=== PATIENT | female | born 1935 | race Caucasian/White ===

== ENCOUNTER 2024-12-27 10:02 | Inpatient (IN) | payer MEDICARE, SELFPAY ==
[2024-12-27] VITALS (14 sets, daily range): BP systolic 104–137; BP diastolic 54–86; PULSE 70–102; RESP 17–73; TEMP 36.1–36.8; O2SAT 73–100; BMI 39.1
--- NOTE | 2024-12-27 10:32 | PC.NURSE ---
PT ARRIVED BY AMBULANCE WITH C/O ALTERED UPON WAKING AT 0600 TODAY. WAS NORMAL LAST NIGHT AT 2300 PER MEDIC. PT RESPONDING ONLY TO PAIN AT THIS TIME. TURNED SIDE TO SIDE TO STRAIGHTEN LINEN, NO SKIN BREAKDOWN NOTED ON BACK/BUTTOCKS.
--- NOTE | 2024-12-27 10:45 | PC.NURSE ---
DR. FLYNN IN TO SEE PT.
--- NOTE | 2024-12-27 10:48 | EKG_ITS ---
[facility] Test Date: 2024-12-27 Pat Name: SHAN SLAUGHTER Department: Room: - Gender: Female [employer] Bi Developer: : [id number] Requested By: Sanchez Arthur Order Number: [id number] Reading MD: Sanchez Arthur Measurements Intervals [place] Rate: 83 P: 19 MO: 133 QRS: 33 QRSD: 128 T: -13 QT: 405 QTc: 478 Interpretive Statements SINUS RHYTHM WITH OCCASIONAL SUPRAVENTRICULAR PREMATURE COMPLEXES RIGHT BUNDLE BRANCH BLOCK [120+ ms QRS DURATION, UPRIGHT V1, 40+ ms S IN I/aVL/V4/V5/V6] Compared to ECG 02/18/2024 11:43:29 No significant changes /store/S0/[id number]/ecg/[id number].pdf
--- NOTE | 2024-12-27 10:48 | XR_ITS ---
Examination: AP chest single view TECHNIQUE: Portable AP sitting chest single view Date and time: December 27, 2024 11:45 AM, comparison March 19, 2024 INDICATIONS: Coughing beginning 3 days ago. FINDINGS: Cvug-he-dlufhbut heart failure Mild enlargement cardiac contour with prominent vascular congestion and perihilar edema Consider superimposed pneumonia both lungs Prominent osteopenia IMPRESSION: Taev-al-loyjchdz heart failure Consider superimposed pneumonia in both lungs
--- NOTE | 2024-12-27 10:48 | XR_ITS ---
Examination: CT brain head without contrast. 2-D sagittal coronal reconstructions Date and time of exam:December 27, 2024, 11:12 AM Comparison March 19, 2024 INDICATIONS: Altered mental status today CTDI: vol (mGy):53.5 DLP: (mGycm):1036 Technique: Multiple CT axial sections of the brain have been obtained, 5 mm slice thickness. Contrast has not been administered. 2-D sagittal, coronal reconstructions have been obtained Low dose protocols were performed. One or more of the following dose reduction techniques were used; automated exposure control, adjustment of the mA and/or KV according to patient size, use of iterative reconstruction technique. Findings: No significant ventricular enlargement. Intra-axial or extra-axial hemorrhage density is not seen. No mass effect or midline shift Basal cisterns are not remarkable. Fourth ventricle is midline. Cranial vault intact. Chronic right maxillary sinusitis Impression: Negative for acute hemorrhage, mass effect or midline shift Advise clinical correlation and follow-up accordingly
--- NOTE | 2024-12-27 11:07 | PD.EDADULT ---
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 Patient's daughter reported to the EMS that patient was found altered this morning at 6 AM. EMS reported that GCS was 11 and patient was hypoxic as low as around 85% and was placed on 6 L nasal cannula. Patient uses oxygen & BIPAP at home. Patient ambulates with walker and is AO x 3 at baseline. Patient was coughing during examination. Limited history could be taken due to altered mentation and no family at the bedside currently. She has been using vaginal estrogen cream for atrophic vaginitis.Urine appeared cloudy while performing straight cath. Of note, patient was discharged from the hospital in March 2024 after management of acute encephalopathy due to UTI. Called Jg Coffman to ask for further hx. she was hard to awake this morning and trouble recognizing her care givers. she chewed her medicine which is unusual for her last night. She can walk with walker. Per RN, blood glucose was 245. Per chart review: Pmx As above Psx Cholecystectomy, right lumpectomy,distal tonsilectomy, stones removed in 2018 FH intestinal cancer SH Non-smoker, no drinking or alcohol. lives at home with daughter. Emergency person to contact Jg Coffman [phone] Allergies zinc,iodine, sulfa, cefuroxime causes facial swelling Home medications: Levothyroxine 100 mcg once daily, methenamine hippurate 100 mg twice daily, Aspirin 81 mg once a day, vit c 500 mg BID, omeprazole 40 mg once a day, venlafaxine 150 mg, rosuvastatin 5 mg diclofenic sodium topical , lasix 40 mg once a day, metformin 500 mg 2 tabs BID, metoprolol succ er 25 mg once daily, norco 10-325 mg bid as needed,pramipexole 0.25 mg 2 tabs at 10 pm for restless legs Vitals revealed blood pressure 104/54, pulse 74, respiratory rate 17. Rectal temperature was 98.1. Patient saturating 100% on 6 L NC. We ordered 1 L bolus of LR, Zosyn 3.375 g x 1. Stat labs including CBC, CMP, magnesium, phosphorus, lactic acid, chest x-ray, urinalysis, U tox, troponin I, ammonia, ABGs, CT head without contrast, CT chest abdomen pelvis with contrast, chest x-ray along with blood cultures and urine cultures. Will keep the patient n.p.o. and do aspiration precautions. Ordered bedside COVID and flu test with MRSA screen. Differentials include Acute encephalopathy, infection related to pneumonia versus UTI, heart failure exacebration 12:19 patient's caregiver Carrie informed that patient was having trouble breathing last night and has been drinking a lot of water from past couple of days. She denied that patient ever had COVID or flu vaccine. COVID and flu test were negative. She has been feeling nauseous and has been coughing from past couple of days. She stated that she does not had a bowel movement over the weekend. Per caregiver, she did not notice any fever, chills, chest pain, burning in the urine. ABGs revealed pH 7.35, pCO2 75 chronic CO2 retainer, pO2 152, bicarb 41. Chemistry panel was significant for borderline hyperkalemia potassium 5.1, chloride 94, bicarb >40 likely compensatory metabolic alkalosis due to chronic CO2 retention, mild STEVE with BUN 38 and creatinine 1.6, baseline creatinine 0.9. Blood glucose 244, lactic acidosis lactic acid 2.3, phosphorus 2.3 liver enzymes unremarkable. Troponin I was negative. Procalcitonin 0.27. U tox positive for opiates. BNP pending. We ordered breathing treatment and Lasix 40 mg IV x [address] was negative for acute changes. CT chest was significant for pulmonary artery hypertension, mild to moderate heart failure, superimposed bacterial pneumonia and liver cirrhosis with atrophic right kidney staghorn calculi no hydronephrosis. Chest x-ray was significant for mild to moderate heart failure with superimposed pneumonia. EKG showed sinus rhythm with QTc 478 with RBBB.White count 9.9, hemoglobin 10.4. Blood count 53. Urinalysis is consistent with UTI. Patient most likely has acute encephalopathy like related to infection/community-acquired pneumonia and CO2 retention. She was also found to have STEVE with borderline hyperkalemia,hypophosphatemia and lactic acidosis. She will need to be admitted to the hospital for further evaluation and management. 12:43 Discussed case with interrelated special education teacher hospitalist team regarding admission. Discussed patient's ED course, exam findings, labs and radiology results. Hospitalist team agreed to accept the patient for admission. MD complaint: AMS Onset (ago): day(s) (6:00 AM ) Associated symptoms: confusion, cough and shortness of breath Related Data Home Medications ?Medication ?Instructions ?Recorded ?Confirmed levothyroxine 75 mcg tablet 100 mcg PO QAM 04/18/20 03/19/24 methenamine hippurate 1 gram tablet 1 g PO BID 04/18/20 03/19/24 omeprazole 40 mg capsule,delayed 40 mg PO QDAY 06/04/21 03/19/24 release rosuvastatin 5 mg tablet 5 mg PO HS 06/04/21 03/19/24 venlafaxine 150 mg 150 mg PO HS 06/04/21 03/19/24 capsule,extended release 24 hr furosemide 40 mg tablet 40 mg PO QAM 08/27/22 03/19/24 ascorbic acid (vitamin C) 500 mg 500 mg PO BID 03/19/24 03/19/24 tablet (Vitamin C) aspirin 81 mg tablet 81 mg PO QDAY 03/19/24 03/19/24 diclofenac sodium 1 % topical gel 2 g topical QID 03/19/24 03/19/24 magnesium 500 mg tablet 500 mg PO QDAY 03/19/24 03/19/24 Previous Rx's ?Medication ?Instructions ?Recorded estradiol 10 mcg vaginal insert See Rx Instructions .Route 03/22/24 (Imvexxy Maintenance Pack) .COMPLEX #8 inserts clonazepam 0.5 mg tablet 0.5 mg PO HS #14 tabs 03/25/24 metoprolol succinate 25 mg 25 mg PO QDAY #30 tabs 03/25/24 tablet,extended release 24 hr Allergies Allergy/AdvReac Type Severity Reaction Status Date / Time cefuroxime Allergy Intermediate Swelling Verified 12/27/24 11:13 of Lip/Tongue/Throat zinc Allergy Intermediate Rash Verified 12/27/24 11:13 iodine Allergy Unknown Verified 12/27/24 11:13 shellfish derived Allergy Unknown Verified 12/27/24 11:13 Sulfa (Sulfonamide Allergy Unknown Verified 12/27/24 11:13 Antibiotics) Review of Systems Review of Systems Systems Reviewed: All systems reviewed, normal except as documented Past Medical History Past Medical History CARDIAC: Positive Cardiac Disorders, Coronary Artery Disease, Hypercholesterolemia and Hypertension RESPIRATORY: Positive Pulmonary Fibrosis GASTROINTESTINAL: Positive Gastrointestinal Disorders, Gall Bladder Disease, Gastroesophageal Reflux Disease and Obesity GENITOURINARY: Positive Genitourinary Disorders and Kidney Stones REPRODUCTIVE: Positive Breast Cancer MUSCULOSKELETAL: Positive Musculoskeletal Disorders ENDOCRINE: Positive Endocrine Disorders and Hypothyroidism PSYCHO/SOCIAL: Positive Depression and Anxiety OTHER HISTORY: Positive Cancer and Breast Cancer Family History FAMILY HISTORY: Positive Family Cancer; Negative Family Psychiatric Problems, Family Respiratory Disorders, Family Cardiac Disorders, Family Gastrointestinal Problems, Family Surgery or Family Anesthesia Reaction Surgical History SURGICAL: Positive Tonsillectomy, Abdominal Surgery and Lumpectomy; Negative Cardiac Surgery, Open Heart Surgery, Coronary Artery Bypass Graft, Valve Replacement, Vascular Surgery, Coronary Stent, Cardiac Catheterization, Pacemaker, Angiogram, Auto Implanted Cardiovert Defib, Carotid Endarterectomy, Endocrine Surgery, Thyroidectomy, Ear Surgery, Tympanostomy Tube, Eye Surgery, Nose Surgery, Oral Surgery, Adenoidectomy, Cochlear Implant, Corneal Transplant, Throat Surgery, Tracheostomy, Gastric Bypass Surgery, Gastrostomy, Bowel Surgery, Nephrectomy, Transurethral Resection, Joint Replacement, Amputation, Open Reduction Internal Fixation, Arthroscopy, Neurologic Surgery, Brain Shunt, Mastectomy, Hysterectomy, Tubal Ligation or Section Social History SMOKING STATUS: Never smoker SECOND HAND EXPOSURE: No ED Exam Narrative Physical exam: GENERAL APPEARANCE: Patient is altered opening eyes sponataneously.GCS 11. baseline AOx3 .Sat well on 6 L NC HEENT: NC, AT. Dry mucus membrane. EOMI, clear conjunctiva, oropharynx clear. NECK: Supple without lymphadenopathy. No stiffness or restricted ROM. HEART: Regular rate and regular rhythm, normal S1/S2, no m/r/g LUNGS: B/L dec BS on bases without wheezing ABDOMEN: Soft, nontender, nondistended with good bowel sounds heard. BACK: No CVAT, no obvious deformity. EXTREMITIES: Without cyanosis, clubbing or edema. NEUROLOGICAL: Grossly nonfocal. She is altered GCS 11. CN not formally tested but appear grossly intact. ambulates with walker Skin: Warm and dry without any rash. 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 Vitals revealed blood pressure 104/54, pulse 74, respiratory rate 17. Rectal temperature was 98.1. Patient saturating 100% on 6 L NC. We ordered 1 L bolus of LR, Zosyn 3.375 g x 1. Stat labs including CBC, CMP, magnesium, phosphorus, lactic acid, chest x-ray, urinalysis, U tox, troponin I, ammonia, ABGs, CT head without contrast, CT chest abdomen pelvis with contrast, chest x-ray along with blood cultures and urine cultures. Will keep the patient n.p.o. and do aspiration precautions. Ordered bedside COVID and flu test with MRSA screen. Differentials include Acute encephalopathy, infection related to pneumonia versus UTI, heart failure exacebration 12:19 patient's caregiver Carrie informed that patient was having trouble breathing last night and has been drinking a lot of water from past couple of days. She denied that patient ever had COVID or flu vaccine. COVID and flu test were negative. She has been feeling nauseous and has been coughing from past couple of days. She stated that she does not had a bowel movement over the weekend. Per caregiver, she did not notice any fever, chills, chest pain, burning in the urine. ABGs revealed pH 7.35, pCO2 75 chronic CO2 retainer, pO2 152, bicarb 41. Chemistry panel was significant for borderline hyperkalemia potassium 5.1, chloride 94, bicarb >40 likely compensatory metabolic alkalosis due to chronic CO2 retention, mild STEVE with BUN 38 and creatinine 1.6, baseline creatinine 0.9. Blood glucose 244, lactic acidosis lactic acid 2.3, phosphorus 2.3 liver enzymes unremarkable. Troponin I was negative. Procalcitonin 0.27. U tox positive for opiates. BNP pending. We ordered breathing treatment and Lasix 40 mg IV x [address] was negative for acute changes. CT chest was significant for pulmonary artery hypertension, mild to moderate heart failure, superimposed bacterial pneumonia and liver cirrhosis with atrophic right kidney staghorn calculi no hydronephrosis. Chest x-ray was significant for mild to moderate heart failure with superimposed pneumonia. EKG showed sinus rhythm with QTc 478 with RBBB.White count 9.9, hemoglobin 10.4. Blood count 53. Urinalysis is consistent with UTI. Patient most likely has acute encephalopathy like related to infection/community-acquired pneumonia and CO2 retention. She was also found to have STEVE with borderline hyperkalemia,hypophosphatemia and lactic acidosis. She will need to be admitted to the hospital for further evaluation and management. 12:43 Discussed case with interrelated special education teacher hospitalist team regarding admission. Discussed patient's ED course, exam findings, labs and radiology results. Hospitalist team agreed to accept the patient for admission. Quality Measures none Orders Category Date Time Status Aspiration precautions ONCE Care 12/27/24 10:52 Active Bedside COVID-19 Antigen Test NOW Care 12/27/24 11:16 Active Bedside Influenza A&B Antigen Test NOW Care 12/27/24 11:17 Completed COVID-19 Screening Questionnaire NOW Care 12/27/24 12:19 Active Bridge Builder Q4H START 00 Care 12/27/24 11:18 Active Decision to Admit X1 Care 12/27/24 12:19 Active EKG (ED ONLY) *Do not use* NOW Care 12/27/24 10:49 Completed [place] Routine Care 12/27/24 11:18 Ordered In and Out Catheter X1 Care 12/27/24 11:18 Completed Insert IV NOW Care 12/27/24 11:14 Completed NPO NOW Care 12/27/24 10:52 Active Strict Intake and Output Routine Care 12/27/24 10:50 Ordered Diet NPO (NOW) Diet 12/27/24 10:[address] chest abdomen pelvis wo Stat Exams 12/27/24 11:[address] head/brain wo con Stat Exams 12/27/24 10:48 Completed CXRP [XR chest 1V portable] Stat Exams 12/27/24 10:48 Completed EKG (ED Only) Stat Exams 12/27/24 10:48 Draft ABG [Arterial Blood Gas] Stat Lab 12/27/24 11:45 Completed Ammonia Stat Lab 12/27/24 11:00 Completed BNP [B-Type Natriuretic Peptide] Stat Lab 12/27/24 11:00 Completed Blood Culture (Lab) Stat Lab 12/27/24 11:00 Received CBC Stat Lab 12/27/24 11:00 Completed CMP [Comprehensive Metabolic Panel] Stat Lab 12/27/24 11:00 Completed Drug Screen,Urine Stat Lab 12/27/24 10:50 Completed INR [Prothrombin Time with INR] Stat Lab 12/27/24 11:00 Completed Lactate (Lactic Acid) Stat Lab 12/27/24 11:00 Results MRSA Nasal Screen Stat Lab 12/27/24 11:17 Ordered Mag [Magnesium] Stat Lab 12/27/24 11:00 Completed PTT [Partial Thromboplastin Time] Stat Lab 12/27/24 11:00 Completed Phosphorous Stat Lab 12/27/24 11:00 Completed Procalcitonin Stat Lab 12/27/24 11:00 Completed Troponin I Stat Lab 12/27/24 11:00 Completed Urinalysis Stat Lab 12/27/24 10:50 Completed Urine Culture Stat Lab 12/27/24 10:50 Received Albuterol/Ipratr Rt Sravani [Duoneb Rt Sravani] Med 12/27/24 11:54 Discontinued 3 ml INH X1 ONE Furosemide Inj [Lasix Inj] Med 12/27/24 12:18 Discontinued 40 mg IVP X1 ONE Ondansetron Inj [Zofran Inj] Med 12/27/24 12:27 Discontinued 4 mg IV X1 ONE Piper/Tazo 3.375 gm Premix [Zosyn] Med 12/27/24 11:11 Discontinued 3.375 gm in 50 ml IV X1 Ringers Lactated 1000 ml [Lactated Ringers] 1,000 ml Med 12/27/24 11:09 Discontinued IV 999 mls/hr Oxygen Delivery NOW RT 12/27/24 10:48 Active Vital Signs Vital signs: Vital Signs Temperature 98.1 F 12/27/24 10:09 Pulse Rate 74 12/27/24 10:09 Respiratory Rate 17 12/27/24 10:09 Blood Pressure 104/54 L 12/27/24 10:09 Pulse Oximetry (%) 100 12/27/24 10:09 Oxygen Delivery Method Nasal Cannula 12/27/24 10:09 Oxygen Flow Rate 6 12/27/24 10:09 Discharge Plan Plan Patient Disposition: Admit Acute Care w/in Hospital Prescriptions/Referrals Prescriptions/Med Rec: No Action levothyroxine 75 mcg Tablet 100 mcg PO QAM Rx Instructions: pt now taking 100 MCG methenamine hippurate 1 gram tablet 1 g PO BID Patient Comments: TAKE 1 TABLET BY MOUTH TWICE A DAY WITH 500 MG OF VITAMIN C Rx Instructions: TAKE 1 TABLET BY MOUTH TWICE A DAY WITH 500 MG OF VITAMIN C venlafaxine 150 mg capsule,extended release 24hr 150 mg PO HS omeprazole 40 mg Capsule,Delayed Release(Dr/Ec) 40 mg PO QDAY rosuvastatin 5 mg Tablet 5 mg PO HS aspirin 81 mg Tablet 81 mg PO QDAY ascorbic acid (vitamin C) [Vitamin C] 500 mg Tablet 500 mg PO BID diclofenac sodium 1 % Gel 2 g TOPICAL QID Rx Instructions: apply to single elbow, wrist or hand; for hand includes palm/fingers/back of hand magnesium 500 mg Tablet 500 mg PO QDAY Imvexxy Maintenance Pack 10 mcg insert See Rx Instructions .ROUTE .COMPLEX Qty: 8 4RF Rx Instructions: 10 mcg Insert 1 tablet intravaginally daily for 2 weeks, followed by twice weekly. metoprolol succinate 25 mg Tablet Extended Release 24 Hr 25 mg PO QDAY Qty: 30 0RF clonazepam 0.5 mg tablet 0.5 mg PO HS Qty: 14 0RF furosemide 40 mg tablet 40 mg PO QAM Patient Comments: TAKE 1 TABLET BY MOUTH EVERY DAY IN THE MORNING Problem List Clinical Impression: Altered mental status, Acute dyspnea, Community acquired pneumonia Patient/Caregiver Discharge Instructions Print Language: Tamazight Stand Alone Forms: [employer] Award Info., Patient Portal Info Letter MDM Narrative MDM hospital course (for use when minimal MDM required): This patient is a 89-year-old female with past medical history of kidney stones, chronic constipation, hypothyroidism, 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 Vitals revealed blood pressure 104/54, pulse 74, respiratory rate 17. Rectal temperature was 98.1. Patient saturating 100% on 6 L NC. We ordered 1 L bolus of LR, Zosyn 3.375 g x 1. Stat labs including CBC, CMP, magnesium, phosphorus, lactic acid, chest x-ray, urinalysis, U tox, troponin I, ammonia, ABGs, CT head without contrast, CT chest abdomen pelvis with contrast, chest x-ray along with blood cultures and urine cultures. Will keep the patient n.p.o. and do aspiration precautions. Ordered bedside COVID and flu test with MRSA screen. Differentials include Acute encephalopathy, infection related to pneumonia versus UTI, heart failure exacebration 12:19 patient's caregiver Carrie informed that patient was having trouble breathing last night and has been drinking a lot of water from past couple of days. She denied that patient ever had COVID or flu vaccine. COVID and flu test were negative. She has been feeling nauseous and has been coughing from past couple of days. She stated that she does not had a bowel movement over the weekend. Per caregiver, she did not notice any fever, chills, chest pain, burning in the urine. ABGs revealed pH 7.35, pCO2 75 chronic CO2 retainer, pO2 152, bicarb 41. Chemistry panel was significant for borderline hyperkalemia potassium 5.1, chloride 94, bicarb >40 likely compensatory metabolic alkalosis due to chronic CO2 retention, mild STEVE with BUN 38 and creatinine 1.6, baseline creatinine 0.9. Blood glucose 244, lactic acidosis lactic acid 2.3, phosphorus 2.3 liver enzymes unremarkable. Troponin I was negative. Procalcitonin 0.27. U tox positive for opiates. BNP pending. We ordered breathing treatment and Lasix 40 mg IV x [address] was negative for acute changes. CT chest was significant for pulmonary artery hypertension, mild to moderate heart failure, superimposed bacterial pneumonia and liver cirrhosis with atrophic right kidney staghorn calculi no hydronephrosis. Chest x-ray was significant for mild to moderate heart failure with superimposed pneumonia. EKG showed sinus rhythm with QTc 478 with RBBB.White count 9.9, hemoglobin 10.4. Blood count 53. Urinalysis is consistent with UTI. Patient most likely has acute encephalopathy like related to infection/community-acquired pneumonia and CO2 retention. She was also found to have STEVE with borderline hyperkalemia,hypophosphatemia and lactic acidosis. She will need to be admitted to the hospital for further evaluation and management. 12:43 Discussed case with interrelated special education teacher hospitalist team regarding admission. Discussed patient's ED course, exam findings, labs and radiology results. Hospitalist team agreed to accept the patient for admission. Medication Administration(s) Medication Administration History Discontinued Medications Albuterol/Ipratropium (Albuterol/Ipratropium (Duoneb) Rt Sravani 3 Ml Nebu) 3 ml INH X1 ONE Stop: 12/27/24 11:55 Last Admin: 12/27/24 12:34 Dose: 3 ml Documented By: JOSSY Furosemide (Furosemide Inj 10 Mg/Ml 4ml Vial) 40 mg IVP X1 ONE Stop: 12/27/24 12:19 Last Admin: 12/27/24 12:33 Dose: 40 mg Documented By: KENYA Lactated Ringer's (Lactated Ringers) 1,000 mls @ 999 mls/hr IV .Q1H1M ONE Stop: 12/27/24 12:09 Last Admin: 12/27/24 12:48 Dose: Not Given Documented By: NAKUL Non-Admin Reason: Cancelled by Provider Piperacillin/Tazobactam/Dextrose (Zosyn) 3.375 gm in 50 mls @ 100 mls/hr IV X1 ONE Stop: 12/27/24 11:40 Last Infusion: 12/27/24 12:55 Dose: Infused Documented By: Admin: 12/27/24 12:20 Dose: 100 mls/hr Documented By: KENYA Ondansetron HCl (Ondansetron Inj 2 Mg/Ml Inj 2 Ml) 4 mg IV X1 ONE; Protocol Stop: 12/27/24 12:28 Diagnosis Differential Diagnosis ED Complaint MDM: Acute enceph, infection related to pneumonia vs UTI, heart fail, Pulm HTN
[2024-12-27 11:15] LABS: Lactate (Lactic Acid) 2.3 mMol/L (0.4-2.0)
[2024-12-27 11:19] LABS: Collection Type, Urine Clean Catch
--- NOTE | 2024-12-27 11:21 | XR_ITS ---
Examination: CT chest, without intravenous contrast. CT abdomen, without intravenous contrast. CT pelvis, without intravenous contrast. 2-D sagittal and coronal reconstructions. 3-D reconstructions. Date and time of exam:December 27, 2024 1123 hours, comparison made 2022 INDICATIONS: Altered mental status, nonresponsive today, coughing 3 days CTDI vol (mgy) 20 DLP (MGycm)[id number] Technique: Multiple CT images, 3.0 mm slice thickness, obtained chest, abdomen, pelvis, with the high-resolution 64 slice scanner.. Sagittal and coronal 2-D reconstructions are obtained. 3-D reconstructions Low dose protocols were performed. One or more of the following dose reduction techniques were used; automated exposure control, adjustment of the mA and/or KV according to patient size, use of iterative reconstruction technique. Findings: Thoracic aortic calcification no aneurysmal dilatation Enlargement main pulmonary artery segment 39 mm Moderate calcification left anterior descending coronary artery Prominent vascular congestion with perihilar edema and likely superimposed bilateral pneumonia No visualized liver or splenic lesions Liver is irregular in contour, absent gallbladder No pancreatic or adrenal mass Atrophic right kidney with renal cortical thinning and multiple staghorn right renal calculi No hydronephrosis or ureteral calculi Aortic calcification no aneurysmal dilatation No pericecal inflammatory change Colonic diverticulosis, no diverticulitis Contracted urinary bladder Severe osteopenia IMPRESSION: Pulmonary artery hypertension Mild to moderate heart failure Superimposed bilateral pneumonia 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
[2024-12-27 11:36] LABS: Ammonia 18 uMol/L (11-32); Basophils % (Auto) 0 % (0-2.5); Eosinophils # (Auto) 0.5 Thou/mm3 (0.0-0.5); Eosinophils % (Auto) 5 % (0-10); Hematocrit 33.8 % (36.0-46.0); Hemoglobin 10.4 g/dL (12.0-16.0); Immature Granulocytes % (Auto) 2 % (0-0); Immature Granulocytes Auto 0.22 Thou/mm3 (0.00-0.00); Lymphocytes # (Auto) 1.3 Thou/mm3 (1.0-4.8); Lymphocytes % (Auto) 13 % (10-50); Mean Corpuscular HGB Conc 30.8 g/dl (31.0-37.0); Mean Corpuscular Hemoglobin 29.1 pg (25.0-35.0); Mean Corpuscular Volume 94 fL (80-100); Monocytes # (Auto) 0.9 Thou/mm3 (0.0-0.8); Monocytes % (Auto) 9 % (0-12); Neutrophils # (Auto) 6.9 Thou/mm3 (1.8-7.7); Neutrophils % (Auto) 70 % (37-80); Nucleated Red Blood Cell # 0.02 Thou/mm3 (0.00-0.00); Nucleated Red Blood Cell % 0 /100 WBC (0); Platelet Count 253 Thou/mm3 (140-440); RDW Standard Deviation 52.1 fL (36.4-46.3); Red Blood Count 3.58 Miln/mm3 (4.00-5.20); White Blood Count 9.9 Thou/mm3 (3.6-11.0)
[2024-12-27 11:49] LABS: Base Excess 13 (-3-3); HCO3 41 mEq/L (20-26); Inspired O2, VO2 Liters 6 L/min; O2 Saturation 100 % (91-98); PCO2 75 mmHg (32.0-48.0); PO2 152 mmHg (83-108); pH, Arterial 7.35 (7.35-7.45)
[2024-12-27 11:49] LABS: Amphetamine/Methamp Scrn,U Negative (Negative); Barbiturate Screen,Urine Negative (Negative); Benzodiazepines Screen,Urine Negative (Negative); Benzoylecgonine Screen, Ur Negative (Negative); Fentanyl Screen,Urine Negative (Negative); Opiate Screen,Urine Positive (Negative); THC Screen,Urine Negative (Negative)
[2024-12-27 11:50] LABS: Allen Test Performed/OK; Puncture Site Right Radial
[2024-12-27 11:50] LABS: Alanine Aminotransferase 18 U/L (10-49); Albumin, Serum 4.1 gm/dL (3.4-4.8); Albumin/Globulin Ratio 1.5 (1.2-2.2); Alkaline Phosphatase 65 U/L (46-116); Anion Gap 3 (7-16); Aspartate Amino Transferase 22 U/L (0-34); BUN/Creatinine Ratio 24 Ratio (12-20); Bilirubin,Total < 0.2 mg/dL (0.3-1.2); Blood Urea Nitrogen 38 mg/dL (9-23); Calcium 9.9 mg/dL (8.3-10.6); Calcium (Corrected) 9.9 mg/dL (8.5-10.1); Carbon Dioxide > 40.0 mMol/L (20.0-31.0); Chloride 94 mMol/L (98-107); Creatinine (Component) 1.6 mg/dL (0.6-1.3); Estimated Creatinine Clearance 31.6 mL/min (>60); Globulin 2.8 gm/dL (2.3-3.5); Glucose 244 mg/dL (74-106); Magnesium 2.4 mg/dL (1.6-2.6); Osmolality,Calculated 290 (275-295); Phosphorous 2.3 mg/dL (2.4-5.1); Potassium 5.1 mMol/L (3.4-5.1); Procalcitonin 0.27 ng/ml (0.0-0.49); Sodium 137 mMol/L (136-145); Total Protein 6.9 gm/dL (5.7-8.2); Troponin I < 0.020 ng/mL (0.0-0.045); eGFR 31 See Note
[2024-12-27] MEDS: PIPER/TAZO 3.375 GM PREMIX 3.375 GM/50 ML BAG IV (12:20)
[2024-12-27] MEDS: FUROSEMIDE INJ 10 MG/ML 4ML VIAL 40 MG IVP (12:33)
[2024-12-27] MEDS: ALBUTEROL/IPRATROPIUM (Duoneb) RT SOL 3 ML NEBU INH (12:34)
[2024-12-27 12:48] LABS: Bacteria,Urine 2+; Bilirubin,Urine Negative (Negative); Blood,Urine 1+ (Negative); Color,Urine Yellow (Lt Yel-Yel); Glucose, Urine Negative (Negative); Ketones,Urine Negative (Negative); Leukocyte Esterase,Urine Positive (Negative); Nitrite,Urine Positive (Negative); Protein,Urine 1+ (Neg - Trace); RBC,Urine 32 /hpf (0-3); Specific Gravity,Urine 1.022 (1.001-1.035); Squamous Epithelial Cell,Urine 56 /hpf (0-5); Transitional Epi Cells,Urine 6 /hpf (0-5); Urobilinogen,Urine Negative mg/dL (0.0-1.0); WBC,Urine 695 /hpf (0-5)
[2024-12-27 12:55] LABS: INR 0.9 (0.9-1.3); Partial Thromboplastin Time 23.1 Seconds (22.0-36.0); Prothrombin Time 10.2 Seconds (9.0-12.2)
--- NOTE | 2024-12-27 12:55 | PC.NURSE ---
PT'S NEPHEW IN ROOM AND DR. FLYNN INFORMED
[2024-12-27 13:08] LABS: B-Type Natriuretic Peptide 70 pg/mL (0-100)
[2024-12-27 13:11] LABS: Clarity,Urine Turbid (Clear/Hazy)
--- NOTE | 2024-12-27 13:38 | PD.RESHP ---
Documentation for date of: 12/27/24 [facility] History of Present Illness Chief complaint: Altered mental status History of present illness: 89-year-old female with past medical history of hypothyroidism, recurrence UTIs, COPD with CPAP use at night and 2 L during the day, right breast cancer status postlumpectomy, chronic back pain, type 2 diabetes, GERD, depression, pulmonary arterial hypertension, HFpEF with grade 1 diastolic dysfunction presenting to the ED on 12/27 with altered mental status. Patient awakens on verbal command by opening eyes; however, unable to understand exactly what she is saying. Patient's nephew Jg, who is her medical decision-maker, is bedside and provided some history. Per nephew, patient lives alone and has 24-hour care for about 7 years now secondary to difficulty ambulating from chronic back pain. Patient apparently has been at her normal baseline, talking and recognizing family members; however, this morning she was completely different and not answering and not recognizing her family's questions. Nephew denies any previous history of sick contacts, recent illness, fever/chills that the patient was reporting prior to this presentation. Medical history: As stated above Surgical history: Unknown at this time Allergies: Cefuroxime causes angioedema, zinc causes rash, iodine, shellfish, sulfa Medications: Pending official med rec Pending history: Noncontributory Social history: Patient lives alone, 24-hour care for 7 years, denies any tobacco/alcohol or illicit drug use. ROS: Unable to assess at this time due to patient's mental status In the ED, patient presented somnolent with blood pressure 104/54, heart rate 74, respiratory 17, afebrile satting 100 on 6 nasal cannula. Pertinent findings include WBC 9.9, hemoglobin 10.4 ABG shows pH of 7.35 with PCO2 of 75, pO2 of 152 and bicarb of 41, creatinine 1.6, BUN 38 lactic acid 2.3, phosphorus 2.3, troponin less than 0.020, BNP 70 urine cultures will be reordered as it is a contaminated sample, U tox positive for opiates. Chest x-ray shows mild to moderate heart failure and superimposed pneumonia in both lungs, head CT with no acute findings, CTA chest/abdomen/pelvis shows PAH, mild to moderate heart failure, superimposed bilateral pneumonia, primary hepatocellular disease, atrophic right kidney with staghorn calculi but no hydronephrosis. EKG shows sinus rhythm with occasional supraventricular PVCs. Patient will be admitted for acute encephalopathy secondary to acute hypercapnic respiratory failure from pulmonary arterial hypertension versus congestive heart failure exacerbation and sepsis secondary to pneumonia and UTI. Exam Vital Signs Temp Pulse Resp BP Pulse Ox O2 Del Method O2 Flow Rate 98.3 F 79 18 129/66 100 Oxy Mask 6 12/27/24 10:40 12/27/24 12:33 12/27/24 11:00 12/27/24 12:33 12/27/24 11:20 12/27/24 11:00 12/27/24 11:20 Narrative Exam Physical Exam: GENERAL: Opens eyes on command, frail-appearing, obese, appears stated age HEENT: NC/AT. Moist mucosa. PERRLA CARDIO: Heart RRR, no obvious murmurs, no JVD. PULM: No coughing on BiPAP saturating 89-93. Lungs CTA B/L other than sporadic crackles GI: Abdomen soft, appears to be tender diffusely with patient grimacing, +BS. URO/BANNER PAINTER: +Queen catheter draining yellow urine SKIN/MSK/EXT: +1 pitting edema bilateral lower extremities up to shins. No wounds/discoloration/rashes/amputations noted. +Pedal pulses present B/L. NEURO: Oriented x0. GCS 10 E(3) V(2) M(5) Results: Labs 12/29/24 05:36 12/29/24 05:36 Labs: Short CBC 12/27/24 Range/Units 11:00 WBC 9.9 (3.6-11.0) Thou/mm3 Hgb 10.4 L (12.0-16.0) g/dL Hct 33.8 L (36.0-46.0) % Plt Count 253 (140-440) Thou/mm3 BMP 12/27/24 11:00 Sodium 137 Potassium 5.1 Chloride 94 L Carbon Dioxide > 40.0 H BUN 38 H Creatinine 1.6 H Glucose 244 H Calcium 9.9 Cardiac Enzymes 12/27/24 Range/Units 11:00 Troponin I < 0.020 (0.0-0.045) ng/mL Liver Function 12/27/24 Range/Units 11:00 Total Bilirubin < 0.2 L (0.3-1.2) mg/dL AST 22 (0-34) U/L ALT 18 (10-49) U/L Alkaline Phosphatase 65 (46-116) U/L Albumin 4.1 (3.4-4.8) gm/dL Urine 12/27/24 Range/Units 10:50 Urine Color Yellow (Lt Yel-Yel) Urine Clarity Turbid A (Clear/Hazy) Urine pH 6.0 (5.0-7.0) Ur Specific [place] 1.022 (1.001-1.035) Urine Protein 1+ A (Neg - Trace) Urine Glucose (UA) Negative (Negative) ABG Interpretation ABG results: 12/27/24 11:45 ABG pH 7.35 ABG pCO2 75 H* ABG pO2 152 H ABG HCO3 41 H ABG O2 Saturation 100 H ABG Base Excess 13 H Quality Measures Quality Measures none Advance care planning discussed with:: legal surragate (Patient's nephew, Jg Coffman) Medications Home Medications and Allergies Home Medications ?Medication ?Instructions ?Recorded ?Confirmed ?Type levothyroxine 75 mcg tablet 100 mcg PO QAM 04/18/20 12/27/24 History methenamine hippurate 1 gram tablet 1 g PO BID 04/18/20 12/27/24 History omeprazole 40 mg capsule,delayed 40 mg PO QDAY 06/04/21 12/27/24 History release rosuvastatin 5 mg tablet 10 mg PO HS 06/04/21 12/27/24 History venlafaxine 150 mg 150 mg PO HS 06/04/21 12/27/24 History capsule,extended release 24 hr furosemide 40 mg tablet 40 mg PO QAM 08/27/22 12/27/24 History ascorbic acid (vitamin C) 500 mg 500 mg PO BID 03/19/24 12/27/24 History tablet (Vitamin C) aspirin 81 mg tablet 81 mg PO QDAY 03/19/24 12/27/24 History diclofenac sodium 1 % topical gel 2 g topical QID 03/19/24 12/27/24 History magnesium 500 mg tablet 1,000 mg PO QDAY 03/19/24 12/27/24 History calcium 600 mg (as 0.5 tab PO BID 12/27/24 12/27/24 History carbonate)-vitamin D3 5 mcg (200 unit) tablet (Calcium 600 + D(3)) cranberry 500 mg capsule 1,000 mg PO QDAY 12/27/24 12/27/24 History glimepiride 2 mg tablet 2 mg PO BID 12/27/24 12/27/24 History hydrocodone 10 mg-acetaminophen 1 tab PO Q12H PRN pain 12/27/24 12/27/24 History 325 mg tablet lactobacillus comb no.10 20 20,000 mmu cells PO QDAY 12/27/24 12/27/24 History billion cell capsule (Probiotic) metformin 500 mg tablet 1,000 mg PO BID 12/27/24 12/27/24 History pramipexole 0.5 mg tablet 0.5 mg PO HS 12/27/24 12/27/24 History Allergies Allergy/AdvReac Type Severity Reaction Status Date / Time cefuroxime Allergy Intermediate Swelling Verified 12/27/24 11:13 of Lip/Tongue/Throat zinc Allergy Intermediate Rash Verified 12/27/24 11:13 iodine Allergy Unknown Verified 12/27/24 11:13 shellfish derived Allergy Unknown Verified 12/27/24 11:13 Sulfa (Sulfonamide Allergy Unknown Verified 12/27/24 11:13 Antibiotics) Visit Medications Acetaminophen (Acetaminophen 325 Mg Tablet) 650 mg PO Q6H PRN PRN Reason: Pain 1-3 and/or Fever >100.1 Stop: 01/26/25 13:30 Hydrocodone Bitart/Acetaminophen (Hydrocodone/Apap 10/325 Tab) 1 tab PO Q4HR PRN PRN Reason: PAIN SCALE 7-10 (Severe Stop: 01/01/25 13:36 Heparin Sodium (Porcine) (Heparin Sod Inj 5000 Unit/Ml Vial) 5,000 unit SC Q12HR LISETTE Stop: 01/10/25 20:59 Ondansetron HCl (Ondansetron Inj 2 Mg/Ml Inj 2 Ml) 4 mg IV Q6H PRN; Protocol PRN Reason: NAUSEA OR VOMITING Stop: 01/26/25 13:30 Oxycodone/Acetaminophen (Oxycodone/Apap 5/325 Tablet) 1 tab PO Q6H PRN PRN Reason: PAIN SCALE 4-6 (Moderate Stop: 01/01/25 13:36 Sennosides (Senna Tablet) 1 tab PO QDAY LISETTE; Protocol Stop: 01/27/25 08:59 Discontinued Medications Albuterol/Ipratropium (Albuterol/Ipratropium (Duoneb) Rt Sravani 3 Ml Nebu) 3 ml INH X1 ONE Stop: 12/27/24 11:55 Last Admin: 12/27/24 12:34 Dose: 3 ml Furosemide (Furosemide Inj 10 Mg/Ml 4ml Vial) 40 mg IVP X1 ONE Stop: 12/27/24 12:19 Last Admin: 12/27/24 12:33 Dose: 40 mg Lactated Ringer's (Lactated Ringers) 1,000 mls @ 999 mls/hr IV .Q1H1M ONE Stop: 12/27/24 12:09 Last Admin: 12/27/24 12:48 Dose: Not Given Piperacillin/Tazobactam/Dextrose (Zosyn) 3.375 gm in 50 mls @ 100 mls/hr IV X1 ONE Stop: 12/27/24 11:40 Last Infusion: 12/27/24 12:55 Dose: Infused Ondansetron HCl (Ondansetron Inj 2 Mg/Ml Inj 2 Ml) 4 mg IV X1 ONE; Protocol Stop: 12/27/24 12:28 Assessment & Plan Plan 89-year-old female with past medical history of hypothyroidism, recurrence UTIs, anxiety, right breast cancer status postlumpectomy, chronic back pain, type 2 diabetes, GERD, depression, pulmonary arterial hypertension, HFpEF with grade 1 diastolic dysfunction presenting to the ED with altered mental status will be admitted for acute encephalopathy secondary to acute hypercapnic respiratory failure from pulmonary arterial hypertension versus congestive heart failure exacerbation and sepsis secondary to pneumonia and UTI. #Acute encephalopathy secondary to hypercarbia As per HPI, patient presented with change in mental status from baseline on 12/27 Per patient's family, she did not exhibit any recent sick contacts, recent illnesses or fever/chills - patient had normal baseline day prior On examination, patient does open eyes to command and mumbles some words but is incomprehensible simple motor, localizes to pain Differential diagnosis at this time include: Hypercarbia induced acute encephalopathy versus TIA/stroke versus polypharmacy Head CT with no acute findings Plan: Continue BiPAP Speech/PT eval #Acute hypoxic/hypercapnic respiratory failure secondary to #COPD exacerbation #Acute congestive heart failure exacerbation? #History of grade 1 diastolic dysfunction #Pulmonary arterial hypertension As noted above, patient is on CPAP at night along with 2 L while awake ABG shows pH of 7.35 with PCO2 of 75, pO2 of 152 and bicarb of 41 Chest x-ray shows mild to moderate heart failure and superimposed pneumonia in both lungs CTA chest/abdomen/pelvis shows PAH, mild to moderate heart failure, superimposed bilateral pneumonia EKG shows sinus rhythm with occasional supraventricular PVCs. Patient given x1 IV Lasix 40mg and albuterol/ipratropium breathing treatment Patient is lactic acid increasing after diuretics Plan: 500 cc NS bolus Lactic acid every 2h Supplemental oxygen BIPAP HS ECHO ordered #Sepsis secondary to #UTI #Bilateral pneumonia Patient presenting with sepsis secondary to UTI and pneumonia WBC of 9.9, worsening lactic acidosis and signs of endorgan dysfunction with STEVE Given 3.375 of Zosyn in the ED Of note, patient has a recurrent history of UTIs with hospitalization for Pseudomonas UTI Urinalysis does show pyuria and bacteria; however, there is elevated number of squamous epithelial cells Plan: IV Zosyn 4.5 g every 8h to cover for Pseudomonas Repeat urinalysis Blood and urine cultures pending #STEVE on CKD stage IIIa Likely in the setting of sepsis versus possibly vascular congestion from CHF exacerbation? Per medical chart, patient does have waxing and waning kidney function with CKD stage III Plan: IV fluid resuscitation as above Avoid nephrotoxic Renally dose medications Will follow-up with morning labs #Type 2 diabetes, [id number] Last A1c on file7.4 in March 2024 Plan: Sliding scale insulin Hypoglycemic protocol Follow-up on morning A1c #Hypothyroidism Patient on home levothyroxine 100 mcg Plan: Restart home medication #Chronic back pain Patient mostly bedbound for the past 7 years or so; gets up to wheelchair at times [address] [place] [address] at home Plan: Multimodal analgesia #Right atrophic kidney, staghorn calculi #Primary hepatocellular disease As noted in above CT Plan: Follow-up outpatient Hospital Management: Lines: PIV Diet: N.p.o., pending speech referral Bowel: Senna GI prophylaxis: Protonix DVT prophylaxis: Heparin subcu Dispo: Pending echo, IV antibiotics for sepsis secondary to UTI/pneumonia, BiPAP for acute hypercapnic respiratory failure Code: DNR Patient seen and assessed with attending Dr. Carlos Lopez, PGY-1 Attending Provider Attestation/Addendum Kalyynn Núñez DO, attest that I was physically present for the mackenzie portions of the service and evaluated the patient with the resident and I reviewed and discussed the case with the resident and agree with the resident's findings and plans of care as documented above Patient is an 89-year-old female with past medical history of hypothyroid, recurrent UTIs, COPD, type 2 diabetes, GERD, chronic back pain pulmonary arterial hypertension who was brought to the ED by family due to worsening mental status. Patient was not arousable this morning by glassware maker demonstrator even with sternal rub. Patient was not following commands either. Patient has had previous admissions in the past for CO2 retention resulting in acute encephalopathy and requiring BiPAP. [employer] Consultant states that the patient wears her CPAP daily. Patient also suffers from frequent UTIs and is on methenamine outpatient. Workup in the ED shows mild to moderate heart failure with superimposed pneumonia in both lungs on chest x-ray. Head CT showed no acute findings. CTA of chest/abdomen/pelvis showed pulmonary arterial hypertension again with mild to moderate heart failure and pneumonia. She is also noted to have an atrophic right kidney with staghorn calculi. ABG was done showing 7.3 5/75/152 and bicarb 41. She has a mild STEVE with creatinine of 1.6. Patient was placed on BiPAP in the ED with some improvement in mental status. She is able to open her eyes and verbalize discomfort to tactile stimuli, but unable to follow commands. Will admit patient to telemetry for further workup and medical management of acute encephalopathy secondary to acute hypercapnic respiratory failure. Patient received 1 dose of Lasix in the ED due to finding of heart failure. However, patient does not appear overtly fluid overloaded. Will hold off on any fluids or diuretics at this time. Will obtain echocardiogram and obtain urine cultures. Will start patient on IV Zosyn for broad coverage of Pseudomonas as noted on previous urine cultures.
[2024-12-27 14:14] LABS: Reflex Lactate? Y
[2024-12-27] MEDS: SOD PHOS ADDITIVE 15 MMOL in SODIUM CHLORIDE 0.9% 250 ML 250 ML 62.5 MMOL IV (14:17)
[2024-12-27] MEDS: INSULIN LISPRO (AdmeLOG) 1 UNIT/0.01 ML UNIT SC (14:32)
[2024-12-27 15:10] LABS: Thyroid Stimulating Hormone 2.77 uIU/mL (0.55-4.78)
[2024-12-27] MEDS: SODIUM CHLORIDE 0.9% 500 ML 500 ML 999 ML IV (15:18)
[2024-12-27 16:35] LABS: Lactate (Lactic Acid) 3.5 mMol/L (0.4-2.0)
[2024-12-27 17:04] LABS: Reflex Lactate? Y
[2024-12-27 18:36] LABS: Lactic Acid, 3 HR 3.1 mMol/L (0.4-2.0)
[2024-12-27] MEDS: PIPER/TAZO INJ 4.5 GM in SODIUM CHLORIDE 0.9% (POP) 100 ML IV (18:40)
[2024-12-27 19:32] LABS: Reflex Lactate? Y
[2024-12-27 20:44] LABS: Lactic Acid, 3 HR 1.1 mMol/L (0.4-2.0)
[2024-12-27] MEDS: HEPARIN SOD INJ 5000 UNIT/ML VIAL SC (21:12)
[2024-12-27 23:38] LABS: Collection Type, Urine Catheter
[2024-12-27 23:56] LABS: Bacteria,Urine 2+; Bilirubin,Urine Negative (Negative); Blood,Urine Negative (Negative); Clarity,Urine Turbid (Clear/Hazy); Color,Urine Lt-Yellow (Lt Yel-Yel); Glucose, Urine Negative (Negative); Hyaline Casts,Urine < 1 /hpf (0-1); Ketones,Urine Negative (Negative); Leukocyte Esterase,Urine Positive (Negative); Nitrite,Urine Positive (Negative); PH,Urine 5.5 (5.0-7.0); Protein,Urine Negative (Neg - Trace); RBC,Urine 5 /hpf (0-3); Specific Gravity,Urine 1.016 (1.001-1.035); Squamous Epithelial Cell,Urine 2 /hpf (0-5); Urobilinogen,Urine Negative mg/dL (0.0-1.0); WBC,Urine 79 /hpf (0-5)
[2024-12-28] VITALS (12 sets, daily range): BP systolic 108–141; BP diastolic 59–78; PULSE 68–113; RESP 17–29; TEMP 36.1–36.7; O2SAT 95–100; BMI 34.8
[2024-12-28] MEDS: PIPER/TAZO INJ 4.5 GM in SODIUM CHLORIDE 0.9% (POP) 100 ML IV ×3 (05:24→21:21)
[2024-12-28 06:19] LABS: Basophils # (Auto) 0.1 Thou/mm3 (0.0-0.2); Basophils % (Auto) 1 % (0-2.5); Eosinophils # (Auto) 0.5 Thou/mm3 (0.0-0.5); Eosinophils % (Auto) 6 % (0-10); Hematocrit 32.9 % (36.0-46.0); Hemoglobin 10.1 g/dL (12.0-16.0); Immature Granulocytes % (Auto) 2 % (0-0); Immature Granulocytes Auto 0.14 Thou/mm3 (0.00-0.00); Lymphocytes # (Auto) 1.1 Thou/mm3 (1.0-4.8); Lymphocytes % (Auto) 13 % (10-50); Mean Corpuscular HGB Conc 30.7 g/dl (31.0-37.0); Mean Corpuscular Hemoglobin 29.4 pg (25.0-35.0); Mean Corpuscular Volume 96 fL (80-100); Monocytes # (Auto) 0.8 Thou/mm3 (0.0-0.8); Monocytes % (Auto) 10 % (0-12); Neutrophils # (Auto) 5.8 Thou/mm3 (1.8-7.7); Neutrophils % (Auto) 69 % (37-80); Nucleated Red Blood Cell % 0 /100 WBC (0); Platelet Count 226 Thou/mm3 (140-440); RDW Standard Deviation 54.3 fL (36.4-46.3); Red Blood Count 3.44 Miln/mm3 (4.00-5.20); White Blood Count 8.4 Thou/mm3 (3.6-11.0)
[2024-12-28 07:10] LABS: Alanine Aminotransferase 22 U/L (10-49); Albumin, Serum 3.7 gm/dL (3.4-4.8); Albumin/Globulin Ratio 1.4 (1.2-2.2); Alkaline Phosphatase 34 U/L (46-116); Anion Gap 9 (7-16); Aspartate Amino Transferase 64 U/L (0-34); BUN/Creatinine Ratio 25 Ratio (12-20); Bilirubin,Total 0.2 mg/dL (0.3-1.2); Blood Urea Nitrogen 38 mg/dL (9-23); Calcium 8.6 mg/dL (8.3-10.6); Calcium (Corrected) 8.8 mg/dL (8.5-10.1); Carbon Dioxide 36.5 mMol/L (20.0-31.0); Chloride 97 mMol/L (98-107); Creatinine (Component) 1.5 mg/dL (0.6-1.3); Estimated Creatinine Clearance 31.7 mL/min (>60); Globulin 2.6 gm/dL (2.3-3.5); Glucose 157 mg/dL (74-106); Magnesium 2.4 mg/dL (1.6-2.6); Osmolality,Calculated 295 (275-295); Phosphorous 3.9 mg/dL (2.4-5.1); Sodium 142 mMol/L (136-145); Total Protein 6.3 gm/dL (5.7-8.2); eGFR 33 See Note
[2024-12-28 07:12] LABS: Potassium 6.5 mMol/L (3.4-5.1)
[2024-12-28] MEDS: DEXTROSE 50%-WATER INJ 50 ML SYRINGE IV (07:46)
[2024-12-28 07:47] LABS: Glucose Estimated Average 154 mg/dL (80-131)
[2024-12-28] MEDS: INSULIN HUM REGULAR 1 UNIT/0.01 ML (PER UNIT) 10 UNIT IV (07:47)
[2024-12-28] MEDS: ALBUTEROL RT 2.5 MG/0.5 ML NEBU INH (07:48)
[2024-12-28 09:12] LABS: Albumin, Serum 3.7 gm/dL (3.4-4.8); Anion Gap 6 (7-16); BUN/Creatinine Ratio 23 Ratio (12-20); Blood Urea Nitrogen 37 mg/dL (9-23); Calcium 8.8 mg/dL (8.3-10.6); Chloride 98 mMol/L (98-107); Creatinine (Component) 1.6 mg/dL (0.6-1.3); Estimated Creatinine Clearance 29.7 mL/min (>60); Glucose 267 mg/dL (74-106); Osmolality,Calculated 300 (275-295); Phosphorous 3.4 mg/dL (2.4-5.1); Potassium 4.2 mMol/L (3.4-5.1); Sodium 142 mMol/L (136-145); eGFR 31 See Note
[2024-12-28] MEDS: PANTOPRAZOLE INJ 40 MG VIAL IVP (09:32)
[2024-12-28] MEDS: HEPARIN SOD INJ 5000 UNIT/ML VIAL SC ×2 (09:32→20:46)
[2024-12-28 10:25] LABS: Base Excess, Venous 14 (-3-3); O2 Saturation, Venous 74 % (96-97); PCO2, Venous 55 mmHg (36-56); PO2, Venous 36 mmHg (15-58); pH, Venous 7.47 (7.33-7.66)
--- NOTE | 2024-12-28 10:54 | PC.SS ---
SOLAR ENERGY SYSTEMS ENGINEER conducted bedside contact with the patient conduct initial assessment and to discuss discharge planning.? At bedside with patient was terrance Jg Augustus .? Information obtained from patient?s nephew.? Patient resides at home alone.? Patient possesses 24 hour caregiver services.? Patient utilizes a wheelchair for mobility.? Patient possesses home oxygen, 2L.? Patient utilizes C-PAP for nighttime use.? Patient requires assistance with completion of ADL?s.? Patient?s surrogate medical decision maker is Jg carlos.? Patient?s PCP is Beth Martínez.? Patient does not possess any specialty providers.? Patient utilizes [facility] for medication services.? Discharge plan is for the patient to transition home.? If home health recommended preferred agency is [facility].? deputy sheriff court services will assist with arranging transportation for the patient at the time of discharge.? No further discharge needs identified by the patient.? No further intervention required at this time, social services designee will be available to address any further concerns.? Next of Kin: Jg Coffman D/C Plan: Home
[2024-12-28] MEDS: INSULIN LISPRO (AdmeLOG) 1 UNIT/0.01 ML UNIT SC ×3 (12:28→20:41)
--- NOTE | 2024-12-28 13:20 | PD.RESPRO ---
Documentation for date of: 12/28/24 Subjective Subjective Interval history: 12/28/2024: No acute overnight events to report; moreover, patient's lactic acid continually downtrended with IV fluid resuscitation. Patient seen and examined in hospital bed has overall improvement in mental status but still somewhat confused. Will discontinue continuous BiPAP and instead keep it on at bedtime. Pending speech evaluation will start the patient on diet. Patient's urine cultures are still pending; moreover, will continue IV antibiotics. Will continue to monitor and expect discharge within the next 24 to 48 hours. Exam Vital Signs Temp Pulse Resp BP Pulse Ox O2 Del Method O2 Flow Rate 97.0 F 86 19 108/70 96 BiPAP 6 12/28/24 12:00 12/28/24 12:00 12/28/24 12:00 12/28/24 12:00 12/28/24 12:00 12/28/24 12:00 12/28/24 04:00 FiO2 30 12/28/24 10:39 Narrative Exam Physical Exam: GENERAL: Opens eyes on command, frail-appearing, obese, appears stated age HEENT: NC/AT. Moist mucosa. PERRLA CARDIO: Heart RRR, no obvious murmurs, no JVD. PULM: No coughing on BiPAP saturating 92-93. Lungs CTA B/L other than sporadic crackles GI: Abdomen soft, appears to be tender diffusely with patient grimacing, +BS. URO/TELEVISION PRODUCTION TECHNICIAN: +Queen catheter draining yellow urine SKIN/MSK/EXT: +1 pitting edema bilateral lower extremities up to shins. No wounds/discoloration/rashes/amputations noted. +Pedal pulses present B/L. NEURO: Oriented x0. GCS 13 E(4) V(4) M(5) Objective Labs 12/29/24 05:36 12/29/24 05:36 Labs: Laboratory Results - last 24 hr 12/27/24 12/27/24 12/27/24 11:00 14:00 16:30 WBC RBC Hgb Hct MCV MCH MCHC RDW Std Deviation Plt Count Neut % (Auto) Lymph % (Auto) [place] % (Auto) Eos % (Auto) Baso % (Auto) Neut # (Auto) Lymph # (Auto) [place] # (Auto) Eos # (Auto) Baso # (Auto) Immature Gran # (Auto) Absolute Nucleated RBC Immature Gran % Nucleated RBC % VBG pH VBG pCO2 VBG pO2 VBG O2 Sat (Radha) VBG Base Excess Sodium Potassium Chloride Carbon Dioxide Anion Gap BUN Creatinine Estim Creat Clear Calc eGFR BUN/Creatinine Ratio Glucose Estimated Ave Glu mg/dL Hemoglobin A1c Calculated Osmolality Lactic Acid 3.0 H 3.5 H Calcium Corrected Calcium Phosphorus Magnesium Total Bilirubin AST ALT Alkaline Phosphatase Total Protein Albumin Globulin Albumin/Globulin Ratio TSH 2.77 Ur Collection Type Urine Color Urine Clarity Urine pH Ur Specific [place] Urine Protein Urine Glucose (UA) Urine Ketones Urine Blood Urine Nitrite Urine Bilirubin Urine Urobilinogen (Auto) Ur Leukocyte Esterase Urine RBC Urine WBC Ur Squamous Epith Cells Urine Bacteria Hyaline Casts 12/27/24 12/27/24 12/27/24 18:30 20:32 23:30 WBC RBC Hgb Hct MCV MCH MCHC RDW Std Deviation Plt Count Neut % (Auto) Lymph % (Auto) [place] % (Auto) Eos % (Auto) Baso % (Auto) Neut # (Auto) Lymph # (Auto) [place] # (Auto) Eos # (Auto) Baso # (Auto) Immature Gran # (Auto) Absolute Nucleated RBC Immature Gran % Nucleated RBC % VBG pH VBG pCO2 VBG pO2 VBG O2 Sat (Radha) VBG Base Excess Sodium Potassium Chloride Carbon Dioxide Anion Gap BUN Creatinine Estim Creat Clear Calc eGFR BUN/Creatinine Ratio Glucose Estimated Ave Glu mg/dL Hemoglobin A1c Calculated Osmolality Lactic Acid 3.1 H 1.1 Calcium Corrected Calcium Phosphorus Magnesium Total Bilirubin AST ALT Alkaline Phosphatase Total Protein Albumin Globulin Albumin/Globulin Ratio TSH Ur Collection Type Catheter Urine Color Lt-Yellow Urine Clarity Turbid A Urine pH 5.5 Ur Specific [place] 1.016 Urine Protein Negative Urine Glucose (UA) Negative Urine Ketones Negative Urine Blood Negative Urine Nitrite Positive Urine Bilirubin Negative Urine Urobilinogen (Auto) Negative Ur Leukocyte Esterase Positive Urine RBC 5 H Urine WBC 79 H Ur Squamous Epith Cells 2 Urine Bacteria 2+ A Hyaline Casts < 1 12/28/24 12/28/24 12/28/24 05:13 08:18 10:19 WBC 8.4 RBC 3.44 L Hgb 10.1 L Hct 32.9 L MCV 96 MCH 29.4 MCHC 30.7 L RDW Std Deviation 54.3 H Plt Count 226 Neut % (Auto) 69 Lymph % (Auto) 13 [place] % (Auto) 10 Eos % (Auto) 6 Baso % (Auto) 1 Neut # (Auto) 5.8 Lymph # (Auto) 1.1 [place] # (Auto) 0.8 Eos # (Auto) 0.5 Baso # (Auto) 0.1 Immature Gran # (Auto) 0.14 H Absolute Nucleated RBC 0.00 Immature Gran % 2 H Nucleated RBC % 0 VBG pH 7.47 VBG pCO2 55 VBG pO2 36 VBG O2 Sat (Radha) 74 L VBG Base Excess 14 H Sodium 142 142 Potassium 6.5 H* D 4.2 D Chloride 97 L 98 Carbon Dioxide 36.5 H 38.0 H Anion Gap 9 6 L BUN 38 H 37 H Creatinine 1.5 H 1.6 H Estim Creat Clear Calc 31.7 L 29.7 L eGFR 33 L 31 L BUN/Creatinine Ratio 25 H 23 H Glucose 157 H D [address] Glu mg/dL 154 H Hemoglobin A1c 7.0 H Calculated Osmolality 295 300 H Lactic Acid Calcium 8.6 8.8 Corrected Calcium 8.8 9.0 Phosphorus 3.9 3.4 Magnesium 2.4 Total Bilirubin 0.2 L AST 64 H ALT 22 Alkaline Phosphatase 34 L D Total Protein 6.3 Albumin 3.7 3.7 Globulin 2.6 Albumin/Globulin Ratio 1.4 TSH Ur Collection Type Urine Color Urine Clarity Urine pH Ur Specific [place] Urine Protein Urine Glucose (UA) Urine Ketones Urine Blood Urine Nitrite Urine Bilirubin Urine Urobilinogen (Auto) Ur Leukocyte Esterase Urine RBC Urine WBC Ur Squamous Epith Cells Urine Bacteria Hyaline Casts ABG Interpretation ABG results: 12/27/24 12/28/24 11:45 10:19 ABG pH 7.35 ABG pCO2 75 H* ABG pO2 152 H ABG HCO3 41 H ABG O2 Saturation 100 H ABG Base Excess 13 H VBG pH 7.47 VBG pCO2 55 VBG pO2 36 VBG Base Excess 14 H Quality Measures Quality Measures none Advance care planning discussed with:: patient Assessment & Plan Assessment Current Active Medications: Generic Name Dose Route Start Last Admin Trade Name Freq PRN Reason Stop Dose Admin Acetaminophen 650 mg 12/27/24 13:31 Acetaminophen 325 Mg Tablet PO 01/26/25 13:30 Q6H PRN Pain 1-3 and/or Fever >100.1 Hydrocodone Bitart/Acetaminophen 1 tab 12/27/24 15:26 Hydrocodone/Apap 10/325 Tab PO 01/01/25 13:36 Q4HR PRN PAIN SCALE 4-6 (Moderate Albuterol/Ipratropium 3 ml 12/27/24 19:09 Albuterol/Ipratropium (Duoneb) Rt Sravani 3 Ml Nebu INH 01/27/25 00:59 Q6HRRT PRN SHORTNESS OF BREATH OR WHEEZE Dextrose 25 ml 12/27/24 13:48 Dextrose 50%-Water Inj 50 Ml Syringe IV 01/26/25 13:47 Q15MIN PRN BG 50-70 responsive npo pt Dextrose 50 ml 12/27/24 13:48 Dextrose 50%-Water Inj 50 Ml Syringe IV 01/26/25 13:47 Q15MIN PRN BG <50 OR BG <70 & pt unresponsive Glucagon 1 mg 12/27/24 13:48 Glucagon Inj 1 Mg Vial IM Q15MIN PRN BG <70, and no IV access Heparin Sodium (Porcine) 5,000 unit 12/27/24 21:00 12/28/24 09:32 Heparin Sod Inj 5000 Unit/Ml Vial SC 01/10/25 20:59 5,000 unit Q12HR LISETTE Administration Piperacillin Sod/Tazobactam 100 mls @ 200 mls/hr 12/27/24 19:00 12/28/24 05:24 Sod 4.5 gm/ Sodium Chloride IV 01/03/25 18:59 200 mls/hr Q8HR LISETTE Administration Insulin Human Lispro 0 unit 12/27/24 14:00 12/28/24 12:28 Insulin Lispro (Admelog) 1 Unit/0.01 Ml Unit SC 01/26/25 13:59 3 unit Q6HR LISETTE Administration Protocol Levothyroxine Sodium 100 mcg 12/28/24 06:00 12/28/24 05:31 Levothyroxine Sodium 100 Mcg Tablet PO 01/27/25 05:59 Not Given ACBR LISETTE Morphine Sulfate 2 mg 12/27/24 15:23 Morphine Sulf Inj 10 Mg/Ml Vial IVP 01/01/25 15:22 Q4HR PRN Pain 7-10 Ondansetron HCl 4 mg 12/27/24 13:31 Ondansetron Inj 2 Mg/Ml Inj 2 Ml IV 01/26/25 13:30 Q6H PRN NAUSEA OR VOMITING Protocol Pantoprazole Sodium 40 mg 12/28/24 09:00 12/28/24 09:32 Pantoprazole Inj 40 Mg Vial IVP 01/27/25 08:59 40 mg QDAY LISETTE Administration Sennosides 1 tab 12/28/24 09:00 12/28/24 09:35 Senna Tablet PO 01/27/25 08:59 Not Given QDAY LISETTE Protocol Plan 89-year-old female with past medical history of hypothyroidism, recurrence UTIs, anxiety, right breast cancer status postlumpectomy, chronic back pain, type 2 diabetes, GERD, depression, pulmonary arterial hypertension, HFpEF with grade 1 diastolic dysfunction presenting to the ED with altered mental status will be admitted for acute encephalopathy secondary to acute hypercapnic respiratory failure from pulmonary arterial hypertension versus congestive heart failure exacerbation and sepsis secondary to pneumonia and UTI. #Acute encephalopathy secondary to hypercarbia, improving As per HPI, patient presented with change in mental status from baseline on 12/27 Per patient's family, she did not exhibit any recent sick contacts, recent illnesses or fever/chills - patient had normal baseline day prior On examination, patient does open eyes to command and mumbles some words but is incomprehensible simple motor, localizes to pain Differential diagnosis at this time include: Hypercarbia induced acute encephalopathy versus TIA/stroke versus polypharmacy Head CT with no acute findings Plan: Continue BiPAP at bedtime Speech/PT eval; will start diet if speech clears #Acute hypoxic/hypercapnic respiratory failure secondary to #COPD exacerbation #Acute congestive heart failure exacerbation? #History of grade 1 diastolic dysfunction #Pulmonary arterial hypertension As noted above, patient is on CPAP at night along with 2 L while awake ABG shows pH of 7.35 with PCO2 of 75, pO2 of 152 and bicarb of 41 Chest x-ray shows mild to moderate heart failure and superimposed pneumonia in both lungs CTA chest/abdomen/pelvis shows PAH, mild to moderate heart failure, superimposed bilateral pneumonia EKG shows sinus rhythm with occasional supraventricular PVCs. Patient given x1 IV Lasix 40mg and albuterol/ipratropium breathing treatment Patient is lactic acid increasing after diuretics; lactic acid down trended Plan: Supplemental oxygen BIPAP HS ECHO taken, pending read On Zosyn for likely UTI #Sepsis secondary to #UTI #Bilateral pneumonia Patient presenting with sepsis secondary to UTI and pneumonia WBC of 9.9, worsening lactic acidosis and signs of endorgan dysfunction with STEVE Given 3.375 of Zosyn in the ED Of note, patient has a recurrent history of UTIs with hospitalization for Pseudomonas UTI Urinalysis does show pyuria and bacteria; however, there is elevated number of squamous epithelial cells Repeat urinalysis confirms pyuria bacteria and positive for nitrite and leukocyte Estrace Blood cultures no growth within 24 hours Plan: IV Zosyn 4.5 g every 8h to cover for Pseudomonas Urine cultures pending #STEVE on CKD stage IIIa, improving Likely in the setting of sepsis versus possibly vascular congestion from CHF exacerbation? Per medical chart, patient does have waxing and waning kidney function with CKD stage III Plan: Will encourage p.o. intake once patient clears speech eval Avoid nephrotoxic Renally dose medications Will follow-up with morning labs #Type 2 diabetes, [id number] Last A1c on file7.4 in March 2024 Plan: Sliding scale insulin Hypoglycemic protocol Follow-up on morning A1c #Hypothyroidism Patient on home levothyroxine 100 mcg Plan: Restart home medication #Chronic back pain Patient mostly bedbound for the past 7 years or so; gets up to wheelchair at times On [place] 10 at home Plan: Multimodal analgesia #Right atrophic kidney, staghorn calculi #Primary hepatocellular disease As noted in above CT Plan: Follow-up outpatient Hospital Management: Lines: PIV Diet: N.p.o., pending speech referral Bowel: Senna GI prophylaxis: Protonix DVT prophylaxis: Heparin subcu Dispo: Pending echo, IV antibiotics for sepsis secondary to UTI/pneumonia, BiPAP for acute hypercapnic respiratory failure; home with home health Code: DNR Patient seen and assessed with attending Dr. Gonzalez and senior resident Dr. Sofi Lopez, PGY-1 Patient examined and case discussed with the team including attending physician Note reviewed, I agree with the care plan as documented. Ms Coffman is a pleasant 89-year-old female was admitted for acute encephalopathy and acute hypoxic respiratory failure. She was treated with BiPAP, mentation much better today and ABG improved. Will get speech therapy for swallow evaluation, family counseled at bedside. BiPAP at bedtime only. Pending final culture results, physical therapy ordered. Please refer to the note above for further details. - Jovani Farah MD, PGY 2 Disclaimer: The document may contain phonetic/typographic errors due to voice recognition software. These errors are purely due to imperfections in the software program and should not be misconstrued in any way to compromise the substance of the patient's medical care during this visit. Attending Provider Attestation/Addendum Kaylynn Núñez DO, attest that I was physically present for the mackenzie portions of the service and evaluated the patient with the resident and I reviewed and discussed the case with the resident and agree with the resident's findings and plans of care as documented above Patient seen eval this a.m. She remained on BiPAP overnight. Mental status much improved. Patient is able to state her name and location. Family is at bedside. Since patient is able to follow commands and is much more alert, will remove BiPAP and place patient on nasal cannula and have speech therapy see patient to advance diet. VBG shows improvement of CO2 retention. Patient is back to baseline. Pending cultures for UTI. Echocardiogram is also pending. Patient has been afebrile overnight otherwise.
--- NOTE | 2024-12-28 14:23 | PCS.ST ---
Swallow Evaluation completed. See report for details. No dysphagia. Respirator stable during PO activity. Recommend chopped diet.
[2024-12-29] VITALS (10 sets, daily range): BP systolic 111–136; BP diastolic 62–95; PULSE 89–108; RESP 16–32; TEMP 36.1–36.8; O2SAT 94–99; BMI 34.7; BMI 34.9
[2024-12-29] MEDS: PIPER/TAZO INJ 4.5 GM in SODIUM CHLORIDE 0.9% (POP) 100 ML IV ×3 (05:28→22:12)
[2024-12-29] MEDS: LEVOTHYROXINE SODIUM 100 MCG TABLET PO (05:29)
[2024-12-29 06:19] LABS: Basophils # (Auto) 0.1 Thou/mm3 (0.0-0.2); Basophils % (Auto) 1 % (0-2.5); Eosinophils # (Auto) 0.5 Thou/mm3 (0.0-0.5); Eosinophils % (Auto) 6 % (0-10); Hematocrit 37.6 % (36.0-46.0); Hemoglobin 11.2 g/dL (12.0-16.0); Immature Granulocytes % (Auto) 2 % (0-0); Immature Granulocytes Auto 0.14 Thou/mm3 (0.00-0.00); Lymphocytes # (Auto) 1.2 Thou/mm3 (1.0-4.8); Lymphocytes % (Auto) 13 % (10-50); Mean Corpuscular HGB Conc 29.8 g/dl (31.0-37.0); Mean Corpuscular Volume 97 fL (80-100); Monocytes % (Auto) 11 % (0-12); Neutrophils # (Auto) 5.8 Thou/mm3 (1.8-7.7); Neutrophils % (Auto) 67 % (37-80); Nucleated Red Blood Cell % 0 /100 WBC (0); Platelet Count 250 Thou/mm3 (140-440); RDW Standard Deviation 54.5 fL (36.4-46.3); Red Blood Count 3.86 Miln/mm3 (4.00-5.20); White Blood Count 8.7 Thou/mm3 (3.6-11.0)
[2024-12-29 06:37] LABS: Alanine Aminotransferase 17 U/L (10-49); Albumin, Serum 3.7 gm/dL (3.4-4.8); Albumin/Globulin Ratio 1.3 (1.2-2.2); Alkaline Phosphatase 50 U/L (46-116); Anion Gap 7 (7-16); Aspartate Amino Transferase 14 U/L (0-34); BUN/Creatinine Ratio 18 Ratio (12-20); Bilirubin,Total 0.4 mg/dL (0.3-1.2); Blood Urea Nitrogen 25 mg/dL (9-23); Calcium 8.8 mg/dL (8.3-10.6); Chloride 99 mMol/L (98-107); Creatinine (Component) 1.4 mg/dL (0.6-1.3); Estimated Creatinine Clearance 33.8 mL/min (>60); Globulin 2.8 gm/dL (2.3-3.5); Glucose 195 mg/dL (74-106); Osmolality,Calculated 294 (275-295); Potassium 4.2 mMol/L (3.4-5.1); Sodium 143 mMol/L (136-145); Total Protein 6.5 gm/dL (5.7-8.2); eGFR 36 See Note
[2024-12-29] MEDS: HEPARIN SOD INJ 5000 UNIT/ML VIAL SC ×2 (08:38→20:11)
[2024-12-29] MEDS: INSULIN LISPRO (AdmeLOG) 1 UNIT/0.01 ML UNIT SC ×4 (08:38→20:10)
[2024-12-29] MEDS: SENNA TABLET 1 TAB PO (08:39)
[2024-12-29] MEDS: PANTOPRAZOLE INJ 40 MG VIAL IVP (08:39)
--- NOTE | 2024-12-29 11:47 | PD.RESPRO ---
Documentation for date of: 12/29/24 Subjective Subjective Interval history: 12/29/2024: No acute overnight events to report. Patient seen and examined in hospital and back to her baseline mental status; moreover, answering questions appropriately. Patient denies having any concerning symptoms at this time such as chest pain, shortness of breath, palpitations, dizziness or confusion. Patient's urine cultures are positive for Pseudomonas which is sensitive to Zosyn. There are no oral alternatives noted in the antibiotic coverage chart; as a result, consulting infectious disease for recommendations regarding possible PICC line placement versus alternatives. Exam Vital Signs Temp Pulse Resp BP Pulse Ox O2 Del Method O2 Flow Rate 97.3 F 102 H 20 136/95 H 99 Nasal Cannula 3 12/29/24 08:00 12/29/24 08:00 12/29/24 08:00 12/29/24 08:00 12/29/24 08:00 12/29/24 08:00 12/29/24 08:00 FiO2 30 12/29/24 02:50 Narrative Exam Physical Exam: GENERAL: Awake, answering questions appropriately, frail-appearing, obese, appears stated age HEENT: NC/AT. Moist mucosa. PERRLA CARDIO: Heart RRR, no obvious murmurs, no JVD. PULM: No coughing on 2-3 liters nasal cannula. Lungs CTA B/L GI: Abdomen soft, mild tenderness noted diffusely, +BS. URO/BACON DE RINDER: +Queen catheter draining yellow urine (will discontinue) SKIN/MSK/EXT: +1 pitting edema bilateral lower extremities up to shins. No wounds/discoloration/rashes/amputations noted. +Pedal pulses present B/L. NEURO: Oriented x3, no focal neurologic deficits noted Objective Labs 12/30/24 05:36 12/30/24 05:36 Labs: Laboratory Results - last 24 hr 12/29/24 05:36 WBC 8.7 RBC 3.86 L Hgb 11.2 L Hct 37.6 MCV 97 MCH 29.0 MCHC 29.8 L RDW Std Deviation 54.5 H Plt Count 250 Neut % (Auto) 67 Lymph % (Auto) 13 [place] % (Auto) 11 Eos % (Auto) 6 Baso % (Auto) 1 Neut # (Auto) 5.8 Lymph # (Auto) 1.2 [place] # (Auto) 1.0 H Eos # (Auto) 0.5 Baso # (Auto) 0.1 Immature Gran # (Auto) 0.14 H Absolute Nucleated RBC 0.00 Immature Gran % 2 H Nucleated RBC % 0 Sodium 143 Potassium 4.2 Chloride 99 Carbon Dioxide 37.0 H Anion Gap 7 BUN 25 H Creatinine 1.4 H Estim Creat Clear Calc 33.8 L eGFR 36 L BUN/Creatinine Ratio 18 Glucose 195 H D Calculated Osmolality 294 Calcium 8.8 Corrected Calcium 9.0 Total Bilirubin 0.4 AST 14 ALT 17 Alkaline Phosphatase 50 D Total Protein 6.5 Albumin 3.7 Globulin 2.8 Albumin/Globulin Ratio 1.3 ABG Interpretation ABG results: 12/27/24 12/28/24 11:45 10:19 ABG pH 7.35 ABG pCO2 75 H* ABG pO2 152 H ABG HCO3 41 H ABG O2 Saturation 100 H ABG Base Excess 13 H VBG pH 7.47 VBG pCO2 55 VBG pO2 36 VBG Base Excess 14 H Quality Measures Quality Measures none Advance care planning discussed with:: patient and other Assessment & Plan Assessment Current Active Medications: Generic Name Dose Route Start Last Admin Trade Name Freq PRN Reason Stop Dose Admin Acetaminophen 650 mg 12/27/24 13:31 Acetaminophen 325 Mg Tablet PO 01/26/25 13:30 Q6H PRN Pain 1-3 and/or Fever >100.1 Hydrocodone Bitart/Acetaminophen 1 tab 12/27/24 15:26 Hydrocodone/Apap 10/325 Tab PO 01/01/25 13:36 Q4HR PRN PAIN SCALE 4-6 (Moderate Albuterol/Ipratropium 3 ml 12/27/24 19:09 Albuterol/Ipratropium (Duoneb) Rt Sravani 3 Ml Nebu INH 01/27/25 00:59 Q6HRRT PRN SHORTNESS OF BREATH OR WHEEZE Dextrose 25 ml 12/27/24 13:48 Dextrose 50%-Water Inj 50 Ml Syringe IV 01/26/25 13:47 Q15MIN PRN BG 50-70 responsive npo pt Dextrose 50 ml 12/27/24 13:48 Dextrose 50%-Water Inj 50 Ml Syringe IV 01/26/25 13:47 Q15MIN PRN BG <50 OR BG <70 & pt unresponsive Glucagon 1 mg 12/27/24 13:48 Glucagon Inj 1 Mg Vial IM Q15MIN PRN BG <70, and no IV access Heparin Sodium (Porcine) 5,000 unit 12/27/24 21:00 12/29/24 08:38 Heparin Sod Inj 5000 Unit/Ml Vial SC 01/10/25 20:59 5,000 unit Q12HR [facility] Administration Piperacillin Sod/Tazobactam 100 mls @ 200 mls/hr 12/27/24 19:00 12/29/24 06:39 Sod 4.5 gm/ Sodium Chloride IV 01/03/25 18:59 Infused Q8HR [facility] Infusion Insulin Glargine 10 unit 12/29/24 21:00 Insulin Glargine (Lantus) 5 Unit/0.05 Ml (Per 5 Units) SC 01/28/25 20:59 [facility] Insulin Human Lispro 0 unit 12/28/24 21:00 12/29/24 08:38 Insulin Lispro (Admelog) 1 Unit/0.01 Ml Unit SC 01/27/25 20:59 1 unit ACHS [facility] Administration Protocol Insulin Human Lispro 3 unit 12/29/24 11:30 Insulin Lispro (Admelog) 1 Unit/0.01 Ml Unit SC 01/28/25 11:29 ACHS [facility] Levothyroxine Sodium 100 mcg 12/28/24 06:00 12/29/24 05:29 Levothyroxine Sodium 100 Mcg Tablet PO 01/27/25 05:59 100 mcg ACBR [facility] Administration Morphine Sulfate 2 mg 12/27/24 15:23 Morphine Sulf Inj 10 Mg/Ml Vial IVP 01/01/25 15:22 Q4HR PRN Pain 7-10 Ondansetron HCl 4 mg 12/27/24 13:31 Ondansetron Inj 2 Mg/Ml Inj 2 Ml IV 01/26/25 13:30 Q6H PRN NAUSEA OR VOMITING Protocol Pantoprazole Sodium 40 mg 12/28/24 09:00 12/29/24 08:39 Pantoprazole Inj 40 Mg Vial IVP 01/27/25 08:59 40 mg QDAY [facility] Administration Sennosides 1 tab 12/28/24 09:00 12/29/24 08:39 Senna Tablet PO 01/27/25 08:59 1 tab QDAY [facility] Administration Protocol Plan 89-year-old female with past medical history of hypothyroidism, recurrence UTIs, anxiety, right breast cancer status postlumpectomy, chronic back pain, type 2 diabetes, GERD, depression, pulmonary arterial hypertension, HFpEF with grade 1 diastolic dysfunction presenting to the ED with altered mental status will be admitted for acute encephalopathy secondary to acute hypercapnic respiratory failure from pulmonary arterial hypertension versus congestive heart failure exacerbation and sepsis secondary to pneumonia and UTI. #Acute encephalopathy secondary to hypercarbia, resolved As per HPI, patient presented with change in mental status from baseline on 12/27 Per patient's family, she did not exhibit any recent sick contacts, recent illnesses or fever/chills - patient had normal baseline day prior On examination, patient does open eyes to command and mumbles some words but is incomprehensible simple motor, localizes to pain Differential diagnosis at this time include: Hypercarbia induced acute encephalopathy versus TIA/stroke versus polypharmacy Head CT with no acute findings Plan: Continue BiPAP at bedtime Speech recommends dysphagia 3 diet PT eval completed, patient has 24-hour care at home Consider discontinuing opioid medications when discharged, slowly tapered off Counseled on importance of using BiPAP at night at home #Acute hypoxic/hypercapnic respiratory failure secondary to #COPD exacerbation #Acute congestive heart failure exacerbation? #History of grade 1 diastolic dysfunction #Pulmonary arterial hypertension #Opioid-use As noted above, patient is on CPAP at night along with 2 L while awake ABG shows pH of 7.35 with PCO2 of 75, pO2 of 152 and bicarb of 41 Chest x-ray shows mild to moderate heart failure and superimposed pneumonia in both lungs CTA chest/abdomen/pelvis shows PAH, mild to moderate heart failure, superimposed bilateral pneumonia EKG shows sinus rhythm with occasional supraventricular PVCs. Patient given x1 IV Lasix 40mg and albuterol/ipratropium breathing treatment Patient is lactic acid increasing after diuretics; lactic acid down trended Opioid use could also be potentially exacerbating patient's respiratory drive Echo showed: Normal LV size and function. Mild LVH. Stage I diastolic dysfunction. Estimated EF 60-65%. Normal RV size and function. Trace TR. Plan: Supplemental oxygen BIPAP HS On Zosyn for UTI #Sepsis secondary to #UTI #Bilateral pneumonia, ruled out Patient presenting with sepsis secondary to UTI and pneumonia WBC of 9.9, worsening lactic acidosis and signs of endorgan dysfunction with STEVE Given 3.375 of Zosyn in the ED Of note, patient has a recurrent history of UTIs with hospitalization for Pseudomonas UTI Urinalysis does show pyuria and bacteria; however, there is elevated number of squamous epithelial cells Repeat urinalysis confirms pyuria bacteria and positive for nitrite and leukocyte Estrace Blood cultures no growth within 48 hours Urine cultures positive for resistant form Pseudomonas but sensitive to Zosyn Plan: IV Zosyn 4.5 g every 8h to cover for Pseudomonas Infectious disease consulted as there are no p.o. alternatives listed under antibiotic coverage Recommendations are for the patient to continue receiving IV Zosyn to complete regimen while inpatient #STEVE on CKD stage IIIa, improving Likely in the setting of sepsis versus possibly vascular congestion from CHF exacerbation? Per medical chart, patient does have waxing and waning kidney function with CKD stage III Plan: Will encourage p.o. intake Avoid nephrotoxic Renally dose medications Will follow-up with morning labs #Type 2 diabetes, [id number] Last A1c on file7.4 in March 2024 A1c of 7.0 on admission Plan: Sliding scale insulin Hypoglycemic protocol Will discontinue home glimepiride and metformin; will start Januvia 25 mg p.o. daily #Hypothyroidism Patient on home levothyroxine 100 mcg Plan: Continue home medication #Chronic back pain Patient mostly bedbound for the past 7 years or so; gets up to wheelchair at times On [place] 10 at home Plan: Multimodal analgesia Consider discontinuing opioid medications as this could be causing respiratory depression and exacerbating chronic carbon dioxide retention #Right atrophic kidney, staghorn calculi #Primary hepatocellular disease As noted in above CT Plan: Follow-up outpatient Hospital Management: Lines: PIV, Queen discontinued Diet: Dysphagia III Bowel: Senna GI prophylaxis: Not needed DVT prophylaxis: Heparin subcu Dispo: IV antibiotics for sepsis secondary to UTI; home with home health Code: DNR Patient seen and assessed with attending Dr. Gonzalez and senior resident Dr. Sofi Lopez, PGY-1 Patient examined and case discussed with the team including attending physician Note reviewed, I agree with the care plan as documented. Ms Coffman is a pleasant 89-year-old female was admitted for acute encephalopathy and acute hypoxic respiratory failure. Mentation is at baseline now, patient is fully responsive and comprehends conversation. She is on BiPAP at bedtime only, place patient on nasal cannula and started diet. Urine cultures show Pseudomans + chronic UTI. Patient has been afebrile otherwise. STEVE improving Cr 1.6 -> 1.4 over the last 24 hours. Patient cleared by speech therapy will start diet. Physical therapy ordered. PAH noted on CT C/A/P with mild vascular congestion. Plan: Continue IV Zosyn for psuedomonas + urine ; will transition to Augmentin tomorrow in preparation for DC. F/u ECHO results. Please refer to the note above for further details. - Jovani Farah MD, PGY 2 Disclaimer: The document may contain phonetic/typographic errors due to voice recognition software. These errors are purely due to imperfections in the software program and should not be misconstrued in any way to compromise the substance of the patient's medical care during this visit. Attending Provider Attestation/Addendum I, Kaylynn Gonzalez DO, attest that I was physically present for the mackenzie portions of the service and evaluated the patient with the resident and I reviewed and discussed the case with the resident and agree with the resident's findings and plans of care as documented above Patient seen and evaluated this AM. Patient is back at baseline and on 3L/NC. She has no active complaints at this time. Ucx positive for pseudomonas, but suspect that she may be colonized as it is similar to her previous cultures. Patient has been afebrile as well. Nevertheless, there are no PO abx options. Will consult ID for further recommendations. If agreed that patient is colonized, patient can likely be discharged home in the next 24h.
[2024-12-29] MEDS: INSULIN LISPRO (AdmeLOG) 1 UNIT/0.01 ML UNIT 3 UNIT SC ×3 (12:16→20:10)
--- NOTE | 2024-12-29 13:55 | ECHO_ITS ---
Transthoracic Echo Report Ht (in): 67 Wt (lb): 221 Exam Location: [facility] Status: Inpatient Merchandise Executive: STEPHANIE Ibanez^^^^ Indications: Procedure Performed: BP: / HR: MEASUREMENTS (Male / Female) Normal Values 2D ECHO LV Diastolic Diameter PLAX 3.3 cm 4.2 - 5.9 / 3.9 - 5.3 cm LV Systolic Diameter PLAX 2.2 cm IVS Diastolic Thickness 1.4 cm 0.6 - 1.0 / 0.6 - 0.9 cm LVPW Diastolic Thickness 1.2 cm 0.6 - 1.0 / 0.6 - 0.9 cm LV Relative Wall Thickness 0.8 LVOT Diameter 1.7 cm Aortic Root Diameter 2.9 cm LA Systolic Diameter LX 2.5 cm 3.0 - 4.0 / 2.7 - 3.8 cm Ascending Aorta Diameter 3.0 cm DOPPLER AV Peak Velocity 147.0 cm/s AV Peak Gradient 8.6 mmHg AV Mean Gradient 4.0 mmHg AV Velocity Time Integral 23.6 cm LVOT Peak Velocity 73.2 cm/s LVOT Peak Gradient 2.1 mmHg LVOT Velocity Time Integral 15.0 cm AV Area Cont Eq vti 1.4 cm? AV Area Cont Eq pk 1.1 cm? MV Area PHT 4.2 cm? Mitral E Point Velocity 60.4 cm/s Mitral A Point Velocity 72.8 cm/s Mitral E to A Ratio 0.8 LV E' Lateral Velocity 7.3 cm/s Mitral E to LV E' Lateral Ratio 8.2 LV E' Septal Velocity 7.0 cm/s Mitral E to LV E' Septal Ratio 8.7 TR Peak Velocity 253.5 cm/s TR Peak Gradient 25.7 mmHg PV Peak Velocity 106.0 cm/s PV Peak Gradient 4.5 mmHg RVOT Peak Velocity 64.3 cm/s FINDINGS Left Ventricle Normal left ventricular size, wall thickness, systolic function with no obvious regional wall motion abnormalities.the left ventricular ejection fraction is normal, estimated at 60-65%. There is grade I diastolic dysfunction of the left ventricle (impaired relaxation pattern). Right Ventricle The right ventricle is normal in size and systolic function. The estimated right ventricular systolic pressure, 32 mmHg. Left Atrium The left atrium is normal by two-dimensional, color flow and Doppler imaging with no structural abnormalities, no thrombus formation present. Right Atrium The right atrium is normal by two-dimensional imaging, color flow and Doppler imaging with no structural abnormalities, no thrombus formation present. Atrial Septum The interatrial septum appears normal with no evidence of a shunt. Aorta The aorta is normal by two-dimensional, color flow and Doppler interrogation. Mitral Valve Mild thickening of the mitral valve leaflets. Mild mitral regurgitation. Mild mitral annular calcification. Aortic Valve Aortic valve sclerosis. Diffuse calcification of the aortic valve. Tricuspid Valve There is mild tricuspid valve regurgitation. Pulmonic Valve Trivial pulmonic valve regurgitation. Vessels The pulmonary artery appears normal. The inferior vena cava pulmonary and hepatic veins appear normal. Pericardium The pericardium is normal by two-dimensional imaging. There is no significant pericardial effusion. CONCLUSIONS indication: CHF Normal left ventricular size and function. Approximate ejection fraction is 65%. . Trace mitral and trace tricuspid regurgitation No wall motion abnormalities noted. Shayy Crowe (Electronically Signed) Final Date: 30 Dec 2024 14:28
--- NOTE | 2024-12-29 14:46 | PD.IDPROG ---
Subjective Subjective Interval history: pt may have asb. ua noted. not that striking. cx noted. but presented with other sx Exam Vital Signs Temp Pulse Resp BP Pulse Ox O2 Del Method O2 Flow Rate 97.3 F 102 H 20 136/95 H 99 Nasal Cannula 3 12/29/24 08:00 12/29/24 08:00 12/29/24 08:00 12/29/24 08:00 12/29/24 08:00 12/29/24 08:00 12/29/24 08:00 FiO2 30 12/29/24 02:50 Objective - Internal Medicine Labs 12/29/24 05:36 12/29/24 05:36 Labs: Laboratory Results - last 24 hr 12/29/24 05:36 WBC 8.7 RBC 3.86 L Hgb 11.2 L Hct 37.6 MCV 97 MCH 29.0 MCHC 29.8 L RDW Std Deviation 54.5 H Plt Count 250 Neut % (Auto) 67 Lymph % (Auto) 13 [place] % (Auto) 11 Eos % (Auto) 6 Baso % (Auto) 1 Neut # (Auto) 5.8 Lymph # (Auto) 1.2 [place] # (Auto) 1.0 H Eos # (Auto) 0.5 Baso # (Auto) 0.1 Immature Gran # (Auto) 0.14 H Absolute Nucleated RBC 0.00 Immature Gran % 2 H Nucleated RBC % 0 Sodium 143 Potassium 4.2 Chloride 99 Carbon Dioxide 37.0 H Anion Gap 7 BUN 25 H Creatinine 1.4 H Estim Creat Clear Calc 33.8 L eGFR 36 L BUN/Creatinine Ratio 18 Glucose 195 H D Calculated Osmolality 294 Calcium 8.8 Corrected Calcium 9.0 Total Bilirubin 0.4 AST 14 ALT 17 Alkaline Phosphatase 50 D Total Protein 6.5 Albumin 3.7 Globulin 2.8 Albumin/Globulin Ratio 1.3 ABG Interpretation ABG results: 12/27/24 12/28/24 11:45 10:19 ABG pH 7.35 ABG pCO2 75 H* ABG pO2 152 H ABG HCO3 41 H ABG O2 Saturation 100 H ABG Base Excess 13 H VBG pH 7.47 VBG pCO2 55 VBG pO2 36 VBG Base Excess 14 H Assessment & Plan A&P Narrative ams with asb improved with resp management mostly and is dnr the pseudomonas in urine is unlikely to be a player not on vaginal estrogen although it was recommended in march of 2024. she vargas s been on cranberry and methenamine hippurate insteadfurther the methenamine may interact with her probiotics I am in favor of stopping her rx and following her off abx for now with a re eval if sx recur. Time Spent With Patient Time: Total time spent is greater than 50% in coordination of care (as documented) at patient's floor/unit and/or counseling patient:
--- NOTE | 2024-12-29 15:23 | PD.RESCONSUL ---
HPI Data of Consult Requesting Physician: Kaylynn Gonzalez DO Admitting Provider: Kaylynn Gonzalez DO Attending Provider: Kaylynn Gonzalez DO Primary Care Provider: Beth Messer MD Consult Narrative History of present illness: A 89-year-old female with past medical history of hypothyroidism, recurrence UTIs, COPD with BiPAP use at night and 2 L during the day, status post right breast cancer status postlumpectomy, chronic back pain on chronic opioids, type 2 diabetes, GERD, depression, pulmonary arterial hypertension, HFpEF with grade 1 diastolic dysfunction presenting to the ED on 12/27 with AMS. 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 Consulted to ID for further recommendations in regards to UTI antibiotic recommendations. cc:: cc: Kaylynn Gonzalez DO Exam Vital Signs Temp Pulse Resp BP Pulse Ox O2 Del Method O2 Flow Rate 97.1 F 100 20 111/73 98 Nasal Cannula 3 12/29/24 12:00 12/29/24 12:00 12/29/24 08:00 12/29/24 12:00 12/29/24 12:00 12/29/24 12:00 12/29/24 12:00 FiO2 30 12/29/24 02:50 Narrative Exam GENERAL: Awake, answering questions appropriately, frail-appearing, obese, appears stated age HEENT: NC/AT. Moist mucosa. PERRLA CARDIO: Heart RRR, no obvious murmurs, no JVD. PULM: No coughing on 2-3 liters nasal cannula. Lungs CTA B/L GI: Abdomen soft, mild tenderness noted diffusely, +BS. 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 No wounds/discoloration/rashes/amputations noted. +Pedal pulses present B/L. NEURO: Oriented x3, no focal neurologic deficits noted Results Labs 12/29/24 05:36 12/29/24 05:36 Labs: Short CBC 12/29/24 Range/Units 05:36 WBC 8.7 (3.6-11.0) Thou/mm3 Hgb 11.2 L (12.0-16.0) g/dL Hct 37.6 (36.0-46.0) % Plt Count 250 (140-440) Thou/mm3 BMP 12/29/24 05:36 Sodium 143 Potassium 4.2 Chloride 99 Carbon Dioxide 37.0 H BUN 25 H Creatinine 1.4 H Glucose 195 H D Calcium 8.8 Liver Function 12/29/24 Range/Units 05:36 Total Bilirubin 0.4 (0.3-1.2) mg/dL AST 14 (0-34) U/L ALT 17 (10-49) U/L Alkaline Phosphatase 50 D (46-116) U/L Albumin 3.7 (3.4-4.8) gm/dL ABG Interpretation ABG results: 12/27/24 12/28/24 11:45 10:19 ABG pH 7.35 ABG pCO2 75 H* ABG pO2 152 H ABG HCO3 41 H ABG O2 Saturation 100 H ABG Base Excess 13 H VBG pH 7.47 VBG pCO2 55 VBG pO2 36 VBG Base Excess 14 H Quality Measures Quality Measures none Advance care planning discussed with:: other Medications Home Medications and Allergies Home Medications ?Medication ?Instructions ?Recorded ?Confirmed ?Type levothyroxine 75 mcg tablet 100 mcg PO QAM 04/18/20 12/27/24 History methenamine hippurate 1 gram tablet 1 g PO BID 04/18/20 12/27/24 History omeprazole 40 mg capsule,delayed 40 mg PO QDAY 06/04/21 12/27/24 History release rosuvastatin 5 mg tablet 10 mg PO HS 06/04/21 12/27/24 History venlafaxine 150 mg 150 mg PO HS 06/04/21 12/27/24 History capsule,extended release 24 hr furosemide 40 mg tablet 40 mg PO QAM 08/27/22 12/27/24 History ascorbic acid (vitamin C) 500 mg 500 mg PO BID 03/19/24 12/27/24 History tablet (Vitamin C) aspirin 81 mg tablet 81 mg PO QDAY 03/19/24 12/27/24 History diclofenac sodium 1 % topical gel 2 g topical QID 03/19/24 12/27/24 History magnesium 500 mg tablet 1,000 mg PO QDAY 03/19/24 12/27/24 History calcium 600 mg (as 0.5 tab PO BID 12/27/24 12/27/24 History carbonate)-vitamin D3 5 mcg (200 unit) tablet (Calcium 600 + D(3)) cranberry 500 mg capsule 1,000 mg PO QDAY 12/27/24 12/27/24 History hydrocodone 10 mg-acetaminophen 1 tab PO Q12H PRN pain 12/27/24 12/27/24 History 325 mg tablet lactobacillus comb no.10 20 20,000 mmu cells PO QDAY 12/27/24 12/27/24 History billion cell capsule (Probiotic) pramipexole 0.5 mg tablet 0.5 mg PO HS 12/27/24 12/27/24 History Allergies Allergy/AdvReac Type Severity Reaction Status Date / Time cefuroxime Allergy Intermediate Swelling Verified 12/27/24 11:13 of Lip/Tongue/Throat zinc Allergy Intermediate Rash Verified 12/27/24 11:13 iodine Allergy Unknown Verified 12/27/24 11:13 shellfish derived Allergy Unknown Verified 12/27/24 11:13 Sulfa (Sulfonamide Allergy Unknown Verified 12/27/24 11:13 Antibiotics) Visit Medications Acetaminophen (Acetaminophen 325 Mg Tablet) 650 mg PO Q6H PRN PRN Reason: Pain 1-3 and/or Fever >100.1 Stop: 01/26/25 13:30 Hydrocodone Bitart/Acetaminophen (Hydrocodone/Apap 10/325 Tab) 1 tab PO Q4HR PRN PRN Reason: PAIN SCALE 4-6 (Moderate Stop: 01/01/25 13:36 Albuterol/Ipratropium (Albuterol/Ipratropium (Duoneb) Rt Sravani 3 Ml Nebu) 3 ml INH Q6HRRT PRN PRN Reason: SHORTNESS OF BREATH OR WHEEZE Stop: 01/27/25 00:59 Dextrose (Dextrose 50%-Water Inj 50 Ml Syringe) 25 ml IV Q15MIN PRN PRN Reason: BG 50-70 responsive npo pt Stop: 01/26/25 13:47 Dextrose (Dextrose 50%-Water Inj 50 Ml Syringe) 50 ml IV Q15MIN PRN PRN Reason: BG <50 OR BG <70 & pt unresponsive Stop: 01/26/25 13:47 Glucagon (Glucagon Inj 1 Mg Vial) 1 mg IM Q15MIN PRN PRN Reason: BG <70, and no IV access Heparin Sodium (Porcine) (Heparin Sod Inj 5000 Unit/Ml Vial) 5,000 unit SC Q12HR [facility] Stop: 01/10/25 20:59 Last Admin: 12/29/24 08:38 Dose: 5,000 unit Piperacillin Sod/Tazobactam (Sod 4.5 gm/ Sodium Chloride) 100 mls @ 200 mls/hr IV Q8HR [facility] Stop: 01/03/25 18:59 Last Admin: 12/29/24 15:19 Dose: 200 mls/hr Insulin Glargine (Insulin Glargine (Lantus) 5 Unit/0.05 Ml (Per 5 Units)) 10 unit SC HS [facility] Stop: 01/28/25 20:59 Insulin Human Lispro (Insulin Lispro (Admelog) 1 Unit/0.01 Ml Unit) 0 unit SC ACHS [facility]; Protocol Stop: 01/27/25 20:59 Last Admin: 12/29/24 12:17 Dose: 1 unit Insulin Human Lispro (Insulin Lispro (Admelog) 1 Unit/0.01 Ml Unit) 3 unit SC ACHS [facility] Stop: 01/28/25 11:29 Last Admin: 12/29/24 12:16 Dose: 3 unit Levothyroxine Sodium (Levothyroxine Sodium 100 Mcg Tablet) 100 mcg PO ACBR [facility] Stop: 01/27/25 05:59 Last Admin: 12/29/24 05:29 Dose: 100 mcg Morphine Sulfate (Morphine Sulf Inj 10 Mg/Ml Vial) 2 mg IVP Q4HR PRN PRN Reason: Pain 7-10 Stop: 01/01/25 15:22 Ondansetron HCl (Ondansetron Inj 2 Mg/Ml Inj 2 Ml) 4 mg IV Q6H PRN; Protocol PRN Reason: NAUSEA OR VOMITING Stop: 01/26/25 13:30 Sennosides (Senna Tablet) 1 tab PO QDAY [facility]; Protocol Stop: 01/27/25 08:59 Last Admin: 12/29/24 08:39 Dose: 1 tab Discontinued Medications Hydrocodone Bitart/Acetaminophen (Hydrocodone/Apap 10/325 Tab) 1 tab PO Q4HR PRN PRN Reason: PAIN SCALE 7-10 (Severe Stop: 01/01/25 13:36 Albuterol (Albuterol Rt 2.5 Mg/0.5 Ml Nebu) 2.5 mg INH X1 ONE Stop: 12/28/24 07:30 Last Admin: 12/28/24 07:48 Dose: 2.5 mg Albuterol/Ipratropium (Albuterol/Ipratropium (Duoneb) Rt Sravani 3 Ml Nebu) 3 ml INH X1 ONE Stop: 12/27/24 11:55 Last Admin: 12/27/24 12:34 Dose: 3 ml Dextrose (Dextrose 50%-Water Inj 50 Ml Syringe) 50 ml IV X1 ONE Stop: 12/28/24 07:29 Last Admin: 12/28/24 07:46 Dose: 50 ml Furosemide (Furosemide Inj 10 Mg/Ml 4ml Vial) 40 mg IVP X1 ONE Stop: 12/27/24 12:19 Last Admin: 12/27/24 12:33 Dose: 40 mg Lactated Ringer's (Lactated Ringers) 1,000 mls @ 999 mls/hr IV .Q1H1M ONE Stop: 12/27/24 12:09 Last Admin: 12/27/24 12:48 Dose: Not Given Piperacillin/Tazobactam/Dextrose (Zosyn) 3.375 gm in 50 mls @ 100 mls/hr IV X1 ONE Stop: 12/27/24 11:40 Last Infusion: 12/27/24 12:55 Dose: Infused Sodium Phosphate 15 mmol/ (Sodium Chloride) 255 mls @ 62.5 mls/hr IV X1 ONE Stop: 12/27/24 17:47 Last Infusion: 12/27/24 18:37 Dose: Infused Sodium Chloride (Ns) 500 mls @ 999 mls/hr IV .Q31M ONE Stop: 12/27/24 15:14 Last Infusion: 12/27/24 16:34 Dose: Infused Sodium Chloride (Ns) 1,000 mls @ 75 mls/hr IV .[id number] [facility] Stop: 12/28/24 04:03 Last Admin: 12/27/24 18:37 Dose: Not Given Insulin Glargine (Insulin Glargine (Lantus) 5 Unit/0.05 Ml (Per 5 Units)) 15 unit SC HS [facility] Stop: 01/28/25 20:59 Insulin Human Lispro (Insulin Lispro (Admelog) 1 Unit/0.01 Ml Unit) 0 unit SC Q6HR [facility]; Protocol Stop: 01/26/25 13:59 Last Admin: 12/28/24 18:45 Dose: 2 unit Insulin Human Regular (Insulin Hum Regular 1 Unit/0.01 Ml (Per Unit)) 10 unit IV X1 ONE Stop: 12/28/24 07:31 Last Admin: 12/28/24 07:47 Dose: 10 unit Ondansetron HCl (Ondansetron Inj 2 Mg/Ml Inj 2 Ml) 4 mg IV X1 ONE; Protocol Stop: 12/27/24 12:28 Last Admin: 12/27/24 13:39 Dose: Not Given Oxycodone/Acetaminophen (Oxycodone/Apap 5/325 Tablet) 1 tab PO Q6H PRN PRN Reason: PAIN SCALE 4-6 (Moderate Stop: 01/01/25 13:36 Pantoprazole Sodium (Pantoprazole Inj 40 Mg Vial) 40 mg IVP QDAY [facility] Stop: 01/27/25 08:59 Last Admin: 12/29/24 08:39 Dose: 40 mg Assessment & Plan Plan A 89-year-old female with past medical history of hypothyroidism, recurrence UTIs, COPD with BiPAP use at night and 2 L during the day, status post right breast cancer status postlumpectomy, chronic back pain on chronic opioids, type 2 diabetes, GERD, depression, pulmonary arterial hypertension, HFpEF with grade 1 diastolic dysfunction presenting to the ED on 12/27 with AMS. 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 Consulted to ID for further recommendations in regards to UTI antibiotic recommendations. #UTI #Bilateral pneumonia Patient admitted for AMS most likely secondary to COPD exacerbation versus opioid overdose use, as admission vital signs including heart rate, respiratory rate and body temperature were stable, admission white blood cells were normal. Patient has history of chronic UTI?Pseudomonas Urinalysis does show pyuria and bacteria; however, there is elevated number of squamous epithelial cells Repeat urinalysis confirms pyuria bacteria and positive for nitrite and leukocyte Estrace Blood cultures are negative Urine cultures are positive for Pseudomonas sensitive to Zosyn Patient started on Zosyn based on culture and sensitivities results on December 27 AMS resolved after patient had BiPAP treatment, unlikely AMS is related to underlying urinary tract infection Recommended to discontinue Zosyn after a.m. dose and discharge the patient if other acute or chronic medical problems are stable and at baseline #Acute encephalopathy secondary to hypercarbia, resolved #Acute hypoxic/hypercapnic respiratory failure secondary to #COPD exacerbation #Acute congestive heart failure exacerbation? #History of grade 1 diastolic dysfunction #Pulmonary arterial hypertension #Opioid-use #STEVE on CKD stage IIIa, improving #Type 2 diabetes, [id number] #Hypothyroidism #Chronic back pain #Right atrophic kidney, staghorn calculi #Primary hepatocellular disease ? Managed by primary team I, Shimon Fuchs MD PGY3 reviewed and discussed the case with attending physician Dr. Montero
--- NOTE | 2024-12-29 15:31 | PC.SS ---
Addendum entered by DAXA Reese 12/29/24 15:33: Per PT eval, patient is non-ambulatory and is at her prior level of function. Original Note: Rounding note: pending PT eval.
[2024-12-29] MEDS: INSULIN GLARGINE (Lantus) 5 UNIT/0.05 ML (PER 5 UNITS) 10 UNIT SC (20:11)
[2024-12-30] VITALS (8 sets, daily range): BP systolic 134–147; BP diastolic 64–88; PULSE 80–110; RESP 14–29; TEMP 36.2–36.7; O2SAT 95–99
--- NOTE | 2024-12-30 03:10 | PC.NURSE ---
Patient got transferred to Med Surg unit ROOM 353. Report given to Eliza QUEZADA
[2024-12-30] MEDS: LEVOTHYROXINE SODIUM 100 MCG TABLET PO (05:06)
[2024-12-30] MEDS: PIPER/TAZO INJ 4.5 GM in SODIUM CHLORIDE 0.9% (POP) 100 ML IV (05:06)
[2024-12-30 05:48] LABS: Basophils # (Auto) 0.1 Thou/mm3 (0.0-0.2); Basophils % (Auto) 1 % (0-2.5); Eosinophils # (Auto) 0.6 Thou/mm3 (0.0-0.5); Eosinophils % (Auto) 8 % (0-10); Hematocrit 34.5 % (36.0-46.0); Hemoglobin 10.3 g/dL (12.0-16.0); Immature Granulocytes % (Auto) 2 % (0-0); Immature Granulocytes Auto 0.13 Thou/mm3 (0.00-0.00); Lymphocytes # (Auto) 1.2 Thou/mm3 (1.0-4.8); Lymphocytes % (Auto) 15 % (10-50); Mean Corpuscular HGB Conc 29.9 g/dl (31.0-37.0); Mean Corpuscular Hemoglobin 28.9 pg (25.0-35.0); Mean Corpuscular Volume 97 fL (80-100); Monocytes # (Auto) 0.8 Thou/mm3 (0.0-0.8); Monocytes % (Auto) 11 % (0-12); Neutrophils # (Auto) 5.1 Thou/mm3 (1.8-7.7); Neutrophils % (Auto) 64 % (37-80); Nucleated Red Blood Cell % 0 /100 WBC (0); Platelet Count 243 Thou/mm3 (140-440); RDW Standard Deviation 54.2 fL (36.4-46.3); Red Blood Count 3.56 Miln/mm3 (4.00-5.20); White Blood Count 7.9 Thou/mm3 (3.6-11.0)
[2024-12-30 06:20] LABS: Alanine Aminotransferase 23 U/L (10-49); Albumin, Serum 3.7 gm/dL (3.4-4.8); Albumin/Globulin Ratio 1.4 (1.2-2.2); Alkaline Phosphatase 48 U/L (46-116); Anion Gap 7 (7-16); Aspartate Amino Transferase 22 U/L (0-34); BUN/Creatinine Ratio 17 Ratio (12-20); Bilirubin,Total 0.4 mg/dL (0.3-1.2); Blood Urea Nitrogen 19 mg/dL (9-23); Calcium 8.8 mg/dL (8.3-10.6); Carbon Dioxide 36.5 mMol/L (20.0-31.0); Chloride 101 mMol/L (98-107); Creatinine (Component) 1.1 mg/dL (0.6-1.3); Estimated Creatinine Clearance 42.4 mL/min (>60); Globulin 2.6 gm/dL (2.3-3.5); Glucose 206 mg/dL (74-106); Osmolality,Calculated 295 (275-295); Potassium 4.5 mMol/L (3.4-5.1); Sodium 144 mMol/L (136-145); Total Protein 6.3 gm/dL (5.7-8.2); eGFR 48 See Note
[2024-12-30] MEDS: INSULIN LISPRO (AdmeLOG) 1 UNIT/0.01 ML UNIT SC ×3 (07:37→17:17)
[2024-12-30] MEDS: INSULIN LISPRO (AdmeLOG) 1 UNIT/0.01 ML UNIT 3 UNIT SC (07:37)
[2024-12-30] MEDS: HEPARIN SOD INJ 5000 UNIT/ML VIAL SC (08:52)
[2024-12-30] MEDS: SENNA TABLET 1 TAB PO (08:52)
[2024-12-30] MEDS: INSULIN LISPRO (AdmeLOG) 1 UNIT/0.01 ML UNIT 5 UNIT SC ×2 (12:09→17:16)
--- NOTE | 2024-12-30 14:37 | ESDS_ITS ---
<Statement entered by Kaylynn Gonzalez DO - 12/30/24 15:55> I, Kaylynn Gonzalez DO, attest that I was physically present for the mackenzie portions of the service and evaluated the patient with the resident and I reviewed and discussed the case with the resident and agree with the resident's findings and plans of care as documented above Planned Discharge Date 12/30/24 DS: Providers Provider Date of admission: 12/27/24 13:31 Primary care physician: eBth Messer MD Admitting Provider: Kaylynn Gonzalez DO Attending Provider on Admission: Kaylynn Gonzalez DO Consults: 12/27/24 13:53 Referral Speech Therapy Routine Comment: 12/28/24 08:00 Referral Physical Therapy Routine Comment: Physician Instructions: 12/29/24 09:36 Consult to Infectious Diseases Routine Comment: Pseudomonas UTI, no PO option avail on [facility] Consulting Provider: Walter Montero Attending Provider on DC: Quinn Lopez MD Discharging Provider: Quinn Lopez MD DS: Diagnosis Problem List Completed Was Problem List Reviewed/Reconciled?: Yes Hospital Course Hospital Course Hospital course: 89-year-old female with past medical history of hypothyroidism, recurrent UTIs, COPD with BiPAP use, right breast cancer status post lumpectomy, chronic back pain, type 2 diabetes, GERD, depression, pulmonary arterial hypertension, HFpEF with grade 1 diastolic dysfunction presents to the ED on 12/27 with altered mental status. In the ED, patient presented hypotensive 104/54, heart rate 74, respiratory rate 17, afebrile satting 100 on 6 L nasal cannula. Patient was put on BiPAP, IV fluids were given for lactic acidosis and acute kidney injury along with IV antibiotics for suspected urinary tract infection. During hospitalization, patient's mental status gradually improved and she was back to baseline. Urine cultures were positive for Pseudomonas resistant to many antibiotics; however, patient was on IV Zosyn which was sensitive. Infectious disease was consulted for recommendations regarding continuing IV antibiotics but recommendations were that the patient was most likely colonized and that the regimen in the hospital was sufficient. Patient will be discharged stable with the following strict instructions. Please stop taking metformin 500 mg p.o. twice daily and glimepiride 2 mg p.o. twice daily for diabetes Please take Januvia 50 mg p.o. daily for type 2 diabetes Follow-up with your primary care physician within the next 1 week after discharge Ask your PCP to follow-up on ECHO which was completed in hospital If your symptoms worsen or if you develop any chest pain, shortness of breath, confusion or new dizziness - please come back to the ED immediately. Medical Diagnosis: #Acute encephalopathy secondary to hypercarbia, resolved #Acute hypoxic/hypercapnic respiratory failure secondary to #COPD exacerbation #Acute congestive heart failure exacerbation? #History of grade 1 diastolic dysfunction #Pulmonary arterial hypertension #Opioid-use #Sepsis secondary to #UTI #Bilateral pneumonia, ruled out #STEVE on CKD stage IIIa, improving #Type 2 diabetes, [id number] #Hypothyroidism #Chronic back pain #Right atrophic kidney, staghorn calculi #Primary hepatocellular disease Quinn Lopez, PGY-1 Status at Discharge Overall status at discharge: patient is progressing back to baseline Time Spent with Patient Time attestation: Total time spent providing and/or coordinating discharge services: 45 minutes Time spent: Greater than 30 minutes Exam Vital Signs Temp Pulse Resp BP Pulse Ox O2 Del Method O2 Flow Rate 97.3 F 105 H 22 H 142/68 H 97 Room Air 2 12/30/24 12:00 12/30/24 13:05 12/30/24 13:05 12/30/24 12:00 12/30/24 13:05 12/30/24 12:00 12/30/24 13:05 FiO2 30 12/30/24 08:00 Narrative Exam Physical Exam: GENERAL: Awake, answering questions appropriately, frail-appearing, obese, appears stated age HEENT: NC/AT. Moist mucosa. PERRLA CARDIO: Heart RRR, no obvious murmurs, no JVD. PULM: No coughing on 2-3 liters nasal cannula. Lungs CTA B/L GI: Abdomen soft, nontender, +BS. 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 +Pedal pulses present B/L. NEURO: Oriented x3, no focal neurologic deficits noted Discharge Plan Plan Patient Disposition: Home w/HOME HEALTH Care Plan Goals: Please stop taking metformin 500 mg p.o. twice daily and glimepiride 2 mg p.o. twice daily for diabetes Please take Januvia 50 mg p.o. daily for type 2 diabetes Follow-up with your primary care physician within the next 1 week after discharge Ask your PCP to follow-up on ECHO which was completed in hospital If your symptoms worsen or if you develop any chest pain, shortness of breath, confusion or new dizziness - please come back to the ED immediately. Prescriptions/Referrals Prescriptions/Med Rec: New Januvia 50 mg tablet 50 mg PO QDAY 30 Days Qty: 30 3RF Continued levothyroxine 75 mcg Tablet 100 mcg PO QAM Rx Instructions: pt now taking 100 MCG methenamine hippurate 1 gram tablet 1 g PO BID Patient Comments: TAKE 1 TABLET BY MOUTH TWICE A DAY WITH 500 MG OF VITAMIN C Rx Instructions: TAKE 1 TABLET BY MOUTH TWICE A DAY WITH 500 MG OF VITAMIN C venlafaxine 150 mg capsule,extended release 24hr 150 mg PO HS omeprazole 40 mg Capsule,Delayed Release(Dr/Ec) 40 mg PO QDAY rosuvastatin 5 mg Tablet 10 mg PO HS aspirin 81 mg Tablet 81 mg PO QDAY ascorbic acid (vitamin C) [Vitamin C] 500 mg Tablet 500 mg PO BID diclofenac sodium 1 % Gel 2 g TOPICAL QID Rx Instructions: apply to single elbow, wrist or hand; for hand includes palm/fingers/back of hand magnesium 500 mg Tablet 1,000 mg PO QDAY metoprolol succinate 25 mg Tablet Extended Release 24 Hr 25 mg PO QDAY Qty: 30 0RF furosemide 40 mg tablet 40 mg PO QAM Patient Comments: TAKE 1 TABLET BY MOUTH EVERY DAY IN THE MORNING hydrocodone-acetaminophen 10-325 mg tablet 1 tab PO Q12H PRN (Reason: pain) pramipexole 0.5 mg tablet 0.5 mg PO HS Patient Comments: TAKE 1 TABLET BY MOUTH EVERYDAY AT BEDTIME cranberry 500 mg capsule 1,000 mg PO QDAY Rx Instructions: administer with a meal Probiotic 20 billion cell capsule 20,000 mmu cells PO QDAY Rx Instructions: administer with a meal calcium carbonate-vitamin D3 [Calcium 600 + D(3)] 600 mg-5 mcg (200 unit) tablet 0.5 tab PO BID Discontinued glimepiride 2 mg tablet 2 mg PO BID metformin 500 mg tablet 1,000 mg PO BID Referrals: Beth Messer MD [Primary Care Provider] - Patient/Caregiver Discharge Instructions Education Materials: Urinary Tract Infections in Women, When to Use Antibiotics, Taking Opioid Medicines Print Language: Divehi Stand Alone Forms: [employer] Award Info., Patient Portal Info Letter Discharge Order Discharge Orders: Discharge (Routine); Ordered 12/30/24 Ordered By: Quinn Lopez Quality Discharge Quality Measures VTE prophylaxis
--- NOTE | 2024-12-30 16:26 | PC.SS ---
SS spoke to patient's nephew to update of d/c plans. SS will schedule transport via gurney by 7pm. Patient does not have coverage for transport. CALISTA signed. Patient will have 24 hour care
--- NOTE | 2024-12-31 07:53 | ESCONSULT_ITS ---
RE: SHAN SLAUGHTER : 1935 DATE OF CONSULTATION: 12/29/2024 REFERRING PHYSICIAN: Dr. Gonzalez, hospitalist. REASON FOR CONSULTATION: Pseudomonas in urine. 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 Of interest, I saw her about a year ago in March of last year and recommended vaginal estrogen, but she has not been given taht as best I can tell and instead was given methenamine and cranberry,, which has limited efficacy. Furthermore, the methenamine may interact adversely with her probiotic. Her medical history includes surgical hysterectomy and left breast lumpectomy. Medical problems include thyroid disease, chronic low back pain, anxiety, depression, kidney stones, as well as obesity and breast cancer. She is 0. I assume the lack of other concerns are because of the history of breast cancer, but I cannot be sure of that. I can only leave that to the primary team. She has no urinary symptoms and is unable to interact, at the moment listed as DNR. ALLERGIES: As noted in the record. FAMILY HISTORY: Positive for cancer. SOCIAL HISTORY: She is single, lived on a family property, at least used to when I saw her in 2019. That was a number of years ago. She has since then done poorly and is now a DNR. She may live in resident senior living. I am not sure where she is at this point. At this point, she cannot interact. She was on BiPAP, which did drive her CO2 down. ASSESSMENT: 1. Acute respiratory failure. 2. Urinary colonization with pseudomonas. The patient was admitted for altered mentation who had probable hypercarbic respiratory failure due to excessive narcotic use. RECOMMENDATIONS: 1. The patient should have her narcotics adjusted. She may need long-acting narcotics. I leave that to the primary team. I stay out of the narcotic business myself. 2. She may have 3 days of Zosyn treatment for her bacteruria, which would finish approximately tomorrow afternoon. As of this afternoon she will have 2 days given that her first dose was Friday afternoon. I will check on her on Friday if she remains, but if she goes back to the senior living, I have no objection. Please try to send her there tomorrow. DT: 15:06:17 TT: 16:34:00 Ref: [id number] - TID: [id number] MTDD
--- NOTE | 2024-12-31 10:09 | PC.CM ---
I reached out to Dr. Farah letting her know I need home health orders. She was going to reach out to Dr. Gonzalez.
--- NOTE | 2024-12-31 14:24 | PC.CM ---
Patient accepted by [facility]. Start of care date 01/01.
== END 2024-12-30 20:07 | disposition home health service (06) | DRG 871 ==
LOC: SERX 11:43 → SERHOLD 14:01 → S2NX 22:15 → S3NX 12-30 03:29
PROVIDERS: Student in an Organized Health Care Education/Training Program; Admitting Provider Internal Medicine; Emergency Provider Family Medicine; PCP Internal Medicine; Visit Provider Internal Medicine
DX: A41.9 Sepsis, unspecified organism (principal); G93.41 Metabolic encephalopathy; J96.02 Acute respiratory failure with hypercapnia; J96.01 Acute respiratory failure with hypoxia; J15.9 Unspecified bacterial pneumonia; E87.4 Mixed disorder of acid-base balance; I50.32 Chronic diastolic (congestive) heart failure; N39.0 Urinary tract infection, site not specified; N17.9 Acute kidney failure, unspecified; J44.1 Chronic obstructive pulmonary disease with (acute) exacerbation; J44.0 Chronic obstructive pulmonary disease with (acute) lower respiratory infection; Z16.29 Resistance to other single specified antibiotic; I27.20 Pulmonary hypertension, unspecified; E03.9 Hypothyroidism, unspecified; K59.09 Other constipation; E78.00 Pure hypercholesterolemia, unspecified; F41.9 Anxiety disorder, unspecified; F32.A Depression, unspecified; E11.22 Type 2 diabetes mellitus with diabetic chronic kidney disease; G89.29 Other chronic pain; N18.31 Chronic kidney disease, stage 3a; N20.0 Calculus of kidney; K21.9 Gastro-esophageal reflux disease without esophagitis; B96.5 Pseudomonas (aeruginosa) (mallei) (pseudomallei) as the cause of diseases classified elsewhere; N95.2 Postmenopausal atrophic vaginitis; E87.5 Hyperkalemia; E83.39 Other disorders of phosphorus metabolism; K74.60 Unspecified cirrhosis of liver; N26.1 Atrophy of kidney (terminal); I45.10 Unspecified right bundle-branch block; I27.21 Secondary pulmonary arterial hypertension; I49.3 Ventricular premature depolarization; Z79.84 Long term (current) use of oral hypoglycemic drugs; K76.9 Liver disease, unspecified; Z66 Do not resuscitate; Z85.3 Personal history of malignant neoplasm of breast; Z87.442 Personal history of urinary calculi; Z79.891 Long term (current) use of opiate analgesic; Z87.440 Personal history of urinary (tract) infections; Z90.710 Acquired absence of both cervix and uterus; Z88.2 Allergy status to sulfonamides; Z79.890 Hormone replacement therapy; Z88.8 Allergy status to other drugs, medicaments and biological substances; Z74.01 Bed confinement status; R65.20 Severe sepsis without septic shock
CPT/HCPCS: 36415; 36600; 70450; 71045; 71250; 74176; 80053; 80069; 80307; 81001; 82140; 82803; 83036; 83605; 83735; 83880; 84100; 84145; 84443; 84484; 85025; 85610; 85730; 87040; 87077; 87081; 87086; 87186; 87400; 87811; 92526; 92610; 93005; 93306; 94640; 94660; 96361; 96365; 96366; 96367; 96372; 96374; 97161; 99285; A4314; A9270; J1644; J1815; J1938; J2470; J2543; J7040; J7050

== ENCOUNTER 2025-01-07 09:18 | Inpatient (IN) | payer MEDICARE, SELFPAY ==
[2025-01-07] VITALS (25 sets, daily range): BP systolic 119–163; BP diastolic 69–93; PULSE 84–107; RESP 12–32; TEMP 36.1–36.9; O2SAT 56–98; BMI 34.4; BMI 34.2
--- NOTE | 2025-01-07 09:38 | EKG_ITS ---
[facility] Test Date: 2025-01-07 Pat Name: SHAN SLAUGHTER Department: Room: - Gender: Female Pad Tufter: : 1935 Requested By: Perry Hilton Order Number: [id number] Reading MD: Perry Hilton Measurements Intervals [place] Rate: 106 P: -1 AL: 130 QRS: 27 QRSD: 134 T: -32 QT: 338 QTc: 449 Interpretive Statements SINUS TACHYCARDIA RIGHT BUNDLE BRANCH BLOCK [120+ ms QRS DURATION, UPRIGHT V1, 40+ ms S IN I/aVL/V4/V5/V6] Compared to ECG 12/27/2024 11:51:35 Sinus rhythm no longer present /store/S0/[id number].pdf
--- NOTE | 2025-01-07 09:43 | XR_ITS ---
Examination: AP chest single view Technique one AP portable semiupright chest single view Date and time: January 07, 2025 10:10 AM Comparison December 27, 2024 INDICATIONS: Shortness of breath today. FINDINGS: Mild enlargement cardiac contour Extensive opacity throughout the lungs Prominent osteopenia IMPRESSION: Worsening opacity throughout the lungs, consider pneumonia, pulmonary edema, the appearance should be clinically correlated
--- NOTE | 2025-01-07 09:47 | PD.EDSOB ---
ED SOB =RME/HPI General Chief Complaint: Shortness of Breath/Dyspnea Stated Complaint: SOB Time Seen by Provider: 01/07/25 09:24 Arrival date/time: 01/07/25 09:18 Limitations: no limitations RME / HPI RME / HPI Narrative: 89 year old female with history of CHF, COPD, diabetes, hypothyroidism, breast cancer s/p right lumpectomy, chronic UTI, depression, GERD, chronic back pain presents to the ED for evaluation of shortness of breath. The patient is alert and oriented on arrival. History was obtained from EMS, who also provided a medical summary sheet. According to EMS, the patient was recently diagnosed with COPD, managed at home with 2L oxygen via nasal cannula. The patient additionally reports using a BiPAP machine for sleep. The patient denies any history of cigarette smoking. There is no associated cough, fever, change in appetite, or recent infections reported. Related Data Home Medications ?Medication ?Instructions ?Recorded ?Confirmed levothyroxine 75 mcg tablet 100 mcg PO QAM 04/18/20 12/27/24 methenamine hippurate 1 gram tablet 1 g PO BID 04/18/20 12/27/24 omeprazole 40 mg capsule,delayed 40 mg PO QDAY 06/04/21 12/27/24 release rosuvastatin 5 mg tablet 10 mg PO HS 06/04/21 12/27/24 venlafaxine 150 mg 150 mg PO HS 06/04/21 12/27/24 capsule,extended release 24 hr furosemide 40 mg tablet 40 mg PO QAM 08/27/22 12/27/24 ascorbic acid (vitamin C) 500 mg 500 mg PO BID 03/19/24 12/27/24 tablet (Vitamin C) aspirin 81 mg tablet 81 mg PO QDAY 03/19/24 12/27/24 diclofenac sodium 1 % topical gel 2 g topical QID 03/19/24 12/27/24 magnesium 500 mg tablet 1,000 mg PO QDAY 03/19/24 12/27/24 calcium 600 mg (as 0.5 tab PO BID 12/27/24 12/27/24 carbonate)-vitamin D3 5 mcg (200 unit) tablet (Calcium 600 + D(3)) cranberry 500 mg capsule 1,000 mg PO QDAY 12/27/24 12/27/24 hydrocodone 10 mg-acetaminophen 1 tab PO Q12H PRN pain 12/27/24 12/27/24 325 mg tablet lactobacillus comb no.10 20 20,000 mmu cells PO QDAY 12/27/24 12/27/24 billion cell capsule (Probiotic) pramipexole 0.5 mg tablet 0.5 mg PO HS 12/27/24 12/27/24 Previous Rx's ?Medication ?Instructions ?Recorded metoprolol succinate 25 mg 25 mg PO QDAY #30 tabs 03/25/24 tablet,extended release 24 hr sitagliptin phosphate 50 mg tablet 50 mg PO QDAY 1 month #30 tabs 12/30/24 (Januvia) Allergies Allergy/AdvReac Type Severity Reaction Status Date / Time cefuroxime Allergy Intermediate Swelling Verified 12/27/24 11:13 of Lip/Tongue/Throat zinc Allergy Intermediate Rash Verified 12/27/24 11:13 iodine Allergy Unknown Verified 12/27/24 11:13 shellfish derived Allergy Unknown Verified 12/27/24 11:13 Sulfa (Sulfonamide Allergy Unknown Verified 12/27/24 11:13 Antibiotics) Review of Systems Review of Systems Systems Reviewed: All systems reviewed, normal except as documented Past Medical History Past Medical History CARDIAC: Positive Cardiac Disorders, Coronary Artery Disease, Hypercholesterolemia and Hypertension RESPIRATORY: Positive Pulmonary Fibrosis GASTROINTESTINAL: Positive Gastrointestinal Disorders, Gall Bladder Disease, Gastroesophageal Reflux Disease and Obesity GENITOURINARY: Positive Genitourinary Disorders and Kidney Stones REPRODUCTIVE: Positive Breast Cancer MUSCULOSKELETAL: Positive Musculoskeletal Disorders ENDOCRINE: Positive Endocrine Disorders, Diabetes Mellitus Type 2 and Hypothyroidism PSYCHO/SOCIAL: Positive Depression and Anxiety OTHER HISTORY: Positive Cancer and Breast Cancer Family History FAMILY HISTORY: Positive Family Cancer Surgical History SURGICAL: Positive Tonsillectomy, Abdominal Surgery and Lumpectomy Social History SMOKING STATUS: Never smoker SECOND HAND EXPOSURE: No ED Exam General Limitations: Present no limitations General appearance: Present alert, in no apparent distress, obese and other (nasal cannula in place ) Head Head exam: Present atraumatic Eye Eye exam: Present normal appearance, PERRL and EOMI ENT ENT exam: Present normal exam, normal oropharynx and mucous membranes moist Neck Neck exam: Present normal inspection, full ROM, trachea midline and other (No JVD ) Chest Chest inspection: Present normal inspection and symmetric chest wall rise Respiratory Respiratory exam: Present other (Diminished breath sounds ) Cardiovascular Cardiovascular exam: Present regular rate, normal rhythm and other (Heart sounds are distant) Abdominal Exam Abdominal exam: Present soft and normal bowel sounds Extremities Exam Extremities exam: Present full ROM and other (BLE weakness that is symmetric ) Back Exam Back exam: Present normal inspection and full ROM Neurological Exam Neurological exam: Present alert, oriented X3 and CN II-XII intact Psychiatric Psychiatric exam: Present normal affect and normal mood Skin Skin exam: Present warm, dry, intact and normal color Course Quality Measures none Orders Category Date Time Status COVID-19 Screening Questionnaire NOW Care 01/07/25 11:03 Active 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 Worker NOW Care 01/07/25 09:39 Active Continuous Pulse Oximetry NOW Care 01/07/25 09:38 Active Decision to Admit X1 Care 01/07/25 11:03 Active EKG (ED ONLY) *Do not use* NOW Care 01/07/25 09:39 Completed Insert IV NOW Care 01/07/25 09:39 Active EKG (ED Only) Stat Exams 01/07/25 09:38 Draft XR chest 1V portable Stat Exams 01/07/25 09:43 Completed ABG [Arterial Blood Gas] Stat Lab 01/07/25 12:36 Completed Arterial Blood Gas Stat Lab 01/07/25 10:10 Completed B-Type Natriuretic Peptide Stat Lab 01/07/25 09:55 Completed Blood Culture (Lab) Stat Lab 01/07/25 11:06 Received CBC Stat Lab 01/07/25 09:55 Completed Comprehensive Metabolic Panel Stat Lab 01/07/25 09:55 Completed Lactic Acid [Lactate (Lactic Acid)] Stat Lab 01/07/25 12:22 Completed Partial Thromboplastin Time Stat Lab 01/07/25 09:55 Completed Procalcitonin Stat Lab 01/07/25 09:55 Completed Troponin I Stat Lab 01/07/25 09:55 Completed Urinalysis Stat Lab 01/07/25 11:39 Completed ALBUTEROL RT 0.5ml [Proventil Rt 0.5ml] Med 01/07/25 09:38 Discontinued 5 mg INH X1 ONE ALBUTEROL RT 0.5ml [Proventil Rt 0.5ml] Med 01/07/25 10:58 Discontinued 5 mg INH X1 ONE Albuterol/Ipratr Rt Sravani [Duoneb Rt Sravani] Med 01/07/25 11:39 Discontinued 3 ml INH X1 ONE Budesonide Rt [Pulmicort Rt Sravani] Med 01/07/25 09:38 Discontinued 0.25 mg INH X1 ONE Doxycycline Inj [Vibramycin Inj] 100 mg Med 01/07/25 10:58 Discontinued Sodium Chloride 0.9% (Pop) [NS 0.9% mini bag] 100 ml IV X1 Furosemide Inj [Lasix Inj] Med 01/07/25 10:58 Discontinued 40 mg IVP X1 ONE INSULIN LISPRO (AdmeLOG) [HumaLOG] Med 01/07/25 11:42 Discontinued 5 unit SC X1 ONE Insulin Regular Med 01/07/25 11:01 Discontinued 6 unit SC X1 ONE MethylPREDNISolone.* [SoluMEDROL Inj] Med 01/07/25 09:38 Discontinued 125 mg IV X1 ONE Piper/Tazo 3.375 gm Premix [Zosyn] Med 01/07/25 11:00 Discontinued 3.375 gm in 50 ml IV X1 Sodium Chloride Rt Sravani 0.9% [NS Rt Sravani 0.9%] Med 01/07/25 09:38 Active 3 ml INH PRN PRN BiPAP / CPAP NOW RT 01/07/25 11:01 Active Oxygen Delivery NOW RT 01/07/25 09:38 Active Vital Signs Vital signs: Vital Signs Temperature 98.5 F 01/07/25 09:37 Pulse Rate 106 H 01/07/25 09:37 Respiratory Rate 22 H 01/07/25 09:37 Blood Pressure 163/93 H 01/07/25 09:37 Pulse Oximetry (%) 91 L 01/07/25 09:37 Oxygen Delivery Method Nasal Cannula 01/07/25 09:37 Oxygen Flow Rate 4 01/07/25 09:37 Shortness of Breath / Dyspnea MDM Narrative MDM Narrative:: Sonali Núñez am scribing for and in the presence of Dr. Alfonso. 0945: Care transferred to resident Dr. Tai. Patient data External records reviewed:: [facility] previous records (I reviewed admission from from 12/27/24 through 12/31/24 for dyspnea ) and EMS form Clinical information provided by:: patient and EMS Social determinants that could affect healthcare access:: none Patient has the following chronic illnesses:: CHF, COPD, diabetes, hypothyroidism, breast cancer s/p right lumpectomy, chronic UTI, depression, GERD, chronic back pain How is presenting disease/condition affected by chronic disease/condition?: exacerbated by Evaluation data The following diagnostics were reviewed and interpreted by me:: lab results, radiology exam(s) and EKG tracing(s) (EKG @ 09:56 AM. Sinus tachycardia, rate 106, rigth bundle branch block, WV 130ms, QRS 134ms, QT/QTc 338/449ms ) Lab and/or radiology exams considered but not ordered:: None Interpretation Summary: Ordering Physician: Perry Alfonso MD Date of Service: 01/07/25 Procedure(s): XR chest 1V portable Accession Number(s): [id number] cc: Perry Alfonso MD; Christian Cárdenas MD~ Examination: AP chest single view Technique one AP portable semiupright chest single view Date and time: January 07, 2025 10:10 AM Comparison December 27, 2024 INDICATIONS: Shortness of breath today. FINDINGS: Mild enlargement cardiac contour Extensive opacity throughout the lungs Prominent osteopenia IMPRESSION: Worsening opacity throughout the lungs, consider pneumonia, pulmonary edema, the appearance should be clinically correlated Dictated By: Christian Cárdenas MD Signed By: <Electronically signed by Christian Cárdenas MD in OV> 01/07/25 1013 Medications / Prescriptions Medications or Prescriptions considered but not ordered:: None Medication administrations:: Medication Administration History Acetaminophen (Acetaminophen 325 Mg Tablet) 650 mg PO Q6H PRN PRN Reason: Fever >100 or pain 1-3 Stop: 02/06/25 14:14 Hydrocodone Bitart/Acetaminophen (Hydrocodone/Apap 5/325 Tablet) 1 tab PO Q4HR PRN PRN Reason: PAIN SCALE 4-6 (Moderate Stop: 01/12/25 14:17 Albuterol/Ipratropium (Albuterol/Ipratropium (Duoneb) Rt Sravani 3 Ml Nebu) 3 ml INH Q4HRRT LISETTE Stop: 02/06/25 14:59 Aspirin (Aspirin Ec 81 Mg Tabec) 81 mg PO QDAY LISETTE Stop: 02/07/25 08:59 Atorvastatin Calcium (Atorvastatin Calcium 20 Mg Tablet) 40 mg PO HS LISETTE Stop: 02/06/25 20:59 Dextrose (Dextrose 50%-Water Inj 50 Ml Syringe) 25 ml IV Q15MIN PRN PRN Reason: BG 50-70 responsive npo pt Stop: 02/06/25 14:48 Dextrose (Dextrose 50%-Water Inj 50 Ml Syringe) 50 ml IV Q15MIN PRN PRN Reason: BG <50 OR BG <70 & pt unresponsive Stop: 02/06/25 14:48 Furosemide (Furosemide Inj 10 Mg/Ml 4ml Vial) 40 mg IVP X1 ONE Stop: 01/07/25 21:01 Furosemide (Furosemide Inj 10 Mg/Ml 4ml Vial) 40 mg IVP BID LISETTE Stop: 02/07/25 08:59 Glucagon (Glucagon Inj 1 Mg Vial) 1 mg IM Q15MIN PRN PRN Reason: BG <70, and no IV access Heparin Sodium (Porcine) (Heparin Sod Inj 5000 Unit/Ml Vial) 5,000 unit SC Q12H LISETTE Stop: 01/21/25 20:59 Piperacillin/Tazobactam/Dextrose (Zosyn) 3.375 gm in 50 mls @ 12.5 mls/hr IV Q8HR LISETTE; Protocol Stop: 01/14/25 15:05 Insulin Human Lispro (Insulin Lispro (Admelog) 1 Unit/0.01 Ml Unit) 0 unit SC AC LISETTE; Protocol Stop: 02/06/25 16:59 Levothyroxine Sodium (Levothyroxine Sodium 100 Mcg Tablet) 100 mcg PO ACBR LISETET Stop: 02/07/25 05:59 Methylprednisolone Sodium Succinate (Methylprednisolone Sod Succ 40 Mg Vial) 40 mg IVP BID LISETTE Stop: 01/15/25 08:59 Metoprolol Succinate (Metoprolol Succinate Xl 25 Mg Tabcr) 25 mg PO HS LISETTE Stop: 02/06/25 20:59 Ondansetron HCl (Ondansetron Inj 2 Mg/Ml Inj 2 Ml) 4 mg IVP Q6H PRN; Protocol PRN Reason: NAUSEA OR VOMITING Stop: 02/06/25 14:17 Pantoprazole Sodium (Pantoprazole Inj 40 Mg Vial) 40 mg IVP QDAY LISETTE Stop: 02/06/25 14:59 Pramipexole Dihydrochloride (Pramipexole 0.25 Mg Tablet) 0.25 mg PO HS LISETTE Stop: 02/06/25 20:59 Sodium Chloride (Sodium Chloride Rt Sravani 0.9% 3 Ml Nebu) 3 ml INH PRN PRN PRN Reason: SOLN Stop: 02/06/25 09:37 Last Admin: 01/07/25 10:05 Dose: 3 ml Documented By: IVELISSE Venlafaxine HCl (Venlafaxine Xr 37.5 Mg Capcr) 150 mg PO HS LISETTE Stop: 02/06/25 20:59 Discontinued Medications Albuterol (Albuterol Rt 2.5 Mg/0.5 Ml Nebu) 5 mg INH X1 ONE Stop: 01/07/25 09:39 Last Admin: 01/07/25 10:04 Dose: 5 mg Documented By: IVELISSE Albuterol (Albuterol Rt 2.5 Mg/0.5 Ml Nebu) 5 mg INH X1 ONE Stop: 01/07/25 10:59 Last Admin: 01/07/25 12:13 Dose: Not Given Documented By: IVELISSE Non-Admin Reason: Duplicate Medication on eMAR Albuterol/Ipratropium (Albuterol/Ipratropium (Duoneb) Rt Sravani 3 Ml Nebu) 3 ml INH X1 ONE Stop: 01/07/25 11:40 Last Admin: 01/07/25 12:13 Dose: 3 ml Documented By: IVELISSE Aspirin (Aspirin Ec 81 Mg Tabec) 81 mg PO X1 ONE Stop: 01/07/25 15:06 Budesonide (Budesonide Rt 0.5 Mg/2 Ml Nebu) 0.25 mg INH X1 ONE Stop: 01/07/25 09:39 Last Admin: 01/07/25 10:04 Dose: 0.25 mg Documented By: IVELISSE Furosemide (Furosemide Inj 10 Mg/Ml 4ml Vial) 40 mg IVP X1 ONE Stop: 01/07/25 10:59 Last Admin: 01/07/25 11:34 Dose: 40 mg Documented By: JOHNNY Doxycycline Hyclate 100 mg/ (Sodium Chloride) 100 mls @ 100 mls/hr IV X1 ONE Stop: 01/07/25 11:57 Last Infusion: 01/07/25 13:50 Dose: Infused Documented By: Admin: 01/07/25 12:00 Dose: 100 mls/hr Documented By: JOHNNY Piperacillin/Tazobactam/Dextrose (Zosyn) 3.375 gm in 50 mls @ 100 mls/hr IV X1 ONE Stop: 01/07/25 11:29 Last Infusion: 01/07/25 13:27 Dose: Infused Documented By: Infusion: 01/07/25 12:01 Dose: Infused Documented By: Admin: 01/07/25 11:37 Dose: 100 mls/hr Documented By: JOHNNY Insulin Human Lispro (Insulin Lispro (Admelog) 1 Unit/0.01 Ml Unit) 5 unit SC X1 ONE Stop: 01/07/25 11:43 Last Admin: 01/07/25 11:56 Dose: Not Given Documented By: JOHNNY Non-Admin Reason: Cancelled by Provider Insulin Human Regular (Insulin Hum Regular 1 Unit/0.01 Ml (Per Unit)) 6 unit SC X1 ONE Stop: 01/07/25 11:02 Last Admin: 01/07/25 11:42 Dose: 6 unit Documented By: Co-signed By: CAYDEN Methylprednisolone Sodium Succinate (Methylprednisolone Sod Succ 62.5 Mg/Ml 2ml Vial) 125 mg IV X1 ONE Stop: 01/07/25 09:39 Last Admin: 01/07/25 10:04 Dose: 125 mg Documented By: CAYDEN Comments: given IVP to 20g Left Hand over 2 minutes Sodium Chloride (Sodium Chloride Rt 10% 15 Ml Nebu) 5 ml INH X1 ONE Stop: 01/07/25 14:24 See above Consultations Consultation(s) initiated? (list below): No Diagnosis Shortness of Breath Differential Diagnosis: acute exacerbation of chronic obstructive airways disease, congestive heart failure and community acquired pneumonia Most likely diagnosis given after review of the tests above:: acute hypoxia bilateral pneumonia acute CHF hyperglycemia acute kidney injury leukocytosis Admission Indicated Admission indicated?: indicated Admission Request Was there a request for admission?: Yes Admission Attestation Admission request attestation: Discussed case with [] from Hospitalist service regarding admission. Discussed patients ED course, exam findings, labs, and radiology results. The Hospitalist [agrees,declines] to accept the patient for admission. Disposition Plan Disposition Plan: Admit Discharge Plan Plan Patient Disposition: Admit Acute Care w/in Hospital Problem List Clinical Impression: Acute exacerbation of chronic obstructive airways disease, Community acquired pneumonia
[2025-01-07 10:00] LABS: Basophils # (Auto) 0.1 Thou/mm3 (0.0-0.2); Basophils % (Auto) 1 % (0-2.5); Eosinophils % (Auto) 0 % (0-10); Hematocrit 30.4 % (36.0-46.0); Hemoglobin 9.6 g/dL (12.0-16.0); Immature Granulocytes % (Auto) 3 % (0-0); Immature Granulocytes Auto 0.51 Thou/mm3 (0.00-0.00); Lymphocytes # (Auto) 0.8 Thou/mm3 (1.0-4.8); Lymphocytes % (Auto) 5 % (10-50); Mean Corpuscular HGB Conc 31.6 g/dl (31.0-37.0); Mean Corpuscular Hemoglobin 29.4 pg (25.0-35.0); Mean Corpuscular Volume 93 fL (80-100); Monocytes # (Auto) 1.2 Thou/mm3 (0.0-0.8); Monocytes % (Auto) 8 % (0-12); Neutrophils # (Auto) 12.5 Thou/mm3 (1.8-7.7); Neutrophils % (Auto) 83 % (37-80); Nucleated Red Blood Cell # 0.06 Thou/mm3 (0.00-0.00); Nucleated Red Blood Cell % 0 /100 WBC (0); Platelet Count 264 Thou/mm3 (140-440); RDW Standard Deviation 53.7 fL (36.4-46.3); Red Blood Count 3.26 Miln/mm3 (4.00-5.20)
[2025-01-07] MEDS: MethylPREDNISolone SOD SUCC 62.5 MG/ML 2ML VIAL 125 MG IV (10:04)
[2025-01-07] MEDS: BUDESONIDE RT 0.5 MG/2 ML NEBU 0.25 MG INH (10:04)
[2025-01-07] MEDS: ALBUTEROL RT 2.5 MG/0.5 ML NEBU 5 MG INH (10:04)
[2025-01-07] MEDS: SODIUM CHLORIDE RT SOL 0.9% 3 ML NEBU INH (10:05)
[2025-01-07 10:16] LABS: Base Excess 13 (-3-3); HCO3 41 mEq/L (20-26); Inspired O2, VO2 Liters 5 L/min; O2 Saturation 99 % (91-98); PCO2 75 mmHg (32.0-48.0); PO2 107 mmHg (83-108); pH, Arterial 7.34 (7.35-7.45)
[2025-01-07 10:18] LABS: Allen Test Not Performed; Puncture Site Left Radial
[2025-01-07 10:18] LABS: Alanine Aminotransferase 22 U/L (10-49); Albumin, Serum 3.9 gm/dL (3.4-4.8); Albumin/Globulin Ratio 1.3 (1.2-2.2); Alkaline Phosphatase 71 U/L (46-116); Anion Gap 6 (7-16); Aspartate Amino Transferase 14 U/L (0-34); BUN/Creatinine Ratio 32 Ratio (12-20); Bilirubin,Total 0.3 mg/dL (0.3-1.2); Blood Urea Nitrogen 42 mg/dL (9-23); Calcium 8.9 mg/dL (8.3-10.6); Carbon Dioxide 37.2 mMol/L (20.0-31.0); Chloride 89 mMol/L (98-107); Creatinine (Component) 1.3 mg/dL (0.6-1.3); Estimated Creatinine Clearance 36.3 mL/min (>60); Glucose 374 mg/dL (74-106); Osmolality,Calculated 290 (275-295); Potassium 4.8 mMol/L (3.4-5.1); Sodium 132 mMol/L (136-145); Total Protein 6.9 gm/dL (5.7-8.2); eGFR 40 See Note
[2025-01-07 10:19] LABS: B-Type Natriuretic Peptide 738 pg/mL (0-100)
--- NOTE | 2025-01-07 11:10 | PD.EDSOB ---
ED SOB =RME/HPI General Chief Complaint: Shortness of Breath/Dyspnea Stated Complaint: SOB Time Seen by Provider: 01/07/25 09:24 Arrival date/time: 01/07/25 09:18 RME / HPI RME / HPI Narrative: The patient is an 89-year-old female with significant past medical history of recurrent UTI, COPD on BiPAP at home, chronic back pain, type 2 diabetes mellitus, gout, depression, mild to moderate pulmonary arterial hypertension, HFpEF with grade 1 diastolic dysfunction, hypothyroidism, s/p lumpectomy of right breast cancer was brought in to the ED for chief complaint of SOB and echolalia. The history was taken by impregnator and drier at bedside. She reported that the patient was hot and cold overnight, and patient is nonambulatory at baseline. She has home physical therapist, and she is fed by her impregnator and drier, and is mostly on BiPAP. She also reported that whenever the patient has UTI, she gets altered. Related Data Home Medications ?Medication ?Instructions ?Recorded ?Confirmed levothyroxine 75 mcg tablet 100 mcg PO QAM 04/18/20 12/27/24 methenamine hippurate 1 gram tablet 1 g PO BID 04/18/20 12/27/24 omeprazole 40 mg capsule,delayed 40 mg PO QDAY 06/04/21 12/27/24 release rosuvastatin 5 mg tablet 10 mg PO HS 06/04/21 12/27/24 venlafaxine 150 mg 150 mg PO HS 06/04/21 12/27/24 capsule,extended release 24 hr furosemide 40 mg tablet 40 mg PO QAM 08/27/22 12/27/24 ascorbic acid (vitamin C) 500 mg 500 mg PO BID 03/19/24 12/27/24 tablet (Vitamin C) aspirin 81 mg tablet 81 mg PO QDAY 03/19/24 12/27/24 diclofenac sodium 1 % topical gel 2 g topical QID 03/19/24 12/27/24 magnesium 500 mg tablet 1,000 mg PO QDAY 03/19/24 12/27/24 calcium 600 mg (as 0.5 tab PO BID 12/27/24 12/27/24 carbonate)-vitamin D3 5 mcg (200 unit) tablet (Calcium 600 + D(3)) cranberry 500 mg capsule 1,000 mg PO QDAY 12/27/24 12/27/24 hydrocodone 10 mg-acetaminophen 1 tab PO Q12H PRN pain 12/27/24 12/27/24 325 mg tablet lactobacillus comb no.10 20 20,000 mmu cells PO QDAY 12/27/24 12/27/24 billion cell capsule (Probiotic) pramipexole 0.5 mg tablet 0.5 mg PO HS 12/27/24 12/27/24 Previous Rx's ?Medication ?Instructions ?Recorded metoprolol succinate 25 mg 25 mg PO QDAY #30 tabs 03/25/24 tablet,extended release 24 hr sitagliptin phosphate 50 mg tablet 50 mg PO QDAY 1 month #30 tabs 12/30/24 (Januvia) Allergies Allergy/AdvReac Type Severity Reaction Status Date / Time cefuroxime Allergy Intermediate Swelling Verified 12/27/24 11:13 of Lip/Tongue/Throat zinc Allergy Intermediate Rash Verified 12/27/24 11:13 iodine Allergy Unknown Verified 12/27/24 11:13 shellfish derived Allergy Unknown Verified 12/27/24 11:13 Sulfa (Sulfonamide Allergy Unknown Verified 12/27/24 11:13 Antibiotics) Review of Systems Review of Systems Systems Reviewed: All systems reviewed, normal except as documented (Above) Past Medical History Past Medical History CARDIAC: Positive Cardiac Disorders, Coronary Artery Disease, Hypercholesterolemia and Hypertension RESPIRATORY: Positive Pulmonary Fibrosis GASTROINTESTINAL: Positive Gastrointestinal Disorders, Gall Bladder Disease, Gastroesophageal Reflux Disease and Obesity GENITOURINARY: Positive Genitourinary Disorders and Kidney Stones REPRODUCTIVE: Positive Breast Cancer MUSCULOSKELETAL: Positive Musculoskeletal Disorders ENDOCRINE: Positive Endocrine Disorders and Hypothyroidism PSYCHO/SOCIAL: Positive Depression and Anxiety OTHER HISTORY: Positive Cancer and Breast Cancer Family History FAMILY HISTORY: Positive Family Cancer Surgical History SURGICAL: Positive Tonsillectomy, Abdominal Surgery and Lumpectomy Social History SMOKING STATUS: Never smoker SECOND HAND EXPOSURE: No ED Exam Narrative Physical exam: General: Elderly female, no acute distress, Alert to her name only HEENT: Moist mucous membranes, oropharynx clear Neck: Supple, No masses, No JVD CVS: S1S2 Regular rate and rhythm, No murmurs, rubs or gallops Lungs: Bilateral wheezing throughout the lung field Abd: Soft, NT/ND, +BS, no organomegaly Ext: No edema, warm and well perfused Skin: No rash Psych: Appropriate mood and affect Course Quality Measures none Orders Category Date Time Status COVID-19 Screening Questionnaire NOW Care 01/07/25 11:03 Active Ladle Liner Helper NOW Care 01/07/25 09:39 Active Continuous Pulse Oximetry NOW Care 01/07/25 09:38 Active Decision to Admit X1 Care 01/07/25 11:03 Active EKG (ED ONLY) *Do not use* NOW Care 01/07/25 09:39 Completed Insert IV NOW Care 01/07/25 09:39 Active EKG (ED Only) Stat Exams 01/07/25 09:38 Draft XR chest 1V portable Stat Exams 01/07/25 09:43 Completed ABG [Arterial Blood Gas] Stat Lab 01/07/25 12:30 Ordered Arterial Blood Gas Stat Lab 01/07/25 10:10 Completed B-Type Natriuretic Peptide Stat Lab 01/07/25 09:55 Completed Blood Culture (Lab) Stat Lab 01/07/25 11:06 Received CBC Stat Lab 01/07/25 09:55 Completed Comprehensive Metabolic Panel Stat Lab 01/07/25 09:55 Completed Lactic Acid [Lactate (Lactic Acid)] Stat Lab 01/07/25 11:50 Ordered Partial Thromboplastin Time Stat Lab 01/07/25 09:55 Completed Procalcitonin Stat Lab 01/07/25 11:50 Ordered Troponin I Stat Lab 01/07/25 09:55 Completed Urinalysis Stat Lab 01/07/25 11:39 Received ALBUTEROL RT 0.5ml [Proventil Rt 0.5ml] Med 01/07/25 09:38 Discontinued 5 mg INH X1 ONE ALBUTEROL RT 0.5ml [Proventil Rt 0.5ml] Med 01/07/25 10:58 Discontinued 5 mg INH X1 ONE Albuterol/Ipratr Rt Sravani [Duoneb Rt Sravani] Med 01/07/25 11:39 Discontinued 3 ml INH X1 ONE Budesonide Rt [Pulmicort Rt Sravani] Med 01/07/25 09:38 Discontinued 0.25 mg INH X1 ONE Doxycycline Inj [Vibramycin Inj] 100 mg Med 01/07/25 10:58 Discontinued Sodium Chloride 0.9% (Pop) [NS 0.9% mini bag] 100 ml IV X1 Furosemide Inj [Lasix Inj] Med 01/07/25 10:58 Discontinued 40 mg IVP X1 ONE INSULIN LISPRO (AdmeLOG) [HumaLOG] Med 01/07/25 11:42 Discontinued 5 unit SC X1 ONE Insulin Regular Med 01/07/25 11:01 Discontinued 6 unit SC X1 ONE MethylPREDNISolone.* [SoluMEDROL Inj] Med 01/07/25 09:38 Discontinued 125 mg IV X1 ONE Piper/Tazo 3.375 gm Premix [Zosyn] Med 01/07/25 11:00 Discontinued 3.375 gm in 50 ml IV X1 Sodium Chloride Rt Sravani 0.9% [NS Rt Sravani 0.9%] Med 01/07/25 09:38 Active 3 ml INH PRN PRN BiPAP / CPAP NOW RT 01/07/25 11:01 Active Oxygen Delivery NOW RT 01/07/25 09:38 Active Vital Signs Vital signs: Vital Signs Temperature 98.5 F 01/07/25 09:37 Pulse Rate 106 H 01/07/25 09:37 Respiratory Rate 22 H 01/07/25 09:37 Blood Pressure 163/93 H 01/07/25 09:37 Pulse Oximetry (%) 91 L 01/07/25 09:37 Oxygen Delivery Method Nasal Cannula 01/07/25 09:37 Oxygen Flow Rate 4 01/07/25 09:37 Shortness of Breath / Dyspnea MDM Narrative MDM Narrative:: The patient is an 89-year-old female with significant past medical history of recurrent UTI, COPD on BiPAP at home, chronic back pain, type 2 diabetes mellitus, gout, depression, mild to moderate pulmonary arterial hypertension, HFpEF with grade 1 diastolic dysfunction, hypothyroidism, s/p lumpectomy of right breast cancer was brought in to the ED for chief complaint of SOB and echolalia. The history was taken by impregnator and drier at bedside. She reported that the patient was hot and cold overnight, and patient is nonambulatory at baseline. She has home physical therapist, and she is fed by her impregnator and drier, and is mostly on BiPAP. She also reported that whenever the patient has UTI, she gets altered. Vitals were significant for BP 163/93, pulse 106, RR 22, temperature 98.5, O2 sat 91, saturating 91% on 4 L of nasal cannula, FiO2 40%. Fingerstick blood sugar was 396, white count 15.0, hemoglobin 9.6, ABG revealed pH 7.34, GHO283, bicarb 41, chemistry panel revealed sodium 132, chloride 89, BUN 42, creatinine 1.3, blood sugar 274, BNP 738. UA, Pro-Judah and lactic acid is pending. EKG revealed sinus tachycardia with RBBB. Chest x-ray revealed Worsening opacity throughout the lungs, consider pneumonia, pulmonary edema. Patient data External records reviewed:: [facility] previous records Clinical information provided by:: impregnator and drier Social determinants that could affect healthcare access:: none Patient has the following chronic illnesses:: See above How is presenting disease/condition affected by chronic disease/condition?: exacerbated by Evaluation data The following diagnostics were reviewed and interpreted by me:: lab results, radiology exam(s) and EKG tracing(s) Lab and/or radiology exams considered but not ordered:: None Interpretation Summary: See above Medications / Prescriptions Medications or Prescriptions considered but not ordered:: None Medication administrations:: Medication Administration History Sodium Chloride (Sodium Chloride Rt Sravani 0.9% 3 Ml Nebu) 3 ml INH PRN PRN PRN Reason: SOLN Stop: 02/06/25 09:37 Last Admin: 01/07/25 10:05 Dose: 3 ml Documented By: IVELISSE Discontinued Medications Albuterol (Albuterol Rt 2.5 Mg/0.5 Ml Nebu) 5 mg INH X1 ONE Stop: 01/07/25 09:39 Last Admin: 01/07/25 10:04 Dose: 5 mg Documented By: IVELISSE Albuterol (Albuterol Rt 2.5 Mg/0.5 Ml Nebu) 5 mg INH X1 ONE Stop: 01/07/25 10:59 Last Admin: 01/07/25 12:13 Dose: Not Given Documented By: IVELISSE Non-Admin Reason: Duplicate Medication on eMAR Albuterol/Ipratropium (Albuterol/Ipratropium (Duoneb) Rt Sravani 3 Ml Nebu) 3 ml INH X1 ONE Stop: 01/07/25 11:40 Last Admin: 01/07/25 12:13 Dose: 3 ml Documented By: IVELISSE Budesonide (Budesonide Rt 0.5 Mg/2 Ml Nebu) 0.25 mg INH X1 ONE Stop: 01/07/25 09:39 Last Admin: 01/07/25 10:04 Dose: 0.25 mg Documented By: IVELISSE Furosemide (Furosemide Inj 10 Mg/Ml 4ml Vial) 40 mg IVP X1 ONE Stop: 01/07/25 10:59 Last Admin: 01/07/25 11:34 Dose: 40 mg Documented By: JOHNNY Doxycycline Hyclate 100 mg/ (Sodium Chloride) 100 mls @ 100 mls/hr IV X1 ONE Stop: 01/07/25 11:57 Last Admin: 01/07/25 12:00 Dose: 100 mls/hr Documented By: JOHNNY Piperacillin/Tazobactam/Dextrose (Zosyn) 3.375 gm in 50 mls @ 100 mls/hr IV X1 ONE Stop: 01/07/25 11:29 Last Infusion: 01/07/25 12:01 Dose: Infused Documented By: Admin: 01/07/25 11:37 Dose: 100 mls/hr Documented By: JOHNNY Insulin Human Lispro (Insulin Lispro (Admelog) 1 Unit/0.01 Ml Unit) 5 unit SC X1 ONE Stop: 01/07/25 11:43 Last Admin: 01/07/25 11:56 Dose: Not Given Documented By: JOHNNY Non-Admin Reason: Cancelled by Provider Insulin Human Regular (Insulin Hum Regular 1 Unit/0.01 Ml (Per Unit)) 6 unit SC X1 ONE Stop: 01/07/25 11:02 Last Admin: 01/07/25 11:42 Dose: 6 unit Documented By: JOHNNY Co-signed By: CAYDEN Methylprednisolone Sodium Succinate (Methylprednisolone Sod Succ 62.5 Mg/Ml 2ml Vial) 125 mg IV X1 ONE Stop: 01/07/25 09:39 Last Admin: 01/07/25 10:04 Dose: 125 mg Documented By: CAYDEN Comments: given IVP to 20g Left Hand over 2 minutes See above Consultations Consultation(s) initiated? (list below): Yes Consultation #1 (Physician, Specialty, Details): Hopsitalist Dr. Mik MD Time: 11:55 Diagnosis Shortness of Breath Differential Diagnosis: acute exacerbation of chronic obstructive airways disease, congestive heart failure and community acquired pneumonia Most likely diagnosis given after review of the tests above:: acute exacerbation of COPD. Admission Indicated Admission indicated?: indicated Admission Request Was there a request for admission?: Yes Admission Attestation Admission request attestation: Discussed case with Dr. Houser from Hospitalist service regarding admission. Discussed patients ED course, exam findings, labs, and radiology results. The Hospitalist agrees to accept the patient for admission. Disposition Plan Disposition Plan: Admit Discharge Plan Plan Patient Disposition: Admit Acute Care w/in Hospital Prescriptions/Referrals Prescriptions/Med Rec: No Action levothyroxine 75 mcg Tablet 100 mcg PO QAM Rx Instructions: pt now taking 100 MCG methenamine hippurate 1 gram tablet 1 g PO BID Patient Comments: TAKE 1 TABLET BY MOUTH TWICE A DAY WITH 500 MG OF VITAMIN C Rx Instructions: TAKE 1 TABLET BY MOUTH TWICE A DAY WITH 500 MG OF VITAMIN C venlafaxine 150 mg capsule,extended release 24hr 150 mg PO HS omeprazole 40 mg Capsule,Delayed Release(Dr/Ec) 40 mg PO QDAY rosuvastatin 5 mg Tablet 10 mg PO HS aspirin 81 mg Tablet 81 mg PO QDAY ascorbic acid (vitamin C) [Vitamin C] 500 mg Tablet 500 mg PO BID diclofenac sodium 1 % Gel 2 g TOPICAL QID Rx Instructions: apply to single elbow, wrist or hand; for hand includes palm/fingers/back of hand magnesium 500 mg Tablet 1,000 mg PO QDAY metoprolol succinate 25 mg Tablet Extended Release 24 Hr 25 mg PO QDAY Qty: 30 0RF furosemide 40 mg tablet 40 mg PO QAM Patient Comments: TAKE 1 TABLET BY MOUTH EVERY DAY IN THE MORNING hydrocodone-acetaminophen 10-325 mg tablet 1 tab PO Q12H PRN (Reason: pain) pramipexole 0.5 mg tablet 0.5 mg PO HS Patient Comments: TAKE 1 TABLET BY MOUTH EVERYDAY AT BEDTIME cranberry 500 mg capsule 1,000 mg PO QDAY Rx Instructions: administer with a meal Probiotic 20 billion cell capsule 20,000 mmu cells PO QDAY Rx Instructions: administer with a meal calcium carbonate-vitamin D3 [Calcium 600 + D(3)] 600 mg-5 mcg (200 unit) tablet 0.5 tab PO BID Januvia 50 mg tablet 50 mg PO QDAY 30 Days Qty: 30 3RF Referrals: Other,. [Primary Care Provider] - In 1 week Problem List Clinical Impression: Acute exacerbation of chronic obstructive airways disease, Community acquired pneumonia Patient/Caregiver Discharge Instructions Print Language: Turkmen Stand Alone Forms: Ysabel Award Info., Patient Portal Info Letter
[2025-01-07] MEDS: FUROSEMIDE INJ 10 MG/ML 4ML VIAL 40 MG IVP ×2 (11:34→20:27)
[2025-01-07] MEDS: PIPER/TAZO 3.375 GM PREMIX 3.375 GM/50 ML BAG IV ×2 (11:37→21:31)
[2025-01-07] MEDS: INSULIN HUM REGULAR 1 UNIT/0.01 ML (PER UNIT) 6 UNIT SC (11:42)
[2025-01-07 11:48] LABS: Collection Type, Urine Clean Catch
[2025-01-07] MEDS: DOXYCYCLINE INJ 100 MG in SODIUM CHLORIDE 0.9% (POP) 100 ML IV (12:00)
[2025-01-07] MEDS: ALBUTEROL/IPRATROPIUM (Duoneb) RT SOL 3 ML NEBU INH ×4 (12:13→22:15)
[2025-01-07 12:28] LABS: Bacteria,Urine Rare; Bilirubin,Urine Negative (Negative); Blood,Urine Negative (Negative); Budding Yeast,Urine Present; Clarity,Urine Turbid (Clear/Hazy); Color,Urine Lt-Yellow (Lt Yel-Yel); Glucose, Urine Trace (Negative); Hyaline Casts,Urine < 1 /hpf (0-1); Ketones,Urine Negative (Negative); Leukocyte Esterase,Urine Positive (Negative); Nitrite,Urine Negative (Negative); Protein,Urine Trace (Neg - Trace); RBC,Urine 21 /hpf (0-3); Specific Gravity,Urine 1.015 (1.001-1.035); Squamous Epithelial Cell,Urine 3 /hpf (0-5); Urobilinogen,Urine Negative mg/dL (0.0-1.0); WBC,Urine 23 /hpf (0-5)
[2025-01-07 12:38] LABS: Lactate (Lactic Acid) 1.7 mMol/L (0.4-2.0)
[2025-01-07 12:40] LABS: Allen Test Not Performed; Base Excess 13 (-3-3); HCO3 41 mEq/L (20-26); Inspired Oxygen, FIO2 40 %; O2 Saturation 96 % (91-98); PCO2 73 mmHg (32.0-48.0); PO2 79 mmHg (83-108); Puncture Site Site Not Noted; pH, Arterial 7.36 (7.35-7.45)
[2025-01-07 12:46] LABS: Procalcitonin 0.45 ng/ml (0.0-0.49)
--- NOTE | 2025-01-07 14:30 | PD.RESHP ---
Documentation for date of: 01/07/25 [facility] History of Present Illness History of present illness: History is limited at this time as pt is poor historian and is on biPAP currently Adelaida is a 89-year-old female with past medical history of hypothyroidism, recurrent UTIs, chronic respiratory failure, right breast cancer status post lumpectomy, bedbound, chronic back pain, type 2 diabetes, GERD, depression, pulmonary fibrosis ?, HFpEF (G1DD) who comes to [facility] for evaluation of SOB that has been worsening since pt was discharged last week for similar symptoms. Pt's caregiver is at bedside and pt is currently on biPAP. Caregiver reports that pt did not get back to her usual self once discharged last week as she is usually more talkative. Caregiver also says that her oxygen levels have been running low at home. She denies any recent sick contacts or recent travel for the patient. Of note, she was started on Januvia upon d/c to hospital, however, her PCP put her on 10 units of Lantus. Pt's caregiver is unaware of who her vocational services specialist is and denies having a lung doctor. It was reported she uses 2L at home and that she uses biPAP at night and when she takes naps. She does have 3 caregivers that live in her house. Caregiver denied pt had any CP, NVD, fever or chills. ED Course: Pt had arrived to the ED afebrile with a heart rate of 105, respiratory rate 22, blood pressure 146/85 and was saturating 94% on 4L. She was worked up and was found to have sodium of 132, chloride 89, potassium 4.8, bicarb 37, BUN/creatinine of 42 and 1.3 respectively, bicarb 37, glucose 374, white count 15, hemoglobin 9.6, platelets 264, pH on ABG 7.34, pCO2 75, bicarb 41. Checks x-ray showed worsening opacity in the lung and pulmonary edema. EKG was done which showed sinus tachycardia, right bundle branch block in V2, QTc of 440. Patient was put on BiPAP and was given budesonide x 1, albuterol x 1 Solu-Medrol 125, Lasix 40, 6 units of regular insulin, DuoNeb x 1, Zosyn x 1 and doxycycline x 1. Medicine was consulted patient nasal floors History as limited as pt's caregiver could not answer all questions PMHx: As above Surgeries: Lumpectomy, Cholecystectomy Meds: Lantus, pending med rec Allergies:Sulfa abx, cefuroxime Family Hx:Limited Social Hx:Pt lives in her house with 3 caregivers. Denied heavy EtOH, or susbstance abuse, however unsure if there is smoking hx and smoking exposure hx Review of Systems Review of Systems Narrative Review of Systems: 12 point ROS is limited at this time as pt is currently on biPAP Exam Vital Signs Temp Pulse Resp BP Pulse Ox O2 Del Method O2 Flow Rate 98.2 F 100 26 H 136/76 H 92 L BiPAP 4 01/07/25 14:08 01/07/25 14:08 01/07/25 14:08 01/07/25 14:08 01/07/25 14:08 01/07/25 14:08 01/07/25 10:06 FiO2 40 01/07/25 12:14 Narrative Exam Limited Exam as pt is on biPAP General: AAOx2, in mild distress, unkempt, on biPAP, obese woman HEENT: on biPAP, ERRLA, Cardiovascular: Tachycardic, possible EJM Pulmonary: Crackles heard diffusely, currently on biPAP, appears to be in respiratory distress GI: No tenderness to palpitation, bowel sounds present Extremities: Trace edema in lower extremities bilaterally, dorsalis pedis pulses +2 bilaterally Neuro: AAOx2, could not perform as pt is on biPAP Psych: Not able to fully cooperate Results: Labs 01/08/25 04:55 01/08/25 04:55 Labs: Short CBC 01/07/25 Range/Units 09:55 WBC 15.0 H (3.6-11.0) Thou/mm3 Hgb 9.6 L (12.0-16.0) g/dL Hct 30.4 L (36.0-46.0) % Plt Count 264 (140-440) Thou/mm3 BMP 01/07/25 09:55 Sodium 132 L Potassium 4.8 Chloride 89 L Carbon Dioxide 37.2 H BUN 42 H Creatinine 1.3 Glucose 374 H Calcium 8.9 Cardiac Enzymes 01/07/25 Range/Units 09:55 Troponin I 0.040 (0.0-0.045) ng/mL Liver Function 01/07/25 Range/Units 09:55 Total Bilirubin 0.3 (0.3-1.2) mg/dL AST 14 (0-34) U/L ALT 22 (10-49) U/L Alkaline Phosphatase 71 (46-116) U/L Albumin 3.9 (3.4-4.8) gm/dL Urine 01/07/25 Range/Units 11:39 Urine Color Lt-Yellow (Lt Yel-Yel) Urine Clarity Turbid A (Clear/Hazy) Urine pH 6.0 (5.0-7.0) Ur Specific [place] 1.015 (1.001-1.035) Urine Protein Trace (Neg - Trace) Urine Glucose (UA) Trace (Negative) ABG Interpretation ABG results: 01/07/25 01/07/25 10:10 12:36 ABG pH 7.34 L 7.36 ABG pCO2 75 H* 73 H* ABG pO2 107 79 L D ABG HCO3 41 H 41 H ABG O2 Saturation 99 H 96 ABG Base Excess 13 H 13 H Quality Measures Quality Measures none Advance care planning discussed with:: patient Medications Home Medications and Allergies Home Medications ?Medication ?Instructions ?Recorded ?Confirmed ?Type levothyroxine 75 mcg tablet 100 mcg PO QAM 04/18/20 12/27/24 History methenamine hippurate 1 gram tablet 1 g PO BID 04/18/20 12/27/24 History omeprazole 40 mg capsule,delayed 40 mg PO QDAY 06/04/21 12/27/24 History release rosuvastatin 5 mg tablet 10 mg PO HS 06/04/21 12/27/24 History venlafaxine 150 mg 150 mg PO HS 06/04/21 12/27/24 History capsule,extended release 24 hr furosemide 40 mg tablet 40 mg PO QAM 08/27/22 12/27/24 History ascorbic acid (vitamin C) 500 mg 500 mg PO BID 03/19/24 12/27/24 History tablet (Vitamin C) aspirin 81 mg tablet 81 mg PO QDAY 03/19/24 12/27/24 History diclofenac sodium 1 % topical gel 2 g topical QID 03/19/24 12/27/24 History magnesium 500 mg tablet 1,000 mg PO QDAY 03/19/24 12/27/24 History calcium 600 mg (as 0.5 tab PO BID 12/27/24 12/27/24 History carbonate)-vitamin D3 5 mcg (200 unit) tablet (Calcium 600 + D(3)) cranberry 500 mg capsule 1,000 mg PO QDAY 12/27/24 12/27/24 History hydrocodone 10 mg-acetaminophen 1 tab PO Q12H PRN pain 12/27/24 12/27/24 History 325 mg tablet lactobacillus comb no.10 20 20,000 mmu cells PO QDAY 12/27/24 12/27/24 History billion cell capsule (Probiotic) pramipexole 0.5 mg tablet 0.5 mg PO HS 12/27/24 12/27/24 History Allergies Allergy/AdvReac Type Severity Reaction Status Date / Time cefuroxime Allergy Intermediate Swelling Verified 12/27/24 11:13 of Lip/Tongue/Throat zinc Allergy Intermediate Rash Verified 12/27/24 11:13 iodine Allergy Unknown Verified 12/27/24 11:13 shellfish derived Allergy Unknown Verified 12/27/24 11:13 Sulfa (Sulfonamide Allergy Unknown Verified 12/27/24 11:13 Antibiotics) Visit Medications Acetaminophen (Acetaminophen 325 Mg Tablet) 650 mg PO Q6H PRN PRN Reason: Fever >100 or pain 1-3 Stop: 02/06/25 14:14 Hydrocodone Bitart/Acetaminophen (Hydrocodone/Apap 5/325 Tablet) 1 tab PO Q4HR PRN PRN Reason: PAIN SCALE 4-6 (Moderate Stop: 01/12/25 14:17 Albuterol/Ipratropium (Albuterol/Ipratropium (Duoneb) Rt Sravani 3 Ml Nebu) 3 ml INH Q4HRRT LISETTE Stop: 02/06/25 14:59 Heparin Sodium (Porcine) (Heparin Sod Inj 5000 Unit/Ml Vial) 5,000 unit SC Q12H LISETTE Stop: 01/21/25 20:59 Ondansetron HCl (Ondansetron Inj 2 Mg/Ml Inj 2 Ml) 4 mg IVP Q6H PRN; Protocol PRN Reason: NAUSEA OR VOMITING Stop: 02/06/25 14:17 Sodium Chloride (Sodium Chloride Rt Sravani 0.9% 3 Ml Nebu) 3 ml INH PRN PRN PRN Reason: SOLN Stop: 02/06/25 09:37 Last Admin: 01/07/25 10:05 Dose: 3 ml Sodium Chloride (Sodium Chloride Rt 10% 15 Ml Nebu) 5 ml INH X1 ONE Stop: 01/07/25 14:24 Discontinued Medications Albuterol (Albuterol Rt 2.5 Mg/0.5 Ml Nebu) 5 mg INH X1 ONE Stop: 01/07/25 09:39 Last Admin: 01/07/25 10:04 Dose: 5 mg Albuterol (Albuterol Rt 2.5 Mg/0.5 Ml Nebu) 5 mg INH X1 ONE Stop: 01/07/25 10:59 Last Admin: 01/07/25 12:13 Dose: Not Given Albuterol/Ipratropium (Albuterol/Ipratropium (Duoneb) Rt Sravani 3 Ml Nebu) 3 ml INH X1 ONE Stop: 01/07/25 11:40 Last Admin: 01/07/25 12:13 Dose: 3 ml Budesonide (Budesonide Rt 0.5 Mg/2 Ml Nebu) 0.25 mg INH X1 ONE Stop: 01/07/25 09:39 Last Admin: 01/07/25 10:04 Dose: 0.25 mg Furosemide (Furosemide Inj 10 Mg/Ml 4ml Vial) 40 mg IVP X1 ONE Stop: 01/07/25 10:59 Last Admin: 01/07/25 11:34 Dose: 40 mg Doxycycline Hyclate 100 mg/ (Sodium Chloride) 100 mls @ 100 mls/hr IV X1 ONE Stop: 01/07/25 11:57 Last Infusion: 01/07/25 13:50 Dose: Infused Piperacillin/Tazobactam/Dextrose (Zosyn) 3.375 gm in 50 mls @ 100 mls/hr IV X1 ONE Stop: 01/07/25 11:29 Last Infusion: 01/07/25 13:27 Dose: Infused Insulin Human Lispro (Insulin Lispro (Admelog) 1 Unit/0.01 Ml Unit) 5 unit SC X1 ONE Stop: 01/07/25 11:43 Last Admin: 01/07/25 11:56 Dose: Not Given Insulin Human Regular (Insulin Hum Regular 1 Unit/0.01 Ml (Per Unit)) 6 unit SC X1 ONE Stop: 01/07/25 11:02 Last Admin: 01/07/25 11:42 Dose: 6 unit Methylprednisolone Sodium Succinate (Methylprednisolone Sod Succ 62.5 Mg/Ml 2ml Vial) 125 mg IV X1 ONE Stop: 01/07/25 09:39 Last Admin: 01/07/25 10:04 Dose: 125 mg Assessment & Plan Plan Assessment Adelaida is a 89-year-old female with past medical history of hypothyroidism, recurrent UTIs, chronic respiratory failure, right breast cancer status post lumpectomy, bedbound, chronic back pain, type 2 diabetes, GERD, depression, pulmonary fibrosis ?, HFpEF (G1DD) who is currently admitted for acute on chronic hypoxic hypercarbic respiratory failure that is multifactorial. #Acute on chronic hypoxic hypercarbic respiratory failure #Acute on chronic exacerbation of HFpEF with grade 1 diastolic dysfunction #? Pulmonary fibrosis Patient came in with an ABG of pH 7.34, pCO2 75, PO2 of 107, bicarb 41 On discharge patient had ABG that was similar to those results Patient does have chronic compensation of metabolic alkalosis, bicarb seems to be at least 35 at baseline Patient does have chronic CO2 retention as well, she has been as low as the 60s, however today she is 75 Patient has multifactorial respiratory failure at this time likely related to heart failure, lung disease and infection Patient is not on Jardiance at home part of GDMT therapy for heart failure as she has chronic UTIs She takes Lasix 40 mg at home Patient will need aggressive diuresis for improvement of respiratory failure There have been some imaging reads with pulmonary fibrosis, however not confirmed Echo from December 2024: Normal left ventricular size and function. Approximate ejection fraction is 65%. . Trace mitral and trace tricuspid regurgitation No wall motion abnormalities noted. Plan: ? Lasix 40 mg IV twice daily ? Strict I's and O's ? Fluid Restriction 1500ml ? Daily weights ? Keep Mag > 2 and K > 4 ? DuoNeb every 4 hours ? Solu-Medrol 40 mg IV twice daily ? Metoprolol XL 25 mg starting tonight ? BiPAP at bedtime ? VBG now ? Chest physiotherapy #Community Acquired Pneumonia Patient will need broad-spectrum coverage Will hold on anaerobic coverage at this time Chest x-ray does show consolidations Plan: ? Zosyn 3.375 mg IV every 8 hours (01/07- ? Sputum culture #Respiratory acidosis with metabolic alkalosis Patient's pH on ABG shows pH is 7.36, pCO2 73, bicarb of 41 This is a chronic respiratory acidosis as patient is chronic CO2 retainer, appropriate compensation would be expected to be 33 in a typical patient, however patient is at 41 currently for bicarb Hard to assess pt's baseline Bicarb, but it seems to be 35 which would demonstrate appropriate compensation Plan: ? Treat as above ? Trend with CMP #History of coronary artery disease Patient has had LAD severely calcified seen in previous imaging No stents or CABG on previous imaging Plan: ? Resume home aspirin #Chronic UTI Patient appears to have chronic history with Pseudomonas and multiple other urine infections W Will follow-up with urine culture Patient appears to be colonized, however unable to assess if patient asymptomatic Likely related to her bedbound status Plan: ? Continue with Zosyn as above #Hypertension #Hyperlipidemia Chronic LDL in 2023 81 Plan: ? Resumed home Metoprolol 25 mg XL ? Lipitor 40 mg HS #Insulin-dependent type 2 diabetes mellitus A1c of 7 in 2024 May Patient apparently takes Lantus at home, will resume upon med rec Plan: ? Sliding scale insulin ? Hypoglycemic protocol in place ? Blood sugar checks with meals #Normocytic anemia DDx: GI Bleed, Cancer, chronic anemia, medication induced FOBT? None NSAID use? Unknown Blood thinner use? Aspirin Plan: ? Trend CBC ? Iron studies panel with ferritin ? Peripheral blood smear ? Transfusion protocol hemoglobin below 7 ? Avoiding any NSAIDs ? Protonix 40 mg daily #History of depression #History of restless leg syndrome Plan: ? Resumed home Effexor 150 mg at night ? Resumed home on Pramipexole 0.25 mg at bedtime #Health Maintenance Disposition: Telemetry DVT prophylaxis: Heparin GI prophylaxis: Protonix Diet: Nurse swallow screen pending CODE STATUS:DNR Patient seen and care discussed with my attending physician, Dr. Live Aguila, PGY-1 Attending Provider Attestation/Addendum I have discussed and was present for the essential components of the history, physical examination, diagnosis, and treatment plan with the resident. I agree with the patient's care as documented by the resident and amended herein by me. Jason Mancini DO. Although this document has been carefully reviewed, there may still be some phonetic and other typographical errors. These errors are purely grammatical due to imperfections in the software program and should not be construed in any way to compromise the substance of the patient's medical care during this visit.
--- NOTE | 2025-01-07 14:37 | PC.CC ---
Patient is a 89 year-old female who presents to the hospital for COPD/HF Exac. ASWAlpa and [employer]OPE[employer]ER FINISHER Student Lissy made [id number] contact with patient. ASW introduced self, role, and reason for visit to caregiver Jo who is at bedside and reports she is just one of her caregiver but the SW could make contact with patient's nephew who is listed as patient's next of kin. Patient was not alert and oriented to self, location, and situation. ASW made telephone contact with patient's nephew to complete initial assessment. Per nephew, patient has caregivers that he hires 10/03 as patient is basically bedbound and can only sit in her wheelchair for very short amount of time. Patient requires max assist with her ADLs. Patient requires 2L oxygen which she has at home. Patient's primary provider is care provider is Dr. Macias and pharmacy of choice is [facility]. Upon discharge the patient's nephew reports he would like for patient to return back home as previously stated she has caregivers at home. senior web services developer to follow up for any needs.
[2025-01-07 15:35] LABS: Base Excess, Venous 15 (-3-3); O2 Saturation, Venous 98 % (96-97); PCO2, Venous 54 mmHg (36-56); PO2, Venous 80 mmHg (15-58); pH, Venous 7.48 (7.33-7.66)
[2025-01-07 15:49] LABS: Magnesium 2.5 mg/dL (1.6-2.6)
[2025-01-07 15:53] LABS: Iron 16 mcg/dL (50-170); Percent Iron Saturation 5 % (20-55); Total Iron Binding Capacity 284 mcg/dL (250-425); Unsaturated Iron Binding 268 (225-295)
[2025-01-07 16:40] LABS: Path Review Blood Smear Sent to Pathologist
--- NOTE | 2025-01-07 16:52 | PC.CC ---
pt is open with [facility].
[2025-01-07] MEDS: INSULIN LISPRO (AdmeLOG) 1 UNIT/0.01 ML UNIT SC (17:31)
[2025-01-07] MEDS: PANTOPRAZOLE INJ 40 MG VIAL IVP (17:31)
[2025-01-07] MEDS: ASPIRIN EC 81 MG TABEC PO (17:31)
[2025-01-07] MEDS: HEPARIN SOD INJ 5000 UNIT/ML VIAL SC (20:26)
[2025-01-07] MEDS: INSULIN GLARGINE (Lantus) 5 UNIT/0.05 ML (PER 5 UNITS) 10 UNIT SC (20:27)
[2025-01-07] MEDS: ATORVASTATIN CALCIUM 20 MG TABLET 40 MG PO (20:33)
[2025-01-07] MEDS: VENLAFAXINE XR 37.5 MG CAPCR 150 MG PO (20:33)
[2025-01-07] MEDS: PRAMIPEXOLE 0.25 MG TABLET PO (20:33)
[2025-01-07] MEDS: METOPROLOL SUCCINATE XL 25 MG TABCR PO (20:33)
[2025-01-08] VITALS (15 sets, daily range): BP systolic 100–150; BP diastolic 57–81; PULSE 79–97; RESP 12–29; TEMP 35.9–37.2; O2SAT 92–100; BMI 34.3
[2025-01-08] MEDS: ALBUTEROL/IPRATROPIUM (Duoneb) RT SOL 3 ML NEBU INH ×5 (03:45→18:23)
[2025-01-08] MEDS: PIPER/TAZO 3.375 GM PREMIX 3.375 GM/50 ML BAG IV ×3 (05:06→21:28)
[2025-01-08] MEDS: LEVOTHYROXINE SODIUM 100 MCG TABLET PO (05:06)
[2025-01-08 05:59] LABS: Basophils # (Auto) 0.1 Thou/mm3 (0.0-0.2); Basophils % (Auto) 1 % (0-2.5); Eosinophils % (Auto) 0 % (0-10); Hematocrit 29.6 % (36.0-46.0); Hemoglobin 9.1 g/dL (12.0-16.0); Immature Granulocytes % (Auto) 4 % (0-0); Immature Granulocytes Auto 0.58 Thou/mm3 (0.00-0.00); Lymphocytes # (Auto) 0.9 Thou/mm3 (1.0-4.8); Lymphocytes % (Auto) 7 % (10-50); Mean Corpuscular HGB Conc 30.7 g/dl (31.0-37.0); Mean Corpuscular Hemoglobin 28.6 pg (25.0-35.0); Mean Corpuscular Volume 93 fL (80-100); Monocytes # (Auto) 0.9 Thou/mm3 (0.0-0.8); Monocytes % (Auto) 7 % (0-12); Neutrophils # (Auto) 11.4 Thou/mm3 (1.8-7.7); Neutrophils % (Auto) 82 % (37-80); Nucleated Red Blood Cell # 0.07 Thou/mm3 (0.00-0.00); Nucleated Red Blood Cell % 1 /100 WBC (0); Platelet Count 236 Thou/mm3 (140-440); RDW Standard Deviation 52.1 fL (36.4-46.3); Red Blood Count 3.18 Miln/mm3 (4.00-5.20); White Blood Count 13.9 Thou/mm3 (3.6-11.0)
[2025-01-08 06:18] LABS: Partial Thromboplastin Time 27.3 Seconds (22.0-36.0); Prothrombin Time 10.9 Seconds (9.0-12.2)
[2025-01-08 06:46] LABS: Alanine Aminotransferase 19 U/L (10-49); Albumin, Serum 3.4 gm/dL (3.4-4.8); Albumin/Globulin Ratio 1.4 (1.2-2.2); Alkaline Phosphatase 57 U/L (46-116); Anion Gap 9 (7-16); Aspartate Amino Transferase 13 U/L (0-34); BUN/Creatinine Ratio 37 Ratio (12-20); Bilirubin,Total 0.3 mg/dL (0.3-1.2); Blood Urea Nitrogen 48 mg/dL (9-23); Calcium 8.6 mg/dL (8.3-10.6); Calcium (Corrected) 9.1 mg/dL (8.5-10.1); Carbon Dioxide > 40.0 mMol/L (20.0-31.0); Chloride 88 mMol/L (98-107); Creatinine (Component) 1.3 mg/dL (0.6-1.3); Estimated Creatinine Clearance 36.2 mL/min (>60); Globulin 2.5 gm/dL (2.3-3.5); Glucose 282 mg/dL (74-106); Magnesium 2.4 mg/dL (1.6-2.6); Osmolality,Calculated 296 (275-295); Phosphorous 2.2 mg/dL (2.4-5.1); Potassium 4.8 mMol/L (3.4-5.1); Sodium 137 mMol/L (136-145); Total Protein 5.9 gm/dL (5.7-8.2); eGFR 40 See Note
[2025-01-08 07:03] LABS: Ferritin 80 ng/mL (7.3-270.7)
[2025-01-08] MEDS: INSULIN LISPRO (AdmeLOG) 1 UNIT/0.01 ML UNIT SC ×4 (07:27→21:34)
--- NOTE | 2025-01-08 07:33 | ESPR_ITS ---
Documentation for date of: 01/08/25 Subjective Subjective Interval history: Patient was seen and examined at bedside this AM. No acute exents overnight. Patient NPO, adequate urine output and mentation is at baseline. Patient says she does not feel well today, however denies any shortness of breath, chest pain, palpitation and dizziness. Overnight patient was on BiPAP saturating at 96%, repeat VBG this a.m. showed pH 7.43 and PCO2 improved to 69 from 72. Will wean patient from BiPAP to nasal cannula. Over the past 24 hours patient had a negative fluid balance of 300 cc currently on IV diuresis with Lasix 40 Mg IV twice daily. Patient's phosphorus 2.2, WBC down trended to 13.9 and hemoglobin decreased to 9.1. Repleted with sodium phosphate 15 mmol IV x 1. Blood cultures and sputum cultures still pending at this point. Also ordered cocci serology to rule this out as a etiology for her COPD/CHF exacerbation. Cardiology, Dr. Mccann was also consulted for her CHF exacerbation. Exam Vital Signs Temp Pulse Resp BP Pulse Ox O2 Del Method O2 Flow Rate 99.0 F 80 27 H 144/81 H 99 BiPAP 4 01/08/25 04:00 01/08/25 06:59 01/08/25 06:59 01/08/25 04:00 01/08/25 06:59 01/08/25 04:00 01/07/25 16:16 FiO2 40 01/08/25 06:59 Narrative Exam Constitutional Alert, oriented x 3 and comfortable. Elderly female on nasal cannula. HEENT Vision grossly intact. Patent nares. Trachea midline Respiratory Chest normal on inspection and reduced air entry at bases with mild atelectasis. Cardiovascular S1 and S2 audible, RRR. No murmurs carotid bruit. No gross JVD. Abdominal Soft, obese and non tender to palpation in all quadrants. BS + Genitourinary No bladder tenderness, no flank pain. Normal to palpation Musculoskeletal Extremities tone within normal limits. Trace lower extremity edema Neurological CN II - XII grossly intact. Extremity motor and sensation grossly intact. Skin Warm, dry and intact. No apparent lesions. Psychiatric Patient has good affect, is cooperative Objective Labs 01/08/25 04:55 01/08/25 04:55 Labs: Laboratory Results - last 24 hr 01/07/25 01/07/25 01/07/25 09:55 10:10 11:39 WBC 15.0 H RBC 3.26 L Hgb 9.6 L Hct 30.4 L MCV 93 MCH 29.4 MCHC 31.6 RDW Std Deviation 53.7 H Plt Count 264 Neut % (Auto) 83 H Lymph % (Auto) 5 L [place] % (Auto) 8 Eos % (Auto) 0 Baso % (Auto) 1 Neut # (Auto) 12.5 H Lymph # (Auto) 0.8 L [place] # (Auto) 1.2 H Eos # (Auto) 0.0 Baso # (Auto) 0.1 Immature Gran # (Auto) 0.51 H Absolute Nucleated RBC 0.06 H Immature Gran % 3 H Nucleated RBC % 0 Smear Path Review Sent to Pathologist PT INR APTT 28.0 Puncture Site Left Radial ABG pH 7.34 L ABG pCO2 75 H* ABG pO2 107 ABG HCO3 41 H ABG O2 Saturation 99 H ABG Base Excess 13 H VBG pH VBG pCO2 VBG pO2 VBG O2 Sat (Radha) VBG Base Excess Oxygen Liter Flow 5 FiO2 Sodium 132 L Potassium 4.8 Chloride 89 L Carbon Dioxide 37.2 H Anion Gap 6 L BUN 42 H Creatinine 1.3 Estim Creat Clear Calc 36.3 L eGFR 40 L BUN/Creatinine Ratio 32 H Glucose 374 H Calculated Osmolality 290 Lactic Acid Calcium 8.9 Corrected Calcium 9.0 Phosphorus Magnesium Iron TIBC Iron Saturation Unsat Iron Binding Ferritin Total Bilirubin 0.3 AST 14 ALT 22 Alkaline Phosphatase 71 Troponin I 0.040 B-Natriuretic Peptide 738 H* Total Protein 6.9 Albumin 3.9 Globulin 3.0 Albumin/Globulin Ratio 1.3 Procalcitonin 0.45 Ur Collection Type Clean Catch Urine Color Lt-Yellow Urine Clarity Turbid A Urine pH 6.0 Ur Specific [place] 1.015 Urine Protein Trace Urine Glucose (UA) Trace Urine Ketones Negative Urine Blood Negative Urine Nitrite Negative Urine Bilirubin Negative Urine Urobilinogen (Auto) Negative Ur Leukocyte Esterase Positive Urine RBC 21 H Urine WBC 23 H Ur Squamous Epith Cells 3 Urine Bacteria Rare Hyaline Casts < 1 Urine Yeast (Budding) Present A 01/07/25 01/07/25 01/07/25 12:22 12:36 15:06 WBC RBC Hgb Hct MCV MCH MCHC RDW Std Deviation Plt Count Neut % (Auto) Lymph % (Auto) [place] % (Auto) Eos % (Auto) Baso % (Auto) Neut # (Auto) Lymph # (Auto) [place] # (Auto) Eos # (Auto) Baso # (Auto) Immature Gran # (Auto) Absolute Nucleated RBC Immature Gran % Nucleated RBC % Smear Path Review Cancelled PT INR APTT Puncture Site Site Not Noted ABG pH 7.36 ABG pCO2 73 H* ABG pO2 79 L D ABG HCO3 41 H ABG O2 Saturation 96 ABG Base Excess 13 H VBG pH VBG pCO2 VBG pO2 VBG O2 Sat (Radha) VBG Base Excess Oxygen Liter Flow FiO2 40 Sodium Potassium Chloride Carbon Dioxide Anion Gap BUN Creatinine Estim Creat Clear Calc eGFR BUN/Creatinine Ratio Glucose Calculated Osmolality Lactic Acid 1.7 Calcium Corrected Calcium Phosphorus Magnesium 2.5 Iron 16 L TIBC 284 Iron Saturation 5 L Unsat Iron Binding 268 Ferritin Total Bilirubin AST ALT Alkaline Phosphatase Troponin I B-Natriuretic Peptide Total Protein Albumin Globulin Albumin/Globulin Ratio Procalcitonin Ur Collection Type Urine Color Urine Clarity Urine pH Ur Specific [place] Urine Protein Urine Glucose (UA) Urine Ketones Urine Blood Urine Nitrite Urine Bilirubin Urine Urobilinogen (Auto) Ur Leukocyte Esterase Urine RBC Urine WBC Ur Squamous Epith Cells Urine Bacteria Hyaline Casts Urine Yeast (Budding) 01/07/25 01/08/25 15:28 04:55 WBC 13.9 H RBC 3.18 L Hgb 9.1 L Hct 29.6 L MCV 93 MCH 28.6 MCHC 30.7 L RDW Std Deviation 52.1 H Plt Count 236 Neut % (Auto) 82 H Lymph % (Auto) 7 L [place] % (Auto) 7 Eos % (Auto) 0 Baso % (Auto) 1 Neut # (Auto) 11.4 H Lymph # (Auto) 0.9 L [place] # (Auto) 0.9 H Eos # (Auto) 0.0 Baso # (Auto) 0.1 Immature Gran # (Auto) 0.58 H Absolute Nucleated RBC 0.07 H Immature Gran % 4 H Nucleated RBC % 1 H Smear Path Review PT 10.9 INR 1.0 APTT 27.3 Puncture Site ABG pH ABG pCO2 ABG pO2 ABG HCO3 ABG O2 Saturation ABG Base Excess VBG pH 7.48 VBG pCO2 54 VBG pO2 80 H VBG O2 Sat (Radha) 98 H VBG Base Excess 15 H Oxygen Liter Flow FiO2 Sodium 137 Potassium 4.8 Chloride 88 L Carbon Dioxide > 40.0 H Anion Gap 9 BUN 48 H Creatinine 1.3 Estim Creat Clear Calc 36.2 L eGFR 40 L BUN/Creatinine Ratio 37 H Glucose 282 H D Calculated Osmolality 296 H Lactic Acid Calcium 8.6 Corrected Calcium 9.1 Phosphorus 2.2 L Magnesium 2.4 Iron TIBC Iron Saturation Unsat Iron Binding Ferritin 80 Total Bilirubin 0.3 AST 13 ALT 19 Alkaline Phosphatase 57 Troponin I B-Natriuretic Peptide Total Protein 5.9 Albumin 3.4 D Globulin 2.5 Albumin/Globulin Ratio 1.4 Procalcitonin Ur Collection Type Urine Color Urine Clarity Urine pH Ur Specific [place] Urine Protein Urine Glucose (UA) Urine Ketones Urine Blood Urine Nitrite Urine Bilirubin Urine Urobilinogen (Auto) Ur Leukocyte Esterase Urine RBC Urine WBC Ur Squamous Epith Cells Urine Bacteria Hyaline Casts Urine Yeast (Budding) ABG Interpretation ABG results: 01/07/25 01/07/25 01/07/25 10:10 12:36 15:28 ABG pH 7.34 L 7.36 ABG pCO2 75 H* 73 H* ABG pO2 107 79 L D ABG HCO3 41 H 41 H ABG O2 Saturation 99 H 96 ABG Base Excess 13 H 13 H VBG pH 7.48 VBG pCO2 54 VBG pO2 80 H VBG Base Excess 15 H Quality Measures Quality Measures none Advance care planning discussed with:: child Assessment & Plan Assessment Current Active Medications: Generic Name Dose Route Start Last Admin Trade Name Freq PRN Reason Stop Dose Admin Acetaminophen 650 mg 01/07/25 14:15 Acetaminophen 325 Mg Tablet PO 02/06/25 14:14 Q6H PRN Fever >100 or pain 1-3 Hydrocodone Bitart/Acetaminophen 1 tab 01/07/25 14:18 Hydrocodone/Apap 5/325 Tablet PO 01/12/25 14:17 Q4HR PRN PAIN SCALE 4-6 (Moderate Albuterol/Ipratropium 3 ml 01/07/25 15:00 01/08/25 06:58 Albuterol/Ipratropium (Duoneb) Rt Sravani 3 Ml Nebu INH 02/06/25 14:59 3 ml Q4HRRT LISETTE Administration Aspirin 81 mg 01/08/25 09:00 Aspirin Ec 81 Mg Tabec PO 02/07/25 08:59 QDAY LISETTE Atorvastatin Calcium 40 mg 01/07/25 21:00 01/07/25 20:33 Atorvastatin Calcium 20 Mg Tablet PO 02/06/25 20:59 40 mg HS LISETTE Administration Dextrose 25 ml 01/07/25 14:49 Dextrose 50%-Water Inj 50 Ml Syringe IV 02/06/25 14:48 Q15MIN PRN BG 50-70 responsive npo pt Dextrose 50 ml 01/07/25 14:49 Dextrose 50%-Water Inj 50 Ml Syringe IV 02/06/25 14:48 Q15MIN PRN BG <50 OR BG <70 & pt unresponsive Furosemide 40 mg 01/08/25 09:00 Furosemide Inj 10 Mg/Ml 4ml Vial IVP 02/07/25 08:59 BID LISETTE Glucagon 1 mg 01/07/25 14:49 Glucagon Inj 1 Mg Vial IM Q15MIN PRN BG <70, and no IV access Heparin Sodium (Porcine) 5,000 unit 01/07/25 21:00 01/07/25 20:26 Heparin Sod Inj 5000 Unit/Ml Vial SC 01/21/25 20:59 5,000 unit Q12H LISETTE Administration Piperacillin/Tazobactam/Dextrose 3.375 gm in 50 mls @ 12.5 mls/hr 01/07/25 22:00 01/08/25 05:06 Zosyn IV 01/14/25 21:59 12.5 mls/hr Q8HR LISETTE Administration Protocol Insulin Glargine 10 unit 01/07/25 21:00 01/07/25 20:27 Insulin Glargine (Lantus) 5 Unit/0.05 Ml (Per 5 Units) SC 02/06/25 20:59 10 unit HS LISETTE Administration Insulin Human Lispro 0 unit 01/07/25 17:00 01/08/25 07:27 Insulin Lispro (Admelog) 1 Unit/0.01 Ml Unit SC 02/06/25 16:59 3 unit AC LISETTE Administration Protocol Levothyroxine Sodium 100 mcg 01/08/25 06:00 01/08/25 05:06 Levothyroxine Sodium 100 Mcg Tablet PO 02/07/25 05:59 100 mcg ACBR LISETTE Administration Methylprednisolone Sodium Succinate 40 mg 01/08/25 09:00 Methylprednisolone Sod Succ 40 Mg Vial IVP 01/15/25 08:59 BID LISETTE Metoprolol Succinate 25 mg 01/07/25 21:00 01/07/25 20:33 Metoprolol Succinate Xl 25 Mg Tabcr PO 02/06/25 20:59 25 mg HS LISETTE Administration Ondansetron HCl 4 mg 01/07/25 14:18 Ondansetron Inj 2 Mg/Ml Inj 2 Ml IVP 02/06/25 14:17 Q6H PRN NAUSEA OR VOMITING Protocol Pantoprazole Sodium 40 mg 01/07/25 15:00 01/07/25 17:31 Pantoprazole Inj 40 Mg Vial IVP 02/06/25 14:59 40 mg QDAY LISETTE Administration Pramipexole Dihydrochloride 0.25 mg 01/07/25 21:00 01/07/25 20:33 Pramipexole 0.25 Mg Tablet PO 02/06/25 20:59 0.25 mg HS LISETTE Administration Sodium Chloride 3 ml 01/07/25 09:38 01/07/25 10:05 Sodium Chloride Rt Sravani 0.9% 3 Ml Nebu INH 02/06/25 09:37 3 ml PRN PRN Administration SOLN Venlafaxine HCl 150 mg 01/07/25 21:00 01/07/25 20:33 Venlafaxine Xr 37.5 Mg Capcr PO 02/06/25 20:59 150 mg HS LISETTE Administration Plan Adelaida is a 89-year-old female with past medical history of hypothyroidism, recurrent UTIs, chronic respiratory failure, right breast cancer status post lumpectomy, bedbound, chronic back pain, type 2 diabetes, GERD, depression, pulmonary fibrosis ?, HFpEF (G1DD) who is currently admitted for acute on chronic hypoxic hypercarbic respiratory failure that is multifactorial. #Acute on chronic respiratory failure with hypoxia and hypercarbia?improving #Acute on chronic exacerbation of HFpEF with grade 1 diastolic dysfunction # Possible pulmonary fibrosis On admission patient was very poor historian, however her caregiver endorsed that since discharge on 12/30/2024 she has been more confused. on 3 L home oxygen at baseline. Chest x-ray on admission showed enlargement of cardiac control, flash pulmonary edema, pulmonary fibrosis and extensive bilateral consolidation. BNP was elevated at 738 and ABG showed pH 7.34, pCO2 75, [id number] and bicarb 41. Patient was placed on BiPAP and diuresis with Lasix 40 Mg IV twice daily. Transthoracic echocardiogram December 2024: Normal left ventricular size and function. Approximate ejection fraction is 65%. . Trace mitral and trace tricuspid regurgitation No wall motion abnormalities noted. This a.m. patient was on BiPAP overnight and repeat VBG showed pH 7.43, PCO2 69.Will wean patient from BiPAP to nasal cannula. Over the past 24 hours patient had a negative fluid balance of 300 cc currently on IV diuresis with Lasix 40 Mg IV twice daily. Plan: ? 2G sodium restricted diet ? Strict I's and O's ? Fluid Restriction 1500ml ? Daily weights ? Continue diuresis with Lasix 40 Mg IV twice daily ? Continue metoprolol succinate 25 Mg p.o. at bedtime ? Increase DuoNebs to Q6 hourly while awake ? Discontinue Solu-Medrol 40 mg IV twice daily. Started on prednisone 40 Mg p.o. daily from tomorrow ? Continue BiPAP at bedtime ? Continue chest physiotherapy Q4 hourly ? Will maintain magnesium greater than 2 and potassium greater than 4 to prevent any arrhythmias. ? Cardiology, Dr. Mccann consulted. Appreciate recommendations she is on 3L #Community Acquired Pneumonia #Possible aspiration pneumonia Chest x-ray on admission showed enlargement of cardiac control, flash pulmonary edema, pulmonary fibrosis and extensive bilateral consolidation. Patient's was somnolent prior to admission and risk of aspiration is high. Plan: ? Pending sputum culture ? Continue Zosyn 3.375 mg IV every 8 hours (01/07- # Chronic respiratory acidosis with compensatory metabolic alkalosis?improving Patient's pH on ABG shows pH is 7.36, pCO2 73, bicarb of 41 repeat VBG this a.m. showed pH 7.43 and PCO2 improved to 69 from 72. Bicarb this a.m. was 46, likely contraction alkalosis from diuresis. Patient's baseline pCO2 in the 50s?60s Plan: ?Acetazolamide 500 Mg IV x 1 for contraction alkalosis #History of coronary artery disease Patient has had LAD severely calcified seen in previous imaging No stents or CABG on previous imaging Plan: ? Continue aspirin 81 Mg p.o. daily #Chronic UTI Patient has history of Pseudomonas UTIs in the past. Currently she states that she is unable to tell if she has UTI symptoms. Urinalysis on admission was treated with, leukocyte esterase positive and 23 WBCs. Plan: ? Continue Zosyn 3.375 Mg IV every 8 hourly started on [01/07? #Primary hypertension #Hyperlipidemia BP 144/81 today. Last lipid panel on file from August 2020, LDL 81. Plan: ? Lipid panel ordered for a.m. ? Continue home medication metoprolol succinate 25 Mg p.o. at bedtime ? Continue home medication atorvastatin 40 Mg p.o. at bedtime #Insulin-dependent type 2 diabetes mellitus A1c of 7 in 2024 May Patient apparently takes Lantus at home, will resume upon med rec Plan: ? Sliding scale insulin ? Hypoglycemic protocol in place ? Blood sugar checks with meals #Normocytic anemia DDx: GI Bleed, Cancer, anemia of chronic disease, medication induced, nutritional deficiency, lead poisoning No FOBT seen on file. Also unknown history of NSAID use. Patient cannot recall if she ever had a colonoscopy Iron panel showed iron 16, TIBC 284, saturation 5%. Blood smear pending. This does indicate iron deficiency, however etiology may be multifactorial as well. Plan: ? B12, folate, reticulocyte count, LDH ordered ? Awaiting blood smear ? Transfusion protocol hemoglobin below 7 ? Avoiding any NSAIDs ? Continue Protonix 40 mg daily #History of depression #History of restless leg syndrome Plan: ? Continue home medication venlafaxine 150 mg at night ? Continue home on Pramipexole 0.25 mg at bedtime Health maintenance: Disposition: IV antibiotic. IV diuresis. Pending cardiology consult Diet: Cardiac, low consistent carb, 1500 cc fluid restriction Lines: pIVs GI Prophylaxis: Pantoprazole Thrombo Prophylaxis: Heparin Code status: DNR Plan of care discussed with Attending Dr. Live Gomez MD PGY 1 Disclaimer: This note was dictated by speech recognition. Minor errors in substation operator automatic may be present due to voice recognition software.
[2025-01-08] MEDS: INSULIN LISPRO (AdmeLOG) 1 UNIT/0.01 ML UNIT 5 UNIT SC ×3 (08:07→16:43)
[2025-01-08 08:18] LABS: Base Excess 18 (-3-3); HCO3 46 mEq/L (20-26); Inspired Oxygen, FIO2 45 %; PCO2 72 mmHg (32.0-48.0); PO2 83 mmHg (83-108); pH, Arterial 7.41 (7.35-7.45)
[2025-01-08 08:20] LABS: Allen Test Not Performed; O2 Saturation 98 % (91-98); Puncture Site Left Radial
[2025-01-08] MEDS: SOD PHOS ADDITIVE 15 MMOL in SODIUM CHLORIDE 0.9% 250 ML 250 ML 62.5 MMOL IV (08:22)
[2025-01-08] MEDS: ASPIRIN EC 81 MG TABEC PO (08:23)
[2025-01-08] MEDS: HEPARIN SOD INJ 5000 UNIT/ML VIAL SC ×2 (08:24→21:35)
[2025-01-08] MEDS: PANTOPRAZOLE INJ 40 MG VIAL IVP (08:24)
[2025-01-08] MEDS: FUROSEMIDE INJ 10 MG/ML 4ML VIAL 40 MG IVP ×2 (08:24→21:29)
[2025-01-08 10:55] LABS: Base Excess, Venous 19 (-3-3); O2 Saturation, Venous 78 % (96-97); PCO2, Venous 69 mmHg (36-56); PO2, Venous 41 mmHg (15-58); pH, Venous 7.43 (7.33-7.66)
[2025-01-08] MEDS: ACETAzolaMIDE SOD 500 MG in SODIUM CHLORIDE 0.9% (Popper) 50 ML 100 MG IV (11:18)
[2025-01-08 15:40] LABS: Cocci Serology, IgM Negative (Negative)
--- NOTE | 2025-01-08 20:14 | PC.NURSE ---
RT Coon made aware of sputum induction for sputum culture collection.
[2025-01-08] MEDS: VENLAFAXINE XR 37.5 MG CAPCR 150 MG PO (21:28)
[2025-01-08] MEDS: ATORVASTATIN CALCIUM 20 MG TABLET 40 MG PO (21:28)
[2025-01-08] MEDS: METOPROLOL SUCCINATE XL 25 MG TABCR PO (21:29)
[2025-01-08] MEDS: PRAMIPEXOLE 0.25 MG TABLET PO (21:29)
[2025-01-08] MEDS: INSULIN GLARGINE (Lantus) 5 UNIT/0.05 ML (PER 5 UNITS) 15 UNIT SC (21:29)
[2025-01-09] VITALS (18 sets, daily range): BP systolic 112–138; BP diastolic 57–75; PULSE 75–99; RESP 12–29; TEMP 36.1–36.9; O2SAT 90–100
[2025-01-09] MEDS: ALBUTEROL/IPRATROPIUM (Duoneb) RT SOL 3 ML NEBU INH ×4 (01:39→21:59)
[2025-01-09] MEDS: LEVOTHYROXINE SODIUM 100 MCG TABLET PO (05:37)
[2025-01-09] MEDS: PIPER/TAZO 3.375 GM PREMIX 3.375 GM/50 ML BAG IV ×3 (05:37→21:31)
[2025-01-09 06:03] LABS: Basophils # (Auto) 0.1 Thou/mm3 (0.0-0.2); Basophils % (Auto) 1 % (0-2.5); Eosinophils # (Auto) 0.2 Thou/mm3 (0.0-0.5); Eosinophils % (Auto) 1 % (0-10); Hematocrit 30.6 % (36.0-46.0); Hemoglobin 9.3 g/dL (12.0-16.0); Immature Granulocytes % (Auto) 4 % (0-0); Immature Granulocytes Auto 0.59 Thou/mm3 (0.00-0.00); Lymphocytes # (Auto) 1.4 Thou/mm3 (1.0-4.8); Lymphocytes % (Auto) 11 % (10-50); Mean Corpuscular HGB Conc 30.4 g/dl (31.0-37.0); Mean Corpuscular Hemoglobin 29.4 pg (25.0-35.0); Mean Corpuscular Volume 97 fL (80-100); Monocytes # (Auto) 1.2 Thou/mm3 (0.0-0.8); Monocytes % (Auto) 9 % (0-12); Neutrophils # (Auto) 9.9 Thou/mm3 (1.8-7.7); Neutrophils % (Auto) 74 % (37-80); Nucleated Red Blood Cell % 1 /100 WBC (0); Platelet Count 338 Thou/mm3 (140-440); RDW Standard Deviation 56.1 fL (36.4-46.3); Red Blood Count 3.16 Miln/mm3 (4.00-5.20); Reticulocyte % (Auto) 2.6 % (0.5-1.5); Reticulocyte Absolute Auto 81.5 Biln/L (25.0-75.0); Reticulocyte Hgb Content 23.6 pg (28.0-35.0); White Blood Count 13.4 Thou/mm3 (3.6-11.0)
[2025-01-09 06:16] LABS: Alanine Aminotransferase 23 U/L (10-49); Albumin, Serum 3.7 gm/dL (3.4-4.8); Albumin/Globulin Ratio 1.3 (1.2-2.2); Alkaline Phosphatase 53 U/L (46-116); Anion Gap 9 (7-16); Aspartate Amino Transferase 24 U/L (0-34); BUN/Creatinine Ratio 31 Ratio (12-20); Bilirubin,Total 0.3 mg/dL (0.3-1.2); Blood Urea Nitrogen 44 mg/dL (9-23); Calcium (Corrected) 9.2 mg/dL (8.5-10.1); Carbon Dioxide > 40.0 mMol/L (20.0-31.0); Cardiac Risk Estimate 4.8 RATIO (3.7-5.6); Chloride 90 mMol/L (98-107); Cholesterol 129 mg/dL (132-200); Creatinine (Component) 1.4 mg/dL (0.6-1.3); Estimated Creatinine Clearance 33.3 mL/min (>60); Globulin 2.8 gm/dL (2.3-3.5); Glucose 155 mg/dL (74-106); HDL Cholesterol 27 mg/dL (40-60); LDH (Lactate Dehydrogenase) 264 U/L (120-246); LDL Cholesterol,Calculated 64 mg/dL (0-130); Magnesium 2.4 mg/dL (1.6-2.6); Osmolality,Calculated 291 (275-295); Sodium 139 mMol/L (136-145); Total Protein 6.5 gm/dL (5.7-8.2); Triglycerides 192 mg/dL (30-150); eGFR 36 See Note
[2025-01-09 08:15] LABS: Base Excess, Venous 16 (-3-3); O2 Saturation, Venous 72 % (96-97); PCO2, Venous 69 mmHg (36-56); PO2, Venous 37 mmHg (15-58)
[2025-01-09] MEDS: PANTOPRAZOLE 40 MG TABLET PO (08:46)
[2025-01-09] MEDS: Magnesium Sulfate 2 GM Ivpb 2 GM/50 ML BAG IV (08:46)
[2025-01-09] MEDS: FUROSEMIDE INJ 10 MG/ML 4ML VIAL 40 MG IVP (08:47)
[2025-01-09] MEDS: predniSONE 20 MG TABLET 40 MG PO (08:47)
[2025-01-09] MEDS: ASPIRIN EC 81 MG TABEC PO (08:47)
[2025-01-09] MEDS: HEPARIN SOD INJ 5000 UNIT/ML VIAL SC ×2 (08:48→20:17)
[2025-01-09 09:13] LABS: Phosphorous 3.1 mg/dL (2.4-5.1)
--- NOTE | 2025-01-09 10:58 | PD.RESPRO ---
Documentation for date of: 01/09/25 Subjective Subjective Interval history: Patient was seen and examined at bedside this AM. No acute exents overnight. Patient tolerating diet, adequate urine output and mentation is at baseline. Patient says she feels well today. Overnight patient was on BiPAP saturating at 96%, repeat VBG this a.m. showed pH 7.4 and PCO2 69. Saturating 91% on 3L nasal cannula. Over the past 24 hours patient had a negative fluid balance of 1487 cc currently on IV diuresis with Lasix 40 Mg IV twice daily. BUN increased to 44 and CR 1.4 from 1.3, bicarb greater than 14, cocci serology IgM negative and blood culture no bacterial growth preliminary. Will give a diuretic holiday due to STEVE, increase DuoNebs to every 8 hourly. Monitor patient for 1 more day due to STEVE, anticipate discharge tomorrow Exam Vital Signs Temp Pulse Resp BP Pulse Ox O2 Del Method O2 Flow Rate 98.4 F 75 21 H 138/75 H 91 L BiPAP 3 01/09/25 07:52 01/09/25 08:47 01/09/25 07:52 01/09/25 08:47 01/09/25 07:52 01/09/25 07:52 01/09/25 07:52 FiO2 40 01/09/25 07:52 Narrative Exam Constitutional Alert, oriented x 3 and comfortable. Elderly female on 3L O2 via nasal cannula. HEENT Vision grossly intact. Patent nares. Trachea midline Respiratory Chest normal on inspection and improved air entry with inspiratory crackles mid to lower zones bilaterally Cardiovascular S1 and S2 audible, RRR. No murmurs carotid bruit. No gross JVD. Abdominal Soft, obese and non tender to palpation in all quadrants. BS + Genitourinary No bladder tenderness, no flank pain. Normal to palpation Musculoskeletal Extremities tone within normal limits. Trace lower extremity edema with 1+ edema at hips bilaterally. Negative for sacral edema. Neurological CN II - XII grossly intact. Extremity motor and sensation grossly intact. Skin Warm, dry and intact. No apparent lesions. Psychiatric Patient has good affect, is cooperative Objective Labs 01/09/25 05:14 01/09/25 05:14 Labs: Laboratory Results - last 24 hr 01/08/25 01/08/25 01/09/25 04:55 10:25 05:14 WBC 13.4 H RBC 3.16 L Hgb 9.3 L Hct 30.6 L MCV 97 MCH 29.4 MCHC 30.4 L RDW Std Deviation 56.1 H Plt Count 338 D Neut % (Auto) 74 Lymph % (Auto) 11 [place] % (Auto) 9 Eos % (Auto) 1 Baso % (Auto) 1 Neut # (Auto) 9.9 H Lymph # (Auto) 1.4 [place] # (Auto) 1.2 H Eos # (Auto) 0.2 Baso # (Auto) 0.1 Immature Gran # (Auto) 0.59 H Absolute Nucleated RBC 0.10 H Immature Gran % 4 H Nucleated RBC % 1 H Retic Count (auto) 2.6 H Absolute Retic 81.5 H Immature Retic Fraction 30.0 H Retic Hgb Content CHr 23.6 L VBG pH 7.43 VBG pCO2 69 H D VBG pO2 41 D VBG O2 Sat (Radha) 78 L VBG Base Excess 19 H Sodium 139 Potassium 4.0 D Chloride 90 L Carbon Dioxide > 40.0 H Anion Gap 9 BUN 44 H Creatinine 1.4 H Estim Creat Clear Calc 33.3 L eGFR 36 L BUN/Creatinine Ratio 31 H Glucose 155 H D Calculated Osmolality 291 Calcium 9.0 Corrected Calcium 9.2 Phosphorus Magnesium 2.4 Total Bilirubin 0.3 AST 24 ALT 23 Alkaline Phosphatase 53 Lactate Dehydrogenase 264 H Total Protein 6.5 Albumin 3.7 Globulin 2.8 Albumin/Globulin Ratio 1.3 Triglycerides 192 H Cholesterol 129 L LDL Cholesterol, Calc 64 HDL Cholesterol 27 L Cholesterol/HDL Ratio 4.8 Coccidioides IgM Ab Negative 01/09/25 07:54 WBC RBC Hgb Hct MCV MCH MCHC RDW Std Deviation Plt Count Neut % (Auto) Lymph % (Auto) [place] % (Auto) Eos % (Auto) Baso % (Auto) Neut # (Auto) Lymph # (Auto) [place] # (Auto) Eos # (Auto) Baso # (Auto) Immature Gran # (Auto) Absolute Nucleated RBC Immature Gran % Nucleated RBC % Retic Count (auto) Absolute Retic Immature Retic Fraction Retic Hgb Content CHr VBG pH 7.40 VBG pCO2 69 H VBG pO2 37 VBG O2 Sat (Radha) 72 L VBG Base Excess 16 H Sodium Potassium Chloride Carbon Dioxide Anion Gap BUN Creatinine Estim Creat Clear Calc eGFR BUN/Creatinine Ratio Glucose Calculated Osmolality Calcium Corrected Calcium Phosphorus 3.1 Magnesium Total Bilirubin AST ALT Alkaline Phosphatase Lactate Dehydrogenase Total Protein Albumin Globulin Albumin/Globulin Ratio Triglycerides Cholesterol LDL Cholesterol, Calc HDL Cholesterol Cholesterol/HDL Ratio Coccidioides IgM Ab ABG Interpretation ABG results: 01/07/25 01/07/25 01/07/25 10:10 12:36 15:28 ABG pH 7.34 L 7.36 ABG pCO2 75 H* 73 H* ABG pO2 107 79 L D ABG HCO3 41 H 41 H ABG O2 Saturation 99 H 96 ABG Base Excess 13 H 13 H VBG pH 7.48 VBG pCO2 54 VBG pO2 80 H VBG Base Excess 15 H 01/08/25 01/08/25 01/09/25 08:00 10:25 07:54 ABG pH 7.41 ABG pCO2 72 H* ABG pO2 83 ABG HCO3 46 H ABG O2 Saturation 98 ABG Base Excess 18 H VBG pH 7.43 7.40 VBG pCO2 69 H D 69 H VBG pO2 41 D 37 VBG Base Excess 19 H 16 H Quality Measures Quality Measures VTE prophylaxis Advance care planning discussed with:: patient Assessment & Plan Assessment Current Active Medications: Generic Name Dose Route Start Last Admin Trade Name Freq PRN Reason Stop Dose Admin Acetaminophen 650 mg 01/07/25 14:15 Acetaminophen 325 Mg Tablet PO 02/06/25 14:14 Q6H PRN Fever >100 or pain 1-3 Hydrocodone Bitart/Acetaminophen 1 tab 01/07/25 14:18 Hydrocodone/Apap 5/325 Tablet PO 01/12/25 14:17 Q4HR PRN PAIN SCALE 4-6 (Moderate Albuterol/Ipratropium 3 ml 01/08/25 19:00 01/09/25 06:50 Albuterol/Ipratropium (Duoneb) Rt Sravani 3 Ml Nebu INH 02/07/25 18:59 3 ml Q6HRRT LISETTE Administration Aspirin 81 mg 01/08/25 09:00 01/09/25 08:47 Aspirin Ec 81 Mg Tabec PO 02/07/25 08:59 81 mg QDAY LISETTE Administration Atorvastatin Calcium 40 mg 01/07/25 21:00 01/08/25 21:28 Atorvastatin Calcium 20 Mg Tablet PO 02/06/25 20:59 40 mg HS LISETTE Administration Dextrose 25 ml 01/07/25 14:49 Dextrose 50%-Water Inj 50 Ml Syringe IV 02/06/25 14:48 Q15MIN PRN BG 50-70 responsive npo pt Dextrose 50 ml 01/07/25 14:49 Dextrose 50%-Water Inj 50 Ml Syringe IV 02/06/25 14:48 Q15MIN PRN BG <50 OR BG <70 & pt unresponsive Furosemide 40 mg 01/09/25 09:00 01/09/25 08:47 Furosemide Inj 10 Mg/Ml 4ml Vial IVP 02/08/25 08:59 40 mg QDAY LISETTE Administration Glucagon 1 mg 01/07/25 14:49 Glucagon Inj 1 Mg Vial IM Q15MIN PRN BG <70, and no IV access Heparin Sodium (Porcine) 5,000 unit 01/07/25 21:00 01/09/25 08:48 Heparin Sod Inj 5000 Unit/Ml Vial SC 01/21/25 20:59 5,000 unit Q12H LISETTE Administration Piperacillin/Tazobactam/Dextrose 3.375 gm in 50 mls @ 12.5 mls/hr 01/07/25 22:00 01/09/25 05:37 Zosyn IV 01/14/25 21:59 12.5 mls/hr Q8HR LISETTE Administration Protocol Insulin Glargine 15 unit 01/08/25 21:00 01/08/25 21:29 Insulin Glargine (Lantus) 5 Unit/0.05 Ml (Per 5 Units) SC 02/07/25 20:59 15 unit HS LISETTE Administration Insulin Human Lispro 0 unit 01/08/25 11:30 01/09/25 07:30 Insulin Lispro (Admelog) 1 Unit/0.01 Ml Unit SC 02/07/25 11:29 Not Given ACHS [facility] Protocol Insulin Human Lispro 5 unit 01/08/25 08:00 01/09/25 07:59 Insulin Lispro (Admelog) 1 Unit/0.01 Ml Unit SC 02/07/25 07:59 Not Given TIDWM [facility] Levothyroxine Sodium 100 mcg 01/08/25 06:00 01/09/25 05:37 Levothyroxine Sodium 100 Mcg Tablet PO 02/07/25 05:59 100 mcg ACBR LISETTE Administration Metoprolol Succinate 25 mg 01/07/25 21:00 01/08/25 21:29 Metoprolol Succinate Xl 25 Mg Tabcr PO 02/06/25 20:59 25 mg HS LISETTE Administration Ondansetron HCl 4 mg 01/07/25 14:18 Ondansetron Inj 2 Mg/Ml Inj 2 Ml IVP 02/06/25 14:17 Q6H PRN NAUSEA OR VOMITING Protocol Pantoprazole Sodium 40 mg 01/09/25 09:00 01/09/25 08:46 Pantoprazole 40 Mg Tablet PO 02/08/25 08:59 40 mg QDAY LISETTE Administration Protocol Pramipexole Dihydrochloride 0.25 mg 01/07/25 21:00 01/08/25 21:29 Pramipexole 0.25 Mg Tablet PO 02/06/25 20:59 0.25 mg HS LISETTE Administration Prednisone 40 mg 01/09/25 09:00 01/09/25 08:47 Prednisone 20 Mg Tablet PO 02/08/25 08:59 40 mg QDAY LISETTE Administration Sodium Chloride 3 ml 01/07/25 09:38 01/07/25 10:05 Sodium Chloride Rt Sravani 0.9% 3 Ml Nebu INH 02/06/25 09:37 3 ml PRN PRN Administration SOLN Venlafaxine HCl 150 mg 01/07/25 21:00 01/08/25 21:28 Venlafaxine Xr 37.5 Mg Capcr PO 02/06/25 20:59 150 mg HS LISETTE Administration Plan Adelaida is a 89-year-old female with past medical history of hypothyroidism, recurrent UTIs, chronic respiratory failure, right breast cancer status post lumpectomy, bedbound, chronic back pain, type 2 diabetes, GERD, depression, pulmonary fibrosis ?, HFpEF (G1DD) who is currently admitted for acute on chronic hypoxic hypercarbic respiratory failure that is multifactorial. #Acute on chronic respiratory failure with hypoxia and hypercarbia?improving #Acute on chronic exacerbation of HFpEF with grade 1 diastolic dysfunction?resolving # Possible pulmonary fibrosis On admission patient was very poor historian, however her caregiver endorsed that since discharge on 12/30/2024 she has been more confused. on 3 L home oxygen at baseline. Chest x-ray on admission showed enlargement of cardiac control, flash pulmonary edema, pulmonary fibrosis and extensive bilateral consolidation. BNP was elevated at 738 and ABG showed pH 7.34, pCO2 75, [id number] and bicarb 41. Patient was placed on BiPAP and diuresis with Lasix 40 Mg IV twice daily. Transthoracic echocardiogram December 2024: Normal left ventricular size and function. Approximate ejection fraction is 65%. . Trace mitral and trace tricuspid regurgitation No wall motion abnormalities noted. Overnight patient was on BiPAP saturating at 96%, repeat VBG this a.m. showed pH 7.4 and PCO2 69. Saturating 91% on 3L nasal cannula. Over the past 24 hours patient had a negative fluid balance of 1487 cc currently on IV diuresis with Lasix 40 Mg IV twice daily. BUN increased to 44 and CR 1.4 from 1.3, bicarb greater than 14, cocci serology IgM negative and blood culture no bacterial growth preliminary. Will give a diuretic holiday due to STEVE, increase DuoNebs to every 8 hourly. Monitor patient for 1 more day due to STEVE, anticipate discharge tomorrow Plan: ? 2G sodium restricted diet ? Strict I's and O's ? Fluid Restriction 1500ml ? Daily weights ? Hold diuresis with Lasix 40 Mg IV twice daily ? Continue metoprolol succinate 25 Mg p.o. at bedtime ? Increase DuoNebs to Q8 hourly while awake ? Started on prednisone 40 Mg p.o. daily ? Continue BiPAP at bedtime ? Continue chest physiotherapy Q8 hourly ? Will maintain magnesium greater than 2 and potassium greater than 4 to prevent any arrhythmias. ? Cardiology, Dr. Mccann consulted. Appreciate recommendations she is on 3L #Community Acquired Pneumonia #Possible aspiration pneumonia Chest x-ray on admission showed enlargement of cardiac control, flash pulmonary edema, pulmonary fibrosis and extensive bilateral consolidation. Patient's was somnolent prior to admission and risk of aspiration is high. Plan: ? Pending sputum culture ? Continue Zosyn 3.375 mg IV every 8 hours (01/07- # Chronic respiratory acidosis with compensatory metabolic alkalosis?improving Repeat VBG this a.m. showed pH 7.4 and PCO2 69 Bicarb this a.m. was >40, likely contraction alkalosis from diuresis. Patient's baseline pCO2 in the 50s?60s Received acetazolamide 500 Mg IV x 1 on 01/08/2025 #History of coronary artery disease Patient has had LAD severely calcified seen in previous imaging No stents or CABG on previous imaging Plan: ? Continue aspirin 81 Mg p.o. daily #Chronic UTI Patient has history of Pseudomonas UTIs in the past. Currently she states that she is unable to tell if she has UTI symptoms. Urinalysis on admission was treated with, leukocyte esterase positive and 23 WBCs. Plan: ? Continue Zosyn 3.375 Mg IV every 8 hourly started on [01/07? #Primary hypertension #Hyperlipidemia BP 144/81 today. Last lipid panel on file from August 2020, LDL 81. Plan: ? Lipid panel ordered for a.m. ? Continue home medication metoprolol succinate 25 Mg p.o. at bedtime ? Continue home medication atorvastatin 40 Mg p.o. at bedtime #Insulin-dependent type 2 diabetes mellitus A1c of 7 in 2024 May Patient apparently takes Lantus at home, will resume upon med rec Plan: ? Sliding scale insulin ? Hypoglycemic protocol in place ? Blood sugar checks with meals #Normocytic anemia DDx: GI Bleed, Cancer, anemia of chronic disease, medication induced, nutritional deficiency, lead poisoning No FOBT seen on file. Also unknown history of NSAID use. Patient cannot recall if she ever had a colonoscopy Iron panel showed iron 16, TIBC 284, saturation 5%. LDH 264 and reticulocyte count 2.6%. Blood smear, B12 and folate pending. This does indicate iron deficiency, however etiology may be multifactorial as well. Plan: ? Awaiting blood smear, B12 and folate ? Transfusion protocol hemoglobin below 7 ? Avoiding any NSAIDs ? Continue Protonix 40 mg daily #History of depression #History of restless leg syndrome Plan: ? Continue home medication venlafaxine 150 mg at night ? Continue home on Pramipexole 0.25 mg at bedtime Health maintenance: Disposition: IV antibiotic. Repeat renal panel in AM. Anticipate discharge within next 24 hours Diet: Cardiac, low consistent carb, 1500 cc fluid restriction Lines: pIVs GI Prophylaxis: Pantoprazole Thrombo Prophylaxis: Heparin Code status: DNR Plan of care discussed with Attending Dr. Live Gomez MD PGY 1 Disclaimer: This note was dictated by speech recognition. Minor errors in leather grader may be present due to voice recognition software. Attending Provider Attestation/Addendum I have discussed and was present for the essential components of the history, physical examination, diagnosis, and treatment plan with the resident. I agree with the patient's care as documented by the resident and amended herein by me. Jason Mancini DO. Patient seen and evaluated this AM. Significant improvement with the patient this morning, no acute events overnight, patient awake alert. On 3 L NC, SpO2 93% this morning. I/O462/[id number]. WBC 13.4, hemoglobin stable at 9, BUN 44 and creatinine has up trended to 1.4 today. Blood glucose also elevated, insulin regimen will be titrated up accordingly. Will continue Zosyn for now, likely titrate down tomorrow, continue diuresis, steroids and VBG has been ordered to assess the patient's pH and CO2 level. Will continue to monitor closely while she is here. Of note, cocci testing is negative. Although this document has been carefully reviewed, there may still be some phonetic and other typographical errors. These errors are purely grammatical due to imperfections in the software program and should not be construed in any way to compromise the substance of the patient's medical care during this visit.
[2025-01-09] MEDS: INSULIN LISPRO (AdmeLOG) 1 UNIT/0.01 ML UNIT SC ×3 (11:36→20:18)
[2025-01-09] MEDS: INSULIN LISPRO (AdmeLOG) 1 UNIT/0.01 ML UNIT 5 UNIT SC ×2 (11:37→16:40)
--- NOTE | 2025-01-09 12:02 | PD.IMCONS ---
HPI Data of Consult Requesting Physician: Paul Mancini DO Primary Care Provider: Other Consult Narrative History of present illness: This is a 89-year-old female with past medical history of hypothyroidism, recurrent UTIs, chronic respiratory failure, right breast cancer status post lumpectomy, bedbound, chronic back pain, type 2 diabetes, GERD, depression, pulmonary fibrosis ?, HFpEF pt seen in the ER wi sob recent hospitalization 1 week ago no chest pain or palpitations noted EKG SR with HR 85 echo - normal EF no significant valve lesions Chest x-ray shows multiple infiltrates cc:: cc: Paul Mancini DO Meds Home Medications and Allergies Home Medications ?Medication ?Instructions ?Recorded ?Confirmed ?Type levothyroxine 75 mcg tablet 100 mcg PO QAM 04/18/20 01/08/25 History methenamine hippurate 1 gram tablet 1 g PO BID 04/18/20 01/08/25 History omeprazole 40 mg capsule,delayed 40 mg PO QDAY 06/04/21 01/08/25 History release rosuvastatin 5 mg tablet 10 mg PO HS 06/04/21 01/08/25 History venlafaxine 150 mg 150 mg PO HS 06/04/21 01/08/25 History capsule,extended release 24 hr furosemide 40 mg tablet 40 mg PO QAM 08/27/22 01/08/25 History ascorbic acid (vitamin C) 500 mg 500 mg PO BID 03/19/24 01/08/25 History tablet (Vitamin C) aspirin 81 mg tablet 81 mg PO QDAY 03/19/24 01/08/25 History diclofenac sodium 1 % topical gel 2 g topical QID 03/19/24 01/08/25 History magnesium 500 mg tablet 1,000 mg PO QDAY 03/19/24 01/08/25 History calcium 600 mg (as 0.5 tab PO BID 12/27/24 01/08/25 History carbonate)-vitamin D3 5 mcg (200 unit) tablet (Calcium 600 + D(3)) cranberry 500 mg capsule 1,000 mg PO QDAY 12/27/24 01/08/25 History hydrocodone 10 mg-acetaminophen 1 tab PO Q12H PRN pain 12/27/24 01/08/25 History 325 mg tablet lactobacillus comb no.10 20 20,000 mmu cells PO QDAY 12/27/24 01/08/25 History billion cell capsule (Probiotic) pramipexole 0.5 mg tablet 0.5 mg PO HS 12/27/24 01/08/25 History glimepiride 2 mg tablet 2 mg PO BID 01/08/25 01/08/25 History insulin glargine 100 unit/mL 10 unit subcut QAM 01/08/25 01/08/25 History subcutaneous solution (Lantus U-100 Insulin) metformin 500 mg tablet 500 mg PO BID 01/08/25 01/08/25 History Allergies Allergy/AdvReac Type Severity Reaction Status Date / Time cefuroxime Allergy Intermediate Swelling Verified 12/27/24 11:13 of Lip/Tongue/Throat zinc Allergy Intermediate Rash Verified 12/27/24 11:13 iodine Allergy Unknown Verified 12/27/24 11:13 shellfish derived Allergy Unknown Verified 12/27/24 11:13 Sulfa (Sulfonamide Allergy Unknown Verified 12/27/24 11:13 Antibiotics) Exam Vital Signs Temp Pulse Resp BP Pulse Ox O2 Del Method O2 Flow Rate 97.9 F 77 24 H 112/69 90 L BiPAP 3 01/09/25 11:44 01/09/25 11:44 01/09/25 11:44 01/09/25 11:44 01/09/25 11:44 01/09/25 11:44 01/09/25 11:44 FiO2 40 01/09/25 11:44 Routine HEENT Exam Head: Present normocephalic and atraumatic Eye: Present EOMI and PERRL ENT: Present mucous membranes moist Routine Neck Exam Neck: Present supple and trachea midline Routine Respiratory Exam Respiratory: Present chest non-tender, lungs clear, normal breath sounds and no resp distress Routine Cardiovascular Exam Cardiovascular: Present RRR Routine Abdominal Exam Abdominal: Present soft and normoactive bowel sounds Routine Extremities Exam Extremities: Present full ROM Routine Skin Exam Skin: Present intact, dry and warm Routine Neurological Exam Neurological: Present alert, oriented X3 and CN II-XII intact Routine Psychiatric Exam Psychiatric: Present normal affect and normal thought process Results Labs 01/09/25 05:14 01/09/25 05:14 Labs: Short CBC 01/09/25 Range/Units 05:14 WBC 13.4 H (3.6-11.0) Thou/mm3 Hgb 9.3 L (12.0-16.0) g/dL Hct 30.6 L (36.0-46.0) % Plt Count 338 D (140-440) Thou/mm3 BMP 01/09/25 05:14 Sodium 139 Potassium 4.0 D Chloride 90 L Carbon Dioxide > 40.0 H BUN 44 H Creatinine 1.4 H Glucose 155 H D Calcium 9.0 Liver Function 01/09/25 Range/Units 05:14 Total Bilirubin 0.3 (0.3-1.2) mg/dL AST 24 (0-34) U/L ALT 23 (10-49) U/L Alkaline Phosphatase 53 (46-116) U/L Albumin 3.7 (3.4-4.8) gm/dL ABG Interpretation ABG results: 01/07/25 01/07/25 01/07/25 10:10 12:36 15:28 ABG pH 7.34 L 7.36 ABG pCO2 75 H* 73 H* ABG pO2 107 79 L D ABG HCO3 41 H 41 H ABG O2 Saturation 99 H 96 ABG Base Excess 13 H 13 H VBG pH 7.48 VBG pCO2 54 VBG pO2 80 H VBG Base Excess 15 H 01/08/25 01/08/25 01/09/25 08:00 10:25 07:54 ABG pH 7.41 ABG pCO2 72 H* ABG pO2 83 ABG HCO3 46 H ABG O2 Saturation 98 ABG Base Excess 18 H VBG pH 7.43 7.40 VBG pCO2 69 H D 69 H VBG pO2 41 D 37 VBG Base Excess 19 H 16 H Assessment and Plan Assessment and plan (1) Acute exacerbation of chronic obstructive airways disease: Status: Acute (2) Type 2 diabetes mellitus: Status: Acute (3) Community acquired pneumonia: Status: Acute (4) Acute dyspnea: Status: Acute (5) Altered mental status: Status: Acute Additional Assessment & Plan Additional Plan: Patient is prior echo shows normal EF No significant valve lesions. Continue treatment for pulmonary infiltrate pneumonia Patient's white count is elevated at 13.4 Patient hemodynamically stable
[2025-01-09] MEDS: PRAMIPEXOLE 0.25 MG TABLET PO (20:17)
[2025-01-09] MEDS: VENLAFAXINE XR 37.5 MG CAPCR 150 MG PO (20:17)
[2025-01-09] MEDS: ATORVASTATIN CALCIUM 20 MG TABLET 40 MG PO (20:17)
[2025-01-09] MEDS: METOPROLOL SUCCINATE XL 25 MG TABCR PO (20:17)
[2025-01-09] MEDS: INSULIN GLARGINE (Lantus) 5 UNIT/0.05 ML (PER 5 UNITS) 15 UNIT SC (20:18)
[2025-01-10] VITALS (8 sets, daily range): BP systolic 119–132; BP diastolic 56–72; PULSE 75–96; RESP 19–25; TEMP 36.1–37.4; O2SAT 92–100; BMI 33.5
[2025-01-10] MEDS: PIPER/TAZO 3.375 GM PREMIX 3.375 GM/50 ML BAG IV ×2 (05:06→14:17)
[2025-01-10] MEDS: LEVOTHYROXINE SODIUM 100 MCG TABLET PO (05:07)
[2025-01-10] MEDS: ALBUTEROL/IPRATROPIUM (Duoneb) RT SOL 3 ML NEBU INH ×2 (06:35→14:37)
[2025-01-10 06:40] LABS: Basophils % (Auto) 0 % (0-2.5); Eosinophils # (Auto) 0.3 Thou/mm3 (0.0-0.5); Eosinophils % (Auto) 3 % (0-10); Hematocrit 33.1 % (36.0-46.0); Hemoglobin 9.9 g/dL (12.0-16.0); Immature Granulocytes % (Auto) 6 % (0-0); Immature Granulocytes Auto 0.68 Thou/mm3 (0.00-0.00); Lymphocytes # (Auto) 1.5 Thou/mm3 (1.0-4.8); Lymphocytes % (Auto) 13 % (10-50); Mean Corpuscular HGB Conc 29.9 g/dl (31.0-37.0); Mean Corpuscular Hemoglobin 28.6 pg (25.0-35.0); Mean Corpuscular Volume 96 fL (80-100); Monocytes % (Auto) 9 % (0-12); Neutrophils # (Auto) 7.7 Thou/mm3 (1.8-7.7); Neutrophils % (Auto) 68 % (37-80); Nucleated Red Blood Cell # 0.04 Thou/mm3 (0.00-0.00); Nucleated Red Blood Cell % 0 /100 WBC (0); Platelet Count 305 Thou/mm3 (140-440); RDW Standard Deviation 53.8 fL (36.4-46.3); Red Blood Count 3.46 Miln/mm3 (4.00-5.20); White Blood Count 11.2 Thou/mm3 (3.6-11.0)
[2025-01-10 07:16] LABS: Alanine Aminotransferase 23 U/L (10-49); Albumin, Serum 3.9 gm/dL (3.4-4.8); Albumin/Globulin Ratio 1.5 (1.2-2.2); Alkaline Phosphatase 59 U/L (46-116); Anion Gap 7 (7-16); Aspartate Amino Transferase 19 U/L (0-34); BUN/Creatinine Ratio 26 Ratio (12-20); Bilirubin,Total 0.3 mg/dL (0.3-1.2); Blood Urea Nitrogen 34 mg/dL (9-23); Calcium 9.1 mg/dL (8.3-10.6); Calcium (Corrected) 9.2 mg/dL (8.5-10.1); Carbon Dioxide 39.9 mMol/L (20.0-31.0); Chloride 90 mMol/L (98-107); Creatinine (Component) 1.3 mg/dL (0.6-1.3); Estimated Creatinine Clearance 35.7 mL/min (>60); Globulin 2.6 gm/dL (2.3-3.5); Glucose 171 mg/dL (74-106); Magnesium 2.6 mg/dL (1.6-2.6); Osmolality,Calculated 285 (275-295); Phosphorous 3.5 mg/dL (2.4-5.1); Potassium 3.8 mMol/L (3.4-5.1); Sodium 137 mMol/L (136-145); Total Protein 6.5 gm/dL (5.7-8.2); eGFR 40 See Note
[2025-01-10] MEDS: INSULIN LISPRO (AdmeLOG) 1 UNIT/0.01 ML UNIT SC ×3 (07:44→17:40)
[2025-01-10] MEDS: INSULIN LISPRO (AdmeLOG) 1 UNIT/0.01 ML UNIT 5 UNIT SC ×3 (07:44→17:40)
[2025-01-10] MEDS: HEPARIN SOD INJ 5000 UNIT/ML VIAL SC (09:25)
[2025-01-10] MEDS: ASPIRIN EC 81 MG TABEC PO (09:25)
[2025-01-10] MEDS: PANTOPRAZOLE 40 MG TABLET PO (09:25)
[2025-01-10] MEDS: predniSONE 20 MG TABLET 40 MG PO (09:25)
--- NOTE | 2025-01-10 11:38 | PD.IMPROG ---
Documentation for date of: 01/10/25 Subjective Subjective Interval history: Patient resting comfortably Does not appear to be short of breath Exam Vital Signs Temp Pulse Resp BP Pulse Ox O2 Del Method O2 Flow Rate 99.3 F 75 24 H 131/70 H 96 Nasal Cannula 3 01/10/25 08:00 01/10/25 08:00 01/10/25 08:00 01/10/25 08:00 01/10/25 08:00 01/10/25 08:00 01/10/25 08:00 FiO2 40 01/09/25 21:58 Routine HEENT Exam Head: Present normocephalic and atraumatic Eye: Present EOMI and PERRL ENT: Present mucous membranes moist Routine Neck Exam Neck: Present supple and trachea midline Routine Respiratory Exam Respiratory: Present chest non-tender, lungs clear, normal breath sounds and no resp distress Routine Cardiovascular Exam Cardiovascular: Present RRR Routine Abdominal Exam Abdominal: Present soft and normoactive bowel sounds Routine Extremities Exam Extremities: Present full ROM Routine Skin Exam Skin: Present intact, dry and warm Routine Neurological Exam Neurological: Present alert, oriented X3 and CN II-XII intact Routine Psychiatric Exam Psychiatric: Present normal affect and normal thought process Objective Labs 01/10/25 05:10 01/10/25 05:10 Labs: Laboratory Results - last 24 hr 01/10/25 05:10 WBC 11.2 H RBC 3.46 L Hgb 9.9 L Hct 33.1 L MCV 96 MCH 28.6 MCHC 29.9 L RDW Std Deviation 53.8 H Plt Count 305 D Neut % (Auto) 68 Lymph % (Auto) 13 [place] % (Auto) 9 Eos % (Auto) 3 Baso % (Auto) 0 Neut # (Auto) 7.7 Lymph # (Auto) 1.5 [place] # (Auto) 1.0 H Eos # (Auto) 0.3 Baso # (Auto) 0.0 Immature Gran # (Auto) 0.68 H Absolute Nucleated RBC 0.04 H Immature Gran % 6 H Nucleated RBC % 0 Sodium 137 Potassium 3.8 Chloride 90 L Carbon Dioxide 39.9 H Anion Gap 7 BUN 34 H Creatinine 1.3 Estim Creat Clear Calc 35.7 L eGFR 40 L BUN/Creatinine Ratio 26 H Glucose 171 H Calculated Osmolality 285 Calcium 9.1 Corrected Calcium 9.2 Phosphorus 3.5 Magnesium 2.6 Total Bilirubin 0.3 AST 19 ALT 23 Alkaline Phosphatase 59 Total Protein 6.5 Albumin 3.9 Globulin 2.6 Albumin/Globulin Ratio 1.5 ABG Interpretation ABG results: 01/07/25 01/07/25 01/07/25 10:10 12:36 15:28 ABG pH 7.34 L 7.36 ABG pCO2 75 H* 73 H* ABG pO2 107 79 L D ABG HCO3 41 H 41 H ABG O2 Saturation 99 H 96 ABG Base Excess 13 H 13 H VBG pH 7.48 VBG pCO2 54 VBG pO2 80 H VBG Base Excess 15 H 01/08/25 01/08/25 01/09/25 08:00 10:25 07:54 ABG pH 7.41 ABG pCO2 72 H* ABG pO2 83 ABG HCO3 46 H ABG O2 Saturation 98 ABG Base Excess 18 H VBG pH 7.43 7.40 VBG pCO2 69 H D 69 H VBG pO2 41 D 37 VBG Base Excess 19 H 16 H Assessment & Plan A&P Narrative Continue current medical management Continue bronchodilators continue antibiotics Time Spent With Patient Time: Total time spent is greater than 50% in coordination of care (as documented) at patient's floor/unit and/or counseling patient:
--- NOTE | 2025-01-10 12:41 | PD.RESDS ---
Planned Discharge Date 01/10/25 DS: Providers Provider Date of admission: 01/07/25 12:35 Primary care physician: Other Admitting Provider: Paul Mancini DO Attending Provider on Admission: Paul Mancini DO Consults: 01/07/25 14:30 Referral Respiratory Therapy Routine Comment: Pulmonary fibrosis or small airway disease 01/07/25 16:26 Referral Arnot Routine Comment: 01/08/25 10:03 Consult to Cardiology Routine Comment: Consulting Provider: Lluvia Mccann Instructions: CHF exacerbation Attending Provider on DC: Paul Mancini DO Discharging Provider: Paul Mancini DO DS: Diagnosis Problem List Completed Was Problem List Reviewed/Reconciled?: Yes Hospital Course Hospital Course Hospital course: Adelaida is a 89-year-old female with past medical history of hypothyroidism, recurrent UTIs, chronic respiratory failure, right breast cancer status post lumpectomy, bedbound, chronic back pain, type 2 diabetes, GERD, depression, pulmonary fibrosis ?, HFpEF (G1DD) who was admitted to [facility] on 01/07/2025 for multifactorial Acute on chronic hypoxic and hypercarbic respiratory failure. Pt had arrived to the ED afebrile with a heart rate of 105, respiratory rate 22, blood pressure 146/85 and was saturating 94% on 4L. She was worked up and was found to have sodium of 132, chloride 89, potassium 4.8, bicarb 37, BUN/creatinine of 42 and 1.3 respectively, bicarb 37, glucose 374, white count 15, hemoglobin 9.6, platelets 264, pH on ABG 7.34, pCO2 75, bicarb 41. Checks x-ray showed worsening opacity in the lung and pulmonary edema. EKG was done which showed sinus tachycardia, right bundle branch block in V2, QTc of 440. Patient was put on BiPAP and was given budesonide x 1, albuterol x 1 Solu-Medrol 125, Lasix 40, 6 units of regular insulin, DuoNeb x 1, Zosyn x 1 and doxycycline x 1. Medicine was consulted patient was admitted to the floors. While on the floors, pt was diuresed, put on abx (Zoysn as there was concern for aspiration) and received scheduled breathing treatments in addition to steroids. Pt continued with biPAP at night and continued to improve from respiratory standpoint. Pt was brought back to home oyxgen baseline use which is 2L. However, pt developed an STEVE due to diuresis in which it was held and pt's kidney function rebounded. Upon d/c, we held pt's metformin due to kidney function being as below of GFR of 31 and also recommended patient to follow up outpatient with a destination imagination coordinator. Pt has not seen a lung doctor in the past, and pt also has not been a smoker as we informed her she would likely need PFTs for formal workup of restrictive or obstructive lung disease and therefore could be treated appropriately outpatient. Pt was then discharged with the following instructions. Discharge Instructions: Follow up with your PCP within one week of discharge Have your PCP refer you to a [facility] outpatient to manage your airway disease Finish up your antibiotic course, Augmentin Finish up your steroid course of one week, Prednisone 40 mg once a day for one week Take your medicines as prescribed Maintain your oxygen saturations 88-92% I am holding your metformin due to Kidney function, discuss with PCP if to resume I am holding magnesium at this time I am holding your Diclofenac due to your kidney function at this time I am holding your Januvia at this time as well as you don't take this medicine, discuss with PCP for alternatives Return to ER if your symptoms worsen or return Problem List: #Acute on chronic respiratory failure with hypoxia and hypercarbia #Acute on chronic exacerbation of HFpEF with grade 1 diastolic dysfunction #? Pulmonary fibrosis #Community Acquired Pneumonia #? Aspiration pneumonia #Chronic respiratory acidosis with compensatory metabolic alkalosis #History of coronary artery disease #Chronic UTI #Primary hypertension #Hyperlipidemia #Insulin-dependent type 2 diabetes mellitus #Normocytic anemia #History of depression #History of restless leg syndrome #Hx of hypothyroidism Discharge summary was reviewed with my attending Dr. Live Aguila, PGY-1 Time Spent with Patient Time attestation: Total time spent providing and/or coordinating discharge services: Time spent: Greater than 30 minutes Exam Vital Signs Temp Pulse Resp BP Pulse Ox O2 Del Method O2 Flow Rate 99.3 F 75 24 H 131/70 H 96 Nasal Cannula 3 01/10/25 08:00 01/10/25 08:00 01/10/25 08:00 01/10/25 08:00 01/10/25 08:00 01/10/25 08:00 01/10/25 08:00 FiO2 40 01/09/25 21:58 Narrative Exam General: AAOx3, NAD, older women, a bit unkempt, obese elderly female HEENT: Moist mucous membranes, conjunctiva clear, EOMI, PERRLA, Cardiovascular: S1, S2, radial pulses +2 bilat, RRR Pulmonary: Minimal crackles in lung chandra, no wheezing, on 2L NC GI: No tenderness to light or deep palpitation, no guarding, rigidity, rebound tenderness or distension Extremities: Trace edema in lower extremities bilaterally, dorsalis pedis pulses +2 bilaterally Neuro: AAOx3, no focal motor or sensory deficits in the UE or LE bilat Psych: Cooperative Discharge Plan Plan Patient Disposition: HOME (Self Care) Patient condition on transfer: Stable Care Plan Goals: Discharge Instructions: Follow up with your PCP within one week of discharge Have your PCP refer you to a [facility] outpatient to manage your airway disease Finish up your antibiotic course, Augmentin Finish up your steroid course of one week, Prednisone 40 mg once a day for one week Take your medicines as prescribed Maintain your oxygen saturations 88-92% I am holding your metformin due to Kidney function, discuss with PCP if to resume I am holding magnesium at this time I am holding your Diclofenac due to your kidney function at this time I am holding your Januvia at this time as well as you don't take this medicine, discuss with PCP for alternatives Return to ER if your symptoms worsen or return Prescriptions/Referrals Prescriptions/Med Rec: New amoxicillin-pot clavulanate 875-125 mg tablet 1 tab PO BID 3 Days Qty: 6 0RF Rx Instructions: Take one tablet by mouth twice a day prednisone 20 mg tablet 40 mg PO QDAY 7 Days Qty: 14 0RF Rx Instructions: Take two tablets by mouth once a day Continued levothyroxine 75 mcg Tablet 100 mcg PO QAM Rx Instructions: pt now taking 100 MCG methenamine hippurate 1 gram tablet 1 g PO BID Patient Comments: TAKE 1 TABLET BY MOUTH TWICE A DAY WITH 500 MG OF VITAMIN C Rx Instructions: TAKE 1 TABLET BY MOUTH TWICE A DAY WITH 500 MG OF VITAMIN C venlafaxine 150 mg capsule,extended release 24hr 150 mg PO HS omeprazole 40 mg Capsule,Delayed Release(Dr/Ec) 40 mg PO QDAY rosuvastatin 5 mg Tablet 10 mg PO HS aspirin 81 mg Tablet 81 mg PO QDAY ascorbic acid (vitamin C) [Vitamin C] 500 mg Tablet 500 mg PO BID metoprolol succinate 25 mg Tablet Extended Release 24 Hr 25 mg PO QDAY Qty: 30 0RF insulin glargine [Lantus U-100 Insulin] 100 unit/mL solution 10 unit SUBCUT QAM glimepiride 2 mg tablet 2 mg PO BID furosemide 40 mg tablet 40 mg PO QAM Patient Comments: TAKE 1 TABLET BY MOUTH EVERY DAY IN THE MORNING hydrocodone-acetaminophen 10-325 mg tablet 1 tab PO Q12H PRN (Reason: pain) pramipexole 0.5 mg tablet 0.5 mg PO HS Patient Comments: TAKE 1 TABLET BY MOUTH EVERYDAY AT BEDTIME cranberry 500 mg capsule 1,000 mg PO QDAY Rx Instructions: administer with a meal Probiotic 20 billion cell capsule 20,000 mmu cells PO QDAY Rx Instructions: administer with a meal calcium carbonate-vitamin D3 [Calcium 600 + D(3)] 600 mg-5 mcg (200 unit) tablet 0.5 tab PO BID Held diclofenac sodium 1 % Gel 2 g TOPICAL QID Hold Instructions: resume with PCP Rx Instructions: apply to single elbow, wrist or hand; for hand includes palm/fingers/back of hand magnesium 500 mg Tablet 1,000 mg PO QDAY Hold Instructions: resume with PCP metformin 500 mg tablet 500 mg PO BID Hold Instructions: considering resuming with pcp due to kidney function Januvia 50 mg tablet 50 mg PO QDAY 30 Days Qty: 30 3RF Hold Instructions: resume with pcp Referrals: Other,. [Primary Care Provider] - Patient/Caregiver Discharge Instructions Discharge Activity: activity as tolerated Education Materials: Using a Blood Sugar Log, What Is Pneumonia?, Chronic Lung Disease Dyspnea Scale, Diabetes: My Exam and Test Results Print Language: Maldivian Stand Alone Forms: [employer] Award Info., Patient Portal Info Letter Discharge Order Discharge Orders: Discharge (Routine); Ordered 01/10/25 Ordered By: Paul Mancini Quality Discharge Quality Measures VTE prophylaxis (Heparin ) Attestestation Attestation I have discussed and was present for the essential components of the discharge history, physical examination, diagnosis, and discharge treatment plan with the resident. I agree with the patient's discharge care as documented by the resident and amended herein by me. Jason Mancini, DO. The patient understood all discharge instructions, all questions were answered satisfactorily. The patient was instructed to return to the Emergency Department is symptoms worsened or persisted. Patient was stable, afebrile, tolerating p.o. intake, patient on 3 L NC, SpO2 93% at time of discharge. We do recommend pulmonology follow-up for further workup and evaluation in the outpatient setting. Patient discharged with a short course of steroids and Augmentin for pneumonia, see resident note above for additional details. Although this document has been carefully reviewed, there may still be some phonetic and other typographical errors. These errors are purely grammatical due to imperfections in the software program and should not be construed in any way to compromise the substance of the patient's medical care during this visit.
--- NOTE | 2025-01-10 13:00 | PC.SS ---
Addendum entered by Deobrah Urbina 01/10/25 16:16: SS informed by DAMIEN Sheriff patient is needing ambulance transport for discharge home. SS contacted patient's nephew Jg Augustus to inform him of transportation options. Jg stated he is unable to cover cost for ambulance and unable to make it to hospital at this time. SS contacted [facility] for gurney transport availability, [facility] stated no gurney transport today due to staff shortage. PCS FORM and CALISTA Gaston form submitted to [facility] via [employer]. [facility] stated transportation ETA of 1730. SS contacted patient's nephew Jg Augustus to inform him of ETA, DAMIEN Sheriff, and NAHED Diaz also informed. Original Note: SS informed by Dr. Gomez patient is requesting transportation information for medical appointments. SS provided [facility] contact and prices. SS reccommended family contact Medicare directly to inquire about transportation coverage/services.
--- NOTE | 2025-01-10 15:24 | PC.CM ---
Home Health referral initiated through [facility], awaiting responses at this time.
--- NOTE | 2025-01-10 16:56 | PC.NURSE ---
Spoke with Jg carlos who provided number of jewish history professor for today Celine Clarke [phone]. Spoke with Celine who stated will be jewish history professor at home upon discharge. Discharge intructions given to Celine and to patient.
[2025-01-10 23:01] LABS: Folate 6.65 ng/mL (>5.38); Vitamin B12 252 pg/mL (211-911)
--- NOTE | 2025-01-11 08:38 | PC.CC ---
[facility] accepted the pt and it was booked by [facility] transfer nurse. Start of care date is 01/12/25.
[2025-01-11 11:49] LABS: Cocci Serology, IgG Negative (Negative)
== END 2025-01-10 18:00 | disposition home or self-care (01) | DRG 190 ==
LOC: SERX 12:37 → SERHOLD 13:28 → S2NX 15:51
PROVIDERS: Student in an Organized Health Care Education/Training Program; Admitting Provider Student in an Organized Health Care Education/Training Program; Emergency Provider Family Medicine; Visit Provider Student in an Organized Health Care Education/Training Program
DX: J44.1 Chronic obstructive pulmonary disease with (acute) exacerbation (principal); I50.33 Acute on chronic diastolic (congestive) heart failure; J18.9 Pneumonia, unspecified organism; J69.0 Pneumonitis due to inhalation of food and vomit; J96.22 Acute and chronic respiratory failure with hypercapnia; J96.21 Acute and chronic respiratory failure with hypoxia; E87.4 Mixed disorder of acid-base balance; N17.9 Acute kidney failure, unspecified; N39.0 Urinary tract infection, site not specified; M1A.9XX0 Chronic gout, unspecified, without tophus (tophi); F32.A Depression, unspecified; G89.29 Other chronic pain; M54.9 Dorsalgia, unspecified; E11.9 Type 2 diabetes mellitus without complications; I27.21 Secondary pulmonary arterial hypertension; E03.9 Hypothyroidism, unspecified; I11.0 Hypertensive heart disease with heart failure; K21.9 Gastro-esophageal reflux disease without esophagitis; J44.0 Chronic obstructive pulmonary disease with (acute) lower respiratory infection; I45.10 Unspecified right bundle-branch block; E11.65 Type 2 diabetes mellitus with hyperglycemia; E78.5 Hyperlipidemia, unspecified; I25.10 Atherosclerotic heart disease of native coronary artery without angina pectoris; T50.2X5A Adverse effect of carbonic-anhydrase inhibitors, benzothiadiazides and other diuretics, initial encounter; Z66 Do not resuscitate; Z74.01 Bed confinement status; Z79.4 Long term (current) use of insulin; Z79.82 Long term (current) use of aspirin; Z79.899 Other long term (current) drug therapy; E61.1 Iron deficiency; D64.9 Anemia, unspecified; Z85.3 Personal history of malignant neoplasm of breast; G25.81 Restless legs syndrome; J84.10 Pulmonary fibrosis, unspecified; Z87.440 Personal history of urinary (tract) infections; Z99.81 Dependence on supplemental oxygen
CPT/HCPCS: 36415; 36600; 71045; 80053; 80061; 81001; 82607; 82728; 82746; 82803; 83540; 83550; 83605; 83615; 83735; 83880; 84100; 84145; 84484; 85025; 85046; 85610; 85730; 86331; 86635; 87040; 87081; 93005; 94640; 94660; 94667; 94762; 96365; 96366; 96367; 96372; 96375; 99285; A9270; J1120; J1644; J1815; J1938; J2470; J2543; J2919; J3475; J3490; J7050; J7512

== ENCOUNTER 2025-01-25 19:52 | Inpatient (IN) | payer MEDICARE, SELFPAY ==
[2025-01-25] VITALS (9 sets, daily range): BP systolic 112–148; BP diastolic 59–85; PULSE 99–114; RESP 20–28; O2SAT 56–99; BMI 35.9
--- NOTE | 2025-01-25 20:02 | XR_ITS ---
Examination: AP chest single view Technique one AP portable semiupright chest single view Date and time: January 25, 20252049 hours Comparison January 07, 2025 INDICATIONS: Chest pain and shortness of breath weakness today. FINDINGS: Extensive bilateral lung opacity Mild prominence cardiac contour Significant osteopenia IMPRESSION: Again noted extensive bilateral lung opacity, differential would favor pneumonia, pulmonary edema not excluded
[2025-01-25 20:05] LABS: Base Excess 10 (-3-3); HCO3 41 mEq/L (20-26); Inspired O2, VO2 Liters 10 L/min; Inspired Oxygen, FIO2 21 %; O2 Saturation 92 % (91-98); PO2 68 mmHg (83-108); pH, Arterial 7.21 (7.35-7.45)
[2025-01-25 20:11] LABS: Allen Test Performed/OK; Puncture Site Right Radial
[2025-01-25 20:12] LABS: PCO2 102 mmHg (32.0-48.0)
[2025-01-25 20:29] LABS: Collection Type, Urine Clean Catch
[2025-01-25 20:32] LABS: Basophils # (Auto) 0.1 Thou/mm3 (0.0-0.2); Basophils % (Auto) 0 % (0-2.5); Eosinophils # (Auto) 0.3 Thou/mm3 (0.0-0.5); Eosinophils % (Auto) 2 % (0-10); Hematocrit 36.8 % (36.0-46.0); Hemoglobin 11.1 g/dL (12.0-16.0); Immature Granulocytes % (Auto) 2 % (0-0); Immature Granulocytes Auto 0.25 Thou/mm3 (0.00-0.00); Lymphocytes # (Auto) 0.9 Thou/mm3 (1.0-4.8); Lymphocytes % (Auto) 7 % (10-50); Mean Corpuscular HGB Conc 30.2 g/dl (31.0-37.0); Mean Corpuscular Hemoglobin 28.5 pg (25.0-35.0); Mean Corpuscular Volume 94 fL (80-100); Monocytes # (Auto) 0.8 Thou/mm3 (0.0-0.8); Monocytes % (Auto) 6 % (0-12); Neutrophils # (Auto) 10.7 Thou/mm3 (1.8-7.7); Neutrophils % (Auto) 83 % (37-80); Nucleated Red Blood Cell # 0.05 Thou/mm3 (0.00-0.00); Nucleated Red Blood Cell % 0 /100 WBC (0); Platelet Count 210 Thou/mm3 (140-440); White Blood Count 12.9 Thou/mm3 (3.6-11.0)
[2025-01-25 20:43] LABS: INR 0.9 (0.9-1.3); Partial Thromboplastin Time 24.4 Seconds (22.0-36.0); Prothrombin Time 10.4 Seconds (9.0-12.2)
--- NOTE | 2025-01-25 20:47 | PC.RT ---
fio2 totrated at 2037 to 55% spo2 99%
--- NOTE | 2025-01-25 20:48 | PD.EDAMS ---
Altered Mental Status RME/HPI General Chief Complaint: Shortness of Breath/Dyspnea Stated Complaint: SOB Time Seen by Provider: 01/25/25 19:59 Arrival date/time: 01/25/25 19:52 RME / HPI RME / HPI narrative: Dr. Brush?s Main ED Evaluation: 89yo female with a history of hypothyroidism, chronic respiratory failure, right breast cancer s/p lumpectomy, DMII, GERD BIBA from home presents to the ED for a chief complaint of AMS. Patient was seen by me immediately upon arrival. Per EMS, patient was saturating in the 50s on 2L. EMS was bagging her on scene. Upon ED arrival, patient began waking up and no longer needed to be bagged. Full ROS is unobtainable due to the patient's AMS. Related Data Home Medications ?Medication ?Instructions ?Recorded ?Confirmed levothyroxine 75 mcg tablet 100 mcg PO QAM 04/18/20 01/08/25 methenamine hippurate 1 gram tablet 1 g PO BID 04/18/20 01/08/25 omeprazole 40 mg capsule,delayed 40 mg PO QDAY 06/04/21 01/08/25 release rosuvastatin 5 mg tablet 10 mg PO HS 06/04/21 01/08/25 venlafaxine 150 mg 150 mg PO HS 06/04/21 01/08/25 capsule,extended release 24 hr furosemide 40 mg tablet 40 mg PO QAM 08/27/22 01/08/25 ascorbic acid (vitamin C) 500 mg 500 mg PO BID 03/19/24 01/08/25 tablet (Vitamin C) aspirin 81 mg tablet 81 mg PO QDAY 03/19/24 01/08/25 diclofenac sodium 1 % topical gel 2 g topical QID 03/19/24 01/08/25 Held on 01/10/25. Instructions: resume with PCP magnesium 500 mg tablet 1,000 mg PO QDAY 03/19/24 01/08/25 Held on 01/10/25. Instructions: resume with PCP calcium 600 mg (as 0.5 tab PO BID 12/27/24 01/08/25 carbonate)-vitamin D3 5 mcg (200 unit) tablet (Calcium 600 + D(3)) cranberry 500 mg capsule 1,000 mg PO QDAY 12/27/24 01/08/25 hydrocodone 10 mg-acetaminophen 1 tab PO Q12H PRN pain 12/27/24 01/08/25 325 mg tablet lactobacillus comb no.10 20 20,000 mmu cells PO QDAY 12/27/24 01/08/25 billion cell capsule (Probiotic) pramipexole 0.5 mg tablet 0.5 mg PO HS 12/27/24 01/08/25 glimepiride 2 mg tablet 2 mg PO BID 01/08/25 01/08/25 insulin glargine 100 unit/mL 10 unit subcut QAM 01/08/25 01/08/25 subcutaneous solution (Lantus U-100 Insulin) metformin 500 mg tablet 500 mg PO BID 01/08/25 01/08/25 Held on 01/10/25. Instructions: considering resuming with pcp due to kidney function Previous Rx's ?Medication ?Instructions ?Recorded metoprolol succinate 25 mg 25 mg PO QDAY #30 tabs 03/25/24 tablet,extended release 24 hr sitagliptin phosphate 50 mg tablet 50 mg PO QDAY 1 month #30 tabs 12/30/24 (Januvia) Held on 01/10/25. Instructions: resume with pcp Allergies Allergy/AdvReac Type Severity Reaction Status Date / Time cefuroxime Allergy Intermediate Swelling Verified 12/27/24 11:13 of Lip/Tongue/Throat zinc Allergy Intermediate Rash Verified 12/27/24 11:13 iodine Allergy Unknown Verified 12/27/24 11:13 shellfish derived Allergy Unknown Verified 12/27/24 11:13 Sulfa (Sulfonamide Allergy Unknown Verified 12/27/24 11:13 Antibiotics) Review of Systems Review of Systems ROS Unobtainable: unobtainable due to mental status Past Medical History Past Medical History NEUROLOGIC: Negative Neurological Disorders, Cerebrovascular Accident, Transient Ischemic Attacks (TIA), Dementia, Alzheimer's Disease, Parkinson's Disease, Brain Tumor, Meningitis, Seizures, Epilepsy, Multiple Sclerosis, Cerebral Palsy, Amyotrophic Lateral Sclerosis (ALS/Dee Gehrig's), Guillain-[place] Syndrome, Spina Bifida, Paralysis, Peripheral Neuropathy, Salcido's Palsy, Subdural Hematoma, Migraine, Head Trauma, Spinal Cord Injury or Traumatic Brain Injury CARDIAC: Positive Cardiac Disorders, Coronary Artery Disease, Hypercholesterolemia, Congestive Heart Failure and Hypertension; Negative Myocardial Infarction, Cardiac Arrhythmia, Atrial Fibrillation, Angina, Heart Murmur, Atherosclerotic Heart Disease, Peripheral Vascular Disease, Aneurysm, Congenital Heart Disease, Valvular Heart Disease, Rheumatic Fever, Cardiomyopathy, Edema, Pericarditis, Cellulitis, Deep Vein Thrombosis, Hypotension or Varicose Veins RESPIRATORY: Positive Chronic Obstructive Pulmonary Disease (COPD), Pneumonia and Pulmonary Fibrosis; Negative Asthma, Bronchitis, Emphysema, Cystic Fibrosis, Tuberculosis, Pulmonary Embolism, Pulmonary Edema or Sleep Apnea GASTROINTESTINAL: Positive Gastrointestinal Disorders, Gall Bladder Disease, Gastroesophageal Reflux Disease and Obesity; Negative Hepatitis, Cirrhosis, Pancreatitis, Celiac Disease, Gastrointestinal Bleed, Esophageal Varices, White's Esophagus, Colitis, Ulcerative Colitis, Diverticulitis, Diverticulosis, Ulcer, Colorectal Cancer, Irritable Bowel, Crohn's Disease, Obstructive Bowel, Hiatal Hernia or Hemorrhoids GENITOURINARY: Positive Genitourinary Disorders and Kidney Stones; Negative Renal Disease, Polycystic Kidney Disease, Neurogenic Bladder, Inguinal Hernia, Dialysis, Prostate Cancer or Benign Prostatic Hyperplasia REPRODUCTIVE: Positive Breast Cancer; Negative Endometriosis, Genital Herpes, Gonorrhea, Pelvic Inflammatory Disease, Previous Pregnancies, Syphilis, Testicular Cancer or Uterine Prolapse MUSCULOSKELETAL: Positive Musculoskeletal Disorders, Arthritis and Fractures (TAILBONE); Negative Muscular Dystrophy, Myasthenia Gravis, Marfan's Syndrome, Bone Cancer, Rheumatoid Arthritis, Osteoporosis, Degenerative Disk Disease, Gout, Scoliosis, Carpal Tunnel Syndrome, Fibromyalgia, Degenerative Joint Disease, Osteomyelitis or Poliovirus ENT: Negative Cataracts, Glaucoma, Blind, Retinal Detachment, Macular Degeneration, Ear Infection, Deafness, Head Trauma or Eye Prosthesis ENDOCRINE: Positive Endocrine Disorders, Diabetes Mellitus Type 2 and Hypothyroidism; Negative Diabetes Mellitus Type 1, Hypoglycemia, Winona's Syndrome, Galax's Disease, Hyperthyroidism, Parathyroid Disease, Pituitary Disease, Systemic Lupus Erythematosus, Syndrome of Inappropriate Antidiuretic Hormone (SIADH), Adrenal Disease or Graves' Disease HEMATOLOGIC: Negative Blood Disorders, Anemia, Leukemia, Hemophilia, Thalassemia, Sickle Cell Disease or Clotting Problems PSYCHO/SOCIAL: Positive Depression and Anxiety; Negative Psychiatric Problems, Schizophrenia, Recreational Drug Use, Bipolar Disorder, Behavior Problems, Self-Mutilation, Attention Deficit Disorder, Attention Deficit Hyperactivity Disorder, Depression, Post Traumatic Stress Disorder or Eating Disorder OTHER HISTORY: Positive Cancer and Breast Cancer; Negative Hospitalization, Autoimmune Disease, Down Syndrome, Autism, Developmental Delay, Shingles, Falls, Blood Transfusions, Blood Transfusion Reaction, Anesthesia Reactions, Organ Transplant, Chemotherapy, Radiation Therapy, Hyperbaric Therapy, MRSA, VRSA, Vancomycin-Resistant Enterococci, Human Immunodeficiency Virus (HIV), Chicken Pox, Measles, Mumps, Rubella ([place] Measles), Pertussis, Clostridium Difficile, Cervical Cancer, Colorectal Cancer, Lung Cancer, Ovarian Cancer, Prostate Cancer or Testicular Cancer Family History FAMILY HISTORY: Positive Family Cancer; Negative Family Psychiatric Problems, Family Respiratory Disorders, Family Cardiac Disorders, Family Gastrointestinal Problems, Family Surgery or Family Anesthesia Reaction Surgical History SURGICAL: Positive Tonsillectomy, Abdominal Surgery and Lumpectomy; Negative Cardiac Surgery, Open Heart Surgery, Coronary Artery Bypass Graft, Valve Replacement, Vascular Surgery, Coronary Stent, Cardiac Catheterization, Pacemaker, Angiogram, Auto Implanted Cardiovert Defib, Carotid Endarterectomy, Endocrine Surgery, Thyroidectomy, Ear Surgery, Tympanostomy Tube, Eye Surgery, Nose Surgery, Oral Surgery, Adenoidectomy, Cochlear Implant, Corneal Transplant, Throat Surgery, Tracheostomy, Gastric Bypass Surgery, Gastrostomy, Bowel Surgery, Nephrectomy, Transurethral Resection, Joint Replacement, Amputation, Open Reduction Internal Fixation, Arthroscopy, Neurologic Surgery, Brain Shunt, Mastectomy, Hysterectomy, Tubal Ligation, Section or Organ Transplant Social History SMOKING STATUS: Former smoker SECOND HAND EXPOSURE: No ED Exam Narrative Physical exam: GENERAL APPEARANCE: awake, responsive to voice, well-developed, well-nourished, no acute distress VITALS: All vitals were reviewed and the pulse ox is 92% on 13L/oxy mask, which is hypoxic according to my interpretation. HEENT: Normocephalic, atraumatic; pupils equal, round, reactive to light; EOMI; mucous membranes pink, moist; oropharynx clear NECK: Supple LUNGS: CTABL; having some shallow breaths, no wheezes, no rales, no rhonchi HEART: Regular rate, regular rhythm; normal S1, S2; no murmurs ABDOMEN: non distended; normal BS; soft, no tenderness, no guarding, no rebound; no masses, no organomegaly, no hernia BACK: no CVA tenderness EXTREMITIES: atraumatic; no edema NEUROLOGIC: awake; responsive to voice; cranial nerves II-XII grossly intact; no focal sensory or motor deficits PSYCHIATRIC: appropriate mood and affect SKIN: warm, dry, normal color; no rashes Course Course Course Narrative: CXR is ordered for determining the etiology of AMS. Quality Measures none Orders Category Date Time Status Bedside COVID-19 Antigen Test NOW Care 01/25/25 23:06 Active Bedside Influenza A&B Antigen Test NOW Care 01/25/25 23:06 Completed Account Review Specialist NOW Care 01/25/25 20:02 Active EKG (ED ONLY) *Do not use* NOW Care 01/25/25 20:02 Completed Insert IV NOW Care 01/25/25 20:03 Active EKG (ED Only) Stat Exams 01/25/25 20:02 Ordered XR chest 1V portable Stat Exams 01/25/25 20:02 Completed ABG [Arterial Blood Gas] Stat Lab 01/25/25 19:57 Completed ABG [Arterial Blood Gas] Stat Lab 01/25/25 22:26 Completed ABG [Arterial Blood Gas] Stat Lab 01/26/25 00:16 Received B-Type Natriuretic Peptide Stat Lab 01/25/25 19:58 Completed Blood Culture (Lab) Stat Lab 01/25/25 22:02 Received CBC Stat Lab 01/25/25 19:58 Completed Comprehensive Metabolic Panel Stat Lab 01/25/25 19:58 Completed Lactate (Lactic Acid) Stat Lab 01/25/25 19:58 Completed Lipase Stat Lab 01/25/25 19:58 Completed Magnesium Stat Lab 01/25/25 19:58 Completed Partial Thromboplastin Time Stat Lab 01/25/25 19:58 Completed Procalcitonin Stat Lab 01/25/25 19:58 Completed Prothrombin Time with INR Stat Lab 01/25/25 19:58 Completed Troponin I Stat Lab 01/25/25 19:58 Completed Urinalysis Stat Lab 01/25/25 20:20 Completed Urine Culture Stat Lab 01/25/25 20:20 Received BiPAP / CPAP NOW RT 01/25/25 20:04 Active BiPAP / CPAP NOW RT 01/25/25 20:16 Active Vital Signs Vital signs: Vital Signs Pulse Rate 113 H 01/25/25 20:05 Respiratory Rate 28 H 01/25/25 20:05 Blood Pressure 148/67 H 01/25/25 20:05 Pulse Oximetry (%) 92 L 01/25/25 20:05 Oxygen Delivery Method Oxy Mask 01/25/25 20:05 Oxygen Flow Rate 13 01/25/25 20:05 Altered Mental Status MDM Narrative MDM Narrative:: ABG results came back and showed the patient is hypercapnic. BiPAP ordered. Patient data External records reviewed:: [facility] previous records (Per chart review, patient was admitted here on 01/07/25 for acute exacerbation of chronic obstructive airways disease.) Clinical information provided by:: EMS Social determinants that could affect healthcare access:: none Patient has the following chronic illnesses:: hypothyroidism, chronic respiratory failure, right breast cancer s/p lumpectomy, DMII, GERD, depression, pulmonary fibrosis ?, HFpEF (G1DD) How is presenting disease/condition affected by chronic disease/condition?: exacerbated by Evaluation data The following diagnostics were reviewed and interpreted by me:: lab results, radiology exam(s) and EKG tracing(s) Lab and/or radiology exams considered but not ordered:: none Interpretation Summary: WBC 12.9, PT/INR/PTT normal, ABG shows low pH 7.21, elevated pCO2 102, pO2 68, elevated HCO3 41; BUN 27, Glucose 249, Lactic Acid normal, Troponin normal, BNP 213, Procalcitonin normal, UA positive for UTI. Repeat ABG shows low pH 7.21, elevated pCO2 101, pO2 88, elevated HCO3 41. EKG done at 1952, sinus tachycardia, rate of 114, occasional PVC, mild baseline wander, RBBB, ST depression in V2, V4, and V5, no acute ischemic changes, according to my interpretation. ----- Register Imaging Report Signed Patient: SHAN SLAUGHTER [facility]. Record#: [id number] Birthdate: 1935 Age/Sex: 89 / F Location: [facility] Attending Dr: Ordering Physician: Kritsen Brush MD Date of Service: 01/25/25 Procedure(s): XR chest 1V portable Accession Number(s): [id number] cc: Christian Cárdenas MD; Kristen Brush MD; Paco William~ Examination: AP chest single view Technique one AP portable semiupright chest single view Date and time: January 25, 20252049 hours Comparison January 07, 2025 INDICATIONS: Chest pain and shortness of breath weakness today. FINDINGS: Extensive bilateral lung opacity Mild prominence cardiac contour Significant osteopenia IMPRESSION: Again noted extensive bilateral lung opacity, differential would favor pneumonia, pulmonary edema not excluded Dictated By: Christian Cárdenas MD Signed By: <Electronically signed by Christian Cárdenas MD in [place] 01/25/252057 Medications / Prescriptions Medications or Prescriptions considered but not ordered:: none Medication administrations:: Medication Administration History Acetaminophen (Acetaminophen 325 Mg Tablet) 650 mg PO Q6H PRN PRN Reason: Fever >99.5 Stop: 02/24/25 23:42 Acetaminophen (Acetaminophen 325 Mg Tablet) 1,000 mg PO Q6H PRN PRN Reason: PAIN SCALE 1-3 (mild Stop: 02/24/25 23:42 Hydrocodone Bitart/Acetaminophen (Hydrocodone/Apap 10325 Tab) 1 tab PO Q12HR PRN PRN Reason: PAIN Stop: 01/30/25 23:51 Dextrose (Dextrose 50%-Water Inj 50 Ml Syringe) 25 ml IV Q15MIN PRN PRN Reason: BG 50-70 responsive npo pt Stop: 02/24/25 23:49 Dextrose (Dextrose 50%-Water Inj 50 Ml Syringe) 50 ml IV Q15MIN PRN PRN Reason: BG <50 OR BG <70 & pt unresponsive Stop: 02/24/25 23:49 Furosemide (Furosemide Inj 10 Mg/Ml 4ml Vial) 40 mg IVP BIDD [place]TE Stop: 02/24/25 23:44 Glucagon (Glucagon Inj 1 Mg Vial) 1 mg IM Q15MIN PRN PRN Reason: BG <70, and no IV access Heparin Sodium (Porcine) (Heparin Sod Inj 5000 Unit/Ml Vial) 5,000 unit SC Q8HR [place]ETTE Stop: 02/09/25 05:59 Cefepime HCl 1 gm/ Sodium (Chloride) 50 mls @ 100 mls/hr IV Q12HR [place] Stop: 02/01/25 23:47 Vancomycin/Sodium Chloride (Vancomycin/Ns 1 Gm Ivpb) 200 mls @ 120 mls/hr IV X1 ONE Stop: 01/26/25 01:54 Insulin Glargine (Insulin Glargine (Lantus) 5 Unit/0.05 Ml (Per 5 Units)) 10 unit SC QDAY [place] Stop: 02/25/25 08:59 Insulin Human Lispro (Insulin Lispro (Admelog) 1 Unit/0.01 Ml Unit) 0 unit SC AC [facility]; Protocol Stop: 02/25/25 07:29 Levothyroxine Sodium (Levothyroxine Sodium 100 Mcg Tablet) 100 mcg PO ACBR [facility] Stop: 02/25/25 05:59 Metoprolol Succinate (Metoprolol Succinate Xl 25 Mg Tabcr) 25 mg PO QDAY [place] Stop: 02/25/25 08:59 Ondansetron HCl (Ondansetron Inj 2 Mg/Ml Inj 2 Ml) 4 mg IVP Q6H PRN; Protocol PRN Reason: NAUSEA OR VOMITING Stop: 02/24/25 23:42 Pantoprazole Sodium (Pantoprazole Inj 40 Mg Vial) 40 mg IVP QDAY [place] Stop: 02/25/25 08:59 Pharmacy Consult (Vancomycin Pharmacy To Dose 1 Each Each) 1 each IV QDAY [place] Stop: 02/25/25 08:59 none Consultations Consultation(s) initiated? (list below): Yes Consultation #1 (Physician, Specialty, Details): Discussed case with the resident physician, attending Dr. Callejas from Hospitalist service regarding admission. Discussed patients ED course, exam findings, labs, and radiology results. The Hospitalist agrees to accept the patient for admission. Time: 23:07 Diagnosis Differential diagnosis altered mental status: other (CHF, COPD, ACS, CVA, pneumonia) Most likely diagnosis given after review of the tests above:: see clinical impression below Admission Indicated Admission indicated?: indicated Admission Request Was there a request for admission?: Yes Admission Attestation Admission request attestation: Discussed case with [] from Hospitalist service regarding admission. Discussed patients ED course, exam findings, labs, and radiology results. The Hospitalist [agrees,declines] to accept the patient for admission. Disposition Plan Disposition Plan: Admit Critical Care Time Critical Care Time Critical Care Time: Yes Total Critical Care Time (min.): 35 Attestation: The high probability of sudden, clinically significant deterioration in the patient?s condition required the highest level of my preparedness to intervene urgently. The services I provided to this patient were to treat and/or prevent clinically significant deterioration. Services included the following: chart data review, reviewing nursing notes and/or old charts, documentation time, lifestyle consultant collaboration regarding findings and treatment options, medication orders and management, direct patient care, vital sign assessments and ordering, interpreting and reviewing diagnostic studies and lab tests. Aggregate critical care time includes only time during which I was engaged in work directly related to the patient?s care, as described above, whether at bedside or elsewhere in the Emergency Department. It did not include time spent performing other reported procedures or the services of residents, students, nurses or physician assistants. Discharge Plan Plan Patient Disposition: Admit Acute Care w/in Hospital Problem List Clinical Impression: Acute hypercapnic respiratory failure
[2025-01-25 20:53] LABS: Alanine Aminotransferase 15 U/L (10-49); Albumin, Serum 3.8 gm/dL (3.4-4.8); Albumin/Globulin Ratio 1.5 (1.2-2.2); Alkaline Phosphatase 66 U/L (46-116); Anion Gap 6 (7-16); BUN/Creatinine Ratio 23 Ratio (12-20); Bilirubin,Total 0.3 mg/dL (0.3-1.2); Blood Urea Nitrogen 27 mg/dL (9-23); Calcium 9.8 mg/dL (8.3-10.6); Carbon Dioxide 39.5 mMol/L (20.0-31.0); Chloride 92 mMol/L (98-107); Creatinine (Component) 1.2 mg/dL (0.6-1.3); Estimated Creatinine Clearance 37.5 mL/min (>60); Globulin 2.6 gm/dL (2.3-3.5); Glucose 249 mg/dL (74-106); Lipase 18 U/L (12-53); Magnesium 1.7 mg/dL (1.6-2.6); Osmolality,Calculated 286 (275-295); Potassium 5.1 mMol/L (3.4-5.1); Procalcitonin 0.18 ng/ml (0.0-0.49); Sodium 137 mMol/L (136-145); Total Protein 6.4 gm/dL (5.7-8.2); Troponin I < 0.020 ng/mL (0.0-0.045); eGFR 44 See Note
[2025-01-25 20:58] LABS: Bacteria,Urine Rare; Bilirubin,Urine Negative (Negative); Blood,Urine Negative (Negative); Budding Yeast,Urine Present; Clarity,Urine Turbid (Clear/Hazy); Color,Urine Lt-Yellow (Lt Yel-Yel); Glucose, Urine Negative (Negative); Hyaline Casts,Urine < 1 /hpf (0-1); Ketones,Urine Negative (Negative); Leukocyte Esterase,Urine Positive (Negative); Nitrite,Urine Negative (Negative); Protein,Urine Trace (Neg - Trace); RBC,Urine 35 /hpf (0-3); Specific Gravity,Urine 1.014 (1.001-1.035); Squamous Epithelial Cell,Urine 5 /hpf (0-5); Urobilinogen,Urine Negative mg/dL (0.0-1.0); WBC,Urine 195 /hpf (0-5)
[2025-01-25 21:21] LABS: B-Type Natriuretic Peptide 213 pg/mL (0-100)
--- NOTE | 2025-01-25 22:32 | PC.RT ---
fio2 titrared to 50%
[2025-01-25 22:33] LABS: Base Excess 10 (-3-3); HCO3 41 mEq/L (20-26); O2 Saturation 97 % (91-98); PCO2 101 mmHg (32.0-48.0); PO2 88 mmHg (83-108); pH, Arterial 7.21 (7.35-7.45)
[2025-01-25 22:34] LABS: Inspired Oxygen, FIO2 50 %
[2025-01-25 22:36] LABS: Allen Test Not Performed; Puncture Site Left Radial
--- NOTE | 2025-01-25 22:56 | PC.RT ---
ipap increased to 22 epap 5, RR b24 per abg reesults
--- NOTE | 2025-01-25 23:42 | PD.RESHP ---
Documentation for date of: 01/25/25 HPI History of Present Illness Chief complaint: hypoxia History of present illness: History is limited as the patient is altered and on Bipap 89-year-old female with past medical history of hypothyroidism, recurrent UTIs, chronic respiratory failure, right breast cancer status post lumpectomy, bedbound, chronic back pain, type 2 diabetes, GERD, depression, pulmonary fibrosis ?, HFpEF who was brought to the ED after being found unresponsive at home. According to the primary caregiver patient has been having some shortness of breath for the past week and states that throughout the night she desaturates to the 60s however when care providers wakes the patient up she was responsive and talking stating she was feeling fine. During the day patient's oxygenation levels are normal above 90%. However last night patient desatted to the 40s and again was stating that she was fine and had no complaints at the time. When caregiver went and saw the patient between 1 and 7 PM the following day patient was unresponsive not responding to various stimuli called 911 and brought the patient here to the ER. Last discharge patient and caregiver were instructed that the patient will require BiPAP at night and whenever she takes a nap during the day which usually is 3 hours long, however instructions were not followed. In the ER patient had ABGs done which showed some respiratory acidosis with hypercapnia was placed on BiPAP and repeat ABGs were drawn which showed no improvement even with changes in BiPAP settings. ED course: ED vitals: BP 148/67, HR 113, respiratory rate 28, saturating 92% on 13 L oxy mask with FiO2 70% ED labs: Leukocytosis, normocytic anemia, ABG showing respiratory acidosis with hypercapnia, bicarb 39.5, BUN 27, creatinine 1.2, glucose 249, BNP 213 UA positive for UTI PMHx: As above SX Hx: Lumpectomy, Cholecystectomy Allergies: Sulfa abx, cefuroxime Family Hx:Limited Social Hx: Denies alcohol use, or susbstance abuse, denies cigarette use Spoke to the caregiver and provided number of nephew who is her sole family member and stated that the patient is DNR but we are allowed to intubate the patient if required. Patient is limited code no chest compressions but intubation is okay decision was witnessed by Dr. Montgomery my attending Dr. Callejas and co-resident Dr. Dykes. We will continue to evaluate subsequent ABGs with changes in BiPAP settings. Exam Vital Signs Pulse Resp BP Pulse Ox O2 Del Method O2 Flow Rate FiO2 99 24 H 114/59 L 98 BiPAP 13 55 01/25/25 23:33 01/25/25 23:33 01/25/25 23:33 01/25/25 23:33 01/25/25 23:33 01/25/25 20:05 01/25/25 22:15 Narrative Exam Physical Exam GENERAL: Lethargic, on BiPAP, obese, GCS of 11 HEENT: Dry mucosa. Eyes open, symmetrical, & clear CARDIO: Heart RRR, no obvious murmurs PULM: No noted coughing, decreased breath sounds bilaterally, some crackles noted however examination was limited GI: Abdomen soft, nondistended, no pain on palpation. BSx4 SKIN/MSK/EXT: Bilateral lower extremity edema, no pain on palpation. Pedal pulses present B/L Reevaluation: Physical Exam GENERAL: NAD, GCS of 14, BiPAP HEENT: Moist mucosa. Eyes open, symmetrical, & clear CARDIO: Heart RRR, no obvious murmurs PULM: No noted coughing, decreased breath sounds bilaterally, some crackles noted however examination was limited GI: Abdomen soft, nondistended, no pain on palpation. BSx4 SKIN/MSK/EXT: Bilateral lower extremity edema, no pain on palpation. Pedal pulses present B/L NEURO: GCS of 14 (E: 4, V: 4, M: 6), able to move all 4 extremities Results: Labs 01/25/25 19:58 01/25/25 19:58 Labs: Short CBC 01/25/25 Range/Units 19:58 WBC 12.9 H (3.6-11.0) Thou/mm3 Hgb 11.1 L (12.0-16.0) g/dL Hct 36.8 (36.0-46.0) % Plt Count 210 D (140-440) Thou/mm3 BMP 01/25/25 19:58 Sodium 137 Potassium 5.1 Chloride 92 L Carbon Dioxide 39.5 H BUN 27 H Creatinine 1.2 Glucose 249 H Calcium 9.8 Cardiac Enzymes 01/25/25 Range/Units 19:58 Troponin I < 0.020 (0.0-0.045) ng/mL Liver Function 06/10/25 Range/Units 19:58 Total Bilirubin 0.3 (0.3-1.2) mg/dL ALT 15 (10-49) U/L Alkaline Phosphatase 66 (46-116) U/L Albumin 3.8 (3.4-4.8) gm/dL Urine 01/25/25 Range/Units 20:20 Urine Color Lt-Yellow (Lt Yel-Yel) Urine Clarity Turbid A (Clear/Hazy) Urine pH 6.0 (5.0-7.0) Ur Specific [place] 1.014 (1.001-1.035) Urine Protein Trace (Neg - Trace) Urine Glucose (UA) Negative (Negative) ABG Interpretation ABG results: 01/25/25 01/25/25 19:57 22:26 ABG pH 7.21 L 7.21 L ABG pCO2 102 H* 101 H* ABG pO2 68 L 88 D ABG HCO3 41 H 41 H ABG O2 Saturation 92 97 ABG Base Excess 10 H 10 H Quality Measures Quality Measures none Advance care planning discussed with:: patient Medications Home Medications and Allergies Home Medications ?Medication ?Instructions ?Recorded ?Confirmed ?Type levothyroxine 75 mcg tablet 100 mcg PO QAM 04/18/20 01/08/25 History methenamine hippurate 1 gram tablet 1 g PO BID 04/18/20 01/08/25 History omeprazole 40 mg capsule,delayed 40 mg PO QDAY 06/04/21 01/08/25 History release rosuvastatin 5 mg tablet 10 mg PO HS 06/04/21 01/08/25 History venlafaxine 150 mg 150 mg PO HS 06/04/21 01/08/25 History capsule,extended release 24 hr furosemide 40 mg tablet 40 mg PO QAM 08/27/22 01/08/25 History ascorbic acid (vitamin C) 500 mg 500 mg PO BID 03/19/24 01/08/25 History tablet (Vitamin C) aspirin 81 mg tablet 81 mg PO QDAY 03/19/24 01/08/25 History diclofenac sodium 1 % topical gel 2 g topical QID 03/19/24 01/08/25 History Held on 01/10/25. Instructions: resume with PCP magnesium 500 mg tablet 1,000 mg PO QDAY 03/19/24 01/08/25 History Held on 01/10/25. Instructions: resume with PCP calcium 600 mg (as 0.5 tab PO BID 12/27/24 01/08/25 History carbonate)-vitamin D3 5 mcg (200 unit) tablet (Calcium 600 + D(3)) cranberry 500 mg capsule 1,000 mg PO QDAY 12/27/24 01/08/25 History hydrocodone 10 mg-acetaminophen 1 tab PO Q12H PRN pain 12/27/24 01/08/25 History 325 mg tablet lactobacillus comb no.10 20 20,000 mmu cells PO QDAY 12/27/24 01/08/25 History billion cell capsule (Probiotic) pramipexole 0.5 mg tablet 0.5 mg PO HS 12/27/24 01/08/25 History glimepiride 2 mg tablet 2 mg PO BID 01/08/25 01/08/25 History insulin glargine 100 unit/mL 10 unit subcut QAM 01/08/25 01/08/25 History subcutaneous solution (Lantus U-100 Insulin) metformin 500 mg tablet 500 mg PO BID 01/08/25 01/08/25 History Held on 01/10/25. Instructions: considering resuming with pcp due to kidney function Allergies Allergy/AdvReac Type Severity Reaction Status Date / Time cefuroxime Allergy Intermediate Swelling Verified 12/27/24 11:13 of Lip/Tongue/Throat zinc Allergy Intermediate Rash Verified 12/27/24 11:13 iodine Allergy Unknown Verified 12/27/24 11:13 shellfish derived Allergy Unknown Verified 12/27/24 11:13 Sulfa (Sulfonamide Allergy Unknown Verified 12/27/24 11:13 Antibiotics) Assessment & Plan Plan 89-year-old female with past medical history of 89-year-old female with past medical history of hypothyroidism, recurrent UTIs, chronic respiratory failure, right breast cancer status post lumpectomy, bedbound, chronic back pain, type 2 diabetes, GERD, depression, pulmonary fibrosis ?, HFpEF who was brought to the ED after being found unresponsive at home. #Acute on chronic hypoxic and hypercapnic respiratory failure secondary to #Acute encephalopathy #Community-acquired pneumonia #?Pulmonary fibrosis Patient has been having about a week of desaturating to the 40s% to 60% at night. Caregiver went home today around the afternoon and found the patient to be unresponsive to various stimuli called EMS and brought the patient here to the ER ABG was done and showed respiratory acidosis with hypercapnia was placed on BiPAP, subsequent ABG showed no improvement, BiPAP settings were adjusted will follow-up subsequent ABG for improvement if not patient is low threshold for intubation. Chest x-ray showed bilateral lung opacities, pneumonia versus pulmonary edema in the differential Follow-up ABG showed improvement in an acid-base status we will continue on BiPAP at this time. Initially patient came with a GCS of 11 on reevaluation after BiPAP settings were adjusted patient's GCS came back to 14, and was able to move all 4 extremities ? Follow-up ABGs ? BiPAP ? Levaquin ? Vancomycin ? Follow-up blood cultures ? Follow-up urine cultures ? N.p.o. until swallow screen is passed #Acute decompensated heart failure exacerbation #HFpEF [65%] Presented with clinical signs such as shortness of breath, bilateral leg swelling, CXR: Bilateral lung opacities, pulmonary edema cannot be excluded BNP: 213 Last echo: December 2024: Normal left ventricular size and function. Approximate ejection fraction is 65%. Trace mitral and trace tricuspid regurgitation. No wall motion abnormalities noted. ? IV Lasix 40 twice daily ? Metoprolol 25 mg daily ? Keep K>4, Mg>2 ? Provide oxygen as required ? Strict I's and O's ? Fluid restriction #Diabetes mellitus type 2 Last A1c: December 2024, 7.1 ? SSI ? Hypoglycemia protocol in place ? Lantus 10 units daily #Hypothyroidism ? Resume levothyroxine as taken at home #CODE STATUS Spoke to the caregiver and provided number of nephew who is her sole family member and stated that the patient is DNR but we are allowed to intubate the patient if required. Patient is limited code no chest compressions but intubation is okay decision was witnessed by attending Dr. Callejas and co-resident Dr. Dykes. We will continue to evaluate subsequent ABGs with changes in BiPAP settings. Health Maintenance: Disposition: Telemetry, low threshold for intubation Fluids: None Feeding: N.p.o. till swallow screen Thrombo prophylaxis: Heparin Gastric Ulcer prophylaxis: Pantoprazole CODE STATUS: Limited code, no CPR but agreeable to intubation, please see #CODE STATUS for more information Case discussed with my attending Dr. Júnior Wolff MD PGY-1 Disclaimer: Despite multiple revisions, due to the dictation software being used, the document bellow may not be free of grammatical errors including phonetic/typographic errors. However, this does not deter from our commitment to providing health care in the patient's best interest in mind. Attending Provider Attestation/Addendum I reviewed labs, imaging, EKG, home medications and prior available records. Face to face evaluation was performed by me. I have personally examined the patient and discussed assessment and plan with the IM team. I reviewed the resident note and agree with the plan with exceptions as below. Acute encephalopathy Acute on chronic hypoxic respiratory failure Acute hypercapnic respiratory failure History of HFpEF History of pulmonary fibrosis Extensive bilateral pneumonia Goals of care discussion/counseling Started BiPAP. She has respiratory acidosis. Repeat ABG and if not improving then intubate and upgrade to ICU Start IV Lasix 40 mg daily Started IV vancomycin/cefepime Discussed goals of care with the patient's nephew: She is DNR but okay to intubation Start insulin Lantus plus sliding scale insulin. Monitor fingersticks Start levothyroxine
[2025-01-26] VITALS (35 sets, daily range): BP systolic 94–128; BP diastolic 53–81; PULSE 80–118; RESP 12–66; TEMP 36.3–37.7; O2SAT 92–99
[2025-01-26 00:37] LABS: Base Excess 11 (-3-3); HCO3 40 mEq/L (20-26); Inspired Oxygen, FIO2 40 %; O2 Saturation 95 % (91-98); PCO2 83 mmHg (32.0-48.0); PO2 71 mmHg (83-108); pH, Arterial 7.29 (7.35-7.45)
[2025-01-26 00:40] LABS: Allen Test Performed/OK; Puncture Site Left Radial
--- NOTE | 2025-01-26 00:42 | PC.RT ---
fio2 titrared to 30% spo2 99%
[2025-01-26] MEDS: VANCOMYCIN/NS 1 GM IVPB 200 ML IV ×2 (00:53→08:13)
[2025-01-26 01:14] LABS: Glucose Estimated Average 180 mg/dL (80-131); Hemoglobin A1C 7.9 % Hgb (4.8-6.0)
--- NOTE | 2025-01-26 02:30 | PC.NURSE ---
CAREGIVER CONTACT- VIANNEY [phone]
--- NOTE | 2025-01-26 02:56 | PC.RT ---
fio2 increased to 35% due to spo2 in the low 90s
--- NOTE | 2025-01-26 03:05 | PC.NURSE ---
THIS RN INFORMED PROVIDER FRANCISCO SHELL OF NEED OF [facility] ORDER TO INFUSE A TOTAL OF 2 GRAMS. PER PROVIDER I ATTEMPTED TO REACH [facility] THREE TIMES NO ANSWER. . THIS RN ATTEMPTED TO REACH [facility] NO ANSWER. WILL ATTEMPT AGAIN.
[2025-01-26 03:33] LABS: Base Excess 13 (-3-3); HCO3 40 mEq/L (20-26); Inspired Oxygen, FIO2 35 %; O2 Saturation 95 % (91-98); PCO2 69 mmHg (32.0-48.0); PO2 66 mmHg (83-108); pH, Arterial 7.38 (7.35-7.45)
[2025-01-26 03:34] LABS: Allen Test Performed/OK; Puncture Site Left Radial
[2025-01-26 05:00] LABS: Basophils % (Auto) 0 % (0-2.5); Eosinophils # (Auto) 0.1 Thou/mm3 (0.0-0.5); Eosinophils % (Auto) 1 % (0-10); Hematocrit 33.1 % (36.0-46.0); Hemoglobin 9.9 g/dL (12.0-16.0); Immature Granulocytes % (Auto) 1 % (0-0); Immature Granulocytes Auto 0.12 Thou/mm3 (0.00-0.00); Lymphocytes # (Auto) 0.5 Thou/mm3 (1.0-4.8); Lymphocytes % (Auto) 5 % (10-50); Mean Corpuscular HGB Conc 29.9 g/dl (31.0-37.0); Mean Corpuscular Hemoglobin 28.9 pg (25.0-35.0); Mean Corpuscular Volume 97 fL (80-100); Monocytes # (Auto) 0.6 Thou/mm3 (0.0-0.8); Monocytes % (Auto) 5 % (0-12); Neutrophils # (Auto) 9.4 Thou/mm3 (1.8-7.7); Neutrophils % (Auto) 88 % (37-80); Nucleated Red Blood Cell # 0.03 Thou/mm3 (0.00-0.00); Nucleated Red Blood Cell % 0 /100 WBC (0); Platelet Count 169 Thou/mm3 (140-440); RDW Standard Deviation 57.6 fL (36.4-46.3); Red Blood Count 3.43 Miln/mm3 (4.00-5.20); White Blood Count 10.8 Thou/mm3 (3.6-11.0)
--- NOTE | 2025-01-26 05:16 | PC.NURSE ---
THIS RN SPOKE WITH THE MEDICINE TEAM TO INFORM THEM OF PATIENTS PRESSURE 96/55 (68). NO ORDERED RECEIVED.
[2025-01-26 05:22] LABS: Alanine Aminotransferase 12 U/L (10-49); Albumin, Serum 3.5 gm/dL (3.4-4.8); Albumin/Globulin Ratio 1.5 (1.2-2.2); Alkaline Phosphatase 56 U/L (46-116); Anion Gap 3 (7-16); BUN/Creatinine Ratio 25 Ratio (12-20); Bilirubin,Total 0.4 mg/dL (0.3-1.2); Blood Urea Nitrogen 30 mg/dL (9-23); Calcium 9.7 mg/dL (8.3-10.6); Calcium (Corrected) 10.1 mg/dL (8.5-10.1); Carbon Dioxide 39.4 mMol/L (20.0-31.0); Chloride 94 mMol/L (98-107); Creatinine (Component) 1.2 mg/dL (0.6-1.3); Estimated Creatinine Clearance 37.9 mL/min (>60); Globulin 2.3 gm/dL (2.3-3.5); Glucose 251 mg/dL (74-106); Magnesium 1.5 mg/dL (1.6-2.6); Osmolality,Calculated 286 (275-295); Phosphorous 2.3 mg/dL (2.4-5.1); Potassium 4.9 mMol/L (3.4-5.1); Sodium 136 mMol/L (136-145); Thyroid Stimulating Hormone 2.13 uIU/mL (0.55-4.78); Total Protein 5.8 gm/dL (5.7-8.2); eGFR 44 See Note
[2025-01-26] MEDS: LEVOFLOXACIN/D5W 750MG IVPB 750 MG/150 ML BAG 100 MG IV (05:22)
[2025-01-26] MEDS: HEPARIN SOD INJ 5000 UNIT/ML VIAL SC ×3 (08:01→21:17)
[2025-01-26] MEDS: Magnesium Sulfate 4 GM Ivpb 4 GM/50 ML BAG IV (09:40)
[2025-01-26] MEDS: PANTOPRAZOLE INJ 40 MG VIAL IVP (09:42)
[2025-01-26 12:31] LABS: Base Excess, Venous 15 (-3-3); O2 Saturation, Venous 92 % (96-97); PCO2, Venous 50 mmHg (36-56); PO2, Venous 52 mmHg (15-58)
--- NOTE | 2025-01-26 13:55 | ESPR_ITS ---
<Statement entered by Benjamin Larsen MD - 01/26/25 22:26> Patient was admitted overnight for acute on chronic hypoxic respiratory failure secondary to community-acquired pneumonia complicated by acute decompensated heart failure. Patient on home oxygen but for the last few weeks demand has increased from 2 L to 4 L. Currently patient on BiPAP, plan is to wean off to nasal cannula when tolerated. Meanwhile we will continue with Levaquin, vancomycin, daily IV Lasix and metoprolol XL. I discussed with and supervised the recruiting internship physician involved in the care of this patient. Patient assessment and plan was discussed with entire medicine team, including my attending. I agree with the assessment and plan as documented by recruiting internship doctor. Patient care was discussed with my attending physician Dr. Carlos Larsen, PGY-2 Documentation for date of: 01/26/25 Subjective Subjective Interval history: Patient is seen and examined with supervisor dimension warehouse at the bedside Per supervisor dimension warehouse, since last 2 weeks patient oxygen need is increased from 2 L to 4 L in view of low saturations Also reported that patient is not on BiPAP during long hour naps in the day with multiple interruptions of BiPAP during the night Patient is on BiPAP at the time of examination and is able to follow and respond to verbal commands appropriately Labs showed hemoglobin 9.9, chloride 94, bicarb 39.4, A1c 7.9%, magnesium 1.5 Repeat VBG showed pH 7.5, pCO2 50 Will continue BiPAP for now and will wean off BiPAP to nasal cannula once patient mentation remains stable. Exam Vital Signs Temp Pulse Resp BP Pulse Ox O2 Del Method O2 Flow Rate 98.9 F 102 H 24 H 123/62 94 L BiPAP 13 01/26/25 12:00 01/26/25 12:00 01/26/25 12:00 01/26/25 12:00 01/26/25 12:00 01/26/25 08:00 01/26/25 08:00 FiO2 35 01/26/25 10:25 Narrative Exam General: Awake. on Bipap HEENT: Normocephalic, atraumatic, mucous membranes moist. Heart: Regular rate and rhythm, no murmurs. Lungs: Clear to auscultation with no wheezing or crackles. Abdomen: Soft, nondistended, nontender, positive bowel sounds. ?No guarding or rebound tenderness. Neurologic: Alert and oriented x3, no gross neurological deficit, and patient able to move all 4 extremities. Extremities: No edema. Skin: No rash or ecchymoses. Objective Labs 01/27/25 05:55 01/27/25 05:55 Labs: Laboratory Results - last 24 hr 01/25/25 01/25/25 01/25/25 19:57 19:58 20:20 WBC 12.9 H RBC 3.90 L Hgb 11.1 L Hct 36.8 MCV 94 MCH 28.5 MCHC 30.2 L RDW Std Deviation 57.0 H Plt Count 210 D Neut % (Auto) 83 H Lymph % (Auto) 7 L Price % (Auto) 6 Eos % (Auto) 2 Baso % (Auto) 0 Neut # (Auto) 10.7 H Lymph # (Auto) 0.9 L Price # (Auto) 0.8 Eos # (Auto) 0.3 Baso # (Auto) 0.1 Immature Gran # (Auto) 0.25 H Absolute Nucleated RBC 0.05 H Immature Gran % 2 H Nucleated RBC % 0 PT 10.4 INR 0.9 APTT 24.4 Puncture Site Right Radial ABG pH 7.21 L ABG pCO2 102 H* ABG pO2 68 L ABG HCO3 41 H ABG O2 Saturation 92 ABG Base Excess 10 H VBG pH VBG pCO2 VBG pO2 VBG O2 Sat (Radha) VBG Base Excess Oxygen Liter Flow 10 FiO2 21 Sodium 137 Potassium 5.1 Chloride 92 L Carbon Dioxide 39.5 H Anion Gap 6 L BUN 27 H Creatinine 1.2 Estim Creat Clear Calc 37.5 L eGFR 44 L BUN/Creatinine Ratio 23 H Glucose [address] Glu mg/dL Hemoglobin A1c Calculated Osmolality 286 Lactic Acid 1.0 Calcium 9.8 Corrected Calcium 10.0 Phosphorus Magnesium 1.7 Total Bilirubin 0.3 ALT 15 Alkaline Phosphatase 66 Troponin I < 0.020 B-Natriuretic Peptide 213 H Total Protein 6.4 Albumin 3.8 Globulin 2.6 Albumin/Globulin Ratio 1.5 Lipase 18 Procalcitonin 0.18 TSH Ur Collection Type Clean Catch Urine Color Lt-Yellow Urine Clarity Turbid A Urine pH 6.0 Ur Specific [place] 1.014 Urine Protein Trace Urine Glucose (UA) Negative Urine Ketones Negative Urine Blood Negative Urine Nitrite Negative Urine Bilirubin Negative Urine Urobilinogen (Auto) Negative Ur Leukocyte Esterase Positive Urine RBC 35 H Urine WBC 195 H Ur Squamous Epith Cells 5 Urine Bacteria Rare Hyaline Casts < 1 Urine Yeast (Budding) Present A 01/25/25 01/26/25 01/26/25 22:26 00:16 00:28 WBC RBC Hgb Hct MCV MCH MCHC RDW Std Deviation Plt Count Neut % (Auto) Lymph % (Auto) Price % (Auto) Eos % (Auto) Baso % (Auto) Neut # (Auto) Lymph # (Auto) Price # (Auto) Eos # (Auto) Baso # (Auto) Immature Gran # (Auto) Absolute Nucleated RBC Immature Gran % Nucleated RBC % PT INR APTT Puncture Site Left Radial Left Radial ABG pH 7.21 L 7.29 L ABG pCO2 101 H* 83 H* D ABG pO2 88 D 71 L ABG HCO3 41 H 40 H ABG O2 Saturation 97 95 ABG Base Excess 10 H 11 H VBG pH VBG pCO2 VBG pO2 VBG O2 Sat (Radha) VBG Base Excess Oxygen Liter Flow FiO2 50 40 Sodium Potassium Chloride Carbon Dioxide Anion Gap BUN Creatinine Estim Creat Clear Calc eGFR BUN/Creatinine Ratio Glucose Estimated Ave Glu mg/dL 180 H Hemoglobin A1c 7.9 H Calculated Osmolality Lactic Acid Calcium Corrected Calcium Phosphorus Magnesium Total Bilirubin ALT Alkaline Phosphatase Troponin I B-Natriuretic Peptide Total Protein Albumin Globulin Albumin/Globulin Ratio Lipase Procalcitonin TSH Ur Collection Type Urine Color Urine Clarity Urine pH Ur Specific [place] Urine Protein Urine Glucose (UA) Urine Ketones Urine Blood Urine Nitrite Urine Bilirubin Urine Urobilinogen (Auto) Ur Leukocyte Esterase Urine RBC Urine WBC Ur Squamous Epith Cells Urine Bacteria Hyaline Casts Urine Yeast (Budding) 01/26/25 01/26/25 01/26/25 03:29 04:50 12:25 WBC 10.8 RBC 3.43 L Hgb 9.9 L Hct 33.1 L MCV 97 MCH 28.9 MCHC 29.9 L RDW Std Deviation 57.6 H Plt Count 169 D Neut % (Auto) 88 H Lymph % (Auto) 5 L Price % (Auto) 5 Eos % (Auto) 1 Baso % (Auto) 0 Neut # (Auto) 9.4 H Lymph # (Auto) 0.5 L Price # (Auto) 0.6 Eos # (Auto) 0.1 Baso # (Auto) 0.0 Immature Gran # (Auto) 0.12 H Absolute Nucleated RBC 0.03 H Immature Gran % 1 H Nucleated RBC % 0 PT INR APTT Puncture Site Left Radial ABG pH 7.38 ABG pCO2 69 H D ABG pO2 66 L ABG HCO3 40 H ABG O2 Saturation 95 ABG Base Excess 13 H VBG pH 7.50 VBG pCO2 50 VBG pO2 52 VBG O2 Sat (Radha) 92 L VBG Base Excess 15 H Oxygen Liter Flow FiO2 35 Sodium 136 Potassium 4.9 Chloride 94 L Carbon Dioxide 39.4 H Anion Gap 3 L BUN 30 H Creatinine 1.2 Estim Creat Clear Calc 37.9 L eGFR 44 L BUN/Creatinine Ratio 25 H Glucose [address] Glu mg/dL Hemoglobin A1c Calculated Osmolality 286 Lactic Acid Calcium 9.7 Corrected Calcium 10.1 Phosphorus 2.3 L Magnesium 1.5 L Total Bilirubin 0.4 ALT 12 Alkaline Phosphatase 56 Troponin I B-Natriuretic Peptide Total Protein 5.8 Albumin 3.5 Globulin 2.3 Albumin/Globulin Ratio 1.5 Lipase Procalcitonin TSH 2.13 Ur Collection Type Urine Color Urine Clarity Urine pH Ur Specific [place] Urine Protein Urine Glucose (UA) Urine Ketones Urine Blood Urine Nitrite Urine Bilirubin Urine Urobilinogen (Auto) Ur Leukocyte Esterase Urine RBC Urine WBC Ur Squamous Epith Cells Urine Bacteria Hyaline Casts Urine Yeast (Budding) ABG Interpretation ABG results: 01/25/25 01/25/25 01/26/25 19:57 22:26 00:16 ABG pH 7.21 L 7.21 L 7.29 L ABG pCO2 102 H* 101 H* 83 H* D ABG pO2 68 L 88 D 71 L ABG HCO3 41 H 41 H 40 H ABG O2 Saturation 92 97 95 ABG Base Excess 10 H 10 H 11 H VBG pH VBG pCO2 VBG pO2 VBG Base Excess 01/26/25 01/26/25 03:29 12:25 ABG pH 7.38 ABG pCO2 69 H D ABG pO2 66 L ABG HCO3 40 H ABG O2 Saturation 95 ABG Base Excess 13 H VBG pH 7.50 VBG pCO2 50 VBG pO2 52 VBG Base Excess 15 H Quality Measures Quality Measures none Advance care planning discussed with:: patient Assessment & Plan Assessment Current Active Medications: Generic Name Dose Route Start Last Admin Trade Name Freq PRN Reason Stop Dose Admin Acetaminophen 650 mg 01/25/25 23:43 Acetaminophen 325 Mg Tablet PO 02/24/25 23:42 Q6H PRN Fever >99.5 Acetaminophen 1,000 mg 01/25/25 23:43 Acetaminophen 325 Mg Tablet PO 02/24/25 23:42 Q6H PRN PAIN SCALE 1-3 (mild Hydrocodone Bitart/Acetaminophen 1 tab 01/25/25 23:52 Hydrocodone/Apap 10/325 Tab PO 01/30/25 23:51 Q12HR PRN PAIN Dextrose 25 ml 01/25/25 23:50 Dextrose 50%-Water Inj 50 Ml Syringe IV 02/24/25 23:49 Q15MIN PRN BG 50-70 responsive npo pt Dextrose 50 ml 01/25/25 23:50 Dextrose 50%-Water Inj 50 Ml Syringe IV 02/24/25 23:49 Q15MIN PRN BG <50 OR BG <70 & pt unresponsive Furosemide 40 mg 01/25/25 23:45 01/26/25 06:26 Furosemide Inj 10 Mg/Ml 4ml Vial IVP 02/24/25 23:44 Not Given BIDD LISETTE Glucagon 1 mg 01/25/25 23:50 Glucagon Inj 1 Mg Vial IM Q15MIN PRN BG <70, and no IV access Heparin Sodium (Porcine) 5,000 unit 01/26/25 06:00 01/26/25 08:01 Heparin Sod Inj 5000 Unit/Ml Vial SC 02/09/25 05:59 5,000 unit Q8HR [facility] Administration Levofloxacin/Dextrose 750 mg in 150 mls @ 100 mls/hr 01/28/25 09:00 Levaquin Ivpb IV 02/04/25 08:59 Q48H [facility] Protocol Insulin Glargine 10 unit 01/26/25 09:00 01/26/25 09:23 Insulin Glargine (Lantus) 5 Unit/0.05 Ml (Per 5 Units) SC 02/25/25 08:59 Not Given QDAY [facility] Insulin Human Lispro 0 unit 01/26/25 07:30 01/26/25 12:35 Insulin Lispro (Admelog) 1 Unit/0.01 Ml Unit SC 02/25/25 07:29 Not Given AC [facility] Protocol Levothyroxine Sodium 100 mcg 01/26/25 06:00 01/26/25 09:16 Levothyroxine Sodium 100 Mcg Tablet PO 02/25/25 05:59 Not Given ACBR [facility] Metoprolol Succinate 25 mg 01/26/25 09:00 01/26/25 09:16 Metoprolol Succinate Xl 25 Mg Tabcr PO 02/25/25 08:59 Not Given QDAY LIS[facility]TE Ondansetron HCl 4 mg 01/25/25 23:43 Ondansetron Inj 2 Mg/Ml Inj 2 Ml IVP 02/24/25 23:42 Q6H PRN NAUSEA OR VOMITING Protocol Pantoprazole Sodium 40 mg 01/26/25 09:00 01/26/25 09:42 Pantoprazole Inj 40 Mg Vial IVP 02/25/25 08:59 40 mg QDAY LIS[facility]TE Administration Pharmacy Consult 1 each 01/26/25 09:00 Vancomycin Pharmacy To Dose 1 Each Each IV 02/25/25 08:59 QDAY PRN PROTOCOL Plan 89-year-old female with past medical history of 89-year-old female with past medical history of hypothyroidism, recurrent UTIs, chronic respiratory failure, right breast cancer status post lumpectomy, bedbound, chronic back pain, type 2 diabetes, GERD, depression, pulmonary fibrosis ?, HFpEF who was brought to the ED after being found unresponsive at home. #Acute encephalopathy, resolved #Acute on chronic hypoxic and hypercapnic respiratory failure secondary to #?Community-acquired pneumonia #?Pulmonary fibrosis Patient has been having about a week of desaturating to the 40% to 60% at night. ABG was done and showed respiratory acidosis with hypercapnia was placed on BiPAP, subsequent ABG showed no improvement BiPAP settings were adjusted will follow-up subsequent ABG for improvement if not patient is low threshold for intubation. Chest x-ray showed bilateral lung opacities, pneumonia versus pulmonary edema in the differential Follow-up ABG showed improvement in an acid-base status we will continue on BiPAP at this time. Initially patient came with a GCS of 11 on reevaluation after BiPAP settings were adjusted patient's GCS came back to 14, and was able to move all 4 extremities ? BiPAP ? Levaquin ? Vancomycin ? Follow-up blood cultures ? Follow-up urine cultures ? N.p.o. until swallow screen is passed # ?Acute decompensated heart failure exacerbation #HFpEF [65%] Presented with clinical signs such as shortness of breath, bilateral leg swelling, CXR: Bilateral lung opacities, pulmonary edema cannot be excluded BNP: 213 Last echo: December 2024: Normal left ventricular size and function. Approximate ejection fraction is 65%. Trace mitral and trace tricuspid regurgitation. No wall motion abnormalities noted. ? IV Lasix 40 twice daily ? Metoprolol 25 mg daily ? Keep K>4, Mg>2 ? Provide oxygen as required ? Strict I's and O's ? Fluid restriction #Diabetes mellitus type 2 Last A1c: December 2024, 7.1 ? SSI ? Hypoglycemia protocol in place ? Lantus 10 units daily #Hypothyroidism - TSH is within normal limits ? Resumed levothyroxine as taken at home #CODE STATUS Spoke to the caregiver and provided number of nephew who is her sole family member and stated that the patient is DNR but we are allowed to intubate the patient if required. Patient is limited code no chest compressions but intubation is okay decision was witnessed by attending Dr. Callejas and co-resident Dr. Dykes. We will continue to evaluate subsequent ABGs with changes in BiPAP settings. Health Maintenance: Disposition: Telemetry Fluids: None Feeding: N.p.o. till swallow screen Thrombo prophylaxis: Heparin Gastric Ulcer prophylaxis: Pantoprazole CODE STATUS: Limited code, no CPR but agreeable to intubation Patient plan of care was discussed with the attending physician, Dr. Gonzalez and senior resident Dr. Suzie Cronin, PGY1 Attending Provider Attestation/Addendum Niya, Kaylynn Gonzalez, DO, attest that I was physically present for the mackenzie portions of the service and evaluated the patient with the resident and I reviewed and discussed the case with the resident and agree with the resident's findings and plans of care as documented above Patient seen eval this a.m. No acute events overnight. Patient was a little lethargic this afternoon around 1 PM and remains on BiPAP. VBG otherwise appears back at baseline. Patient needs to continue wearing her BiPAP with sleeping. Patient does sleep throughout the day, but does not wear her BiPAP at home. Patient has had frequent admissions recently due to CO2 retention. She is supposedly cut down on her [place] use as well. Patient was reevaluated in the evening around 5 PM during which patient was much more alert. Patient was ANO x 3. Patient complained of hunger and was able to follow commands. Will remove BiPAP while patient is alert and replaced while sleeping.Chest x-ray showed extensive bilateral lung opacity secondary to pneumonia. CT abdomen pelvis on previous admission shows pulmonary artery hypertension and pneumonia again with mild to moderate heart failure. Will continue with empiric antibiotic coverage at this time and follow-up with cultures.
--- NOTE | 2025-01-26 14:27 | PC.SS ---
Addendum entered by DAXA Reese 01/26/25 16:12: Rounding note: patient on BiPAP with plan to wean off BiPAP to nasal cannula. Original Note: Attempted contact with patient's nephew listed on facesheet Jgjodi Coffman to complete initial assessment. Unavailable at this time and voicemail was provided with call back number.
[2025-01-26] MEDS: FUROSEMIDE INJ 10 MG/ML 4ML VIAL 40 MG IVP (18:07)
--- NOTE | 2025-01-26 18:57 | PC.NURSE ---
Discontinued flu vaccine order. Per patient and wound care nurse, patient is allergic to Flu vaccine. patient refused.
[2025-01-26] MEDS: ASCORBIC ACID 250 MG TABLET 500 MG PO (21:16)
[2025-01-26] MEDS: PRAMIPEXOLE 0.25 MG TABLET 1 MG PO (21:16)
[2025-01-26] MEDS: METHENAMINE HIPPURATE 1 GM PO (21:16)
[2025-01-26] MEDS: VENLAFAXINE XR 37.5 MG CAPCR 150 MG PO (21:16)
[2025-01-26] MEDS: ATORVASTATIN CALCIUM 20 MG TABLET PO (21:16)
[2025-01-26] MEDS: INSULIN GLARGINE (Lantus) 5 UNIT/0.05 ML (PER 5 UNITS) 6 UNIT SC (21:18)
[2025-01-26] MEDS: INSULIN LISPRO (AdmeLOG) 1 UNIT/0.01 ML UNIT SC (21:18)
[2025-01-27] VITALS (13 sets, daily range): BP systolic 94–140; BP diastolic 55–79; PULSE 93–115; RESP 12–30; TEMP 36–36.7; O2SAT 93–99; BMI 34.6
[2025-01-27] MEDS: HEPARIN SOD INJ 5000 UNIT/ML VIAL SC ×3 (06:02→21:05)
[2025-01-27] MEDS: FUROSEMIDE INJ 10 MG/ML 4ML VIAL 40 MG IVP (06:02)
[2025-01-27] MEDS: LEVOTHYROXINE SODIUM 100 MCG TABLET PO (06:02)
[2025-01-27 06:26] LABS: Basophils % (Auto) 1 % (0-2.5); Eosinophils # (Auto) 0.4 Thou/mm3 (0.0-0.5); Eosinophils % (Auto) 5 % (0-10); Hematocrit 30.8 % (36.0-46.0); Hemoglobin 9.5 g/dL (12.0-16.0); Immature Granulocytes % (Auto) 2 % (0-0); Immature Granulocytes Auto 0.13 Thou/mm3 (0.00-0.00); Lymphocytes # (Auto) 0.9 Thou/mm3 (1.0-4.8); Lymphocytes % (Auto) 11 % (10-50); Mean Corpuscular HGB Conc 30.8 g/dl (31.0-37.0); Mean Corpuscular Hemoglobin 28.4 pg (25.0-35.0); Mean Corpuscular Volume 92 fL (80-100); Monocytes # (Auto) 0.7 Thou/mm3 (0.0-0.8); Monocytes % (Auto) 9 % (0-12); Neutrophils # (Auto) 6.3 Thou/mm3 (1.8-7.7); Neutrophils % (Auto) 74 % (37-80); Nucleated Red Blood Cell % 0 /100 WBC (0); Platelet Count 146 Thou/mm3 (140-440); RDW Standard Deviation 54.4 fL (36.4-46.3); Red Blood Count 3.34 Miln/mm3 (4.00-5.20); White Blood Count 8.5 Thou/mm3 (3.6-11.0)
[2025-01-27 06:53] LABS: Alanine Aminotransferase 11 U/L (10-49); Albumin, Serum 3.4 gm/dL (3.4-4.8); Albumin/Globulin Ratio 1.5 (1.2-2.2); Alkaline Phosphatase 49 U/L (46-116); Anion Gap 6 (7-16); BUN/Creatinine Ratio 25 Ratio (12-20); Bilirubin,Total 0.3 mg/dL (0.3-1.2); Blood Urea Nitrogen 25 mg/dL (9-23); Calcium 9.3 mg/dL (8.3-10.6); Calcium (Corrected) 9.8 mg/dL (8.5-10.1); Carbon Dioxide 39.9 mMol/L (20.0-31.0); Chloride 92 mMol/L (98-107); Estimated Creatinine Clearance 44.2 mL/min (>60); Globulin 2.2 gm/dL (2.3-3.5); Glucose 111 mg/dL (74-106); Magnesium 2.1 mg/dL (1.6-2.6); Osmolality,Calculated 281 (275-295); Potassium 3.7 mMol/L (3.4-5.1); Sodium 138 mMol/L (136-145); Total Protein 5.6 gm/dL (5.7-8.2); Vancomycin,Random 12.7 mcg/mL; eGFR 54 See Note
[2025-01-27] MEDS: VANCOMYCIN/WATER 1250 MG IVPB 250 ML 120 MG IV (09:41)
[2025-01-27] MEDS: METHENAMINE HIPPURATE 1 GM PO ×2 (09:41→20:56)
[2025-01-27] MEDS: ASPIRIN EC 81 MG TABEC PO (09:42)
[2025-01-27] MEDS: METOPROLOL SUCCINATE XL 25 MG TABCR PO (09:43)
[2025-01-27] MEDS: ASCORBIC ACID 250 MG TABLET 500 MG PO ×2 (09:43→20:56)
[2025-01-27] MEDS: PANTOPRAZOLE INJ 40 MG VIAL IVP (09:44)
--- NOTE | 2025-01-27 09:56 | XR_ITS ---
Examination: AP chest single view Technique one AP portable upright chest single view Date and time: January 27, 2025 1009 hours Comparison January 25, 2025 INDICATIONS: Hypoxia FINDINGS: Extensive bilateral interstitial lung disease Mild prominence left ventricle Central vascular engorgement Prominent osteopenia IMPRESSION: Mild heart failure Superimposed bilateral pneumonia
[2025-01-27] MEDS: INSULIN LISPRO (AdmeLOG) 1 UNIT/0.01 ML UNIT SC ×3 (11:58→20:59)
[2025-01-27] MEDS: POLYETHYLENE GLYCOL 17 GM PACKET PO (13:25)
[2025-01-27] MEDS: HYDROcodone/APAP 10/325 TAB PO (13:53)
--- NOTE | 2025-01-27 14:24 | ESPR_ITS ---
<Statement entered by Benjamin Larsen MD - 01/27/25 16:32> Patient doing better today compared to yesterday. Care provider at bedside was updated. Airplane Engineer Dr. Martin was consulted who reviewed imaging and patient's chart. 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 Anticipating d/c within 24 hrs if stable. I discussed with and supervised the human resources intern physician involved in the care of this patient. Patient assessment and plan was discussed with entire medicine team, including my attending. I agree with the assessment and plan as documented by human resources intern doctor. Patient care was discussed with my attending physician Dr. Carlos Larsen, PGY-2 Documentation for date of: 01/27/25 Subjective Subjective Interval history: Patient is seen and examined at bedside No acute overnight events and patient is on BiPAP for entire night . Reported that she is doing well and denies any other complaints Vitals are stable and patient is on oxygen 3 L which is her normal baseline labs showed Hb 9.5, bicarb 13.9 Repeat chest x-ray showed improvement in infiltrates. Consulted Dr. Martin and he recommended to continue current management, adjust her BiPAP settings at home if needed Exam Vital Signs Temp Pulse Resp BP Pulse Ox O2 Del Method O2 Flow Rate 97.3 F 104 H 22 H 138/79 H 97 Nasal Cannula 3 01/27/25 12:00 01/27/25 12:31 01/27/25 12:31 01/27/25 12:00 01/27/25 12:31 01/27/25 12:00 01/27/25 12:31 FiO2 35 01/27/25 08:00 Narrative Exam General: Awake. HEENT: Normocephalic, atraumatic, mucous membranes moist. Heart: Regular rate and rhythm, no murmurs. Lungs: Clear to auscultation with no wheezing or crackles. Abdomen: Soft, nondistended, nontender, positive bowel sounds. ?No guarding or rebound tenderness. Neurologic: Alert and oriented x3, no gross neurological deficit, and patient able to move all 4 extremities. Extremities: No edema. Skin: No rash or ecchymoses. Objective Labs 01/28/25 04:35 01/28/25 04:35 Labs: Laboratory Results - last 24 hr 01/27/25 05:55 WBC 8.5 RBC 3.34 L Hgb 9.5 L Hct 30.8 L MCV 92 MCH 28.4 MCHC 30.8 L RDW Std Deviation 54.4 H Plt Count 146 Neut % (Auto) 74 Lymph % (Auto) 11 [place] % (Auto) 9 Eos % (Auto) 5 Baso % (Auto) 1 Neut # (Auto) 6.3 Lymph # (Auto) 0.9 L [place] # (Auto) 0.7 Eos # (Auto) 0.4 Baso # (Auto) 0.0 Immature Gran # (Auto) 0.13 H Absolute Nucleated RBC 0.00 Immature Gran % 2 H Nucleated RBC % 0 Sodium 138 Potassium 3.7 D Chloride 92 L Carbon Dioxide 39.9 H Anion Gap 6 L BUN 25 H Creatinine 1.0 Estim Creat Clear Calc 44.2 L eGFR 54 L BUN/Creatinine Ratio 25 H Glucose 111 H D Calculated Osmolality 281 Calcium 9.3 Corrected Calcium 9.8 Phosphorus 2.0 L Magnesium 2.1 Total Bilirubin 0.3 ALT 11 Alkaline Phosphatase 49 Total Protein 5.6 L Albumin 3.4 Globulin 2.2 L Albumin/Globulin Ratio 1.5 Random Vancomycin 12.7 ABG Interpretation ABG results: 01/25/25 01/25/25 01/26/25 19:57 22:26 00:16 ABG pH 7.21 L 7.21 L 7.29 L ABG pCO2 102 H* 101 H* 83 H* D ABG pO2 68 L 88 D 71 L ABG HCO3 41 H 41 H 40 H ABG O2 Saturation 92 97 95 ABG Base Excess 10 H 10 H 11 H VBG pH VBG pCO2 VBG pO2 VBG Base Excess 01/26/25 01/26/25 03:29 12:25 ABG pH 7.38 ABG pCO2 69 H D ABG pO2 66 L ABG HCO3 40 H ABG O2 Saturation 95 ABG Base Excess 13 H VBG pH 7.50 VBG pCO2 50 VBG pO2 52 VBG Base Excess 15 H Quality Measures Quality Measures none Advance care planning discussed with:: patient Assessment & Plan Assessment Current Active Medications: Generic Name Dose Route Start Last Admin Trade Name Freq PRN Reason Stop Dose Admin Acetaminophen 650 mg 01/25/25 23:43 Acetaminophen 325 Mg Tablet PO 02/24/25 23:42 Q6H PRN Fever >99.5 Acetaminophen 1,000 mg 01/25/25 23:43 Acetaminophen 325 Mg Tablet PO 02/24/25 23:42 Q6H PRN PAIN SCALE 1-3 (mild Hydrocodone Bitart/Acetaminophen 1 tab 01/25/25 23:52 01/27/25 13:53 Hydrocodone/Apap 10/325 Tab PO 01/30/25 23:51 1 tab Q12HR PRN Administration PAIN Protocol Ascorbic Acid 500 mg 01/26/25 21:00 01/27/25 09:43 Ascorbic Acid 250 Mg Tablet PO 02/25/25 20:59 500 mg BID LISETTE Administration Aspirin 81 mg 01/27/25 09:00 01/27/25 09:42 Aspirin Ec 81 Mg Tabec PO 02/26/25 08:59 81 mg QDAY LISETTE Administration Atorvastatin Calcium 20 mg 01/26/25 21:00 01/26/25 21:16 Atorvastatin Calcium 20 Mg Tablet PO 02/25/25 20:59 20 mg HS LISETTE Administration Protocol Methenamine 0 ea 01/26/25 21:00 01/27/25 09:41 Hippurate 1 Gram PO 02/25/25 20:59 1 tablet Tablet BID LISETTE Administration Dextrose 25 ml 01/25/25 23:50 Dextrose 50%-Water Inj 50 Ml Syringe IV 02/24/25 23:49 Q15MIN PRN BG 50-70 responsive npo pt Dextrose 50 ml 01/25/25 23:50 Dextrose 50%-Water Inj 50 Ml Syringe IV 02/24/25 23:49 Q15MIN PRN BG <50 OR BG <70 & pt unresponsive Glucagon 1 mg 01/25/25 23:50 Glucagon Inj 1 Mg Vial IM Q15MIN PRN BG <70, and no IV access Heparin Sodium (Porcine) 5,000 unit 01/26/25 06:00 01/27/25 13:54 Heparin Sod Inj 5000 Unit/Ml Vial SC 02/09/25 05:59 5,000 unit Q8HR LISETTE Administration Levofloxacin/Dextrose 750 mg in 150 mls @ 100 mls/hr 01/28/25 09:00 Levaquin Ivpb IV 02/04/25 08:59 Q48H LISETTE Protocol Insulin Glargine 6 unit 01/26/25 21:00 01/26/25 21:18 Insulin Glargine (Lantus) 5 Unit/0.05 Ml (Per 5 Units) SC 02/25/25 20:59 6 unit HS LISETTE Administration Insulin Human Lispro 0 unit 01/26/25 21:00 01/27/25 11:58 Insulin Lispro (Admelog) 1 Unit/0.01 Ml Unit SC 02/25/25 20:59 2 unit ACHS LISETTE Administration Protocol Levothyroxine Sodium 100 mcg 01/26/25 06:00 01/27/25 06:02 Levothyroxine Sodium 100 Mcg Tablet PO 02/25/25 05:59 100 mcg ACBR LISETTE Administration Metoprolol Succinate 25 mg 01/26/25 09:00 01/27/25 09:43 Metoprolol Succinate Xl 25 Mg Tabcr PO 02/25/25 08:59 25 mg QDAY LISETTE Administration Ondansetron HCl 4 mg 01/25/25 23:43 Ondansetron Inj 2 Mg/Ml Inj 2 Ml IVP 02/24/25 23:42 Q6H PRN NAUSEA OR VOMITING Protocol Pantoprazole Sodium 40 mg 01/26/25 09:00 01/27/25 09:44 Pantoprazole Inj 40 Mg Vial IVP 02/25/25 08:59 40 mg QDAY LISETTE Administration Pharmacy Consult 1 each 01/26/25 09:00 Vancomycin Pharmacy To Dose 1 Each Each IV 02/25/25 08:59 QDAY PRN PROTOCOL Pramipexole Dihydrochloride 1 mg 01/26/25 21:00 01/26/25 21:16 Pramipexole 0.25 Mg Tablet PO 02/25/25 20:59 1 mg HS LISETTE Administration Sennosides 1 tab 01/27/25 21:00 Senna/Docusate Sod 1 Tab Tablet PO 02/26/25 20:59 BID LISETTE Protocol Venlafaxine HCl 150 mg 01/26/25 21:00 01/26/25 21:16 Venlafaxine Xr 37.5 Mg Capcr PO 02/25/25 20:59 150 mg HS LISETTE Administration Plan 89-year-old female with past medical history of 89-year-old female with past medical history of hypothyroidism, recurrent UTIs, chronic respiratory failure, right breast cancer status post lumpectomy, bedbound, chronic back pain, type 2 diabetes, GERD, depression, pulmonary fibrosis ?, HFpEF who was brought to the ED after being found unresponsive at home. #Acute encephalopathy, resolved #Acute on chronic hypoxic and hypercapnic respiratory failure secondary to #?Community-acquired pneumonia #Chronic lung disease, likely suspected ILD #Suspected CUONG in the setting of obesity Patient has been having about a week of desaturating to the 40% to 60% at night. ABG was done and showed respiratory acidosis with hypercapnia was placed on BiPAP, subsequent ABG showed no improvement BiPAP settings were adjusted will follow-up subsequent ABG for improvement if not patient is low threshold for intubation. Chest x-ray showed bilateral lung opacities, pneumonia versus pulmonary edema in the differential Follow-up ABG showed improvement in an acid-base status we will continue on BiPAP at this time. Initially patient came with a GCS of 11 on reevaluation after BiPAP settings were adjusted patient's GCS came back to 14, and was able to move all 4 extremities ? HS BiPAP ? Levaquin (01/26 - # ?Acute decompensated heart failure exacerbation #HFpEF [65%] Presented with clinical signs such as shortness of breath, bilateral leg swelling, CXR: Bilateral lung opacities, pulmonary edema cannot be excluded BNP: 213 Last echo: December 2024: Normal left ventricular size and function. Approximate ejection fraction is 65%. Trace mitral and trace tricuspid regurgitation. No wall motion abnormalities noted. ? Metoprolol 25 mg daily ? Keep K>4, Mg>2 ? Provide oxygen as required ? Strict I's and O's ? Fluid restriction #Diabetes mellitus type 2 Last A1c: December 2024, 7.1 ? SSI ? Hypoglycemia protocol in place ? Lantus 10 units daily #Hypothyroidism - TSH is within normal limits ? Resumed levothyroxine as taken at home #CODE STATUS Spoke to the caregiver and provided number of nephew who is her sole family member and stated that the patient is DNR but we are allowed to intubate the patient if required. Patient is limited code no chest compressions but intubation is okay decision was witnessed by attending Dr. Callejas and co-resident Dr. Dykes. We will continue to evaluate subsequent ABGs with changes in BiPAP settings. Health Maintenance: Disposition: Telemetry Fluids: None Feeding: Carb consistent Thrombo prophylaxis: Heparin Gastric Ulcer prophylaxis: Pantoprazole CODE STATUS: Limited code, no CPR but agreeable to intubation Patient plan of care was discussed with the attending physician, Dr. Gonzalez and senior resident Dr. Suzie Cronin, PGY1 Attending Provider Attestation/Addendum I, Kaylynn Gonzalez DO, attest that I was physically present for the mackenzie portions of the service and evaluated the patient with the resident and I reviewed and discussed the case with the resident and agree with the resident's findings and plans of care as documented above Patient seen and evaluated this AM. Patient is back at baseline. Dumper Operator at bedside is frustrated that the patient has been having frequent readmissions for the hypercaneic respiratory failure, although she does not comply with bipap during her naps throughout the day. Patient does try to wear it for 8h at night. Dumper Operator states that nephew and POA wish for patient to see a corner block cutter. Pulmonology in house reviewed CT and recommends treating pneumonia which has exacerbated ILD. Continue with current management at this time.
--- NOTE | 2025-01-27 14:43 | PC.SS ---
PRICE ACCURACY SUPERVISOR conducted bedside contact with the patient conduct initial assessment and to discuss discharge planning.? At bedside with patient was caregiver, Albina.? Information obtained from caregiver.? Patient resides at home alone.? Patient possesses 24 hour care giving services.? Patient is bed bound.? Patient utilizes home oxygen, 2L.? Patient in possession of BI-PAP for nocturnal use.? Patient requires assistance with the completion of ADL?s.? Patient?s surrogate medical decision maker is nephew, Jg Coffman .? Patient?s PCP is Dr. William.? Patient does not participate with dialysis.? Discharge plan is for the patient to return home.? Patient possesses hospital bed and sergio lyft at home.? Patient is aligned with [facility] health.? Patient would like to resume services with [facility] upon discharge.? Patient does not possess coverage for [email or web address] transportation.? academic services professional to assist with arranging transportation on behalf of the patient. ?No further discharge needs identified.? No further intervention required at this time, clinical social work therapist will be available to address any further concerns.? Next of Kin: Jg Coffman D/C Plan: Home
--- NOTE | 2025-01-27 14:57 | PC.SS ---
Rounding Note: Patient has returned to baseline. Plan is to d/c home tomorrow with [facility].
--- NOTE | 2025-01-27 16:18 | PC.CM ---
Patient is opened to [facility]. If patient goes home she will need home health orders placed.
--- NOTE | 2025-01-27 20:41 | PC.NURSE ---
PT MOVED TO RM 277 ON BED. PT TOLERATED WELL.
[2025-01-27] MEDS: PRAMIPEXOLE 0.25 MG TABLET 1 MG PO (20:56)
[2025-01-27] MEDS: VENLAFAXINE XR 37.5 MG CAPCR 150 MG PO (20:56)
[2025-01-27] MEDS: ATORVASTATIN CALCIUM 20 MG TABLET PO (20:56)
[2025-01-27] MEDS: INSULIN GLARGINE (Lantus) 5 UNIT/0.05 ML (PER 5 UNITS) 6 UNIT SC (20:58)
[2025-01-28] VITALS (10 sets, daily range): BP systolic 102–124; BP diastolic 55–71; PULSE 84–110; RESP 12–28; TEMP 36–36.5; O2SAT 92–99; BMI 34.9
[2025-01-28 05:49] LABS: Basophils % (Auto) 0 % (0-2.5); Eosinophils # (Auto) 0.4 Thou/mm3 (0.0-0.5); Eosinophils % (Auto) 4 % (0-10); Hematocrit 30.8 % (36.0-46.0); Hemoglobin 9.4 g/dL (12.0-16.0); Immature Granulocytes % (Auto) 1 % (0-0); Immature Granulocytes Auto 0.12 Thou/mm3 (0.00-0.00); Lymphocytes # (Auto) 0.8 Thou/mm3 (1.0-4.8); Lymphocytes % (Auto) 8 % (10-50); Mean Corpuscular HGB Conc 30.5 g/dl (31.0-37.0); Mean Corpuscular Hemoglobin 28.7 pg (25.0-35.0); Mean Corpuscular Volume 94 fL (80-100); Monocytes # (Auto) 0.7 Thou/mm3 (0.0-0.8); Monocytes % (Auto) 7 % (0-12); Neutrophils % (Auto) 80 % (37-80); Nucleated Red Blood Cell # 0.02 Thou/mm3 (0.00-0.00); Nucleated Red Blood Cell % 0 /100 WBC (0); Platelet Count 171 Thou/mm3 (140-440); RDW Standard Deviation 55.1 fL (36.4-46.3); Red Blood Count 3.27 Miln/mm3 (4.00-5.20)
[2025-01-28] MEDS: HEPARIN SOD INJ 5000 UNIT/ML VIAL SC ×3 (05:54→21:06)
[2025-01-28] MEDS: LEVOTHYROXINE SODIUM 100 MCG TABLET PO (05:54)
[2025-01-28] MEDS: HYDROcodone/APAP 10/325 TAB PO (05:54)
[2025-01-28 06:49] LABS: Alanine Aminotransferase 10 U/L (10-49); Albumin, Serum 3.3 gm/dL (3.4-4.8); Albumin/Globulin Ratio 1.4 (1.2-2.2); Alkaline Phosphatase 58 U/L (46-116); Anion Gap 7 (7-16); Aspartate Amino Transferase 13 U/L (0-34); BUN/Creatinine Ratio 19 Ratio (12-20); Bilirubin,Total 0.3 mg/dL (0.3-1.2); Blood Urea Nitrogen 19 mg/dL (9-23); Calcium 9.2 mg/dL (8.3-10.6); Calcium (Corrected) 9.8 mg/dL (8.5-10.1); Carbon Dioxide > 40.0 mMol/L (20.0-31.0); Chloride 88 mMol/L (98-107); Estimated Creatinine Clearance 43.5 mL/min (>60); Globulin 2.3 gm/dL (2.3-3.5); Glucose 171 mg/dL (74-106); Magnesium 1.8 mg/dL (1.6-2.6); Osmolality,Calculated 276 (275-295); Phosphorous 1.6 mg/dL (2.4-5.1); Potassium 3.9 mMol/L (3.4-5.1); Sodium 135 mMol/L (136-145); Total Protein 5.6 gm/dL (5.7-8.2); eGFR 54 See Note
[2025-01-28] MEDS: INSULIN LISPRO (AdmeLOG) 1 UNIT/0.01 ML UNIT SC ×4 (07:23→21:07)
[2025-01-28] MEDS: METHENAMINE HIPPURATE 1 GM PO ×2 (08:49→21:04)
[2025-01-28] MEDS: LEVOFLOXACIN/D5W 750MG IVPB 750 MG/150 ML BAG 100 MG IV (08:50)
[2025-01-28] MEDS: PANTOPRAZOLE INJ 40 MG VIAL IVP (08:51)
[2025-01-28] MEDS: METOPROLOL SUCCINATE XL 25 MG TABCR PO (08:52)
[2025-01-28] MEDS: ASCORBIC ACID 250 MG TABLET 500 MG PO ×2 (08:52→21:06)
[2025-01-28] MEDS: ASPIRIN EC 81 MG TABEC PO (08:52)
[2025-01-28] MEDS: SENNA/DOCUSATE SOD 1 TAB TABLET PO ×2 (08:53→21:06)
--- NOTE | 2025-01-28 10:22 | PC.NURSE ---
Patient saturating at 84% on room air.
[2025-01-28] MEDS: NAPH,KPH MBDB 1 PACKET (1.5 GM) PO (10:53)
[2025-01-28 10:58] LABS: Base Excess, Venous 15 (-3-3); O2 Saturation, Venous 74 % (96-97); PCO2, Venous 77 mmHg (36-56); PO2, Venous 39 mmHg (15-58); pH, Venous 7.35 (7.33-7.66)
--- NOTE | 2025-01-28 11:13 | PC.SS ---
Addendum entered by DAXA Reese 01/28/25 16:10: Rounding note: staying for monitoring. Anticipate d/c home tomorrow with Home health services. [facility]cello preferred. Addendum entered by DAXA Reese 01/28/25 12:20: Updated bedside Yamilka. Addendum entered by DAXA Reese 01/28/25 11:22: SS follow up: spoke with Yuridia at [facility], she informs the patient has home 02 on 2L and BIPAP machine that is not due for maintenance. Yuridia informs [facility] staff recently went out to patient's home on 01/20/25 and there was no indication of any DME needing to be replaced or serviced. Original Note: SS follow up: met with patient and caregiver at bed side as they had questions regarding [facility] DME equipment. Patient's caregiver informs they have had some issues with home BIPAP machine and would like [facility] to be contacted to advise if able to replace the DME. Caregiver is also requesting diabetic education for the patient and bedside Yamilka was updated on that request.
--- NOTE | 2025-01-28 14:00 | CHAP ---
Patient visited by he Spiritual Care Volunteer who prayed for them. (Volunteer in hospital from 13:00-c14:30)
--- NOTE | 2025-01-28 16:18 | ESPR_ITS ---
<Statement entered by Benjamin Larsen MD - 01/29/25 14:16> I discussed with and supervised the promotions intern physician involved in the care of this patient. Patient assessment and plan was discussed with entire medicine team, including my attending. I agree with the assessment and plan as documented by promotions intern doctor. Patient care was discussed with my attending physician Dr. Chelsey Larsen, PGY-2 Documentation for date of: 01/28/25 Subjective Subjective Interval history: Patient is seen and examined at bedside No acute overnight events. Reported that she is doing good Vitals are stable and patient is saturating around 92% on 2 L oxygen which is her baseline Labs showed hemoglobin 9.4, sodium 135, bicarb >40 VBG showed CO2 77. Repeat ABG is ordered after 3 hours. If CO2 is uptrending, will start BiPAP Will continue bedtime BiPAP and planning to discharge tomorrow Patient's clinical condition and goals of care are discussed with her nephew on phone and education sales consultant at the bedside, answered all of their questions to satisfaction Exam Vital Signs Temp Pulse Resp BP Pulse Ox O2 Del Method O2 Flow Rate 96.9 F 98 20 105/55 L 93 L Nasal Cannula 3 01/28/25 12:00 01/28/25 12:00 01/28/25 12:00 01/28/25 12:00 01/28/25 12:00 01/28/25 12:00 01/28/25 12:00 FiO2 35 01/28/25 04:00 Narrative Exam General: Awake. HEENT: Normocephalic, atraumatic, mucous membranes moist. Heart: Regular rate and rhythm, no murmurs. Lungs: Bilateral fine inspiratory crackles are heard 6 6 Abdomen: Soft, nondistended, nontender, positive bowel sounds. ?No guarding or rebound tenderness. Neurologic: Alert and oriented x3, no gross neurological deficit, and patient able to move all 4 extremities. Extremities: No edema. Skin: No rash or ecchymoses. Objective Labs 01/29/25 05:13 01/29/25 05:13 Labs: Laboratory Results - last 24 hr 01/28/25 01/28/25 04:35 10:40 WBC 10.0 RBC 3.27 L Hgb 9.4 L Hct 30.8 L MCV 94 MCH 28.7 MCHC 30.5 L RDW Std Deviation 55.1 H Plt Count 171 Neut % (Auto) 80 Lymph % (Auto) 8 L [place] % (Auto) 7 Eos % (Auto) 4 Baso % (Auto) 0 Neut # (Auto) 8.0 H Lymph # (Auto) 0.8 L [place] # (Auto) 0.7 Eos # (Auto) 0.4 Baso # (Auto) 0.0 Immature Gran # (Auto) 0.12 H Absolute Nucleated RBC 0.02 H Immature Gran % 1 H Nucleated RBC % 0 VBG pH 7.35 VBG pCO2 77 H D VBG pO2 39 VBG O2 Sat (Radha) 74 L VBG Base Excess 15 H Sodium 135 L Potassium 3.9 Chloride 88 L Carbon Dioxide > 40.0 H Anion Gap 7 BUN 19 Creatinine 1.0 Estim Creat Clear Calc 43.5 L eGFR 54 L BUN/Creatinine Ratio 19 Glucose 171 H D Calculated Osmolality 276 Calcium 9.2 Corrected Calcium 9.8 Phosphorus 1.6 L Magnesium 1.8 Total Bilirubin 0.3 AST 13 ALT 10 Alkaline Phosphatase 58 Total Protein 5.6 L Albumin 3.3 L Globulin 2.3 Albumin/Globulin Ratio 1.4 ABG Interpretation ABG results: 01/25/25 01/25/25 01/26/25 19:57 22:26 00:16 ABG pH 7.21 L 7.21 L 7.29 L ABG pCO2 102 H* 101 H* 83 H* D ABG pO2 68 L 88 D 71 L ABG HCO3 41 H 41 H 40 H ABG O2 Saturation 92 97 95 ABG Base Excess 10 H 10 H 11 H VBG pH VBG pCO2 VBG pO2 VBG Base Excess 01/26/25 01/26/25 01/28/25 03:29 12:25 10:40 ABG pH 7.38 ABG pCO2 69 H D ABG pO2 66 L ABG HCO3 40 H ABG O2 Saturation 95 ABG Base Excess 13 H VBG pH 7.50 7.35 VBG pCO2 50 77 H D VBG pO2 52 39 VBG Base Excess 15 H 15 H Quality Measures Quality Measures none Advance care planning discussed with:: patient and significant other Assessment & Plan Assessment Current Active Medications: Generic Name Dose Route Start Last Admin Trade Name Freq PRN Reason Stop Dose Admin Acetaminophen 650 mg 01/25/25 23:43 Acetaminophen 325 Mg Tablet PO 02/24/25 23:42 Q6H PRN Fever >99.5 Acetaminophen 1,000 mg 01/27/25 15:03 Acetaminophen 500 Mg Tablet PO 02/24/25 23:42 Q6H PRN PAIN SCALE 1-3 (mild Hydrocodone Bitart/Acetaminophen 1 tab 01/25/25 23:52 01/28/25 05:54 Hydrocodone/Apap 10/325 Tab PO 01/30/25 23:51 1 tab Q12HR PRN Administration PAIN Protocol Ascorbic Acid 500 mg 01/26/25 21:00 01/28/25 08:52 Ascorbic Acid 250 Mg Tablet PO 02/25/25 20:59 500 mg BID LISETTE Administration Aspirin 81 mg 01/27/25 09:00 01/28/25 08:52 Aspirin Ec 81 Mg Tabec PO 02/26/25 08:59 81 mg QDAY LISETTE Administration Atorvastatin Calcium 20 mg 01/26/25 21:00 01/27/25 20:56 Atorvastatin Calcium 20 Mg Tablet PO 02/25/25 20:59 20 mg HS LISETTE Administration Protocol Methenamine 0 ea 01/26/25 21:00 01/28/25 08:49 Hippurate 1 Gram PO 02/25/25 20:59 1 tablet Tablet BID LISETTE Administration Dextrose 25 ml 01/25/25 23:50 Dextrose 50%-Water Inj 50 Ml Syringe IV 02/24/25 23:49 Q15MIN PRN BG 50-70 responsive npo pt Dextrose 50 ml 01/25/25 23:50 Dextrose 50%-Water Inj 50 Ml Syringe IV 02/24/25 23:49 Q15MIN PRN BG <50 OR BG <70 & pt unresponsive Glucagon 1 mg 01/25/25 23:50 Glucagon Inj 1 Mg Vial IM Q15MIN PRN BG <70, and no IV access Heparin Sodium (Porcine) 5,000 unit 01/26/25 06:00 01/28/25 13:34 Heparin Sod Inj 5000 Unit/Ml Vial SC 02/09/25 05:59 5,000 unit Q8HR LISETTE Administration Levofloxacin/Dextrose 750 mg in 150 mls @ 100 mls/hr 01/28/25 09:00 01/28/25 08:50 Levaquin Ivpb IV 02/04/25 08:59 100 mls/hr Q48H LISETTE Administration Protocol Insulin Glargine 8 unit 01/28/25 21:00 Insulin Glargine (Lantus) 5 Unit/0.05 Ml (Per 5 Units) SC 02/27/25 20:59 HS LISETTE Insulin Human Lispro 0 unit 01/26/25 21:00 01/28/25 11:42 Insulin Lispro (Admelog) 1 Unit/0.01 Ml Unit SC 02/25/25 20:59 2 unit ACHS LISETTE Administration Protocol Levothyroxine Sodium 100 mcg 01/26/25 06:00 01/28/25 05:54 Levothyroxine Sodium 100 Mcg Tablet PO 02/25/25 05:59 100 mcg ACBR LISETTE Administration Metoprolol Succinate 25 mg 01/26/25 09:00 01/28/25 08:52 Metoprolol Succinate Xl 25 Mg Tabcr PO 02/25/25 08:59 25 mg QDAY LISETTE Administration Ondansetron HCl 4 mg 01/25/25 23:43 Ondansetron Inj 2 Mg/Ml Inj 2 Ml IVP 02/24/25 23:42 Q6H PRN NAUSEA OR VOMITING Protocol Pantoprazole Sodium 40 mg 01/29/25 09:00 Pantoprazole 40 Mg Tablet PO 02/28/25 08:59 QDAY LISETTE Pramipexole Dihydrochloride 1 mg 01/26/25 21:00 01/27/25 20:56 Pramipexole 0.25 Mg Tablet PO 02/25/25 20:59 1 mg HS LISETTE Administration Sennosides 1 tab 01/27/25 21:00 01/28/25 08:53 Senna/Docusate Sod 1 Tab Tablet PO 02/26/25 20:59 1 tab BID LISETTE Administration Protocol Venlafaxine HCl 150 mg 01/26/25 21:00 01/27/25 20:56 Venlafaxine Xr 37.5 Mg Capcr PO 02/25/25 20:59 150 mg HS LISETTE Administration Plan 89-year-old female with past medical history of 89-year-old female with past medical history of hypothyroidism, recurrent UTIs, chronic respiratory failure, right breast cancer status post lumpectomy, bedbound, chronic back pain, type 2 diabetes, GERD, depression, pulmonary fibrosis ?, HFpEF who was brought to the ED after being found unresponsive at home. #Acute encephalopathy, resolved #Acute on chronic hypoxic and hypercapnic respiratory failure secondary to #?Community-acquired pneumonia #Chronic lung disease, likely suspected ILD #Suspected CUONG in the setting of obesity Patient has been having about a week of desaturating to the 40% to 60% at night. ABG was done and showed respiratory acidosis with hypercapnia was placed on BiPAP, subsequent ABG showed no improvement BiPAP settings were adjusted will follow-up subsequent ABG for improvement if not patient is low threshold for intubation. Chest x-ray showed bilateral lung opacities, pneumonia versus pulmonary edema in the differential Follow-up ABG showed improvement in an acid-base status we will continue on BiPAP at this time. Initially patient came with a GCS of 11 on reevaluation after BiPAP settings were adjusted patient's GCS came back to 14, and was able to move all 4 extremities ? HS BiPAP ? Levoneliauin (01/26 - # ?Acute decompensated heart failure exacerbation #HFpEF [65%] Presented with clinical signs such as shortness of breath, bilateral leg swelling, CXR: Bilateral lung opacities, pulmonary edema cannot be excluded BNP: 213 Last echo: December 2024: Normal left ventricular size and function. Approximate ejection fraction is 65%. Trace mitral and trace tricuspid regurgitation. No wall motion abnormalities noted. ? Metoprolol 25 mg daily ? Keep K>4, Mg>2 ? Provide oxygen as required ? Strict I's and O's ? Fluid restriction #Diabetes mellitus type 2 Last A1c: December 2024, 7.1 ? SSI ? Hypoglycemia protocol in place ? Lantus 10 units daily #Hypothyroidism - TSH is within normal limits ? Resumed levothyroxine as taken at home #CODE STATUS Spoke to the caregiver and provided number of nephew who is her sole family member and stated that the patient is DNR but we are allowed to intubate the patient if required. Patient is limited code no chest compressions but intubation is okay decision was witnessed by attending Dr. Callejas and co-resident Dr. Dykes. We will continue to evaluate subsequent ABGs with changes in BiPAP settings. Health Maintenance: Disposition: Telemetry Fluids: None Feeding: Carb consistent Thrombo prophylaxis: Heparin Gastric Ulcer prophylaxis: Pantoprazole CODE STATUS: Limited code, no CPR but agreeable to intubation Patient plan of care was discussed with the attending physician, Dr. Barbosa and senior resident Dr. Suzie Cronin, PGY1 Attending Provider Attestation/Addendum I attest that I was physically present for the evaluation, physical examination, lab and imaging review of the patient with the residents. I discussed the case with the residents and agree with the findings and plans of care as documented above. Patient appears comfortable and states he is feeling well at bedside. VBG this afternoon showed PCO2 of 77. We will continue BiPAP and monitor closely for CO2 level. If CO2 improves tomorrow, we will plan for discharge Roosevelt Barbosa MD
[2025-01-28] MEDS: ACETAzolaMIDE 250 MG TABLET PO (17:16)
[2025-01-28] MEDS: FUROSEMIDE INJ 10 MG/ML 4ML VIAL 40 MG IVP (17:17)
[2025-01-28 17:32] LABS: Base Excess, Venous 14 (-3-3); O2 Saturation, Venous 99 % (96-97); PCO2, Venous 54 mmHg (36-56); PO2, Venous 83 mmHg (15-58); pH, Venous 7.47 (7.33-7.66)
[2025-01-28] MEDS: VENLAFAXINE XR 37.5 MG CAPCR 150 MG PO (21:05)
[2025-01-28] MEDS: PRAMIPEXOLE 0.25 MG TABLET 1 MG PO (21:05)
[2025-01-28] MEDS: ATORVASTATIN CALCIUM 20 MG TABLET PO (21:06)
[2025-01-28] MEDS: INSULIN GLARGINE (Lantus) 5 UNIT/0.05 ML (PER 5 UNITS) 10 UNIT SC (21:06)
[2025-01-29] VITALS (9 sets, daily range): BP systolic 99–125; BP diastolic 52–65; PULSE 86–106; RESP 12–32; TEMP 36.1–36.2; O2SAT 94–99; BMI 35.3
[2025-01-29] MEDS: HEPARIN SOD INJ 5000 UNIT/ML VIAL SC ×2 (05:21→14:26)
[2025-01-29] MEDS: LEVOTHYROXINE SODIUM 100 MCG TABLET PO (05:21)
[2025-01-29 06:17] LABS: Basophils % (Auto) 1 % (0-2.5); Eosinophils # (Auto) 0.6 Thou/mm3 (0.0-0.5); Eosinophils % (Auto) 7 % (0-10); Hematocrit 33.3 % (36.0-46.0); Hemoglobin 10.1 g/dL (12.0-16.0); Immature Granulocytes % (Auto) 1 % (0-0); Lymphocytes % (Auto) 11 % (10-50); Mean Corpuscular HGB Conc 30.3 g/dl (31.0-37.0); Mean Corpuscular Hemoglobin 28.8 pg (25.0-35.0); Mean Corpuscular Volume 95 fL (80-100); Monocytes # (Auto) 0.7 Thou/mm3 (0.0-0.8); Monocytes % (Auto) 8 % (0-12); Neutrophils % (Auto) 72 % (37-80); Nucleated Red Blood Cell % 0 /100 WBC (0); Platelet Count 231 Thou/mm3 (140-440); RDW Standard Deviation 56.1 fL (36.4-46.3); Red Blood Count 3.51 Miln/mm3 (4.00-5.20); White Blood Count 8.3 Thou/mm3 (3.6-11.0)
[2025-01-29 06:40] LABS: Alanine Aminotransferase 12 U/L (10-49); Albumin, Serum 3.6 gm/dL (3.4-4.8); Albumin/Globulin Ratio 1.5 (1.2-2.2); Alkaline Phosphatase 57 U/L (46-116); Anion Gap 7 (7-16); Aspartate Amino Transferase 19 U/L (0-34); BUN/Creatinine Ratio 15 Ratio (12-20); Bilirubin,Total 0.3 mg/dL (0.3-1.2); Blood Urea Nitrogen 15 mg/dL (9-23); Calcium 9.6 mg/dL (8.3-10.6); Calcium (Corrected) 9.9 mg/dL (8.5-10.1); Carbon Dioxide 39.3 mMol/L (20.0-31.0); Chloride 91 mMol/L (98-107); Estimated Creatinine Clearance 43.8 mL/min (>60); Globulin 2.4 gm/dL (2.3-3.5); Glucose 120 mg/dL (74-106); Osmolality,Calculated 275 (275-295); Potassium 3.5 mMol/L (3.4-5.1); Sodium 137 mMol/L (136-145); eGFR 54 See Note
--- NOTE | 2025-01-29 09:39 | ESDS_ITS ---
<Statement entered by Benjamin Larsen MD - 01/30/25 12:18> I discussed with and supervised the tech intern physician involved in the care of this patient. Patient assessment and plan was discussed with entire medicine team, including my attending. I agree with the assessment and plan as documented by tech intern doctor. Patient care was discussed with my attending physician Dr. Chelsey Larsen, PGY-2 Planned Discharge Date 01/29/25 DS: Providers Provider Date of admission: 01/25/25 23:43 Primary care physician: RUEL Garcia Admitting Provider: Thee Callejas MD Attending Provider on Admission: Kaylynn Gonzalez DO Consults: 01/26/25 12:08 Health Equity Referral - Knowledge Deficit Routine Comment: Positive screening for knowledge deficit needs. Health Equity Referral - Transportation Routine Comment: Positive screening for transportation needs. 01/27/25 14:19 Consult to Pulmonology Routine Comment: For chronic lung disease, fibrosis Consulting Provider: Ade Martin Attending Provider on DC: Leighton Cronin MD Discharging Provider: Leighton Cronin MD DS: Diagnosis Problem List Completed Was Problem List Reviewed/Reconciled?: Yes Hospital Course Hospital Course Hospital course: 89-year-old female with past medical history of hypothyroidism, recurrent UTIs, chronic respiratory failure, right breast cancer status post lumpectomy, bedbound, chronic back pain, type 2 diabetes, GERD, depression, pulmonary fibrosis ?, HFpEF who was brought to the ED after being found unresponsive at home and admitted in the hospital for Acute hypoxic and hypercapneic respiratory failure with underlying chronic lung disease, undiagnosed etiology likely ILD Hospital course Vitals at the time of admission are BP 148/67, HR 113, respiratory rate 28, saturating 92% on 13 L oxy mask with FiO2 70. labs at the time of admission are significant for Leukocytosis, normocytic anemia, ABG showing respiratory acidosis with hypercapnia 102, bicarb 39.5, BUN 27, creatinine 1.2, glucose 249, BNP 213 UA positive for UTI. Chest x-ray showed extensive bilateral lung patchy infiltrates. Patient is treated with Antibiotics, Bipap, Lasix during the hospital stay. Patient recovered well during the hospital without any significant events. Consulted [employer], Dr. Martin and he recommended that patient needs a follow-up in outpatient setting with [employer] for further evaluation of chronic lung disease and suggested that the lung pathology could be due to ILD and recurrent hospital admissions could be due to improper usage of BiPAP and worsening of lung disease with advanced age. Discussed about goals of care with the patient's nephew and the primary care provider. Recommended to calibrate the BiPAP patient with the DME and respiratory care provider. Recommended to follow-up in the outpatient setting with [employer] for further work up of chronic lung disease. Recommended to use BiPAP even during the daytime if patient is taking long time naps. Patient is discharged to home with home health with the following medications and recommendations -Follow-up with PCP within 1 week of discharge. If you do not have appointment, please follow-up with the [facility] with Dr. Cronin. Call [phone] to make an appointment. -Follow up with [facility] [employer] for evaluation of chronic lung disease and further management -Recommended to decrease dose of lantus to 10 units and take it at around 10pm, monitor fasting blood sugar and maintain them between 90-140 by titrating insulin as needed -Recommended to stop Glimepride 2mg tablets -Recommended to continue rest of the home medications as prescribed -Recommended to use Bipap during long time day time naps( more than 1 hour) and during day use Bipap if patient is getting drowsy, Continue night time Bipap -Return to ED if symptoms persist or return #Acute encephalopathy, resolved #Acute on chronic hypoxic and hypercapnic respiratory failure secondary to #?Community-acquired pneumonia #Chronic lung disease, 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 Barbosa and senior resident Dr. Suzie Cronin, PGY1 Time Spent with Patient Time attestation: Total time spent providing and/or coordinating discharge services: Time spent: Greater than 30 minutes Home Health Home Health Referral Orders: 01/29/25 09:38 Home Health Referral Routine Reason For Exam: Hypoxic hypercapnic respiratory failure Home-Bound The patient must either because of illness or injury, need the aid of supportive devices such as crutches, canes, wheelchairs, and walkers; the use of special transportation; or the assistance of another person in order to leave their place of residence; OR have a condition such that leaving his or her home is medically contraindicated. In addition, the patient also meets the following criteria: patient is normally unable to leave the home and leaving home requires considerable taxing effort. Addendum to Home Health Certification Practitioner's Certification: I certify that the patient has been under my care in the hospital and the care of attending physician (see below). We had a [id number] encounter on (see date below). My clinical findings indicate that the patient is home bound per the above criteria and the Home Health Services noted in these orders are medically necessary. The primary reason for the [id number] encounter is related to the fact that the patient requires home health services. Date Certifying [id number] Physician Encounter: 01/25/25 Physician's Name who will Assume Oversight for Services: Paco See Physician's Phone No.who will Assume Oversight for Service: UPPER CUTTER - Community Resources: No PT to Evaluate: No PT to evaluate and provide a treatmnet plan to increase patient's mobility and strength. Wound Care: No IV Therapy: No RN Safety Evaluation: Yes RN to evaluate and create a plan of care that will produce positive outcomes. Palliative Treatment: No Palliative treatment and evaluate the need for hospice. Home Health Aide - Personal Care: Yes Home Health Aide to assist with any ADL's. Exam Vital Signs Temp Pulse Resp BP Pulse Ox O2 Del Method O2 Flow Rate 96.9 F 86 18 125/52 L 94 L BiPAP 2 01/29/25 15:42 01/29/25 15:42 01/29/25 15:42 01/29/25 15:42 01/29/25 15:42 01/29/25 15:42 01/29/25 06:27 FiO2 35 01/29/25 03:02 Narrative Exam General: Awake. HEENT: Normocephalic, atraumatic, mucous membranes moist. Heart: Regular rate and rhythm, no murmurs. Lungs: Bilateral fine inspiratory crackles are heard Abdomen: Soft, nondistended, nontender, positive bowel sounds. ?No guarding or rebound tenderness. Neurologic: Alert and oriented x3, no gross neurological deficit, and patient able to move all 4 extremities. Extremities: No edema. Skin: No rash or ecchymoses. Discharge Plan Plan Patient Disposition: Home w/HOME HEALTH Patient condition on transfer: Stable Care Plan Goals: -Follow-up with PCP within 1 week of discharge. If you do not have appointment, please follow-up with the [facility] with Dr. Cronin. Call [phone] to make an appointment. -Follow up with [facility] [employer] for evaluation of chronic lung disease and further management -Recommended to decrease dose of lantus to 10 units and take it at around 10pm, monitor fasting blood sugar and maintain them between 90-140 by titrating insulin as needed -Recommended to stop Glimepride 2mg tablets -Recommended to continue rest of the home medications as prescribed -Recommended to use Bipap during long time day time naps( more than 1 hour) and during day use Bipap if patient is getting drowsy, Continue night time Bipap -Return to ED if symptoms persist or return Prescriptions/Referrals Prescriptions/Med Rec: Continued levothyroxine 75 mcg Tablet 100 mcg PO QAM Rx Instructions: pt now taking 100 MCG methenamine hippurate 1 gram tablet 1 g PO BID Patient Comments: TAKE 1 TABLET BY MOUTH TWICE A DAY WITH 500 MG OF VITAMIN C Rx Instructions: TAKE 1 TABLET BY MOUTH TWICE A DAY WITH 500 MG OF VITAMIN C venlafaxine 150 mg capsule,extended release 24hr 150 mg PO HS omeprazole 40 mg Capsule,Delayed Release(Dr/Ec) 40 mg PO QDAY rosuvastatin 5 mg Tablet 5 mg PO HS aspirin 81 mg Tablet 81 mg PO QDAY ascorbic acid (vitamin C) [Vitamin C] 500 mg Tablet 500 mg PO BID diclofenac sodium 1 % Gel 2 g TOPICAL QID Rx Instructions: apply to single elbow, wrist or hand; for hand includes palm/fingers/back of hand magnesium 500 mg Tablet 1,000 mg PO QDAY metoprolol succinate 25 mg Tablet Extended Release 24 Hr 25 mg PO QDAY Qty: 30 0RF metformin 500 mg tablet 500 mg PO BID furosemide 40 mg tablet 40 mg PO QAM Patient Comments: TAKE 1 TABLET BY MOUTH EVERY DAY IN THE MORNING hydrocodone-acetaminophen 10-325 mg tablet 1 tab PO Q12H PRN (Reason: pain) pramipexole 0.5 mg tablet 1 mg PO HS Patient Comments: TAKE 1 TABLET BY MOUTH EVERYDAY AT BEDTIME cranberry 500 mg capsule 1,000 mg PO QDAY Rx Instructions: administer with a meal Probiotic 20 billion cell capsule 25,000 mmu cells PO QDAY Rx Instructions: administer with a meal calcium carbonate-vitamin D3 [Calcium 600 + D(3)] 600 mg-5 mcg (200 unit) tablet 0.5 tab PO BID Januvia 50 mg tablet 50 mg PO QDAY 30 Days Qty: 30 3RF Changed insulin glargine [Lantus U-100 Insulin] 100 unit/mL solution 10 unit SUBCUT HS Qty: 10 1RF Discontinued glimepiride 2 mg tablet 2 mg PO BID Referrals: See,RUEL Antonio [Primary Care Provider] - Patient/Caregiver Discharge Instructions Other Discharge Activity Instructions:: -Follow-up with PCP within 1 week of discharge. If you do not have appointment, please follow-up with the [facility] with Dr. Cronin. Call [phone] to make an appointment. -Follow up with [facility] [employer] for evaluation of chronic lung disease and further management -Recommended to decrease dose of lantus to 10 units and take it at around 10pm, monitor fasting blood sugar and maintain them between 90-140 by titrating insulin as needed -Recommended to stop Glimepride 2mg tablets -Recommended to continue rest of the home medications as prescribed -Recommended to use Bipap during long time day time naps( more than 1 hour) and during day use Bipap if patient is getting drowsy, Continue night time Bipap -Return to ED if symptoms persist or return Education Materials: Chronic Lung Disease Helping ..., Chronic Lung Disease Caregivers, Lung Disease Chronic Healthy Weight, Chronic Lung Disease Exercise, Managing Chronic Pain Print Language: Gambian Stand Alone Forms: [employer] Award Info., Patient Portal Info Letter Discharge Order Discharge Orders: Discharge (Routine); Ordered 01/29/25 Ordered By: Leighton Cronin Quality Discharge Quality Measures VTE prophylaxis Attestestation Attestation I attest that I was physically present for the evaluation, physical examination, lab and imaging review of the patient with the residents. I discussed the case with the residents and agree with the findings and plans of care as documented above. Roosevelt Barbosa MD
[2025-01-29] MEDS: ASPIRIN EC 81 MG TABEC PO (09:54)
[2025-01-29] MEDS: ASCORBIC ACID 250 MG TABLET 500 MG PO (09:54)
[2025-01-29] MEDS: SENNA/DOCUSATE SOD 1 TAB TABLET PO (09:55)
[2025-01-29] MEDS: PANTOPRAZOLE 40 MG TABLET PO (09:55)
[2025-01-29] MEDS: METOPROLOL SUCCINATE XL 25 MG TABCR PO (09:55)
[2025-01-29] MEDS: METHENAMINE HIPPURATE 1 GM PO (09:56)
--- NOTE | 2025-01-29 11:35 | PC.SS ---
Addendum entered by Karla Horan 01/29/25 13:07: SS set up transportation for patient through [facility] for 1500. SS informed Nurse and Caregiver at bedside. Patient will be transported back home. Original Note: SS follow up note; SS attempted to contact patient's nephew, Jg Coffman to inform him that patient will be discharging back home and would need to cover transportation covarge, however SS was not able to get ahold of Nephew. SS met with caregiver at bedside and she informed SS that patient has 24hr care and is able to discharge back home, however they could not provide payment due to nephew being out of town. SS informed cost accounting clerk that [facility] will cover transportation this time, however informed her that next admission family will need to be responsible for payment. Caregiver verbalized understanding. SS will get [employer] form signed by transfer nurseDonavan.
[2025-01-29] MEDS: INSULIN LISPRO (AdmeLOG) 1 UNIT/0.01 ML UNIT SC (12:16)
[2025-01-29] MEDS: HYDROcodone/APAP 10/325 TAB PO (14:26)
--- NOTE | 2025-01-29 17:06 | PC.NURSE ---
During morning report, RN was informed oxygen tank at bedside belonged to pt, pt confirmed this. At time of discharge, oxygen tank was left in room, however when RN called the home, pt and caregiver denied that oxygen tank belonged to the pt and would not be picking oxygen tank up.
--- NOTE | 2025-01-30 08:35 | PC.CC ---
Addendum entered by Butch Marr RN 01/30/25 18:53: DC summary is available. HH referral sent on [facility] [employer]. Awaiting responses. Pending resume of care date. Original Note: pt is missing dc summary, Informed Dr. Larsen.
--- NOTE | 2025-01-31 07:52 | PC.CC ---
Addendum entered by Niharika Boone RN 01/31/25 13:02: REY is 02/01 Original Note: Pt is booked with [facility] pending REY
== END 2025-01-29 15:40 | disposition home health service (06) | DRG 189 ==
LOC: SERX 23:13 → SERHOLD 01-26 00:05 → S2SX 01-26 10:54 → S2NX 01-26 16:52 → S3NX 01-28 23:38
PROVIDERS: Student in an Organized Health Care Education/Training Program; Admitting Provider Student in an Organized Health Care Education/Training Program; Emergency Provider Emergency Medicine; PCP Nurse Practitioner Family; Visit Provider Internal Medicine
DX: J96.21 Acute and chronic respiratory failure with hypoxia (principal); J18.9 Pneumonia, unspecified organism; I50.33 Acute on chronic diastolic (congestive) heart failure; G93.40 Encephalopathy, unspecified; E87.29 Other acidosis; N39.0 Urinary tract infection, site not specified; K21.9 Gastro-esophageal reflux disease without esophagitis; J96.22 Acute and chronic respiratory failure with hypercapnia; Z85.3 Personal history of malignant neoplasm of breast; E11.9 Type 2 diabetes mellitus without complications; E03.9 Hypothyroidism, unspecified; F32.A Depression, unspecified; G89.29 Other chronic pain; M54.9 Dorsalgia, unspecified; Z74.01 Bed confinement status; J84.10 Pulmonary fibrosis, unspecified; D64.9 Anemia, unspecified; Z79.4 Long term (current) use of insulin; I27.21 Secondary pulmonary arterial hypertension; Z79.84 Long term (current) use of oral hypoglycemic drugs; Z79.899 Other long term (current) drug therapy; Z87.440 Personal history of urinary (tract) infections; Z87.891 Personal history of nicotine dependence
CPT/HCPCS: 36415; 36600; 71045; 80053; 80202; 81001; 82803; 83036; 83605; 83690; 83735; 83880; 84100; 84145; 84443; 84484; 85025; 85610; 85730; 87040; 87077; 87081; 87086; 87186; 87400; 87811; 93005; 93225; 94660; 96365; 96366; 96367; 96375; 99291; A4314; J1644; J1815; J1938; J1956; J2470; J3370; J3372; J3475; A9270

== ENCOUNTER 2025-02-03 20:23 | Inpatient (IN) | payer MEDICARE, SELFPAY ==
[2025-02-03] VITALS (8 sets, daily range): BP systolic 108–118; BP diastolic 57–69; PULSE 107–118; RESP 20–29; TEMP 36.8–37; O2SAT 89–98; BMI 31.9
--- NOTE | 2025-02-03 20:40 | PC.NURSE ---
NO STROKE ALERT PER DR. ARENAS
--- NOTE | 2025-02-03 20:56 | XR_ITS ---
Examination: CT brain head without contrast. 2-D sagittal coronal reconstructions Date and time of exam:February 04, 2025, 0053 hours INDICATIONS: Altered mental status today CTDI: vol (mGy):42 DLP: (mGycm):1120 Technique: Multiple CT axial sections of the brain have been obtained, 5 mm slice thickness. Contrast has not been administered. 2-D sagittal, coronal reconstructions have been obtained Low dose protocols were performed. One or more of the following dose reduction techniques were used; automated exposure control, adjustment of the mA and/or KV according to patient size, use of iterative reconstruction technique. Findings: No significant ventricular enlargement. Intra-axial or extra-axial hemorrhage density is not seen. No mass effect or midline shift Basal cisterns are not remarkable. Fourth ventricle is midline. Cranial vault intact. Impression: Negative for acute hemorrhage, mass effect or midline shift Advise clinical correlation and follow up accordingly
--- NOTE | 2025-02-03 20:56 | XR_ITS ---
Examination: AP chest single view Technique one AP portable semiupright chest single view Date and time: February 03, [id number] hours Comparison January 27, 2025 INDICATIONS: Chest pain shortness of breath today. FINDINGS: [id number] heart failure Moderate enlargement cardiac contour with prominent vascular congestion and perihilar edema Consider superimposed bilateral pneumonia Prominent osteopenia IMPRESSION: [id number] heart failure Consider superimposed bilateral pneumonia
[2025-02-03 20:59] LABS: Base Excess 13 (-3-3); HCO3 43 mEq/L (20-26); Inspired Oxygen, FIO2 70 %; O2 Saturation 97 % (91-98); PCO2 91 mmHg (32.0-48.0); PO2 91 mmHg (83-108); pH, Arterial 7.28 (7.35-7.45)
[2025-02-03 21:00] LABS: Allen Test Not Performed; Puncture Site Left Radial
--- NOTE | 2025-02-03 21:01 | PD.EDAMS ---
Altered Mental Status RME/HPI General Chief Complaint: Altered Mental Status Stated Complaint: ALTERED MENTAL STATUS Time Seen by Provider: 02/03/25 20:55 Arrival date/time: 02/03/25 20:23 RME / HPI RME / HPI narrative: DR. 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 No other history obtained or available for review. No other concerns or complaints expressed at this time. Related Data Home Medications ?Medication ?Instructions ?Recorded ?Confirmed levothyroxine 75 mcg tablet 100 mcg PO QAM 04/18/20 01/26/25 methenamine hippurate 1 gram tablet 1 g PO BID 04/18/20 01/26/25 omeprazole 40 mg capsule,delayed 40 mg PO QDAY 06/04/21 01/26/25 release rosuvastatin 5 mg tablet 5 mg PO HS 06/04/21 01/26/25 venlafaxine 150 mg 150 mg PO HS 06/04/21 01/26/25 capsule,extended release 24 hr furosemide 40 mg tablet 40 mg PO QAM 08/27/22 01/26/25 ascorbic acid (vitamin C) 500 mg 500 mg PO BID 03/19/24 01/26/25 tablet (Vitamin C) aspirin 81 mg tablet 81 mg PO QDAY 03/19/24 01/26/25 diclofenac sodium 1 % topical gel 2 g topical QID 03/19/24 01/26/25 magnesium 500 mg tablet 1,000 mg PO QDAY 03/19/24 01/26/25 calcium 600 mg (as 0.5 tab PO BID 12/27/24 01/26/25 carbonate)-vitamin D3 5 mcg (200 unit) tablet (Calcium 600 + D(3)) cranberry 500 mg capsule 1,000 mg PO QDAY 12/27/24 01/26/25 hydrocodone 10 mg-acetaminophen 1 tab PO Q12H PRN pain 12/27/24 01/26/25 325 mg tablet lactobacillus comb no.10 20 25,000 mmu cells PO QDAY 12/27/24 01/26/25 billion cell capsule (Probiotic) pramipexole 0.5 mg tablet 1 mg PO HS 12/27/24 01/26/25 metformin 500 mg tablet 500 mg PO BID 01/08/25 01/26/25 Previous Rx's ?Medication ?Instructions ?Recorded metoprolol succinate 25 mg 25 mg PO QDAY #30 tabs 03/25/24 tablet,extended release 24 hr sitagliptin phosphate 50 mg tablet 50 mg PO QDAY 1 month #30 tabs 12/30/24 (Januvia) insulin glargine 100 unit/mL 10 unit (0.1 mL) subcut HS #10 mL 01/29/25 subcutaneous solution (Lantus U-100 Insulin) Allergies Allergy/AdvReac Type Severity Reaction Status Date / Time cefuroxime Allergy Intermediate Swelling Verified 12/27/24 11:13 of Lip/Tongue/Throat zinc Allergy Intermediate Rash Verified 12/27/24 11:13 iodine Allergy Unknown Verified 12/27/24 11:13 shellfish derived Allergy Unknown Verified 12/27/24 11:13 Sulfa (Sulfonamide Allergy Unknown Verified 12/27/24 11:13 Antibiotics) Review of Systems Review of Systems ROS Unobtainable: unobtainable due to mental status Past Medical History Past Medical History CARDIAC: Positive Cardiac Disorders, Coronary Artery Disease, Hypercholesterolemia, Congestive Heart Failure and Hypertension RESPIRATORY: Positive Chronic Obstructive Pulmonary Disease (COPD), Pneumonia and Pulmonary Fibrosis GASTROINTESTINAL: Positive Gastrointestinal Disorders, Gall Bladder Disease, Gastroesophageal Reflux Disease and Obesity GENITOURINARY: Positive Genitourinary Disorders and Kidney Stones REPRODUCTIVE: Positive Breast Cancer MUSCULOSKELETAL: Positive Musculoskeletal Disorders, Arthritis and Fractures ENDOCRINE: Positive Endocrine Disorders, Diabetes Mellitus Type 2 and Hypothyroidism PSYCHO/SOCIAL: Positive Depression and Anxiety OTHER HISTORY: Positive Breast Cancer Family History FAMILY HISTORY: Positive Family Cancer Surgical History SURGICAL: Positive Tonsillectomy and Abdominal Surgery ED Exam Narrative Physical exam: GEN. APPEARANCE: The patient is alert awake oriented X-3 in no distress, lying down comfortably, does not look ill/toxic. Patient has good eye contact. Patient minimally follows commands. VITALS: All vitals were reviewed and the pulse ox is 92% on room air which is low according to my interpretation. HEENT: Normocephalic, atraumatic. Pupils are equal and reactive. Oral mucosa is moist. Patent Nares NECK: Supple, nontender, no thyromegaly, no meningismus, no JVD CHEST: Symmetrical, atraumatic, and with equal expansion , Nontender on palpation no deformity and no crepitus. CARDIOVASCULAR: Heart regular rhythm no murmur or gallop rub or extra beats. LUNGS: Course bilaterally with symmetrical chest rise. In respiratory distress. Breathing spontaneously. ABDOMEN: Soft, flat, nontender to palpation, no guarding or rebound tenderness. There are no abnormal masses palpated. Active and normal bowel sounds. EXTREMITIES: Nontender. Mild BLE edema. No cyanosis. Patient is able to move all 4 extremities well, with full ROM and good CSM. SKIN: Warm and dry, no jaundice or rashes noted. NEURO: Patient is GRULLON x 3, Cranial nerves II through XII grossly intact. There is no focal neurologic deficits noted. GCS is 15, PNS and STILL OPERATOR GIN appear grossly intact. PSYCHIATRIC: Patient is in normal mood and affect. Course Course Course Narrative: CXR is ordered for determining the etiology of weakness. Quality Measures none Orders Category Date Time Status Admit to Inpatient Status Routine Admission 02/04/25 03:33 Active Patient Condition Routine Admission 02/04/25 03:33 Ordered Bedside Blood Glucose NOW Care 02/03/25 20:40 Active Bedside Blood Glucose Q6HR Care 02/04/25 03:41 Active Bedside COVID-19 Antigen Test NOW Care 02/03/25 20:57 Active Bedside Influenza A&B Antigen Test NOW Care 02/03/25 20:[address] Screening NOW Care 02/03/25 23:35 Active Continuous Pulse Oximetry NOW Care 02/04/25 03:33 Active EKG (ED ONLY) *Do not use* NOW Care 02/03/25 20:41 Completed Flu & Pneumonia Vaccine Screen ONCE Care 02/04/25 03:33 Active Fluid restriction QDAY Care 02/04/25 03:33 Active Queen [Urinary Catheter] QS Care 02/03/25 21:37 Active Insert IV NOW Care 02/03/25 20:40 Active Miscellaneous Nursing Order NOW Care 02/04/25 03:39 Active NPO NOW Care 02/04/25 03:34 Active Neuro Check Q4H Care 02/04/25 03:33 Active Notify provider NEEDED Care 02/04/25 03:33 Active Obtain weight daily Care 02/04/25 03:34 Active Strict Intake and Output Routine Care 02/04/25 03:34 Ordered Diet NPO (NOW) Diet 02/04/25 03:[address] chest abdomen pelvis wo Stat Exams 02/04/25 00:[address] head/brain wo con Stat Exams 02/03/25 20:56 Taken CXR [XR chest 1V] Stat Exams 02/03/25 20:56 Completed EKG (ED Only) Stat Exams 02/03/25 20:41 Ordered ABG [Arterial Blood Gas] Stat Lab 02/03/25 20:30 Completed ABG [Arterial Blood Gas] Stat Lab 02/04/25 01:20 Completed ABG [Arterial Blood Gas] Stat Lab 02/04/25 03:15 Completed Acetaminophen Stat Lab 02/03/25 21:14 Completed Ammonia Stat Lab 02/03/25 21:14 Completed BNP [B-Type Natriuretic Peptide] Stat Lab 02/03/25 21:14 Completed Blood Culture (Lab) Routine Lab 02/04/25 03:35 Ordered CBC AM DRAW Lab 02/04/25 05:00 Ordered CBC AM DRAW Lab 02/05/25 05:00 Ordered CBC AM DRAW Lab 02/06/25 05:00 Ordered CBC Stat Lab 02/03/25 21:14 Completed CMP [Comprehensive Metabolic Panel] Stat Lab 02/03/25 21:14 Completed Comprehensive Metabolic Panel AM DRAW Lab 02/04/25 05:00 Ordered Comprehensive Metabolic Panel AM DRAW Lab 02/05/25 05:00 Ordered Comprehensive Metabolic Panel AM DRAW Lab 02/06/25 05:00 Ordered Drug Screen,Urine Stat Lab 02/03/25 22:23 Completed INR [Prothrombin Time with INR] Stat Lab 02/03/25 21:14 Completed Magnesium AM DRAW Lab 02/04/25 05:00 Ordered Magnesium AM DRAW Lab 02/05/25 05:00 Ordered Magnesium AM DRAW Lab 02/06/25 05:00 Ordered Phosphorous AM DRAW Lab 02/05/25 05:00 Ordered Phosphorous AM DRAW Lab 02/06/25 05:00 Ordered Phosphorous AM DRAW Lab 02/07/25 05:00 Ordered Salicylate Stat Lab 02/03/25 21:14 Completed Sputum Culture and Gram Stain Routine Lab 02/04/25 03:35 Ordered T4 (Thyroxine) Stat Lab 02/03/25 21:14 Completed Thyroid Stimulating Hormone AM DRAW Lab 02/04/25 05:00 Ordered Thyroid Stimulating Hormone Stat Lab 02/03/25 21:14 Completed Troponin I Stat Lab 02/03/25 21:14 Completed UA, C/S IF [Urinalysis, C/S if Indicated] Stat Lab 02/03/25 00:33 Completed UA, C/S IF [Urinalysis, C/S if Indicated] Stat Lab 02/03/25 22:23 Completed Urine Culture Routine Lab 02/04/25 03:36 Ordered VBG [Venous Blood Gas] Stat Lab 02/03/25 21:14 Completed VBG [Venous Blood Gas] Stat Lab 02/03/25 22:29 Completed Acetaminophen Tab [Tylenol ES Tab] Med 02/04/25 03:41 Active 1,000 mg PO Q6H PRN Acetaminophen Tab [Tylenol Tab] Med 02/04/25 03:33 Active 650 mg PO Q6H PRN Albuterol/Ipratr Rt Sravani [Duoneb Rt Sravani] Med 02/04/25 03:33 Active 3 ml INH Q2HR PRN Azithromycin Inj [Zithromax Inj] 500 mg Med 02/04/25 00:51 Discontinued Sodium Chloride 0.9% 250 ml [Ns] 250 ml IV NOW Dextrose 50% Syr [D50w Syringe Abboject] Med 02/04/25 03:41 Active 25 ml IV Q15MIN PRN Dextrose 50% Syr [D50w Syringe Abboject] Med 02/04/25 03:41 Active 50 ml IV Q15MIN PRN Docusate Sod [Colace] Med 02/04/25 09:00 Active 100 mg PO QDAY Furosemide Inj [Lasix Inj] Med 02/04/25 06:00 Active 40 mg IVP BIDD Furosemide Inj [Lasix Inj] Med 02/04/25 00:51 Discontinued 40 mg IVP X1 ONE Glucagon Inj Med 02/04/25 03:41 Active 1 mg IM Q15MIN PRN Heparin Inj Med 02/04/25 06:00 Active 5,000 unit SC Q8HR INSULIN LISPRO (AdmeLOG) [HumaLOG] Med 02/04/25 06:00 Active See Protocol SC Q6HR Levothyroxine Sodium [Synthroid] Med 02/04/25 06:00 Active 100 mcg PO ACBR Linezolid 600 mg Ivpb [Zyvox Ivpb] Med 02/04/25 01:19 Discontinued 600 mg in 300 ml IV NOW Metoprolol Succinate Xl [Toprol Xl] Med 02/04/25 09:00 Active 25 mg PO QDAY Naloxegol Oxalate [Movantik] Med 02/04/25 09:00 Active 25 mg PO QDAY Ondansetron Inj [Zofran Inj] Med 02/04/25 03:33 Active 4 mg IVP Q6H PRN Pantoprazole Inj [Protonix Inj] Med 02/04/25 09:00 Active 40 mg IVP QDAY Piper/Tazo 3.375 gm Premix [Zosyn] Med 02/04/25 06:00 Active 3.375 gm in 50 ml IV Q8HR Piper/Tazo Inj [Zosyn Inj] 4.5 gm Med 02/03/25 23:35 Discontinued Sodium Chloride 0.9% (Pop) [NS 0.9% mini bag] 100 ml IV NOW Senna [Senokot] Med 02/04/25 09:00 Active 1 tab PO QDAY Sodium Chloride Rt Sravani 10% [NS Rt Sravani 10%] Med 02/04/25 03:33 Discontinued 5 ml INH X1 ONE Vancomycin Pharmacy to Dose Med 02/04/25 09:00 Pending 1 each IV QDAY Vancomycin Pharmacy to Dose Med 02/04/25 09:00 Pending 1 each IV QDAY Vancomycin/Ns 1 gm Ivpb 200 ml Med 02/03/25 23:45 Discontinued IV Q100M Code Status Routine Oth 02/04/25 03:33 Ordered BiPAP / CPAP NOW RT 02/03/25 20:57 Active BiPAP / CPAP NOW RT 02/03/25 20:58 Active BiPAP / CPAP NOW RT 02/04/25 03:33 Active Oxygen Delivery NOW RT 02/03/25 23:49 Active Sputum Induction PRN RT 02/04/25 03:45 Ordered Vital Signs Vital signs: Vital Signs Temperature 98.3 F 02/03/25 20:37 Pulse Rate 118 H 02/03/25 20:37 Respiratory Rate 26 H 02/03/25 20:37 Blood Pressure 118/69 02/03/25 20:37 Pulse Oximetry (%) 93 L 02/03/25 20:37 Oxygen Delivery Method Oxy Mask 02/03/25 20:37 Altered Mental Status MDM Narrative MDM Narrative:: Scribe Attestation: I, Joselin Roman, am scribing for and in the presence of Dr. Arenas. Provider Notation: Although this document has been carefully reviewed, there may still be some phonetic and other typographical errors.? These errors are purely grammatical due to imperfections in the software program and should not be construed in any way to? compromise the substance of the patient's medical care during this visit. Patient was hospitalized on January 252024. She has a Hx of Hypothyroidism, recurrent UTI's, Chronic Respiratory Failure, and breast CA s/p lumpectomy. She is bed bound with chronic pain, DM, pulmonary fibrosis, CHF. Patient was hospitalized for same presentation, being altered and minimally responsive. Patient is supposed to be on BiPAP at home, suspected CUONG. 2230: Spoke to caregiver, states patient woke up fine, then became more lethargic with a productive cough because she did not put on BiPAP due to concern for aspiration. Patient's O2 was 40% on pulse oxymetry readings for approximately 20 minutes. When EMS arrived public accountant intervention raised O2 to mid 60?s. Patient has not had a BM in 8 days and is not passing gas. She has a Hx of cholecystectomy. Usually is conversant and sharp per caregiver. Patient is not allergic to Vancomyocin. WBC with left shift. VBG CO2 retention with metabolic compensation. Ammonia 57 with no history of liver disease. BNP 165, thyroid unremarkable. Chest x-ray largely unchanged from prior x-ray. Patient is tolerating BiPAP well. Will repeat BG and admit. 0118: Spoke at length with caregiver and states patient has been doing more belly berathing for last few months. Cregiver is concerned for resistant strains of urinary bacteria. Provided a list of what had worked in the past. In agreement to hold off intubation until we trial a lower setting on BiPAP to see if patient is able to be optimized that way. Patient data External records reviewed:: [facility] previous records (Reviewed prior ED records from 01/25/25. Patient was seen for Acute hypercapnic respiratory failure.) and EMS form Clinical information provided by:: EMS Social determinants that could affect healthcare access:: mental health (Depression, Anxiety) Patient has the following chronic illnesses:: Coronary Artery Disease, Hypercholesterolemia, Congestive Heart Failure, Hypertension, Chronic Obstructive Pulmonary Disease (COPD), Pneumonia, Pulmonary Fibrosis, Gall Bladder Disease, Gastroesophageal Reflux Disease, Obesity, Kidney Stones, Breast Cancer, Arthritis, Diabetes Mellitus Type 2, Hypothyroidism, Depression, Anxiety How is presenting disease/condition affected by chronic disease/condition?: exacerbated by Evaluation data The following diagnostics were reviewed and interpreted by me:: lab results, radiology exam(s) and EKG tracing(s) (EKG done at 2026, Sinus rhythm, 111 bpm, normal intervals, wandering baseline likely secondary to respiratory motion artifact, non-specific T-wave changes, not a cardiac alert. - Interpreted by Dr. Svetlana Arenas.) Lab and/or radiology exams considered but not ordered:: None Interpretation Summary: RADIOLOGY Chest X-Ray: FINDINGS: [id number] heart failure Moderate enlargement cardiac contour with prominent vascular congestion and perihilar edema Consider superimposed bilateral pneumonia Prominent osteopenia IMPRESSION: [id number] heart failure Consider superimposed bilateral pneumonia Head/Brain CT: Findings: There is no evidence of intracranial hemorrhage, mass effect or midline shift. There are periventricular white matter hypodensities, compatible with chronic small vessel ischemia. No definitive wedge shaped acute infarcts are detected. Please note that subtle early infarcts are better assessed using diffusion weighted MR imaging if clinically indicated. There is mild volume loss. The calvarium is unremarkable. There is mild mucosal thickening in the right maxillary sinus. The mastoid air cells and the other visualized paranasal sinuses are clear. Impression: 1. No evidence of intracranial hemorrhage, mass effect or midline shift. If there are persistent clinical symptoms or additional clinical concerns consider an MRI. 2. Periventricular chronic small vessel ischemia and volume loss. 3. Other findings as described above. Chest/Abdomen/Pelvis CT: Findings: There are patchy areas of collapse /consolidation with airspace and ground-glass opacities in the lungs bilaterally, predominantly in the lower lobes. Some of the segmental bronchi are occluded in bilateral lower lobes, likely due to aspiration. Mild interstitial septal thickening is also seen, predominantly in the lower lobes. There is peribronchial soft tissue thickening with minimal secretions in bilateral lower lobe bronchi. There is no pleural effusion or pneumothorax. The thoracic aorta demonstrates atheromatous calcification without evidence of dissection or aneurysm. The main pulmonary arteries are dilated with the pulmonary trunk measuring 3.7 cm, which may represent pulmonary arterial hypertension. There is coronary artery calcification. Multiple mediastinal and hilar lymph nodes are seen, largest measuring 2 x 1.5 cm in the right precarinal region. There is moderate cardiomegaly with prominent pericardial fat pad. Small hiatal hernia is seen. Thoracic esophagus is distended with food material and mild wall thickening. The gallbladder is surgically absent. Mild fatty infiltration of the liver is seen. The spleen, adrenals and pancreas are unremarkable.The right kidney is atrophic demonstrating multiple non-obstructing calculi, largest measuring 1.3 x 0.6 cm in the interpolar region. Nonspecific perinephric fat stranding is noted bilaterally. There is no ureteric calculi or hydroureteronephrosis. A Queen bulb catheter is seen in the incompletely distended urinary bladder with wall edema and perivesical fat stranding. There is no bowel obstruction. Moderate amount of fecal material is seen in the colon. The appendix is within normal limits. The distal sigmoid colon and rectum is dilated, fecal filled with mild perirectal fat stranding. There are occasional colonic diverticula without evidence of diverticulitis. The abdominal aorta and its branches demonstrate severe atheromatous changes Medications / Prescriptions Medications or Prescriptions considered but not ordered:: None Medication administrations:: Medication Administration History Acetaminophen (Acetaminophen 325 Mg Tablet) 650 mg PO Q6H PRN PRN Reason: Fever >99.5 Stop: 03/06/25 03:32 Acetaminophen (Acetaminophen 500 Mg Tablet) 1,000 mg PO Q6H PRN PRN Reason: PAIN SCALE 1-3 (mild Stop: 03/06/25 03:40 Albuterol/Ipratropium (Albuterol/Ipratropium (Duoneb) Rt Sravani 3 Ml Nebu) 3 ml INH Q2HR PRN PRN Reason: SHORTNESS OF BREATH OR WHEEZE Stop: 03/06/25 03:32 Dextrose (Dextrose 50%-Water Inj 50 Ml Syringe) 25 ml IV Q15MIN PRN PRN Reason: BG 50-70 responsive npo pt Stop: 03/06/25 03:40 Dextrose (Dextrose 50%-Water Inj 50 Ml Syringe) 50 ml IV Q15MIN PRN PRN Reason: BG <50 OR BG <70 & pt unresponsive Stop: 03/06/25 03:40 Docusate Sodium (Docusate Sod 100 Mg Capsule) 100 mg PO QDAY LISETTE; Protocol Stop: 03/06/25 08:59 Furosemide (Furosemide Inj 10 Mg/Ml 4ml Vial) 40 mg IVP BIDD LISETTE Stop: 03/06/25 05:59 Glucagon (Glucagon Inj 1 Mg Vial) 1 mg IM Q15MIN PRN PRN Reason: BG <70, and no IV access Heparin Sodium (Porcine) (Heparin Sod Inj 5000 Unit/Ml Vial) 5,000 unit SC Q8HR LISETTE Stop: 02/18/25 05:59 Piperacillin/Tazobactam/Dextrose (Zosyn) 3.375 gm in 50 mls @ 12.5 mls/hr IV Q8HR LISETTE; Protocol Stop: 02/11/25 05:59 Insulin Human Lispro (Insulin Lispro (Admelog) 1 Unit/0.01 Ml Unit) 0 unit SC Q6HR LISETTE; Protocol Stop: 03/06/25 05:59 Levothyroxine Sodium (Levothyroxine Sodium 100 Mcg Tablet) 100 mcg PO ACBR LISETTE Stop: 03/06/25 05:59 Metoprolol Succinate (Metoprolol Succinate Xl 25 Mg Tabcr) 25 mg PO QDAY LISETTE Stop: 03/06/25 08:59 Naloxegol (Naloxegol Oxalate 25 Mg Tablet (Non-Formulary)) 25 mg PO QDAY LISETTE Stop: 03/06/25 08:59 Ondansetron HCl (Ondansetron Inj 2 Mg/Ml Inj 2 Ml) 4 mg IVP Q6H PRN; Protocol PRN Reason: NAUSEA OR VOMITING Stop: 03/06/25 03:32 Pantoprazole Sodium (Pantoprazole Inj 40 Mg Vial) 40 mg IVP QDAY LISETTE Stop: 03/06/25 08:59 Pharmacy Consult (Vancomycin Pharmacy To Dose 1 Each Each) 1 each IV QDAY LISETTE Stop: 03/06/25 08:59 Pharmacy Consult (Vancomycin Pharmacy To Dose 1 Each Each) 1 each IV QDAY L[facility]ETTE Stop: 03/06/25 08:59 Sennosides (Senna Tablet) 1 tab PO QDAY LISETTE; Protocol Stop: 03/06/25 08:59 Discontinued Medications Furosemide (Furosemide Inj 10 Mg/Ml 4ml Vial) 40 mg IVP X1 ONE Stop: 02/04/25 00:52 Last Admin: 02/04/25 02:10 Dose: Not Given Documented By: DT Non-Admin Reason: Cancelled by Provider Piperacillin Sod/Tazobactam (Sod 4.5 gm/ Sodium Chloride) 100 mls @ 200 mls/hr IV NOW ONE Stop: 02/04/25 00:04 Last Infusion: 02/04/25 00:30 Dose: Infused Documented By: Admin: 02/04/25 00:00 Dose: 200 mls/hr Documented By: DT Vancomycin/Sodium Chloride (Vancomycin/Ns 1 Gm Ivpb) 200 mls @ 120 mls/hr IV Q100M LISETTE Stop: 02/04/25 03:04 Last Admin: 02/04/25 02:47 Dose: Not Given Documented By: DT Non-Admin Reason: Cancelled by Provider Azithromycin 500 mg/ Sodium (Chloride) 250 mls @ 250 mls/hr IV NOW ONE Stop: 02/04/25 01:50 Last Admin: 02/04/25 02:09 Dose: 250 mls/hr Documented By: DT Linezolid (Zyvox Ivpb) 600 mg in 300 mls @ 300 mls/hr IV NOW ONE Stop: 02/04/25 02:18 Sodium Chloride (Sodium Chloride Rt 10% 15 Ml Nebu) 5 ml INH X1 ONE Stop: 02/04/25 03:34 See above if any Consultations Consultation(s) initiated? (list below): Yes Consultation #1 (Physician, Specialty, Details): Dr. Yo made aware of the patient?s HPI, PMHx, lab and/or radiology results. Treatment plan was discussed. Will admit for further evaluation and management. Accepts patient for admission. Time: 02:50 Diagnosis Differential diagnosis altered mental status: altered mental status, delirium, dementia, hypoglycemia, hyponatremia, subarachnoid hemorrhage and sepsis Most likely diagnosis given after review of the tests above:: AMS, PNA, Hypercarbic respiratory failure, UTI, Constipation, Hypoxic respiratory failure Admission Indicated Admission indicated?: indicated Explain why admission is indicated or not indicated:: AMS, PNA, Hypercarbic respiratory failure, UTI, Constipation, Hypoxic respiratory failure Admission Request Was there a request for admission?: Yes Admission Attestation Admission request attestation: Discussed case with [] from Hospitalist service regarding admission. Discussed patients ED course, exam findings, labs, and radiology results. The Hospitalist [agrees,declines] to accept the patient for admission. Disposition Plan Disposition Plan: Admit Critical Care Time Critical Care Time Critical Care Time: Yes Total Critical Care Time (min.): 120 Attestation: The high probability of sudden, clinically significant deterioration in the patient?s condition required the highest level of my preparedness to intervene urgently. The services I provided to this patient were to treat and/or prevent clinically significant deterioration. Services included the following: chart data review, reviewing nursing notes and/or old charts, documentation time, coding consultant collaboration regarding findings and treatment options, medication orders and management, direct patient care, vital sign assessments and ordering, interpreting and reviewing diagnostic studies and lab tests. Aggregate critical care time includes only time during which I was engaged in work directly related to the patient?s care, as described above, whether at bedside or elsewhere in the Emergency Department. It did not include time spent performing other reported procedures or the services of residents, students, nurses or physician assistants. Discharge Plan Plan Patient Disposition: Admit Acute Care w/in Hospital Prescriptions/Referrals Prescriptions/Med Rec: No Action levothyroxine 75 mcg Tablet 100 mcg PO QAM Rx Instructions: pt now taking 100 MCG methenamine hippurate 1 gram tablet 1 g PO BID Patient Comments: TAKE 1 TABLET BY MOUTH TWICE A DAY WITH 500 MG OF VITAMIN C Rx Instructions: TAKE 1 TABLET BY MOUTH TWICE A DAY WITH 500 MG OF VITAMIN C venlafaxine 150 mg capsule,extended release 24hr 150 mg PO HS omeprazole 40 mg Capsule,Delayed Release(Dr/Ec) 40 mg PO QDAY rosuvastatin 5 mg Tablet 5 mg PO HS aspirin 81 mg Tablet 81 mg PO QDAY ascorbic acid (vitamin C) [Vitamin C] 500 mg Tablet 500 mg PO BID diclofenac sodium 1 % Gel 2 g TOPICAL QID Rx Instructions: apply to single elbow, wrist or hand; for hand includes palm/fingers/back of hand magnesium 500 mg Tablet 1,000 mg PO QDAY metoprolol succinate 25 mg Tablet Extended Release 24 Hr 25 mg PO QDAY Qty: 30 0RF metformin 500 mg tablet 500 mg PO BID furosemide 40 mg tablet 40 mg PO QAM Patient Comments: TAKE 1 TABLET BY MOUTH EVERY DAY IN THE MORNING hydrocodone-acetaminophen 10-325 mg tablet 1 tab PO Q12H PRN (Reason: pain) pramipexole 0.5 mg tablet 1 mg PO HS Patient Comments: TAKE 1 TABLET BY MOUTH EVERYDAY AT BEDTIME cranberry 500 mg capsule 1,000 mg PO QDAY Rx Instructions: administer with a meal Probiotic 20 billion cell capsule 25,000 mmu cells PO QDAY Rx Instructions: administer with a meal calcium carbonate-vitamin D3 [Calcium 600 + D(3)] 600 mg-5 mcg (200 unit) tablet 0.5 tab PO BID Januvia 50 mg tablet 50 mg PO QDAY 30 Days Qty: 30 3RF insulin glargine [Lantus U-100 Insulin] 100 unit/mL solution 10 unit SUBCUT HS Qty: 10 1RF Referrals: No Primary/Family,Physician [Primary Care Provider] - In 1 week Problem List Clinical Impression: Altered mental status, Pneumonia, Urinary tract infection, Constipation, Acute respiratory failure with hypoxia and hypercarbia Patient/Caregiver Discharge Instructions Print Language: Bulgarian Stand Alone Forms: [employer] Award Info., Patient Portal Info Letter
[2025-02-03 21:37] LABS: Base Excess, Venous 13 (-3-3); O2 Saturation, Venous 99 % (96-97); PCO2, Venous 42 mmHg (36-56); PO2, Venous 171 mmHg (15-58); pH, Venous 7.55 (7.33-7.66)
[2025-02-03 21:46] LABS: Basophils # (Auto) 0.1 Thou/mm3 (0.0-0.2); Basophils % (Auto) 1 % (0-2.5); Eosinophils # (Auto) 0.1 Thou/mm3 (0.0-0.5); Eosinophils % (Auto) 1 % (0-10); Hematocrit 38.5 % (36.0-46.0); Hemoglobin 11.2 g/dL (12.0-16.0); Immature Granulocytes % (Auto) 1 % (0-0); Immature Granulocytes Auto 0.21 Thou/mm3 (0.00-0.00); Lymphocytes # (Auto) 0.6 Thou/mm3 (1.0-4.8); Lymphocytes % (Auto) 3 % (10-50); Mean Corpuscular HGB Conc 29.1 g/dl (31.0-37.0); Mean Corpuscular Hemoglobin 28.3 pg (25.0-35.0); Mean Corpuscular Volume 97 fL (80-100); Monocytes # (Auto) 0.9 Thou/mm3 (0.0-0.8); Monocytes % (Auto) 5 % (0-12); Neutrophils # (Auto) 14.7 Thou/mm3 (1.8-7.7); Neutrophils % (Auto) 89 % (37-80); Nucleated Red Blood Cell # 0.02 Thou/mm3 (0.00-0.00); Nucleated Red Blood Cell % 0 /100 WBC (0); Platelet Count 375 Thou/mm3 (140-440); RDW Standard Deviation 57.7 fL (36.4-46.3); Red Blood Count 3.96 Miln/mm3 (4.00-5.20); White Blood Count 16.6 Thou/mm3 (3.6-11.0)
[2025-02-03 21:57] LABS: Prothrombin Time 10.9 Seconds (9.0-12.2)
[2025-02-03 22:03] LABS: Ammonia 57 uMol/L (11-32)
[2025-02-03 22:06] LABS: T4 (Thyroxine) 5.7 mcg/dL (4.5-10.9)
[2025-02-03 22:09] LABS: Acetaminophen 2.1 mcg/mL (10.0-20.0); Alanine Aminotransferase 14 U/L (10-49); Albumin, Serum 3.6 gm/dL (3.4-4.8); Albumin/Globulin Ratio 1.4 (1.2-2.2); Alkaline Phosphatase 68 U/L (46-116); Anion Gap 6 (7-16); Aspartate Amino Transferase 18 U/L (0-34); BUN/Creatinine Ratio 15 Ratio (12-20); Bilirubin,Total 0.3 mg/dL (0.3-1.2); Blood Urea Nitrogen 15 mg/dL (9-23); Calcium 10.3 mg/dL (8.3-10.6); Calcium (Corrected) 10.6 mg/dL (8.5-10.1); Carbon Dioxide 33.4 mMol/L (20.0-31.0); Chloride 98 mMol/L (98-107); Estimated Creatinine Clearance 51.6 mL/min (>60); Globulin 2.5 gm/dL (2.3-3.5); Glucose 218 mg/dL (74-106); Osmolality,Calculated 281 (275-295); Potassium 4.9 mMol/L (3.4-5.1); Salicylate < 3.0 mg/dL; Sodium 137 mMol/L (136-145); Thyroid Stimulating Hormone 1.91 uIU/mL (0.55-4.78); Total Protein 6.1 gm/dL (5.7-8.2); Troponin I < 0.020 ng/mL (0.0-0.045); eGFR 54 See Note
[2025-02-03 22:18] LABS: B-Type Natriuretic Peptide 165 pg/mL (0-100)
[2025-02-03 22:27] LABS: Collection Type, Urine Catheter
[2025-02-03 22:42] LABS: Bacteria,Urine Rare; Bilirubin,Urine Negative (Negative); Blood,Urine Negative (Negative); Budding Yeast,Urine Present; Clarity,Urine Turbid (Clear/Hazy); Color,Urine Yellow (Lt Yel-Yel); Culture Indicated,Urine Contaminated; Glucose, Urine Negative (Negative); Hyaline Casts,Urine 1 /hpf (0-1); Ketones,Urine Negative (Negative); Leukocyte Esterase,Urine Positive (Negative); Nitrite,Urine Positive (Negative); Protein,Urine Trace (Neg - Trace); RBC,Urine 19 /hpf (0-3); Specific Gravity,Urine 1.023 (1.001-1.035); Squamous Epithelial Cell,Urine 32 /hpf (0-5); Urobilinogen,Urine Negative mg/dL (0.0-1.0); WBC,Urine 241 /hpf (0-5)
[2025-02-03 22:56] LABS: Amphetamine/Methamp Scrn,U Negative (Negative); Barbiturate Screen,Urine Negative (Negative); Benzodiazepines Screen,Urine Negative (Negative); Benzoylecgonine Screen, Ur Negative (Negative); Fentanyl Screen,Urine Negative (Negative); Opiate Screen,Urine Positive (Negative); THC Screen,Urine Negative (Negative)
[2025-02-03 23:07] LABS: Base Excess, Venous 13 (-3-3); O2 Saturation, Venous 97 % (96-97); PCO2, Venous 68 mmHg (36-56); PO2, Venous 80 mmHg (15-58); pH, Venous 7.39 (7.33-7.66)
[2025-02-04] VITALS (22 sets, daily range): BP systolic 101–149; BP diastolic 52–90; PULSE 85–106; RESP 14–30; TEMP 36.4–37.5; O2SAT 90–103
[2025-02-04] MEDS: PIPER/TAZO INJ 4.5 GM in SODIUM CHLORIDE 0.9% (POP) 100 ML IV
--- NOTE | 2025-02-04 00:28 | XR_ITS ---
Examination: CT chest, without intravenous contrast. CT abdomen, without intravenous contrast. CT pelvis, without intravenous contrast. 2-D sagittal and coronal reconstructions. 3-D reconstructions. Date and time of exam:February 04, 2025, 0055 hours Comparison December 27, 2024 INDICATIONS: Abdominal and chest pain today, clinical diagnosis bowel obstruction, pneumonia CTDI vol (mgy) 75 DLP ([id number])[id number] Technique: Multiple CT images, 3.0 mm slice thickness, obtained chest, abdomen, pelvis, with the high-resolution 64 slice scanner.. Sagittal and coronal 2-D reconstructions are obtained. 3-D reconstructions Low dose protocols were performed. One or more of the following dose reduction techniques were used; automated exposure control, adjustment of the mA and/or KV according to patient size, use of iterative reconstruction technique. Findings: The esophagus is distended with wall thickening Severe bilateral lung opacity Mild to moderate enlargement cardiac contour with vascular congestion Prominent central pulmonary arteries Significant calcification left anterior descending coronary artery Skin thickening right breast No visualized liver or splenic lesion Absent gallbladder No pancreatic or adrenal mass Multiple right renal calculi, severe right renal cortical thinning No hydronephrosis or ureteral calculi Aorta normal size Normal appendix No bowel obstruction No diverticulitis 24 mm calcified right adnexal mass Atrophic uterus Large amounts of stool in the rectum with thickening of the rectal wall Urinary bladder is contracted around a Queen catheter, urinary bladder wall thickening IMPRESSION: Severe bilateral pneumonia, consider aspiration pneumonia Heart failure with superimposed pulmonary edema Pulmonary artery hypertension Skin thickening right breast, clinical correlation is advised Severe bilateral renal cortical thinning, greater on the right, multiple right renal calculi, but no hydronephrosis or renal calculi No bowel obstruction. Large amounts of stool in the rectum with thickening of the rectal wall, differential would include proctitis Urinary bladder contracted around a Queen catheter
[2025-02-04 00:52] LABS: Collection Type, Urine Clean Catch
[2025-02-04 01:09] LABS: Bilirubin,Urine Negative (Negative); Blood,Urine Negative (Negative); Budding Yeast,Urine Present; Calcium Oxalate Crystals,Urine 2+; Clarity,Urine Turbid (Clear/Hazy); Color,Urine Yellow (Lt Yel-Yel); Culture Indicated,Urine Contaminated; Glucose, Urine Negative (Negative); Hyaline Casts,Urine < 1 /hpf (0-1); Ketones,Urine Negative (Negative); Leukocyte Esterase,Urine Positive (Negative); Nitrite,Urine Positive (Negative); Protein,Urine Trace (Neg - Trace); RBC,Urine 14 /hpf (0-3); Specific Gravity,Urine 1.021 (1.001-1.035); Squamous Epithelial Cell,Urine 30 /hpf (0-5); Urobilinogen,Urine Negative mg/dL (0.0-1.0); WBC,Urine 200 /hpf (0-5)
[2025-02-04 01:32] LABS: Base Excess 13 (-3-3); HCO3 43 mEq/L (20-26); Inspired Oxygen, FIO2 21 %; O2 Saturation 94 % (91-98); PCO2 91 mmHg (32.0-48.0); PO2 73 mmHg (83-108); pH, Arterial 7.28 (7.35-7.45)
[2025-02-04 01:44] LABS: Allen Test Not Performed; Puncture Site Left Radial
--- NOTE | 2025-02-04 02:06 | PC.RT ---
fio2 titrated to 45%
[2025-02-04] MEDS: AZITHROMYCIN INJ 500 MG in SODIUM CHLORIDE 0.9% 250 ML 250 ML 250 MG IV (02:09)
--- NOTE | 2025-02-04 02:29 | PRELIM_ITS ---
CT scan of the head without intravenous contrast (axial sections with sagittal and coronal reformats) February 04, 2025 0053 hours Clinical history: AMS. No prior study is available for comparison. Findings: There is no evidence of intracranial hemorrhage, mass effect or midline shift. There are periventricular white matter hypodensities, compatible with chronic small vessel ischemia. No definitive wedge shaped acute infarcts are detected. Please note that subtle early infarcts are better assessed using diffusion weighted MR imaging if clinically indicated. There is mild volume loss. The calvarium is unremarkable. There is mild mucosal thickening in the right maxillary sinus. The mastoid air cells and the other visualized paranasal sinuses are clear. Impression: 1. No evidence of intracranial hemorrhage, mass effect or midline shift. If there are persistent clinical symptoms or additional clinical concerns consider an MRI. 2. Periventricular chronic small vessel ischemia and volume loss. 3. Other findings as described above. Report Electronically Signed By: Jonas García 02/04/2025 2:28:15 AM [EST]
--- NOTE | 2025-02-04 02:50 | PRELIM_ITS ---
CT scan of the chest, abdomen and pelvis without intravenous contrast (axial sections with sagittal and coronal reformats) February 04, 2025 0055 hours Clinical History: Bowel obstruction, pneumonia. Comparison: Reference is made to the prior report dated June 14, 2021. Findings: There are patchy areas of collapse /consolidation with airspace and ground- glass opacities in the lungs bilaterally, predominantly in the lower lobes. Some of the segmental bronchi are occluded in bilateral lower lobes, likely due to aspiration. Mild interstitial septal thickening is also seen, predominantly in the lower lobes. There is peribronchial soft tissue thickening with minimal secretions in bilateral lower lobe bronchi. There is no pleural effusion or pneumothorax. The thoracic aorta demonstrates atheromatous calcification without evidence of dissection or aneurysm. The main pulmonary arteries are dilated with the pulmonary trunk measuring 3.7 cm, which may represent pulmonary arterial hypertension. There is coronary artery calcification. Multiple mediastinal and hilar lymph nodes are seen, largest measuring 2 x 1.5 cm in the right precarinal region. There is moderate cardiomegaly with prominent pericardial fat pad. Small hiatal hernia is seen. Thoracic esophagus is distended with food material and mild wall thickening. The gallbladder is surgically absent. Mild fatty infiltration of the liver is seen. The spleen, adrenals and pancreas are unremarkable.The right kidney is atrophic demonstrating multiple non-obstructing calculi, largest measuring 1.3 x 0.6 cm in the interpolar region. Nonspecific perinephric fat stranding is noted bilaterally. There is no ureteric calculi or hydroureteronephrosis. A Queen bulb catheter is seen in the incompletely distended urinary bladder with wall edema and perivesical fat stranding. There is no bowel obstruction. Moderate amount of fecal material is seen in the colon. The appendix is within normal limits. The distal sigmoid colon and rectum is dilated, fecal filled with mild perirectal fat stranding. There are occasional colonic diverticula without evidence of diverticulitis. The abdominal aorta and its branches demonstrate severe atheromatous changes. A 2 cm calcified right adnexal mass is seen. The uterus is unremarkable. Phleboliths are seen in the pelvis. There is suggestion of pelvic floor laxity with possible rectocele. There is diffuse osteopenia. There are chronic anterior wedge compression fractures of T12-L1 vertebrae. There are chronic depressed superior endplate fractures of T5, T6 and T8 vertebral bodies. There is marked fatty atrophy of bilateral gluteal and paraspinal muscles. There are advanced degenerative changes with remodeling of the visualized shoulder joints bilaterally. There is irregular subcutaneous soft tissue thickening, scarring with calcifications involving the right breast parenchyma. Please note that evaluation of soft tissue/vascular structures and bowel loops is limited due to absence of IV and oral contrast. Impression: Limited study due to lack of intravenous contrast. 1. Patchy areas of consolidation, ground-glass opacities in the lungs bilaterally with volume loss and bronchial occlusion in bilateral lower lobes, suggestive of aspiration / pneumonitis. 2. Cardiomegaly with pulmonary arterial hypertension and probable mild interstitial pulmonary edema. 3. Small hiatal hernia with reflux esophagitis. 4. Partially distended urinary bladder with wall thickening and adjacent fat stranding, suspicious for cystitis. 5. Mild constipation and mild rectal fecal impaction. 6. Subcutaneous thickening with scarring and calcifications involving the right breast parenchyma. Recommend direct comparison with prior images and further evaluation as indicated. 7. Other findings as described above. Suggest clinical correlation and follow up accordingly. Discussion Details: Results verbally communicated to : Dr Tafoya at 02:39 AM 02/04/2025 Report Electronically Signed By: Jonas García 02/04/2025 2:50:29 AM [EST]
[2025-02-04 03:22] LABS: Base Excess 14 (-3-3); HCO3 43 mEq/L (20-26); O2 Saturation 94 % (91-98); PCO2 86 mmHg (32.0-48.0); PO2 72 mmHg (83-108); pH, Arterial 7.31 (7.35-7.45)
[2025-02-04 03:23] LABS: Allen Test Not Performed; Inspired Oxygen, FIO2 45 %; Puncture Site Left Radial
--- NOTE | 2025-02-04 03:40 | ESHP_ITS ---
<Statement entered by Phuc Yo MD - 02/04/25 07:07> I Phuc Yo MD reviewed the note and agree with the resident's assessment & plan with exceptions as below. I have personally reviewed labs, imaging, home meds/prior records, examined the patient, formulated and discussed management plan with the IM team. Documentation for date of: 02/04/25 HPI History of Present Illness Chief complaint: hypoxia History of present illness: History limited as patient is encephalopathic and on BiPAP 89-year-old female with past medical history of hypothyroidism, recurrent UTIs, chronic respiratory failure, right breast cancer status post lumpectomy, bedbound, chronic back pain, type 2 diabetes, GERD, depression, pulmonary fibrosis ?, HFpEF who was brought to the ED after being found to be lethargic at home. Caregiver states that the previous day she was AO x 3 talking and doing just fine however today patient has been becoming more lethargic started developing cough with productive clear sputum due to the cough caregiver was concerned for aspiration and did not put the patient on BiPAP and patient continued to deteriorate and then called the ambulance and was brought to the ER. ED course: ED vitals: BP 118/69, HR 118, respiratory rate 26, saturating 93% on oxy mask ED labs: Leukocytosis, normocytic anemia, ABG shows respiratory acidosis with hypercapnia, bicarb 33.4, ammonia 57, BNP 165 urine shows positive nitrites, multiple WBCs, yeast, likely contaminant, U-Tox positive for opiates, head CT was negative, chest x-ray shows bilateral pneumonia, mild to moderate CHF, CT chest abdomen pelvis shows bilateral groundglass opacities, possible aspiration/pneumonitis, mild constipation, rectal fecal impaction, In the ED patient received Zosyn, azithromycin PMHx: As above SX Hx: Lumpectomy, Cholecystectomy Allergies: Sulfa abx, cefuroxime Family Hx:Limited Social Hx: Denies alcohol use, or susbstance abuse, denies cigarette use Review of Systems Review of Systems ROS Unobtainable: unobtainable due to mental status Exam Vital Signs Temp Pulse Resp BP Pulse Ox O2 Del Method O2 Flow Rate 98.6 F 102 H 26 H 118/59 L 92 L High Flow Nasal Cannula 40 02/04/25 01:56 02/04/25 02:10 02/04/25 02:10 02/04/25 01:56 02/04/25 02:10 02/04/25 01:56 02/04/25 01:56 FiO2 45 02/04/25 02:10 Narrative Exam Physical Exam GENERAL: NAD, on BiPAP, obese HEENT: Moist mucosa. Eyes open, symmetrical, & clear CARDIO: Heart RRR, no obvious murmurs PULM: No noted coughing/dyspnea, bilateral crackles, examination limited due to BiPAP GI: Abdomen soft, nondistended, no pain on palpation. BSx4 SKIN/MSK/EXT: Bilateral lower extremity edema +2, no pain on palpation. Pedal pulses present B/L Results: Labs 02/03/25 21:14 02/03/25 21:14 Labs: Short CBC 02/03/25 Range/Units 21:14 WBC 16.6 H D (3.6-11.0) Thou/mm3 Hgb 11.2 L (12.0-16.0) g/dL Hct 38.5 (36.0-46.0) % Plt Count 375 D (140-440) Thou/mm3 BMP 02/03/25 21:14 Sodium 137 Potassium 4.9 Chloride 98 Carbon Dioxide 33.4 H BUN 15 Creatinine 1.0 Glucose 218 H Calcium 10.3 Cardiac Enzymes 02/03/25 Range/Units 21:14 Troponin I < 0.020 (0.0-0.045) ng/mL Liver Function 02/03/25 Range/Units 21:14 Total Bilirubin 0.3 (0.3-1.2) mg/dL AST 18 (0-34) U/L ALT 14 (10-49) U/L Alkaline Phosphatase 68 (46-116) U/L Albumin 3.6 (3.4-4.8) gm/dL Urine 02/03/25 02/03/25 Range/Units 00:33 22:23 Urine Color Yellow Yellow (Lt Yel-Yel) Urine Clarity Turbid A Turbid A (Clear/Hazy) Urine pH 6.0 6.0 (5.0-7.0) Ur Specific [place] 1.021 1.023 (1.001-1.035) Urine Protein Trace Trace (Neg - Trace) Urine Glucose (UA) Negative Negative (Negative) ABG Interpretation ABG results: 02/03/25 02/03/25 02/03/25 20:30 21:14 22:29 ABG pH 7.28 L ABG pCO2 91 H* ABG pO2 91 ABG HCO3 43 H ABG O2 Saturation 97 ABG Base Excess 13 H VBG pH 7.55 7.39 VBG pCO2 42 68 H D VBG pO2 171 H 80 H D VBG Base Excess 13 H 13 H 02/04/25 02/04/25 01:20 03:15 ABG pH 7.28 L 7.31 L ABG pCO2 91 H* 86 H* ABG pO2 73 L 72 L ABG HCO3 43 H 43 H ABG O2 Saturation 94 94 ABG Base Excess 13 H 14 H VBG pH VBG pCO2 VBG pO2 VBG Base Excess Quality Measures Quality Measures none Advance care planning discussed with:: patient Medications Home Medications and Allergies Home Medications ?Medication ?Instructions ?Recorded ?Confirmed ?Type levothyroxine 75 mcg tablet 100 mcg PO QAM 04/18/20 History methenamine hippurate 1 gram tablet 1 g PO BID 0 01/26/25 History omeprazole 40 mg capsule,delayed 40 mg PO QDAY 1 01/26/25 History release rosuvastatin 5 mg tablet 5 mg PO HS 06/04/21 01/26/25 History venlafaxine 150 mg 150 mg PO HS 06/04/21 History capsule,extended release 24 hr furosemide 40 mg tablet 40 mg PO QAM 08/27/22 History ascorbic acid (vitamin C) 500 mg 500 mg PO BID 4 01/26/25 History tablet (Vitamin C) aspirin 81 mg tablet 81 mg PO QDAY 03/19/2401/26 History diclofenac sodium 1 % topical gel 2 g topical QID 10/1101/26/25 History magnesium 500 mg tablet 1,000 mg PO QDAY 03/19/24 History calcium 600 mg (as 0.5 tab PO BID 12/27/2401/16 History carbonate)-vitamin D3 5 mcg (200 unit) tablet (Calcium 600 + D(3)) cranberry 500 mg capsule 1,000 mg PO QDAY 12/27/24 History hydrocodone 10 mg-acetaminophen 1 tab PO Q12H PRN pain 12/27/24 01/26/25 History 325 mg tablet lactobacillus comb no.10 20 25,000 mmu cells PO QDAY 0 12/27/24 01/26/25 History billion cell capsule (Probiotic) pramipexole 0.5 mg tablet 1 mg PO HS 12/27/24 01/26/25 History metformin 500 mg tablet 500 mg PO BID 01/08/2501/26 History Allergies Allergy/AdvReac Type Severity Reaction Status Date / Time cefuroxime Allergy Intermediate Swelling Verified 12/27/24 11:13 of Lip/Tongue/Throat zinc Allergy Intermediate Rash Verified 12/27/24 11:13 iodine Allergy Unknown Verified 12/27/24 11:13 shellfish derived Allergy Unknown Verified 12/27/24 11:13 Sulfa (Sulfonamide Allergy Unknown Verified 12/27/24 11:13 Antibiotics) Visit Medications Acetaminophen (Acetaminophen 325 Mg Tablet) 650 mg PO Q6H PRN PRN Reason: Fever >99.5 Stop: 03/06/25 03:32 Acetaminophen (Acetaminophen 325 Mg Tablet) 1,000 mg PO Q6H PRN PRN Reason: PAIN SCALE 1-3 (mild Stop: 03/06/25 03:32 Albuterol/Ipratropium (Albuterol/Ipratropium (Duoneb) Rt Sravani 3 Ml Nebu) 3 ml INH Q2HR PRN PRN Reason: SHORTNESS OF BREATH OR WHEEZE Stop: 03/06/25 03:32 Docusate Sodium (Docusate Sod 100 Mg Capsule) 100 mg PO QDAY LISETTE; Protocol Stop: 03/06/25 08:59 Heparin Sodium (Porcine) (Heparin Sod Inj 5000 Unit/Ml Vial) 5,000 unit SC Q8HR LISETTE Stop: 02/18/25 05:59 Piperacillin/Tazobactam/Dextrose (Zosyn) 50 mls @ 100 mls/hr IV Q8HR [facility] Stop: 02/11/25 03:36 Naloxegol (Naloxegol Oxalate 25 Mg Tablet (Non-Formulary)) 25 mg PO QDAY LISETTE Stop: 03/06/25 08:59 Ondansetron HCl (Ondansetron Inj 2 Mg/Ml Inj 2 Ml) 4 mg IVP Q6H PRN; Protocol PRN Reason: NAUSEA OR VOMITING Stop: 03/06/25 03:32 Pantoprazole Sodium (Pantoprazole Inj 40 Mg Vial) 40 mg IVP QDAY [place]ETTE Stop: 03/06/25 08:59 Pharmacy Consult (Vancomycin Pharmacy To Dose 1 Each Each) 1 each IV QDAY LISETTE Stop: 03/06/25 08:59 Pharmacy Consult (Vancomycin Pharmacy To Dose 1 Each Each) 1 each IV QDAY [facility]ETTE Stop: 03/06/25 08:59 Sennosides (Senna Tablet) 1 tab PO QDAY LISETTE; Protocol Stop: 03/06/25 08:59 Sodium Chloride (Sodium Chloride Rt 10% 15 Ml Nebu) 5 ml INH X1 ONE Stop: 02/04/25 03:34 Discontinued Medications Furosemide (Furosemide Inj 10 Mg/Ml 4ml Vial) 40 mg IVP X1 ONE Stop: 02/04/25 00:52 Last Admin: 02/04/25 02:10 Dose: Not Given Piperacillin Sod/Tazobactam (Sod 4.5 gm/ Sodium Chloride) 100 mls @ 200 mls/hr IV NOW ONE Stop: 02/04/25 00:04 Last Infusion: 02/04/25 00:30 Dose: Infused Vancomycin/Sodium Chloride (Vancomycin/Ns 1 Gm Ivpb) 200 mls @ 120 mls/hr IV Q100M LISETTE Stop: 02/04/25 03:04 Last Admin: 02/04/25 02:47 Dose: Not Given Azithromycin 500 mg/ Sodium (Chloride) 250 mls @ 250 mls/hr IV NOW ONE Stop: 02/04/25 01:50 Last Admin: 02/04/25 02:09 Dose: 250 mls/hr Linezolid (Zyvox Ivpb) 600 mg in 300 mls @ 300 mls/hr IV NOW ONE Stop: 02/04/25 02:18 Assessment & Plan Plan 89-year-old female with past medical history of 89-year-old female with past medical history of hypothyroidism, recurrent UTIs, chronic respiratory failure, right breast cancer status post lumpectomy, bedbound, chronic back pain, type 2 diabetes, GERD, depression, pulmonary fibrosis ?, HFpEF who was brought to the ED after being found unresponsive at home. #Acute encephalopathy likely secondary to #Acute on chronic hypoxic and hypercapnic respiratory failure #Community-acquired pneumonia #?Pulmonary fibrosis Patient yesterday was AO x 3 however today became lethargic progressively during the day she developed a cough with productive phlegm and the caregiver was concern for aspiration events therefore did not put the patient on BiPAP patient later then became unresponsive and EMS was called. Patient was found to be desaturating on pulse ox at her home Chest x-ray showed bilateral lung opacities, pneumonia versus pulmonary edema in the differential Follow-up ABG showed improvement in an acid-base status we will continue on BiPAP at this time. ? Follow-up ABGs ? BiPAP ? Zosyn ? Vancomycin ? Follow-up cultures ? DuoNebs as needed ? BiPAP at nighttime whenever she is taking long naps ? N.p.o. until swallow screen is passed ? Consider pulmonology consult ? Consider hospice referral #Acute decompensated heart failure exacerbation #HFpEF [65%] Presented with clinical signs such as shortness of breath, bilateral leg swelling, CXR: Bilateral lung opacities, pulmonary edema BNP: 163 Last echo: December 2024: Normal left ventricular size and function. Approximate ejection fraction is 65%. Trace mitral and trace tricuspid regurgitation. No wall motion abnormalities noted. ? IV Lasix 40 twice daily ? Metoprolol 25 mg daily ? Keep K>4, Mg>2 ? Provide oxygen as required ? Strict I's and O's ? Fluid restriction #Constipation Patient has not had a bowel movement in 8 days and prior to that did not have a bowel movement for multiple days from last admission Patient takes Delancey's chronically for chronic back pain could be contributing to constipation CT shows fecal impaction ? Senna ? Colace ? Movantik ? Consider enema or manual disimpaction once acute illness improves #Diabetes mellitus type 2 Last A1c: December 2024, 7.1 ? SSI ? Hypoglycemia protocol in place ? Lantus 10 units daily #Hypothyroidism ? Resume levothyroxine as taken at home Health Maintenance: Disposition: Telemetry, IV antibiotics, IV diuresis Fluids: None Feeding: N.p.o. till swallow screen Thrombo prophylaxis: Heparin Gastric Ulcer prophylaxis: Pantoprazole CODE STATUS: Full code Case discussed with my attending Dr. Srinath Wolff MD PGY-1 Disclaimer: Despite multiple revisions, due to the dictation software being used, the document bellow may not be free of grammatical errors including phonetic/typographic errors. However, this does not deter from our commitment to providing health care in the patient's best interest in mind.
[2025-02-04] MEDS: LINEZOLID 600 MG IVPB 600 MG/300 ML BAG 300 MG IV (04:11)
[2025-02-04 04:47] LABS: Basophils # (Auto) 0.1 Thou/mm3 (0.0-0.2); Basophils % (Auto) 0 % (0-2.5); Eosinophils # (Auto) 0.1 Thou/mm3 (0.0-0.5); Eosinophils % (Auto) 0 % (0-10); Hematocrit 35.4 % (36.0-46.0); Hemoglobin 10.2 g/dL (12.0-16.0); Immature Granulocytes % (Auto) 1 % (0-0); Immature Granulocytes Auto 0.12 Thou/mm3 (0.00-0.00); Lymphocytes # (Auto) 0.8 Thou/mm3 (1.0-4.8); Lymphocytes % (Auto) 5 % (10-50); Mean Corpuscular HGB Conc 28.8 g/dl (31.0-37.0); Mean Corpuscular Hemoglobin 28.3 pg (25.0-35.0); Mean Corpuscular Volume 98 fL (80-100); Monocytes # (Auto) 0.9 Thou/mm3 (0.0-0.8); Monocytes % (Auto) 5 % (0-12); Neutrophils # (Auto) 16.2 Thou/mm3 (1.8-7.7); Neutrophils % (Auto) 89 % (37-80); Nucleated Red Blood Cell # 0.02 Thou/mm3 (0.00-0.00); Nucleated Red Blood Cell % 0 /100 WBC (0); Platelet Count 331 Thou/mm3 (140-440); RDW Standard Deviation 58.9 fL (36.4-46.3); Red Blood Count 3.61 Miln/mm3 (4.00-5.20); White Blood Count 18.1 Thou/mm3 (3.6-11.0)
[2025-02-04 05:14] LABS: Alanine Aminotransferase 12 U/L (10-49); Albumin, Serum 3.3 gm/dL (3.4-4.8); Albumin/Globulin Ratio 1.3 (1.2-2.2); Alkaline Phosphatase 61 U/L (46-116); Anion Gap 4 (7-16); Aspartate Amino Transferase 14 U/L (0-34); BUN/Creatinine Ratio 20 Ratio (12-20); Bilirubin,Total 0.4 mg/dL (0.3-1.2); Blood Urea Nitrogen 22 mg/dL (9-23); Calcium 10.2 mg/dL (8.3-10.6); Calcium (Corrected) 10.8 mg/dL (8.5-10.1); Carbon Dioxide > 40.0 mMol/L (20.0-31.0); Chloride 96 mMol/L (98-107); Creatinine (Component) 1.1 mg/dL (0.6-1.3); Estimated Creatinine Clearance 47.5 mL/min (>60); Globulin 2.5 gm/dL (2.3-3.5); Glucose 264 mg/dL (74-106); Magnesium 2.3 mg/dL (1.6-2.6); Osmolality,Calculated 291 (275-295); Potassium 5.1 mMol/L (3.4-5.1); Sodium 140 mMol/L (136-145); Thyroid Stimulating Hormone 1.58 uIU/mL (0.55-4.78); Total Protein 5.8 gm/dL (5.7-8.2); eGFR 48 See Note
--- NOTE | 2025-02-04 05:26 | PC.RT ---
unable t collect sputum at this time due to pts mentation.
[2025-02-04] MEDS: PIPER/TAZO 3.375 GM PREMIX 3.375 GM/50 ML BAG IV ×3 (06:35→21:38)
[2025-02-04] MEDS: HEPARIN SOD INJ 5000 UNIT/ML VIAL SC ×3 (06:36→21:37)
--- NOTE | 2025-02-04 07:28 | PC.NURSE ---
Resident Tim at bedside. Asked Dr about patient having PO morning meds ordered when she is on BiPAP. Dr Okayed to hold off on PO meds at this time. VBG order placed.
[2025-02-04 07:54] LABS: Base Excess, Venous 15 (-3-3); O2 Saturation, Venous 97 % (96-97); PCO2, Venous 64 mmHg (36-56); PO2, Venous 88 mmHg (15-58); pH, Venous 7.43 (7.33-7.66)
[2025-02-04] MEDS: VANCOMYCIN/NS 1 GM IVPB 200 ML IV ×2 (10:47→14:10)
[2025-02-04] MEDS: PANTOPRAZOLE INJ 40 MG VIAL IVP (10:49)
[2025-02-04] MEDS: MethylPREDNISolone SOD SUCC 62.5 MG/ML 2ML VIAL 125 MG IVP (17:04)
--- NOTE | 2025-02-04 18:49 | ESPR_ITS ---
<Statement entered by Benjamin Larsen MD - 02/05/25 14:34> I discussed with and supervised the general internal medicine doctor physician involved in the care of this patient. Patient assessment and plan was discussed with entire medicine team, including my attending. I agree with the assessment and plan as documented by general internal medicine doctor doctor. Patient care was discussed with my attending physician Dr. Carlos Larsen, PGY-2 Documentation for date of: 02/04/25 Subjective Subjective Interval history: Patient is seen and examined bedside Patient is on BiPAP and still drowsy, able to respond to questions by nodding her head Repeat VBG was ordered and it showed significant improvement in the CO2 Vitals are stable. On physical examination, bilateral fine expiratory crackles heard Bottle Gauger Dr. Jerez is consulted and he recommended the patient might be having hypersensitivity pneumonitis for which patient was started on Solu-Medrol 125 Mg daily Held Lasix as of now in view of contraction alkalosis and patient does not appear to be in fluid overload Will continue night time BiPAP Exam Vital Signs Temp Pulse Resp BP Pulse Ox O2 Del Method O2 Flow Rate 98.9 F 87 26 H 132/60 H 92 L BiPAP 2 02/04/25 18:44 02/04/25 18:44 02/04/25 18:44 02/04/25 18:44 02/04/25 18:44 02/04/25 16:28 02/04/25 17:07 FiO2 45 02/04/25 16:58 Narrative Exam General: Drowsy but able to respond to verbal commands HEENT: Normocephalic, atraumatic, mucous membranes moist. Heart: Regular rate and rhythm, no murmurs. Lungs: Bilateral fine inspiratory crackles are heard Abdomen: Soft, nondistended, nontender, positive bowel sounds. ?No guarding or rebound tenderness. Neurologic: no gross neurological deficit, and patient able to move all 4 extremities. Extremities: No edema. Skin: No rash or ecchymoses. Objective Labs 02/05/25 05:30 02/05/25 05:30 Labs: Laboratory Results - last 24 hr 02/03/25 02/03/25 02/03/25 00:33 20:30 21:14 WBC 16.6 H D RBC 3.96 L Hgb 11.2 L Hct 38.5 MCV 97 MCH 28.3 MCHC 29.1 L RDW Std Deviation 57.7 H Plt Count 375 D Neut % (Auto) 89 H Lymph % (Auto) 3 L [place] % (Auto) 5 Eos % (Auto) 1 Baso % (Auto) 1 Neut # (Auto) 14.7 H Lymph # (Auto) 0.6 L [place] # (Auto) 0.9 H Eos # (Auto) 0.1 Baso # (Auto) 0.1 Immature Gran # (Auto) 0.21 H Absolute Nucleated RBC 0.02 H Immature Gran % 1 H Nucleated RBC % 0 PT 10.9 INR 1.0 Puncture Site Left Radial ABG pH 7.28 L ABG pCO2 91 H* ABG pO2 91 ABG HCO3 43 H ABG O2 Saturation 97 ABG Base Excess 13 H VBG pH 7.55 VBG pCO2 42 VBG pO2 171 H VBG O2 Sat (Radha) 99 H VBG Base Excess 13 H FiO2 70 Sodium 137 Potassium 4.9 Chloride 98 Carbon Dioxide 33.4 H Anion Gap 6 L BUN 15 Creatinine 1.0 Estim Creat Clear Calc 51.6 L eGFR 54 L BUN/Creatinine Ratio 15 Glucose 218 H Calculated Osmolality 281 Calcium 10.3 Corrected Calcium 10.6 H Magnesium Total Bilirubin 0.3 AST 18 ALT 14 Alkaline Phosphatase 68 Ammonia 57 H Troponin I < 0.020 B-Natriuretic Peptide 165 H Total Protein 6.1 Albumin 3.6 Globulin 2.5 Albumin/Globulin Ratio 1.4 TSH 1.91 Thyroxine (T4) 5.7 Ur Collection Type Clean Catch Urine Color Yellow Urine Clarity Turbid A Urine pH 6.0 Ur Specific [place] 1.021 Urine Protein Trace Urine Glucose (UA) Negative Urine Ketones Negative Urine Blood Negative Urine Nitrite Positive Urine Bilirubin Negative Urine Urobilinogen (Auto) Negative Ur Leukocyte Esterase Positive Urine RBC 14 H Urine WBC 200 H Ur Squamous Epith Cells 30 H Calcium Oxalate Crystal 2+ A Urine Bacteria None Hyaline Casts < 1 Urine Yeast (Budding) Present A Ur Culture Indicated? Contaminated Salicylates < 3.0 Urine Opiates Screen Urine Fentanyl Screen Acetaminophen 2.1 L Ur Barbiturates Screen U Amphetamin/Meth Scrn U Benzodiazepines Scrn U Cocaine Metab Screen U Marijuana (THC) Screen 02/03/25 02/03/25 02/04/25 22:23 22:29 01:20 WBC RBC Hgb Hct MCV MCH MCHC RDW Std Deviation Plt Count Neut % (Auto) Lymph % (Auto) [place] % (Auto) Eos % (Auto) Baso % (Auto) Neut # (Auto) Lymph # (Auto) [place] # (Auto) Eos # (Auto) Baso # (Auto) Immature Gran # (Auto) Absolute Nucleated RBC Immature Gran % Nucleated RBC % PT INR Puncture Site Left Radial ABG pH 7.28 L ABG pCO2 91 H* ABG pO2 73 L ABG HCO3 43 H ABG O2 Saturation 94 ABG Base Excess 13 H VBG pH 7.39 VBG pCO2 68 H D VBG pO2 80 H D VBG O2 Sat (Radha) 97 VBG Base Excess 13 H FiO2 21 Sodium Potassium Chloride Carbon Dioxide Anion Gap BUN Creatinine Estim Creat Clear Calc eGFR BUN/Creatinine Ratio Glucose Calculated Osmolality Calcium Corrected Calcium Magnesium Total Bilirubin AST ALT Alkaline Phosphatase Ammonia Troponin I B-Natriuretic Peptide Total Protein Albumin Globulin Albumin/Globulin Ratio TSH Thyroxine (T4) Ur Collection Type Catheter Urine Color Yellow Urine Clarity Turbid A Urine pH 6.0 Ur Specific [place] 1.023 Urine Protein Trace Urine Glucose (UA) Negative Urine Ketones Negative Urine Blood Negative Urine Nitrite Positive Urine Bilirubin Negative Urine Urobilinogen (Auto) Negative Ur Leukocyte Esterase Positive Urine RBC 19 H Urine WBC 241 H Ur Squamous Epith Cells 32 H Calcium Oxalate Crystal Urine Bacteria Rare Hyaline Casts 1 Urine Yeast (Budding) Present A Ur Culture Indicated? Contaminated Salicylates Urine Opiates Screen Positive A Urine Fentanyl Screen Negative Acetaminophen Ur Barbiturates Screen Negative U Amphetamin/Meth Scrn Negative U Benzodiazepines Scrn Negative U Cocaine Metab Screen Negative U Marijuana (THC) Screen Negative 02/04/25 02/04/25 02/04/25 03:15 04:20 07:48 WBC 18.1 H RBC 3.61 L Hgb 10.2 L Hct 35.4 L MCV 98 MCH 28.3 MCHC 28.8 L RDW Std Deviation 58.9 H Plt Count 331 D Neut % (Auto) 89 H Lymph % (Auto) 5 L [place] % (Auto) 5 Eos % (Auto) 0 Baso % (Auto) 0 Neut # (Auto) 16.2 H Lymph # (Auto) 0.8 L [place] # (Auto) 0.9 H Eos # (Auto) 0.1 Baso # (Auto) 0.1 Immature Gran # (Auto) 0.12 H Absolute Nucleated RBC 0.02 H Immature Gran % 1 H Nucleated RBC % 0 PT INR Puncture Site Left Radial ABG pH 7.31 L ABG pCO2 86 H* ABG pO2 72 L ABG HCO3 43 H ABG O2 Saturation 94 ABG Base Excess 14 H VBG pH 7.43 VBG pCO2 64 H VBG pO2 88 H VBG O2 Sat (Radha) 97 VBG Base Excess 15 H FiO2 45 Sodium 140 Potassium 5.1 Chloride 96 L Carbon Dioxide > 40.0 H Anion Gap 4 L BUN 22 Creatinine 1.1 Estim Creat Clear Calc 47.5 L eGFR 48 L BUN/Creatinine Ratio 20 Glucose 264 H Calculated Osmolality 291 Calcium 10.2 Corrected Calcium 10.8 H Magnesium 2.3 Total Bilirubin 0.4 AST 14 ALT 12 Alkaline Phosphatase 61 Ammonia Troponin I B-Natriuretic Peptide Total Protein 5.8 Albumin 3.3 L Globulin 2.5 Albumin/Globulin Ratio 1.3 TSH 1.58 Thyroxine (T4) Ur Collection Type Urine Color Urine Clarity Urine pH Ur Specific [place] Urine Protein Urine Glucose (UA) Urine Ketones Urine Blood Urine Nitrite Urine Bilirubin Urine Urobilinogen (Auto) Ur Leukocyte Esterase Urine RBC Urine WBC Ur Squamous Epith Cells Calcium Oxalate Crystal Urine Bacteria Hyaline Casts Urine Yeast (Budding) Ur Culture Indicated? Salicylates Urine Opiates Screen Urine Fentanyl Screen Acetaminophen Ur Barbiturates Screen U Amphetamin/Meth Scrn U Benzodiazepines Scrn U Cocaine Metab Screen U Marijuana (THC) Screen ABG Interpretation ABG results: 02/03/25 02/03/25 02/03/25 20:30 21:14 22:29 ABG pH 7.28 L ABG pCO2 91 H* ABG pO2 91 ABG HCO3 43 H ABG O2 Saturation 97 ABG Base Excess 13 H VBG pH 7.55 7.39 VBG pCO2 42 68 H D VBG pO2 171 H 80 H D VBG Base Excess 13 H 13 H 02/04/25 02/04/25 02/04/25 01:20 03:15 07:48 ABG pH 7.28 L 7.31 L ABG pCO2 91 H* 86 H* ABG pO2 73 L 72 L ABG HCO3 43 H 43 H ABG O2 Saturation 94 94 ABG Base Excess 13 H 14 H VBG pH 7.43 VBG pCO2 64 H VBG pO2 88 H VBG Base Excess 15 H Quality Measures Quality Measures none Advance care planning discussed with:: other Assessment & Plan Assessment Current Active Medications: Generic Name Dose Route Start Last Admin Trade Name Freq PRN Reason Stop Dose Admin Acetaminophen 650 mg 02/04/25 03:33 Acetaminophen 325 Mg Tablet PO 03/06/25 03:32 Q6H PRN Fever >99.5 Acetaminophen 1,000 mg 02/04/25 03:41 Acetaminophen 500 Mg Tablet PO 03/06/25 03:40 Q6H PRN PAIN SCALE 1-3 (mild Albuterol/Ipratropium 3 ml 02/04/25 03:33 Albuterol/Ipratropium (Duoneb) Rt Sravani 3 Ml Nebu INH 03/06/25 03:32 Q2HR PRN SHORTNESS OF BREATH OR WHEEZE Dextrose 25 ml 02/04/25 03:41 Dextrose 50%-Water Inj 50 Ml Syringe IV 03/06/25 03:40 Q15MIN PRN BG 50-70 responsive npo pt Dextrose 50 ml 02/04/25 03:41 Dextrose 50%-Water Inj 50 Ml Syringe IV 03/06/25 03:40 Q15MIN PRN BG <50 OR BG <70 & pt unresponsive Docusate Sodium 100 mg 02/04/25 09:00 02/04/25 08:05 Docusate Sod 100 Mg Capsule PO 03/06/25 08:59 Not Given QDAY [facility] Protocol Glucagon 1 mg 02/04/25 03:41 Glucagon Inj 1 Mg Vial IM Q15MIN PRN BG <70, and no IV access Heparin Sodium (Porcine) 5,000 unit 02/04/25 06:00 02/04/25 17:05 Heparin Sod Inj 5000 Unit/Ml Vial SC 02/18/25 05:59 5,000 unit Q8HR LISETTE Administration Piperacillin/Tazobactam/Dextrose 3.375 gm in 50 mls @ 12.5 mls/hr 02/04/25 06:00 02/04/25 17:07 Zosyn IV 02/11/25 05:59 12.5 mls/hr Q8HR LISETTE Administration Protocol Azithromycin 500 mg/ Sodium 250 mls @ 250 mls/hr 02/05/25 09:00 Chloride IV 02/12/25 08:59 QDAY L[facility] Insulin Human Lispro 0 unit 02/04/25 06:00 02/04/25 13:56 Insulin Lispro (Admelog) 1 Unit/0.01 Ml Unit SC 03/06/25 05:59 Not Given Q6HR L[facility]ETTE Protocol Levothyroxine Sodium 100 mcg 02/04/25 06:00 02/04/25 07:25 Levothyroxine Sodium 100 Mcg Tablet PO 03/06/25 05:59 Not Given ACBR L[facility]ETTE Methylprednisolone Sodium Succinate 125 mg 02/04/25 16:45 02/04/25 17:04 Methylprednisolone Sod Succ 62.5 Mg/Ml 2ml Vial IVP 02/11/25 16:44 125 mg QDAY L[facility]ETTE Administration Metoprolol Succinate 25 mg 02/04/25 09:00 02/04/25 08:05 Metoprolol Succinate Xl 25 Mg Tabcr PO 03/06/25 08:59 Not Given QDAY [facility] Naloxegol 25 mg 02/04/25 09:00 02/04/25 08:04 Naloxegol Oxalate 25 Mg Tablet (Non-Formulary) PO 03/06/25 08:59 Not Given QDAY L[facility]TE Ondansetron HCl 4 mg 02/04/25 03:33 Ondansetron Inj 2 Mg/Ml Inj 2 Ml IVP 03/06/25 03:32 Q6H PRN NAUSEA OR VOMITING Protocol Pantoprazole Sodium 40 mg 02/04/25 09:00 02/04/25 10:49 Pantoprazole Inj 40 Mg Vial IVP 03/06/25 08:59 40 mg QDAY L[facility]ETTE Administration Pharmacy Consult 1 each 02/04/25 09:00 Vancomycin Pharmacy To Dose 1 Each Each IV 03/06/25 08:59 QDAY PRN PROTOCOL Sennosides 1 tab 02/04/25 09:00 02/04/25 08:04 Senna Tablet PO 03/06/25 08:59 Not Given QDAY L[facility]TE Protocol Plan 89-year-old female with past medical history of 89-year-old female with past medical history of hypothyroidism, recurrent UTIs, chronic respiratory failure, right breast cancer status post lumpectomy, bedbound, chronic back pain, type 2 diabetes, GERD, depression, pulmonary fibrosis ?, HFpEF who was brought to the ED after being found unresponsive at home. #Acute encephalopathy likely secondary to #Acute on chronic hypoxic and hypercapnic respiratory failure #Community-acquired pneumonia #?Pulmonary fibrosis Patient yesterday was AO x 3 however today became lethargic progressively during the day she developed a cough with productive phlegm and the caregiver was concern for aspiration events therefore did not put the patient on BiPAP patient later then became unresponsive and EMS was called. Patient was found to be desaturating on pulse ox at her home Chest x-ray showed bilateral lung opacities, pneumonia versus pulmonary edema in the differential Follow-up ABG showed improvement in an acid-base status we will continue on BiPAP at this time Blood cultures sent ? HS BiPAP and BiPap as needed ? Zosyn and Vancomycin ? DuoNebs as needed ? BiPAP at nighttime whenever she is taking long naps ? N.p.o. until swallow screen is passed ? Pulmonology Dr. Jerez is consulted and he recommended steroids, started on Solumedrol 125mg IV once daily ? Consider hospice referral #Acute decompensated heart failure exacerbation #HFpEF [65%] Presented with clinical signs such as shortness of breath, bilateral leg swelling, CXR: Bilateral lung opacities, pulmonary edema BNP: 163 Last echo: December 2024: Normal left ventricular size and function. Approximate ejection fraction is 65%. Trace mitral and trace tricuspid regurgitation. No wall motion abnormalities noted. ? IV Lasix 40 twice daily, held for now as patient does not appears to be fluid overloaded ? Metoprolol 25 mg daily ? Keep K>4, Mg>2 ? Provide oxygen as required ? Strict I's and O's ? Fluid restriction #Constipation Patient has not had a bowel movement in 8 days and prior to that did not have a bowel movement for multiple days from last admission Patient takes [place]'s chronically for chronic back pain could be contributing to constipation CT shows fecal impaction ? Senna ? Colace ? Movantik ? Consider enema or manual disimpaction once acute illness improves #Diabetes mellitus type 2 Last A1c: December 2024, 7.1 ? SSI ? Hypoglycemia protocol in place ? Lantus 10 units daily #Hypothyroidism ? Resume levothyroxine as taken at home Health Maintenance: Disposition: Telemetry, IV antibiotics, IV diuresis Fluids: None Feeding: N.p.o. till swallow screen Thrombo prophylaxis: Heparin Gastric Ulcer prophylaxis: Pantoprazole CODE STATUS: Full code Patient plan of care was discussed with the attending physician, Dr. Gonzalez and senior resident Dr. Suzie Cronin, PGY1 Attending Provider Attestation/Addendum Kaylynn Núñez, DO, attest that I was physically present for the mackenzie portions of the service and evaluated the patient with the resident and I reviewed and discussed the case with the resident and agree with the resident's findings and plans of care as documented above Patient seen and evaluated this AM. Patient remains on BiPap and only answers to yes/no questions appropriately. She remains somnolent. Patient was recently admitted for similar issue and family had stated they were unable to have pulmonology evaluate patient. CT chest was reviewed with pulmonology today and recommneds 1mg/kg of IV steroids due to concern for hypersensitivity pneumonitis. There is also concern for chronic aspiration due to fluid levels noted in esophagus. Will start solumedrol 125mg IV daily. VBG shows improvement of CO2 retention. Patient will need to continue with BiPap at rest. Continue to monitor mental status closely.
[2025-02-04] MEDS: INSULIN LISPRO (AdmeLOG) 1 UNIT/0.01 ML UNIT SC (23:27)
[2025-02-05] VITALS (10 sets, daily range): BP systolic 113–135; BP diastolic 56–87; PULSE 63–106; RESP 12–73; TEMP 36.2–36.8; O2SAT 91–100; BMI 29.0
[2025-02-05] MEDS: INSULIN LISPRO (AdmeLOG) 1 UNIT/0.01 ML UNIT SC ×4 (05:52→21:00)
[2025-02-05] MEDS: HEPARIN SOD INJ 5000 UNIT/ML VIAL SC ×3 (05:54→21:02)
[2025-02-05] MEDS: PIPER/TAZO 3.375 GM PREMIX 3.375 GM/50 ML BAG IV ×3 (05:54→21:02)
[2025-02-05] MEDS: LEVOTHYROXINE SODIUM 100 MCG TABLET PO (05:55)
[2025-02-05 06:15] LABS: Basophils % (Auto) 0 % (0-2.5); Eosinophils % (Auto) 0 % (0-10); Hematocrit 37.6 % (36.0-46.0); Hemoglobin 10.7 g/dL (12.0-16.0); Immature Granulocytes % (Auto) 1 % (0-0); Immature Granulocytes Auto 0.12 Thou/mm3 (0.00-0.00); Lymphocytes # (Auto) 0.6 Thou/mm3 (1.0-4.8); Lymphocytes % (Auto) 5 % (10-50); Mean Corpuscular HGB Conc 28.5 g/dl (31.0-37.0); Mean Corpuscular Hemoglobin 27.9 pg (25.0-35.0); Mean Corpuscular Volume 98 fL (80-100); Monocytes # (Auto) 0.2 Thou/mm3 (0.0-0.8); Monocytes % (Auto) 2 % (0-12); Neutrophils # (Auto) 10.4 Thou/mm3 (1.8-7.7); Neutrophils % (Auto) 92 % (37-80); Nucleated Red Blood Cell % 0 /100 WBC (0); Platelet Count 335 Thou/mm3 (140-440); RDW Standard Deviation 58.6 fL (36.4-46.3); Red Blood Count 3.83 Miln/mm3 (4.00-5.20); White Blood Count 11.3 Thou/mm3 (3.6-11.0)
[2025-02-05 06:41] LABS: Alanine Aminotransferase 13 U/L (10-49); Albumin, Serum 3.5 gm/dL (3.4-4.8); Albumin/Globulin Ratio 1.3 (1.2-2.2); Alkaline Phosphatase 62 U/L (46-116); Anion Gap 7 (7-16); Aspartate Amino Transferase 19 U/L (0-34); BUN/Creatinine Ratio 19 Ratio (12-20); Bilirubin,Total 0.3 mg/dL (0.3-1.2); Blood Urea Nitrogen 19 mg/dL (9-23); Calcium 10.1 mg/dL (8.3-10.6); Calcium (Corrected) 10.5 mg/dL (8.5-10.1); Carbon Dioxide 37.2 mMol/L (20.0-31.0); Chloride 96 mMol/L (98-107); Estimated Creatinine Clearance 49.2 mL/min (>60); Globulin 2.6 gm/dL (2.3-3.5); Glucose 258 mg/dL (74-106); Magnesium 2.4 mg/dL (1.6-2.6); Osmolality,Calculated 290 (275-295); Phosphorous 3.2 mg/dL (2.4-5.1); Potassium 5.5 mMol/L (3.4-5.1); Sodium 140 mMol/L (136-145); Total Protein 6.1 gm/dL (5.7-8.2); eGFR 54 See Note
[2025-02-05] MEDS: INSULIN GLARGINE (Lantus) 5 UNIT/0.05 ML (PER 5 UNITS) 6 UNIT SC (07:55)
[2025-02-05] MEDS: NALOXEGOL OXALATE 25 MG TABLET (NON-FORMULARY) PO (07:55)
[2025-02-05] MEDS: SOD POLYSTYRENE SULFON SUSP 15 GM/60 ML BTL 30 GM PO (08:00)
[2025-02-05] MEDS: METOPROLOL SUCCINATE XL 25 MG TABCR PO (08:00)
[2025-02-05] MEDS: MethylPREDNISolone SOD SUCC 62.5 MG/ML 2ML VIAL 125 MG IVP (08:00)
[2025-02-05] MEDS: SENNA TABLET 1 TAB PO (08:01)
[2025-02-05] MEDS: DOCUSATE SOD 100 MG CAPSULE PO (08:01)
[2025-02-05] MEDS: AZITHROMYCIN INJ 500 MG in SODIUM CHLORIDE 0.9% 250 ML 250 ML 250 MG IV (08:01)
[2025-02-05] MEDS: PANTOPRAZOLE INJ 40 MG VIAL IVP (08:01)
[2025-02-05] MEDS: VANCOMYCIN/NS 750 MG IVPB 750 MG/150 ML BAG 120 MG IV (09:27)
[2025-02-05] MEDS: MethylPREDNISolone SOD SUCC 62.5 MG/ML 2ML VIAL 93.75 MG IVP (09:27)
--- NOTE | 2025-02-05 12:55 | PD.PUCONS ---
HPI Pulmonology Consult Data of Consult Requesting Physician: Kaylynn Gonzalez DO Primary Care Provider: Physician No Primary/Family Consult Narrative History of present illness: Patient is an 89-year-old female with past medical history significant for CHF, COPD, pulmonary fibrosis, type 2 diabetes chronic debility who presented with acute on chronic hypoxic/hypercapnic respiratory failure with the need for noninvasive positive pressure ventilation and associated metabolic encephalopathy. Patient with known history of pulmonary fibrosis on chronic oxygen therapy with nocturnal BiPAP which she uses. Patient and family unaware of settings on their current machine. However does required increased oxygen and intervals between her hospitalizations. Previously treated for potential infection with no significant improvement though she does improvement during hospital course likely due to diuresis and antibiotics. 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 Patient with no recent fever, chills, or night sweats. Weight remains stable at this time. She is chronically bedbound and has been for multiple years now. Difficult to discern dyspnea with exertion due to this. No prior smoking history. Patient with no significant family history of lung disease. Patient CT was reviewed with resident team, significant findings of lack of peripheral honeycombing in the lower lobes, distribution mostly upper lobe and central bronchovascular with increased interstitial markings likely fine fibrosis versus groundglass secondary to active inflammatory component as well as significant mosaicism even on respiratory film. cc:: cc: Kaylynn Gonzalez DO Review of Systems Review of Systems Narrative Review of Systems: Pertinent review of systems completed with significant findings included in HPI above Past Medical History Past Medical History Comments PMH COMMENT: Past medical history, past surgical history, family history, and social history completed with pertinent findings included in HPI above. Meds Home Medications and Allergies Home Medications ?Medication ?Instructions ?Recorded ?Confirmed ?Type levothyroxine 75 mcg tablet 100 mcg PO QAM 04/18/20 02/05/25 History methenamine hippurate 1 gram tablet 1 g PO BID 04/18/20 02/05/25 History omeprazole 40 mg capsule,delayed 40 mg PO QDAY 06/04/21 02/05/25 History release rosuvastatin 5 mg tablet 5 mg PO HS 06/04/21 02/05/25 History venlafaxine 150 mg 150 mg PO HS 06/04/21 02/05/25 History capsule,extended release 24 hr furosemide 40 mg tablet 40 mg PO QAM 08/27/22 02/05/25 History ascorbic acid (vitamin C) 500 mg 500 mg PO BID 03/19/24 02/05/25 History tablet (Vitamin C) aspirin 81 mg tablet 81 mg PO QDAY 03/19/24 02/05/25 History magnesium 500 mg tablet 1,000 mg PO QDAY 03/19/24 02/05/25 History calcium 600 mg (as 0.5 tab PO QDAY 12/27/24 02/05/25 History carbonate)-vitamin D3 5 mcg (200 unit) tablet (Calcium 600 + D(3)) cranberry 500 mg capsule 1,000 mg PO QDAY 12/27/24 02/05/25 History hydrocodone 10 mg-acetaminophen 1 tab PO Q12H PRN pain 12/27/24 02/05/25 History 325 mg tablet lactobacillus comb no.10 20 25,000 mmu cells PO QDAY 12/27/24 02/05/25 History billion cell capsule (Probiotic) pramipexole 0.5 mg tablet 1 mg PO HS 12/27/24 02/05/25 History insulin glargine 100 unit/mL 20 unit subcut HS 02/05/25 02/05/25 History subcutaneous solution (Lantus U-100 Insulin) Allergies Allergy/AdvReac Type Severity Reaction Status Date / Time cefuroxime Allergy Intermediate Swelling Verified 12/27/24 11:13 of Lip/Tongue/Throat zinc Allergy Intermediate Rash Verified 12/27/24 11:13 iodine Allergy Unknown Verified 12/27/24 11:13 shellfish derived Allergy Unknown Verified 12/27/24 11:13 Sulfa (Sulfonamide Allergy Unknown Verified 12/27/24 11:13 Antibiotics) Exam Vital Signs Temp Pulse Resp BP Pulse Ox O2 Del Method O2 Flow Rate 97.0 F 95 21 H 112/56 L 97 Nasal Cannula 3 02/07/25 12:00 02/07/25 12:17 02/07/25 12:00 02/07/25 12:17 02/07/25 12:00 02/07/25 12:00 02/07/25 12:00 FiO2 45 02/06/25 23:22 Narrative Exam GEN: NAD, AAOX3 HEENT: EOMI, PERRL NECK:-JVD CHEST: Mild accessory muscle use CVS: S1/S2+ RRR PULM: Bilateral crackes throughout ABD: soft, NT, ND, BS+ EXT: No peripheral edema or clubbing NEURO: Diffuse lower extremity weakness, nonfocal upper extremities and CN intact PSYCH: Appropriate mood/ affect Physical Exam Completion Physical Exam Complete?: Yes Results - [employer] Coord[employer] Labs 02/07/25 04:49 02/07/25 04:49 Labs: Short CBC 02/07/25 Range/Units 04:49 WBC 10.2 (3.6-11.0) Thou/mm3 Hgb 9.3 L (12.0-16.0) g/dL Hct 31.5 L (36.0-46.0) % Plt Count 330 (140-440) Thou/mm3 BMP 02/07/25 04:49 Sodium 140 Potassium 3.7 Chloride 94 L Carbon Dioxide > 40.0 H BUN 23 Creatinine 1.2 Glucose 251 H Calcium 9.9 ABG Interpretation ABG results: 02/03/25 02/03/25 02/03/25 20:30 21:14 22:29 ABG pH 7.28 L ABG pCO2 91 H* ABG pO2 91 ABG HCO3 43 H ABG O2 Saturation 97 ABG Base Excess 13 H VBG pH 7.55 7.39 VBG pCO2 42 68 H D VBG pO2 171 H 80 H D VBG Base Excess 13 H 13 H 02/04/25 02/04/25 02/04/25 01:20 03:15 07:48 ABG pH 7.28 L 7.31 L ABG pCO2 91 H* 86 H* ABG pO2 73 L 72 L ABG HCO3 43 H 43 H ABG O2 Saturation 94 94 ABG Base Excess 13 H 14 H VBG pH 7.43 VBG pCO2 64 H VBG pO2 88 H VBG Base Excess 15 H 02/06/25 02/07/25 08:11 06:10 ABG pH 7.35 7.36 ABG pCO2 75 H* D 81 H* ABG pO2 88 125 H D ABG HCO3 41 H 45 H ABG O2 Saturation 96 98 ABG Base Excess 14 H 17 H VBG pH VBG pCO2 VBG pO2 VBG Base Excess Assessment & Plan Additional Assessment Additional Assessment: Patient is 89-year-old female with 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 Patient with 3 recurrent admissions in the recent few weeks. She has significant CO2 retention suggesting advanced restrictive lung process. 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 Given clinical history, favor chronic hypersensitivity pneumonitis. 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 At this point groundglass opacities may be related to underlying heart failure though she appears clinically euvolemic. More likely etiology is inflammatory versus fine fibrosis given her underlying disease. I favor use of ongoing steroids with plan for slow taper. She has a history of prior breast cancer though it was remote, would favor avoiding use of cell cycle inhibitors at this point. Slow taper of prednisone can be done over the course of 6 months. However, she does have significant debility and with recurrent admissions there is high likelihood of further decompensation and increased risk of morbidity/mortality in the next 6 months. This was all discussed in detail with the patient's family at bedside, as represented by her [id number]. Her son who is the product of contact typically has not been available due to the management of of the family ranch. Though he has been remain kept in the loop by the medicine team. Patient does have primary care follow-up we will try to arrange ongoing management as there is no local pulmonology at the moment. I remain available by telephone and contact information has been given to them to ensure that long-term management of her prednisone taper can be done. We also did discuss risk of infection including pulmonary coccidioidomycosis though she has been a lifelong resident of [facility] and has likely had prior exposure and infection with reactivation unlikely. I will continue to follow along with you I remain available for any further questions. Additional Plan Additional Plan: PLAN: See MD orders and discussion above. Will continue supportive care of the organ system problems, diagnoses, and failures noted above. [A central line continues to be necessary for infusion of medications and IV fluids, it is to be removed when other adequate venous access is accomplished.] [Cannot be safely managed without restraints as potential for harm secondary to inadvertent movement and loss of tubes and lines outweighs the burdens of restraint.] This patient is critically ill and required [] minutes of my time to provide documentation, evaluate, manage and maintain or prevent deterioration of the organ systems and problems noted above. This critical care time does not include time I spent performing procedures that are reported separately. [If almodovar catheter present, it remains necessary to monitor urine output continuously, and/or divert urine from the skin. It will be removed per policy when it is not needed for these purposes.] Provider Notation Provider Notation: Although this document has been carefully reviewed, there may still be some phonetic and other typographical errors. These errors are purely grammatical due to imperfections in the software program and should not be construed in any way to compromise the substance of the patient's medical care during this visit. Thank you for the opportunity and privilege in assisting you with this patient's care and management.
--- NOTE | 2025-02-05 13:51 | PC.SS ---
This is 89-year-old, , single female who presented to the ED due to suffering from altered mental status. Patient was using a BiPAP and appeared asleep. All questions were answered by caregiver, Albina. Patient resides at home and has 24/7 care by caregivers. Patient is bedbound. She has a BiPAP, uses 2LO2, a hospital bed, sergio lift, walker, wheelchair. Patient's medical decision maker is her nephew, Jg. Patient's PCP is Dr. Martínez. Patient's it programmer is Dr. De Paz. Patient has a POLST. When medically clear, patient will return with [facility]. Patient will need ambulance transportation to return. Discharge plan: return home with [facility]. Patient will need ambulance transportation.
--- NOTE | 2025-02-05 14:31 | ESPR_ITS ---
Documentation for date of: 02/05/25 Subjective Subjective Interval history: Patient is seen and examined at bedside No acute overnight events and patient is on BiPAP throughout the night Patient denies any further complaints Vitals are stable and patient is saturating around 92% on nasal cannula 2 L, which is her baseline Labs are significant for potassium 5.5 which 1 dose of Kayexalate is given Started on nighttime insulin glargine. Discontinued vancomycin and azithromycin Consulted supervisor transferring and boxing, Dr. Jerez in view of ILD, will continue steroids as per his recommendation Goals of care discussion pending with the nephew Exam Vital Signs Temp Pulse Resp BP Pulse Ox O2 Del Method O2 Flow Rate 97.2 F 63 18 135/74 H 98 Nasal Cannula 2 02/05/25 12:00 02/05/25 12:00 02/05/25 12:00 02/05/25 12:00 02/05/25 12:00 02/05/25 04:00 02/05/25 08:25 FiO2 45 02/05/25 10:29 Narrative Exam General: Alert and able to maintain a conversation. HEENT: Normocephalic, atraumatic, mucous membranes moist. Heart: Regular rate and rhythm, no murmurs. Lungs: Bilateral fine inspiratory crackles are heard. Bilateral bronchial breath sounds heard Abdomen: Soft, nondistended, nontender, positive bowel sounds. ?No guarding or rebound tenderness. Neurologic: no gross neurological deficit, and patient able to move all 4 extremities. Extremities: No edema. Skin: No rash or ecchymoses. Objective Labs 02/05/25 05:30 02/05/25 05:30 Labs: Laboratory Results - last 24 hr 02/05/25 05:30 WBC 11.3 H D RBC 3.83 L Hgb 10.7 L Hct 37.6 MCV 98 MCH 27.9 MCHC 28.5 L RDW Std Deviation 58.6 H Plt Count 335 Neut % (Auto) 92 H Lymph % (Auto) 5 L [place] % (Auto) 2 Eos % (Auto) 0 Baso % (Auto) 0 Neut # (Auto) 10.4 H Lymph # (Auto) 0.6 L [place] # (Auto) 0.2 Eos # (Auto) 0.0 Baso # (Auto) 0.0 Immature Gran # (Auto) 0.12 H Absolute Nucleated RBC 0.00 Immature Gran % 1 H Nucleated RBC % 0 Sodium 140 Potassium 5.5 H Chloride 96 L Carbon Dioxide 37.2 H Anion Gap 7 BUN 19 Creatinine 1.0 Estim Creat Clear Calc 49.2 L eGFR 54 L BUN/Creatinine Ratio 19 Glucose 258 H Calculated Osmolality 290 Calcium 10.1 Corrected Calcium 10.5 H Phosphorus 3.2 Magnesium 2.4 Total Bilirubin 0.3 AST 19 ALT 13 Alkaline Phosphatase 62 Total Protein 6.1 Albumin 3.5 Globulin 2.6 Albumin/Globulin Ratio 1.3 ABG Interpretation ABG results: 02/03/25 02/03/25 02/03/25 20:30 21:14 22:29 ABG pH 7.28 L ABG pCO2 91 H* ABG pO2 91 ABG HCO3 43 H ABG O2 Saturation 97 ABG Base Excess 13 H VBG pH 7.55 7.39 VBG pCO2 42 68 H D VBG pO2 171 H 80 H D VBG Base Excess 13 H 13 H 02/04/25 02/04/25 02/04/25 01:20 03:15 07:48 ABG pH 7.28 L 7.31 L ABG pCO2 91 H* 86 H* ABG pO2 73 L 72 L ABG HCO3 43 H 43 H ABG O2 Saturation 94 94 ABG Base Excess 13 H 14 H VBG pH 7.43 VBG pCO2 64 H VBG pO2 88 H VBG Base Excess 15 H Quality Measures Quality Measures none Advance care planning discussed with:: patient Assessment & Plan Assessment Current Active Medications: Generic Name Dose Route Start Last Admin Trade Name Freq PRN Reason Stop Dose Admin Acetaminophen 650 mg 02/04/25 03:33 Acetaminophen 325 Mg Tablet PO 03/06/25 03:32 Q6H PRN Fever >99.5 Acetaminophen 1,000 mg 02/04/25 03:41 Acetaminophen 500 Mg Tablet PO 03/06/25 03:40 Q6H PRN PAIN SCALE 1-3 (mild Albuterol/Ipratropium 3 ml 02/04/25 03:33 Albuterol/Ipratropium (Duoneb) Rt Sravani 3 Ml Nebu INH 03/06/25 03:32 Q2HR PRN SHORTNESS OF BREATH OR WHEEZE Dextrose 25 ml 02/04/25 03:41 Dextrose 50%-Water Inj 50 Ml Syringe IV 03/06/25 03:40 Q15MIN PRN BG 50-70 responsive npo pt Dextrose 50 ml 02/04/25 03:41 Dextrose 50%-Water Inj 50 Ml Syringe IV 03/06/25 03:40 Q15MIN PRN BG <50 OR BG <70 & pt unresponsive Docusate Sodium 100 mg 02/04/25 09:00 02/05/25 08:01 Docusate Sod 100 Mg Capsule PO 03/06/25 08:59 100 mg QDAY LISETTE Administration Protocol Glucagon 1 mg 02/04/25 03:41 Glucagon Inj 1 Mg Vial IM Q15MIN PRN BG <70, and no IV access Heparin Sodium (Porcine) 5,000 unit 02/04/25 06:00 02/05/25 13:38 Heparin Sod Inj 5000 Unit/Ml Vial SC 02/18/25 05:59 5,000 unit Q8HR LISETTE Administration Piperacillin/Tazobactam/Dextrose 3.375 gm in 50 mls @ 12.5 mls/hr 02/04/25 06:00 02/05/25 13:37 Zosyn IV 02/11/25 05:59 12.5 mls/hr Q8HR LISETTE Administration Protocol Insulin Glargine 10 unit 02/05/25 21:00 Insulin Glargine (Lantus) 5 Unit/0.05 Ml (Per 5 Units) SC 03/07/25 20:59 HS LISETTE Insulin Human Lispro 0 unit 02/05/25 11:30 02/05/25 12:02 Insulin Lispro (Admelog) 1 Unit/0.01 Ml Unit SC 03/07/25 11:29 2 unit ACHS LISETTE Administration Protocol Levothyroxine Sodium 100 mcg 02/04/25 06:00 02/05/25 05:55 Levothyroxine Sodium 100 Mcg Tablet PO 03/06/25 05:59 100 mcg ACBR LISETTE Administration Methylprednisolone Sodium Succinate 93.75 mg 02/05/25 09:00 02/05/25 09:27 Methylprednisolone Sod Succ 62.5 Mg/Ml 2ml Vial IVP 02/12/25 08:59 93.75 mg QDAY LISETTE Administration Metoprolol Succinate 25 mg 02/04/25 09:00 02/05/25 08:00 Metoprolol Succinate Xl 25 Mg Tabcr PO 03/06/25 08:59 25 mg QDAY LISETTE Administration Naloxegol 25 mg 02/05/25 08:00 02/05/25 07:55 Naloxegol Oxalate 25 Mg Tablet (Non-Formulary) PO 03/06/25 08:59 25 mg ACBR LISETTE Administration Ondansetron HCl 4 mg 02/04/25 03:33 Ondansetron Inj 2 Mg/Ml Inj 2 Ml IVP 03/06/25 03:32 Q6H PRN NAUSEA OR VOMITING Protocol Pantoprazole Sodium 40 mg 02/04/25 09:00 02/05/25 08:01 Pantoprazole Inj 40 Mg Vial IVP 03/06/25 08:59 40 mg QDAY LISETTE Administration Sennosides 1 tab 02/04/25 09:00 02/05/25 08:01 Senna Tablet PO 03/06/25 08:59 1 tab QDAY LISETTE Administration Protocol Plan 89-year-old female with past medical history of 89-year-old female with past medical history of hypothyroidism, recurrent UTIs, chronic respiratory failure, right breast cancer status post lumpectomy, bedbound, chronic back pain, type 2 diabetes, GERD, depression, pulmonary fibrosis ?, HFpEF who was brought to the ED after being found unresponsive at home. 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 Patient was found to be desaturating on pulse ox at her home Chest x-ray showed bilateral lung opacities, pneumonia versus pulmonary edema in the differential Follow-up ABG showed improvement in an acid-base status we will continue on BiPAP at this time Blood cultures sent ? HS BiPAP and BiPap as needed ? Discontinued vancomycin, azithromycin - will continue zosyn for now ? DuoNebs as needed ? BiPAP at nighttime whenever she is taking long naps ? Pulmonology Dr. Jerez is consulted and he recommended steroids, started on Solumedrol 93.75 mg IV once daily #HFpEF [65%] Presented with clinical signs such as shortness of breath, bilateral leg swelling, CXR: Bilateral lung opacities, pulmonary edema BNP: 163 Last echo: December 2024: Normal left ventricular size and function. Approximate ejection fraction is 65%. Trace mitral and trace tricuspid regurgitation. No wall motion abnormalities noted. ? IV Lasix 40 twice daily, held for now as patient does not appears to be fluid overloaded ? Metoprolol 25 mg daily ? Keep K>4, Mg>2 ? Provide oxygen as required ? Strict I's and O's ? Fluid restriction #Constipation Patient has not had a bowel movement in 8 days and prior to that did not have a bowel movement for multiple days from last admission Patient takes [place]'s chronically for chronic back pain could be contributing to constipation CT shows fecal impaction ? Senna ? Colace ? Movantik ? Consider enema or manual disimpaction once acute illness improves #Diabetes mellitus type 2 Last A1c: December 2024, 7.1 ? SSI ? Hypoglycemia protocol in place ? Lantus 10 units daily #Hypothyroidism ? Resume levothyroxine as taken at home Health Maintenance: Disposition: Telemetry, IV antibiotics, IV diuresis Fluids: None Feeding: Regular diet Thrombo prophylaxis: Heparin Gastric Ulcer prophylaxis: Pantoprazole CODE STATUS: Full code Patient plan of care was discussed with the attending physician, Dr. Carlos Cronin, PGY1 Attending Provider Attestation/Addendum I, Kaylynn Gonzalez, DO, attest that I was physically present for the mackenzie portions of the service and evaluated the patient with the resident and I reviewed and discussed the case with the resident and agree with the resident's findings and plans of care as documented above Patient seen and evaluated this AM. She is much more alert and answers questions appropriately. She often falls asleep throughout the day and will need BiPap anytime at rest. Abdulkadir was at bedside this afternoon to speak with pulmonology regarding pt's overall ILD and prognosis. Given advancement of ILD, it is recommended by pulmonology to continue with steroids and pursue long taper. However, it was emphasized that the advanced disease at present cannot be reversed. Steroids may be able to decrease inflammation, although it may also cause patient to have worsening generalized weakness and increase immunosuppression. Abdulkadir was understanding that the patient's overall prognosis is guarded and also interested in palliative care since patient has been readmitted for the third time in the past [address] hospice consult to speak with abdulkadir. We will continue with current management at this time otherwise. Will obtain ABG in AM.
[2025-02-05] MEDS: ALBUTEROL/IPRATROPIUM (Duoneb) RT SOL 3 ML NEBU INH ×2 (16:06→22:30)
--- NOTE | 2025-02-05 17:41 | PD.PUPROG ---
Documentation for date of: 02/05/25 Subjective Critical Care Note Critical care time (min.): 0 Exam Vital Signs Temp Pulse Resp BP Pulse Ox O2 Del Method O2 Flow Rate 97.2 F 106 H 31 H 135/74 H 100 Nasal Cannula 2 02/05/25 12:00 02/05/25 16:07 02/05/25 16:07 02/05/25 12:00 02/05/25 16:07 02/05/25 04:00 02/05/25 16:07 FiO2 45 02/05/25 10:29 Narrative Exam GEN: NAD, AAOX3 HEENT: EOMI, PERRL NECK:-JVD CHEST: Mild accessory muscle use CVS: S1/S2+ RRR PULM: Bilateral crackes throughout ABD: soft, NT, ND, BS+ EXT: No peripheral edema or clubbing NEURO: Diffuse lower extremity weakness, nonfocal upper extremities and CN intact PSYCH: Appropriate mood/ affect Physical Exam Completion Physical Exam Complete?: Yes Objective - Software Solutions Architect Labs 02/07/25 04:49 02/07/25 04:49 Labs: Laboratory Results - last 24 hr 02/05/25 05:30 WBC 11.3 H D RBC 3.83 L Hgb 10.7 L Hct 37.6 MCV 98 MCH 27.9 MCHC 28.5 L RDW Std Deviation 58.6 H Plt Count 335 Neut % (Auto) 92 H Lymph % (Auto) 5 L [place] % (Auto) 2 Eos % (Auto) 0 Baso % (Auto) 0 Neut # (Auto) 10.4 H Lymph # (Auto) 0.6 L [place] # (Auto) 0.2 Eos # (Auto) 0.0 Baso # (Auto) 0.0 Immature Gran # (Auto) 0.12 H Absolute Nucleated RBC 0.00 Immature Gran % 1 H Nucleated RBC % 0 Sodium 140 Potassium 5.5 H Chloride 96 L Carbon Dioxide 37.2 H Anion Gap 7 BUN 19 Creatinine 1.0 Estim Creat Clear Calc 49.2 L eGFR 54 L BUN/Creatinine Ratio 19 Glucose 258 H Calculated Osmolality 290 Calcium 10.1 Corrected Calcium 10.5 H Phosphorus 3.2 Magnesium 2.4 Total Bilirubin 0.3 AST 19 ALT 13 Alkaline Phosphatase 62 Total Protein 6.1 Albumin 3.5 Globulin 2.6 Albumin/Globulin Ratio 1.3 Assessment & Plan Provider Notation Provider Notation: Although this document has been carefully reviewed, there may still be some phonetic and other typographical errors. These errors are purely grammatical due to imperfections in the software program and should not be construed in any way to compromise the substance of the patient's medical care during this visit. Thank you for the opportunity and privilege in assisting you with this patient's care and management.
[2025-02-05] MEDS: INSULIN GLARGINE (Lantus) 5 UNIT/0.05 ML (PER 5 UNITS) 10 UNIT SC (20:59)
[2025-02-06] VITALS (12 sets, daily range): BP systolic 99–116; BP diastolic 54–64; PULSE 71–108; RESP 15–26; TEMP 36–36.7; O2SAT 92–100; BMI 29.0
[2025-02-06] MEDS: LEVOTHYROXINE SODIUM 100 MCG TABLET PO (05:13)
[2025-02-06] MEDS: HEPARIN SOD INJ 5000 UNIT/ML VIAL SC ×3 (05:13→21:39)
[2025-02-06] MEDS: NALOXEGOL OXALATE 25 MG TABLET (NON-FORMULARY) PO (05:14)
[2025-02-06] MEDS: PIPER/TAZO 3.375 GM PREMIX 3.375 GM/50 ML BAG IV ×3 (05:14→21:39)
[2025-02-06 06:06] LABS: Basophils % (Auto) 0 % (0-2.5); Eosinophils % (Auto) 0 % (0-10); Hematocrit 29.7 % (36.0-46.0); Hemoglobin 8.9 g/dL (12.0-16.0); Immature Granulocytes % (Auto) 1 % (0-0); Immature Granulocytes Auto 0.09 Thou/mm3 (0.00-0.00); Lymphocytes # (Auto) 0.7 Thou/mm3 (1.0-4.8); Lymphocytes % (Auto) 5 % (10-50); Mean Corpuscular Hemoglobin 28.2 pg (25.0-35.0); Mean Corpuscular Volume 94 fL (80-100); Monocytes # (Auto) 0.7 Thou/mm3 (0.0-0.8); Monocytes % (Auto) 6 % (0-12); Neutrophils # (Auto) 10.8 Thou/mm3 (1.8-7.7); Neutrophils % (Auto) 88 % (37-80); Nucleated Red Blood Cell # 0.03 Thou/mm3 (0.00-0.00); Nucleated Red Blood Cell % 0 /100 WBC (0); Platelet Count 323 Thou/mm3 (140-440); RDW Standard Deviation 55.3 fL (36.4-46.3); Red Blood Count 3.16 Miln/mm3 (4.00-5.20); White Blood Count 12.3 Thou/mm3 (3.6-11.0)
[2025-02-06 06:26] LABS: Alanine Aminotransferase 11 U/L (10-49); Albumin, Serum 3.3 gm/dL (3.4-4.8); Albumin/Globulin Ratio 1.5 (1.2-2.2); Alkaline Phosphatase 51 U/L (46-116); Anion Gap 6 (7-16); Aspartate Amino Transferase 10 U/L (0-34); BUN/Creatinine Ratio 22 Ratio (12-20); Bilirubin,Total 0.2 mg/dL (0.3-1.2); Blood Urea Nitrogen 22 mg/dL (9-23); Calcium 9.5 mg/dL (8.3-10.6); Calcium (Corrected) 10.1 mg/dL (8.5-10.1); Carbon Dioxide > 40.0 mMol/L (20.0-31.0); Chloride 93 mMol/L (98-107); Estimated Creatinine Clearance 49.2 mL/min (>60); Globulin 2.2 gm/dL (2.3-3.5); Glucose 223 mg/dL (74-106); Magnesium 2.3 mg/dL (1.6-2.6); Osmolality,Calculated 287 (275-295); Phosphorous 2.5 mg/dL (2.4-5.1); Potassium 3.6 mMol/L (3.4-5.1); Sodium 139 mMol/L (136-145); Total Protein 5.5 gm/dL (5.7-8.2); eGFR 54 See Note
[2025-02-06] MEDS: INSULIN LISPRO (AdmeLOG) 1 UNIT/0.01 ML UNIT SC ×4 (07:29→21:37)
[2025-02-06] MEDS: ALBUTEROL/IPRATROPIUM (Duoneb) RT SOL 3 ML NEBU INH ×3 (07:53→23:07)
[2025-02-06 08:18] LABS: Allen Test Performed/OK; Base Excess 14 (-3-3); HCO3 41 mEq/L (20-26); Inspired O2, VO2 Liters 3 L/min; Inspired Oxygen, FIO2 21 %; O2 Saturation 96 % (91-98); PCO2 75 mmHg (32.0-48.0); PO2 88 mmHg (83-108); Puncture Site Left Brachial; pH, Arterial 7.35 (7.35-7.45)
[2025-02-06] MEDS: DOCUSATE SOD 100 MG CAPSULE PO (08:55)
[2025-02-06] MEDS: METOPROLOL SUCCINATE XL 25 MG TABCR PO (08:56)
[2025-02-06] MEDS: MethylPREDNISolone SOD SUCC 62.5 MG/ML 2ML VIAL 93.75 MG IVP (08:56)
[2025-02-06] MEDS: SENNA TABLET 1 TAB PO (08:56)
[2025-02-06] MEDS: PANTOPRAZOLE 40 MG TABLET PO (08:56)
--- NOTE | 2025-02-06 10:20 | PD.PUPROG ---
Documentation for date of: 02/06/25 Subjective Subjective Interval history: Patient accompanied by [id number] and caregiver this morning. Patient doing well with nocturnal BiPAP and back on nasal cannula this morning. She reports that her breathing is better. No significant events overnight. Follow-up ABG this morning shows adequate compensation for chronic CO2 retention in setting of her mixed physiology. Patient tolerating prednisone well. They do have a swab for home which needs to be cleaned and pads need to be changed. There is no ducting in the house. Patient remains on high-dose prednisone, will likely transition next 24 hours in anticipation for discharge. Family did bring in her home device and this is to be cleared by engineering prior to use tonight to ensure that her home settings are appropriate as they are. Recently changed in the previous week or so by her home health agency [facility]. Critical Care Note Critical care time (min.): 0 Exam Vital Signs Temp Pulse Resp BP Pulse Ox O2 Del Method O2 Flow Rate 97.0 F 84 14 123/58 L 100 Nasal Cannula 3 02/07/25 04:00 02/07/25 06:38 02/07/25 06:38 02/07/25 04:00 02/07/25 06:38 02/07/25 04:00 02/07/25 06:38 FiO2 45 02/06/25 23:22 Narrative Exam GEN: NAD, AAOX3 HEENT: EOMI, PERRL NECK:-JVD CHEST: Mild accessory muscle use CVS: S1/S2+ RRR PULM: Bilateral crackes throughout ABD: soft, NT, ND, BS+ EXT: No peripheral edema or clubbing NEURO: Diffuse lower extremity weakness, nonfocal upper extremities and CN intact PSYCH: Appropriate mood/ affect Physical Exam Completion Physical Exam Complete?: Yes Objective - Cooling Tower Operator Labs 02/07/25 04:49 02/07/25 04:49 Labs: Laboratory Results - last 24 hr 02/06/25 02/07/25 02/07/25 08:11 04:49 06:10 WBC 10.2 RBC 3.35 L Hgb 9.3 L Hct 31.5 L MCV 94 MCH 27.8 MCHC 29.5 L RDW Std Deviation 55.1 H Plt Count 330 Neut % (Auto) 83 H Lymph % (Auto) 8 L [place] % (Auto) 8 Eos % (Auto) 0 Baso % (Auto) 0 Neut # (Auto) 8.4 H Lymph # (Auto) 0.8 L [place] # (Auto) 0.8 Eos # (Auto) 0.0 Baso # (Auto) 0.0 Immature Gran # (Auto) 0.14 H Absolute Nucleated RBC 0.00 Immature Gran % 1 H Nucleated RBC % 0 Puncture Site Left Brachial Left Radial ABG pH 7.35 7.36 ABG pCO2 75 H* D 81 H* ABG pO2 88 125 H D ABG HCO3 41 H 45 H ABG O2 Saturation 96 98 ABG Base Excess 14 H 17 H Oxygen Liter Flow 3 FiO2 21 21 Sodium 140 Potassium 3.7 Chloride 94 L Carbon Dioxide > 40.0 H Anion Gap 6 L BUN 23 Creatinine 1.2 Estim Creat Clear Calc 41.0 L eGFR 44 L BUN/Creatinine Ratio 19 Glucose 251 H Calculated Osmolality 291 Calcium 9.9 Phosphorus 2.6 Assessment & Plan Additional Plan Additional Plan: Patient is a 89-year-old female with significant striae of congestive heart failure further complicated by pulmonary fibrosis that was diagnosed multiple years ago but without for official diagnosis or long-term management. Patient CT imaging most consistent with component of pulmonary edema superimposed upon 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 Patient with advanced fibrotic disease though no significant lower lobe honeycombing/ traction bronchiectasis with predominant upper lobe and peribronchovascular distribution and notable mosaicism. Most likely precipitant based on history would be mold exposure from previous from [employer]. 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 No significant valve disease prior. She has also been labeled with COPD do not see significant emphysema to be consistent with this. She is not on any bronchodilator therapy at this point. Patient was started on prednisone after discussion with medicine team, will plan for slow taper. Previous history of breast cancer, not an ideal agent for cell cycle inhibitor. Patient with diffuse weakness already this may worsen with use of chronic prednisone. Family reports that she is minimally mobile at this point. She will follow[facility]up with the [facility] with resident. I remain available by telephone for long-term comanagement remotely. Fortunately does not have access to a custodial services manager locally and she predominately completes most of her care via telehealth. Patient will benefit from discussion with palliative care/hospice service determine if they may be able to help with additional needs. This will be out of an abundance of ensuring resources are available in case she does worsen given that she has had 3 hospitalizations within the month. She does have significant end-stage pulmonary fibrosis as evidenced by her chronic CO2 retention and chronic hypoxia. She is very limited by her functional status already and her severity of lung disease is likely further masked by her inability to mobilize. Nonetheless, she likely has a poor prognosis in the coming 6 months. I did discuss risk of infection with the patient and her family they are aware that with chronic immunosuppression this exists that she does not travel nor does she go outside significantly enough to suggest that risk of coccidioidomycosis, absolutely lifelong and is already likely been infected and reactivation unlikely. Provider Notation Provider Notation: Although this document has been carefully reviewed, there may still be some phonetic and other typographical errors. These errors are purely grammatical due to imperfections in the software program and should not be construed in any way to compromise the substance of the patient's medical care during this visit. Thank you for the opportunity and privilege in assisting you with this patient's care and management.
[2025-02-06] MEDS: BALSAM PERU/CASTOR OIL (Venelex) 60 GM TUBE TOP ×2 (12:00→21:50)
[2025-02-06] MEDS: METOCLOPRAMIDE INJ 5 MG/ML VIAL 2 ML 10 MG IVP (14:14)
--- NOTE | 2025-02-06 14:53 | ESPR_ITS ---
Documentation for date of: 02/06/25 Subjective Subjective Interval history: Patient is seen and examined at bedside No acute overnight events and patient is on BiPAP throughout the night Family is at the bedside and discussed about hospice and continuation of the steroids Will talk to the engineering to see if we can continue her home BiPAP in the hospital and will check ABG in the morning to look for any pCO2 retention Vitals are stable. Physical examination remains unchanged Labs showed mild leukocytosis, bicarb greater than 40 Consulted retail account executive, Dr. Jerez - he recommended to continue current management Exam Vital Signs Temp Pulse Resp BP Pulse Ox O2 Del Method O2 Flow Rate 97.8 F 96 18 116/62 98 Nasal Cannula 4 02/06/25 12:00 02/06/25 14:36 02/06/25 14:36 02/06/25 12:00 02/06/25 14:36 02/06/25 12:00 02/06/25 14:36 FiO2 45 02/06/25 02:00 Narrative Exam General: Alert and able to maintain a conversation. HEENT: Normocephalic, atraumatic, mucous membranes moist. Heart: Regular rate and rhythm, no murmurs. Lungs: Bilateral fine inspiratory crackles are heard. Bilateral bronchial breath sounds heard Abdomen: Soft, nondistended, nontender, positive bowel sounds. ?No guarding or rebound tenderness. Neurologic: no gross neurological deficit, and patient able to move all 4 extremities. Extremities: No edema. Skin: No rash or ecchymoses. Objective Labs 02/07/25 04:49 02/07/25 04:49 Labs: Laboratory Results - last 24 hr 02/06/25 02/06/25 05:06 08:11 WBC 12.3 H RBC 3.16 L Hgb 8.9 L Hct 29.7 L MCV 94 MCH 28.2 MCHC 30.0 L RDW Std Deviation 55.3 H Plt Count 323 Neut % (Auto) 88 H Lymph % (Auto) 5 L [place] % (Auto) 6 Eos % (Auto) 0 Baso % (Auto) 0 Neut # (Auto) 10.8 H Lymph # (Auto) 0.7 L [place] # (Auto) 0.7 Eos # (Auto) 0.0 Baso # (Auto) 0.0 Immature Gran # (Auto) 0.09 H Absolute Nucleated RBC 0.03 H Immature Gran % 1 H Nucleated RBC % 0 Puncture Site Left Brachial ABG pH 7.35 ABG pCO2 75 H* D ABG pO2 88 ABG HCO3 41 H ABG O2 Saturation 96 ABG Base Excess 14 H Oxygen Liter Flow 3 FiO2 21 Sodium 139 Potassium 3.6 D Chloride 93 L Carbon Dioxide > 40.0 H Anion Gap 6 L BUN 22 Creatinine 1.0 Estim Creat Clear Calc 49.2 L eGFR 54 L BUN/Creatinine Ratio 22 H Glucose 223 H Calculated Osmolality 287 Calcium 9.5 Corrected Calcium 10.1 Phosphorus 2.5 Magnesium 2.3 Total Bilirubin 0.2 L AST 10 ALT 11 Alkaline Phosphatase 51 Total Protein 5.5 L Albumin 3.3 L Globulin 2.2 L Albumin/Globulin Ratio 1.5 ABG Interpretation ABG results: 02/03/25 02/03/25 02/03/25 20:30 21:14 22:29 ABG pH 7.28 L ABG pCO2 91 H* ABG pO2 91 ABG HCO3 43 H ABG O2 Saturation 97 ABG Base Excess 13 H VBG pH 7.55 7.39 VBG pCO2 42 68 H D VBG pO2 171 H 80 H D VBG Base Excess 13 H 13 H 02/04/25 02/04/25 02/04/25 01:20 03:15 07:48 ABG pH 7.28 L 7.31 L ABG pCO2 91 H* 86 H* ABG pO2 73 L 72 L ABG HCO3 43 H 43 H ABG O2 Saturation 94 94 ABG Base Excess 13 H 14 H VBG pH 7.43 VBG pCO2 64 H VBG pO2 88 H VBG Base Excess 15 H 02/06/25 08:11 ABG pH 7.35 ABG pCO2 75 H* D ABG pO2 88 ABG HCO3 41 H ABG O2 Saturation 96 ABG Base Excess 14 H VBG pH VBG pCO2 VBG pO2 VBG Base Excess Quality Measures Quality Measures none Advance care planning discussed with:: patient and legal surragate Assessment & Plan Assessment Current Active Medications: Generic Name Dose Route Start Last Admin Trade Name Freq PRN Reason Stop Dose Admin Acetaminophen 650 mg 02/04/25 03:33 Acetaminophen 325 Mg Tablet PO 03/06/25 03:32 Q6H PRN Fever >99.5 Acetaminophen 1,000 mg 02/04/25 03:41 Acetaminophen 500 Mg Tablet PO 03/06/25 03:40 Q6H PRN PAIN SCALE 1-3 (mild Albuterol/Ipratropium 3 ml 02/04/25 03:33 Albuterol/Ipratropium (Duoneb) Rt Sravani 3 Ml Nebu INH 03/06/25 03:32 Q2HR PRN SHORTNESS OF BREATH OR WHEEZE Albuterol/Ipratropium 3 ml 02/05/25 15:00 02/06/25 14:36 Albuterol/Ipratropium (Duoneb) Rt Sravani 3 Ml Nebu INH 03/07/25 14:59 3 ml Q8HRRT LISETTE Administration Balsam Vincent/[place] Oil 0 gm 02/06/25 11:30 02/06/25 12:00 Balsam Vincent/[place] Oil (Venelex) 60 Gm Tube TOP 03/08/25 11:29 1 applicatio BID LISETTE Administration Dextrose 25 ml 02/04/25 03:41 Dextrose 50%-Water Inj 50 Ml Syringe IV 03/06/25 03:40 Q15MIN PRN BG 50-70 responsive npo pt Dextrose 50 ml 02/04/25 03:41 Dextrose 50%-Water Inj 50 Ml Syringe IV 03/06/25 03:40 Q15MIN PRN BG <50 OR BG <70 & pt unresponsive Docusate Sodium 100 mg 02/04/25 09:00 02/06/25 08:55 Docusate Sod 100 Mg Capsule PO 03/06/25 08:59 100 mg QDAY LISETTE Administration Protocol Glucagon 1 mg 02/04/25 03:41 Glucagon Inj 1 Mg Vial IM Q15MIN PRN BG <70, and no IV access Heparin Sodium (Porcine) 5,000 unit 02/04/25 06:00 02/06/25 14:13 Heparin Sod Inj 5000 Unit/Ml Vial SC 02/18/25 05:59 5,000 unit Q8HR LISETTE Administration Piperacillin/Tazobactam/Dextrose 3.375 gm in 50 mls @ 12.5 mls/hr 02/04/25 06:00 02/06/25 14:15 Zosyn IV 02/11/25 05:59 12.5 mls/hr Q8HR LISETTE Administration Protocol Insulin Glargine 15 unit 02/06/25 21:00 Insulin Glargine (Lantus) 5 Unit/0.05 Ml (Per 5 Units) SC 03/08/25 20:59 HS LISETTE Insulin Human Lispro 0 unit 02/05/25 11:30 02/06/25 12:00 Insulin Lispro (Admelog) 1 Unit/0.01 Ml Unit SC 03/07/25 11:29 2 unit ACHS LISETTE Administration Protocol Levothyroxine Sodium 100 mcg 02/04/25 06:00 02/06/25 05:13 Levothyroxine Sodium 100 Mcg Tablet PO 03/06/25 05:59 100 mcg ACBR LISETTE Administration Methylprednisolone Sodium Succinate 93.75 mg 02/05/25 09:00 02/06/25 08:56 Methylprednisolone Sod Succ 62.5 Mg/Ml 2ml Vial IVP 02/12/25 08:59 93.75 mg QDAY LISETTE Administration Metoclopramide HCl 5 mg 02/06/25 14:00 02/06/25 14:14 Metoclopramide Inj 5 Mg/Ml Vial 2 Ml IVP 03/08/25 13:59 Not Given Q8HR LISETTE Protocol Metoprolol Succinate 25 mg 02/04/25 09:00 02/06/25 08:56 Metoprolol Succinate Xl 25 Mg Tabcr PO 03/06/25 08:59 25 mg QDAY LISETTE Administration Naloxegol 25 mg 02/05/25 08:00 02/06/25 05:14 Naloxegol Oxalate 25 Mg Tablet (Non-Formulary) PO 03/06/25 08:59 25 mg ACBR LISETTE Administration Ondansetron HCl 4 mg 02/04/25 03:33 Ondansetron Inj 2 Mg/Ml Inj 2 Ml IVP 03/06/25 03:32 Q6H PRN NAUSEA OR VOMITING Protocol Pantoprazole Sodium 40 mg 02/04/25 09:00 02/06/25 08:52 Pantoprazole Inj 40 Mg Vial IVP 03/06/25 08:59 Not Given QDAY LISETTE Pantoprazole Sodium 40 mg 02/06/25 09:00 02/06/25 08:56 Pantoprazole 40 Mg Tablet PO 03/06/25 08:59 40 mg QDAY LISETTE Administration Sennosides 1 tab 02/04/25 09:00 02/06/25 08:56 Senna Tablet PO 03/06/25 08:59 1 tab QDAY LISETTE Administration Protocol Plan 89-year-old female with past medical history of 89-year-old female with past medical history of hypothyroidism, recurrent UTIs, chronic respiratory failure, right breast cancer status post lumpectomy, bedbound, chronic back pain, type 2 diabetes, GERD, depression, pulmonary fibrosis ?, HFpEF who was brought to the ED after being found unresponsive at home. 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 Patient was found to be desaturating on pulse ox at her home Chest x-ray showed bilateral lung opacities, pneumonia versus pulmonary edema in the differential Follow-up ABG showed improvement in an acid-base status we will continue on BiPAP at this time Blood cultures sent ? HS BiPAP and BiPap as needed ? Discontinued vancomycin, azithromycin - will continue zosyn for now ? DuoNebs as needed ? BiPAP at nighttime and whenever she is taking long naps ? Pulmonology Dr. Jerez is consulted and he recommended steroids, started on Solumedrol 93.75 mg IV once daily #HFpEF [65%] Presented with clinical signs such as shortness of breath, bilateral leg swelling, CXR: Bilateral lung opacities, pulmonary edema BNP: 163 Last echo: December 2024: Normal left ventricular size and function. Approximate ejection fraction is 65%. Trace mitral and trace tricuspid regurgitation. No wall motion abnormalities noted. ? Lasix held for now as patient does not appears to be fluid overloaded ? Metoprolol 25 mg daily ? Keep K>4, Mg>2 ? Provide oxygen as required ? Strict I's and O's ? Fluid restriction #Constipation Patient has not had a bowel movement in 8 days and prior to that did not have a bowel movement for multiple days from last admission Patient takes [place]'s chronically for chronic back pain could be contributing to constipation CT shows fecal impaction ? Senna ? Colace ? Movantik ? Consider enema or manual disimpaction once acute illness improves #Diabetes mellitus type 2 Last A1c: December 2024, 7.1 ? SSI ? Hypoglycemia protocol in place ? Lantus 10 units daily #Hypothyroidism ? Resume levothyroxine as taken at home Health Maintenance: Disposition: Telemetry, IV antibiotics Fluids: None Feeding: carb consistent Thrombo prophylaxis: Heparin Gastric Ulcer prophylaxis: Pantoprazole CODE STATUS: Full code Patient plan of care was discussed with the attending physician, Dr. Carlos Cronin, PGY1 Attending Provider Attestation/Addendum Kaylynn Núñez, , attest that I was physically present for the mackenzie portions of the service and evaluated the patient with the resident and I reviewed and discussed the case with the resident and agree with the resident's findings and plans of care as documented above Patient seen and evaluated this AM. Patient is much more alert today and reading newspaper. However, patient appeared to have aspirated after lunch and desaturated. Concern for dysphagia. Will have ST evaluate patient and switch diet to dysphagia 2. Family has brought home bipap and will place patient on her home Bipap machine this evening, set to AVAPS. Will obtain AM ABG.
[2025-02-06] MEDS: INSULIN GLARGINE (Lantus) 5 UNIT/0.05 ML (PER 5 UNITS) 15 UNIT SC (21:37)
[2025-02-06] MEDS: METOCLOPRAMIDE INJ 5 MG/ML VIAL 2 ML IVP (21:39)
[2025-02-07] VITALS (11 sets, daily range): BP systolic 112–134; BP diastolic 56–69; PULSE 76–103; RESP 14–30; TEMP 36.1–37.1; O2SAT 92–100; BMI 29.0; BMI 29.1
[2025-02-07] MEDS: NALOXEGOL OXALATE 25 MG TABLET (NON-FORMULARY) PO (05:23)
[2025-02-07] MEDS: METOCLOPRAMIDE INJ 5 MG/ML VIAL 2 ML IVP ×3 (05:23→21:22)
[2025-02-07] MEDS: LEVOTHYROXINE SODIUM 100 MCG TABLET PO (05:23)
[2025-02-07] MEDS: PIPER/TAZO 3.375 GM PREMIX 3.375 GM/50 ML BAG IV ×3 (05:24→21:25)
[2025-02-07] MEDS: HEPARIN SOD INJ 5000 UNIT/ML VIAL SC ×3 (05:25→21:23)
[2025-02-07 05:42] LABS: Basophils % (Auto) 0 % (0-2.5); Eosinophils % (Auto) 0 % (0-10); Hematocrit 31.5 % (36.0-46.0); Hemoglobin 9.3 g/dL (12.0-16.0); Immature Granulocytes % (Auto) 1 % (0-0); Immature Granulocytes Auto 0.14 Thou/mm3 (0.00-0.00); Lymphocytes # (Auto) 0.8 Thou/mm3 (1.0-4.8); Lymphocytes % (Auto) 8 % (10-50); Mean Corpuscular HGB Conc 29.5 g/dl (31.0-37.0); Mean Corpuscular Hemoglobin 27.8 pg (25.0-35.0); Mean Corpuscular Volume 94 fL (80-100); Monocytes # (Auto) 0.8 Thou/mm3 (0.0-0.8); Monocytes % (Auto) 8 % (0-12); Neutrophils # (Auto) 8.4 Thou/mm3 (1.8-7.7); Neutrophils % (Auto) 83 % (37-80); Nucleated Red Blood Cell % 0 /100 WBC (0); Platelet Count 330 Thou/mm3 (140-440); RDW Standard Deviation 55.1 fL (36.4-46.3); Red Blood Count 3.35 Miln/mm3 (4.00-5.20); White Blood Count 10.2 Thou/mm3 (3.6-11.0)
[2025-02-07 06:06] LABS: Anion Gap 6 (7-16); BUN/Creatinine Ratio 19 Ratio (12-20); Blood Urea Nitrogen 23 mg/dL (9-23); Calcium 9.9 mg/dL (8.3-10.6); Carbon Dioxide > 40.0 mMol/L (20.0-31.0); Chloride 94 mMol/L (98-107); Creatinine (Component) 1.2 mg/dL (0.6-1.3); Glucose 251 mg/dL (74-106); Osmolality,Calculated 291 (275-295); Phosphorous 2.6 mg/dL (2.4-5.1); Potassium 3.7 mMol/L (3.4-5.1); Sodium 140 mMol/L (136-145); eGFR 44 See Note
[2025-02-07 06:18] LABS: Base Excess 17 (-3-3); HCO3 45 mEq/L (20-26); Inspired Oxygen, FIO2 21 %; O2 Saturation 98 % (91-98); PCO2 81 mmHg (32.0-48.0); PO2 125 mmHg (83-108); pH, Arterial 7.36 (7.35-7.45)
[2025-02-07 06:23] LABS: Allen Test Performed/OK; Puncture Site Left Radial
[2025-02-07] MEDS: ALBUTEROL/IPRATROPIUM (Duoneb) RT SOL 3 ML NEBU INH ×2 (06:37→15:02)
[2025-02-07] MEDS: INSULIN LISPRO (AdmeLOG) 1 UNIT/0.01 ML UNIT SC ×4 (07:18→21:24)
[2025-02-07] MEDS: BALSAM PERU/CASTOR OIL (Venelex) 60 GM TUBE TOP ×2 (08:16→21:25)
[2025-02-07] MEDS: MethylPREDNISolone SOD SUCC 62.5 MG/ML 2ML VIAL 93.75 MG IVP (08:16)
[2025-02-07] MEDS: PANTOPRAZOLE INJ 40 MG VIAL IVP (08:17)
--- NOTE | 2025-02-07 08:46 | XR_ITS ---
Examination: AP chest single view TECHNIQUE: AP portable upright chest single view Date and time: February 07, 2025 0927 hours INDICATIONS: Shortness of breath today Comparison February 03, 2025 FINDINGS: Mild enlargement cardiac contour Prominent vascular congestion Abnormal interstitial parenchymal disease throughout the lungs Prominent osteopenia IMPRESSION: Extensive bilateral pneumonia Mild associated heart failure
--- NOTE | 2025-02-07 09:48 | PD.IMCONS ---
HPI Data of Consult Requesting Physician: Kaylynn Gonzalez DO Primary Care Provider: Physician No Primary/Family Consult Narrative Reason for consult: Dysphagia History of present illness: 81 years old female admitted on 02/03/2025 with acute hypoxic hypercapnic respiratory failure requiring BiPAP She has been having progressive dysphagia been consulted for the She does have a history of hypertension pulmonary arterial hypertension large stool in the rectum on his CT scan of the abdomen pelvis most likely interstitial lung disease superimposed pneumonia diabetes mellitus type 2 and hypothyroidism cc:: cc: Kaylynn Gonzalez DO Review of Systems Review of Systems Systems Reviewed: All systems reviewed, normal except as documented Past Medical History Surgical History OTHER SURGICAL HX: As in the history of present illness Meds Home Medications and Allergies Home Medications ?Medication ?Instructions ?Recorded ?Confirmed ?Type levothyroxine 75 mcg tablet 100 mcg PO QAM 04/18/20 02/05/25 History methenamine hippurate 1 gram tablet 1 g PO BID 04/18/20 02/05/25 History omeprazole 40 mg capsule,delayed 40 mg PO QDAY 06/04/21 02/05/25 History release rosuvastatin 5 mg tablet 5 mg PO HS 06/04/21 02/05/25 History venlafaxine 150 mg 150 mg PO HS 06/04/21 02/05/25 History capsule,extended release 24 hr furosemide 40 mg tablet 40 mg PO QAM 08/27/22 02/05/25 History ascorbic acid (vitamin C) 500 mg 500 mg PO BID 03/19/24 02/05/25 History tablet (Vitamin C) aspirin 81 mg tablet 81 mg PO QDAY 03/19/24 02/05/25 History magnesium 500 mg tablet 1,000 mg PO QDAY 03/19/24 02/05/25 History calcium 600 mg (as 0.5 tab PO QDAY 12/27/24 02/05/25 History carbonate)-vitamin D3 5 mcg (200 unit) tablet (Calcium 600 + D(3)) cranberry 500 mg capsule 1,000 mg PO QDAY 12/27/24 02/05/25 History hydrocodone 10 mg-acetaminophen 1 tab PO Q12H PRN pain 12/27/24 02/05/25 History 325 mg tablet lactobacillus comb no.10 20 25,000 mmu cells PO QDAY 12/27/24 02/05/25 History billion cell capsule (Probiotic) pramipexole 0.5 mg tablet 1 mg PO HS 12/27/24 02/05/25 History insulin glargine 100 unit/mL 20 unit subcut HS 02/05/25 02/05/25 History subcutaneous solution (Lantus U-100 Insulin) Allergies Allergy/AdvReac Type Severity Reaction Status Date / Time cefuroxime Allergy Intermediate Swelling Verified 12/27/24 11:13 of Lip/Tongue/Throat zinc Allergy Intermediate Rash Verified 12/27/24 11:13 iodine Allergy Unknown Verified 12/27/24 11:13 shellfish derived Allergy Unknown Verified 12/27/24 11:13 Sulfa (Sulfonamide Allergy Unknown Verified 12/27/24 11:13 Antibiotics) Exam Vital Signs Temp Pulse Resp BP Pulse Ox O2 Del Method O2 Flow Rate 97.9 F 98 24 H 126/64 92 L Nasal Cannula 1 02/07/25 08:00 02/07/25 08:00 02/07/25 08:00 02/07/25 08:00 02/07/25 08:00 02/07/25 08:00 02/07/25 08:00 FiO2 45 02/06/25 23:22 Constitutional Comments: Chronically ill-appearing Routine Respiratory Exam Comments: Scattered rhonchi Routine Abdominal Exam Comments: Soft nontender Results Labs 02/07/25 04:49 02/07/25 04:49 Labs: Short CBC 02/07/25 Range/Units 04:49 WBC 10.2 (3.6-11.0) Thou/mm3 Hgb 9.3 L (12.0-16.0) g/dL Hct 31.5 L (36.0-46.0) % Plt Count 330 (140-440) Thou/mm3 [facility] 02/07/25 04:49 Sodium 140 Potassium 3.7 Chloride 94 L Carbon Dioxide > 40.0 H BUN 23 Creatinine 1.2 Glucose 251 H Calcium 9.9 ABG Interpretation ABG results: 02/03/25 02/03/25 02/03/25 20:30 21:14 22:29 ABG pH 7.28 L ABG pCO2 91 H* ABG pO2 91 ABG HCO3 43 H ABG O2 Saturation 97 ABG Base Excess 13 H VBG pH 7.55 7.39 VBG pCO2 42 68 H D VBG pO2 171 H 80 H D VBG Base Excess 13 H 13 H 02/04/25 02/04/25 02/04/25 01:20 03:15 07:48 ABG pH 7.28 L 7.31 L ABG pCO2 91 H* 86 H* ABG pO2 73 L 72 L ABG HCO3 43 H 43 H ABG O2 Saturation 94 94 ABG Base Excess 13 H 14 H VBG pH 7.43 VBG pCO2 64 H VBG pO2 88 H VBG Base Excess 15 H 02/06/25 02/07/25 08:11 06:10 ABG pH 7.35 7.36 ABG pCO2 75 H* D 81 H* ABG pO2 88 125 H D ABG HCO3 41 H 45 H ABG O2 Saturation 96 98 ABG Base Excess 14 H 17 H VBG pH VBG pCO2 VBG pO2 VBG Base Excess Assessment and Plan Additional Assessment & Plan Additional Plan: # Progressive dysphagia # Acute hypoxic hypercapnic respiratory failure requiring frequent BiPAP pressure spoke with the retail specialist Will speak with Jg the nephew according to caretake Lissy Consent for fiberoptic esophagogastroduodenoscopy with possible biopsy possible therapeutic intervention under intravenous moderate sedation if the respiratory status will allow that Plan Once patient's respiratory status improves we will consider doing fiberoptic esophagogastroduodenoscopy with possible biopsy possible therapeutic intervention under intravenous moderate sedation Other medical problems include Bilateral pneumonia most likely underlying interstitial lung disease Diabetes mellitus type 2 Hypothyroidism Stool impaction
--- NOTE | 2025-02-07 11:22 | ESPR_ITS ---
Documentation for date of: 02/07/25 Subjective Subjective Interval history: Yesterday afternoon patient was witness to have difficulty swallowing / aspirating. At night, attempt was made to have patient on her own BiPAP but she was desatting, patient was switced back to hospital BiPAP. This morning ABG indicated pCO2 81 and pH 7.36. Patient very lethargic this morning. Speech specialist recommended possible endoscopy prior to MBS, caregivers updated at bedside who agreed for GI consultation regarding EGD. lawn maintenance worker to contact [facility] regarding exchanging BiPAP. Exam Vital Signs Temp Pulse Resp BP Pulse Ox O2 Del Method O2 Flow Rate 97.9 F 98 24 H 126/64 92 L Nasal Cannula 1 02/07/25 08:00 02/07/25 08:00 02/07/25 08:00 02/07/25 08:00 02/07/25 08:00 02/07/25 08:00 02/07/25 08:00 FiO2 45 02/06/25 23:22 Narrative Exam General: Patient lethargic, not following commands fully HEENT: Normocephalic, atraumatic, mucous membranes moist. Heart: Regular rate and rhythm, no murmurs. Lungs: Bilateral fine inspiratory crackles are heard. Bilateral bronchial breath sounds heard Abdomen: Soft, nondistended, nontender, positive bowel sounds. ?No guarding or rebound tenderness. Neurologic: Unable to perform due to patient's condition Extremities: No edema. Skin: No rash or ecchymoses. Objective Labs 02/08/25 07:46 02/08/25 07:46 Labs: Laboratory Results - last 24 hr 02/07/25 02/07/25 04:49 06:10 WBC 10.2 RBC 3.35 L Hgb 9.3 L Hct 31.5 L MCV 94 MCH 27.8 MCHC 29.5 L RDW Std Deviation 55.1 H Plt Count 330 Neut % (Auto) 83 H Lymph % (Auto) 8 L [place] % (Auto) 8 Eos % (Auto) 0 Baso % (Auto) 0 Neut # (Auto) 8.4 H Lymph # (Auto) 0.8 L [place] # (Auto) 0.8 Eos # (Auto) 0.0 Baso # (Auto) 0.0 Immature Gran # (Auto) 0.14 H Absolute Nucleated RBC 0.00 Immature Gran % 1 H Nucleated RBC % 0 Puncture Site Left Radial ABG pH 7.36 ABG pCO2 81 H* ABG pO2 125 H D ABG HCO3 45 H ABG O2 Saturation 98 ABG Base Excess 17 H FiO2 21 Sodium 140 Potassium 3.7 Chloride 94 L Carbon Dioxide > 40.0 H Anion Gap 6 L BUN 23 Creatinine 1.2 Estim Creat Clear Calc 41.0 L eGFR 44 L BUN/Creatinine Ratio 19 Glucose 251 H Calculated Osmolality 291 Calcium 9.9 Phosphorus 2.6 ABG Interpretation ABG results: 02/03/25 02/03/25 02/03/25 20:30 21:14 22:29 ABG pH 7.28 L ABG pCO2 91 H* ABG pO2 91 ABG HCO3 43 H ABG O2 Saturation 97 ABG Base Excess 13 H VBG pH 7.55 7.39 VBG pCO2 42 68 H D VBG pO2 171 H 80 H D VBG Base Excess 13 H 13 H 02/04/25 02/04/25 02/04/25 01:20 03:15 07:48 ABG pH 7.28 L 7.31 L ABG pCO2 91 H* 86 H* ABG pO2 73 L 72 L ABG HCO3 43 H 43 H ABG O2 Saturation 94 94 ABG Base Excess 13 H 14 H VBG pH 7.43 VBG pCO2 64 H VBG pO2 88 H VBG Base Excess 15 H 02/06/25 02/07/25 08:11 06:10 ABG pH 7.35 7.36 ABG pCO2 75 H* D 81 H* ABG pO2 88 125 H D ABG HCO3 41 H 45 H ABG O2 Saturation 96 98 ABG Base Excess 14 H 17 H VBG pH VBG pCO2 VBG pO2 VBG Base Excess Quality Measures Quality Measures none Advance care planning discussed with:: other Assessment & Plan Assessment Current Active Medications: Generic Name Dose Route Start Last Admin Trade Name Freq PRN Reason Stop Dose Admin Acetaminophen 650 mg 02/04/25 03:33 Acetaminophen 325 Mg Tablet PO 03/06/25 03:32 Q6H PRN Fever >99.5 Acetaminophen 1,000 mg 02/04/25 03:41 Acetaminophen 500 Mg Tablet PO 03/06/25 03:40 Q6H PRN PAIN SCALE 1-3 (mild Albuterol/Ipratropium 3 ml 02/04/25 03:33 Albuterol/Ipratropium (Duoneb) Rt Sravani 3 Ml Nebu INH 03/06/25 03:32 Q2HR PRN SHORTNESS OF BREATH OR WHEEZE Albuterol/Ipratropium 3 ml 02/05/25 15:00 02/07/25 06:37 Albuterol/Ipratropium (Duoneb) Rt Sravani 3 Ml Nebu INH 03/07/25 14:59 3 ml Q8HRRT LISETTE Administration Balsam [place] Oil 0 gm 02/06/25 11:30 02/07/25 08:16 Balsam [place] Oil (Venelex) 60 Gm Tube TOP 03/08/25 11:29 1 applicatio BID LISETTE Administration Dextrose 25 ml 02/04/25 03:41 Dextrose 50%-Water Inj 50 Ml Syringe IV 03/06/25 03:40 Q15MIN PRN BG 50-70 responsive npo pt Dextrose 50 ml 02/04/25 03:41 Dextrose 50%-Water Inj 50 Ml Syringe IV 03/06/25 03:40 Q15MIN PRN BG <50 OR BG <70 & pt unresponsive Docusate Sodium 100 mg 02/04/25 09:00 02/07/25 08:18 Docusate Sod 100 Mg Capsule PO 03/06/25 08:59 Not Given QDAY ON LICENSE OF [facility] Protocol Glucagon 1 mg 02/04/25 03:41 Glucagon Inj 1 Mg Vial IM Q15MIN PRN BG <70, and no IV access Heparin Sodium (Porcine) 5,000 unit 02/04/25 06:00 02/07/25 05:25 Heparin Sod Inj 5000 Unit/Ml Vial SC 02/18/25 05:59 5,000 unit Q8HR LISETTE Administration Piperacillin/Tazobactam/Dextrose 3.375 gm in 50 mls @ 12.5 mls/hr 02/04/25 06:00 02/07/25 05:24 Zosyn IV 02/11/25 05:59 12.5 mls/hr Q8HR LISETTE Administration Protocol Insulin Glargine 20 unit 02/07/25 21:00 Insulin Glargine (Lantus) 5 Unit/0.05 Ml (Per 5 Units) SC 03/09/25 20:59 HS LISETTE Insulin Human Lispro 0 unit 02/05/25 11:30 02/07/25 07:18 Insulin Lispro (Admelog) 1 Unit/0.01 Ml Unit SC 03/07/25 11:29 1 unit ACHS LISETTE Administration Protocol Levothyroxine Sodium 100 mcg 02/04/25 06:00 02/07/25 05:23 Levothyroxine Sodium 100 Mcg Tablet PO 03/06/25 05:59 100 mcg ACBR LISETTE Administration Methylprednisolone Sodium Succinate 93.75 mg 02/05/25 09:00 02/07/25 08:16 Methylprednisolone Sod Succ 62.5 Mg/Ml 2ml Vial IVP 02/12/25 08:59 93.75 mg QDAY LISETTE Administration Metoclopramide HCl 5 mg 02/06/25 14:00 02/07/25 05:23 Metoclopramide Inj 5 Mg/Ml Vial 2 Ml IVP 03/08/25 13:59 5 mg Q8HR LISETTE Administration Protocol Metoprolol Succinate 25 mg 02/04/25 09:00 02/06/25 08:56 Metoprolol Succinate Xl 25 Mg Tabcr PO 03/06/25 08:59 25 mg QDAY LISETTE Administration Naloxegol 25 mg 02/05/25 08:00 02/07/25 05:23 Naloxegol Oxalate 25 Mg Tablet (Non-Formulary) PO 03/06/25 08:59 25 mg ACBR LISETTE Administration Ondansetron HCl 4 mg 02/04/25 03:33 Ondansetron Inj 2 Mg/Ml Inj 2 Ml IVP 03/06/25 03:32 Q6H PRN NAUSEA OR VOMITING Protocol Pantoprazole Sodium 40 mg 02/04/25 09:00 02/07/25 08:17 Pantoprazole Inj 40 Mg Vial IVP 03/06/25 08:59 40 mg QDAY LISETTE Administration Pantoprazole Sodium 40 mg 02/06/25 09:00 02/07/25 08:17 Pantoprazole 40 Mg Tablet PO 03/06/25 08:59 Not Given QDAY LISETTE Sennosides 1 tab 02/04/25 09:00 02/07/25 08:17 Senna Tablet PO 03/06/25 08:59 Not Given QDAY LISETTE Protocol Plan 89-year-old female with past medical history of 89-year-old female with past medical history of hypothyroidism, recurrent UTIs, chronic respiratory failure, right breast cancer status post lumpectomy, bedbound, chronic back pain, type 2 diabetes, GERD, depression, pulmonary fibrosis ?, HFpEF who was brought to the ED after being found unresponsive at home. 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 Patient was found to be desaturating on pulse ox at her home Chest x-ray showed bilateral lung opacities, pneumonia versus pulmonary edema in the differential Follow-up ABG showed improvement in an acid-base status we will continue on BiPAP at this time Blood cultures sent ? Continue IV Zosyn ? DuoNebs as needed ? BiPAP at nighttime and whenever she is taking long naps ? Pulmonology Dr. Jerez onboard, started on Solumedrol 93.75 mg IV once daily #HFpEF [65%] Presented with clinical signs such as shortness of breath, bilateral leg swelling, CXR: Bilateral lung opacities, pulmonary edema BNP: 163 Last echo: December 2024: Normal left ventricular size and function. Approximate ejection fraction is 65%. Trace mitral and trace tricuspid regurgitation. No wall motion abnormalities noted. ? Lasix held for now as patient does not appears to be fluid overloaded ? Metoprolol 25 mg daily ? Keep K>4, Mg>2 ? Provide oxygen as required ? Strict I's and O's ? Fluid restriction #Constipation Patient has not had a bowel movement in 8 days and prior to that did not have a bowel movement for multiple days from last admission Patient takes [place]'s chronically for chronic back pain could be contributing to constipation CT shows fecal impaction ? Senna ? Colace ? Movantik ? Consider enema or manual disimpaction once acute illness improves #Diabetes mellitus type 2 Last A1c: December 2024, 7.1 ? SSI ? Hypoglycemia protocol in place ? Lantus 10 units daily #Hypothyroidism ? Resume levothyroxine as taken at home Health Maintenance: Disposition: Telemetry, IV antibiotics Fluids: None Feeding: carb consistent Thrombo prophylaxis: Heparin Gastric Ulcer prophylaxis: Pantoprazole CODE STATUS: Full code This patient care was discussed with my attending Dr. Carlos Larsen MD PGY-2 Disclaimer: Minor errors in weaver apprentice may be present since this note was dictated by speech recognition software. Attending Provider Attestation/Addendum I, Kaylynn Gonzalez DO, attest that I was physically present for the mackenzie portions of the service and evaluated the patient with the resident and I reviewed and discussed the case with the resident and agree with the resident's findings and plans of care as documented above Patient seen and evaluated this a.m. Patient is more lethargic this morning. However, improved and much more alert once BiPAP is replaced. Due to concern for aspiration, spoke with speech therapist this morning. She recommends GI workup due to concern for possible esophageal stricture. She had previously seen the patient in December and had recommended GI workup but does not appear to have been done. Will consult GI for possible stricture and dilatation. Family is agreeable to undergo GI workup. They also would like to speak to hospice services to explore other options. Will continue with current management. Last night, patient's home BiPAP was not functioning well and patient desaturated. However, chest x-ray does not show any new infiltrates. Patient remains on Zosyn nevertheless. Case was also discussed with pulmonology. Will continue with current management. Will follow-up with GI recommendations.
--- NOTE | 2025-02-07 11:31 | PCS.ST ---
Swallow Evaluation completed See report for details. S/S of esophageal dysfunction. Recommend GI consult. Modify diet with strict precautions for now.
[2025-02-07] MEDS: METOPROLOL SUCCINATE XL 25 MG TABCR PO (12:17)
--- NOTE | 2025-02-07 14:14 | PC.SS ---
Follow up note: Patient bipap machine may need adjusting per staff. Patient brought in her bipap machine from home. SS contacted [facility] and they state they were last out on the to patient's home to look at bipap machine. They adjusted settings. [facility]'s respiratory therapist states the machine is fine. They will come out again once patient is home. They state to contact them if there's any other problems with machine.
--- NOTE | 2025-02-07 14:27 | PC.SS ---
Rounding Note: Patient is utilizing BI-PAP at bedside. GI consulting. Awaiting recommendations.
[2025-02-07] MEDS: INSULIN GLARGINE (Lantus) 5 UNIT/0.05 ML (PER 5 UNITS) 20 UNIT SC (21:24)
[2025-02-08] VITALS (18 sets, daily range): BP systolic 104–169; BP diastolic 48–100; PULSE 74–110; RESP 15–31; TEMP 36.1–37.1; O2SAT 93–100
[2025-02-08] MEDS: PIPER/TAZO 3.375 GM PREMIX 3.375 GM/50 ML BAG IV ×3 (05:50→21:33)
[2025-02-08] MEDS: NALOXEGOL OXALATE 25 MG TABLET (NON-FORMULARY) PO (05:50)
[2025-02-08] MEDS: LEVOTHYROXINE SODIUM 100 MCG TABLET PO (05:50)
[2025-02-08] MEDS: HEPARIN SOD INJ 5000 UNIT/ML VIAL SC ×3 (05:51→21:32)
[2025-02-08] MEDS: METOCLOPRAMIDE INJ 5 MG/ML VIAL 2 ML IVP ×3 (05:51→21:32)
[2025-02-08] MEDS: ALBUTEROL/IPRATROPIUM (Duoneb) RT SOL 3 ML NEBU INH ×3 (06:38→22:00)
[2025-02-08] MEDS: MethylPREDNISolone SOD SUCC 62.5 MG/ML 2ML VIAL 93.75 MG IVP (08:16)
[2025-02-08] MEDS: BALSAM PERU/CASTOR OIL (Venelex) 60 GM TUBE TOP ×2 (08:21→21:33)
[2025-02-08] MEDS: PANTOPRAZOLE INJ 40 MG VIAL IVP (08:23)
[2025-02-08 08:28] LABS: Basophils % (Auto) 0 % (0-2.5); Eosinophils # (Auto) 0.1 Thou/mm3 (0.0-0.5); Eosinophils % (Auto) 1 % (0-10); Hematocrit 33.2 % (36.0-46.0); Hemoglobin 9.6 g/dL (12.0-16.0); Immature Granulocytes % (Auto) 2 % (0-0); Lymphocytes # (Auto) 1.6 Thou/mm3 (1.0-4.8); Lymphocytes % (Auto) 18 % (10-50); Mean Corpuscular HGB Conc 28.9 g/dl (31.0-37.0); Mean Corpuscular Hemoglobin 28.2 pg (25.0-35.0); Mean Corpuscular Volume 97 fL (80-100); Monocytes % (Auto) 11 % (0-12); Neutrophils # (Auto) 6.4 Thou/mm3 (1.8-7.7); Neutrophils % (Auto) 68 % (37-80); Nucleated Red Blood Cell % 0 /100 WBC (0); Platelet Count 287 Thou/mm3 (140-440); Red Blood Count 3.41 Miln/mm3 (4.00-5.20); White Blood Count 9.3 Thou/mm3 (3.6-11.0)
[2025-02-08 08:49] LABS: Anion Gap 7 (7-16); BUN/Creatinine Ratio 18 Ratio (12-20); Blood Urea Nitrogen 21 mg/dL (9-23); Calcium 9.6 mg/dL (8.3-10.6); Carbon Dioxide > 40.0 mMol/L (20.0-31.0); Chloride 95 mMol/L (98-107); Creatinine (Component) 1.2 mg/dL (0.6-1.3); Estimated Creatinine Clearance 41.3 mL/min (>60); Glucose 162 mg/dL (74-106); Osmolality,Calculated 290 (275-295); Potassium 3.8 mMol/L (3.4-5.1); Sodium 142 mMol/L (136-145); eGFR 44 See Note
[2025-02-08 09:19] LABS: Base Excess, Venous 22 (-3-3); O2 Saturation, Venous 88 % (96-97); PCO2, Venous 49 mmHg (36-56); PO2, Venous 50 mmHg (15-58); pH, Venous 7.58 (7.33-7.66)
[2025-02-08] MEDS: ACETAzolaMIDE 250 MG TABLET 500 MG PO (14:20)
--- NOTE | 2025-02-08 14:59 | PC.SS ---
Rounding Note: Dr. Peters is consulting. Hospice information to be provided.
--- NOTE | 2025-02-08 15:30 | ESPR_ITS ---
<Statement entered by Benjamin Larsen MD - 02/09/25 00:30> I discussed with and supervised the spring internship physician involved in the care of this patient. Patient assessment and plan was discussed with entire medicine team, including my attending. I agree with the assessment and plan as documented by spring internship doctor. Patient care was discussed with my attending physician Dr. Carlos Larsen, PGY-2 Documentation for date of: 02/08/25 Subjective Subjective Interval history: Patient is seen and examined at bedside Overnight, patient used her own home BiPAP Repeat ABG done today showed metabolic alkalosis without any CO2 retention and patient was given a dose of acetazolamide 500 mg Continue steroids for now Bridge Game Director, Dr. Peters is consulted and patient will get an EGD Exam Vital Signs Temp Pulse Resp BP Pulse Ox O2 Del Method O2 Flow Rate 97.4 F 103 H 24 H 129/58 L 100 Nasal Cannula 2 02/08/25 08:00 02/08/25 15:08 02/08/25 15:08 02/08/25 08:20 02/08/25 15:08 02/08/25 08:00 02/08/25 15:08 FiO2 45 02/07/25 08:45 Narrative Exam General: Alert and able to maintain a conversation. HEENT: Normocephalic, atraumatic, mucous membranes moist. Heart: Regular rate and rhythm, no murmurs. Lungs: Bilateral fine inspiratory crackles are heard. Bilateral bronchial breath sounds heard Abdomen: Soft, nondistended, nontender, positive bowel sounds. ?No guarding or rebound tenderness. Neurologic: no gross neurological deficit, and patient able to move all 4 extremities. Extremities: No edema. Skin: No rash or ecchymoses. Objective Labs 02/09/25 05:06 02/09/25 05:06 Labs: Laboratory Results - last 24 hr 02/08/25 02/08/25 07:46 09:11 WBC 9.3 RBC 3.41 L Hgb 9.6 L Hct 33.2 L MCV 97 MCH 28.2 MCHC 28.9 L RDW Std Deviation 56.0 H Plt Count 287 D Neut % (Auto) 68 Lymph % (Auto) 18 [place] % (Auto) 11 Eos % (Auto) 1 Baso % (Auto) 0 Neut # (Auto) 6.4 Lymph # (Auto) 1.6 [place] # (Auto) 1.0 H Eos # (Auto) 0.1 Baso # (Auto) 0.0 Immature Gran # (Auto) 0.20 H Absolute Nucleated RBC 0.00 Immature Gran % 2 H Nucleated RBC % 0 VBG pH 7.58 VBG pCO2 49 VBG pO2 50 VBG O2 Sat (Radha) 88 L VBG Base Excess 22 H Sodium 142 Potassium 3.8 Chloride 95 L Carbon Dioxide > 40.0 H Anion Gap 7 BUN 21 Creatinine 1.2 Estim Creat Clear Calc 41.3 L eGFR 44 L BUN/Creatinine Ratio 18 Glucose 162 H D Calculated Osmolality 290 Calcium 9.6 ABG Interpretation ABG results: 02/03/25 02/03/25 02/03/25 20:30 21:14 22:29 ABG pH 7.28 L ABG pCO2 91 H* ABG pO2 91 ABG HCO3 43 H ABG O2 Saturation 97 ABG Base Excess 13 H VBG pH 7.55 7.39 VBG pCO2 42 68 H D VBG pO2 171 H 80 H D VBG Base Excess 13 H 13 H 02/04/25 02/04/25 02/04/25 01:20 03:15 07:48 ABG pH 7.28 L 7.31 L ABG pCO2 91 H* 86 H* ABG pO2 73 L 72 L ABG HCO3 43 H 43 H ABG O2 Saturation 94 94 ABG Base Excess 13 H 14 H VBG pH 7.43 VBG pCO2 64 H VBG pO2 88 H VBG Base Excess 15 H 02/06/25 02/07/25 02/08/25 08:11 06:10 09:11 ABG pH 7.35 7.36 ABG pCO2 75 H* D 81 H* ABG pO2 88 125 H D ABG HCO3 41 H 45 H ABG O2 Saturation 96 98 ABG Base Excess 14 H 17 H VBG pH 7.58 VBG pCO2 49 VBG pO2 50 VBG Base Excess 22 H Quality Measures Quality Measures none Advance care planning discussed with:: patient Assessment & Plan Assessment Current Active Medications: Generic Name Dose Route Start Last Admin Trade Name Freq PRN Reason Stop Dose Admin Acetaminophen 650 mg 02/04/25 03:33 Acetaminophen 325 Mg Tablet PO 03/06/25 03:32 Q6H PRN Fever >99.5 Acetaminophen 1,000 mg 02/04/25 03:41 Acetaminophen 500 Mg Tablet PO 03/06/25 03:40 Q6H PRN PAIN SCALE 1-3 (mild Albuterol/Ipratropium 3 ml 02/04/25 03:33 Albuterol/Ipratropium (Duoneb) Rt Sravani 3 Ml Nebu INH 03/06/25 03:32 Q2HR PRN SHORTNESS OF BREATH OR WHEEZE Albuterol/Ipratropium 3 ml 02/05/25 15:00 02/08/25 15:07 Albuterol/Ipratropium (Duoneb) Rt Sravani 3 Ml Nebu INH 03/07/25 14:59 3 ml Q8HRRT LISETTE Administration Balsam [place] Oil 0 gm 02/06/25 11:30 02/08/25 08:21 Balsam [place] Oil (Venelex) 60 Gm Tube TOP 03/08/25 11:29 1 applicatio BID LISETTE Administration Dextrose 25 ml 02/04/25 03:41 Dextrose 50%-Water Inj 50 Ml Syringe IV 03/06/25 03:40 Q15MIN PRN BG 50-70 responsive npo pt Dextrose 50 ml 02/04/25 03:41 Dextrose 50%-Water Inj 50 Ml Syringe IV 03/06/25 03:40 Q15MIN PRN BG <50 OR BG <70 & pt unresponsive Docusate Sodium 100 mg 02/04/25 09:00 02/08/25 08:20 Docusate Sod 100 Mg Capsule PO 03/06/25 08:59 Not Given QDAY LISETTE Protocol Glucagon 1 mg 02/04/25 03:41 Glucagon Inj 1 Mg Vial IM Q15MIN PRN BG <70, and no IV access Heparin Sodium (Porcine) 5,000 unit 02/04/25 06:00 02/08/25 14:19 Heparin Sod Inj 5000 Unit/Ml Vial SC 02/18/25 05:59 5,000 unit Q8HR LISETTE Administration Piperacillin/Tazobactam/Dextrose 3.375 gm in 50 mls @ 12.5 mls/hr 02/04/25 06:00 02/08/25 14:19 Zosyn IV 02/11/25 05:59 12.5 mls/hr Q8HR LISETTE Administration Protocol Insulin Glargine 20 unit 02/07/25 21:00 02/07/25 21:24 Insulin Glargine (Lantus) 5 Unit/0.05 Ml (Per 5 Units) SC 03/09/25 20:59 20 unit HS LISETTE Administration Insulin Human Lispro 0 unit 02/05/25 11:30 02/08/25 11:45 Insulin Lispro (Admelog) 1 Unit/0.01 Ml Unit SC 03/07/25 11:29 Not Given ACHS LISETTE Protocol Levothyroxine Sodium 100 mcg 02/04/25 06:00 02/08/25 05:50 Levothyroxine Sodium 100 Mcg Tablet PO 03/06/25 05:59 100 mcg ACBR LISETTE Administration Methylprednisolone Sodium Succinate 93.75 mg 02/05/25 09:00 02/08/25 08:16 Methylprednisolone Sod Succ 62.5 Mg/Ml 2ml Vial IVP 02/12/25 08:59 93.75 mg QDAY LISETTE Administration Metoclopramide HCl 5 mg 02/06/25 14:00 02/08/25 14:20 Metoclopramide Inj 5 Mg/Ml Vial 2 Ml IVP 03/08/25 13:59 5 mg Q8HR LISETTE Administration Protocol Metoprolol Succinate 25 mg 02/04/25 09:00 02/08/25 08:20 Metoprolol Succinate Xl 25 Mg Tabcr PO 03/06/25 08:59 Not Given QDAY LISETTE Naloxegol 25 mg 02/05/25 08:00 02/08/25 05:50 Naloxegol Oxalate 25 Mg Tablet (Non-Formulary) PO 03/06/25 08:59 25 mg ACBR LISETTE Administration Ondansetron HCl 4 mg 02/04/25 03:33 Ondansetron Inj 2 Mg/Ml Inj 2 Ml IVP 03/06/25 03:32 Q6H PRN NAUSEA OR VOMITING Protocol Pantoprazole Sodium 40 mg 02/04/25 09:00 02/08/25 08:23 Pantoprazole Inj 40 Mg Vial IVP 03/06/25 08:59 40 mg QDAY LISETTE Administration Sennosides 1 tab 02/04/25 09:00 02/08/25 08:20 Senna Tablet PO 03/06/25 08:59 Not Given QDAY LISETTE Protocol Plan 89-year-old female with past medical history of 89-year-old female with past medical history of hypothyroidism, recurrent UTIs, chronic respiratory failure, right breast cancer status post lumpectomy, bedbound, chronic back pain, type 2 diabetes, GERD, depression, pulmonary fibrosis ?, HFpEF who was brought to the ED after being found unresponsive at home. # Suspected esophageal dysmotility - CT chest showed food in the esophagus - Speech language evaluation suggested mortgage loan processor referral and swallow studies Plan - Consulted Dr. Peters and he recommended endoscopy #Acute encephalopathy, resolved likely secondary to #Acute on chronic hypoxic and hypercapnic respiratory failure #Underlying chronic lung disease, likely ILD - Possible Hypersensitivity pneumonitis #suspected superimposed pneumonia Patient yesterday was AO x 3 however today became lethargic progressively during the day she developed a cough with productive phlegm and the caregiver was concern for aspiration events therefore did not put the patient on BiPAP patient later then became unresponsive and EMS was called. Patient was found to be desaturating on pulse ox at her home Chest x-ray showed bilateral lung opacities, pneumonia versus pulmonary edema in the differential Follow-up ABG showed improvement in an acid-base status we will continue on BiPAP at this time Blood cultures sent ? Continue IV Zosyn ? DuoNebs as needed ? BiPAP at nighttime and whenever she is taking long naps ? Pulmonology Dr. Jerez onboard, started on Solumedrol 93.75 mg IV once daily #HFpEF [65%] Presented with clinical signs such as shortness of breath, bilateral leg swelling, CXR: Bilateral lung opacities, pulmonary edema BNP: 163 Last echo: December 2024: Normal left ventricular size and function. Approximate ejection fraction is 65%. Trace mitral and trace tricuspid regurgitation. No wall motion abnormalities noted. ? Lasix held for now as patient does not appears to be fluid overloaded ? Metoprolol 25 mg daily ? Keep K>4, Mg>2 ? Provide oxygen as required ? Strict I's and O's ? Fluid restriction #Constipation Patient has not had a bowel movement in 8 days and prior to that did not have a bowel movement for multiple days from last admission Patient takes [place]'s chronically for chronic back pain could be contributing to constipation CT shows fecal impaction ? Senna ? Colace ? Movantik ? Consider enema or manual disimpaction once acute illness improves #Diabetes mellitus type 2 Last A1c: December 2024, 7.1 ? SSI ? Hypoglycemia protocol in place ? Lantus 20 units daily #Hypothyroidism ? Resumed levothyroxine as taken at home Health Maintenance: Disposition: Telemetry, IV antibiotics Fluids: None Feeding: carb consistent Thrombo prophylaxis: Heparin Gastric Ulcer prophylaxis: Pantoprazole CODE STATUS: Full code Patient plan of care was discussed with the attending physician, Dr. Gonzalez and senior resident Dr. Suzie Cronin, PGY1 Disclaimer: Minor errors in cloth sander may be present since this note was dictated by speech recognition software. Attending Provider Attestation/Addendum I, Kaylynn Gonzalez, , attest that I was physically present for the mackenzie portions of the service and evaluated the patient with the resident and I reviewed and discussed the case with the resident and agree with the resident's findings and plans of care as documented above Patient seen and evaluated this AM. She is anxious to have EGD done today due to hunger. Patient is A&Ox3. No acute events overnight. No further episodes of aspiration. Patient was able to tolerate her home BIPap overnight without issues. Continue with home BiPap at night.
--- NOTE | 2025-02-08 19:30 | SUR.PHASEI ---
1930: Pt. AAOx4, vitals stable, breathing unlabored, no complaint of pain or nausea, no dressing in place, no active bleed noted, report received from Clara QUEZADA.
--- NOTE | 2025-02-08 20:00 | SUR.PHASEI ---
2000: Pt. AAOx4, vitals stable, breathing unlabored, no complaint of pain or nausea, pt. tolerated bites of jello well, gave report to floor nurse prior to transfer to room 267.
[2025-02-08] MEDS: INSULIN LISPRO (AdmeLOG) 1 UNIT/0.01 ML UNIT SC (21:31)
[2025-02-08] MEDS: INSULIN GLARGINE (Lantus) 5 UNIT/0.05 ML (PER 5 UNITS) 20 UNIT SC (21:32)
[2025-02-09] VITALS (11 sets, daily range): BP systolic 106–145; BP diastolic 61–77; PULSE 79–114; RESP 15–26; TEMP 36.1–36.4; O2SAT 94–99; BMI 30.5
[2025-02-09 05:35] LABS: Basophils # (Auto) 0.1 Thou/mm3 (0.0-0.2); Basophils % (Auto) 1 % (0-2.5); Eosinophils # (Auto) 0.1 Thou/mm3 (0.0-0.5); Eosinophils % (Auto) 1 % (0-10); Hematocrit 33.2 % (36.0-46.0); Hemoglobin 9.9 g/dL (12.0-16.0); Immature Granulocytes % (Auto) 3 % (0-0); Immature Granulocytes Auto 0.32 Thou/mm3 (0.00-0.00); Lymphocytes # (Auto) 1.5 Thou/mm3 (1.0-4.8); Lymphocytes % (Auto) 15 % (10-50); Mean Corpuscular HGB Conc 29.8 g/dl (31.0-37.0); Mean Corpuscular Volume 94 fL (80-100); Monocytes % (Auto) 10 % (0-12); Neutrophils # (Auto) 6.8 Thou/mm3 (1.8-7.7); Neutrophils % (Auto) 71 % (37-80); Nucleated Red Blood Cell % 0 /100 WBC (0); Platelet Count 262 Thou/mm3 (140-440); RDW Standard Deviation 53.9 fL (36.4-46.3); Red Blood Count 3.54 Miln/mm3 (4.00-5.20); White Blood Count 9.7 Thou/mm3 (3.6-11.0)
[2025-02-09 06:15] LABS: Anion Gap 5 (7-16); BUN/Creatinine Ratio 15 Ratio (12-20); Blood Urea Nitrogen 17 mg/dL (9-23); Calcium 9.5 mg/dL (8.3-10.6); Carbon Dioxide 35.7 mMol/L (20.0-31.0); Chloride 98 mMol/L (98-107); Creatinine (Component) 1.1 mg/dL (0.6-1.3); Estimated Creatinine Clearance 45.1 mL/min (>60); Glucose 180 mg/dL (74-106); Osmolality,Calculated 284 (275-295); Sodium 139 mMol/L (136-145); eGFR 48 See Note
[2025-02-09] MEDS: NALOXEGOL OXALATE 25 MG TABLET (NON-FORMULARY) PO (06:45)
[2025-02-09] MEDS: PIPER/TAZO 3.375 GM PREMIX 3.375 GM/50 ML BAG IV ×3 (06:45→21:31)
[2025-02-09] MEDS: LEVOTHYROXINE SODIUM 100 MCG TABLET PO (06:45)
[2025-02-09] MEDS: HEPARIN SOD INJ 5000 UNIT/ML VIAL SC ×3 (06:45→21:29)
[2025-02-09] MEDS: METOCLOPRAMIDE INJ 5 MG/ML VIAL 2 ML IVP ×3 (06:46→21:29)
[2025-02-09] MEDS: ALBUTEROL/IPRATROPIUM (Duoneb) RT SOL 3 ML NEBU INH ×2 (07:34→15:14)
[2025-02-09] MEDS: MethylPREDNISolone SOD SUCC 62.5 MG/ML 2ML VIAL 93.75 MG IVP (08:16)
[2025-02-09] MEDS: PANTOPRAZOLE INJ 40 MG VIAL IVP (08:16)
[2025-02-09] MEDS: ASPIRIN 81 MG CHEW PO (08:17)
[2025-02-09] MEDS: DOCUSATE SOD 100 MG CAPSULE PO (08:17)
[2025-02-09] MEDS: METOPROLOL SUCCINATE XL 25 MG TABCR PO (08:17)
[2025-02-09] MEDS: SENNA TABLET 1 TAB PO (08:17)
[2025-02-09] MEDS: BALSAM PERU/CASTOR OIL (Venelex) 60 GM TUBE TOP ×2 (08:18→21:31)
[2025-02-09 09:21] LABS: Base Excess, Venous 7 (-3-3); O2 Saturation, Venous 89 % (96-97); PCO2, Venous 68 mmHg (36-56); PO2, Venous 60 mmHg (15-58); pH, Venous 7.32 (7.33-7.66)
[2025-02-09] MEDS: INSULIN LISPRO (AdmeLOG) 1 UNIT/0.01 ML UNIT SC ×3 (12:00→21:30)
--- NOTE | 2025-02-09 12:05 | PD.IMPROG ---
Documentation for date of: 02/09/25 Subjective Subjective Interval history: Hemoglobin hematocrit 9.9 and 33.2 still oozing blood clear liquid diet started Exam Vital Signs Temp Pulse Resp BP Pulse Ox O2 Del Method O2 Flow Rate 97.3 F 99 26 H 106/77 98 Nasal Cannula 3 02/09/25 08:00 02/09/25 09:34 02/09/25 09:34 02/09/25 08:17 02/09/25 09:34 02/09/25 08:00 02/09/25 08:00 FiO2 45 02/09/25 09:34 Objective Labs 02/09/25 05:06 02/09/25 05:06 Labs: Laboratory Results - last 24 hr 02/09/25 02/09/25 05:06 09:08 WBC 9.7 RBC 3.54 L Hgb 9.9 L Hct 33.2 L MCV 94 MCH 28.0 MCHC 29.8 L RDW Std Deviation 53.9 H Plt Count 262 Neut % (Auto) 71 Lymph % (Auto) 15 [place] % (Auto) 10 Eos % (Auto) 1 Baso % (Auto) 1 Neut # (Auto) 6.8 Lymph # (Auto) 1.5 [place] # (Auto) 1.0 H Eos # (Auto) 0.1 Baso # (Auto) 0.1 Immature Gran # (Auto) 0.32 H Absolute Nucleated RBC 0.00 Immature Gran % 3 H Nucleated RBC % 0 VBG pH 7.32 L VBG pCO2 68 H D VBG pO2 60 H VBG O2 Sat (Radha) 89 L VBG Base Excess 7 H Sodium 139 Potassium 4.0 Chloride 98 Carbon Dioxide 35.7 H Anion Gap 5 L BUN 17 Creatinine 1.1 Estim Creat Clear Calc 45.1 L eGFR 48 L BUN/Creatinine Ratio 15 Glucose 180 H Calculated Osmolality 284 Calcium 9.5 Impressions Impression: Duodenal bulb bleed from a large duodenal ulcer with a visible blood vessel continue conservative management Clear liquid diet ABG Interpretation ABG results: 02/03/25 02/03/25 02/03/25 20:30 21:14 22:29 ABG pH 7.28 L ABG pCO2 91 H* ABG pO2 91 ABG HCO3 43 H ABG O2 Saturation 97 ABG Base Excess 13 H VBG pH 7.55 7.39 VBG pCO2 42 68 H D VBG pO2 171 H 80 H D VBG Base Excess 13 H 13 H 02/04/25 02/04/25 02/04/25 01:20 03:15 07:48 ABG pH 7.28 L 7.31 L ABG pCO2 91 H* 86 H* ABG pO2 73 L 72 L ABG HCO3 43 H 43 H ABG O2 Saturation 94 94 ABG Base Excess 13 H 14 H VBG pH 7.43 VBG pCO2 64 H VBG pO2 88 H VBG Base Excess 15 H 02/06/25 02/07/25 02/08/25 08:11 06:10 09:11 ABG pH 7.35 7.36 ABG pCO2 75 H* D 81 H* ABG pO2 88 125 H D ABG HCO3 41 H 45 H ABG O2 Saturation 96 98 ABG Base Excess 14 H 17 H VBG pH 7.58 VBG pCO2 49 VBG pO2 50 VBG Base Excess 22 H 02/09/25 09:08 ABG pH ABG pCO2 ABG pO2 ABG HCO3 ABG O2 Saturation ABG Base Excess VBG pH 7.32 L VBG pCO2 68 H D VBG pO2 60 H VBG Base Excess 7 H Assessment & Plan A&P Narrative # Progressive dysphagia # Acute hypoxic hypercapnic respiratory failure requiring frequent BiPAP pressure spoke with the ruling machine set up operator Will speak with Jg the nephew according to caretake Lissy Consent for fiberoptic esophagogastroduodenoscopy with possible biopsy possible therapeutic intervention under intravenous moderate sedation if the respiratory status will allow that Plan Once patient's respiratory status improves we will consider doing fiberoptic esophagogastroduodenoscopy with possible biopsy possible therapeutic intervention under intravenous moderate sedation Other medical problems include Bilateral pneumonia most likely underlying interstitial lung disease Diabetes mellitus type 2 Hypothyroidism Stool impaction Time Spent With Patient Time: Total time spent is greater than 50% in coordination of care (as documented) at patient's floor/unit and/or counseling patient:
--- NOTE | 2025-02-09 14:46 | ESPR_ITS ---
<Statement entered by Benjamin Larsen MD - 02/10/25 07:11> I discussed with and supervised the brand marketing intern physician involved in the care of this patient. Patient assessment and plan was discussed with entire medicine team, including my attending. I agree with the assessment and plan as documented by brand marketing intern doctor. Patient care was discussed with my attending physician Dr. Carlos Larsen, PGY-2 Documentation for date of: 02/09/25 Subjective Subjective Interval history: Patient is seen and examined at bedside Patient underwent upper GI endoscopy yesterday and found to have esophageal stricture which was dilated by Dr. Peters Overnight, patient is not on BiPAP as she refused it At the time of examination this morning, patient appeared mildly drowsy but able to answer all the questions appropriately Repeat VBG was done which showed 68 pCO2 and patient was kept on BiPAP Will continue to monitor for today-plan to discharge tomorrow Exam Vital Signs Temp Pulse Resp BP Pulse Ox O2 Del Method O2 Flow Rate 97.3 F 88 24 H 116/72 95 BiPAP 3 02/09/25 12:00 02/09/25 12:00 02/09/25 12:00 02/09/25 12:00 02/09/25 12:00 02/09/25 12:00 02/09/25 08:00 FiO2 45 02/09/25 09:34 Narrative Exam General: lethargic and able to respond to questions appropriately HEENT: Normocephalic, atraumatic, mucous membranes moist. Heart: Regular rate and rhythm, no murmurs. Lungs: Bilateral fine inspiratory crackles are heard. Bilateral bronchial breath sounds heard Abdomen: Soft, nondistended, nontender, positive bowel sounds. ?No guarding or rebound tenderness. Neurologic: no gross neurological deficit, and patient able to move all 4 extremities. Extremities: No edema. Skin: No rash or ecchymoses. Objective Labs 02/10/25 07:57 02/10/25 07:57 Labs: Laboratory Results - last 24 hr 02/09/25 02/09/25 05:06 09:08 WBC 9.7 RBC 3.54 L Hgb 9.9 L Hct 33.2 L MCV 94 MCH 28.0 MCHC 29.8 L RDW Std Deviation 53.9 H Plt Count 262 Neut % (Auto) 71 Lymph % (Auto) 15 [place] % (Auto) 10 Eos % (Auto) 1 Baso % (Auto) 1 Neut # (Auto) 6.8 Lymph # (Auto) 1.5 [place] # (Auto) 1.0 H Eos # (Auto) 0.1 Baso # (Auto) 0.1 Immature Gran # (Auto) 0.32 H Absolute Nucleated RBC 0.00 Immature Gran % 3 H Nucleated RBC % 0 VBG pH 7.32 L VBG pCO2 68 H D VBG pO2 60 H VBG O2 Sat (Radha) 89 L VBG Base Excess 7 H Sodium 139 Potassium 4.0 Chloride 98 Carbon Dioxide 35.7 H Anion Gap 5 L BUN 17 Creatinine 1.1 Estim Creat Clear Calc 45.1 L eGFR 48 L BUN/Creatinine Ratio 15 Glucose 180 H Calculated Osmolality 284 Calcium 9.5 ABG Interpretation ABG results: 02/03/25 02/03/25 02/03/25 20:30 21:14 22:29 ABG pH 7.28 L ABG pCO2 91 H* ABG pO2 91 ABG HCO3 43 H ABG O2 Saturation 97 ABG Base Excess 13 H VBG pH 7.55 7.39 VBG pCO2 42 68 H D VBG pO2 171 H 80 H D VBG Base Excess 13 H 13 H 02/04/25 02/04/25 02/04/25 01:20 03:15 07:48 ABG pH 7.28 L 7.31 L ABG pCO2 91 H* 86 H* ABG pO2 73 L 72 L ABG HCO3 43 H 43 H ABG O2 Saturation 94 94 ABG Base Excess 13 H 14 H VBG pH 7.43 VBG pCO2 64 H VBG pO2 88 H VBG Base Excess 15 H 02/06/25 02/07/25 02/08/25 08:11 06:10 09:11 ABG pH 7.35 7.36 ABG pCO2 75 H* D 81 H* ABG pO2 88 125 H D ABG HCO3 41 H 45 H ABG O2 Saturation 96 98 ABG Base Excess 14 H 17 H VBG pH 7.58 VBG pCO2 49 VBG pO2 50 VBG Base Excess 22 H 02/09/25 09:08 ABG pH ABG pCO2 ABG pO2 ABG HCO3 ABG O2 Saturation ABG Base Excess VBG pH 7.32 L VBG pCO2 68 H D VBG pO2 60 H VBG Base Excess 7 H Quality Measures Quality Measures none Advance care planning discussed with:: patient and other Assessment & Plan Assessment Current Active Medications: Generic Name Dose Route Start Last Admin Trade Name Freq PRN Reason Stop Dose Admin Acetaminophen 650 mg 02/04/25 03:33 Acetaminophen 325 Mg Tablet PO 03/06/25 03:32 Q6H PRN Fever >99.5 Acetaminophen 1,000 mg 02/04/25 03:41 Acetaminophen 500 Mg Tablet PO 03/06/25 03:40 Q6H PRN PAIN SCALE 1-3 (mild Albuterol/Ipratropium 3 ml 02/04/25 03:33 Albuterol/Ipratropium (Duoneb) Rt Sravani 3 Ml Nebu INH 03/06/25 03:32 Q2HR PRN SHORTNESS OF BREATH OR WHEEZE Albuterol/Ipratropium 3 ml 02/05/25 15:00 02/09/25 07:34 Albuterol/Ipratropium (Duoneb) Rt Sravani 3 Ml Nebu INH 03/07/25 14:59 3 ml Q8HRRT LISETTE Administration Aspirin 81 mg 02/09/25 09:00 02/09/25 08:17 Aspirin 81 Mg Chew PO 03/11/25 08:59 81 mg QDAY LISETTE Administration Balsam [place] Oil 0 gm 02/06/25 11:30 02/09/25 08:18 Balsam [place] Oil (Venelex) 60 Gm Tube TOP 03/08/25 11:29 1 applicatio BID LISETTE Administration Dextrose 25 ml 02/04/25 03:41 Dextrose 50%-Water Inj 50 Ml Syringe IV 03/06/25 03:40 Q15MIN PRN BG 50-70 responsive npo pt Dextrose 50 ml 02/04/25 03:41 Dextrose 50%-Water Inj 50 Ml Syringe IV 03/06/25 03:40 Q15MIN PRN BG <50 OR BG <70 & pt unresponsive Docusate Sodium 100 mg 02/04/25 09:00 02/09/25 08:17 Docusate Sod 100 Mg Capsule PO 03/06/25 08:59 100 mg QDAY LISETTE Administration Protocol Glucagon 1 mg 02/04/25 03:41 Glucagon Inj 1 Mg Vial IM Q15MIN PRN BG <70, and no IV access Heparin Sodium (Porcine) 5,000 unit 02/04/25 06:00 02/09/25 06:45 Heparin Sod Inj 5000 Unit/Ml Vial SC 02/18/25 05:59 5,000 unit Q8HR LISETTE Administration Piperacillin/Tazobactam/Dextrose 3.375 gm in 50 mls @ 12.5 mls/hr 02/04/25 06:00 02/09/25 06:45 Zosyn IV 02/11/25 05:59 12.5 mls/hr Q8HR LISETTE Administration Protocol Insulin Glargine 20 unit 02/07/25 21:00 02/08/25 21:32 Insulin Glargine (Lantus) 5 Unit/0.05 Ml (Per 5 Units) SC 03/09/25 20:59 20 unit HS LISETTE Administration Insulin Human Lispro 0 unit 02/05/25 11:30 02/09/25 12:00 Insulin Lispro (Admelog) 1 Unit/0.01 Ml Unit SC 03/07/25 11:29 3 unit ACHS LISETTE Administration Protocol Levothyroxine Sodium 100 mcg 02/04/25 06:00 02/09/25 06:45 Levothyroxine Sodium 100 Mcg Tablet PO 03/06/25 05:59 100 mcg ACBR LISETTE Administration Methylprednisolone Sodium Succinate 93.75 mg 02/05/25 09:00 02/09/25 08:16 Methylprednisolone Sod Succ 62.5 Mg/Ml 2ml Vial IVP 02/12/25 08:59 93.75 mg QDAY LISETTE Administration Metoclopramide HCl 5 mg 02/06/25 14:00 02/09/25 06:46 Metoclopramide Inj 5 Mg/Ml Vial 2 Ml IVP 03/08/25 13:59 5 mg Q8HR LISETTE Administration Protocol Metoprolol Succinate 25 mg 02/04/25 09:00 02/09/25 08:17 Metoprolol Succinate Xl 25 Mg Tabcr PO 03/06/25 08:59 25 mg QDAY LISETTE Administration Naloxegol 25 mg 02/05/25 08:00 02/09/25 06:45 Naloxegol Oxalate 25 Mg Tablet (Non-Formulary) PO 03/06/25 08:59 25 mg ACBR LISETTE Administration Ondansetron HCl 4 mg 02/04/25 03:33 Ondansetron Inj 2 Mg/Ml Inj 2 Ml IVP 03/06/25 03:32 Q6H PRN NAUSEA OR VOMITING Protocol Pantoprazole Sodium 40 mg 02/10/25 09:00 Pantoprazole 40 Mg Tablet PO 03/12/25 08:59 QDAY [facility] Protocol Sennosides 1 tab 02/04/25 09:00 02/09/25 08:17 Senna Tablet PO 03/06/25 08:59 1 tab QDAY LISETTE Administration Protocol Plan 89-year-old female with past medical history of 89-year-old female with past medical history of hypothyroidism, recurrent UTIs, chronic respiratory failure, right breast cancer status post lumpectomy, bedbound, chronic back pain, type 2 diabetes, GERD, depression, pulmonary fibrosis ?, HFpEF who was brought to the ED after being found unresponsive at home. # Dysphagia secondary to esophageal stenosis s/p Dilatation - CT chest showed food in the esophagus - Speech language evaluation suggested asic verification engineer referral and swallow studies Plan - Consulted Dr. 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 Patient was found to be desaturating on pulse ox at her home Chest x-ray showed bilateral lung opacities, pneumonia versus pulmonary edema in the differential Follow-up ABG showed improvement in an acid-base status we will continue on BiPAP at this time Blood cultures sent ? Continue IV Zosyn ? DuoNebs as needed ? BiPAP at nighttime and whenever she is taking long naps ? Pulmonology Dr. Jerez onboard, started on Solumedrol 93.75 mg IV once daily #HFpEF [65%] Presented with clinical signs such as shortness of breath, bilateral leg swelling, CXR: Bilateral lung opacities, pulmonary edema BNP: 163 Last echo: December 2024: Normal left ventricular size and function. Approximate ejection fraction is 65%. Trace mitral and trace tricuspid regurgitation. No wall motion abnormalities noted. ? Lasix held for now as patient does not appears to be fluid overloaded ? Metoprolol 25 mg daily ? Keep K>4, Mg>2 ? Provide oxygen as required ? Strict I's and O's ? Fluid restriction #Constipation Patient has not had a bowel movement in 8 days and prior to that did not have a bowel movement for multiple days from last admission Patient takes [place]'s chronically for chronic back pain could be contributing to constipation CT shows fecal impaction ? Senna ? Colace ? Movantik ? Consider enema or manual disimpaction once acute illness improves #Diabetes mellitus type 2 Last A1c: December 2024, 7.1 ? SSI ? Hypoglycemia protocol in place ? Lantus 20 units daily #Hypothyroidism ? Resumed levothyroxine as taken at home Health Maintenance: Disposition: Telemetry, IV antibiotics Fluids: None Feeding: carb consistent Thrombo prophylaxis: Heparin Gastric Ulcer prophylaxis: Pantoprazole CODE STATUS: Full code Patient plan of care was discussed with the attending physician, Dr. Gonzalez and senior resident Dr. Suzie Cronin, PGY1 Attending Provider Attestation/Addendum I, Kaylynn Gonzalez, DO, attest that I was physically present for the [place]ackenzie portions of the service and evaluated the patient with the resident and I reviewed and discussed the case with the resident and agree with the resident's findings and plans of care as documented above Patient seen eval this a.m. She is much more lethargic this morning. Patient refused wearing the BiPAP overnight and did receive some sedation from her EGD yesterday which may contribute to her overall lethargy. Patient was found to have an esophageal stenosis and is status post dilatation. Will keep patient on BiPAP at this time. Will advance diet as tolerated when she is much more alert. Blood glucose appears to be uncontrolled due to steroids. Will uptitrate insulin as needed.
--- NOTE | 2025-02-09 15:04 | CHAP ---
Patient was visited by a Spiritual Care Volunteer on 02/07/2025 between 0930 and 1200 and received comfort, encouragement and/or prayer.
--- NOTE | 2025-02-09 15:23 | PC.SS ---
Rounding Note: Patient off of BI-PAP use. Plan is to d/c home tomorrow.
[2025-02-09] MEDS: INSULIN LISPRO (AdmeLOG) 1 UNIT/0.01 ML UNIT 10 UNIT SC ×2 (16:32→18:19)
[2025-02-09] MEDS: INSULIN GLARGINE (Lantus) 5 UNIT/0.05 ML (PER 5 UNITS) 24 UNIT SC (21:30)
--- NOTE | 2025-02-09 21:33 | PD.EVENT ---
Documentation for date of: 02/09/25 Event Note Event Note: My note from today was dictated Disregard that note
--- NOTE | 2025-02-09 21:34 | ESPR_ITS ---
Documentation for date of: 02/09/25 Subjective Subjective Interval history: Patient had to be put back on the BiPAP this morning endoscopic esophageal stricture dilatation yesterday Advance diet as tolerated Exam Vital Signs Temp Pulse Resp BP Pulse Ox O2 Del Method O2 Flow Rate 97.4 F 102 H 22 H 145/61 H 94 L High Flow Nasal Cannula 2 02/09/25 20:00 02/09/25 20:00 02/09/25 20:00 02/09/25 20:00 02/09/25 20:00 02/09/25 20:00 02/09/25 20:00 FiO2 45 02/09/25 15:14 Objective Labs 02/09/25 05:06 02/09/25 05:06 Labs: Laboratory Results - last 24 hr 02/09/25 02/09/25 05:06 09:08 WBC 9.7 RBC 3.54 L Hgb 9.9 L Hct 33.2 L MCV 94 MCH 28.0 MCHC 29.8 L RDW Std Deviation 53.9 H Plt Count 262 Neut % (Auto) 71 Lymph % (Auto) 15 [place] % (Auto) 10 Eos % (Auto) 1 Baso % (Auto) 1 Neut # (Auto) 6.8 Lymph # (Auto) 1.5 [place] # (Auto) 1.0 H Eos # (Auto) 0.1 Baso # (Auto) 0.1 Immature Gran # (Auto) 0.32 H Absolute Nucleated RBC 0.00 Immature Gran % 3 H Nucleated RBC % 0 VBG pH 7.32 L VBG pCO2 68 H D VBG pO2 60 H VBG O2 Sat (Radha) 89 L VBG Base Excess 7 H Sodium 139 Potassium 4.0 Chloride 98 Carbon Dioxide 35.7 H Anion Gap 5 L BUN 17 Creatinine 1.1 Estim Creat Clear Calc 45.1 L eGFR 48 L BUN/Creatinine Ratio 15 Glucose 180 H Calculated Osmolality 284 Calcium 9.5 Impressions Impression: Esophageal status post endoscopic dilatation Acute hypercapnic hypoxic respiratory failure requiring BiPAP Advance diet as tolerated ABG Interpretation ABG results: 02/03/25 02/03/25 02/03/25 20:30 21:14 22:29 ABG pH 7.28 L ABG pCO2 91 H* ABG pO2 91 ABG HCO3 43 H ABG O2 Saturation 97 ABG Base Excess 13 H VBG pH 7.55 7.39 VBG pCO2 42 68 H D VBG pO2 171 H 80 H D VBG Base Excess 13 H 13 H 02/04/25 02/04/25 02/04/25 01:20 03:15 07:48 ABG pH 7.28 L 7.31 L ABG pCO2 91 H* 86 H* ABG pO2 73 L 72 L ABG HCO3 43 H 43 H ABG O2 Saturation 94 94 ABG Base Excess 13 H 14 H VBG pH 7.43 VBG pCO2 64 H VBG pO2 88 H VBG Base Excess 15 H 02/06/25 02/07/25 02/08/25 08:11 06:10 09:11 ABG pH 7.35 7.36 ABG pCO2 75 H* D 81 H* ABG pO2 88 125 H D ABG HCO3 41 H 45 H ABG O2 Saturation 96 98 ABG Base Excess 14 H 17 H VBG pH 7.58 VBG pCO2 49 VBG pO2 50 VBG Base Excess 22 H 02/09/25 09:08 ABG pH ABG pCO2 ABG pO2 ABG HCO3 ABG O2 Saturation ABG Base Excess VBG pH 7.32 L VBG pCO2 68 H D VBG pO2 60 H VBG Base Excess 7 H Assessment & Plan A&P Narrative # Progressive dysphagia # Acute hypoxic hypercapnic respiratory failure requiring frequent BiPAP pressure spoke with the farm or ranch animal caretaker Will speak with Jg the nephew according to caretake Lissy Consent for fiberoptic esophagogastroduodenoscopy with possible biopsy possible therapeutic intervention under intravenous moderate sedation if the respiratory status will allow that Plan Once patient's respiratory status improves we will consider doing fiberoptic esophagogastroduodenoscopy with possible biopsy possible therapeutic intervention under intravenous moderate sedation Other medical problems include Bilateral pneumonia most likely underlying interstitial lung disease Diabetes mellitus type 2 Hypothyroidism Stool impaction Time Spent With Patient Time: Total time spent is greater than 50% in coordination of care (as documented) at patient's floor/unit and/or counseling patient:
[2025-02-10] VITALS (12 sets, daily range): BP systolic 117–145; BP diastolic 64–77; PULSE 75–101; RESP 15–31; TEMP 35.9–36.8; O2SAT 94–100; BMI 29.3
[2025-02-10] MEDS: NALOXEGOL OXALATE 25 MG TABLET (NON-FORMULARY) PO (05:34)
[2025-02-10] MEDS: METOCLOPRAMIDE INJ 5 MG/ML VIAL 2 ML IVP ×3 (05:34→21:27)
[2025-02-10] MEDS: HEPARIN SOD INJ 5000 UNIT/ML VIAL SC ×3 (05:36→21:27)
[2025-02-10] MEDS: LEVOTHYROXINE SODIUM 100 MCG TABLET PO (05:37)
[2025-02-10] MEDS: PIPER/TAZO 3.375 GM PREMIX 3.375 GM/50 ML BAG IV ×2 (05:37→13:33)
[2025-02-10] MEDS: ALBUTEROL/IPRATROPIUM (Duoneb) RT SOL 3 ML NEBU INH ×3 (07:13→22:48)
[2025-02-10 08:07] LABS: Basophils # (Auto) 0.1 Thou/mm3 (0.0-0.2); Basophils % (Auto) 1 % (0-2.5); Eosinophils # (Auto) 0.3 Thou/mm3 (0.0-0.5); Eosinophils % (Auto) 3 % (0-10); Hematocrit 33.8 % (36.0-46.0); Hemoglobin 10.3 g/dL (12.0-16.0); Immature Granulocytes % (Auto) 4 % (0-0); Immature Granulocytes Auto 0.44 Thou/mm3 (0.00-0.00); Lymphocytes # (Auto) 1.6 Thou/mm3 (1.0-4.8); Lymphocytes % (Auto) 16 % (10-50); Mean Corpuscular HGB Conc 30.5 g/dl (31.0-37.0); Mean Corpuscular Hemoglobin 27.8 pg (25.0-35.0); Mean Corpuscular Volume 91 fL (80-100); Monocytes # (Auto) 0.9 Thou/mm3 (0.0-0.8); Monocytes % (Auto) 9 % (0-12); Neutrophils # (Auto) 6.6 Thou/mm3 (1.8-7.7); Neutrophils % (Auto) 66 % (37-80); Nucleated Red Blood Cell % 0 /100 WBC (0); Platelet Count 241 Thou/mm3 (140-440); RDW Standard Deviation 52.1 fL (36.4-46.3)
[2025-02-10 08:24] LABS: Alanine Aminotransferase 93 U/L (10-49); Albumin, Serum 3.3 gm/dL (3.4-4.8); Albumin/Globulin Ratio 1.4 (1.2-2.2); Alkaline Phosphatase 54 U/L (46-116); Anion Gap 5 (7-16); Aspartate Amino Transferase 36 U/L (0-34); BUN/Creatinine Ratio 16 Ratio (12-20); Bilirubin,Total 0.5 mg/dL (0.3-1.2); Blood Urea Nitrogen 18 mg/dL (9-23); Calcium 9.6 mg/dL (8.3-10.6); Calcium (Corrected) 10.2 mg/dL (8.5-10.1); Carbon Dioxide 34.2 mMol/L (20.0-31.0); Chloride 100 mMol/L (98-107); Creatinine (Component) 1.1 mg/dL (0.6-1.3); Estimated Creatinine Clearance 44.2 mL/min (>60); Globulin 2.3 gm/dL (2.3-3.5); Glucose 165 mg/dL (74-106); Osmolality,Calculated 283 (275-295); Potassium 3.9 mMol/L (3.4-5.1); Sodium 139 mMol/L (136-145); Total Protein 5.6 gm/dL (5.7-8.2); eGFR 48 See Note
--- NOTE | 2025-02-10 08:53 | PC.CC ---
[Late Entry] 02/07 - Signed orders for [employer] Angelita 3 Plus sensor and reader sent to [facility].
[2025-02-10] MEDS: DOCUSATE SOD 100 MG CAPSULE PO (09:54)
[2025-02-10] MEDS: PANTOPRAZOLE 40 MG TABLET PO (09:54)
[2025-02-10] MEDS: SENNA TABLET 1 TAB PO (09:54)
[2025-02-10] MEDS: METOPROLOL SUCCINATE XL 25 MG TABCR PO (09:55)
[2025-02-10] MEDS: MethylPREDNISolone SOD SUCC 62.5 MG/ML 2ML VIAL 93.75 MG IVP (09:55)
[2025-02-10] MEDS: ASPIRIN 81 MG CHEW PO (09:55)
[2025-02-10] MEDS: BALSAM PERU/CASTOR OIL (Venelex) 60 GM TUBE TOP ×2 (09:56→22:06)
[2025-02-10] MEDS: INSULIN LISPRO (AdmeLOG) 1 UNIT/0.01 ML UNIT SC ×3 (12:18→21:28)
--- NOTE | 2025-02-10 12:37 | PC.SS ---
MATLAB DEVELOPER confirmed with patient plan to d/c home. MATLAB DEVELOPER received phone call from patient's family member, Edith Coffman ; requesting to speak to physician prior to patient's discharge. MATLAB DEVELOPER informed that physican will reach out to patient's family.
--- NOTE | 2025-02-10 15:21 | PC.SS ---
DIRECTOR CHILD ABUSE THERAPY conducted phone contact with patient's nephew spouse (Edith Coffman ) to relay to spouse (Jg Coffman) need to contact DIRECTOR CHILD ABUSE THERAPY to provide verbal consent to initiate hospice services on behalf of the patient. Nephew is out of area for phone service. Nephew spouse, Edith Coffman; informed DIRECTOR CHILD ABUSE THERAPY that spouse will be in range around 4:00 pm and will relay message to contact DIRECTOR CHILD ABUSE THERAPY.
--- NOTE | 2025-02-10 16:25 | PC.SS ---
MERCERIZING RANGE CONTROLLER confirmed with patient's nephew, Jgjodi Coffman ; to confirm patient's transition to home with [facility] hospice. Nephew confirmed discharge plan.
--- NOTE | 2025-02-10 16:31 | PC.SS ---
Hospice referral submitted on [facility]. BI-PAP settings submitted. [facility] will replace patient's BI-PAP machine upon patient's return home. [facility] will also deliver hospital bed.
--- NOTE | 2025-02-10 16:34 | ESPR_ITS ---
<Statement entered by Benjamin Larsen MD - 02/11/25 07:16> I discussed with and supervised the ad operations intern physician involved in the care of this patient. Patient assessment and plan was discussed with entire medicine team, including my attending. I agree with the assessment and plan as documented by ad operations intern doctor. Patient care was discussed with my attending physician Dr. Carlos Larsen, PGY-2 Documentation for date of: 02/10/25 Subjective Subjective Interval history: Patient is seen and examined at bedside No acute overnight events. Patient is on BiPAP overnight Patient denies any other complaints. Vitals are stable. Physical examination remains unchanged Labs showed improving metabolic alkalosis. Held Lasix as of now Patient is supposed to get discharged today but as her home is getting renovated for the AC outlet, family requested to keep her overnight Will discharge tomorrow back to home with a steroid taper Exam Vital Signs Temp Pulse Resp BP Pulse Ox O2 Del Method O2 Flow Rate 97.3 F 100 18 126/74 98 Nasal Cannula 2 02/10/25 12:00 02/10/25 14:58 02/10/25 14:58 02/10/25 12:00 02/10/25 14:58 02/10/25 08:00 02/10/25 14:58 FiO2 45 02/10/25 04:00 Narrative Exam General: lethargic and able to respond to questions appropriately HEENT: Normocephalic, atraumatic, mucous membranes moist. Heart: Regular rate and rhythm, no murmurs. Lungs: Bilateral fine inspiratory crackles are heard. Bilateral bronchial breath sounds heard Abdomen: Soft, nondistended, nontender, positive bowel sounds. ?No guarding or rebound tenderness. Neurologic: no gross neurological deficit, and patient able to move all 4 extremities. Extremities: No edema. Skin: No rash or ecchymoses. Objective Labs 02/11/25 04:58 02/11/25 04:58 Labs: Laboratory Results - last 24 hr 02/10/25 07:57 WBC 10.0 RBC 3.70 L Hgb 10.3 L Hct 33.8 L MCV 91 MCH 27.8 MCHC 30.5 L RDW Std Deviation 52.1 H Plt Count 241 Neut % (Auto) 66 Lymph % (Auto) 16 [place] % (Auto) 9 Eos % (Auto) 3 Baso % (Auto) 1 Neut # (Auto) 6.6 Lymph # (Auto) 1.6 [place] # (Auto) 0.9 H Eos # (Auto) 0.3 Baso # (Auto) 0.1 Immature Gran # (Auto) 0.44 H Absolute Nucleated RBC 0.00 Immature Gran % 4 H Nucleated RBC % 0 Sodium 139 Potassium 3.9 Chloride 100 Carbon Dioxide 34.2 H Anion Gap 5 L BUN 18 Creatinine 1.1 Estim Creat Clear Calc 44.2 L eGFR 48 L BUN/Creatinine Ratio 16 Glucose 165 H Calculated Osmolality 283 Calcium 9.6 Corrected Calcium 10.2 H Total Bilirubin 0.5 AST 36 H ALT 93 H Alkaline Phosphatase 54 Total Protein 5.6 L Albumin 3.3 L Globulin 2.3 Albumin/Globulin Ratio 1.4 ABG Interpretation ABG results: 02/03/25 02/03/25 02/03/25 20:30 21:14 22:29 ABG pH 7.28 L ABG pCO2 91 H* ABG pO2 91 ABG HCO3 43 H ABG O2 Saturation 97 ABG Base Excess 13 H VBG pH 7.55 7.39 VBG pCO2 42 68 H D VBG pO2 171 H 80 H D VBG Base Excess 13 H 13 H 02/04/25 02/04/25 02/04/25 01:20 03:15 07:48 ABG pH 7.28 L 7.31 L ABG pCO2 91 H* 86 H* ABG pO2 73 L 72 L ABG HCO3 43 H 43 H ABG O2 Saturation 94 94 ABG Base Excess 13 H 14 H VBG pH 7.43 VBG pCO2 64 H VBG pO2 88 H VBG Base Excess 15 H 02/06/25 02/07/25 02/08/25 08:11 06:10 09:11 ABG pH 7.35 7.36 ABG pCO2 75 H* D 81 H* ABG pO2 88 125 H D ABG HCO3 41 H 45 H ABG O2 Saturation 96 98 ABG Base Excess 14 H 17 H VBG pH 7.58 VBG pCO2 49 VBG pO2 50 VBG Base Excess 22 H 02/09/25 09:08 ABG pH ABG pCO2 ABG pO2 ABG HCO3 ABG O2 Saturation ABG Base Excess VBG pH 7.32 L VBG pCO2 68 H D VBG pO2 60 H VBG Base Excess 7 H Quality Measures Quality Measures none Advance care planning discussed with:: patient and legal surragate Assessment & Plan Assessment Current Active Medications: Generic Name Dose Route Start Last Admin Trade Name Freq PRN Reason Stop Dose Admin Acetaminophen 650 mg 02/04/25 03:33 Acetaminophen 325 Mg Tablet PO 03/06/25 03:32 Q6H PRN Fever >99.5 Acetaminophen 1,000 mg 02/04/25 03:41 Acetaminophen 500 Mg Tablet PO 03/06/25 03:40 Q6H PRN PAIN SCALE 1-3 (mild Albuterol/Ipratropium 3 ml 02/04/25 03:33 Albuterol/Ipratropium (Duoneb) Rt Sravani 3 Ml Nebu INH 03/06/25 03:32 Q2HR PRN SHORTNESS OF BREATH OR WHEEZE Albuterol/Ipratropium 3 ml 02/05/25 15:00 02/10/25 14:57 Albuterol/Ipratropium (Duoneb) Rt Sravani 3 Ml Nebu INH 03/07/25 14:59 3 ml Q8HRRT LISETTE Administration Aspirin 81 mg 02/09/25 09:00 02/10/25 09:55 Aspirin 81 Mg Chew PO 03/11/25 08:59 81 mg QDAY LISETTE Administration Balsam [place] Oil 0 gm 02/06/25 11:30 02/10/25 09:56 Balsam [place] Oil (Venelex) 60 Gm Tube TOP 03/08/25 11:29 1 applicatio BID LISETTE Administration Dextrose 25 ml 02/04/25 03:41 Dextrose 50%-Water Inj 50 Ml Syringe IV 03/06/25 03:40 Q15MIN PRN BG 50-70 responsive npo pt Dextrose 50 ml 02/04/25 03:41 Dextrose 50%-Water Inj 50 Ml Syringe IV 03/06/25 03:40 Q15MIN PRN BG <50 OR BG <70 & pt unresponsive Docusate Sodium 100 mg 02/04/25 09:00 02/10/25 09:54 Docusate Sod 100 Mg Capsule PO 03/06/25 08:59 100 mg QDAY LISETTE Administration Protocol Glucagon 1 mg 02/04/25 03:41 Glucagon Inj 1 Mg Vial IM Q15MIN PRN BG <70, and no IV access Heparin Sodium (Porcine) 5,000 unit 02/04/25 06:00 02/10/25 13:33 Heparin Sod Inj 5000 Unit/Ml Vial SC 02/18/25 05:59 5,000 unit Q8HR LISETTE Administration Piperacillin/Tazobactam/Dextrose 3.375 gm in 50 mls @ 12.5 mls/hr 02/04/25 06:00 02/10/25 13:33 Zosyn IV 02/11/25 05:59 12.5 mls/hr Q8HR LISETTE Administration Protocol Insulin Glargine 24 unit 02/09/25 21:00 02/09/25 21:30 Insulin Glargine (Lantus) 5 Unit/0.05 Ml (Per 5 Units) SC 03/11/25 20:59 24 unit HS LISETTE Administration Insulin Human Lispro 0 unit 02/09/25 16:42 02/10/25 12:18 Insulin Lispro (Admelog) 1 Unit/0.01 Ml Unit SC 03/07/25 11:29 3 unit ACHS LISETTE Administration Protocol Levothyroxine Sodium 100 mcg 02/04/25 06:00 02/10/25 05:37 Levothyroxine Sodium 100 Mcg Tablet PO 03/06/25 05:59 100 mcg ACBR LISETTE Administration Methylprednisolone Sodium Succinate 93.75 mg 02/05/25 09:00 02/10/25 09:55 Methylprednisolone Sod Succ 62.5 Mg/Ml 2ml Vial IVP 02/12/25 08:59 93.75 mg QDAY LISETTE Administration Metoclopramide HCl 5 mg 02/06/25 14:00 02/10/25 13:34 Metoclopramide Inj 5 Mg/Ml Vial 2 Ml IVP 03/08/25 13:59 5 mg Q8HR LISETTE Administration Protocol Metoprolol Succinate 25 mg 02/04/25 09:00 02/10/25 09:55 Metoprolol Succinate Xl 25 Mg Tabcr PO 03/06/25 08:59 25 mg QDAY LISETTE Administration Naloxegol 25 mg 02/05/25 08:00 02/10/25 05:34 Naloxegol Oxalate 25 Mg Tablet (Non-Formulary) PO 03/06/25 08:59 25 mg ACBR LISETTE Administration Ondansetron HCl 4 mg 02/04/25 03:33 Ondansetron Inj 2 Mg/Ml Inj 2 Ml IVP 03/06/25 03:32 Q6H PRN NAUSEA OR VOMITING Protocol Pantoprazole Sodium 40 mg 02/10/25 09:00 02/10/25 09:54 Pantoprazole 40 Mg Tablet PO 03/12/25 08:59 40 mg QDAY LISETTE Administration Protocol Sennosides 1 tab 02/04/25 09:00 02/10/25 09:54 Senna Tablet PO 03/06/25 08:59 1 tab QDAY LISETTE Administration Protocol Plan 89-year-old female with past medical history of 89-year-old female with past medical history of hypothyroidism, recurrent UTIs, chronic respiratory failure, right breast cancer status post lumpectomy, bedbound, chronic back pain, type 2 diabetes, GERD, depression, pulmonary fibrosis ?, HFpEF who was brought to the ED after being found unresponsive at home. # Dysphagia secondary to esophageal stenosis s/p Dilatation - CT chest showed food in the esophagus - Speech language evaluation suggested global sales director referral and swallow studies Plan - Consulted Dr. 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 Patient was found to be desaturating on pulse ox at her home Chest x-ray showed bilateral lung opacities, pneumonia versus pulmonary edema in the differential Follow-up ABG showed improvement in an acid-base status we will continue on BiPAP at this time Blood cultures sent ? Continue IV Zosyn ? DuoNebs as needed ? BiPAP at nighttime and whenever she is taking long naps ? Pulmonology Dr. Jerez onboard, started on Solumedrol 93.75 mg IV once daily #HFpEF [65%] Presented with clinical signs such as shortness of breath, bilateral leg swelling, CXR: Bilateral lung opacities, pulmonary edema BNP: 163 Last echo: December 2024: Normal left ventricular size and function. Approximate ejection fraction is 65%. Trace mitral and trace tricuspid regurgitation. No wall motion abnormalities noted. ? Lasix held for now as patient does not appears to be fluid overloaded ? Metoprolol 25 mg daily ? Keep K>4, Mg>2 ? Provide oxygen as required ? Strict I's and O's ? Fluid restriction #Constipation Patient has not had a bowel movement in 8 days and prior to that did not have a bowel movement for multiple days from last admission Patient takes [place]'s chronically for chronic back pain could be contributing to constipation CT shows fecal impaction ? Senna ? Colace ? Movantik ? Consider enema or manual disimpaction once acute illness improves #Diabetes mellitus type 2 Last A1c: December 2024, 7.1 ? SSI ? Hypoglycemia protocol in place ? Lantus 20 units daily #Hypothyroidism ? Resumed levothyroxine as taken at home Health Maintenance: Disposition: Telemetry, IV antibiotics Feeding: carb consistent Thrombo prophylaxis: Heparin Gastric Ulcer prophylaxis: Pantoprazole CODE STATUS: Full code Patient plan of care was discussed with the attending physician, Dr. Gonzalez and senior resident Dr. Suzie Cronin, PGY1 Attending Provider Attestation/Addendum I, Kaylynn Gonzalez, DO, attest that I was physically present for the mackenzie portions of the service and evaluated the patient with the resident and I reviewed and discussed the case with the resident and agree with the resident's findings and plans of care as documented above Patient seen and evaluated this AM, tolerating diet. Mental status back at baseline. Patient is stable for discharge home. However, familiy states that home is not ready to receive patient today. Anticipate DC in AM. No acute events overnight otherwise. Patient to be on slow steroid taper on discharge. caregiver counselled at bedside to f/u with PCP prior to decrease in dose during taper to titrate insulin due to uncontrolled BG.
--- NOTE | 2025-02-10 17:23 | PC.SS ---
HISTOLOGIST returned call to [facility] staff, [facility] [place] . No response. HISTOLOGIST left message with contact information for discharge planning.
--- NOTE | 2025-02-10 20:08 | PD.IMPROG ---
Documentation for date of: 02/10/25 Subjective Subjective Interval history: Patient evaluated Dysphagia improved after endoscopic guidewire savory dilatation Patient overnight on BiPAP Exam Vital Signs Temp Pulse Resp BP Pulse Ox O2 Del Method O2 Flow Rate 97.0 F 95 18 142/64 H 97 Nasal Cannula 2 02/10/25 16:00 02/10/25 19:21 02/10/25 19:21 02/10/25 16:00 02/10/25 19:21 02/10/25 16:00 02/10/25 19:21 FiO2 45 02/10/25 04:00 Objective Labs 02/10/25 07:57 02/10/25 07:57 Labs: Laboratory Results - last 24 hr 02/10/25 07:57 WBC 10.0 RBC 3.70 L Hgb 10.3 L Hct 33.8 L MCV 91 MCH 27.8 MCHC 30.5 L RDW Std Deviation 52.1 H Plt Count 241 Neut % (Auto) 66 Lymph % (Auto) 16 [place] % (Auto) 9 Eos % (Auto) 3 Baso % (Auto) 1 Neut # (Auto) 6.6 Lymph # (Auto) 1.6 [place] # (Auto) 0.9 H Eos # (Auto) 0.3 Baso # (Auto) 0.1 Immature Gran # (Auto) 0.44 H Absolute Nucleated RBC 0.00 Immature Gran % 4 H Nucleated RBC % 0 Sodium 139 Potassium 3.9 Chloride 100 Carbon Dioxide 34.2 H Anion Gap 5 L BUN 18 Creatinine 1.1 Estim Creat Clear Calc 44.2 L eGFR 48 L BUN/Creatinine Ratio 16 Glucose 165 H Calculated Osmolality 283 Calcium 9.6 Corrected Calcium 10.2 H Total Bilirubin 0.5 AST 36 H ALT 93 H Alkaline Phosphatase 54 Total Protein 5.6 L Albumin 3.3 L Globulin 2.3 Albumin/Globulin Ratio 1.4 Impressions Impression: Dysphagia secondary to esophageal stricture Endoscopic guidewire savory dilatation of the proximal esophagus stricture Plan Continue current management ABG Interpretation ABG results: 02/03/25 02/03/25 02/03/25 20:30 21:14 22:29 ABG pH 7.28 L ABG pCO2 91 H* ABG pO2 91 ABG HCO3 43 H ABG O2 Saturation 97 ABG Base Excess 13 H VBG pH 7.55 7.39 VBG pCO2 42 68 H D VBG pO2 171 H 80 H D VBG Base Excess 13 H 13 H 02/04/25 02/04/25 02/04/25 01:20 03:15 07:48 ABG pH 7.28 L 7.31 L ABG pCO2 91 H* 86 H* ABG pO2 73 L 72 L ABG HCO3 43 H 43 H ABG O2 Saturation 94 94 ABG Base Excess 13 H 14 H VBG pH 7.43 VBG pCO2 64 H VBG pO2 88 H VBG Base Excess 15 H 02/06/25 02/07/25 02/08/25 08:11 06:10 09:11 ABG pH 7.35 7.36 ABG pCO2 75 H* D 81 H* ABG pO2 88 125 H D ABG HCO3 41 H 45 H ABG O2 Saturation 96 98 ABG Base Excess 14 H 17 H VBG pH 7.58 VBG pCO2 49 VBG pO2 50 VBG Base Excess 22 H 02/09/25 09:08 ABG pH ABG pCO2 ABG pO2 ABG HCO3 ABG O2 Saturation ABG Base Excess VBG pH 7.32 L VBG pCO2 68 H D VBG pO2 60 H VBG Base Excess 7 H Assessment & Plan A&P Narrative # Progressive dysphagia # Acute hypoxic hypercapnic respiratory failure requiring frequent BiPAP pressure spoke with the dimensional inspector Will speak with Jg the nephew according to caretake Lissy Consent for fiberoptic esophagogastroduodenoscopy with possible biopsy possible therapeutic intervention under intravenous moderate sedation if the respiratory status will allow that Plan Once patient's respiratory status improves we will consider doing fiberoptic esophagogastroduodenoscopy with possible biopsy possible therapeutic intervention under intravenous moderate sedation Other medical problems include Bilateral pneumonia most likely underlying interstitial lung disease Diabetes mellitus type 2 Hypothyroidism Stool impaction Time Spent With Patient Time: Total time spent is greater than 50% in coordination of care (as documented) at patient's floor/unit and/or counseling patient:
[2025-02-10] MEDS: ACETAMINOPHEN 500 MG TABLET 1000 MG PO (21:27)
[2025-02-10] MEDS: INSULIN GLARGINE (Lantus) 5 UNIT/0.05 ML (PER 5 UNITS) 24 UNIT SC (22:06)
[2025-02-11] VITALS (8 sets, daily range): BP systolic 127–152; BP diastolic 69–91; PULSE 66–103; RESP 12–30; TEMP 36.1–36.9; O2SAT 94–100; BMI 29.2
[2025-02-11 05:33] LABS: Basophils % (Auto) 1 % (0-2.5); Eosinophils # (Auto) 0.1 Thou/mm3 (0.0-0.5); Eosinophils % (Auto) 1 % (0-10); Hematocrit 33.4 % (36.0-46.0); Hemoglobin 9.9 g/dL (12.0-16.0); Immature Granulocytes % (Auto) 4 % (0-0); Immature Granulocytes Auto 0.36 Thou/mm3 (0.00-0.00); Lymphocytes # (Auto) 1.6 Thou/mm3 (1.0-4.8); Lymphocytes % (Auto) 19 % (10-50); Mean Corpuscular HGB Conc 29.6 g/dl (31.0-37.0); Mean Corpuscular Hemoglobin 27.8 pg (25.0-35.0); Mean Corpuscular Volume 94 fL (80-100); Monocytes # (Auto) 0.7 Thou/mm3 (0.0-0.8); Monocytes % (Auto) 8 % (0-12); Neutrophils # (Auto) 5.5 Thou/mm3 (1.8-7.7); Neutrophils % (Auto) 67 % (37-80); Nucleated Red Blood Cell % 0 /100 WBC (0); Platelet Count 211 Thou/mm3 (140-440); Red Blood Count 3.56 Miln/mm3 (4.00-5.20); White Blood Count 8.2 Thou/mm3 (3.6-11.0)
[2025-02-11 05:54] LABS: Anion Gap 5 (7-16); BUN/Creatinine Ratio 13 Ratio (12-20); Blood Urea Nitrogen 16 mg/dL (9-23); Calcium 9.2 mg/dL (8.3-10.6); Carbon Dioxide 31.4 mMol/L (20.0-31.0); Chloride 102 mMol/L (98-107); Creatinine (Component) 1.2 mg/dL (0.6-1.3); Estimated Creatinine Clearance 41.4 mL/min (>60); Glucose 185 mg/dL (74-106); Osmolality,Calculated 281 (275-295); Potassium 4.5 mMol/L (3.4-5.1); Sodium 138 mMol/L (136-145); eGFR 44 See Note
[2025-02-11] MEDS: METOCLOPRAMIDE INJ 5 MG/ML VIAL 2 ML IVP (06:02)
[2025-02-11] MEDS: LEVOTHYROXINE SODIUM 100 MCG TABLET PO (06:02)
[2025-02-11] MEDS: HEPARIN SOD INJ 5000 UNIT/ML VIAL SC (06:02)
[2025-02-11] MEDS: NALOXEGOL OXALATE 25 MG TABLET (NON-FORMULARY) PO (06:02)
[2025-02-11] MEDS: ALBUTEROL/IPRATROPIUM (Duoneb) RT SOL 3 ML NEBU INH ×2 (06:44→15:08)
[2025-02-11] MEDS: PANTOPRAZOLE 40 MG TABLET PO (08:02)
[2025-02-11] MEDS: predniSONE 20 MG TABLET 40 MG PO (08:03)
[2025-02-11] MEDS: INSULIN LISPRO (AdmeLOG) 1 UNIT/0.01 ML UNIT SC ×2 (08:03→11:34)
[2025-02-11] MEDS: DOCUSATE SOD 100 MG CAPSULE PO (08:05)
[2025-02-11] MEDS: METOPROLOL SUCCINATE XL 25 MG TABCR PO (08:05)
[2025-02-11] MEDS: ASPIRIN 81 MG CHEW PO (08:05)
[2025-02-11] MEDS: BALSAM PERU/CASTOR OIL (Venelex) 60 GM TUBE TOP (08:09)
[2025-02-11] MEDS: SENNA TABLET 1 TAB PO (08:12)
--- NOTE | 2025-02-11 12:01 | PC.SS ---
Addendum entered by DAXA Reese 02/11/25 13:44: [facility] dispatched moved ETA for transport to 3pm. RN and hospice agency staff made aware. Original Note: SS follow up: patient will d/c home with [facility] hospice services back home. Patient's nephew Jg confirmed the d/c plan. Requested transportation to be arranged. CALISTA obtained by transfer nurse Marilynn. ETA with [facility] is 2pm. Terrie with [facility] hospice, Krista and patient aware. BIPAP setting were sent to [facility] via [employer].
--- NOTE | 2025-02-11 17:10 | ESDS_ITS ---
Planned Discharge Date 02/11/25 DS: Providers Provider Date of admission: 02/04/25 03:33 Primary care physician: Physician No Primary/Family Admitting Provider: Phuc Yo MD Attending Provider on Admission: Phuc Yo MD Consults: 02/05/25 16:08 Referral Hospice Routine Comment: 02/05/25 18:29 Referral Wound Care Routine Comment: 02/06/25 12:37 Referral Speech Therapy Stat Comment: 02/07/25 09:27 Consult to Pulmonology Routine Comment: ILD Consulting Provider: Justin Jerez I 02/07/25 09:32 Consult to Gastroenterology Routine Comment: dysphagia, regurg Consulting Provider: Vicenta Peters 02/07/25 14:29 Referral Registered Dietitian Routine Comment: Wounds Attending Provider on DC: Leighton Cronin MD Discharging Provider: Leighton Cronin MD DS: Diagnosis Problem List Completed Was Problem List Reviewed/Reconciled?: Yes Hospital Course Hospital Course Hospital course: A 89-year-old female with past medical history of hypothyroidism, recurrent UTIs, chronic respiratory failure, right breast cancer status post lumpectomy, bedbound, chronic back pain, type 2 diabetes, GERD, depression, pulmonary fibrosis ?, HFpEF with recurrent hospitalizations who was brought to the ED after being found to be lethargic at home and admitted for acute encephalopathy secondary to acute on chronic hypoxic, hypercapnic respiratory failure with suspected underlying ILD Hospital course: Vitals at the time of admission 118/69, HR 118, respiratory rate 26, saturating 93% on oxy mask. Labs at the time of admission include Leukocytosis, normocytic anemia, ABG shows respiratory acidosis with hypercapnia, bicarb 33.4, ammonia 57, BNP 165 urine shows positive nitrites, multiple WBCs, yeast, likely contaminant, U-Tox positive for opiates, head CT was negative, chest x-ray shows bilateral pneumonia, mild to moderate CHF, CT chest abdomen pelvis shows bilateral groundglass opacities, possible aspiration/pneumonitis, mild constipation, rectal fecal impaction. Patient was treated with antibiotics and kept on BiPAP as needed and during nighttime. Patient's home BiPAP is brought to the hospital and patient was kept overnight on BiPAP her home BiPAP and VBG done next morning showed no CO2 retention. Recommended to continue the BiPAP with same calibrations. Consulted railway traction line worker, Dr. Jerez and based on patient's clinical condition and imaging, he recommended it could be getting hypersensitivity pneumonitis and patient was started on steroids during the hospitalization. Later patient was suspected to have aspiration for which manager social services, Dr. Peters was consulted and he did an EGD on the patient, found to have esophageal stenosis which was dilated during the hospitalization. Patient is discharged to home with steroid medication for 6 months and also recommended to change the insulation system in the air conditioning Patient is discharged home with the following medications and recommendations -Follow-up with PCP within 1 week of discharge. If you do not have appointment, please follow-up with the located within [facility] with Dr. Cronin. Call [phone] to make an appointment. -Start taking prednisone as prescribed and taper -Insulin needs to be adjusted when steroid dose is tapered down each month -Recommended to take send homolog as per sliding scale -Recommended to take Lasix 20 Mg instead of 40 mg every day -Recommended to take rest of the home medications as prescribed -Recommended salt and fluid restriction. -Return to ED if symptoms persist or return our: #Dysphagia secondary to esophageal stenosis s/p Dilatation #Acute encephalopathy, resolved likely secondary to #Acute on chronic hypoxic and hypercapnic respiratory failure #Underlying chronic lung disease, likely ILD - Possible Hypersensitivity pneumonitis #suspected superimposed pneumonia #HFpEF [65%] #Constipation #Diabetes mellitus type 2 #Hypothyroidism Patient plan of care was discussed with the attending physician, Dr. Srinath Cronin, PGY1 Time Spent with Patient Time attestation: Total time spent providing and/or coordinating discharge services: Time spent: Greater than 30 minutes Exam Vital Signs Temp Pulse Resp BP Pulse Ox O2 Del Method O2 Flow Rate 97.3 F 103 H 30 H 128/69 94 L Room Air 2 02/11/25 15:46 02/11/25 15:46 02/11/25 15:46 02/11/25 15:46 02/11/25 15:46 02/11/25 15:46 02/11/25 15:10 FiO2 36 02/11/25 04:00 Narrative Exam General:Awake HEENT: Normocephalic, atraumatic, mucous membranes moist. Heart: Regular rate and rhythm, no murmurs. Lungs: Bilateral fine inspiratory crackles are heard. Bilateral bronchial breath sounds heard Abdomen: Soft, nondistended, nontender, positive bowel sounds. ?No guarding or rebound tenderness. Neurologic: no gross neurological deficit, and patient able to move all 4 extremities. Extremities: No edema. Skin: No rash or ecchymoses. Discharge Plan Plan Patient Disposition: HOME (Self Care) Patient condition on transfer: Stable Care Plan Goals: -Follow-up with PCP within 1 week of discharge. If you do not have appointment, please follow-up with the located within [facility] with Dr. Cronin. Call [phone] to make an appointment. -Start taking prednisone as prescribed and taper -Insulin needs to be adjusted when steroid dose is tapered down each month -Recommended to take send homolog as per sliding scale -Recommended to take Lasix 20 Mg instead of 40 mg every day -Recommended to take rest of the home medications as prescribed -Recommended salt and fluid restriction. -Return to ED if symptoms persist or return Prescriptions/Referrals Prescriptions/Med Rec: New prednisone 10 mg tablet See Taper PO QDAY Qty: 360 0RF Taper: Prednisone Taper 40 mg DAILY for 30 Days and 0 Hour 30 mg DAILY for 30 Days and 0 Hour 20 mg DAILY for 30 Days and 0 Hour 10 mg DAILY for 30 Days and 0 Hour 5 mg DAILY for 30 Days and 0 Hour Rx Instructions: Take 40 mg (4, 10 mg tablets) for 30 days, then Take 30 mg (3, 10 mg tablets) for 30 days, then Take 20 mg (2, 10 mg tablets) for 30 days, then Take 10 mg (1, 10 mg tablet) for 30 days, then Take 5 mg (1/2, 10 mg tablet) for 30 days insulin lispro [Humalog KwikPen Insulin] 100 unit/mL insulin pen 1 sliding scale dose subcut USEASDIRECTD Qty: 15 3RF insulin aspart U-100 [Novolog FlexPen U-100 Insulin] 100 unit/mL (3 mL) insulin pen 1 sliding scale dose subcut USEASDIRECTD Qty: 15 3RF Rx Instructions: Take insulin as per sliding scale Continued levothyroxine 75 mcg Tablet 100 mcg PO QAM Rx Instructions: pt now taking 100 MCG methenamine hippurate 1 gram tablet 1 g PO BID Patient Comments: TAKE 1 TABLET BY MOUTH TWICE A DAY WITH 500 MG OF VITAMIN C Rx Instructions: TAKE 1 TABLET BY MOUTH TWICE A DAY WITH 500 MG OF VITAMIN C venlafaxine 150 mg capsule,extended release 24hr 150 mg PO HS omeprazole 40 mg Capsule,Delayed Release(Dr/Ec) 40 mg PO QDAY rosuvastatin 5 mg Tablet 5 mg PO HS aspirin 81 mg Tablet 81 mg PO QDAY ascorbic acid (vitamin C) [Vitamin C] 500 mg Tablet 500 mg PO BID metoprolol succinate 25 mg Tablet Extended Release 24 Hr 25 mg PO QDAY Qty: 30 0RF insulin glargine [Lantus U-100 Insulin] 100 unit/mL solution 20 unit SUBCUT HS hydrocodone-acetaminophen 10-325 mg tablet 1 tab PO Q12H PRN (Reason: pain) pramipexole 0.5 mg tablet 1 mg PO HS Patient Comments: TAKE 1 TABLET BY MOUTH EVERYDAY AT BEDTIME cranberry 500 mg capsule 1,000 mg PO QDAY Rx Instructions: administer with a meal Probiotic 20 billion cell capsule 25,000 mmu cells PO QDAY Rx Instructions: administer with a meal calcium carbonate-vitamin D3 [Calcium 600 + D(3)] 600 mg-5 mcg (200 unit) tablet 0.5 tab PO QDAY Changed furosemide 40 mg tablet 20 mg PO QAM Qty: 30 2RF Patient Comments: TAKE 1 TABLET BY MOUTH EVERY DAY IN THE MORNING Discontinued magnesium 500 mg Tablet 1,000 mg PO QDAY Referrals: No Primary/Family,Physician [Primary Care Provider] - Patient/Caregiver Discharge Instructions Education Materials: Chronic Lung Disease Caregivers, Chronic Lung Disease Preventing ..., Asthma Action Plan, Chronic Lung Disease Info Families, Chronic Lung Disease Dyspnea Scale Print Language: Barbadian Stand Alone Forms: [employer]sabel Award Info., Patient Portal Info Letter Discharge Order Discharge Orders: Discharge (Routine); Ordered 02/11/25 Ordered By: Leighton Cronin Quality Discharge Quality Measures VTE prophylaxis
== END 2025-02-11 16:03 | disposition home or self-care (01) | DRG 391 ==
LOC: SERX 02-04 03:07 → SERHOLD 02-04 04:11 → S2NX 02-04 20:25
PROVIDERS: Specialist; Student in an Organized Health Care Education/Training Program; Admitting Provider Student in an Organized Health Care Education/Training Program; Emergency Provider Emergency Medicine; Visit Provider Student in an Organized Health Care Education/Training Program
PROC: 0D758ZZ Dilation of Esophagus, Via Natural or Artificial Opening Endoscopic (ICD-10-PCS; CPT 43239; principal; 2025-02-08 19:30)
DX: K22.2 Esophageal obstruction (principal); G93.41 Metabolic encephalopathy; I50.33 Acute on chronic diastolic (congestive) heart failure; J18.9 Pneumonia, unspecified organism; J96.21 Acute and chronic respiratory failure with hypoxia; J96.22 Acute and chronic respiratory failure with hypercapnia; K26.4 Chronic or unspecified duodenal ulcer with hemorrhage; J44.0 Chronic obstructive pulmonary disease with (acute) lower respiratory infection; D84.9 Immunodeficiency, unspecified; E87.4 Mixed disorder of acid-base balance; J67.9 Hypersensitivity pneumonitis due to unspecified organic dust; I11.0 Hypertensive heart disease with heart failure; E03.9 Hypothyroidism, unspecified; F32.A Depression, unspecified; Z74.01 Bed confinement status; Z87.440 Personal history of urinary (tract) infections; Z85.3 Personal history of malignant neoplasm of breast; K21.9 Gastro-esophageal reflux disease without esophagitis; M54.9 Dorsalgia, unspecified; G89.29 Other chronic pain; E11.9 Type 2 diabetes mellitus without complications; J84.10 Pulmonary fibrosis, unspecified; E78.00 Pure hypercholesterolemia, unspecified; Z90.49 Acquired absence of other specified parts of digestive tract; F41.9 Anxiety disorder, unspecified; Z79.84 Long term (current) use of oral hypoglycemic drugs; K59.03 Drug induced constipation; Z79.4 Long term (current) use of insulin; T18.128A Food in esophagus causing other injury, initial encounter; W44.F3XA Food entering into or through a natural orifice, initial encounter; Z79.52 Long term (current) use of systemic steroids; Z79.899 Other long term (current) drug therapy; Z87.891 Personal history of nicotine dependence; Z99.81 Dependence on supplemental oxygen; Z88.2 Allergy status to sulfonamides; Z88.8 Allergy status to other drugs, medicaments and biological substances; K59.00 Constipation, unspecified; D64.9 Anemia, unspecified
CPT/HCPCS: 36415; 36600; 70450; 71045; 71250; 74176; 80048; 80053; 80307; 80329; 81001; 82140; 82803; 83735; 83880; 84100; 84436; 84443; 84484; 85025; 85610; 87040; 87077; 87081; 87086; 87186; 87205; 87400; 87811; 92526; 92610; 93005; 94640; 94660; 96365; 96366; 96367; 96372; 96375; 99291; 99292; A9270; C1769; J0456; J1644; J1815; J2021; J2250; J2470; J2543; J2765; J2919; J3010; J3370; J7050; J7512; G0480

== ENCOUNTER 2025-02-14 09:58 | Inpatient (IN) | payer MEDICARE, SELFPAY ==
[2025-02-14] VITALS (23 sets, daily range): BP systolic 89–133; BP diastolic 42–83; PULSE 67–89; RESP 18–24; TEMP 36.1–36.7; O2SAT 92–100; BMI 39.9
--- NOTE | 2025-02-14 12:00 | PC.NURSE ---
Patient presents to ED via ambulance with c/o altered mental status due to low blood sugar, treated by EMS. Per EMS patient also had fall off EMS gurney onto left side, noted bruising to left upper arm, also noted healing bruising to left lower arm . Per EMS, patient had previous admission in hospital. Patient awakens to painful stimuli, only nods yes or no. Patient call light placed within reach.
--- NOTE | 2025-02-14 12:12 | XR_ITS ---
Examination: AP chest single view Technique one AP portable semiupright chest single view Date and time: February 14, 2025 12:32 PM Comparison February 07, 2025 INDICATIONS: Altered mental status rims of breath today FINDINGS: Extensive bilateral lung opacity with enlarged cardiac contour prominent vascular congestion Prominent osteopenia Mild linear right pleural fluid IMPRESSION: Moderate heart failure, consider superimposed bilateral pneumonia
--- NOTE | 2025-02-14 12:12 | XR_ITS ---
Examination: CT cervical spine without contrast 2-D sagittal reconstructions 2-D coronal reconstructions 3-D reconstructions. Exam date and time:February 14, 2025 1434 hours INDICATIONS: Patient fell today with into the neck, neck pain CTDI:vol (mGy) 11.3 DLP: (mGycm) 246 Technique: Multiple 2 mm axial sections of the cervical spine have been obtained. The coronal and sagittal reconstructions have been obtained. 3-D reconstructions have been obtained. Low dose protocols were performed. One or more of the following dose reduction techniques were used; automated exposure control, adjustment of the mA and/or KV according to patient size, use of iterative reconstruction technique. Findings: Axial sections demonstrate intact base of the skull. C1 exhibit satisfactory relationship to the odontoid. No acute cervical vertebral body fracture seen. Alignment posterior spinous processes satisfactory. Impression: No acute cervical fracture.
--- NOTE | 2025-02-14 12:12 | XR_ITS ---
Examination: Humerus 2 views left Technique: Humerus, AP lateral 2 views Date and time of exam: February 14, 2025 1232 hours INDICATIONS: Patient fell today with injury to the arm, arm pain FINDINGS: No shoulder fracture or dislocation Shaft of the humerus intact IMPRESSION: Advanced osteoarthritis glenohumeral joint No fracture
--- NOTE | 2025-02-14 12:12 | XR_ITS ---
Examination: CT brain head without contrast. 2-D sagittal coronal reconstructions Date and time of exam:February 14, 2025 1434 hours INDICATIONS: Onset altered mental status today CTDI: vol (mGy):53 DLP: (mGycm):1040 Technique: Multiple CT axial sections of the brain have been obtained, 5 mm slice thickness. Contrast has not been administered. 2-D sagittal, coronal reconstructions have been obtained Low dose protocols were performed. One or more of the following dose reduction techniques were used; automated exposure control, adjustment of the mA and/or KV according to patient size, use of iterative reconstruction technique. Findings: No significant ventricular enlargement. Intra-axial or extra-axial hemorrhage density is not seen. No mass effect or midline shift Basal cisterns are not remarkable. Fourth ventricle is midline. Cranial vault intact. Impression: Negative for acute hemorrhage, mass effect or midline shift
--- NOTE | 2025-02-14 12:12 | EKG_ITS ---
[facility] Test Date: 2025-02-14 Pat Name: SHAN SLAUGHTER Department: Room: - Gender: Female Rigger: : [id number] Requested By: Cheryl Morrissey Order Number: [id number] Reading MD: Cheryl Morrissey Measurements Intervals [place] Rate: 76 P: 43 HI: 143 QRS: 29 QRSD: 132 T: 15 QT: 380 QTc: 428 Interpretive Statements SINUS RHYTHM WITH MARKED SINUS ARRHYTHMIA RIGHT BUNDLE BRANCH BLOCK [120+ ms QRS DURATION, UPRIGHT V1, 40+ ms S IN I/aVL/V4/V5/V6] Compared to ECG 01/07/2025 09:56:56 Sinus tachycardia no longer present /store/S0/[id number]/ecg/[id number].pdf
[2025-02-14 12:35] LABS: Inspired Oxygen, FIO2 35 %
[2025-02-14 12:43] LABS: Lactate (Lactic Acid) 1.2 mMol/L (0.4-2.0)
--- NOTE | 2025-02-14 12:44 | PD.EDAMS ---
Altered Mental Status RME/HPI General Chief Complaint: Altered Mental Status Stated Complaint: ALTERED Time Seen by Provider: 02/14/25 11:44 Arrival date/time: 02/14/25 09:58 Limitations: no limitations RME / HPI RME / HPI narrative: 89 year old female with history of pulmonary fibrosis, COPD, CHF, CO2 buildup and use of bipap at home, diabetes, chronic UTIs, chronic back pain, hypothyroidism, hx of breast cancer s/p right lumpectomy presents to the ED BIBA from home for evaluation of altered mental status today. Per medics report, on scene blood sugar was 48 and given D10 with improvement to 193. However, mental status did not improve and remained GCS of 10. While in the ED, patient is altered and unable to provide any additional history. Related Data Home Medications ?Medication ?Instructions ?Recorded ?Confirmed levothyroxine 75 mcg tablet 100 mcg PO QAM 04/18/20 02/05/25 methenamine hippurate 1 gram tablet 1 g PO BID 04/18/20 02/05/25 omeprazole 40 mg capsule,delayed 40 mg PO QDAY 06/04/21 02/05/25 release rosuvastatin 5 mg tablet 5 mg PO HS 06/04/21 02/05/25 venlafaxine 150 mg 150 mg PO HS 06/04/21 02/05/25 capsule,extended release 24 hr ascorbic acid (vitamin C) 500 mg 500 mg PO BID 03/19/24 02/05/25 tablet (Vitamin C) aspirin 81 mg tablet 81 mg PO QDAY 03/19/24 02/05/25 calcium 600 mg (as 0.5 tab PO QDAY 12/27/24 02/05/25 carbonate)-vitamin D3 5 mcg (200 unit) tablet (Calcium 600 + D(3)) cranberry 500 mg capsule 1,000 mg PO QDAY 12/27/24 02/05/25 hydrocodone 10 mg-acetaminophen 1 tab PO Q12H PRN pain 12/27/24 02/05/25 325 mg tablet lactobacillus comb no.10 20 25,000 mmu cells PO QDAY 12/27/24 02/05/25 billion cell capsule (Probiotic) pramipexole 0.5 mg tablet 1 mg PO HS 12/27/24 02/05/25 insulin glargine 100 unit/mL 20 unit subcut HS 02/05/25 02/05/25 subcutaneous solution (Lantus U-100 Insulin) Previous Rx's ?Medication ?Instructions ?Recorded metoprolol succinate 25 mg 25 mg PO QDAY #30 tabs 03/25/24 tablet,extended release 24 hr furosemide 40 mg tablet 20 mg (1/2 x 40 mg) PO QAM #30 tabs 02/10/25 insulin aspart U-100 100 unit/mL 1 sliding scale dose subcut 02/11/25 (3 mL) subcutaneous pen (Novolog USEASDIRECTD #15 mL FlexPen U-100 Insulin aspart) insulin lispro 100 unit/mL 1 sliding scale dose subcut 02/11/25 subcutaneous pen (Humalog KwikPen USEASDIRECTD #15 mL (U-100) Insulin) prednisone 10 mg tablet See Taper PO QDAY #360 tabs 02/11/25 Allergies Allergy/AdvReac Type Severity Reaction Status Date / Time cefuroxime Allergy Intermediate Swelling Verified 02/14/25 11:33 of Lip/Tongue/Throat zinc Allergy Intermediate Rash Verified 02/14/25 11:33 iodine Allergy Unknown Verified 02/14/25 11:33 shellfish derived Allergy Unknown Verified 02/14/25 11:33 Sulfa (Sulfonamide Allergy Unknown Verified 02/14/25 11:33 Antibiotics) Review of Systems Review of Systems ROS Unobtainable: unobtainable due to mental status Past Medical History Past Medical History CARDIAC: Positive Cardiac Disorders, Coronary Artery Disease, Hypercholesterolemia, Congestive Heart Failure and Hypertension RESPIRATORY: Positive Respiratory Disorders (bipap use at home, hx of co2 retention), Chronic Obstructive Pulmonary Disease (COPD), Asthma, Pneumonia, Pulmonary Fibrosis and Sleep Apnea GASTROINTESTINAL: Positive Gastrointestinal Disorders, Gall Bladder Disease, Gastroesophageal Reflux Disease and Obesity GENITOURINARY: Positive Genitourinary Disorders and Kidney Stones REPRODUCTIVE: Positive Breast Cancer MUSCULOSKELETAL: Positive Musculoskeletal Disorders, Arthritis and Fractures ENDOCRINE: Positive Endocrine Disorders, Diabetes Mellitus Type 2 and Hypothyroidism PSYCHO/SOCIAL: Positive Depression and Anxiety OTHER HISTORY: Positive Cancer and Breast Cancer Family History FAMILY HISTORY: Positive Family Cardiac Disorders and Family Cancer; Negative Family Psychiatric Problems, Family Respiratory Disorders, Family Gastrointestinal Problems, Family Surgery or Family Anesthesia Reaction Surgical History SURGICAL: Positive Tonsillectomy, Abdominal Surgery and Lumpectomy; Negative Cardiac Surgery, Open Heart Surgery, Coronary Artery Bypass Graft, Valve Replacement, Vascular Surgery, Coronary Stent, Cardiac Catheterization, Pacemaker, Angiogram, Auto Implanted Cardiovert Defib, Carotid Endarterectomy, Endocrine Surgery, Thyroidectomy, Ear Surgery, Tympanostomy Tube, Eye Surgery, Nose Surgery, Oral Surgery, Adenoidectomy, Cochlear Implant, Corneal Transplant, Throat Surgery, Tracheostomy, Gastric Bypass Surgery, Gastrostomy, Bowel Surgery, Nephrectomy, Transurethral Resection, Joint Replacement, Amputation, Open Reduction Internal Fixation, Arthroscopy, Neurologic Surgery, Brain Shunt, Mastectomy, Hysterectomy, Tubal Ligation or Section Social History SMOKING STATUS: Never smoker SECOND HAND EXPOSURE: No ED Exam General Limitations: Present no limitations General appearance: Present other (Altered, does not respond to questions or commands) Head Head exam: Present atraumatic, normocephalic and normal inspection Eye Eye exam: Present normal appearance, PERRL and EOMI ENT ENT exam: Present normal exam, normal oropharynx and mucous membranes moist Neck Neck exam: Present normal inspection, full ROM and trachea midline Chest Chest inspection: Present normal inspection and symmetric chest wall rise Respiratory Respiratory exam: Present normal lung sounds bilaterally and other (crackles bilaterally ) Cardiovascular Cardiovascular exam: Present regular rate, normal rhythm and normal heart sounds Abdominal Exam Abdominal exam: Present soft and normal bowel sounds Extremities Exam Extremities exam: Present normal inspection and full ROM Back Exam Back exam: Present normal inspection and full ROM Neurological Exam Neurological exam: Present other (Altered, does not respond to questions or commands ) Psychiatric Psychiatric exam: Present normal affect and normal mood Skin Skin exam: Present warm, dry, intact and normal color Course Quality Measures none Orders Category Date Time Status CT Screening NOW Care 02/14/25 12:14 Active EKG (ED ONLY) *Do not use* NOW Care 02/14/25 12:[address] cervical spine wo con Stat Exams 02/14/25 12:[address] chest wo con Stat Exams 02/14/25 12:[address] head/brain wo con Stat Exams 02/14/25 12:12 Completed CXRP [XR chest 1V portable] Stat Exams 02/14/25 12:12 Completed EKG (ED Only) Stat Exams 02/14/25 12:12 Draft XR humerus LT MIN 2V Stat Exams 02/14/25 12:12 Completed ABG [Arterial Blood Gas] Stat Lab 02/14/25 12:28 Completed ABG [Arterial Blood Gas] Stat Lab 02/14/25 14:09 Completed BNP [B-Type Natriuretic Peptide] Stat Lab 02/14/25 12:35 Completed Blood Culture (Lab) Stat Lab 02/14/25 12:35 Received CBC [CBC] Stat Lab 02/14/25 12:35 Completed CK [Creatine Kinase] Stat Lab 02/14/25 12:35 Completed CMP [Comprehensive Metabolic Panel] Stat Lab 02/14/25 12:35 Completed CRP [C-Reactive Protein] Stat Lab 02/14/25 12:35 Completed Lactic Acid [Lactate (Lactic Acid)] Stat Lab 02/14/25 12:35 Completed Procalcitonin Stat Lab 02/14/25 12:35 Completed TSH [Thyroid Stimulating Hormone] Stat Lab 02/14/25 12:35 Completed Troponin I Stat Lab 02/14/25 12:35 Completed UA, C/S IF [Urinalysis, C/S if Indicated] Stat Lab 02/14/25 13:25 Completed Urine Culture Stat Lab 02/14/25 13:25 Received Albuterol/Ipratr Rt Sravani [Duoneb Rt Sravani] Med 02/14/25 14:40 Discontinued 3 ml INH X1 ONE Furosemide Inj [Lasix Inj] Med 02/14/25 12:17 Discontinued 80 mg IVP X1 ONE Hydrocortisone Sod Succ Inj [SoluCORTEF Inj] Med 02/14/25 14:40 Discontinued 100 mg IV X1 ONE Piper/Tazo 3.375 gm Premix [Zosyn] Med 02/14/25 22:00 Active 3.375 gm in 50 ml IV Q8HR Piper/Tazo Inj [Zosyn Inj] 4.5 gm Med 02/14/25 12:30 Discontinued Sodium Chloride 0.9% (Pop) [NS 0.9% mini bag] 100 ml IV X1 BiPAP / CPAP NOW RT 02/14/25 12:17 Active Vital Signs Vital signs: Vital Signs Temperature 97.0 F 02/14/25 10:14 Respiratory Rate 18 02/14/25 10:14 Blood Pressure 131/57 H 02/14/25 10:14 Pulse Oximetry (%) 95 02/14/25 10:14 Oxygen Delivery Method Nasal Cannula 02/14/25 10:14 Oxygen Flow Rate 2 02/14/25 10:14 Altered Mental Status MDM Narrative MDM Narrative:: Sonali Núñez am scribing for and in the presence of Dr. Andino. Assessment: Pneumonia, sepsis secondary to UTI, hypercapnic respiratory failure. Patient demonstrated elevated PCO2 @ 88, consistent with respiratory acidosis and well-compensated metabolic response. Pulmonary hypertension due to pulmonary fibrosis. The patient is improving, as reflected by the ABG, which shows signs of correction in acid-base status. Plan: Antibiotics, respiratory support, steroid therapy, pulmonary hypertension management, heart failure although no signs of heart failure at this time, repeat ABG and clinical assessment to track improvements in respiratory status and potential adjustments in management. 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 Social determinants that could affect healthcare access:: none Patient has the following chronic illnesses:: pulmonary fibrosis, COPD, CHF, CO2 buildup and use of bipap at home, diabetes, chronic UTIs, chronic back pain, hypothyroidism, hx of breast cancer s/p right lumpectomy How is presenting disease/condition affected by chronic disease/condition?: exacerbated by Evaluation data The following diagnostics were reviewed and interpreted by me:: lab results, radiology exam(s) and EKG tracing(s) (Sinus rhythm, rate 76, right axis deviation, RBBB, rigth ventricular hypertrophy, normal QT ) Lab and/or radiology exams considered but not ordered:: None Interpretation Summary: Ordering Physician: Cheryl Morrissey MD Date of Service: 02/14/25 Procedure(s): CT cervical spine wo con Accession Number(s): [id number] cc: Cheryl Morrissey MD; Christian Cárdenas MD; NO PRIMARY/FAMILY,PHYSICIAN~ Examination: CT cervical spine without contrast 2-D sagittal reconstructions 2-D coronal reconstructions 3-D reconstructions. Exam date and time:February 14, 2025 1434 hours INDICATIONS: Patient fell today with into the neck, neck pain CTDI:vol (mGy) 11.3 DLP: (mGycm) 246 Technique: Multiple 2 mm axial sections of the cervical spine have been obtained. The coronal and sagittal reconstructions have been obtained. 3-D reconstructions have been obtained. Low dose protocols were performed. One or more of the following dose reduction techniques were used; automated exposure control, adjustment of the mA and/or KV according to patient size, use of iterative reconstruction technique. Findings: Axial sections demonstrate intact base of the skull. C1 exhibit satisfactory relationship to the odontoid. No acute cervical vertebral body fracture seen. Alignment posterior spinous processes satisfactory. Impression: No acute cervical fracture. Dictated By: Christian Cárdenas MD Signed By: <Electronically signed by Christian Cárdenas MD in OV> 02/14/25 1448 Ordering Physician: Cheryl Morrissey MD Date of Service: 02/14/25 Procedure(s): XR chest 1V portable Accession Number(s): [id number] cc: Cheryl Morrissey MD; Christina Cárdenas MD; NO PRIMARY/FAMILY,PHYSICIAN~ Examination: AP chest single view Technique one AP portable semiupright chest single view Date and time: February 14, 2025 12:32 PM Comparison February 07, 2025 INDICATIONS: Altered mental status rims of breath today FINDINGS: Extensive bilateral lung opacity with enlarged cardiac contour prominent vascular congestion Prominent osteopenia Mild linear right pleural fluid IMPRESSION: Moderate heart failure, consider superimposed bilateral pneumonia Dictated By: Christian Cárdenas MD Signed By: <Electronically signed by Christian Cárdenas MD in OV> 02/14/25 1243 Ordering Physician: Cheryl Morrissey MD Date of Service: 02/14/25 Procedure(s): CT head/brain wo con Accession Number(s): [id number] cc: Cheryl Morrissey MD; Christian Cárdenas MD; NO PRIMARY/FAMILY,PHYSICIAN~ Examination: CT brain head without contrast. 2-D sagittal coronal reconstructions Date and time of exam:February 14, 2025 1434 hours INDICATIONS: Onset altered mental status today CTDI: vol (mGy):53 DLP: (mGycm):1040 Technique: Multiple CT axial sections of the brain have been obtained, 5 mm slice thickness. Contrast has not been administered. 2-D sagittal, coronal reconstructions have been obtained Low dose protocols were performed. One or more of the following dose reduction techniques were used; automated exposure control, adjustment of the mA and/or KV according to patient size, use of iterative reconstruction technique. Findings: No significant ventricular enlargement. Intra-axial or extra-axial hemorrhage density is not seen. No mass effect or midline shift Basal cisterns are not remarkable. Fourth ventricle is midline. Cranial vault intact. Impression: Negative for acute hemorrhage, mass effect or midline shift Dictated By: Christian Cárdenas MD Signed By: <Electronically signed by Christian Cárdenas MD in OV> 02/14/25 1451 Ordering Physician: Cheryl Morrissey MD Date of Service: 02/14/25 Procedure(s): XR humerus LT MIN 2V Accession Number(s): [id number] cc: Cheryl Morrissey MD; Christian Cárdenas MD; NO PRIMARY/FAMILY,PHYSICIAN~ Examination: Humerus 2 views left Technique: Humerus, AP lateral 2 views Date and time of exam: February 14, 2025 1232 hours INDICATIONS: Patient fell today with injury to the arm, arm pain FINDINGS: No shoulder fracture or dislocation Shaft of the humerus intact IMPRESSION: Advanced osteoarthritis glenohumeral joint No fracture Dictated By: Christian Cárdenas MD Signed By: <Electronically signed by Christian Cárdenas MD in OV> 02/14/25 1244 Ordering Physician: Cheryl Morrissey MD Date of Service: 02/14/25 Procedure(s): CT chest wo [facility] Accession Number(s): [id number] cc: Cheryl Morrissey MD; Christian Cárdenas MD; NO PRIMARY/FAMILY,PHYSICIAN~ Examination: CT chest, without intravenous contrast. Sagittal and coronal 2-D reconstructions. Exam date and time: February 14, 2025 1432 hours INDICATIONS: Onset shortness of breath today CTDI:vol (mGy) 26.9 DLP: (mGycm) 894 Technique: Multiple 3.0 mm axial sections of the chest to been obtained. Bone and lung density settings are obtained. Sagittal and coronal 2-D reconstructions have been obtained. Low dose protocols were performed. One or more of the following dose reduction techniques were used; automated exposure control, adjustment of the mA and/or KV according to patient size, use of iterative reconstruction technique. Findings: No thoracic aortic aneurysmal dilatation Enlarged main pulmonary artery segment 3.9 cm Heavy calcification left anterior descending coronary artery Mild to moderate enlargement cardiac contour with prominent vascular congestion and pulmonary edema No pleural disease No visualized liver or splenic lesion Absent gallbladder No pancreatic or adrenal mass Prominent osteopenia IMPRESSION: Pulmonary artery hypertension Mild to moderate heart failure Consider superimposed bilateral pneumonia, clinical correlation advised Dictated By: Christian Cárdenas MD Signed By: <Electronically signed by Crhistian Cárdenas MD in OV> 02/14/25 1003 Medications / Prescriptions Medications or Prescriptions considered but not ordered:: None Medication administrations:: Medication Administration History Piperacillin/Tazobactam/Dextrose (Zosyn) 3.375 gm in 50 mls @ 12.5 mls/hr IV Q8HR LISETTE Stop: 02/21/25 21:59 Discontinued Medications Albuterol/Ipratropium (Albuterol/Ipratropium (Duoneb) Rt Sravani 3 Ml Nebu) 3 ml INH X1 ONE Stop: 02/14/25 14:41 Last Admin: 02/14/25 15:14 Dose: 3 ml Documented By: OSITO Furosemide (Furosemide Inj 10 Mg/Ml 4ml Vial) 80 mg IVP X1 ONE Stop: 02/14/25 12:18 Last Admin: 02/14/25 13:34 Dose: 80 mg Documented By: OSITO(2) Hydrocortisone Sodium Succinate (Hydrocortisone Sod Succ Inj 100 Mg Vial) 100 mg IV X1 ONE Stop: 02/14/25 14:41 Last Admin: 02/14/25 15:12 Dose: 100 mg Documented By: OSITO(2) Piperacillin Sod/Tazobactam (Sod 4.5 gm/ Sodium Chloride) 100 mls @ 200 mls/hr IV X1 ONE Stop: 02/14/25 12:59 Last Infusion: 02/14/25 14:26 Dose: Infused Documented By: OSITO(2) Admin: 02/14/25 13:40 Dose: 200 mls/hr Documented By: OSITO(2) See above Consultations Consultation(s) initiated? (list below): No Diagnosis Differential diagnosis altered mental status: altered mental status, delirium, hypoglycemia, hyponatremia, sepsis and other (pna, UTI) Most likely diagnosis given after review of the tests above:: Hypercapneic respiratory failure PNA UTI Admission Indicated Admission indicated?: indicated Admission Request Was there a request for admission?: Yes Admission Attestation Admission request attestation: Discussed case with [] from Hospitalist service regarding admission. Discussed patients ED course, exam findings, labs, and radiology results. The Hospitalist [agrees,declines] to accept the patient for admission. Disposition Plan Disposition Plan: Admit Critical Care Time Critical Care Time Critical Care Time: Yes Total Critical Care Time (min.): 60 Attestation: The high probability of sudden, clinically significant deterioration in the patient's condition required the highest level of my preparedness to intervene urgently. The services I provided to this patient were to treat and/or prevent clinically significant deterioration. Services included the following: chart data review, reviewing nursing notes and/or old charts, documentation time, senior erp consultant collaboration regarding findings and treatment options, medication orders and management, direct patient care, vital sign assessments and ordering, interpreting and reviewing diagnostic studies and lab tests. Aggregate critical care time includes only time during which I was engaged in work directly related to the patient's care, as described above, whether at bedside or elsewhere in the Emergency Department. It did not include time spent performing other reported procedures or the services of residents, students, nurses or physician assistants. Discharge Plan Plan Patient Disposition: Admit Acute Care w/in Hospital Prescriptions/Referrals Prescriptions/Med Rec: No Action levothyroxine 75 mcg Tablet 100 mcg PO QAM Rx Instructions: pt now taking 100 MCG methenamine hippurate 1 gram tablet 1 g PO BID Patient Comments: TAKE 1 TABLET BY MOUTH TWICE A DAY WITH 500 MG OF VITAMIN C Rx Instructions: TAKE 1 TABLET BY MOUTH TWICE A DAY WITH 500 MG OF VITAMIN C venlafaxine 150 mg capsule,extended release 24hr 150 mg PO HS omeprazole 40 mg Capsule,Delayed Release(Dr/Ec) 40 mg PO QDAY rosuvastatin 5 mg Tablet 5 mg PO HS aspirin 81 mg Tablet 81 mg PO QDAY ascorbic acid (vitamin C) [Vitamin C] 500 mg Tablet 500 mg PO BID metoprolol succinate 25 mg Tablet Extended Release 24 Hr 25 mg PO QDAY Qty: 30 0RF insulin glargine [Lantus U-100 Insulin] 100 unit/mL solution 20 unit SUBCUT HS furosemide 40 mg tablet 20 mg PO QAM Qty: 30 2RF Patient Comments: TAKE 1 TABLET BY MOUTH EVERY DAY IN THE MORNING prednisone 10 mg tablet See Taper PO QDAY Qty: 360 0RF Taper: Prednisone Taper 40 mg DAILY for 30 Days and 0 Hour 30 mg DAILY for 30 Days and 0 Hour 20 mg DAILY for 30 Days and 0 Hour 10 mg DAILY for 30 Days and 0 Hour 5 mg DAILY for 30 Days and 0 Hour Rx Instructions: Take 40 mg (4, 10 mg tablets) for 30 days, then Take 30 mg (3, 10 mg tablets) for 30 days, then Take 20 mg (2, 10 mg tablets) for 30 days, then Take 10 mg (1, 10 mg tablet) for 30 days, then Take 5 mg (1/2, 10 mg tablet) for 30 days insulin lispro [Humalog KwikPen Insulin] 100 unit/mL insulin pen 1 sliding scale dose subcut USEASDIRECTD Qty: 15 3RF insulin aspart U-100 [Novolog FlexPen U-100 Insulin] 100 unit/mL (3 mL) insulin pen 1 sliding scale dose subcut USEASDIRECTD Qty: 15 3RF Rx Instructions: Take insulin as per sliding scale hydrocodone-acetaminophen 10-325 mg tablet 1 tab PO Q12H PRN (Reason: pain) pramipexole 0.5 mg tablet 1 mg PO HS Patient Comments: TAKE 1 TABLET BY MOUTH EVERYDAY AT BEDTIME cranberry 500 mg capsule 1,000 mg PO QDAY Rx Instructions: administer with a meal Probiotic 20 billion cell capsule 25,000 mmu cells PO QDAY Rx Instructions: administer with a meal calcium carbonate-vitamin D3 [Calcium 600 + D(3)] 600 mg-5 mcg (200 unit) tablet 0.5 tab PO QDAY Referrals: No Primary/Family,Physician [Primary Care Provider] - In 1 week Problem List Clinical Impression: Hypercapnic respiratory failure, Pneumonia, UTI (urinary tract infection) Patient/Caregiver Discharge Instructions Print Language: Thai Stand Alone Forms: [employer] Award Info., Patient Portal Info Letter
[2025-02-14 12:45] LABS: Base Excess 8 (-3-3); HCO3 38 mEq/L (20-26); O2 Saturation 95 % (91-98); PCO2 88 mmHg (32.0-48.0); PO2 87 mmHg (83-108); pH, Arterial 7.24 (7.35-7.45)
[2025-02-14 12:46] LABS: Basophils # (Auto) 0.0 Thou/mm3 (0.0-0.2); Basophils % (Auto) 0 % (0-2.5); Eosinophils # (Auto) 0.2 Thou/mm3 (0.0-0.5); Eosinophils % (Auto) 1 % (0-10); Hematocrit 36.8 % (36.0-46.0); Hemoglobin 10.8 g/dL (12.0-16.0); Immature Granulocytes Auto 0.35 Thou/mm3 (0.00-0.00); Lymphocytes # (Auto) 0.7 Thou/mm3 (1.0-4.8); Lymphocytes % (Auto) 5 % (10-50); Mean Corpuscular HGB Conc 29.3 g/dl (31.0-37.0); Mean Corpuscular Hemoglobin 27.4 pg (25.0-35.0); Mean Corpuscular Volume 93 fL (80-100); Monocytes # (Auto) 0.5 Thou/mm3 (0.0-0.8); Monocytes % (Auto) 3 % (0-12); Neutrophils # (Auto) 14.4 Thou/mm3 (1.8-7.7); Neutrophils % (Auto) 89 % (37-80); Nucleated Red Blood Cell # 0.00 Thou/mm3 (0.00-0.00); Nucleated Red Blood Cell % 0 /100 WBC (0); Platelet Count 222 Thou/mm3 (140-440); RDW Standard Deviation 54.4 fL (36.4-46.3); Red Blood Count 3.94 Miln/mm3 (4.00-5.20); White Blood Count 16.2 Thou/mm3 (3.6-11.0)
[2025-02-14 12:48] LABS: Puncture Site Right Radial
[2025-02-14 12:49] LABS: Allen Test Performed/OK
--- NOTE | 2025-02-14 12:56 | XR_ITS ---
Examination: CT chest, without intravenous contrast. Sagittal and coronal 2-D reconstructions. Exam date and time: February 14, 2025 1432 hours INDICATIONS: Onset shortness of breath today CTDI:vol (mGy) 26.9 DLP: (mGycm) 894 Technique: Multiple 3.0 mm axial sections of the chest to been obtained. Bone and lung density settings are obtained. Sagittal and coronal 2-D reconstructions have been obtained. Low dose protocols were performed. One or more of the following dose reduction techniques were used; automated exposure control, adjustment of the mA and/or KV according to patient size, use of iterative reconstruction technique. Findings: No thoracic aortic aneurysmal dilatation Enlarged main pulmonary artery segment 3.9 cm Heavy calcification left anterior descending coronary artery Mild to moderate enlargement cardiac contour with prominent vascular congestion and pulmonary edema No pleural disease No visualized liver or splenic lesion Absent gallbladder No pancreatic or adrenal mass Prominent osteopenia IMPRESSION: Pulmonary artery hypertension Mild to moderate heart failure Consider superimposed bilateral pneumonia, clinical correlation advised
[2025-02-14 13:07] LABS: B-Type Natriuretic Peptide 63 pg/mL (0-100)
[2025-02-14 13:17] LABS: Alanine Aminotransferase 29 U/L (10-49); Albumin, Serum 3.5 gm/dL (3.4-4.8); Albumin/Globulin Ratio 1.5 (1.2-2.2); Alkaline Phosphatase 50 U/L (46-116); Anion Gap 0 (7-16); Aspartate Amino Transferase 14 U/L (0-34); BUN/Creatinine Ratio 24 Ratio (12-20); Bilirubin,Total 0.3 mg/dL (0.3-1.2); Blood Urea Nitrogen 26 mg/dL (9-23); C-Reactive Protein < 0.5 mg/dL (0.0-0.9); Calcium 10.3 mg/dL (8.3-10.6); Calcium (Corrected) 10.7 mg/dL (8.5-10.1); Carbon Dioxide 36.6 mMol/L (20.0-31.0); Chloride 99 mMol/L (98-107); Creatine Kinase 18 U/L (34-171); Creatinine (Component) 1.1 mg/dL (0.6-1.3); Estimated Creatinine Clearance 38.8 mL/min (>60); Globulin 2.4 gm/dL (2.3-3.5); Glucose 135 mg/dL (74-106); Osmolality,Calculated 278 (275-295); Potassium 4.6 mMol/L (3.4-5.1); Procalcitonin 0.12 ng/ml (0.0-0.49); Sodium 136 mMol/L (136-145); Thyroid Stimulating Hormone 1.00 uIU/mL (0.55-4.78); Total Protein 5.9 gm/dL (5.7-8.2); Troponin I < 0.020 ng/mL (0.0-0.045); eGFR 48 See Note
[2025-02-14] MEDS: FUROSEMIDE INJ 10 MG/ML 4ML VIAL 80 MG IVP (13:34)
[2025-02-14 13:37] LABS: Collection Type, Urine Clean Catch
[2025-02-14] MEDS: PIPER/TAZO INJ 4.5 GM in SODIUM CHLORIDE 0.9% (POP) 100 ML IV (13:40)
[2025-02-14 14:26] LABS: Bilirubin,Urine Negative (Negative); Blood,Urine 3+ (Negative); Budding Yeast,Urine Present; Calcium Oxalate Crystals,Urine 1+; Color,Urine Lt-Yellow (Lt Yel-Yel); Glucose, Urine Negative (Negative); Ketones,Urine Negative (Negative); Leukocyte Esterase,Urine Positive (Negative); Nitrite,Urine Negative (Negative); PH,Urine 6.0 (5.0-7.0); Protein,Urine Trace (Neg - Trace); RBC,Urine 528 /hpf (0-3); Specific Gravity,Urine 1.019 (1.001-1.035); Squamous Epithelial Cell,Urine 4 /hpf (0-5); Urobilinogen,Urine Negative mg/dL (0.0-1.0); WBC,Urine 118 /hpf (0-5)
[2025-02-14 14:39] LABS: Clarity,Urine Cloudy (Clear/Hazy); Culture Indicated,Urine Yes
[2025-02-14 15:04] LABS: Base Excess 6 (-3-3); HCO3 34 mEq/L (20-26); Inspired Oxygen, FIO2 35 %; O2 Saturation 97 % (91-98); PCO2 75 mmHg (32.0-48.0); PO2 107 mmHg (83-108); pH, Arterial 7.27 (7.35-7.45)
[2025-02-14 15:08] LABS: Allen Test Performed/OK; Puncture Site Left Radial
[2025-02-14] MEDS: HYDROCORTISONE SOD SUCC INJ 100 MG VIAL IV (15:12)
[2025-02-14] MEDS: ALBUTEROL/IPRATROPIUM (Duoneb) RT SOL 3 ML NEBU INH (15:14)
--- NOTE | 2025-02-14 16:58 | PC.NURSE ---
@1512 Solucortef 100mg IVP over2 min to 22g left wrist.
--- NOTE | 2025-02-14 17:30 | PD.RESHP ---
Documentation for date of: 02/14/25 [facility] History of Present Illness History of present illness: History of Present Illness: This is an 89-year-old female with PMHx of ILD/pulmonary fibrosis, chronic respiratory failure on 2 L home oxygen and BiPAP, HFpEF, bedbound, recurrent UTI, hypothyroidism, right breast cancer s/p lumpectomy, T2DM, GERD, depression, chronic back pain, known to us for recurrent admission for hypercapnic respiratory failure, presenting to the ED with acute altered mental status. She was discharged on 02/11/25 following an extended hospital visit for acute hypoxemic, hypercapnic respiratory failure due to her likely worsening ILD. At that time she was also treated for pneumonia and UTI, and continued on BiPAP, then discharged on prolonged STEROID taper for suspected hypersensitivity pneumonitis. She was discharged on home hospice with LORRIE, per friend, Lissy, she was feeling well on Friday on the day of discharge. Although she felt agitated and anxious, and was unable to sleep all night, couldn't maintain BiPAP on due to agitation. Subsequently, she was given a dose of LORAZEPAM for agitation and insomnia, and she slept okay. However she was unable to maintain appropriate BiPAP seal, and was desatting continuously to 62%, which was improved with 2 L nasal cannula which is baseline for her. Friday morning, she was increasingly lethargic, sleepy, difficult to to arouse. Additionally, she was refusing food all day. Home GLUCOSE reviewed with 75% which is very low for her, usually she runs around 160s. Caregiver informed Lissy of declining mentation, decision was made to admit to the hospital. Of note, she evidently fell off the gurney outside her home during transportation. There is no reported head trauma, radiology was negative for acute fracture as stated below. There is no reported fever, chills, headaches, visual changes, syncope or presyncope, fall or trauma (other than above-mentioned gurney accident), chest pain, palpitations, abdominal pain, N/V/D/C, abnormal bleed or urinary symptoms. Past Medical History: ILD/pulmonary fibrosis, chronic respiratory failure on 2 L home oxygen and BiPAP, HFpEF, bedbound, recurrent UTI, hypothyroidism, right breast cancer s/p lumpectomy, T2DM, GERD, depression, chronic back pain. Past Surgical History: Lumpectomy, Cholecystectomy. Medications: Extended PREDNISONE taper (refer to last discharge summary), INSULIN GLARGINE 20 units HS, INSULIN LISPRO sliding scale, LEVOTHYROXINE 75 mcg, OMEPRAZOLE 40 mg q. day, ROSUVASTATIN 5 mg daily, ASPIRIN 81 mg daily, VITAMIN C 500 mg BID, METOPROLOL SUCCINATE 25 mg, VENLAFAXINE 150 mcg HS, PRAMIPEXOLE 1 mg HS, CALCIUM CARBONATE ? VITAMIN D 300 mg - 2.5 mcg daily, cranberry 1000 mg daily, VITAMIN C 500 mg BID, METHENAMINE 1 g BID, probiotics daily. Allergies: SULFA DRUG, CEFUROXIME, shellfish, IODINE, zinc. Family History: Limited family history per chart review. Social History: No history of alcohol, substance abuse or tobacco use, per chart review. ED Course: On exam, she was lethargic, opens eyes to command, difficult to arouse. GCS 9. Afebrile, BP 131/57, HR 85, satting 95% on 2 L NC. ABG showed pH 7.24, PCO2 88, bicarb 38, PO2 87 with slight improvement after BiPAP WBC 16.2 with left shift, Hgb 10.8 around baseline, PLT 222. CHEM panel significant for CO2 36.6. GLUCOSE was 135. BMP and troponin are negative. Procalcitonin was negative. TSH 1.0. Lactic acid 1.2. GFR 44 which is baseline for her. LFTs WNL. UA was cloudy with 3+ blood, positive LE, RBCs 528, WBCs 118, calcium oxalate 1+. EKG showed atrial fibrillation, with RBBB, no acute ST changes. CT cervical spine showed no acute cervical fracture. Left humerus XR showed advanced osteoarthritis of glenohumeral joint, no acute fracture. CXR showed mild heart failure, superimposed bilateral pneumonia. Head CT negative for acute hemorrhage, mass effect or midline shift. CT chest showed PAH, mild to moderate heart failure, superimposed bilateral pneumonia. Reason for admission: Acute encephalopathy in settings of acute on chronic hypercapnic respiratory failure requiring BiPAP. Will need close observation for BiPAP and repeat blood gas. Exam Vital Signs Temp Pulse Resp BP Pulse Ox O2 Del Method O2 Flow Rate 97.6 F 75 23 H 106/75 96 BiPAP 2 02/14/25 16:43 02/14/25 16:43 02/14/25 16:43 02/14/25 16:43 02/14/25 16:43 02/14/25 16:43 02/14/25 10:14 FiO2 35 02/14/25 15:18 Narrative Exam General: Ill-appearing elderly female, mildly obtunded/drowsy, on BiPAP. GCS 9 HEENT: Normocephalic, atraumatic, mucous membranes moist. Heart: Regular rate and rhythm, no murmurs. Lungs: Bilateral fine inspiratory crackles are heard. Bilateral bronchial breath sounds heard Abdomen: Soft, nondistended, nontender, positive bowel sounds. ?No guarding or rebound tenderness. Neurologic: no gross neurological deficit, and patient able to move all 4 extremities. Extremities: No edema. Skin: No rash or ecchymoses. Results: Labs 02/14/25 12:35 02/14/25 12:35 Labs: Short CBC 02/14/25 Range/Units 12:35 WBC 16.2 H D (3.6-11.0) Thou/mm3 Hgb 10.8 L (12.0-16.0) g/dL Hct 36.8 (36.0-46.0) % Plt Count 222 (140-440) Thou/mm3 BMP 02/14/25 12:35 Sodium 136 Potassium 4.6 Chloride 99 Carbon Dioxide 36.6 H BUN 26 H Creatinine 1.1 Glucose 135 H Calcium 10.3 Cardiac Enzymes 02/14/25 Range/Units 12:35 Total Creatine Kinase 18 L (34-171) U/L Troponin I < 0.020 (0.0-0.045) ng/mL Liver Function 02/14/25 Range/Units 12:35 Total Bilirubin 0.3 (0.3-1.2) mg/dL AST 14 (0-34) U/L ALT 29 (10-49) U/L Alkaline Phosphatase 50 (46-116) U/L Albumin 3.5 (3.4-4.8) gm/dL Urine 02/14/25 Range/Units 13:25 Urine Color Lt-Yellow (Lt Yel-Yel) Urine Clarity Cloudy A (Clear/Hazy) Urine pH 6.0 (5.0-7.0) Ur Specific [place] 1.019 (1.001-1.035) Urine Protein Trace (Neg - Trace) Urine Glucose (UA) Negative (Negative) ABG Interpretation ABG results: 02/14/25 02/14/25 12:28 14:09 ABG pH 7.24 L 7.27 L ABG pCO2 88 H* 75 H* D ABG pO2 87 107 D ABG HCO3 38 H 34 H ABG O2 Saturation 95 97 ABG Base Excess 8 H 6 H Quality Measures Quality Measures none Advance care planning discussed with:: other ( [employer]O [employer]ES (friend)) Medications Home Medications and Allergies Home Medications ?Medication ?Instructions ?Recorded ?Confirmed ?Type levothyroxine 75 mcg tablet 100 mcg PO QAM 04/18/20 02/05/25 History methenamine hippurate 1 gram tablet 1 g PO BID 04/18/20 02/05/25 History omeprazole 40 mg capsule,delayed 40 mg PO QDAY 06/04/21 02/05/25 History release rosuvastatin 5 mg tablet 5 mg PO HS 06/04/21 02/05/25 History venlafaxine 150 mg 150 mg PO HS 06/04/21 02/05/25 History capsule,extended release 24 hr ascorbic acid (vitamin C) 500 mg 500 mg PO BID 03/19/24 02/05/25 History tablet (Vitamin C) aspirin 81 mg tablet 81 mg PO QDAY 03/19/24 02/05/25 History calcium 600 mg (as 0.5 tab PO QDAY 12/27/24 02/05/25 History carbonate)-vitamin D3 5 mcg (200 unit) tablet (Calcium 600 + D(3)) cranberry 500 mg capsule 1,000 mg PO QDAY 12/27/24 02/05/25 History hydrocodone 10 mg-acetaminophen 1 tab PO Q12H PRN pain 12/27/24 02/05/25 History 325 mg tablet lactobacillus comb no.10 20 25,000 mmu cells PO QDAY 12/27/24 02/05/25 History billion cell capsule (Probiotic) pramipexole 0.5 mg tablet 1 mg PO HS 12/27/24 02/05/25 History insulin glargine 100 unit/mL 20 unit subcut HS 02/05/25 02/05/25 History subcutaneous solution (Lantus U-100 Insulin) Allergies Allergy/AdvReac Type Severity Reaction Status Date / Time cefuroxime Allergy Intermediate Swelling Verified 02/14/25 11:33 of Lip/Tongue/Throat zinc Allergy Intermediate Rash Verified 02/14/25 11:33 iodine Allergy Unknown Verified 02/14/25 11:33 shellfish derived Allergy Unknown Verified 02/14/25 11:33 Sulfa (Sulfonamide Allergy Unknown Verified 02/14/25 11:33 Antibiotics) Visit Medications Acetaminophen (Acetaminophen 325 Mg Tablet) 650 mg PO Q6H PRN PRN Reason: Fever >100.4 Stop: 03/16/25 17:17 Dextrose (Dextrose 50%-Water Inj 50 Ml Syringe) 25 ml IV Q15MIN PRN PRN Reason: BG 50-70 responsive npo pt Stop: 03/16/25 17:22 Dextrose (Dextrose 50%-Water Inj 50 Ml Syringe) 50 ml IV Q15MIN PRN PRN Reason: BG <50 OR BG <70 & pt unresponsive Stop: 03/16/25 17:22 Furosemide (Furosemide 40 Mg Tablet) 40 mg PO QAM [facility] Stop: 03/16/25 17:29 Glucagon (Glucagon Inj 1 Mg Vial) 1 mg IM Q15MIN PRN PRN Reason: BG <70, and no IV access Piperacillin/Tazobactam/Dextrose (Zosyn) 3.375 gm in 50 mls @ 12.5 mls/hr IV Q8HR [facility] Stop: 02/21/25 21:59 Acetaminophen (Ofirmev Inj) 1,000 mg in 100 mls @ 250 mls/hr IV Q6HR PRN PRN Reason: Fever >100.4, Pain 1-4 Stop: 02/15/25 06:23 Insulin Human Lispro (Insulin Lispro (Admelog) 1 Unit/0.01 Ml Unit) 0 unit [facility]; Protocol Stop: 03/16/25 20:59 Levothyroxine Sodium (Levothyroxine Sodium 25 Mcg Tablet) 100 mcg PO QAM [facility] Stop: 03/17/25 08:59 Methylprednisolone Sodium Succinate (Methylprednisolone Sod Succ 40 Mg Vial) 30 mg IVP QDAY [facility] Stop: 02/21/25 17:29 Metoprolol Succinate (Metoprolol Succinate Xl 25 Mg Tabcr) 25 mg PO QDAY [facility] Stop: 03/17/25 08:59 Non-Formulary Medication (Aspirin) 81 mg PO QDAY [facility] Stop: 03/16/25 17:29 Non-Formulary Medication (Rosuvastatin) 5 mg PO HS [facility] Stop: 03/16/25 20:59 Ondansetron HCl (Ondansetron Inj 2 Mg/Ml Inj 2 Ml) 4 mg IVP Q6H PRN; Protocol PRN Reason: NAUSEA OR VOMITING Stop: 03/16/25 17:17 Pantoprazole Sodium (Pantoprazole Inj 40 Mg Vial) 40 mg IVP QDAY [facility] Stop: 03/16/25 17:29 Pharmacy Consult (Vancomycin Pharmacy To Dose 1 Each Each) 1 each IV QDAY PRN PRN Reason: PROTOCOL Stop: 03/16/25 17:29 Pramipexole Dihydrochloride (Pramipexole 0.25 Mg Tablet) 1 mg PO HS [facility] Stop: 03/16/25 20:59 Venlafaxine HCl (Venlafaxine Xr 37.5 Mg Capcr) 150 mg PO HS [facility] Stop: 03/16/25 20:59 Discontinued Medications Albuterol/Ipratropium (Albuterol/Ipratropium (Duoneb) Rt Sravani 3 Ml Nebu) 3 ml INH X1 ONE Stop: 02/14/25 14:41 Last Admin: 02/14/25 15:14 Dose: 3 ml Furosemide (Furosemide Inj 10 Mg/Ml 4ml Vial) 80 mg IVP X1 ONE Stop: 02/14/25 12:18 Last Admin: 02/14/25 13:34 Dose: 80 mg Hydrocortisone Sodium Succinate (Hydrocortisone Sod Succ Inj 100 Mg Vial) 100 mg IV X1 ONE Stop: 02/14/25 14:41 Last Admin: 02/14/25 15:12 Dose: 100 mg Piperacillin Sod/Tazobactam (Sod 4.5 gm/ Sodium Chloride) 100 mls @ 200 mls/hr IV X1 ONE Stop: 02/14/25 12:59 Last Infusion: 02/14/25 14:26 Dose: Infused Piperacillin Sod/Tazobactam (Sod 4.5 gm/ Sodium Chloride) 100 mls @ 200 mls/hr IV Q6HR [facility] Stop: 02/21/25 17:59 Assessment & Plan Plan This is an 89-year-old female with PMHx of ILD/pulmonary fibrosis, chronic respiratory failure on 2 L home oxygen and BiPAP, HFpEF, bedbound, recurrent UTI, hypothyroidism, right breast cancer s/p lumpectomy, T2DM, GERD, depression, chronic back pain, known to us for recurrent admission for hypercapnic respiratory failure, presenting to the ED with acute altered mental status in setting of acute on chronic hypercapnic respiratory failure. Acute encephalopathy Likely in settings of acute hypercapnic respiratory failure, possible UTI (although she has chronic UTI), or iatrogenic. Mentation appears to have worsened over the last few days, more acutely this morning. She was given MORPHINE and ATIVAN by hospice due to agitation, likely worsening her mental status. Additionally, there was reported BiPAP failure, frequent air leaks, and recurrent hypoxemic episodes. Head CT was negative for acute pathology. ? Treating underlying cause ? Avoid narcotics Acute hypercapnic respiratory failure Chronic respiratory failure Appropriately compensated Acute vs. Chronic Respiratory Acidosis Worsening ILD/pulmonary fibrosis Possible superimposed bilateral pneumonia She has chronic ILD/pulmonary fibrosis leading to chronic respiratory failure, chronic CO2 retention, requiring daily BiPAP and home oxygen. She has recurrent admission AMS 2/2 hypercapnic respiratory failure as a result. Prognosis remains poor, likely will continue to worsen with time. Recently was discharged on prolonged STEROID taper which she is currently taking. CXR showing superimposed subsegmental pneumonia. She has leukocytosis which possibly reactive but there is also a left shift present. CT chest showed PAH, likely 2/2 ILD. However echo from last month did not show any right pressure elevations. CT also showed mild to moderate HF and confirmed superimposed bilateral pneumonia. On exam there was coarse breath sounds bilaterally. Given underlying lung disease, recent hospital admission, will start broad-spectrum ANTIBIOTICS for HCAP, narrow ANTIBIOTICS based on cultures. ABG showing pH 7.24, pCO2 88 > 75 with BIPAP, bicarb 34, ? DuoNebs q.6h. PRN ? Continue BiPAP HS and PRN. ? Continue METHYLPREDNISOLONE 40 mg QDAY (02/14 to present) ? Continue VANCOMYCIN (02/14 to present) ? Continue ZOSYN (02/14 to present) ? Pending panculture UTI Hx Pseudomonas aeruginosa UA again showing UTI, and she has chronic UTIs on previous admissions. Previous culture grew Pseudomonas aeruginosa's, sensitive to ZOSYN. ? ANTIBIOTICS as above ? Pending cultures HFpEF EF 65% Echocardiogram from 12/2024 showed EF 65%, trace mitral and tricuspid regurg, no wall motion abnormalities. However, she has chronic fluid retention for which she takes LASIX 20 mg daily. CXR showing vascular congestion and mild bilateral ankle blunting. Renal function within normal limits ? Increase LASIX to 40 mg daily ? Strict NARINDER's ? Monitor renal function Hypothyroidism TSH WNL. ? Continue home LEVOTHYROXINE 100 mcg daily T2DM Reportedly, she was refusing oral feeds over the last few days, home GLUCOSE was 75 this morning with baseline around 160. Admission GLUCOSE 135. A1c 7.9 from 01/26/2025. ? INSULIN sliding scale ? Accu-Cheks Dysphagia Esophageal stenosis s/p dilation Chronic constipation On last admission, she had EGD with dilation for dysphagia secondary to esophageal stenosis. Reportedly, she was tolerating oral intake at home. However was refusing food this morning. ? Pending bedside swallow eval Health maintenance Diet: NPO GI prophylaxis: PROTONIX DVT prophylaxis: HEPARIN SUBQ Antibiotics: ZOSYN, VANCOMYCIN CODE STATUS: FULL CODE [facility] Case was discussed with attending physician and senior resident. DO ELISE Altamirano This document was transcribed using voice recognition technology. Minor inaccuracies may be present. Attending Provider Attestation/Addendum I Phuc Yo MD reviewed the note and agree with the resident's assessment & plan with exceptions as below. I have personally reviewed labs, imaging, home meds/prior records, examined the patient, formulated and discussed management plan with the IM team. An 89-year-old female with Hx of ILD/pulmonary fibrosis, chronic respiratory failure on home oxygen and BiPAP therapy, HFpEF, bedbound with recurrent UTIs hypothyroidism and right breast cancer status post lumpectomy, DM, depression, chronic back pain with recurrent hospitalizations for hypercapnic respiratory failure leading to acute metabolic encephalopathy recently discharged following hospitalization for the same. She is presenting today with altered mental status, somnolence and lethargy with difficulty to arouse noted to be hypoglycemic and hypoxemic and hypercapnic. Patient also had a fall from the [place] outside her home during transportation. Admitted for acute hypercapnic hypoxemic respiratory failure likely related to her pulmonary fibrosis with limited ventilation leading to CO2 narcosis. Started on BiPAP therapy, continue systemic steroid therapy, empirically start on cefepime and doxycycline for HCAP. Will consult pulmonology regarding optimization of her ILD management. Also consult palliative care for goals of care discussion with the patient and her family in the setting of her advanced terminal.
[2025-02-14] MEDS: VANCOMYCIN/NS 1 GM IVPB 200 ML IV (18:41)
[2025-02-14] MEDS: ASPIRIN EC 81 MG TABEC PO (18:50)
[2025-02-14] MEDS: ATORVASTATIN CALCIUM 20 MG TABLET PO (21:12)
[2025-02-14] MEDS: PIPER/TAZO 3.375 GM PREMIX 3.375 GM/50 ML BAG IV (21:12)
[2025-02-14] MEDS: VENLAFAXINE XR 37.5 MG CAPCR 150 MG PO (21:12)
[2025-02-14] MEDS: PRAMIPEXOLE 0.25 MG TABLET 1 MG PO (21:13)
[2025-02-14] MEDS: INSULIN LISPRO (AdmeLOG) 1 UNIT/0.01 ML UNIT SC (21:15)
[2025-02-15] VITALS (14 sets, daily range): BP systolic 115–142; BP diastolic 52–88; PULSE 63–95; RESP 19–27; TEMP 35.6–36.6; O2SAT 93–100; BMI 40.1
--- NOTE | 2025-02-15 00:46 | PC.RT ---
UNABLE TO GET SPUTUM FROM PT. PT IS ON CONT BIPAP AT THIS TIME.
--- NOTE | 2025-02-15 01:50 | PC.NURSE ---
med rec could not be completed because patient is confused. she is currently on the bipap and no caregiver at the bedside
--- NOTE | 2025-02-15 05:14 | PC.NURSE ---
MD Montgomery made aware that patient failed repeat swallow test because she is lethargic and kept falling back asleep. She is still on the bipap. he said keep patient NPO and ok not to give PO meds at this time
[2025-02-15] MEDS: PIPER/TAZO 3.375 GM PREMIX 3.375 GM/50 ML BAG IV ×2 (05:34→21:31)
[2025-02-15 06:01] LABS: Base Excess, Venous 14 (-3-3); O2 Saturation, Venous 65 % (96-97); PCO2, Venous 65 mmHg (36-56); PO2, Venous 33 mmHg (15-58); pH, Venous 7.41 (7.33-7.66)
[2025-02-15 06:03] LABS: Basophils # (Auto) 0.0 Thou/mm3 (0.0-0.2); Basophils % (Auto) 0 % (0-2.5); Eosinophils # (Auto) 0.0 Thou/mm3 (0.0-0.5); Eosinophils % (Auto) 0 % (0-10); Hematocrit 33.9 % (36.0-46.0); Hemoglobin 10.4 g/dL (12.0-16.0); Immature Granulocytes Auto 0.22 Thou/mm3 (0.00-0.00); Lymphocytes # (Auto) 0.7 Thou/mm3 (1.0-4.8); Lymphocytes % (Auto) 6 % (10-50); Mean Corpuscular HGB Conc 30.7 g/dl (31.0-37.0); Mean Corpuscular Hemoglobin 28.2 pg (25.0-35.0); Mean Corpuscular Volume 92 fL (80-100); Monocytes # (Auto) 0.3 Thou/mm3 (0.0-0.8); Monocytes % (Auto) 3 % (0-12); Neutrophils # (Auto) 10.4 Thou/mm3 (1.8-7.7); Neutrophils % (Auto) 90 % (37-80); Nucleated Red Blood Cell # 0.00 Thou/mm3 (0.00-0.00); Nucleated Red Blood Cell % 0 /100 WBC (0); Platelet Count 221 Thou/mm3 (140-440); RDW Standard Deviation 53.1 fL (36.4-46.3); Red Blood Count 3.69 Miln/mm3 (4.00-5.20); White Blood Count 11.6 Thou/mm3 (3.6-11.0)
[2025-02-15 06:45] LABS: Alanine Aminotransferase 27 U/L (10-49); Albumin, Serum 3.4 gm/dL (3.4-4.8); Albumin/Globulin Ratio 1.5 (1.2-2.2); Alkaline Phosphatase 42 U/L (46-116); Anion Gap 4 (7-16); Aspartate Amino Transferase 17 U/L (0-34); BUN/Creatinine Ratio 29 Ratio (12-20); Bilirubin,Total 0.4 mg/dL (0.3-1.2); Blood Urea Nitrogen 35 mg/dL (9-23); Calcium 10.4 mg/dL (8.3-10.6); Calcium (Corrected) 10.9 mg/dL (8.5-10.1); Carbon Dioxide 37.4 mMol/L (20.0-31.0); Chloride 95 mMol/L (98-107); Creatinine (Component) 1.2 mg/dL (0.6-1.3); Estimated Creatinine Clearance 34.9 mL/min (>60); Globulin 2.3 gm/dL (2.3-3.5); Glucose 184 mg/dL (74-106); Magnesium 2.2 mg/dL (1.6-2.6); Osmolality,Calculated 284 (275-295); Phosphorous 4.3 mg/dL (2.4-5.1); Potassium 4.5 mMol/L (3.4-5.1); Sodium 136 mMol/L (136-145); Total Protein 5.7 gm/dL (5.7-8.2); eGFR 44 See Note
[2025-02-15] MEDS: DOCUSATE SOD 100 MG CAPSULE 200 MG PO (11:14)
[2025-02-15] MEDS: ASPIRIN EC 81 MG TABEC PO (11:14)
--- NOTE | 2025-02-15 11:17 | PCS.ST ---
Swallow Evaluation completed. See report for details. No s/s of laryngeal penetration. NO esophageal symptoms. Recommend Dysphagia 3,Reg liquids.
[2025-02-15] MEDS: METOPROLOL SUCCINATE XL 25 MG TABCR PO (11:21)
[2025-02-15] MEDS: POLYETHYLENE GLYCOL 17 GM PACKET PO (11:22)
--- NOTE | 2025-02-15 11:27 | PC.NURSE ---
AM meds late d/t pt being NPO, speech therapist came in and did eval and pt able to eat now.
[2025-02-15] MEDS: VANCOMYCIN/NS 1 GM IVPB 200 ML IV (13:51)
--- NOTE | 2025-02-15 15:40 | PD.RESPRO ---
Documentation for date of: 02/15/25 Subjective Subjective Interval history: No acute overnight events. Continued on BiPAP overnight. Mentation improved today. Reports improvement in shortness of breath. Exam Vital Signs Temp Pulse Resp BP Pulse Ox O2 Del Method O2 Flow Rate 97.7 F 92 19 124/88 H 98 Nasal Cannula 2 02/15/25 12:00 02/15/25 13:00 02/15/25 13:00 02/15/25 12:00 02/15/25 13:00 02/15/25 12:00 02/15/25 12:00 FiO2 30 02/15/25 07:47 Objective Labs 02/17/25 05:06 02/17/25 05:06 Labs: Laboratory Results - last 24 hr 02/15/25 02/15/25 05:00 05:32 WBC 11.6 H RBC 3.69 L Hgb 10.4 L Hct 33.9 L MCV 92 MCH 28.2 MCHC 30.7 L RDW Std Deviation 53.1 H Plt Count 221 Neut % (Auto) 90 H Lymph % (Auto) 6 L [place] % (Auto) 3 Eos % (Auto) 0 Baso % (Auto) 0 Neut # (Auto) 10.4 H Lymph # (Auto) 0.7 L [place] # (Auto) 0.3 Eos # (Auto) 0.0 Baso # (Auto) 0.0 Immature Gran # (Auto) 0.22 H Absolute Nucleated RBC 0.00 Immature Gran % 2 H Nucleated RBC % 0 VBG pH 7.41 VBG pCO2 65 H VBG pO2 33 VBG O2 Sat (Radha) 65 L VBG Base Excess 14 H Sodium 136 Potassium 4.5 Chloride 95 L Carbon Dioxide 37.4 H Anion Gap 4 L BUN 35 H Creatinine 1.2 Estim Creat Clear Calc 34.9 L eGFR 44 L BUN/Creatinine Ratio 29 H Glucose 184 H Calculated Osmolality 284 Calcium 10.4 Corrected Calcium 10.9 H Phosphorus 4.3 Magnesium 2.2 Total Bilirubin 0.4 AST 17 ALT 27 Alkaline Phosphatase 42 L Total Protein 5.7 Albumin 3.4 Globulin 2.3 Albumin/Globulin Ratio 1.5 ABG Interpretation ABG results: 02/14/25 02/14/25 02/15/25 12:28 14:09 05:00 ABG pH 7.24 L 7.27 L ABG pCO2 88 H* 75 H* D ABG pO2 87 107 D ABG HCO3 38 H 34 H ABG O2 Saturation 95 97 ABG Base Excess 8 H 6 H VBG pH 7.41 VBG pCO2 65 H VBG pO2 33 VBG Base Excess 14 H Quality Measures Quality Measures none Advance care planning discussed with:: patient Assessment & Plan Assessment Current Active Medications: Generic Name Dose Route Start Last Admin Trade Name Freq PRN Reason Stop Dose Admin Acetaminophen 650 mg 02/14/25 17:18 Acetaminophen 325 Mg Tablet PO 03/16/25 17:17 Q6H PRN Fever >100.4 Albuterol/Ipratropium 3 ml 02/14/25 18:34 Albuterol/Ipratropium (Duoneb) Rt Sravani 3 Ml Nebu INH 03/16/25 18:33 Q6HRRT PRN Wheezing Aspirin 81 mg 02/14/25 17:30 02/15/25 11:14 Aspirin Ec 81 Mg Tabec PO 03/16/25 17:29 81 mg QDAY LISETTE Administration Atorvastatin Calcium 20 mg 02/14/25 21:00 02/14/25 21:12 Atorvastatin Calcium 20 Mg Tablet PO 03/16/25 20:59 20 mg HS LISETTE Administration Dextrose 25 ml 02/14/25 17:23 Dextrose 50%-Water Inj 50 Ml Syringe IV 03/16/25 17:22 Q15MIN PRN BG 50-70 responsive npo pt Dextrose 50 ml 02/14/25 17:23 Dextrose 50%-Water Inj 50 Ml Syringe IV 03/16/25 17:22 Q15MIN PRN BG <50 OR BG <70 & pt unresponsive Docusate Sodium 200 mg 02/15/25 09:00 02/15/25 11:14 Docusate Sod 100 Mg Capsule PO 03/17/25 08:59 200 mg QDAY LISETTE Administration Protocol Furosemide 40 mg 02/14/25 17:30 02/15/25 11:15 Furosemide 40 Mg Tablet PO 03/16/25 17:29 40 mg QAM LISETTE Administration Glucagon 1 mg 02/14/25 17:23 Glucagon Inj 1 Mg Vial IM Q15MIN PRN BG <70, and no IV access Piperacillin/Tazobactam/Dextrose 3.375 gm in 50 mls @ 12.5 mls/hr 02/14/25 22:00 02/15/25 05:34 Zosyn IV 02/21/25 21:59 12.5 mls/hr Q8HR LISETTE Administration Vancomycin/Sodium Chloride 200 mls @ 120 mls/hr 02/14/25 17:45 02/15/25 13:51 Vancomycin/Ns 1 Gm Ivpb IV 02/21/25 17:44 120 mls/hr QDAY@1400 LISETTE Administration Insulin Human Lispro 0 unit 02/15/25 11:30 02/15/25 11:40 Insulin Lispro (Admelog) 1 Unit/0.01 Ml Unit SC 03/17/25 11:29 Not Given ACHS LISETTE Protocol Levothyroxine Sodium 100 mcg 02/15/25 06:00 02/15/25 05:13 Levothyroxine Sodium 100 Mcg Tablet PO 03/17/25 05:59 Not Given ACBR LISETTE Methylprednisolone Sodium Succinate 40 mg 02/14/25 18:45 02/15/25 09:55 Methylprednisolone Sod Succ 40 Mg Vial IVP 02/21/25 18:44 40 mg QDAY LISETTE Administration Metoprolol Succinate 25 mg 02/15/25 09:00 02/15/25 11:21 Metoprolol Succinate Xl 25 Mg Tabcr PO 03/17/25 08:59 25 mg QDAY LISETTE Administration Ondansetron HCl 4 mg 02/14/25 17:18 Ondansetron Inj 2 Mg/Ml Inj 2 Ml IVP 03/16/25 17:17 Q6H PRN NAUSEA OR VOMITING Protocol Pantoprazole Sodium 40 mg 02/14/25 17:30 02/15/25 09:56 Pantoprazole Inj 40 Mg Vial IVP 03/16/25 17:29 40 mg QDAY LISETTE Administration Pharmacy Consult 1 each 02/14/25 17:30 Vancomycin Pharmacy To Dose 1 Each Each IV 03/16/25 17:29 QDAY PRN PROTOCOL Polyethylene Glycol 17 gm 02/15/25 09:00 02/15/25 11:22 Polyethylene Glycol 17 Gm Packet PO 03/17/25 08:59 17 gm QDAY LISETTE Administration Pramipexole Dihydrochloride 1 mg 02/14/25 21:00 02/14/25 21:13 Pramipexole 0.25 Mg Tablet PO 03/16/25 20:59 1 mg HS LISETTE Administration Venlafaxine HCl 150 mg 02/14/25 21:00 02/14/25 21:12 Venlafaxine Xr 37.5 Mg Capcr PO 03/16/25 20:59 150 mg HS LISETTE Administration Plan This is an 89-year-old female with PMHx of ILD/pulmonary fibrosis, chronic respiratory failure on 2 L home oxygen and BiPAP, HFpEF, bedbound, recurrent UTI, hypothyroidism, right breast cancer s/p lumpectomy, T2DM, GERD, depression, chronic back pain, known to us for recurrent admission for hypercapnic respiratory failure, presenting to the ED with acute altered mental status in setting of acute on chronic hypercapnic respiratory failure. Acute encephalopathy (resolving) Likely in settings of acute hypercapnic respiratory failure, possible UTI (although she has chronic UTI), or iatrogenic. Mentation appears to have worsened over the last few days, more acutely this morning. She was given MORPHINE and ATIVAN by hospice due to agitation, likely worsening her mental status. Additionally, there was reported BiPAP failure, frequent air leaks, and recurrent hypoxemic episodes. Head CT was negative for acute pathology. ? Treating underlying cause ? Avoid narcotics Acute hypercapnic respiratory failure Chronic respiratory failure Appropriately compensated Acute vs. Chronic Respiratory Acidosis Worsening ILD/pulmonary fibrosis Possible superimposed bilateral pneumonia She has chronic ILD/pulmonary fibrosis leading to chronic respiratory failure, chronic CO2 retention, requiring daily BiPAP and home oxygen. She has recurrent admission AMS 2/2 hypercapnic respiratory failure as a result. Prognosis remains poor, likely will continue to worsen with time. Recently was discharged on prolonged STEROID taper which she is currently taking. CXR showing superimposed subsegmental pneumonia. She has leukocytosis which possibly reactive but there is also a left shift present. CT chest showed PAH, likely 2/2 ILD. However echo from last month did not show any right pressure elevations. CT also showed mild to moderate HF and confirmed superimposed bilateral pneumonia. On exam there was coarse breath sounds bilaterally. Given underlying lung disease, recent hospital admission, will start broad-spectrum ANTIBIOTICS for HCAP, narrow ANTIBIOTICS based on cultures. Admission ABG showing pH 7.24, pCO2 88 > 75 with BIPAP, bicarb 34. Improving with BiPAP: VBG today showed pH 7.41, pCO2 65, PaO2 33. Currently on 15L oxymask. ? DuoNebs q.6h. PRN ? Continue BiPAP HS and PRN. ? Continue METHYLPREDNISOLONE 40 mg QDAY (02/14 to present) ? Continue VANCOMYCIN (02/14 to present) ? Continue ZOSYN (02/14 to present) ? Pending panculture UTI Hx Pseudomonas aeruginosa UA again showing UTI, and she has chronic UTIs on previous admissions. Previous culture grew Pseudomonas aeruginosa's, sensitive to ZOSYN. ? ANTIBIOTICS as above ? Pending cultures HFpEF EF 65% Echocardiogram from 12/2024 showed EF 65%, trace mitral and tricuspid regurg, no wall motion abnormalities. However, she has chronic fluid retention for which she takes LASIX 20 mg daily. CXR showing vascular congestion and mild bilateral ankle blunting. Renal function within normal limits ? Increase LASIX to 40 mg daily ? Strict NARINDER's ? Monitor renal function Hypothyroidism TSH WNL. ? Continue home LEVOTHYROXINE 100 mcg daily T2DM Reportedly, she was refusing oral feeds over the last few days, home GLUCOSE was 75 this morning with baseline around 160. Admission GLUCOSE 135. A1c 7.9 from 01/26/2025. ? INSULIN sliding scale ? Accu-Cheks Dysphagia Esophageal stenosis s/p dilation Chronic constipation On last admission, she had EGD with dilation for dysphagia secondary to esophageal stenosis. Reportedly, she was tolerating oral intake at home. However was refusing food this morning. Speech recommended Dysphagia 3 diet. Health maintenance Diet: Dysphagia 3, CHO consistent GI prophylaxis: PROTONIX DVT prophylaxis: HEPARIN SUBQ Antibiotics: ZOSYN, VANCOMYCIN CODE STATUS: FULL CODE Disposition: Treating [facility] Case was discussed with attending physician and senior resident. Jeffry Ellre DO PGY II This document was transcribed using voice recognition technology. Minor inaccuracies may be present. Attending Provider Attestation/Addendum I attest that I was physically present for the evaluation, physical examination, lab and imaging review of the patient with the residents. I discussed the case with the residents and agree with the findings and plans of care as documented above. Roosevelt Barbosa MD
--- NOTE | 2025-02-15 16:05 | PC.SS ---
Patient is altered. contacted patient's nephew's , Edith. Edith confirmed that she and her Jg, patient's nephew, assist with all medical decision making. Edith states patient resides at home with 24 hour caregivers. Patient has a bipap, hospital bed, sergio lift, walker, wheelchair at home. Patient is on hospice with [facility]. Family wants to continue services once medically ready for discharge. Patient is listed as a full code. However, family states they wanted patient to be a DNR. However, they need clarification on code status. Edith would like an upate from the physician team. Alt medical decision makers: Jg Hassan, and Edith Augustus,
--- NOTE | 2025-02-15 16:08 | PD.RESEVENT ---
Documentation for date of: 02/15/25 Event Note Event Note: I discussed the patient's ongoing pulmonary fibrosis and recurrent hospitalizations with Jg garcia. After reviewing the prognosis, the family requested DNR/DNI orders to avoid aggressive interventions. I explained the implications of these orders, and the family agreed, focusing on comfort and quality of life. Palliative care measures for symptom management will continue, and the CODE STATUS has been changed to DNR/DNI according to family's wishes. Case was discussed with attending physician and senior resident. Jeffry Eller DO PGY II This document was transcribed using voice recognition technology. Minor inaccuracies may be present.
[2025-02-15] MEDS: INSULIN LISPRO (AdmeLOG) 1 UNIT/0.01 ML UNIT SC ×2 (17:24→20:05)
[2025-02-15] MEDS: VENLAFAXINE XR 37.5 MG CAPCR 150 MG PO (20:05)
[2025-02-15] MEDS: PRAMIPEXOLE 0.25 MG TABLET 1 MG PO (20:05)
[2025-02-15] MEDS: ATORVASTATIN CALCIUM 20 MG TABLET PO (20:05)
--- NOTE | 2025-02-15 23:00 | PC.NURSE ---
Patient got transferred to [facility] unit at approximately 2300
[2025-02-16] VITALS (13 sets, daily range): BP systolic 112–149; BP diastolic 49–78; PULSE 82–98; RESP 18–29; TEMP 36.1–36.4; O2SAT 94–100; BMI 40.1
--- NOTE | 2025-02-16 04:12 | PC.NURSE ---
[facility] downtime occurred on 02/16/25 from 02:00am to 03:00am.
[2025-02-16] MEDS: PIPER/TAZO 3.375 GM PREMIX 3.375 GM/50 ML BAG IV ×3 (05:04→21:00)
--- NOTE | 2025-02-16 05:13 | PC.NURSE ---
100% O2 sat on 5L/min/nc- Decreased to 2L/min/nc.
[2025-02-16 06:09] LABS: Basophils # (Auto) 0.0 Thou/mm3 (0.0-0.2); Basophils % (Auto) 0 % (0-2.5); Eosinophils # (Auto) 0.1 Thou/mm3 (0.0-0.5); Eosinophils % (Auto) 1 % (0-10); Hematocrit 35.7 % (36.0-46.0); Hemoglobin 10.7 g/dL (12.0-16.0); Immature Granulocytes Auto 0.18 Thou/mm3 (0.00-0.00); Lymphocytes # (Auto) 1.1 Thou/mm3 (1.0-4.8); Lymphocytes % (Auto) 8 % (10-50); Mean Corpuscular HGB Conc 30.0 g/dl (31.0-37.0); Mean Corpuscular Hemoglobin 28.0 pg (25.0-35.0); Mean Corpuscular Volume 94 fL (80-100); Monocytes # (Auto) 1.3 Thou/mm3 (0.0-0.8); Monocytes % (Auto) 9 % (0-12); Neutrophils # (Auto) 12.1 Thou/mm3 (1.8-7.7); Neutrophils % (Auto) 82 % (37-80); Nucleated Red Blood Cell # 0.00 Thou/mm3 (0.00-0.00); Nucleated Red Blood Cell % 0 /100 WBC (0); Platelet Count 265 Thou/mm3 (140-440); RDW Standard Deviation 53.2 fL (36.4-46.3); Red Blood Count 3.82 Miln/mm3 (4.00-5.20); White Blood Count 14.8 Thou/mm3 (3.6-11.0)
[2025-02-16] MEDS: LEVOTHYROXINE SODIUM 100 MCG TABLET PO (06:24)
[2025-02-16 07:19] LABS: Alanine Aminotransferase 24 U/L (10-49); Albumin, Serum 3.5 gm/dL (3.4-4.8); Albumin/Globulin Ratio 1.5 (1.2-2.2); Alkaline Phosphatase 51 U/L (46-116); Anion Gap 4 (7-16); Aspartate Amino Transferase 12 U/L (0-34); BUN/Creatinine Ratio 24 Ratio (12-20); Bilirubin,Total 0.4 mg/dL (0.3-1.2); Blood Urea Nitrogen 29 mg/dL (9-23); Calcium 10.0 mg/dL (8.3-10.6); Calcium (Corrected) 10.4 mg/dL (8.5-10.1); Carbon Dioxide 39.8 mMol/L (20.0-31.0); Chloride 94 mMol/L (98-107); Creatinine (Component) 1.2 mg/dL (0.6-1.3); Estimated Creatinine Clearance 34.9 mL/min (>60); Globulin 2.4 gm/dL (2.3-3.5); Glucose 139 mg/dL (74-106); Magnesium 2.0 mg/dL (1.6-2.6); Osmolality,Calculated 283 (275-295); Phosphorous 3.5 mg/dL (2.4-5.1); Potassium 4.2 mMol/L (3.4-5.1); Sodium 138 mMol/L (136-145); Total Protein 5.9 gm/dL (5.7-8.2); eGFR 44 See Note
[2025-02-16] MEDS: DOXYCYCLINE 100 MG TABLET PO ×2 (09:21→20:50)
[2025-02-16] MEDS: ASPIRIN EC 81 MG TABEC PO (09:21)
[2025-02-16] MEDS: DOCUSATE SOD 100 MG CAPSULE 200 MG PO (09:21)
[2025-02-16] MEDS: METOPROLOL SUCCINATE XL 25 MG TABCR PO (09:22)
[2025-02-16] MEDS: ALBUTEROL/IPRATROPIUM (Duoneb) RT SOL 3 ML NEBU INH (10:01)
--- NOTE | 2025-02-16 10:43 | PC.SS ---
Addendum entered by DAXA Reese 02/16/25 17:10: SS follow up: met at bedside with patient's caregiver, Lissy to assist with calling [facility] to initiate hospital discharge appeal, however after many attempts and voicemails were made to [facility], she was unsuccessful in speaking to a live account retention representative. Voicemail was provided to [facility] for call back tomorrow at regular business hours to initiate hospital appeal and submit documentation. SS to follow up tomorrow morning. RN updated. Addendum entered by DAXA Reese 02/16/25 15:57: SS follow up: [facility] paperwork with case number has not been received as of yet. Attempted to contact patient's nephew Jg to notify if call to [facility] had already been completed. No response. Per Joey, no one at bed side with patient at this time. Addendum entered by DAXA Reese 02/16/25 15:14: SS follow up: spoke with attending Dr. Barbosa regarding the discharge. He informs the patient is medically cleared for discharge from their medical team. DC orders to remain in place. TAPE EDGE MACHINE OPERATOR spoke with patient's caregiver Lissy and patient's nephew Jg regarding the d/c plan. They both feel that the patient is not ready to be discharged home today and would like to appeal the discharge. TAPE EDGE MACHINE OPERATOR provided them with [facility] contact number and explained the process of a [facility] appeal. Both parties verbalized understanding. Joey and medical team updated that a discharge appeal would be initiated at this time. Addendum entered by DAXA Reese 02/16/25 12:21: SS update: per family protection specialist is still waiting to speak to the hospitalist. Attempted contact with attending Dr. Barbosa, no response, medical team resident Dr. Aguila also contacted and informed he would notify the attending to follow up with the patient/family. Original Note: SS follow up: met at bedside with patient and caregiver to discuss the d/c plan. Patient was recently d/c home with [facility] hospice services last week. Family is now declining hospice services, they are agreeable with [facility] home health services. Caregiver is at bed side and would like to speak to the hospitalist team to address some concerns, they do not feel patient is ready to discharge home today. Updated bedside RN-Lucía.
[2025-02-16] MEDS: INSULIN LISPRO (AdmeLOG) 1 UNIT/0.01 ML UNIT SC ×3 (11:01→20:51)
--- NOTE | 2025-02-16 16:53 | PD.RESPRO ---
Documentation for date of: 02/16/25 Subjective Subjective Interval history: No acute overnight events. Alert and oriented today, no signs of encephalopathy. She is continue BiPAP at night, and throughout the day as needed. She is otherwise Exam Vital Signs Temp Pulse Resp BP Pulse Ox O2 Del Method O2 Flow Rate 97.2 F 95 19 112/49 L 95 BiPAP 2 02/16/25 11:25 02/16/25 12:00 02/16/25 11:25 02/16/25 11:02/16/25 11:02/16/25 11:02/16/25 08:00 FiO2 30 02/16/25 10:04 Objective Labs 02/16/25 04:14 02/16/25 04:14 Labs: Laboratory Results - last 24 hr 02/16/25 04:14 WBC 14.8 H RBC 3.82 L Hgb 10.7 L Hct 35.7 L MCV 94 MCH 28.0 MCHC 30.0 L RDW Std Deviation 53.2 H Plt Count 265 D Neut % (Auto) 82 H Lymph % (Auto) 8 L [place] % (Auto) 9 Eos % (Auto) 1 Baso % (Auto) 0 Neut # (Auto) 12.1 H Lymph # (Auto) 1.1 [place] # (Auto) 1.3 H Eos # (Auto) 0.1 Baso # (Auto) 0.0 Immature Gran # (Auto) 0.18 H Absolute Nucleated RBC 0.00 Immature Gran % 1 H Nucleated RBC % 0 Sodium 138 Potassium 4.2 Chloride 94 L Carbon Dioxide 39.8 H Anion Gap 4 L BUN 29 H Creatinine 1.2 Estim Creat Clear Calc 34.9 L eGFR 44 L BUN/Creatinine Ratio 24 H Glucose 139 H Calculated Osmolality 283 Calcium 10.0 Corrected Calcium 10.4 H Phosphorus 3.5 Magnesium 2.0 Total Bilirubin 0.4 AST 12 ALT 24 Alkaline Phosphatase 51 D Total Protein 5.9 Albumin 3.5 Globulin 2.4 Albumin/Globulin Ratio 1.5 ABG Interpretation ABG results: 02/14/25 02/14/25 02/15/25 12:28 14:09 05:00 ABG pH 7.24 L 7.27 L ABG pCO2 88 H* 75 H* D ABG pO2 87 107 D ABG HCO3 38 H 34 H ABG O2 Saturation 95 97 ABG Base Excess 8 H 6 H VBG pH 7.41 VBG pCO2 65 H VBG pO2 33 VBG Base Excess 14 H Quality Measures Quality Measures none Assessment & Plan Assessment Current Active Medications: Generic Name Dose Route Start Last Admin Trade Name Freq PRN Reason Stop Dose Admin Acetaminophen 650 mg 02/14/25 17:18 Acetaminophen 325 Mg Tablet PO 03/16/25 17:17 Q6H PRN Fever >100.4 Hydrocodone Bitart/Acetaminophen 1 tab 02/15/25 16:08 Hydrocodone/Apap 10/325 Tab PO 02/20/25 16:07 TID PRN pain Albuterol/Ipratropium 3 ml 02/14/25 18:34 02/16/25 10:01 Albuterol/Ipratropium (Duoneb) Rt Sravani 3 Ml Nebu INH 03/16/25 18:33 3 ml Q6HRRT PRN Administration Wheezing Aspirin 81 mg 02/14/25 17:30 02/16/25 09:21 Aspirin Ec 81 Mg Tabec PO 03/16/25 17:29 81 mg QDAY LISETTE Administration Atorvastatin Calcium 20 mg 02/14/25 21:00 02/15/25 20:05 Atorvastatin Calcium 20 Mg Tablet PO 03/16/25 20:59 20 mg HS LISETTE Administration Dextrose 25 ml 02/14/25 17:23 Dextrose 50%-Water Inj 50 Ml Syringe IV 03/16/25 17:22 Q15MIN PRN BG 50-70 responsive npo pt Dextrose 50 ml 02/14/25 17:23 Dextrose 50%-Water Inj 50 Ml Syringe IV 03/16/25 17:22 Q15MIN PRN BG <50 OR BG <70 & pt unresponsive Docusate Sodium 200 mg 02/15/25 09:00 02/16/25 09:21 Docusate Sod 100 Mg Capsule PO 03/17/25 08:59 200 mg QDAY LISETTE Administration Protocol Doxycycline Hyclate 100 mg 02/16/25 09:00 02/16/25 09:21 Doxycycline 100 Mg Tablet PO 02/23/25 08:59 100 mg BID LISETTE Administration Furosemide 40 mg 02/14/25 17:30 02/16/25 09:21 Furosemide 40 Mg Tablet PO 03/16/25 17:29 40 mg QAM LISETTE Administration Glucagon 1 mg 02/14/25 17:23 Glucagon Inj 1 Mg Vial IM Q15MIN PRN BG <70, and no IV access Piperacillin/Tazobactam/Dextrose 3.375 gm in 50 mls @ 12.5 mls/hr 02/14/25 22:00 02/16/25 13:38 Zosyn IV 02/21/25 21:59 12.5 mls/hr Q8HR LISETTE Administration Insulin Human Lispro 0 unit 02/15/25 11:30 02/16/25 11:01 Insulin Lispro (Admelog) 1 Unit/0.01 Ml Unit SC 03/17/25 11:29 1 unit ACHS LISETTE Administration Protocol Levothyroxine Sodium 100 mcg 02/15/25 06:00 02/16/25 06:24 Levothyroxine Sodium 100 Mcg Tablet PO 03/17/25 05:59 100 mcg ACBR LISETTE Administration Methylprednisolone Sodium Succinate 40 mg 02/14/25 18:45 02/16/25 09:23 Methylprednisolone Sod Succ 40 Mg Vial IVP 02/21/25 18:44 40 mg QDAY LISETTE Administration Metoprolol Succinate 25 mg 02/15/25 09:00 02/16/25 09:22 Metoprolol Succinate Xl 25 Mg Tabcr PO 03/17/25 08:59 25 mg QDAY LISETTE Administration Ondansetron HCl 4 mg 02/14/25 17:18 Ondansetron Inj 2 Mg/Ml Inj 2 Ml IVP 03/16/25 17:17 Q6H PRN NAUSEA OR VOMITING Protocol Pantoprazole Sodium 40 mg 02/14/25 17:30 02/16/25 09:21 Pantoprazole Inj 40 Mg Vial IVP 03/16/25 17:29 40 mg QDAY LISETTE Administration Polyethylene Glycol 17 gm 02/15/25 09:00 02/16/25 09:24 Polyethylene Glycol 17 Gm Packet PO 03/17/25 08:59 Not Given QDAY LISETTE Pramipexole Dihydrochloride 1 mg 02/14/25 21:00 02/15/25 20:05 Pramipexole 0.25 Mg Tablet PO 03/16/25 20:59 1 mg HS LISETTE Administration Venlafaxine HCl 150 mg 02/14/25 21:00 02/15/25 20:05 Venlafaxine Xr 37.5 Mg Capcr PO 03/16/25 20:59 150 mg HS LISETTE Administration
[2025-02-16] MEDS: VENLAFAXINE XR 37.5 MG CAPCR 150 MG PO (20:50)
[2025-02-16] MEDS: PRAMIPEXOLE 0.25 MG TABLET 1 MG PO (20:50)
[2025-02-16] MEDS: ATORVASTATIN CALCIUM 20 MG TABLET PO (20:51)
--- NOTE | 2025-02-16 21:33 | ESDS_ITS ---
Planned Discharge Date 02/16/25 DS: Providers Provider Date of admission: 02/14/25 17:18 Primary care physician: Physician No Primary/Family Admitting Provider: Phuc Yo MD Attending Provider on Admission: Roosevelt Barbosa MD Consults: 02/15/25 06:17 Referral Wound Care Routine Comment: coccyx wound 02/15/25 16:08 Referral Hospice Routine Comment: Attending Provider on DC: Roosevelt Barbosa MD Discharging Provider: Roosevelt Barbosa MD DS: Diagnosis Problem List Completed Was Problem List Reviewed/Reconciled?: Yes Hospital Course Hospital Course Hospital course: An 89-year-old female with a history of ILD/pulmonary fibrosis, 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 She was found to be lethargic at home and admitted for acute on chronic hypoxic and hypercapnic respiratory failure, likely secondary to progression of her underlying ILD and possible superimposed pneumonia. Additional contributing factors included recent administration of morphine and Ativan by hospice, BiPAP mask air leaks, and possible UTI. Imaging revealed bilateral pneumonia and pulmonary vascular congestion; labs showed leukocytosis with left shift. She improved with BiPAP support, IV antibiotics (Zosyn and Vancomycin), methylprednisolone, and supportive care. Her mental status gradually improved during hospitalization. She was continued on home BiPAP at night and PRN during the day, with 15L oxymask as needed. Antibiotics were continued for hospital-acquired pneumonia and UTI, pending final cultures. LASIX was increased to 40 mg daily for fluid overload. Her hypothyroidism remained well-controlled on levothyroxine, and her diabetes was managed with a sliding scale. Given known esophageal stenosis and recent refusal to eat, she was started on a Dysphagia 3 diet per speech recommendations. She is being discharged in stable condition, with close monitoring of respiratory status, fluid balance, and nutrition. Prognosis remains guarded given underlying pulmonary fibrosis and recurrent hospitalizations. PATIENT INSTRUCTIONS: * Follow-up with PCP within 1-2 weeks of discharge. * We've ordered labs for hypercalcemia (corrected calcium 10.4), including PTH/VITAMIN D/CMP to be completed within 1 week after discharge. Please discuss lab results with your PCP. * Return to Emergency Room if symptoms persist, worsen, or new symptoms develop. * Continue taking prednisone as prescribed and taper. * Continue using BiPAP at night daily and as needed for shortness of breath and to prevent CO2 retention. * Insulin needs to be adjusted when steroid dose is tapered down each month. * Recommended to take send homolog as per sliding scale. * Recommended to take Lasix 20 Mg instead of 40 mg every day. * Recommended to take rest of the home medications as prescribed. * Recommended salt and fluid restriction. * Continue taking other medications as prescribed below. ADMISSION DIAGNOSES: Acute encephalopathy (resolved) Acute hypercapnic respiratory failure Chronic respiratory failure Appropriately compensated Acute vs. Chronic Respiratory Acidosis Worsening ILD/pulmonary fibrosis Possible superimposed bilateral pneumonia UTI Hx Pseudomonas aeruginosa HFpEF EF 65% Hypothyroidism T2DM Dysphagia Esophageal stenosis s/p dilation Chronic constipation Case was discussed with attending physician and senior resident. Jeffry Eller DO PGYII Time Spent with Patient Time attestation: Total time spent providing and/or coordinating discharge services: Time spent: Less than 30 minutes Exam Vital Signs Temp Pulse Resp BP Pulse Ox O2 Del Method O2 Flow Rate 97 F 95 27 H 125/61 100 Nasal Cannula 2 02/16/25 20:00 02/16/25 20:36 02/16/25 20:36 02/16/25 20:00 02/16/25 20:36 02/16/25 20:00 02/16/25 20:00 FiO2 30 02/16/25 20:36 Narrative Exam General: alert and oriented x4 HEENT: Normocephalic, atraumatic, mucous membranes moist. Heart: Regular rate and rhythm, no murmurs. Lungs: Bilateral fine inspiratory crackles are heard. Bilateral bronchial breath sounds heard Abdomen: Soft, nondistended, nontender, positive bowel sounds. ?No guarding or rebound tenderness. Neurologic: no gross neurological deficit, and patient able to move all 4 extremities. Extremities: No edema. Skin: No rash or ecchymoses. Discharge Plan Plan Patient Disposition: Xfer Other Facility Pt Being Transferred to: Other-Specify in comment Disposition Comment: [facility] Patient condition on transfer: Stable Care Plan Goals: * Follow-up with PCP within 1-2 weeks of discharge. * We've ordered labs for hypercalcemia (corrected calcium 10.4), including PTH/VITAMIN D/CMP to be completed within 1 week after discharge. Please discuss lab results with your PCP. * Return to Emergency Room if symptoms persist, worsen, or new symptoms develop. * Continue taking prednisone as prescribed and taper. * Continue using BiPAP at night daily and as needed for shortness of breath and to prevent CO2 retention. * Insulin needs to be adjusted when steroid dose is tapered down each month. * Recommended to take send homolog as per sliding scale. * Recommended to take Lasix 20 Mg instead of 40 mg every day. * Recommended to take rest of the home medications as prescribed. * Recommended salt and fluid restriction. * Follow-up with home BiPAP provider for regular maintenance. * Please use the following BiPAP settings: IPAP 18, EPAP 8, FiO2 greater or equal to 30% PRN. * Continue taking other medications as prescribed below. Prescriptions/Referrals Prescriptions/Med Rec: Continued levothyroxine 75 mcg Tablet 100 mcg PO QAM Rx Instructions: pt now taking 100 MCG methenamine hippurate 1 gram tablet 1 g PO BID Patient Comments: TAKE 1 TABLET BY MOUTH TWICE A DAY WITH 500 MG OF VITAMIN C Rx Instructions: TAKE 1 TABLET BY MOUTH TWICE A DAY WITH 500 MG OF VITAMIN C venlafaxine 150 mg capsule,extended release 24hr 150 mg PO QDAY omeprazole 40 mg Capsule,Delayed Release(Dr/Ec) 40 mg PO QDAY rosuvastatin 5 mg Tablet 5 mg PO HS aspirin 81 mg Tablet 81 mg PO QDAY ascorbic acid (vitamin C) [Vitamin C] 500 mg Tablet 500 mg PO BID metoprolol succinate 25 mg Tablet Extended Release 24 Hr 25 mg PO QDAY Qty: 30 0RF insulin glargine [Lantus U-100 Insulin] 100 unit/mL solution 20 unit SUBCUT HS prednisone 10 mg tablet See Taper PO QDAY Qty: 360 0RF Taper: Prednisone Taper 40 mg DAILY for 30 Days and 0 Hour 30 mg DAILY for 30 Days and 0 Hour 20 mg DAILY for 30 Days and 0 Hour 10 mg DAILY for 30 Days and 0 Hour 5 mg DAILY for 30 Days and 0 Hour Rx Instructions: Take 40 mg (4, 10 mg tablets) for 30 days, then Take 30 mg (3, 10 mg tablets) for 30 days, then Take 20 mg (2, 10 mg tablets) for 30 days, then Take 10 mg (1, 10 mg tablet) for 30 days, then Take 5 mg (1/2, 10 mg tablet) for 30 days insulin lispro [Humalog KwikPen Insulin] 100 unit/mL insulin pen 1 sliding scale dose subcut USEASDIRECTD Qty: 15 3RF insulin aspart U-100 [Novolog FlexPen U-100 Insulin] 100 unit/mL (3 mL) insulin pen 1 sliding scale dose subcut USEASDIRECTD Qty: 15 3RF Rx Instructions: Take insulin as per sliding scale levothyroxine 100 mcg tablet 100 mcg PO QDAY glimepiride 2 mg tablet 2 mg PO BID Azo Cranberry 250 mg tablet,chewable 500 mg PO QDAY furosemide 40 mg tablet 40 mg PO QAM Patient Comments: TAKE 1 TABLET BY MOUTH EVERY DAY IN THE MORNING hydrocodone-acetaminophen 10-325 mg tablet 1 tab PO TID PRN (Reason: pain) pramipexole 0.5 mg tablet 1 mg PO HS Patient Comments: TAKE 1 TABLET BY MOUTH EVERYDAY AT BEDTIME cranberry 500 mg capsule 1,000 mg PO QDAY Rx Instructions: administer with a meal Probiotic 20 billion cell capsule 25,000 mmu cells PO QDAY Rx Instructions: administer with a meal calcium carbonate-vitamin D3 [Calcium 600 + D(3)] 600 mg-5 mcg (200 unit) tablet 0.5 tab PO QDAY Referrals: No Primary/Family,Physician [Primary Care Provider] - Outpatient Orders (i.e. Home Health, Labs, Imaging): Comprehensive Metabolic Panel (Routine) Location: None Selected Ordered By: Jeffry Eller Parathyroid Hormone Intact (Routine) Location: None Selected Ordered By: Jeffry Eller Vitamin D 25 Hydroxy Total (Routine) Location: None Selected Ordered By: Jeffry Eller Patient/Caregiver Discharge Instructions Education Materials: Chest and Lung Problems, Preventing Common Respiratory ..., Using a BPAP Print Language: Singaporean Stand Alone Forms: [facility] Award Info., Patient Portal Info Letter Discharge Order Discharge Orders: Discharge (Routine); Ordered 02/16/25 Ordered By: Jeffry Eller Quality Discharge Quality Measures VTE prophylaxis Attestestation Attestation I attest that I was physically present for the evaluation, physical examination, lab and imaging review of the patient with the residents. I discussed the case with the residents and agree with the findings and plans of care as documented above. Roosevelt Barbosa MD
[2025-02-17] VITALS (12 sets, daily range): BP systolic 94–143; BP diastolic 48–82; PULSE 78–102; RESP 18–30; TEMP 36.2–36.6; O2SAT 92–100; BMI 39.8
[2025-02-17] MEDS: ALBUTEROL/IPRATROPIUM (Duoneb) RT SOL 3 ML NEBU INH (01:51)
[2025-02-17] MEDS: LEVOTHYROXINE SODIUM 100 MCG TABLET PO (05:04)
[2025-02-17] MEDS: PIPER/TAZO 3.375 GM PREMIX 3.375 GM/50 ML BAG IV ×2 (05:04→13:27)
[2025-02-17 06:24] LABS: Basophils # (Auto) 0.0 Thou/mm3 (0.0-0.2); Basophils % (Auto) 0 % (0-2.5); Eosinophils # (Auto) 0.4 Thou/mm3 (0.0-0.5); Eosinophils % (Auto) 3 % (0-10); Hematocrit 36.2 % (36.0-46.0); Hemoglobin 10.8 g/dL (12.0-16.0); Immature Granulocytes Auto 0.15 Thou/mm3 (0.00-0.00); Lymphocytes # (Auto) 1.6 Thou/mm3 (1.0-4.8); Lymphocytes % (Auto) 12 % (10-50); Mean Corpuscular HGB Conc 29.8 g/dl (31.0-37.0); Mean Corpuscular Hemoglobin 28.0 pg (25.0-35.0); Mean Corpuscular Volume 94 fL (80-100); Monocytes # (Auto) 1.3 Thou/mm3 (0.0-0.8); Monocytes % (Auto) 9 % (0-12); Neutrophils # (Auto) 9.9 Thou/mm3 (1.8-7.7); Neutrophils % (Auto) 75 % (37-80); Nucleated Red Blood Cell # 0.00 Thou/mm3 (0.00-0.00); Nucleated Red Blood Cell % 0 /100 WBC (0); Platelet Count 244 Thou/mm3 (140-440); RDW Standard Deviation 53.5 fL (36.4-46.3); Red Blood Count 3.86 Miln/mm3 (4.00-5.20); White Blood Count 13.4 Thou/mm3 (3.6-11.0)
[2025-02-17 06:40] LABS: Alanine Aminotransferase 21 U/L (10-49); Albumin, Serum 3.5 gm/dL (3.4-4.8); Albumin/Globulin Ratio 1.5 (1.2-2.2); Alkaline Phosphatase 49 U/L (46-116); Anion Gap 7 (7-16); Aspartate Amino Transferase 13 U/L (0-34); BUN/Creatinine Ratio 25 Ratio (12-20); Bilirubin,Total 0.5 mg/dL (0.3-1.2); Blood Urea Nitrogen 25 mg/dL (9-23); Calcium 10.0 mg/dL (8.3-10.6); Calcium (Corrected) 10.4 mg/dL (8.5-10.1); Carbon Dioxide > 40.0 mMol/L (20.0-31.0); Chloride 91 mMol/L (98-107); Creatinine (Component) 1.0 mg/dL (0.6-1.3); Estimated Creatinine Clearance 41.7 mL/min (>60); Globulin 2.3 gm/dL (2.3-3.5); Glucose 151 mg/dL (74-106); Magnesium 1.9 mg/dL (1.6-2.6); Osmolality,Calculated 283 (275-295); Phosphorous 2.0 mg/dL (2.4-5.1); Potassium 4.2 mMol/L (3.4-5.1); Sodium 138 mMol/L (136-145); Total Protein 5.8 gm/dL (5.7-8.2); eGFR 54 See Note
--- NOTE | 2025-02-17 07:18 | PC.SS ---
Addendum entered by DAXA Reese 02/17/25 16:08: SS follow up: [facility] Case Control ID: [id number] current status continues as In clinical review . Continues pending final appeal outcome. Addendum entered by DAXA Reese 02/17/25 14:46: Rounding note: patient had a rapid response called today. Patient is also pending [employer] appeal outcome. Addendum entered by DAXA Reese 02/17/25 11:51: [facility] Control ID: [id number] current status is In clinical review . Continues pending final outcome. Addendum entered by DAXA Reese 02/17/25 08:51: SS follow up: [facility] Case Control ID: [id number] current status is In clinical review . Continues pending final outcome. Original Note: SS follow up: [employer] appeal was completed. Documentation submitted to [employer] for the Case Control ID: [id number]. Pending appeal outcome.
[2025-02-17] MEDS: INSULIN LISPRO (AdmeLOG) 1 UNIT/0.01 ML UNIT SC ×4 (07:38→20:48)
[2025-02-17] MEDS: POLYETHYLENE GLYCOL 17 GM PACKET PO (08:44)
[2025-02-17] MEDS: DOCUSATE SOD 100 MG CAPSULE 200 MG PO (08:45)
[2025-02-17] MEDS: ASPIRIN EC 81 MG TABEC PO (08:45)
[2025-02-17] MEDS: METOPROLOL SUCCINATE XL 25 MG TABCR PO (08:46)
[2025-02-17] MEDS: DOXYCYCLINE 100 MG TABLET PO ×2 (08:46→20:48)
--- NOTE | 2025-02-17 11:56 | ESDS_ITS ---
Planned Discharge Date 02/17/25 DS: Providers Provider Date of admission: 02/14/25 17:18 Primary care physician: Physician No Primary/Family Admitting Provider: Phuc Yo MD Attending Provider on Admission: Roosevelt Barbosa MD Consults: 02/15/25 06:17 Referral Wound Care Routine Comment: coccyx wound 02/15/25 16:08 Referral Hospice Routine Comment: Attending Provider on DC: Roosevelt Barbosa MD Discharging Provider: Roosevelt Barbosa MD DS: Diagnosis Problem List Completed Was Problem List Reviewed/Reconciled?: Yes Hospital Course Hospital Course Hospital course: An 89-year-old female with a history of ILD/pulmonary fibrosis, 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 She was found to be lethargic at home and admitted for acute on chronic hypoxic and hypercapnic respiratory failure, likely secondary to progression of her underlying ILD and possible superimposed pneumonia. Additional contributing factors included recent administration of morphine and Ativan by hospice, BiPAP mask air leaks, and possible UTI. Imaging revealed bilateral pneumonia and pulmonary vascular congestion; labs showed leukocytosis with left shift. She improved with BiPAP support, IV antibiotics (Zosyn and Vancomycin), methylprednisolone, and supportive care. Her mental status gradually improved during hospitalization. She was continued on home BiPAP at night and PRN during the day, with 15L oxymask as needed. Antibiotics were continued for hospital-acquired pneumonia and UTI, pending final cultures. LASIX was increased to 40 mg daily for fluid overload. Her hypothyroidism remained well-controlled on levothyroxine, and her diabetes was managed with a sliding scale. Given known esophageal stenosis and recent refusal to eat, she was started on a Dysphagia 3 diet per speech recommendations. She is being discharged in stable condition, with close monitoring of respiratory status, fluid balance, and nutrition. Prognosis remains guarded given underlying pulmonary fibrosis and recurrent hospitalizations. Of note: Our social work specialist had previously spoken with the BiPAP provider who confirmed that home BiPAP machine is actively being serviced, and currently in working condition. BiPAP settings which were provided by our orthopaedic technologist have been shared with BiPAP provider, and they stated they currently are using the current settings. However they also state that the patient continuously calling for BiPAP services, and they have came out regularly to serve as a BiPAP and it always has been in good working condition. I have advised family member to continue to follow-up with BiPAP provider as needed to ensure that BiPAP machine is working appropriately, which seems to be the case. We also advised against LORAZEPAM or MORPHINE and any other narcotics that may decrease her respiratory drive. PATIENT INSTRUCTIONS: * Follow-up with PCP within 1-2 weeks of discharge. * We've ordered labs for hypercalcemia (corrected calcium 10.4), including PTH/VITAMIN D/CMP to be completed within 1 week after discharge. Please discuss lab results with your PCP. * Return to Emergency Room if symptoms persist, worsen, or new symptoms develop. * Continue taking prednisone as prescribed and taper. * Continue using BiPAP at night daily and as needed for shortness of breath and to prevent CO2 retention. * Insulin needs to be adjusted when steroid dose is tapered down each month. * Recommended to take send homolog as per sliding scale. * Recommended to take Lasix 20 Mg instead of 40 mg every day. * Recommended to take rest of the home medications as prescribed. * Recommended salt and fluid restriction. * Please use the following BiPAP settings: IPAP 18, EPAP 8, FiO2 greater or equal to 30% PRN. * Continue taking other medications as prescribed below. ADMISSION DIAGNOSES: Acute encephalopathy (resolved) Acute hypercapnic respiratory failure Chronic respiratory failure Appropriately compensated Acute vs. Chronic Respiratory Acidosis Worsening ILD/pulmonary fibrosis Possible superimposed bilateral pneumonia UTI Hx Pseudomonas aeruginosa HFpEF EF 65% Hypothyroidism T2DM Dysphagia Esophageal stenosis s/p dilation Chronic constipation Case was discussed with attending physician and senior resident. Jeffry Eller DO PGYII Time Spent with Patient Time attestation: Total time spent providing and/or coordinating discharge services: Time spent: Less than 30 minutes Exam Vital Signs Temp Pulse Resp BP Pulse Ox O2 Del Method O2 Flow Rate 97.2 F 92 18 122/56 L 97 Nasal Cannula 2 02/17/25 08:00 02/17/25 08:46 02/17/25 08:00 02/17/25 08:46 02/17/25 08:00 02/17/25 08:00 02/17/25 04:00 FiO2 2.5 02/17/25 08:00 Narrative Exam General: alert and oriented x4 HEENT: Normocephalic, atraumatic, mucous membranes moist. Heart: Regular rate and rhythm, no murmurs. Lungs: Bilateral fine inspiratory crackles are heard. Bilateral bronchial breath sounds heard Abdomen: Soft, nondistended, nontender, positive bowel sounds. ?No guarding or rebound tenderness. Neurologic: no gross neurological deficit, and patient able to move all 4 extremities. Extremities: No edema. Skin: No rash or ecchymoses. Discharge Plan Plan Patient Disposition: er Other Facility Pt Being Transferred to: Other-Specify in comment Disposition Comment: [facility] Patient condition on transfer: Stable Care Plan Goals: * Follow-up with PCP within 1-2 weeks of discharge. * We've ordered labs for hypercalcemia (corrected calcium 10.4), including PTH/VITAMIN D/CMP to be completed within 1 week after discharge. Please discuss lab results with your PCP. * Return to Emergency Room if symptoms persist, worsen, or new symptoms develop. * Continue taking prednisone as prescribed and taper. * Continue using BiPAP at night daily and as needed for shortness of breath and to prevent CO2 retention. * Insulin needs to be adjusted when steroid dose is tapered down each month. * Recommended to take send homolog as per sliding scale. * Recommended to take Lasix 20 Mg instead of 40 mg every day. * Recommended to take rest of the home medications as prescribed. * Recommended salt and fluid restriction. * Follow-up with home BiPAP provider for regular maintenance. * Please use the following BiPAP settings: IPAP 18, EPAP 8, FiO2 greater or equal to 30% PRN. * Continue taking other medications as prescribed below. Prescriptions/Referrals Prescriptions/Med Rec: Continued levothyroxine 75 mcg Tablet 100 mcg PO QAM Rx Instructions: pt now taking 100 MCG methenamine hippurate 1 gram tablet 1 g PO BID Patient Comments: TAKE 1 TABLET BY MOUTH TWICE A DAY WITH 500 MG OF VITAMIN C Rx Instructions: TAKE 1 TABLET BY MOUTH TWICE A DAY WITH 500 MG OF VITAMIN C venlafaxine 150 mg capsule,extended release 24hr 150 mg PO QDAY omeprazole 40 mg Capsule,Delayed Release(Dr/Ec) 40 mg PO QDAY rosuvastatin 5 mg Tablet 5 mg PO HS aspirin 81 mg Tablet 81 mg PO QDAY ascorbic acid (vitamin C) [Vitamin C] 500 mg Tablet 500 mg PO BID metoprolol succinate 25 mg Tablet Extended Release 24 Hr 25 mg PO QDAY Qty: 30 0RF insulin glargine [Lantus U-100 Insulin] 100 unit/mL solution 20 unit SUBCUT HS prednisone 10 mg tablet See Taper PO QDAY Qty: 360 0RF Taper: Prednisone Taper 40 mg DAILY for 30 Days and 0 Hour 30 mg DAILY for 30 Days and 0 Hour 20 mg DAILY for 30 Days and 0 Hour 10 mg DAILY for 30 Days and 0 Hour 5 mg DAILY for 30 Days and 0 Hour Rx Instructions: Take 40 mg (4, 10 mg tablets) for 30 days, then Take 30 mg (3, 10 mg tablets) for 30 days, then Take 20 mg (2, 10 mg tablets) for 30 days, then Take 10 mg (1, 10 mg tablet) for 30 days, then Take 5 mg (1/2, 10 mg tablet) for 30 days insulin lispro [Humalog KwikPen Insulin] 100 unit/mL insulin pen 1 sliding scale dose subcut USEASDIRECTD Qty: 15 3RF insulin aspart U-100 [Novolog FlexPen U-100 Insulin] 100 unit/mL (3 mL) insulin pen 1 sliding scale dose subcut USEASDIRECTD Qty: 15 3RF Rx Instructions: Take insulin as per sliding scale levothyroxine 100 mcg tablet 100 mcg PO QDAY glimepiride 2 mg tablet 2 mg PO BID Azo Cranberry 250 mg tablet,chewable 500 mg PO QDAY furosemide 40 mg tablet 40 mg PO QAM Patient Comments: TAKE 1 TABLET BY MOUTH EVERY DAY IN THE MORNING hydrocodone-acetaminophen 10-325 mg tablet 1 tab PO TID PRN (Reason: pain) pramipexole 0.5 mg tablet 1 mg PO HS Patient Comments: TAKE 1 TABLET BY MOUTH EVERYDAY AT BEDTIME cranberry 500 mg capsule 1,000 mg PO QDAY Rx Instructions: administer with a meal Probiotic 20 billion cell capsule 25,000 mmu cells PO QDAY Rx Instructions: administer with a meal calcium carbonate-vitamin D3 [Calcium 600 + D(3)] 600 mg-5 mcg (200 unit) tablet 0.5 tab PO QDAY Referrals: No Primary/Family,Physician [Primary Care Provider] - Outpatient Orders (i.e. Home Health, Labs, Imaging): Comprehensive Metabolic Panel (Routine) Location: None Selected Ordered By: Jeffry Eller Parathyroid Hormone Intact (Routine) Location: None Selected Ordered By: Jeffry Eller Vitamin D 25 Hydroxy Total (Routine) Location: None Selected Ordered By: Jeffry Eller Patient/Caregiver Discharge Instructions Education Materials: Chest and Lung Problems, Preventing Common Respiratory ..., Using a BPAP Print Language: Luxembourgish Stand Alone Forms: [employer] Award Info., Patient Portal Info Letter Discharge Order Discharge Orders: Discharge (Routine); Ordered 02/16/25 Ordered By: Jeffry Eller Quality Discharge Quality Measures VTE prophylaxis MD Attestestation MD Attestation I attest that I was physically present for the evaluation, physical examination, lab and imaging review of the patient with the residents. I discussed the case with the residents and agree with the findings and plans of care as documented above. Roosevelt Barbosa MD
[2025-02-17 12:08] LABS: Base Excess, Venous 18 (-3-3); O2 Saturation, Venous 76 % (96-97); PCO2, Venous 74 mmHg (36-56); PO2, Venous 42 mmHg (15-58); pH, Venous 7.40 (7.33-7.66)
[2025-02-17] MEDS: ONDANSETRON INJ 2 MG/ML INJ 2 ML 4 MG IVP ×2 (13:27→20:49)
--- NOTE | 2025-02-17 14:01 | EKG_ITS ---
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
--- NOTE | 2025-02-17 14:02 | XR_ITS ---
Examination: AP chest single view Technique one AP portable upright chest single view Date and time: February 17, 2025, 1417 hours Comparison February 14, 2025 INDICATIONS: Shortness of breath chest pain beginning today. FINDINGS: Moderate heart failure Moderate enlargement cardiac contour, prominent vascular congestion with perihilar edema Prominent osteopenia IMPRESSION: Moderate CHF
--- NOTE | 2025-02-17 14:07 | PD.RESEVENT ---
Documentation for date of: 02/17/25 Event Note Event Note: RR was called around 1 PM today 02/17/2025 as patient was complaining of chest pain. On evaluation, pain is reproducible in the epigastrium, nonradiating, not stabbing in nature, nonexertional, not substernal. EKG was ordered which showed sinus rhythm without acute ST changes, showed RBBB. Troponin was negative. CXR showed moderate CHF. Chest pain most likely indigestion secondary to GERD. She was given MAALOX x 1, symptoms resolved. Continued PROTONIX as scheduled. Continue to monitor closely. Case was discussed with attending physician. Jeffry Eller, PGY II This document was transcribed using voice recognition technology. Minor inaccuracies may be present.
[2025-02-17 14:44] LABS: Troponin I < 0.020 ng/mL (0.0-0.045)
[2025-02-17] MEDS: MG HYD/AL HYD/SIME (Maalox Reg) SUSP 30 ML UDC PO (15:26)
[2025-02-17] MEDS: METOCLOPRAMIDE INJ 5 MG/ML VIAL 2 ML 10 MG IVP (15:27)
[2025-02-17] MEDS: PRAMIPEXOLE 0.25 MG TABLET 1 MG PO (20:47)
[2025-02-17] MEDS: VENLAFAXINE XR 37.5 MG CAPCR 150 MG PO (20:47)
[2025-02-17] MEDS: ATORVASTATIN CALCIUM 20 MG TABLET PO (20:48)
[2025-02-17] MEDS: INSULIN GLARGINE (Lantus) 5 UNIT/0.05 ML (PER 5 UNITS) 10 UNIT SC (20:48)
[2025-02-18] VITALS (12 sets, daily range): BP systolic 94–120; BP diastolic 42–72; PULSE 89–107; RESP 16–22; TEMP 36.1–36.6; O2SAT 93–100; BMI 36.3
[2025-02-18] MEDS: PIPER/TAZO 3.375 GM PREMIX 3.375 GM/50 ML BAG IV ×4 (00:37→21:30)
[2025-02-18 05:27] LABS: Basophils # (Auto) 0.0 Thou/mm3 (0.0-0.2); Basophils % (Auto) 0 % (0-2.5); Eosinophils # (Auto) 0.4 Thou/mm3 (0.0-0.5); Eosinophils % (Auto) 3 % (0-10); Hematocrit 38.4 % (36.0-46.0); Hemoglobin 11.3 g/dL (12.0-16.0); Immature Granulocytes Auto 0.12 Thou/mm3 (0.00-0.00); Lymphocytes # (Auto) 1.4 Thou/mm3 (1.0-4.8); Lymphocytes % (Auto) 11 % (10-50); Mean Corpuscular HGB Conc 29.4 g/dl (31.0-37.0); Mean Corpuscular Hemoglobin 27.7 pg (25.0-35.0); Mean Corpuscular Volume 94 fL (80-100); Monocytes # (Auto) 1.3 Thou/mm3 (0.0-0.8); Monocytes % (Auto) 10 % (0-12); Neutrophils # (Auto) 9.7 Thou/mm3 (1.8-7.7); Neutrophils % (Auto) 75 % (37-80); Nucleated Red Blood Cell # 0.00 Thou/mm3 (0.00-0.00); Nucleated Red Blood Cell % 0 /100 WBC (0); Platelet Count 249 Thou/mm3 (140-440); RDW Standard Deviation 55.1 fL (36.4-46.3); Red Blood Count 4.08 Miln/mm3 (4.00-5.20); White Blood Count 12.9 Thou/mm3 (3.6-11.0)
[2025-02-18] MEDS: LEVOTHYROXINE SODIUM 100 MCG TABLET PO (05:38)
[2025-02-18 06:02] LABS: Alanine Aminotransferase 22 U/L (10-49); Albumin, Serum 3.7 gm/dL (3.4-4.8); Albumin/Globulin Ratio 1.5 (1.2-2.2); Alkaline Phosphatase 50 U/L (46-116); Anion Gap 12 (7-16); Aspartate Amino Transferase 18 U/L (0-34); BUN/Creatinine Ratio 24 Ratio (12-20); Bilirubin,Total 0.5 mg/dL (0.3-1.2); Blood Urea Nitrogen 26 mg/dL (9-23); Calcium 9.9 mg/dL (8.3-10.6); Calcium (Corrected) 10.1 mg/dL (8.5-10.1); Carbon Dioxide > 40.0 mMol/L (20.0-31.0); Chloride 87 mMol/L (98-107); Creatinine (Component) 1.1 mg/dL (0.6-1.3); Estimated Creatinine Clearance 37.9 mL/min (>60); Globulin 2.5 gm/dL (2.3-3.5); Glucose 148 mg/dL (74-106); Magnesium 2.0 mg/dL (1.6-2.6); Osmolality,Calculated 285 (275-295); Phosphorous 2.6 mg/dL (2.4-5.1); Potassium 4.0 mMol/L (3.4-5.1); Sodium 139 mMol/L (136-145); Total Protein 6.2 gm/dL (5.7-8.2); eGFR 48 See Note
[2025-02-18] MEDS: DOCUSATE SOD 100 MG CAPSULE 200 MG PO (08:24)
[2025-02-18] MEDS: ASPIRIN EC 81 MG TABEC PO (08:24)
[2025-02-18] MEDS: DOXYCYCLINE 100 MG TABLET PO ×2 (08:26→20:11)
[2025-02-18] MEDS: PANTOPRAZOLE 40 MG TABLET PO (08:26)
[2025-02-18] MEDS: POLYETHYLENE GLYCOL 17 GM PACKET PO (08:27)
--- NOTE | 2025-02-18 11:38 | PC.SS ---
Appeal decision received. [facility] physician reviewer has agreed with termination of services. Piece Dyer contacted patient?s nephew Jg Arredondonn [phone] who became upset due to decision. Jg Sharma?s spouse joined call and stated patient was needing updated BiPaP settings before being able to return home. Edith also stated patient needed a wearable patch to monitor blood levels and a glucose pen. Piece Dyer informed Edith patient would need to obtain wearable patch and glucose pen from PCP. ?Piece Dyer informed Dr. Eller of family?s concerns. Dr. Eller recommended a BiPAP be ordered for patient. SS to submit referral.
[2025-02-18] MEDS: INSULIN LISPRO (AdmeLOG) 1 UNIT/0.01 ML UNIT SC ×3 (12:21→20:12)
--- NOTE | 2025-02-18 12:59 | PC.SS ---
Addendum entered by Deborah Urbina 02/18/25 14:11: Bryant informed patient will not be discharging today. Cynthia stated she will be available tomorrow again, 02/19. Addendum entered by Deborah Urbina 02/18/25 13:42: Cook Taco received call from Angelita Coffman's spouse, she explained they will be appealing discharge again, Edith to provide case ID once appeal has been submitted. Edith is requesting appt. be scheduled with the [facility]. Original Note: Cook Taco attempted to contact patient's nephew Jg Coffman [phone]. However, his spouse Edith answered and stated she would have patient's nephmary Gregorio return call when available. Cook Taco contacted Cynthia Puente, she stated she can meet with patient and family to adjust settings. Patient is already an established client of [facility]. Cynthia Montero explained she can make adjustments but patient may need to get updated settings from her PCP. Cynthia also requested SS confirm if patient is discharging with Hospice. Cook Taco informed Cynthia that as of 02/16/25, family has requested patient discharge with [facility]. Hospice was discontinued.
--- NOTE | 2025-02-18 14:52 | PC.SS ---
Welder Journeyman received a call from Lissy who stated she will have the pts nephew take over the handling of this situation as she is not able to assist with this anymore due to a in her family. Lissy reported the pts nephew is Jg Coffman [phone]. Lissy stated she will call [facility] to add Jg as a person allowed to communicate with them regarding the appeal. No other updates at this time and the pt remains admitted.
--- NOTE | 2025-02-18 16:16 | ESDS_ITS ---
Planned Discharge Date 02/18/25 DS: Providers Provider Date of admission: 02/14/25 17:18 Primary care physician: Physician No Primary/Family Admitting Provider: Phuc Yo MD Attending Provider on Admission: Roosevelt Barbosa MD Consults: 02/15/25 06:17 Referral Wound Care Routine Comment: coccyx wound 02/15/25 16:08 Referral Hospice Routine Comment: 02/17/25 15:29 Referral Nutritional Services Routine Comment: Wounds Attending Provider on DC: Roosevelt Barbosa MD Discharging Provider: Roosevelt Babrosa MD DS: Diagnosis Problem List Completed Was Problem List Reviewed/Reconciled?: Yes Hospital Course Hospital Course Hospital course: An 89-year-old female with a history of ILD/pulmonary fibrosis, 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 She was found to be lethargic at home and admitted for acute on chronic hypoxic and hypercapnic respiratory failure, likely secondary to progression of her underlying ILD and possible superimposed pneumonia. Additional contributing factors included recent administration of morphine and Ativan by hospice, BiPAP mask air leaks, and possible UTI. Imaging revealed bilateral pneumonia and pulmo nary vascular congestion; labs showed leukocytosis with left shift. She improved with BiPAP support, IV antibiotics (Zosyn and Vancomycin), methylprednisolone, and supportive care. Her mental status gradually improved during hospitalization. She was continued on home BiPAP at night and PRN during the day, with 15L oxymask as needed. Antibiotics were continued for hospital-acquired pneumonia and UTI, pending final cultures. LASIX was increased to 40 mg daily for fluid overload. Her hypothyroidism remained well-controlled on levothyroxine, and her diabetes was managed with a sliding scale. Given known esophageal stenosis and recent refusal to eat, she was started on a Dysphagia 3 diet per speech recommendations. She is being discharged in stable condition, with close monitoring of respiratory status, fluid balance, and nutrition. Prognosis remains guarded given underlying pulmonary fibrosis and recurrent hospitalizations. Of note: Our social insurance analyst had previously spoken with the BiPAP provider who confirmed that home BiPAP machine is actively being serviced, and currently in working condition. BiPAP settings which were provided by our information director have been shared with BiPAP provider, and they stated they currently are using the current settings. However they also state that the patient continuously calling for BiPAP services, and they have came out regularly to serve as a BiPAP and it always has been in good working condition. I have advised family member to continue to follow-up with BiPAP provider as needed to ensure that BiPAP machine is working appropriately, which seems to be the case. We also advised against LORAZEPAM or MORPHINE and any other narcotics that may decrease her respiratory drive. PATIENT INSTRUCTIONS: * Follow-up with PCP within 1-2 weeks of discharge. * We've ordered labs for hypercalcemia (corrected calcium 10.4), including PTH/VITAMIN D/CMP to be completed within 1 week after discharge. Please discuss lab results with your PCP. * Return to Emergency Room if symptoms persist, worsen, or new symptoms develop. * Continue taking prednisone as prescribed and taper. * Continue using BiPAP at night daily and as needed for shortness of breath and to prevent CO2 retention. * Insulin needs to be adjusted when steroid dose is tapered down each month. * Recommended to take send homolog as per sliding scale. * Recommended to take Lasix 20 Mg instead of 40 mg every day. * Recommended to take rest of the home medications as prescribed. * Recommended salt and fluid restriction. * Please use the following BiPAP settings: IPAP 18, EPAP 8, FiO2 greater or equal to 30% PRN. * Continue taking other medications as prescribed below. ADMISSION DIAGNOSES: Acute encephalopathy (resolved) Acute hypercapnic respiratory failure Chronic respiratory failure Appropriately compensated Acute vs. Chronic Respiratory Acidosis Worsening ILD/pulmonary fibrosis Possible superimposed bilateral pneumonia UTI Hx Pseudomonas aeruginosa HFpEF EF 65% Hypothyroidism T2DM Dysphagia Esophageal stenosis s/p dilation Chronic constipation Case was discussed with attending physician and senior resident. Jeffry Eller DO PGYII Time Spent with Patient Time attestation: Total time spent providing and/or coordinating discharge services: Time spent: Greater than 30 minutes Exam Vital Signs Temp Pulse Resp BP Pulse Ox O2 Del Method O2 Flow Rate 97.4 F 99 17 108/52 L 96 Nasal Cannula 2 02/18/25 12:02/18/25 12:02/18/25 12:00 02/18/25 12:00 02/18/25 12:02/18/25 12:02/18/25 12:00 FiO2 2 02/18/25 07:41 Narrative Exam General: alert and oriented x4 HEENT: Normocephalic, atraumatic, mucous membranes moist. Heart: Regular rate and rhythm, no murmurs. Lungs: Bilateral fine inspiratory crackles are heard. Bilateral bronchial breath sounds heard Abdomen: Soft, nondistended, nontender, positive bowel sounds. ?No guarding or rebound tenderness. Neurologic: no gross neurological deficit, and patient able to move all 4 extremities. Extremities: No edema. Skin: No rash or ecchymoses. Discharge Plan Plan Patient Disposition: Xfer Other Facility Pt Being Transferred to: Other-Specify in comment Disposition Comment: [facility] Patient condition on transfer: Stable Care Plan Goals: * Follow-up with PCP within 1-2 weeks of discharge. * We've ordered labs for hypercalcemia (corrected calcium 10.4), including PTH/VITAMIN D/CMP to be completed within 1 week after discharge. Please discuss lab results with your PCP. * Return to Emergency Room if symptoms persist, worsen, or new symptoms develop. * Continue taking prednisone as prescribed and taper. * Continue using BiPAP at night daily and as needed for shortness of breath and to prevent CO2 retention. * Insulin needs to be adjusted when steroid dose is tapered down each month. * Recommended to take send homolog as per sliding scale. * Recommended to take Lasix 20 Mg instead of 40 mg every day. * Recommended to take rest of the home medications as prescribed. * Recommended salt and fluid restriction. * Follow-up with home BiPAP provider for regular maintenance. * Please use the following BiPAP settings: IPAP 18, EPAP 8, FiO2 greater or equal to 30% PRN. * Continue taking other medications as prescribed below. Prescriptions/Referrals Prescriptions/Med Rec: Continued levothyroxine 75 mcg Tablet 100 mcg PO QAM Rx Instructions: pt now taking 100 MCG methenamine hippurate 1 gram tablet 1 g PO BID Patient Comments: TAKE 1 TABLET BY MOUTH TWICE A DAY WITH 500 MG OF VITAMIN C Rx Instructions: TAKE 1 TABLET BY MOUTH TWICE A DAY WITH 500 MG OF VITAMIN C venlafaxine 150 mg capsule,extended release 24hr 150 mg PO QDAY omeprazole 40 mg Capsule,Delayed Release(Dr/Ec) 40 mg PO QDAY rosuvastatin 5 mg Tablet 5 mg PO HS aspirin 81 mg Tablet 81 mg PO QDAY ascorbic acid (vitamin C) [Vitamin C] 500 mg Tablet 500 mg PO BID metoprolol succinate 25 mg Tablet Extended Release 24 Hr 25 mg PO QDAY Qty: 30 0RF insulin glargine [Lantus U-100 Insulin] 100 unit/mL solution 20 unit SUBCUT HS prednisone 10 mg tablet See Taper PO QDAY Qty: 360 0RF Taper: Prednisone Taper 40 mg DAILY for 30 Days and 0 Hour 30 mg DAILY for 30 Days and 0 Hour 20 mg DAILY for 30 Days and 0 Hour 10 mg DAILY for 30 Days and 0 Hour 5 mg DAILY for 30 Days and 0 Hour Rx Instructions: Take 40 mg (4, 10 mg tablets) for 30 days, then Take 30 mg (3, 10 mg tablets) for 30 days, then Take 20 mg (2, 10 mg tablets) for 30 days, then Take 10 mg (1, 10 mg tablet) for 30 days, then Take 5 mg (1/2, 10 mg tablet) for 30 days insulin lispro [Humalog KwikPen Insulin] 100 unit/mL insulin pen 1 sliding scale dose subcut USEASDIRECTD Qty: 15 3RF insulin aspart U-100 [Novolog FlexPen U-100 Insulin] 100 unit/mL (3 mL) insulin pen 1 sliding scale dose subcut USEASDIRECTD Qty: 15 3RF Rx Instructions: Take insulin as per sliding scale levothyroxine 100 mcg tablet 100 mcg PO QDAY glimepiride 2 mg tablet 2 mg PO BID Azo Cranberry 250 mg tablet,chewable 500 mg PO QDAY furosemide 40 mg tablet 40 mg PO QAM Patient Comments: TAKE 1 TABLET BY MOUTH EVERY DAY IN THE MORNING hydrocodone-acetaminophen 10-325 mg tablet 1 tab PO TID PRN (Reason: pain) pramipexole 0.5 mg tablet 1 mg PO HS Patient Comments: TAKE 1 TABLET BY MOUTH EVERYDAY AT BEDTIME cranberry 500 mg capsule 1,000 mg PO QDAY Rx Instructions: administer with a meal Probiotic 20 billion cell capsule 25,000 mmu cells PO QDAY Rx Instructions: administer with a meal calcium carbonate-vitamin D3 [Calcium 600 + D(3)] 600 mg-5 mcg (200 unit) tablet 0.5 tab PO QDAY Referrals: No Primary/Family,Physician [Primary Care Provider] - Outpatient Orders (i.e. Home Health, Labs, Imaging): Comprehensive Metabolic Panel (Routine) Location: None Selected Ordered By: Jeffry Eller Parathyroid Hormone Intact (Routine) Location: None Selected Ordered By: Jeffry Eller Vitamin D 25 Hydroxy Total (Routine) Location: None Selected Ordered By: Jeffry Eller Patient/Caregiver Discharge Instructions Education Materials: Chest and Lung Problems, Preventing Common Respiratory ..., Using a BPAP Print Language: Faroese Stand Alone Forms: [employer] Award Info., Patient Portal Info Letter Discharge Order Discharge Orders: Discharge (Routine); Ordered 02/16/25 Ordered By: Jeffry Eller Quality Discharge Quality Measures VTE prophylaxis MD Attestestation MD Attestation I attest that I was physically present for the evaluation, physical examination, lab and imaging review of the patient with the residents. I discussed the case with the residents and agree with the findings and plans of care as documented above. Roosevelt Barbosa MD
[2025-02-18] MEDS: VENLAFAXINE XR 37.5 MG CAPCR 150 MG PO (20:11)
[2025-02-18] MEDS: ATORVASTATIN CALCIUM 20 MG TABLET PO (20:11)
[2025-02-18] MEDS: PRAMIPEXOLE 0.25 MG TABLET 1 MG PO (20:11)
--- NOTE | 2025-02-18 23:18 | PC.NURSE ---
Was notified by RT Perry that he was going to start the patient on biPap but patient mentioned that she was feeling nauseated. RT notified nurse, Bipap was not put on patient due to patient feeling nauseated. Will try again later.
[2025-02-19] VITALS (10 sets, daily range): BP systolic 107–124; BP diastolic 57–69; PULSE 83–105; RESP 16–26; TEMP 36.1–36.4; O2SAT 94–100
[2025-02-19] MEDS: PIPER/TAZO 3.375 GM PREMIX 3.375 GM/50 ML BAG IV ×3 (05:12→21:02)
[2025-02-19] MEDS: LEVOTHYROXINE SODIUM 100 MCG TABLET PO (05:12)
[2025-02-19 05:25] LABS: Base Excess, Venous 22 (-3-3); O2 Saturation, Venous 80 % (96-97); PCO2, Venous 46 mmHg (36-56); PO2, Venous 36 mmHg (15-58); pH, Venous 7.61 (7.33-7.66)
[2025-02-19] MEDS: POLYETHYLENE GLYCOL 17 GM PACKET PO (09:12)
[2025-02-19] MEDS: METOPROLOL SUCCINATE XL 25 MG TABCR PO (09:13)
[2025-02-19] MEDS: DOCUSATE SOD 100 MG CAPSULE 200 MG PO (09:13)
[2025-02-19] MEDS: PANTOPRAZOLE 40 MG TABLET PO (09:14)
[2025-02-19] MEDS: ASPIRIN EC 81 MG TABEC PO (09:17)
[2025-02-19] MEDS: DOXYCYCLINE 100 MG TABLET PO ×2 (09:17→20:53)
[2025-02-19 10:36] LABS: Basophils # (Auto) 0.0 Thou/mm3 (0.0-0.2); Basophils % (Auto) 0 % (0-2.5); Eosinophils # (Auto) 0.5 Thou/mm3 (0.0-0.5); Eosinophils % (Auto) 3 % (0-10); Hematocrit 37.2 % (36.0-46.0); Hemoglobin 10.9 g/dL (12.0-16.0); Immature Granulocytes Auto 0.15 Thou/mm3 (0.00-0.00); Lymphocytes # (Auto) 1.0 Thou/mm3 (1.0-4.8); Lymphocytes % (Auto) 6 % (10-50); Mean Corpuscular HGB Conc 29.3 g/dl (31.0-37.0); Mean Corpuscular Hemoglobin 27.9 pg (25.0-35.0); Mean Corpuscular Volume 95 fL (80-100); Monocytes # (Auto) 1.1 Thou/mm3 (0.0-0.8); Monocytes % (Auto) 7 % (0-12); Neutrophils # (Auto) 13.4 Thou/mm3 (1.8-7.7); Neutrophils % (Auto) 83 % (37-80); Nucleated Red Blood Cell # 0.00 Thou/mm3 (0.00-0.00); Nucleated Red Blood Cell % 0 /100 WBC (0); Platelet Count 254 Thou/mm3 (140-440); RDW Standard Deviation 56.5 fL (36.4-46.3); Red Blood Count 3.91 Miln/mm3 (4.00-5.20); White Blood Count 16.1 Thou/mm3 (3.6-11.0)
[2025-02-19 10:49] LABS: Alanine Aminotransferase 25 U/L (10-49); Albumin, Serum 3.6 gm/dL (3.4-4.8); Albumin/Globulin Ratio 1.5 (1.2-2.2); Alkaline Phosphatase 53 U/L (46-116); Anion Gap 14 (7-16); Aspartate Amino Transferase 16 U/L (0-34); BUN/Creatinine Ratio 25 Ratio (12-20); Bilirubin,Total 0.6 mg/dL (0.3-1.2); Blood Urea Nitrogen 28 mg/dL (9-23); Calcium 9.8 mg/dL (8.3-10.6); Calcium (Corrected) 10.1 mg/dL (8.5-10.1); Carbon Dioxide > 40.0 mMol/L (20.0-31.0); Chloride 86 mMol/L (98-107); Creatinine (Component) 1.1 mg/dL (0.6-1.3); Estimated Creatinine Clearance 36.0 mL/min (>60); Globulin 2.4 gm/dL (2.3-3.5); Glucose 249 mg/dL (74-106); Osmolality,Calculated 292 (275-295); Potassium 4.0 mMol/L (3.4-5.1); Sodium 140 mMol/L (136-145); Total Protein 6.0 gm/dL (5.7-8.2); eGFR 48 See Note
[2025-02-19] MEDS: INSULIN LISPRO (AdmeLOG) 1 UNIT/0.01 ML UNIT SC ×3 (11:20→20:53)
--- NOTE | 2025-02-19 16:05 | PC.SS ---
SS spoke with terrance Gregorio, , who stated that email was submitted to [employer] for 2nd appeal 02/18/2025; SS confirmed information has not been received; Jg will call to submit another appeal and call back with information
--- NOTE | 2025-02-19 16:23 | PC.SS ---
Second appeal is currently in progress. Appeal status is reflecting 2nd level review in progress with [employer].
--- NOTE | 2025-02-19 20:46 | ESDS_ITS ---
Planned Discharge Date 02/19/25 DS: Providers Provider Date of admission: 02/14/25 17:18 Primary care physician: Physician No Primary/Family Admitting Provider: Phuc Yo MD Attending Provider on Admission: Roosevelt Barbosa MD Consults: 02/15/25 06:17 Referral Wound Care Routine Comment: coccyx wound 02/15/25 16:08 Referral Hospice Routine Comment: 02/17/25 15:29 Referral Nutritional Services Routine Comment: Wounds Attending Provider on DC: Jono Rae MD Discharging Provider: Jono Rae MD DS: Diagnosis Problem List Completed Was Problem List Reviewed/Reconciled?: Yes Hospital Course Hospital Course Hospital course: An 89-year-old female with a history of ILD/pulmonary fibrosis, 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 She was found to be lethargic at home and admitted for acute on chronic hypoxic and hypercapnic respiratory failure, likely secondary to progression of her underlying ILD and possible superimposed pneumonia. Additional contributing factors included recent administration of morphine and Ativan by hospice, BiPAP mask air leaks, and possible UTI. Imaging revealed bilateral pneumonia and p ulmonary vascular congestion; labs showed leukocytosis with left shift. She improved with BiPAP support, IV antibiotics (Zosyn and Vancomycin), methylprednisolone, and supportive care. Her mental status gradually improved during hospitalization. She was continued on home BiPAP at night and PRN during the day, with 15L oxymask as needed. Antibiotics were continued for hospital-acquired pneumonia a nd UTI, pending final cultures. LASIX was increased to 40 mg daily for fluid overload. Her hypothyroidism remained well-controlled on levothyroxine, and her diabetes was managed with a sliding scale. Given known esophageal stenosis and recent refusal to eat, she was started on a Dysphagia 3 diet per speech recommendations. She is being discharged in stable condition, with close monitoring of respiratory status, fluid balance, and nutrition. Prognosis remains guarded given underlying pulmonary fibrosis and recurrent hospitalizations. Of note: Our social work therapist had previously spoken with the BiPAP provider who confirmed that home BiPAP machine is actively being serviced, and currently in working condition. BiPAP settings which were provided by our warehouse manager have been shared with BiPAP provider, and they stated they currently are using the current settings. However they also state that the patient continuously calling for BiPAP services, and they have came out regularly to serve as a BiPAP and it always has been in good working condition. I have advised family member to continue to follow-up with BiPAP provider as needed to ensure that BiPAP machine is working appropriately, which seems to be the case. We also advised against LORAZEPAM or MORPHINE and any other narcotics that may decrease her respiratory drive. PATIENT INSTRUCTIONS: * Follow-up with PCP within 1-2 weeks of discharge. * We've ordered labs for hypercalcemia (corrected calcium 10.4), including PTH/VITAMIN D/CMP to be completed within 1 week after discharge. Please discuss lab results with your PCP. * Return to Emergency Room if symptoms persist, worsen, or new symptoms develop. * Continue taking prednisone as prescribed and taper. * Continue using BiPAP at night daily and as needed for shortness of breath and to prevent CO2 retention. * Insulin needs to be adjusted when steroid dose is tapered down each month. * Recommended to take send homolog as per sliding scale. * Recommended to take Lasix 20 Mg instead of 40 mg every day. * Recommended to take rest of the home medications as prescribed. * Recommended salt and fluid restriction. * Please use the following BiPAP settings: IPAP 18, EPAP 8, FiO2 greater or equal to 30% PRN. * Continue taking other medications as prescribed below. ADMISSION DIAGNOSES: Acute encephalopathy (resolved) Acute hypercapnic respiratory failure Chronic respiratory failure Appropriately compensated Acute vs. Chronic Respiratory Acidosis Worsening ILD/pulmonary fibrosis Possible superimposed bilateral pneumonia UTI Hx Pseudomonas aeruginosa HFpEF EF 65% Hypothyroidism T2DM Dysphagia Esophageal stenosis s/p dilation Chronic constipation Case was discussed with attending physician and senior resident. Liborio Aguila DO PGYII Time Spent with Patient Time attestation: Total time spent providing and/or coordinating discharge services: Time spent: Greater than 30 minutes Exam Vital Signs Temp Pulse Resp BP Pulse Ox O2 Del Method O2 Flow Rate 97.3 F 98 24 H 122/63 98 Nasal Cannula 4 02/19/25 20:00 02/19/25 20:00 02/19/25 20:00 02/19/25 20:00 02/19/25 20:00 02/19/25 20:00 02/19/25 20:00 FiO2 4 02/19/25 08:53 Narrative Exam General: alert and oriented x4 HEENT: Normocephalic, atraumatic, mucous membranes moist. Heart: Regular rate and rhythm, no murmurs. Lungs: Bilateral fine inspiratory crackles are heard. Bilateral bronchial breath sounds heard Abdomen: Soft, nondistended, nontender, positive bowel sounds. ?No guarding or rebound tenderness. Neurologic: no gross neurological deficit, and patient able to move all 4 extremities. Extremities: No edema. Skin: No rash or ecchymoses. Discharge Plan Plan Patient Disposition: Xfer Other Facility Pt Being Transferred to: Other-Specify in comment Disposition Comment: [facility] Patient condition on transfer: Stable Care Plan Goals: * Follow-up with PCP within 1-2 weeks of discharge. * We've ordered labs for hypercalcemia (corrected calcium 10.4), including PTH/VITAMIN D/CMP to be completed within 1 week after discharge. Please discuss lab results with your PCP. * Return to Emergency Room if symptoms persist, worsen, or new symptoms develop. * Continue taking prednisone as prescribed and taper. * Continue using BiPAP at night daily and as needed for shortness of breath and to prevent CO2 retention. * Insulin needs to be adjusted when steroid dose is tapered down each month. * Recommended to take send homolog as per sliding scale. * Recommended to take Lasix 20 Mg instead of 40 mg every day. * Recommended to take rest of the home medications as prescribed. * Recommended salt and fluid restriction. * Follow-up with home BiPAP provider for regular maintenance. * Please use the following BiPAP settings: IPAP 18, EPAP 8, FiO2 greater or equal to 30% PRN. * Continue taking other medications as prescribed below. Prescriptions/Referrals Prescriptions/Med Rec: Continued levothyroxine 75 mcg Tablet 100 mcg PO QAM Rx Instructions: pt now taking 100 MCG methenamine hippurate 1 gram tablet 1 g PO BID Patient Comments: TAKE 1 TABLET BY MOUTH TWICE A DAY WITH 500 MG OF VITAMIN C Rx Instructions: TAKE 1 TABLET BY MOUTH TWICE A DAY WITH 500 MG OF VITAMIN C venlafaxine 150 mg capsule,extended release 24hr 150 mg PO QDAY omeprazole 40 mg Capsule,Delayed Release(Dr/Ec) 40 mg PO QDAY rosuvastatin 5 mg Tablet 5 mg PO HS aspirin 81 mg Tablet 81 mg PO QDAY ascorbic acid (vitamin C) [Vitamin C] 500 mg Tablet 500 mg PO BID metoprolol succinate 25 mg Tablet Extended Release 24 Hr 25 mg PO QDAY Qty: 30 0RF insulin glargine [Lantus U-100 Insulin] 100 unit/mL solution 20 unit SUBCUT HS prednisone 10 mg tablet See Taper PO QDAY Qty: 360 0RF Taper: Prednisone Taper 40 mg DAILY for 30 Days and 0 Hour 30 mg DAILY for 30 Days and 0 Hour 20 mg DAILY for 30 Days and 0 Hour 10 mg DAILY for 30 Days and 0 Hour 5 mg DAILY for 30 Days and 0 Hour Rx Instructions: Take 40 mg (4, 10 mg tablets) for 30 days, then Take 30 mg (3, 10 mg tablets) for 30 days, then Take 20 mg (2, 10 mg tablets) for 30 days, then Take 10 mg (1, 10 mg tablet) for 30 days, then Take 5 mg (1/2, 10 mg tablet) for 30 days insulin lispro [Humalog KwikPen Insulin] 100 unit/mL insulin pen 1 sliding scale dose subcut USEASDIRECTD Qty: 15 3RF insulin aspart U-100 [Novolog FlexPen U-100 Insulin] 100 unit/mL (3 mL) insulin pen 1 sliding scale dose subcut USEASDIRECTD Qty: 15 3RF Rx Instructions: Take insulin as per sliding scale levothyroxine 100 mcg tablet 100 mcg PO QDAY glimepiride 2 mg tablet 2 mg PO BID Azo Cranberry 250 mg tablet,chewable 500 mg PO QDAY furosemide 40 mg tablet 40 mg PO QAM Patient Comments: TAKE 1 TABLET BY MOUTH EVERY DAY IN THE MORNING hydrocodone-acetaminophen 10-325 mg tablet 1 tab PO TID PRN (Reason: pain) pramipexole 0.5 mg tablet 1 mg PO HS Patient Comments: TAKE 1 TABLET BY MOUTH EVERYDAY AT BEDTIME cranberry 500 mg capsule 1,000 mg PO QDAY Rx Instructions: administer with a meal Probiotic 20 billion cell capsule 25,000 mmu cells PO QDAY Rx Instructions: administer with a meal calcium carbonate-vitamin D3 [Calcium 600 + D(3)] 600 mg-5 mcg (200 unit) tablet 0.5 tab PO QDAY Referrals: No Primary/Family,Physician [Primary Care Provider] - Outpatient Orders (i.e. Home Health, Labs, Imaging): Comprehensive Metabolic Panel (Routine) Location: None Selected Ordered By: Jeffry Eller Parathyroid Hormone Intact (Routine) Location: None Selected Ordered By: Jeffry Eller Vitamin D 25 Hydroxy Total (Routine) Location: None Selected Ordered By: Jeffry Eller Patient/Caregiver Discharge Instructions Education Materials: Chest and Lung Problems, Preventing Common Respiratory ..., Using a BPAP Print Language: Romansh Stand Alone Forms: [employer] Award Info., Patient Portal Info Letter Discharge Order Discharge Orders: Discharge (Routine); Ordered 02/16/25 Ordered By: Jeffry Eller Quality Discharge Quality Measures VTE prophylaxis Attestestation Attestation Patient was seen and examined with housestaff. She has interstitial lung disease, chronic respiratory failure with hypoxia and hypercarbia. She usess BIPAP. She is arosusable. No wheezing. Patient was not discharged on February 19, 2025, will continue current treatment. Discussed with housestaff.
[2025-02-19] MEDS: PRAMIPEXOLE 0.25 MG TABLET 1 MG PO (20:53)
[2025-02-19] MEDS: VENLAFAXINE XR 37.5 MG CAPCR 150 MG PO (20:53)
[2025-02-19] MEDS: ATORVASTATIN CALCIUM 20 MG TABLET PO (20:53)
[2025-02-20] VITALS (16 sets, daily range): BP systolic 109–186; BP diastolic 54–110; PULSE 87–99; RESP 22–29; TEMP 36.1–37; O2SAT 95–99; BMI 35.9
[2025-02-20] MEDS: PIPER/TAZO 3.375 GM PREMIX 3.375 GM/50 ML BAG IV ×3 (05:11→22:05)
[2025-02-20] MEDS: LEVOTHYROXINE SODIUM 100 MCG TABLET PO (05:12)
[2025-02-20 05:48] LABS: Basophils # (Auto) 0.0 Thou/mm3 (0.0-0.2); Basophils % (Auto) 0 % (0-2.5); Eosinophils # (Auto) 0.4 Thou/mm3 (0.0-0.5); Eosinophils % (Auto) 3 % (0-10); Hematocrit 36.2 % (36.0-46.0); Hemoglobin 10.4 g/dL (12.0-16.0); Immature Granulocytes Auto 0.10 Thou/mm3 (0.00-0.00); Lymphocytes # (Auto) 1.3 Thou/mm3 (1.0-4.8); Lymphocytes % (Auto) 10 % (10-50); Mean Corpuscular HGB Conc 28.7 g/dl (31.0-37.0); Mean Corpuscular Hemoglobin 28.2 pg (25.0-35.0); Mean Corpuscular Volume 98 fL (80-100); Monocytes # (Auto) 0.9 Thou/mm3 (0.0-0.8); Monocytes % (Auto) 7 % (0-12); Neutrophils # (Auto) 10.0 Thou/mm3 (1.8-7.7); Neutrophils % (Auto) 78 % (37-80); Nucleated Red Blood Cell # 0.00 Thou/mm3 (0.00-0.00); Nucleated Red Blood Cell % 0 /100 WBC (0); Platelet Count 209 Thou/mm3 (140-440); RDW Standard Deviation 56.7 fL (36.4-46.3); Red Blood Count 3.69 Miln/mm3 (4.00-5.20); White Blood Count 12.8 Thou/mm3 (3.6-11.0)
[2025-02-20 06:41] LABS: Alanine Aminotransferase 26 U/L (10-49); Albumin, Serum 3.4 gm/dL (3.4-4.8); Albumin/Globulin Ratio 1.5 (1.2-2.2); Alkaline Phosphatase 48 U/L (46-116); Anion Gap 13 (7-16); Aspartate Amino Transferase 17 U/L (0-34); BUN/Creatinine Ratio 24 Ratio (12-20); Bilirubin,Total 0.6 mg/dL (0.3-1.2); Blood Urea Nitrogen 26 mg/dL (9-23); Calcium 9.9 mg/dL (8.3-10.6); Calcium (Corrected) 10.4 mg/dL (8.5-10.1); Carbon Dioxide > 40.0 mMol/L (20.0-31.0); Chloride 87 mMol/L (98-107); Creatinine (Component) 1.1 mg/dL (0.6-1.3); Estimated Creatinine Clearance 36.0 mL/min (>60); Globulin 2.2 gm/dL (2.3-3.5); Glucose 160 mg/dL (74-106); Magnesium 1.9 mg/dL (1.6-2.6); Osmolality,Calculated 287 (275-295); Phosphorous 2.5 mg/dL (2.4-5.1); Potassium 4.2 mMol/L (3.4-5.1); Sodium 140 mMol/L (136-145); Total Protein 5.6 gm/dL (5.7-8.2); eGFR 48 See Note
[2025-02-20] MEDS: INSULIN LISPRO (AdmeLOG) 1 UNIT/0.01 ML UNIT SC ×4 (07:37→21:56)
--- NOTE | 2025-02-20 08:06 | PD.RESEVENT ---
Documentation for date of: 02/20/25 Event Note Event Note: Earlier this morning, around 8 AM, RR was called as patient was complaining of noncardiogenic chest pain. On arrival, she was alert and oriented x 4, in no apparent distress, vitals were within normal limits. She had reproducible epigastric and left shoulder pain on exam. She had similar incident 2 days ago which resolved with MAALOX. EKG showed no acute ST changes. Troponin was negative. MAALOX was given x 1, PRN order was scheduled. LIDOCAINE patch given for left shoulder pain. Case was discussed with attending physician. Jeffry Eller, PGY II This document was transcribed using voice recognition technology. Minor inaccuracies may be present.
[2025-02-20] MEDS: MG HYD/AL HYD/SIME (Maalox Reg) SUSP 30 ML UDC PO (08:12)
[2025-02-20] MEDS: LIDOCAINE 5% 1 PATCH TOP (08:27)
[2025-02-20] MEDS: DOCUSATE SOD 100 MG CAPSULE 200 MG PO (08:28)
[2025-02-20] MEDS: METOPROLOL SUCCINATE XL 25 MG TABCR PO (08:28)
[2025-02-20] MEDS: DOXYCYCLINE 100 MG TABLET PO ×2 (08:30→21:54)
[2025-02-20] MEDS: ASPIRIN EC 81 MG TABEC PO (08:30)
[2025-02-20] MEDS: PANTOPRAZOLE 40 MG TABLET PO (08:30)
[2025-02-20 09:00] LABS: Troponin I < 0.020 ng/mL (0.0-0.045)
--- NOTE | 2025-02-20 09:13 | EKG_ITS ---
[facility] Test Date: 2025-02-20 Pat Name: SHAN SLAUGHTER [facility] Gender[facility] Community Resource Consultant: KRYSTLE : 1935 Requested By: Jeffry Eller Order Number: [id number] Reading MD: Jeffry Eller Measurements Intervals [place] Rate: 88 P: 12 MN: 133 QRS: 32 QRSD: 142 T: -15 QT: 390 QTc: 473 Interpretive Statements SINUS RHYTHM WITH OCCASIONAL SUPRAVENTRICULAR PREMATURE COMPLEXES INTRAVENTRICULAR CONDUCTION DELAY Compared to ECG 02/17/2025 14:08:07 Intraventricular conduction delay now present Right bundle-branch block no longer present /store/S0/[id number]
--- NOTE | 2025-02-20 15:04 | ESPR_ITS ---
Documentation for date of: 02/20/25 Subjective Subjective Interval history: No acute overnight events. Earlier this morning she had a rapid response for noncardiogenic chest pain, likely epigastric pain which is recurrent, improved with MAALOX which was given today (refer to event note for detail). Otherwise denies new or worsening symptoms. Denies fever, chills, headaches, sob, cough, GI or urinary symptoms. Continued on BiPAP HS and intermittently throughout today PRN. Our field sales executive, at bedside, recommended a trial of ACETAZOLAMIDE given that. CO2 consistently greater than 40, with the goal below 40, and we'll trend over the next few days. We also decrease LASIX to 20 mg daily as there are no signs of fluid overload. Exam Vital Signs Temp Pulse Resp BP Pulse Ox O2 Del Method O2 Flow Rate 97.5 F 93 25 H 120/70 97 BiPAP 4 02/20/25 11:51 02/20/25 12:00 02/20/25 11:51 02/20/25 11:51 02/20/25 11:51 02/20/25 08:00 02/19/25 20:00 FiO2 30 02/20/25 07:06 Narrative Exam General: alert and oriented x4 HEENT: Normocephalic, atraumatic, mucous membranes moist. Heart: Regular rate and rhythm, no murmurs. Lungs: Bilateral fine inspiratory crackles are heard. Bilateral bronchial breath sounds heard Abdomen: Soft, nondistended, nontender, positive bowel sounds. ?No guarding or rebound tenderness. Neurologic: no gross neurological deficit, and patient able to move all 4 extremities. Extremities: No edema. Skin: No rash or ecchymoses. Objective Labs 02/20/25 04:59 02/20/25 04:59 Labs: Laboratory Results - last 24 hr 02/20/25 02/20/25 04:59 08:15 WBC 12.8 H RBC 3.69 L Hgb 10.4 L Hct 36.2 MCV 98 MCH 28.2 MCHC 28.7 L RDW Std Deviation 56.7 H Plt Count 209 D Neut % (Auto) 78 Lymph % (Auto) 10 [place] % (Auto) 7 Eos % (Auto) 3 Baso % (Auto) 0 Neut # (Auto) 10.0 H Lymph # (Auto) 1.3 [place] # (Auto) 0.9 H Eos # (Auto) 0.4 Baso # (Auto) 0.0 Immature Gran # (Auto) 0.10 H Absolute Nucleated RBC 0.00 Immature Gran % 1 H Nucleated RBC % 0 Sodium 140 Potassium 4.2 Chloride 87 L Carbon Dioxide > 40.0 H Anion Gap 13 BUN 26 H Creatinine 1.1 Estim Creat Clear Calc 36.0 L eGFR 48 L BUN/Creatinine Ratio 24 H Glucose 160 H D Calculated Osmolality 287 Calcium 9.9 Corrected Calcium 10.4 H Phosphorus 2.5 Magnesium 1.9 Total Bilirubin 0.6 AST 17 ALT 26 Alkaline Phosphatase 48 Troponin I < 0.020 Total Protein 5.6 L Albumin 3.4 Globulin 2.2 L Albumin/Globulin Ratio 1.5 ABG Interpretation ABG results: 02/14/25 02/14/25 02/15/25 12:28 14:09 05:00 ABG pH 7.24 L 7.27 L ABG pCO2 88 H* 75 H* D ABG pO2 87 107 D ABG HCO3 38 H 34 H ABG O2 Saturation 95 97 ABG Base Excess 8 H 6 H VBG pH 7.41 VBG pCO2 65 H VBG pO2 33 VBG Base Excess 14 H 02/17/25 02/19/25 11:36 05:19 ABG pH ABG pCO2 ABG pO2 ABG HCO3 ABG O2 Saturation ABG Base Excess VBG pH 7.40 7.61 VBG pCO2 74 H 46 D VBG pO2 42 36 VBG Base Excess 18 H 22 H Quality Measures Quality Measures VTE prophylaxis Advance care planning discussed with:: patient Assessment & Plan Assessment Current Active Medications: Generic Name Dose Route Start Last Admin Trade Name Freq PRN Reason Stop Dose Admin Acetaminophen 650 mg 02/14/25 17:18 Acetaminophen 325 Mg Tablet PO 03/16/25 17:17 Q6H PRN Fever >100.4 Hydrocodone Bitart/Acetaminophen 1 tab 02/15/25 16:08 02/17/25 20:48 Hydrocodone/Apap 10/325 Tab PO 02/20/25 16:07 1 tab TID PRN Administration pain Acetazolamide 125 mg 02/20/25 21:00 Acetazolamide 250 Mg Tablet PO 02/21/25 21:01 BID LISETTE Al Hydrox/Mg Hydrox/Simethicone 30 ml 02/20/25 08:05 Mg Hyd/Al Hyd/Julianne (Maalox Reg) Susp 30 Ml Udc PO 03/22/25 08:04 Q4HR PRN UPSET STOMACH/INDIGESTION Albuterol/Ipratropium 3 ml 02/14/25 18:34 02/17/25 01:51 Albuterol/Ipratropium (Duoneb) Rt Sravani 3 Ml Nebu INH 03/16/25 18:33 3 ml Q6HRRT PRN Administration Wheezing Aspirin 81 mg 02/14/25 17:30 02/20/25 08:30 Aspirin Ec 81 Mg Tabec PO 03/16/25 17:29 81 mg QDAY LISETTE Administration Atorvastatin Calcium 20 mg 02/14/25 21:00 02/19/25 20:53 Atorvastatin Calcium 20 Mg Tablet PO 03/16/25 20:59 20 mg HS LISETTE Administration Dextrose 25 ml 02/14/25 17:23 Dextrose 50%-Water Inj 50 Ml Syringe IV 03/16/25 17:22 Q15MIN PRN BG 50-70 responsive npo pt Dextrose 50 ml 02/14/25 17:23 Dextrose 50%-Water Inj 50 Ml Syringe IV 03/16/25 17:22 Q15MIN PRN BG <50 OR BG <70 & pt unresponsive Docusate Sodium 200 mg 02/15/25 09:00 02/20/25 08:28 Docusate Sod 100 Mg Capsule PO 03/17/25 08:59 200 mg QDAY LISETTE Administration Protocol Doxycycline Hyclate 100 mg 02/16/25 09:00 02/20/25 08:30 Doxycycline 100 Mg Tablet PO 02/23/25 08:59 100 mg BID LISETTE Administration Furosemide 20 mg 02/21/25 09:00 Furosemide 40 Mg Tablet PO 03/23/25 08:59 QAM LISETTE Glucagon 1 mg 02/14/25 17:23 Glucagon Inj 1 Mg Vial IM Q15MIN PRN BG <70, and no IV access Piperacillin/Tazobactam/Dextrose 3.375 gm in 50 mls @ 12.5 mls/hr 02/14/25 22:00 02/20/25 13:32 Zosyn IV 02/21/25 21:59 12.5 mls/hr Q8HR LISETTE Administration Insulin Human Lispro 0 unit 02/17/25 19:48 02/20/25 11:40 Insulin Lispro (Admelog) 1 Unit/0.01 Ml Unit SC 03/17/25 11:29 4 unit ACHS LISETTE Administration Protocol Levothyroxine Sodium 100 mcg 02/15/25 06:00 02/20/25 05:12 Levothyroxine Sodium 100 Mcg Tablet PO 03/17/25 05:59 100 mcg ACBR LISETTE Administration Lidocaine 1 patch 02/20/25 08:06 02/20/25 08:27 Lidocaine 5% 1 Patch TOP 03/22/25 08:05 1 patch UD PRN Administration Pain left shoulder Protocol Methylprednisolone Sodium Succinate 40 mg 02/14/25 18:45 02/20/25 08:28 Methylprednisolone Sod Succ 40 Mg Vial IVP 02/21/25 18:44 40 mg QDAY LISETTE Administration Metoprolol Succinate 25 mg 02/15/25 09:00 02/20/25 08:28 Metoprolol Succinate Xl 25 Mg Tabcr PO 03/17/25 08:59 25 mg QDAY LISETTE Administration Ondansetron HCl 4 mg 02/14/25 17:18 02/17/25 20:49 Ondansetron Inj 2 Mg/Ml Inj 2 Ml IVP 03/16/25 17:17 4 mg Q6H PRN Administration NAUSEA OR VOMITING Protocol Pantoprazole Sodium 40 mg 02/18/25 09:00 02/20/25 08:30 Pantoprazole 40 Mg Tablet PO 03/16/25 17:29 40 mg QDAY LISETTE Administration Polyethylene Glycol 17 gm 02/15/25 09:00 02/20/25 08:30 Polyethylene Glycol 17 Gm Packet PO 03/17/25 08:59 Not Given QDAY LISETTE Pramipexole Dihydrochloride 1 mg 02/14/25 21:00 02/19/25 20:53 Pramipexole 0.25 Mg Tablet PO 03/16/25 20:59 1 mg HS LISETTE Administration Venlafaxine HCl 150 mg 02/14/25 21:00 02/19/25 20:53 Venlafaxine Xr 37.5 Mg Capcr PO 03/16/25 20:59 150 mg HS LISETTE Administration Plan This is an 89-year-old female with PMHx of ILD/pulmonary fibrosis, chronic respiratory failure on 2 L home oxygen and BiPAP, HFpEF, bedbound, recurrent UTI, hypothyroidism, right breast cancer s/p lumpectomy, T2DM, GERD, depression, chronic back pain, known to us for recurrent admission for hypercapnic respiratory failure, presenting to the ED with acute altered mental status in setting of acute on chronic hypercapnic respiratory failure. Acute hypercapnic respiratory failure Chronic respiratory failure Appropriately compensated Acute vs. Chronic Respiratory Acidosis Worsening ILD/pulmonary fibrosis Possible superimposed bilateral pneumonia She has chronic ILD/pulmonary fibrosis leading to chronic respiratory failure, chronic CO2 retention, requiring daily BiPAP and home oxygen. She has recurrent admission AMS 2/2 hypercapnic respiratory failure as a result. Prognosis remains poor, likely will continue to worsen with time. Recently was discharged on prolonged STEROID taper which she is currently taking. CXR showing superimposed subsegmental pneumonia. She has leukocytosis which possibly reactive but there is also a left shift present. CT chest showed PAH, likely 2/2 ILD. However echo from last month did not show any right pressure elevations. CT also showed mild to moderate HF and confirmed superimposed bilateral pneumonia. On exam there was coarse breath sounds bilaterally. Given underlying lung disease, recent hospital admission, will start broad- spectrum ANTIBIOTICS for HCAP, narrow ANTIBIOTICS based on cultures. Admission ABG showing pH 7.24, pCO2 88 > 75 with BIPAP, bicarb 34. Improving with BiPAP HS and intermittently, although CO2 remains elevated. Completed a full course of ANTIBIOTICS. Afebrile. Mild leukocytosis 2/2 STEROIDS. We well start a trial of ACETAZOLAMIDE given CO2 always elevated, titrate dose for goal of CO2 less than 40 (ideally 35), LASIX dose decreased to 20 mg daily.. ? DuoNebs q.6h. PRN ? Continue BiPAP HS and PRN. ? Continue METHYLPREDNISOLONE 40 mg QDAY (02/14 to 03/13), continue taper thereafter. ? Continue LASIX 20 mg daily ? Continue ACETAZOLAMIDE 125 mg BID, uptitrate for ideal CO2 level of 35. HFpEF EF 65% Echocardiogram from 12/2024 showed EF 65%, trace mitral and tricuspid regurg, no wall motion abnormalities. However, she has chronic fluid retention for which she takes LASIX 20 mg daily. CXR showing vascular congestion and mild bilateral ankle blunting. Renal function within normal limits ? Continue LASIX 20 mg daily ? Strict NARINDER's ? Monitor renal function Hypothyroidism TSH WNL. ? Continue home LEVOTHYROXINE 100 mcg daily T2DM Reportedly, she was refusing oral feeds over the last few days, home GLUCOSE was 75 this morning with baseline around 160. Admission GLUCOSE 135. A1c 7.9 from 01/26/2025. ? INSULIN sliding scale ? Accu-Cheks Dysphagia Esophageal stenosis s/p dilation Chronic constipation On last admission, she had EGD with dilation for dysphagia secondary to esophageal stenosis. Reportedly, she was tolerating oral intake at home. However was refusing food this morning. Speech recommended Dysphagia 3 diet. Acute encephalopathy (resolved) Likely in settings of acute hypercapnic respiratory failure, possible UTI (although she has chronic UTI), or iatrogenic. Mentation appears to have worsened over the last few days, more acutely this morning. She was given MORPHINE and ATIVAN by hospice due to agitation, likely worsening her mental status. Additionally, there was reported BiPAP failure, frequent air leaks, and recurrent hypoxemic episodes. Head CT was negative for acute pathology. ? Treating underlying cause ? Avoid narcotics UTI Hx Pseudomonas aeruginosa UA again showing UTI, and she has chronic UTIs on previous admissions. Previous culture grew Pseudomonas aeruginosa's, sensitive to ZOSYN. Completed a course of ANTIBIOTICS. Currently asymptomatic ? Continue to monitor Health maintenance Diet: Dysphagia 3, CHO consistent GI prophylaxis: PROTONIX DVT prophylaxis: HEPARIN SUBQ Antibiotics: ZOSYN, VANCOMYCIN CODE STATUS: FULL CODE Disposition: Treating [facility] Case was discussed with attending physician and senior resident. Jeffry Eller DO PGY II This document was transcribed using voice recognition technology. Minor inaccuracies may be present. Attending Provider Attestation/Addendum Patient seen and examined. Patient's caregiver at bedside she has concerned about BiPAP set up at home (with delta P). She thinks the weight set up at the hospital is different from what she gets at home. The patient gets drowsy from time to time after several days on BiPAP. Her CO2 is greater than 40 for the past 3 days. Will give her acetazolamide today. Discussed with housestaff.
--- NOTE | 2025-02-20 15:34 | PC.SS ---
SS spoke with Jg, Nephew, provided update and asked Jg to call and retract appeal; Jg stated he would call right away ROUNDING NOTE: consult by Dr. Nair who recommends pt to stay for 1-2 days SS reviewed Kylah; pt case still showing under review
[2025-02-20 16:31] LABS: Albumin, Serum 3.4 gm/dL (3.4-4.8); Anion Gap 10 (7-16); BUN/Creatinine Ratio 17 Ratio (12-20); Blood Urea Nitrogen 29 mg/dL (9-23); Calcium 9.4 mg/dL (8.3-10.6); Calcium (Corrected) 9.9 mg/dL (8.5-10.1); Carbon Dioxide > 40.0 mMol/L (20.0-31.0); Chloride 85 mMol/L (98-107); Creatinine (Component) 1.7 mg/dL (0.6-1.3); Estimated Creatinine Clearance 23.2 mL/min (>60); Osmolality,Calculated 294 (275-295); Phosphorous 2.8 mg/dL (2.4-5.1); Potassium 4.7 mMol/L (3.4-5.1); Sodium 135 mMol/L (136-145); eGFR 29 See Note
[2025-02-20 16:42] LABS: Glucose 443 mg/dL (74-106)
[2025-02-20] MEDS: ATORVASTATIN CALCIUM 20 MG TABLET PO (21:55)
[2025-02-20] MEDS: PRAMIPEXOLE 0.25 MG TABLET 1 MG PO (21:55)
[2025-02-20] MEDS: VENLAFAXINE XR 37.5 MG CAPCR 150 MG PO (21:56)
[2025-02-20] MEDS: ALBUTEROL/IPRATROPIUM (Duoneb) RT SOL 3 ML NEBU INH (22:41)
[2025-02-21] VITALS (10 sets, daily range): BP systolic 87–132; BP diastolic 52–97; PULSE 26–99; RESP 18–25; TEMP 36.1–36.5; O2SAT 96–98
[2025-02-21] MEDS: PIPER/TAZO 3.375 GM PREMIX 3.375 GM/50 ML BAG IV ×2 (05:58→13:32)
[2025-02-21] MEDS: LEVOTHYROXINE SODIUM 100 MCG TABLET PO (05:58)
[2025-02-21 06:21] LABS: Basophils # (Auto) 0.0 Thou/mm3 (0.0-0.2); Basophils % (Auto) 0 % (0-2.5); Eosinophils # (Auto) 0.4 Thou/mm3 (0.0-0.5); Eosinophils % (Auto) 3 % (0-10); Hematocrit 36.4 % (36.0-46.0); Hemoglobin 10.6 g/dL (12.0-16.0); Immature Granulocytes Auto 0.10 Thou/mm3 (0.00-0.00); Lymphocytes # (Auto) 1.2 Thou/mm3 (1.0-4.8); Lymphocytes % (Auto) 10 % (10-50); Mean Corpuscular HGB Conc 29.1 g/dl (31.0-37.0); Mean Corpuscular Hemoglobin 28.2 pg (25.0-35.0); Mean Corpuscular Volume 97 fL (80-100); Monocytes # (Auto) 0.9 Thou/mm3 (0.0-0.8); Monocytes % (Auto) 8 % (0-12); Neutrophils # (Auto) 9.2 Thou/mm3 (1.8-7.7); Neutrophils % (Auto) 78 % (37-80); Nucleated Red Blood Cell # 0.00 Thou/mm3 (0.00-0.00); Nucleated Red Blood Cell % 0 /100 WBC (0); Platelet Count 224 Thou/mm3 (140-440); RDW Standard Deviation 56.8 fL (36.4-46.3); Red Blood Count 3.76 Miln/mm3 (4.00-5.20); White Blood Count 11.8 Thou/mm3 (3.6-11.0)
[2025-02-21 07:07] LABS: Alanine Aminotransferase 26 U/L (10-49); Albumin, Serum 3.4 gm/dL (3.4-4.8); Albumin/Globulin Ratio 1.5 (1.2-2.2); Alkaline Phosphatase 55 U/L (46-116); Anion Gap 9 (7-16); Aspartate Amino Transferase 17 U/L (0-34); BUN/Creatinine Ratio 23 Ratio (12-20); Bilirubin,Total 0.7 mg/dL (0.3-1.2); Blood Urea Nitrogen 28 mg/dL (9-23); Calcium 10.2 mg/dL (8.3-10.6); Calcium (Corrected) 10.7 mg/dL (8.5-10.1); Carbon Dioxide > 40.0 mMol/L (20.0-31.0); Chloride 90 mMol/L (98-107); Creatinine (Component) 1.2 mg/dL (0.6-1.3); Estimated Creatinine Clearance 32.8 mL/min (>60); Globulin 2.3 gm/dL (2.3-3.5); Glucose 181 mg/dL (74-106); Magnesium 2.1 mg/dL (1.6-2.6); Osmolality,Calculated 288 (275-295); Phosphorous 3.0 mg/dL (2.4-5.1); Potassium 3.7 mMol/L (3.4-5.1); Sodium 139 mMol/L (136-145); Total Protein 5.7 gm/dL (5.7-8.2); eGFR 44 See Note
[2025-02-21] MEDS: POLYETHYLENE GLYCOL 17 GM PACKET PO (08:22)
[2025-02-21] MEDS: DOCUSATE SOD 100 MG CAPSULE 200 MG PO (08:23)
[2025-02-21] MEDS: PANTOPRAZOLE 40 MG TABLET PO (08:23)
[2025-02-21] MEDS: METOPROLOL SUCCINATE XL 25 MG TABCR PO (08:25)
[2025-02-21] MEDS: ASPIRIN EC 81 MG TABEC PO (08:28)
[2025-02-21] MEDS: DOXYCYCLINE 100 MG TABLET PO ×2 (08:28→21:19)
[2025-02-21] MEDS: INSULIN LISPRO (AdmeLOG) 1 UNIT/0.01 ML UNIT SC ×4 (08:28→21:16)
--- NOTE | 2025-02-21 13:54 | PC.CC ---
Addendum entered and electronically signed by Negin Phillips RPh 02/21/25 14:35: Per rounding, patient is not pursuing hospice. Re-ordered CGM from [employer]. Original Note: Received message from [employer] that they are not able to fulfill patient's CGM order if she is on hospice. Noted request from family for CGM in SS notes.
--- NOTE | 2025-02-21 15:37 | PC.SS ---
SS spoke to Lisbet in regards to DC being cancelled, per Lisbet we need to fax DC order which reflects cancelation, stating Change in condition as of 02/20/25, DC canceled. Per Lisbet [facility] will cover stay from time of cancelled order. SS faxed over order showing information. SS also contacted nephew gJ and updated him on [facility] information
--- NOTE | 2025-02-21 18:51 | ESPR_ITS ---
Documentation for date of: 02/21/25 Subjective Subjective Interval history: No acute overnight events. Denies new or worsening symptoms. Maintaining good oxygenation on nasal cannula, and BiPAP intermittently. Denies fever, chills, headaches, chest pain, sob, cough, GI or urinary symptoms. Exam Vital Signs Temp Pulse Resp BP Pulse Ox O2 Del Method O2 Flow Rate 97.7 F 89 18 119/71 98 Nasal Cannula 3 02/21/25 12:00 02/21/25 16:00 02/21/25 12:00 02/21/25 12:00 02/21/25 12:00 02/21/25 12:00 02/21/25 12:00 FiO2 2 02/21/25 08:25 Narrative Exam General: alert and oriented x4 HEENT: Normocephalic, atraumatic, mucous membranes moist. Heart: Regular rate and rhythm, no murmurs. Lungs: Bilateral fine inspiratory crackles are heard. Bilateral bronchial breath sounds heard Abdomen: Soft, nondistended, nontender, positive bowel sounds. ?No guarding or rebound tenderness. Neurologic: no gross neurological deficit, and patient able to move all 4 extremities. Extremities: No edema. Skin: No rash or ecchymoses. Objective Labs 02/21/25 04:30 02/21/25 04:30 Labs: Laboratory Results - last 24 hr 02/21/25 04:30 WBC 11.8 H RBC 3.76 L Hgb 10.6 L Hct 36.4 MCV 97 MCH 28.2 MCHC 29.1 L RDW Std Deviation 56.8 H Plt Count 224 Neut % (Auto) 78 Lymph % (Auto) 10 [place] % (Auto) 8 Eos % (Auto) 3 Baso % (Auto) 0 Neut # (Auto) 9.2 H Lymph # (Auto) 1.2 [place] # (Auto) 0.9 H Eos # (Auto) 0.4 Baso # (Auto) 0.0 Immature Gran # (Auto) 0.10 H Absolute Nucleated RBC 0.00 Immature Gran % 1 H Nucleated RBC % 0 Sodium 139 Potassium 3.7 D Chloride 90 L Carbon Dioxide > 40.0 H Anion Gap 9 BUN 28 H Creatinine 1.2 D Estim Creat Clear Calc 32.8 L eGFR 44 L BUN/Creatinine Ratio 23 H Glucose 181 H D Calculated Osmolality 288 Calcium 10.2 Corrected Calcium 10.7 H Phosphorus 3.0 Magnesium 2.1 Total Bilirubin 0.7 AST 17 ALT 26 Alkaline Phosphatase 55 Total Protein 5.7 Albumin 3.4 Globulin 2.3 Albumin/Globulin Ratio 1.5 ABG Interpretation ABG results: 02/14/25 02/14/25 02/15/25 12:28 14:09 05:00 ABG pH 7.24 L 7.27 L ABG pCO2 88 H* 75 H* D ABG pO2 87 107 D ABG HCO3 38 H 34 H ABG O2 Saturation 95 97 ABG Base Excess 8 H 6 H VBG pH 7.41 VBG pCO2 65 H VBG pO2 33 VBG Base Excess 14 H 02/17/25 02/19/25 11:36 05:19 ABG pH ABG pCO2 ABG pO2 ABG HCO3 ABG O2 Saturation ABG Base Excess VBG pH 7.40 7.61 VBG pCO2 74 H 46 D VBG pO2 42 36 VBG Base Excess 18 H 22 H Quality Measures Quality Measures VTE prophylaxis Advance care planning discussed with:: patient Assessment & Plan Assessment Current Active Medications: Generic Name Dose Route Start Last Admin Trade Name Freq PRN Reason Stop Dose Admin Acetaminophen 650 mg 02/14/25 17:18 Acetaminophen 325 Mg Tablet PO 03/16/25 17:17 Q6H PRN Fever >100.4 Acetazolamide 250 mg 02/20/25 21:00 02/21/25 08:28 Acetazolamide 250 Mg Tablet PO 02/21/25 21:01 250 mg BID LISETTE Administration Al Hydrox/Mg Hydrox/Simethicone 30 ml 02/20/25 08:05 Mg Hyd/Al Hyd/Julianne (Maalox Reg) Susp 30 Ml Udc PO 03/22/25 08:04 Q4HR PRN UPSET STOMACH/INDIGESTION Albuterol/Ipratropium 3 ml 02/14/25 18:34 02/20/25 22:41 Albuterol/Ipratropium (Duoneb) Rt Sravani 3 Ml Nebu INH 03/16/25 18:33 3 ml Q6HRRT PRN Administration Wheezing Aspirin 81 mg 02/14/25 17:30 02/21/25 08:28 Aspirin Ec 81 Mg Tabec PO 03/16/25 17:29 81 mg QDAY LISETTE Administration Atorvastatin Calcium 20 mg 02/14/25 21:00 02/20/25 21:55 Atorvastatin Calcium 20 Mg Tablet PO 03/16/25 20:59 20 mg HS LISETTE Administration Dextrose 25 ml 02/14/25 17:23 Dextrose 50%-Water Inj 50 Ml Syringe IV 03/16/25 17:22 Q15MIN PRN BG 50-70 responsive npo pt Dextrose 50 ml 02/14/25 17:23 Dextrose 50%-Water Inj 50 Ml Syringe IV 03/16/25 17:22 Q15MIN PRN BG <50 OR BG <70 & pt unresponsive Docusate Sodium 200 mg 02/15/25 09:00 02/21/25 08:23 Docusate Sod 100 Mg Capsule PO 03/17/25 08:59 200 mg QDAY LISETTE Administration Protocol Doxycycline Hyclate 100 mg 02/16/25 09:00 02/21/25 08:28 Doxycycline 100 Mg Tablet PO 02/23/25 08:59 100 mg BID LISETTE Administration Furosemide 20 mg 02/21/25 09:00 02/21/25 08:23 Furosemide 40 Mg Tablet PO 03/23/25 08:59 20 mg QAM LISETTE Administration Glucagon 1 mg 02/14/25 17:23 Glucagon Inj 1 Mg Vial IM Q15MIN PRN BG <70, and no IV access Piperacillin/Tazobactam/Dextrose 3.375 gm in 50 mls @ 12.5 mls/hr 02/14/25 22:00 02/21/25 13:32 Zosyn IV 02/21/25 21:59 12.5 mls/hr Q8HR LISETTE Administration Insulin Human Lispro 0 unit 02/17/25 19:48 02/21/25 17:17 Insulin Lispro (Admelog) 1 Unit/0.01 Ml Unit SC 03/17/25 11:29 5 unit ACHS LISETTE Administration Protocol Levothyroxine Sodium 100 mcg 02/15/25 06:00 02/21/25 05:58 Levothyroxine Sodium 100 Mcg Tablet PO 03/17/25 05:59 100 mcg ACBR LISETTE Administration Lidocaine 1 patch 02/20/25 08:06 02/20/25 08:27 Lidocaine 5% 1 Patch TOP 03/22/25 08:05 1 patch UD PRN Administration Pain left shoulder Protocol Metoprolol Succinate 25 mg 02/15/25 09:00 02/21/25 08:25 Metoprolol Succinate Xl 25 Mg Tabcr PO 03/17/25 08:59 25 mg QDAY LISETTE Administration Ondansetron HCl 4 mg 02/14/25 17:18 02/17/25 20:49 Ondansetron Inj 2 Mg/Ml Inj 2 Ml IVP 03/16/25 17:17 4 mg Q6H PRN Administration NAUSEA OR VOMITING Protocol Pantoprazole Sodium 40 mg 02/18/25 09:00 02/21/25 08:23 Pantoprazole 40 Mg Tablet PO 03/16/25 17:29 40 mg QDAY LISETTE Administration Polyethylene Glycol 17 gm 02/15/25 09:00 02/21/25 08:22 Polyethylene Glycol 17 Gm Packet PO 03/17/25 08:59 17 gm QDAY LISETTE Administration Pramipexole Dihydrochloride 1 mg 02/14/25 21:00 02/20/25 21:55 Pramipexole 0.25 Mg Tablet PO 03/16/25 20:59 1 mg HS LISETTE Administration Venlafaxine HCl 150 mg 02/14/25 21:00 02/20/25 21:56 Venlafaxine Xr 37.5 Mg Capcr PO 03/16/25 20:59 150 mg HS LISETTE Administration Plan This is an 89-year-old female with PMHx of ILD/pulmonary fibrosis, chronic respiratory failure on 2 L home oxygen and BiPAP, HFpEF, bedbound, recurrent UTI, hypothyroidism, right breast cancer s/p lumpectomy, T2DM, GERD, depression, chronic back pain, known to us for recurrent admission for hypercapnic respiratory failure, presenting to the ED with acute altered mental status in setting of acute on chronic hypercapnic respiratory failure. Acute hypercapnic respiratory failure Chronic respiratory failure Appropriately compensated Acute vs. Chronic Respiratory Acidosis Worsening ILD/pulmonary fibrosis Possible superimposed bilateral pneumonia She has chronic ILD/pulmonary fibrosis leading to chronic respiratory failure, chronic CO2 retention, requiring daily BiPAP and home oxygen. She has recurrent admission AMS 2/2 hypercapnic respiratory failure as a result. Prognosis remains poor, likely will continue to worsen with time. Recently was discharged on prolonged STEROID taper which she is currently taking. CXR showing superimposed subsegmental pneumonia. She has leukocytosis which possibly reactive but there is also a left shift present. CT chest showed PAH, likely 2/2 ILD. However echo from last month did not show any right pressure elevations. CT also showed mild to moderate HF and confirmed superimposed bilateral pneumonia. On exam there was coarse breath sounds bilaterally. Given underlying lung disease, recent hospital admission, will start broad- spectrum ANTIBIOTICS for HCAP, narrow ANTIBIOTICS based on cultures. Admission ABG showing pH 7.24, pCO2 88 > 75 with BIPAP, bicarb 34. Improving with BiPAP HS and intermittently, although CO2 remains elevated. Completed a full course of ANTIBIOTICS. Afebrile. Mild leukocytosis 2/2 STEROIDS. We well start a trial of ACETAZOLAMIDE given CO2 always elevated, titrate dose for goal of CO2 less than 40 (ideally 35), LASIX dose decreased to 20 mg daily.. 02/21/2025: CO2 remains above 40. We increased DIAMOX to 250 mg BID. Mentation at baseline. ? DuoNebs q.6h. PRN ? Continue BiPAP HS and PRN. ? Continue METHYLPREDNISOLONE 40 mg QDAY (02/14 to 03/13), continue taper thereafter. ? Continue LASIX 20 mg daily ? Continue ACETAZOLAMIDE 250 mg BID, uptitrate for ideal CO2 level of 35. HFpEF EF 65% Echocardiogram from 12/2024 showed EF 65%, trace mitral and tricuspid regurg, no wall motion abnormalities. However, she has chronic fluid retention for which she takes LASIX 20 mg daily. CXR showing vascular congestion and mild bilateral ankle blunting. Renal function within normal limits ? Continue LASIX 20 mg daily ? Strict NARINDER's ? Monitor renal function Hypothyroidism TSH WNL. ? Continue home LEVOTHYROXINE 100 mcg daily T2DM Reportedly, she was refusing oral feeds over the last few days, home GLUCOSE was 75 this morning with baseline around 160. Admission GLUCOSE 135. A1c 7.9 from 01/26/2025. ? INSULIN sliding scale ? Accu-Cheks Dysphagia Esophageal stenosis s/p dilation Chronic constipation On last admission, she had EGD with dilation for dysphagia secondary to esophageal stenosis. Reportedly, she was tolerating oral intake at home. However was refusing food this morning. Speech recommended Dysphagia 3 diet. Acute encephalopathy (resolved) Likely in settings of acute hypercapnic respiratory failure, possible UTI (although she has chronic UTI), or iatrogenic. Mentation appears to have worsened over the last few days, more acutely this morning. She was given MORPHINE and ATIVAN by hospice due to agitation, likely worsening her mental status. Additionally, there was reported BiPAP failure, frequent air leaks, and recurrent hypoxemic episodes. Head CT was negative for acute pathology. ? Treating underlying cause ? Avoid narcotics UTI Hx Pseudomonas aeruginosa UA again showing UTI, and she has chronic UTIs on previous admissions. Previous culture grew Pseudomonas aeruginosa's, sensitive to ZOSYN. Completed a course of ANTIBIOTICS. Currently asymptomatic ? Continue to monitor Health maintenance Diet: Dysphagia 3, CHO consistent GI prophylaxis: PROTONIX DVT prophylaxis: HEPARIN SUBQ Antibiotics: None CODE STATUS: FULL CODE Disposition: Treating [facility] Case was discussed with attending physician and senior resident. Jeffry Eller DO PGY II This document was transcribed using voice recognition technology. Minor inaccuracies may be present. Attending Provider Attestation/Addendum Patient seen and examined. Patient's caregiver at bedside she has concerned about BiPAP set up at home (with delta P). She thinks the weight set up at the hospital is different from what she gets at home. The patient gets drowsy from time to time after several days on BiPAP. Her CO2 is greater than 40 for the past 3 days. Will give her acetazolamide today. Discussed with housestaff.
[2025-02-21] MEDS: VENLAFAXINE XR 37.5 MG CAPCR 150 MG PO (21:17)
[2025-02-21] MEDS: ATORVASTATIN CALCIUM 20 MG TABLET PO (21:19)
[2025-02-21] MEDS: PRAMIPEXOLE 0.25 MG TABLET 1 MG PO (21:19)
[2025-02-22] VITALS (10 sets, daily range): BP systolic 99–117; BP diastolic 50–80; PULSE 78–98; RESP 18–27; TEMP 36.1–36.7; O2SAT 94–99; BMI 38.6
[2025-02-22] MEDS: LEVOTHYROXINE SODIUM 100 MCG TABLET PO (05:17)
[2025-02-22 06:22] LABS: Basophils # (Auto) 0.0 Thou/mm3 (0.0-0.2); Basophils % (Auto) 0 % (0-2.5); Eosinophils # (Auto) 0.4 Thou/mm3 (0.0-0.5); Eosinophils % (Auto) 3 % (0-10); Hematocrit 35.5 % (36.0-46.0); Hemoglobin 10.7 g/dL (12.0-16.0); Immature Granulocytes Auto 0.09 Thou/mm3 (0.00-0.00); Lymphocytes # (Auto) 1.4 Thou/mm3 (1.0-4.8); Lymphocytes % (Auto) 11 % (10-50); Mean Corpuscular HGB Conc 30.1 g/dl (31.0-37.0); Mean Corpuscular Hemoglobin 27.9 pg (25.0-35.0); Mean Corpuscular Volume 92 fL (80-100); Monocytes # (Auto) 0.8 Thou/mm3 (0.0-0.8); Monocytes % (Auto) 7 % (0-12); Neutrophils # (Auto) 9.1 Thou/mm3 (1.8-7.7); Neutrophils % (Auto) 77 % (37-80); Nucleated Red Blood Cell # 0.00 Thou/mm3 (0.00-0.00); Nucleated Red Blood Cell % 0 /100 WBC (0); Platelet Count 204 Thou/mm3 (140-440); RDW Standard Deviation 54.9 fL (36.4-46.3); Red Blood Count 3.84 Miln/mm3 (4.00-5.20); White Blood Count 11.8 Thou/mm3 (3.6-11.0)
[2025-02-22 06:59] LABS: Alanine Aminotransferase 24 U/L (10-49); Albumin, Serum 3.4 gm/dL (3.4-4.8); Albumin/Globulin Ratio 1.5 (1.2-2.2); Alkaline Phosphatase 56 U/L (46-116); Anion Gap 8 (7-16); Aspartate Amino Transferase 16 U/L (0-34); BUN/Creatinine Ratio 20 Ratio (12-20); Bilirubin,Total 0.5 mg/dL (0.3-1.2); Blood Urea Nitrogen 24 mg/dL (9-23); Calcium 10.2 mg/dL (8.3-10.6); Calcium (Corrected) 10.7 mg/dL (8.5-10.1); Carbon Dioxide 36.3 mMol/L (20.0-31.0); Chloride 92 mMol/L (98-107); Creatinine (Component) 1.2 mg/dL (0.6-1.3); Estimated Creatinine Clearance 34.1 mL/min (>60); Globulin 2.3 gm/dL (2.3-3.5); Glucose 181 mg/dL (74-106); Magnesium 1.8 mg/dL (1.6-2.6); Osmolality,Calculated 280 (275-295); Phosphorous 3.2 mg/dL (2.4-5.1); Potassium 3.5 mMol/L (3.4-5.1); Sodium 136 mMol/L (136-145); Total Protein 5.7 gm/dL (5.7-8.2); eGFR 44 See Note
[2025-02-22] MEDS: INSULIN LISPRO (AdmeLOG) 1 UNIT/0.01 ML UNIT SC ×3 (07:54→17:00)
[2025-02-22] MEDS: DOCUSATE SOD 100 MG CAPSULE 200 MG PO (08:06)
[2025-02-22] MEDS: ASPIRIN EC 81 MG TABEC PO (08:06)
[2025-02-22] MEDS: PANTOPRAZOLE 40 MG TABLET PO (08:06)
[2025-02-22] MEDS: POLYETHYLENE GLYCOL 17 GM PACKET PO (08:06)
[2025-02-22] MEDS: DOXYCYCLINE 100 MG TABLET PO (08:06)
[2025-02-22] MEDS: METOPROLOL SUCCINATE XL 25 MG TABCR PO (08:07)
[2025-02-22 12:57] LABS: Albumin, Serum 3.6 gm/dL (3.4-4.8); Anion Gap 6 (7-16); BUN/Creatinine Ratio 24 Ratio (12-20); Blood Urea Nitrogen 29 mg/dL (9-23); Calcium 9.9 mg/dL (8.3-10.6); Calcium (Corrected) 10.2 mg/dL (8.5-10.1); Carbon Dioxide 36.8 mMol/L (20.0-31.0); Chloride 92 mMol/L (98-107); Creatinine (Component) 1.2 mg/dL (0.6-1.3); Estimated Creatinine Clearance 34.1 mL/min (>60); Glucose 281 mg/dL (74-106); Osmolality,Calculated 285 (275-295); Phosphorous 3.3 mg/dL (2.4-5.1); Potassium 3.7 mMol/L (3.4-5.1); Sodium 135 mMol/L (136-145); eGFR 44 See Note
--- NOTE | 2025-02-22 14:39 | PC.SS ---
Addendum entered by DAXA Reese 02/22/25 17:25: SS update: Received call from patient's NephewJg, regarding the d/c plan. He confirmed d/c home with [facility]. Jg has requested ambulance transport arranged. [facility] ETA is [id number]. RN Jamie and nephew Jg updated to receive the patient at home. Addendum entered by DAXA Reese 02/22/25 16:31: SS update: Per resident Dr. Eller, they placed DC orders for the patient for today. Attempted contact with Jg Hassan, and was unsuccessful. Voicemail provided with call back number to confirm the d/c plan for today. Original Note: Rounding note: patient is pending engineering staff to review patient's home BIPAP machine for RT to come test BIPAP. Engineering staff was contacted and cracking unit operator working on work order for engineering to come by. Charge nurse aware.
--- NOTE | 2025-02-22 16:03 | ESDS_ITS ---
Planned Discharge Date 02/22/25 DS: Providers Provider Date of admission: 02/14/25 17:18 Primary care physician: Physician No Primary/Family Admitting Provider: Phuc Yo MD Attending Provider on Admission: Roosevelt Barbosa MD Consults: 02/15/25 06:17 Referral Wound Care Routine Comment: coccyx wound 02/15/25 16:08 Referral Hospice Routine Comment: 02/17/25 15:29 Referral Nutritional Services Routine Comment: Wounds Attending Provider on DC: Roosevelt Barbosa MD Discharging Provider: Roosevelt Barbosa MD DS: Diagnosis Problem List Completed Was Problem List Reviewed/Reconciled?: Yes Hospital Course Hospital Course Hospital course: An 89-year-old female with a history of ILD/pulmonary fibrosis, 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 She was found to be lethargic at home and admitted for acute on chronic hypoxic and hypercapnic respiratory failure, likely secondary to progression of her underlying ILD and possible superimposed pneumonia. Additional contributing factors included recent administration of morphine and Ativan by hospice, BiPAP mask air leaks, and possible UTI. Imaging revealed bilateral pneumonia and pulmo nary vascular congestion; labs showed leukocytosis with left shift. She improved with BiPAP support, IV antibiotics (Zosyn and Vancomycin), methylprednisolone, and supportive care. Her mental status gradually improved during hospitalization. She was continued on home BiPAP at night and PRN during the day, with 15L oxymask as needed. Antibiotics were continued for hospital-acquired pneumonia and UTI, pending final cultures. LASIX was increased to 40 mg daily for fluid overload. Her hypothyroidism remained well-controlled on levothyroxine, and her diabetes was managed with a sliding scale. Given known esophageal stenosis and recent refusal to eat, she was started on a Dysphagia 3 diet per speech recommendations. She is being discharged in stable condition, with close monitoring of respiratory status, fluid balance, and nutrition. Prognosis remains guarded given underlying pulmonary fibrosis and recurrent hospitalizations. Of note: Our criminal justice social worker had previously spoken with the BiPAP provider who confirmed that home BiPAP machine is actively being serviced, and currently in working condition. BiPAP settings which were provided by our pad tufter have been shared with BiPAP provider, and they stated they currently are using the current settings. However they also state that the patient continuously calling for BiPAP services, and they have came out regularly to serve as a BiPAP and it always has been in good working condition. I have advised family member to continue to follow-up with BiPAP provider as needed to ensure that BiPAP machine is working appropriately, which seems to be the case. We also advised against LORAZEPAM or MORPHINE and any other narcotics that may decrease her respiratory drive. PATIENT INSTRUCTIONS: * Follow-up with PCP within 1-2 weeks of discharge. * We've ordered labs for mild hypercalcemia, including PTH/VITAMIN D/CMP to be completed within 1 week after discharge. Please discuss lab results with your PCP. * Return to Emergency Room if symptoms persist, worsen, or new symptoms develop. * Continue taking prednisone as prescribed and taper. * Continue using BiPAP at night daily and as needed for shortness of breath and to prevent CO2 retention. * Insulin needs to be adjusted when steroid dose is tapered down each month. * Continue to take insulin homolog as per sliding scale. * Continue to take Lasix 20 mg instead of 40 mg every day. * Continue to take DIAMOX 250 mg twice daily. * Continue taking other medications as prescribed below. * Continue salt and fluid restriction. * Please use the following BiPAP settings: IPAP 18, EPAP 8, FiO2 greater or equal to 30% PRN. ADMISSION DIAGNOSES: Acute encephalopathy (resolved) Acute hypercapnic respiratory failure Chronic respiratory failure Appropriately compensated Acute vs. Chronic Respiratory Acidosis Worsening ILD/pulmonary fibrosis Possible superimposed bilateral pneumonia UTI Hx Pseudomonas aeruginosa HFpEF EF 65% Hypothyroidism T2DM Dysphagia Esophageal stenosis s/p dilation Chronic constipation Case was discussed with attending physician. Jeffry Eller DO PGY II This document was transcribed using voice recognition technology. Minor inaccuracies may be present. Time Spent with Patient Time attestation: Total time spent providing and/or coordinating discharge services: Time spent: Less than 30 minutes Home Health Home Health Referral Orders: 02/22/25 14:26 Home Health Referral Routine Reason For Exam: Generalized weakness Home-Bound The patient must either because of illness or injury, need the aid of supportive devices such as crutches, canes, wheelchairs, and walkers; the use of special transportation; or the assistance of another person in order to leave their place of residence; OR have a condition such that leaving his or her home is medically contraindicated. In addition, the patient also meets the following criteria: patient is normally unable to leave the home and leaving home requires considerable taxing effort. Addendum to Home Health Certification Practitioner's Certification: I certify that the patient has been under my care in the hospital and the care of attending physician (see below). We had a [id number] encounter on (see date below). My clinical findings indicate that the patient is home bound per the above criteria and the Home Health Services noted in these orders are medically necessary. The primary reason for the [id number] encounter is related to the fact that the patient requires home health services. Date Certifying [id number] Physician Encounter: 02/14/25 Physician's Name who will Assume Oversight for HH Services: Physician No Primary/Family FABRICATION OPERATOR - Community Resources: No PT to Evaluate: Yes PT to evaluate and provide a treatmnet plan to increase patient's mobility and strength. Wound Care: No IV Therapy: No RN Safety Evaluation: Yes RN to evaluate and create a plan of care that will produce positive outcomes. Palliative Treatment: No Palliative treatment and evaluate the need for hospice. Home Health Aide - Personal Care: No Home Health Aide to assist with any ADL's. Exam Vital Signs Temp Pulse Resp BP Pulse Ox O2 Del Method O2 Flow Rate 96.9 F 97 18 100/62 27 L Room Air 3 02/22/25 12:02/22/25 12:02/22/25 12:02/22/25 12:02/22/25 12:02/22/25 12:02/21/25 12:00 FiO2 30 02/22/25 11:15 Narrative Exam General: alert and oriented x4 HEENT: Normocephalic, atraumatic, mucous membranes moist. Heart: Regular rate and rhythm, no murmurs. Lungs: Bilateral fine inspiratory crackles are heard. Bilateral bronchial breath sounds heard Abdomen: Soft, nondistended, nontender, positive bowel sounds. ?No guarding or rebound tenderness. Neurologic: no gross neurological deficit, and patient able to move all 4 extremities. Extremities: No edema. Skin: No rash or ecchymoses. Discharge Plan Plan Patient Disposition: Home w/HOME HEALTH Patient condition on transfer: Stable Care Plan Goals: * Follow-up with PCP within 1-2 weeks of discharge. * We've ordered labs for hypercalcemia (corrected calcium 10.4), including PTH/VITAMIN D/CMP to be completed within 1 week after discharge. Please have your labs done 3 days prior to seeing your PCP. * Return to Emergency Room if symptoms persist, worsen, or new symptoms develop. * Continue taking prednisone as prescribed and taper. * Continue using BiPAP at night daily and as needed for shortness of breath and to prevent CO2 retention. * Insulin needs to be adjusted when steroid dose is tapered down each month. * Recommended to take send homolog as per sliding scale. * Recommended to take Lasix 20 Mg instead of 40 mg every day. * Recommended to take rest of the home medications as prescribed. * Recommended salt and fluid restriction. * Follow-up with home BiPAP provider for regular maintenance. * Please use the following BiPAP settings: IPAP 18, EPAP 8, FiO2 greater or equal to 30% PRN. * Continue taking other medications as prescribed below. Prescriptions/Referrals Prescriptions/Med Rec: New acetazolamide 250 mg Tablet 250 mg PO BID Qty: 60 0RF Continued levothyroxine 75 mcg Tablet 100 mcg PO QAM Rx Instructions: pt now taking 100 MCG methenamine hippurate 1 gram tablet 1 g PO BID Patient Comments: TAKE 1 TABLET BY MOUTH TWICE A DAY WITH 500 MG OF VITAMIN C Rx Instructions: TAKE 1 TABLET BY MOUTH TWICE A DAY WITH 500 MG OF VITAMIN C venlafaxine 150 mg capsule,extended release 24hr 150 mg PO QDAY omeprazole 40 mg Capsule,Delayed Release(Dr/Ec) 40 mg PO QDAY rosuvastatin 5 mg Tablet 5 mg PO HS aspirin 81 mg Tablet 81 mg PO QDAY ascorbic acid (vitamin C) [Vitamin C] 500 mg Tablet 500 mg PO BID metoprolol succinate 25 mg Tablet Extended Release 24 Hr 25 mg PO QDAY Qty: 30 0RF insulin glargine [Lantus U-100 Insulin] 100 unit/mL solution 20 unit SUBCUT HS prednisone 10 mg tablet See Taper PO QDAY Qty: 360 0RF Taper: Prednisone Taper 40 mg DAILY for 30 Days and 0 Hour 30 mg DAILY for 30 Days and 0 Hour 20 mg DAILY for 30 Days and 0 Hour 10 mg DAILY for 30 Days and 0 Hour 5 mg DAILY for 30 Days and 0 Hour Rx Instructions: Take 40 mg (4, 10 mg tablets) for 30 days, then Take 30 mg (3, 10 mg tablets) for 30 days, then Take 20 mg (2, 10 mg tablets) for 30 days, then Take 10 mg (1, 10 mg tablet) for 30 days, then Take 5 mg (1/2, 10 mg tablet) for 30 days insulin lispro [Humalog KwikPen Insulin] 100 unit/mL insulin pen 1 sliding scale dose subcut USEASDIRECTD Qty: 15 3RF insulin aspart U-100 [Novolog FlexPen U-100 Insulin] 100 unit/mL (3 mL) insulin pen 1 sliding scale dose subcut USEASDIRECTD Qty: 15 3RF Rx Instructions: Take insulin as per sliding scale levothyroxine 100 mcg tablet 100 mcg PO QDAY glimepiride 2 mg tablet 2 mg PO BID Azo Cranberry 250 mg tablet,chewable 500 mg PO QDAY furosemide 40 mg tablet 40 mg PO QAM Patient Comments: TAKE 1 TABLET BY MOUTH EVERY DAY IN THE MORNING hydrocodone-acetaminophen 10-325 mg tablet 1 tab PO TID PRN (Reason: pain) pramipexole 0.5 mg tablet 1 mg PO HS Patient Comments: TAKE 1 TABLET BY MOUTH EVERYDAY AT BEDTIME cranberry 500 mg capsule 1,000 mg PO QDAY Rx Instructions: administer with a meal Probiotic 20 billion cell capsule 25,000 mmu cells PO QDAY Rx Instructions: administer with a meal calcium carbonate-vitamin D3 [Calcium 600 + D(3)] 600 mg-5 mcg (200 unit) tablet 0.5 tab PO QDAY Referrals: No Primary/Family,Physician [Primary Care Provider] - Outpatient Orders (i.e. Home Health, Labs, Imaging): Comprehensive Metabolic Panel (Routine) Location: None Selected Ordered By: Jeffry Eller Parathyroid Hormone Intact (Routine) Location: None Selected Ordered By: Jeffry Eller Vitamin D 25 Hydroxy Total (Routine) Location: None Selected Ordered By: Jeffry Eller Patient/Caregiver Discharge Instructions Education Materials: Chest and Lung Problems, Interstitial Lung Disease, Preventing Common Respiratory ..., Using a BPAP Print Language: Singaporean Stand Alone Forms: [employer] Award Info., Patient Portal Info Letter Discharge Order Discharge Orders: Discharge (Routine); Ordered 02/22/25 Ordered By: Jeffry Eller Quality Discharge Quality Measures VTE prophylaxis Attestestation MD Attestation I attest that I was physically present for the evaluation, physical examination, lab and imaging review of the patient with the residents. I discussed the case with the residents and agree with the findings and plans of care as documented above. Roosevelt Barbosa MD
[2025-02-22 16:57] LABS: Albumin, Serum 3.4 gm/dL (3.4-4.8); Anion Gap 9 (7-16); BUN/Creatinine Ratio 23 Ratio (12-20); Blood Urea Nitrogen 28 mg/dL (9-23); Calcium 9.6 mg/dL (8.3-10.6); Calcium (Corrected) 10.1 mg/dL (8.5-10.1); Carbon Dioxide 34.4 mMol/L (20.0-31.0); Chloride 93 mMol/L (98-107); Creatinine (Component) 1.2 mg/dL (0.6-1.3); Estimated Creatinine Clearance 34.1 mL/min (>60); Glucose 366 mg/dL (74-106); Osmolality,Calculated 292 (275-295); Phosphorous 3.2 mg/dL (2.4-5.1); Potassium 3.6 mMol/L (3.4-5.1); Sodium 136 mMol/L (136-145); eGFR 44 See Note
--- NOTE | 2025-02-23 09:09 | PC.CM ---
Addendum entered by Roman Gilbert RN 02/23/25 09:44: 0940 [facility] 02/24/25 Original Note: 0900 PATIENT OPEN TO [facility] TODAY, WAITING FOR START OF CARE DATE.
--- NOTE | 2025-02-23 15:52 | PD.RESEVENT ---
Documentation for date of: 02/23/25 Event Note Event Note: I spoke with caregiver, Emilia, today around 3PM in regards to her prescription medications. She was discharged on DIAMOX 250 mg BID. She received 1 dose in the AM on Friday while in the hospital, and Ashley had given another pill today this AM. I informed Emilia to give one more DIAMOX in the AM tomorrow. I had also asked to get labs done at the hospital this Friday morning and come see me in the office on the same day in the afternoon as a walk in. Also informed her to discontinue LASIX. Will evaluate fluid status on Friday. Case was discussed with attending physician. Jeffry Eller, PGY II This document was transcribed using voice recognition technology. Minor inaccuracies may be present.
== END 2025-02-22 18:40 | disposition home health service (06) | DRG 189 ==
LOC: SERX 16:47 → SERHOLD 17:46 → S2NX 23:16 → S3SX 02-15 23:03
PROVIDERS: Admitting Provider Student in an Organized Health Care Education/Training Program; Emergency Provider Emergency Medicine; Visit Provider Student in an Organized Health Care Education/Training Program
DX: J96.22 Acute and chronic respiratory failure with hypercapnia (principal); J18.9 Pneumonia, unspecified organism; I50.32 Chronic diastolic (congestive) heart failure; G93.40 Encephalopathy, unspecified; J44.0 Chronic obstructive pulmonary disease with (acute) lower respiratory infection; N39.0 Urinary tract infection, site not specified; G47.00 Insomnia, unspecified; J96.21 Acute and chronic respiratory failure with hypoxia; E03.9 Hypothyroidism, unspecified; E11.9 Type 2 diabetes mellitus without complications; Z99.81 Dependence on supplemental oxygen; J84.10 Pulmonary fibrosis, unspecified; Z85.3 Personal history of malignant neoplasm of breast; Z87.440 Personal history of urinary (tract) infections; F32.A Depression, unspecified; G89.29 Other chronic pain; M54.9 Dorsalgia, unspecified; K21.9 Gastro-esophageal reflux disease without esophagitis; Z74.01 Bed confinement status; I48.91 Unspecified atrial fibrillation; I45.10 Unspecified right bundle-branch block; R13.10 Dysphagia, unspecified; K59.09 Other constipation; I27.20 Pulmonary hypertension, unspecified; K22.2 Esophageal obstruction; M19.019 Primary osteoarthritis, unspecified shoulder; T38.0X5A Adverse effect of glucocorticoids and synthetic analogues, initial encounter; Z51.5 Encounter for palliative care; Z66 Do not resuscitate; Z79.4 Long term (current) use of insulin; Z79.890 Hormone replacement therapy; Z79.899 Other long term (current) drug therapy; Z88.2 Allergy status to sulfonamides; Z88.8 Allergy status to other drugs, medicaments and biological substances
CPT/HCPCS: 36415; 36600; 70450; 71045; 71250; 72125; 73060; 80053; 80069; 81001; 82550; 82803; 83605; 83735; 83880; 84100; 84145; 84443; 84484; 85025; 86140; 87040; 87077; 87081; 87086; 87186; 92610; 93005; 93225; 94640; 94660; 96365; 96366; 96367; 96372; 96375; 99291; A9270; J1720; J1815; J1938; J2405; J2470; J2543; J2765; J2919; J3370; J3490

== ENCOUNTER → 2025-02-25 | Outpatient (CLI) | payer MEDICARE, SELFPAY ==
[2025-02-25 12:58] LABS: Parathyroid Hormone Intact 46.8 pg/ml (18.5-88.0)
[2025-02-25 13:01] LABS: Alanine Aminotransferase 29 U/L (10-49); Albumin, Serum 3.6 gm/dL (3.4-4.8); Albumin/Globulin Ratio 1.6 (1.2-2.2); Alkaline Phosphatase 89 U/L (46-116); Anion Gap 6 (7-16); Aspartate Amino Transferase 15 U/L (0-34); BUN/Creatinine Ratio 31 Ratio (12-20); Bilirubin,Total 0.3 mg/dL (0.3-1.2); Blood Urea Nitrogen 37 mg/dL (9-23); Calcium 10.6 mg/dL (8.3-10.6); Calcium (Corrected) 10.9 mg/dL (8.5-10.1); Carbon Dioxide 33.0 mMol/L (20.0-31.0); Chloride 96 mMol/L (98-107); Creatinine (Component) 1.2 mg/dL (0.6-1.3); Globulin 2.3 gm/dL (2.3-3.5); Osmolality,Calculated 295 (275-295); Potassium 4.6 mMol/L (3.4-5.1); Sodium 135 mMol/L (136-145); Total Protein 5.9 gm/dL (5.7-8.2); Vitamin D 25 Hydroxy Total 42.1 ng/mL (7.3-40.2); eGFR 44 See Note
[2025-02-25 13:06] LABS: Glucose 413 mg/dL (74-106)
== END | disposition home or self-care (01) ==
LOC: SLAB 12:03
PROVIDERS: PCP Internal Medicine
DX: E83.52 Hypercalcemia (principal); J96.12 Chronic respiratory failure with hypercapnia
CPT/HCPCS: 36415; 80053; 82306; 83970

== ENCOUNTER 2025-03-01 11:12 | Outpatient (AMB) | payer MEDICARE, SELFPAY ==
--- NOTE | 2025-03-01 11:12 | PD.RESCLINIC ---
Allergies/Meds Allergies & Medications Allergies cefuroxime Allergy (Intermediate, Verified 03/01/25 11:13) Swelling of Lip/Tongue/Throat zinc Allergy (Intermediate, Verified 03/01/25 11:13) Rash iodine Allergy (Unknown, Verified 03/01/25 11:13) shellfish derived Allergy (Unknown, Verified 03/01/25 11:13) Sulfa (Sulfonamide Antibiotics) Allergy (Unknown, Verified 03/01/25 11:13) Influenza Virus Vaccines Allergy (Verified 03/01/25 11:13) Medication Reconciliation levothyroxine 75 mcg tablet 100 mcg PO QAM 04/18/20 [History Confirmed 03/15/25] Held on 03/15/25. Instructions: Doctor's Order methenamine hippurate 1 gram tablet 1 g PO BID 04/18/20 [History Confirmed 03/15/25] omeprazole 40 mg capsule,delayed release 40 mg PO QDAY 06/04/21 [History Confirmed 03/15/25] rosuvastatin 5 mg tablet 5 mg PO HS 06/04/21 [History Confirmed 03/15/25] venlafaxine 150 mg capsule,extended release 24 hr 150 mg PO QDAY 06/04/21 [History Confirmed 03/15/25] ascorbic acid (vitamin C) 500 mg tablet (Vitamin C) 500 mg PO BID 03/19/24 [History Confirmed 03/15/25] aspirin 81 mg tablet 81 mg PO QDAY 03/19/24 [History Confirmed 03/15/25] metoprolol succinate 25 mg tablet,extended release 24 hr 25 mg PO QDAY #30 tabs 03/25/24 [Rx Confirmed 03/15/25] calcium 600 mg (as carbonate)-vitamin D3 5 mcg (200 unit) tablet (Calcium 600 + D(3)) 0.5 tab PO QDAY 12/27/24 [History Confirmed 03/15/25] cranberry 500 mg capsule 1,000 mg PO QDAY 12/27/24 [History Confirmed 03/15/25] Held on 03/15/25. Instructions: Doctor's Order hydrocodone 10 mg-acetaminophen 325 mg tablet 1 tab PO TID PRN pain 12/27/24 [History Confirmed 03/15/25] lactobacillus comb no.10 20 billion cell capsule (Probiotic) 25,000 mmu cells PO QDAY 12/27/24 [History Confirmed 03/15/25] pramipexole 0.5 mg tablet 1 mg PO HS 12/27/24 [History Confirmed 03/15/25] insulin glargine 100 unit/mL subcutaneous solution (Lantus U-100 Insulin) 20 unit subcut HS 02/05/25 [History Confirmed 03/15/25] insulin lispro 100 unit/mL subcutaneous pen (Humalog KwikPen (U-100) Insulin) 1 sliding scale dose subcut USEASDIRECTD #15 mL 02/11/25 [Rx Confirmed 03/15/25] Held on 03/15/25. Instructions: Doctor's Order prednisone 10 mg tablet See Taper PO QDAY #360 tabs 02/11/25 [Rx Confirmed 03/15/25] cranberry fruit concentrate 250 mg chewable tablet (Azo Cranberry) 500 mg PO QDAY 02/15/25 [History Confirmed 03/15/25] furosemide 40 mg tablet 40 mg PO QAM 02/15/25 [History Confirmed 03/15/25] Held on 03/01/25. Instructions: Doctor's Order glimepiride 2 mg tablet 2 mg PO BID 02/15/25 [History Confirmed 03/15/25] levothyroxine 100 mcg tablet 100 mcg PO QDAY 02/15/25 [History Confirmed 03/15/25] acetazolamide 250 mg tablet 250 mg PO BID #60 tabs 02/22/25 [Rx Confirmed 03/15/25] Held on 03/15/25. Instructions: Doctor's Order insulin aspart U-100 100 unit/mL (3 mL) subcutaneous pen (Novolog FlexPen U-100 Insulin aspart) 1 sliding scale dose subcut USEASDIRECTD PRN hyperglycemia 03/15/25 [History Confirmed 03/15/25] magnesium carb,citrate,oxide (Magnesium Complex) 80.5 mg PO QDAY 03/15/25 [History Confirmed 03/15/25] metformin 500 mg tablet 1,000 mg PO BID 03/15/25 [History Confirmed 03/15/25] MA Intake Visit Data Collection New Patient or Established: Established Patient (seen at [facility] within 3 years) Seen by Clinical Staff ONLY (RN/MA): No Pain Present Currently: No Pain scale:: 0 Pain Scale Used: Fernandez-Dorsey/Numerical Elevator Pilot Required: No PCP or OBGYN visit in last 3 months: No Hx Now: No Do You Feel Safe at Home: Yes Authorities Contacted: N/A Smoking Status Smoking Status: Never smoker For Televisit only Telemed Video/Phone Visit: Yes Verbal consent obtained for Telemed visit?: Yes Verbal Consent witness name: SAMUEL RAVI NOVA Telemed Video/Phone visit w/Clinical Staff: 21-30 min Immunization / Flu Flu Vaccine in the Last 12 Months: No Flu Vaccine Exclusion Criteria: No Exclusion Criteria Past Medical History Past Medical History NEUROLOGIC: Negative Neurological Disorders, Cerebrovascular Accident, Transient Ischemic Attacks (TIA), Dementia, Alzheimer's Disease, Parkinson's Disease, Brain Tumor, Meningitis, Seizures, Epilepsy, Multiple Sclerosis, Cerebral Palsy, Amyotrophic Lateral Sclerosis (ALS/Dee Gehrig's), Guillain-[place] Syndrome, Spina Bifida, Paralysis, Peripheral Neuropathy, [place]cido's Palsy, Subdural Hematoma, Migraine, Head Trauma, Spinal Cord Injury or Traumatic Brain Injury CARDIAC: Positive Cardiac Disorders, Coronary Artery Disease, Hypercholesterolemia, Congestive Heart Failure and Hypertension; Negative Myocardial Infarction, Cardiac Arrhythmia, Atrial Fibrillation, Angina, Heart Murmur, Atherosclerotic Heart Disease, Peripheral Vascular Disease, Aneurysm, Congenital Heart Disease, Valvular Heart Disease, Rheumatic Fever, Cardiomyopathy, Edema, Pericarditis, Cellulitis, Deep Vein Thrombosis, Hypotension or Varicose Veins RESPIRATORY: Positive Chronic Obstructive Pulmonary Disease (COPD), Asthma, Pneumonia, Pulmonary Fibrosis and Sleep Apnea; Negative Bronchitis, Emphysema, Cystic Fibrosis, Tuberculosis, Pulmonary Embolism or Pulmonary Edema GASTROINTESTINAL: Positive Gastrointestinal Disorders, Gall Bladder Disease, Gastroesophageal Reflux Disease and Obesity; Negative Hepatitis, Cirrhosis, Pancreatitis, Celiac Disease, Gastrointestinal Bleed, Esophageal Varices, White's Esophagus, Colitis, Ulcerative Colitis, Diverticulitis, Diverticulosis, Ulcer, Colorectal Cancer, Irritable Bowel, Crohn's Disease, Obstructive Bowel, Hiatal Hernia or Hemorrhoids GENITOURINARY: Positive Genitourinary Disorders and Kidney Stones; Negative Renal Disease, Polycystic Kidney Disease, Neurogenic Bladder, Inguinal Hernia, Dialysis, Prostate Cancer or Benign Prostatic Hyperplasia REPRODUCTIVE: Positive Breast Cancer; Negative Endometriosis, Genital Herpes, Gonorrhea, Pelvic Inflammatory Disease, Previous Pregnancies, Syphilis, Testicular Cancer or Uterine Prolapse MUSCULOSKELETAL: Positive Arthritis and Fractures; Negative Muscular Dystrophy, Myasthenia Gravis, Marfan's Syndrome, Bone Cancer, Rheumatoid Arthritis, Osteoporosis, Degenerative Disk Disease, Gout, Scoliosis, Carpal Tunnel Syndrome, Fibromyalgia, Degenerative Joint Disease, Osteomyelitis or Poliovirus ENT: Negative Cataracts, Glaucoma, Blind, Retinal Detachment, Macular Degeneration, Ear Infection, Deafness, Head Trauma or Eye Prosthesis ENDOCRINE: Positive Endocrine Disorders, Diabetes Mellitus Type 2 and Hypothyroidism; Negative Diabetes Mellitus Type 1, Hypoglycemia, [place]'s Syndrome, [place]'s Disease, Hyperthyroidism, Parathyroid Disease, Pituitary Disease, Systemic Lupus Erythematosus, Syndrome of Inappropriate Antidiuretic Hormone (SIADH), Adrenal Disease or Graves' Disease HEMATOLOGIC: Negative Blood Disorders, Anemia, Leukemia, Hemophilia, Thalassemia, Sickle Cell Disease or Clotting Problems PSYCHO/SOCIAL: Positive Depression and Anxiety; Negative Psychiatric Problems, Schizophrenia, Recreational Drug Use, Bipolar Disorder, Behavior Problems, Self-Mutilation, Attention Deficit Disorder, Attention Deficit Hyperactivity Disorder, Depression, Post Traumatic Stress Disorder or Eating Disorder OTHER HISTORY: Positive Cancer and Breast Cancer; Negative Hospitalization, Down Syndrome, Autism, Developmental Delay, Shingles, Falls, Blood Transfusions, Blood Transfusion Reaction, Anesthesia Reactions, Organ Transplant, Chemotherapy, Radiation Therapy, Hyperbaric Therapy, MRSA, VRSA, Vancomycin-Resistant Enterococci, Human Immunodeficiency Virus (HIV), Chicken Pox, Measles, Mumps, Rubella (Irish Measles), Pertussis, Clostridium Difficile, Cervical Cancer, Colorectal Cancer, Lung Cancer, Ovarian Cancer, Prostate Cancer or Testicular Cancer Family History FAMILY HISTORY: Positive Family Cardiac Disorders and Family Cancer; Negative Family Psychiatric Problems, Family Respiratory Disorders, Family Gastrointestinal Problems, Family Surgery or Family Anesthesia Reaction Surgical History SURGICAL: Positive Tonsillectomy, Abdominal Surgery and Lumpectomy; Negative Cardiac Surgery, Open Heart Surgery, Coronary Artery Bypass Graft, Valve Replacement, Vascular Surgery, Coronary Stent, Cardiac Catheterization, Pacemaker, Angiogram, Auto Implanted Cardiovert Defib, Carotid Endarterectomy, Endocrine Surgery, Thyroidectomy, Ear Surgery, Tympanostomy Tube, Eye Surgery, Nose Surgery, Oral Surgery, Adenoidectomy, Cochlear Implant, Corneal Transplant, Throat Surgery, Tracheostomy, Gastric Bypass Surgery, Gastrostomy, Bowel Surgery, Nephrectomy, Transurethral Resection, Joint Replacement, Amputation, Open Reduction Internal Fixation, Arthroscopy, Neurologic Surgery, Brain Shunt, Mastectomy, Hysterectomy, Tubal Ligation, Section or Organ Transplant Social History SMOKING STATUS: Smoking status: Never smoker SECOND HAND EXPOSURE: second hand exposure: No ALCOHOL: Alcohol Intake: Former ALCOHOL FREQUENCY: Alcohol Intake Frequency: holidays/special occasions only HOUSING: Housing: House LIVES WITH: Lives With: Caregiver Patient Portal Questionaires Social History Living Situation History Housing: House Housing Other:: Patient resides at home with her caregivers. Tobacco History Smoking Status: Never smoker Second Hand Smoke Exposure: No Alcohol History Alcohol Intake: Former Alcohol Intake Frequency: holidays/special occasions only Domestic Abuse History Do You Feel Safe at Home: Yes Review of Systems Report any current symptoms Only answer those that you have currently: Past Medical History Past Medical History Have you ever been diagnosed with any of the following: Neurological Problems Cerebrovascular Accident (CVA): No Transient Ischemic Attacks (TIA): No Dementia: No Alzheimer's Disease: No Parkinson's Disease: No Brain Tumor: No Meningitis: No Seizures: No Epilepsy: No Multiple Sclerosis: No Cerebral Palsy: No Amyotrophic Lateral Sclerosis (ALS/Dee Gehrig's): No Guillain-[place] Syndrome: No Spina Bifida: No Paralysis: No Peripheral Neuropathy: No Salcido's Palsy: No Subdural Hematoma: No Migraine: No Head Trauma: No Spinal Cord Injury: No Traumatic Brain Injury: No Cardiology Problems Myocardial Infarction: No Cardiac Arrhythmia: No Atrial Fibrillation: No Angina: No Heart Murmur: No Coronary Artery Disease: Yes Atherosclerotic Heart Disease: No Peripheral Vascular Disease: No Hypercholesterolemia: Yes Aneurysm: No Congestive Heart Failure: Yes Congenital Heart Disease: No Valvular Heart Disease: No Rheumatic Fever: No Cardiomyopathy: No Edema: No Pericarditis: No Cellulitis: No Deep Vein Thrombosis: No Hypertension: Yes Hypotension: No Varicose Veins: No Respiratory Problems Chronic Obstructive Pulmonary Disease (COPD): Yes Asthma: Yes Bronchitis: No Emphysema: No Pneumonia: Yes Pulmonary Fibrosis: Yes Tuberculosis: No Pulmonary Embolism: No Pulmonary Edema: No Sleep Apnea: Yes Stomache/Intestinal Problems Hepatitis: No Cirrhosis: No Pancreatitis: No Celiac Disease: No Gall Bladder Disease: Yes Gastrointestinal Bleed: No Esophageal Varices: No White's Esophagus: No Colitis: No Ulcerative Colitis: No Diverticulitis: No Diverticulosis: No Ulcer: No Colorectal Cancer: No Irritable Bowel: No Crohn's Disease: No Obstructive Bowel: No Hiatal Hernia: No Hemorrhoids: No Gastroesophageal Reflux Disease: Yes Obesity: Yes Genital/Urinary Problems Renal Disease: No Kidney Stones: Yes Polycystic Kidney Disease: No Neurogenic Bladder: No Inguinal Hernia: No Dialysis: No Reproductive Problems Breast Cancer: Yes Endometriosis: No Genital Herpes: No Gonorrhea: No Pelvic Inflammatory Disease: No Previous Pregnancies: No Syphilis: No Uterine Prolapse: No Musculoskeletal Problems Muscular Dystrophy: No Myasthenia Gravis: No Marfan's Syndrome: No Bone Cancer: No Arthritis: Yes Rheumatoid Arthritis: No Osteoporosis: No Degenerative Disk Disease: No Gout: No Scoliosis: No Carpal Tunnel Syndrome: No Fibromyalgia: No Fractures: Yes Degenerative Joint Disease: No Osteomyelitis: No Poliovirus: No Head,Eye,Nose,Throat Problems Cataracts: No Glaucoma: No Blind: No Retinal Detachment: No Macular Degeneration: No Chronic Ear Infections: No Deafness: No Eye Prosthesis: No Endocrine Problems Diabetes Mellitus Type 1: No Diabetes Mellitus Type 2: Yes Hypoglycemia: No [place]'s Syndrome: No Hilario's Disease: No Hyperthyroidism: No Hypothyroidism: Yes Parathyroid Disease: No Pituitary Disease: No Systemic Lupus Erythematosus: No Syndrome of Inappropriate Antidiuretic Hormone: No Adrenal Disease: No Graves' Disease: No Blood Problems Anemia: No Leukemia: No Hemophilia: No Thalassemia: No Sickle Cell Disease: No Clotting Problems: No Psychologic Problems Schizophrenia: No Recreational Drug Use: No Bipolar Disorder: No Depression: Yes Anxiety: Yes Behavior Problems: No Self-Mutilation: No Attention Deficit Disorder: No Attention Deficit Hyperactivity Disorder: No Depression: No Post Traumatic Stress Disorder: No Eating Disorder: No Other Problems Hospitalization: No Down Syndrome: No Autism: No Developmental Delay: No Shingles: No Falls: No Blood Transfusions: No Blood Transfusion Reaction: No Anesthesia Reactions: No Organ Transplant: No Chemotherapy: No Radiation Therapy: No Hyperbaric Therapy: No MRSA: No VRSA: No Vancomycin-Resistant Enterococci: No Human Immunodeficiency Virus (HIV): No Chicken Pox: No Measles: No Mumps: No Rubella (Irish Measles): No Pertussis: No Clostridium Difficile: No Cancer: Yes Cervical Cancer: No Lung Cancer: No Ovarian Cancer: No Surgical History Carotid Endarterectomy: No Coronary Artery Bypass Graft: No Valve Replacement: No Hysterectomy: No Pacemaker: No Thyroidectomy: No History of Present Illness HPI Narrative 03/01/2025: An 89-year-old female with a history of ILD/pulmonary fibrosis, chronic hypercapnic respiratory failure on home oxygen and BiPAP, HFpEF, recurrent UTIs (including Pseudomonas), hypothyroidism, type 2 diabetes, GERD, depression, and chronic back pain who is recently discharged from hospital on 02/22/2025 for Acute on chronic hypoxic, hypercapneic respiratory failure. Of note: Our social science analyst had previously spoken with the BiPAP provider who confirmed that home BiPAP machine is actively being serviced, and currently in working condition. BiPAP settings which were provided by our process control supervisor have been shared with BiPAP provider, and they stated they currently are using the current settings. However they also state that the patient continuously calling for BiPAP services, and they have came out regularly to serve as a BiPAP and it always has been in good working condition. I have advised family member to continue to follow-up with BiPAP provider as needed to ensure that BiPAP machine is working appropriately, which seems to be the case. We also advised against LORAZEPAM or MORPHINE and any other narcotics that may decrease her respiratory drive. Office Procedures [facility] Level of Care Nursing/Assessment Patient Status: Established Patient Nursing Assessment/Reassessment: Medication Reconciliation and Update PMH in EMR Coordination of Care: Complex Care and Chronic Disease 1-5, Consent,records obtained, informed consent, Education Simp Pt/Fam and Staff clarify orders Established Patient Charge Established Patient Point Assignment: 70 Telehealth Telemed Phone/Video with patient at home & ,PA,CYLINDER HONER: Yes
== END 2025-03-01 11:59 | disposition home or self-care (01) ==
LOC: HODAHC 11:12
PROVIDERS: Supervising Provider Internal Medicine
DX: J96.22 Acute and chronic respiratory failure with hypercapnia (principal); J96.21 Acute and chronic respiratory failure with hypoxia; Z99.81 Dependence on supplemental oxygen; Z99.89 Dependence on other enabling machines and devices; I50.30 Unspecified diastolic (congestive) heart failure; E11.9 Type 2 diabetes mellitus without complications; K21.9 Gastro-esophageal reflux disease without esophagitis; E03.9 Hypothyroidism, unspecified; F32.A Depression, unspecified; Z87.440 Personal history of urinary (tract) infections; Z79.4 Long term (current) use of insulin; Z79.890 Hormone replacement therapy; Z79.84 Long term (current) use of oral hypoglycemic drugs
CPT/HCPCS: 36415; 80053; 82803; 99212; G0463

== ENCOUNTER → 2025-03-01 | Outpatient (CLI) | payer MEDICARE, SELFPAY ==
[2025-03-01 10:45] LABS: Base Excess, Venous 7 (-3-3); O2 Saturation, Venous 89 % (96-97); PCO2, Venous 50 mmHg (36-56); PO2, Venous 52 mmHg (15-58); pH, Venous 7.42 (7.33-7.66)
[2025-03-01 11:05] LABS: Alanine Aminotransferase 38 U/L (10-49); Albumin, Serum 3.3 gm/dL (3.4-4.8); Albumin/Globulin Ratio 1.6 (1.2-2.2); Alkaline Phosphatase 77 U/L (46-116); Anion Gap 6 (7-16); Aspartate Amino Transferase 29 U/L (0-34); BUN/Creatinine Ratio 21 Ratio (12-20); Bilirubin,Total 0.3 mg/dL (0.3-1.2); Blood Urea Nitrogen 21 mg/dL (9-23); Calcium 9.4 mg/dL (8.3-10.6); Calcium (Corrected) 10.0 mg/dL (8.5-10.1); Carbon Dioxide 31.2 mMol/L (20.0-31.0); Chloride 98 mMol/L (98-107); Creatinine (Component) 1.0 mg/dL (0.6-1.3); Globulin 2.1 gm/dL (2.3-3.5); Glucose 376 mg/dL (74-106); Osmolality,Calculated 288 (275-295); Potassium 4.8 mMol/L (3.4-5.1); Sodium 135 mMol/L (136-145); Total Protein 5.4 gm/dL (5.7-8.2); eGFR 54 See Note
== END | disposition home or self-care (01) ==
PROVIDERS: PCP Internal Medicine
DX: J96.92 Respiratory failure, unspecified with hypercapnia (principal)
CPT/HCPCS: 36415; 80053; 82803

== ENCOUNTER 2025-03-14 15:27 | Inpatient (IN) | payer MEDICARE, SELFPAY ==
[2025-03-14] VITALS (8 sets, daily range): BP systolic 124–147; BP diastolic 71–96; PULSE 89–109; RESP 14–32; TEMP 36.7–37.4; O2SAT 98–100; BMI 37.8
--- NOTE | 2025-03-14 15:39 | EKG_ITS ---
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
--- NOTE | 2025-03-14 16:05 | PD.EDAMS ---
Altered Mental Status RME/HPI General Chief Complaint: Altered Mental Status Stated Complaint: ALTERED Time Seen by Provider: 03/14/25 15:41 Arrival date/time: 03/14/25 15:27 RME / HPI RME / HPI narrative: DR. BRUSH MAIN ED EVALUATION: 89-year-old female with past medical history of ILD/pulmonary fibrosis, chronic hypercapnic respiratory failure on home oxygen and BiPAP, HFpEF, recurrent UTIs (including Pseudomonas), hypothyroidism, type 2 diabetes, GERD, depression, and chronic back pain presents to the Emergency Department BIB from home with complaint of altered mental status. Per family, patient is normally altered like this when she has an UTI. Patient is unsure and does not have any specific complaints. Related Data Home Medications ?Medication ?Instructions ?Recorded ?Confirmed methenamine hippurate 1 gram tablet 1 g PO BID 04/18/20 03/15/25 omeprazole 40 mg capsule,delayed 40 mg PO QDAY 06/04/21 03/15/25 release rosuvastatin 5 mg tablet 5 mg PO HS 06/04/21 03/15/25 venlafaxine 150 mg 150 mg PO QDAY 06/04/21 03/15/25 capsule,extended release 24 hr ascorbic acid (vitamin C) 500 mg 500 mg PO BID 03/19/24 03/15/25 tablet (Vitamin C) aspirin 81 mg tablet 81 mg PO QDAY 03/19/24 03/15/25 calcium 600 mg (as 0.5 tab PO QDAY 12/27/24 03/15/25 carbonate)-vitamin D3 5 mcg (200 unit) tablet (Calcium 600 + D(3)) cranberry 500 mg capsule 1,000 mg PO QDAY 12/27/24 03/15/25 Held on 03/19/25. Instructions: resume with PCP hydrocodone 10 mg-acetaminophen 1 tab PO TID PRN pain 12/27/24 03/15/25 325 mg tablet lactobacillus comb no.10 20 25,000 mmu cells PO QDAY 12/27/24 03/15/25 billion cell capsule (Probiotic) pramipexole 0.5 mg tablet 1 mg PO HS 12/27/24 03/15/25 cranberry fruit concentrate 250 mg 500 mg PO QDAY 02/15/25 03/15/25 chewable tablet (Azo Cranberry) furosemide 40 mg tablet 40 mg PO QAM 02/15/25 03/15/25 Held on 03/19/25. Instructions: resume with pcp levothyroxine 100 mcg tablet 100 mcg PO QDAY 02/15/25 03/15/25 insulin aspart U-100 100 unit/mL 1 sliding scale dose subcut 03/15/25 03/15/25 (3 mL) subcutaneous pen (Novolog USEASDIRECTD PRN hyperglycemia FlexPen U-100 Insulin aspart) magnesium carb,citrate,oxide 80.5 mg PO QDAY 03/15/25 03/15/25 (Magnesium Complex) metformin 500 mg tablet 1,000 mg PO BID 03/15/25 03/15/25 Previous Rx's ?Medication ?Instructions ?Recorded metoprolol succinate 25 mg 25 mg PO QDAY #30 tabs 03/25/24 tablet,extended release 24 hr prednisone 10 mg tablet See Taper PO QDAY #360 tabs 02/11/25 acetazolamide 250 mg tablet 250 mg PO BID #60 tabs 02/22/25 Held on 03/19/25. Instructions: resume with PCP insulin glargine 100 unit/mL 15 unit (0.15 mL) subcut QAM 1 03/19/25 subcutaneous solution month #10 mL insulin lispro 100 unit/mL 6 unit (0.06 mL) subcut TID 1 03/19/25 subcutaneous solution month #10 mL Allergies Allergy/AdvReac Type Severity Reaction Status Date / Time cefuroxime Allergy Intermediate Swelling Verified 03/01/25 11:13 of Lip/Tongue/Throat zinc Allergy Intermediate Rash Verified 03/01/25 11:13 iodine Allergy Unknown Verified 03/01/25 11:13 shellfish derived Allergy Unknown Verified 03/01/25 11:13 Sulfa (Sulfonamide Allergy Unknown Verified 03/01/25 11:13 Antibiotics) Influenza Virus Vaccines Allergy Verified 03/01/25 11:13 Review of Systems Review of Systems Systems Reviewed: All systems reviewed, normal except as documented Past Medical History Past Medical History CARDIAC: Positive Cardiac Disorders, Coronary Artery Disease, Hypercholesterolemia, Congestive Heart Failure and Hypertension RESPIRATORY: Positive Chronic Obstructive Pulmonary Disease (COPD), Asthma, Pneumonia, Pulmonary Fibrosis and Sleep Apnea GASTROINTESTINAL: Positive Gastrointestinal Disorders, Gall Bladder Disease, Gastroesophageal Reflux Disease and Obesity GENITOURINARY: Positive Genitourinary Disorders and Kidney Stones REPRODUCTIVE: Positive Breast Cancer MUSCULOSKELETAL: Positive Musculoskeletal Disorders, Arthritis and Fractures; Negative Degenerative Joint Disease ENDOCRINE: Positive Endocrine Disorders, Diabetes Mellitus Type 2 and Hypothyroidism PSYCHO/SOCIAL: Positive Depression and Anxiety OTHER HISTORY: Positive Breast Cancer Family History FAMILY HISTORY: Positive Family Cardiac Disorders and Family Cancer Surgical History SURGICAL: Positive Tonsillectomy and Abdominal Surgery Social History SMOKING STATUS: Never smoker SECOND HAND EXPOSURE: No SUBSTANCE USE: does not use ALCOHOL: Never ED Exam Narrative Physical exam: GENERAL APPEARANCE: alert and oriented x 4, well-developed, well-nourished, no acute distress, slow to respond VITALS: All vitals were reviewed and the pulse ox is % on room air, which is normal according to my interpretation. HEENT: Normocephalic, atraumatic; pupils equal, round, reactive to light; EOMI; mucous membranes pink, moist; oropharynx clear NECK: Supple LUNGS: CTABL; no wheezes, no rales, no rhonchi HEART: Regular rate, regular rhythm; normal S1, S2; no murmurs ABDOMEN: non distended; normal BS; soft, no tenderness, no guarding, no rebound; no masses, no organomegaly, no hernia BACK: no CVA tenderness EXTREMITIES: atraumatic; no edema NEUROLOGIC: awake; slow to respond PSYCHIATRIC: appropriate mood and affect SKIN: warm, dry, normal color; no rashes Course Quality Measures none Orders Category Date Time Status Admit to Inpatient Status Routine Admission 03/15/25 15:42 Active Patient Condition Routine Admission 03/14/25 23:[address] in Observation Status Routine Admission 03/14/25 23:44 Active Bedside Blood Glucose ACHS Care 03/14/25 23:46 Completed Bedside Blood Glucose NOW Care 03/14/25 23:49 Completed Keg Header Q4H START 00 Care 03/14/25 16:07 Completed Continuous Pulse Oximetry NOW Care 03/14/25 23:46 Completed EKG (ED ONLY) *Do not use* NOW Care 03/14/25 15:39 Completed Flu & Pneumonia Vaccine Screen ONCE Care 03/14/25 23:46 Completed IV [Insert IV] NOW Care 03/14/25 16:12 Completed In and Out Catheter X1 Care 03/14/25 16:12 Completed Miscellaneous Nursing Order NOW Care 03/14/25 23:46 Completed Neuro Check Q4H Care 03/14/25 23:46 Completed Notify provider NEEDED Care 03/14/25 23:44 Completed Nurse Swallow Screen X1 Care 03/15/25 01:03 Completed Obtain weight 06 Care 03/14/25 23:46 Completed Strict Intake and Output Routine Care 03/14/25 23:46 Ordered Referral Haley Routine Cons 03/15/25 06:33 Active Referral Physical Therapy Routine Cons 03/15/25 08:00 Completed Diet Cardiac Diet 03/15/25 Breakfast Completed EKG (ED Only) Stat Exams 03/14/25 15:39 Draft XR chest 1V portable Stat Exams 03/14/25 16:07 Completed ABG [Arterial Blood Gas] Stat Lab 03/14/25 18:04 Completed B-Type Natriuretic Peptide Stat Lab 03/14/25 15:55 Completed Blood Culture (Lab) Stat Lab 03/14/25 16:16 Completed CBC AM DRAW Lab 03/15/25 09:22 Completed CBC AM DRAW Lab 03/16/25 04:08 Completed CBC AM DRAW Lab 03/17/25 04:31 Completed CBC Stat Lab 03/14/25 15:55 Completed Comprehensive Metabolic Panel AM DRAW Lab 03/15/25 06:57 Completed Comprehensive Metabolic Panel AM DRAW Lab 03/16/25 04:08 Completed Comprehensive Metabolic Panel AM DRAW Lab 03/17/25 04:31 Completed Comprehensive Metabolic Panel Stat Lab 03/14/25 15:55 Completed Lactate (Lactic Acid) Stat Lab 03/14/25 15:55 Completed Lactic Acid, 3 HR Stat Lab 03/14/25 19:30 Completed Lipase Stat Lab 03/14/25 15:55 Completed MRSA Nasal Screen Routine Lab 03/15/25 18:00 Completed Magnesium Stat Lab 03/14/25 15:55 Completed Partial Thromboplastin Time Stat Lab 03/14/25 15:55 Completed Procalcitonin Stat Lab 03/14/25 15:55 Completed Prothrombin Time with INR Stat Lab 03/14/25 15:55 Completed Renal Function Panel Stat Lab 03/14/25 23:51 Completed Troponin I Stat Lab 03/14/25 15:55 Completed UA, C/S IF [Urinalysis, C/S if Indicated] Stat Lab 03/14/25 15:55 Completed Urine Culture Stat Lab 03/14/25 15:55 Completed VBG [Venous Blood Gas] Stat Lab 03/14/25 22:28 Completed ACETAzolaMIDE [Diamox] Med 03/15/25 09:00 Discontinued 250 mg PO BID Acetaminophen Tab [Tylenol Tab] Med 03/14/25 23:46 Discontinued 650 mg PO Q6H PRN Calcium Gluconate 10% Inj Med 03/15/25 08:31 Discontinued 1 gm IV X1 ONE Dextrose 50% Syr [D50w Syringe Abboject] Med 03/14/25 23:46 Discontinued 25 ml IV Q15MIN PRN Dextrose 50% Syr [D50w Syringe Abboject] Med 03/14/25 23:46 Discontinued 50 ml IV Q15MIN PRN Dextrose 50% Syr [D50w Syringe Abboject] Med 03/15/25 08:31 Discontinued 50 ml IV X1 ONE Dextrose 50% Syr [D50w Syringe Abboject] Med 03/15/25 01:02 Discontinued 50 ml IVP X1 ONE Furosemide Inj [Lasix Inj] Med 03/15/25 09:00 Discontinued 40 mg IVP QDAY Glucagon Inj Med 03/14/25 23:46 Discontinued 1 mg IM Q15MIN PRN Heparin Inj Med 03/15/25 09:00 Discontinued 5,000 unit SC Q12HR INSULIN LISPRO (AdmeLOG) [HumaLOG] Med 03/15/25 07:30 Discontinued See Protocol SC ACHS Insulin Regular Med 03/14/25 23:49 Discontinued 5 unit IV X1 ONE Insulin Regular Med 03/15/25 01:02 Discontinued 5 unit IV X1 ONE Insulin Regular Med 03/15/25 08:31 Discontinued 5 unit IV X1 ONE Levalbuterol Rt [Xopenex Rt Sravani] Med 03/15/25 00:00 Discontinued 0.63 mg INH Q6HR Levofloxacin/D5w 500 mg Ivpb [Levaquin Ivpb] Med 03/14/25 20:23 Discontinued 500 mg in 100 ml IV X1 Levofloxacin/D5w 500 mg Ivpb [Levaquin Ivpb] Med 03/14/25 22:49 Discontinued 500 mg in 100 ml IV X1 Levothyroxine Sodium [Synthroid] Med 03/15/25 06:00 Discontinued 100 mcg PO ACBR Magnesium Sulfate 2 GM Ivpb [Magnesium Sulfate Ivpb] Med 03/14/25 18:07 Discontinued 2 gm in 50 ml IV X1 Magnesium Sulfate 2 GM Ivpb [Magnesium Sulfate Ivpb] Med 03/14/25 23:50 Discontinued 2 gm in 50 ml IV X1 Ondansetron Inj [Zofran Inj] Med 03/14/25 23:46 Discontinued 4 mg IVP Q6H PRN Piper/Tazo 3.375 gm Premix [Zosyn] Med 03/15/25 08:33 Discontinued 3.375 gm in 50 ml IV Q8HR Prednisone Med 03/15/25 12:00 Discontinued 30 mg PO QDAY Senna [Senokot] Med 03/15/25 09:00 Discontinued 1 tab PO QDAY Sod Polystyrene Sulfon Susp [Kayexalate Susp] Med 03/15/25 08:31 Discontinued 30 gm PO X1 ONE Code Status Routine Oth 03/14/25 23:44 Completed BiPAP / CPAP NEEDED RT 03/14/25 18:30 Completed BiPAP / CPAP NOW RT 03/14/25 23:46 Completed Oxygen Delivery PRN RT 03/15/25 13:12 Completed Referral Sales Demonstrator NOW 03/15/25 07:25 Completed Vital Signs Vital signs: Vital Signs Temperature 99.0 F 03/14/25 15:28 Pulse Rate 98 03/14/25 15:28 Respiratory Rate 20 03/14/25 15:28 Blood Pressure 124/75 03/14/25 15:28 Pulse Oximetry (%) 99 03/14/25 15:28 Oxygen Delivery Method Nasal Cannula 03/14/25 15:28 Oxygen Flow Rate 4 03/14/25 15:28 Altered Mental Status MDM Narrative MDM Narrative:: I, Matilde Wills, am scribing for and in the presence of Dr. Brush. Patient data External records reviewed:: [facility] previous records Clinical information provided by:: patient, EMS and family Social determinants that could affect healthcare access:: none Patient has the following chronic illnesses:: ILD/pulmonary fibrosis, chronic hypercapnic respiratory failure on home oxygen and BiPAP, HFpEF, recurrent UTIs (including Pseudomonas), hypothyroidism, type 2 diabetes, GERD, depression, and chronic back pain How is presenting disease/condition affected by chronic disease/condition?: exacerbated by Evaluation data The following diagnostics were reviewed and interpreted by me:: lab results, radiology exam(s) and EKG tracing(s) Lab and/or radiology exams considered but not ordered:: none Interpretation Summary: My interpretation: EKG performed at 1540 hours, sinus tachycardia, rate 102, right bundle branch block that is not new, no acute ischemic changes Procedure(s): XR chest 1V portable Accession Number(s): [id number] cc: Christian Cárdenas MD; NO PRIMARY/FAMILY,PHYSICIAN; Kristen Brush MD~ Examination: AP chest single view Technique one AP portable upright chest single view Date and time: March 14, 2025 1618 hours Comparison February 17, 2025 INDICATIONS: Chest pain today. FINDINGS: Mild heart failure Mild enlargement cardiac contour. Prominent vascular congestion with perihilar edema Prominent central pulmonary arteries Prominent osteopenia IMPRESSION: Mild heart failure Pulmonary artery hypertension pattern Dictated By: Christian Cárdenas MD Medications / Prescriptions Medications or Prescriptions considered but not ordered:: none Medication administrations:: Medication Administration History Discontinued Medications Acetaminophen (Acetaminophen 325 Mg Tablet) 650 mg PO Q6H PRN PRN Reason: PAIN SCALE 1-3 (mild Stop: 04/13/25 23:45 Last Admin: 03/17/25 00:47 Dose: 650 mg Documented By: CG Acetazolamide (Acetazolamide 250 Mg Tablet) 250 mg PO BID [facility] Stop: 04/14/25 08:59 Calcium Gluconate (Calcium Gluconate 10% Inj 1 Gm/10 Ml Vial) 1 gm IV X1 ONE Stop: 03/15/25 08:32 Last Admin: 03/15/25 12:29 Dose: Not Given Documented By: TD Non-Admin Reason: per team during rounds Dextrose (Dextrose 50%-Water Inj 50 Ml Syringe) 25 ml IV Q15MIN PRN PRN Reason: BG 50-70 responsive npo pt Stop: 04/13/25 23:45 Dextrose (Dextrose 50%-Water Inj 50 Ml Syringe) 50 ml IV Q15MIN PRN PRN Reason: BG <50 OR BG <70 & pt unresponsive Stop: 04/13/25 23:45 Dextrose (Dextrose 50%-Water Inj 50 Ml Syringe) 50 ml IVP X1 ONE Stop: 03/15/25 01:03 Last Admin: 03/15/25 03:25 Dose: 50 ml Documented By: CURT Dextrose (Dextrose 50%-Water Inj 50 Ml Syringe) 50 ml IV X1 ONE Stop: 03/15/25 08:32 Last Admin: 03/15/25 12:29 Dose: Not Given Documented By: TASHIA Non-Admin Reason: per team during rounds Furosemide (Furosemide Inj 10 Mg/Ml 4ml Vial) 40 mg IVP QDAY [facility] Stop: 04/14/25 08:59 Last Admin: 03/18/25 09:08 Dose: 40 mg Documented By: Admin: 03/17/25 08:41 Dose: 40 mg Documented By: Admin: 03/16/25 09:19 Dose: 40 mg Documented By: Admin: 03/15/25 10:53 Dose: 40 mg Documented By: TASHIA Glucagon (Glucagon Inj 1 Mg Vial) 1 mg IM Q15MIN PRN PRN Reason: BG <70, and no IV access Heparin Sodium (Porcine) (Heparin Sod Inj 5000 Unit/Ml Vial) 5,000 unit SC Q12HR [facility] Stop: 03/29/25 08:59 Last Admin: 03/19/25 09:38 Dose: Not Given Documented By: FILOMENA Non-Admin Reason: Pending labs Admin: 03/18/25 21:15 Dose: 5,000 unit Documented By: CAYDEN Co-signed By: ALCIDES Admin: 03/18/25 09:08 Dose: 5,000 unit Documented By: HERO Co-signed By: JUDIT Admin: 03/17/25 21:36 Dose: 5,000 unit Documented By: NATHAN Co-signed By: ANTON Admin: 03/17/25 08:41 Dose: 5,000 unit Documented By: HERO Co-signed By: FRANCIS Admin: 03/16/25 20:13 Dose: 5,000 unit Documented By: CAYDEN Co-signed By: ANTON Admin: 03/16/25 09:18 Dose: 5,000 unit Documented By: FRANCIS Co-signed By: FILOMENA Admin: 03/15/25 20:09 Dose: 5,000 unit Documented By: NATHAN Co-signed By: MICHAEL Admin: 03/15/25 10:55 Dose: 5,000 unit Documented By: TASHIA Co-signed By: MR Magnesium Sulfate (Magnesium Sulfate Ivpb) 2 gm in 50 mls @ 25 mls/hr IV X1 ONE Stop: 03/14/25 20:06 Last Infusion: 03/14/25 20:26 Dose: Infused Documented By: Admin: 03/14/25 18:26 Dose: 25 mls/hr Documented By: MARIBEL Levofloxacin/Dextrose (Levaquin Ivpb) 500 mg in 100 mls @ 100 mls/hr IV X1 ONE Stop: 03/14/25 21:22 Last Infusion: 03/14/25 22:09 Dose: Infused Documented By: Admin: 03/14/25 20:56 Dose: 100 mls/hr Documented By: BRIAN Levofloxacin/Dextrose (Levaquin Ivpb) 500 mg in 100 mls @ 100 mls/hr IV X1 ONE Stop: 03/14/25 23:48 Last Admin: 03/15/25 00:16 Dose: Not Given Documented By: CURT Non-Admin Reason: Duplicate Medication on eMAR Magnesium Sulfate (Magnesium Sulfate Ivpb) 2 gm in 50 mls @ 25 mls/hr IV X1 ONE Stop: 03/15/25 01:49 Last Admin: 03/15/25 00:25 Dose: 25 mls/hr Documented By: CURT Piperacillin/Tazobactam/Dextrose (Zosyn) 3.375 gm in 50 mls @ 12.5 mls/hr IV Q8HR [facility]; Protocol Stop: 03/22/25 08:32 Last Admin: 03/19/25 14:45 Dose: Not Given Documented By: FILOMENA Non-Admin Reason: Patient Refused Admin: 03/19/25 05:39 Dose: 12.5 mls/hr Documented By: Infusion: 03/19/25 01:15 Dose: Infused Documented By: Admin: 03/18/25 21:15 Dose: 12.5 mls/hr Documented By: Infusion: 03/18/25 17:21 Dose: Infused Documented By: Admin: 03/18/25 13:21 Dose: 12.5 mls/hr Documented By: Infusion: 03/18/25 09:45 Dose: Infused Documented By: Admin: 03/18/25 05:45 Dose: 12.5 mls/hr Documented By: Infusion: 03/18/25 01:33 Dose: Infused Documented By: Admin: 03/17/25 21:33 Dose: 12.5 mls/hr Documented By: Infusion: 03/17/25 17:24 Dose: Infused Documented By: Admin: 03/17/25 13:24 Dose: 12.5 mls/hr Documented By: [email or web address] Infusion: 03/17/25 09:02 Dose: Infused Documented By: [email or web address] Admin: 03/17/25 05:02 Dose: 12.5 mls/hr Documented By: Infusion: 03/17/25 01:02 Dose: Infused Documented By: Admin: 03/16/25 21:02 Dose: 12.5 mls/hr Documented By: Infusion: 03/16/25 18:25 Dose: Infused Documented By: Admin: 03/16/25 14:25 Dose: 12.5 mls/hr Documented By: Infusion: 03/16/25 09:49 Dose: Infused Documented By: Admin: 03/16/25 05:49 Dose: 12.5 mls/hr Documented By: Infusion: 03/16/25 01:28 Dose: Infused Documented By: Admin: 03/15/25 21:28 Dose: 12.5 mls/hr Documented By: Infusion: 03/15/25 14:55 Dose: Infused Documented By: Admin: 03/15/25 13:16 Dose: Not Given Documented By: TD Non-Admin Reason: current first dose infusing Admin: 03/15/25 10:55 Dose: 12.5 mls/hr Documented By: TASHIA Lactated Ringer's (Lactated Ringers) 500 mls @ 999 mls/hr IV .Q31M ONE Stop: 03/18/25 11:35 Last Admin: 03/18/25 11:21 Dose: 999 mls/hr Documented By: HERO Lactated Ringer's (Lactated Ringers) 500 mls @ 999 mls/hr IV .Q31M ONE Stop: 03/18/25 15:18 Last Admin: 03/18/25 15:54 Dose: 999 mls/hr Documented By: HERO Insulin Glargine (Insulin Glargine (Lantus) 5 Unit/0.05 Ml (Per 5 Units)) 5 unit SC X1 ONE Stop: 03/16/25 08:39 Last Admin: 03/16/25 09:19 Dose: 5 unit Documented By: FRANCIS Co-signed By: FILOMENA Insulin Glargine (Insulin Glargine (Lantus) 5 Unit/0.05 Ml (Per 5 Units)) 5 unit SC X1 ONE Stop: 03/16/25 21:01 Last Admin: 03/16/25 20:13 Dose: 5 unit Documented By: CG Co-signed By: ANTON Insulin Glargine (Insulin Glargine (Lantus) 5 Unit/0.05 Ml (Per 5 Units)) 10 unit SC QDAY [facility] Stop: 04/16/25 08:59 Last Admin: 03/17/25 09:54 Dose: 10 unit Documented By: HERO Co-signed By: FRANCIS Insulin Glargine (Insulin Glargine (Lantus) 5 Unit/0.05 Ml (Per 5 Units)) 10 unit SC HS [facility] Stop: 04/16/25 21:44 Last Admin: 03/17/25 21:47 Dose: 10 unit Documented By: NATHAN Co-signed By: ANTON Insulin Glargine (Insulin Glargine (Lantus) 5 Unit/0.05 Ml (Per 5 Units)) 5 unit SC X1 ONE Stop: 03/18/25 09:08 Last Admin: 03/18/25 10:16 Dose: 5 unit Documented By: HERO Co-signed By: LOVE Insulin Glargine (Insulin Glargine (Lantus) 5 Unit/0.05 Ml (Per 5 Units)) 15 unit SC HS [facility] Stop: 04/17/25 20:59 Insulin Glargine (Insulin Glargine (Lantus) 5 Unit/0.05 Ml (Per 5 Units)) 10 unit SC HS [facility] Stop: 04/17/25 20:59 Last Admin: 03/18/25 21:14 Dose: 10 unit Documented By: CAYDEN Co-signed By: ALCIDES Insulin Human Lispro (Insulin Lispro (Admelog) 1 Unit/0.01 Ml Unit) 0 unit SC ACHS [facility]; Protocol Stop: 04/14/25 07:29 Last Admin: 03/16/25 09:18 Dose: 1 unit Documented By: FRANCIS Co-signed By: FILOMENA Admin: 03/15/25 20:09 Dose: 4 unit Documented By: CM Co-signed By: CP Admin: 03/15/25 18:00 Dose: 1 unit Documented By: TD Co-signed By: LT Admin: 03/15/25 11:41 Dose: Not Given Documented By: TD Non-Admin Reason: Per Protocol Admin: 03/15/25 07:44 Dose: Not Given Documented By: TD Non-Admin Reason: Per Protocol Insulin Human Lispro (Insulin Lispro (Admelog) 1 Unit/0.01 Ml Unit) 0 unit SC ACHS [facility]; Protocol Stop: 04/14/25 07:29 Last Admin: 03/17/25 11:42 Dose: 5 unit Documented By: HERO Co-signed By: FRANCIS Admin: 03/17/25 07:50 Dose: 2 unit Documented By: HERO Co-signed By: FRANCIS Admin: 03/16/25 20:13 Dose: 5 unit Documented By: CAYDEN Co-signed By: ANTON Admin: 03/16/25 18:04 Dose: 5 unit Documented By: FRANCIS Co-signed By: FILOMENA Admin: 03/16/25 12:53 Dose: 3 unit Documented By: FRANCIS Co-signed By: FILOMENA Insulin Human Lispro (Insulin Lispro (Admelog) 1 Unit/0.01 Ml Unit) 3 unit SC TIDWM [facility] Stop: 04/16/25 17:29 Last Admin: 03/18/25 07:33 Dose: 3 unit Documented By: HERO Co-signed By: JUDIT Admin: 03/17/25 17:42 Dose: 3 unit Documented By: HERO Co-signed By: FRANCIS Insulin Human Lispro (Insulin Lispro (Admelog) 1 Unit/0.01 Ml Unit) 0 unit SC AC [facility]; Protocol Stop: 04/16/25 16:59 Last Admin: 03/18/25 17:41 Dose: 5 unit Documented By: HERO Co-signed By: JUDIT Admin: 03/18/25 12:39 Dose: 4 unit Documented By: HERO Co-signed By: JUDIT Admin: 03/18/25 07:33 Dose: 2 unit Documented By: HERO Co-signed By: JUDIT Admin: 03/17/25 17:42 Dose: 5 unit Documented By: HERO Co-signed By: FRANCIS Insulin Human Lispro (Insulin Lispro (Admelog) 1 Unit/0.01 Ml Unit) 4 unit SC TIDWM [facility] Stop: 04/17/25 11:59 Last Admin: 03/18/25 12:39 Dose: 4 unit Documented By: HERO Co-signed By: JUDIT Insulin Human Lispro (Insulin Lispro (Admelog) 1 Unit/0.01 Ml Unit) 6 unit SC TIDWM [facility] Stop: 04/17/25 17:29 Last Admin: 03/19/25 11:19 Dose: 6 unit Documented By: FILOMENA Co-signed By: FAVIAN Admin: 03/19/25 07:43 Dose: 6 unit Documented By: FILOMENA Co-signed By: TASHIA Admin: 03/18/25 17:38 Dose: 6 unit Documented By: HERO Co-signed By: JUDIT Insulin Human Lispro (Insulin Lispro (Admelog) 1 Unit/0.01 Ml Unit) 0 unit SC AC [facility]; Protocol Stop: 04/16/25 16:59 Insulin Human Lispro (Insulin Lispro (Admelog) 1 Unit/0.01 Ml Unit) 0 unit SC ACHS [facility]; Protocol Stop: 04/17/25 20:59 Last Admin: 03/19/25 11:19 Dose: 3 unit Documented By: FILOMENA Co-signed By: FAVIAN Admin: 03/19/25 07:44 Dose: 3 unit Documented By: FILOMENA Co-signed By: TASHIA Admin: 03/18/25 21:15 Dose: 5 unit Documented By: CAYDEN Co-signed By: ALCIDES Insulin Human Regular (Insulin Hum Regular 1 Unit/0.01 Ml (Per Unit)) 5 unit IV X1 ONE Stop: 03/14/25 23:50 Last Admin: 03/15/25 00:34 Dose: Not Given Documented By: CURT Non-Admin Reason: Other, see note Insulin Human Regular (Insulin Hum Regular 1 Unit/0.01 Ml (Per Unit)) 5 unit IV X1 ONE Stop: 03/15/25 01:03 Last Admin: 03/15/25 03:24 Dose: 5 unit Documented By: CURT Co-signed By: RAKESH Insulin Human Regular (Insulin Hum Regular 1 Unit/0.01 Ml (Per Unit)) 5 unit IV X1 ONE Stop: 03/15/25 08:32 Last Admin: 03/15/25 12:29 Dose: Not Given Documented By: TD Non-Admin Reason: per team during rounds Levalbuterol HCl (Levalbuterol Rt 0.63 Mg/3 Ml Nebu) 0.63 mg INH Q6HR [facility] Stop: 04/14/25 00:00 Last Admin: 03/19/25 12:49 Dose: 0.63 mg Documented By: Admin: 03/19/25 06:09 Dose: 0.63 mg Documented By: Admin: 03/19/25 00:18 Dose: 0.63 mg Documented By: Admin: 03/18/25 19:07 Dose: 0.63 mg Documented By: Admin: 03/18/25 12:45 Dose: 0.63 mg Documented By: Admin: 03/18/25 06:45 Dose: 0.63 mg Documented By: Admin: 03/18/25 01:39 Dose: 0.63 mg Documented By: ALCIDES(2) Admin: 03/17/25 19:36 Dose: 0.63 mg Documented By: ALCIDES(2) Admin: 03/17/25 13:39 Dose: 0.63 mg Documented By: Admin: 03/17/25 06:37 Dose: 0.63 mg Documented By: Admin: 03/17/25 00:36 Dose: 0.63 mg Documented By: ALCIDES(2) Admin: 03/16/25 18:33 Dose: 0.63 mg Documented By: ALCIDES(2) Admin: 03/16/25 13:54 Dose: 0.63 mg Documented By: Admin: 03/16/25 06:43 Dose: 0.63 mg Documented By: Admin: 03/16/25 00:49 Dose: 0.63 mg Documented By: JOSE ANGEL Admin: 03/15/25 18:26 Dose: 0.63 mg Documented By: JOSE ANGEL Admin: 03/15/25 12:57 Dose: 0.63 mg Documented By: Admin: 03/15/25 06:56 Dose: 0.63 mg Documented By: Admin: 03/15/25 00:19 Dose: 0.63 mg Documented By: ALCIDES(2) Levothyroxine Sodium (Levothyroxine Sodium 100 Mcg Tablet) 100 mcg PO ACBR LISETTE Stop: 04/14/25 05:59 Last Admin: 03/19/25 05:39 Dose: 100 mcg Documented By: Admin: 03/18/25 05:45 Dose: 100 mcg Documented By: Admin: 03/17/25 05:02 Dose: 100 mcg Documented By: Admin: 03/16/25 05:49 Dose: 100 mcg Documented By: Admin: 03/15/25 06:21 Dose: Not Given Documented By: MICHAEL Non-Admin Reason: NPO Ondansetron HCl (Ondansetron Inj 2 Mg/Ml Inj 2 Ml) 4 mg IVP Q6H PRN; Protocol PRN Reason: NAUSEA OR VOMITING Stop: 04/13/25 23:45 Pantoprazole Sodium (Pantoprazole Inj 40 Mg Vial) 40 mg IVP QDAY [facility]TE Stop: 04/16/25 16:59 Last Admin: 03/19/25 08:54 Dose: 40 mg Documented By: Admin: 03/18/25 09:09 Dose: 40 mg Documented By: Admin: 03/17/25 17:41 Dose: 40 mg Documented By: HERO Prednisone 20 mg/ Prednisone (10 mg) 30 mg PO QDAY [facility]TE Stop: 04/14/25 11:59 Last Admin: 03/19/25 08:54 Dose: 30 mg Documented By: Admin: 03/18/25 09:09 Dose: 30 mg Documented By: Admin: 03/17/25 08:41 Dose: 30 mg Documented By: Admin: 03/16/25 09:18 Dose: 30 mg Documented By: Admin: 03/15/25 13:15 Dose: 30 mg Documented By: TASHIA Sennosides (Senna Tablet) 1 tab PO QDAY LISETTE; Protocol Stop: 04/14/25 08:59 Last Admin: 03/19/25 08:55 Dose: Not Given Documented By: FILOMENA Non-Admin Reason: Patient Refused Admin: 03/18/25 09:09 Dose: 1 tab Documented By: Admin: 03/17/25 08:40 Dose: 1 tab Documented By: Admin: 03/16/25 09:21 Dose: 1 tab Documented By: Admin: 03/15/25 10:46 Dose: Not Given Documented By: TASHIA Non-Admin Reason: pt on bipap Sodium Polystyrene Sulfonate (Sod Polystyrene Sulfon Susp 15 Gm/60 Ml Btl) 30 gm PO X1 ONE Stop: 03/15/25 08:32 Last Admin: 03/15/25 13:14 Dose: 30 gm Documented By: TASHIA Comments: pt now off bipap see above if any Consultations Consultation(s) initiated? (list below): No Diagnosis Differential diagnosis altered mental status: other (UTI, metabolic encephalopathy, and acute on chronic respiratory failure) Most likely diagnosis given after review of the tests above:: No official diagnoses at this time, still pending diagnostic tests. Patient signout to the scheduling representative provider. Admission Indicated Admission indicated?: not indicated Explain why admission is indicated or not indicated:: No final disposition plan at this time, still pending diagnostic tests. Patient signout to the scheduling representative provider. Admission Request Was there a request for admission?: No Disposition Plan Disposition Plan: other (specify) (Patient signed out to Dr. North.) Discharge Plan Problem List Clinical Impression: Altered mental status Discharge Order Discharge Orders: Discharge (Routine); Ordered 03/19/25 Ordered By: Liborio Aguila
[2025-03-14 16:17] LABS: Collection Type, Urine Catheter
[2025-03-14 16:18] LABS: Lactate (Lactic Acid) 3.9 mMol/L (0.4-2.0)
[2025-03-14 16:28] LABS: Basophils # (Auto) 0.1 Thou/mm3 (0.0-0.2); Basophils % (Auto) 1 % (0-2.5); Eosinophils # (Auto) 0.0 Thou/mm3 (0.0-0.5); Eosinophils % (Auto) 0 % (0-10); Hematocrit 36.1 % (36.0-46.0); Hemoglobin 10.5 g/dL (12.0-16.0); Immature Granulocytes Auto 0.30 Thou/mm3 (0.00-0.00); Lymphocytes # (Auto) 0.5 Thou/mm3 (1.0-4.8); Lymphocytes % (Auto) 4 % (10-50); Mean Corpuscular HGB Conc 29.1 g/dl (31.0-37.0); Mean Corpuscular Hemoglobin 28.6 pg (25.0-35.0); Mean Corpuscular Volume 98 fL (80-100); Monocytes # (Auto) 0.4 Thou/mm3 (0.0-0.8); Monocytes % (Auto) 3 % (0-12); Neutrophils # (Auto) 11.0 Thou/mm3 (1.8-7.7); Neutrophils % (Auto) 90 % (37-80); Nucleated Red Blood Cell # 0.00 Thou/mm3 (0.00-0.00); Nucleated Red Blood Cell % 0 /100 WBC (0); Platelet Count 239 Thou/mm3 (140-440); RDW Standard Deviation 63.1 fL (36.4-46.3); Red Blood Count 3.67 Miln/mm3 (4.00-5.20); White Blood Count 12.3 Thou/mm3 (3.6-11.0)
[2025-03-14 16:48] LABS: Alanine Aminotransferase 27 U/L (10-49); Albumin, Serum 3.5 gm/dL (3.4-4.8); Albumin/Globulin Ratio 1.8 (1.2-2.2); Alkaline Phosphatase 72 U/L (46-116); Anion Gap 6 (7-16); Aspartate Amino Transferase 14 U/L (0-34); BUN/Creatinine Ratio 27 Ratio (12-20); Bilirubin,Total 0.2 mg/dL (0.3-1.2); Blood Urea Nitrogen 30 mg/dL (9-23); Calcium 10.0 mg/dL (8.3-10.6); Calcium (Corrected) 10.4 mg/dL (8.5-10.1); Carbon Dioxide 34.5 mMol/L (20.0-31.0); Chloride 105 mMol/L (98-107); Creatinine (Component) 1.1 mg/dL (0.6-1.3); Estimated Creatinine Clearance 40.6 mL/min (>60); Globulin 2.0 gm/dL (2.3-3.5); Glucose 289 mg/dL (74-106); INR 0.9 (0.9-1.3); Lipase 19 U/L (12-53); Magnesium 1.5 mg/dL (1.6-2.6); Osmolality,Calculated 305 (275-295); Partial Thromboplastin Time 20.5 Seconds (22.0-36.0); Potassium 5.5 mMol/L (3.4-5.1); Procalcitonin 0.09 ng/ml (0.0-0.49); Prothrombin Time 10.3 Seconds (9.0-12.2); Sodium 145 mMol/L (136-145); Total Protein 5.5 gm/dL (5.7-8.2); Troponin I < 0.020 ng/mL (0.0-0.045); eGFR 48 See Note
[2025-03-14 16:57] LABS: B-Type Natriuretic Peptide 141 pg/mL (0-100)
[2025-03-14 17:54] LABS: Bilirubin,Urine Negative (Negative); Blood,Urine Negative (Negative); Budding Yeast,Urine Present; Clarity,Urine Turbid (Clear/Hazy); Color,Urine Lt-Yellow (Lt Yel-Yel); Glucose, Urine 3+ (Negative); Ketones,Urine Negative (Negative); Leukocyte Esterase,Urine Positive (Negative); Nitrite,Urine Negative (Negative); PH,Urine 5.5 (5.0-7.0); Protein,Urine Trace (Neg - Trace); RBC,Urine 13 /hpf (0-3); Specific Gravity,Urine 1.022 (1.001-1.035); Squamous Epithelial Cell,Urine 3 /hpf (0-5); Urobilinogen,Urine Negative mg/dL (0.0-1.0); WBC,Urine 249 /hpf (0-5)
[2025-03-14 18:00] LABS: Culture Indicated,Urine Yes
[2025-03-14 18:12] LABS: Allen Test Performed/OK; Base Excess 8 (-3-3); HCO3 36 mEq/L (20-26); Inspired O2, VO2 Liters 3 L/min; O2 Saturation 99 % (91-98); PCO2 67 mmHg (32.0-48.0); PO2 132 mmHg (83-108); Puncture Site Right Radial; pH, Arterial 7.33 (7.35-7.45)
[2025-03-14] MEDS: Magnesium Sulfate 2 GM Ivpb 2 GM/50 ML BAG IV (18:26)
--- NOTE | 2025-03-14 18:38 | PD.EDADDENDU ---
Emergency Room Addendum Addendum Narrative: 1800: Care assumed from Dr. Brush (emergency physician). Past medical, surgical, social and family history reviewed. Vitals and home medications reviewed. Results and treatment plan discussed. I will assume the care of the patient at this time and will follow the patient, pending Magnesium IV treatment. The following addendum documentation note is intended to reflect any pending information, findings, or radiology results not included in the patient?s initial chart by the previous shift scribe. 2250: Hospitalist team made aware of the patient?s HPI, PMHx, lab and/or radiology results. Treatment plan was discussed. Will admit for further evaluation and management. Accepts patient for admission.
[2025-03-14 19:15] LABS: Reflex Lactate? Y
[2025-03-14 19:37] LABS: Lactic Acid, 3 HR 2.0 mMol/L (0.4-2.0)
[2025-03-14] MEDS: LEVOFLOXACIN/D5W 500 MG IVPB 500 MG/100 ML BAG 100 MG IV (20:56)
[2025-03-14 22:32] LABS: Base Excess, Venous 11 (-3-3); O2 Saturation, Venous 88 % (96-97); PCO2, Venous 50 mmHg (36-56); PO2, Venous 48 mmHg (15-58); pH, Venous 7.46 (7.33-7.66)
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
[2025-03-15] VITALS (13 sets, daily range): BP systolic 119–158; BP diastolic 68–100; PULSE 75–118; RESP 14–30; TEMP 36.1–36.8; O2SAT 93–100
[2025-03-15] MEDS: LEVALBUTEROL RT 0.63 MG/3 ML NEBU INH ×4 (00:19→18:26)
[2025-03-15] MEDS: Magnesium Sulfate 2 GM Ivpb 2 GM/50 ML BAG IV (00:25)
[2025-03-15 00:35] LABS: Albumin, Serum 3.6 gm/dL (3.4-4.8); Anion Gap 4 (7-16); BUN/Creatinine Ratio 31 Ratio (12-20); Blood Urea Nitrogen 28 mg/dL (9-23); Calcium 9.8 mg/dL (8.3-10.6); Calcium (Corrected) 10.1 mg/dL (8.5-10.1); Carbon Dioxide 38.5 mMol/L (20.0-31.0); Chloride 105 mMol/L (98-107); Creatinine (Component) 0.9 mg/dL (0.6-1.3); Estimated Creatinine Clearance 50.0 mL/min (>60); Glucose 149 mg/dL (74-106); Osmolality,Calculated 300 (275-295); Phosphorous 3.9 mg/dL (2.4-5.1); Potassium 5.4 mMol/L (3.4-5.1); Sodium 147 mMol/L (136-145); eGFR > 60 See Note
[2025-03-15] MEDS: INSULIN HUM REGULAR 1 UNIT/0.01 ML (PER UNIT) 5 UNIT IV (03:24)
[2025-03-15] MEDS: DEXTROSE 50%-WATER INJ 50 ML SYRINGE IVP (03:25)
--- NOTE | 2025-03-15 06:21 | PC.NURSE ---
Patient on Bipap, so Dr. Benitez stated to not do swallow eval at this time and to not give 0600 oral thyroid med.
[2025-03-15 07:54] LABS: Alanine Aminotransferase 24 U/L (10-49); Albumin, Serum 3.5 gm/dL (3.4-4.8); Albumin/Globulin Ratio 1.8 (1.2-2.2); Alkaline Phosphatase 53 U/L (46-116); Anion Gap 6 (7-16); Aspartate Amino Transferase 17 U/L (0-34); BUN/Creatinine Ratio 29 Ratio (12-20); Bilirubin,Total 0.3 mg/dL (0.3-1.2); Blood Urea Nitrogen 23 mg/dL (9-23); Calcium 9.7 mg/dL (8.3-10.6); Calcium (Corrected) 10.1 mg/dL (8.5-10.1); Carbon Dioxide 37.2 mMol/L (20.0-31.0); Chloride 103 mMol/L (98-107); Creatinine (Component) 0.8 mg/dL (0.6-1.3); Estimated Creatinine Clearance 54.1 mL/min (>60); Globulin 2.0 gm/dL (2.3-3.5); Glucose 90 mg/dL (74-106); Osmolality,Calculated 294 (275-295); Potassium 5.6 mMol/L (3.4-5.1); Sodium 146 mMol/L (136-145); Total Protein 5.5 gm/dL (5.7-8.2); eGFR > 60 See Note
[2025-03-15 09:45] LABS: Basophils # (Auto) 0.1 Thou/mm3 (0.0-0.2); Basophils % (Auto) 0 % (0-2.5); Eosinophils # (Auto) 0.2 Thou/mm3 (0.0-0.5); Eosinophils % (Auto) 2 % (0-10); Hematocrit 39.5 % (36.0-46.0); Hemoglobin 11.8 g/dL (12.0-16.0); Immature Granulocytes Auto 0.23 Thou/mm3 (0.00-0.00); Lymphocytes # (Auto) 1.7 Thou/mm3 (1.0-4.8); Lymphocytes % (Auto) 15 % (10-50); Mean Corpuscular HGB Conc 29.9 g/dl (31.0-37.0); Mean Corpuscular Hemoglobin 29.1 pg (25.0-35.0); Mean Corpuscular Volume 98 fL (80-100); Monocytes # (Auto) 0.6 Thou/mm3 (0.0-0.8); Monocytes % (Auto) 6 % (0-12); Neutrophils # (Auto) 8.8 Thou/mm3 (1.8-7.7); Neutrophils % (Auto) 75 % (37-80); Nucleated Red Blood Cell # 0.00 Thou/mm3 (0.00-0.00); Nucleated Red Blood Cell % 0 /100 WBC (0); Platelet Count 188 Thou/mm3 (140-440); RDW Standard Deviation 61.8 fL (36.4-46.3); Red Blood Count 4.05 Miln/mm3 (4.00-5.20); White Blood Count 11.6 Thou/mm3 (3.6-11.0)
--- NOTE | 2025-03-15 10:13 | PC.SS ---
SS attempted contact with patient's nephew, Jg Coffman [phone] to confirm patient's information and discuss the d/c plan. No answer and voicemail was provided.
[2025-03-15] MEDS: FUROSEMIDE INJ 10 MG/ML 4ML VIAL 40 MG IVP (10:53)
[2025-03-15] MEDS: PIPER/TAZO 3.375 GM PREMIX 3.375 GM/50 ML BAG IV ×2 (10:55→21:28)
[2025-03-15] MEDS: HEPARIN SOD INJ 5000 UNIT/ML VIAL SC ×2 (10:55→20:09)
--- NOTE | 2025-03-15 12:17 | PC.SS ---
Patient is an 89-year-old female here for acute chronic respitory failure. Spoke with patient's nephew Jg. Patient resides at home and has 24/7 care by caregivers. Patient is bedbound. She has a BiPAP, uses 2LO2, a hospital bed, sergio lift, walker and wheelchair. Patient's medical decision maker is her nephew, Jg. Patient's PCP is Dr. Martínez. At the time of discharge, the patient will return home with [facility]. Patient will need ambulance transportation arranged. D/c Plan: return home w/ [facility] Next of kin: Nephmary Jg
[2025-03-15] MEDS: SOD POLYSTYRENE SULFON SUSP 15 GM/60 ML BTL 30 GM PO (13:14)
--- NOTE | 2025-03-15 13:15 | PC.PT ---
PT eval only. Patient is bedbound and is at her PLOF. RN made aware.
--- NOTE | 2025-03-15 15:10 | PC.SS ---
Rounding note: patient is being treated for UTI, receiving IV abx. D/c plan is for the patient to return home w/ [facility].
--- NOTE | 2025-03-15 15:15 | ESPR_ITS ---
Documentation for date of: 03/15/25 Subjective Subjective Interval history: No acute overnight events. Seen and examined at bedside. Mentation appears to have improved today but still requiring BIPAP. Denies fever, chills, headaches, chest pain, sob, cough, GI or urinary symptoms. Exam Vital Signs Temp Pulse Resp BP Pulse Ox O2 Del Method O2 Flow Rate 96.9 F 87 22 H 119/79 97 BiPAP 2 03/15/25 12:00 03/15/25 13:13 03/15/25 13:13 03/15/25 12:00 03/15/25 13:13 03/15/25 12:00 03/15/25 13:13 FiO2 40 03/15/25 13:00 Narrative Exam GENERAL * Obese elderly female, drowsy but is easily arousable, NAD, ANOx2. HEENT * NCAT.?ALBERT. Oral mucosa is moist. Patent Nares NECK * Supple, nontender, no JVD. CHEST * RRR, no m/g/r * CTAB, no w/r/r, symmetrical expansion. ABDOMEN * Soft, flat, nontender. No guarding/rebound tenderness/masses. * Bowel sounds presents EXTREMITIES * No edema/cyanosis.? SKIN * Warm and dry, no jaundice/rashes. NEUROMUSCULAR * Moves all 4 extremities well, with full ROM and good CSM. * No focal neurologic deficits. PSYCHIATRY * Normal mood and affect, cooperative, no SI or HI or hallucinations. Objective Labs 03/16/25 04:08 03/16/25 04:08 Labs: Laboratory Results - last 24 hr 03/14/25 03/14/25 03/14/25 15:55 18:04 19:30 WBC 12.3 H RBC 3.67 L Hgb 10.5 L Hct 36.1 MCV 98 MCH 28.6 MCHC 29.1 L RDW Std Deviation 63.1 H Plt Count 239 D Neut % (Auto) 90 H Lymph % (Auto) 4 L [place] % (Auto) 3 Eos % (Auto) 0 Baso % (Auto) 1 Neut # (Auto) 11.0 H Lymph # (Auto) 0.5 L [place] # (Auto) 0.4 Eos # (Auto) 0.0 Baso # (Auto) 0.1 Immature Gran # (Auto) 0.30 H Absolute Nucleated RBC 0.00 Immature Gran % 2 H Nucleated RBC % 0 PT 10.3 INR 0.9 APTT 20.5 L Puncture Site Right Radial ABG pH 7.33 L ABG pCO2 67 H ABG pO2 132 H ABG HCO3 36 H ABG O2 Saturation 99 H ABG Base Excess 8 H VBG pH VBG pCO2 VBG pO2 VBG O2 Sat (Radha) VBG Base Excess Oxygen Liter Flow 3 Sodium 145 Potassium 5.5 H Chloride 105 Carbon Dioxide 34.5 H Anion Gap 6 L BUN 30 H Creatinine 1.1 Estim Creat Clear Calc 40.6 L eGFR 48 L BUN/Creatinine Ratio 27 H Glucose 289 H Calculated Osmolality 305 H Lactic Acid 3.9 H 2.0 Calcium 10.0 Corrected Calcium 10.4 H Phosphorus Magnesium 1.5 L Total Bilirubin 0.2 L AST 14 ALT 27 Alkaline Phosphatase 72 Troponin I < 0.020 B-Natriuretic Peptide 141 H Total Protein 5.5 L Albumin 3.5 Globulin 2.0 L Albumin/Globulin Ratio 1.8 Lipase 19 Procalcitonin 0.09 Ur Collection Type Catheter Urine Color Lt-Yellow Urine Clarity Turbid A Urine pH 5.5 Ur Specific Ada 1.022 Urine Protein Trace Urine Glucose (UA) 3+ A Urine Ketones Negative Urine Blood Negative Urine Nitrite Negative Urine Bilirubin Negative Urine Urobilinogen (Auto) Negative Ur Leukocyte Esterase Positive Urine RBC 13 H Urine WBC 249 H Ur Squamous Epith Cells 3 Urine Bacteria None Urine Yeast (Budding) Present A Ur Culture Indicated? Yes 03/14/25 03/15/25 03/15/25 22:28 00:00 06:57 WBC RBC Hgb Hct MCV MCH MCHC RDW Std Deviation Plt Count Neut % (Auto) Lymph % (Auto) [place] % (Auto) Eos % (Auto) Baso % (Auto) Neut # (Auto) Lymph # (Auto) [place] # (Auto) Eos # (Auto) Baso # (Auto) Immature Gran # (Auto) Absolute Nucleated RBC Immature Gran % Nucleated RBC % PT INR APTT Puncture Site ABG pH ABG pCO2 ABG pO2 ABG HCO3 ABG O2 Saturation ABG Base Excess VBG pH 7.46 VBG pCO2 50 VBG pO2 48 VBG O2 Sat (Radha) 88 L VBG Base Excess 11 H Oxygen Liter Flow Sodium 147 H 146 H Potassium 5.4 H 5.6 H Chloride 105 103 Carbon Dioxide 38.5 H 37.2 H Anion Gap 4 L 6 L BUN 28 H 23 Creatinine 0.9 0.8 Estim Creat Clear Calc 50.0 L 54.1 L eGFR > 60 > 60 BUN/Creatinine Ratio 31 H 29 H Glucose 149 H D 90 D Calculated Osmolality 300 H 294 Lactic Acid Calcium 9.8 9.7 Corrected Calcium 10.1 10.1 Phosphorus 3.9 Magnesium Total Bilirubin 0.3 AST 17 ALT 24 Alkaline Phosphatase 53 D Troponin I B-Natriuretic Peptide Total Protein 5.5 L Albumin 3.6 3.5 Globulin 2.0 L Albumin/Globulin Ratio 1.8 Lipase Procalcitonin Ur Collection Type Urine Color Urine Clarity Urine pH Ur Specific Ada Urine Protein Urine Glucose (UA) Urine Ketones Urine Blood Urine Nitrite Urine Bilirubin Urine Urobilinogen (Auto) Ur Leukocyte Esterase Urine RBC Urine WBC Ur Squamous Epith Cells Urine Bacteria Urine Yeast (Budding) Ur Culture Indicated? 03/15/25 09:22 WBC 11.6 H RBC 4.05 Hgb 11.8 L Hct 39.5 MCV 98 MCH 29.1 MCHC 29.9 L RDW Std Deviation 61.8 H Plt Count 188 D Neut % (Auto) 75 Lymph % (Auto) 15 [place] % (Auto) 6 Eos % (Auto) 2 Baso % (Auto) 0 Neut # (Auto) 8.8 H Lymph # (Auto) 1.7 [place] # (Auto) 0.6 Eos # (Auto) 0.2 Baso # (Auto) 0.1 Immature Gran # (Auto) 0.23 H Absolute Nucleated RBC 0.00 Immature Gran % 2 H Nucleated RBC % 0 PT INR APTT Puncture Site ABG pH ABG pCO2 ABG pO2 ABG HCO3 ABG O2 Saturation ABG Base Excess VBG pH VBG pCO2 VBG pO2 VBG O2 Sat (Radha) VBG Base Excess Oxygen Liter Flow Sodium Potassium Chloride Carbon Dioxide Anion Gap BUN Creatinine Estim Creat Clear Calc eGFR BUN/Creatinine Ratio Glucose Calculated Osmolality Lactic Acid Calcium Corrected Calcium Phosphorus Magnesium Total Bilirubin AST ALT Alkaline Phosphatase Troponin I B-Natriuretic Peptide Total Protein Albumin Globulin Albumin/Globulin Ratio Lipase Procalcitonin Ur Collection Type Urine Color Urine Clarity Urine pH Ur Specific [place] Urine Protein Urine Glucose (UA) Urine Ketones Urine Blood Urine Nitrite Urine Bilirubin Urine Urobilinogen (Auto) Ur Leukocyte Esterase Urine RBC Urine WBC Ur Squamous Epith Cells Urine Bacteria Urine Yeast (Budding) Ur Culture Indicated? ABG Interpretation ABG results: 03/14/25 03/14/25 18:04 22:28 ABG pH 7.33 L ABG pCO2 67 H ABG pO2 132 H ABG HCO3 36 H ABG O2 Saturation 99 H ABG Base Excess 8 H VBG pH 7.46 VBG pCO2 50 VBG pO2 48 VBG Base Excess 11 H Quality Measures Quality Measures none Advance care planning discussed with:: patient Assessment & Plan Assessment Current Active Medications: Generic Name Dose Route Start Last Admin Trade Name Freq PRN Reason Stop Dose Admin Acetaminophen 650 mg 03/14/25 23:46 Acetaminophen 325 Mg Tablet PO 04/13/25 23:45 Q6H PRN PAIN SCALE 1-3 (mild Dextrose 25 ml 03/14/25 23:46 Dextrose 50%-Water Inj 50 Ml Syringe IV 04/13/25 23:45 Q15MIN PRN BG 50-70 responsive npo pt Dextrose 50 ml 03/14/25 23:46 Dextrose 50%-Water Inj 50 Ml Syringe IV 04/13/25 23:45 Q15MIN PRN BG <50 OR BG <70 & pt unresponsive Furosemide 40 mg 03/15/25 09:00 03/15/25 10:53 Furosemide Inj 10 Mg/Ml 4ml Vial IVP 04/14/25 08:59 40 mg QDAY LISETTE Administration Glucagon 1 mg 03/14/25 23:46 Glucagon Inj 1 Mg Vial IM Q15MIN PRN BG <70, and no IV access Heparin Sodium (Porcine) 5,000 unit 03/15/25 09:00 03/15/25 10:55 Heparin Sod Inj 5000 Unit/Ml Vial SC 03/29/25 08:59 5,000 unit Q12HR LISETTE Administration Piperacillin/Tazobactam/Dextrose 3.375 gm in 50 mls @ 12.5 mls/hr 03/15/25 08:33 03/15/25 13:16 Zosyn IV 03/22/25 08:32 Not Given Q8HR LISETTE Protocol Insulin Human Lispro 0 unit 03/15/25 07:30 03/15/25 11:41 Insulin Lispro (Admelog) 1 Unit/0.01 Ml Unit SC 04/14/25 07:29 Not Given ACHS LISETTE Protocol Levalbuterol HCl 0.63 mg 03/15/25 00:00 03/15/25 12:57 Levalbuterol Rt 0.63 Mg/3 Ml Nebu INH 04/14/25 00:00 0.63 mg Q6HR LISETTE Administration Levothyroxine Sodium 100 mcg 03/15/25 06:00 03/15/25 06:21 Levothyroxine Sodium 100 Mcg Tablet PO 04/14/25 05:59 Not Given ACBR LISETTE Ondansetron HCl 4 mg 03/14/25 23:46 Ondansetron Inj 2 Mg/Ml Inj 2 Ml IVP 04/13/25 23:45 Q6H PRN NAUSEA OR VOMITING Protocol Prednisone 20 mg/ Prednisone 30 mg 03/15/25 12:00 03/15/25 13:15 10 mg PO 04/14/25 11:59 30 mg QDAY LISETTE Administration Sennosides 1 tab 03/15/25 09:00 03/15/25 10:46 Senna Tablet PO 04/14/25 08:59 Not Given QDAY [facility] Protocol Plan This is an 89-year-old female with PMHx of ILD/pulmonary fibrosis, chronic respiratory failure on 2 L home oxygen and BiPAP, HFpEF, bedbound, recurrent UTI, hypothyroidism, right breast cancer s/p lumpectomy, T2DM, GERD, depression, chronic back pain, known to us for recurrent admission for hypercapnic respiratory failure, presenting to the ED with acute altered mental status in setting of mild acute on chronic hypercapnic respiratory failure and possible UTI. Acute encephalopathy (resolved) Acute hypercapnic respiratory failure Chronic respiratory failure Appropriately compensated Acute vs. Chronic Respiratory Acidosis Worsening ILD/pulmonary fibrosis She has chronic ILD/pulmonary fibrosis leading to chronic respiratory failure, chronic CO2 retention, requiring daily BiPAP and home oxygen. She has recurrent admission AMS 2/2 hypercapnic respiratory failure as a result. Prognosis remains poor, likely will continue to worsen with time. Recently was discharged on prolonged STEROID taper which she is currently taking. Presenting with acute AMS, likely poor BIPAP tolerance and worsening lung disease as described above. No pneumonia seen on x-ray. No signs of vascular congestion or lower extremity edema. Admission ABG was acidotic with hypercapnia, however improved significantly after BiPAP. He also received a dose of bicarb in ED. ? DuoNebs q.6h. PRN ? Continue BiPAP HS and PRN. ? Continue home PRENISONE 30 mg QDAY (discharge on steroid taper. following previous admission plan) ? Continue LASIX 20 mg daily PRN (currently euvolemic) ? Continue ACETAZOLAMIDE 250 mg PRN ? Consider repeat blood gas if worsening symptoms UTI Hx Pseudomonas aeruginosa UA again showing UTI, and she has chronic UTIs on previous admissions. Previous culture grew Pseudomonas aeruginosa's, sensitive to ZOSYN. Completed a course of ANTIBIOTICS. Currently asymptomatic ? Continue ZOSYN (03/15 to present) ? Follow-up pancultures HFpEF EF 65% Echocardiogram from 12/2024 showed EF 65%, trace mitral and tricuspid regurg, no wall motion abnormalities. However, she has chronic fluid retention for which she takes LASIX 20 mg daily. CXR showing vascular congestion and mild bilateral ankle blunting. Renal function within normal limits ? Continue LASIX 20 mg PRN ? Strict NARINDER's ? Monitor renal function Hypothyroidism TSH WNL. ? Continue home LEVOTHYROXINE 100 mcg daily T2DM Reportedly, she was refusing oral feeds over the last few days, home GLUCOSE was 75 this morning with baseline around 160. Admission GLUCOSE 135. A1c 7.9 from 01/26/2025. ? INSULIN sliding scale ? Accu-Cheks Dysphagia Esophageal stenosis s/p dilation Chronic constipation On last admission, she had EGD with dilation for dysphagia secondary to esophageal stenosis. Reportedly, she was tolerating oral intake at home. However was refusing food this morning. Speech recommended Dysphagia 3 diet. Health maintenance Diet: Dysphagia 3, CHO consistent GI prophylaxis: PROTONIX DVT prophylaxis: HEPARIN SUBQ Antibiotics: ZOSYN CODE STATUS: FULL CODE Disposition: Treating [facility] Case was discussed with attending physician. Jeffry Eller DO PGY II This document was transcribed using voice recognition technology. Minor inaccuracies may be present. Attending Provider Attestation/Addendum 89-year-old female admitted for acute encephalopathy according to caregiver the patient suddenly became less responsive yesterday or day prior to admission. . She has history of hypercapnia. She is currently on BiPAP. She is obese with a weight of 95 kg BMI of 36 I discussed with and supervised the resident physician who took care of this patient. I agree with the assessment and plan as above.
[2025-03-15] MEDS: INSULIN LISPRO (AdmeLOG) 1 UNIT/0.01 ML UNIT SC ×2 (18:00→20:09)
[2025-03-16] VITALS (14 sets, daily range): BP systolic 97–119; BP diastolic 57–81; PULSE 84–120; RESP 14–29; TEMP 36.6–37.1; O2SAT 94–99; BMI 36.1
[2025-03-16] MEDS: LEVALBUTEROL RT 0.63 MG/3 ML NEBU INH ×4 (00:49→18:33)
[2025-03-16 04:40] LABS: Basophils # (Auto) 0.0 Thou/mm3 (0.0-0.2); Basophils % (Auto) 0 % (0-2.5); Eosinophils # (Auto) 0.0 Thou/mm3 (0.0-0.5); Eosinophils % (Auto) 0 % (0-10); Hematocrit 36.1 % (36.0-46.0); Hemoglobin 10.6 g/dL (12.0-16.0); Immature Granulocytes Auto 0.20 Thou/mm3 (0.00-0.00); Lymphocytes # (Auto) 0.6 Thou/mm3 (1.0-4.8); Lymphocytes % (Auto) 6 % (10-50); Mean Corpuscular HGB Conc 29.4 g/dl (31.0-37.0); Mean Corpuscular Hemoglobin 28.3 pg (25.0-35.0); Mean Corpuscular Volume 97 fL (80-100); Monocytes # (Auto) 0.4 Thou/mm3 (0.0-0.8); Monocytes % (Auto) 4 % (0-12); Neutrophils # (Auto) 9.1 Thou/mm3 (1.8-7.7); Neutrophils % (Auto) 88 % (37-80); Nucleated Red Blood Cell # 0.00 Thou/mm3 (0.00-0.00); Nucleated Red Blood Cell % 0 /100 WBC (0); Platelet Count 208 Thou/mm3 (140-440); RDW Standard Deviation 61.1 fL (36.4-46.3); Red Blood Count 3.74 Miln/mm3 (4.00-5.20); White Blood Count 10.4 Thou/mm3 (3.6-11.0)
[2025-03-16 04:59] LABS: Alanine Aminotransferase 29 U/L (10-49); Albumin, Serum 3.2 gm/dL (3.4-4.8); Albumin/Globulin Ratio 1.6 (1.2-2.2); Alkaline Phosphatase 56 U/L (46-116); Anion Gap 4 (7-16); Aspartate Amino Transferase 16 U/L (0-34); BUN/Creatinine Ratio 16 Ratio (12-20); Bilirubin,Total 0.6 mg/dL (0.3-1.2); Blood Urea Nitrogen 16 mg/dL (9-23); Calcium 8.9 mg/dL (8.3-10.6); Calcium (Corrected) 9.5 mg/dL (8.5-10.1); Carbon Dioxide 39.6 mMol/L (20.0-31.0); Chloride 97 mMol/L (98-107); Creatinine (Component) 1.0 mg/dL (0.6-1.3); Estimated Creatinine Clearance 43.2 mL/min (>60); Globulin 2.0 gm/dL (2.3-3.5); Glucose 230 mg/dL (74-106); Magnesium 1.9 mg/dL (1.6-2.6); Osmolality,Calculated 289 (275-295); Phosphorous 3.7 mg/dL (2.4-5.1); Potassium 5.1 mMol/L (3.4-5.1); Sodium 141 mMol/L (136-145); Total Protein 5.2 gm/dL (5.7-8.2); eGFR 54 See Note
[2025-03-16] MEDS: PIPER/TAZO 3.375 GM PREMIX 3.375 GM/50 ML BAG IV ×3 (05:49→21:02)
[2025-03-16] MEDS: LEVOTHYROXINE SODIUM 100 MCG TABLET PO (05:49)
--- NOTE | 2025-03-16 08:35 | CHAP ---
Patient was visited by a Spiritual Care Volunteer on 03/15/2025 between 0900 and 1200 and received comfort, encouragement and/or prayer.
[2025-03-16] MEDS: HEPARIN SOD INJ 5000 UNIT/ML VIAL SC ×2 (09:18→20:13)
[2025-03-16] MEDS: INSULIN LISPRO (AdmeLOG) 1 UNIT/0.01 ML UNIT SC ×4 (09:18→20:13)
[2025-03-16] MEDS: INSULIN GLARGINE (Lantus) 5 UNIT/0.05 ML (PER 5 UNITS) SC ×2 (09:19→20:13)
[2025-03-16] MEDS: FUROSEMIDE INJ 10 MG/ML 4ML VIAL 40 MG IVP (09:19)
--- NOTE | 2025-03-16 11:25 | ESPR_ITS ---
<Statement entered by Liborio Aguila MD - 03/17/25 15:27> I have reviewed the note and agree with the resident's assessment & plan with exceptions as below. I have personally reviewed labs, imaging, home meds/prior records, examined the patient, formulated and discussed management plan with the IM team. Patient examined bedside today. Patient had urine culture that grew GNR, will continue with IV Zosyn as there is suspicion for Pseudomonas. Will continue with breathing treatments, continue BiPAP at night. Repeat hematology and chemistry in AM. Continue to monitor blood sugar levels, will continue with Lantus 10 units, and increase sliding scale to stage II. Also ordered home health diabetic education for caretakers Liborio Aguila, PGY-2 Internal Medicine Documentation for date of: 03/16/25 Subjective Subjective Interval history: Patient seen at bedside alongside family. Currently off BiPaP. No acute overnight events. Patient denies any chest pain, shortness of breath, abdominal pain, nausea, vomiting, dizziness. Family mentions blood sugar drops <60 around 4-6am. Exam Vital Signs Temp Pulse Resp BP Pulse Ox O2 Del Method O2 Flow Rate 97.9 F 108 H 19 113/62 95 Nasal Cannula 3 03/16/25 07:39 03/16/25 09:19 03/16/25 07:39 03/16/25 09:19 03/16/25 07:39 03/16/25 07:39 03/16/25 07:39 FiO2 40 03/16/25 01:53 Narrative Exam GENERAL Obese elderly female, NAD, ANOx3. HEENT NCAT. ALBERT. Oral mucosa is moist. Patent Nares NECK Supple, nontender, no JVD. CHEST RRR, no m/g/r. CTAB, no w/r/r, symmetrical expansion. ABDOMEN Soft, flat, nontender. No guarding/rebound tenderness/masses. Bowel sounds presents EXTREMITIES No edema/cyanosis. SKIN Warm and dry, no jaundice/rashes. NEUROMUSCULAR Moves all 4 extremities well, with full ROM and good CSM. No focal neurologic deficits. PSYCHIATRY Normal mood and affect, cooperative, no SI or HI or hallucinations. Objective Labs 03/17/25 04:31 03/17/25 04:31 Labs: Laboratory Results - last 24 hr 03/16/25 04:08 WBC 10.4 RBC 3.74 L Hgb 10.6 L Hct 36.1 MCV 97 MCH 28.3 MCHC 29.4 L RDW Std Deviation 61.1 H Plt Count 208 Neut % (Auto) 88 H Lymph % (Auto) 6 L [place] % (Auto) 4 Eos % (Auto) 0 Baso % (Auto) 0 Neut # (Auto) 9.1 H Lymph # (Auto) 0.6 L [place] # (Auto) 0.4 Eos # (Auto) 0.0 Baso # (Auto) 0.0 Immature Gran # (Auto) 0.20 H Absolute Nucleated RBC 0.00 Immature Gran % 2 H Nucleated RBC % 0 Sodium 141 Potassium 5.1 D Chloride 97 L Carbon Dioxide 39.6 H Anion Gap 4 L BUN 16 Creatinine 1.0 Estim Creat Clear Calc 43.2 L eGFR 54 L BUN/Creatinine Ratio 16 Glucose 230 H D Calculated Osmolality 289 Calcium 8.9 Corrected Calcium 9.5 Phosphorus 3.7 Magnesium 1.9 Total Bilirubin 0.6 AST 16 ALT 29 Alkaline Phosphatase 56 Total Protein 5.2 L Albumin 3.2 L Globulin 2.0 L Albumin/Globulin Ratio 1.6 ABG Interpretation ABG results: 03/14/25 03/14/25 18:04 22:28 ABG pH 7.33 L ABG pCO2 67 H ABG pO2 132 H ABG HCO3 36 H ABG O2 Saturation 99 H ABG Base Excess 8 H VBG pH 7.46 VBG pCO2 50 VBG pO2 48 VBG Base Excess 11 H Quality Measures Quality Measures none Advance care planning discussed with:: patient Assessment & Plan Assessment Current Active Medications: Generic Name Dose Route Start Last Admin Trade Name Vy PRN Reason Stop Dose Admin Acetaminophen 650 mg 03/14/25 23:46 Acetaminophen 325 Mg Tablet PO 04/13/25 23:45 Q6H PRN PAIN SCALE 1-3 (mild Dextrose 25 ml 03/14/25 23:46 Dextrose 50%-Water Inj 50 Ml Syringe IV 04/13/25 23:45 Q15MIN PRN BG 50-70 responsive npo pt Dextrose 50 ml 03/14/25 23:46 Dextrose 50%-Water Inj 50 Ml Syringe IV 04/13/25 23:45 Q15MIN PRN BG <50 OR BG <70 & pt unresponsive Furosemide 40 mg 03/15/25 09:00 03/16/25 09:19 Furosemide Inj 10 Mg/Ml 4ml Vial IVP 04/14/25 08:59 40 mg QDAY LISETTE Administration Glucagon 1 mg 03/14/25 23:46 Glucagon Inj 1 Mg Vial IM Q15MIN PRN BG <70, and no IV access Heparin Sodium (Porcine) 5,000 unit 03/15/25 09:00 03/16/25 09:18 Heparin Sod Inj 5000 Unit/Ml Vial SC 03/29/25 08:59 5,000 unit Q12HR LISETTE Administration Piperacillin/Tazobactam/Dextrose 3.375 gm in 50 mls @ 12.5 mls/hr 03/15/25 08:33 03/16/25 05:49 Zosyn IV 03/22/25 08:32 12.5 mls/hr Q8HR LISETTE Administration Protocol Insulin Glargine 5 unit 03/16/25 21:00 Insulin Glargine (Lantus) 5 Unit/0.05 Ml (Per 5 Units) SC 03/16/25 21:01 X1 ONE Insulin Human Lispro 0 unit 03/16/25 09:55 Insulin Lispro (Admelog) 1 Unit/0.01 Ml Unit SC 04/14/25 07:29 ACHS LISETTE Protocol Levalbuterol HCl 0.63 mg 03/15/25 00:00 03/16/25 06:43 Levalbuterol Rt 0.63 Mg/3 Ml Nebu INH 04/14/25 00:00 0.63 mg Q6HR LISETTE Administration Levothyroxine Sodium 100 mcg 03/15/25 06:00 03/16/25 05:49 Levothyroxine Sodium 100 Mcg Tablet PO 04/14/25 05:59 100 mcg ACBR LISETTE Administration Ondansetron HCl 4 mg 03/14/25 23:46 Ondansetron Inj 2 Mg/Ml Inj 2 Ml IVP 04/13/25 23:45 Q6H PRN NAUSEA OR VOMITING Protocol Prednisone 20 mg/ Prednisone 30 mg 03/15/25 12:00 03/16/25 09:18 10 mg PO 04/14/25 11:59 30 mg QDAY LISETTE Administration Sennosides 1 tab 03/15/25 09:00 03/16/25 09:21 Senna Tablet PO 04/14/25 08:59 1 tab QDAY LISETTE Administration Protocol Plan Assessment: 89-year-old female with PMHx of ILD/pulmonary fibrosis, chronic respiratory failure on 2 L home oxygen and BiPAP, HFpEF, bedbound, recurrent UTI, hypothyroidism, right breast cancer s/p lumpectomy, T2DM, GERD, depression, chronic back pain, known to us for recurrent admission for hypercapnic respiratory failure, presenting to the ED with acute altered mental status in setting of mild acute on chronic hypercapnic respiratory failure and possible UTI. #Acute encephalopathy (resolved) #Acute hypercapnic respiratory failure #Chronic respiratory failure #Appropriately compensated Acute vs. Chronic Respiratory Acidosis #Worsening ILD/pulmonary fibrosis She has chronic ILD/pulmonary fibrosis leading to chronic respiratory failure, chronic CO2 retention, requiring daily BiPAP and home oxygen. She has recurrent admission AMS 2/2 hypercapnic respiratory failure as a result. Prognosis remains poor, likely will continue to worsen with time. Recently was discharged on prolonged STEROID taper which she is currently taking. Presenting with acute AMS, likely poor BIPAP tolerance and worsening lung disease as described above. No pneumonia seen on x-ray. No signs of vascular congestion or lower extremity edema. Admission ABG was acidotic with hypercapnia, however improved significantly after BiPAP. He also received a dose of bicarb in ED. ? DuoNebs q.6h. PRN ? Continue BiPAP HS and PRN. ? Continue home PRENISONE 30 mg QDAY (discharge on steroid taper. following previous admission plan) ? Continue LASIX 20 mg daily PRN (currently euvolemic) ? Consider repeat blood gas if worsening symptoms #T2DM Reportedly, she was refusing oral feeds over the last few days, home GLUCOSE was 75 this morning with baseline around 160. Admission GLUCOSE 135. A1c 7.9 from 01/26/2025. AM blood glucose today 230 Fingerstick glucose 330 last night, 184 this AM ? Glargine 5u given x1 in AM, repeat 5u in EVENING as well ? INSULIN sliding scale Step 2 ? Accu-Cheks #UTI #Hx Pseudomonas aeruginosa UA again showing UTI, and she has chronic UTIs on previous admissions. Previous culture grew Pseudomonas aeruginosa's, sensitive to ZOSYN. Completed a course of ANTIBIOTICS. Currently asymptomatic ? Continue ZOSYN (03/15 to present) ? Follow-up pancultures #HFpEF EF 65% Echocardiogram from 12/2024 showed EF 65%, trace mitral and tricuspid regurg, no wall motion abnormalities. However, she has chronic fluid retention for which she takes LASIX 20 mg daily. CXR showing vascular congestion and mild bilateral ankle blunting. Renal function within normal limits ? Continue LASIX 20 mg PRN ? Strict NARINDER's ? Monitor renal function #Hypothyroidism TSH WNL. ? Continue home LEVOTHYROXINE 100 mcg daily #Dysphagia #Esophageal stenosis s/p dilation #Chronic constipation On last admission, she had EGD with dilation for dysphagia secondary to esophageal stenosis. Reportedly, she was tolerating oral intake at home. However was refusing food this morning. Speech recommended Dysphagia 3 diet. Health maintenance Diet: Dysphagia 3, CHO consistent GI prophylaxis: PROTONIX DVT prophylaxis: HEPARIN SUBQ Antibiotics: ZOSYN CODE STATUS: FULL CODE Disposition: Treating [facility] Case discussed with my attending Dr. Rae, and senior resident, Dr. Ayla Jose MD PGY-1 Attending Provider Attestation/Addendum Patient was seen and examined. She is very alert. Her blood glucose was 75 this morning. Will need to adjust dose of insulin. Patient has no fever no purulent expectoration no chest pain. She has no nausea vomiting. No hematuria. I discussed with and supervised the resident physician who took care of this patient. I agree with the assessment and plan as above.
[2025-03-16 12:51] LABS: Albumin, Serum 3.5 gm/dL (3.4-4.8); Anion Gap 5 (7-16); BUN/Creatinine Ratio 21 Ratio (12-20); Blood Urea Nitrogen 21 mg/dL (9-23); Calcium 8.9 mg/dL (8.3-10.6); Calcium (Corrected) 9.3 mg/dL (8.5-10.1); Carbon Dioxide 39.0 mMol/L (20.0-31.0); Chloride 94 mMol/L (98-107); Creatinine (Component) 1.0 mg/dL (0.6-1.3); Estimated Creatinine Clearance 43.7 mL/min (>60); Glucose 258 mg/dL (74-106); Osmolality,Calculated 287 (275-295); Phosphorous 2.7 mg/dL (2.4-5.1); Potassium 3.9 mMol/L (3.4-5.1); Sodium 138 mMol/L (136-145); eGFR 54 See Note
--- NOTE | 2025-03-16 15:03 | PC.SS ---
Rounding note: patient is pending cultures, treating for UTI. D/c plan is to return home w/[facility].
[2025-03-17] VITALS (13 sets, daily range): BP systolic 101–140; BP diastolic 57–72; PULSE 91–122; RESP 14–28; TEMP 36.1–36.6; O2SAT 92–100
[2025-03-17] MEDS: LEVALBUTEROL RT 0.63 MG/3 ML NEBU INH ×4 (00:36→19:36)
[2025-03-17] MEDS: ACETAMINOPHEN 325 MG TABLET 650 MG PO (00:47)
[2025-03-17] MEDS: LEVOTHYROXINE SODIUM 100 MCG TABLET PO (05:02)
[2025-03-17] MEDS: PIPER/TAZO 3.375 GM PREMIX 3.375 GM/50 ML BAG IV ×3 (05:02→21:33)
[2025-03-17 06:18] LABS: Basophils # (Auto) 0.0 Thou/mm3 (0.0-0.2); Basophils % (Auto) 0 % (0-2.5); Eosinophils # (Auto) 0.2 Thou/mm3 (0.0-0.5); Eosinophils % (Auto) 2 % (0-10); Hematocrit 39.2 % (36.0-46.0); Hemoglobin 11.5 g/dL (12.0-16.0); Immature Granulocytes Auto 0.17 Thou/mm3 (0.00-0.00); Lymphocytes # (Auto) 1.7 Thou/mm3 (1.0-4.8); Lymphocytes % (Auto) 16 % (10-50); Mean Corpuscular HGB Conc 29.3 g/dl (31.0-37.0); Mean Corpuscular Hemoglobin 28.0 pg (25.0-35.0); Mean Corpuscular Volume 95 fL (80-100); Monocytes # (Auto) 0.6 Thou/mm3 (0.0-0.8); Monocytes % (Auto) 6 % (0-12); Neutrophils # (Auto) 7.6 Thou/mm3 (1.8-7.7); Neutrophils % (Auto) 74 % (37-80); Nucleated Red Blood Cell # 0.00 Thou/mm3 (0.00-0.00); Nucleated Red Blood Cell % 0 /100 WBC (0); Platelet Count 205 Thou/mm3 (140-440); RDW Standard Deviation 60.9 fL (36.4-46.3); Red Blood Count 4.11 Miln/mm3 (4.00-5.20); White Blood Count 10.2 Thou/mm3 (3.6-11.0)
[2025-03-17 06:19] LABS: Alanine Aminotransferase 27 U/L (10-49); Albumin, Serum 3.7 gm/dL (3.4-4.8); Albumin/Globulin Ratio 1.8 (1.2-2.2); Alkaline Phosphatase 55 U/L (46-116); Anion Gap 6 (7-16); Aspartate Amino Transferase 17 U/L (0-34); BUN/Creatinine Ratio 21 Ratio (12-20); Bilirubin,Total 0.7 mg/dL (0.3-1.2); Blood Urea Nitrogen 23 mg/dL (9-23); Calcium 9.3 mg/dL (8.3-10.6); Calcium (Corrected) 9.5 mg/dL (8.5-10.1); Carbon Dioxide 38.8 mMol/L (20.0-31.0); Chloride 95 mMol/L (98-107); Creatinine (Component) 1.1 mg/dL (0.6-1.3); Estimated Creatinine Clearance 39.7 mL/min (>60); Globulin 2.1 gm/dL (2.3-3.5); Glucose 154 mg/dL (74-106); Magnesium 1.6 mg/dL (1.6-2.6); Osmolality,Calculated 286 (275-295); Phosphorous 2.9 mg/dL (2.4-5.1); Potassium 3.6 mMol/L (3.4-5.1); Sodium 140 mMol/L (136-145); Total Protein 5.8 gm/dL (5.7-8.2); eGFR 48 See Note
--- NOTE | 2025-03-17 07:48 | CHAP ---
Patient was visited by the Spiritual Care Volunteer from whom they also received communion. (Volunteer was in the hospital from 10:20-13:30)
[2025-03-17] MEDS: INSULIN LISPRO (AdmeLOG) 1 UNIT/0.01 ML UNIT SC ×3 (07:50→17:42)
[2025-03-17] MEDS: FUROSEMIDE INJ 10 MG/ML 4ML VIAL 40 MG IVP (08:41)
[2025-03-17] MEDS: HEPARIN SOD INJ 5000 UNIT/ML VIAL SC ×2 (08:41→21:36)
[2025-03-17] MEDS: INSULIN GLARGINE (Lantus) 5 UNIT/0.05 ML (PER 5 UNITS) 10 UNIT SC ×2 (09:54→21:47)
--- NOTE | 2025-03-17 13:44 | ESPR_ITS ---
<Statement entered by Liborio Aguila MD - 03/17/25 16:06> I have reviewed the note and agree with the resident's assessment & plan with exceptions as below. I have personally reviewed labs, imaging, home meds/prior records, examined the patient, formulated and discussed management plan with the IM team. Patient examined at bedside today. Patient continues to have fluctuations in sugar levels Especially for bedside glucose which has been as high as 300. Morning fasting glucose was 150. This is all likely attributed to prednisone use. Will continue adjusting sugars, will continue with Lantus 10 units, and will give scheduled bolus 3 units 3 times daily with meals in addition to sliding scale. Patient at this point has Pseudomonas UTI, will continue with IV antibiotics, anticipate discharge tomorrow to complete 3 days of IV antibiotics. Repeat hematology and chemistry in AM. Patient's bicarb today is around 38, which is patient's baseline at this time. Continue BiPAP at night. Liborio Aguila, PGY-2 Internal Medicine Documentation for date of: 03/17/25 Subjective Subjective Interval history: Patient seen at bedside alongside family. Currently off BiPaP. No acute overnight events. Patient denies any chest pain, shortness of breath, abdominal pain, nausea, vomiting, dizziness. Patient describes that mentation is good. However unable to sleep last night due to noises outside. Exam Vital Signs Temp Pulse Resp BP Pulse Ox O2 Del Method O2 Flow Rate 97.4 F 112 H 19 113/66 96 Nasal Cannula 2 03/17/25 12:00 03/17/25 12:00 03/17/25 12:03/17/25 12:03/17/25 12:00 03/17/25 12:00 03/17/25 12:00 FiO2 30 03/17/25 06:40 Narrative Exam GENERAL Obese elderly female, NAD, ANOx3. HEENT NCAT. ALBERT. Oral mucosa is moist. Patent Nares NECK Supple, nontender, no JVD. CHEST RRR, no m/g/r. CTAB, no w/r/r, symmetrical expansion. ABDOMEN Soft, flat, nontender. No guarding/rebound tenderness/masses. Bowel sounds presents EXTREMITIES No edema/cyanosis. SKIN Warm and dry, no jaundice/rashes. NEUROMUSCULAR Moves all 4 extremities well, with full ROM and good CSM. No focal neurologic deficits. PSYCHIATRY Normal mood and affect, cooperative, no SI or HI or hallucinations. Objective Labs 03/17/25 04:31 03/17/25 04:31 Labs: Laboratory Results - last 24 hr 03/17/25 04:31 WBC 10.2 RBC 4.11 Hgb 11.5 L Hct 39.2 MCV 95 MCH 28.0 MCHC 29.3 L RDW Std Deviation 60.9 H Plt Count 205 Neut % (Auto) 74 Lymph % (Auto) 16 [place] % (Auto) 6 Eos % (Auto) 2 Baso % (Auto) 0 Neut # (Auto) 7.6 Lymph # (Auto) 1.7 [place] # (Auto) 0.6 Eos # (Auto) 0.2 Baso # (Auto) 0.0 Immature Gran # (Auto) 0.17 H Absolute Nucleated RBC 0.00 Immature Gran % 2 H Nucleated RBC % 0 Sodium 140 Potassium 3.6 Chloride 95 L Carbon Dioxide 38.8 H Anion Gap 6 L BUN 23 Creatinine 1.1 Estim Creat Clear Calc 39.7 L eGFR 48 L BUN/Creatinine Ratio 21 H Glucose 154 H D Calculated Osmolality 286 Calcium 9.3 Corrected Calcium 9.5 Phosphorus 2.9 Magnesium 1.6 Total Bilirubin 0.7 AST 17 ALT 27 Alkaline Phosphatase 55 Total Protein 5.8 Albumin 3.7 Globulin 2.1 L Albumin/Globulin Ratio 1.8 ABG Interpretation ABG results: 03/14/25 03/14/25 18:04 22:28 ABG pH 7.33 L ABG pCO2 67 H ABG pO2 132 H ABG HCO3 36 H ABG O2 Saturation 99 H ABG Base Excess 8 H VBG pH 7.46 VBG pCO2 50 VBG pO2 48 VBG Base Excess 11 H Quality Measures Quality Measures none Advance care planning discussed with:: patient Assessment & Plan Assessment Current Active Medications: Generic Name Dose Route Start Last Admin Trade Name Freq PRN Reason Stop Dose Admin Acetaminophen 650 mg 03/14/25 23:46 03/17/25 00:47 Acetaminophen 325 Mg Tablet PO 04/13/25 23:45 650 mg Q6H PRN Administration PAIN SCALE 1-3 (mild Dextrose 25 ml 03/14/25 23:46 Dextrose 50%-Water Inj 50 Ml Syringe IV 04/13/25 23:45 Q15MIN PRN BG 50-70 responsive npo pt Dextrose 50 ml 03/14/25 23:46 Dextrose 50%-Water Inj 50 Ml Syringe IV 04/13/25 23:45 Q15MIN PRN BG <50 OR BG <70 & pt unresponsive Furosemide 40 mg 03/15/25 09:00 03/17/25 08:41 Furosemide Inj 10 Mg/Ml 4ml Vial IVP 04/14/25 08:59 40 mg QDAY LISETTE Administration Glucagon 1 mg 03/14/25 23:46 Glucagon Inj 1 Mg Vial IM Q15MIN PRN BG <70, and no IV access Heparin Sodium (Porcine) 5,000 unit 03/15/25 09:00 03/17/25 08:41 Heparin Sod Inj 5000 Unit/Ml Vial SC 03/29/25 08:59 5,000 unit Q12HR LISETTE Administration Piperacillin/Tazobactam/Dextrose 3.375 gm in 50 mls @ 12.5 mls/hr 03/15/25 08:33 03/17/25 13:24 Zosyn IV 03/22/25 08:32 12.5 mls/hr Q8HR LISETTE Administration Protocol Insulin Glargine 10 unit 03/17/25 09:00 03/17/25 09:54 Insulin Glargine (Lantus) 5 Unit/0.05 Ml (Per 5 Units) SC 04/16/25 08:59 10 unit QDAY LISETTE Administration Insulin Human Lispro 0 unit 03/16/25 09:55 03/17/25 11:42 Insulin Lispro (Admelog) 1 Unit/0.01 Ml Unit SC 04/14/25 07:29 5 unit ACHS LISETTE Administration Protocol Levalbuterol HCl 0.63 mg 03/15/25 00:00 03/17/25 13:39 Levalbuterol Rt 0.63 Mg/3 Ml Nebu INH 04/14/25 00:00 0.63 mg Q6HR LISETTE Administration Levothyroxine Sodium 100 mcg 03/15/25 06:00 03/17/25 05:02 Levothyroxine Sodium 100 Mcg Tablet PO 04/14/25 05:59 100 mcg ACBR LISETTE Administration Ondansetron HCl 4 mg 03/14/25 23:46 Ondansetron Inj 2 Mg/Ml Inj 2 Ml IVP 04/13/25 23:45 Q6H PRN NAUSEA OR VOMITING Protocol Prednisone 20 mg/ Prednisone 30 mg 03/15/25 12:00 03/17/25 08:41 10 mg PO 04/14/25 11:59 30 mg QDAY LISETTE Administration Sennosides 1 tab 03/15/25 09:00 03/17/25 08:40 Senna Tablet PO 04/14/25 08:59 1 tab QDAY LISETTE Administration Protocol Plan Assessment: 89-year-old female with PMHx of ILD/pulmonary fibrosis, chronic respiratory failure on 2 L home oxygen and BiPAP, HFpEF, bedbound, recurrent UTI, hypothyroidism, right breast cancer s/p lumpectomy, T2DM, GERD, depression, chronic back pain, known to us for recurrent admission for hypercapnic respiratory failure, presenting to the ED with acute altered mental status in setting of mild acute on chronic hypercapnic respiratory failure and possible UTI. #Acute encephalopathy (resolved) #Acute hypercapnic respiratory failure #Chronic respiratory failure #Appropriately compensated Acute vs. Chronic Respiratory Acidosis #Worsening ILD/pulmonary fibrosis She has chronic ILD/pulmonary fibrosis leading to chronic respiratory failure, chronic CO2 retention, requiring daily BiPAP and home oxygen. She has recurrent admission AMS 2/2 hypercapnic respiratory failure as a result. Prognosis remains poor, likely will continue to worsen with time. Recently was discharged on prolonged STEROID taper which she is currently taking. Presenting with acute AMS, likely poor BIPAP tolerance and worsening lung disease as described above. No pneumonia seen on x-ray. No signs of vascular congestion or lower extremity edema. Admission ABG was acidotic with hypercapnia, however improved significantly after BiPAP. He also received a dose of bicarb in ED. ? DuoNebs q.6h. PRN ? Continue BiPAP HS and PRN. ? Continue home PRENISONE 30 mg QDAY (discharge on steroid taper. following previous admission plan) ? Continue LASIX 20 mg daily PRN (currently euvolemic) #T2DM Reportedly, she was refusing oral feeds over the last few days, home GLUCOSE was 75 this morning with baseline around 160. Admission GLUCOSE 135. A1c 7.9 from 01/26/2025. AM blood glucose today 154 Fingerstick glucose 307 after meal ? Glargine 10u ? INSULIN sliding scale Step 2 - Lispro 3u TIDWM ? Accu-Cheks #UTI, Pseudomonas aeruginosa #Hx Pseudomonas aeruginosa UA again showing UTI, and she has chronic UTIs on previous admissions. Previous culture grew Pseudomonas aeruginosa's, sensitive to ZOSYN. Completed a course of ANTIBIOTICS. Currently asymptomatic ? Continue ZOSYN (03/15 to present), 1 more day of IV abx then stop #HFpEF EF 65% Echocardiogram from 12/2024 showed EF 65%, trace mitral and tricuspid regurg, no wall motion abnormalities. However, she has chronic fluid retention for which she takes LASIX 20 mg daily. CXR showing vascular congestion and mild bilateral ankle blunting. Renal function within normal limits ? Continue LASIX 20 mg PRN ? Strict NARINDER's ? Monitor renal function #Hypothyroidism TSH WNL. ? Continue home LEVOTHYROXINE 100 mcg daily #Dysphagia #Esophageal stenosis s/p dilation #Chronic constipation On last admission, she had EGD with dilation for dysphagia secondary to esophageal stenosis. Speech recommended Dysphagia 3 diet. Health maintenance Diet: Dysphagia 3, CHO consistent GI prophylaxis: PROTONIX DVT prophylaxis: HEPARIN SUBQ Antibiotics: ZOSYN CODE STATUS: FULL CODE Case discussed with my attending Dr. Rae, and senior resident, Dr. Ayla Jose MD PGY-1 Attending Provider Attestation/Addendum Patient remained alert and oriented. said she did not sleep last night. She slept earlier today around 6 AM. Patient denies headache no nausea vomiting no blurred vision. She has no chest pain. She was admitted for acute on chronic hypoxic and hypercapnic respiratory failure. She is obese. She has CUONG & COPD. The patient has history of Pseudomonas UTI. She denies dysuria no hematuria. She has no flank pain I discussed with and supervised the resident physician who took care of this patient. I agree with the assessment and plan as above.
--- NOTE | 2025-03-17 14:55 | PC.SS ---
Rounding note: pending urine cultures, anticipate d/c home tomorrow w/ [facility].
[2025-03-17] MEDS: INSULIN LISPRO (AdmeLOG) 1 UNIT/0.01 ML UNIT 3 UNIT SC (17:42)
[2025-03-18] VITALS (12 sets, daily range): BP systolic 100–115; BP diastolic 50–64; PULSE 91–120; RESP 14–27; TEMP 36.1–36.6; O2SAT 94–100
[2025-03-18] MEDS: LEVALBUTEROL RT 0.63 MG/3 ML NEBU INH ×4 (01:39→19:07)
[2025-03-18] MEDS: LEVOTHYROXINE SODIUM 100 MCG TABLET PO (05:45)
[2025-03-18] MEDS: PIPER/TAZO 3.375 GM PREMIX 3.375 GM/50 ML BAG IV ×3 (05:45→21:15)
[2025-03-18 06:20] LABS: Basophils # (Auto) 0.1 Thou/mm3 (0.0-0.2); Basophils % (Auto) 1 % (0-2.5); Eosinophils # (Auto) 0.2 Thou/mm3 (0.0-0.5); Eosinophils % (Auto) 2 % (0-10); Hematocrit 39.0 % (36.0-46.0); Hemoglobin 11.7 g/dL (12.0-16.0); Immature Granulocytes Auto 0.23 Thou/mm3 (0.00-0.00); Lymphocytes # (Auto) 1.9 Thou/mm3 (1.0-4.8); Lymphocytes % (Auto) 17 % (10-50); Mean Corpuscular HGB Conc 30.0 g/dl (31.0-37.0); Mean Corpuscular Hemoglobin 28.9 pg (25.0-35.0); Mean Corpuscular Volume 96 fL (80-100); Monocytes # (Auto) 0.8 Thou/mm3 (0.0-0.8); Monocytes % (Auto) 7 % (0-12); Neutrophils # (Auto) 8.2 Thou/mm3 (1.8-7.7); Neutrophils % (Auto) 72 % (37-80); Nucleated Red Blood Cell # 0.00 Thou/mm3 (0.00-0.00); Nucleated Red Blood Cell % 0 /100 WBC (0); Platelet Count 215 Thou/mm3 (140-440); RDW Standard Deviation 60.5 fL (36.4-46.3); Red Blood Count 4.05 Miln/mm3 (4.00-5.20); White Blood Count 11.4 Thou/mm3 (3.6-11.0)
[2025-03-18 06:40] LABS: Alanine Aminotransferase 28 U/L (10-49); Albumin, Serum 3.4 gm/dL (3.4-4.8); Albumin/Globulin Ratio 1.5 (1.2-2.2); Alkaline Phosphatase 50 U/L (46-116); Anion Gap 10 (7-16); Aspartate Amino Transferase 20 U/L (0-34); BUN/Creatinine Ratio 12 Ratio (12-20); Bilirubin,Total 0.6 mg/dL (0.3-1.2); Blood Urea Nitrogen 17 mg/dL (9-23); Calcium 9.4 mg/dL (8.3-10.6); Calcium (Corrected) 9.9 mg/dL (8.5-10.1); Carbon Dioxide 37.5 mMol/L (20.0-31.0); Chloride 95 mMol/L (98-107); Creatinine (Component) 1.4 mg/dL (0.6-1.3); Estimated Creatinine Clearance 31.2 mL/min (>60); Globulin 2.2 gm/dL (2.3-3.5); Glucose 179 mg/dL (74-106); Magnesium 2.0 mg/dL (1.6-2.6); Osmolality,Calculated 288 (275-295); Phosphorous 3.3 mg/dL (2.4-5.1); Potassium 3.7 mMol/L (3.4-5.1); Sodium 142 mMol/L (136-145); Total Protein 5.6 gm/dL (5.7-8.2); eGFR 36 See Note
[2025-03-18] MEDS: INSULIN LISPRO (AdmeLOG) 1 UNIT/0.01 ML UNIT SC ×4 (07:33→21:15)
[2025-03-18] MEDS: INSULIN LISPRO (AdmeLOG) 1 UNIT/0.01 ML UNIT 3 UNIT SC (07:33)
[2025-03-18] MEDS: HEPARIN SOD INJ 5000 UNIT/ML VIAL SC ×2 (09:08→21:15)
[2025-03-18] MEDS: FUROSEMIDE INJ 10 MG/ML 4ML VIAL 40 MG IVP (09:08)
[2025-03-18] MEDS: INSULIN GLARGINE (Lantus) 5 UNIT/0.05 ML (PER 5 UNITS) SC (10:16)
[2025-03-18] MEDS: RINGERS LACTATED 500 ML 500 ML 999 ML IV ×2 (11:21→15:54)
[2025-03-18] MEDS: INSULIN LISPRO (AdmeLOG) 1 UNIT/0.01 ML UNIT 4 UNIT SC (12:39)
--- NOTE | 2025-03-18 14:34 | PC.SS ---
Rounding note: possible d/c for tomorrow.
[2025-03-18] MEDS: INSULIN LISPRO (AdmeLOG) 1 UNIT/0.01 ML UNIT 6 UNIT SC (17:38)
--- NOTE | 2025-03-18 17:50 | ESPR_ITS ---
<Statement entered by Liborio Aguila MD - 03/19/25 13:47> I have reviewed the note and agree with the resident's assessment & plan with exceptions as below. I have personally reviewed labs, imaging, home meds/prior records, examined the patient, formulated and discussed management plan with the IM team. Patient examined at bedside today. Patient reports she is feeling well, tolerating BiPAP. Patient developed small STEVE, creatinine 1.4, likely related to diuresis. Will hold diuresis at this time, and administer IV fluids. Continuing to adjust insulin for labile sugars especially her bedside blood glucose sugars. Will adjust to step 3 sliding scale, increase bolus insulin to 6 units and glargine 15 units. Anticipate discharge within the next 24-48 hrs. continuing IV antibiotics for Pseudomonas UTI, with Zosyn, patient will need 3 days at this time. Repeat hematology and chemistry in AM. Liborio Aguila, PGY-2 Internal Medicine Documentation for date of: 03/18/25 Subjective Subjective Interval history: No overnight events per nursing staff. Patient was seen at bedside. She reports doing well today, with no more symptoms other than concerns for her blood sugar levels. Patient fell asleep in the middle of the interview with BIPAP on. Her inhalation therapist confirmed improved symptoms. Exam Vital Signs Temp Pulse Resp BP Pulse Ox O2 Del Method O2 Flow Rate 97.7 F 105 H 19 100/55 L 98 BiPAP 2 03/18/25 16:00 03/18/25 16:00 03/18/25 16:00 03/18/25 16:00 03/18/25 16:00 03/18/25 16:00 03/18/25 16:00 FiO2 30 03/18/25 16:00 Narrative Exam GENERAL Obese elderly female, NAD, ANOx3. HEENT NCAT. ALBERT. Oral mucosa is moist. Patent Nares NECK Supple, nontender, no JVD. CHEST RRR, no m/g/r. CTAB, no w/r/r, symmetrical expansion. ABDOMEN Soft, flat, nontender. No guarding/rebound tenderness/masses. Bowel sounds presents EXTREMITIES No edema/cyanosis. SKIN Warm and dry, no jaundice/rashes. NEUROMUSCULAR Moves all 4 extremities well, with full ROM and good CSM. No focal neurologic deficits. PSYCHIATRY Normal mood and affect, cooperative, no SI or HI or hallucinations. Objective Labs 03/19/25 09:00 03/19/25 09:00 Labs: Laboratory Results - last 24 hr 03/18/25 05:22 WBC 11.4 H RBC 4.05 Hgb 11.7 L Hct 39.0 MCV 96 MCH 28.9 MCHC 30.0 L RDW Std Deviation 60.5 H Plt Count 215 Neut % (Auto) 72 Lymph % (Auto) 17 [place] % (Auto) 7 Eos % (Auto) 2 Baso % (Auto) 1 Neut # (Auto) 8.2 H Lymph # (Auto) 1.9 [place] # (Auto) 0.8 Eos # (Auto) 0.2 Baso # (Auto) 0.1 Immature Gran # (Auto) 0.23 H Absolute Nucleated RBC 0.00 Immature Gran % 2 H Nucleated RBC % 0 Sodium 142 Potassium 3.7 Chloride 95 L Carbon Dioxide 37.5 H Anion Gap 10 BUN 17 Creatinine 1.4 H Estim Creat Clear Calc 31.2 L eGFR 36 L BUN/Creatinine Ratio 12 Glucose 179 H Calculated Osmolality 288 Calcium 9.4 Corrected Calcium 9.9 Phosphorus 3.3 Magnesium 2.0 Total Bilirubin 0.6 AST 20 ALT 28 Alkaline Phosphatase 50 Total Protein 5.6 L Albumin 3.4 Globulin 2.2 L Albumin/Globulin Ratio 1.5 ABG Interpretation ABG results: 03/14/25 03/14/25 18:04 22:28 ABG pH 7.33 L ABG pCO2 67 H ABG pO2 132 H ABG HCO3 36 H ABG O2 Saturation 99 H ABG Base Excess 8 H VBG pH 7.46 VBG pCO2 50 VBG pO2 48 VBG Base Excess 11 H Quality Measures Quality Measures none Advance care planning discussed with:: patient Assessment & Plan Assessment Current Active Medications: Generic Name Dose Route Start Last Admin Trade Name Freq PRN Reason Stop Dose Admin Acetaminophen 650 mg 03/14/25 23:46 03/17/25 00:47 Acetaminophen 325 Mg Tablet PO 04/13/25 23:45 650 mg Q6H PRN Administration PAIN SCALE 1-3 (mild Dextrose 25 ml 03/14/25 23:46 Dextrose 50%-Water Inj 50 Ml Syringe IV 04/13/25 23:45 Q15MIN PRN BG 50-70 responsive npo pt Dextrose 50 ml 03/14/25 23:46 Dextrose 50%-Water Inj 50 Ml Syringe IV 04/13/25 23:45 Q15MIN PRN BG <50 OR BG <70 & pt unresponsive Glucagon 1 mg 03/14/25 23:46 Glucagon Inj 1 Mg Vial IM Q15MIN PRN BG <70, and no IV access Heparin Sodium (Porcine) 5,000 unit 03/15/25 09:00 03/18/25 09:08 Heparin Sod Inj 5000 Unit/Ml Vial SC 03/29/25 08:59 5,000 unit Q12HR LISETTE Administration Piperacillin/Tazobactam/Dextrose 3.375 gm in 50 mls @ 12.5 mls/hr 03/15/25 08:33 03/18/25 13:21 Zosyn IV 03/22/25 08:32 12.5 mls/hr Q8HR LISETTE Administration Protocol Insulin Glargine 10 unit 03/18/25 21:00 Insulin Glargine (Lantus) 5 Unit/0.05 Ml (Per 5 Units) SC 04/17/25 20:59 HS LISETTE Insulin Human Lispro 6 unit 03/18/25 17:30 03/18/25 17:38 Insulin Lispro (Admelog) 1 Unit/0.01 Ml Unit SC 04/17/25 17:29 6 unit TIDWM LISETTE Administration Insulin Human Lispro 0 unit 03/18/25 21:00 Insulin Lispro (Admelog) 1 Unit/0.01 Ml Unit SC 04/17/25 20:59 ACHS ON LICENSE OF [facility] Protocol Levalbuterol HCl 0.63 mg 03/15/25 00:00 03/18/25 12:45 Levalbuterol Rt 0.63 Mg/3 Ml Nebu INH 04/14/25 00:00 0.63 mg Q6HR LISETTE Administration Levothyroxine Sodium 100 mcg 03/15/25 06:00 03/18/25 05:45 Levothyroxine Sodium 100 Mcg Tablet PO 04/14/25 05:59 100 mcg ACBR LISETTE Administration Ondansetron HCl 4 mg 03/14/25 23:46 Ondansetron Inj 2 Mg/Ml Inj 2 Ml IVP 04/13/25 23:45 Q6H PRN NAUSEA OR VOMITING Protocol Pantoprazole Sodium 40 mg 03/17/25 17:00 03/18/25 09:09 Pantoprazole Inj 40 Mg Vial IVP 04/16/25 16:59 40 mg QDAY LISETTE Administration Prednisone 20 mg/ Prednisone 30 mg 03/15/25 12:00 03/18/25 09:09 10 mg PO 04/14/25 11:59 30 mg QDAY LISETTE Administration Sennosides 1 tab 03/15/25 09:00 03/18/25 09:09 Senna Tablet PO 04/14/25 08:59 1 tab QDAY LISETTE Administration Protocol Plan Assessment: 89-year-old female with PMHx of ILD/pulmonary fibrosis, chronic respiratory failure on 2 L home oxygen and BiPAP, HFpEF, bedbound, recurrent UTI, hypothyroidism, right breast cancer s/p lumpectomy, T2DM, GERD, depression, chronic back pain, known to us for recurrent admission for hypercapnic respiratory failure, presenting to the ED with acute altered mental status in setting of mild acute on chronic hypercapnic respiratory failure and possible UTI. #Acute encephalopathy (resolved) #Acute hypercapnic respiratory failure #Chronic respiratory failure #Appropriately compensated Acute vs. Chronic Respiratory Acidosis #Worsening ILD/pulmonary fibrosis She has chronic ILD/pulmonary fibrosis leading to chronic respiratory failure, chronic CO2 retention, requiring daily BiPAP and home oxygen. She has recurrent admission AMS 2/2 hypercapnic respiratory failure as a result. Prognosis remains poor, likely will continue to worsen with time. Recently was discharged on prolonged STEROID taper which she is currently taking. Presenting with acute AMS, likely poor BIPAP tolerance and worsening lung disease as described above. No pneumonia seen on x-ray. No signs of vascular congestion or lower extremity edema. Admission ABG was acidotic with hypercapnia, however improved significantly after BiPAP. He also received a dose of bicarb in ED. ? DuoNebs q.6h. PRN ? Continue BiPAP HS and PRN. ? Continue home PRENISONE 30 mg QDAY (discharge on steroid taper. following previous admission plan) ? Continue LASIX 20 mg daily PRN (currently euvolemic) #T2DM Reportedly, she was refusing oral feeds over the last few days, home GLUCOSE was 75 the morning of admission with baseline around 160. Admission GLUCOSE 135. A1c 7.9 from 01/26/2025. AM blood glucose, 03/18, 179 Fingerstick glucose, 03/18, 342 after meal ? Glargine 10u ? INSULIN sliding scale Step 3 - Lispro 3u TIDWM --> 6 units (03/18/25) ? Accu-Cheks #UTI, Pseudomonas aeruginosa #Hx Pseudomonas aeruginosa UA again showing UTI, and she has chronic UTIs on previous admissions. Previous culture grew Pseudomonas aeruginosa's, sensitive to ZOSYN. Completed a course of ANTIBIOTICS. Currently asymptomatic ? Continue ZOSYN (03/15 to present), 1 more day of IV abx then stop #HFpEF EF 65% Echocardiogram from 12/2024 showed EF 65%, trace mitral and tricuspid regurg, no wall motion abnormalities. However, she has chronic fluid retention for which she takes LASIX 20 mg daily. CXR showing vascular congestion and mild bilateral ankle blunting. Renal function within normal limits ? Continue LASIX 20 mg PRN ? Strict NARINDER's ? Monitor renal function #Hypothyroidism TSH WNL. ? Continue home LEVOTHYROXINE 100 mcg daily #Dysphagia #Esophageal stenosis s/p dilation #Chronic constipation On last admission, she had EGD with dilation for dysphagia secondary to esophageal stenosis. Speech recommended Dysphagia 3 diet. Health maintenance Diet: Dysphagia 3, CHO consistent GI prophylaxis: PROTONIX DVT prophylaxis: HEPARIN SUBQ Antibiotics: ZOSYN CODE STATUS: FULL CODE Patient was seen at bedside and discussed with attending physician Dr. Gonzalez and supervising resident Dr. Aguila. Brett Casey MD PGY-1 Attending Provider Attestation/Addendum Niya, Kaylynn Gonzalez, DO, attest that I was physically present for the mackenzie portions of the service and evaluated the patient with the resident and I reviewed and discussed the case with the resident and agree with the resident's findings and plans of care as documented above Patient seen and evaluated this AM. Patient is somnolent this AM. Blood glucose has been uncontrolled 2/2 prednisone and as patient is diet is advanced while BiPap is not needed throughout the day. Patient used BiPap overnight. She has no acute complaints at this time. STEVE noted with tachycardia and Cr of 1.4. Will hold lasix and give IV fluid bolus. Automatic Edger at bedside. She states patient is not back at her baseline at this time as she has been more drowsy.
[2025-03-18] MEDS: INSULIN GLARGINE (Lantus) 5 UNIT/0.05 ML (PER 5 UNITS) 10 UNIT SC (21:14)
[2025-03-19] VITALS (9 sets, daily range): BP systolic 110–128; BP diastolic 54–75; PULSE 75–117; RESP 14–28; TEMP 36.1–36.7; O2SAT 91–100
[2025-03-19] MEDS: LEVALBUTEROL RT 0.63 MG/3 ML NEBU INH ×3 (00:18→12:49)
[2025-03-19] MEDS: PIPER/TAZO 3.375 GM PREMIX 3.375 GM/50 ML BAG IV (05:39)
[2025-03-19] MEDS: LEVOTHYROXINE SODIUM 100 MCG TABLET PO (05:39)
[2025-03-19] MEDS: INSULIN LISPRO (AdmeLOG) 1 UNIT/0.01 ML UNIT 6 UNIT SC ×2 (07:43→11:19)
[2025-03-19] MEDS: INSULIN LISPRO (AdmeLOG) 1 UNIT/0.01 ML UNIT SC ×2 (07:44→11:19)
--- NOTE | 2025-03-19 08:45 | PC.NURSE ---
MD made aware that patient had no recent coagulation labs avilble and had an order for heparin, RN noticed bruising on patient's hands and arms. Orders for stat labs to be ordered by
[2025-03-19 09:59] LABS: Basophils # (Auto) 0.1 Thou/mm3 (0.0-0.2); Basophils % (Auto) 1 % (0-2.5); Eosinophils # (Auto) 0.3 Thou/mm3 (0.0-0.5); Eosinophils % (Auto) 2 % (0-10); Hematocrit 36.2 % (36.0-46.0); Hemoglobin 10.9 g/dL (12.0-16.0); Immature Granulocytes Auto 0.30 Thou/mm3 (0.00-0.00); Lymphocytes # (Auto) 1.8 Thou/mm3 (1.0-4.8); Lymphocytes % (Auto) 15 % (10-50); Mean Corpuscular HGB Conc 30.1 g/dl (31.0-37.0); Mean Corpuscular Hemoglobin 29.1 pg (25.0-35.0); Mean Corpuscular Volume 97 fL (80-100); Monocytes # (Auto) 0.7 Thou/mm3 (0.0-0.8); Monocytes % (Auto) 6 % (0-12); Neutrophils # (Auto) 9.3 Thou/mm3 (1.8-7.7); Neutrophils % (Auto) 75 % (37-80); Nucleated Red Blood Cell # 0.00 Thou/mm3 (0.00-0.00); Nucleated Red Blood Cell % 0 /100 WBC (0); Platelet Count 221 Thou/mm3 (140-440); RDW Standard Deviation 62.4 fL (36.4-46.3); Red Blood Count 3.75 Miln/mm3 (4.00-5.20); White Blood Count 12.4 Thou/mm3 (3.6-11.0)
[2025-03-19 10:09] LABS: Alanine Aminotransferase 53 U/L (10-49); Albumin, Serum 3.4 gm/dL (3.4-4.8); Albumin/Globulin Ratio 1.9 (1.2-2.2); Alkaline Phosphatase 53 U/L (46-116); Anion Gap 8 (7-16); Aspartate Amino Transferase 44 U/L (0-34); BUN/Creatinine Ratio 22 Ratio (12-20); Bilirubin,Total 0.5 mg/dL (0.3-1.2); Blood Urea Nitrogen 26 mg/dL (9-23); Calcium 9.2 mg/dL (8.3-10.6); Calcium (Corrected) 9.7 mg/dL (8.5-10.1); Carbon Dioxide 36.8 mMol/L (20.0-31.0); Chloride 96 mMol/L (98-107); Creatinine (Component) 1.2 mg/dL (0.6-1.3); Estimated Creatinine Clearance 36.4 mL/min (>60); Globulin 1.8 gm/dL (2.3-3.5); Glucose 252 mg/dL (74-106); Osmolality,Calculated 294 (275-295); Potassium 3.4 mMol/L (3.4-5.1); Sodium 141 mMol/L (136-145); Total Protein 5.2 gm/dL (5.7-8.2); eGFR 44 See Note
--- NOTE | 2025-03-19 11:40 | ESDS_ITS ---
<Statement entered by Kaylynn Gonzalez DO - 03/20/25 14:10> I, Kaylynn Gonzalez DO, attest that I was physically present for the mackenzie portions of the service and evaluated the patient with the resident and I reviewed and discussed the case with the resident and agree with the resident's findings and plans of care as documented above Planned Discharge Date 03/19/25 DS: Providers Provider Date of admission: 03/15/25 15:42 Primary care physician: Physician No Primary/Family Admitting Provider: German Benitez MD Attending Provider on Admission: Kaylynn Gonzalez DO Consults: 03/15/25 06:33 Referral Haley Routine Comment: 03/15/25 08:00 Referral Physical Therapy Routine Comment: Physician Instructions: 03/16/25 12:34 Referral Registered Dietitian Routine Comment: Attending Provider on DC: Kaylynn Gonzalez DO Discharging Provider: Kaylynn Gonzalez DO DS: Diagnosis Problem List Completed Was Problem List Reviewed/Reconciled?: Yes Hospital Course Hospital Course Hospital course: 89-year-old female with PMHx of ILD/pulmonary fibrosis, chronic respiratory failure on 2 L home oxygen and BiPAP, HFpEF, bedbound, recurrent UTI, hypothyroidism, right breast cancer s/p lumpectomy, T2DM, GERD, depression, chronic back pain, known for recurrent admission for hypercapnic respiratory failure who was admitted to [facility] on 03/14/2025 for Acute encephalopathy 2/2 UTI. In the ED, patient presented normotensive, mildly tachycardic heart rate 98, respiratory rate 20, afebrile satting 99 on initially 4 L nasal cannula but then requiring BiPAP. Pertinent lab findings included WBC 12.3, hemoglobin 10.5 with MCV of 98, platelet 239, ABG showed pH of 7.33, CHV956, PO2 of 132, bicarb 36, BUN 30, creatinine 1.1, EGFR 48, magnesium 1.5, troponin less than 0.020, BNP 141. Urinalysis did not show any signs of bacterial infection. EKG showed sinus tachycardia with right bundle branch block and chest x-ray showed mild heart failure pattern with pulmonary arterial hypertension. Medicine was consulted and patient was admitted to the floors. While pt was on the floors, she continued with broad spectrum IV Zosyn, her home meds, and biPAP. Insulin bolus was started as her sugars were liable, especially her bedside glucose. Her urine culture resulted to Pseudomonas in which she received 3 days of treatment for. She developed a prerenal STEVE while admitted which was resolved with fluids. Pt's mentation improved back to her baseline upon d/c. Pt was then discharged with the following instructions Discharge Instructions: Follow up with PCP within one week Continue using your biPAP and prednisone taper Take your new insulin doses as prescribed. I am prescribing you insulin with meals. Adjust doses based off your sugar levels. Follow up with PCP for further management I am stopping your glimepiride medicine We recommend using Tylenol over Turner as this medicine can make you sleepy and lethargic. Return to ER if your symptoms worsen or return Problem List: #Acute encephalopathy (resolved) #Acute hypercapnic respiratory failure #Chronic respiratory failure #Prerenal STEVE #Appropriately compensated Acute vs. Chronic Respiratory Acidosis #Hx of pulmonary fibrosis #Insulin Dependent Type II DM #UTI, Pseudomonas aeruginosa #HFpEF EF 65% #Hypothyroidism #Dysphagia #Esophageal stenosis s/p dilation #Chronic constipation Discharge summary was reviewed with my attending Dr. Carlos Aguila, PGY-2 Time Spent with Patient Time attestation: Total time spent providing and/or coordinating discharge services: Time spent: Greater than 30 minutes Exam Vital Signs Temp Pulse Resp BP Pulse Ox O2 Del Method O2 Flow Rate 97.0 F 90 18 128/54 L 95 Nasal Cannula 2 03/19/25 08:00 03/19/25 08:00 03/19/25 08:00 03/19/25 08:00 03/19/25 08:00 03/19/25 08:00 03/19/25 06:11 FiO2 30 03/19/25 04:35 Narrative Exam GENERAL Obese elderly female, NAD, ANOx3. HEENT NCAT. ALBERT. Oral mucosa is moist. Patent Nares NECK Supple, nontender, no JVD. CHEST RRR, no m/g/r. CTAB, no w/r/r, symmetrical expansion. ABDOMEN Soft, flat, nontender. No guarding/rebound tenderness/masses. Bowel sounds presents EXTREMITIES No edema/cyanosis. SKIN Warm and dry, no jaundice/rashes. NEUROMUSCULAR Moves all 4 extremities well, with full ROM and good CSM. No focal neurologic deficits. PSYCHIATRY Normal mood and affect, cooperative, no SI or HI or hallucinations. Discharge Plan Plan Patient Disposition: Home w/HOME HEALTH Patient condition on transfer: Stable Care Plan Goals: Discharge Instructions: Follow up with PCP within one week Continue using your biPAP and prednisone taper Take your new insulin doses as prescribed. I am prescribing you insulin with meals. Adjust doses based off your sugar levels. Follow up with PCP for further management I am stopping your glimepiride medicine We recommend using Tylenol over Turner as this medicine can make you sleepy and lethargic. Return to ER if your symptoms worsen or return Prescriptions/Referrals Prescriptions/Med Rec: New insulin glargine 100 unit/mL solution 15 unit subcut QAM 30 Days Qty: 10 0RF Rx Instructions: Inject 15 units subcutaneously every day insulin lispro 100 unit/mL solution 6 unit subcut TID 30 Days Qty: 10 1RF Rx Instructions: Inject 6 units subcutaneously three times daily with meals Continued methenamine hippurate 1 gram tablet 1 g PO BID Patient Comments: TAKE 1 TABLET BY MOUTH TWICE A DAY WITH 500 MG OF VITAMIN C Rx Instructions: TAKE 1 TABLET BY MOUTH TWICE A DAY WITH 500 MG OF VITAMIN C venlafaxine 150 mg capsule,extended release 24hr 150 mg PO QDAY omeprazole 40 mg Capsule,Delayed Release(Dr/Ec) 40 mg PO QDAY rosuvastatin 5 mg Tablet 5 mg PO HS aspirin 81 mg Tablet 81 mg PO QDAY ascorbic acid (vitamin C) [Vitamin C] 500 mg Tablet 500 mg PO BID metoprolol succinate 25 mg Tablet Extended Release 24 Hr 25 mg PO QDAY Qty: 30 0RF prednisone 10 mg tablet See Taper PO QDAY Qty: 360 0RF Taper: Prednisone Taper 40 mg DAILY for 30 Days and 0 Hour 30 mg DAILY for 30 Days and 0 Hour 20 mg DAILY for 30 Days and 0 Hour 10 mg DAILY for 30 Days and 0 Hour 5 mg DAILY for 30 Days and 0 Hour Rx Instructions: Take 40 mg (4, 10 mg tablets) for 30 days, then Take 30 mg (3, 10 mg tablets) for 30 days, then Take 20 mg (2, 10 mg tablets) for 30 days, then Take 10 mg (1, 10 mg tablet) for 30 days, then Take 5 mg (1/2, 10 mg tablet) for 30 days levothyroxine 100 mcg tablet 100 mcg PO QDAY Azo Cranberry 250 mg tablet,chewable 500 mg PO QDAY Magnesium Complex 300 mg magnesium tablet 80.5 mg PO QDAY metformin 500 mg tablet 1,000 mg PO BID insulin aspart U-100 [Novolog FlexPen U-100 Insulin] 100 unit/mL (3 mL) insulin pen 1 sliding scale dose subcut USEASDIRECTD PRN (Reason: hyperglycemia) Rx Instructions: Take insulin as per sliding scale hydrocodone-acetaminophen 10-325 mg tablet 1 tab PO TID PRN (Reason: pain) pramipexole 0.5 mg tablet 1 mg PO HS Patient Comments: TAKE 1 TABLET BY MOUTH EVERYDAY AT BEDTIME Probiotic 20 billion cell capsule 25,000 mmu cells PO QDAY Rx Instructions: administer with a meal calcium carbonate-vitamin D3 [Calcium 600 + D(3)] 600 mg-5 mcg (200 unit) tablet 0.5 tab PO QDAY Held furosemide 40 mg tablet 40 mg PO QAM Hold Instructions: resume with pcp Patient Comments: TAKE 1 TABLET BY MOUTH EVERY DAY IN THE MORNING acetazolamide 250 mg Tablet 250 mg PO BID Qty: 60 0RF Hold Instructions: resume with PCP cranberry 500 mg capsule 1,000 mg PO QDAY Hold Instructions: resume with PCP Rx Instructions: administer with a meal Discontinued levothyroxine 75 mcg Tablet 100 mcg PO QAM Rx Instructions: pt now taking 100 MCG insulin glargine [Lantus U-100 Insulin] 100 unit/mL solution 20 unit SUBCUT HS insulin lispro [Humalog KwikPen Insulin] 100 unit/mL insulin pen 1 sliding scale dose subcut USEASDIRECTD Qty: 15 3RF glimepiride 2 mg tablet 2 mg PO BID Referrals: No Primary/Family,Physician [Primary Care Provider] - Patient/Caregiver Discharge Instructions Discharge Activity: activity as tolerated Education Materials: Pulmonary Fibrosis, ED CYSTITIS Female Adult Print Language: German Stand Alone Forms: [employer] Award Info., Patient Portal Info Letter Discharge Order Discharge Orders: Discharge (Routine); Ordered 03/19/25 Ordered By: Liborio Aguila Quality Discharge Quality Measures VTE prophylaxis
--- NOTE | 2025-03-19 12:11 | PC.NURSE ---
SS notified of patient's need for transport for discharge. Discharge pending transport arrangement.
--- NOTE | 2025-03-19 12:18 | PC.SS ---
SS spoke to pt terrance Reynajodi Coffman in regards to DC today. Per Jg pt needs ambulance transport. SS inquired if pt possess [employer] as we do not have it on file. Per Jg she does not. SS explained oop cost for ambulance transport, at this time [facility] is unavailable today which is who he has used before. [facility] cost varies and paper needs to be filled out. Jg is unavailable to come to hospital. [facility] will be granted 1x.
--- NOTE | 2025-03-19 14:44 | PC.CC ---
Patient established with [facility], referral sent via [employer], pending SOC date.
--- NOTE | 2025-03-20 18:37 | PC.CM ---
Patient established with [facility], referral sent via [facility] [employer], pending SOC date.
== END 2025-03-19 16:04 | disposition home health service (06) | DRG 196 ==
LOC: SERX 15:44 → SERHOLD 23:56 → S3SX 03-15 04:24
PROVIDERS: Emergency Medicine; Admitting Provider Internal Medicine; Emergency Provider Emergency Medicine; Visit Provider Internal Medicine
DX: J84.10 Pulmonary fibrosis, unspecified (principal); J96.22 Acute and chronic respiratory failure with hypercapnia; I50.32 Chronic diastolic (congestive) heart failure; N39.0 Urinary tract infection, site not specified; G93.49 Other encephalopathy; J84.9 Interstitial pulmonary disease, unspecified; K21.9 Gastro-esophageal reflux disease without esophagitis; G89.29 Other chronic pain; F32.A Depression, unspecified; I11.0 Hypertensive heart disease with heart failure; Z99.81 Dependence on supplemental oxygen; E03.9 Hypothyroidism, unspecified; E11.9 Type 2 diabetes mellitus without complications; I27.21 Secondary pulmonary arterial hypertension; Z79.890 Hormone replacement therapy; K59.09 Other constipation; Z66 Do not resuscitate; Z79.84 Long term (current) use of oral hypoglycemic drugs; Z68.36 Body mass index [BMI] 36.0-36.9, adult; Z90.49 Acquired absence of other specified parts of digestive tract; Z85.3 Personal history of malignant neoplasm of breast
CPT/HCPCS: 36415; 36600; 71045; 80048; 80053; 80069; 81001; 82803; 83605; 83690; 83735; 83880; 84100; 84145; 84484; 85025; 85610; 85730; 87040; 87077; 87081; 87086; 87186; 87811; 93005; 93225; 94640; 94660; 96365; 96366; 96375; 97161; 99284; G0378; J1644; J1815; J1938; J1956; J2470; J2543; J3475; J7120; J7512; A9270

== ENCOUNTER 2025-05-04 13:40 | Outpatient (AMB) | payer MEDICARE, SELFPAY ==
--- NOTE | 2025-05-04 13:40 | ACNOTE_ITS ---
<Statement entered by Qamar Cruz MD - 05/11/25 14:35> Attending note: I, Qamar Cruz MD, attest that I was physically present for the mackenzie portions of the service and evaluated the patient with the resident and I reviewed and discussed the case with the resident and agree with the resident's findings and plans of care as documented above. Allergies/Meds Allergies & Medications Allergies cefuroxime Allergy (Intermediate, Verified 05/04/25 13:41) Swelling of Lip/Tongue/Throat zinc Allergy (Intermediate, Verified 05/04/25 13:41) Rash iodine Allergy (Unknown, Verified 05/04/25 13:41) shellfish derived Allergy (Unknown, Verified 05/04/25 13:41) Sulfa (Sulfonamide Antibiotics) Allergy (Unknown, Verified 05/04/25 13:41) Influenza Virus Vaccines Allergy (Verified 05/04/25 13:41) Medication Reconciliation methenamine hippurate 1 gram tablet 1 g PO BID 04/18/20 [History Confirmed 05/04/25] omeprazole 40 mg capsule,delayed release 40 mg PO QDAY 06/04/21 [History Confirmed 05/04/25] ascorbic acid (vitamin C) 500 mg tablet (Vitamin C) 500 mg PO BID 03/19/24 [History Confirmed 05/04/25] aspirin 81 mg tablet 81 mg PO QDAY 03/19/24 [History Confirmed 05/04/25] calcium 600 mg (as carbonate)-vitamin D3 5 mcg (200 unit) tablet (Calcium 600 + D(3)) 0.5 tab PO QDAY 12/27/24 [History Confirmed 05/04/25] cranberry 500 mg capsule 1,000 mg PO QDAY 12/27/24 [History Confirmed 05/04/25] Held on 03/19/25. Instructions: resume with PCP hydrocodone 10 mg-acetaminophen 325 mg tablet 1 tab PO TID PRN pain 12/27/24 [History Confirmed 05/04/25] lactobacillus comb no.10 20 billion cell capsule (Probiotic) 25,000 mmu cells PO QDAY 12/27/24 [History Confirmed 05/04/25] prednisone 10 mg tablet See Taper PO QDAY #360 tabs 02/11/25 [Rx Confirmed 05/04/25] cranberry fruit concentrate 250 mg chewable tablet (Azo Cranberry) 500 mg PO QDAY 02/15/25 [History Confirmed 05/04/25] furosemide 40 mg tablet 40 mg PO QAM 02/15/25 [History Confirmed 05/04/25] Held on 03/19/25. Instructions: resume with pcp levothyroxine 100 mcg tablet 100 mcg PO QDAY 02/15/25 [History Confirmed 05/04/25] acetazolamide 250 mg tablet 250 mg PO BID #60 tabs 02/22/25 [Rx Confirmed 05/04/25] Held on 03/19/25. Instructions: resume with PCP magnesium carb,citrate,oxide (Magnesium Complex) 80.5 mg PO QDAY 03/15/25 [History Confirmed 05/04/25] metformin 500 mg tablet 1,000 mg PO BID 03/15/25 [History Confirmed 05/04/25] pramipexole 0.5 mg tablet 1 mg (2 x 0.5 mg) PO HS 1 month #60 tabs 04/14/25 [Rx Confirmed 05/04/25] rosuvastatin 5 mg tablet 5 mg PO HS 1 month #30 tabs 04/14/25 [Rx Confirmed 05/04/25] insulin aspart U-100 100 unit/mL (3 mL) subcutaneous pen (Novolog FlexPen U-100 Insulin aspart) 1 sliding scale dose subcut USEASDIRECTD PRN hyperglycemia #15 mL 05/04/25 [Rx] insulin glargine 100 unit/mL (3 mL) subcutaneous pen (Lantus Solostar U-100 Insulin) 15 unit (0.15 mL) subcut QAM #15 mL 05/04/25 [Rx] insulin lispro 100 unit/mL subcutaneous solution 6 unit (0.06 mL) subcut TID 1 month #10 mL 05/04/25 [Rx] insulin lispro 200 unit/mL (3 mL) subcutaneous pen 1 sliding scale dose subcut USEASDIRECTD #6 mL 05/04/25 [Rx] metoprolol succinate 25 mg tablet,extended release 24 hr 25 mg PO QDAY #30 tabs 05/04/25 [Rx] pen needle, diabetic 31 gauge x 1/4 (1st Tier Unifine Pentips) #100 ea 05/04/25 [Rx] pramipexole 1 mg tablet 1 mg PO QHS #30 tabs 05/04/25 [Rx] venlafaxine 150 mg capsule,extended release 24 hr 150 mg PO QDAY #30 caps 05/04/25 [Rx] NOVA Intake Visit Data Collection New Patient or Established: Established Patient (seen at [facility] within 3 years) Seen by Clinical Staff ONLY (RN/MA): No Pain Present Currently: No Pain scale:: 0 Pain Scale Used: Fernandez-Dorsey/Numerical PCP or OBGYN visit in last 3 months: Yes Smoking Status Smoking Status: Never smoker For Televisit only Telemed Video/Phone Visit: Yes Verbal consent obtained for Telemed visit?: Yes Verbal Consent witness name: VANIA Telemed Video/Phone visit w/Clinical Staff: 21-30 min Immunization / Flu Flu Vaccine in the Last 12 Months: No Flu Vaccine Exclusion Criteria: No Exclusion Criteria Past Medical History Past Medical History NEUROLOGIC: Negative Neurological Disorders, Cerebrovascular Accident, Transient Ischemic Attacks (TIA), Dementia, Alzheimer's Disease, Parkinson's Disease, Brain Tumor, Meningitis, Seizures, Epilepsy, Multiple Sclerosis, Cerebral Palsy, Amyotrophic Lateral Sclerosis (ALS/Dee Gehrig's), Guillain-Dundas Syndrome, Spina Bifida, Paralysis, Peripheral Neuropathy, Salcido's Palsy, Subdural Hematoma, Migraine, Head Trauma, Spinal Cord Injury or Traumatic Brain Injury CARDIAC: Positive Cardiac Disorders, Coronary Artery Disease, Hypercholesterolemia, Congestive Heart Failure and Hypertension; Negative Myocardial Infarction, Cardiac Arrhythmia, Atrial Fibrillation, Angina, Heart Murmur, Atherosclerotic Heart Disease, Peripheral Vascular Disease, Aneurysm, Congenital Heart Disease, Valvular Heart Disease, Rheumatic Fever, Cardiomyopathy, Edema, Pericarditis, Cellulitis, Deep Vein Thrombosis, Hypotension or Varicose Veins RESPIRATORY: Positive Asthma, Pneumonia, Pulmonary Fibrosis and Sleep Apnea; Negative Chronic Obstructive Pulmonary Disease (COPD), Bronchitis, Emphysema, Cystic Fibrosis, Tuberculosis, Pulmonary Embolism or Pulmonary Edema GASTROINTESTINAL: Positive Gastrointestinal Disorders (Chronic Constipation), Gall Bladder Disease, Gastroesophageal Reflux Disease and Obesity; Negative Hepatitis, Cirrhosis, Pancreatitis, Celiac Disease, Gastrointestinal Bleed, Esophageal Varices, White's Esophagus, Colitis, Ulcerative Colitis, Diverticulitis, Diverticulosis, Ulcer, Colorectal Cancer, Irritable Bowel, Crohn's Disease, Obstructive Bowel, Hiatal Hernia or Hemorrhoids GENITOURINARY: Positive Genitourinary Disorders and Kidney Stones; Negative Renal Disease, Polycystic Kidney Disease, Neurogenic Bladder, Inguinal Hernia, Dialysis, Prostate Cancer or Benign Prostatic Hyperplasia REPRODUCTIVE: Positive Breast Cancer; Negative Endometriosis, Genital Herpes, Gonorrhea, Pelvic Inflammatory Disease, Previous Pregnancies, Syphilis, Testicular Cancer or Uterine Prolapse MUSCULOSKELETAL: Positive Arthritis and Fractures; Negative Muscular Dystrophy, Myasthenia Gravis, Marfan's Syndrome, Bone Cancer, Rheumatoid Arthritis, Osteoporosis, Degenerative Disk Disease, Gout, Scoliosis, Carpal Tunnel Syndrome, Fibromyalgia, Degenerative Joint Disease, Osteomyelitis or Poliovirus ENT: Negative Cataracts, Glaucoma, Blind, Retinal Detachment, Macular Degeneration, Ear Infection, Deafness, Head Trauma or Eye Prosthesis ENDOCRINE: Positive Endocrine Disorders, Diabetes Mellitus Type 2 and Hypothyroidism; Negative Diabetes Mellitus Type 1, Hypoglycemia, [place]'s Syndrome, Hilario's Disease, Hyperthyroidism, Parathyroid Disease, Pituitary Disease, Systemic Lupus Erythematosus, Syndrome of Inappropriate Antidiuretic Hormone (SIADH), Adrenal Disease or Graves' Disease HEMATOLOGIC: Negative Blood Disorders, Anemia, Leukemia, Hemophilia, Lennox lassemia, Sickle Cell Disease or Clotting Problems PSYCHO/SOCIAL: Positive Depression and Anxiety; Negative Psychiatric Problems, Schizophrenia, Recreational Drug Use, Bipolar Disorder, Behavior Problems, Self-Mutilation, Attention Deficit Disorder, Attention Deficit Hyperactivity Disorder, Depression, Post Traumatic Stress Disorder or Eating Disorder OTHER HISTORY: Positive Cancer and Breast Cancer; Negative Hospitalization, Down Syndrome, Autism, Developmental Delay, Shingles, Falls, Blood Transfusions, Blood Transfusion Reaction, Anesthesia Reactions, Organ Transplant, Chemotherapy, Radiation Therapy, Hyperbaric Therapy, MRSA, VRSA, Vancomycin-Resistant Enterococci, Human Immunodeficiency Virus (HIV), Chicken Pox, Measles, Mumps, Rubella (Dutch Measles), Pertussis, Clostridium Difficile, Cervical Cancer, Colorectal Cancer, Lung Cancer, Ovarian Cancer, Prostate Cancer or Testicular Cancer Family History FAMILY HISTORY: Positive Family Cardiac Disorders and Family Cancer; Negative Family Psychiatric Problems, Family Respiratory Disorders, Family Gastrointestinal Problems, Family Surgery or Family Anesthesia Reaction Surgical History SURGICAL: Positive Tonsillectomy, Abdominal Surgery and Lumpectomy; Negative Cardiac Surgery, Open Heart Surgery, Coronary Artery Bypass Graft, Valve Replacement, Vascular Surgery, Coronary Stent, Cardiac Catheterization, Pacemaker, Angiogram, Auto Implanted Cardiovert Defib, Carotid Endarterectomy, Endocrine Surgery, Thyroidectomy, Ear Surgery, Tympanostomy Tube, Eye Surgery, Nose Surgery, Oral Surgery, Adenoidectomy, Cochlear Implant, Corneal Transplant, Throat Surgery, Tracheostomy, Gastric Bypass Surgery, Gastrostomy, Bowel Surgery, Nephrectomy, Transurethral Resection, Joint Replacement, Amputation, Open Reduction Internal Fixation, Arthroscopy, Neurologic Surgery, Brain Shunt, Mastectomy, Hysterectomy, Tubal Ligation, Section or Organ Transplant Social History SMOKING STATUS: Smoking status: Never smoker SECOND HAND EXPOSURE: second hand exposure: No ALCOHOL: Alcohol Intake: Never ALCOHOL FREQUENCY: Alcohol Intake Frequency: holidays/special occasions only HOUSING: Housing: House LIVES WITH: Lives With: Family Patient [place] Social History Living Situation History Housing: House Housing Other:: Patient resides at home with her caregivers. Tobacco History Smoking Status: Never smoker Second Hand Smoke Exposure: No Alcohol History Alcohol Intake: Never Alcohol Intake Frequency: holidays/special occasions only Review of Systems Report any current symptoms Only answer those that you have currently: Past Medical History Past Medical History Have you ever been diagnosed with any of the following: Neurological Problems Cerebrovascular Accident (CVA): No Transient Ischemic Attacks (TIA): No Dementia: No Alzheimer's Disease: No Parkinson's Disease: No Brain Tumor: No Meningitis: No Seizures: No Epilepsy: No Multiple Sclerosis: No Cerebral Palsy: No Amyotrophic Lateral Sclerosis (ALS/Dee Gehrig's): No Guillain-Dundas Syndrome: No Spina Bifida: No Paralysis: No Peripheral Neuropathy: No Salcido's Palsy: No Subdural Hematoma: No Migraine: No Head Trauma: No Spinal Cord Injury: No Traumatic Brain Injury: No Cardiology Problems Myocardial Infarction: No Cardiac Arrhythmia: No Atrial Fibrillation: No Angina: No Heart Murmur: No Coronary Artery Disease: Yes Atherosclerotic Heart Disease: No Peripheral Vascular Disease: No Hypercholesterolemia: Yes Aneurysm: No Congestive Heart Failure: Yes Congenital Heart Disease: No Valvular Heart Disease: No Rheumatic Fever: No Cardiomyopathy: No Edema: No Pericarditis: No Cellulitis: No Deep Vein Thrombosis: No Hypertension: Yes Hypotension: No Varicose Veins: No Respiratory Problems Chronic Obstructive Pulmonary Disease (COPD): No Asthma: Yes Bronchitis: No Emphysema: No Pneumonia: Yes Pulmonary Fibrosis: Yes Tuberculosis: No Pulmonary Embolism: No Pulmonary Edema: No Sleep Apnea: Yes Stomache/Intestinal Problems Hepatitis: No Cirrhosis: No Pancreatitis: No Celiac Disease: No Gall Bladder Disease: Yes Gastrointestinal Bleed: No Esophageal Varices: No White's Esophagus: No Colitis: No Ulcerative Colitis: No Diverticulitis: No Diverticulosis: No Ulcer: No Colorectal Cancer: No Irritable Bowel: No Crohn's Disease: No Obstructive Bowel: No Hiatal Hernia: No Hemorrhoids: No Gastroesophageal Reflux Disease: Yes Obesity: Yes Genital/Urinary Problems Renal Disease: No Kidney Stones: Yes Polycystic Kidney Disease: No Neurogenic Bladder: No Inguinal Hernia: No Dialysis: No Reproductive Problems Breast Cancer: Yes Endometriosis: No Genital Herpes: No Gonorrhea: No Pelvic Inflammatory Disease: No Previous Pregnancies: No Syphilis: No Uterine Prolapse: No Musculoskeletal Problems Muscular Dystrophy: No Myasthenia Gravis: No Marfan's Syndrome: No Bone Cancer: No Arthritis: Yes Rheumatoid Arthritis: No Osteoporosis: No Degenerative Disk Disease: No Gout: No Scoliosis: No Carpal Tunnel Syndrome: No Fibromyalgia: No Fractures: Yes Degenerative Joint Disease: No Osteomyelitis: No Poliovirus: No Head,Eye,Nose,Throat Problems Cataracts: No Glaucoma: No Blind: No Retinal Detachment: No Macular Degeneration: No Chronic Ear Infections: No Deafness: No Eye Prosthesis: No Endocrine Problems Diabetes Mellitus Type 1: No Diabetes Mellitus Type 2: Yes Hypoglycemia: No [place]'s Syndrome: No [place]'s Disease: No Hyperthyroidism: No Hypothyroidism: Yes Parathyroid Disease: No Pituitary Disease: No Systemic Lupus Erythematosus: No Syndrome of Inappropriate Antidiuretic Hormone: No Adrenal Disease: No Graves' Disease: No Blood Problems Anemia: No Leukemia: No Hemophilia: No Thalassemia: No Sickle Cell Disease: No Clotting Problems: No Psychologic Problems Schizophrenia: No Recreational Drug Use: No Bipolar Disorder: No Depression: Yes Anxiety: Yes Behavior Problems: No Self-Mutilation: No Attention Deficit Disorder: No Attention Deficit Hyperactivity Disorder: No Depression: No Post Traumatic Stress Disorder: No Eating Disorder: No Other Problems Hospitalization: No Down Syndrome: No Autism: No Developmental Delay: No Shingles: No Falls: No Blood Transfusions: No Blood Transfusion Reaction: No Anesthesia Reactions: No Organ Transplant: No Chemotherapy: No Radiation Therapy: No Hyperbaric Therapy: No MRSA: No VRSA: No Vancomycin-Resistant Enterococci: No Human Immunodeficiency Virus (HIV): No Chicken Pox: No Measles: No Mumps: No Rubella (Dutch Measles): No Pertussis: No Clostridium Difficile: No Cancer: Yes Cervical Cancer: No Lung Cancer: No Ovarian Cancer: No Surgical History Carotid Endarterectomy: No Coronary Artery Bypass Graft: No Valve Replacement: No Hysterectomy: No Pacemaker: No Thyroidectomy: No History of Present Illness HPI Narrative Ms. Coffman is a 89-year-old female with PMHx of ILD/pulmonary fibrosis, chronic respiratory failure on 2 L home oxygen and BiPAP, HFpEF, bedbound, recurrent UTI, hypothyroidism, right breast cancer s/p lumpectomy, T2DM, GERD, depression, chronic back pain, recurrent hospital admissions for hypercapnic respiratory failure who was again admitted to [facility] on 03/14/2025 - 03/19/25 for Acute encephalopathy 2/2 UTI. 05/04/25: This was a telemedicine appointment for follow up after hospitalizations. Pt has completed her antibiotics. Does not have any complaints right now. Currently pt is using prednisone taper which she will complete July 15. Pt has been strictly check her finger stick glucose with the help of her home health care social worker. Currently BG have been ranging between 99 to 274 in the last 10 days. Pt states she uses 6unit lispro AC and have had to use the additional sliding scale during lunch time only between (9-14 units) as well as Lantus 15 units AM. Pt also requested refils for her medications. Review of Systems Review of Systems Systems Reviewed: All systems reviewed, normal except as documented Objective/Exam Narrative Physical exam: televisit Assessment & Plan Diagnosis / Problem List (1) Type 2 diabetes mellitus: Status: Acute Qualifiers: Diabetes mellitus longwall shearer operator insulin use: without fci use Diabetes mellitus complication status: with hyperglycemia Qualified Code(s): E11.65 - Type 2 diabetes mellitus with hyperglycemia Assessment & Plan: -BG have been ranging between 99- 274 (the 200 range have been mostly before lunch) -A1c on 01/26/25 7.9 -Pt is currently using Lispro 6units plus sliding scale plus Lantus 15 units daily -Pt is currently on a longwall shearer operator prednisone taper which will end Jun, Plan: -Continue currently regimen and will readjust if needed after pt is done with prednisone taper in June Advanced Care Planning Advance care planning discussed with:: patient and other (home health care social worker VIANNEY) Office Procedures [facility] Level of Care Nursing/Assessment Patient Status: Established Patient Nursing Assessment/Reassessment: Medication Reconciliation and Update PMH in EMR Coordination of Care: Complex Care and Chronic Disease 1-5, Education Complex Pt/Fam and Staff clarify orders Established Patient Charge Established Patient Point Assignment: 70 Telehealth Telemed Phone/Video with patient at home & Dr,PA,RIDE OPERATOR: Yes
== END 2025-05-04 15:18 | disposition home or self-care (01) ==
LOC: HODAHC 13:40
PROVIDERS: Supervising Provider Internal Medicine
DX: E11.65 Type 2 diabetes mellitus with hyperglycemia (principal); Z79.4 Long term (current) use of insulin
CPT/HCPCS: 99212; G0463

== ENCOUNTER 2025-05-25 13:57 | Outpatient (AMB) | payer MEDICARE, SELFPAY ==
--- NOTE | 2025-05-25 13:58 | ACNOTE_ITS ---
Allergies/Meds Allergies & Medications Allergies cefuroxime Allergy (Intermediate, Verified 06/08/25 14:34) Swelling of Lip/Tongue/Throat zinc Allergy (Intermediate, Verified 06/08/25 14:34) Rash iodine Allergy (Unknown, Verified 06/08/25 14:34) shellfish derived Allergy (Unknown, Verified 06/08/25 14:34) Sulfa (Sulfonamide Antibiotics) Allergy (Unknown, Verified 06/08/25 14:34) Influenza Virus Vaccines Allergy (Verified 06/08/25 14:34) Medication Reconciliation methenamine hippurate 1 gram tablet 1 g PO BID 04/18/20 [History Confirmed 06/08/25] omeprazole 40 mg capsule,delayed release 40 mg PO QDAY 06/04/21 [History Confirmed 06/08/25] ascorbic acid (vitamin C) 500 mg tablet (Vitamin C) 500 mg PO BID 03/19/24 [History Confirmed 06/08/25] aspirin 81 mg tablet 81 mg PO QDAY 03/19/24 [History Confirmed 06/08/25] calcium 600 mg (as carbonate)-vitamin D3 5 mcg (200 unit) tablet (Calcium 600 + D(3)) 0.5 tab PO QDAY 12/27/24 [History Confirmed 06/08/25] hydrocodone 10 mg-acetaminophen 325 mg tablet 1 tab PO TID PRN pain 12/27/24 [History Confirmed 06/08/25] lactobacillus comb no.10 20 billion cell capsule (Probiotic) 25,000 mmu cells PO QDAY 12/27/24 [History Confirmed 06/08/25] rosuvastatin 5 mg tablet 5 mg PO HS 1 month #30 tabs 04/14/25 [Rx Confirmed 06/08/25] insulin aspart U-100 100 unit/mL (3 mL) subcutaneous pen (Novolog FlexPen U-100 Insulin aspart) 1 sliding scale dose subcut USEASDIRECTD PRN hyperglycemia #15 mL 05/04/25 [Rx Confirmed 06/08/25] metoprolol succinate 25 mg tablet,extended release 24 hr 25 mg PO QDAY #30 tabs 05/04/25 [Rx Confirmed 06/08/25] pramipexole 1 mg tablet 1 mg PO QHS #30 tabs 05/04/25 [Rx Confirmed 06/08/25] venlafaxine 150 mg capsule,extended release 24 hr 150 mg PO QDAY #30 caps 05/04/25 [Rx Confirmed 06/08/25] insulin syringes (disposable) 1 mL #500 ea 05/25/25 [Rx Confirmed 06/08/25] pen needle, diabetic 31 gauge x 1/4 (1st Tier Unifine Pentips) #100 ea 05/25/25 [Rx Confirmed 06/08/25] pen needle, diabetic 31 gauge x 1/4 (Comfort EZ Pen Mercedes) #100 ea 05/25/25 [Rx Confirmed 06/08/25] pen needle, diabetic 31 gauge x 3/16 (Advocate Pen Needle) #1,200 ea 06/02/25 [Rx Confirmed 06/08/25] prednisone 10 mg tablet See Taper PO QDAY #375 tabs 06/02/25 [Rx Confirmed 06/08/25] conjugated estrogens 0.625 mg/gram vaginal cream (Premarin) 1 mg topical .3 times weekly 1 month #30 grams 06/08/25 [Rx] hydroxyzine HCl 25 mg tablet 25 mg PO Q6HR PRN anxiety #120 tabs 06/08/25 [Rx] insulin glargine 100 unit/mL (3 mL) subcutaneous pen (Lantus Solostar U-100 Insulin) 35 unit (0.35 mL) subcut QAM 1 month #10.5 mL 06/08/25 [Rx] insulin lispro 100 unit/mL subcutaneous solution 8 unit (0.08 mL) subcut TID 1 month #7.2 mL 06/08/25 [Rx] metformin 500 mg tablet 500 mg PO BID #60 tabs 06/08/25 [Rx] insulin syringes (disposable) 1 mL #500 ea 06/29/25 [Rx] levothyroxine 100 mcg tablet 100 mcg PO QDAY 1 month #30 tabs 06/29/25 [Rx] MA Intake Visit Data Collection New Patient or Established: Established Patient (seen at [facility] within 3 years) Seen by Clinical Staff ONLY (RN/MA): No PCP or OBGYN visit in last 3 months: Yes Smoking Status Smoking Status: Never smoker For Televisit only Telemed Video/Phone Visit: Yes Verbal consent obtained for Telemed visit?: Yes Verbal Consent witness name: DOUGLAS Telemed Video/Phone visit w/Clinical Staff: 21-30 min Immunization / Flu Flu Vaccine in the Last 12 Months: No Flu Vaccine Exclusion Criteria: No Exclusion Criteria Past Medical History Past Medical History NEUROLOGIC: Negative Neurological Disorders, Cerebrovascular Accident, Transient Ischemic Attacks (TIA), Dementia, Alzheimer's Disease, Parkinson's Disease, Brain Tumor, Meningitis, Seizures, Epilepsy, Multiple Sclerosis, Cerebral Palsy, Amyotrophic Lateral Sclerosis (ALS/Dee Gehrig's), Guillain-Wittman Syndrome, Spina Bifida, Paralysis, Peripheral Neuropathy, Salcido's Palsy, Subdural Hematoma, Migraine, Head Trauma, Spinal Cord Injury or Traumatic Brain Injury CARDIAC: Positive Cardiac Disorders, Coronary Artery Disease, Hypercholesterolemia, Congestive Heart Failure and Hypertension; Negative Myocardial Infarction, Cardiac Arrhythmia, Atrial Fibrillation, Angina, Heart Murmur, Atherosclerotic Heart Disease, Peripheral Vascular Disease, Aneurysm, Congenital Heart Disease, Valvular Heart Disease, Rheumatic Fever, Cardiomyopathy, Edema, Pericarditis, Cellulitis, Deep Vein Thrombosis, Hypotension or Varicose Veins RESPIRATORY: Positive Asthma, Pneumonia, Pulmonary Fibrosis and Sleep Apnea; Negative Chronic Obstructive Pulmonary Disease (COPD), Bronchitis, Emphysema, Cystic Fibrosis, Tuberculosis, Pulmonary Embolism or Pulmonary Edema GASTROINTESTINAL: Positive Gastrointestinal Disorders (Chronic Constipation), Gall Bladder Disease, Gastroesophageal Reflux Disease and Obesity; Negative Hepatitis, Cirrhosis, Pancreatitis, Celiac Disease, Gastrointestinal Bleed, Esophageal Varices, White's Esophagus, Colitis, Ulcerative Colitis, Diverticulitis, Diverticulosis, Ulcer, Colorectal Cancer, Irritable Bowel, Crohn's Disease, Obstructive Bowel, Hiatal Hernia or Hemorrhoids GENITOURINARY: Positive Genitourinary Disorders and Kidney Stones; Negative Renal Disease, Polycystic Kidney Disease, Neurogenic Bladder, Inguinal Hernia, Dialysis, Prostate Cancer or Benign Prostatic Hyperplasia REPRODUCTIVE: Positive Breast Cancer; Negative Endometriosis, Genital Herpes, Gonorrhea, Pelvic Inflammatory Disease, Previous Pregnancies, Syphilis, Testicular Cancer or Uterine Prolapse MUSCULOSKELETAL: Positive Arthritis and Fractures; Negative Muscular Dystrophy, Myasthenia Gravis, Marfan's Syndrome, Bone Cancer, Rheumatoid Arthritis, Osteoporosis, Degenerative Disk Disease, Gout, Scoliosis, Carpal Tunnel Syndrome, Fibromyalgia, Degenerative Joint Disease, Osteomyelitis or Poliovirus ENT: Negative Cataracts, Glaucoma, Blind, Retinal Detachment, Macular Degeneration, Ear Infection, Deafness, Head Trauma or Eye Prosthesis ENDOCRINE: Positive Endocrine Disorders, Diabetes Mellitus Type 2 and Hypothyroidism; Negative Diabetes Mellitus Type 1, Hypoglycemia, [place]'s Syndrome, [place]'s Disease, Hyperthyroidism, Parathyroid Disease, Pituitary Disease, Systemic Lupus Erythematosus, Syndrome of Inappropriate Antidiuretic Hormone (SIADH), Adrenal Disease or Graves' Disease HEMATOLOGIC: Negative Blood Disorders, Anemia, Leukemia, Hemophilia, Thalassemia, Sickle Cell Disease or Clotting Problems PSYCHO/SOCIAL: Positive Depression and Anxiety; Negative Psychiatric Problems, Schizophrenia, Recreational Drug Use, Bipolar Disorder, Behavior Problems, Self-Mutilation, Attention Deficit Disorder, Attention Deficit Hyperactivity Disorder, Depression, Post Traumatic Stress Disorder or Eating Disorder OTHER HISTORY: Positive Cancer and Breast Cancer; Negative Hospitalization, Down Syndrome, Autism, Developmental Delay, Shingles, Falls, Blood Transfusions, Blood Transfusion Reaction, Anesthesia Reactions, Organ Transplant, Chemotherapy, Radiation Therapy, Hyperbaric Therapy, MRSA, VRSA, Vancomycin-Resistant Enterococci, Human Immunodeficiency Virus (HIV), Chicken Pox, Measles, Mumps, Rubella (Polish Measles), Pertussis, Clostridium Difficile, Cervical Cancer, Colorectal Cancer, Lung Cancer, Ovarian Cancer, Prostate Cancer or Testicular Cancer Family History FAMILY HISTORY: Positive Family Cardiac Disorders and Family Cancer; Negative Family Psychiatric Problems, Family Respiratory Disorders, Family Gastrointestinal Problems, Family Surgery or Family Anesthesia Reaction Surgical History SURGICAL: Positive Tonsillectomy, Abdominal Surgery and Lumpectomy; Negative Cardiac Surgery, Open Heart Surgery, Coronary Artery Bypass Graft, Valve Replacement, Vascular Surgery, Coronary Stent, Cardiac Catheterization, Pacemaker, Angiogram, Auto Implanted Cardiovert Defib, Carotid Endarterectomy, Endocrine Surgery, Thyroidectomy, Ear Surgery, Tympanostomy Tube, Eye Surgery, Nose Surgery, Oral Surgery, Adenoidectomy, Cochlear Implant, Corneal Transplant, Throat Surgery, Tracheostomy, Gastric Bypass Surgery, Gastrostomy, Bowel Surgery, Nephrectomy, Transurethral Resection, Joint Replacement, Amputation, Open Reduction Internal Fixation, Arthroscopy, Neurologic Surgery, Brain Shunt, Mastectomy, Hysterectomy, Tubal Ligation, Section or Organ Transplant Social History SMOKING STATUS: Smoking status: Never smoker SECOND HAND EXPOSURE: second hand exposure: No ALCOHOL: Alcohol Intake: Never ALCOHOL FREQUENCY: Alcohol Intake Frequency: holidays/special occasions only HOUSING: Housing: House LIVES WITH: Lives With: Family Patient [place] Social History Living Situation History Housing: House Housing Other:: Patient resides at home with her caregivers. Tobacco History Smoking Status: Never smoker Second Hand Smoke Exposure: No Alcohol History Alcohol Intake: Never Alcohol Intake Frequency: holidays/special occasions only Review of Systems Report any current symptoms Only answer those that you have currently: Past Medical History Past Medical History Have you ever been diagnosed with any of the following: Neurological Problems Cerebrovascular Accident (CVA): No Transient Ischemic Attacks (TIA): No Dementia: No Alzheimer's Disease: No Parkinson's Disease: No Brain Tumor: No Meningitis: No Seizures: No Epilepsy: No Multiple Sclerosis: No Cerebral Palsy: No Amyotrophic Lateral Sclerosis (ALS/Dee Gehrig's): No Guillain-Wittman Syndrome: No Spina Bifida: No Paralysis: No Peripheral Neuropathy: No Salcido's Palsy: No Subdural Hematoma: No Migraine: No Head Trauma: No Spinal Cord Injury: No Traumatic Brain Injury: No Cardiology Problems Myocardial Infarction: No Cardiac Arrhythmia: No Atrial Fibrillation: No Angina: No Heart Murmur: No Coronary Artery Disease: Yes Atherosclerotic Heart Disease: No Peripheral Vascular Disease: No Hypercholesterolemia: Yes Aneurysm: No Congestive Heart Failure: Yes Congenital Heart Disease: No Valvular Heart Disease: No Rheumatic Fever: No Cardiomyopathy: No Edema: No Pericarditis: No Cellulitis: No Deep Vein Thrombosis: No Hypertension: Yes Hypotension: No Varicose Veins: No Respiratory Problems Chronic Obstructive Pulmonary Disease (COPD): No Asthma: Yes Bronchitis: No Emphysema: No Pneumonia: Yes Pulmonary Fibrosis: Yes Tuberculosis: No Pulmonary Embolism: No Pulmonary Edema: No Sleep Apnea: Yes Stomache/Intestinal Problems Hepatitis: No Cirrhosis: No Pancreatitis: No Celiac Disease: No Gall Bladder Disease: Yes Gastrointestinal Bleed: No Esophageal Varices: No White's Esophagus: No Colitis: No Ulcerative Colitis: No Diverticulitis: No Diverticulosis: No Ulcer: No Colorectal Cancer: No Irritable Bowel: No Crohn's Disease: No Obstructive Bowel: No Hiatal Hernia: No Hemorrhoids: No Gastroesophageal Reflux Disease: Yes Obesity: Yes Genital/Urinary Problems Renal Disease: No Kidney Stones: Yes Polycystic Kidney Disease: No Neurogenic Bladder: No Inguinal Hernia: No Dialysis: No Reproductive Problems Breast Cancer: Yes Endometriosis: No Genital Herpes: No Gonorrhea: No Pelvic Inflammatory Disease: No Previous Pregnancies: No Syphilis: No Uterine Prolapse: No Musculoskeletal Problems Muscular Dystrophy: No Myasthenia Gravis: No Marfan's Syndrome: No Bone Cancer: No Arthritis: Yes Rheumatoid Arthritis: No Osteoporosis: No Degenerative Disk Disease: No Gout: No Scoliosis: No Carpal Tunnel Syndrome: No Fibromyalgia: No Fractures: Yes Degenerative Joint Disease: No Osteomyelitis: No Poliovirus: No Head,Eye,Nose,Throat Problems Cataracts: No Glaucoma: No Blind: No Retinal Detachment: No Macular Degeneration: No Chronic Ear Infections: No Deafness: No Eye Prosthesis: No Endocrine Problems Diabetes Mellitus Type 1: No Diabetes Mellitus Type 2: Yes Hypoglycemia: No [place]'s Syndrome: No Hilario's Disease: No Hyperthyroidism: No Hypothyroidism: Yes Parathyroid Disease: No Pituitary Disease: No Systemic Lupus Erythematosus: No Syndrome of Inappropriate Antidiuretic Hormone: No Adrenal Disease: No Graves' Disease: No Blood Problems Anemia: No Leukemia: No Hemophilia: No Thalassemia: No Sickle Cell Disease: No Clotting Problems: No Psychologic Problems Schizophrenia: No Recreational Drug Use: No Bipolar Disorder: No Depression: Yes Anxiety: Yes Behavior Problems: No Self-Mutilation: No Attention Deficit Disorder: No Attention Deficit Hyperactivity Disorder: No Depression: No Post Traumatic Stress Disorder: No Eating Disorder: No Other Problems Hospitalization: No Down Syndrome: No Autism: No Developmental Delay: No Shingles: No Falls: No Blood Transfusions: No Blood Transfusion Reaction: No Anesthesia Reactions: No Organ Transplant: No Chemotherapy: No Radiation Therapy: No Hyperbaric Therapy: No MRSA: No VRSA: No Vancomycin-Resistant Enterococci: No Human Immunodeficiency Virus (HIV): No Chicken Pox: No Measles: No Mumps: No Rubella (Polish Measles): No Pertussis: No Clostridium Difficile: No Cancer: Yes Cervical Cancer: No Lung Cancer: No Ovarian Cancer: No Surgical History Carotid Endarterectomy: No Coronary Artery Bypass Graft: No Valve Replacement: No Hysterectomy: No Pacemaker: No Thyroidectomy: No History of Present Illness HPI Narrative 05/25/2025: Telehealth with the caregiver, Eliza Larsen at the bedside Most of the history is given from the caregiver. Still continuing the steroids and on taper plan. Requested appointment today for medications refill. Endorsed that she is compliant with the medications and checking the blood sugars continuously and following the sliding scale Otherwise denies any complaints. Continuing oxygen and BiPAP as needed throughout the day and continuously throughout the night. Review of Systems Review of Systems Systems Reviewed: All systems reviewed, normal except as documented Assessment & Plan Diagnosis / Problem List (1) Type 2 diabetes mellitus: Status: Acute Qualifiers: Diabetes mellitus complication status: with hyperglycemia Diabetes mellitus intermediate accountant insulin use: without halfway use Qualified Code(s): E11.65 - Type 2 diabetes mellitus with hyperglycemia Assessment & Plan: The patient?s blood sugars have been in control per the patient caregiver Plan: - Refilled both insulin lispro and glargine (2) Interstitial lung disease: Status: Acute Assessment & Plan: The patient?s ILD flare has improved with the current prednisone therapy and use of 2 L O2 Plan: -Continue prednisone taper as prescribed -CMP ordered (3) Hypothyroidism: Status: Acute Qualifiers: Hypothyroidism type: unspecified Qualified Code(s): E03.9 - Hypothyroidism, unspecified Assessment & Plan: The patient is on levothyroxine 100 mcg daily for hypothyroidism and has been stable. Plan: -Continue levothyroxine 100 mcg daily. Plan ----- Plan discussed with attending physician Dr. Nancy Cronin, PGY2 Advanced Care Planning Advance care planning discussed with:: patient and other (child care director) Office Procedures [facility] Level of Care Nursing/Assessment Patient Status: Established Patient Nursing Assessment/Reassessment: Medication Reconciliation and Update PMH in EMR Coordination of Care: Complex Care and Chronic Disease 1-5, Complex Care/Chronic Disease 5 or more, Education Complex Pt/Fam and Staff clarify orders Established Patient Charge Established Patient Point Assignment: 105 Telehealth Telemed Phone/Video with patient at home & Dr,PA,COMPUTER NUMERIC CONTROL SETTER: Yes
== END 2025-05-25 14:30 | disposition home or self-care (01) ==
LOC: HODAHC 13:57
PROVIDERS: Supervising Provider Internal Medicine; Visit Provider Student in an Organized Health Care Education/Training Program
DX: E11.65 Type 2 diabetes mellitus with hyperglycemia (principal); Z79.84 Long term (current) use of oral hypoglycemic drugs; J84.9 Interstitial pulmonary disease, unspecified; E03.9 Hypothyroidism, unspecified; Z79.890 Hormone replacement therapy
CPT/HCPCS: 99212; G0463

== ENCOUNTER 2025-05-25 23:39 | Inpatient (IN) | payer MEDICARE, SELFPAY ==
--- NOTE | 2025-05-25 23:41 | PD.EDSOB ---
ED SOB =RME/HPI General Chief Complaint: Shortness of Breath/Dyspnea Stated Complaint: SOB Time Seen by Provider: 05/26/25 00:40 Arrival date/time: 05/25/25 23:39 RME / HPI RME / HPI Narrative: See MDM for Dr. Olsen's HPI documentation. Related Data Home Medications ?Medication ?Instructions ?Recorded ?Confirmed methenamine hippurate 1 gram tablet 1 g PO BID 04/18/20 05/25/25 omeprazole 40 mg capsule,delayed 40 mg PO QDAY 06/04/21 05/25/25 release ascorbic acid (vitamin C) 500 mg 500 mg PO BID 03/19/24 05/25/25 tablet (Vitamin C) aspirin 81 mg tablet 81 mg PO QDAY 03/19/24 05/25/25 calcium 600 mg (as 0.5 tab PO QDAY 12/27/24 05/25/25 carbonate)-vitamin D3 5 mcg (200 unit) tablet (Calcium 600 + D(3)) cranberry 500 mg capsule 1,000 mg PO QDAY 12/27/24 05/25/25 Held on 03/19/25. Instructions: resume with PCP hydrocodone 10 mg-acetaminophen 1 tab PO TID PRN pain 12/27/24 05/25/25 325 mg tablet lactobacillus comb no.10 20 25,000 mmu cells PO QDAY 12/27/24 05/25/25 billion cell capsule (Probiotic) cranberry fruit concentrate 250 mg 500 mg PO QDAY 02/15/25 05/25/25 chewable tablet (Azo Cranberry) furosemide 40 mg tablet 40 mg PO QAM 02/15/25 05/25/25 Held on 03/19/25. Instructions: resume with pcp levothyroxine 100 mcg tablet 100 mcg PO QDAY 02/15/25 05/25/25 magnesium carb,citrate,oxide 80.5 mg PO QDAY 03/15/25 05/25/25 (Magnesium Complex) metformin 500 mg tablet 1,000 mg PO BID 03/15/25 05/25/25 Previous Rx's ?Medication ?Instructions ?Recorded prednisone 10 mg tablet See Taper PO QDAY #360 tabs 02/11/25 acetazolamide 250 mg tablet 250 mg PO BID #60 tabs 02/22/25 Held on 03/19/25. Instructions: resume with PCP pramipexole 0.5 mg tablet 1 mg (2 x 0.5 mg) PO HS 1 month 04/14/25 #60 tabs rosuvastatin 5 mg tablet 5 mg PO HS 1 month #30 tabs 04/14/25 insulin aspart U-100 100 unit/mL 1 sliding scale dose subcut 05/04/25 (3 mL) subcutaneous pen (Novolog USEASDIRECTD PRN hyperglycemia #15 FlexPen U-100 Insulin aspart) mL insulin lispro 100 unit/mL 6 unit (0.06 mL) subcut TID 1 05/04/25 subcutaneous solution month #10 mL insulin lispro 200 unit/mL (3 mL) 1 sliding scale dose subcut 05/04/25 subcutaneous pen USEASDIRECTD #6 mL metoprolol succinate 25 mg 25 mg PO QDAY #30 tabs 05/04/25 tablet,extended release 24 hr pramipexole 1 mg tablet 1 mg PO QHS #30 tabs 05/04/25 venlafaxine 150 mg 150 mg PO QDAY #30 caps 05/04/25 capsule,extended release 24 hr insulin glargine 100 unit/mL (3 15 unit (0.15 mL) subcut QAM #15 mL 05/25/25 mL) subcutaneous pen (Lantus Solostar U-100 Insulin) insulin syringes (disposable) 1 mL #500 ea 05/25/25 pen needle, diabetic 31 gauge x #100 ea 05/25/2508/21 (1st Tier Unifine Pentips) pen needle, diabetic 31 gauge x #100 ea 05/25/2508/21 (Comfort EZ Pen Miranda) Allergies Allergy/AdvReac Type Severity Reaction Status Date / Time cefuroxime Allergy Intermediate Swelling Verified 05/26/25 00:35 of Lip/Tongue/Throat zinc Allergy Intermediate Rash Verified 05/26/25 00:35 iodine Allergy Unknown Verified 05/26/25 00:35 shellfish derived Allergy Unknown Verified 05/26/25 00:35 Sulfa (Sulfonamide Allergy Unknown Verified 05/26/25 00:35 Antibiotics) Influenza Virus Vaccines Allergy Verified 05/26/25 00:35 Review of Systems Review of Systems Systems Reviewed: All systems reviewed, normal except as documented Past Medical History Past Medical History NEUROLOGIC: Negative Neurological Disorders, Cerebrovascular Accident, Transient Ischemic Attacks (TIA), Dementia, Alzheimer's Disease, Parkinson's Disease, Brain Tumor, Meningitis, Seizures, Epilepsy, Multiple Sclerosis, Cerebral Palsy, Amyotrophic Lateral Sclerosis (ALS/Dee Gehrig's), Guillain-[place] Syndrome, Spina Bifida, Paralysis, Peripheral Neuropathy, Salcido's Palsy, Subdural Hematoma, Migraine, Head Trauma, Spinal Cord Injury or Traumatic Brain Injury CARDIAC: Positive Cardiac Disorders, Coronary Artery Disease, Hypercholesterolemia, Congestive Heart Failure and Hypertension; Negative Myocardial Infarction, Cardiac Arrhythmia, Atrial Fibrillation, Angina, Heart Murmur, Atherosclerotic Heart Disease, Peripheral Vascular Disease, Aneurysm, Congenital Heart Disease, Valvular Heart Disease, Rheumatic Fever, Cardiomyopathy, Edema, Pericarditis, Cellulitis, Deep Vein Thrombosis, Hypotension or Varicose Veins RESPIRATORY: Positive Asthma, Pneumonia, Pulmonary Fibrosis and Sleep Apnea; Negative Chronic Obstructive Pulmonary Disease (COPD), Bronchitis, Emphysema, Cystic Fibrosis, Tuberculosis, Pulmonary Embolism or Pulmonary Edema GASTROINTESTINAL: Positive Gastrointestinal Disorders (Chronic Constipation), Gall Bladder Disease, Gastroesophageal Reflux Disease and Obesity; Negative Hepatitis, Cirrhosis, Pancreatitis, Celiac Disease, Gastrointestinal Bleed, Esophageal Varices, White's Esophagus, Colitis, Ulcerative Colitis, Diverticulitis, Diverticulosis, Ulcer, Colorectal Cancer, Irritable Bowel, Crohn's Disease, Obstructive Bowel, Hiatal Hernia or Hemorrhoids GENITOURINARY: Positive Genitourinary Disorders and Kidney Stones; Negative Renal Disease, Polycystic Kidney Disease, Neurogenic Bladder, Inguinal Hernia, Dialysis, Prostate Cancer or Benign Prostatic Hyperplasia REPRODUCTIVE: Positive Breast Cancer; Negative Endometriosis, Genital Herpes, Gonorrhea, Pelvic Inflammatory Disease, Previous Pregnancies, Syphilis, Testicular Cancer or Uterine Prolapse MUSCULOSKELETAL: Positive Musculoskeletal Disorders, Arthritis and Fractures; Negative Muscular Dystrophy, Myasthenia Gravis, Marfan's Syndrome, Bone Cancer, Rheumatoid Arthritis, Osteoporosis, Degenerative Disk Disease, Gout, Scoliosis, Carpal Tunnel Syndrome, Fibromyalgia, Degenerative Joint Disease, Osteomyelitis or Poliovirus ENT: Negative Cataracts, Glaucoma, Blind, Retinal Detachment, Macular Degeneration, Ear Infection, Deafness, Head Trauma or Eye Prosthesis ENDOCRINE: Positive Endocrine Disorders, Diabetes Mellitus Type 2 and Hypothyroidism; Negative Diabetes Mellitus Type 1, Hypoglycemia, Remington's Syndrome, Dolores's Disease, Hyperthyroidism, Parathyroid Disease, Pituitary Disease, Systemic Lupus Erythematosus, Syndrome of Inappropriate Antidiuretic Hormone (SIADH), Adrenal Disease or Graves' Disease HEMATOLOGIC: Negative Blood Disorders, Anemia, Leukemia, Hemophilia, Thalassemia, Sickle Cell Disease or Clotting Problems PSYCHO/SOCIAL: Positive Depression and Anxiety; Negative Psychiatric Problems, Schizophrenia, Recreational Drug Use, Bipolar Disorder, Behavior Problems, Self-Mutilation, Attention Deficit Disorder, Attention Deficit Hyperactivity Disorder, Depression, Post Traumatic Stress Disorder or Eating Disorder OTHER HISTORY: Positive Cancer and Breast Cancer; Negative Hospitalization, Autoimmune Disease, Down Syndrome, Autism, Developmental Delay, Shingles, Falls, Blood Transfusions, Blood Transfusion Reaction, Anesthesia Reactions, Organ Transplant, Chemotherapy, Radiation Therapy, Hyperbaric Therapy, MRSA, VRSA, Vancomycin-Resistant Enterococci, Human Immunodeficiency Virus (HIV), Chicken Pox, Measles, Mumps, Rubella ([place] Measles), Pertussis, Clostridium Difficile, Cervical Cancer, Colorectal Cancer, Lung Cancer, Ovarian Cancer, Prostate Cancer or Testicular Cancer Family History FAMILY HISTORY: Positive Family Cardiac Disorders and Family Cancer; Negative Family Psychiatric Problems, Family Respiratory Disorders, Family Gastrointestinal Problems, Family Surgery or Family Anesthesia Reaction Surgical History SURGICAL: Positive Tonsillectomy, Abdominal Surgery and Lumpectomy; Negative Cardiac Surgery, Open Heart Surgery, Coronary Artery Bypass Graft, Valve Replacement, Vascular Surgery, Coronary Stent, Cardiac Catheterization, Pacemaker, Angiogram, Auto Implanted Cardiovert Defib, Carotid Endarterectomy, Endocrine Surgery, Thyroidectomy, Ear Surgery, Tympanostomy Tube, Eye Surgery, Nose Surgery, Oral Surgery, Adenoidectomy, Cochlear Implant, Corneal Transplant, Throat Surgery, Tracheostomy, Gastric Bypass Surgery, Gastrostomy, Bowel Surgery, Nephrectomy, Transurethral Resection, Joint Replacement, Amputation, Open Reduction Internal Fixation, Arthroscopy, Neurologic Surgery, Brain Shunt, Mastectomy, Hysterectomy, Tubal Ligation, Section or Organ Transplant Social History SMOKING STATUS: Never smoker SECOND HAND EXPOSURE: No SUBSTANCE USE: does not use ED Exam Narrative Physical exam: See [facility] for Dr. Olsen's physical exam documentation. Course Quality Measures none Orders Category Date Time Status Bedside COVID-19 Antigen Test NOW Care 05/26/25 00:[address] Screening NOW Care 05/26/25 00:02 Active EKG (ED ONLY) *Do not use* NOW Care 05/26/25 00:02 Completed [place] Routine Care 05/26/25 00:01 Ordered Saline [Insert IV] NOW Care 05/26/25 00:01 Active Referral Respiratory Therapy Stat Cons 05/26/25 02:13 Active EKG (ED Only) Stat Exams 05/26/25 00:02 Draft US venous doppler LE BI Stat Exams 05/26/25 00:02 Taken XR chest 1V portable Stat Exams 05/26/25 00:02 Taken ABG [Arterial Blood Gas] Stat Lab 05/26/25 01:55 Completed Amylase Stat Lab 05/26/25 01:14 Completed BNP [B-Type Natriuretic Peptide] Stat Lab 05/26/25 01:14 Completed Bilirubin,Direct Stat Lab 05/26/25 01:14 Completed Blood Culture (Lab) Stat Lab 05/26/25 01:14 Received CBC Stat Lab 05/26/25 01:14 Completed CMP [Comprehensive Metabolic Panel] Stat Lab 05/26/25 01:14 Completed CRP [C-Reactive Protein] Stat Lab 05/26/25 01:14 Completed D-Dimer Stat Lab 05/26/25 01:14 Completed ESR [Sed Rate (ESR)] Stat Lab 05/26/25 01:14 Completed Influenza A & B Rapid Panel Stat Lab 05/26/25 01:16 Ordered Lactate (Lactic Acid) Stat Lab 05/26/25 01:14 Completed Lipase Stat Lab 05/26/25 01:14 Completed Magnesium Stat Lab 05/26/25 01:14 Completed Procalcitonin Stat Lab 05/26/25 01:14 Completed TSH [Thyroid Stimulating Hormone] Stat Lab 05/26/25 01:14 Completed Troponin I Stat Lab 05/26/25 01:14 Completed UA, C/S IF [Urinalysis, C/S if Indicated] Stat Lab 05/26/25 01:13 Completed Urine Culture Stat Lab 05/26/25 01:13 Received Albuterol/Ipratr Rt Sravani [Duoneb Rt Sravani] Med 05/26/25 00:01 Discontinued 3 ml INH X1 ONE Furosemide Inj [Lasix Inj] Med 05/26/25 02:16 Discontinued 40 mg IVP X1 ONE Levalbuterol Rt [Xopenex Rt Sravani] Med 05/26/25 02:13 Discontinued 2.5 mg INH X1 ONE Levofloxacin/D5w 500 mg Ivpb [Levaquin Ivpb] Med 05/26/25 01:53 Discontinued 500 mg in 100 ml IV X1 Magnesium Sulfate 2 GM Ivpb [Magnesium Sulfate Ivpb] Med 05/26/25 02:13 Active 2 gm in 50 ml IV X1 MethylPREDNISolone.* [SoluMEDROL Inj] Med 05/26/25 00:01 Discontinued 125 mg IVP X1 ONE MethylPREDNISolone.* [SoluMEDROL Inj] Med 05/26/25 02:13 Discontinued 125 mg IVP X1 ONE Morphine* Inj Med 05/26/25 02:16 Discontinued 2 mg IV X1 ONE Nitroglycerin Oint 2% [Nitro-paste Oint 2%] Med 05/26/25 02:16 Discontinued 1 inch TOP X1 ONE Sodium Chloride Rt Sravani 0.9% [NS Rt Sravani 0.9%] Med 05/26/25 02:13 Active 6 ml INH PRN PRN BiPAP / CPAP NOW RT 05/26/25 02:12 Active Vital Signs Vital signs: Vital Signs Temperature 98.5 F 05/25/25 23:44 Pulse Rate 106 H 05/25/25 23:44 Respiratory Rate 21 H 05/25/25 23:44 Blood Pressure 114/50 L 05/25/25 23:44 Pulse Oximetry (%) 90 L 05/25/25 23:44 Oxygen Delivery Method Nasal Cannula 05/25/25 23:44 Oxygen Flow Rate 4 05/25/25 23:44 Shortness of Breath / Dyspnea MDM Narrative MDM Narrative:: This section includes all my notes and documentations, including HPI, PE, and ED course. Bobby Olsen MD HPI: 89-year-old female here with hypoxia and urinary retention. History is from EMS. Can't obtain any history from the patient. She doesn't know why she is here. Family called EMS due to shortness of breath and hypoxia and urinary retention. Hypoxia noted by EMS, oxygen needed en route. ROS: Can't obtain from the patient due to current clinical condition. Physical Exam: General: Alert and oriented X 1. Hypoxia noted. Eyes: Conjunctivae and lids clear. PERRL. EOMI. ENT: No nasal congestion. Neck: Supple. No carotid bruit. No JVD. Heart: RRR. Lungs: In respiratory distress. Decreased air movement with wheezing and rales. Abdomen: Soft with diffuse tenderness, difficult to localize. Normal bowel sounds. No distension. No rebound or guarding. Back: No CVA tenderness. Skin: Warm and dry. Neuro: Cranial nerves II to XII grossly normal. No peripheral motor deficits. I reviewed EMS notes. I reviewed all diagnostic test results. My interpretation of the EKG is sinus rhythm with nonspecific ST-T changes. My interpretation of the chest x-ray is bilateral opacities. Blood tests are remarkable for WBC 12, ESR 54, D-Dimer 802, Glucose 195, CRP 5.7, BNP 810. ABG showed pH 7.21, pCO2 91, pHCO3 36. UA showed positive leukocyte esterase, 10 RBC, 55 WBC, and 1+ bacteria. COVID negative. Influenza pending. At this point, diagnoses include: Acute respiratory failure with hypoxia and hypercapnia UTI (urinary tract infection) Pneumonia COPD exacerbation CHF exacerbation Treatment here from me included: Lasix 40 mg IV Levaquin 500 mg IV Magnesium Sulfate 2 g IV Xopenex 5 mg neb treatment Solumedrol 125 mg IV X 2 Morphine 2 mg IV Topical nitroglycerin Duoneb BiPAP Some improvement noted. I discussed the case with our hospitalist. About the presentation and exam and diagnostics and treatments here. And need of further care in the hospital. Will accept the patient. Bobby Olsen MD Patient data External records reviewed:: [facility] previous records (Per chart review, patient was admitted here on 03/14/25 for AMS.) and EMS form Clinical information provided by:: patient and EMS Social determinants that could affect healthcare access:: none Patient has the following chronic illnesses:: ILD/pulmonary fibrosis, chronic respiratory failure on 2L home oxygen and BiPAP, HFpEF, bedbound, recurrent UTI, hypothyroidism, right breast cancer s/p lumpectomy, T2DM, GERD, depression, chronic back pain How is presenting disease/condition affected by chronic disease/condition?: exacerbated by Evaluation data The following diagnostics were reviewed and interpreted by me:: lab results, radiology exam(s) and EKG tracing(s) (My interpretation of the EKG is: Sinus rhythm (101 bpm) with nonspecific ST-T changes. Bobby Olsen MD) Lab and/or radiology exams considered but not ordered:: None Interpretation Summary: I reviewed all diagnostic test results. My interpretation of the EKG is sinus rhythm with nonspecific ST-T changes. My interpretation of the chest x-ray is bilateral opacities. Blood tests are remarkable for WBC 12, ESR 54, D-Dimer 802, Glucose 195, CRP 5.7, BNP 810. ABG showed pH 7.21, pCO2 91, pHCO3 36. UA showed positive leukocyte esterase, 10 RBC, 55 WBC, and 1+ bacteria. COVID negative. Influenza pending. Medications / Prescriptions Medications or Prescriptions considered but not ordered:: none Medication administrations:: Medication Administration History Acetaminophen (Acetaminophen 325 Mg Tablet) 650 mg PO Q6H PRN PRN Reason: Fever >101.5 Stop: 06/25/25 02:39 Acetaminophen (Acetaminophen 325 Mg Tablet) 650 mg PO Q6H PRN PRN Reason: PAIN SCALE 1-3 (mild Stop: 06/25/25 02:39 Heparin Sodium (Porcine) (Heparin Sod Inj 5000 Unit/Ml Vial) 5,000 unit SC Q8HR LISETTE Stop: 06/09/25 05:59 Magnesium Sulfate (Magnesium Sulfate Ivpb) 2 gm in 50 mls @ 25 mls/hr IV X1 ONE Stop: 05/26/25 04:12 Last Admin: 05/26/25 02:31 Dose: 25 mls/hr Documented By: BRIAN Piperacillin/Tazobactam/Dextrose (Zosyn) 2.25 gm in 50 mls @ 100 mls/hr IV Q6H LISETTE; Protocol Stop: 06/02/25 03:14 Ondansetron HCl (Ondansetron Inj 2 Mg/Ml Inj 2 Ml) 4 mg IVP Q6H PRN; Protocol PRN Reason: NAUSEA OR VOMITING Stop: 06/25/25 02:39 Sodium Chloride (Sodium Chloride Rt Sravani 0.9% 3 Ml Nebu) 6 ml INH PRN PRN PRN Reason: SOLN Stop: 06/25/25 02:12 Last Admin: 05/26/25 02:37 Dose: 6 ml Documented By: NE Discontinued Medications Albuterol/Ipratropium (Albuterol/Ipratropium (Duoneb) Rt Sravani 3 Ml Nebu) 3 ml INH X1 ONE Stop: 05/26/25 00:02 Last Admin: 05/26/25 01:45 Dose: 3 ml Documented By: ALYSE Furosemide (Furosemide Inj 10 Mg/Ml 4ml Vial) 40 mg IVP X1 ONE Stop: 05/26/25 02:17 Last Admin: 05/26/25 02:32 Dose: 40 mg Documented By: EE Levofloxacin/Dextrose (Levaquin Ivpb) 500 mg in 100 mls @ 100 mls/hr IV X1 ONE Stop: 05/26/25 02:52 Last Admin: 05/26/25 02:30 Dose: 100 mls/hr Documented By: EE Levalbuterol HCl (Levalbuterol Rt 1.25 Mg/0.5 Ml Nebu) 2.5 mg INH X1 ONE Stop: 05/26/25 02:14 Last Admin: 05/26/25 02:37 Dose: 2.5 mg Documented By: NE Methylprednisolone Sodium Succinate (Methylprednisolone Sod Succ 62.5 Mg/Ml 2ml Vial) 125 mg IVP X1 ONE Stop: 05/26/25 00:02 Last Admin: 05/26/25 01:18 Dose: 125 mg Documented By: CB Methylprednisolone Sodium Succinate (Methylprednisolone Sod Succ 62.5 Mg/Ml 2ml Vial) 125 mg IVP X1 ONE Stop: 05/26/25 02:14 Last Admin: 05/26/25 02:32 Dose: 125 mg Documented By: EE Morphine Sulfate (Morphine Sulf Inj 4 Mg/Ml Vial) 2 mg IV X1 ONE Stop: 05/26/25 02:17 Last Admin: 05/26/25 02:34 Dose: 2 mg Documented By: EE Nitroglycerin (Nitroglycerin Oint 2% 1 Inch Packet) 1 inch TOP X1 ONE Stop: 05/26/25 02:17 Last Admin: 05/26/25 02:45 Dose: 1 inch Documented By: EE Treatment here from me included: Lasix 40 mg IV Levaquin 500 mg IV Magnesium Sulfate 2 g IV Xopenex 5 mg neb treatment Solumedrol 125 mg IV X 2 Morphine 2 mg IV Topical nitroglycerin Duoneb BiPAP Consultations Consultation(s) initiated? (list below): Yes Consultation #1 (Physician, Specialty, Details): I discussed the case with our hospitalist. About the presentation and exam and diagnostics and treatments here. And need of further care in the hospital. Will accept the patient. Diagnosis Shortness of Breath Differential Diagnosis: acute exacerbation of chronic obstructive airways disease, congestive heart failure and community acquired pneumonia Most likely diagnosis given after review of the tests above:: Acute respiratory failure with hypoxia and hypercapnia UTI (urinary tract infection) Pneumonia COPD exacerbation CHF exacerbation Admission Indicated Admission indicated?: indicated Explain why admission is indicated or not indicated:: Acute respiratory failure with hypoxia and hypercapnia UTI (urinary tract infection) Pneumonia COPD exacerbation CHF exacerbation Admission Request Was there a request for admission?: Yes Admission Attestation Admission request attestation: Discussed case with Hospitalist service regarding admission. Discussed patients ED course, exam findings, labs, and radiology results. Agreed to accept the patient for admission. Disposition Plan Disposition Plan: Admit Critical Care Time Critical Care Time Critical Care Time: Yes Total Critical Care Time (min.): 36 Attestation: Hospitalist agreed to admit the patient. Discharge Plan Problem List Clinical Impression: Acute respiratory failure with hypoxia and hypercapnia, UTI (urinary tract infection), Pneumonia, COPD exacerbation, CHF exacerbation
[2025-05-25 23:44] VITALS: BP 114/50; PULSE 106; RESP 21; TEMP 36.9; O2SAT 90
[2025-05-26] VITALS (27 sets, daily range): BP systolic 117–148; BP diastolic 58–83; PULSE 90–116; RESP 14–30; TEMP 36.2–36.7; O2SAT 90–979; BMI 32.8; BMI 19.3
--- NOTE | 2025-05-26 00:02 | EKG_ITS ---
[facility] Test Date: 2025-05-26 Pat Name: SHAN SLAUGHTER Department: Room: - Gender: Female Database Design Analyst: : 1935 Requested By: Bobby Glasgow Order Number: [id number] Reading MD: Bobby Glasgow Measurements Intervals [place] Rate: 101 P: 19 MS: 123 QRS: 39 QRSD: 130 T: -33 QT: 342 QTc: 444 Interpretive Statements SINUS TACHYCARDIA RIGHT BUNDLE BRANCH BLOCK [120+ ms QRS DURATION, UPRIGHT V1, 40+ ms S IN I/aVL/V4/V5/V6] Compared to ECG 03/14/2025 15:40:28 No significant changes /store/S0/[id number]/[id number].pdf
--- NOTE | 2025-05-26 00:02 | XR_ITS ---
Examination: Venous duplex lower extremity sonogram, bilateral. Date and time of exam: May 26, 2025, 0221 hours INDICATIONS: Leg pain and swelling, elevated D-dimer today with shortness of breath Technique: Multiple sonographic images of the deep venous system have been obtained. B-mode/2-D grayscale imaging of vascular structures and Doppler spectral analysis (waveforms) and color performed Both legs are examined. Findings: Deep venous systems do not demonstrate abnormal echogenicity. All visualized deep veins exhibit compressibility. All visualized deep veins exhibit augmentation. Impression: Negative for deep vein thrombosis
--- NOTE | 2025-05-26 00:02 | XR_ITS ---
EXAMINATION: AP chest single view TECHNIQUE: AP portable upright chest single view Date and time: May 26, 2025, 0127 hours, comparison March 14, 2025 INDICATIONS: Shortness of breath today FINDINGS: Enlarged cardiac contour with prominent vascular congestion Bilateral lung opacity edema and/or pneumonia Prominent osteopenia IMPRESSION: Mild to moderate heart failure Consider superimposed bilateral pneumonia
[2025-05-26] MEDS: MethylPREDNISolone SOD SUCC 62.5 MG/ML 2ML VIAL 125 MG IVP ×2 (01:18→02:32)
[2025-05-26 01:21] LABS: Collection Type, Urine Clean Catch
[2025-05-26 01:27] LABS: Lactate (Lactic Acid) 1.3 mMol/L (0.4-2.0)
[2025-05-26 01:28] LABS: Basophils # (Auto) 0.1 Thou/mm3 (0.0-0.2); Basophils % (Auto) 1 % (0-2.5); Eosinophils # (Auto) 0.2 Thou/mm3 (0.0-0.5); Eosinophils % (Auto) 2 % (0-10); Hematocrit 33.7 % (36.0-46.0); Hemoglobin 9.5 g/dL (12.0-16.0); Immature Granulocytes Auto 0.30 Thou/mm3 (0.00-0.00); Lymphocytes # (Auto) 1.0 Thou/mm3 (1.0-4.8); Lymphocytes % (Auto) 8 % (10-50); Mean Corpuscular HGB Conc 28.2 g/dl (31.0-37.0); Mean Corpuscular Hemoglobin 28.4 pg (25.0-35.0); Mean Corpuscular Volume 101 fL (80-100); Monocytes # (Auto) 1.0 Thou/mm3 (0.0-0.8); Monocytes % (Auto) 8 % (0-12); Neutrophils # (Auto) 9.4 Thou/mm3 (1.8-7.7); Neutrophils % (Auto) 79 % (37-80); Nucleated Red Blood Cell # 0.17 Thou/mm3 (0.00-0.00); Nucleated Red Blood Cell % 1 /100 WBC (0); Platelet Count 236 Thou/mm3 (140-440); RDW Standard Deviation 59.9 fL (36.4-46.3); Red Blood Count 3.35 Miln/mm3 (4.00-5.20); White Blood Count 12.0 Thou/mm3 (3.6-11.0)
[2025-05-26 01:33] LABS: Bacteria,Urine 1+; Bilirubin,Urine Negative (Negative); Blood,Urine 1+ (Negative); Budding Yeast,Urine Present; Clarity,Urine Clear (Clear/Hazy); Color,Urine Lt-Yellow (Lt Yel-Yel); Glucose, Urine Negative (Negative); Hyaline Casts,Urine < 1 /hpf (0-1); Ketones,Urine Negative (Negative); Leukocyte Esterase,Urine Positive (Negative); Nitrite,Urine Negative (Negative); PH,Urine 5.5 (5.0-7.0); Protein,Urine Trace (Neg - Trace); RBC,Urine 10 /hpf (0-3); Specific Gravity,Urine 1.015 (1.001-1.035); Squamous Epithelial Cell,Urine 1 /hpf (0-5); Urobilinogen,Urine Negative mg/dL (0.0-1.0); WBC,Urine 55 /hpf (0-5)
[2025-05-26 01:36] LABS: Culture Indicated,Urine Yes
[2025-05-26] MEDS: ALBUTEROL/IPRATROPIUM (Duoneb) RT SOL 3 ML NEBU INH ×5 (01:45→22:35)
[2025-05-26 01:58] LABS: D-Dimer 802 ng/mL (<600)
[2025-05-26 02:05] LABS: Base Excess 6 (-3-3); HCO3 36 mEq/L (20-26); Inspired O2, VO2 Liters 4 L/min; Inspired Oxygen, FIO2 21 %; O2 Saturation 95 % (91-98); PCO2 91 mmHg (32.0-48.0); PO2 108 mmHg (83-108); pH, Arterial 7.21 (7.35-7.45)
[2025-05-26 02:06] LABS: Allen Test Performed/OK; Puncture Site Right Radial
[2025-05-26 02:11] LABS: Alanine Aminotransferase 36 U/L (10-49); Albumin, Serum 3.8 gm/dL (3.4-4.8); Albumin/Globulin Ratio 1.7 (1.2-2.2); Alkaline Phosphatase 66 U/L (46-116); Amylase 38 U/L (30-118); Anion Gap 8 (7-16); Aspartate Amino Transferase 16 U/L (0-34); B-Type Natriuretic Peptide 810 pg/mL (0-100); BUN/Creatinine Ratio 28 Ratio (12-20); Bilirubin,Direct < 0.1 mg/dL (0.0-0.3); Bilirubin,Total 0.2 mg/dL (0.3-1.2); Blood Urea Nitrogen 36 mg/dL (9-23); C-Reactive Protein 5.7 mg/dL (0.0-0.9); Calcium 9.9 mg/dL (8.3-10.6); Calcium (Corrected) 10.1 mg/dL (8.5-10.1); Carbon Dioxide 35.1 mMol/L (20.0-31.0); Chloride 102 mMol/L (98-107); Creatinine (Component) 1.3 mg/dL (0.6-1.3); Estimated Creatinine Clearance 34.8 mL/min (>60); Globulin 2.2 gm/dL (2.3-3.5); Glucose 195 mg/dL (74-106); Lipase 21 U/L (12-53); Magnesium 2.1 mg/dL (1.6-2.6); Osmolality,Calculated 302 (275-295); Potassium 5.2 mMol/L (3.4-5.1); Procalcitonin 0.17 ng/ml (0.0-0.49); Sodium 145 mMol/L (136-145); Thyroid Stimulating Hormone 2.20 uIU/mL (0.55-4.78); Total Protein 6.0 gm/dL (5.7-8.2); Troponin I 0.042 ng/mL (0.0-0.045); eGFR 39 See Note
[2025-05-26] MEDS: LEVOFLOXACIN/D5W 500 MG IVPB 500 MG/100 ML BAG 100 MG IV (02:30)
[2025-05-26] MEDS: Magnesium Sulfate 2 GM Ivpb 2 GM/50 ML BAG IV (02:31)
[2025-05-26] MEDS: FUROSEMIDE INJ 10 MG/ML 4ML VIAL 40 MG IVP ×2 (02:32→11:39)
[2025-05-26] MEDS: MORPHINE SULF INJ 4 MG/ML VIAL 2 MG IV (02:34)
[2025-05-26] MEDS: LEVALBUTEROL RT 1.25 MG/0.5 ML NEBU 2.5 MG INH (02:37)
[2025-05-26] MEDS: SODIUM CHLORIDE RT SOL 0.9% 3 ML NEBU 6 ML INH (02:37)
[2025-05-26] MEDS: NITROGLYCERIN OINT 2% 1 INCH PACKET TOP (02:45)
--- NOTE | 2025-05-26 02:45 | ESHP_ITS ---
<Statement entered by German Benitez MD - 05/27/25 06:01> I have discussed and was present for the essential components of the history, physical examination, diagnosis, and treatment plan with the resident. I agree with the patient's care as documented by the resident and amended herein by me. German Benitez MD FACP. Documentation for date of: 05/26/25 HPI History of Present Illness History of present illness: Ms. Coffman is an 89 y/o female with PMHx of ILD/pulmonary fibrosis, chronic respiratory failure on 2 L home oxygen and BiPAP, HFpEF, bedbound, recurrent MDR UTI, hypothyroidism, right breast cancer s/p lumpectomy, T2DM, GERD, depression, chronic back pain, known for recurrent admission for hypoxic hypercapnic respiratory failure presenting to the ED with hypoxia and urinary retention. Desat to 83% at home, placed on 4L O2 by EMS, improved to mid-90s. Patient was minimally interactive during exam, did not answer questions. No family at bedside. History reviewed per chart. Of note, patient was discharged on 03/19/25 for the same reason of AHRF. Patient was given IV Zosyn and BiPAP. Urine culture grew Pseudomonas. BG were labile. D/C with Lispro and Glargine, prednisone taper, continued home meds. ED course: HR 97-103, RR 20-30s, BP 120-140s/50-60s, 90% 4L --> BiPAP. Labs significant for K 5.2, bicarb 35, BUN 36, Cr 1.3, BUN/Cr 28, eGFR 39, glucose 195. Lactic acid WNL. CRP 5.7, BNP 810. UA 1+ blood, +LE, 10 RBC, 55 WBC, 1+ bacteria. yeast. Pending blood and urine cx. EKG sinus tachycardic 101, QTc 444. CXR poor visualization, perihilar vascular congestion. Pending LE doppler read. Given methylpred 125 mg IV x2, Duoneb, Levofloxacin, Mg sulfate, LAsix 40 mg IV, Morphine 2 mg IV,m Levalbuterol 2.5 mg, nitroglycerin topical. PMHx: ILD/pulmonary fibrosis, chronic respiratory failure on 2 L home oxygen and BiPAP, HFpEF, bedbound, recurrent MDR UTI, hypothyroidism, right breast cancer s/p lumpectomy, T2DM, GERD, depression, chronic back pain Allergies: Cefuroxime, Zinc, Iodine, Shellfish, Sulfa, flu vaccine Home meds: (pending official med rec - list obtained from discharge summary 03/19/25) Glargine 15U QAM Lispro 6U TID Methenamine hippurate 1g PO BID Venlafaxine 150 mg ER PO daily Omeprazole 40 mg PO daily Rosuvastatin 5 mg PO QHS Aspirin 81 mg PO daily Ascorbic acid 500 mg PO BID Metoprolol succinate 25 mg ER PO daily Prednisone 20 mg PO daily x 30 days (05/19-06/19) (per extended prednisone taper as below that started on 03/19/25) 40 mg DAILY for 30 Days 30 mg DAILY for 30 Days 20 mg DAILY for 30 Days 10 mg DAILY for 30 Days 5 mg DAILY for 30 Days Levothyroxine 100 mcg PO daily Azo Cranberry 250 mg PO daily Magnesium complex 300 mg PO daily Metformin 1000 mg PO BID Cary 10-325 mg PO TID PRN Pramipexole 0.5 mg PO QHS Probiotic 20 billion cell capsule Calcium carbonate-vitamin D3 600 mg-5 mcg PO daily SgHx: Lumpectomy, Cholecystectomy SHx: No history of alcohol, substance abuse or tobacco use, per chart review. FHx: Limited family history per chart review. Review of Systems Review of Systems Narrative Review of Systems: Unable to obtain as patient minimally responsive Exam Vital Signs Temp Pulse Resp BP Pulse Ox O2 Del Method O2 Flow Rate 98.5 F 98 28 H 122/58 L 93 L Nasal Cannula 4 05/25/25 23:44 05/26/25 02:32 05/26/25 02:31 05/26/25 02:32 05/26/25 02:31 05/26/25 01:10 05/26/25 01:47 Narrative Exam General: Lying in bed, no acute distress Eye: PERRL, EOMI, normal conjunctiva, no scleral icterus HENT: Normocephalic, atraumatic Neck: Supple, non-tender Lungs: Difficult to hear breath sounds, symmetric chest rise Heart: Normal S1 and S2, no S3 or S4 appreciated. Abdomen: Soft, non-tender, distended, normal bowel sounds. Musculoskeletal: Unable to assess as patient was minimally responsive Skin: Skin is warm, dry, no rashes or lesions. Neurologic: Alert, awake, unable to assess orientation. No focal neuro deficits. Results: Labs 05/26/25 01:14 05/26/25 01:14 Labs: Short CBC 05/26/25 Range/Units 01:14 WBC 12.0 H (3.6-11.0) Thou/mm3 Hgb 9.5 L (12.0-16.0) g/dL Hct 33.7 L (36.0-46.0) % Plt Count 236 (140-440) Thou/mm3 BMP 05/26/25 01:14 Sodium 145 Potassium 5.2 H Chloride 102 Carbon Dioxide 35.1 H BUN 36 H Creatinine 1.3 Glucose 195 H Calcium 9.9 Cardiac Enzymes 05/26/25 Range/Units 01:14 Troponin I 0.042 (0.0-0.045) ng/mL Liver Function 05/26/25 Range/Units 01:14 Total Bilirubin 0.2 L (0.3-1.2) mg/dL Direct Bilirubin < 0.1 (0.0-0.3) mg/dL AST 16 (0-34) U/L ALT 36 (10-49) U/L Alkaline Phosphatase 66 (46-116) U/L Albumin 3.8 (3.4-4.8) gm/dL Urine 05/26/25 Range/Units 01:13 Urine Color Lt-Yellow (Lt Yel-Yel) Urine Clarity Clear (Clear/Hazy) Urine pH 5.5 (5.0-7.0) Ur Specific Gaffney 1.015 (1.001-1.035) Urine Protein Trace (Neg - Trace) Urine Glucose (UA) Negative (Negative) ABG Interpretation ABG results: 05/26/25 01:55 ABG pH 7.21 L ABG pCO2 91 H* ABG pO2 108 ABG HCO3 36 H ABG O2 Saturation 95 ABG Base Excess 6 H Quality Measures Quality Measures none Advance care planning discussed with:: patient Medications Home Medications and Allergies Home Medications ?Medication ?Instructions ?Recorded ?Confirmed ?Type methenamine hippurate 1 gram tablet 1 g PO BID 0 05/25/25 History omeprazole 40 mg capsule,delayed 40 mg PO QDAY 1 05/25/25 History release ascorbic acid (vitamin C) 500 mg 500 mg PO BID 4 05/25/25 History tablet (Vitamin C) aspirin 81 mg tablet 81 mg PO QDAY 03/19/2405/25 History calcium 600 mg (as 0.5 tab PO QDAY 12/27/2404/11 History carbonate)-vitamin D3 5 mcg (200 unit) tablet (Calcium 600 + D(3)) cranberry 500 mg capsule 1,000 mg PO QDAY 12/27/24 History Held on 03/19/25. Instructions: resume with PCP hydrocodone 10 mg-acetaminophen 1 tab PO TID PRN pain 12/27/24 05/25/25 History 325 mg tablet lactobacillus comb no.10 20 25,000 mmu cells PO QDAY 0 12/27/24 05/25/25 History billion cell capsule (Probiotic) cranberry fruit concentrate 250 mg 500 mg PO QDAY 09/1105/25/25 History chewable tablet (Azo Cranberry) furosemide 40 mg tablet 40 mg PO QAM 02/15/25 History Held on 03/19/25. Instructions: resume with pcp levothyroxine 100 mcg tablet 100 mcg PO QDAY 02/15/25 05/25/25 History magnesium carb,citrate,oxide 80.5 mg PO QDAY 03/15/25 05/25/25 History (Magnesium Complex) metformin 500 mg tablet 1,000 mg PO BID 03/15/2504/11 History Allergies Allergy/AdvReac Type Severity Reaction Status Date / Time cefuroxime Allergy Intermediate Swelling Verified 05/26/25 00:35 of Lip/Tongue/Throat zinc Allergy Intermediate Rash Verified 05/26/25 00:35 iodine Allergy Unknown Verified 05/26/25 00:35 shellfish derived Allergy Unknown Verified 05/26/25 00:35 Sulfa (Sulfonamide Allergy Unknown Verified 05/26/25 00:35 Antibiotics) Influenza Virus Vaccines Allergy Verified 05/26/25 00:35 Visit Medications Acetaminophen (Acetaminophen 325 Mg Tablet) 650 mg PO Q6H PRN PRN Reason: Fever >101.5 Stop: 06/25/25 02:39 Acetaminophen (Acetaminophen 325 Mg Tablet) 650 mg PO Q6H PRN PRN Reason: PAIN SCALE 1-3 (mild Stop: 06/25/25 02:39 Heparin Sodium (Porcine) (Heparin Sod Inj 5000 Unit/Ml Vial) 5,000 unit SC Q8HR CORTEZ Stop: 06/09/25 05:59 Levofloxacin/Dextrose (Levaquin Ivpb) 500 mg in 100 mls @ 100 mls/hr IV X1 ONE Stop: 05/26/25 02:52 Last Admin: 05/26/25 02:30 Dose: 100 mls/hr Magnesium Sulfate (Magnesium Sulfate Ivpb) 2 gm in 50 mls @ 25 mls/hr IV X1 ONE Stop: 05/26/25 04:12 Last Admin: 05/26/25 02:31 Dose: 25 mls/hr Ondansetron HCl (Ondansetron Inj 2 Mg/Ml Inj 2 Ml) 4 mg IVP Q6H PRN; Protocol PRN Reason: NAUSEA OR VOMITING Stop: 06/25/25 02:39 Sodium Chloride (Sodium Chloride Rt Sravani 0.9% 3 Ml Nebu) 6 ml INH PRN PRN PRN Reason: SOLN Stop: 06/25/25 02:12 Last Admin: 05/26/25 02:37 Dose: 6 ml Discontinued Medications Albuterol/Ipratropium (Albuterol/Ipratropium (Duoneb) Rt Sravani 3 Ml Nebu) 3 ml INH X1 ONE Stop: 05/26/25 00:02 Last Admin: 05/26/25 01:45 Dose: 3 ml Furosemide (Furosemide Inj 10 Mg/Ml 4ml Vial) 40 mg IVP X1 ONE Stop: 05/26/25 02:17 Last Admin: 05/26/25 02:32 Dose: 40 mg Levalbuterol HCl (Levalbuterol Rt 1.25 Mg/0.5 Ml Nebu) 2.5 mg INH X1 ONE Stop: 05/26/25 02:14 Last Admin: 05/26/25 02:37 Dose: 2.5 mg Methylprednisolone Sodium Succinate (Methylprednisolone Sod Succ 62.5 Mg/Ml 2ml Vial) 125 mg IVP X1 ONE Stop: 05/26/25 00:02 Last Admin: 05/26/25 01:18 Dose: 125 mg Methylprednisolone Sodium Succinate (Methylprednisolone Sod Succ 62.5 Mg/Ml 2ml Vial) 125 mg IVP X1 ONE Stop: 05/26/25 02:14 Last Admin: 05/26/25 02:32 Dose: 125 mg Morphine Sulfate (Morphine Sulf Inj 4 Mg/Ml Vial) 2 mg IV X1 ONE Stop: 05/26/25 02:17 Last Admin: 05/26/25 02:34 Dose: 2 mg Nitroglycerin (Nitroglycerin Oint 2% 1 Inch Packet) 1 inch TOP X1 ONE Stop: 05/26/25 02:17 Assessment & Plan Plan Ms. Coffman is an 89 y/o female with PMHx of ILD/pulmonary fibrosis, chronic respiratory failure on 2 L home oxygen and BiPAP, HFpEF, bedbound, recurrent MDR UTI, hypothyroidism, right breast cancer s/p lumpectomy, T2DM, GERD, depression, chronic back pain, known for recurrent admission for hypoxic hypercapnic respiratory failure presenting to the ED with hypoxia and urinary retention. Admitted for AHRF and MDR UTI. Patient is on hospice, needs goals of care. #Acute on chronic hypoxic hypercapneic respiratory failure #Pulmonary fibrosis Chronic ILD/pulmonary fibrosis leading to chronic respiratory failure, chronic CO2 retention, requiring daily BiPAP and home oxygen. She has recurrent admission AMS 2/2 hypercapnic respiratory failure as a result. Prognosis remains poor, likely will continue to worsen with time. Recently was discharged for similar condition Given Given methylpred 125 mg IV x2, Duoneb, Levofloxacin, Mg sulfate, Lasix 40 mg IV, Morphine 2 mg IV,m Levalbuterol 2.5 mg, nitroglycerin topical in ED Plan: - Continue BiPAP - Continuous pulse ox - Continue steroid taper as above in HPI - Lasix 40 mg IV daily - Prednisone 20 mg PO daily x 30 days (05/19-06/19) (per extended prednisone taper) #UTI Hx multidrug resistant recurrent UTI A 1+ blood, +LE, 10 RBC, 55 WBC, 1+ bacteria. yeast. Plan: - Zosyn 2.5 mg IV q6h (renally dosed) - Pending blood and urine cx #HFpEF EF 65% #Pulmonary Arterial Hypertension Echocardiogram from 12/2024 showed EF 65%, trace mitral and tricuspid regurg, no wall motion abnormalities. However, she has chronic fluid retention for which she takes LASIX 20 mg daily. CXR showing vascular congestion and mild bilateral ankle blunting. BNP 810. CXR poor visualization, perihilar vascular congestion. Plan: - Lasix 40mg daily - Strict I+O - Daily weight #Hyperkalemia K 5.2 Plan: - CTM with daily BMP - SSI and lasix per T2DM and AHRF sections #STEVE Most likely prerenal i/s/o AHRF and HFpEF BUN 36, Cr 1.3, BUN/Cr 28, eGFR 39 Plan: - Management of AHRF and HFpEF as above - CTM with daily BMP #Hypothyroidism TSH WNL Plan: - Levothyroxine 100 mcg PO daily #Insulin-dependent T2DM Last A1c of 7.9 Plan: - SSI - Pending A1C #Hypertension Chronic Plan: - Metoprolol succinate XL 25 mg PO daily #Esophageal stenosis s/p dilation #Chronic constipation s/p EGD with dilation for dysphagia secondary to esophageal stenosis Plan: - Dysphagia III diet #Depression Chronic Plan: - Venlafaxine 150 mg ER PO daily (home med) #GERD Chronic Plan: -Pantoprazole 40 mg PO daily (home med omeprazole not on formulary) #HLD Plan: - Rosuvastatin 5 mg PO QHS (home med) - Aspirin 81 mg PO daily (home med) #Chronic back pain Plan: - Cary 10-325 mg PO TID PRN (home med) Checklist Dispo: Admit to tele for AHRF Diet: Carb consistent, dysphagia 3 Bowel Reg: doc-senna daily cortez VTE ppx: heparin subQ GI ppx: Pantoprazole 40 mg PO daily Pain mgmt: Tylenol, Cary 10-325 (home med) Code status: DNR Plan discussed with Dr. Montgomery and Dr. Emmanuel Ziegler MD PGY1
[2025-05-26 02:55] LABS: Sed Rate (ESR) 54 mm/hr (0-30)
--- NOTE | 2025-05-26 03:33 | PRELIM_ITS ---
Bilateral lower extremity venous Doppler ultrasound. May 26, 2025 0221 hours Clinical history: EDEMA [employer] Technique: Duplex scan of the bilateral lower extremity deep venous systems was performed utilizing 2D grayscale imaging, Doppler spectral analysis and color flow Doppler and with compression. Comparison: No prior study is available for comparison. Findings: Castro scale, color flow and spectral Doppler evaluation of the lower extremity deep veins was performed. Right: The common femoral, superficial femoral, popliteal, and peroneal veins are patent and compressible. The posterior tibial vein is not visualized. Normal respiratory variation is noted. There is no evidence of occlusive or nonocclusive thrombus. The great saphenous vein is patent at the level of the saphenofemoral junction. . Left: The common femoral, superficial femoral, popliteal, and peroneal veins are patent and compressible. The posterior tibial vein is not visualized. Normal respiratory variation is noted. There is no evidence of occlusive or nonocclusive thrombus. The great saphenous vein is patent at the level of the saphenofemoral junction. Impression: No sonographic evidence of deep venous thrombosis in both lower extremities. Report Electronically Signed By: Milton Kent 05/26/2025 3:33:12 AM [EST]
[2025-05-26] MEDS: PIPER/TAZO 3.375 GM PREMIX 3.375 G/50 ML BAG IV ×3 (05:22→21:22)
[2025-05-26] MEDS: LEVOTHYROXINE SODIUM 100 MCG TABLET PO (05:22)
[2025-05-26] MEDS: HEPARIN SOD INJ 5000 UNIT/ML VIAL SC ×3 (05:32→21:23)
[2025-05-26 06:04] LABS: Basophils # (Auto) 0.1 Thou/mm3 (0.0-0.2); Basophils % (Auto) 1 % (0-2.5); Eosinophils # (Auto) 0.2 Thou/mm3 (0.0-0.5); Eosinophils % (Auto) 2 % (0-10); Hematocrit 33.8 % (36.0-46.0); Hemoglobin 9.7 g/dL (12.0-16.0); Immature Granulocytes Auto 0.29 Thou/mm3 (0.00-0.00); Lymphocytes # (Auto) 0.7 Thou/mm3 (1.0-4.8); Lymphocytes % (Auto) 7 % (10-50); Mean Corpuscular HGB Conc 28.7 g/dl (31.0-37.0); Mean Corpuscular Hemoglobin 29.0 pg (25.0-35.0); Mean Corpuscular Volume 101 fL (80-100); Monocytes # (Auto) 0.6 Thou/mm3 (0.0-0.8); Monocytes % (Auto) 6 % (0-12); Neutrophils # (Auto) 8.9 Thou/mm3 (1.8-7.7); Neutrophils % (Auto) 82 % (37-80); Nucleated Red Blood Cell # 0.12 Thou/mm3 (0.00-0.00); Nucleated Red Blood Cell % 1 /100 WBC (0); Platelet Count 224 Thou/mm3 (140-440); RDW Standard Deviation 60.5 fL (36.4-46.3); Red Blood Count 3.35 Miln/mm3 (4.00-5.20); White Blood Count 10.9 Thou/mm3 (3.6-11.0)
--- NOTE | 2025-05-26 06:20 | PC.NURSE ---
Pt is lethargic and confused at this time, unable to remember her home meds. Will pass it to morning nurse to get list of her meds from her caregiver today.
[2025-05-26 06:31] LABS: Influenza A Ag Negative; Influenza B Ag Negative
[2025-05-26 06:39] LABS: Glucose Estimated Average 137 mg/dL (80-131); Hemoglobin A1C 6.4 % Hgb (4.8-6.0)
[2025-05-26 06:40] LABS: Anion Gap 10 (7-16); BUN/Creatinine Ratio 22 Ratio (12-20); Blood Urea Nitrogen 26 mg/dL (9-23); Calcium 10.5 mg/dL (8.3-10.6); Carbon Dioxide 31.7 mMol/L (20.0-31.0); Chloride 100 mMol/L (98-107); Creatinine (Component) 1.2 mg/dL (0.6-1.3); Estimated Creatinine Clearance 28.0 mL/min (>60); Glucose 187 mg/dL (74-106); Magnesium 2.4 mg/dL (1.6-2.6); Osmolality,Calculated 292 (275-295); Potassium 5.3 mMol/L (3.4-5.1); Sodium 142 mMol/L (136-145); eGFR 43 See Note
[2025-05-26] MEDS: INSULIN LISPRO (AdmeLOG) 1 UNIT/0.01 ML UNIT SC ×4 (07:37→21:23)
--- NOTE | 2025-05-26 08:59 | PC.SS ---
Patient Adelaida Cox is a is an 9-year-old female here for AHRF, UTI. SS Spoke with patient's nephew Jg who reports Patient resides at home and has 24/7 care by caregivers-Private pay Patient is bed bound. She has a BiPAP, uses 2 LO2, a hospital bed, sergio lift, walker and wheelchair. Patient's medical decision maker is her nephew, Jg. Patient's PCP is Dr. Martínez. Pharmacy of choice is [facility] At the time of discharge, the patient will return home with [facility] home health. Patient will need ambulance transportation arranged. Nephew will provide payment with [facility]. D/c Plan: return home w/ [facility] home health Next of kin: MoJg
--- NOTE | 2025-05-26 09:23 | XR_ITS ---
EXAMINATION: AP chest single view TECHNIQUE: AP portable upright chest single view Date and time: May 26, 0 25, 10 0 4:00 a.m., comparison May 26, 2025 0127 hours INDICATIONS: O2 desaturation shortness of breath today FINDINGS: Moderate CHF Mild to moderate enlargement cardiac contour. Prominent vascular congestion with perihilar edema Mild to moderate bilateral pleural effusions Severe osteopenia IMPRESSION: Moderate CHF
[2025-05-26 09:42] LABS: Base Excess 5 (-3-3); HCO3 35 mEq/L (20-26); Inspired Oxygen, FIO2 45 %; O2 Saturation 94 % (91-98); PCO2 89 mmHg (32.0-48.0); PO2 101 mmHg (83-108); pH, Arterial 7.21 (7.35-7.45)
[2025-05-26 09:43] LABS: Allen Test Performed/OK; Puncture Site Right Radial
[2025-05-26] MEDS: SENNA/DOCUSATE SOD 1 TAB TABLET PO (09:44)
[2025-05-26] MEDS: PANTOPRAZOLE 40 MG TABLET PO (09:44)
[2025-05-26] MEDS: ATORVASTATIN CALCIUM 10 MG TABLET PO (09:44)
[2025-05-26] MEDS: METOPROLOL SUCCINATE XL 25 MG TABCR PO (09:46)
[2025-05-26] MEDS: VENLAFAXINE XR 37.5 MG CAPCR 150 MG PO (09:47)
[2025-05-26] MEDS: ASPIRIN EC 81 MG TABEC PO (09:47)
[2025-05-26] MEDS: SOD POLYSTYRENE SULFON SUSP 15 GM/60 ML BTL PO (11:25)
[2025-05-26] MEDS: BUDESONIDE RT 0.25 MG/2 ML NEBU INH ×2 (11:30→19:26)
--- NOTE | 2025-05-26 12:00 | ESPR_ITS ---
<Statement entered by John Paul Warren MD - 05/29/25 12:14> I reviewed above note and agree with findings and plans. I have also personally examined the patient with medicine team and went over assessment and plan with medical team including media relations intern and resident physician. <Statement entered by Jim Gomez MD - 05/26/25 16:42> I saw and examined patient personally and supervised PGY 1 resident, Dr. Casey with formulating a management plan. I agree with the documentation with the exceptions as listed below. Ms. Coffman is an 89 y/o female with PMHx of ILD/pulmonary fibrosis, chronic respiratory failure on 2 L home oxygen and BiPAP, HFpEF, bedbound, recurrent MDR UTI, hypothyroidism, right breast cancer s/p lumpectomy, T2DM, GERD, depression, chronic back pain, known for recurrent admission for hypoxic hypercapnic respiratory failure presenting to the ED with hypoxia and urinary retention. Patient was admitted for acute on chronic respiratory failure with hypoxia and hypercapnia secondary to likely ILD flare. Problem list: 1. Acute on chronic respiratory failure with hypoxia and hypercapnia secondary to ILD flare 2. History of pulmonary fibrosis 3. Pulmonary hypertension [RVSP 32 mmHg] 4. Congestive heart failure with preserved ejection fraction [65%] 5. Acute on chronic respiratory acidosis 6. History of MDR UTIs 7. Hypothyroidism 8. IDDM type II 9. Primary hypertension Patient presented with worsening shortness of breath and was admitted for acute on chronic respiratory failure with hypoxia and hypercapnia secondary to ILD flare. Patient is on supplemental O2 therapy, methylprednisolone and chest physiotherapy. Attempted to contact her decision maker, nephew today to discuss goals of care. Unsuccessful, will reattempt tomorrow. For her UTI she is currently on 2.375 g IV twice daily. Plan of care discussed with Attending Dr. Kelvin Gomez MD PGY 2 Disclaimer: This note was dictated by speech recognition. Minor errors in biology department chair may be present due to voice recognition software. Documentation for date of: 05/26/25 Subjective Subjective Interval history: Patient examined bedside, labs reviewed. Patient AOx2 and repeating herself. Appeared confused. Immediately started on duonebs and steroids which improved patients mentation and oxygenation status. 400ml urine in bag. Exam Vital Signs Temp Pulse Resp BP Pulse Ox O2 Del Method O2 Flow Rate 97.5 F 98 20 119/59 L 95 Nasal Cannula 3 10/09/25 11:57 05/26/25 11:57 05/26/25 11:57 05/26/25 11:57 05/26/25 11:57 05/26/25 11:57 05/26/25 11:57 FiO2 45 05/26/25 06:13 Narrative Exam General: Lying in bed, no acute distress. hand twitching, able to follow some commands, easily distractable. Eye: PERRL, EOMI, normal conjunctiva, no scleral icterus HENT: Normocephalic, atraumatic Neck: Supple, non-tender Lungs: Difficult to hear breath sounds, symmetric chest rise Heart: Normal S1 and S2, no S3 or S4 appreciated. Abdomen: Soft, non-tender, nondistended, normal bowel sounds. Musculoskeletal: Unable to assess as patient was minimally responsive. +1 pedal edema Skin: Skin is warm, dry, no rashes or lesions. Neurologic: Alert, awake, unable to assess orientation. No focal neuro deficits. Objective Labs 05/26/25 04:35 05/26/25 11:50 Labs: Laboratory Results - last 24 hr 05/26/25 05/26/25 05/26/25 01:13 01:14 01:55 WBC 12.0 H RBC 3.35 L Hgb 9.5 L Hct 33.7 L MCV 101 H MCH 28.4 MCHC 28.2 L RDW Std Deviation 59.9 H Plt Count 236 Neut % (Auto) 79 Lymph % (Auto) 8 L [place] % (Auto) 8 Eos % (Auto) 2 Baso % (Auto) 1 Neut # (Auto) 9.4 H Lymph # (Auto) 1.0 [place] # (Auto) 1.0 H Eos # (Auto) 0.2 Baso # (Auto) 0.1 Immature Gran # (Auto) 0.30 H Absolute Nucleated RBC 0.17 H Immature Gran % 3 H Nucleated RBC % 1 H ESR 54 H D-Dimer 802 H Puncture Site Right Radial ABG pH 7.21 L ABG pCO2 91 H* ABG pO2 108 ABG HCO3 36 H ABG O2 Saturation 95 ABG Base Excess 6 H Oxygen Liter Flow 4 FiO2 21 Sodium 145 Potassium 5.2 H Chloride 102 Carbon Dioxide 35.1 H Anion Gap 8 BUN 36 H Creatinine 1.3 Estim Creat Clear Calc 34.8 L eGFR 39 L BUN/Creatinine Ratio 28 H Glucose [address] Glu mg/dL Hemoglobin A1c Calculated Osmolality 302 H Lactic Acid 1.3 Calcium 9.9 Corrected Calcium 10.1 Magnesium 2.1 Total Bilirubin 0.2 L Direct Bilirubin < 0.1 AST 16 ALT 36 Alkaline Phosphatase 66 Troponin I 0.042 C-Reactive Prot, Quant 5.7 H B-Natriuretic Peptide 810 H* Total Protein 6.0 Albumin 3.8 Globulin 2.2 L Albumin/Globulin Ratio 1.7 Amylase 38 Lipase 21 Procalcitonin 0.17 TSH 2.20 Ur Collection Type Clean Catch Urine Color Lt-Yellow Urine Clarity Clear Urine pH 5.5 Ur Specific [place] 1.015 Urine Protein Trace Urine Glucose (UA) Negative Urine Ketones Negative Urine Blood 1+ A Urine Nitrite Negative Urine Bilirubin Negative Urine Urobilinogen (Auto) Negative Ur Leukocyte Esterase Positive Urine RBC 10 H Urine WBC 55 H Ur Squamous Epith Cells 1 Urine Bacteria 1+ A Hyaline Casts < 1 Urine Yeast (Budding) Present A Ur Culture Indicated? Yes Influenza A (Rapid) Influenza B (Rapid) 05/26/25 05/26/25 05/26/25 04:35 05:33 09:34 WBC 10.9 RBC 3.35 L Hgb 9.7 L Hct 33.8 L MCV 101 H MCH 29.0 MCHC 28.7 L RDW Std Deviation 60.5 H Plt Count 224 Neut % (Auto) 82 H Lymph % (Auto) 7 L [place] % (Auto) 6 Eos % (Auto) 2 Baso % (Auto) 1 Neut # (Auto) 8.9 H Lymph # (Auto) 0.7 L [place] # (Auto) 0.6 Eos # (Auto) 0.2 Baso # (Auto) 0.1 Immature Gran # (Auto) 0.29 H Absolute Nucleated RBC 0.12 H Immature Gran % 3 H Nucleated RBC % 1 H ESR D-Dimer Puncture Site Right Radial ABG pH 7.21 L ABG pCO2 89 H* ABG pO2 101 ABG HCO3 35 H ABG O2 Saturation 94 ABG Base Excess 5 H Oxygen Liter Flow FiO2 45 Sodium 142 Potassium 5.3 H Chloride 100 Carbon Dioxide 31.7 H Anion Gap 10 BUN 26 H Creatinine 1.2 Estim Creat Clear Calc 28.0 L eGFR 43 L BUN/Creatinine Ratio 22 H Glucose [address] Glu mg/dL 137 H Hemoglobin A1c 6.4 H Calculated Osmolality 292 Lactic Acid Calcium 10.5 Corrected Calcium Magnesium 2.4 Total Bilirubin Direct Bilirubin AST ALT Alkaline Phosphatase Troponin I C-Reactive Prot, Quant B-Natriuretic Peptide Total Protein Albumin Globulin Albumin/Globulin Ratio Amylase Lipase Procalcitonin TSH Ur Collection Type Urine Color Urine Clarity Urine pH Ur Specific [place] Urine Protein Urine Glucose (UA) Urine Ketones Urine Blood Urine Nitrite Urine Bilirubin Urine Urobilinogen (Auto) Ur Leukocyte Esterase Urine RBC Urine WBC Ur Squamous Epith Cells Urine Bacteria Hyaline Casts Urine Yeast (Budding) Ur Culture Indicated? Influenza A (Rapid) Negative Influenza B (Rapid) Negative ABG Interpretation ABG results: 05/26/25 05/26/25 01:55 09:34 ABG pH 7.21 L 7.21 L ABG pCO2 91 H* 89 H* ABG pO2 108 101 ABG HCO3 36 H 35 H ABG O2 Saturation 95 94 ABG Base Excess 6 H 5 H Quality Measures Quality Measures none Advance care planning discussed with:: other Assessment & Plan Assessment Current Active Medications: Generic Name Dose Route Start Last Admin Trade Name Freq PRN Reason Stop Dose Admin Acetaminophen 650 mg 05/26/25 02:40 Acetaminophen 325 Mg Tablet PO 06/25/25 02:39 Q6H PRN Fever >101.5 Acetaminophen 650 mg 05/26/25 02:40 Acetaminophen 325 Mg Tablet PO 06/25/25 02:39 Q6H PRN PAIN SCALE 1-3 (mild Hydrocodone Bitart/Acetaminophen 1 tab 05/26/25 03:37 Hydrocodone/Apap 10/325 Tab PO 05/31/25 03:36 Q8HR PRN Pain 4-7 Albuterol/Ipratropium 3 ml 05/26/25 11:00 05/26/25 11:30 Albuterol/Ipratropium (Duoneb) Rt Sravani 3 Ml Nebu INH 06/25/25 10:59 3 ml Q4HRRT CORTEZ Administration Aspirin 81 mg 05/26/25 09:00 05/26/25 09:47 Aspirin Ec 81 Mg Tabec PO 06/25/25 08:59 81 mg QDAY CORTEZ Administration Atorvastatin Calcium 10 mg 05/26/25 09:00 05/26/25 09:44 Atorvastatin Calcium 10 Mg Tablet PO 06/25/25 08:59 10 mg DAILY CORTEZ Administration Budesonide 0.25 mg 05/26/25 09:30 10/09/25 11:30 Budesonide Rt 0.25 Mg/2 Ml Nebu INH 06/25/25 09:29 0.25 mg BIDRT CORTEZ Administration Dextrose 25 ml 05/26/25 03:21 Dextrose 50%-Water Inj 50 Ml Syringe IV 06/25/25 03:20 Q15MIN PRN BG 50-70 responsive npo pt Dextrose 50 ml 05/26/25 03:21 Dextrose 50%-Water Inj 50 Ml Syringe IV 06/25/25 03:20 Q15MIN PRN BG <50 OR BG <70 & pt unresponsive Furosemide 40 mg 05/27/25 09:00 Furosemide Inj 10 Mg/Ml Vial 2 Ml IVP 06/26/25 08:59 QDAY CORTEZ Glucagon 1 mg 05/26/25 03:21 Glucagon Inj 1 Mg Vial IM Q15MIN PRN BG <70, and no IV access Heparin Sodium (Porcine) 5,000 unit 05/26/25 06:00 05/26/25 05:32 Heparin Sod Inj 5000 Unit/Ml Vial SC 06/09/25 05:59 5,000 unit Q8HR CORTEZ Administration Piperacillin/Tazobactam/Dextrose 3.375 g in 50 mls @ 100 mls/hr 05/26/25 04:57 05/26/25 09:47 Zosyn IV 06/02/25 04:56 100 mls/hr Q12HR CORTEZ Administration Protocol Insulin Human Lispro 0 unit 05/26/25 07:30 05/26/25 11:26 Insulin Lispro (Admelog) 1 Unit/0.01 Ml Unit SC 06/25/25 07:29 3 unit AC CORTEZ Administration Protocol Levothyroxine Sodium 100 mcg 05/26/25 06:00 05/26/25 05:22 Levothyroxine Sodium 100 Mcg Tablet PO 06/25/25 05:59 100 mcg ACBR CORTEZ Administration Methylprednisolone Sodium Succinate 40 mg 05/26/25 10:00 05/26/25 11:25 Methylprednisolone Sod Succ 40 Mg/Ml Vial IVP 06/02/25 09:59 40 mg Q8HR CORTEZ Administration Metoprolol Succinate 25 mg 05/26/25 09:00 05/26/25 09:46 Metoprolol Succinate Xl 25 Mg Tabcr PO 06/25/25 08:59 25 mg QDAY CORTEZ Administration Ondansetron HCl 4 mg 05/26/25 02:40 Ondansetron Inj 2 Mg/Ml Inj 2 Ml IVP 06/25/25 02:39 Q6H PRN NAUSEA OR VOMITING Protocol Pantoprazole Sodium 40 mg 05/26/25 09:00 05/26/25 09:44 Pantoprazole 40 Mg Tablet PO 06/25/25 08:59 40 mg QDAY CORTEZ Administration Pramipexole Dihydrochloride 0.5 mg 05/26/25 21:00 Pramipexole 0.25 Mg Tablet PO 06/25/25 20:59 HS CORTEZ Sennosides 1 tab 05/26/25 09:00 05/26/25 09:44 Senna/Docusate Sod 1 Tab Tablet PO 06/25/25 08:59 1 tab QDAY CORTEZ Administration Protocol Sodium Chloride 6 ml 05/26/25 02:13 05/26/25 02:37 Sodium Chloride Rt Sravani 0.9% 3 Ml Nebu INH 06/25/25 02:12 6 ml PRN PRN Administration SOLN Venlafaxine HCl 150 mg 05/26/25 09:00 05/26/25 09:47 Venlafaxine Xr 37.5 Mg Capcr PO 06/25/25 08:59 150 mg QDAY CORTEZ Administration Plan Ms. Coffman is an 89 y/o female with PMHx of ILD/pulmonary fibrosis, chronic respiratory failure on 2 L home oxygen and BiPAP, HFpEF, bedbound, recurrent MDR UTI, hypothyroidism, right breast cancer s/p lumpectomy, T2DM, GERD, depression, chronic back pain, known for recurrent admission for hypoxic hypercapnic respiratory failure presenting to the ED with hypoxia and urinary retention. Admitted for AHRF and MDR UTI. Patient is on hospice, needs goals of care. #Acute on chronic hypoxic hypercapneic respiratory failure #Pulmonary fibrosis #ILD flare with possible superimposed bacterial infection Chronic ILD/pulmonary fibrosis leading to chronic respiratory failure, chronic CO2 retention, requiring daily BiPAP and home oxygen. She has recurrent admission AMS 2/2 hypercapnic respiratory failure as a result. Prognosis remains poo given intensity of symptoms, xrays and will disclose with family regarding comfort measures, likely will continue to worsen with time. Recently was discharged for similar condition. Given Given methylpred 125 mg IV x2, Duoneb, Levofloxacin, Mg sulfate, Lasix 40 mg IV, Morphine 2 mg IV,m Levalbuterol 2.5 mg, nitroglycerin topical in ED. Repeat ABG pH 7.21 pCO2 89 po2 101 HCO3 35 Plan: - Continue BiPAP - Duonebs - Continuous pulse ox - Continue steroid taper as above in HPI - Budesonide Rt 0.25 mg - Lasix 40 mg IV daily - Prednisone 20 mg PO daily x 30 days (05/19-06/19) (per extended prednisone taper) #UTI Hx multidrug resistant recurrent UTI A 1+ blood, +LE, 10 RBC, 55 WBC, 1+ bacteria. yeast. Plan: - Zosyn 2.5 mg IV q6h (renally dosed) - Pending blood and urine cx:___ #HFpEF EF 65% #Pulmonary Arterial Hypertension Echocardiogram from 12/2024 showed EF 65%, trace mitral and tricuspid regurg, no wall motion abnormalities. However, she has chronic fluid retention for which she takes LASIX 20 mg daily. CXR showing vascular congestion and mild bilateral ankle blunting. BNP 810. CXR poor visualization, perihilar vascular congestion. Plan: - Lasix 40mg daily - Strict I+O - Daily weight #Hyperkalemia - resolved K 5.2 Plan: - CTM with daily BMP - SSI and lasix per T2DM and AHRF sections #STEVE Most likely prerenal i/s/o AHRF and HFpEF BUN 36, Cr 1.3, BUN/Cr 28, eGFR 39 Plan: - Management of AHRF and HFpEF as above - CTM with daily BMP #Hypothyroidism TSH WNL Plan: - Levothyroxine 100 mcg PO daily #Insulin-dependent T2DM Last A1c of 7.9 Plan: - SSI - Pending A1C #Hypertension Chronic Plan: - Metoprolol succinate XL 25 mg PO daily #Esophageal stenosis s/p dilation #Chronic constipation s/p EGD with dilation for dysphagia secondary to esophageal stenosis Plan: - Dysphagia III diet #Depression Chronic Plan: - Venlafaxine 150 mg ER PO daily (home med) #GERD Chronic Plan: -Pantoprazole 40 mg PO daily (home med omeprazole not on formulary) #HLD Plan: - Rosuvastatin 5 mg PO QHS (home med) - Aspirin 81 mg PO daily (home med) - Atorvastatin 10mg PO QD #Chronic back pain Plan: - [place] 10-325 mg PO TID PRN (home med) Checklist Dispo: Admit to tele for AHRF Diet: Carb consistent, dysphagia 3 Bowel Reg: doc-senna daily cortez VTE ppx: heparin subQ GI ppx: Pantoprazole 40 mg PO daily Pain mgmt: Tylenol, [place] 10-325 (home med) Code status: DNR Plan discussed with Dr. Gomez and Dr. Kelvin Casey MD PGY1
[2025-05-26 12:39] LABS: Albumin, Serum 3.9 gm/dL (3.4-4.8); Anion Gap 15 (7-16); BUN/Creatinine Ratio 17 Ratio (12-20); Blood Urea Nitrogen 22 mg/dL (9-23); Calcium 9.3 mg/dL (8.3-10.6); Calcium (Corrected) 9.4 mg/dL (8.5-10.1); Carbon Dioxide 27.3 mMol/L (20.0-31.0); Chloride 101 mMol/L (98-107); Creatinine (Component) 1.3 mg/dL (0.6-1.3); Estimated Creatinine Clearance 25.9 mL/min (>60); Glucose 265 mg/dL (74-106); Osmolality,Calculated 297 (275-295); Phosphorous 3.5 mg/dL (2.4-5.1); Potassium 4.3 mMol/L (3.4-5.1); Sodium 143 mMol/L (136-145); eGFR 39 See Note
[2025-05-26] MEDS: INSULIN DEGLUDEC 5 UNIT/0.05 ML (PER 5 UNITS) 10 UNIT SC (14:52)
[2025-05-26] MEDS: INSULIN LISPRO (AdmeLOG) 1 UNIT/0.01 ML UNIT 3 UNIT SC ×2 (17:16→21:24)
[2025-05-26] MEDS: INSULIN LISPRO (AdmeLOG) 1 UNIT/0.01 ML UNIT 5 UNIT SC (19:01)
[2025-05-26] MEDS: PRAMIPEXOLE 0.25 MG TABLET 0.5 MG PO (21:22)
[2025-05-27] VITALS (15 sets, daily range): BP systolic 114–139; BP diastolic 53–87; PULSE 74–111; RESP 17–30; TEMP 36–36.6; O2SAT 93–100; BMI 35.6
[2025-05-27] MEDS: ALBUTEROL/IPRATROPIUM (Duoneb) RT SOL 3 ML NEBU INH ×6 (02:34→22:09)
[2025-05-27 06:18] LABS: Basophils # (Auto) 0.1 Thou/mm3 (0.0-0.2); Basophils % (Auto) 1 % (0-2.5); Eosinophils # (Auto) 0.0 Thou/mm3 (0.0-0.5); Eosinophils % (Auto) 0 % (0-10); Hematocrit 31.7 % (36.0-46.0); Hemoglobin 9.0 g/dL (12.0-16.0); Immature Granulocytes Auto 0.22 Thou/mm3 (0.00-0.00); Lymphocytes # (Auto) 0.4 Thou/mm3 (1.0-4.8); Lymphocytes % (Auto) 4 % (10-50); Mean Corpuscular HGB Conc 28.4 g/dl (31.0-37.0); Mean Corpuscular Hemoglobin 28.2 pg (25.0-35.0); Mean Corpuscular Volume 99 fL (80-100); Monocytes # (Auto) 0.5 Thou/mm3 (0.0-0.8); Monocytes % (Auto) 4 % (0-12); Neutrophils # (Auto) 10.0 Thou/mm3 (1.8-7.7); Neutrophils % (Auto) 90 % (37-80); Nucleated Red Blood Cell # 0.12 Thou/mm3 (0.00-0.00); Nucleated Red Blood Cell % 1 /100 WBC (0); Platelet Count 230 Thou/mm3 (140-440); RDW Standard Deviation 59.8 fL (36.4-46.3); Red Blood Count 3.19 Miln/mm3 (4.00-5.20); White Blood Count 11.2 Thou/mm3 (3.6-11.0)
[2025-05-27] MEDS: LEVOTHYROXINE SODIUM 100 MCG TABLET PO (06:22)
[2025-05-27] MEDS: HEPARIN SOD INJ 5000 UNIT/ML VIAL SC ×3 (06:25→21:04)
[2025-05-27] MEDS: BUDESONIDE RT 0.25 MG/2 ML NEBU INH ×2 (06:41→19:07)
[2025-05-27 06:49] LABS: Anion Gap 8 (7-16); BUN/Creatinine Ratio 25 Ratio (12-20); Blood Urea Nitrogen 38 mg/dL (9-23); Calcium 10.0 mg/dL (8.3-10.6); Carbon Dioxide 38.3 mMol/L (20.0-31.0); Chloride 95 mMol/L (98-107); Creatinine (Component) 1.5 mg/dL (0.6-1.3); Estimated Creatinine Clearance 31.4 mL/min (>60); Glucose 238 mg/dL (74-106); Magnesium 2.0 mg/dL (1.6-2.6); Osmolality,Calculated 298 (275-295); Phosphorous 4.0 mg/dL (2.4-5.1); Potassium 5.1 mMol/L (3.4-5.1); Sodium 141 mMol/L (136-145); eGFR 33 See Note
[2025-05-27] MEDS: INSULIN LISPRO (AdmeLOG) 1 UNIT/0.01 ML UNIT SC ×4 (07:51→20:40)
[2025-05-27] MEDS: INSULIN LISPRO (AdmeLOG) 1 UNIT/0.01 ML UNIT 3 UNIT SC ×4 (07:52→20:40)
[2025-05-27] MEDS: PANTOPRAZOLE 40 MG TABLET PO (08:23)
[2025-05-27] MEDS: ATORVASTATIN CALCIUM 10 MG TABLET PO (08:23)
[2025-05-27] MEDS: ASPIRIN EC 81 MG TABEC PO (08:23)
[2025-05-27] MEDS: SENNA/DOCUSATE SOD 1 TAB TABLET PO (08:24)
[2025-05-27] MEDS: VENLAFAXINE XR 37.5 MG CAPCR 150 MG PO (08:24)
[2025-05-27] MEDS: PIPER/TAZO 3.375 GM PREMIX 3.375 G/50 ML BAG IV ×2 (08:25→20:39)
[2025-05-27] MEDS: METOPROLOL SUCCINATE XL 25 MG TABCR PO (08:29)
[2025-05-27] MEDS: FUROSEMIDE INJ 10 MG/ML VIAL 2 ML 40 MG IVP (08:30)
--- NOTE | 2025-05-27 08:49 | ESPR_ITS ---
<Statement entered by John Paul Warren MD - 06/10/25 17:15> I reviewed above note and agree with findings and plans. I have also personally examined the patient with medicine team and went over assessment and plan with medical team including pharmacy graduate intern and resident physician. <Statement entered by Jmi Gomez MD - 05/28/25 07:07> I saw and examined patient personally and supervised PGY 1 resident, Dr. Patrick with formulating a management plan. I agree with the documentation with the exceptions as listed below. Ms. Coffman is an 89 y/o female with PMHx of ILD/pulmonary fibrosis, chronic respiratory failure on 2 L home oxygen and BiPAP, HFpEF, bedbound, recurrent MDR UTI, hypothyroidism, right breast cancer s/p lumpectomy, T2DM, GERD, depression, chronic back pain, known for recurrent admission for hypoxic hypercapnic respiratory failure presenting to the ED with hypoxia and urinary retention. Patient was admitted for acute on chronic respiratory failure with hypoxia and hypercapnia secondary to likely ILD flare. Problem list: 1. Acute on chronic respiratory failure with hypoxia and hypercapnia secondary to ILD flare - resolving 2. History of pulmonary fibrosis 3. Pulmonary hypertension [RVSP 32 mmHg] 4. Congestive heart failure with preserved ejection fraction [65%] 5. Acute on chronic respiratory acidosis 6. History of MDR UTIs 7. Hypothyroidism 8. IDDM type II 9. Primary hypertension Patient presented with worsening shortness of breath and was admitted for acute on chronic respiratory failure with hypoxia and hypercapnia secondary to ILD flare. Patient is on supplemental O2 therapy, methylprednisolone and chest physiotherapy. Patient remains on BiPap at night and is currently saturatiing 94-9% on 2-3L via NC. For her UTI she is currently on 2.375 g IV twice daily. Anticipate discharge in 24-48 hours once condition continues to improve. If acute decompensation, will again attempt goals of care. Plan of care discussed with Attending Dr. Kelvin Gomez MD PGY 2 Disclaimer: This note was dictated by speech recognition. Minor errors in senior patient account representative may be present due to voice recognition software. Documentation for date of: 05/27/25 Subjective Subjective Interval history: NAEON, labs reviewed, notable for contraction alkalosis; bicarb 38.3 in the setting of diaeresis. BUN 38, Cr 1.5. Lasix discontinued. Hb 9.0, Hct 31.7 downtrend from 05/26 Hb 9.7, Hct 33.8.At bedside, patient on 3L NC sating at 99%. Patient does not endorse SOB, pleurisy, or chest pain. Patient says she feels better, asking family at bediside about condition, and they mention Adelaida looks better than yesterday. Exam Vital Signs Temp Pulse Resp BP Pulse Ox O2 Del Method O2 Flow Rate 97.9 F 105 H 25 H 115/53 L 100 Nasal Cannula 3 05/27/25 08:00 05/27/25 08:30 05/27/25 08:00 05/27/25 08:30 05/27/25 08:00 05/27/25 08:00 05/27/25 08:00 FiO2 40 05/27/25 04:00 Narrative Exam General: Lying in bed, no acute distress. hand twitching, able to follow some commands, easily distractable. Eye: PERRL, EOMI, normal conjunctiva, no scleral icterus HENT: Normocephalic, atraumatic Neck: Supple, non-tender Lungs: dry cough on exam, diminished breath sounds in posterior lung chandra, anterior lungs chandra show diffuse crackles. Heart: Normal S1 and S2, no S3 or S4 appreciated. Abdomen: Soft, non-tender, non-distended, normal bowel sounds. Musculoskeletal: Unable to assess as patient was minimally responsive. +1 pretibial edema Skin: Skin is warm, dry, no rashes or lesions. Neurologic: Alert, awake, unable to assess orientation. No focal neuro deficits. Objective Labs 05/27/25 05:04 05/27/25 05:04 Labs: Laboratory Results - last 24 hr 05/26/25 05/26/25 05/27/25 09:34 11:50 05:04 WBC 11.2 H RBC 3.19 L Hgb 9.0 L Hct 31.7 L MCV 99 MCH 28.2 MCHC 28.4 L RDW Std Deviation 59.8 H Plt Count 230 Neut % (Auto) 90 H Lymph % (Auto) 4 L [place] % (Auto) 4 Eos % (Auto) 0 Baso % (Auto) 1 Neut # (Auto) 10.0 H Lymph # (Auto) 0.4 L [place] # (Auto) 0.5 Eos # (Auto) 0.0 Baso # (Auto) 0.1 Immature Gran # (Auto) 0.22 H Absolute Nucleated RBC 0.12 H Immature Gran % 2 H Nucleated RBC % 1 H Puncture Site Right Radial ABG pH 7.21 L ABG pCO2 89 H* ABG pO2 101 ABG HCO3 35 H ABG O2 Saturation 94 ABG Base Excess 5 H FiO2 45 Sodium 143 141 Potassium 4.3 D 5.1 D Chloride 101 95 L Carbon Dioxide 27.3 38.3 H Anion Gap 15 8 BUN 22 38 H Creatinine 1.3 1.5 H Estim Creat Clear Calc 25.9 L 31.4 L eGFR 39 L 33 L BUN/Creatinine Ratio 17 25 H Glucose 265 H D 238 H Calculated Osmolality 297 H 298 H Calcium 9.3 10.0 Corrected Calcium 9.4 Phosphorus 3.5 4.0 Magnesium 2.0 Albumin 3.9 ABG Interpretation ABG results: 05/26/25 05/26/25 01:55 09:34 ABG pH 7.21 L 7.21 L ABG pCO2 91 H* 89 H* ABG pO2 108 101 ABG HCO3 36 H 35 H ABG O2 Saturation 95 94 ABG Base Excess 6 H 5 H Quality Measures Quality Measures none Advance care planning discussed with:: patient Assessment & Plan Assessment Current Active Medications: Generic Name Dose Route Start Last Admin Trade Name Freq PRN Reason Stop Dose Admin Acetaminophen 650 mg 05/26/25 02:40 Acetaminophen 325 Mg Tablet PO 06/25/25 02:39 Q6H PRN Fever >101.5 Acetaminophen 650 mg 05/26/25 02:40 Acetaminophen 325 Mg Tablet PO 06/25/25 02:39 Q6H PRN PAIN SCALE 1-3 (mild Hydrocodone Bitart/Acetaminophen 1 tab 05/26/25 03:37 Hydrocodone/Apap 10/325 Tab PO 05/31/25 03:36 Q8HR PRN Pain 4-7 Albuterol/Ipratropium 3 ml 05/26/25 11:00 05/27/25 06:41 Albuterol/Ipratropium (Duoneb) Rt Sravani 3 Ml Nebu INH 06/25/25 10:59 3 ml Q4HRRT CORTEZ Administration Aspirin 81 mg 05/26/25 09:00 05/27/25 08:23 Aspirin Ec 81 Mg Tabec PO 06/25/25 08:59 81 mg QDAY CORTEZ Administration Atorvastatin Calcium 10 mg 05/26/25 09:00 05/27/25 08:23 Atorvastatin Calcium 10 Mg Tablet PO 06/25/25 08:59 10 mg DAILY CORTEZ Administration Budesonide 0.25 mg 05/26/25 09:30 05/27/25 06:41 Budesonide Rt 0.25 Mg/2 Ml Nebu INH 06/25/25 09:29 0.25 mg BIDRT CORTEZ Administration Dextrose 25 ml 05/26/25 13:52 Dextrose 50%-Water Inj 50 Ml Syringe IV 06/25/25 13:51 Q15MIN PRN BG 50-70 responsive npo pt Dextrose 50 ml 05/26/25 13:52 Dextrose 50%-Water Inj 50 Ml Syringe IV 06/25/25 13:51 Q15MIN PRN BG <50 OR BG <70 & pt unresponsive Glucagon 1 mg 05/26/25 13:52 Glucagon Inj 1 Mg Vial IM Q15MIN PRN BG <70, and no IV access Heparin Sodium (Porcine) 5,000 unit 05/26/25 06:00 05/27/25 06:25 Heparin Sod Inj 5000 Unit/Ml Vial SC 06/09/25 05:59 5,000 unit Q8HR CORTEZ Administration Piperacillin/Tazobactam/Dextrose 3.375 g in 50 mls @ 100 mls/hr 05/26/25 04:57 05/27/25 08:25 Zosyn IV 06/02/25 04:56 100 mls/hr Q12HR CORTEZ Administration Protocol Insulin Degludec 15 unit 05/27/25 09:00 Insulin Degludec 5 Unit/0.05 Ml (Per 5 Units) SC 06/26/25 08:59 QDAY CORTEZ Insulin Human Lispro 0 unit 05/26/25 17:00 05/27/25 07:51 Insulin Lispro (Admelog) 1 Unit/0.01 Ml Unit SC 06/25/25 16:59 4 unit ACHS [facility] Administration Protocol Insulin Human Lispro 3 unit 05/26/25 17:00 05/27/25 07:52 Insulin Lispro (Admelog) 1 Unit/0.01 Ml Unit SC 06/25/25 16:59 3 unit ACHS CORTEZ Administration Levothyroxine Sodium 100 mcg 05/26/25 06:00 05/27/25 06:22 Levothyroxine Sodium 100 Mcg Tablet PO 06/25/25 05:59 100 mcg ACBR CORTEZ Administration Methylprednisolone Sodium Succinate 40 mg 05/26/25 10:00 05/27/25 06:22 Methylprednisolone Sod Succ 40 Mg/Ml Vial IVP 06/02/25 09:59 40 mg Q8HR CORTEZ Administration Metoprolol Succinate 25 mg 05/26/25 09:00 05/27/25 08:29 Metoprolol Succinate Xl 25 Mg Tabcr PO 06/25/25 08:59 25 mg QDAY CORTEZ Administration Ondansetron HCl 4 mg 05/26/25 02:40 Ondansetron Inj 2 Mg/Ml Inj 2 Ml IVP 06/25/25 02:39 Q6H PRN NAUSEA OR VOMITING Protocol Pantoprazole Sodium 40 mg 05/26/25 09:00 05/27/25 08:23 Pantoprazole 40 Mg Tablet PO 06/25/25 08:59 40 mg QDAY CORTEZ Administration Pharmacy Consult 1 each 05/26/25 16:42 Pharmacy Renal Dose Adjustment 1 Ea XX 06/25/25 16:41 PRN PRN CONSULT Pramipexole Dihydrochloride 0.5 mg 05/26/25 21:00 05/26/25 21:22 Pramipexole 0.25 Mg Tablet PO 06/25/25 20:59 0.5 mg HS CORTEZ Administration Sennosides 1 tab 05/26/25 09:00 05/27/25 08:24 Senna/Docusate Sod 1 Tab Tablet PO 06/25/25 08:59 1 tab QDAY CORTEZ Administration Protocol Sodium Chloride 6 ml 05/26/25 02:13 05/26/25 02:37 Sodium Chloride Rt Sravani 0.9% 3 Ml Nebu INH 06/25/25 02:12 6 ml PRN PRN Administration SOLN Venlafaxine HCl 150 mg 05/26/25 09:00 05/27/25 08:24 Venlafaxine Xr 37.5 Mg Capcr PO 06/25/25 08:59 150 mg QDAY CORTEZ Administration Plan Ms. Coffman is an 89 y/o female with PMHx of ILD/pulmonary fibrosis, chronic respiratory failure on 2 L home oxygen and BiPAP, HFpEF, bedbound, recurrent MDR UTI, hypothyroidism, right breast cancer s/p lumpectomy, T2DM, GERD, depression, chronic back pain, known for recurrent admission for hypoxic hypercapnic respiratory failure presenting to the ED with hypoxia and urinary retention. Admitted for AHRF and MDR UTI. Patient is on hospice, needs goals of care. #Acute on chronic hypoxic hypercapneic respiratory failure #Pulmonary fibrosis #ILD flare with possible superimposed bacterial infection Chronic ILD/pulmonary fibrosis leading to chronic respiratory failure, chronic CO2 retention, requiring daily BiPAP and home oxygen. She has recurrent admission AMS 2/2 hypercapnic respiratory failure as a result. Prognosis remains poo given intensity of symptoms, xrays and will disclose with family regarding comfort measures, likely will continue to worsen with time. Recently was discharged for similar condition. Given Given methylpred 125 mg IV x2, Duoneb, Levofloxacin, Mg sulfate, Lasix 40 mg IV, Morphine 2 mg IV,m Levalbuterol 2.5 mg, nitroglycerin topical in ED. Repeat ABG pH 7.21 pCO2 89 po2 101 HCO3 35 Plan: - Continue BiPAP - Duonebs - Continuous pulse ox - Budesonide Rt 0.25 mg - discontinue lasix - discontinue solumedrol 40mg IV q8hrs for AM 05/28 #UTI Hx multidrug resistant recurrent UTI A 1+ blood, +LE, 10 RBC, 55 WBC, 1+ bacteria. yeast. Plan: - Zosyn 2.5 mg IV q6h (renally dosed) - Pending blood and urine cx #HFpEF EF 65% #Pulmonary Arterial Hypertension Echocardiogram from 12/2024 showed EF 65%, trace mitral and tricuspid regurg, no wall motion abnormalities. However, she has chronic fluid retention for which she takes LASIX 20 mg daily. CXR showing vascular congestion and mild bilateral ankle blunting. BNP 810. CXR poor visualization, perihilar vascular congestion. Plan: - discontinue Lasix 40mg daily - Strict I+O - Daily weight #STEVE Most likely prerenal i/s/o AHRF and HFpEF BUN 36, Cr 1.3, BUN/Cr 28, eGFR 39 Plan: - Management of AHRF and HFpEF as above - CTM with daily BMP #Hypothyroidism TSH WNL Plan: - Levothyroxine 100 mcg PO daily #Insulin-dependent T2DM Last A1c of 7.9 Plan: - SSI - Pending A1C #Hypertension Chronic Plan: - Metoprolol succinate XL 25 mg PO daily #Esophageal stenosis s/p dilation #Chronic constipation s/p EGD with dilation for dysphagia secondary to esophageal stenosis Plan: - Dysphagia III diet #Depression Chronic Plan: - Venlafaxine 150 mg ER PO daily (home med) #GERD Chronic Plan: -Pantoprazole 40 mg PO daily (home med omeprazole not on formulary) #HLD Plan: - Rosuvastatin 5 mg PO QHS (home med) - Aspirin 81 mg PO daily (home med) - Atorvastatin 10mg PO QD #Chronic back pain Plan: - [place] 10-325 mg PO TID PRN (home med) #Hyperkalemia - resolved Dispo: Admit to tele for AHRF Diet: Carb consistent, dysphagia 3 Bowel Reg: doc-senna daily cortez VTE ppx: heparin subQ GI ppx: Pantoprazole 40 mg PO daily Pain mgmt: Tylenol, [place] 10-325 (home med) Code status: DNR Case was discussed with Attending Dr. Warren, and Senior Resident Dr. Jason Patrick, DO PGY-1
[2025-05-27] MEDS: INSULIN DEGLUDEC 5 UNIT/0.05 ML (PER 5 UNITS) 15 UNIT SC (09:13)
[2025-05-27 09:57] LABS: Base Excess 2 (-3-3); HCO3 26 mEq/L (20-26); Inspired O2, VO2 Liters 5 L/min; O2 Saturation 99 % (91-98); PCO2 39 mmHg (32.0-48.0); PO2 109 mmHg (83-108); pH, Arterial 7.44 (7.35-7.45)
[2025-05-27 09:59] LABS: Allen Test Performed/OK; Puncture Site Right Radial
--- NOTE | 2025-05-27 15:47 | PC.SS ---
Rounding Note: Patient still receiving steroids and antibiotics. Plan to d/c home tomorrow.
[2025-05-27] MEDS: PRAMIPEXOLE 0.25 MG TABLET 0.5 MG PO (20:38)
[2025-05-28] VITALS (15 sets, daily range): BP systolic 106–136; BP diastolic 67–79; PULSE 83–109; RESP 13–31; TEMP 36–36.7; O2SAT 94–100; BMI 35.2
[2025-05-28] MEDS: ALBUTEROL/IPRATROPIUM (Duoneb) RT SOL 3 ML NEBU INH ×7 (02:14→22:20)
[2025-05-28] MEDS: HEPARIN SOD INJ 5000 UNIT/ML VIAL SC ×3 (05:08→21:44)
[2025-05-28] MEDS: LEVOTHYROXINE SODIUM 100 MCG TABLET PO (06:26)
[2025-05-28] MEDS: BUDESONIDE RT 0.25 MG/2 ML NEBU INH ×2 (07:01→18:59)
[2025-05-28 07:50] LABS: Basophils # (Auto) 0.1 Thou/mm3 (0.0-0.2); Basophils % (Auto) 0 % (0-2.5); Eosinophils # (Auto) 0.0 Thou/mm3 (0.0-0.5); Eosinophils % (Auto) 0 % (0-10); Hematocrit 32.9 % (36.0-46.0); Hemoglobin 9.6 g/dL (12.0-16.0); Immature Granulocytes Auto 0.21 Thou/mm3 (0.00-0.00); Lymphocytes # (Auto) 0.5 Thou/mm3 (1.0-4.8); Lymphocytes % (Auto) 4 % (10-50); Mean Corpuscular HGB Conc 29.2 g/dl (31.0-37.0); Mean Corpuscular Hemoglobin 28.4 pg (25.0-35.0); Mean Corpuscular Volume 97 fL (80-100); Monocytes # (Auto) 0.5 Thou/mm3 (0.0-0.8); Monocytes % (Auto) 4 % (0-12); Neutrophils # (Auto) 10.2 Thou/mm3 (1.8-7.7); Neutrophils % (Auto) 90 % (37-80); Nucleated Red Blood Cell # 0.06 Thou/mm3 (0.00-0.00); Nucleated Red Blood Cell % 1 /100 WBC (0); Platelet Count 229 Thou/mm3 (140-440); RDW Standard Deviation 58.4 fL (36.4-46.3); Red Blood Count 3.38 Miln/mm3 (4.00-5.20); White Blood Count 11.4 Thou/mm3 (3.6-11.0)
[2025-05-28 08:12] LABS: Anion Gap 6 (7-16); BUN/Creatinine Ratio 28 Ratio (12-20); Blood Urea Nitrogen 39 mg/dL (9-23); Calcium 9.2 mg/dL (8.3-10.6); Carbon Dioxide 39.7 mMol/L (20.0-31.0); Chloride 95 mMol/L (98-107); Creatinine (Component) 1.4 mg/dL (0.6-1.3); Estimated Creatinine Clearance 33.4 mL/min (>60); Glucose 279 mg/dL (74-106); Magnesium 2.1 mg/dL (1.6-2.6); Osmolality,Calculated 300 (275-295); Phosphorous 3.3 mg/dL (2.4-5.1); Potassium 4.5 mMol/L (3.4-5.1); Sodium 141 mMol/L (136-145); eGFR 36 See Note
[2025-05-28] MEDS: SENNA/DOCUSATE SOD 1 TAB TABLET PO (08:26)
[2025-05-28] MEDS: VENLAFAXINE XR 37.5 MG CAPCR 150 MG PO (08:26)
[2025-05-28] MEDS: PIPER/TAZO 3.375 GM PREMIX 3.375 G/50 ML BAG IV ×2 (08:26→21:43)
[2025-05-28] MEDS: METOPROLOL SUCCINATE XL 25 MG TABCR PO (08:27)
[2025-05-28] MEDS: ASPIRIN EC 81 MG TABEC PO (08:27)
[2025-05-28] MEDS: ATORVASTATIN CALCIUM 10 MG TABLET PO (08:27)
[2025-05-28] MEDS: PANTOPRAZOLE 40 MG TABLET PO (08:27)
[2025-05-28] MEDS: INSULIN LISPRO (AdmeLOG) 1 UNIT/0.01 ML UNIT 3 UNIT SC ×4 (08:28→21:44)
[2025-05-28] MEDS: INSULIN LISPRO (AdmeLOG) 1 UNIT/0.01 ML UNIT SC ×4 (08:28→21:44)
[2025-05-28] MEDS: INSULIN DEGLUDEC 5 UNIT/0.05 ML (PER 5 UNITS) 15 UNIT SC (08:28)
--- NOTE | 2025-05-28 11:24 | XR_ITS ---
EXAMINATION: AP chest single view TECHNIQUE: AP portable semiupright chest single view Date and time: May 28, 2025, 1131 hours, comparison May 26, 2025 INDICATIONS: Hypoxia this week. FINDINGS: Moderate CHF. Moderate enlargement cardiac contour. Enlarged ectatic thoracic aorta. Prominent vascular congestion. Perihilar edema. Severe osteopenia. IMPRESSION: Moderate CHF
[2025-05-28 12:32] LABS: Lactate (Lactic Acid) 1.9 mMol/L (0.4-2.0)
--- NOTE | 2025-05-28 12:39 | ESPR_ITS ---
<Statement entered by John Paul Warren MD - 06/10/25 17:17> I reviewed above note and agree with findings and plans. I have also personally examined the patient with medicine team and went over assessment and plan with medical team including validation intern and resident physician. Documentation for date of: 05/28/25 No overnight events. Patient examined at bedside. Patient is saturating well on 2 liters at 95%. Pulmonary fibrosis continues to worsen as patient has increased bicarbo, likely secondary to increased carbon dioxide from air trapping.Goals of care required with next of kin. Patient has bipap at home. Continue to hold patient's lasix given STEVE, consider resuming if Cr improved. Continue to monitor fluid status given history of chf. No bowel movement recorded. Senna docusate on board. Home w/ [facility]. Will require ambulance transport. - The patient's plan was discussed with attending Dr. Kelvin Collazo MD PGY2 Internal Medicine Subjective Subjective Interval history: Overnight tele 9 PVCs with BBB. Nurse reports patient O2 sats dropped to 50s over night but immediately recovered to high 90s after resuming Bipap. Patient examined bedside, labs reviewed. AOx3 but confused and distracted at times, made multiple attempts to turn on TV in the midst of the interview. Reports no new symptoms denies SOB, chest pain, fevers, chills, night sweats. ABG , CBC, CMP and CXR ordered as well as 1x duonebs with following VBGlactic acid. CXR showed mild improvement in lung opacity, ABG was most likely a bad blood draw, and there was no lactic acidosis. VBG was unremarkable. Exam Vital Signs Temp Pulse Resp BP Pulse Ox O2 Del Method O2 Flow Rate 96.8 F 105 H 24 H 129/67 94 L Nasal Cannula 3 05/28/25 12:00 05/28/25 12:00 05/28/25 12:00 05/28/25 12:00 05/28/25 12:00 05/28/25 12:00 05/28/25 12:00 FiO2 40 05/28/25 08:00 Narrative Exam General: Lying in bed, no acute distress. hand twitching, able to follow some commands, easily distractable. Eye: PERRL, EOMI, normal conjunctiva, no scleral icterus HENT: Normocephalic, atraumatic Neck: Supple, non-tender Lungs: dry cough on exam, very poor inspiratory effort, minimal lung sounds auscultated. Heart: Normal S1 and S2, no S3 or S4 appreciated. Abdomen: Soft, non-tender, non-distended, normal bowel sounds. Musculoskeletal: Unable to assess as patient was minimally responsive. Trace pretibial edema Skin: Skin is warm, dry, no rashes or lesions. Neurologic: Alert, awake, unable to assess orientation. No focal neuro deficits. Objective Labs 05/29/25 08:10 05/29/25 04:25 Labs: Laboratory Results - last 24 hr 05/28/25 05/28/25 07:41 11:58 WBC 11.4 H RBC 3.38 L Hgb 9.6 L Hct 32.9 L MCV 97 MCH 28.4 MCHC 29.2 L RDW Std Deviation 58.4 H Plt Count 229 Neut % (Auto) 90 H Lymph % (Auto) 4 L [place] % (Auto) 4 Eos % (Auto) 0 Baso % (Auto) 0 Neut # (Auto) 10.2 H Lymph # (Auto) 0.5 L [place] # (Auto) 0.5 Eos # (Auto) 0.0 Baso # (Auto) 0.1 Immature Gran # (Auto) 0.21 H Absolute Nucleated RBC 0.06 H Immature Gran % 2 H Nucleated RBC % 1 H Sodium 141 Potassium 4.5 D Chloride 95 L Carbon Dioxide 39.7 H Anion Gap 6 L BUN 39 H Creatinine 1.4 H Estim Creat Clear Calc 33.4 L eGFR 36 L BUN/Creatinine Ratio 28 H Glucose 279 H Calculated Osmolality 300 H Lactic Acid 1.9 Calcium 9.2 Phosphorus 3.3 Magnesium 2.1 ABG Interpretation ABG results: 05/26/25 05/26/25 05/27/25 01:55 09:34 09:47 ABG pH 7.21 L 7.21 L 7.44 D ABG pCO2 91 H* 89 H* 39 D ABG pO2 108 101 109 H ABG HCO3 36 H 35 H 26 ABG O2 Saturation 95 94 99 H ABG Base Excess 6 H 5 H 2 Quality Measures Quality Measures none Advance care planning discussed with:: other Assessment & Plan Assessment Current Active Medications: Generic Name Dose Route Start Last Admin Trade Name Freq PRN Reason Stop Dose Admin Acetaminophen 650 mg 05/26/25 02:40 Acetaminophen 325 Mg Tablet PO 06/25/25 02:39 Q6H PRN Fever >101.5 Acetaminophen 650 mg 05/26/25 02:40 Acetaminophen 325 Mg Tablet PO 06/25/25 02:39 Q6H PRN PAIN SCALE 1-3 (mild Hydrocodone Bitart/Acetaminophen 1 tab 05/26/25 03:37 Hydrocodone/Apap 10/325 Tab PO 05/31/25 03:36 Q8HR PRN Pain 4-7 Albuterol/Ipratropium 3 ml 05/26/25 11:00 05/28/25 09:59 Albuterol/Ipratropium (Duoneb) Rt Sravani 3 Ml Nebu INH 06/25/25 10:59 3 ml Q4HRRT CORTEZ Administration Aspirin 81 mg 05/26/25 09:00 05/28/25 08:27 Aspirin Ec 81 Mg Tabec PO 06/25/25 08:59 81 mg QDAY CORTEZ Administration Atorvastatin Calcium 10 mg 05/26/25 09:00 05/28/25 08:27 Atorvastatin Calcium 10 Mg Tablet PO 06/25/25 08:59 10 mg DAILY CORTEZ Administration Budesonide 0.25 mg 05/26/25 09:30 05/28/25 07:01 Budesonide Rt 0.25 Mg/2 Ml Nebu INH 06/25/25 09:29 0.25 mg BIDRT CORTEZ Administration Dextrose 25 ml 05/26/25 13:52 Dextrose 50%-Water Inj 50 Ml Syringe IV 06/25/25 13:51 Q15MIN PRN BG 50-70 responsive npo pt Dextrose 50 ml 05/26/25 13:52 Dextrose 50%-Water Inj 50 Ml Syringe IV 06/25/25 13:51 Q15MIN PRN BG <50 OR BG <70 & pt unresponsive Glucagon 1 mg 05/26/25 13:52 Glucagon Inj 1 Mg Vial IM Q15MIN PRN BG <70, and no IV access Heparin Sodium (Porcine) 5,000 unit 05/26/25 06:00 05/28/25 05:08 Heparin Sod Inj 5000 Unit/Ml Vial SC 06/09/25 05:59 5,000 unit Q8HR CORTEZ Administration Piperacillin/Tazobactam/Dextrose 3.375 g in 50 mls @ 100 mls/hr 05/27/25 21:00 05/28/25 08:26 Zosyn IV 06/03/25 20:59 100 mls/hr Q12HR CORTEZ Administration Protocol Insulin Degludec 15 unit 05/27/25 09:00 05/28/25 08:28 Insulin Degludec 5 Unit/0.05 Ml (Per 5 Units) SC 06/26/25 08:59 15 unit QDAY CORTEZ Administration Insulin Human Lispro 0 unit 05/26/25 17:00 05/28/25 12:08 Insulin Lispro (Admelog) 1 Unit/0.01 Ml Unit SC 06/25/25 16:59 6 unit ACHS CORTEZ Administration Protocol Insulin Human Lispro 3 unit 05/26/25 17:00 05/28/25 12:09 Insulin Lispro (Admelog) 1 Unit/0.01 Ml Unit SC 06/25/25 16:59 3 unit ACHS CORTEZ Administration Levothyroxine Sodium 100 mcg 05/26/25 06:00 05/28/25 06:26 Levothyroxine Sodium 100 Mcg Tablet PO 06/25/25 05:59 100 mcg ACBR CORTEZ Administration Methylprednisolone Sodium Succinate 40 mg 05/26/25 10:00 05/28/25 05:09 Methylprednisolone Sod Succ 40 Mg/Ml Vial IVP 06/02/25 09:59 40 mg Q8HR CORTEZ Administration Metoprolol Succinate 25 mg 05/26/25 09:00 05/28/25 08:27 Metoprolol Succinate Xl 25 Mg Tabcr PO 06/25/25 08:59 25 mg QDAY CORTEZ Administration Ondansetron HCl 4 mg 05/26/25 02:40 Ondansetron Inj 2 Mg/Ml Inj 2 Ml IVP 06/25/25 02:39 Q6H PRN NAUSEA OR VOMITING Protocol Pantoprazole Sodium 40 mg 05/26/25 09:00 05/28/25 08:27 Pantoprazole 40 Mg Tablet PO 06/25/25 08:59 40 mg QDAY CORTEZ Administration Pharmacy Consult 1 each 05/26/25 16:42 Pharmacy Renal Dose Adjustment 1 Ea XX 06/25/25 16:41 PRN PRN CONSULT Pramipexole Dihydrochloride 0.5 mg 05/26/25 21:00 05/27/25 20:38 Pramipexole 0.25 Mg Tablet PO 06/25/25 20:59 0.5 mg HS CORTEZ Administration Sennosides 1 tab 05/26/25 09:00 05/28/25 08:26 Senna/Docusate Sod 1 Tab Tablet PO 06/25/25 08:59 1 tab QDAY CORTEZ Administration Protocol Sodium Chloride 6 ml 05/26/25 02:13 05/26/25 02:37 Sodium Chloride Rt Sravani 0.9% 3 Ml Nebu INH 06/25/25 02:12 6 ml PRN PRN Administration SOLN Venlafaxine HCl 150 mg 05/26/25 09:00 05/28/25 08:26 Venlafaxine Xr 37.5 Mg Capcr PO 06/25/25 08:59 150 mg QDAY CORTEZ Administration Plan Ms. Coffman is an 89 y/o female with PMHx of ILD/pulmonary fibrosis, chronic respiratory failure on 2 L home oxygen and BiPAP, HFpEF, bedbound, recurrent MDR UTI, hypothyroidism, right breast cancer s/p lumpectomy, T2DM, GERD, depression, chronic back pain, known for recurrent admission for hypoxic hypercapnic respiratory failure presenting to the ED with hypoxia and urinary retention. Admitted for AHRF and MDR UTI. Patient is on hospice, needs goals of care. #Acute on chronic hypoxic hypercapneic respiratory failure #Pulmonary fibrosis #ILD flare with possible superimposed bacterial infection Chronic ILD/pulmonary fibrosis leading to chronic respiratory failure, chronic CO2 retention, requiring daily BiPAP and home oxygen. She has recurrent admission AMS 2/2 hypercapnic respiratory failure as a result. Prognosis remains poo given intensity of symptoms, xrays and will disclose with family regarding comfort measures, likely will continue to worsen with time. Recently was discharged for similar condition. Given Given methylpred 125 mg IV x2, Duoneb, Levofloxacin, Mg sulfate, Lasix 40 mg IV, Morphine 2 mg IV,m Levalbuterol 2.5 mg, nitroglycerin topical in ED. Repeat ABG pH 7.21 pCO2 89 po2 101 HCO3 35 Plan: - Continue BiPAP - Duonebs - Continuous pulse ox - Budesonide Rt 0.25 mg - discontinue lasix - discontinue solumedrol 40mg IV q8hrs for AM 10/11 #UTI Hx multidrug resistant recurrent UTI A 1+ blood, +LE, 10 RBC, 55 WBC, 1+ bacteria. yeast. Plan: - Zosyn 2.5 mg IV q6h (renally dosed) - Pending blood and urine cx #HFpEF EF 65% #Pulmonary Arterial Hypertension Echocardiogram from 12/2024 showed EF 65%, trace mitral and tricuspid regurg, no wall motion abnormalities. However, she has chronic fluid retention for which she takes LASIX 20 mg daily. CXR showing vascular congestion and mild bilateral ankle blunting. BNP 810. CXR poor visualization, perihilar vascular congestion. Plan: - discontinue Lasix 40mg daily - Strict I+O - Daily weight #STEVE Most likely prerenal i/s/o AHRF and HFpEF BUN 36, Cr 1.3, BUN/Cr 28, eGFR 39 Plan: - Management of AHRF and HFpEF as above - CTM with daily BMP #Hypothyroidism TSH WNL Plan: - Levothyroxine 100 mcg PO daily #Insulin-dependent T2DM Last A1c of 7.9 Plan: - SSI - Pending A1C #Hypertension Chronic Plan: - Metoprolol succinate XL 25 mg PO daily #Esophageal stenosis s/p dilation #Chronic constipation s/p EGD with dilation for dysphagia secondary to esophageal stenosis Plan: - Dysphagia III diet #Depression Chronic Plan: - Venlafaxine 150 mg ER PO daily (home med) #GERD Chronic Plan: -Pantoprazole 40 mg PO daily (home med omeprazole not on formulary) #HLD Plan: - Rosuvastatin 5 mg PO QHS (home med)- held - Aspirin 81 mg PO daily (home med) - continuing - Atorvastatin 10mg PO QD #Chronic back pain Plan: - [place] 10-325 mg PO TID PRN (home med) #Hyperkalemia - resolved Dispo: Admit to tele for AHRF Diet: Carb consistent, dysphagia 3 Bowel Reg: doc-senna daily cortez VTE ppx: heparin subQ GI ppx: Pantoprazole 40 mg PO daily Pain mgmt: Tylenol, [place] 10-325 (home med) Code status: DNR Case was discussed with Attending Dr. Warren, and Senior Resident Dr. Zay Casey MD PGY-1
[2025-05-28 12:41] LABS: Basophils # (Auto) 0.0 Thou/mm3 (0.0-0.2); Basophils % (Auto) 0 % (0-2.5); Eosinophils # (Auto) 0.0 Thou/mm3 (0.0-0.5); Eosinophils % (Auto) 0 % (0-10); Hematocrit 32.0 % (36.0-46.0); Hemoglobin 9.2 g/dL (12.0-16.0); Immature Granulocytes Auto 0.21 Thou/mm3 (0.00-0.00); Lymphocytes # (Auto) 0.4 Thou/mm3 (1.0-4.8); Lymphocytes % (Auto) 3 % (10-50); Mean Corpuscular HGB Conc 28.8 g/dl (31.0-37.0); Mean Corpuscular Hemoglobin 28.2 pg (25.0-35.0); Mean Corpuscular Volume 98 fL (80-100); Monocytes # (Auto) 0.5 Thou/mm3 (0.0-0.8); Monocytes % (Auto) 4 % (0-12); Neutrophils # (Auto) 10.3 Thou/mm3 (1.8-7.7); Neutrophils % (Auto) 90 % (37-80); Nucleated Red Blood Cell # 0.05 Thou/mm3 (0.00-0.00); Nucleated Red Blood Cell % 0 /100 WBC (0); Platelet Count 255 Thou/mm3 (140-440); RDW Standard Deviation 58.4 fL (36.4-46.3); Red Blood Count 3.26 Miln/mm3 (4.00-5.20); White Blood Count 11.4 Thou/mm3 (3.6-11.0)
[2025-05-28 13:03] LABS: Alanine Aminotransferase 40 U/L (10-49); Albumin, Serum 3.9 gm/dL (3.4-4.8); Albumin/Globulin Ratio 1.5 (1.2-2.2); Alkaline Phosphatase 55 U/L (46-116); Anion Gap 7 (7-16); Aspartate Amino Transferase 24 U/L (0-34); BUN/Creatinine Ratio 29 Ratio (12-20); Bilirubin,Total 0.3 mg/dL (0.3-1.2); Blood Urea Nitrogen 40 mg/dL (9-23); Calcium 9.7 mg/dL (8.3-10.6); Calcium (Corrected) 9.8 mg/dL (8.5-10.1); Carbon Dioxide 38.6 mMol/L (20.0-31.0); Chloride 94 mMol/L (98-107); Creatinine (Component) 1.4 mg/dL (0.6-1.3); Estimated Creatinine Clearance 33.4 mL/min (>60); Globulin 2.6 gm/dL (2.3-3.5); Glucose 319 mg/dL (74-106); Osmolality,Calculated 301 (275-295); Potassium 4.5 mMol/L (3.4-5.1); Sodium 140 mMol/L (136-145); Total Protein 6.5 gm/dL (5.7-8.2); eGFR 36 See Note
[2025-05-28 13:16] LABS: Base Excess 15 (-3-3); HCO3 43 mEq/L (20-26); Inspired Oxygen, FIO2 3 %; O2 Saturation 62 % (91-98); PCO2 81 mmHg (32.0-48.0); pH, Arterial 7.34 (7.35-7.45)
[2025-05-28 13:17] LABS: Allen Test Performed/OK; Puncture Site Left Radial
[2025-05-28 13:19] LABS: PO2 37 mmHg (83-108)
[2025-05-28 15:22] LABS: Base Excess, Venous 16 (-3-3); O2 Saturation, Venous 96 % (96-97); PCO2, Venous 47 mmHg (36-56); PO2, Venous 124 mmHg (15-58); pH, Venous 7.55 (7.33-7.66)
[2025-05-28] MEDS: PRAMIPEXOLE 0.25 MG TABLET 0.5 MG PO (21:44)
[2025-05-29] VITALS (15 sets, daily range): BP systolic 119–166; BP diastolic 66–97; PULSE 78–106; RESP 15–26; TEMP 36–36.8; O2SAT 92–99; BMI 36.1
[2025-05-29] MEDS: ALBUTEROL/IPRATROPIUM (Duoneb) RT SOL 3 ML NEBU INH ×6 (02:43→22:11)
[2025-05-29] MEDS: HEPARIN SOD INJ 5000 UNIT/ML VIAL SC ×3 (05:23→21:15)
[2025-05-29] MEDS: LEVOTHYROXINE SODIUM 100 MCG TABLET PO (05:23)
[2025-05-29 06:06] LABS: Basophils # (Auto) 0.1 Thou/mm3 (0.0-0.2); Basophils % (Auto) 1 % (0-2.5); Eosinophils # (Auto) 0.0 Thou/mm3 (0.0-0.5); Eosinophils % (Auto) 0 % (0-10); Hematocrit 33.6 % (36.0-46.0); Hemoglobin 9.5 g/dL (12.0-16.0); Immature Granulocytes Auto 0.22 Thou/mm3 (0.00-0.00); Lymphocytes # (Auto) 0.5 Thou/mm3 (1.0-4.8); Lymphocytes % (Auto) 5 % (10-50); Mean Corpuscular HGB Conc 28.3 g/dl (31.0-37.0); Mean Corpuscular Hemoglobin 27.9 pg (25.0-35.0); Mean Corpuscular Volume 99 fL (80-100); Monocytes # (Auto) 0.4 Thou/mm3 (0.0-0.8); Monocytes % (Auto) 4 % (0-12); Neutrophils # (Auto) 9.1 Thou/mm3 (1.8-7.7); Neutrophils % (Auto) 89 % (37-80); Nucleated Red Blood Cell # 0.04 Thou/mm3 (0.00-0.00); Nucleated Red Blood Cell % 0 /100 WBC (0); Platelet Count 273 Thou/mm3 (140-440); RDW Standard Deviation 58.7 fL (36.4-46.3); Red Blood Count 3.40 Miln/mm3 (4.00-5.20); White Blood Count 10.3 Thou/mm3 (3.6-11.0)
[2025-05-29 06:45] LABS: Alanine Aminotransferase 53 U/L (10-49); Albumin, Serum 3.8 gm/dL (3.4-4.8); Albumin/Globulin Ratio 1.7 (1.2-2.2); Alkaline Phosphatase 49 U/L (46-116); Anion Gap 8 (7-16); Aspartate Amino Transferase 32 U/L (0-34); BUN/Creatinine Ratio 31 Ratio (12-20); Bilirubin,Total 0.4 mg/dL (0.3-1.2); Blood Urea Nitrogen 37 mg/dL (9-23); Calcium 9.8 mg/dL (8.3-10.6); Calcium (Corrected) 10.0 mg/dL (8.5-10.1); Carbon Dioxide > 40.0 mMol/L (20.0-31.0); Chloride 96 mMol/L (98-107); Creatinine (Component) 1.2 mg/dL (0.6-1.3); Estimated Creatinine Clearance 39.5 mL/min (>60); Globulin 2.2 gm/dL (2.3-3.5); Glucose 234 mg/dL (74-106); Magnesium 2.3 mg/dL (1.6-2.6); Osmolality,Calculated 303 (275-295); Phosphorous 3.6 mg/dL (2.4-5.1); Potassium 4.8 mMol/L (3.4-5.1); Sodium 144 mMol/L (136-145); Total Protein 6.0 gm/dL (5.7-8.2); eGFR 43 See Note
[2025-05-29] MEDS: BUDESONIDE RT 0.25 MG/2 ML NEBU INH ×2 (07:31→18:15)
[2025-05-29] MEDS: INSULIN LISPRO (AdmeLOG) 1 UNIT/0.01 ML UNIT 3 UNIT SC ×4 (08:11→20:20)
[2025-05-29] MEDS: INSULIN LISPRO (AdmeLOG) 1 UNIT/0.01 ML UNIT SC ×4 (08:12→20:20)
[2025-05-29 08:19] LABS: Basophils # (Auto) 0.1 Thou/mm3 (0.0-0.2); Basophils % (Auto) 1 % (0-2.5); Eosinophils # (Auto) 0.0 Thou/mm3 (0.0-0.5); Eosinophils % (Auto) 0 % (0-10); Hematocrit 32.7 % (36.0-46.0); Hemoglobin 9.4 g/dL (12.0-16.0); Immature Granulocytes Auto 0.23 Thou/mm3 (0.00-0.00); Lymphocytes # (Auto) 0.5 Thou/mm3 (1.0-4.8); Lymphocytes % (Auto) 5 % (10-50); Mean Corpuscular HGB Conc 28.7 g/dl (31.0-37.0); Mean Corpuscular Hemoglobin 28.1 pg (25.0-35.0); Mean Corpuscular Volume 98 fL (80-100); Monocytes # (Auto) 0.5 Thou/mm3 (0.0-0.8); Monocytes % (Auto) 4 % (0-12); Neutrophils # (Auto) 9.0 Thou/mm3 (1.8-7.7); Neutrophils % (Auto) 88 % (37-80); Nucleated Red Blood Cell # 0.03 Thou/mm3 (0.00-0.00); Nucleated Red Blood Cell % 0 /100 WBC (0); Platelet Count 224 Thou/mm3 (140-440); RDW Standard Deviation 58.4 fL (36.4-46.3); Red Blood Count 3.34 Miln/mm3 (4.00-5.20); White Blood Count 10.3 Thou/mm3 (3.6-11.0)
[2025-05-29] MEDS: ASPIRIN EC 81 MG TABEC PO (08:32)
[2025-05-29] MEDS: VENLAFAXINE XR 37.5 MG CAPCR 150 MG PO (08:32)
[2025-05-29] MEDS: PIPER/TAZO 3.375 GM PREMIX 3.375 G/50 ML BAG IV ×2 (08:32→20:04)
[2025-05-29] MEDS: PANTOPRAZOLE 40 MG TABLET PO (08:33)
[2025-05-29] MEDS: SENNA/DOCUSATE SOD 1 TAB TABLET PO (08:33)
[2025-05-29] MEDS: ATORVASTATIN CALCIUM 10 MG TABLET PO (08:33)
[2025-05-29] MEDS: METOPROLOL SUCCINATE XL 25 MG TABCR PO (08:33)
[2025-05-29] MEDS: INSULIN DEGLUDEC 5 UNIT/0.05 ML (PER 5 UNITS) 15 UNIT SC (09:29)
--- NOTE | 2025-05-29 09:57 | ESPR_ITS ---
<Statement entered by John Paul Warren MD - 06/10/25 17:17> I reviewed above note and agree with findings and plans. I have also personally examined the patient with medicine team and went over assessment and plan with medical team including internet systems administrator and resident physician. <Statement entered by Jim Gomez MD - 05/30/25 05:50> I saw and examined patient personally and supervised PGY 1 resident, Dr. Casey with formulating a management plan. I agree with the documentation with the exceptions as listed below. Patient's acute on chronic respiratory failure with hypoxia has now resolved on she is back to her baseline on 3L O2 via nasal cannula. Discharge was anticipated today, however blood cultures grew GPC and GNR preliminary. Repeat blood cultures were ordered. Currently on Zosyn IV for bacteremia and UTI. Plan of care discussed with Attending Dr. Kelvin Gomez MD PGY 2 Disclaimer: This note was dictated by speech recognition. Minor errors in oyster fisherman may be present due to voice recognition software. Documentation for date of: 05/29/25 Subjective Subjective Interval history: Patient examined bedside, labs reviewed. AOx3 patient still is waxing and waning with her mentation. She has no complaints and is not concerned with her episodes of confusion. 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 Exam Vital Signs Temp Pulse Resp BP Pulse Ox O2 Del Method O2 Flow Rate 96.8 F 89 15 138/86 H 97 Nasal Cannula 3 05/29/25 08:00 05/29/25 08:33 05/29/25 08:00 05/29/25 08:33 05/29/25 08:00 05/29/25 08:00 05/29/25 08:00 FiO2 40 05/29/25 02:43 Narrative Exam General: Lying in bed, no acute distress. hand twitching, able to follow some commands, easily distractable. Eye: PERRL, EOMI, normal conjunctiva, no scleral icterus HENT: Normocephalic, atraumatic Neck: Supple, non-tender Lungs: dry cough on exam, very poor inspiratory effort, minimal lung sounds auscultated. Heart: Normal S1 and S2, no S3 or S4 appreciated. Abdomen: Soft, non-tender, non-distended, normal bowel sounds. Musculoskeletal: Unable to assess as patient was minimally responsive. Trace pretibial edema Skin: Skin is warm, dry, no rashes or lesions. Neurologic: Alert, awake, unable to assess orientation. No focal neuro deficits. Objective Labs 05/29/25 08:10 05/29/25 04:25 Labs: Laboratory Results - last 24 hr 05/28/25 05/28/25 05/28/25 11:58 13:09 14:55 WBC 11.4 H RBC 3.26 L Hgb 9.2 L Hct 32.0 L MCV 98 MCH 28.2 MCHC 28.8 L RDW Std Deviation 58.4 H Plt Count 255 Neut % (Auto) 90 H Lymph % (Auto) 3 L [place] % (Auto) 4 Eos % (Auto) 0 Baso % (Auto) 0 Neut # (Auto) 10.3 H Lymph # (Auto) 0.4 L [place] # (Auto) 0.5 Eos # (Auto) 0.0 Baso # (Auto) 0.0 Immature Gran # (Auto) 0.21 H Absolute Nucleated RBC 0.05 H Immature Gran % 2 H Nucleated RBC % 0 Puncture Site Left Radial ABG pH 7.34 L D ABG pCO2 81 H* D ABG pO2 37 L* D ABG HCO3 43 H ABG O2 Saturation 62 L ABG Base Excess 15 H VBG pH 7.55 VBG pCO2 47 VBG pO2 124 H VBG O2 Sat (Radha) 96 VBG Base Excess 16 H FiO2 3 Sodium 140 Potassium 4.5 Chloride 94 L Carbon Dioxide 38.6 H Anion Gap 7 BUN 40 H Creatinine 1.4 H Estim Creat Clear Calc 33.4 L eGFR 36 L BUN/Creatinine Ratio 29 H Glucose 319 H Calculated Osmolality 301 H Lactic Acid 1.9 Calcium 9.7 Corrected Calcium 9.8 Phosphorus Magnesium Total Bilirubin 0.3 AST 24 ALT 40 Alkaline Phosphatase 55 Total Protein 6.5 Albumin 3.9 Globulin 2.6 Albumin/Globulin Ratio 1.5 05/29/25 05/29/25 04:25 08:10 WBC 10.3 10.3 RBC 3.40 L 3.34 L Hgb 9.5 L 9.4 L Hct 33.6 L 32.7 L MCV 99 98 MCH 27.9 28.1 MCHC 28.3 L 28.7 L RDW Std Deviation 58.7 H 58.4 H Plt Count 273 224 D Neut % (Auto) 89 H 88 H Lymph % (Auto) 5 L 5 L [place] % (Auto) 4 4 Eos % (Auto) 0 0 Baso % (Auto) 1 1 Neut # (Auto) 9.1 H 9.0 H Lymph # (Auto) 0.5 L 0.5 L [place] # (Auto) 0.4 0.5 Eos # (Auto) 0.0 0.0 Baso # (Auto) 0.1 0.1 Immature Gran # (Auto) 0.22 H 0.23 H Absolute Nucleated RBC 0.04 H 0.03 H Immature Gran % 2 H 2 H Nucleated RBC % 0 0 Puncture Site ABG pH ABG pCO2 ABG pO2 ABG HCO3 ABG O2 Saturation ABG Base Excess VBG pH VBG pCO2 VBG pO2 VBG O2 Sat (Radha) VBG Base Excess FiO2 Sodium 144 Potassium 4.8 Chloride 96 L Carbon Dioxide > 40.0 H Anion Gap 8 BUN 37 H Creatinine 1.2 Estim Creat Clear Calc 39.5 L eGFR 43 L BUN/Creatinine Ratio 31 H Glucose 234 H D Calculated Osmolality 303 H Lactic Acid Calcium 9.8 Corrected Calcium 10.0 Phosphorus 3.6 Magnesium 2.3 Total Bilirubin 0.4 AST 32 ALT 53 H Alkaline Phosphatase 49 Total Protein 6.0 Albumin 3.8 Globulin 2.2 L Albumin/Globulin Ratio 1.7 ABG Interpretation ABG results: 05/26/25 05/26/25 05/27/25 01:55 09:34 09:47 ABG pH 7.21 L 7.21 L 7.44 D ABG pCO2 91 H* 89 H* 39 D ABG pO2 108 101 109 H ABG HCO3 36 H 35 H 26 ABG O2 Saturation 95 94 99 H ABG Base Excess 6 H 5 H 2 VBG pH VBG pCO2 VBG pO2 VBG Base Excess 05/28/25 05/28/25 13:09 14:55 ABG pH 7.34 L D ABG pCO2 81 H* D ABG pO2 37 L* D ABG HCO3 43 H ABG O2 Saturation 62 L ABG Base Excess 15 H VBG pH 7.55 VBG pCO2 47 VBG pO2 124 H VBG Base Excess 16 H Quality Measures Quality Measures none Advance care planning discussed with:: other Assessment & Plan Assessment Current Active Medications: Generic Name Dose Route Start Last Admin Trade Name Vy PRN Reason Stop Dose Admin Acetaminophen 650 mg 05/26/25 02:40 Acetaminophen 325 Mg Tablet PO 06/25/25 02:39 Q6H PRN Fever >101.5 Acetaminophen 650 mg 05/26/25 02:40 Acetaminophen 325 Mg Tablet PO 06/25/25 02:39 Q6H PRN PAIN SCALE 1-3 (mild Hydrocodone Bitart/Acetaminophen 1 tab 05/26/25 03:37 Hydrocodone/Apap 10/325 Tab PO 05/31/25 03:36 Q8HR PRN Pain 4-7 Albuterol/Ipratropium 3 ml 05/26/25 11:00 05/29/25 07:31 Albuterol/Ipratropium (Duoneb) Rt Sravani 3 Ml Nebu INH 06/25/25 10:59 3 ml Q4HRRT CORTEZ Administration Aspirin 81 mg 05/26/25 09:00 05/29/25 08:32 Aspirin Ec 81 Mg Tabec PO 06/25/25 08:59 81 mg QDAY CORTEZ Administration Atorvastatin Calcium 10 mg 05/26/25 09:00 05/29/25 08:33 Atorvastatin Calcium 10 Mg Tablet PO 06/25/25 08:59 10 mg DAILY CORTEZ Administration Budesonide 0.25 mg 05/26/25 09:30 05/29/25 07:31 Budesonide Rt 0.25 Mg/2 Ml Nebu INH 06/25/25 09:29 0.25 mg BIDRT CORTEZ Administration Dextrose 25 ml 05/26/25 13:52 Dextrose 50%-Water Inj 50 Ml Syringe IV 06/25/25 13:51 Q15MIN PRN BG 50-70 responsive npo pt Dextrose 50 ml 05/26/25 13:52 Dextrose 50%-Water Inj 50 Ml Syringe IV 06/25/25 13:51 Q15MIN PRN BG <50 OR BG <70 & pt unresponsive Glucagon 1 mg 05/26/25 13:52 Glucagon Inj 1 Mg Vial IM Q15MIN PRN BG <70, and no IV access Heparin Sodium (Porcine) 5,000 unit 05/26/25 06:00 05/29/25 05:23 Heparin Sod Inj 5000 Unit/Ml Vial SC 06/09/25 05:59 5,000 unit Q8HR CORTEZ Administration Piperacillin/Tazobactam/Dextrose 3.375 g in 50 mls @ 100 mls/hr 05/27/25 21:00 05/29/25 08:32 Zosyn IV 06/03/25 20:59 100 mls/hr Q12HR CORTEZ Administration Protocol Insulin Degludec 15 unit 05/27/25 09:00 05/29/25 09:29 Insulin Degludec 5 Unit/0.05 Ml (Per 5 Units) SC 06/26/25 08:59 15 unit QDAY CORTEZ Administration Insulin Human Lispro 0 unit 05/26/25 17:00 05/29/25 08:12 Insulin Lispro (Admelog) 1 Unit/0.01 Ml Unit SC 06/25/25 16:59 5 unit ACHS CORTEZ Administration Protocol Insulin Human Lispro 3 unit 05/26/25 17:00 05/29/25 08:11 Insulin Lispro (Admelog) 1 Unit/0.01 Ml Unit SC 06/25/25 16:59 3 unit ACHS CORTEZ Administration Levothyroxine Sodium 100 mcg 05/26/25 06:00 05/29/25 05:23 Levothyroxine Sodium 100 Mcg Tablet PO 06/25/25 05:59 100 mcg ACBR CORTEZ Administration Methylprednisolone Sodium Succinate 40 mg 05/26/25 10:00 05/29/25 05:24 Methylprednisolone Sod Succ 40 Mg/Ml Vial IVP 06/02/25 09:59 40 mg Q8HR CORTEZ Administration Metoprolol Succinate 25 mg 05/26/25 09:00 05/29/25 08:33 Metoprolol Succinate Xl 25 Mg Tabcr PO 06/25/25 08:59 25 mg QDAY CORTEZ Administration Ondansetron HCl 4 mg 05/26/25 02:40 Ondansetron Inj 2 Mg/Ml Inj 2 Ml IVP 06/25/25 02:39 Q6H PRN NAUSEA OR VOMITING Protocol Pantoprazole Sodium 40 mg 05/26/25 09:00 05/29/25 08:33 Pantoprazole 40 Mg Tablet PO 06/25/25 08:59 40 mg QDAY CORTEZ Administration Pharmacy Consult 1 each 05/26/25 16:42 Pharmacy Renal Dose Adjustment 1 Ea XX 06/25/25 16:41 PRN PRN CONSULT Pramipexole Dihydrochloride 0.5 mg 05/26/25 21:00 05/28/25 21:44 Pramipexole 0.25 Mg Tablet PO 06/25/25 20:59 0.5 mg HS CORTEZ Administration Sennosides 1 tab 05/26/25 09:00 05/29/25 08:33 Senna/Docusate Sod 1 Tab Tablet PO 06/25/25 08:59 1 tab QDAY CORTEZ Administration Protocol Sodium Chloride 6 ml 05/26/25 02:13 05/26/25 02:37 Sodium Chloride Rt Sravani 0.9% 3 Ml Nebu INH 06/25/25 02:12 6 ml PRN PRN Administration SOLN Venlafaxine HCl 150 mg 05/26/25 09:00 05/29/25 08:32 Venlafaxine Xr 37.5 Mg Capcr PO 06/25/25 08:59 150 mg QDAY CORTEZ Administration Plan Ms. Coffman is an 89 y/o female with PMHx of ILD/pulmonary fibrosis, chronic respiratory failure on 2 L home oxygen and BiPAP, HFpEF, bedbound, recurrent MDR UTI, hypothyroidism, right breast cancer s/p lumpectomy, T2DM, GERD, depression, chronic back pain, known for recurrent admission for hypoxic hypercapnic respiratory failure presenting to the ED with hypoxia and urinary retention. Admitted for AHRF and MDR UTI. Patient is on hospice, needs goals of care. #Polymicrobial Bacteremia Blood cultures showed GNR and GPC possibly contaminant. 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 Will continue zosyn. Plan: -Repeat Blood cultures #Acute on chronic hypoxic hypercapnic respiratory failure #Pulmonary fibrosis #ILD flare with possible superimposed bacterial infection Chronic ILD/pulmonary fibrosis leading to chronic respiratory failure, chronic CO2 retention, requiring daily BiPAP and home oxygen. She has recurrent admission AMS 2/2 hypercapnic respiratory failure as a result. Prognosis remains poo given intensity of symptoms, xrays and will disclose with family regarding comfort measures, likely will continue to worsen with time. Recently was discharged for similar condition. Given Given methylpred 125 mg IV x2, Duoneb, Levofloxacin, Mg sulfate, Lasix 40 mg IV, Morphine 2 mg IV,m Levalbuterol 2.5 mg, nitroglycerin topical in ED. Repeat ABG pH 7.21 pCO2 89 po2 101 HCO3 35 Plan: - Continue BiPAP - Duonebs - Continuous pulse ox - Budesonide Rt 0.25 mg - discontinue lasix - discontinue solumedrol 40mg IV q8hrs for AM 05/28 #UTI Hx multidrug resistant recurrent UTI A 1+ blood, +LE, 10 RBC, 55 WBC, 1+ bacteria. yeast. Plan: - Zosyn 2.5 mg IV q6h (renally dosed) - Urine Cx: pseudonomas (sensitive to cefepime, ceftazidine, zosyn). #HFpEF EF 65% #Pulmonary Arterial Hypertension Echocardiogram from 12/2024 showed EF 65%, trace mitral and tricuspid regurg, no wall motion abnormalities. However, she has chronic fluid retention for which she takes LASIX 20 mg daily. CXR showing vascular congestion and mild bilateral ankle blunting. BNP 810. CXR poor visualization, perihilar vascular congestion. Plan: - discontinue Lasix 40mg daily - Strict I+O - Daily weight #STEVE Most likely prerenal i/s/o AHRF and HFpEF BUN 36, Cr 1.3, BUN/Cr 28, eGFR 39 Plan: - Management of AHRF and HFpEF as above - CTM with daily BMP #Hypothyroidism TSH WNL Plan: - Levothyroxine 100 mcg PO daily #Insulin-dependent T2DM Last A1c of 7.9 Plan: - SSI - Pending A1C #Hypertension Chronic Plan: - Metoprolol succinate XL 25 mg PO daily #Esophageal stenosis s/p dilation #Chronic constipation s/p EGD with dilation for dysphagia secondary to esophageal stenosis Plan: - Dysphagia III diet #Depression Chronic Plan: - Venlafaxine 150 mg ER PO daily (home med) #GERD Chronic Plan: -Pantoprazole 40 mg PO daily (home med omeprazole not on formulary) #HLD Plan: - Rosuvastatin 5 mg PO QHS (home med)- held - Aspirin 81 mg PO daily (home med) - continuing - Atorvastatin 10mg PO QD #Chronic back pain Plan: - [place] 10-325 mg PO TID PRN (home med) #Hyperkalemia - resolved Dispo: Admit to tele for AHRF Diet: Carb consistent, dysphagia 3 Bowel Reg: doc-senna daily cortez VTE ppx: heparin subQ GI ppx: Pantoprazole 40 mg PO daily Pain mgmt: Tylenol, [place] 10-325 (home med) Code status: DNR Case was discussed with Attending Dr. Warren, and Senior Resident Dr. Zay Casey MD PGY-1
[2025-05-29] MEDS: PRAMIPEXOLE 0.25 MG TABLET 0.5 MG PO (20:03)
[2025-05-29] MEDS: INSULIN LISPRO (AdmeLOG) 1 UNIT/0.01 ML UNIT 6 UNIT SC (20:22)
[2025-05-30] VITALS (16 sets, daily range): BP systolic 125–143; BP diastolic 71–82; PULSE 79–101; RESP 12–25; TEMP 36.2–36.7; O2SAT 92–100; BMI 35.7; BMI 35.8
[2025-05-30] MEDS: ALBUTEROL/IPRATROPIUM (Duoneb) RT SOL 3 ML NEBU INH ×6 (02:36→22:05)
[2025-05-30] MEDS: HEPARIN SOD INJ 5000 UNIT/ML VIAL SC ×3 (05:14→21:32)
[2025-05-30] MEDS: LEVOTHYROXINE SODIUM 100 MCG TABLET PO (05:14)
[2025-05-30] MEDS: BUDESONIDE RT 0.25 MG/2 ML NEBU INH ×2 (07:26→19:05)
[2025-05-30 08:38] LABS: Basophils # (Auto) 0.0 Thou/mm3 (0.0-0.2); Basophils % (Auto) 0 % (0-2.5); Eosinophils # (Auto) 0.0 Thou/mm3 (0.0-0.5); Eosinophils % (Auto) 0 % (0-10); Hematocrit 34.9 % (36.0-46.0); Hemoglobin 10.0 g/dL (12.0-16.0); Immature Granulocytes Auto 0.27 Thou/mm3 (0.00-0.00); Lymphocytes # (Auto) 0.5 Thou/mm3 (1.0-4.8); Lymphocytes % (Auto) 5 % (10-50); Mean Corpuscular HGB Conc 28.7 g/dl (31.0-37.0); Mean Corpuscular Hemoglobin 28.2 pg (25.0-35.0); Mean Corpuscular Volume 98 fL (80-100); Monocytes # (Auto) 0.5 Thou/mm3 (0.0-0.8); Monocytes % (Auto) 5 % (0-12); Neutrophils # (Auto) 9.8 Thou/mm3 (1.8-7.7); Neutrophils % (Auto) 88 % (37-80); Nucleated Red Blood Cell # 0.02 Thou/mm3 (0.00-0.00); Nucleated Red Blood Cell % 0 /100 WBC (0); Platelet Count 247 Thou/mm3 (140-440); RDW Standard Deviation 55.6 fL (36.4-46.3); Red Blood Count 3.55 Miln/mm3 (4.00-5.20); White Blood Count 11.1 Thou/mm3 (3.6-11.0)
[2025-05-30 08:58] LABS: Alanine Aminotransferase 62 U/L (10-49); Albumin, Serum 4.1 gm/dL (3.4-4.8); Albumin/Globulin Ratio 1.7 (1.2-2.2); Alkaline Phosphatase 51 U/L (46-116); Anion Gap 6 (7-16); Aspartate Amino Transferase 24 U/L (0-34); BUN/Creatinine Ratio 22 Ratio (12-20); Bilirubin,Total 0.4 mg/dL (0.3-1.2); Blood Urea Nitrogen 24 mg/dL (9-23); Calcium 10.5 mg/dL (8.3-10.6); Calcium (Corrected) 10.5 mg/dL (8.5-10.1); Carbon Dioxide 39.4 mMol/L (20.0-31.0); Chloride 96 mMol/L (98-107); Creatinine (Component) 1.1 mg/dL (0.6-1.3); Estimated Creatinine Clearance 42.9 mL/min (>60); Globulin 2.4 gm/dL (2.3-3.5); Glucose 267 mg/dL (74-106); Magnesium 2.1 mg/dL (1.6-2.6); Osmolality,Calculated 294 (275-295); Phosphorous 3.2 mg/dL (2.4-5.1); Potassium 5.3 mMol/L (3.4-5.1); Sodium 141 mMol/L (136-145); Total Protein 6.5 gm/dL (5.7-8.2); eGFR 48 See Note
[2025-05-30] MEDS: ATORVASTATIN CALCIUM 10 MG TABLET PO (09:00)
[2025-05-30] MEDS: PANTOPRAZOLE 40 MG TABLET PO (09:38)
[2025-05-30] MEDS: METOPROLOL SUCCINATE XL 25 MG TABCR PO (09:38)
[2025-05-30] MEDS: ASPIRIN EC 81 MG TABEC PO (09:38)
[2025-05-30] MEDS: SENNA/DOCUSATE SOD 1 TAB TABLET PO (09:38)
[2025-05-30] MEDS: VENLAFAXINE XR 37.5 MG CAPCR 150 MG PO (09:39)
[2025-05-30] MEDS: PIPER/TAZO 3.375 GM PREMIX 3.375 G/50 ML BAG IV ×2 (09:40→20:14)
[2025-05-30] MEDS: INSULIN DEGLUDEC 5 UNIT/0.05 ML (PER 5 UNITS) 15 UNIT SC (09:40)
[2025-05-30] MEDS: INSULIN LISPRO (AdmeLOG) 1 UNIT/0.01 ML UNIT SC ×4 (09:41→20:15)
[2025-05-30] MEDS: INSULIN LISPRO (AdmeLOG) 1 UNIT/0.01 ML UNIT 3 UNIT SC ×4 (09:42→20:16)
--- NOTE | 2025-05-30 13:48 | ESPR_ITS ---
<Statement entered by Jim Gomez MD - 05/31/25 05:52> I saw and examined patient personally and supervised PGY 1 resident, Dr. Casey with formulating a management plan. I agree with the documentation with the exceptions as listed below. Patient's acute on chronic respiratory failure with hypoxia and hypercapnia is improving. She was saturating 96% on 2L O2 via nasal cannula. Currently on methylprednisone 40 mg IV every 8 hourly. Pending speciation of blood culture. Plan of care discussed with Attending Dr. Butch Gomez MD PGY 2 Disclaimer: This note was dictated by speech recognition. Minor errors in resource room teacher may be present due to voice recognition software. Documentation for date of: 05/30/25 Subjective Subjective Interval history: Patient examined bedside, labs reviewed. AOx3 patient still is waxing and waning with her mentation. She has no complaints and is not concerned with her episodes of confusion. Awaiting blood cx redraw results Exam Vital Signs Temp Pulse Resp BP Pulse Ox O2 Del Method O2 Flow Rate 97.1 F 94 17 139/82 H 93 L Nasal Cannula 2 05/30/25 11:45 05/30/25 11:45 05/30/25 11:45 05/30/25 11:45 05/30/25 11:45 05/30/25 11:45 05/30/25 11:45 FiO2 3 05/30/25 10:50 Narrative Exam General: Lying in bed, no acute distress. hand twitching, able to follow some commands, easily distractable. Eye: PERRL, EOMI, normal conjunctiva, no scleral icterus HENT: Normocephalic, atraumatic Neck: Supple, non-tender Lungs: dry cough on exam, very poor inspiratory effort, minimal lung sounds auscultated. Heart: Normal S1 and S2, no S3 or S4 appreciated. Abdomen: Soft, non-tender, non-distended, normal bowel sounds. Musculoskeletal: Unable to assess as patient was minimally responsive. Trace pretibial edema Skin: Skin is warm, dry, no rashes or lesions. Neurologic: Alert, awake, unable to assess orientation. No focal neuro deficits. Objective Labs 05/30/25 07:53 05/30/25 07:53 Labs: Laboratory Results - last 24 hr 05/30/25 07:53 WBC 11.1 H RBC 3.55 L Hgb 10.0 L Hct 34.9 L MCV 98 MCH 28.2 MCHC 28.7 L RDW Std Deviation 55.6 H Plt Count 247 Neut % (Auto) 88 H Lymph % (Auto) 5 L [place] % (Auto) 5 Eos % (Auto) 0 Baso % (Auto) 0 Neut # (Auto) 9.8 H Lymph # (Auto) 0.5 L [place] # (Auto) 0.5 Eos # (Auto) 0.0 Baso # (Auto) 0.0 Immature Gran # (Auto) 0.27 H Absolute Nucleated RBC 0.02 H Immature Gran % 2 H Nucleated RBC % 0 Sodium 141 Potassium 5.3 H D Chloride 96 L Carbon Dioxide 39.4 H Anion Gap 6 L BUN 24 H Creatinine 1.1 Estim Creat Clear Calc 42.9 L eGFR 48 L BUN/Creatinine Ratio 22 H Glucose 267 H Calculated Osmolality 294 Calcium 10.5 Corrected Calcium 10.5 H Phosphorus 3.2 Magnesium 2.1 Total Bilirubin 0.4 AST 24 ALT 62 H Alkaline Phosphatase 51 Total Protein 6.5 Albumin 4.1 Globulin 2.4 Albumin/Globulin Ratio 1.7 ABG Interpretation ABG results: 05/26/25 05/26/25 05/27/25 01:55 09:34 09:47 ABG pH 7.21 L 7.21 L 7.44 D ABG pCO2 91 H* 89 H* 39 D ABG pO2 108 101 109 H ABG HCO3 36 H 35 H 26 ABG O2 Saturation 95 94 99 H ABG Base Excess 6 H 5 H 2 VBG pH VBG pCO2 VBG pO2 VBG Base Excess 05/28/25 05/28/25 13:09 14:55 ABG pH 7.34 L D ABG pCO2 81 H* D ABG pO2 37 L* D ABG HCO3 43 H ABG O2 Saturation 62 L ABG Base Excess 15 H VBG pH 7.55 VBG pCO2 47 VBG pO2 124 H VBG Base Excess 16 H Quality Measures Quality Measures none Advance care planning discussed with:: other Assessment & Plan Assessment Current Active Medications: Generic Name Dose Route Start Last Admin Trade Name Freq PRN Reason Stop Dose Admin Acetaminophen 650 mg 05/26/25 02:40 Acetaminophen 325 Mg Tablet PO 06/25/25 02:39 Q6H PRN Fever >101.5 Acetaminophen 650 mg 05/26/25 02:40 Acetaminophen 325 Mg Tablet PO 06/25/25 02:39 Q6H PRN PAIN SCALE 1-3 (mild Hydrocodone Bitart/Acetaminophen 1 tab 05/26/25 03:37 Hydrocodone/Apap 10/325 Tab PO 05/31/25 03:36 Q8HR PRN Pain 4-7 Albuterol/Ipratropium 3 ml 05/26/25 11:00 05/30/25 10:49 Albuterol/Ipratropium (Duoneb) Rt Sravani 3 Ml Nebu INH 06/25/25 10:59 3 ml Q4HRRT CORTEZ Administration Aspirin 81 mg 05/26/25 09:00 05/30/25 09:38 Aspirin Ec 81 Mg Tabec PO 06/25/25 08:59 81 mg QDAY CORTEZ Administration Atorvastatin Calcium 10 mg 05/26/25 09:00 05/30/25 09:00 Atorvastatin Calcium 10 Mg Tablet PO 06/25/25 08:59 10 mg DAILY CORTEZ Administration Budesonide 0.25 mg 05/26/25 09:30 05/30/25 07:26 Budesonide Rt 0.25 Mg/2 Ml Nebu INH 06/25/25 09:29 0.25 mg BIDRT CORTEZ Administration Dextrose 25 ml 05/26/25 13:52 Dextrose 50%-Water Inj 50 Ml Syringe IV 06/25/25 13:51 Q15MIN PRN BG 50-70 responsive npo pt Dextrose 50 ml 05/26/25 13:52 Dextrose 50%-Water Inj 50 Ml Syringe IV 06/25/25 13:51 Q15MIN PRN BG <50 OR BG <70 & pt unresponsive Glucagon 1 mg 05/26/25 13:52 Glucagon Inj 1 Mg Vial IM Q15MIN PRN BG <70, and no IV access Heparin Sodium (Porcine) 5,000 unit 05/26/25 06:00 05/30/25 05:14 Heparin Sod Inj 5000 Unit/Ml Vial SC 06/09/25 05:59 5,000 unit Q8HR CORTEZ Administration Piperacillin/Tazobactam/Dextrose 3.375 g in 50 mls @ 100 mls/hr 05/27/25 21:00 05/30/25 09:40 Zosyn IV 06/03/25 20:59 100 mls/hr Q12HR CORTEZ Administration Protocol Insulin Degludec 15 unit 05/27/25 09:00 05/30/25 09:40 Insulin Degludec 5 Unit/0.05 Ml (Per 5 Units) SC 06/26/25 08:59 15 unit QDAY CORTEZ Administration Insulin Human Lispro 0 unit 05/26/25 17:00 05/30/25 11:41 Insulin Lispro (Admelog) 1 Unit/0.01 Ml Unit SC 06/25/25 16:59 5 unit ACHS CORTEZ Administration Protocol Insulin Human Lispro 3 unit 05/26/25 17:00 05/30/25 11:42 Insulin Lispro (Admelog) 1 Unit/0.01 Ml Unit SC 06/25/25 16:59 3 unit ACHS CORTEZ Administration Levothyroxine Sodium 100 mcg 05/26/25 06:00 05/30/25 05:14 Levothyroxine Sodium 100 Mcg Tablet PO 06/25/25 05:59 100 mcg ACBR CORTEZ Administration Methylprednisolone Sodium Succinate 40 mg 05/26/25 10:00 05/30/25 05:14 Methylprednisolone Sod Succ 40 Mg/Ml Vial IVP 06/02/25 09:59 40 mg Q8HR CORTEZ Administration Metoprolol Succinate 25 mg 05/26/25 09:00 05/30/25 09:38 Metoprolol Succinate Xl 25 Mg Tabcr PO 06/25/25 08:59 25 mg QDAY CORTEZ Administration Ondansetron HCl 4 mg 05/26/25 02:40 Ondansetron Inj 2 Mg/Ml Inj 2 Ml IVP 06/25/25 02:39 Q6H PRN NAUSEA OR VOMITING Protocol Pantoprazole Sodium 40 mg 05/26/25 09:00 05/30/25 09:38 Pantoprazole 40 Mg Tablet PO 06/25/25 08:59 40 mg QDAY CORTEZ Administration Pharmacy Consult 1 each 05/26/25 16:42 Pharmacy Renal Dose Adjustment 1 Ea XX 06/25/25 16:41 PRN PRN CONSULT Pramipexole Dihydrochloride 0.5 mg 05/26/25 21:00 05/29/25 20:03 Pramipexole 0.25 Mg Tablet PO 06/25/25 20:59 0.5 mg HS CORTEZ Administration Sennosides 1 tab 05/26/25 09:00 05/30/25 09:38 Senna/Docusate Sod 1 Tab Tablet PO 06/25/25 08:59 1 tab QDAY CORTEZ Administration Protocol Sodium Chloride 6 ml 05/26/25 02:13 05/26/25 02:37 Sodium Chloride Rt Sravani 0.9% 3 Ml Nebu INH 06/25/25 02:12 6 ml PRN PRN Administration SOLN Venlafaxine HCl 150 mg 05/26/25 09:00 05/30/25 09:39 Venlafaxine Xr 37.5 Mg Capcr PO 06/25/25 08:59 150 mg QDAY CORTEZ Administration Plan Ms. Coffman is an 89 y/o female with PMHx of ILD/pulmonary fibrosis, chronic respiratory failure on 2 L home oxygen and BiPAP, HFpEF, bedbound, recurrent MDR UTI, hypothyroidism, right breast cancer s/p lumpectomy, T2DM, GERD, depression, chronic back pain, known for recurrent admission for hypoxic hypercapnic respiratory failure presenting to the ED with hypoxia and urinary retention. Admitted for AHRF and MDR UTI. Patient is on hospice, needs goals of care. Bladder training 05/30 passed discontinuing almodovar. #Polymicrobial Bacteremia Blood cultures showed GNR and GPC possibly contaminant. 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 Will continue zosyn. Plan: -Repeat Blood cultures #Acute on chronic hypoxic hypercapnic respiratory failure #Pulmonary fibrosis #ILD flare with possible superimposed bacterial infection Chronic ILD/pulmonary fibrosis leading to chronic respiratory failure, chronic CO2 retention, requiring daily BiPAP and home oxygen. She has recurrent admission AMS 2/2 hypercapnic respiratory failure as a result. Prognosis remains poor given intensity of symptoms, xrays and will disclose with family regarding comfort measures, likely will continue to worsen with time. Recently was discharged for similar condition. Given Given methylpred 125 mg IV x2, Duoneb, Levofloxacin, Mg sulfate, Lasix 40 mg IV, Morphine 2 mg IV,m Levalbuterol 2.5 mg, nitroglycerin topical in ED. Repeat ABG pH 7.21 pCO2 89 po2 101 HCO3 35 Plan: - Continue BiPAP - Duonebs - Continuous pulse ox - Budesonide Rt 0.25 mg - discontinue lasix - Continue solumedrol 40mg IV q8hrs #UTI Hx multidrug resistant recurrent UTI A 1+ blood, +LE, 10 RBC, 55 WBC, 1+ bacteria. yeast. Plan: - Zosyn 2.5 mg IV q6h (renally dosed) - Urine Cx: pseudonomas (sensitive to cefepime, ceftazidine, zosyn). #HFpEF EF 65% #Pulmonary Arterial Hypertension Echocardiogram from 12/2024 showed EF 65%, trace mitral and tricuspid regurg, no wall motion abnormalities. However, she has chronic fluid retention for which she takes LASIX 20 mg daily. CXR showing vascular congestion and mild bilateral ankle blunting. BNP 810. CXR poor visualization, perihilar vascular congestion. Plan: - discontinue Lasix 40mg daily - Strict I+O - Daily weight #STEVE Most likely prerenal i/s/o AHRF and HFpEF BUN 36, Cr 1.3, BUN/Cr 28, eGFR 39 Plan: - Management of AHRF and HFpEF as above - CTM with daily BMP #Hypothyroidism TSH WNL Plan: - Levothyroxine 100 mcg PO daily #Insulin-dependent T2DM Last A1c of 7.9 Plan: - SSI - Pending A1C #Hypertension Chronic Plan: - Metoprolol succinate XL 25 mg PO daily #Esophageal stenosis s/p dilation #Chronic constipation s/p EGD with dilation for dysphagia secondary to esophageal stenosis Plan: - Dysphagia III diet #Depression Chronic Plan: - Venlafaxine 150 mg ER PO daily (home med) #GERD Chronic Plan: -Pantoprazole 40 mg PO daily (home med omeprazole not on formulary) #HLD Plan: - Rosuvastatin 5 mg PO QHS (home med)- held - Aspirin 81 mg PO daily (home med) - continuing - Atorvastatin 10mg PO QD #Chronic back pain Plan: - [place] 10-325 mg PO TID PRN (home med) #Hyperkalemia - resolved Dispo: Admit to tele for AHRF Diet: Carb consistent, dysphagia 3 Bowel Reg: doc-senna daily cortez VTE ppx: heparin subQ GI ppx: Pantoprazole 40 mg PO daily Pain mgmt: Tylenol, [place] 10-325 (home med) Code status: DNR Case was discussed with Attending Dr. Rae, and Senior Resident Dr. Jason Casey MD PGY-1 Attending Provider Attestation/Addendum Patient was seen and examined during rounds with housestaff. She is alert. She is on nasal cannula oxygen. She uses BiPAP at night. The patient has chronic hypoxic and hypercarbic respiratory failure. She has underlying interstitial lung disease. She remained alert today. She has no paroxysmal cough no hemoptysis. She has minimal lower extremity edema. She is staying mostly in bed. Continue current medications. Discussed with housestaff
--- NOTE | 2025-05-30 15:28 | PC.SS ---
Rounding Note: Blood cultures negative. Patient receiving IV antibiotics. Possible d/c home tomorrow.
--- NOTE | 2025-05-30 17:42 | PC.NURSE ---
Removed almodovar at this time [id number]
[2025-05-30] MEDS: PRAMIPEXOLE 0.25 MG TABLET 0.5 MG PO (20:15)
[2025-05-31] VITALS (17 sets, daily range): BP systolic 125–162; BP diastolic 71–97; PULSE 70–100; RESP 12–29; TEMP 36.1–37.4; O2SAT 95–99; BMI 35.8
[2025-05-31] MEDS: ALBUTEROL/IPRATROPIUM (Duoneb) RT SOL 3 ML NEBU INH ×6 (02:22→22:46)
[2025-05-31] MEDS: LEVOTHYROXINE SODIUM 100 MCG TABLET PO (05:16)
[2025-05-31] MEDS: HEPARIN SOD INJ 5000 UNIT/ML VIAL SC ×3 (05:17→21:31)
[2025-05-31 05:20] LABS: Basophils # (Auto) 0.1 Thou/mm3 (0.0-0.2); Basophils % (Auto) 1 % (0-2.5); Eosinophils # (Auto) 0.0 Thou/mm3 (0.0-0.5); Eosinophils % (Auto) 0 % (0-10); Hematocrit 33.7 % (36.0-46.0); Hemoglobin 9.6 g/dL (12.0-16.0); Immature Granulocytes Auto 0.37 Thou/mm3 (0.00-0.00); Lymphocytes # (Auto) 0.5 Thou/mm3 (1.0-4.8); Lymphocytes % (Auto) 5 % (10-50); Mean Corpuscular HGB Conc 28.5 g/dl (31.0-37.0); Mean Corpuscular Hemoglobin 27.7 pg (25.0-35.0); Mean Corpuscular Volume 97 fL (80-100); Monocytes # (Auto) 0.5 Thou/mm3 (0.0-0.8); Monocytes % (Auto) 5 % (0-12); Neutrophils # (Auto) 8.6 Thou/mm3 (1.8-7.7); Neutrophils % (Auto) 87 % (37-80); Nucleated Red Blood Cell # 0.02 Thou/mm3 (0.00-0.00); Nucleated Red Blood Cell % 0 /100 WBC (0); Platelet Count 227 Thou/mm3 (140-440); RDW Standard Deviation 55.8 fL (36.4-46.3); Red Blood Count 3.46 Miln/mm3 (4.00-5.20); White Blood Count 9.9 Thou/mm3 (3.6-11.0)
[2025-05-31 06:00] LABS: Alanine Aminotransferase 45 U/L (10-49); Albumin, Serum 3.5 gm/dL (3.4-4.8); Albumin/Globulin Ratio 1.8 (1.2-2.2); Alkaline Phosphatase 52 U/L (46-116); Anion Gap 6 (7-16); Aspartate Amino Transferase 16 U/L (0-34); BUN/Creatinine Ratio 23 Ratio (12-20); Bilirubin,Total 0.4 mg/dL (0.3-1.2); Blood Urea Nitrogen 28 mg/dL (9-23); Calcium 9.8 mg/dL (8.3-10.6); Calcium (Corrected) 10.2 mg/dL (8.5-10.1); Carbon Dioxide > 40.0 mMol/L (20.0-31.0); Chloride 95 mMol/L (98-107); Creatinine (Component) 1.2 mg/dL (0.6-1.3); Estimated Creatinine Clearance 38.6 mL/min (>60); Globulin 2.0 gm/dL (2.3-3.5); Glucose 305 mg/dL (74-106); Magnesium 2.0 mg/dL (1.6-2.6); Osmolality,Calculated 297 (275-295); Phosphorous 3.0 mg/dL (2.4-5.1); Potassium 5.3 mMol/L (3.4-5.1); Sodium 141 mMol/L (136-145); Total Protein 5.5 gm/dL (5.7-8.2); eGFR 43 See Note
[2025-05-31] MEDS: BUDESONIDE RT 0.25 MG/2 ML NEBU INH ×2 (06:31→18:24)
[2025-05-31] MEDS: INSULIN LISPRO (AdmeLOG) 1 UNIT/0.01 ML UNIT SC ×4 (07:37→20:24)
[2025-05-31] MEDS: INSULIN LISPRO (AdmeLOG) 1 UNIT/0.01 ML UNIT 3 UNIT SC ×4 (07:37→20:25)
--- NOTE | 2025-05-31 07:57 | ESPR_ITS ---
<Statement entered by Jim Gomez MD - 05/31/25 19:13> I saw and examined patient personally and supervised PGY 1 resident, Dr. Casey with formulating a management plan. I agree with the documentation with the exceptions as listed below. Patient continues to be on 3L O2 via nasal cannula, however home oxygen requirements are 2L. We will also continue BiPAP at night. For her ILD flare she is on methylprednisone 40 mg IV every 8 hourly. Pulmonology, Dr. Jerez was consulted who recommended a longer prednisone taper upon discharge. He also recommended for her primary care doctor to consult with him before making any changes. Pending infectious disease, Dr Montero's recommendations regarding her bacteremia. Plan of care discussed with Attending Dr. Brayan Gomez MD PGY 2 Disclaimer: This note was dictated by speech recognition. Minor errors in seconds handler may be present due to voice recognition software. Documentation for date of: 05/31/25 Subjective Subjective Interval history: Patient examined bedside, labs reviewed. AOx3 patient still is waxing and waning with her mentation. She has no complaints, responds OK to nearly every question but displays ability to comprehend. Awaiting blood cx redraw results. Continue treating UTI and bacteremia with IV Zosyn. Exam Vital Signs Temp Pulse Resp BP Pulse Ox O2 Del Method O2 Flow Rate 97.0 F 96 18 162/85 H 98 Nasal Cannula 3 05/31/25 07:53 05/31/25 07:53 05/31/25 07:53 05/31/25 07:53 05/31/25 07:53 05/31/25 07:53 05/31/25 07:53 FiO2 40 05/31/25 07:53 Narrative Exam General: Lying in bed, no acute distress. hand twitching, able to follow some commands, easily distractable. Eye: PERRL, EOMI, normal conjunctiva, no scleral icterus HENT: Normocephalic, atraumatic Neck: Supple, non-tender Lungs: dry cough on exam, very poor inspiratory effort, minimal lung sounds auscultated. Heart: Normal S1 and S2, no S3 or S4 appreciated. Abdomen: Soft, non-tender, non-distended, normal bowel sounds. Musculoskeletal: Unable to assess as patient was minimally responsive. Trace pretibial edema Skin: Skin is warm, dry, no rashes or lesions. Neurologic: Alert, awake, unable to assess orientation. No focal neuro deficits. Objective Labs 06/01/25 04:35 06/01/25 04:35 Labs: Laboratory Results - last 24 hr 05/30/25 05/31/25 07:53 04:21 WBC 11.1 H 9.9 RBC 3.55 L 3.46 L Hgb 10.0 L 9.6 L Hct 34.9 L 33.7 L MCV 98 97 MCH 28.2 27.7 MCHC 28.7 L 28.5 L RDW Std Deviation 55.6 H 55.8 H Plt Count 247 227 Neut % (Auto) 88 H 87 H Lymph % (Auto) 5 L 5 L Harvey % (Auto) 5 5 Eos % (Auto) 0 0 Baso % (Auto) 0 1 Neut # (Auto) 9.8 H 8.6 H Lymph # (Auto) 0.5 L 0.5 L Harvey # (Auto) 0.5 0.5 Eos # (Auto) 0.0 0.0 Baso # (Auto) 0.0 0.1 Immature Gran # (Auto) 0.27 H 0.37 H Absolute Nucleated RBC 0.02 H 0.02 H Immature Gran % 2 H 4 H Nucleated RBC % 0 0 Sodium 141 141 Potassium 5.3 H D 5.3 H Chloride 96 L 95 L Carbon Dioxide 39.4 H > 40.0 H Anion Gap 6 L 6 L BUN 24 H 28 H Creatinine 1.1 1.2 Estim Creat Clear Calc 42.9 L 38.6 L eGFR 48 L 43 L BUN/Creatinine Ratio 22 H 23 H Glucose 267 H 305 H Calculated Osmolality 294 297 H Calcium 10.5 9.8 Corrected Calcium 10.5 H 10.2 H Phosphorus 3.2 3.0 Magnesium 2.1 2.0 Total Bilirubin 0.4 0.4 AST 24 16 ALT 62 H 45 Alkaline Phosphatase 51 52 Total Protein 6.5 5.5 L Albumin 4.1 3.5 D Globulin 2.4 2.0 L Albumin/Globulin Ratio 1.7 1.8 ABG Interpretation ABG results: 05/26/25 05/26/25 05/27/25 01:55 09:34 09:47 ABG pH 7.21 L 7.21 L 7.44 D ABG pCO2 91 H* 89 H* 39 D ABG pO2 108 101 109 H ABG HCO3 36 H 35 H 26 ABG O2 Saturation 95 94 99 H ABG Base Excess 6 H 5 H 2 VBG pH VBG pCO2 VBG pO2 VBG Base Excess 05/28/25 05/28/25 13:09 14:55 ABG pH 7.34 L D ABG pCO2 81 H* D ABG pO2 37 L* D ABG HCO3 43 H ABG O2 Saturation 62 L ABG Base Excess 15 H VBG pH 7.55 VBG pCO2 47 VBG pO2 124 H VBG Base Excess 16 H Quality Measures Quality Measures none Advance care planning discussed with:: other Assessment & Plan Assessment Current Active Medications: Generic Name Dose Route Start Last Admin Trade Name Freq PRN Reason Stop Dose Admin Acetaminophen 650 mg 05/26/25 02:40 Acetaminophen 325 Mg Tablet PO 06/25/25 02:39 Q6H PRN Fever >101.5 Acetaminophen 650 mg 05/26/25 02:40 Acetaminophen 325 Mg Tablet PO 06/25/25 02:39 Q6H PRN PAIN SCALE 1-3 (mild Albuterol/Ipratropium 3 ml 05/26/25 11:00 05/31/25 06:31 Albuterol/Ipratropium (Duoneb) Rt Sravani 3 Ml Nebu INH 06/25/25 10:59 3 ml Q4HRRT CORTEZ Administration Aspirin 81 mg 05/26/25 09:00 05/30/25 09:38 Aspirin Ec 81 Mg Tabec PO 06/25/25 08:59 81 mg QDAY CORTEZ Administration Atorvastatin Calcium 10 mg 05/26/25 09:00 05/30/25 09:00 Atorvastatin Calcium 10 Mg Tablet PO 06/25/25 08:59 10 mg DAILY CORTEZ Administration Budesonide 0.25 mg 05/26/25 09:30 05/31/25 06:31 Budesonide Rt 0.25 Mg/2 Ml Nebu INH 06/25/25 09:29 0.25 mg BIDRT CORTEZ Administration Dextrose 25 ml 05/26/25 13:52 Dextrose 50%-Water Inj 50 Ml Syringe IV 06/25/25 13:51 Q15MIN PRN BG 50-70 responsive npo pt Dextrose 50 ml 05/26/25 13:52 Dextrose 50%-Water Inj 50 Ml Syringe IV 06/25/25 13:51 Q15MIN PRN BG <50 OR BG <70 & pt unresponsive Glucagon 1 mg 05/26/25 13:52 Glucagon Inj 1 Mg Vial IM Q15MIN PRN BG <70, and no IV access Heparin Sodium (Porcine) 5,000 unit 05/26/25 06:00 05/31/25 05:17 Heparin Sod Inj 5000 Unit/Ml Vial SC 06/09/25 05:59 5,000 unit Q8HR CORTEZ Administration Piperacillin/Tazobactam/Dextrose 3.375 g in 50 mls @ 100 mls/hr 05/27/25 21:00 05/30/25 20:14 Zosyn IV 06/03/25 20:59 100 mls/hr Q12HR CORTEZ Administration Protocol Insulin Degludec 15 unit 05/27/25 09:00 05/30/25 09:40 Insulin Degludec 5 Unit/0.05 Ml (Per 5 Units) SC 06/26/25 08:59 15 unit QDAY CORTEZ Administration Insulin Human Lispro 0 unit 05/26/25 17:00 05/31/25 07:37 Insulin Lispro (Admelog) 1 Unit/0.01 Ml Unit SC 06/25/25 16:59 5 unit ACHS CORTEZ Administration Protocol Insulin Human Lispro 3 unit 05/26/25 17:00 05/31/25 07:37 Insulin Lispro (Admelog) 1 Unit/0.01 Ml Unit SC 06/25/25 16:59 3 unit ACHS CORTEZ Administration Levothyroxine Sodium 100 mcg 05/26/25 06:00 05/31/25 05:16 Levothyroxine Sodium 100 Mcg Tablet PO 06/25/25 05:59 100 mcg ACBR CORTEZ Administration Methylprednisolone Sodium Succinate 40 mg 05/26/25 10:00 05/31/25 05:16 Methylprednisolone Sod Succ 40 Mg/Ml Vial IVP 06/02/25 09:59 40 mg Q8HR CORTEZ Administration Metoprolol Succinate 25 mg 05/26/25 09:00 05/30/25 09:38 Metoprolol Succinate Xl 25 Mg Tabcr PO 06/25/25 08:59 25 mg QDAY CORTEZ Administration Ondansetron HCl 4 mg 05/26/25 02:40 Ondansetron Inj 2 Mg/Ml Inj 2 Ml IVP 06/25/25 02:39 Q6H PRN NAUSEA OR VOMITING Protocol Pantoprazole Sodium 40 mg 05/26/25 09:00 05/30/25 09:38 Pantoprazole 40 Mg Tablet PO 06/25/25 08:59 40 mg QDAY CORTEZ Administration Pharmacy Consult 1 each 05/26/25 16:42 Pharmacy Renal Dose Adjustment 1 Ea XX 06/25/25 16:41 PRN PRN CONSULT Pramipexole Dihydrochloride 0.5 mg 05/26/25 21:00 05/30/25 20:15 Pramipexole 0.25 Mg Tablet PO 06/25/25 20:59 0.5 mg HS CORTEZ Administration Sennosides 1 tab 05/26/25 09:00 05/30/25 09:38 Senna/Docusate Sod 1 Tab Tablet PO 06/25/25 08:59 1 tab QDAY CORTEZ Administration Protocol Sodium Chloride 6 ml 05/26/25 02:13 05/26/25 02:37 Sodium Chloride Rt Sravani 0.9% 3 Ml Nebu INH 06/25/25 02:12 6 ml PRN PRN Administration SOLN Venlafaxine HCl 150 mg 05/26/25 09:00 05/30/25 09:39 Venlafaxine Xr 37.5 Mg Capcr PO 06/25/25 08:59 150 mg QDAY CORTEZ Administration Plan Ms. Coffman is an 89 y/o female with PMHx of ILD/pulmonary fibrosis, chronic respiratory failure on 2 L home oxygen and BiPAP, HFpEF, bedbound, recurrent MDR UTI, hypothyroidism, right breast cancer s/p lumpectomy, T2DM, GERD, depression, chronic back pain, known for recurrent admission for hypoxic hypercapnic respiratory failure presenting to the ED with hypoxia and urinary retention. Admitted for AHRF and MDR UTI. Patient is on hospice, needs goals of care. Bladder training 05/30 passed discontinuing almodovar. #Polymicrobial Bacteremia Blood cultures showed GNR and GPC possibly contaminant. 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 Will continue zosyn. Plan: -Repeat Blood cultures - Pending ID consult:____ #Acute on chronic hypoxic hypercapnic respiratory failure #Pulmonary fibrosis #ILD flare with possible superimposed bacterial infection Chronic ILD/pulmonary fibrosis leading to chronic respiratory failure, chronic CO2 retention, requiring daily BiPAP and home oxygen. She has recurrent admission AMS 2/2 hypercapnic respiratory failure as a result. Prognosis remains poor given intensity of symptoms, xrays and will disclose with family regarding comfort measures, likely will continue to worsen with time. Recently was discharged for similar condition. Given Given methylpred 125 mg IV x2, Duoneb, Levofloxacin, Mg sulfate, Lasix 40 mg IV, Morphine 2 mg IV,m Levalbuterol 2.5 mg, nitroglycerin topical in ED. Repeat ABG pH 7.21 pCO2 89 po2 101 HCO3 35 Plan: - Continue BiPAP - Duonebs 3ml Q4HRRT - Continuous pulse ox - Budesonide Rt 0.25 mg - discontinue lasix - Continue solumedrol 40mg IV q8hrs -Dr. Jerez consulted: will send steroid taper plan, Bipap at night, fax dc sum w/ his phone number to her PCP. #UTI Hx multidrug resistant recurrent UTI A 1+ blood, +LE, 10 RBC, 55 WBC, 1+ bacteria. yeast. Plan: - Zosyn 2.5 mg IV q6h (renally dosed) - Urine Cx: pseudonomas (sensitive to cefepime, ceftazidine, zosyn). #HFpEF EF 65% #Pulmonary Arterial Hypertension Echocardiogram from 12/2024 showed EF 65%, trace mitral and tricuspid regurg, no wall motion abnormalities. However, she has chronic fluid retention for which she takes LASIX 20 mg daily. CXR showing vascular congestion and mild bilateral ankle blunting. BNP 810. CXR poor visualization, perihilar vascular congestion. Plan: - discontinue Lasix 40mg daily - Strict I+O - Daily weight #STEVE Most likely prerenal i/s/o AHRF and HFpEF BUN 36, Cr 1.3, BUN/Cr 28, eGFR 39 Plan: - Management of AHRF and HFpEF as above - CTM with daily BMP #Hypothyroidism TSH WNL Plan: - Levothyroxine 100 mcg PO daily #Insulin-dependent T2DM Last A1c of 7.9 Plan: - SSI - Pending A1C #Hypertension Chronic Plan: - Metoprolol succinate XL 25 mg PO daily #Esophageal stenosis s/p dilation #Chronic constipation s/p EGD with dilation for dysphagia secondary to esophageal stenosis Plan: - Dysphagia III diet #Depression Chronic Plan: - Venlafaxine 150 mg ER PO daily (home med) #GERD Chronic Plan: -Pantoprazole 40 mg PO daily (home med omeprazole not on formulary) #HLD Plan: - Rosuvastatin 5 mg PO QHS (home med)- held - Aspirin 81 mg PO daily (home med) - continuing - Atorvastatin 10mg PO QD #Chronic back pain Plan: - Kilgore 10-325 mg PO TID PRN (home med) #Hyperkalemia - resolved Dispo: Admit to tele for AHRF Diet: Carb consistent, dysphagia 3 Bowel Reg: doc-senna daily cortez VTE ppx: heparin subQ GI ppx: Pantoprazole 40 mg PO daily Pain mgmt: Tylenol, Kilgore 10-325 (home med) Code status: DNR Case was discussed with Attending Dr. Schmidt, and Senior Resident Dr. Jason Casey MD PGY-1 Attending Provider Attestation/Addendum I have examined the patient, reviewed labs and imaging findings, discussed the case with the resident(s), and reviewed entered orders. I agree with the plan of care as outlined in this note, with these additional summaries/recommendations: Patient seen at bedside. No acute overnight events. Continue IV antibiotics for bacteremia. Awaiting repeat blood culture results and we will consult infectious disease for bacteremia and antibiotic stewardship. Patient has acute on chronic hypoxic plus hypercapnic respiratory failure secondary to underlying interstitial lung disease with pulmonary fibrosis and now superimposed bacterial pneumonia. Continue IV antibiotics. Patient has underlying pulmonary arterial hypertension and can follow-up with pulmonology outpatient. Overall prognosis is guarded. Pending further goals of care with patient's son. Patient has STEVE that has now resolved with minimal hyperkalemia which we will monitor for now. If worsens we will give temporizing measures and Kayexalate. Continue insulin sliding scale with Accu-Cheks for diabetes mellitus type 2. Patient updated on the plan and in agreement. All questions answered to satisfaction. Please see residents note for additional details and management. Dr. Brayan MD
[2025-05-31] MEDS: PIPER/TAZO 3.375 GM PREMIX 3.375 G/50 ML BAG IV ×2 (08:24→20:20)
[2025-05-31] MEDS: VENLAFAXINE XR 37.5 MG CAPCR 150 MG PO (08:24)
[2025-05-31] MEDS: INSULIN DEGLUDEC 5 UNIT/0.05 ML (PER 5 UNITS) 15 UNIT SC (08:25)
[2025-05-31] MEDS: METOPROLOL SUCCINATE XL 25 MG TABCR PO (08:25)
[2025-05-31] MEDS: ASPIRIN EC 81 MG TABEC PO (08:26)
[2025-05-31] MEDS: ATORVASTATIN CALCIUM 10 MG TABLET PO (08:26)
[2025-05-31] MEDS: SENNA/DOCUSATE SOD 1 TAB TABLET PO (08:26)
[2025-05-31] MEDS: PANTOPRAZOLE 40 MG TABLET PO (08:26)
[2025-05-31 15:39] LABS: Albumin, Serum 3.8 gm/dL (3.4-4.8); Anion Gap 6 (7-16); BUN/Creatinine Ratio 29 Ratio (12-20); Blood Urea Nitrogen 32 mg/dL (9-23); Calcium 9.9 mg/dL (8.3-10.6); Calcium (Corrected) 10.1 mg/dL (8.5-10.1); Carbon Dioxide > 40.0 mMol/L (20.0-31.0); Chloride 94 mMol/L (98-107); Creatinine (Component) 1.1 mg/dL (0.6-1.3); Estimated Creatinine Clearance 42.2 mL/min (>60); Glucose 253 mg/dL (74-106); Osmolality,Calculated 295 (275-295); Phosphorous 3.3 mg/dL (2.4-5.1); Potassium 4.9 mMol/L (3.4-5.1); Sodium 140 mMol/L (136-145); eGFR 48 See Note
--- NOTE | 2025-05-31 15:40 | PC.SS ---
SS follow up note; Patient is pending Dr. Montero's rec's. Patient will discharge home when medically cleared.
--- NOTE | 2025-05-31 16:15 | PD.PUCONS ---
[facility] Pulmonology Consult Data of Consult Requesting Physician: Allan Schmidt MD Primary Care Provider: Physician No Primary/Family Consult Narrative History of present illness: Ms. Coffman is a 89-year-old female with past medical history significant for ILD/pulmonary fibrosis, chronic respiratory failure on home O2, HFpEF, bedbound, recurrent MDR UTI, hypothyroidism, right breast cancer status postlumpectomy, type 2 diabetes, GERD, depression, chronic back pain who presented to the ED with hypoxia and urinary retention. Patient admitted for further management of acute hypoxic respiratory failure and was later found to have multidrug-resistant UTI. ID consulted for further management of patient's hypoxia and leukocytosis. Past medical history: As mentioned above Past surgical history: Unknown Allergies: Sulfa drugs Immunizations: Last tetanus shot is unknown, patient does not take flu shot annually and has had COVID vaccines in the past. Family history: Positive for cancer in her mother Social history: Patient has caregivers 10/03, denies any history of alcohol, tobacco, other illicit drug use. cc:: cc: Allan Schmidt MD Meds Home Medications and Allergies Home Medications ?Medication ?Instructions ?Recorded ?Confirmed ?Type methenamine hippurate 1 gram tablet 1 g PO BID 04/18/20 05/26/25 History omeprazole 40 mg capsule,delayed 40 mg PO QDAY 06/04/21 05/26/25 History release ascorbic acid (vitamin C) 500 mg 500 mg PO BID 03/19/24 05/26/25 History tablet (Vitamin C) aspirin 81 mg tablet 81 mg PO QDAY 03/19/24 05/26/25 History calcium 600 mg (as 0.5 tab PO QDAY 12/27/24 05/26/25 History carbonate)-vitamin D3 5 mcg (200 unit) tablet (Calcium 600 + D(3)) hydrocodone 10 mg-acetaminophen 1 tab PO TID PRN pain 12/27/24 05/26/25 History 325 mg tablet lactobacillus comb no.10 20 25,000 mmu cells PO QDAY 12/27/24 05/26/25 History billion cell capsule (Probiotic) levothyroxine 100 mcg tablet 100 mcg PO QDAY 02/15/25 05/26/25 History Allergies Allergy/AdvReac Type Severity Reaction Status Date / Time cefuroxime Allergy Intermediate Swelling Verified 05/26/25 00:35 of Lip/Tongue/Throat zinc Allergy Intermediate Rash Verified 05/26/25 00:35 iodine Allergy Unknown Verified 05/26/25 00:35 shellfish derived Allergy Unknown Verified 05/26/25 00:35 Sulfa (Sulfonamide Allergy Unknown Verified 05/26/25 00:35 Antibiotics) Influenza Virus Vaccines Allergy Verified 05/26/25 00:35 Exam Vital Signs Temp Pulse Resp BP Pulse Ox O2 Del Method O2 Flow Rate 97.4 F 92 11 L 139/72 H 99 Nasal Cannula 4 06/02/25 11:52 06/02/25 16:00 06/02/25 14:24 06/02/25 11:52 06/02/25 14:24 06/02/25 11:52 06/02/25 14:24 FiO2 35 06/02/25 03:34 Results - Blood [employer]or Recruiter Supervisor Labs 06/02/25 04:55 06/02/25 04:55 ABG Interpretation ABG results: 05/26/25 05/26/25 05/27/25 01:55 09:34 09:47 ABG pH 7.21 L 7.21 L 7.44 D ABG pCO2 91 H* 89 H* 39 D ABG pO2 108 101 109 H ABG HCO3 36 H 35 H 26 ABG O2 Saturation 95 94 99 H ABG Base Excess 6 H 5 H 2 VBG pH VBG pCO2 VBG pO2 VBG Base Excess 05/28/25 05/28/25 13:09 14:55 ABG pH 7.34 L D ABG pCO2 81 H* D ABG pO2 37 L* D ABG HCO3 43 H ABG O2 Saturation 62 L ABG Base Excess 15 H VBG pH 7.55 VBG pCO2 47 VBG pO2 124 H VBG Base Excess 16 H Assessment & Plan Additional Plan Additional Plan: PLAN: See MD orders and discussion above. Will continue supportive care of the organ system problems, diagnoses, and failures noted above. [A central line continues to be necessary for infusion of medications and IV fluids, it is to be removed when other adequate venous access is accomplished.] [Cannot be safely managed without restraints as potential for harm secondary to inadvertent movement and loss of tubes and lines outweighs the burdens of restraint.] This patient is critically ill and required [] minutes of my time to provide documentation, evaluate, manage and maintain or prevent deterioration of the organ systems and problems noted above. This critical care time does not include time I spent performing procedures that are reported separately. [If almodovar catheter present, it remains necessary to monitor urine output continuously, and/or divert urine from the skin. It will be removed per policy when it is not needed for these purposes.] Provider Notation Provider Notation: Although this document has been carefully reviewed, there may still be some phonetic and other typographical errors. These errors are purely grammatical due to imperfections in the software program and should not be construed in any way to compromise the substance of the patient's medical care during this visit. Thank you for the opportunity and privilege in assisting you with this patient's care and management.
[2025-05-31] MEDS: PRAMIPEXOLE 0.25 MG TABLET 0.5 MG PO (20:20)
[2025-06-01] VITALS (14 sets, daily range): BP systolic 122–141; BP diastolic 58–92; PULSE 74–100; RESP 14–27; TEMP 36.1–36.8; O2SAT 89–99; BMI 34.9
[2025-06-01] MEDS: ALBUTEROL/IPRATROPIUM (Duoneb) RT SOL 3 ML NEBU INH ×6 (02:10→23:15)
[2025-06-01] MEDS: LEVOTHYROXINE SODIUM 100 MCG TABLET PO (05:09)
[2025-06-01] MEDS: HEPARIN SOD INJ 5000 UNIT/ML VIAL SC ×3 (05:16→22:23)
[2025-06-01 05:56] LABS: Basophils # (Auto) 0.0 Thou/mm3 (0.0-0.2); Basophils % (Auto) 0 % (0-2.5); Eosinophils # (Auto) 0.0 Thou/mm3 (0.0-0.5); Eosinophils % (Auto) 0 % (0-10); Hematocrit 38.9 % (36.0-46.0); Hemoglobin 11.0 g/dL (12.0-16.0); Immature Granulocytes Auto 0.45 Thou/mm3 (0.00-0.00); Lymphocytes # (Auto) 0.6 Thou/mm3 (1.0-4.8); Lymphocytes % (Auto) 5 % (10-50); Mean Corpuscular HGB Conc 28.3 g/dl (31.0-37.0); Mean Corpuscular Hemoglobin 27.6 pg (25.0-35.0); Mean Corpuscular Volume 98 fL (80-100); Monocytes # (Auto) 0.7 Thou/mm3 (0.0-0.8); Monocytes % (Auto) 5 % (0-12); Neutrophils # (Auto) 12.4 Thou/mm3 (1.8-7.7); Neutrophils % (Auto) 88 % (37-80); Nucleated Red Blood Cell # 0.00 Thou/mm3 (0.00-0.00); Nucleated Red Blood Cell % 0 /100 WBC (0); Platelet Count 238 Thou/mm3 (140-440); RDW Standard Deviation 54.0 fL (36.4-46.3); Red Blood Count 3.99 Miln/mm3 (4.00-5.20); White Blood Count 14.1 Thou/mm3 (3.6-11.0)
[2025-06-01 06:15] LABS: Alanine Aminotransferase 43 U/L (10-49); Albumin, Serum 3.9 gm/dL (3.4-4.8); Albumin/Globulin Ratio 1.7 (1.2-2.2); Alkaline Phosphatase 49 U/L (46-116); Anion Gap 6 (7-16); Aspartate Amino Transferase 15 U/L (0-34); BUN/Creatinine Ratio 28 Ratio (12-20); Bilirubin,Total 0.5 mg/dL (0.3-1.2); Blood Urea Nitrogen 25 mg/dL (9-23); Calcium 10.1 mg/dL (8.3-10.6); Calcium (Corrected) 10.2 mg/dL (8.5-10.1); Carbon Dioxide 39.9 mMol/L (20.0-31.0); Chloride 95 mMol/L (98-107); Creatinine (Component) 0.9 mg/dL (0.6-1.3); Estimated Creatinine Clearance 50.8 mL/min (>60); Globulin 2.3 gm/dL (2.3-3.5); Glucose 219 mg/dL (74-106); Magnesium 2.3 mg/dL (1.6-2.6); Osmolality,Calculated 292 (275-295); Phosphorous 3.5 mg/dL (2.4-5.1); Potassium 5.4 mMol/L (3.4-5.1); Sodium 141 mMol/L (136-145); Total Protein 6.2 gm/dL (5.7-8.2); eGFR > 60 See Note
[2025-06-01] MEDS: BUDESONIDE RT 0.25 MG/2 ML NEBU INH ×2 (06:59→18:13)
[2025-06-01] MEDS: INSULIN LISPRO (AdmeLOG) 1 UNIT/0.01 ML UNIT SC ×4 (07:51→20:19)
[2025-06-01] MEDS: INSULIN LISPRO (AdmeLOG) 1 UNIT/0.01 ML UNIT 3 UNIT SC (07:53)
[2025-06-01] MEDS: SOD POLYSTYRENE SULFON SUSP 15 GM/60 ML BTL PO (08:49)
[2025-06-01] MEDS: PIPER/TAZO 3.375 GM PREMIX 3.375 G/50 ML BAG IV ×2 (08:49→20:23)
[2025-06-01] MEDS: VENLAFAXINE XR 37.5 MG CAPCR 150 MG PO (08:49)
[2025-06-01] MEDS: INSULIN DEGLUDEC 5 UNIT/0.05 ML (PER 5 UNITS) 15 UNIT SC (08:49)
[2025-06-01] MEDS: PANTOPRAZOLE 40 MG TABLET PO (08:49)
[2025-06-01] MEDS: METOPROLOL SUCCINATE XL 25 MG TABCR PO (08:50)
[2025-06-01] MEDS: ASPIRIN EC 81 MG TABEC PO (08:50)
[2025-06-01] MEDS: SENNA/DOCUSATE SOD 1 TAB TABLET PO (08:50)
[2025-06-01] MEDS: ATORVASTATIN CALCIUM 10 MG TABLET PO (08:50)
--- NOTE | 2025-06-01 09:46 | PC.SS ---
Update: Pending Dr. Montero recommendations. Pulmonolgy is consulting.
[2025-06-01] MEDS: INSULIN LISPRO (AdmeLOG) 1 UNIT/0.01 ML UNIT 5 UNIT SC ×3 (12:08→20:20)
--- NOTE | 2025-06-01 13:24 | ESPR_ITS ---
<Statement entered by Jim Gomez MD - 06/02/25 15:35> I saw and examined patient personally and supervised PGY 1 resident, Dr. Casey with formulating a management plan. I agree with the documentation with the exceptions as listed below. Patient is on Zosyn IV for UTI and suspected bacteremia. Currently pending ID, Dr. Montero's recommendations. She is also on methylprednisone 40 mg IV every 8 hourly for her ILD flare. Will decrease methylprednisone to 40 mg IV twice daily from tomorrow. Anticipate discharge within next 24 to 48 hours. Plan of care discussed with Attending Dr. Brayan Gomez MD PGY 2 Disclaimer: This note was dictated by speech recognition. Minor errors in cyber systems operations specialist may be present due to voice recognition software. Documentation for date of: 06/01/25 Subjective Subjective Interval history: Patient examined bedside, labs reviewed. Pending Dr. Jerez's recommendations for steroid taper. Dr. Montero's recs: vaginal estrogen cream for urinary issues, and to finish the IV zosyn tomorrow and safe to DC then. Of note, repeat blood cultures showed no growth at the 48 hour interval. Today patient is doing well and AOx4. She is OK and good for nearly all questions. Exam Vital Signs Temp Pulse Resp BP Pulse Ox O2 Del Method O2 Flow Rate 96.9 F 98 22 H 122/75 96 Nasal Cannula 2 06/01/25 11:50 06/01/25 12:00 06/01/25 11:50 06/01/25 11:50 06/01/25 11:50 06/01/25 11:50 06/01/25 11:50 FiO2 40 06/01/25 06:59 Narrative Exam General: Lying in bed, no acute distress. hand twitching, able to follow some commands, easily distractable. Eye: PERRL, EOMI, normal conjunctiva, no scleral icterus HENT: Normocephalic, atraumatic Neck: Supple, non-tender Lungs: dry cough on exam, very poor inspiratory effort, minimal lung sounds auscultated. Heart: Normal S1 and S2, no S3 or S4 appreciated. Abdomen: Soft, non-tender, non-distended, normal bowel sounds. Musculoskeletal: Unable to assess as patient was minimally responsive. Trace pretibial edema Skin: Skin is warm, dry, no rashes or lesions. Neurologic: Alert, awake, unable to assess orientation. No focal neuro deficits. Objective Labs 06/01/25 04:35 06/01/25 13:05 Labs: Laboratory Results - last 24 hr 05/31/25 06/01/25 14:52 04:35 WBC 14.1 H D RBC 3.99 L Hgb 11.0 L Hct 38.9 MCV 98 MCH 27.6 MCHC 28.3 L RDW Std Deviation 54.0 H Plt Count 238 Neut % (Auto) 88 H Lymph % (Auto) 5 L Orange % (Auto) 5 Eos % (Auto) 0 Baso % (Auto) 0 Neut # (Auto) 12.4 H Lymph # (Auto) 0.6 L Orange # (Auto) 0.7 Eos # (Auto) 0.0 Baso # (Auto) 0.0 Immature Gran # (Auto) 0.45 H Absolute Nucleated RBC 0.00 Immature Gran % 3 H Nucleated RBC % 0 Sodium 140 141 Potassium 4.9 5.4 H D Chloride 94 L 95 L Carbon Dioxide > 40.0 H 39.9 H Anion Gap 6 L 6 L BUN 32 H 25 H Creatinine 1.1 0.9 Estim Creat Clear Calc 42.2 L 50.8 L eGFR 48 L > 60 BUN/Creatinine Ratio 29 H 28 H Glucose 253 H D 219 H Calculated Osmolality 295 292 Calcium 9.9 10.1 Corrected Calcium 10.1 10.2 H Phosphorus 3.3 3.5 Magnesium 2.3 Total Bilirubin 0.5 AST 15 ALT 43 Alkaline Phosphatase 49 Total Protein 6.2 Albumin 3.8 3.9 Globulin 2.3 Albumin/Globulin Ratio 1.7 ABG Interpretation ABG results: 05/26/25 05/26/25 05/27/25 01:55 09:34 09:47 ABG pH 7.21 L 7.21 L 7.44 D ABG pCO2 91 H* 89 H* 39 D ABG pO2 108 101 109 H ABG HCO3 36 H 35 H 26 ABG O2 Saturation 95 94 99 H ABG Base Excess 6 H 5 H 2 VBG pH VBG pCO2 VBG pO2 VBG Base Excess 05/28/25 05/28/25 13:09 14:55 ABG pH 7.34 L D ABG pCO2 81 H* D ABG pO2 37 L* D ABG HCO3 43 H ABG O2 Saturation 62 L ABG Base Excess 15 H VBG pH 7.55 VBG pCO2 47 VBG pO2 124 H VBG Base Excess 16 H Quality Measures Quality Measures none Advance care planning discussed with:: patient and other Assessment & Plan Assessment Current Active Medications: Generic Name Dose Route Start Last Admin Trade Name Freq PRN Reason Stop Dose Admin Acetaminophen 650 mg 05/26/25 02:40 Acetaminophen 325 Mg Tablet PO 06/25/25 02:39 Q6H PRN Fever >101.5 Acetaminophen 650 mg 05/26/25 02:40 Acetaminophen 325 Mg Tablet PO 06/25/25 02:39 Q6H PRN PAIN SCALE 1-3 (mild Albuterol/Ipratropium 3 ml 05/26/25 11:00 06/01/25 10:27 Albuterol/Ipratropium (Duoneb) Rt Sravani 3 Ml Nebu INH 06/25/25 10:59 3 ml Q4HRRT CORTEZ Administration Aspirin 81 mg 05/26/25 09:00 06/01/25 08:50 Aspirin Ec 81 Mg Tabec PO 06/25/25 08:59 81 mg QDAY CORTEZ Administration Atorvastatin Calcium 10 mg 05/26/25 09:00 06/01/25 08:50 Atorvastatin Calcium 10 Mg Tablet PO 06/25/25 08:59 10 mg DAILY CORTEZ Administration Budesonide 0.25 mg 05/26/25 09:30 06/01/25 06:59 Budesonide Rt 0.25 Mg/2 Ml Nebu INH 06/25/25 09:29 0.25 mg BIDRT CORTEZ Administration Dextrose 25 ml 05/26/25 13:52 Dextrose 50%-Water Inj 50 Ml Syringe IV 06/25/25 13:51 Q15MIN PRN BG 50-70 responsive npo pt Dextrose 50 ml 05/26/25 13:52 Dextrose 50%-Water Inj 50 Ml Syringe IV 06/25/25 13:51 Q15MIN PRN BG <50 OR BG <70 & pt unresponsive Glucagon 1 mg 05/26/25 13:52 Glucagon Inj 1 Mg Vial IM Q15MIN PRN BG <70, and no IV access Heparin Sodium (Porcine) 5,000 unit 05/26/25 06:00 06/01/25 05:16 Heparin Sod Inj 5000 Unit/Ml Vial SC 06/09/25 05:59 5,000 unit Q8HR CORTEZ Administration Piperacillin/Tazobactam/Dextrose 3.375 g in 50 mls @ 100 mls/hr 05/27/25 21:00 06/01/25 08:49 Zosyn IV 06/03/25 20:59 100 mls/hr Q12HR CORTEZ Administration Protocol Insulin Degludec 15 unit 05/27/25 09:00 06/01/25 08:49 Insulin Degludec 5 Unit/0.05 Ml (Per 5 Units) SC 06/26/25 08:59 15 unit QDAY CORTEZ Administration Insulin Human Lispro 0 unit 05/26/25 17:00 06/01/25 12:06 Insulin Lispro (Admelog) 1 Unit/0.01 Ml Unit SC 06/25/25 16:59 5 unit ACHS CORTEZ Administration Protocol Insulin Human Lispro 5 unit 06/01/25 11:30 06/01/25 12:08 Insulin Lispro (Admelog) 1 Unit/0.01 Ml Unit SC 07/01/25 11:29 5 unit ACHS CORTEZ Administration Levothyroxine Sodium 100 mcg 05/26/25 06:00 06/01/25 05:09 Levothyroxine Sodium 100 Mcg Tablet PO 06/25/25 05:59 100 mcg ACBR CORTEZ Administration Methylprednisolone Sodium Succinate 40 mg 05/26/25 10:00 06/01/25 05:09 Methylprednisolone Sod Succ 40 Mg/Ml Vial IVP 06/02/25 09:59 40 mg Q8HR CORTEZ Administration Metoprolol Succinate 25 mg 05/26/25 09:00 06/01/25 08:50 Metoprolol Succinate Xl 25 Mg Tabcr PO 06/25/25 08:59 25 mg QDAY CORTEZ Administration Ondansetron HCl 4 mg 05/26/25 02:40 Ondansetron Inj 2 Mg/Ml Inj 2 Ml IVP 06/25/25 02:39 Q6H PRN NAUSEA OR VOMITING Protocol Pantoprazole Sodium 40 mg 05/26/25 09:00 06/01/25 08:49 Pantoprazole 40 Mg Tablet PO 06/25/25 08:59 40 mg QDAY CORTEZ Administration Pharmacy Consult 1 each 05/26/25 16:42 Pharmacy Renal Dose Adjustment 1 Ea XX 06/25/25 16:41 PRN PRN CONSULT Pramipexole Dihydrochloride 0.5 mg 05/26/25 21:00 10/14/25 20:20 Pramipexole 0.25 Mg Tablet PO 06/25/25 20:59 0.5 mg HS CORTEZ Administration Sennosides 1 tab 05/26/25 09:00 06/01/25 08:50 Senna/Docusate Sod 1 Tab Tablet PO 06/25/25 08:59 1 tab QDAY CORTEZ Administration Protocol Sodium Chloride 6 ml 05/26/25 02:13 05/26/25 02:37 Sodium Chloride Rt Sravani 0.9% 3 Ml Nebu INH 06/25/25 02:12 6 ml PRN PRN Administration SOLN Venlafaxine HCl 150 mg 05/26/25 09:00 06/01/25 08:49 Venlafaxine Xr 37.5 Mg Capcr PO 06/25/25 08:59 150 mg QDAY CORTEZ Administration Plan Ms. Coffman is an 89 y/o female with PMHx of ILD/pulmonary fibrosis, chronic respiratory failure on 2 L home oxygen and BiPAP, HFpEF, bedbound, recurrent MDR UTI, hypothyroidism, right breast cancer s/p lumpectomy, T2DM, GERD, depression, chronic back pain, known for recurrent admission for hypoxic hypercapnic respiratory failure presenting to the ED with hypoxia and urinary retention. Admitted for AHRF and MDR UTI. Patient is on hospice, needs goals of care. #Polymicrobial Bacteremia Blood cultures showed GNR and GPC possibly contaminant. 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 Will continue zosyn. Plan: -Repeat Blood cultures -ID consult: try vaginal estrogen cream for urine issue. finish zosyn iv tomorrow. #Acute on chronic hypoxic hypercapnic respiratory failure #Pulmonary fibrosis #ILD flare with possible superimposed bacterial infection Chronic ILD/pulmonary fibrosis leading to chronic respiratory failure, chronic CO2 retention, requiring daily BiPAP and home oxygen. She has recurrent admission AMS 2/2 hypercapnic respiratory failure as a result. Prognosis remains poor given intensity of symptoms, xrays and will disclose with family regarding comfort measures, likely will continue to worsen with time. Recently was discharged for similar condition. Given Given methylpred 125 mg IV x2, Duoneb, Levofloxacin, Mg sulfate, Lasix 40 mg IV, Morphine 2 mg IV,m Levalbuterol 2.5 mg, nitroglycerin topical in ED. Repeat ABG pH 7.21 pCO2 89 po2 101 HCO3 35 Plan: - Continue BiPAP - Duonebs 3ml Q4HRRT - Continuous pulse ox - Budesonide Rt 0.25 mg - discontinue lasix - Continue solumedrol 40mg IV q8hrs -Dr. Jerez consulted: will send steroid taper plan, Bipap at night, fax dc sum w/ his phone number to her PCP. #UTI Hx multidrug resistant recurrent UTI. ID recommends finishing zosyn and discharging 06/02. A 1+ blood, +LE, 10 RBC, 55 WBC, 1+ bacteria. yeast. Plan: - Zosyn 2.5 mg IV q6h (renally dosed) - Urine Cx: pseudonomas (sensitive to cefepime, ceftazidine, zosyn). - Estrogen vaginal cream #HFpEF EF 65% #Pulmonary Arterial Hypertension Echocardiogram from 12/2024 showed EF 65%, trace mitral and tricuspid regurg, no wall motion abnormalities. However, she has chronic fluid retention for which she takes LASIX 20 mg daily. CXR showing vascular congestion and mild bilateral ankle blunting. BNP 810. CXR poor visualization, perihilar vascular congestion. Plan: - discontinue Lasix 40mg daily - Strict I+O - Daily weight #STEVE Most likely prerenal i/s/o AHRF and HFpEF BUN 36, Cr 1.3, BUN/Cr 28, eGFR 39 Plan: - Management of AHRF and HFpEF as above - CTM with daily BMP #Hypothyroidism TSH WNL Plan: - Levothyroxine 100 mcg PO daily #Insulin-dependent T2DM Last A1c of 7.9 Plan: - SSI - Pending A1C #Hypertension Chronic Plan: - Metoprolol succinate XL 25 mg PO daily #Esophageal stenosis s/p dilation #Chronic constipation s/p EGD with dilation for dysphagia secondary to esophageal stenosis Plan: - Dysphagia III diet #Depression Chronic Plan: - Venlafaxine 150 mg ER PO daily (home med) #GERD Chronic Plan: -Pantoprazole 40 mg PO daily (home med omeprazole not on formulary) #HLD Plan: - Rosuvastatin 5 mg PO QHS (home med)- held - Aspirin 81 mg PO daily (home med) - continuing - Atorvastatin 10mg PO QD #Chronic back pain Plan: - [place] 10-325 mg PO TID PRN (home med) #Hyperkalemia Potassium has fluctuated from high 4s to low 5s. Most likely due to Bblocker metoprolol in combination with steroids. Will continue to monitor. Can treat with insulin, beta agonists, or keyaxelate. Dispo: Admit to tele for AHRF Diet: Carb consistent, dysphagia 3 Bowel Reg: doc-senna daily cortez VTE ppx: heparin subQ GI ppx: Pantoprazole 40 mg PO daily Pain mgmt: Tylenol, [place] 10-325 (home med) Code status: DNR Case was discussed with Attending Dr. Schmidt, and Senior Resident Dr. Jason Casey MD PGY-1 Attending Provider Attestation/Addendum I have examined the patient, reviewed labs and imaging findings, discussed the case with the resident(s), and reviewed entered orders. I agree with the plan of care as outlined in this note, with these additional summaries/recommendations: Patient seen at bedside. No acute overnight events. Continue IV antibiotics for bacteremia. Awaiting repeat blood culture results and we will consult infectious disease for bacteremia and antibiotic stewardship. Patient has acute on chronic hypoxic plus hypercapnic respiratory failure secondary to underlying interstitial lung disease with pulmonary fibrosis and now superimposed bacterial pneumonia. Continue IV antibiotics. Patient has underlying pulmonary arterial hypertension and can follow-up with pulmonology outpatient. Overall prognosis is guarded. Pending further goals of care with patient's son. Patient has STEVE that has now resolved with minimal hyperkalemia which we will monitor for now. If worsens we will give temporizing measures and Kayexalate. Continue insulin sliding scale with Accu-Cheks for diabetes mellitus type 2. Patient updated on the plan and in agreement. All questions answered to satisfaction. Please see residents note for additional details and management. Dr. Brayan MD
--- NOTE | 2025-06-01 13:29 | PC.PT ---
Upon chart review, patient is bedbound requiring sergio lift transfer for multiple years. PT confirmed with BASKET PATCHER that PT eval is not required for patient to go home with HH PT. Patient is bedbound and not a candidate for acute care PT at this time. Will cancel PT eval.
[2025-06-01 13:43] LABS: Albumin, Serum 3.8 gm/dL (3.4-4.8); Anion Gap 9 (7-16); BUN/Creatinine Ratio 26 Ratio (12-20); Blood Urea Nitrogen 29 mg/dL (9-23); Calcium 9.7 mg/dL (8.3-10.6); Calcium (Corrected) 9.9 mg/dL (8.5-10.1); Carbon Dioxide 37.4 mMol/L (20.0-31.0); Chloride 92 mMol/L (98-107); Creatinine (Component) 1.1 mg/dL (0.6-1.3); Estimated Creatinine Clearance 41.6 mL/min (>60); Glucose 339 mg/dL (74-106); Osmolality,Calculated 294 (275-295); Phosphorous 3.5 mg/dL (2.4-5.1); Potassium 5.2 mMol/L (3.4-5.1); Sodium 138 mMol/L (136-145); eGFR 48 See Note
--- NOTE | 2025-06-01 13:50 | ESCONSULT_ITS ---
<Statement entered by Walter Montero MD - 06/03/25 08:42> pt seen with resident. all findings confirmed. see additional notes for details HPI Data of Consult Requesting Physician: Allan Schmidt MD Admitting Provider: German Benitez MD Attending Provider: Allan Schmidt MD Primary Care Provider: Physician No Primary/Family Consult Narrative Reason for consult: hypoxia and leukocytosis History of present illness: Ms. Coffman is a 89-year-old female with past medical history significant for ILD/pulmonary fibrosis, chronic respiratory failure on home O2, HFpEF, bedbound, recurrent MDR UTI, hypothyroidism, right breast cancer status postlumpectomy, type 2 diabetes, GERD, depression, chronic back pain who presented to the ED with hypoxia and urinary retention. Patient admitted for further management of acute hypoxic respiratory failure and was later found to have multidrug- resistant UTI. ID consulted for further management of patient's hypoxia and leukocytosis. Past medical history: As mentioned above Past surgical history: Unknown Allergies: Sulfa drugs Immunizations: Last tetanus shot is unknown, patient does not take flu shot annually and has had COVID vaccines in the past. Family history: Positive for cancer in her mother Social history: Patient has caregivers 10/03, denies any history of alcohol, tobacco, other illicit drug use. cc:: cc: Allan Schmidt MD Review of Systems Review of Systems Systems Reviewed: All systems reviewed, normal except as documented Exam Vital Signs Temp Pulse Resp BP Pulse Ox O2 Del Method O2 Flow Rate 96.9 F 98 22 H 122/75 96 Nasal Cannula 2 06/01/25 11:50 06/01/25 12:00 06/01/25 11:50 06/01/25 11:50 06/01/25 11:50 06/01/25 11:50 06/01/25 11:50 FiO2 40 06/01/25 06:59 Narrative Exam General Appearance: Pt in NAD laying comfortably in bed. Alert, able to answer some questions. HEENT: NC/AT, no scleral icterus, no conjunctival pallor, MMM Lungs: Diminished lung sounds throughout lung chandra CVS: RRR, S1/S2 heard, no murmurs or rubs appreciated ABD: Soft, non-tender, non-distended, BS + in all 4 quadrants EXT: no deformity/edema/lesions/cyanosis/clubbing, radial pulses 2+ BL, DP pulses 2 + BL SKIN: Skin exam normal without any rashes. Neuro: A&O x 3. No gross neurological deficits. Motor and sensory grossly intact in B/L UL and LL. Psych: Appropriate mood and affect Results Labs 06/02/25 04:55 06/02/25 04:55 Labs: Short CBC 06/01/25 Range/Units 04:35 WBC 14.1 H D (3.6-11.0) Thou/mm3 Hgb 11.0 L (12.0-16.0) g/dL Hct 38.9 (36.0-46.0) % Plt Count 238 (140-440) Thou/mm3 BMP 05/31/25 06/01/25 06/01/25 14:52 04:35 13:05 Sodium 140 141 138 Potassium 4.9 5.4 H D 5.2 H Chloride 94 L 95 L 92 L Carbon Dioxide > 40.0 H 39.9 H 37.4 H BUN 32 H 25 H 29 H Creatinine 1.1 0.9 1.1 Glucose 253 H D 219 H 339 H D Calcium 9.9 10.1 9.7 Liver Function 05/31/25 06/01/25 06/01/25 Range/Units 14:52 04:35 13:05 Total Bilirubin 0.5 (0.3-1.2) mg/dL AST 15 (0-34) U/L ALT 43 (10-49) U/L Alkaline Phosphatase 49 (46-116) U/L Albumin 3.8 3.9 3.8 (3.4-4.8) gm/dL ABG Interpretation ABG results: 05/26/25 05/26/25 05/27/25 01:55 09:34 09:47 ABG pH 7.21 L 7.21 L 7.44 D ABG pCO2 91 H* 89 H* 39 D ABG pO2 108 101 109 H ABG HCO3 36 H 35 H 26 ABG O2 Saturation 95 94 99 H ABG Base Excess 6 H 5 H 2 VBG pH VBG pCO2 VBG pO2 VBG Base Excess 05/28/25 05/28/25 13:09 14:55 ABG pH 7.34 L D ABG pCO2 81 H* D ABG pO2 37 L* D ABG HCO3 43 H ABG O2 Saturation 62 L ABG Base Excess 15 H VBG pH 7.55 VBG pCO2 47 VBG pO2 124 H VBG Base Excess 16 H Quality Measures Quality Measures none Advance care planning discussed with:: patient Medications Home Medications and Allergies Home Medications ?Medication ?Instructions ?Recorded ?Confirmed ?Type methenamine hippurate 1 gram tablet 1 g PO BID 0 05/26/25 History omeprazole 40 mg capsule,delayed 40 mg PO QDAY 1 05/26/25 History release ascorbic acid (vitamin C) 500 mg 500 mg PO BID 4 05/26/25 History tablet (Vitamin C) aspirin 81 mg tablet 81 mg PO QDAY 03/19/2405/26 History calcium 600 mg (as 0.5 tab PO QDAY 12/27/2405/12 History carbonate)-vitamin D3 5 mcg (200 unit) tablet (Calcium 600 + D(3)) hydrocodone 10 mg-acetaminophen 1 tab PO TID PRN pain 12/27/24 05/26/25 History 325 mg tablet lactobacillus comb no.10 20 25,000 mmu cells PO QDAY 0 12/27/24 05/26/25 History billion cell capsule (Probiotic) levothyroxine 100 mcg tablet 100 mcg PO QDAY 02/15/25 05/26/25 History Allergies Allergy/AdvReac Type Severity Reaction Status Date / Time cefuroxime Allergy Intermediate Swelling Verified 05/26/25 00:35 of Lip/Tongue/Throat zinc Allergy Intermediate Rash Verified 05/26/25 00:35 iodine Allergy Unknown Verified 05/26/25 00:35 shellfish derived Allergy Unknown Verified 05/26/25 00:35 Sulfa (Sulfonamide Allergy Unknown Verified 05/26/25 00:35 Antibiotics) Influenza Virus Vaccines Allergy Verified 05/26/25 00:35 Visit Medications Acetaminophen (Acetaminophen 325 Mg Tablet) 650 mg PO Q6H PRN PRN Reason: Fever >101.5 Stop: 06/25/25 02:39 Acetaminophen (Acetaminophen 325 Mg Tablet) 650 mg PO Q6H PRN PRN Reason: PAIN SCALE 1-3 (mild Stop: 06/25/25 02:39 Albuterol/Ipratropium (Albuterol/Ipratropium (Duoneb) Rt Sravani 3 Ml Nebu) 3 ml INH Q4HRRT [facility] Stop: 06/25/25 10:59 Last Admin: 06/01/25 10:27 Dose: 3 ml Aspirin (Aspirin Ec 81 Mg Tabec) 81 mg PO QDAY [facility] Stop: 06/25/25 08:59 Last Admin: 06/01/25 08:50 Dose: 81 mg Atorvastatin Calcium (Atorvastatin Calcium 10 Mg Tablet) 10 mg PO DAILY [facility] Stop: 06/25/25 08:59 Last Admin: 06/01/25 08:50 Dose: 10 mg Budesonide (Budesonide Rt 0.25 Mg/2 Ml Nebu) 0.25 mg INH BIDRT [place] Stop: 06/25/25 09:29 Last Admin: 06/01/25 06:59 Dose: 0.25 mg Dextrose (Dextrose 50%-Water Inj 50 Ml Syringe) 25 ml IV Q15MIN PRN PRN Reason: BG 50-70 responsive npo pt Stop: 06/25/25 13:51 Dextrose (Dextrose 50%-Water Inj 50 Ml Syringe) 50 ml IV Q15MIN PRN PRN Reason: BG <50 OR BG <70 & pt unresponsive Stop: 06/25/25 13:51 Glucagon (Glucagon Inj 1 Mg Vial) 1 mg IM Q15MIN PRN PRN Reason: BG <70, and no IV access Heparin Sodium (Porcine) (Heparin Sod Inj 5000 Unit/Ml Vial) 5,000 unit SC Q8HR [facility] Stop: 06/09/25 05:59 Last Admin: 06/01/25 05:16 Dose: 5,000 unit Piperacillin/Tazobactam/Dextrose (Zosyn) 3.375 g in 50 mls @ 100 mls/hr IV Q12HR [facility]; Protocol Stop: 06/03/25 20:59 Last Admin: 06/01/25 08:49 Dose: 100 mls/hr Insulin Degludec (Insulin Degludec 5 Unit/0.05 Ml (Per 5 Units)) 15 unit SC QDAY [facility] Stop: 06/26/25 08:59 Last Admin: 06/01/25 08:49 Dose: 15 unit Insulin Human Lispro (Insulin Lispro (Admelog) 1 Unit/0.01 Ml Unit) 0 unit SC ACHS [facility]; Protocol Stop: 06/25/25 16:59 Last Admin: 06/01/25 12:06 Dose: 5 unit Insulin Human Lispro (Insulin Lispro (Admelog) 1 Unit/0.01 Ml Unit) 5 unit SC ACHS [facility] Stop: 07/01/25 11:29 Last Admin: 06/01/25 12:08 Dose: 5 unit Levothyroxine Sodium (Levothyroxine Sodium 100 Mcg Tablet) 100 mcg PO ACBR [facility] Stop: 06/25/25 05:59 Last Admin: 06/01/25 05:09 Dose: 100 mcg Methylprednisolone Sodium Succinate (Methylprednisolone Sod Succ 40 Mg/Ml Vial) 40 mg IVP Q8HR [facility] Stop: 06/02/25 09:59 Last Admin: 06/01/25 05:09 Dose: 40 mg Metoprolol Succinate (Metoprolol Succinate Xl 25 Mg Tabcr) 25 mg PO QDAY [facility] Stop: 06/25/25 08:59 Last Admin: 06/01/25 08:50 Dose: 25 mg Ondansetron HCl (Ondansetron Inj 2 Mg/Ml Inj 2 Ml) 4 mg IVP Q6H PRN; Protocol PRN Reason: NAUSEA OR VOMITING Stop: 06/25/25 02:39 Pantoprazole Sodium (Pantoprazole 40 Mg Tablet) 40 mg PO QDAY [facility] Stop: 06/25/25 08:59 Last Admin: 06/01/25 08:49 Dose: 40 mg Pharmacy Consult (Pharmacy Renal Dose Adjustment 1 Ea) 1 each XX PRN PRN PRN Reason: CONSULT Stop: 06/25/25 16:41 Pramipexole Dihydrochloride (Pramipexole 0.25 Mg Tablet) 0.5 mg PO HS [facility] Stop: 06/25/25 20:59 Last Admin: 05/31/25 20:20 Dose: 0.5 mg Sennosides (Senna/Docusate Sod 1 Tab Tablet) 1 tab PO QDAY [facility]; Protocol Stop: 06/25/25 08:59 Last Admin: 06/01/25 08:50 Dose: 1 tab Sodium Chloride (Sodium Chloride Rt Sravani 0.9% 3 Ml Nebu) 6 ml INH PRN PRN PRN Reason: SOLN Stop: 06/25/25 02:12 Last Admin: 05/26/25 02:37 Dose: 6 ml Venlafaxine HCl (Venlafaxine Xr 37.5 Mg Capcr) 150 mg PO QDAY [facility] Stop: 06/25/25 08:59 Last Admin: 06/01/25 08:49 Dose: 150 mg Discontinued Medications Hydrocodone Bitart/Acetaminophen (Hydrocodone/Apap 10/325 Tab) 1 tab PO Q8HR PRN PRN Reason: Pain 4-7 Stop: 05/31/25 03:36 Albuterol/Ipratropium (Albuterol/Ipratropium (Duoneb) Rt Sravani 3 Ml Nebu) 3 ml INH X1 ONE Stop: 05/26/25 00:02 Last Admin: 05/26/25 01:45 Dose: 3 ml Albuterol/Ipratropium (Albuterol/Ipratropium (Duoneb) Rt Sravani 3 Ml Nebu) 3 ml INH X1 ONE Stop: 05/28/25 13:31 Last Admin: 05/28/25 14:12 Dose: 3 ml Dextrose (Dextrose 50%-Water Inj 50 Ml Syringe) 25 ml IV Q15MIN PRN PRN Reason: BG 50-70 responsive npo pt Stop: 06/25/25 03:20 Dextrose (Dextrose 50%-Water Inj 50 Ml Syringe) 50 ml IV Q15MIN PRN PRN Reason: BG <50 OR BG <70 & pt unresponsive Stop: 06/25/25 03:20 Furosemide (Furosemide Inj 10 Mg/Ml 4ml Vial) 40 mg IVP X1 ONE Stop: 05/26/25 02:17 Last Admin: 05/26/25 02:32 Dose: 40 mg Furosemide (Furosemide Inj 10 Mg/Ml Vial 2 Ml) 40 mg IVP QDAY [facility] Stop: 06/26/25 08:59 Last Admin: 05/27/25 08:30 Dose: 40 mg Furosemide (Furosemide Inj 10 Mg/Ml 4ml Vial) 40 mg IVP X1 ONE Stop: 05/26/25 09:41 Last Admin: 05/26/25 11:39 Dose: 40 mg Glucagon (Glucagon Inj 1 Mg Vial) 1 mg IM Q15MIN PRN PRN Reason: BG <70, and no IV access Levofloxacin/Dextrose (Levaquin Ivpb) 500 mg in 100 mls @ 100 mls/hr IV X1 ONE Stop: 05/26/25 02:52 Last Infusion: 05/26/25 03:37 Dose: Infused Magnesium Sulfate (Magnesium Sulfate Ivpb) 2 gm in 50 mls @ 25 mls/hr IV X1 ONE Stop: 05/26/25 04:12 Last Infusion: 05/26/25 04:31 Dose: Infused Piperacillin/Tazobactam/Dextrose (Zosyn) 2.25 gm in 50 mls @ 100 mls/hr IV Q6HR [facility]; Protocol Stop: 06/02/25 03:14 Last Admin: 05/27/25 19:13 Dose: Not Given Piperacillin/Tazobactam/Dextrose (Zosyn) 2.25 gm in 50 mls @ 100 mls/hr IV Q6HR [facility]; Protocol Stop: 06/02/25 05:59 Piperacillin/Tazobactam/Dextrose (Zosyn) 3.375 g in 50 mls @ 100 mls/hr IV Q12HR [facility]; Protocol Stop: 06/02/25 04:56 Last Admin: 05/27/25 08:25 Dose: 100 mls/hr Insulin Degludec (Insulin Degludec 5 Unit/0.05 Ml (Per 5 Units)) 10 unit SC QDAY [facility] Stop: 06/25/25 13:59 Last Admin: 05/26/25 14:52 Dose: 10 unit Insulin Human Lispro (Insulin Lispro (Admelog) 1 Unit/0.01 Ml Unit) 0 unit SC AC [facility]; Protocol Stop: 06/25/25 07:29 Last Admin: 05/26/25 11:26 Dose: 3 unit Insulin Human Lispro (Insulin Lispro (Admelog) 1 Unit/0.01 Ml Unit) 3 unit SC ACHS [facility] Stop: 06/25/25 16:59 Last Admin: 06/01/25 07:53 Dose: 3 unit Insulin Human Lispro (Insulin Lispro (Admelog) 1 Unit/0.01 Ml Unit) 5 unit SC X1 ONE Stop: 05/26/25 18:26 Last Admin: 05/26/25 19:01 Dose: 5 unit Insulin Human Lispro (Insulin Lispro (Admelog) 1 Unit/0.01 Ml Unit) 6 unit SC X1 ONE Stop: 05/29/25 20:18 Last Admin: 05/29/25 20:22 Dose: 6 unit Levalbuterol HCl (Levalbuterol Rt 1.25 Mg/0.5 Ml Nebu) 2.5 mg INH X1 ONE Stop: 05/26/25 02:14 Last Admin: 05/26/25 02:37 Dose: 2.5 mg Methylprednisolone Sodium Succinate (Methylprednisolone Sod Succ 62.5 Mg/Ml 2ml Vial) 125 mg IVP X1 ONE Stop: 05/26/25 00:02 Last Admin: 05/26/25 01:18 Dose: 125 mg Methylprednisolone Sodium Succinate (Methylprednisolone Sod Succ 62.5 Mg/Ml 2ml Vial) 125 mg IVP X1 ONE Stop: 05/26/25 02:14 Last Admin: 05/26/25 02:32 Dose: 125 mg Morphine Sulfate (Morphine Sulf Inj 4 Mg/Ml Vial) 2 mg IV X1 ONE Stop: 05/26/25 02:17 Last Admin: 05/26/25 02:34 Dose: 2 mg Nitroglycerin (Nitroglycerin Oint 2% 1 Inch Packet) 1 inch TOP X1 ONE Stop: 05/26/25 02:17 Last Admin: 05/26/25 02:45 Dose: 1 inch Prednisone (Prednisone 20 Mg Tablet) 20 mg PO DAILY [facility] Stop: 06/25/25 08:59 Last Admin: 05/27/25 19:13 Dose: Not Given Sodium Polystyrene Sulfonate (Sod Polystyrene Sulfon Susp 15 Gm/60 Ml Btl) 15 gm PO X1 ONE Stop: 05/26/25 11:04 Last Admin: 05/26/25 11:25 Dose: 15 gm Sodium Polystyrene Sulfonate (Sod Polystyrene Sulfon Susp 15 Gm/60 Ml Btl) 15 gm PO X1 ONE Stop: 06/01/25 08:20 Last Admin: 06/01/25 08:49 Dose: 15 gm Assessment & Plan Plan Ms. Coffman is a 89-year-old female with past medical history significant for ILD/pulmonary fibrosis, chronic respiratory failure on home O2, HFpEF, bedbound, recurrent MDR UTI, hypothyroidism, right breast cancer status postlumpectomy, type 2 diabetes, GERD, depression, chronic back pain who presented to the ED with hypoxia and urinary retention. ID consulted for further management of patient's hypoxia and leukocytosis. #Multidrug-resistant UTI #History of recurrent multidrug-resistant UTIs Patient currently denies any urinary symptoms. Patient does have a history of recurrent multidrug-resistant UTIs. Patient does not use a Queen at home, however using 1 here in the hospital. Patient most likely will require a voiding trial. Patient can finish her IV Zosyn course tomorrow and be discharged with vaginal estrogen cream. #Polymicrobial bacteremia #Acute on chronic hypoxic Hypercapnic respiratory failure #Pulmonary fibrosis #ILD flare #HFpEF #Pulmonary arterial hypertension #STEVE #Hypothyroidism #Insulin-dependent type 2 diabetes #Hypertension #Esophageal stenosis status post dilatation #Constipation #Depression #GERD #Hyperlipidemia #Chronic back pain #Electrolyte imbalance - Treatment as per primary team Patient's plan and care discussed with my attending, Dr. Winston Irizarry MD PGY-3
--- NOTE | 2025-06-01 14:20 | PD.IDPROG ---
Subjective Subjective Interval history: chf with pulm fibrosis and asb finish zosyn tomorrow (7d) and try vaginal estrogen for recurrent pos urines. w/o sx Exam Vital Signs Temp Pulse Resp BP Pulse Ox O2 Del Method O2 Flow Rate 96.9 F 98 22 H 122/75 96 Nasal Cannula 2 06/01/25 11:50 06/01/25 12:00 06/01/25 11:50 06/01/25 11:50 06/01/25 11:50 06/01/25 11:50 06/01/25 11:50 FiO2 40 06/01/25 06:59 Narrative Exam On O2. exam benign. no hx of estrogen s tumors Objective - Internal Medicine Labs 06/01/25 04:35 06/01/25 13:05 Labs: Laboratory Results - last 24 hr 05/31/25 06/01/25 06/01/25 14:52 04:35 13:05 WBC 14.1 H D RBC 3.99 L Hgb 11.0 L Hct 38.9 MCV 98 MCH 27.6 MCHC 28.3 L RDW Std Deviation 54.0 H Plt Count 238 Neut % (Auto) 88 H Lymph % (Auto) 5 L [place] % (Auto) 5 Eos % (Auto) 0 Baso % (Auto) 0 Neut # (Auto) 12.4 H Lymph # (Auto) 0.6 L [place] # (Auto) 0.7 Eos # (Auto) 0.0 Baso # (Auto) 0.0 Immature Gran # (Auto) 0.45 H Absolute Nucleated RBC 0.00 Immature Gran % 3 H Nucleated RBC % 0 Sodium 140 141 138 Potassium 4.9 5.4 H D 5.2 H Chloride 94 L 95 L 92 L Carbon Dioxide > 40.0 H 39.9 H 37.4 H Anion Gap 6 L 6 L 9 BUN 32 H 25 H 29 H Creatinine 1.1 0.9 1.1 Estim Creat Clear Calc 42.2 L 50.8 L 41.6 L eGFR 48 L > 60 48 L BUN/Creatinine Ratio 29 H 28 H 26 H Glucose 253 H D 219 H 339 H D Calculated Osmolality 295 292 294 Calcium 9.9 10.1 9.7 Corrected Calcium 10.1 10.2 H 9.9 Phosphorus 3.3 3.5 3.5 Magnesium 2.3 Total Bilirubin 0.5 AST 15 ALT 43 Alkaline Phosphatase 49 Total Protein 6.2 Albumin 3.8 3.9 3.8 Globulin 2.3 Albumin/Globulin Ratio 1.7 ABG Interpretation ABG results: 05/26/25 05/26/25 05/27/25 01:55 09:34 09:47 ABG pH 7.21 L 7.21 L 7.44 D ABG pCO2 91 H* 89 H* 39 D ABG pO2 108 101 109 H ABG HCO3 36 H 35 H 26 ABG O2 Saturation 95 94 99 H ABG Base Excess 6 H 5 H 2 VBG pH VBG pCO2 VBG pO2 VBG Base Excess 05/28/25 05/28/25 13:09 14:55 ABG pH 7.34 L D ABG pCO2 81 H* D ABG pO2 37 L* D ABG HCO3 43 H ABG O2 Saturation 62 L ABG Base Excess 15 H VBG pH 7.55 VBG pCO2 47 VBG pO2 124 H VBG Base Excess 16 H Assessment & Plan A&P Narrative try vaginal estrogen cream for urine issue finish zosyn iv tomorrow. wbc may be high from the steroids but you folks check it daily. will try to see briefly friday if still here but ok for home tomorrow after early pm dose of zosyn Time Spent With Patient Time: Total time spent is greater than 50% in coordination of care (as documented) at patient's floor/unit and/or counseling patient:
[2025-06-01 14:55] LABS: Band Neutrophils (Manual) 12 % (0-6); Lymphocytes (Manual) 6 % (20-44); Monocytes (Manual) 4 % (2-9); Neutrophils (Manual) 78 % (50-70)
[2025-06-01 14:57] LABS: Anisocytosis 1+
[2025-06-01 15:23] LABS: Hepatitis C Antibody Non Reactive (Non React)
--- NOTE | 2025-06-01 16:50 | ESCONSULT_ITS ---
RE: SHAN SLAUGHTER : 1935 DATE OF CONSULTATION: 06/01/2025 REFERRING PHYSICIAN: Dr. Wei, REASON FOR CONSULTATION: Hypoxia and leukocytosis. HISTORY OF PRESENT ILLNESS: The patient is an 89 years old has had urine cultures that are positive for some time, she has never tried vaginal estrogen. Vaginal estrogen works quite well in this setting. She never tried it. It is reasonable to try. She has had multiple positive cultures for varied pathogens. She is due to finish her Zosyn tomorrow. This is empiric treatment for both a UTI and for a possible respiratory infection presumptively. I think that is reasonable. She also has pulmonary fibrosis, for which she is on prednisone and is chronically hypoxic. Her caregiver who cares for her at home along with several others on a full-time basis notes that she has few other health problems and she came in due to hypoxia which is somewhat chronic. PAST MEDICAL HISTORY: Include hypertension. PAST SURGICAL HISTORY: Unknown. ALLERGIES: SULFA DRUGS, POSSIBLY OTHER ANTIBIOTICS. MEDICATIONS: She has been down Zosyn for about 6 days so that is probably fine. IMMUNIZATIONS: Last tetanus is not known. She does not take a flu shot every year. She has had 3 COVID vaccines and does not recall pneumococcal vaccine. FAMILY HISTORY: Positive for cancer in her mother of the duodenum. That is an unusual location for cancer, but it is possible. SOCIAL HISTORY: The patient has caregivers at home on a full-time basis. There are a total of 4 of them. She lives at home and is semi-independent but usually has to be brought in when she is having a flare of her pulmonary fibrosis. PHYSICAL EXAMINATION: Benign. A: bacteriuria, possibly asb pulm fibrosis RECOMMENDATIONS: The patient notes no urinary symptoms at this time and she is due to finish her 7d of Zosyn as of tomorrow.She may have some dementia as hx is mostly from the chart and caregiver DT: 14:51:01 TT: 16:13:00 Ref: [id number] - TID: [id number] MTDD
[2025-06-01] MEDS: PRAMIPEXOLE 0.25 MG TABLET 0.5 MG PO (20:24)
[2025-06-01] MEDS: INSULIN LISPRO (AdmeLOG) 1 UNIT/0.01 ML UNIT 10 UNIT SC (22:36)
[2025-06-02] VITALS (12 sets, daily range): BP systolic 139–156; BP diastolic 72–95; PULSE 88–102; RESP 11–34; TEMP 36.3–36.6; O2SAT 92–100
[2025-06-02] MEDS: ALBUTEROL/IPRATROPIUM (Duoneb) RT SOL 3 ML NEBU INH ×4 (03:00→14:22)
[2025-06-02 05:39] LABS: Basophils # (Auto) 0.1 Thou/mm3 (0.0-0.2); Basophils % (Auto) 1 % (0-2.5); Eosinophils # (Auto) 0.0 Thou/mm3 (0.0-0.5); Eosinophils % (Auto) 0 % (0-10); Hematocrit 34.1 % (36.0-46.0); Hemoglobin 9.9 g/dL (12.0-16.0); Immature Granulocytes Auto 0.35 Thou/mm3 (0.00-0.00); Lymphocytes # (Auto) 0.4 Thou/mm3 (1.0-4.8); Lymphocytes % (Auto) 3 % (10-50); Mean Corpuscular HGB Conc 29.0 g/dl (31.0-37.0); Mean Corpuscular Hemoglobin 28.4 pg (25.0-35.0); Mean Corpuscular Volume 98 fL (80-100); Monocytes # (Auto) 0.5 Thou/mm3 (0.0-0.8); Monocytes % (Auto) 4 % (0-12); Neutrophils # (Auto) 11.4 Thou/mm3 (1.8-7.7); Neutrophils % (Auto) 89 % (37-80); Nucleated Red Blood Cell # 0.02 Thou/mm3 (0.00-0.00); Nucleated Red Blood Cell % 0 /100 WBC (0); Platelet Count 211 Thou/mm3 (140-440); RDW Standard Deviation 55.8 fL (36.4-46.3); Red Blood Count 3.49 Miln/mm3 (4.00-5.20); White Blood Count 12.8 Thou/mm3 (3.6-11.0)
[2025-06-02] MEDS: HEPARIN SOD INJ 5000 UNIT/ML VIAL SC ×2 (05:41→13:21)
[2025-06-02] MEDS: LEVOTHYROXINE SODIUM 100 MCG TABLET PO (05:41)
[2025-06-02 05:57] LABS: Alanine Aminotransferase 31 U/L (10-49); Albumin, Serum 3.4 gm/dL (3.4-4.8); Albumin/Globulin Ratio 1.7 (1.2-2.2); Alkaline Phosphatase 47 U/L (46-116); Anion Gap 7 (7-16); Aspartate Amino Transferase 11 U/L (0-34); BUN/Creatinine Ratio 38 Ratio (12-20); Bilirubin,Total 0.4 mg/dL (0.3-1.2); Blood Urea Nitrogen 34 mg/dL (9-23); Calcium 9.7 mg/dL (8.3-10.6); Calcium (Corrected) 10.2 mg/dL (8.5-10.1); Carbon Dioxide > 40.0 mMol/L (20.0-31.0); Chloride 96 mMol/L (98-107); Creatinine (Component) 0.9 mg/dL (0.6-1.3); Estimated Creatinine Clearance 50.8 mL/min (>60); Globulin 2.0 gm/dL (2.3-3.5); Glucose 242 mg/dL (74-106); Magnesium 2.2 mg/dL (1.6-2.6); Osmolality,Calculated 300 (275-295); Phosphorous 3.6 mg/dL (2.4-5.1); Potassium 4.9 mMol/L (3.4-5.1); Sodium 143 mMol/L (136-145); Total Protein 5.4 gm/dL (5.7-8.2); eGFR > 60 See Note
[2025-06-02] MEDS: BUDESONIDE RT 0.25 MG/2 ML NEBU INH (07:06)
[2025-06-02] MEDS: INSULIN LISPRO (AdmeLOG) 1 UNIT/0.01 ML UNIT SC ×2 (07:23→11:39)
[2025-06-02] MEDS: INSULIN LISPRO (AdmeLOG) 1 UNIT/0.01 ML UNIT 5 UNIT SC (07:24)
[2025-06-02] MEDS: ATORVASTATIN CALCIUM 10 MG TABLET PO (08:01)
[2025-06-02] MEDS: METOPROLOL SUCCINATE XL 25 MG TABCR PO (08:01)
[2025-06-02] MEDS: PANTOPRAZOLE 40 MG TABLET PO (08:01)
[2025-06-02] MEDS: INSULIN DEGLUDEC 5 UNIT/0.05 ML (PER 5 UNITS) 15 UNIT SC (08:04)
[2025-06-02] MEDS: PIPER/TAZO 3.375 GM PREMIX 3.375 G/50 ML BAG IV (08:04)
[2025-06-02] MEDS: ASPIRIN EC 81 MG TABEC PO (08:04)
[2025-06-02] MEDS: VENLAFAXINE XR 37.5 MG CAPCR 150 MG PO (08:04)
[2025-06-02] MEDS: SENNA/DOCUSATE SOD 1 TAB TABLET PO (08:04)
[2025-06-02] MEDS: INSULIN DEGLUDEC 5 UNIT/0.05 ML (PER 5 UNITS) 30 UNIT SC (08:23)
--- NOTE | 2025-06-02 08:55 | ESDS_ITS ---
<Statement entered by Jim Gomez MD - 06/02/25 15:54> I saw and examined patient personally and supervised PGY 1 resident, Dr. Casey with formulating a management plan. I agree with the documentation with the exceptions as listed below. Patient was admitted for acute on chronic respiratory failure with hypoxia and hypercarbia secondary to ILD flare. She was treated with Zosyn IV along with medical prednisone 40 mg IV Q8 hourly after which her condition improved. Infectious disease, Dr. Montero was also consulted who agreed with a 7-day course of Zosyn IV which was completed on 06/02. She will be discharged on a 5 months taper of prednisone which is not to be discontinued unless discussion with air export logistics manager, Dr. Jerez. She was also started on vaginal estrogen for prevention of frequent UTIs. At this point all patient's labs are returning to her baseline. She is clinically stable for discharge to home with home health. Plan of care discussed with Attending Dr. Brayan Gomez MD PGY 2 Disclaimer: This note was dictated by speech recognition. Minor errors in engineer gas pumping station may be present due to voice recognition software. Planned Discharge Date 06/02/25 DS: Providers Provider Date of admission: 05/26/25 02:40 Primary care physician: Physician No Primary/Family Admitting Provider: German Benitez MD Attending Provider on Admission: Allan Schmidt MD Consults: 05/26/25 02:13 Referral Respiratory Therapy Stat Comment: BiPAP 05/26/25 11:03 Referral Hospice Stat Comment: 05/28/25 10:30 Referral Hospice Routine Comment: 05/31/25 08:07 Consult to Pulmonology Routine Comment: ILD Consulting Provider: Justin Jerez I 05/31/25 10:42 Consult to Infectious Diseases Routine Comment: Bacteremia recs Consulting Provider: Walter Montero Attending Provider on DC: Allan Schmidt MD Discharging Provider: Allan Schmidt MD DS: Diagnosis Problem List Completed Was Problem List Reviewed/Reconciled?: Yes Hospital Course Hospital Course Hospital course: Ms. Coffman is an 89 y/o female with PMHx of ILD/pulmonary fibrosis, chronic respiratory failure on 2 L home oxygen and BiPAP, HFpEF, bedbound, recurrent MDR UTI, hypothyroidism, right breast cancer s/p lumpectomy, T2DM, GERD, depression, chronic back pain, known for recurrent admission for hypoxic hypercapnic respiratory failure presenting to the ED with hypoxia and urinary retention. Admitted for AHRF and MDR UTI. In the ED patient was tachycardic HR 97-103, tachypnic RR 20-30s and normotensive to hypertensive BP 120-140s/50-60s, she was hypoxic to 90% and started on 4L BiPAP. Labs were consistent with CKD and chronic hypoxia with hypercapnic respiratory failure, hyperkalemia K 5.2, bicarb 35, BUN 36, Cr 1.3, BUN/Cr 28, eGFR 39, glucose 195. Lactic acid WNL. CRP 5.7, BNP 810. UA 1+ blood, +LE, 10 RBC, 55 WBC, 1+ bacteria. yeast. EKG sinus tachy cardic 101, QTc 444. CXR poor visualization, perihilar vascular congestion Given methylpred 125 mg IV x2, Duoneb, Levofloxacin, Mg sulfate, LAsix 40 mg IV, Morphine 2 mg IV,m Levalbuterol 2.5 mg, nitroglycerin topical. In the hospital her acute hypoxia with hypercapnia and possible superimposed bacterial infection was managed with IV antibiotics zosyn, chest PT, duonebs, Bipap and methylprednisone. Grab Jack Worker was consulted who provided steroid taper plan. 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 Her initial blood cultures came back positive for GPCs and GNRs and repeat blood cultures came back with no growth. ID was consulted who recommended completion of IV zosyn over the course of 7 days and vaginal estrogen for recurrent UTIs. Today patient is AOx3 appears to be back baseline with mentation, breathing and is deemed safe to discharge home back with 24 hour care that she has. Discharge Instructions: You have been started on a steroid for your ILD flare. Take as instructed. - Continue the rest of your medications as listed below - Let your Primary care doctor contact Drill Foreman, Dr. Jerez before changing your steroid dose. [ ] - Follow up with your primary care physician within 1 week of discharge. If you do not have a primary care physician, please follow up with the [facility] Residents clinic ([phone]) ? If you experience any new, worsening or persistent symptoms either call your primary doctor, or dial 911 or present to the emergency department. #Polymicrobial Bacteremia #Acute on chronic hypoxic hypercapnic respiratory failure #Pulmonary fibrosis #ILD flare with possible superimposed bacterial infection #UTI #HFpEF EF 65% #Pulmonary Arterial Hypertension #STEVE #Hypothyroidism #Insulin-dependent T2DM #Hypertension #Esophageal stenosis s/p dilation #Chronic constipation #Depression #GERD #HLD #Chronic back pain #Hyperkalemia Patient's plan and care discussed with my attending, Dr. Schmidt, and supervising resident MD Brett Russ MD Internal Medicine PGY-1 Status at Discharge Functional status at discharge: bed bound Overall status at discharge: patient is back to baseline Time Spent with Patient Time attestation: Total time spent providing and/or coordinating discharge services: Time spent: Greater than 30 minutes Exam Vital Signs Temp Pulse Resp BP Pulse Ox O2 Del Method O2 Flow Rate 97.3 F 102 H 15 154/79 H 93 L Nasal Cannula 3 06/02/25 07:40 06/02/25 08:01 06/02/25 07:40 06/02/25 08:01 06/02/25 07:40 06/02/25 07:40 06/02/25 07:07 FiO2 35 06/02/25 03:34 Narrative Exam General: Lying in bed, no acute distress. hand twitching, able to follow some commands, easily distractable. Eye: PERRL, EOMI, normal conjunctiva, no scleral icterus HENT: Normocephalic, atraumatic Neck: Supple, non-tender Lungs: dry cough on exam, very poor inspiratory effort, minimal lung sounds auscultated. Heart: Normal S1 and S2, no S3 or S4 appreciated. Abdomen: Soft, non-tender, non-distended, normal bowel sounds. Musculoskeletal: Unable to assess as patient was minimally responsive. Trace pretibial edema Skin: Skin is warm, dry, no rashes or lesions. Neurologic: Alert, awake, unable to assess orientation. No focal neuro deficits. Discharge Plan Plan Patient Disposition: HOME (Self Care) Care Plan Goals: - You have been started on a steroid for your ILD flare. Take as instructed. - We have increased your long acting insulin to 30 units per day - You have been started on vaginal estrogen for your frequent UTI. Take as directed - Continue the rest of your medications as listed below - Let your Primary care doctor contact Drill Foreman, Dr. Jerez before changing your steroid dose. [ ] - Follow up with your primary care physician within 1 week of discharge. If you do not have a primary care physician, please follow up with the [facility] Residents clinic ([phone]) ? If you experience any new, worsening or persistent symptoms either call your primary doctor, or dial 911 or present to the emergency department. Prescriptions/Referrals Prescriptions/Med Rec: New prednisone 10 mg tablet See Taper PO QDAY Qty: 375 0RF Taper: Prednisone Taper 30 mg TWICE A DAY for 30 Days and 0 Hour 30 mg DAILY for 30 Days and 0 Hour 20 mg DAILY for 30 Days and 0 Hour 10 mg DAILY for 30 Days 5 mg DAILY for 30 Days Premarin 0.625 mg/gram cream 1 mg topical .3 times weekly 30 Days Qty: 30 0RF (DME) pen needle, diabetic [Advocate Pen Needle] 31 gauge x 3/16 needle See Rx Instructions .Route Qty: 1200 0RF Rx Instructions: As directed Continued insulin lispro 100 unit/mL solution 6 unit subcut TID 30 Days Qty: 10 1RF Rx Instructions: Inject 6 units subcutaneously three times daily with meals insulin aspart U-100 [Novolog FlexPen U-100 Insulin] 100 unit/mL (3 mL) insulin pen 1 sliding scale dose subcut USEASDIRECTD PRN (Reason: hyperglycemia) Qty: 15 0RF Rx Instructions: Take insulin as per sliding scale pramipexole 1 mg tablet 1 mg PO QHS Qty: 30 2RF venlafaxine 150 mg capsule,extended release 24hr 150 mg PO QDAY Qty: 30 2RF metoprolol succinate 25 mg tablet extended release 24 hr 25 mg PO QDAY Qty: 30 2RF (DME) insulin syringes (disposable) 1 mL syringe See Rx Instructions .Route Qty: 500 0RF Rx Instructions: As directed (DME) pen needle, diabetic [1st Tier Unifine Pentips] 31 gauge x 1/4 needle See Rx Instructions .Route Qty: 100 0RF Rx Instructions: As directed (DME) pen needle, diabetic [Comfort EZ Pen Gilmore] 31 gauge x 1/4 needle See Rx Instructions .Route Qty: 100 2RF Rx Instructions: As directed rosuvastatin 5 mg tablet 5 mg PO HS 30 Days Qty: 30 2RF methenamine hippurate 1 gram tablet 1 g PO BID Patient Comments: TAKE 1 TABLET BY MOUTH TWICE A DAY WITH 500 MG OF VITAMIN C Rx Instructions: TAKE 1 TABLET BY MOUTH TWICE A DAY WITH 500 MG OF VITAMIN C omeprazole 40 mg Capsule,Delayed Release(Dr/Ec) 40 mg PO QDAY aspirin 81 mg Tablet 81 mg PO QDAY ascorbic acid (vitamin C) [Vitamin C] 500 mg Tablet 500 mg PO BID levothyroxine 100 mcg tablet 100 mcg PO QDAY hydrocodone-acetaminophen 10-325 mg tablet 1 tab PO TID PRN (Reason: pain) Probiotic 20 billion cell capsule 25,000 mmu cells PO QDAY Rx Instructions: administer with a meal calcium carbonate-vitamin D3 [Calcium 600 + D(3)] 600 mg-5 mcg (200 unit) tablet 0.5 tab PO QDAY Changed insulin glargine [Lantus Solostar U-100 Insulin] 100 unit/mL (3 mL) insulin pen 30 unit subcut QAM 30 Days Qty: 15 0RF Discontinued insulin lispro 200 unit/mL (3 mL) insulin pen 1 sliding scale dose subcut USEASDIRECTD Qty: 6 0RF pramipexole 0.5 mg tablet 1 mg PO HS 30 Days Qty: 60 1RF Azo Cranberry 250 mg tablet,chewable 500 mg PO QDAY furosemide 40 mg tablet 40 mg PO QAM Patient Comments: TAKE 1 TABLET BY MOUTH EVERY DAY IN THE MORNING acetazolamide 250 mg Tablet 250 mg PO BID Qty: 60 0RF Magnesium Complex 300 mg magnesium tablet 80.5 mg PO QDAY metformin 500 mg tablet 1,000 mg PO BID cranberry 500 mg capsule 1,000 mg PO QDAY Rx Instructions: administer with a meal Referrals: [facility] [Outside] Justin Jerez MD [Physician, Critical Care] No Primary/Family,Physician [Primary Care Provider] Patient/Caregiver Discharge Instructions Other Discharge Activity Instructions:: You have been started on a steroid for your ILD flare. Take as instructed. - We have increased your long acting insulin to 30 units per day - You have been started on vaginal estrogen for your frequent UTI. Take as directed - Continue the rest of your medications as listed below - Let your Primary care doctor contact Drill Foreman, Dr. Jerez before changing your steroid dose. [ ] - Follow up with your primary care physician within 1 week of discharge. If you do not have a primary care physician, please follow up with the [facility] Residents clinic ([phone]) ? If you experience any new, worsening or persistent symptoms either call your primary doctor, or dial 911 or present to the emergency department. Education Materials: Interstitial Lung Disease Print Language: Romansh Stand Alone Forms: [employer] Award Info., Patient Portal Info Letter Discharge Order Discharge Orders: Discharge (Routine); Ordered 06/02/25 Ordered By: Jim Gomez Quality Discharge Quality Measures VTE prophylaxis Attestestation MD Attestation I have examined the patient, reviewed labs and imaging findings, discussed the case with the resident(s), and reviewed entered orders. I agree with the plan of care as outlined in this note. Time Spent: [address] Brayan MD
--- NOTE | 2025-06-02 11:09 | PC.SS ---
SS follow up note; SS contacted patient's nephew, Jg in regards to transportation. He informed SS at the time he is not able to cover transportation. SS made him aware that [facility] will cover transportation, however to be aware that patient does not have Transportation coverage. Jg verbalized understanding. Patient contacted [employer] and they informed SS they will contact SS with ETA. SS updated patients nurse.
[2025-06-02] MEDS: INSULIN LISPRO (AdmeLOG) 1 UNIT/0.01 ML UNIT 10 UNIT SC (11:38)
[2025-06-02] MEDS: ESTROGENS,CONJ VAG CR 30 GM TUBE VAGINAL (13:20)
--- NOTE | 2025-06-02 18:47 | PC.CC ---
Addendum entered by Júnior Paula RN 06/02/25 19:21: [facility] accepted and booked, soc pending Original Note: hh ref sent to [facility], waiting for response
== END 2025-06-02 16:06 | disposition home health service (06) | DRG 196 ==
LOC: SERX 05-26 02:50 → SERHOLD 05-26 02:52 → S3NX 05-26 06:02 → S2NX 05-26 18:09 → S3SX 05-30 21:23 → S2NX 05-30 21:38 → S3NX 05-30 22:37
PROVIDERS: Internal Medicine Infectious Disease; Admitting Provider Internal Medicine; Emergency Provider Emergency Medicine; Visit Provider Student in an Organized Health Care Education/Training Program
DX: J84.10 Pulmonary fibrosis, unspecified (principal); J15.9 Unspecified bacterial pneumonia; J96.22 Acute and chronic respiratory failure with hypercapnia; J96.21 Acute and chronic respiratory failure with hypoxia; I50.32 Chronic diastolic (congestive) heart failure; Z16.24 Resistance to multiple antibiotics; N17.9 Acute kidney failure, unspecified; I13.0 Hypertensive heart and chronic kidney disease with heart failure and stage 1 through stage 4 chronic kidney disease, or unspecified chronic kidney disease; E87.3 Alkalosis; N39.0 Urinary tract infection, site not specified; Z99.81 Dependence on supplemental oxygen; Z85.3 Personal history of malignant neoplasm of breast; Z74.01 Bed confinement status; Z87.440 Personal history of urinary (tract) infections; E03.9 Hypothyroidism, unspecified; E11.9 Type 2 diabetes mellitus without complications; K21.9 Gastro-esophageal reflux disease without esophagitis; F32.A Depression, unspecified; M54.9 Dorsalgia, unspecified; G89.29 Other chronic pain; I27.21 Secondary pulmonary arterial hypertension; E87.5 Hyperkalemia; E11.22 Type 2 diabetes mellitus with diabetic chronic kidney disease; K22.2 Esophageal obstruction; N18.9 Chronic kidney disease, unspecified; Z51.5 Encounter for palliative care; E78.5 Hyperlipidemia, unspecified; Z66 Do not resuscitate; Z79.4 Long term (current) use of insulin; Z79.82 Long term (current) use of aspirin; Z79.84 Long term (current) use of oral hypoglycemic drugs; Z79.890 Hormone replacement therapy; Z79.899 Other long term (current) drug therapy; B96.5 Pseudomonas (aeruginosa) (mallei) (pseudomallei) as the cause of diseases classified elsewhere
CPT/HCPCS: 36415; 36600; 71045; 80048; 80053; 80069; 81001; 82150; 82248; 82803; 83036; 83605; 83690; 83735; 83880; 84100; 84145; 84443; 84484; 85025; 85379; 85652; 86140; 86803; 87040; 87077; 87081; 87086; 87186; 87502; 87811; 93005; 93225; 93970; 94640; 94660; 96365; 96366; 96372; 96375; 96376; 99285; A9270; J1644; J1815; J1938; J1956; J2270; J2543; J2919; J3475

== ENCOUNTER 2025-06-08 14:00 | Outpatient (AMB) | payer MEDICARE, SELFPAY ==
--- NOTE | 2025-06-08 14:33 | ACNOTE_ITS ---
Allergies/Meds Allergies & Medications Allergies cefuroxime Allergy (Intermediate, Verified 06/08/25 14:34) Swelling of Lip/Tongue/Throat zinc Allergy (Intermediate, Verified 06/08/25 14:34) Rash iodine Allergy (Unknown, Verified 06/08/25 14:34) shellfish derived Allergy (Unknown, Verified 06/08/25 14:34) Sulfa (Sulfonamide Antibiotics) Allergy (Unknown, Verified 06/08/25 14:34) Influenza Virus Vaccines Allergy (Verified 06/08/25 14:34) Medication Reconciliation methenamine hippurate 1 gram tablet 1 g PO BID 04/18/20 [History Confirmed 06/08/25] omeprazole 40 mg capsule,delayed release 40 mg PO QDAY 06/04/21 [History Confirmed 06/08/25] ascorbic acid (vitamin C) 500 mg tablet (Vitamin C) 500 mg PO BID 03/19/24 [History Confirmed 06/08/25] aspirin 81 mg tablet 81 mg PO QDAY 03/19/24 [History Confirmed 06/08/25] calcium 600 mg (as carbonate)-vitamin D3 5 mcg (200 unit) tablet (Calcium 600 + D(3)) 0.5 tab PO QDAY 12/27/24 [History Confirmed 06/08/25] hydrocodone 10 mg-acetaminophen 325 mg tablet 1 tab PO TID PRN pain 12/27/24 [History Confirmed 06/08/25] lactobacillus comb no.10 20 billion cell capsule (Probiotic) 25,000 mmu cells PO QDAY 12/27/24 [History Confirmed 06/08/25] levothyroxine 100 mcg tablet 100 mcg PO QDAY 02/15/25 [History Confirmed 06/08/25] rosuvastatin 5 mg tablet 5 mg PO HS 1 month #30 tabs 04/14/25 [Rx Confirmed 06/08/25] insulin aspart U-100 100 unit/mL (3 mL) subcutaneous pen (Novolog FlexPen U-100 Insulin aspart) 1 sliding scale dose subcut USEASDIRECTD PRN hyperglycemia #15 mL 05/04/25 [Rx Confirmed 06/08/25] metoprolol succinate 25 mg tablet,extended release 24 hr 25 mg PO QDAY #30 tabs 05/04/25 [Rx Confirmed 06/08/25] pramipexole 1 mg tablet 1 mg PO QHS #30 tabs 05/04/25 [Rx Confirmed 06/08/25] venlafaxine 150 mg capsule,extended release 24 hr 150 mg PO QDAY #30 caps 05/04/25 [Rx Confirmed 06/08/25] insulin syringes (disposable) 1 mL #500 ea 05/25/25 [Rx Confirmed 06/08/25] pen needle, diabetic 31 gauge x 1/4 (1st Tier Unifine Pentips) #100 ea 05/25/25 [Rx Confirmed 06/08/25] pen needle, diabetic 31 gauge x 1/4 (Comfort EZ Pen [place]) #100 ea 05/25/25 [Rx Confirmed 06/08/25] pen needle, diabetic 31 gauge x 3/16 (Advocate Pen Needle) #1,200 ea 06/02/25 [Rx Confirmed 06/08/25] prednisone 10 mg tablet See Taper PO QDAY #375 tabs 06/02/25 [Rx Confirmed 06/08/25] conjugated estrogens 0.625 mg/gram vaginal cream (Premarin) 1 mg topical .3 times weekly 1 month #30 grams 06/08/25 [Rx] hydroxyzine HCl 25 mg tablet 25 mg PO Q6HR PRN anxiety #120 tabs 06/08/25 [Rx] insulin glargine 100 unit/mL (3 mL) subcutaneous pen (Lantus Solostar U-100 Insulin) 35 unit (0.35 mL) subcut QAM 1 month #10.5 mL 06/08/25 [Rx] insulin lispro 100 unit/mL subcutaneous solution 8 unit (0.08 mL) subcut TID 1 month #7.2 mL 06/08/25 [Rx] metformin 500 mg tablet 500 mg PO BID #60 tabs 06/08/25 [Rx] MA Intake Visit Data Collection New Patient or Established: Established Patient (seen at [facility] within 3 years) PCP or OBGYN visit in last 3 months: Yes Smoking Status Smoking Status: Never smoker For Televisit only Telemed Video/Phone Visit: Yes Verbal consent obtained for Telemed visit?: Yes Verbal Consent witness name: Ene Telemed Video/Phone visit w/Clinical Staff: 21-30 min Immunization / Flu Flu Vaccine in the Last 12 Months: No Flu Vaccine Exclusion Criteria: Refused by Patient Past Medical History Past Medical History NEUROLOGIC: Negative Neurological Disorders, Cerebrovascular Accident, Transient Ischemic Attacks (TIA), Dementia, Alzheimer's Disease, Parkinson's Disease, Brain Tumor, Meningitis, Seizures, Epilepsy, Multiple Sclerosis, Cerebral Palsy, Amyotrophic Lateral Sclerosis (ALS/Dee Gehrig's), Guillain-[place] Syndrome, Spina Bifida, Paralysis, Peripheral Neuropathy, Salcido's Palsy, Subdural Hematoma, Migraine, Head Trauma, Spinal Cord Injury or Traumatic Brain Injury CARDIAC: Positive Cardiac Disorders, Coronary Artery Disease, Hypercholesterolemia, Congestive Heart Failure and Hypertension; Negative Myocardial Infarction, Cardiac Arrhythmia, Atrial Fibrillation, Angina, Heart Murmur, Atherosclerotic Heart Disease, Peripheral Vascular Disease, Aneurysm, Congenital Heart Disease, Valvular Heart Disease, Rheumatic Fever, Cardiomyopathy, Edema, Pericarditis, Cellulitis, Deep Vein Thrombosis, Hypotension or Varicose Veins RESPIRATORY: Positive Asthma, Pneumonia, Pulmonary Fibrosis and Sleep Apnea; Negative Chronic Obstructive Pulmonary Disease (COPD), Bronchitis, Emphysema, Cystic Fibrosis, Tuberculosis, Pulmonary Embolism or Pulmonary Edema GASTROINTESTINAL: Positive Gastrointestinal Disorders, Gall Bladder Disease, Gastroesophageal Reflux Disease and Obesity; Negative Hepatitis, Cirrhosis, Pancreatitis, Celiac Disease, Gastrointestinal Bleed, Esophageal Varices, White's Esophagus, Colitis, Ulcerative Colitis, Diverticulitis, Diverticulosis, Ulcer, Colorectal Cancer, Irritable Bowel, Crohn's Disease, Obstructive Bowel, Hiatal Hernia or Hemorrhoids GENITOURINARY: Positive Genitourinary Disorders and Kidney Stones; Negative Renal Disease, Polycystic Kidney Disease, Neurogenic Bladder, Inguinal Hernia, Dialysis, Prostate Cancer or Benign Prostatic Hyperplasia REPRODUCTIVE: Positive Breast Cancer; Negative Endometriosis, Genital Herpes, Gonorrhea, Pelvic Inflammatory Disease, Previous Pregnancies, Syphilis, Testicular Cancer or Uterine Prolapse MUSCULOSKELETAL: Positive Arthritis and Fractures; Negative Muscular Dystrophy, Myasthenia Gravis, Marfan's Syndrome, Bone Cancer, Rheumatoid Arthritis, Osteoporosis, Degenerative Disk Disease, Gout, Scoliosis, Carpal Tunnel Syndrome, Fibromyalgia, Degenerative Joint Disease, Osteomyelitis or Poliovirus ENT: Negative Cataracts, Glaucoma, Blind, Retinal Detachment, Macular Degeneration, Ear Infection, Deafness, Head Trauma or Eye Prosthesis ENDOCRINE: Positive Endocrine Disorders, Diabetes Mellitus Type 2 and Hypothyroidism; Negative Diabetes Mellitus Type 1, Hypoglycemia, Remington's Syndrome, Traill's Disease, Hyperthyroidism, Parathyroid Disease, Pituitary Disease, Systemic Lupus Erythematosus, Syndrome of Inappropriate Antidiuretic Hormone (SIADH), Adrenal Disease or Graves' Disease HEMATOLOGIC: Negative Blood Disorders, Anemia, Leukemia, Hemophilia, Thalassemia, Sickle Cell Disease or Clotting Problems PSYCHO/SOCIAL: Positive Depression and Anxiety; Negative Psychiatric Problems, Schizophrenia, Recreational Drug Use, Bipolar Disorder, Behavior Problems, Self-Mutilation, Attention Deficit Disorder, Attention Deficit Hyperactivity Disorder, Depression, Post Traumatic Stress Disorder or Eating Disorder OTHER HISTORY: Positive Cancer and Breast Cancer; Negative Hospitalization, Down Syndrome, Autism, Developmental Delay, Shingles, Falls, Blood Transfusions, Blood Transfusion Reaction, Anesthesia Reactions, Organ Transplant, Chemotherapy, Radiation Therapy, Hyperbaric Therapy, MRSA, VRSA, Vancomycin-Resistant Enterococci, Human Immunodeficiency Virus (HIV), Chicken Pox, Measles, Mumps, Rubella (Malagasy Measles), Pertussis, Clostridium Difficile, Cervical Cancer, Colorectal Cancer, Lung Cancer, Ovarian Cancer, Prostate Cancer or Testicular Cancer Family History FAMILY HISTORY: Positive Family Cardiac Disorders and Family Cancer; Negative Family Psychiatric Problems, Family Respiratory Disorders, Family Gastrointestinal Problems, Family Surgery or Family Anesthesia Reaction Surgical History SURGICAL: Positive Tonsillectomy, Abdominal Surgery and Lumpectomy; Negative Cardiac Surgery, Open Heart Surgery, Coronary Artery Bypass Graft, Valve Replacement, Vascular Surgery, Coronary Stent, Cardiac Catheterization, Pacemaker, Angiogram, Auto Implanted Cardiovert Defib, Carotid Endarterectomy, Endocrine Surgery, Thyroidectomy, Ear Surgery, Tympanostomy Tube, Eye Surgery, Nose Surgery, Oral Surgery, Adenoidectomy, Cochlear Implant, Corneal Transplant, Throat Surgery, Tracheostomy, Gastric Bypass Surgery, Gastrostomy, Bowel Surgery, Nephrectomy, Transurethral Resection, Joint Replacement, Amputation, Open Reduction Internal Fixation, Arthroscopy, Neurologic Surgery, Brain Shunt, Mastectomy, Hysterectomy, Tubal Ligation, Section or Organ Transplant Social History SMOKING STATUS: Smoking status: Never smoker SECOND HAND EXPOSURE: second hand exposure: No ALCOHOL: Alcohol Intake: Never ALCOHOL FREQUENCY: Alcohol Intake Frequency: holidays/special occasions only HOUSING: Housing: House LIVES WITH: Lives With: Family Patient Portal Questionaires Social History Living Situation History Housing: House Housing Other:: Patient resides at home with her caregivers. Tobacco History Smoking Status: Never smoker Second Hand Smoke Exposure: No Alcohol History Alcohol Intake: Never Alcohol Intake Frequency: holidays/special occasions only Review of Systems Report any current symptoms Only answer those that you have currently: Past Medical History Past Medical History Have you ever been diagnosed with any of the following: Neurological Problems Cerebrovascular Accident (CVA): No Transient Ischemic Attacks (TIA): No Dementia: No Alzheimer's Disease: No Parkinson's Disease: No Brain Tumor: No Meningitis: No Seizures: No Epilepsy: No Multiple Sclerosis: No Cerebral Palsy: No Amyotrophic Lateral Sclerosis (ALS/Dee Gehrig's): No Guillain-[place] Syndrome: No Spina Bifida: No Paralysis: No Peripheral Neuropathy: No Salcido's Palsy: No Subdural Hematoma: No Migraine: No Head Trauma: No Spinal Cord Injury: No Traumatic Brain Injury: No Cardiology Problems Myocardial Infarction: No Cardiac Arrhythmia: No Atrial Fibrillation: No Angina: No Heart Murmur: No Coronary Artery Disease: Yes Atherosclerotic Heart Disease: No Peripheral Vascular Disease: No Hypercholesterolemia: Yes Aneurysm: No Congestive Heart Failure: Yes Congenital Heart Disease: No Valvular Heart Disease: No Rheumatic Fever: No Cardiomyopathy: No Edema: No Pericarditis: No Cellulitis: No Deep Vein Thrombosis: No Hypertension: Yes Hypotension: No Varicose Veins: No Respiratory Problems Chronic Obstructive Pulmonary Disease (COPD): No Asthma: Yes Bronchitis: No Emphysema: No Pneumonia: Yes Pulmonary Fibrosis: Yes Tuberculosis: No Pulmonary Embolism: No Pulmonary Edema: No Sleep Apnea: Yes Stomache/Intestinal Problems Hepatitis: No Cirrhosis: No Pancreatitis: No Celiac Disease: No Gall Bladder Disease: Yes Gastrointestinal Bleed: No Esophageal Varices: No White's Esophagus: No Colitis: No Ulcerative Colitis: No Diverticulitis: No Diverticulosis: No Ulcer: No Colorectal Cancer: No Irritable Bowel: No Crohn's Disease: No Obstructive Bowel: No Hiatal Hernia: No Hemorrhoids: No Gastroesophageal Reflux Disease: Yes Obesity: Yes Genital/Urinary Problems Renal Disease: No Kidney Stones: Yes Polycystic Kidney Disease: No Neurogenic Bladder: No Inguinal Hernia: No Dialysis: No Reproductive Problems Breast Cancer: Yes Endometriosis: No Genital Herpes: No Gonorrhea: No Pelvic Inflammatory Disease: No Previous Pregnancies: No Syphilis: No Uterine Prolapse: No Musculoskeletal Problems Muscular Dystrophy: No Myasthenia Gravis: No Marfan's Syndrome: No Bone Cancer: No Arthritis: Yes Rheumatoid Arthritis: No Osteoporosis: No Degenerative Disk Disease: No Gout: No Scoliosis: No Carpal Tunnel Syndrome: No Fibromyalgia: No Fractures: Yes Degenerative Joint Disease: No Osteomyelitis: No Poliovirus: No Head,Eye,Nose,Throat Problems Cataracts: No Glaucoma: No Blind: No Retinal Detachment: No Macular Degeneration: No Chronic Ear Infections: No Deafness: No Eye Prosthesis: No Endocrine Problems Diabetes Mellitus Type 1: No Diabetes Mellitus Type 2: Yes Hypoglycemia: No Remington's Syndrome: No Traill's Disease: No Hyperthyroidism: No Hypothyroidism: Yes Parathyroid Disease: No Pituitary Disease: No Systemic Lupus Erythematosus: No Syndrome of Inappropriate Antidiuretic Hormone: No Adrenal Disease: No Graves' Disease: No Blood Problems Anemia: No Leukemia: No Hemophilia: No Thalassemia: No Sickle Cell Disease: No Clotting Problems: No Psychologic Problems Schizophrenia: No Recreational Drug Use: No Bipolar Disorder: No Depression: Yes Anxiety: Yes Behavior Problems: No Self-Mutilation: No Attention Deficit Disorder: No Attention Deficit Hyperactivity Disorder: No Depression: No Post Traumatic Stress Disorder: No Eating Disorder: No Other Problems Hospitalization: No Down Syndrome: No Autism: No Developmental Delay: No Shingles: No Falls: No Blood Transfusions: No Blood Transfusion Reaction: No Anesthesia Reactions: No Organ Transplant: No Chemotherapy: No Radiation Therapy: No Hyperbaric Therapy: No MRSA: No VRSA: No Vancomycin-Resistant Enterococci: No Human Immunodeficiency Virus (HIV): No Chicken Pox: No Measles: No Mumps: No Rubella (Malagasy Measles): No Pertussis: No Clostridium Difficile: No Cancer: Yes Cervical Cancer: No Lung Cancer: No Ovarian Cancer: No Surgical History Carotid Endarterectomy: No Coronary Artery Bypass Graft: No Valve Replacement: No Hysterectomy: No Pacemaker: No Thyroidectomy: No History of Present Illness HPI Narrative 89-year-old female with ILD-related chronic respiratory failure and multiple comorbidities, currently stable post-hospitalization but with uncontrolled steroid-induced hyperglycemia and anxiety. Patient seen today via telehealth with caregiver present. Caregiver reports patient?s breathing has significantly improved since discharge. She is on 2 L nasal cannula continuously. No fevers, chills, or productive cough. Mild shortness of breath occurs after meals but resolves with rest. She remains on prednisone 60 mg daily per taper plan; appetite increased but otherwise tolerating steroids. Blood sugars have been persistently 300?400 mg/dL. She is taking glargine 30 U QAM and lispro 6 U TID + sliding scale. Metformin was discontinued in hospital for STEVE; caregiver reports no known kidney problems. Pharmacy did not fill Premarin cream due to authorization issue. Caregiver also notes increased anxiety and skin-picking since discharge. She is on venlafaxine 150 mg daily, which has not been effective. No hallucinations or manic symptoms. Home health is active, checks vitals, and can draw labs as needed. Mentation and alertness improved compared to pre-admission. Eating well, adequate hydration, good caregiver support. Review of Systems Review of Systems Narrative Review of Systems: Negative unless stated above Objective/Exam Narrative Physical exam: (limited due to tele-visit) Patient alert, speaking full sentences, no acute distress. Breathing non-labored on 2 L O2. No visible cyanosis or accessory muscle use. Mentation appropriate per caregiver report. Assessment & Plan Diagnosis / Problem List (1) Type 2 diabetes mellitus: Status: Acute Qualifiers: Diabetes mellitus complication status: with hyperglycemia Diabetes mellitus box sealing machine feeder insulin use: without box sealing machine feeder use Qualified Code(s): E11.65 - Type 2 diabetes mellitus with hyperglycemia Assessment & Plan: The patient?s blood sugars have been consistently high (300?400 mg/dL), likely due to prednisone therapy, which can significantly increase insulin resistance. Her current insulin regimen (glargine 30 U QAM and lispro 6 U TID + sliding scale) is insufficient to control her blood sugars. Prednisone taper may contribute to fluctuating glucose levels. Plan: -Increase insulin glargine to 34 U QAM to provide better basal coverage. -Increase insulin lispro to 8 U TID with meals, and continue with the sliding scale for additional coverage. -Restart metformin 500 mg BID -Home health to monitor BMP and A1c levels (2) Interstitial lung disease: Status: Acute Assessment & Plan: The patient?s ILD flare has improved with the current prednisone therapy and use of 2 L O2 Plan: -Continue prednisone taper as prescribed (3) Recurrent UTI: Status: Acute Assessment & Plan: The patient has a history of recurrent UTIs and was prescribed Premarin cream for UTI prevention. However, the pharmacy has not filled the prescription due to an authorization issue. Plan: -Re-send Premarin cream (0.625 mg/g) prescription to pharmacy, to be applied 3 ? weekly. -Follow up with the pharmacy to ensure authorization is processed and that the prescription is filled promptly. (4) Anxiety: Status: Acute Assessment & Plan: The patient is experiencing worsening anxiety and skin-picking behavior, likely exacerbated by prednisone therapy. Anxiety and agitation are common side effects of high-dose steroids, which may be contributing to her distress. Her current antidepressant, venlafaxine 150 mg daily, seems ineffective for managing anxiety symptoms. Plan: -Start Hydroxyzine 25 mg PO Q6H PRN for immediate relief of anxiety and itching. -Monitor for sedation or confusion, especially given her older age and concurrent medications. -Continue venlafaxine 150 mg daily (5) Hypothyroidism: Status: Acute Assessment & Plan: The patient is on levothyroxine 100 mcg daily for hypothyroidism and has been stable. Plan: -Continue levothyroxine 100 mcg daily. -Check TSH levels at the next visit to ensure adequate thyroid hormone replacement and adjust dose if necessary. Plan ----- Plan discussed with attending physician Dr. Nancy Ramírez MD PGY-1 Internal Medicine Advanced Care Planning Advance care planning discussed with:: patient Office Procedures [facility] Level of Care Nursing/Assessment Patient Status: Established Patient Nursing Assessment/Reassessment: Medication Reconciliation and Update PMH in EMR Coordination of Care: Complex Care and Chronic Disease 1-5, Consent,records obtained, informed consent and Results/Orders obtained Established Patient Charge Established Patient Point Assignment: 50 Telehealth Telemed Phone/Video with patient at home & Dr,PA,NETWORK SECURITY ENGINEER: Yes
== END 2025-06-08 15:35 | disposition home or self-care (01) ==
LOC: HODAHC 14:00
PROVIDERS: Supervising Provider Internal Medicine
DX: E11.65 Type 2 diabetes mellitus with hyperglycemia (principal); Z79.4 Long term (current) use of insulin; J84.9 Interstitial pulmonary disease, unspecified; Z87.440 Personal history of urinary (tract) infections; F41.9 Anxiety disorder, unspecified; E03.9 Hypothyroidism, unspecified; Z79.890 Hormone replacement therapy
CPT/HCPCS: 99212; G0463

== ENCOUNTER 2025-06-15 16:52 | Emergency (ER) | payer MEDICARE, SELFPAY ==
[2025-06-15 17:20] VITALS: BP 122/56; PULSE 86; RESP 18; TEMP 36.7; O2SAT 97
[2025-06-15 17:22] VITALS: PULSE 98; RESP 16; O2SAT 95
--- NOTE | 2025-06-15 18:30 | EDNOTE_ITS ---
Upper Extremity Injury RME/HPI General Chief Complaint: Extremity Injury, Upper Stated Complaint: RIGHT ARM PAIN Time Seen by Provider: 06/15/25 18:19 Arrival date/time: 06/15/25 16:52 RME / HPI RME / HPI narrative: Dr. North?s Main ED Evaluation: 89yo female with a history of ILD/pulmonary fibrosis, chronic respiratory failure on 2 L home oxygen and BiPAP, HFpEF, bedbound, recurrent UTIs, hypothyroidism, right breast cancer s/p lumpectomy, DMII, GERD, depression, chronic back pain accompanied by her caregiver presents to the ED for a chief complaint of RUE warmth, redness, and swelling x this morning. Patient's caregiver reports she noticed the patient started having RUE warmth, redness, and swelling this morning. Patient denies any RUE pain. Caregiver has had the patient's arm elevated all day today without improvement. Patient denies any history of blood clots. Denies any falls, injuries, fever, chills, or any other associated symptoms. Allergies: Sulfa, Cefuroxime, Iodine Related Data Home Medications ?Medication ?Instructions ?Recorded ?Confirmed methenamine hippurate 1 gram tablet 1 g PO BID 0 06/08/25 omeprazole 40 mg capsule,delayed 40 mg PO QDAY 1 06/08/25 release ascorbic acid (vitamin C) 500 mg 500 mg PO BID 4 06/08/25 tablet (Vitamin C) aspirin 81 mg tablet 81 mg PO QDAY 03/19/2406/08 calcium 600 mg (as 0.5 tab PO QDAY 12/27/24 carbonate)-vitamin D3 5 mcg (200 unit) tablet (Calcium 600 + D(3)) hydrocodone 10 mg-acetaminophen 1 tab PO TID PRN pain 12/27/24 06/08/25 325 mg tablet lactobacillus comb no.10 20 25,000 mmu cells PO QDAY 0 12/27/24 06/08/25 billion cell capsule (Probiotic) levothyroxine 100 mcg tablet 100 mcg PO QDAY 02/15/25 06/08/25 Previous Rx's ?Medication ?Instructions ?Recorded rosuvastatin 5 mg tablet 5 mg PO HS 1 month #30 tabs 04/14/25 insulin aspart U-100 100 unit/mL 1 sliding scale dose subcut 05/04/25 (3 mL) subcutaneous pen (Novolog USEASDIRECTD PRN hype rglycemia #15 FlexPen U-100 Insulin aspart) mL metoprolol succinate 25 mg 25 mg PO QDAY #30 tabs 04/18 03/11 tablet,extended release 24 hr pramipexole 1 mg tablet 1 mg PO QHS #30 tabs 5 venlafaxine 150 mg 150 mg PO QDAY #30 caps 04/18 03/11 capsule,extended release 24 hr insulin syringes (disposable) 1 mL #500 ea 05/25/25 pen needle, diabetic 31 gauge x #100 ea 05/25/2508/21 (1st Tier Unifine Pentips) pen needle, diabetic 31 gauge x #100 ea 05/25/2508/21 (Comfort EZ Pen Clinton) pen needle, diabetic 31 gauge x #1,200 ea 06/02/2510/31 (Advocate Pen Needle) prednisone 10 mg tablet See Taper PO QDAY #375 tabs 06/02/25 conjugated estrogens 0.625 mg/gram 1 mg topical .3 sonal es weekly 1 06/08/25 vaginal cream (Premarin) month #30 grams hydroxyzine HCl 25 mg tablet 25 mg PO Q6HR PRN anxiety #120 tabs 06/08/25 insulin glargine 100 unit/mL (3 35 unit (0.35 mL) subc ut QAM 1 06/08/25 mL) subcutaneous pen (Lantus month #10.5 mL Solostar U-100 Insulin) insulin lispro 100 unit/mL 8 unit (0.08 mL) subcut TID 1 06/08/25 subcutaneous solution month #7.2 mL metformin 500 mg tablet 500 mg PO BID #60 tabs 06/08 clindamycin HCl 300 mg capsule 300 mg PO TID 7 days #2 1 caps 06/15/25 (Cleocin HCl) Allergies Allergy/AdvReac Type Severity Reaction Status Date / Time cefuroxime Allergy Intermediate Swelling Verified 06/08/25 14:34 of Lip/Tongue/Throat zinc Allergy Intermediate Rash Verified 06/08/25 14:34 iodine Allergy Unknown Verified 06/08/25 14:34 shellfish derived Allergy Unknown Verified 06/08/25 14:34 Sulfa (Sulfonamide Allergy Unknown Verified 06/08/25 14:34 Antibiotics) Influenza Virus Vaccines Allergy Verified 06/08/25 14:34 Review of Systems Review of Systems Systems Reviewed: All systems reviewed, normal except as documented ED Exam Narrative Physical exam: Generally patient is alert morbidly obese but no obvious distress, heart regular rate and rhythm, lungs clear to auscultation equal bilaterally, abdomen is obese soft nontender, extremities show diffusely swollen right upper extremity with erythema warmth and tenderness to the inner aspect of the right upper extremity near the elbow. Strong distal radial and ulnar pulse to the right side. No fluctuance and no open wounds. Course Course Course Narrative: Doppler ultrasound to the right upper extremity showed no evidence of deep venous thrombosis. I will treat this as a cellulitis. Patient has an allergy to sulfa and cephalosporin medications. Patient will be started on clindamycin to be taken as prescribed. Elevate right arm is much as possible. Follow-up with regular doctor for further treatment and evaluation. Quality Measures none Orders Category Date Time Status US venous doppler UE RT Stat Exams 06/15/25 18:35 Completed Vital Signs Vital signs: Vital Signs Temperature 98.0 F 06/15/25 17:20 Pulse Rate 86 06/15/25 17:20 Respiratory Rate 18 06/15/25 17:20 Blood Pressure 122/56 L 06/15/25 17:20 Pulse Oximetry (%) 97 06/15/25 17:20 Oxygen Delivery Method Room Air 06/15/25 17:20 Extremity Injury MDM Narrative MDM Narrative:: Scribe Attestation: 06/15/25 Senia Jim am scribing for and in the presence of Dr. North. 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 Social determinants that could affect healthcare access:: none Patient has the following chronic illnesses:: ILD/pulmonary fibrosis, chronic respiratory failure on 2 L home oxygen and BiPAP, HFpEF, bedbound, recurrent MDR UTI, hypothyroidism, right breast cancer s/p lumpectomy, T2DM, GERD, depression, chronic back pain How is presenting disease/condition affected by chronic disease/condition?: uneffected by Evaluation data The following diagnostics were reviewed and interpreted by me:: radiology exam(s) Lab and/or radiology exams considered but not ordered:: none Interpretation Summary: [facility] Report Signed Patient: SHAN SLAUGHTER [facility]. Record#: [id number] Birthdate: 1935 Age/Sex: 89 / F Location: [facility] Attending Dr: Ordering Physician: Marquise North DO Date of Service: 06/15/25 Procedure(s): US venous doppler UE RT Accession Number(s): [id number] cc: Christian Cárdenas MD; Marquise North DO~ Examination: Duplex scan of the upper extremity, unilateral right Date and time of exam: June 15, 2025, 0810 hours INDICATIONS: Redness swelling and pain right arm today Technique: Duplex scan of the extremity veins using B-mode/grayscale imaging and Doppler spectral analysis and color flow Attention is directed to internal echogenicity, compression and augmentation involving these veins, color flow assessment, spectral analysis Findings: Major deep venous structures in the extremity demonstrate normal course and caliber. There is no evidence of deep vein thrombosis. Normal color flow and spectral analysis Impression: Negative for DVT.. Dictated By: Christian Cárdenas MD Signed By: <Electronically signed by Christian Cárdenas MD in [place]> 06/15/252058 Medications / Prescriptions Medications or Prescriptions considered but not ordered:: none Medication administrations:: see above, if any Consultations Consultation(s) initiated? (list below): No Diagnosis Upper Extremity Injury Differential Diagnosis: other (See MDM) Most likely diagnosis given after review of the tests above:: see clinical impression below Admission Indicated Admission indicated?: not indicated Admission Request Was there a request for admission?: No Disposition Plan Disposition Plan: Discharge Discharge Attestation Discharge Attestation: The patient and all family members were given an opportunity to ask questions and understood the discharge instructions. Discharge instructions specifically effects, indications for sooner follow up or return to the emergency department, and the expected course of current diagnosis. Patient condition: Stable Discharge Plan Plan Patient Disposition: HOME (Self Care) Prescriptions/Referrals Prescriptions/Med Rec: New clindamycin HCl [Cleocin HCl] 300 mg capsule 300 mg PO TID 7 Days Qty: 21 0RF No Action insulin aspart U-100 [Novolog FlexPen U-100 Insulin] 100 unit/mL (3 mL) insulin pen 1 sliding scale dose subcut USEASDIRECTD PRN (Reason: hyperglycemia) Qty: 15 0RF Rx Instructions: Take insulin as per sliding scale pramipexole 1 mg tablet 1 mg PO QHS Qty: 30 2RF venlafaxine 150 mg capsule,extended release 24hr 150 mg PO QDAY Qty: 30 2RF metoprolol succinate 25 mg tablet extended release 24 hr 25 mg PO QDAY Qty: 30 2RF (DME) insulin syringes (disposable) 1 mL syringe See Rx Instructions .Route Qty: 500 0RF Rx Instructions: As directed (DME) pen needle, diabetic [1st Tier Unifine Pentips] 31 gauge x 1/4 needle See Rx Instructions .Route Qty: 100 0RF Rx Instructions: As directed (DME) pen needle, diabetic [Comfort EZ Pen Clinton] 31 gauge x 1/4 needle See Rx Instructions .Route Qty: 100 2RF Rx Instructions: As directed insulin glargine [Lantus Solostar U-100 Insulin] 100 unit/mL (3 mL) insulin pen 35 unit subcut QAM 30 Days Qty: 10.5 2RF metformin 500 mg tablet 500 mg PO BID Qty: 60 2RF hydroxyzine HCl 25 mg tablet 25 mg PO Q6HR PRN (Reason: anxiety) Qty: 120 1RF insulin lispro 100 unit/mL solution 8 unit subcut TID 30 Days Qty: 7.2 2RF Rx Instructions: Inject 6 units subcutaneously three times daily with meals Premarin 0.625 mg/gram cream 1 mg topical .3 times weekly 30 Days Qty: 30 2RF rosuvastatin 5 mg tablet 5 mg PO HS 30 Days Qty: 30 2RF methenamine hippurate 1 gram tablet 1 g PO BID Patient Comments: TAKE 1 TABLET BY MOUTH TWICE A DAY WITH 500 MG OF VITAMIN C Rx Instructions: TAKE 1 TABLET BY MOUTH TWICE A DAY WITH 500 MG OF VITAMIN C omeprazole 40 mg Capsule,Delayed Release(Dr/Ec) 40 mg PO QDAY aspirin 81 mg Tablet 81 mg PO QDAY ascorbic acid (vitamin C) [Vitamin C] 500 mg Tablet 500 mg PO BID levothyroxine 100 mcg tablet 100 mcg PO QDAY hydrocodone-acetaminophen 10-325 mg tablet 1 tab PO TID PRN (Reason: pain) Probiotic 20 billion cell capsule 25,000 mmu cells PO QDAY Rx Instructions: administer with a meal calcium carbonate-vitamin D3 [Calcium 600 + D(3)] 600 mg-5 mcg (200 unit) tablet 0.5 tab PO QDAY prednisone 10 mg tablet See Taper PO QDAY Qty: 375 0RF Taper: Prednisone Taper 30 mg TWICE A DAY for 30 Days and 0 Hour 30 mg DAILY for 30 Days and 0 Hour 20 mg DAILY for 30 Days and 0 Hour 10 mg DAILY for 30 Days 5 mg DAILY for 30 Days (DME) pen needle, diabetic [Advocate Pen Needle] 31 gauge x 3/16 needle See Rx Instructions .Route Qty: 1200 0RF Rx Instructions: As directed Problem List Clinical Impression: Cellulitis Patient/Caregiver Discharge Instructions Education Materials: ED Cellulitis Additional Instructions: Elevate right arm is much as possible on pillows. Clindamycin as prescribed. Follow-up with your doctor for further treatment and evaluation. Print Language: Montenegrin Stand Alone Forms: [employer] Info., Patient Portal Info Letter
--- NOTE | 2025-06-15 18:35 | XR_ITS ---
Examination: Duplex scan of the upper extremity, unilateral right Date and time of exam: June 15, 2025, 0810 hours INDICATIONS: Redness swelling and pain right arm today Technique: Duplex scan of the extremity veins using B-mode/grayscale imaging and Doppler spectral analysis and color flow Attention is directed to internal echogenicity, compression and augmentation involving these veins, color flow assessment, spectral analysis Findings: Major deep venous structures in the extremity demonstrate normal course and caliber. There is no evidence of deep vein thrombosis. Normal color flow and spectral analysis Impression: Negative for DVT..
[2025-06-15 19:47] VITALS: BP 137/62; PULSE 78; TEMP 36.9; O2SAT 99
[2025-06-15 19:51] VITALS: BMI 32.8
--- NOTE | 2025-06-15 19:53 | PC.NURSE ---
first pt contact 1930. pt resting quietly. awaiting US. pt placed on monitor. denies pain at this time. I&O x 4. GCS 15.
--- NOTE | 2025-06-15 20:00 | PC.NURSE ---
pts pulse feels irregular, pt placed on monitor that shows SR WITH FREQUENT PACs.
[2025-06-15 21:56] VITALS: BP 168/89; PULSE 84; RESP 19; TEMP 36.5; O2SAT 95
--- NOTE | 2025-06-15 22:29 | PC.NURSE ---
pt lresting quietly. VS stable. pt is discharged. contacted pts caregiver. PT is bedbound.. will make arrangment for ambulance ride home.
[2025-06-15 22:45] VITALS: BP 139/88; PULSE 79; RESP 18; TEMP 36.8; O2SAT 98
== END 2025-06-15 23:31 | disposition home or self-care (01) ==
LOC: SERX 23:39
PROVIDERS: Emergency Provider Emergency Medicine
DX: L03.113 Cellulitis of right upper limb (principal); E03.9 Hypothyroidism, unspecified; E11.9 Type 2 diabetes mellitus without complications; F32.A Depression, unspecified; G89.29 Other chronic pain
CPT/HCPCS: 93971; 99282

== ENCOUNTER 2025-06-29 13:59 | Outpatient (AMB) | payer MEDICARE, SELFPAY ==
--- NOTE | 2025-06-29 14:59 | PD.RESCLINIC ---
Allergies/Meds Allergies & Medications Allergies cefuroxime Allergy (Intermediate, Verified 06/08/25 14:34) Swelling of Lip/Tongue/Throat zinc Allergy (Intermediate, Verified 06/08/25 14:34) Rash iodine Allergy (Unknown, Verified 06/08/25 14:34) shellfish derived Allergy (Unknown, Verified 06/08/25 14:34) Sulfa (Sulfonamide Antibiotics) Allergy (Unknown, Verified 06/08/25 14:34) Influenza Virus Vaccines Allergy (Verified 06/08/25 14:34) ME Intake Visit Data Collection New Patient or Established: Established Patient (seen at [facility] within 3 years) PCP or OBGYN visit in last 3 months: No Smoking Status Smoking Status: Never smoker For Televisit only Telemed Video/Phone Visit: Yes Verbal consent obtained for Telemed visit?: Yes Telemed Video/Phone visit w/Clinical Staff: 21-30 min Immunization / Flu Flu Vaccine in the Last 12 Months: No Flu Vaccine Exclusion Criteria: No Exclusion Criteria Past Medical History Past Medical History NEUROLOGIC: Negative Neurological Disorders, Cerebrovascular Accident, Transient Ischemic Attacks (TIA), Dementia, Alzheimer's Disease, Parkinson's Disease, Brain Tumor, Meningitis, Seizures, Epilepsy, Multiple Sclerosis, Cerebral Palsy, Amyotrophic Lateral Sclerosis (ALS/Dee Gehrig's), Guillain-Everett Syndrome, Spina Bifida, Paralysis, Peripheral Neuropathy, Salcido's Palsy, Subdural Hematoma, Migraine, Head Trauma, Spinal Cord Injury or Traumatic Brain Injury CARDIAC: Positive Cardiac Disorders, Coronary Artery Disease, Hypercholesterolemia, Congestive Heart Failure and Hypertension; Negative Myocardial Infarction, Cardiac Arrhythmia, Atrial Fibrillation, Angina, Heart Murmur, Atherosclerotic Heart Disease, Peripheral Vascular Disease, Aneurysm, Congenital Heart Disease, Valvular Heart Disease, Rheumatic Fever, Cardiomyopathy, Edema, Pericarditis, Cellulitis, Deep Vein Thrombosis, Hypotension or Varicose Veins RESPIRATORY: Positive Asthma, Pneumonia, Pulmonary Fibrosis and Sleep Apnea; Negative Chronic Obstructive Pulmonary Disease (COPD), Bronchitis, Emphysema, Cystic Fibrosis, Tuberculosis, Pulmonary Embolism or Pulmonary Edema GASTROINTESTINAL: Positive Gastrointestinal Disorders, Gall Bladder Disease, Gastroesophageal Reflux Disease and Obesity; Negative Hepatitis, Cirrhosis, Pancreatitis, Celiac Disease, Gastrointestinal Bleed, Esophageal Varices, White's Esophagus, Colitis, Ulcerative Colitis, Diverticulitis, Diverticulosis, Ulcer, Colorectal Cancer, Irritable Bowel, Crohn's Disease, Obstructive Bowel, Hiatal Hernia or Hemorrhoids GENITOURINARY: Positive Genitourinary Disorders and Kidney Stones; Negative Renal Disease, Polycystic Kidney Disease, Neurogenic Bladder, Inguinal Hernia, Dialysis, Prostate Cancer or Benign Prostatic Hyperplasia REPRODUCTIVE: Positive Breast Cancer; Negative Endometriosis, Genital Herpes, Gonorrhea, Pelvic Inflammatory Disease, Previous Pregnancies, Syphilis, Testicular Cancer or Uterine Prolapse MUSCULOSKELETAL: Positive Arthritis and Fractures; Negative Muscular Dystrophy, Myasthenia Gravis, Marfan's Syndrome, Bone Cancer, Rheumatoid Arthritis, Osteoporosis, Degenerative Disk Disease, Gout, Scoliosis, Carpal Tunnel Syndrome, Fibromyalgia, Degenerative Joint Disease, Osteomyelitis or Poliovirus ENT: Negative Cataracts, Glaucoma, Blind, Retinal Detachment, Macular Degeneration, Ear Infection, Deafness, Head Trauma or Eye Prosthesis ENDOCRINE: Positive Endocrine Disorders, Diabetes Mellitus Type 2 and Hypothyroidism; Negative Diabetes Mellitus Type 1, Hypoglycemia, Remington's Syndrome, Hilario's Disease, Hyperthyroidism, Parathyroid Disease, Pituitary Disease, Systemic Lupus Erythematosus, Syndrome of Inappropriate Antidiuretic Hormone (SIADH), Adrenal Disease or Graves' Disease HEMATOLOGIC: Negative Blood Disorders, Anemia, Leukemia, Hemophilia, Thalassemia, Sickle Cell Disease or Clotting Problems PSYCHO/SOCIAL: Positive Depression and Anxiety; Negative Psychiatric Problems, Schizophrenia, Recreational Drug Use, Bipolar Disorder, Behavior Problems, Self-Mutilation, Attention Deficit Disorder, Attention Deficit Hyperactivity Disorder, Depression, Post Traumatic Stress Disorder or Eating Disorder OTHER HISTORY: Positive Cancer and Breast Cancer; Negative Hospitalization, Down Syndrome, Autism, Developmental Delay, Shingles, Falls, Blood Transfusions, Blood Transfusion Reaction, Anesthesia Reactions, Organ Transplant, Chemotherapy, Radiation Therapy, Hyperbaric Therapy, MRSA, VRSA, Vancomycin-Resistant Enterococci, Human Immunodeficiency Virus (HIV), Chicken Pox, Measles, Mumps, Rubella (Ethiopian Measles), Pertussis, Clostridium Difficile, Cervical Cancer, Colorectal Cancer, Lung Cancer, Ovarian Cancer, Prostate Cancer or Testicular Cancer Family History FAMILY HISTORY: Positive Family Cardiac Disorders and Family Cancer; Negative Family Psychiatric Problems, Family Respiratory Disorders, Family Gastrointestinal Problems, Family Surgery or Family Anesthesia Reaction Surgical History SURGICAL: Positive Tonsillectomy, Abdominal Surgery and Lumpectomy; Negative Cardiac Surgery, Open Heart Surgery, Coronary Artery Bypass Graft, Valve Replacement, Vascular Surgery, Coronary Stent, Cardiac Catheterization, Pacemaker, Angiogram, Auto Implanted Cardiovert Defib, Carotid Endarterectomy, Endocrine Surgery, Thyroidectomy, Ear Surgery, Tympanostomy Tube, Eye Surgery, Nose Surgery, Oral Surgery, Adenoidectomy, Cochlear Implant, Corneal Transplant, Throat Surgery, Tracheostomy, Gastric Bypass Surgery, Gastrostomy, Bowel Surgery, Nephrectomy, Transurethral Resection, Joint Replacement, Amputation, Open Reduction Internal Fixation, Arthroscopy, Neurologic Surgery, Brain Shunt, Mastectomy, Hysterectomy, Tubal Ligation, Section or Organ Transplant Social History SMOKING STATUS: Smoking status: Never smoker SECOND HAND EXPOSURE: second hand exposure: No ALCOHOL: Alcohol Intake: Never ALCOHOL FREQUENCY: Alcohol Intake Frequency: holidays/special occasions only HOUSING: Housing: House LIVES WITH: Lives With: Family Patient [place] Social History Living Situation History Housing: House Housing Other:: Patient resides at home with her caregivers. Tobacco History Smoking Status: Never smoker Second Hand Smoke Exposure: No Alcohol History Alcohol Intake: Never Alcohol Intake Frequency: holidays/special occasions only Review of Systems Report any current symptoms Only answer those that you have currently: Past Medical History Past Medical History Have you ever been diagnosed with any of the following: Neurological Problems Cerebrovascular Accident (CVA): No Transient Ischemic Attacks (TIA): No Dementia: No Alzheimer's Disease: No Parkinson's Disease: No Brain Tumor: No Meningitis: No Seizures: No Epilepsy: No Multiple Sclerosis: No Cerebral Palsy: No Amyotrophic Lateral Sclerosis (ALS/Dee Gehrig's): No Guillain-Everett Syndrome: No Spina Bifida: No Paralysis: No Peripheral Neuropathy: No Salcido's Palsy: No Subdural Hematoma: No Migraine: No Head Trauma: No Spinal Cord Injury: No Traumatic Brain Injury: No Cardiology Problems Myocardial Infarction: No Cardiac Arrhythmia: No Atrial Fibrillation: No Angina: No Heart Murmur: No Coronary Artery Disease: Yes Atherosclerotic Heart Disease: No Peripheral Vascular Disease: No Hypercholesterolemia: Yes Aneurysm: No Congestive Heart Failure: Yes Congenital Heart Disease: No Valvular Heart Disease: No Rheumatic Fever: No Cardiomyopathy: No Edema: No Pericarditis: No Cellulitis: No Deep Vein Thrombosis: No Hypertension: Yes Hypotension: No Varicose Veins: No Respiratory Problems Chronic Obstructive Pulmonary Disease (COPD): No Asthma: Yes Bronchitis: No Emphysema: No Pneumonia: Yes Pulmonary Fibrosis: Yes Tuberculosis: No Pulmonary Embolism: No Pulmonary Edema: No Sleep Apnea: Yes Stomache/Intestinal Problems Hepatitis: No Cirrhosis: No Pancreatitis: No Celiac Disease: No Gall Bladder Disease: Yes Gastrointestinal Bleed: No Esophageal Varices: No White's Esophagus: No Colitis: No Ulcerative Colitis: No Diverticulitis: No Diverticulosis: No Ulcer: No Colorectal Cancer: No Irritable Bowel: No Crohn's Disease: No Obstructive Bowel: No Hiatal Hernia: No Hemorrhoids: No Gastroesophageal Reflux Disease: Yes Obesity: Yes Genital/Urinary Problems Renal Disease: No Kidney Stones: Yes Polycystic Kidney Disease: No Neurogenic Bladder: No Inguinal Hernia: No Dialysis: No Reproductive Problems Breast Cancer: Yes Endometriosis: No Genital Herpes: No Gonorrhea: No Pelvic Inflammatory Disease: No Previous Pregnancies: No Syphilis: No Uterine Prolapse: No Musculoskeletal Problems Muscular Dystrophy: No Myasthenia Gravis: No Marfan's Syndrome: No Bone Cancer: No Arthritis: Yes Rheumatoid Arthritis: No Osteoporosis: No Degenerative Disk Disease: No Gout: No Scoliosis: No Carpal Tunnel Syndrome: No Fibromyalgia: No Fractures: Yes Degenerative Joint Disease: No Osteomyelitis: No Poliovirus: No Head,Eye,Nose,Throat Problems Cataracts: No Glaucoma: No Blind: No Retinal Detachment: No Macular Degeneration: No Chronic Ear Infections: No Deafness: No Eye Prosthesis: No Endocrine Problems Diabetes Mellitus Type 1: No Diabetes Mellitus Type 2: Yes Hypoglycemia: No Remington's Syndrome: No Hilario's Disease: No Hyperthyroidism: No Hypothyroidism: Yes Parathyroid Disease: No Pituitary Disease: No Systemic Lupus Erythematosus: No Syndrome of Inappropriate Antidiuretic Hormone: No Adrenal Disease: No Graves' Disease: No Blood Problems Anemia: No Leukemia: No Hemophilia: No Thalassemia: No Sickle Cell Disease: No Clotting Problems: No Psychologic Problems Schizophrenia: No Recreational Drug Use: No Bipolar Disorder: No Depression: Yes Anxiety: Yes Behavior Problems: No Self-Mutilation: No Attention Deficit Disorder: No Attention Deficit Hyperactivity Disorder: No Depression: No Post Traumatic Stress Disorder: No Eating Disorder: No Other Problems Hospitalization: No Down Syndrome: No Autism: No Developmental Delay: No Shingles: No Falls: No Blood Transfusions: No Blood Transfusion Reaction: No Anesthesia Reactions: No Organ Transplant: No Chemotherapy: No Radiation Therapy: No Hyperbaric Therapy: No MRSA: No VRSA: No Vancomycin-Resistant Enterococci: No Human Immunodeficiency Virus (HIV): No Chicken Pox: No Measles: No Mumps: No Rubella (Ethiopian Measles): No Pertussis: No Clostridium Difficile: No Cancer: Yes Cervical Cancer: No Lung Cancer: No Ovarian Cancer: No Surgical History Carotid Endarterectomy: No Coronary Artery Bypass Graft: No Valve Replacement: No Hysterectomy: No Pacemaker: No Thyroidectomy: No History of Present Illness HPI Narrative 89-year-old female with ILD-related chronic respiratory failure and multiple comorbidities, currently stable post-hospitalization but with uncontrolled steroid-induced hyperglycemia and anxiety. 06/29/2025: Patient seen today via telehealth with caregiver present. She remains on prednisone 60 mg daily per taper plan; appetite increased but otherwise tolerating steroids. Plan is to taper down steroids, next decrease 07/02/2025 Blood sugars have been persistently 300?400 mg/dL. She is taking glargine 30 U QAM and lispro 6 U TID + sliding scale. Metformin was discontinued in hospital for STEVE; caregiver reports no known kidney problems. Home health is active, checks vitals, and can draw labs as needed. Mentation and alertness improved compared to pre-admission. Eating well, adequate hydration, good caregiver support. Caregiver requesting refills of levothyroxine, insulin needles, both prescriptions refilled. Caregiver notes patient has been complaining of increased muscular pain, especially with activity. Possible side effect of steroids, patient rates pain has mild?moderate, intermittent, without significant impairment. Advised caregiver on exercises/stretching for pain relief, if pain persist after prednisone is tapered down advised caregiver to make another appointment for reevaluation. Review of Systems Review of Systems Systems Reviewed: All systems reviewed, normal except as documented Objective/Exam Narrative Physical exam: televisit Assessment & Plan Diagnosis / Problem List (1) Hypothyroidism: Status: Acute Qualifiers: Hypothyroidism type: unspecified Qualified Code(s): E03.9 - Hypothyroidism, unspecified Assessment & Plan: The patient is on levothyroxine 100 mcg daily for hypothyroidism and has been stable. Plan: -Continue levothyroxine 100 mcg daily. (2) Type 2 diabetes mellitus: Status: Acute Qualifiers: Diabetes mellitus complication status: with hyperglycemia Diabetes mellitus long term acute care registered nurse insulin use: without long term acute care registered nurse use Qualified Code(s): E11.65 - Type 2 diabetes mellitus with hyperglycemia Assessment & Plan: The patient?s blood sugars have been consistently high (300?400 mg/dL), likely due to prednisone therapy, which can significantly increase insulin resistance. Her insulin regimen recently increased: Glargine 34 units every morning, lispro 8 units 3 times daily with meals, with sliding scale. Prednisone taper may contribute to fluctuating glucose levels. Plan: - Continue close monitoring of glucose with decrease of prednisone taper anticipated. -Home health to monitor BMP and A1c levels - Renewed prescription for insulin needles (3) Interstitial lung disease: Status: Acute Assessment & Plan: The patient?s ILD flare has improved with the current prednisone therapy and use of 2 L O2 Plan: -Continue prednisone taper as prescribed Plan Plan of care discussed with attending Dr. Cruz. Kali Walton MD PGY-2 Advanced Care Planning Advance care planning discussed with:: patient Office Procedures [facility] Level of Care Telehealth Telemed Phone/Video with patient at home & DrPA,J2EE ARCHITECT: No Telemed Phone/Video with patient in Clinic w/TYLER Phipps,PA outside Clinic: No
== END 2025-06-29 15:54 | disposition home or self-care (01) ==
LOC: HODAHC 13:59
PROVIDERS: Supervising Provider Internal Medicine
DX: E03.9 Hypothyroidism, unspecified (principal); E11.65 Type 2 diabetes mellitus with hyperglycemia; Z79.4 Long term (current) use of insulin; J84.9 Interstitial pulmonary disease, unspecified
CPT/HCPCS: 99213; G0463

== ENCOUNTER 2025-08-01 01:57 | Inpatient (IN) | payer MEDICARE, SELFPAY ==
[2025-08-01] VITALS (23 sets, daily range): BP systolic 123–155; BP diastolic 64–82; PULSE 104–138; RESP 14–33; TEMP 36.1–37.9; O2SAT 90–98; BMI 34.4; BMI 36.0
--- NOTE | 2025-08-01 02:07 | PD.EDSOB ---
ED SOB =RME/HPI General Chief Complaint: Shortness of Breath/Dyspnea Stated Complaint: SOB Time Seen by Provider: 08/01/25 02:11 Arrival date/time: 08/01/25 01:57 Limitations: no limitations RME / HPI RME / HPI Narrative: Dr. Tafoya?s Main ED Evaluation: 89yo female with a history of ILD/pulmonary fibrosis, chronic respiratory failure on 2 L home oxygen and BiPAP, HFpEF, bedbound, recurrent UTIs, hypothyroidism, right breast cancer s/p lumpectomy, DMII, GERD, depression, chronic back pain BIBA from home presents to the ED for a chief complaint of shortness of breath x 1700. Patient started having shortness of breath after dinner. Per EMS, patient had multiple bouts of emesis that was brown. Caregiver was concerned for aspiration pneumonia, so the patient came in for evaluation. Patient was initially saturating at 68% on 2L/NC and went up to 85-90% after receiving 2 albuterol treatments en route. Patient endorses having a cough. Denies any fever, chills, or any other associated symptoms. Related Data Home Medications ?Medication ?Instructions ?Recorded ?Confirmed methenamine hippurate 1 gram tablet 1 g PO BID 04/18/20 06/08/25 omeprazole 40 mg capsule,delayed 40 mg PO QDAY 06/04/21 06/08/25 release ascorbic acid (vitamin C) 500 mg 500 mg PO BID 03/19/24 06/08/25 tablet (Vitamin C) aspirin 81 mg tablet 81 mg PO QDAY 03/19/24 06/08/25 calcium 600 mg (as 0.5 tab PO QDAY 12/27/24 06/08/25 carbonate)-vitamin D3 5 mcg (200 unit) tablet (Calcium 600 + D(3)) hydrocodone 10 mg-acetaminophen 1 tab PO TID PRN pain 12/27/24 06/08/25 325 mg tablet lactobacillus comb no.10 20 25,000 mmu cells PO QDAY 12/27/24 06/08/25 billion cell capsule (Probiotic) Previous Rx's ?Medication ?Instructions ?Recorded rosuvastatin 5 mg tablet 5 mg PO HS 1 month #30 tabs 04/14/25 insulin aspart U-100 100 unit/mL 1 sliding scale dose subcut 05/04/25 (3 mL) subcutaneous pen (Novolog USEASDIRECTD PRN hyperglycemia #15 FlexPen U-100 Insulin aspart) mL metoprolol succinate 25 mg 25 mg PO QDAY #30 tabs 05/04/25 tablet,extended release 24 hr pramipexole 1 mg tablet 1 mg PO QHS #30 tabs 05/04/25 venlafaxine 150 mg 150 mg PO QDAY #30 caps 05/04/25 capsule,extended release 24 hr insulin syringes (disposable) 1 mL #500 ea 05/25/25 pen needle, diabetic 31 gauge x #100 ea 05/25/2508/21 (1st Tier Unifine Pentips) pen needle, diabetic 31 gauge x #100 ea 05/25/2508/21 (Comfort EZ Pen Creola) pen needle, diabetic 31 gauge x #1,200 ea 06/02/2510/31 (Advocate Pen Needle) prednisone 10 mg tablet See Taper PO QDAY #375 tabs 06/02/25 conjugated estrogens 0.625 mg/gram 1 mg topical .3 times weekly 1 06/08/25 vaginal cream (Premarin) month #30 grams hydroxyzine HCl 25 mg tablet 25 mg PO Q6HR PRN anxiety #120 tabs 06/08/25 insulin glargine 100 unit/mL (3 35 unit (0.35 mL) subcut QAM 1 06/08/25 mL) subcutaneous pen (Lantus month #10.5 mL Solostar U-100 Insulin) insulin lispro 100 unit/mL 8 unit (0.08 mL) subcut TID 1 06/08/25 subcutaneous solution month #7.2 mL metformin 500 mg tablet 500 mg PO BID #60 tabs 06/08/25 insulin syringes (disposable) 1 mL #500 ea 06/29/25 levothyroxine 100 mcg tablet 100 mcg PO QDAY 1 month #30 tabs 06/29/25 Allergies Allergy/AdvReac Type Severity Reaction Status Date / Time cefuroxime Allergy Intermediate Swelling Verified 06/08/25 14:34 of Lip/Tongue/Throat zinc Allergy Intermediate Rash Verified 06/08/25 14:34 iodine Allergy Unknown Verified 06/08/25 14:34 shellfish derived Allergy Unknown Verified 06/08/25 14:34 Sulfa (Sulfonamide Allergy Unknown Verified 06/08/25 14:34 Antibiotics) Influenza Virus Vaccines Allergy Verified 06/08/25 14:34 Review of Systems Review of Systems Systems Reviewed: All systems reviewed, normal except as documented ED Exam General Limitations: Present no limitations General appearance: Present alert, in no apparent distress, obese and other (chronically-ill appearing with acute decompensation) Head Head exam: Present atraumatic Eye Eye exam: Present normal appearance, PERRL and EOMI ENT ENT exam: Present normal exam, normal oropharynx and mucous membranes moist Neck Neck exam: Present normal inspection, full ROM and trachea midline Chest Chest inspection: Present normal inspection and symmetric chest wall rise Respiratory Respiratory exam: Present other (wheezing at the left base, diminished breath sounds at the right base, tachypneic) Cardiovascular Cardiovascular exam: Present normal rhythm, tachycardia and normal heart sounds Abdominal Exam Abdominal exam: Present soft and normal bowel sounds Extremities Exam Extremities exam: Present normal inspection and full ROM Back Exam Back exam: Present normal inspection and full ROM Neurological Exam Neurological exam: Present alert, oriented X3 and CN II-XII intact Psychiatric Psychiatric exam: Present normal affect and normal mood Skin Skin exam: Present warm, dry, intact and normal color Course Course Course Narrative: CXR is ordered for determining the etiology of shortness of breath. 0300: Sepsis alert initiated. Orders made at this time are congruent with ED Adult Sepsis Order List. Re-evaluation is to be completed. Quality Measures Possible source: pulmonary Blood cultures ordered: yes Antibiotic ordered: Yes Pertinent labs: 08/01/25 02:15 Lactic Acid 2.4 H mMol/L (0.4-2.0) Procalcitonin 0.12 ng/ml (0.0-0.49) sepsis Orders Category Date Time Status Bedside Blood Glucose NOW Care 08/01/25 02:13 Active Bedside COVID-19 Antigen Test NOW Care 08/01/25 02:16 Active Bedside Influenza A&B Antigen Test NOW Care 08/01/25 02:16 Completed [employer] Q4H START 00 Care 08/01/25 02:13 Active Queen [Urinary Catheter] QS Care 08/01/25 04:09 Active Insert IV NOW Care 08/01/25 02:13 Active Strict Intake and Output Routine Care 08/01/25 02:[address] chest wo con Stat Exams 08/01/25 02:58 Ordered NM VQ scan Stat Exams 08/01/25 03:25 Ordered XR chest 1V SEPSIS PROTOCOL Stat Exams 08/01/25 02:13 Taken ABG [Arterial Blood Gas] Stat Lab 08/01/25 02:15 Completed BNP [B-Type Natriuretic Peptide] Stat Lab 08/01/25 02:15 Completed Blood Culture (Lab) Stat Lab 08/01/25 02:15 Received CBC Stat Lab 08/01/25 02:15 Completed Comprehensive Metabolic Panel Stat Lab 08/01/25 02:15 Completed Lactate (Lactic Acid) Stat Lab 08/01/25 02:15 Results Partial Thromboplastin Time Stat Lab 08/01/25 02:15 Completed Procalcitonin Stat Lab 08/01/25 02:15 Completed Prothrombin Time with INR Stat Lab 08/01/25 02:15 Completed Troponin I Stat Lab 08/01/25 02:15 Completed Urinalysis Stat Lab 08/01/25 02:10 Completed Urine Culture Stat Lab 08/01/25 02:10 Received ALBUTEROL RT 0.5ml [Proventil Rt 0.5ml] Med 08/01/25 02:11 Discontinued 10 mg INH X1 ONE Ipratropium [place] Rt Sravani [Atrovent Rt Sravani] Med 08/01/25 02:11 Discontinued 1 mg INH X1 ONE MethylPREDNISolone.* [SoluMEDROL Inj] Med 08/01/25 02:11 Discontinued 125 mg IVP X1 ONE Piper/Tazo Inj [Zosyn Inj] 4.5 gm Med 08/01/25 02:52 Discontinued Sodium Chloride 0.9% (Pop) [NS 0.9% mini bag] 100 ml IV X1 Ringers Lactated 1000 ml [Lactated Ringers] 1,000 ml Med 08/01/25 03:26 Discontinued IV 999 mls/hr Ringers Lactated 1000 ml [Lactated Ringers] 1,000 ml Med 08/01/25 04:31 Ordered IV 999 mls/hr Ringers Lactated 500 ml [Lactated Ringers] 500 ml Med 08/01/25 03:00 Discontinued IV 999 mls/hr Sodium Chloride Rt Sravani 0.9% [NS Rt Sravani 0.9%] Med 08/01/25 02:11 Active 3 ml INH PRN PRN Vancomycin Pharmacy to Dose Med 08/01/25 02:51 Pending 1 each IV QDAY STA Vancomycin/Ns 1 gm Ivpb 200 ml Med 08/01/25 03:00 Active IV Q100M BiPAP / CPAP NOW RT 08/01/25 03:22 Active EKG (RT) Stat RT 08/01/25 02:13 Draft Oxygen Delivery NOW RT 08/01/25 03:02 Active Vital Signs Vital signs: Vital Signs Temperature 99.6 F 08/01/25 02:07 Pulse Rate 128 H 08/01/25 02:07 Respiratory Rate 28 H 08/01/25 02:07 Blood Pressure 127/74 08/01/25 02:07 Pulse Oximetry (%) 95 08/01/25 02:07 Oxygen Delivery Method Oxy Mask 08/01/25 02:07 Oxygen Flow Rate 15 08/01/25 02:07 Shortness of Breath / Dyspnea MDM Narrative MDM Narrative:: Scribe Attestation: 08/01/25 - Senia Núñez am scribing for and in the presence of Dr. Tafoya. Patient is an 89-year-old female that is in the emergency department with concerns for shortness of breath and difficulty breathing. Vital signs and exam as listed. Concern for pneumonia, viral syndrome, ACS, arrhythmia, reactive airway disease exacerbation, CHF exacerbation, aspiration, pulmonary embolus among others. Patient does have a history of breast cancer, she has been in remission for many years, which puts her at risk for pulmonary embolus however given her history of anaphylactic reactions to IV contrast, we will hold off on CT angio of the chest at this time. Patient states that she feels better following breathing treatments that was provided in the field. Patient does have a history of pulmonary fibrosis, and reactive airway disease. Will provide patient with steroids, breathing treatments, also ordered labs EKG chest x-ray. EKG performed today at 219 in the morning notable for sinus tachycardia, heart rate 130s, normal intervals, nonspecific T wave changes, not a cardiac alert. ABG notable for pH 7.25, pCO2 74. Per chart review patient is a chronic CO2 retainer, prior ABGs have shown that patient pCO2 is in the 80s, within normal pH, and normal bicarb. Patient's current pCO2 appears to be below her normal, in addition she has a pH of 7.25 concerning for concomitant metabolic acidosis. Patient has a significant leukocytosis 23.2, concerning for acute infection however patient has been on steroids however per chart review patient's prior white blood cells were 10. Per chart review patient has tolerated Zosyn in the past. Will order Zosyn and vancomycin. Patient does have a history of heart failure with preserved ejection fraction, she is not on diuretics at home. Given the elevated lactic acid, leukocytosis concern the patient may be septic. Will order judicious fluid resuscitation, will not give 30 cc/kg bolus because of the concern for her acute hypoxia as well as heart failure. Will resuscitate judiciously. Metabolic panel with sodium 148, potassium 5.2, bicarb 33.1 lactic acid 2.4, no significant transaminitis, troponin is 0.051. Patient denies any chest pain, arm pain, nausea or vomiting. Likely secondary to demand. BNP 183. Procalcitonin is 0.12 Trialed patient on high flow nasal cannula however symptoms did not improve. Patient is well-known to staff here, has responded very well to BiPAP in the past. We placed her on BiPAP, heart rate, work of breathing and mentation improved. And intermittent discussion did order CT scan without contrast. Discussed case with hospitalist, patient is well-known to the hospitalist service, kindly accepts patient for admission, they will follow-up on her CT scan. Patient data External records reviewed:: [facility] previous records (Per chart review, patient was seen here on 06/15/25 for cellulitis.) Clinical information provided by:: patient Social determinants that could affect healthcare access:: none Patient has the following chronic illnesses:: ILD/pulmonary fibrosis, chronic respiratory failure on 2 L home oxygen and BiPAP, HFpEF, bedbound, recurrent UTIs, hypothyroidism, right breast cancer s/p lumpectomy, DMII, GERD, depression, chronic back pain How is presenting disease/condition affected by chronic disease/condition?: exacerbated by Evaluation data The following diagnostics were reviewed and interpreted by me:: lab results, radiology exam(s) and EKG tracing(s) Lab and/or radiology exams considered but not ordered:: none Interpretation Summary: CXR shows cardiomegaly, bilateral fibrotic changes, infiltrates at the right base, according to my interpretation. Medications / Prescriptions Medications or Prescriptions considered but not ordered:: none Medication administrations:: Medication Administration History Vancomycin/Sodium Chloride (Vancomycin/Ns 1 Gm Ivpb) 200 mls @ 120 mls/hr IV Q100M LISETTE Stop: 08/01/25 06:19 Last Admin: 08/01/25 03:44 Dose: 120 mls/hr Documented By: NOE Lactated Ringer's (Lactated Ringers) 1,000 mls @ 999 mls/hr IV .Q1H1M ONE Stop: 08/01/25 05:31 Pharmacy Consult (Vancomycin Pharmacy To Dose 1 Each Each) 1 each IV QDAY STA Stop: 08/01/25 02:52 Sodium Chloride (Sodium Chloride Rt Sravani 0.9% 3 Ml Nebu) 3 ml INH PRN PRN PRN Reason: SOLN Stop: 08/31/25 02:10 Discontinued Medications Albuterol (Albuterol Rt 2.5 Mg/0.5 Ml Nebu) 10 mg INH X1 ONE Stop: 08/01/25 02:12 Last Admin: 08/01/25 03:41 Dose: 10 mg Documented By: JOSE ANGEL Piperacillin Sod/Tazobactam (Sod 4.5 gm/ Sodium Chloride) 100 mls @ 200 mls/hr IV X1 ONE; Protocol Stop: 08/01/25 03:21 Last Infusion: 08/01/25 03:59 Dose: Infused Documented By: Admin: 08/01/25 03:16 Dose: 200 mls/hr Documented By: SHER Lactated Ringer's (Lactated Ringers) 500 mls @ 999 mls/hr IV .Q31M ONE Stop: 08/01/25 03:30 Last Infusion: 08/01/25 03:59 Dose: Infused Documented By: Admin: 08/01/25 03:16 Dose: 999 mls/hr Documented By: SHER Lactated Ringer's (Lactated Ringers) 1,000 mls @ 999 mls/hr IV .Q1H1M ONE Stop: 08/01/25 04:26 Last Admin: 08/01/25 03:44 Dose: 999 mls/hr Documented By: NOE Ipratropium [place] (Ipratropium Rt 0.5 Mg/ 2.5 Ml Nebu) 1 mg INH X1 ONE Stop: 08/01/25 02:12 Last Admin: 08/01/25 03:41 Dose: 1 mg Documented By: JOSE ANGEL Methylprednisolone Sodium Succinate (Methylprednisolone Sod Succ 62.5 Mg/Ml 2ml Vial) 125 mg IVP X1 ONE Stop: 08/01/25 02:12 Last Admin: 08/01/25 02:22 Dose: 125 mg Documented By: SHER see above Consultations Consultation(s) initiated? (list below): Yes Consultation #1 (Physician, Specialty, Details): Discussed case with the resident physician, attending Dr. Sol from Hospitalist service regarding admission. Discussed patients ED course, exam findings, labs, and radiology results. The Hospitalist agrees to accept the patient for admission. Time: 04:28 Diagnosis Shortness of Breath Differential Diagnosis: other (See MDM) Most likely diagnosis given after review of the tests above:: see clinical impression below Admission Indicated Admission indicated?: indicated Admission Request Was there a request for admission?: Yes Admission Attestation Admission request attestation: Discussed case with Hospitalist service regarding admission. Discussed patients ED course, exam findings, labs, and radiology results. The Hospitalist [agrees] to accept the patient for admission. Disposition Plan Disposition Plan: Admit Critical Care Time Critical Care Time Critical Care Time: Yes Total Critical Care Time (min.): 60 Attestation: Due to a high probability of clinically significant, life threatening deterioration, the patient required my highest level of preparedness to intervene emergently and I personally spent this critical care time directly and personally managing the patient. This critical care time included obtaining a history; examining the patient; pulse oximetry; ordering and review of studies; arranging urgent treatment with development of a management plan; evaluation of patient's response to treatment; frequent reassessment; and, discussions with other providers. This critical care time was performed to assess and manage the high probability of imminent, life-threatening deterioration that could result in multi-organ failure. It was exclusive of separately billable procedures and treating other patients and teaching time. Please see MDM section and the rest of the note for further information on patient assessment and treatment. Discharge Plan Plan Patient Disposition: Admit Acute Care w/in Hospital Prescriptions/Referrals Prescriptions/Med Rec: No Action insulin aspart U-100 [Novolog FlexPen U-100 Insulin] 100 unit/mL (3 mL) insulin pen 1 sliding scale dose subcut USEASDIRECTD PRN (Reason: hyperglycemia) Qty: 15 0RF Rx Instructions: Take insulin as per sliding scale pramipexole 1 mg tablet 1 mg PO QHS Qty: 30 2RF venlafaxine 150 mg capsule,extended release 24hr 150 mg PO QDAY Qty: 30 2RF metoprolol succinate 25 mg tablet extended release 24 hr 25 mg PO QDAY Qty: 30 2RF (DME) insulin syringes (disposable) 1 mL syringe See Rx Instructions .Route Qty: 500 0RF Rx Instructions: As directed (DME) pen needle, diabetic [1st Tier Unifine Pentips] 31 gauge x 1/4 needle See Rx Instructions .Route Qty: 100 0RF Rx Instructions: As directed (DME) pen needle, diabetic [Comfort EZ Pen Creola] 31 gauge x 1/4 needle See Rx Instructions .Route Qty: 100 2RF Rx Instructions: As directed insulin glargine [Lantus Solostar U-100 Insulin] 100 unit/mL (3 mL) insulin pen 35 unit subcut QAM 30 Days Qty: 10.5 2RF metformin 500 mg tablet 500 mg PO BID Qty: 60 2RF hydroxyzine HCl 25 mg tablet 25 mg PO Q6HR PRN (Reason: anxiety) Qty: 120 1RF insulin lispro 100 unit/mL solution 8 unit subcut TID 30 Days Qty: 7.2 2RF Rx Instructions: Inject 6 units subcutaneously three times daily with meals Premarin 0.625 mg/gram cream 1 mg topical .3 times weekly 30 Days Qty: 30 2RF (DME) insulin syringes (disposable) 1 mL syringe See Rx Instructions .Route Qty: 500 2RF Rx Instructions: As directed levothyroxine 100 mcg tablet 100 mcg PO QDAY 30 Days Qty: 30 2RF rosuvastatin 5 mg tablet 5 mg PO HS 30 Days Qty: 30 2RF methenamine hippurate 1 gram tablet 1 g PO BID Patient Comments: TAKE 1 TABLET BY MOUTH TWICE A DAY WITH 500 MG OF VITAMIN C Rx Instructions: TAKE 1 TABLET BY MOUTH TWICE A DAY WITH 500 MG OF VITAMIN C omeprazole 40 mg Capsule,Delayed Release(Dr/Ec) 40 mg PO QDAY aspirin 81 mg Tablet 81 mg PO QDAY ascorbic acid (vitamin C) [Vitamin C] 500 mg Tablet 500 mg PO BID hydrocodone-acetaminophen 10-325 mg tablet 1 tab PO TID PRN (Reason: pain) Probiotic 20 billion cell capsule 25,000 mmu cells PO QDAY Rx Instructions: administer with a meal calcium carbonate-vitamin D3 [Calcium 600 + D(3)] 600 mg-5 mcg (200 unit) tablet 0.5 tab PO QDAY prednisone 10 mg tablet See Taper PO QDAY Qty: 375 0RF Taper: Prednisone Taper 30 mg TWICE A DAY for 30 Days and 0 Hour 30 mg DAILY for 30 Days and 0 Hour 20 mg DAILY for 30 Days and 0 Hour 10 mg DAILY for 30 Days 5 mg DAILY for 30 Days (DME) pen needle, diabetic [Advocate Pen Needle] 31 gauge x 3/16 needle See Rx Instructions .Route Qty: 1200 0RF Rx Instructions: As directed Referrals: No Primary/Family,Physician [Primary Care Provider] - In 1 week Problem List Clinical Impression: Sepsis, Pneumonia, Urinary tract infection, Acute and chronic respiratory failure with hypercapnia, History of chronic carbon dioxide retention, Acute hypoxic on chronic hypercapnic respiratory failure, Elevated troponin Patient/Caregiver Discharge Instructions Print Language: Icelandic Stand Alone Forms: [employer]abel Award Info., Patient Portal Info Letter
--- NOTE | 2025-08-01 02:13 | XR_ITS ---
EXAMINATION: AP chest single view TECHNIQUE: AP portable semiupright chest single view Date and time: August 01, 2025, 0252 hours, comparison May 28, 2025 INDICATIONS: Sepsis protocol. FINDINGS: Moderate enlargement cardiac contour Prominent vascular congestion Extensive bilateral lung opacity consistent with pneumonia Severe osteopenia IMPRESSION: Extensive bilateral pneumonia, consider associated mild heart failure
--- NOTE | 2025-08-01 02:13 | EKG_ITS ---
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
[2025-08-01 02:19] LABS: Base Excess 4 (-3-3); HCO3 33 mEq/L (20-26); Inspired Oxygen, FIO2 100 %; PCO2 74 mmHg (32.0-48.0); PO2 62 mmHg (83-108); pH, Arterial 7.25 (7.35-7.45)
[2025-08-01 02:22] LABS: Allen Test Performed/OK; O2 Saturation 95 % (91-98); Puncture Site Right Brachial
[2025-08-01] MEDS: MethylPREDNISolone SOD SUCC 62.5 MG/ML 2ML VIAL 125 MG IVP (02:22)
[2025-08-01 02:28] LABS: Lactate (Lactic Acid) 2.4 mMol/L (0.4-2.0)
[2025-08-01 02:30] LABS: Basophils # (Auto) 0.1 Thou/mm3 (0.0-0.2); Basophils % (Auto) 0 % (0-2.5); Eosinophils # (Auto) 0.1 Thou/mm3 (0.0-0.5); Eosinophils % (Auto) 1 % (0-10); Hematocrit 41.7 % (36.0-46.0); Hemoglobin 11.8 g/dL (12.0-16.0); Immature Granulocytes Auto 1.58 Thou/mm3 (0.00-0.00); Lymphocytes # (Auto) 1.9 Thou/mm3 (1.0-4.8); Lymphocytes % (Auto) 8 % (10-50); Mean Corpuscular HGB Conc 28.3 g/dl (31.0-37.0); Mean Corpuscular Hemoglobin 28.5 pg (25.0-35.0); Mean Corpuscular Volume 101 fL (80-100); Monocytes # (Auto) 0.9 Thou/mm3 (0.0-0.8); Monocytes % (Auto) 4 % (0-12); Neutrophils # (Auto) 18.6 Thou/mm3 (1.8-7.7); Neutrophils % (Auto) 80 % (37-80); Nucleated Red Blood Cell # 0.26 Thou/mm3 (0.00-0.00); Nucleated Red Blood Cell % 1 /100 WBC (0); Platelet Count 250 Thou/mm3 (140-440); RDW Standard Deviation 65.8 fL (36.4-46.3); Red Blood Count 4.14 Miln/mm3 (4.00-5.20); White Blood Count 23.2 Thou/mm3 (3.6-11.0)
[2025-08-01 02:52] LABS: Alanine Aminotransferase 42 U/L (10-49); Albumin, Serum 4.1 gm/dL (3.4-4.8); Albumin/Globulin Ratio 1.8 (1.2-2.2); Alkaline Phosphatase 70 U/L (46-116); Anion Gap 8 (7-16); Aspartate Amino Transferase 40 U/L (0-34); BUN/Creatinine Ratio 23 Ratio (12-20); Bilirubin,Total 0.3 mg/dL (0.3-1.2); Blood Urea Nitrogen 27 mg/dL (9-23); Calcium 9.8 mg/dL (8.3-10.6); Calcium (Corrected) 9.8 mg/dL (8.5-10.1); Carbon Dioxide 33.1 mMol/L (20.0-31.0); Chloride 107 mMol/L (98-107); Creatinine (Component) 1.2 mg/dL (0.6-1.3); Estimated Creatinine Clearance 38.6 mL/min (>60); Globulin 2.3 gm/dL (2.3-3.5); Glucose 241 mg/dL (74-106); Osmolality,Calculated 307 (275-295); Potassium 5.2 mMol/L (3.4-5.1); Sodium 148 mMol/L (136-145); Total Protein 6.4 gm/dL (5.7-8.2); eGFR 43 See Note
[2025-08-01 02:55] LABS: Procalcitonin 0.12 ng/ml (0.0-0.49); Troponin I 0.051 ng/mL (0.0-0.045)
[2025-08-01 02:56] LABS: Collection Type, Urine Catheter
[2025-08-01 02:58] LABS: INR 1.0 (0.9-1.3); Partial Thromboplastin Time 20.0 Seconds (22.0-36.0); Prothrombin Time 10.3 Seconds (9.0-12.2)
--- NOTE | 2025-08-01 02:58 | XR_ITS ---
Examination: CT chest, without intravenous contrast. Sagittal and coronal 2-D reconstructions. Exam date and time: August 01, 2025, 0528 hours INDICATIONS: Shortness of breath today CTDI:vol (mGy) 33.4 DLP: (mGycm) 1208 Technique: Multiple 3.0 mm axial sections of the chest to been obtained. Bone and lung density settings are obtained. Sagittal and coronal 2-D reconstructions have been obtained. Low dose protocols were performed. One or more of the following dose reduction techniques were used; automated exposure control, adjustment of the mA and/or KV according to patient size, use of iterative reconstruction technique. Findings: No thoracic aortic aneurysm dilatation Pulmonary artery segments are enlarged, main segment 43 mm Heavy calcification left anterior descending left main coronary arteries Enlarged cardiac contour with prominent vascular congestion Extensive bilateral pneumonia and/or pulmonary edema Retrocardiac gastric hernia No visualized liver or splenic lesion Absent gallbladder No pancreatic or adrenal mass Atrophic right kidney with nonobstructing right renal calculi IMPRESSION: Pulmonary artery hypertension Severe pneumonia and/or edema throughout the lungs
[2025-08-01 02:59] LABS: B-Type Natriuretic Peptide 193 pg/mL (0-100)
[2025-08-01 03:04] LABS: Amorphous Crystals,Urine Present (Absent); Bilirubin,Urine Negative (Negative); Blood,Urine Trace (Negative); Budding Yeast,Urine Present; Clarity,Urine Clear (Clear/Hazy); Color,Urine Yellow (Lt Yel-Yel); Glucose, Urine Negative (Negative); Ketones,Urine Negative (Negative); Leukocyte Esterase,Urine Positive (Negative); Nitrite,Urine Positive (Negative); PH,Urine 6.0 (5.0-7.0); Protein,Urine 1+ (Neg - Trace); RBC,Urine 44 /hpf (0-3); Specific Gravity,Urine 1.027 (1.001-1.035); Squamous Epithelial Cell,Urine < 1 /hpf (0-5); Urobilinogen,Urine Negative mg/dL (0.0-1.0); WBC,Urine 76 /hpf (0-5)
[2025-08-01] MEDS: RINGERS LACTATED 500 ML 500 ML 999 ML IV (03:16)
[2025-08-01] MEDS: PIPER/TAZO INJ 4.5 GM in SODIUM CHLORIDE 0.9% (POP) 100 ML IV (03:16)
[2025-08-01] MEDS: ALBUTEROL RT 2.5 MG/0.5 ML NEBU 10 MG INH (03:41)
[2025-08-01] MEDS: IPRATROPIUM RT 0.5 MG/ 2.5 ML NEBU 1 MG INH (03:41)
[2025-08-01] MEDS: VANCOMYCIN/NS 1 GM IVPB 200 ML IV ×2 (03:44→05:46)
[2025-08-01] MEDS: RINGERS LACTATED 1000 ML 1,000 ML 999 ML IV ×2 (03:44→05:40)
--- NOTE | 2025-08-01 05:17 | ESHP_ITS ---
<Statement entered by Leighton Cronin MD - 08/02/25 06:28> I have personally seen and examined the patient, agree with residents assessment and plan Patient plan of care was discussed with the attending physician, Dr. Sweta Cronin, PGY2 Documentation for date of: 08/01/25 HPI History of Present Illness History of present illness: HPI: 89-year-old female past medical history of interstitial lung disease, pulmonary fibrosis, chronic CO2 retention on 2 L home oxygen and BiPAP, HFpEF, bedbound, recurrent UTIs, hypothyroidism, right breast cancer status postlumpectomy, insulin-dependent type 2 diabetes, GERD, depression, and chronic back pain who presented to the ED in the contact lens inspector hours of 08/01/2025 with hypoxemia. Patient was on BiPAP and most history was gathered from the caregiver. Per the caregiver, patient ate lunch the day before and began to have coughing episodes. These episodes were intensified after the patient ate half of her dinner, at which time the caregiver took away the patient's food. Caregiver mentioned that the patient was coughing up phlegm with no food particles, and was concerned for aspiration and therefore called EMS. When the ambulance arrived it was reported that the patient was saturating in the high 30s. Per EMS the patient was saturating at 68% on 2 L nasal cannula and went up to the mid 80s after 2 albuterol treatments and route. Upon arrival to the ED, the patient was saturating in the 80s and was placed on BiPAP. She was found to be acidotic with a lactic acid of 2.4 and have an ABG significant for a pH of 7.25, pCO2 of 74, PaO2 of 62, bicarb of 33. Patient was also found to have a UTI and have a troponin of 0.051. EKG showed sinus tachycardia with a right bundle branch block with no acute ST segment changes. Patient was admitted for acute on chronic hypoxic hypercapnic respiratory failure secondary to interstitial lung disease and possible aspiration pneumonia as well as UTI. ED Course: * Significant vitals on arrival: Pulse 128, respiratory rate 28, saturating at 95% on BiPAP with an FiO2 of 100. * Significant labs: Lactic acid 2.4, WBC 23.2, hemoglobin 11.8, MCV 101, sodium 148, potassium 5.2, BUN 27, creatinine 1.2, troponin 0.051, BNP 193. * ABG significant for a pH of 7.25, pCO2 of 74, PaO2 of 62, bicarb of 33 * Imaging: EKG showed sinus tachycardia with a rate of 131 and QTc of 473 with a right bundle branch block and no acute ST segment changes. Chest x-ray pending official read, appears to show bilateral opacities. * Urine: 1+ protein, 44 RBC, 76 WBC, amorphous crystals, budding yeast, leukocyte esterase positive * ED intervention: Patient received 125 mg IV push methylprednisolone, Zosyn, treatment with albuterol, ipratropium, a dose of vancomycin, 2.5 L of LR History: * Past medical history: As above in HPI * Surgical history: Right breast lumpectomy * Social history: Lives at home, 24-hour caregiver support Allergies: * Cefuroxime * Topical zinc * Iodine contrast * Sulfa * Influenza virus * Cefuroxime Home Medications: (Pending Med Rec) * Vitamin C 500 mg twice a day * Aspirin 81 mg daily * Calcium vitamin D supplement * Estrogen vaginal cream * [place] 5-3 25 p.o. 3 times daily as needed for pain * Hydroxyzine 25 mg tablet every 6 hours as needed for anxiety * Levothyroxine 100 mcg daily * Metformin 500 mg daily * 35 insulin degludec every morning, 8 units 3 times daily with meals, plus sliding scale * Methenamine 1 g p.o. twice daily * Metoprolol succinate 25 mg daily * Omeprazole 40 mg daily * Pramipexole 1 mg daily * Prednisone 20 mg daily, taper currently * Rosuvastatin 5 mg nightly * Venlafaxine 150 mg XR daily CODE STATUS: DNR/DNI Review of Systems Review of Systems Narrative Review of Systems: Review of Systems: (Mostly obtained from the patient's caregiver, patient did contribute however was only able to give yes or no answers due to being on BiPAP) * General: Denies fevers, chills. * HEENT: Denies headache, congestion, or sore throat. * Cardiac: Denies chest pain or palpitations. * Pulmonary: Shortness of breath and cough of 1 day duration. * GI: Chronic constipation. Denies nausea, vomiting, diarrhea, melena, or hematochezia. * : Denies dysuria, hematuria, frequency, or urgency. * MSK: Denies pain in the extremities, joints, or myalgias. * Neuro: Denies weakness, numbness, vision changes, or speech difficulty. Exam Vital Signs Temp Pulse Resp BP Pulse Ox O2 Del Method O2 Flow Rate 98.4 F 114 H 29 H 143/64 H 96 BiPAP 40 08/01/25 04:16 08/01/25 04:16 08/01/25 04:16 08/01/25 04:16 08/01/25 04:16 08/01/25 04:16 08/01/25 03:35 FiO2 100 08/01/25 03:44 Narrative Exam General: Chronically ill-appearing woman on BiPAP, obese. Neurologic: GCS 15. No gross neurological deficit, and patient able to move all 4 extremities. HEENT: Normocephalic, atraumatic, mucous membranes moist. Pupils reactive to light. Heart: Tachycardic, regular rhythm, normal S1 and S2, no murmurs. Lungs: Diffuse crackles bilaterally. Abdomen: Obese, firm, distended, nontender. No guarding or rebound tenderness. Extremities: No edema. 2+ radial and dorsalis pedis pulses bilaterally. Skin: Actinic keratoses on the shoulders bilaterally. Warm. Dry. : Queen in place, draining yellow urine. Results: Labs 08/16/25 05:45 08/16/25 05:45 Labs: Short CBC 08/01/25 Range/Units 02:15 WBC 23.2 H (3.6-11.0) Thou/mm3 Hgb 11.8 L (12.0-16.0) g/dL Hct 41.7 (36.0-46.0) % Plt Count 250 (140-440) Thou/mm3 BMP 08/01/25 02:15 Sodium 148 H Potassium 5.2 H Chloride 107 Carbon Dioxide 33.1 H BUN 27 H Creatinine 1.2 Glucose 241 H Calcium 9.8 Cardiac Enzymes 08/01/25 Range/Units 02:15 Troponin I 0.051 H* (0.0-0.045) ng/mL Liver Function 08/01/25 Range/Units 02:15 Total Bilirubin 0.3 (0.3-1.2) mg/dL AST 40 H (0-34) U/L ALT 42 (10-49) U/L Alkaline Phosphatase 70 (46-116) U/L Albumin 4.1 (3.4-4.8) gm/dL Urine 08/01/25 Range/Units 02:10 Urine Color Yellow (Lt Yel-Yel) Urine Clarity Clear (Clear/Hazy) Urine pH 6.0 (5.0-7.0) Ur Specific Filer 1.027 (1.001-1.035) Urine Protein 1+ A (Neg - Trace) Urine Glucose (UA) Negative (Negative) ABG Interpretation ABG results: 08/01/25 02:15 ABG pH 7.25 L ABG pCO2 74 H* ABG pO2 62 L ABG HCO3 33 H ABG O2 Saturation 95 ABG Base Excess 4 H Quality Measures Quality Measures VTE prophylaxis Advance care planning discussed with:: patient and other (Care-sound assistant.) Medications Home Medications and Allergies Home Medications ?Medication ?Instructions ?Recorded ?Confirmed ?Type omeprazole 40 mg capsule,delayed 40 mg PO QDAY 1 08/02/25 History release hydrocodone 10 mg-acetaminophen 1 tab PO TID PRN pain 12/27/24 08/02/25 History 325 mg tablet hydroxyzine HCl 25 mg tablet 25 mg PO BID PRN anxiety 08/02/25 08/02/25 History Allergies Allergy/AdvReac Type Severity Reaction Status Date / Time cefuroxime Allergy Intermediate Swelling Verified 06/08/25 14:34 of Lip/Tongue/Throat zinc Allergy Intermediate Rash Verified 06/08/25 14:34 iodine Allergy Unknown Verified 06/08/25 14:34 shellfish derived Allergy Unknown Verified 06/08/25 14:34 Sulfa (Sulfonamide Allergy Unknown Verified 06/08/25 14:34 Antibiotics) Influenza Virus Vaccines Allergy Verified 06/08/25 14:34 Visit Medications Acetaminophen (Acetaminophen 325 Mg Tablet) 650 mg PO Q6H PRN PRN Reason: Fever >100.4 Stop: 08/31/25 05:04 Aspirin (Aspirin Ec 81 Mg Tabec) 81 mg PO DAILY LISETTE Stop: 08/31/25 08:59 Atorvastatin Calcium (Atorvastatin Calcium 10 Mg Tablet) 10 mg PO HS LISETTE Stop: 08/31/25 20:59 Heparin Sodium (Porcine) (Heparin Sod Inj 5000 Unit/Ml Vial) 5,000 unit SC Q8HR [facility]TE Stop: 08/15/25 05:59 Vancomycin/Sodium Chloride (Vancomycin/Ns 1 Gm Ivpb) 200 mls @ 120 mls/hr IV Q100M [facility]TE Stop: 08/01/25 06:19 Last Admin: 08/01/25 03:44 Dose: 120 mls/hr Lactated Ringer's (Lactated Ringers) 1,000 mls @ 999 mls/hr IV .Q1H1M ONE Stop: 08/01/25 05:31 Levothyroxine Sodium (Levothyroxine Sodium 100 Mcg Tablet) 100 mcg PO DAILY LISETTE Stop: 08/31/25 08:59 Metoprolol Succinate (Metoprolol Succinate Xl 25 Mg Tabcr) 25 mg PO DAILY [facility]ETTE Stop: 08/31/25 08:59 Pantoprazole Sodium (Pantoprazole Inj 40 Mg Vial) 40 mg IVP QDAY [facility] Stop: 08/31/25 08:59 Pharmacy Consult (Vancomycin Pharmacy To Dose 1 Each Each) 1 each IV QDAY ST[facility] Stop: 08/01/25 02:52 Polyethylene Glycol (Polyethylene Glycol 17 Gm Packet) 17 gm PO DAILY LISETTE Stop: 08/31/25 08:59 Pramipexole Dihydrochloride (Pramipexole 0.25 Mg Tablet) 1 mg PO HS [facility]TE Stop: 08/31/25 20:59 Prednisone (Prednisone 20 Mg Tablet) 20 mg PO DAILY L[facility]ETTE Stop: 08/31/25 08:59 Sennosides (Senna Tablet) 1 tab PO QDAY [facility]; Protocol Stop: 08/31/25 08:59 Sodium Chloride (Sodium Chloride Rt Sravani 0.9% 3 Ml Nebu) 3 ml INH PRN PRN PRN Reason: SOLN Stop: 08/31/25 02:10 Venlafaxine HCl (Venlafaxine Xr 37.5 Mg Capcr) 150 mg PO DAILY [facility]ETTE Stop: 08/31/25 08:59 Discontinued Medications Albuterol (Albuterol Rt 2.5 Mg/0.5 Ml Nebu) 10 mg INH X1 ONE Stop: 08/01/25 02:12 Last Admin: 08/01/25 03:41 Dose: 10 mg Piperacillin Sod/Tazobactam (Sod 4.5 gm/ Sodium Chloride) 100 mls @ 200 mls/hr IV X1 ONE; Protocol Stop: 08/01/25 03:21 Last Infusion: 08/01/25 03:59 Dose: Infused Lactated Ringer's (Lactated Ringers) 500 mls @ 999 mls/hr IV .Q31M ONE Stop: 08/01/25 03:30 Last Infusion: 08/01/25 03:59 Dose: Infused Lactated Ringer's (Lactated Ringers) 1,000 mls @ 999 mls/hr IV .Q1H1M ONE Stop: 08/01/25 04:26 Last Admin: 08/01/25 03:44 Dose: 999 mls/hr Ipratropium Tilden (Ipratropium Rt 0.5 Mg/ 2.5 Ml Nebu) 1 mg INH X1 ONE Stop: 08/01/25 02:12 Last Admin: 08/01/25 03:41 Dose: 1 mg Methylprednisolone Sodium Succinate (Methylprednisolone Sod Succ 62.5 Mg/Ml 2ml Vial) 125 mg IVP X1 ONE Stop: 08/01/25 02:12 Last Admin: 08/01/25 02:22 Dose: 125 mg Ondansetron HCl (Ondansetron Inj 2 Mg/Ml Inj 2 Ml) 4 mg IVP Q6H PRN; Protocol PRN Reason: NAUSEA OR VOMITING Stop: 08/31/25 05:04 Assessment & Plan Plan Summary: 89-year-old female past medical history of interstitial lung disease, pulmonary fibrosis, chronic CO2 retention on 2 L home oxygen and BiPAP, HFpEF, bedbound, recurrent UTIs, hypothyroidism, right breast cancer status postlumpectomy, insulin-dependent type 2 diabetes, GERD, depression, and chronic back pain who presented to the ED in the contact lens inspector hours of 08/01/2025 with hypoxemia. Upon arrival to the ED, the patient was saturating in the 80s and was placed on BiPAP. She was found to be acidotic with a lactic acid of 2.4 and have an ABG significant for a pH of 7.25, pCO2 of 74, PaO2 of 62, bicarb of 33. Patient was also found to have a UTI and have a troponin of 0.051. EKG showed sinus tachycardia with a right bundle branch block with no acute ST segment changes. Patient was admitted for acute on chronic hypoxic hypercapnic respiratory failure secondary to interstitial lung disease and possible aspiration pneumonia as well as UTI. #Acute on chronic hypoxic hypercapnic respiratory failure secondary to #Aspiration pneumonia versus #Interstitial lung disease #Chronic carbon dioxide retention #Lactic acidosis * Patient presented after intensified coughing after lunch the day before presentation, coughing further intensified after caregiver fed the patient dinner. The patient was coughing up phlegm not food, and the caregiver suspected aspiration * Upon EMS arrival the patient was saturating in the high 30s, received breathing treatment, was saturating in the 60[address] on her way to the hospital, was saturating in 80s on arrival to ED, and was placed on BiPAP * Initial ABG showed pH 7.25, pCO2 74, pO2 62, bicarb 33, represents respiratory acidosis with early stages of metabolic compensation represented by increased bicarb * Lactate 2.4, repeat was over 18 (error) * Chest x-ray pending official read, showed bilateral opacities * Patient requires BiPAP at home whenever she sleeps or naps and uses home oxygen * Patient is currently on a prednisone taper Plan: * BiPAP as needed * DuoNebs every 4 hours scheduled * Prednisone 20 mg daily (currently on a taper, patient should continue this dose for 1 week) * Aspiration precautions #Acute cystitis w hematuria #Leukocytosis * Urinalysis showed 1+ protein, 44 RBC, 76 WBC, amorphous crystals, budding yeast, leukocyte esterase positive * Previous culture was positive for pansensitive Klebsiella Ozaenae * Patient denied dysuria * WBC 23.2, may support infectious etiology Plan: * Zosyn 2.25 g every 8 hours * Urine cultures ordered * Blood cultures ordered * Sputum cultures ordered #NSTEMI * Patient presented with a troponin of 0.051 * EKG showed sinus tachycardia with a rate of 131 QTc 473, widened upright QRS in V1 may represent right bundle branch block, No acute ST segment changes in other leads Plan: * Will repeat troponin #Insulin-dependent type 2 diabetes * Per caregiver the patient is on 35 units of Lantus every morning, sliding scale, and 8 units regular 3 times daily with meals * A1c 2 months ago was 6.4 * Glucose on arrival 241 Plan: * Insulin sliding scale * Carb consistent diet once patient passes swallow eval #Chronic normocytic anemia * Hemoglobin 11.8, MCV 101 * Appears to be a chronic issue * Likely secondary to anemia of chronic disease secondary to history of breast cancer and interstitial lung disease * No suspicion for active bleed at this time Plan: * No direct intervention at this time #Hypernatremia #Hyperkalemia * Sodium 148, potassium 5.2 * Likely secondary to decreased oral intake, lack of insulin, or hyperglycemia Plan: * Patient received fluids in the ED and will start receiving insulin sliding scale #Hyperlipidemia * Per patient history Plan: * Started atorvastatin 10 mg nightly #Hypothyroidism * Per patient history Plan: * Levothyroxine 100 mcg daily #Hypertension * Per patient history Plan: * Metoprolol succinate 25 mg p.o. daily #Chronic constipation * Per caregiver, the patient's last bowel movement was 07/30/2025 Plan: * Daily senna and MiraLAX #Depression * Per patient history Plan: * Venlafaxine 150 mg XR p.o. daily #Parkinson's? * Per patient history Plan: * Resumed home pramipexole 1 mg nightly Hospital Maintenance: DVT ppx: Heparin 5000 units subcu every 8 hours GI ppx: Protonix 40 mg IV daily Diet: Pending swallow eval, patient is on BiPAP IV lines: Peripheral IVs Queen: In place Code status: DNR/DNI Dispo: Telemetry, admitted for acute on chronic hypoxic hypercapnic respiratory failure secondary to interstitial lung disease versus aspiration pneumonia and UTI. Patient was seen and discussed with my attending physician Dr. Sweta JOSE and my senior resident Dr. Mehrdad JOSE PGY-2. Marshall Hutchins DO PGY-1. Attending Provider Attestation/Addendum After examination of the patient and review of the clinical data I feel that this patient needs admission to the hospital for further treatment/evaluation. Plan of care discussed with patient and is in agreement. I Jes Sol MD, attest that I was physically present for mackenzie portions of evaluation, and examined patient, labs and imagings and plan of care were discussed with IM residents team, and I agree with the findings and plans documented above.
[2025-08-01 05:24] LABS: Reflex Lactate? Y
--- NOTE | 2025-08-01 06:13 | PRELIM_ITS ---
CT scan of the chest without intravenous contrast (axial sections with sagittal and coronal reformats) August 01, 2025 at 0528 hours Clinical History: concern for pneumonia, PE (contrast allergy). Comparison: February 04, 2025. Findings: There are bilateral dependent pulmonary opacities, which may represent sequelae of aspiration. There are ground-glass opacities, consolidation and interstitial septal thickening in bilateral lungs. No evidence of pleural effusion or pneumothorax. There are few enlarged mediastinal lymph nodes. The thoracic aorta demonstrates atheromatous calcification without evidence of aneurysm. Coronary artery calcification is noted. There is no pericardial effusion. There is mild cardiomegaly. The bones are osteopenic. There is a chronic-appearing compression deformity of L1 and L2 vertebrae. A small hiatal hernia is present. The esophagus is distended with air fluid level with mild wall thickening. The gallbladder is surgically absent. There are few nonobstructing cacluli in the right kidney. Impression: Bilateral dependent pulmonary opacities, which may represent sequelae of aspiration. Findings suggestive of interstitial pulmonary edema. Recommend clinical correlation and follow-up. Distended esophagus with air fluid level which may represent reflux versus achalasia. Recommend clinical correlation and follow-up. Other findings as described above. Report Electronically Signed By: Lexi Carbone 08/01/2025 6:13:26 AM [EST]
[2025-08-01 06:34] LABS: Lactic Acid, 3 HR 18.0 mMol/L (0.4-2.0)
[2025-08-01] MEDS: HEPARIN SOD INJ 5000 UNIT/ML VIAL SC ×3 (07:06→20:59)
[2025-08-01 07:23] LABS: Albumin, Serum 1.0 gm/dL (3.4-4.8); BUN/Creatinine Ratio 55 Ratio (12-20); Blood Urea Nitrogen 11 mg/dL (9-23); Calcium (Corrected) 8.8 mg/dL (8.5-10.1); Chloride 108 mMol/L (98-107); Creatinine (Component) < 0.2 mg/dL (0.6-1.3); Estimated Creatinine Clearance 231.4 mL/min (>60); Glucose 73 mg/dL (74-106); Osmolality,Calculated 277 (275-295); Phosphorous 1.3 mg/dL (2.4-5.1); Potassium 4.3 mMol/L (3.4-5.1); Sodium 140 mMol/L (136-145); Troponin I 0.030 ng/mL (0.0-0.045); eGFR > 60 See Note
[2025-08-01 07:27] LABS: Calcium 6.4 mg/dL (8.3-10.6)
[2025-08-01 07:28] LABS: Anion Gap 16 (7-16); Carbon Dioxide 16.0 mMol/L (20.0-31.0)
[2025-08-01] MEDS: ALBUTEROL/IPRATROPIUM (Duoneb) RT SOL 3 ML NEBU INH ×5 (07:47→22:24)
[2025-08-01 09:10] LABS: Base Excess, Venous 0 (-3-3); Lactate (Lactic Acid) 2.7 mMol/L (0.4-2.0); O2 Saturation, Venous 86 % (96-97); PCO2, Venous 63 mmHg (36-56); pH, Venous 7.27 (7.33-7.66)
[2025-08-01 09:36] LABS: Magnesium 1.8 mg/dL (1.6-2.6); Phosphorous 3.8 mg/dL (2.4-5.1)
--- NOTE | 2025-08-01 10:43 | ESPR_ITS ---
<Statement entered by John Paul Warren MD - 08/11/25 08:25> I reviewed above note and agree with findings and plans. I have also personally examined the patient with medicine team and went over assessment and plan with medical team including music industry internship and resident physician. <Statement entered by Bucky Wolff MD - 08/02/25 13:33> Patient was examined and case was reviewed with team including attending physician. Note reviewed, I agree with most of its contents and agree with the patient's care. Bucky Wolff MD PGY-2 Documentation for date of: 08/01/25 Subjective Subjective Interval history: Patient was evaluated this morning with oral surgery assistant present at the bedside. Patient is currently on BIPAP with a flow rate of 40, saturating at 93%. The patient is alert and oriented to person, place, and year, and reports no complaints at this time. Per oral surgery assistant, patient has had several hospitalizations due to similar symptoms of shortness of breath and asymptomatic recurrent UTIs. Blood culture came back positive for gram positive cocci resembling staph in one of the bottles - started Vancomycin. Exam Vital Signs Temp Pulse Resp BP Pulse Ox O2 Del Method O2 Flow Rate 100.2 F 122 H 29 H 123/67 95 BiPAP 40 08/01/25 10:07 08/01/25 10:07 08/01/25 10:07 08/01/25 10:07 08/01/25 10:07 08/01/25 10:07 08/01/25 10:07 FiO2 60 08/01/25 10:07 Narrative Exam Physical Exam General: Chronically ill-appearing woman on BiPAP, obese habitus. HEENT: Normocephalic, atraumatic. Heart: Tachycardic, regular rhythm, normal S1 and S2, no murmurs. Lungs: Diffuse crackles bilaterally. Abdomen: Obese, firm, distended, nontender. No guarding or rebound tenderness. Neurologic: Alert and oriented x3, no gross neurological deficit, and patient able to move all 4 extremities. Extremities: No edema, clubbing or cyanosis. No joint deformity. Skin: Warm and dry without rashes. : Queen in place, draining yellow urine. Objective Labs 08/02/25 05:20 08/02/25 05:20 Labs: Laboratory Results - last 24 hr 1208/01/25 08/01/25 02:10 02:15 05:54 WBC 23.2 H RBC 4.14 Hgb 11.8 L Hct 41.7 MCV 101 H MCH 28.5 MCHC 28.3 L RDW Std Deviation 65.8 H Plt Count 250 Neut % (Auto) 80 Lymph % (Auto) 8 L [place] % (Auto) 4 Eos % (Auto) 1 Baso % (Auto) 0 Neut # (Auto) 18.6 H Lymph # (Auto) 1.9 [place] # (Auto) 0.9 H Eos # (Auto) 0.1 Baso # (Auto) 0.1 Immature Gran # (Auto) 1.58 H Absolute Nucleated RBC 0.26 H Immature Gran % 7 H Nucleated RBC % 1 H PT 10.3 INR 1.0 APTT 20.0 L Puncture Site Right Brachial ABG pH 7.25 L ABG pCO2 74 H* ABG pO2 62 L ABG HCO3 33 H ABG O2 Saturation 95 ABG Base Excess 4 H VBG pH VBG pCO2 VBG pO2 VBG O2 Sat (Radha) VBG Base Excess FiO2 100 Sodium 148 H 140 Potassium 5.2 H 4.3 D Chloride 107 108 H Carbon Dioxide 33.1 H 16.0 L Anion Gap 8 16 BUN 27 H 11 Creatinine 1.2 < 0.2 L D Estim Creat Clear Calc 38.6 L 231.4 eGFR 43 L > 60 BUN/Creatinine Ratio 23 H 55 H Glucose 241 H 73 L D Calculated Osmolality 307 H 277 Lactic Acid 2.4 H 18.0 H* Calcium 9.8 6.4 L* D Corrected Calcium 9.8 8.8 Phosphorus 1.3 L Magnesium Total Bilirubin 0.3 AST 40 H ALT 42 Alkaline Phosphatase 70 Troponin I 0.051 H* 0.030 B-Natriuretic Peptide 193 H Total Protein 6.4 Albumin 4.1 1.0 L D Globulin 2.3 Albumin/Globulin Ratio 1.8 Procalcitonin 0.12 Ur Collection Type Catheter Urine Color Yellow Urine Clarity Clear Urine pH 6.0 Ur Specific [place] 1.027 Urine Protein 1+ A Urine Glucose (UA) Negative Urine Ketones Negative Urine Blood Trace Urine Nitrite Positive Urine Bilirubin Negative Urine Urobilinogen (Auto) Negative Ur Leukocyte Esterase Positive Urine RBC 44 H Urine WBC 76 H Ur Squamous Epith Cells < 1 Amorphous Crystals Present A Urine Bacteria None Urine Yeast (Budding) Present A 08/01/25 09:05 WBC RBC Hgb Hct MCV MCH MCHC RDW Std Deviation Plt Count Neut % (Auto) Lymph % (Auto) [place] % (Auto) Eos % (Auto) Baso % (Auto) Neut # (Auto) Lymph # (Auto) [place] # (Auto) Eos # (Auto) Baso # (Auto) Immature Gran # (Auto) Absolute Nucleated RBC Immature Gran % Nucleated RBC % PT INR APTT Puncture Site ABG pH ABG pCO2 ABG pO2 ABG HCO3 ABG O2 Saturation ABG Base Excess VBG pH 7.27 L VBG pCO2 63 H VBG pO2 Not Performed. VBG O2 Sat (Radha) 86 L VBG Base Excess 0 FiO2 Sodium Potassium Chloride Carbon Dioxide Anion Gap BUN Creatinine Estim Creat Clear Calc eGFR BUN/Creatinine Ratio Glucose Calculated Osmolality Lactic Acid 2.7 H Calcium Corrected Calcium Phosphorus 3.8 Magnesium 1.8 Total Bilirubin AST ALT Alkaline Phosphatase Troponin I B-Natriuretic Peptide Total Protein Albumin Globulin Albumin/Globulin Ratio Procalcitonin Ur Collection Type Urine Color Urine Clarity Urine pH Ur Specific [place] Urine Protein Urine Glucose (UA) Urine Ketones Urine Blood Urine Nitrite Urine Bilirubin Urine Urobilinogen (Auto) Ur Leukocyte Esterase Urine RBC Urine WBC Ur Squamous Epith Cells Amorphous Crystals Urine Bacteria Urine Yeast (Budding) ABG Interpretation ABG results: 08/01/25 08/01/25 02:15 09:05 ABG pH 7.25 L ABG pCO2 74 H* ABG pO2 62 L ABG HCO3 33 H ABG O2 Saturation 95 ABG Base Excess 4 H VBG pH 7.27 L VBG pCO2 63 H VBG pO2 Not Performed. VBG Base Excess 0 Quality Measures Quality Measures VTE prophylaxis Advance care planning discussed with:: patient and other (oral surgery assistant) Assessment & Plan Assessment Current Active Medications: Generic Name Dose Route Start Last Admin Trade Name Freq PRN Reason Stop Dose Admin Acetaminophen 650 mg 08/01/25 05:05 Acetaminophen 325 Mg Tablet PO 08/31/25 05:04 Q6H PRN Fever >100.4 Albuterol/Ipratropium 3 ml 08/01/25 07:00 08/01/25 07:47 Albuterol/Ipratropium (Duoneb) Rt Sravani 3 Ml Nebu INH 08/31/25 06:59 3 ml Q4HRRT LISETTE Administration Aspirin 81 mg 08/01/25 09:00 Aspirin Ec 81 Mg Tabec PO 08/31/25 08:59 DAILY LISETTE Atorvastatin Calcium 10 mg 08/01/25 21:00 Atorvastatin Calcium 10 Mg Tablet PO 08/31/25 20:59 HS LISETTE Dextrose 25 ml 08/01/25 05:16 Dextrose 50%-Water Inj 50 Ml Syringe IV 08/31/25 05:15 Q15MIN PRN BG 50-70 responsive npo pt Dextrose 50 ml 08/01/25 05:16 Dextrose 50%-Water Inj 50 Ml Syringe IV 08/31/25 05:15 Q15MIN PRN BG <50 OR BG <70 & pt unresponsive Glucagon 1 mg 08/01/25 05:16 Glucagon Inj 1 Mg Vial IM Q15MIN PRN BG <70, and no IV access Heparin Sodium (Porcine) 5,000 unit 08/01/25 06:00 08/01/25 07:06 Heparin Sod Inj 5000 Unit/Ml Vial SC 08/15/25 05:59 5,000 unit Q8HR LISETTE Administration Piperacillin Sod/Tazobactam 100 mls @ 200 mls/hr 08/01/25 12:00 Sod 2.25 gm/ Sodium Chloride IV 08/08/25 11:59 Q6HR [facility] Protocol Magnesium Sulfate 2 gm in 50 mls @ 25 mls/hr 08/01/25 10:40 Magnesium Sulfate Ivpb IV 08/01/25 12:39 X1 ONE Insulin Degludec 35 unit 08/01/25 09:00 Insulin Degludec 5 Unit/0.05 Ml (Per 5 Units) SC 08/31/25 08:59 QDAY [facility] Insulin Human Lispro 0 unit 08/01/25 07:30 08/01/25 08:24 Insulin Lispro (Admelog) 1 Unit/0.01 Ml Unit SC 08/31/25 07:29 Not Given ACHS [facility] Protocol Levothyroxine Sodium 100 mcg 08/01/25 06:00 08/01/25 07:36 Levothyroxine Sodium 100 Mcg Tablet PO 08/31/25 05:59 Not Given ACBR [facility] Metoprolol Succinate 25 mg 08/01/25 09:00 Metoprolol Succinate Xl 25 Mg Tabcr PO 08/31/25 08:59 DAILY [facility] Pantoprazole Sodium 40 mg 08/01/25 09:00 Pantoprazole Inj 40 Mg Vial IVP 08/31/25 08:59 QDAY [facility] Polyethylene Glycol 17 gm 08/01/25 09:00 Polyethylene Glycol 17 Gm Packet PO 08/31/25 08:59 DAILY [facility] Pramipexole Dihydrochloride 1 mg 08/01/25 21:00 Pramipexole 0.25 Mg Tablet PO 08/31/25 20:59 HS [facility] Prednisone 20 mg 08/01/25 09:00 Prednisone 20 Mg Tablet PO 08/31/25 08:59 DAILY [facility] Sennosides 1 tab 08/01/25 09:00 Senna Tablet PO 08/31/25 08:59 QDAY [facility] Protocol Sodium Chloride 3 ml 08/01/25 02:11 Sodium Chloride Rt Sravani 0.9% 3 Ml Nebu INH 08/31/25 02:10 PRN PRN SOLN Venlafaxine HCl 150 mg 08/01/25 09:00 Venlafaxine Xr 37.5 Mg Capcr PO 08/31/25 08:59 DAILY LISETTE Plan 89-year-old female with past medical history of interstitial lung disease, pulmonary fibrosis, chronic CO2 retention on 2 L home oxygen and BiPAP, HFpEF, hypothyroidism, right breast cancer status postlumpectomy, insulin-dependent type 2 diabetes, GERD, MDR UTI presented for shortness of breath, found to have hypoxemia and respiratory acidosis, admitted for chronic hypoxic hypercapnic respiratory failure likely secondary aspiration pneumonia. #Acute on chronic hypoxic hypercapnic respiratory failure, likely secondary to #Aspiration pneumonia - Known history of chronic interstitial lung disease and pulmonary fibrosis, contributing to chronic respiratory failure, chronic CO2 retention, and the need for BiPAP and home oxygen (2L). - Current acute exacerbation appears to be triggered by aspiration, likely exacerbated by recent intensified coughing after meals. The patient had worsening respiratory distress following dinner, with increasing cough and suspected aspiration of food. - Initial lactate was elevated at 2.4 --> 2.7 --> 2.3. Given the hypoxia and respiratory failure, the lactic acidosis may be due to tissue hypoperfusion and/or poor oxygenation. - Initial ABG showed pH 7.25, pCO2 74, pO2 62, bicarb 33, represents respiratory acidosis. - CXR 08/01: extensive bilateral pneumonia, prominent vascular congestion. - Patient is currently on a prednisone taper for ILD. Plan: * BiPAP as needed. * DuoNebs every 4 hours. * Continuous pulse oximetry to closely monitor oxygen saturation. * Aspiration precautions. * Patient failed nurse swallow evaluation, will continue medications in IV form. * Continue Prednisone 20mg QD. Given the patient's history of interstitial lung disease, the steroid taper should proceed as planned, maintaining the current dose for 1 more week before reassessment. * Monitor for signs of worsening pneumonia or other complications. * Sputum cultures pending. #Sepsis #Bacteremia #Lactic acidosis #Leukocytosis #UTI - Lactate: 2.4 --> 2.7 --> 2.3. - Source: Bacteremia? UTI? - Blood culture: 2/2 GPC bacteremia. - UA: 1+ protein, 44 RBC, 76 WBC, amorphous crystals, budding yeast, leukocyte esterase positive. Previous culture was positive for pansensitive Klebsiella Ozaenae. - CXR: extensive bilateral pneumonia, prominent vascular congestion. - Fluids: 30 mL/kg, 2L of LR given in ED. Plan: * Vancomycin pharmacy to dose. * Zosyn 2.25 g every 8 hours for UTI. * Urine culture pending. * Oxygen / Ventilation: BiPAP. * Renal: strict I&O, avoid nephrotoxins. * CBC/BMP daily or more frequent if unstable. * Monitor organ dysfunction resolution or progression. #NSTEMI - Likely secondary to demand ischemia. - Troponin of 0.051 --> 0.030. - EKG showed sinus tachycardia with a rate of 131 QTc 473, widened upright QRS in V1 may represent right bundle branch block, No acute ST segment changes in other leads Plan: * Continue to monitor for chest pain. #Insulin-dependent type 2 diabetes - Per caregiver the patient is on 35 units of Lantus every morning, sliding scale, and 8 units regular 3 times daily with meals. - Hemoglobin A1c 2 months ago was 6.4. - Glucose on admission was 241. Plan: * Insulin degludec 35 units QD. * Insulin sliding scale. * Carb consistent diet once patient passes swallow eval. #Chronic normocytic anemia - Hemoglobin 11.8, MCV 101. - Likely secondary to anemia of chronic disease secondary to history of breast cancer and interstitial lung disease. - No suspicion for active bleed at this time. Plan: * No direct intervention at this time. * Monitor CBC. #HFpEF EF 65% - Echo from 12/2024 showed EF 65%. - BNP 193. Plan: * Pending med recs. #Pulmonary arterial hypertension - On chest CT 08/01 #Hypernatremia (resolved) #Hyperkalemia (resolved) - On admission, sodium 148 and potassium 5.2. - Likely secondary to decreased oral intake, lack of insulin, or hyperglycemia. - Patient received fluids in the ED and will start receiving insulin sliding scale. #Hyperlipidemia Plan: * Started atorvastatin 10 mg nightly. #Hypothyroidism Plan: * Levothyroxine 100 mcg daily. #Hypertension Plan: * Metoprolol succinate 25 mg p.o. daily. #Chronic constipation - Per caregiver, the patient's last bowel movement was 07/30/2025. Plan: * Daily senna and MiraLAX. #Depression Plan: * Venlafaxine 150 mg XR p.o. daily. #Parkinson Plan: * Resumed home pramipexole 1 mg nightly. Health Maintenance Disposition: tele DVT prophylaxis: Heparin 5,000 U subQ GI prophylaxis: Pantoprazole 40 mg IV daily Diet: NPO Queen: In place Lines: Peripheral IV CODE STATUS: DNR/DNI --- Patient plan of care was discussed with the senior resident, Dr. Ulises Wolff, and attending physician, Dr. Warren. Eugene Valente, DO PGY-1
[2025-08-01] MEDS: Magnesium Sulfate 2 GM Ivpb 2 GM/50 ML BAG IV (11:07)
[2025-08-01 12:09] LABS: Reflex Lactate? Y
[2025-08-01 12:36] LABS: Lactic Acid, 3 HR 2.3 mMol/L (0.4-2.0)
[2025-08-01] MEDS: INSULIN LISPRO (AdmeLOG) 1 UNIT/0.01 ML UNIT SC ×3 (12:41→20:59)
[2025-08-01] MEDS: PIPERACILLIN/TAZO 2.25GM INJ 2.25 GM in SODIUM CHLORIDE 0.9% (POP) 100 ML IV ×3 (12:41→23:56)
--- NOTE | 2025-08-01 15:04 | PCS.ST ---
Pt on continuous BiPAP today. STUDIO SET UP WORKER will check status in AM for swallowing evaluation.
[2025-08-02] VITALS (19 sets, daily range): BP systolic 110–146; BP diastolic 61–91; PULSE 100–183; RESP 8–32; TEMP 36–36.8; O2SAT 93–98; BMI 35.9
[2025-08-02] MEDS: ALBUTEROL/IPRATROPIUM (Duoneb) RT SOL 3 ML NEBU INH ×2 (02:48→07:21)
[2025-08-02] MEDS: PIPERACILLIN/TAZO 2.25GM INJ 2.25 GM in SODIUM CHLORIDE 0.9% (POP) 100 ML IV ×3 (05:06→17:23)
[2025-08-02] MEDS: HEPARIN SOD INJ 5000 UNIT/ML VIAL SC (05:06)
[2025-08-02 05:48] LABS: Basophils # (Auto) 0.1 Thou/mm3 (0.0-0.2); Basophils % (Auto) 1 % (0-2.5); Eosinophils # (Auto) 0.0 Thou/mm3 (0.0-0.5); Eosinophils % (Auto) 0 % (0-10); Hematocrit 36.3 % (36.0-46.0); Hemoglobin 10.6 g/dL (12.0-16.0); Immature Granulocytes Auto 0.23 Thou/mm3 (0.00-0.00); Lymphocytes # (Auto) 0.5 Thou/mm3 (1.0-4.8); Lymphocytes % (Auto) 4 % (10-50); Mean Corpuscular HGB Conc 29.2 g/dl (31.0-37.0); Mean Corpuscular Hemoglobin 29.0 pg (25.0-35.0); Mean Corpuscular Volume 99 fL (80-100); Monocytes # (Auto) 0.4 Thou/mm3 (0.0-0.8); Monocytes % (Auto) 3 % (0-12); Neutrophils # (Auto) 11.8 Thou/mm3 (1.8-7.7); Neutrophils % (Auto) 91 % (37-80); Nucleated Red Blood Cell # 0.06 Thou/mm3 (0.00-0.00); Nucleated Red Blood Cell % 1 /100 WBC (0); Platelet Count 168 Thou/mm3 (140-440); RDW Standard Deviation 66.1 fL (36.4-46.3); Red Blood Count 3.66 Miln/mm3 (4.00-5.20); White Blood Count 13.1 Thou/mm3 (3.6-11.0)
[2025-08-02 06:29] LABS: Alanine Aminotransferase 46 U/L (10-49); Albumin, Serum 3.7 gm/dL (3.4-4.8); Albumin/Globulin Ratio 1.8 (1.2-2.2); Alkaline Phosphatase 52 U/L (46-116); Anion Gap 9 (7-16); Aspartate Amino Transferase 20 U/L (0-34); BUN/Creatinine Ratio 32 Ratio (12-20); Bilirubin,Total 0.6 mg/dL (0.3-1.2); Blood Urea Nitrogen 35 mg/dL (9-23); Calcium 9.9 mg/dL (8.3-10.6); Calcium (Corrected) 10.1 mg/dL (8.5-10.1); Carbon Dioxide 32.2 mMol/L (20.0-31.0); Chloride 108 mMol/L (98-107); Creatinine (Component) 1.1 mg/dL (0.6-1.3); Estimated Creatinine Clearance 43.0 mL/min (>60); Globulin 2.1 gm/dL (2.3-3.5); Glucose 190 mg/dL (74-106); Magnesium 2.2 mg/dL (1.6-2.6); Osmolality,Calculated 309 (275-295); Phosphorous 3.6 mg/dL (2.4-5.1); Potassium 4.9 mMol/L (3.4-5.1); Sodium 149 mMol/L (136-145); Total Protein 5.8 gm/dL (5.7-8.2); eGFR 48 See Note
[2025-08-02 06:35] LABS: Glucose Estimated Average 143 mg/dL (80-131); Hemoglobin A1C 6.6 % Hgb (4.8-6.0)
--- NOTE | 2025-08-02 07:42 | ECHO_ITS ---
Patient Info Name: Adelaida Coffman Age: 89 years : 1935 Gender: Female Ht: 170 cm Wt: 104 kg BSA: 2.26 m2 BP: 146 / 68 mmHg HR: 116 bpm Exam Date: 08/02/2025 9:26 AM Admit Date: 08/01/2025 Site: [facility] Room Number: 266 Patient Status: I Technical Quality: Fair Exam Type: CA echo doppler complete Log Hooker: Oanh Castillo Ordering Physician: Eugene Valente Study Info Indications GPC bacteremia - Primary Location: S2NX Left Ventricular Outflow Tract Name Value Normal LVOT 2D LVOT Diameter 2.0 cm LVOT Doppler LVOT Peak Velocity 67 cm/s LVOT Mean Gradient 1 mmHg LVOT VTI 11 cm LVOT VTI/AV VTI Ratio 0.5 LVOT Stroke Volume 33 ml Pulmonic Valve Name Value Normal PV Doppler PV Peak Velocity 96 cm/s Mitral Valve Name Value Normal MV Doppler MV Decel [place] 482 cm/s2 MV PHT 31 ms MV Area (PHT) 7.2 cm2 4.0-5.0 MV Diastolic Function MV E Peak Velocity 51 cm/s MV A Peak Velocity 58 cm/s MV E/A 0.9 MV Annular TDI MV Septal e' Velocity 6.4 cm/s MV E/e' (Septal) 7.9 MV Lateral e' Velocity 8.2 cm/s MV E/e' (Lateral) 6.2 MV e' Average 7.29 cm/s MV E/e' (Average) 7.1 Tricuspid Valve Name Value Normal TV Regurgitation Doppler TR Peak Velocity 125 cm/s Estimated PAP/RSVP RA Pressure 3 mmHg <=5 PA Systolic Pressure 9 mmHg <36 RV Systolic Pressure 9 mmHg <36 TV Annular TDI TV Lateral Kaila s' Velocity 10.2 cm/s >=9.5 Aortic Valve Name Value Normal AV 2D/MM AV Cusp Sep (MM) 1.3 cm AV Doppler AV Peak Velocity 97 cm/s AV Mean Gradient 2 mmHg AV VTI 21 cm AV Area (Cont Eq VTI) 1.6 cm2 >=3.0 AV Area (Cont Eq Hernandez) 2.2 cm2 AV DI (Hernandez) 0.69 AV Regurgitation 2D LVOT Area 3.1 cm2 Ventricles Name Value Normal LV Dimensions 2D/MM IVS Diastolic Thickness (2D) 1.4 cm 0.6-0.9 LVID Diastole (2D) 4.4 cm 3.8-5.2 LVIW Diastolic Thickness (2D) 1.3 cm 0.6-0.9 LVID Systole (2D) 3.0 cm 2.2-3.5 LVOT Diameter 2.0 cm LV Mass (2D Cubed) 227.51 g 67.00-162.00 LV Mass Index (2D Cubed) 101 g/m2 43-95 Relative Wall Thickness (2D) 0.59 <=0.42 IVS/LVIW Diastolic Thickness (2D) 1.08 0.00-1.50 LV Fractional Shortening/Ejection Fraction 2D/MM LV Fractional Shortening (2D) 32 % 27-45 LV EF (2D Teichholz) 60 % RV Dimensions 2D/MM TV Lateral Kaila s' Velocity 10.2 cm/s >=9.5 Left Ventricle Left ventricular chamber dimension is normal. Left ventricular systolic function is normal with visually estimated ejection fraction of 60-65%. There is mild concentric hypertrophy noted in the left ventricle. Left ventricular segmental wall motion is normal. There is indeterminate diastolic function in the left ventricle. Right Ventricle Right ventricle is not well visualized. RV function appears normal. Right ventricular systolic function is normal. Left Atrium Left atrial chamber dimension is normal. Right Atrium Right atrium was not well visualized. Aortic Valve The aortic valve is trileaflet. There is mild aortic valve sclerosis. There is no aortic valve stenosis with a peak velocity of 97 cm/s, mean gradient of 2 mmHg, and aortic valve area of 1.6 cm2. There is no aortic valve regurgitation. Pulmonic Valve The pulmonic valve is normal. There is no pulmonic valve stenosis. There is trace pulmonic regurgitation. Mitral Valve The mitral valve has thickened leaflets. There is no mitral valve stenosis. There is mild mitral valve regurgitation. Tricuspid Valve The tricuspid valve leaflets are normal. There is no tricuspid valve stenosis. There is mild tricuspid valve regurgitation. No pulmonary hypertension, estimated pulmonary arterial systolic pressure is 9 mmHg and systemic blood pressure of 146 mmHg in systole. Pericardium/Pleural The pericardium appears normal. There is no pericardial effusion. Pleural effusion visualized. Inferior Vena Cava Normal inferior vena cava with >50% collapse upon inspiration consistent with normal right atrial pressure, 3 mmHg. Aorta The aortic measurements are indexed to age and body surface area. The aortic root at the sinus of Valsalva is not well visualized. The prox ascending aorta is not well visualized. Summary 1. Left ventricle size is normal and systolic function is normal. Estimated ejection fraction is 60-65%. There is indeterminate diastolic function due to afib. There is mild concentric hypertrophy noted. 2. Right ventricle is not well visualized. RV function appears normal. 3. There is mild aortic valve sclerosis with no stenosis. 4. Mild thickening of the mitral valve leaflets. Mild MR, mild MAC. Mild TR. 5. Normal IVC with estimated RA pressure 3 mmHg. 6. Prior study from 12/29/2024. Report Signatures Finalized by Steven Spencer on 08/02/2025 06:28 PM
[2025-08-02] MEDS: VANCOMYCIN/WATER 1250 MG IVPB 250 ML 120 MG IV (09:12)
[2025-08-02] MEDS: INSULIN DEGLUDEC 5 UNIT/0.05 ML (PER 5 UNITS) 35 UNIT SC (09:17)
--- NOTE | 2025-08-02 09:46 | ESPR_ITS ---
<Statement entered by John Paul Warren MD - 08/11/25 08:26> I reviewed above note and agree with findings and plans. I have also personally examined the patient with medicine team and went over assessment and plan with medical team including physician internist and resident physician. <Statement entered by Jeffry Eller MD - 08/02/25 17:53> In summary: 89-year-old female with extensive PMHx including chronic respiratory failure secondary to interstitial lung disease and pulmonary fibrosis (BiPAP dependent 2/2 chronic CO2 retention), currently on prolonged STEROID taper since last admission for acute hypoxic respiratory failure, HFpEF, hypothyroidism, right breast cancer s/p neurectomy, IDDM presented with hypoxemia respiratory acidosis in settings of aspiration pneumonia with elevated lactate and findings of bilateral pneumonia on CXR. She also had UA positive for UTI, and new findings of GPC bacteremia. Currently on ANTIBIOTICS. Today she had new onset atrial fibrillation with RVR for which she was started on DILTIAZEM and HEPARIN drip and further recommendations from cardiology is currently pending. Continued on BiPAP HS and intermittently throughout the day. I?ve reviewed the note and agree with this assessment and plan, with the exceptions outlined above. I personally went over the labs, imaging, home medications, and prior records, and examined the patient. The case was also reviewed with the attending physician. Please note: this document was transcribed using voice recognition technology; minor inaccuracies may be present. Jeffry Eller DO PGY II Documentation for date of: 08/02/25 Subjective Subjective Interval history: No acute events overnight. The patient was evaluated at the bedside this morning and was on BIPAP at 40%. Blood cultures from both bottles returned positive for gram-positive cocci, and vancomycin was initiated. An echocardiogram has been ordered and pending. Patient did not pass swallow screen yesterday. Speech therapy assessed the patient this morning and noted audible air after every swallow, followed by regurgitation that persisted for 15 minutes. The patient required oral suction with strong coughing. Desaturation occurred, dropping to 85%, accompanied by an elevated heart rate. As a result, the patient was placed NPO, and respiratory therapy was called for deep suctioning and to place the patient on high-flow oxygen. An ABG, CXR, and EKG were ordered. The CXR revealed significant bilateral pneumonia with an ARDS pattern, while the EKG showed atrial fibrillation with rapid ventricular response. On 02/08/25, the patient was seen by Dr. Peters for esophageal dilation of esophageal stenosis, and Dr. Peters has been consulted. Due to difficulty establishing IV access, plan to place central line. The patient requires heparin and diltiazem infusions for the atrial fibrillation with RVR. Cardiology has been consulted. Exam Vital Signs Temp Pulse Resp BP Pulse Ox O2 Del Method O2 Flow Rate 97.9 F 115 H 22 H 146/68 H 95 BiPAP 40 08/02/25 08:00 08/02/25 09:18 08/02/25 08:00 08/02/25 09:18 08/02/25 08:00 08/02/25 08:00 08/02/25 08:00 FiO2 30 08/02/25 08:00 Narrative Exam Physical Exam General: Chronically ill-appearing woman on BiPAP, obese habitus. HEENT: Normocephalic, atraumatic. Heart: Tachycardic, regular rhythm, normal S1 and S2, no murmurs. Lungs: Diffuse crackles bilaterally. Abdomen: Obese, firm, distended, nontender. No guarding or rebound tenderness. Neurologic: Alert and oriented x3, no gross neurological deficit, and patient able to move all 4 extremities. Extremities: No edema, clubbing or cyanosis. No joint deformity. Skin: Warm and dry without rashes. : Queen in place, draining yellow urine. Objective Labs 08/02/25 05:20 08/02/25 05:20 Labs: Laboratory Results - last 24 hr 08/01/25 08/02/25 12:32 05:20 WBC 13.1 H D RBC 3.66 L Hgb 10.6 L Hct 36.3 MCV 99 MCH 29.0 MCHC 29.2 L RDW Std Deviation 66.1 H Plt Count 168 D Neut % (Auto) 91 H Lymph % (Auto) 4 L Motley % (Auto) 3 Eos % (Auto) 0 Baso % (Auto) 1 Neut # (Auto) 11.8 H Lymph # (Auto) 0.5 L Motley # (Auto) 0.4 Eos # (Auto) 0.0 Baso # (Auto) 0.1 Immature Gran # (Auto) 0.23 H Absolute Nucleated RBC 0.06 H Immature Gran % 2 H Nucleated RBC % 1 H Sodium 149 H Potassium 4.9 D Chloride 108 H Carbon Dioxide 32.2 H Anion Gap 9 BUN 35 H Creatinine 1.1 D Estim Creat Clear Calc 43.0 L eGFR 48 L BUN/Creatinine Ratio 32 H Glucose [address] Glu mg/dL 143 H Hemoglobin A1c 6.6 H Calculated Osmolality 309 H Lactic Acid 2.3 H Calcium 9.9 D Corrected Calcium 10.1 Phosphorus 3.6 Magnesium 2.2 Total Bilirubin 0.6 AST 20 ALT 46 Alkaline Phosphatase 52 D Total Protein 5.8 Albumin 3.7 D Globulin 2.1 L Albumin/Globulin Ratio 1.8 ABG Interpretation ABG results: 08/01/25 08/01/25 02:15 09:05 ABG pH 7.25 L ABG pCO2 74 H* ABG pO2 62 L ABG HCO3 33 H ABG O2 Saturation 95 ABG Base Excess 4 H VBG pH 7.27 L VBG pCO2 63 H VBG pO2 Not Performed. VBG Base Excess 0 Quality Measures Quality Measures VTE prophylaxis Advance care planning discussed with:: patient Assessment & Plan Assessment Current Active Medications: Generic Name Dose Route Start Last Admin Trade Name Freq PRN Reason Stop Dose Admin Acetaminophen 650 mg 08/01/25 05:05 Acetaminophen 325 Mg Tablet PO 08/31/25 05:04 Q6H PRN Fever >100.4 Albuterol/Ipratropium 3 ml 08/01/25 07:00 08/02/25 07:21 Albuterol/Ipratropium (Duoneb) Rt Sravani 3 Ml Nebu INH 08/31/25 06:59 3 ml Q4HRRT LISETTE Administration Aspirin 81 mg 08/01/25 09:00 08/02/25 09:18 Aspirin Ec 81 Mg Tabec PO 08/31/25 08:59 Not Given DAILY LISETTE Atorvastatin Calcium 10 mg 08/01/25 21:00 08/01/25 20:39 Atorvastatin Calcium 10 Mg Tablet PO 08/31/25 20:59 Not Given HS LISETTE Dextrose 25 ml 08/01/25 05:16 Dextrose 50%-Water Inj 50 Ml Syringe IV 08/31/25 05:15 Q15MIN PRN BG 50-70 responsive npo pt Dextrose 50 ml 08/01/25 05:16 Dextrose 50%-Water Inj 50 Ml Syringe IV 08/31/25 05:15 Q15MIN PRN BG <50 OR BG <70 & pt unresponsive Glucagon 1 mg 08/01/25 05:16 Glucagon Inj 1 Mg Vial IM Q15MIN PRN BG <70, and no IV access Heparin Sodium (Porcine) 5,000 unit 08/01/25 06:00 08/02/25 05:06 Heparin Sod Inj 5000 Unit/Ml Vial SC 08/15/25 05:59 5,000 unit Q8HR LISETTE Administration Piperacillin Sod/Tazobactam 100 mls @ 200 mls/hr 08/01/25 12:00 08/02/25 05:06 Sod 2.25 gm/ Sodium Chloride IV 08/08/25 11:59 200 mls/hr Q6HR LISETTE Administration Protocol Vancomycin HCl 250 mls @ 120 mls/hr 08/02/25 10:00 08/02/25 09:12 Vancomycin/Water 1250 Mg Ivpb IV 08/09/25 09:59 120 mls/hr Q24H LISETTE Administration Protocol Insulin Degludec 35 unit 08/01/25 09:00 08/02/25 09:17 Insulin Degludec 5 Unit/0.05 Ml (Per 5 Units) SC 08/31/25 08:59 35 unit QDAY LISETTE Administration Insulin Human Lispro 0 unit 08/01/25 07:30 08/02/25 07:30 Insulin Lispro (Admelog) 1 Unit/0.01 Ml Unit SC 08/31/25 07:29 Not Given ACHS REPLACED BY [facility] Protocol Levothyroxine Sodium 70 mcg 08/02/25 09:00 08/02/25 09:27 Levothyroxine Inj 100 Mcg Vial IV 09/01/25 08:59 70 mcg QDAY LISETTE Administration Methylprednisolone Sodium Succinate 16 mg 08/02/25 09:00 08/02/25 09:26 Methylprednisolone Sod Succ 40 Mg/Ml Vial IVP 08/09/25 08:59 16 mg QDAY LISETTE Administration Metoprolol Succinate 25 mg 08/01/25 09:00 08/02/25 09:20 Metoprolol Succinate Xl 25 Mg Tabcr PO 08/31/25 08:59 Not Given DAILY LISETTE Pantoprazole Sodium 40 mg 08/01/25 09:00 08/02/25 09:27 Pantoprazole Inj 40 Mg Vial IVP 08/31/25 08:59 40 mg QDAY LISETTE Administration Pharmacy Consult 1 each 08/01/25 17:00 Vancomycin Pharmacy To Dose 1 Each Each IV 08/31/25 16:59 QDAY PRN SEPSIS Polyethylene Glycol 17 gm 08/01/25 09:00 08/02/25 09:20 Polyethylene Glycol 17 Gm Packet PO 08/31/25 08:59 Not Given DAILY LISETTE Pramipexole Dihydrochloride 1 mg 08/01/25 21:00 08/01/25 20:39 Pramipexole 0.25 Mg Tablet PO 08/31/25 20:59 Not Given HS LISETTE Sennosides 1 tab 08/01/25 09:00 08/02/25 09:20 Senna Tablet PO 08/31/25 08:59 Not Given QDAY LISETTE Protocol Sodium Chloride 3 ml 08/01/25 02:11 Sodium Chloride Rt Sravani 0.9% 3 Ml Nebu INH 08/31/25 02:10 PRN PRN SOLN Venlafaxine HCl 150 mg 08/01/25 09:00 08/02/25 09:20 Venlafaxine Xr 37.5 Mg Capcr PO 08/31/25 08:59 Not Given DAILY LISETTE Plan 89-year-old female with past medical history of interstitial lung disease, pulmonary fibrosis, chronic CO2 retention on 2 L home oxygen and BiPAP, HFpEF, hypothyroidism, right breast cancer status postlumpectomy, insulin-dependent type 2 diabetes, GERD, MDR UTI presented for shortness of breath, found to have hypoxemia and respiratory acidosis, admitted for acute on chronic hypoxic hypercapnic respiratory failure likely secondary aspiration pneumonia. #Acute on chronic hypoxic hypercapnic respiratory failure, likely secondary to #Aspiration pneumonia - Known history of chronic interstitial lung disease and pulmonary fibrosis, contributing to chronic respiratory failure, chronic CO2 retention, and the need for BiPAP and home oxygen (2L). - Current acute exacerbation appears to be triggered by aspiration, likely exacerbated by recent intensified coughing after meals. The patient had worsening respiratory distress following dinner, with increasing cough and suspected aspiration of food. - Initial lactate was elevated at 2.4 --> 2.7 --> 2.3. Given the hypoxia and respiratory failure, the lactic acidosis may be due to tissue hypoperfusion and/or poor oxygenation. - Initial ABG showed pH 7.25, pCO2 74, pO2 62, bicarb 33, represents respiratory acidosis. - CXR 08/01: extensive bilateral pneumonia, prominent vascular congestion. - Patient is currently on a prednisone taper for ILD. - Patient failed ST swallow screen. - EGD and esophageal dilation on 02/08/25 for esophageal stenosis. Plan: * BiPAP as needed. * Switched DuoNebs to Levalbuterol as patient is tachycardic. * Continuous pulse oximetry to closely monitor oxygen saturation. * Aspiration precautions. * Keep NPO. Continue medications in IV form. * Switched Prednisone 20mg PO QD to Methylprednisolone 16 mg IV QD as patient is NPO. Given the patient's history of interstitial lung disease, the steroid taper should proceed as planned, maintaining the current dose for 1 more week before reassessment. * Monitor for signs of worsening pneumonia or other complications. * GI consulted - appreciate recs. #Sepsis #GPC bacteremia #UTI #Lactic acidosis #Leukocytosis - Etiology: gram-positive cocci bacteremia with suspected urinary tract infection as the source? - Lactate: 2.4 --> 2.7 --> 2.3. - WBC 23.2 on admission. - Blood culture: 2/2 GPC bacteremia. - UA: 1+ protein, 44 RBC, 76 WBC, amorphous crystals, budding yeast, leukocyte esterase positive. Previous culture was positive for pansensitive Klebsiella Ozaenae. - CXR: extensive bilateral pneumonia, prominent vascular congestion. - Fluids: 30 mL/kg, 2L of LR given in ED. Plan: * Vancomycin pharmacy to dose (08/02-) * Zosyn 2.25 g every 8 hours for UTI. (08/01-) * Urine culture pending. * Oxygen / Ventilation: BiPAP. * Renal: strict I&O, avoid nephrotoxins. * CBC/BMP daily or more frequent if unstable. * Monitor organ dysfunction resolution or progression. #New onset Atrial fibrillation with RVR - EKG on 08/02 showed irregularly irregular rhythm rate 155 with RBBB. - No history of atrial fibrillation. - CHADSVASc score 6. - HASBLEED score 3. High Risk of major bleeding. - Was given diltiazem IV 20 mg x 1 and was started on diltiazem gtt. 5 mg/h which was increased to 10 mg/h as patient continued to remain tachycardic. Plan: * Cardiology consulted - appreciate recs. * Heparin and diltiazem 10mg/hr drip. * Keep potassium greater than 4 and magnesium greater than 2 at all times #NSTEMI - Likely secondary to demand ischemia. - Troponin of 0.051 --> 0.030. - EKG showed sinus tachycardia with a rate of 131 QTc 473, widened upright QRS in V1 may represent right bundle branch block, No acute ST segment changes in other leads Plan: * Continue to monitor for chest pain. #Insulin-dependent type 2 diabetes - Per caregiver the patient is on 35 units of Lantus every morning, sliding scale, and 8 units regular 3 times daily with meals. - Hemoglobin A1c 2 months ago was 6.4. - Glucose on admission was 241. Plan: * Insulin degludec 35 units QD. * Insulin sliding scale. * Carb consistent diet once patient passes swallow eval. #Esophageal stenosis s/p dilation - s/p EGD with dilation for dysphagia secondary to esophageal stenosis on 02/08/2025. Plan: * Keep patient NPO. * GI consulted. #Chronic normocytic anemia - Hemoglobin 11.8, MCV 101. - Likely secondary to anemia of chronic disease secondary to history of breast cancer and interstitial lung disease. - No suspicion for active bleed at this time. Plan: * No direct intervention at this time. * Monitor CBC. #HFpEF EF 65% - Echo from 12/2024 showed EF 65%. - BNP 193. Plan: * Pending med recs. #Pulmonary arterial hypertension - On chest CT 08/01 #Hypernatremia (resolved) #Hyperkalemia (resolved) - On admission, sodium 148 and potassium 5.2. - Likely secondary to decreased oral intake, lack of insulin, or hyperglycemia. - Patient received fluids in the ED and will start receiving insulin sliding scale. #Hyperlipidemia Plan: * Started atorvastatin 10 mg nightly. #Hypothyroidism Plan: * Levothyroxine 100 mcg daily. #Hypertension Plan: * Metoprolol succinate 25 mg p.o. daily. #Chronic constipation - Per caregiver, the patient's last bowel movement was 07/30/2025. Plan: * Daily senna and MiraLAX. #Depression Plan: * Venlafaxine 150 mg XR p.o. daily. #Parkinson Plan: * Resumed home pramipexole 1 mg nightly. Health Maintenance Disposition: tele DVT prophylaxis: Heparin 5,000 U subQ GI prophylaxis: Pantoprazole 40 mg IV daily Diet: NPO Queen: In place Lines: Peripheral IV CODE STATUS: DNR/DNI --- Patient plan of care was discussed with the senior resident, Dr. Eller, and attending physician, Dr. Warren. Eugene Valente, DO PGY-1
--- NOTE | 2025-08-02 10:11 | PC.SS ---
AQUACULTURAL WORKER SUPERVISOR conducted bedside contact with the patient conduct initial assessment and to discuss discharge planning.? At bedside with patient was care providerCarrie. ?Patient currently on BI-PAP.? Care provider provided information for assessment and discharge planning.? Patient resides at home with 24 hour care provider services.? Patient is bedbound.? Patient utilizes home oxygen and BI-PAP as needed. ?Patient requires assistance with the completion of ADL?s.? Care providers provide assistance.? Patient?s surrogate medical decision maker is nephew, Jg Coffman .? Patient utilizes the [facility] for PCP services.? [facility] pharmacy utilized for medication services.? Patient has utilized [facility] in the past.? If home health recommended, [facility] preferred agency.? Patient will require transportation at the time of discharge.? office services clerk to assist with arranging transportation on behalf of the patient.? Care provider requesting hospital bed on behalf of the patient.? AQUACULTURAL WORKER SUPERVISOR to submit DME referral.? No preferred vendor identified.? No further discharge needs identified by the patient?s care provider.? No further intervention required at this time, socially responsible investment adviser will be available to address any further concerns.? Next of Kin: Jg Coffman D/C Plan: Home
--- NOTE | 2025-08-02 10:14 | PC.SS ---
Hospital Bed Patient?s diagnosis requires positioning of the head or upper body to be elevated more than 30 degrees. Also the diagnosis requires positioning in order to alleviate pain and if the patient requires frequent changes in the body positioning and/or has an immediate need for change in the body position. Pillows and wedges have been considered and ruled out.
--- NOTE | 2025-08-02 11:10 | EKG_ITS ---
[facility] Test Date: 2025-08-02 Pat Name: SHAN SLAUGHTER [facility] Gender[facility] Female Obstetrics Gynecology Physician: IJEOMA : [id number] Requested By: Alley Ramírez Order Number: [id number] Reading MD: Alley Ramírez Measurements Intervals [place] Rate: 155 P: SC: QRS: 79 QRSD: 124 T: -16 QT: 269 QTc: 433 Interpretive Statements ATRIAL FIBRILLATION WITH RAPID VENTRICULAR RESPONSE RIGHT BUNDLE BRANCH BLOCK ST DEPRESSION, CONSIDER SUBENDOCARDIAL INJURY Compared to ECG 08/01/2025 11:08:14 ST (T wave) deviation now present Sinus tachycardia no longer present Short SC interval no longer present /store/[id number]
--- NOTE | 2025-08-02 11:14 | XR_ITS ---
EXAMINATION: AP chest single view TECHNIQUE: AP portable semiupright chest single view Date and time: August 02, 2025, 1138 hours, comparison August 01, 2025 INDICATIONS: Coughing congestion aspiration pneumonia FINDINGS: Again noted extensive bilateral lung opacity Mild enlargement cardiac contour with significant vascular congestion Prominent osteopenia IMPRESSION: Again noted significant bilateral pneumonia ARDS pattern
[2025-08-02 12:21] LABS: Base Excess 4 (-3-3); HCO3 32 mEq/L (20-26); Inspired Oxygen, FIO2 60 %; O2 Saturation 95 % (91-98); PCO2 66 mmHg (32.0-48.0); PO2 84 mmHg (83-108); pH, Arterial 7.30 (7.35-7.45)
[2025-08-02 12:22] LABS: Allen Test Not Performed; Puncture Site Site Not Noted
[2025-08-02] MEDS: Magnesium Sulfate 2 GM Ivpb 2 GM/50 ML BAG IV (12:26)
[2025-08-02] MEDS: DILTIAZEM in D5W 125 MG 125 MG/125 ML BAG IV (12:28)
--- NOTE | 2025-08-02 12:32 | ESCONSULT_ITS ---
<Statement entered by Doron Allen MD - 08/02/25 20:49> Patient was seen and examined by me personally. I have reviewed the below documentation by the team resident Dr Freedom Stovall DO PGY-1 and agree with its findings. Ms. Coffman is a 89-year-old female with past medical history of ILD/pulmonary fibrosis/chronic hypersensitivity pneumonitis with chronic respiratory failure on 2 L home oxygen and BiPAP currently on steroid taper, pulmonary arterial hypertension, heart failure with preserved ejection fraction, EF 60-65%, chronically bedbound, recurrent MDR UTIs, hypothyroidism, right breast cancer status postlumpectomy with lymph node dissection, insulin-dependent type 2 diabetes mellitus, GERD, depression, chronic back pain and nephrolithiasis who presented to [facility] emergency department on 08/01/2025 with a chief complaint of hypoxia. Prior to admission in the afternoon patient had coughing episodes which intensified after patient ate half of her dinner, patient continued to have phlegm with increased cough, there was concern of aspiration and EMS were called. Patient's SpO2 in 30s on EMS arrival, patient placed on BiPAP in the ED and admitted to the hospital for management of acute on chronic hypoxic hypercapnic respiratory failure in setting of possible aspiration pneumonia. 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 Pulmonology notes reviewed. Patient steroid taper is being managed by resident clinic outpatient with recommendations from pulmonology remotely. Patient has had multiple admissions for hypercapnia, currently using BiPAP every night with [facility]. 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 Patient today noted to be tachycardic, EKG obtained showed atrial fibrillation with rapid ventricular response, heart rate 155 and cardiology was consulted for new onset atrial fibrillation. Patient seen at bedside denied any palpitations, complaining that she is thirsty. Patient was given diltiazem bolus 20 mg IV x 1 started on diltiazem drip 5 mg/h which was uptitrated to 10 mg/h as patient continued to remain tachycardic. Patient was given magnesium 2 g x 1, heparin GTT per primary team if no contraindications to anticoagulation as CHADSVASc score is 6. Patient examined at bedside, not grossly fluid overloaded, will assess renal function and fluid status in a.m, will consider diuresis with Lasix or acetazolamide as needed. Thank you for the consult and allowing to participate in the care of the patient. Cardiology will continue to follow. Case discussed with Attending Physician Dr. Steven Allen MD Internal Medicine PGY-2 Disclaimer: This note was dictated by speech recognition. Minor errors in can reconditioner may be present due to voice recognition software. HPI Data of Consult Requesting Physician: Jes Sol MD Admitting Provider: Jes Sol MD Attending Provider: Jes Sol MD Primary Care Provider: Physician No Primary/Family Consult Narrative History of present illness: History of Present Illness: Ms Adelaida Coffman is 89yF with PMH of interstitial lung disease, pulmondary fibrosis, chronic CO2 retention on 2L home oxygen and BiPAP, HFpEF, bedbound, recurrent UTIs, hypothyrodism, right breast cancer status postlumpectomy, insulin-dependent type 2 diabetes, GERD, depression, and chronic back pain, presented to the ED on 08/01/2025 due to hypoxemia. The patient started to cough following lunch the day before admission (07/31) and worsened while eating her dinner on the same day. The caregiver noted the patient was expectorating phlegm without any food particles, and suspected possible aspiration. Per EMS note, patient's oxygen level was in 30s and at 68% on 2L nasal cannula and to mid 80s after albuterol treatment. Patient was admitted for acute on chronic hypoxic hypercapnic respiratory failure and aspiration pneumonia. Cardiology was consulted for management of new onset Afib on EKG. ED course: Vitals: Temp 99.6F, NJ: 128, RR:28, BP: 127/74, O2sat:95% On Oxy mask 15L Labs: WBC 23.2, Hgb:11.8, ABG pCO2:74, ABG pH:7.25, Na:148, K:5.2, HCO2: 33.1, Cr:1.2, eGFR:43, Glucose: 241, HbA1c: 6.6, Lactic acid:2.4 (increased to 18.0 in 3hrs), Ca 9.8 (decreased to 6.4 in 3hrs), Troponin:0.051, BNP: 193 CXR (08/01/2025): Extensive bilateral pneumonia, consider associated mild heart failure In ED, Patient received 125 mg IV push methylprednisolone, Zosyn, treatment with albuterol, ipratropium, a dose of vancomycin, 2.5 L of L Medical history: As stated above Surgical history: Right breast lumpectomy, Cholesectomy Allergies: Cefuroxime, Topical zinc, Iodine contrast, Sulfa, Influenza virus, Cefuroxime Medications: Vitamin C 500 mg twice a day, Aspirin 81 mg daily, Calcium vitamin D supplement, Estrogen vaginal cream, [place] 5-3 25 p.o. 3 times daily as needed for pain, Hydroxyzine 25 mg tablet every 6 hours as needed for anxiety, Levothyroxine 100 mcg daily, Metformin 500 mg daily, 35 insulin degludec every morning, 8 units 3 times daily with meals, plus sliding scale, Methenamine 1 g p.o. twice daily, Metoprolol succinate 25 mg daily, Omeprazole 40 mg daily, Pramipexole 1 mg daily, Prednisone 20 mg daily, taper currently, Rosuvastatin 5 mg nightly, Venlafaxine 150 mg XR daily Family history: Noncontributory Social history: Denies smoking cigarettes, drinking alcohol or using other illicit drugs, Lives at home, 24-hour caregiver support 08/02/2025: Labs reviewed and patient examined at the bedside. Recommend Diltiazem drip 10mg/hr and heparin drip if no contraindication to anticoagulation. Also recommend stopping metoprolol due to history of ILD and to avoid bronchospasm. ECHO is pending. Recommend IV lasix 20mg x1 after examining her kidney function and fluid status tomorrow. Upon examination, patient complains of SOB. but denies palpation, chest pain, nausea or vomiting. cc:: cc: Jes Sol MD Review of Systems Review of Systems Narrative Review of Systems: All 12 systems assessed and the patient denies unless otherwise stated in HPI Exam Vital Signs Temp Pulse Resp BP Pulse Ox O2 Del Method O2 Flow Rate 96.9 F 133 H 27 H 124/79 94 L Nasal Cannula 40 08/02/25 12:00 08/02/25 12:28 08/02/25 12:00 08/02/25 12:28 08/02/25 12:00 08/02/25 12:00 08/02/25 08:00 FiO2 30 08/02/25 08:00 Narrative Exam General: AAOx3, Stressed, Frail, Elderly, on BiPAP Eye: normal conjunctiva, no scleral icterus HENT: Normocephalic, atraumatic, hearing intact to conversation at normal volume, moist oral mucosa Neck: Supple, non-tender, no JVD, no lymphadenopathy Lungs: Labored respirations, symmetric chest rise, Clear to auscultate bilaterally, Wheezing bilateral lungs Heart: Peripheral pulses intact bilaterally, Irregularly irregular Abdomen: Soft, non-tender, Distended, no palpable masses Musculoskeletal: No cyanosis or edema, No visible joint swelling Skin: Skin is warm, dry, no rashes or lesions. Neuro: Cranial nerves II-XII grossly intact. Sensations intact to light touch. Results Labs 08/03/25 05:45 08/03/25 05:45 Labs: Short CBC 08/02/25 Range/Units 05:20 WBC 13.1 H D (3.6-11.0) Thou/mm3 Hgb 10.6 L (12.0-16.0) g/dL Hct 36.3 (36.0-46.0) % Plt Count 168 D (140-440) Thou/mm3 BMP 08/02/25 05:20 Sodium 149 H Potassium 4.9 D Chloride 108 H Carbon Dioxide 32.2 H BUN 35 H Creatinine 1.1 D Glucose 190 H D Calcium 9.9 D Liver Function 08/02/25 Range/Units 05:20 Total Bilirubin 0.6 (0.3-1.2) mg/dL AST 20 (0-34) U/L ALT 46 (10-49) U/L Alkaline Phosphatase 52 D (46-116) U/L Albumin 3.7 D (3.4-4.8) gm/dL ABG Interpretation ABG results: 08/01/25 08/01/25 08/02/25 02:15 09:05 12:15 ABG pH 7.25 L 7.30 L ABG pCO2 74 H* 66 H ABG pO2 62 L 84 D ABG HCO3 33 H 32 H ABG O2 Saturation 95 95 ABG Base Excess 4 H 4 H VBG pH 7.27 L VBG pCO2 63 H VBG pO2 Not Performed. VBG Base Excess 0 Quality Measures Quality Measures VTE prophylaxis Advance care planning discussed with:: patient and other Medications Home Medications and Allergies Home Medications ?Medication ?Instructions ?Recorded ?Confirmed ?Type methenamine hippurate 1 gram tablet 1 g PO BID 0 08/03/25 History omeprazole 40 mg capsule,delayed 40 mg PO QDAY 1 08/02/25 History release aspirin 81 mg tablet 81 mg PO QDAY 03/19/2408/02 History hydrocodone 10 mg-acetaminophen 1 tab PO TID PRN pain 12/27/24 08/02/25 History 325 mg tablet lactobacillus comb no.10 20 25,000 mmu cells PO QDAY 0 12/27/24 08/02/25 History billion cell capsule (Probiotic) hydroxyzine HCl 25 mg tablet 25 mg PO BID PRN anxiety 08/02/25 08/02/25 History Allergies Allergy/AdvReac Type Severity Reaction Status Date / Time cefuroxime Allergy Intermediate Swelling Verified 06/08/25 14:34 of Lip/Tongue/Throat zinc Allergy Intermediate Rash Verified 06/08/25 14:34 iodine Allergy Unknown Verified 06/08/25 14:34 shellfish derived Allergy Unknown Verified 06/08/25 14:34 Sulfa (Sulfonamide Allergy Unknown Verified 06/08/25 14:34 Antibiotics) Influenza Virus Vaccines Allergy Verified 06/08/25 14:34 Visit Medications Acetaminophen (Acetaminophen 325 Mg Tablet) 650 mg PO Q6H PRN PRN Reason: Fever >100.4 Stop: 08/31/25 05:04 Albuterol/Ipratropium (Albuterol/Ipratropium (Duoneb) Rt Sravani 3 Ml Nebu) 3 ml INH Q4HRRT [facility] Stop: 08/31/25 06:59 Last Admin: 08/02/25 11:07 Dose: Not Given Aspirin (Aspirin Ec 81 Mg Tabec) 81 mg PO DAILY [facility] Stop: 08/31/25 08:59 Last Admin: 08/02/25 09:18 Dose: Not Given Atorvastatin Calcium (Atorvastatin Calcium 10 Mg Tablet) 10 mg PO HS [facility] Stop: 08/31/25 20:59 Last Admin: 08/01/25 20:39 Dose: Not Given Dextrose (Dextrose 50%-Water Inj 50 Ml Syringe) 25 ml IV Q15MIN PRN PRN Reason: BG 50-70 responsive npo pt Stop: 08/31/25 05:15 Dextrose (Dextrose 50%-Water Inj 50 Ml Syringe) 50 ml IV Q15MIN PRN PRN Reason: BG <50 OR BG <70 & pt unresponsive Stop: 08/31/25 05:15 Glucagon (Glucagon Inj 1 Mg Vial) 1 mg IM Q15MIN PRN PRN Reason: BG <70, and no IV access Heparin Sodium (Porcine) (Heparin Sod Inj 5000 Unit/Ml Vial) 5,000 unit SC Q8HR [facility] Stop: 08/15/25 05:59 Last Admin: 08/02/25 05:06 Dose: 5,000 unit Piperacillin Sod/Tazobactam (Sod 2.25 gm/ Sodium Chloride) 100 mls @ 200 mls/hr IV Q6HR [facility]; Protocol Stop: 08/08/25 11:59 Last Admin: 08/02/25 12:22 Dose: 200 mls/hr Vancomycin HCl (Vancomycin/Water 1250 Mg Ivpb) 250 mls @ 120 mls/hr IV Q24H [facility]; Protocol Stop: 08/09/25 09:59 Last Admin: 08/02/25 09:12 Dose: 120 mls/hr Diltiazem HCl (Diltiazem In D5w 125 Mg) 125 mg in 125 mls @ 5 mls/hr IV .Q24H [facility] Stop: 09/01/25 12:07 Last Admin: 08/02/25 12:28 Dose: 5 mg/hr, 5 mls/hr Magnesium Sulfate (Magnesium Sulfate Ivpb) 2 gm in 50 mls @ 25 mls/hr IV X1 ONE Stop: 08/02/25 14:12 Last Admin: 08/02/25 12:26 Dose: 25 mls/hr Insulin Degludec (Insulin Degludec 5 Unit/0.05 Ml (Per 5 Units)) 35 unit SC QDAY [facility] Stop: 08/31/25 08:59 Last Admin: 08/02/25 09:17 Dose: 35 unit Insulin Human Lispro (Insulin Lispro (Admelog) 1 Unit/0.01 Ml Unit) 0 unit SC ACHS [facility]; Protocol Stop: 08/31/25 07:29 Last Admin: 08/02/25 07:30 Dose: Not Given Levothyroxine Sodium (Levothyroxine Inj 100 Mcg Vial) 70 mcg IV QDAY [facility] Stop: 09/01/25 08:59 Last Admin: 08/02/25 09:27 Dose: 70 mcg Methylprednisolone Sodium Succinate (Methylprednisolone Sod Succ 40 Mg/Ml Vial) 16 mg IVP QDAY [facility] Stop: 08/09/25 08:59 Last Admin: 08/02/25 09:26 Dose: 16 mg Metoprolol Succinate (Metoprolol Succinate Xl 25 Mg Tabcr) 25 mg PO DAILY [facility] Stop: 08/31/25 08:59 Last Admin: 08/02/25 09:20 Dose: Not Given Pantoprazole Sodium (Pantoprazole Inj 40 Mg Vial) 40 mg IVP QDAY [facility] Stop: 08/31/25 08:59 Last Admin: 08/02/25 09:27 Dose: 40 mg Pharmacy Consult (Vancomycin Pharmacy To Dose 1 Each Each) 1 each IV QDAY PRN PRN Reason: SEPSIS Stop: 08/31/25 16:59 Polyethylene Glycol (Polyethylene Glycol 17 Gm Packet) 17 gm PO DAILY [facility] Stop: 08/31/25 08:59 Last Admin: 08/02/25 09:20 Dose: Not Given Pramipexole Dihydrochloride (Pramipexole 0.25 Mg Tablet) 1 mg PO HS [facility] Stop: 08/31/25 20:59 Last Admin: 08/01/25 20:39 Dose: Not Given Sennosides (Senna Tablet) 1 tab PO QDAY [facility]; Protocol Stop: 08/31/25 08:59 Last Admin: 08/02/25 09:20 Dose: Not Given Sodium Chloride (Sodium Chloride Rt Sravani 0.9% 3 Ml Nebu) 3 ml INH PRN PRN PRN Reason: SOLN Stop: 08/31/25 02:10 Venlafaxine HCl (Venlafaxine Xr 37.5 Mg Capcr) 150 mg PO DAILY [facility] Stop: 08/31/25 08:59 Last Admin: 08/02/25 09:20 Dose: Not Given Discontinued Medications Albuterol (Albuterol Rt 2.5 Mg/0.5 Ml Nebu) 10 mg INH X1 ONE Stop: 08/01/25 02:12 Last Admin: 08/01/25 03:41 Dose: 10 mg Diltiazem HCl (Diltiazem Inj 5 Mg/Ml Vial 5 Ml) 10 mg IV X1 ONE Stop: 08/02/25 11:54 Diltiazem HCl (Diltiazem Inj 5 Mg/Ml Vial 5 Ml) 20 mg IV X1 ONE Stop: 08/02/25 12:12 Piperacillin Sod/Tazobactam (Sod 4.5 gm/ Sodium Chloride) 100 mls @ 200 mls/hr IV X1 ONE; Protocol Stop: 08/01/25 03:21 Last Infusion: 08/01/25 03:59 Dose: Infused Vancomycin/Sodium Chloride (Vancomycin/Ns 1 Gm Ivpb) 200 mls @ 120 mls/hr IV Q100M [facility] Stop: 08/01/25 06:19 Last Infusion: 08/01/25 07:45 Dose: Infused Lactated Ringer's (Lactated Ringers) 500 mls @ 999 mls/hr IV .Q31M ONE Stop: 08/01/25 03:30 Last Infusion: 08/01/25 03:59 Dose: Infused Lactated Ringer's (Lactated Ringers) 1,000 mls @ 999 mls/hr IV .Q1H1M ONE Stop: 08/01/25 04:26 Last Infusion: 08/01/25 05:39 Dose: Infused Lactated Ringer's (Lactated Ringers) 1,000 mls @ 999 mls/hr IV .Q1H1M ONE Stop: 08/01/25 05:31 Last Infusion: 08/01/25 07:45 Dose: Infused Doxycycline Hyclate 100 mg/ (Sodium Chloride) 100 mls @ 100 mls/hr IV BID [facility] Stop: 08/08/25 08:59 Doxycycline Hyclate 100 mg/ (Sodium Chloride) 100 mls @ 100 mls/hr IV X1 ONE Stop: 08/01/25 06:29 Last Admin: 08/01/25 06:35 Dose: Not Given Piperacillin Sod/Tazobactam (Sod 2.25 gm/ Sodium Chloride) 100 mls @ 200 mls/hr IV Q8HR [facility]; Protocol Stop: 08/08/25 13:59 Magnesium Sulfate (Magnesium Sulfate Ivpb) 2 gm in 50 mls @ 25 mls/hr IV X1 ONE Stop: 08/01/25 12:39 Last Infusion: 08/01/25 13:44 Dose: Infused Insulin Human Lispro (Insulin Lispro (Admelog) 1 Unit/0.01 Ml Unit) 0 unit SC AC [facility]; Protocol Stop: 08/31/25 07:29 Ipratropium [place] (Ipratropium Rt 0.5 Mg/ 2.5 Ml Nebu) 1 mg INH X1 ONE Stop: 08/01/25 02:12 Last Admin: 08/01/25 03:41 Dose: 1 mg Levothyroxine Sodium (Levothyroxine Sodium 100 Mcg Tablet) 100 mcg PO ACBR [facility] Stop: 08/31/25 05:59 Last Admin: 08/02/25 05:38 Dose: Not Given Methylprednisolone Sodium Succinate (Methylprednisolone Sod Succ 62.5 Mg/Ml 2ml Vial) 125 mg IVP X1 ONE Stop: 08/01/25 02:12 Last Admin: 08/01/25 02:22 Dose: 125 mg Metoprolol Tartrate (Metoprolol Tartrate Inj 1 Mg/Ml Vial 5 Ml) 2 mg IVP X1 ONE Stop: 08/01/25 10:41 Last Admin: 08/01/25 11:07 Dose: 2 mg Metoprolol Tartrate (Metoprolol Tartrate Inj 1 Mg/Ml Vial 5 Ml) 2.5 mg IVP X1 ONE Stop: 08/02/25 08:11 Last Admin: 08/02/25 09:18 Dose: Not Given Ondansetron HCl (Ondansetron Inj 2 Mg/Ml Inj 2 Ml) 4 mg IVP Q6H PRN; Protocol PRN Reason: NAUSEA OR VOMITING Stop: 08/31/25 05:04 Pharmacy Consult (Vancomycin Pharmacy To Dose 1 Each Each) 1 each IV QDAY [facility] Stop: 08/01/25 02:52 Last Admin: 08/01/25 06:35 Dose: Not Given Prednisone (Prednisone 20 Mg Tablet) 20 mg PO DAILY [facility] Stop: 08/31/25 08:59 Last Admin: 08/01/25 10:53 Dose: Not Given Sodium Chloride (Sodium Chloride Rt 10% 15 Ml Nebu) 5 ml INH X1 ONE Stop: 08/01/25 05:19 Last Admin: 08/01/25 08:25 Dose: Not Given Assessment & Plan Plan Ms Adelaida Coffman is 89yF with PMH of interstitial lung disease, pulmondary fibrosis, chronic CO2 retention on 2L home oxygen and BiPAP, HFpEF, bedbound, recurrent UTIs, hypothyrodism, right breast cancer status postlumpectomy, insulin-dependent type 2 diabetes, GERD, depression, and chronic back pain, presented to the ED on 08/01/2025 due to hypoxemia. Patient was admitted for acute on chronic hypoxic hypercapnic respiratory failure and aspiration pneumonia. Cardiology was consulted for management of new onset Afib on EKG. #New Onset A Fib with RVR Patient has SOB. Denies palpation or chest pain. EKG showed irregularly irregular rhythm rate 155 with RBBB. MAT ruled out. No history of atrial fibrillation CHADSVASc score 6 HASBLEED score 3. High Risk of major bleeding Was given diltiazem IV 20 mg x 1 and was started on diltiazem gtt. 5 mg/h which was increased to 10 mg/h as patient continued to remain tachycardic Plan: -Continue diltiazem drip 10mg/hr -Recommend stopping metoprolol due to respiratory status, will transition patient to p.o. Cardizem in a.m. -Recommend heparin drip if no contraindication to anticoagulation -Recommend Holter monitor outpatient to assess afib burden. -Keep potassium greater than 4 and magnesium greater than 2 at all times #Chronic diastolic CHF, HFpEF EF 65% (12/29/2024) -Past ECHO (12/29/2024): Normal left ventricular size and function. Approximate ejection fraction is 65%. Trace mitral and trace tricuspid regurgitation, No wall motion abnormalities noted. -CXR (08/02/2025): extensive bilateral lung opacity, Mild enlargement cardiac contour with significant vascular congestion on physical exam 1+ edema noted bilateral hips. -Patient's underlying respiratory status and lieu of ILD flare/aspiration pneumonia Plan: -Will consider diuresis in a.m. -ECHO taken pending read. -Strict I and Os, -Fluid restriction 1500ml -Mg>2, K>4 -Management of respiratory disease per primary team #Pulmonary Hypertension, Group III #Hx of Interstitial Lung Disease -PMH of interstitial Lung Disease -Chest CT (08/01/2025): Pulmonary artery hypertension, Severe pneumonia and/or edema throughout the lungs Plan: -BiPAP prn -Duoneb prn -Steroid taper per pulmonology #HTN -In ED, 155/80 -Continue diltiazem drip for now. #Acute on chronic hypoxic hypercapnic respiratory failure, likely secondary to #Aspiration pneumonia #Sepsis #GPC bacteremia #Lactic acidosis #Leukocytosis #UTI #Insulin-dependent type 2 diabetes #Esophageal stenosis s/p dilation #Chronic normocytic anemia #Hyperlipidemia #Hypothyroidism #Chronic constipation #Depression #Parkinson -Management per Primary Hospitalist team Thank you for allowing us to participate in the care of Ms Adelaida Coffman. Cardiology will continue to follow Assessment and plan discussed with my attending physician Dr. Tj Stovall (PGY-1) - Internal medicine resident Attending Provider Attestation/Addendum I have personally seen and examined the patient separately on the above date of service and discussed the plan of care with the resident. I reviewed the resident Dr. Freedom Stovall / Doron Allen consultation progress note and agree with the resident findings and plan in the note above and have also edited the documentation to reflect my findings and plan. Steven Spencer M.D. Interventional Cardiology
[2025-08-02] MEDS: DILTIAZEM INJ 5 MG/ML VIAL 5 ML 20 MG IV (12:51)
[2025-08-02] MEDS: Heparin/D5w 25K 250 ML Ivpb 25,000 UNIT/250 ML BAG 10.093 UNIT IV (15:34)
[2025-08-02] MEDS: HEPARIN SOD INJ 5000 UNIT/ML VIAL 4000 UNIT IV (15:35)
[2025-08-02 16:43] LABS: Band Neutrophils (Manual) 39 % (0-6); Lymphocytes (Manual) 4 % (20-44); Metamyelocytes (Manual) 5 % (0-0); Monocytes (Manual) 2 % (2-9); Neutrophils (Manual) 50 % (50-70)
[2025-08-02] MEDS: INSULIN LISPRO (AdmeLOG) 1 UNIT/0.01 ML UNIT SC (16:47)
[2025-08-02] MEDS: DILTIAZEM in D5W 125 MG 125 MG/125 ML BAG 10 MG IV (17:23)
--- NOTE | 2025-08-02 21:31 | PD.IMCONS ---
HPI Data of Consult Requesting Physician: John Paul Warren MD Primary Care Provider: Physician No Primary/Family Consult Narrative Reason for consult: Dysphagia History of present illness: 89 years old female came into the emergency room with shortness of breath She does have a history of interstitial lung disease pulmonary fibrosis on home oxygen 2 L nasal cannula and also uses as needed BiPAP bedbound recurrent UTIs hypothyroidism right breast carcinoma status postlumpectomy diabetes mellitus type 2 and Gastrosoft reflux disease I met the daughter in the room during my examination and she does have progressive dysphagia and does have a history of endoscopic dilatation in the past which worked well for the patient Currently patient is on BiPAP cc:: cc: John Paul Warren MD Review of Systems Review of Systems ROS Unobtainable: unobtainable due to medical condition Past Medical History Surgical History OTHER SURGICAL HX: As in the history of present illness Meds Home Medications and Allergies Home Medications ?Medication ?Instructions ?Recorded ?Confirmed ?Type methenamine hippurate 1 gram tablet 1 g PO BID 04/18/20 06/08/25 History omeprazole 40 mg capsule,delayed 40 mg PO QDAY 06/04/21 08/02/25 History release ascorbic acid (vitamin C) 500 mg 500 mg PO BID 03/19/24 08/02/25 History tablet (Vitamin C) aspirin 81 mg tablet 81 mg PO QDAY 03/19/24 08/02/25 History calcium 600 mg (as 0.5 tab PO QDAY 12/27/24 08/02/25 History carbonate)-vitamin D3 5 mcg (200 unit) tablet (Calcium 600 + D(3)) hydrocodone 10 mg-acetaminophen 1 tab PO TID PRN pain 12/27/24 08/02/25 History 325 mg tablet lactobacillus comb no.10 20 25,000 mmu cells PO QDAY 12/27/24 08/02/25 History billion cell capsule (Probiotic) hydroxyzine HCl 25 mg tablet 25 mg PO BID PRN anxiety 08/02/25 08/02/25 History Allergies Allergy/AdvReac Type Severity Reaction Status Date / Time cefuroxime Allergy Intermediate Swelling Verified 06/08/25 14:34 of Lip/Tongue/Throat zinc Allergy Intermediate Rash Verified 06/08/25 14:34 iodine Allergy Unknown Verified 06/08/25 14:34 shellfish derived Allergy Unknown Verified 06/08/25 14:34 Sulfa (Sulfonamide Allergy Unknown Verified 06/08/25 14:34 Antibiotics) Influenza Virus Vaccines Allergy Verified 06/08/25 14:34 Exam Vital Signs Temp Pulse Resp BP Pulse Ox O2 Del Method O2 Flow Rate 97.8 F 112 H 32 H 138/66 H 94 L High Flow Nasal Cannula 40 08/02/25 20:00 08/02/25 20:17 08/02/25 20:17 08/02/25 20:00 08/02/25 20:17 08/02/25 20:00 08/02/25 20:00 FiO2 40 08/02/25 20:17 Routine Respiratory Exam Comments: Mechanically ventilated on BiPAP Routine Abdominal Exam Comments: Soft nontender Results Labs 08/02/25 05:20 08/02/25 05:20 Labs: Short CBC 08/02/25 Range/Units 05:20 WBC 13.1 H D (3.6-11.0) Thou/mm3 Hgb 10.6 L (12.0-16.0) g/dL Hct 36.3 (36.0-46.0) % Plt Count 168 D (140-440) Thou/mm3 [facility] 08/02/25 05:20 Sodium 149 H Potassium 4.9 D Chloride 108 H Carbon Dioxide 32.2 H BUN 35 H Creatinine 1.1 D Glucose 190 H D Calcium 9.9 D Liver Function 08/02/25 Range/Units 05:20 Total Bilirubin 0.6 (0.3-1.2) mg/dL AST 20 (0-34) U/L ALT 46 (10-49) U/L Alkaline Phosphatase 52 D (46-116) U/L Albumin 3.7 D (3.4-4.8) gm/dL ABG Interpretation ABG results: 08/01/25 08/01/25 08/02/25 02:15 09:05 12:15 ABG pH 7.25 L 7.30 L ABG pCO2 74 H* 66 H ABG pO2 62 L 84 D ABG HCO3 33 H 32 H ABG O2 Saturation 95 95 ABG Base Excess 4 H 4 H VBG pH 7.27 L VBG pCO2 63 H VBG pO2 Not Performed. VBG Base Excess 0 Assessment and Plan Additional Assessment & Plan Additional Plan: # Progressive dysphagia Plan consent obtained from the patient's daughter who is also one of the authorized person for fiberoptic esophagogastroduodenoscopy to be done under MAC with possible therapeutic intervention However I have told I will wait till respiratory status improves and the procedure be done under MAC patient daughter agrees I will wait till respiratory status improves Other medical problems include acute on chronic hypoxic respiratory failure Diabetes mellitus type 2 aspiration pneumonia interstitial lung disease with pulmonary fibrosis on home oxygen hypothyroidism that is self can cause dysphagia will get free T4 and TSH to make sure she is on adequate supplement Right breast carcinoma status postlumpectomy Thank you very much for the opportunity to participate in care of this patient
[2025-08-02 22:45] LABS: Partial Thromboplastin Time 95.4 Seconds (22.0-36.0)
[2025-08-03] VITALS (25 sets, daily range): BP systolic 109–159; BP diastolic 54–86; PULSE 81–196; RESP 8–36; TEMP 36.1–36.5; O2SAT 91–96; BMI 35.4
--- NOTE | 2025-08-03 | XR_ITS ---
Examination: Central line placement, triple lumen catheter. Ultrasound-guided needle placement right internal jugular vein. Fluoroscopy AP Chest, portable single view Exam date and time: August 03, 2025, 1346 hours INDICATIONS: Need for long-term intravenous medication, antibiotic therapy for bacteremia. Informed consent provided Technique: A timeout was completed, verifying correct patient, procedure, site, positioning, and special equipment if applicable The patient was placed in a dependent position appropriate for central line placement based on the vein to be cannulated. The patient's right neck was prepped and draped in sterile fashion. Maximum Sterile Barrier Technique used including cap, mask, sterile gown, sterile gloves, and sterile full body drape. If ultrasound technique used: sterile gel and sterile probe covers. Hand Hygiene performed using proper scrub, soap and water, or alcohol-based hand rub. Ultrasound images were recorded and stored. Site right portable upright is utilized to confirm patency of the right internal jugular vein Utilizing ultrasonographic guidance successful 21-gauge needle puncture into the right internal jugular vein. 0.18 wire guide was introduced into the IVC under fluoroscopic guidance. The wires is then exchanged for a 0.25 J-wire guide placed in the vena cava. The triple lumen catheter dilator is introduced, followed by the catheter in the SVC in proper position under fluoroscopic guidance. Successful aspiration of blood and flushing with heparinized saline is then performed in the 3 venous limbs. The catheter is sutured in place to the skin and a sterile dressing applied. Perfusion to the extremity distal to the point of catheter insertion was checked and found to be adequate The attending radiologist was present for the entire procedure Estimated blood loss 1 cc. Findings: Under fluoroscopy, the tip of the catheter is in good position in the vena cava. Portable chest x-ray, post line placement, as ordered. Impression: Successful ultrasound-guided needle placement right internal jugular vein. Successful placement of triple lumen catheter central line, percutaneous. Fluoroscopy 0.01-minute radiation dose 0.63 mGy 1 spot fluoroscopic chest. AP portable chest completion procedure demonstrates satisfactory position central line tip SVC. May use central line.
[2025-08-03] MEDS: PIPERACILLIN/TAZO 2.25GM INJ 2.25 GM in SODIUM CHLORIDE 0.9% (POP) 100 ML IV ×5 (00:04→23:42)
[2025-08-03 06:21] LABS: Basophils # (Auto) 0.1 Thou/mm3 (0.0-0.2); Basophils % (Auto) 1 % (0-2.5); Eosinophils # (Auto) 0.0 Thou/mm3 (0.0-0.5); Eosinophils % (Auto) 0 % (0-10); Hematocrit 33.2 % (36.0-46.0); Hemoglobin 9.7 g/dL (12.0-16.0); Immature Granulocytes Auto 0.26 Thou/mm3 (0.00-0.00); Lymphocytes # (Auto) 0.5 Thou/mm3 (1.0-4.8); Lymphocytes % (Auto) 4 % (10-50); Mean Corpuscular HGB Conc 29.2 g/dl (31.0-37.0); Mean Corpuscular Hemoglobin 29.2 pg (25.0-35.0); Mean Corpuscular Volume 100 fL (80-100); Monocytes # (Auto) 0.5 Thou/mm3 (0.0-0.8); Monocytes % (Auto) 4 % (0-12); Neutrophils # (Auto) 11.2 Thou/mm3 (1.8-7.7); Neutrophils % (Auto) 89 % (37-80); Nucleated Red Blood Cell # 0.05 Thou/mm3 (0.00-0.00); Nucleated Red Blood Cell % 0 /100 WBC (0); Platelet Count 161 Thou/mm3 (140-440); RDW Standard Deviation 67.1 fL (36.4-46.3); Red Blood Count 3.32 Miln/mm3 (4.00-5.20); White Blood Count 12.5 Thou/mm3 (3.6-11.0)
[2025-08-03 06:51] LABS: Alanine Aminotransferase 36 U/L (10-49); Albumin, Serum 3.6 gm/dL (3.4-4.8); Albumin/Globulin Ratio 1.7 (1.2-2.2); Alkaline Phosphatase 53 U/L (46-116); Anion Gap 12 (7-16); Aspartate Amino Transferase 13 U/L (0-34); BUN/Creatinine Ratio 25 Ratio (12-20); Bilirubin,Total 0.5 mg/dL (0.3-1.2); Blood Urea Nitrogen 30 mg/dL (9-23); Calcium 9.7 mg/dL (8.3-10.6); Calcium (Corrected) 10.0 mg/dL (8.5-10.1); Carbon Dioxide 31.5 mMol/L (20.0-31.0); Chloride 109 mMol/L (98-107); Creatinine (Component) 1.2 mg/dL (0.6-1.3); Estimated Creatinine Clearance 39.1 mL/min (>60); Globulin 2.1 gm/dL (2.3-3.5); Glucose 195 mg/dL (74-106); Magnesium 2.5 mg/dL (1.6-2.6); Osmolality,Calculated 312 (275-295); Phosphorous 2.5 mg/dL (2.4-5.1); Potassium 4.6 mMol/L (3.4-5.1); Sodium 152 mMol/L (136-145); Total Protein 5.7 gm/dL (5.7-8.2); eGFR 43 See Note
[2025-08-03 07:10] LABS: Partial Thromboplastin Time 52.4 Seconds (22.0-36.0)
[2025-08-03] MEDS: DILTIAZEM in D5W 125 MG 125 MG/125 ML BAG 10 MG IV ×2 (07:52→19:35)
--- NOTE | 2025-08-03 07:56 | ESPR_ITS ---
<Statement entered by Doron Allen MD - 08/03/25 18:54> Patient was seen and examined by me personally. I have reviewed the below documentation by the team resident Dr Freedom Stovall DO PGY-1 and agree with its findings. Ms. Coffman is a 89-year-old female with past medical history of ILD/pulmonary fibrosis/chronic hypersensitivity pneumonitis with chronic respiratory failure on 2 L home oxygen and BiPAP currently on steroid taper, pulmonary arterial hypertension, heart failure with preserved ejection fraction, EF 60-65%, chronically bedbound, recurrent MDR UTIs, hypothyroidism, right breast cancer status postlumpectomy with lymph node dissection, insulin-dependent type 2 diabetes mellitus, GERD, depression, chronic back pain and nephrolithiasis who presented to [facility] emergency department on 08/01/2025 with a chief complaint of hypoxia. Prior to admission in the afternoon patient had coughing episodes which intensified after patient ate half of her dinner, patient continued to have phlegm with increased cough, there was concern of aspiration and EMS were called. Patient's SpO2 in 30s on EMS arrival, patient placed on BiPAP in the ED and admitted to the hospital for management of acute on chronic hypoxic hypercapnic respiratory failure in setting of possible aspiration pneumonia. 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 Pulmonology notes reviewed. Patient steroid taper is being managed by resident clinic outpatient with recommendations from pulmonology remotely. Patient has had multiple admissions for hypercapnia, currently using BiPAP every night with [employer]. Patient does have history of heart failure, HFpEF with a EF 60 to 65%, never seen a extract mixer outpatient, patient not on diuretics outpatient per resident clinic note as patient has chronic hypercapnia and diuresis causes contraction alkalosis causing further respiratory decompensation. Patient was started on diltiazem drip 10 mg/h, was rate controlled overnight. Currently on heparin gtt. 08/03-patient seen at bedside, continues to be in RVR, rate sustaining in 130s. Patient's blood pressure soft, plan was to uptitrate diltiazem drip to 15 mg/h. Patient was given IV digoxin 0.125 mg x 1 and 0.25 mg x 1 by primary team, patient's heart rate continues to remain elevated. We will give additional dose of 0.25 mg x 1, patient does have reduced GFR impaired renal function, will consider additional dose in a.m. if patient's heart rate continues to remain elevated and blood pressure is permissible, uptitrate diltiazem drip to 15 mg/h. Patient is scheduled for EGD today has history of esophageal stricture in the past, will consider transitioning to p.o. medication once patient tolerates. Will monitor renal function in a.m., no diuresis for now will consider diuresis with acetazolamide as needed in a.m, noted to be hypernatremic, management per primary team. Thank you for the consult and allowing to participate in the care of the patient. Cardiology will continue to follow. Case discussed with Attending Physician Dr. Steven Allen MD Internal Medicine PGY-2 Disclaimer: This note was dictated by speech recognition. Minor errors in underground roof bolter may be present due to voice recognition software. Documentation for date of: 08/03/25 Subjective Subjective Interval history: Ms Adelaida Coffman is 89yF with PMH of interstitial lung disease, pulmondary fibrosis, chronic CO2 retention on 2L home oxygen and BiPAP, HFpEF, bedbound, recurrent UTIs, hypothyrodism, right breast cancer status postlumpectomy, insulin-dependent type 2 diabetes, GERD, depression, and chronic back pain, presented to the ED on 08/01/2025 due to hypoxemia. The patient started to cough following lunch the day before admission (07/31) and worsened while eating her dinner on the same day. The caregiver noted the patient was expectorating phlegm without any food particles, and suspected possible aspiration. Per EMS note, patient's oxygen level was in 30s and at 68% on 2L nasal cannula and to mid 80s after albuterol treatment. Patient was admitted for acute on chronic hypoxic hypercapnic respiratory failure and aspiration pneumonia. Cardiology was consulted for management of new onset Afib on EKG. ED course: Vitals: Temp 99.6F, NM: 128, RR:28, BP: 127/74, O2sat:95% On Oxy mask 15L Labs: WBC 23.2, Hgb:11.8, ABG pCO2:74, ABG pH:7.25, Na:148, K:5.2, HCO2: 33.1, Cr:1.2, eGFR:43, Glucose: 241, HbA1c: 6.6, Lactic acid:2.4 (increased to 18.0 in 3hrs), Ca 9.8 (decreased to 6.4 in 3hrs), Troponin:0.051, BNP: 193 CXR (08/01/2025): Extensive bilateral pneumonia, consider associated mild heart failure In ED, Patient received 125 mg IV push methylprednisolone, Zosyn, treatment with albuterol, ipratropium, a dose of vancomycin, 2.5 L of L Medical history: As stated above Surgical history: Right breast lumpectomy, Cholesectomy Allergies: Cefuroxime, Topical zinc, Iodine contrast, Sulfa, Influenza virus, Cefuroxime Medications: Vitamin C 500 mg twice a day, Aspirin 81 mg daily, Calcium vitamin D supplement, Estrogen vaginal cream, [place] 5-3 25 p.o. 3 times daily as needed for pain, Hydroxyzine 25 mg tablet every 6 hours as needed for anxiety, Levothyroxine 100 mcg daily, Metformin 500 mg daily, 35 insulin degludec every morning, 8 units 3 times daily with meals, plus sliding scale, Methenamine 1 g p.o. twice daily, Metoprolol succinate 25 mg daily, Omeprazole 40 mg daily, Pramipexole 1 mg daily, Prednisone 20 mg daily, taper currently, Rosuvastatin 5 mg nightly, Venlafaxine 150 mg XR daily Family history: Noncontributory Social history: Denies smoking cigarettes, drinking alcohol or using other illicit drugs, Lives at home, 24-hour caregiver support 08/02/2025: Labs reviewed and patient examined at the bedside. Recommend Diltiazem drip 10mg/hr and heparin drip if no contraindication to anticoagulation. Also recommend stopping metoprolol due to history of ILD and to avoid bronchospasm. ECHO is pending. Recommend IV lasix 20mg x1 after examining her kidney function and fluid status tomorrow. Upon examination, patient complains of SOB. but denies palpation, chest pain, nausea or vomiting. 08/03/2025: No Overnight events. Labs reviewed and patient examined at the bedside. This morning, patient was tachycardc (HR 120s) with low BP 109/86. Patient was given IV Digoxin 0.25mg x1 and 0.125mg x1 this morning. Patient was still tachycardic this afternoon, so another IV Digoxin 0.25mg x1 was given. Will assess her BP and HR tomorrow. Recommend increasing Ditiazem drip 10mg/hr to 15mg/hr tomorrow if patient is still tachycardic as long as BP tolerates. Patient's sodium increased from 149 to 152, likely from dehydration. No need for diuresis for now. Recommend putting NG tube and give water flushes for hypernatremia, and change heparin drip to oral eliquis and IV digoxin to PO digoxin. Denies chest pain, palpation, N/V, fevers or chills. Exam Vital Signs Temp Pulse Resp BP Pulse Ox O2 Del Method O2 Flow Rate 97.7 F 94 18 138/54 H 94 L BiPAP 40 08/03/25 04:00 08/03/25 07:52 08/03/25 06:32 08/03/25 07:52 08/03/25 06:32 08/03/25 04:00 08/02/25 20:00 FiO2 40 08/03/25 06:32 Narrative Exam General: AAOx3, Stressed, Frail, Elderly, on BiPAP Eye: normal conjunctiva, no scleral icterus HENT: Normocephalic, atraumatic, hearing intact to conversation at normal volume, moist oral mucosa Neck: Supple, non-tender, no JVD, no lymphadenopathy Lungs: Labored respirations, symmetric chest rise, Clear to auscultate bilaterally, Wheezing bilateral lungs Heart: Peripheral pulses intact bilaterally, Irregularly irregular Abdomen: Soft, non-tender, Distended, no palpable masses Musculoskeletal: No cyanosis or edema, No visible joint swelling Skin: Skin is warm, dry, no rashes or lesions. Neuro: Cranial nerves II-XII grossly intact. Sensations intact to light touch. Objective Labs 08/03/25 05:45 08/03/25 05:45 Labs: Laboratory Results - last 24 hr 08/02/25 08/02/25 08/02/25 05:20 12:15 21:36 WBC RBC Hgb Hct MCV MCH MCHC RDW Std Deviation Plt Count Neut % (Auto) Lymph % (Auto) [place] % (Auto) Eos % (Auto) Baso % (Auto) Neut # (Auto) Lymph # (Auto) [place] # (Auto) Eos # (Auto) Baso # (Auto) Immature Gran # (Auto) Absolute Nucleated RBC Immature Gran % Neutrophils % (Manual) 50 Monocytes % (Manual) 2 Metamyelocytes % 5 H Nucleated RBC % Band Neutrophils 39 H Lymphocytes (Manual) 4 L APTT 95.4 H D Puncture Site Site Not Noted ABG pH 7.30 L ABG pCO2 66 H ABG pO2 84 D ABG HCO3 32 H ABG O2 Saturation 95 ABG Base Excess 4 H FiO2 60 Sodium Potassium Chloride Carbon Dioxide Anion Gap BUN Creatinine Estim Creat Clear Calc eGFR BUN/Creatinine Ratio Glucose Calculated Osmolality Calcium Corrected Calcium Phosphorus Magnesium Total Bilirubin AST ALT Alkaline Phosphatase Total Protein Albumin Globulin Albumin/Globulin Ratio 08/03/25 05:45 WBC 12.5 H RBC 3.32 L Hgb 9.7 L Hct 33.2 L MCV 100 MCH 29.2 MCHC 29.2 L RDW Std Deviation 67.1 H Plt Count 161 Neut % (Auto) 89 H Lymph % (Auto) 4 L [place] % (Auto) 4 Eos % (Auto) 0 Baso % (Auto) 1 Neut # (Auto) 11.2 H Lymph # (Auto) 0.5 L [place] # (Auto) 0.5 Eos # (Auto) 0.0 Baso # (Auto) 0.1 Immature Gran # (Auto) 0.26 H Absolute Nucleated RBC 0.05 H Immature Gran % 2 H Neutrophils % (Manual) Monocytes % (Manual) Metamyelocytes % Nucleated RBC % 0 Band Neutrophils Lymphocytes (Manual) APTT 52.4 H D Puncture Site ABG pH ABG pCO2 ABG pO2 ABG HCO3 ABG O2 Saturation ABG Base Excess FiO2 Sodium 152 H Potassium 4.6 Chloride 109 H Carbon Dioxide 31.5 H Anion Gap 12 BUN 30 H Creatinine 1.2 Estim Creat Clear Calc 39.1 L eGFR 43 L BUN/Creatinine Ratio 25 H Glucose 195 H Calculated Osmolality 312 H Calcium 9.7 Corrected Calcium 10.0 Phosphorus 2.5 Magnesium 2.5 Total Bilirubin 0.5 AST 13 ALT 36 Alkaline Phosphatase 53 Total Protein 5.7 Albumin 3.6 Globulin 2.1 L Albumin/Globulin Ratio 1.7 ABG Interpretation ABG results: 08/01/25 08/01/25 08/02/25 02:15 09:05 12:15 ABG pH 7.25 L 7.30 L ABG pCO2 74 H* 66 H ABG pO2 62 L 84 D ABG HCO3 33 H 32 H ABG O2 Saturation 95 95 ABG Base Excess 4 H 4 H VBG pH 7.27 L VBG pCO2 63 H VBG pO2 Not Performed. VBG Base Excess 0 Quality Measures Quality Measures VTE prophylaxis Advance care planning discussed with:: patient and other Assessment & Plan Assessment Current Active Medications: Generic Name Dose Route Start Last Admin Trade Name Freq PRN Reason Stop Dose Admin Acetaminophen 650 mg 08/01/25 05:05 Acetaminophen 325 Mg Tablet PO 08/31/25 05:04 Q6H PRN Fever >100.4 Aspirin 81 mg 08/01/25 09:00 08/02/25 09:18 Aspirin Ec 81 Mg Tabec PO 08/31/25 08:59 Not Given DAILY LISETTE Atorvastatin Calcium 10 mg 08/01/25 21:00 08/02/25 20:12 Atorvastatin Calcium 10 Mg Tablet PO 08/31/25 20:59 Not Given HS LISETTE Dextrose 25 ml 08/01/25 05:16 Dextrose 50%-Water Inj 50 Ml Syringe IV 08/31/25 05:15 Q15MIN PRN BG 50-70 responsive npo pt Dextrose 50 ml 08/01/25 05:16 Dextrose 50%-Water Inj 50 Ml Syringe IV 08/31/25 05:15 Q15MIN PRN BG <50 OR BG <70 & pt unresponsive Glucagon 1 mg 08/01/25 05:16 Glucagon Inj 1 Mg Vial IM Q15MIN PRN BG <70, and no IV access Piperacillin Sod/Tazobactam 100 mls @ 200 mls/hr 08/01/25 12:00 08/03/25 05:47 Sod 2.25 gm/ Sodium Chloride IV 08/08/25 11:59 Infused Q6HR [facility] Infusion Protocol Vancomycin HCl 250 mls @ 120 mls/hr 08/02/25 10:00 08/02/25 20:37 Vancomycin/Water 1250 Mg Ivpb IV 08/09/25 09:59 Infused Q24H [facility] Infusion Protocol Heparin Sodium/Dextrose 25,000 unit in 250 mls @ 10.093 mls/hr 08/02/25 14:00 08/02/25 22:53 Heparin In D5w Ivpb IV 08/16/25 13:59 7.7 units/kg/hr .Q24H [facility] 8.012 mls/hr Protocol Titration 9.7 UNITS/KG/HR Diltiazem HCl 125 mg in 125 mls @ 10 mls/hr 08/02/25 17:06 08/03/25 07:52 Diltiazem In D5w 125 Mg IV 09/01/25 17:04 10 mg/hr .[id number] [facility] 10 mls/hr 10 MG/HR Administration Insulin Degludec 35 unit 08/01/25 09:00 08/02/25 09:17 Insulin Degludec 5 Unit/0.05 Ml (Per 5 Units) SC 08/31/25 08:59 35 unit QDAY [facility]TE Administration Insulin Human Lispro 0 unit 08/01/25 07:30 08/02/25 20:12 Insulin Lispro (Admelog) 1 Unit/0.01 Ml Unit SC 08/31/25 07:29 Not Given ACHS [facility] Protocol Ipratropium [place] 0.5 mg 08/02/25 17:04 Ipratropium Rt 0.5 Mg/ 2.5 Ml Nebu INH 09/01/25 17:03 Q6HR PRN SHORTNESS OF BREATH Levalbuterol HCl 0.63 mg 08/02/25 17:04 Levalbuterol Rt 0.63 Mg/3 Ml Nebu INH 09/01/25 17:03 Q6H PRN WHEEZING Levothyroxine Sodium 70 mcg 08/02/25 09:00 08/02/25 09:27 Levothyroxine Inj 100 Mcg Vial IV 09/01/25 08:59 70 mcg QDAY [place] Administration Methylprednisolone Sodium Succinate 16 mg 08/02/25 09:00 08/02/25 09:26 Methylprednisolone Sod Succ 40 Mg/Ml Vial IVP 08/09/25 08:59 16 mg QDAY [place] Administration Metoprolol Succinate 25 mg 08/01/25 09:00 08/02/25 09:20 Metoprolol Succinate Xl 25 Mg Tabcr PO 08/31/25 08:59 Not Given DAILY [facility]TE Pantoprazole Sodium 40 mg 08/01/25 09:00 08/02/25 09:27 Pantoprazole Inj 40 Mg Vial IVP 08/31/25 08:59 40 mg QDAY [place] Administration Pharmacy Consult 1 each 08/01/25 17:00 Vancomycin Pharmacy To Dose 1 Each Each IV 08/31/25 16:59 QDAY PRN SEPSIS Polyethylene Glycol 17 gm 08/01/25 09:00 08/02/25 09:20 Polyethylene Glycol 17 Gm Packet PO 08/31/25 08:59 Not Given DAILY [facility]TE Pramipexole Dihydrochloride 1 mg 08/01/25 21:00 08/02/25 20:12 Pramipexole 0.25 Mg Tablet PO 08/31/25 20:59 Not Given HS [facility]TE Sennosides 1 tab 08/01/25 09:00 08/02/25 09:20 Senna Tablet PO 08/31/25 08:59 Not Given QDAY [facility] Protocol Sodium Chloride 3 ml 08/01/25 02:11 Sodium Chloride Rt Sravani 0.9% 3 Ml Nebu INH 08/31/25 02:10 PRN PRN SOLN Venlafaxine HCl 150 mg 08/01/25 09:00 08/02/25 09:20 Venlafaxine Xr 37.5 Mg Capcr PO 08/31/25 08:59 Not Given DAILY LISETTE Plan Ms Adelaida Coffman is 89yF with PMH of interstitial lung disease, pulmondary fibrosis, chronic CO2 retention on 2L home oxygen and BiPAP, HFpEF, bedbound, recurrent UTIs, hypothyrodism, right breast cancer status postlumpectomy, insulin-dependent type 2 diabetes, GERD, depression, and chronic back pain, presented to the ED on 08/01/2025 due to hypoxemia. Patient was admitted for acute on chronic hypoxic hypercapnic respiratory failure and aspiration pneumonia. Cardiology was consulted for management of new onset Afib on EKG. #New Onset A Fib with RVR -Patient has SOB. Denies palpation or chest pain. -EKG showed irregularly irregular rhythm rate 155 with RBBB. MAT ruled out. No history of atrial fibrillation -CHADSVASc score 6 HASBLEED score 3. High Risk of major bleeding -Was given diltiazem IV 20 mg x 1 and was started on diltiazem gtt. 5 mg/h which was increased to 10 mg/h as patient continued to remain tachycardic -On morning of 08/03, patient was tachycardc (HR 120s) with low BP 109/86. Patient was given IV Digoxin 0.25mg x1 and 0.125mg x1 this morning. Patient was still tachycardic this afternoon, so another IV Digoxin 0.25mg x1 was given. Plan: -Continue diltiazem drip 10mg/hr. Recommend increasing Ditiazem drip 10mg/hr to 15mg/hr if BP tolerates and patient is still tachycardic -Recommend putting NG tube to change heparin drip to oral eliquis and IV digoxin to PO digoxin. -Patient today received total 0.625 mg of digoxin, will consider 0.25 mg dose in a.m. depending on blood pressure and heart rate. -Recommend heparin drip if no contraindication to anticoagulation -Recommend Holter monitor outpatient to assess afib burden. -Keep potassium greater than 4 and magnesium greater than 2 at all times #Chronic diastolic CHF, HFpEF EF 65% (12/29/2024) -Past ECHO (12/29/2024): Normal left ventricular size and function. Approximate ejection fraction is 65%. Trace mitral and trace tricuspid regurgitation, No wall motion abnormalities noted. -CXR (08/02/2025): extensive bilateral lung opacity, Mild enlargement cardiac contour with significant vascular congestion on physical exam 1+ edema noted bilateral hips. -Patient's underlying respiratory status and lieu of ILD flare/aspiration pneumonia -ECHO (08/02/2025) showed: 1. Left ventricle size is normal and systolic function is normal. Estimated ejection fraction is 60-65%. There is indeterminate diastolic function due to afib. There is mild concentric hypertrophy noted. 2. Right ventricle is not well visualized. RV function appears normal. 3. There is mild aortic valve sclerosis with no stenosis. 4. Mild thickening of the mitral valve leaflets. Mild MR, mild MAC. Mild TR. 5. Normal IVC with estimated RA pressure 3 mmHg. 6. Prior study from 12/29/2024. Plan: -Hold diuresis now as patient does not have signs of fluid overload -Strict I and Os, -Fluid restriction 1500ml -Mg>2, K>4 -Management of respiratory disease per primary team #Pulmonary Hypertension, Group III #Hx of Interstitial Lung Disease -PMH of interstitial Lung Disease -Chest CT (08/01/2025): Pulmonary artery hypertension, Severe pneumonia and/or edema throughout the lungs Plan: -BiPAP prn -Duoneb prn -Steroid taper per pulmonology #HTN -In ED, 155/80 -Continue diltiazem drip for now. #Hypernatremia #Acute on chronic hypoxic hypercapnic respiratory failure, likely secondary to #Aspiration pneumonia #Sepsis #GPC bacteremia #Lactic acidosis #Leukocytosis #UTI #Insulin-dependent type 2 diabetes #Esophageal stenosis s/p dilation #Chronic normocytic anemia #Hyperlipidemia #Hypothyroidism #Chronic constipation #Depression #Parkinson -Management per Primary Hospitalist team Thank you for allowing us to participate in the care of Ms Adelaida Coffman. Cardiology will continue to follow Assessment and plan discussed with my attending physician Dr. Spencer and Dr. Allen (PGY-2) Dr. Stovall (PGY-1) - Internal medicine resident Attending Provider Attestation/Addendum I have personally seen and examined the patient separately on the above date of service and discussed the plan of care with the resident. I reviewed the resident Dr. Doron Allen consultation progress note and agree with the resident findings and plan in the note above and have also edited the documentation to reflect my findings and plan. Steven Spencer M.D. Interventional Cardiology
[2025-08-03] MEDS: INSULIN DEGLUDEC 5 UNIT/0.05 ML (PER 5 UNITS) 35 UNIT SC (08:16)
[2025-08-03 09:27] LABS: Free T4 (Free Thyroxine) 1.30 ng/dL (0.89-1.76); Thyroid Stimulating Hormone 1.32 uIU/mL (0.55-4.78)
--- NOTE | 2025-08-03 10:17 | ESPR_ITS ---
<Statement entered by John Paul Warren MD - 08/11/25 09:14> I reviewed above note and agree with findings and plans. I have also personally examined the patient with medicine team and went over assessment and plan with medical team including director internal audit and resident physician. <Statement entered by Jeffry Eller MD - 08/03/25 15:30> In summary: 89-year-old female with extensive PMHx including chronic respiratory failure secondary to interstitial lung disease and pulmonary fibrosis (BiPAP dependent 2/2 chronic CO2 retention), currently on prolonged STEROID taper since last admission for acute hypoxic respiratory failure, HFpEF, hypothyroidism, right breast cancer s/p neurectomy, IDDM presented with hypoxemia respiratory acidosis in settings of aspiration pneumonia with elevated lactate and findings of bilateral pneumonia on CXR. She also had UA positive for UTI, and preliminary urine grew GNR for which she is on ZOSYN based on previous biogram. 1 out of 2 blood culture grew grew staph epidermis which is likely a contaminant. She is on VANCOMYCIN and pending repeat blood culture. Cardiac castellanos, HR remains elevated despite DILTIAZEM drip. Unable to increase the rate as blood pressure won't tolerate. Subsequently, we've given DILTIAZEM 0.25 x 2 but no significant response. Pending further recommendations from cardiology. Continued on BiPAP HS and intermittently throughout the day. I?ve reviewed the note and agree with this assessment and plan, with the exceptions outlined above. I personally went over the labs, imaging, home medications, and prior records, and examined the patient. The case was also reviewed with the attending physician. Please note: this document was transcribed using voice recognition technology; minor inaccuracies may be present. Jeffry Eller DO PGY II Documentation for date of: 08/03/25 Subjective Subjective Interval history: No acute events overnight. The patient was assessed at the bedside this morning. Initially on HFNC, the patient was weaned off and transitioned to BiPAP. A central line was placed today due to difficulty with IV access. Urine culture preliminary results show gram-negative rods, Zosyn will be continued. 2/2 blood culture was positive for Staphylococcus epidermidis, will repeat blood cultures and continue Vancomycin. The heart rate remains elevated despite diltiazem 10 mg and two doses of digoxin (0.25 mg x1, 0.125 mg x1), with no significant improvement in heart rate. Further recommendations are pending from cardiology. Exam Vital Signs Temp Pulse Resp BP Pulse Ox O2 Del Method O2 Flow Rate 97.3 F 132 H 28 H 138/54 H 96 BiPAP 20 08/03/25 08:00 08/03/25 09:59 08/03/25 09:59 08/03/25 08:00 08/03/25 09:59 08/03/25 08:00 08/03/25 08:39 FiO2 40 08/03/25 09:59 Narrative Exam Physical Exam General: Chronically ill-appearing woman on BiPAP, obese habitus. HEENT: Normocephalic, atraumatic. Heart: Tachycardic, regular rhythm, normal S1 and S2, no murmurs. Lungs: Diffuse crackles bilaterally. Abdomen: Obese, firm, distended, nontender. No guarding or rebound tenderness. Neurologic: Alert and oriented x3, no gross neurological deficit, and patient able to move all 4 extremities. Extremities: No edema, clubbing or cyanosis. No joint deformity. Skin: Warm and dry without rashes. : Queen in place, draining yellow urine. Objective Labs 08/05/25 05:19 08/05/25 05:19 Labs: Laboratory Results - last 24 hr 08/02/25 08/02/25 08/02/25 05:20 12:15 21:36 WBC RBC Hgb Hct MCV MCH MCHC RDW Std Deviation Plt Count Neut % (Auto) Lymph % (Auto) [place] % (Auto) Eos % (Auto) Baso % (Auto) Neut # (Auto) Lymph # (Auto) [place] # (Auto) Eos # (Auto) Baso # (Auto) Immature Gran # (Auto) Absolute Nucleated RBC Immature Gran % Neutrophils % (Manual) 50 Monocytes % (Manual) 2 Metamyelocytes % 5 H Nucleated RBC % Band Neutrophils 39 H Lymphocytes (Manual) 4 L APTT 95.4 H D Puncture Site Site Not Noted ABG pH 7.30 L ABG pCO2 66 H ABG pO2 84 D ABG HCO3 32 H ABG O2 Saturation 95 ABG Base Excess 4 H FiO2 60 Sodium Potassium Chloride Carbon Dioxide Anion Gap BUN Creatinine Estim Creat Clear Calc eGFR BUN/Creatinine Ratio Glucose Calculated Osmolality Calcium Corrected Calcium Phosphorus Magnesium Total Bilirubin AST ALT Alkaline Phosphatase Total Protein Albumin Globulin Albumin/Globulin Ratio TSH Free T4 08/03/25 05:45 WBC 12.5 H RBC 3.32 L Hgb 9.7 L Hct 33.2 L MCV 100 MCH 29.2 MCHC 29.2 L RDW Std Deviation 67.1 H Plt Count 161 Neut % (Auto) 89 H Lymph % (Auto) 4 L [place] % (Auto) 4 Eos % (Auto) 0 Baso % (Auto) 1 Neut # (Auto) 11.2 H Lymph # (Auto) 0.5 L [place] # (Auto) 0.5 Eos # (Auto) 0.0 Baso # (Auto) 0.1 Immature Gran # (Auto) 0.26 H Absolute Nucleated RBC 0.05 H Immature Gran % 2 H Neutrophils % (Manual) Monocytes % (Manual) Metamyelocytes % Nucleated RBC % 0 Band Neutrophils Lymphocytes (Manual) APTT 52.4 H D Puncture Site ABG pH ABG pCO2 ABG pO2 ABG HCO3 ABG O2 Saturation ABG Base Excess FiO2 Sodium 152 H Potassium 4.6 Chloride 109 H Carbon Dioxide 31.5 H Anion Gap 12 BUN 30 H Creatinine 1.2 Estim Creat Clear Calc 39.1 L eGFR 43 L BUN/Creatinine Ratio 25 H Glucose 195 H Calculated Osmolality 312 H Calcium 9.7 Corrected Calcium 10.0 Phosphorus 2.5 Magnesium 2.5 Total Bilirubin 0.5 AST 13 ALT 36 Alkaline Phosphatase 53 Total Protein 5.7 Albumin 3.6 Globulin 2.1 L Albumin/Globulin Ratio 1.7 TSH 1.32 Free T4 1.30 ABG Interpretation ABG results: 08/01/25 08/01/25 08/02/25 02:15 09:05 12:15 ABG pH 7.25 L 7.30 L ABG pCO2 74 H* 66 H ABG pO2 62 L 84 D ABG HCO3 33 H 32 H ABG O2 Saturation 95 95 ABG Base Excess 4 H 4 H VBG pH 7.27 L VBG pCO2 63 H VBG pO2 Not Performed. VBG Base Excess 0 Quality Measures Quality Measures VTE prophylaxis Advance care planning discussed with:: patient Assessment & Plan Assessment Current Active Medications: Generic Name Dose Route Start Last Admin Trade Name Freq PRN Reason Stop Dose Admin Acetaminophen 650 mg 08/01/25 05:05 Acetaminophen 325 Mg Tablet PO 08/31/25 05:04 Q6H PRN Fever >100.4 Aspirin 81 mg 08/01/25 09:00 08/03/25 08:28 Aspirin Ec 81 Mg Tabec PO 08/31/25 08:59 Not Given DAILY LISETTE Atorvastatin Calcium 10 mg 08/01/25 21:00 08/02/25 20:12 Atorvastatin Calcium 10 Mg Tablet PO 08/31/25 20:59 Not Given HS LISETTE Dextrose 25 ml 08/01/25 05:16 Dextrose 50%-Water Inj 50 Ml Syringe IV 08/31/25 05:15 Q15MIN PRN BG 50-70 responsive npo pt Dextrose 50 ml 08/01/25 05:16 Dextrose 50%-Water Inj 50 Ml Syringe IV 08/31/25 05:15 Q15MIN PRN BG <50 OR BG <70 & pt unresponsive Glucagon 1 mg 08/01/25 05:16 Glucagon Inj 1 Mg Vial IM Q15MIN PRN BG <70, and no IV access Piperacillin Sod/Tazobactam 100 mls @ 200 mls/hr 08/01/25 12:00 08/03/25 05:47 Sod 2.25 gm/ Sodium Chloride IV 08/08/25 11:59 Infused Q6HR [facility] Infusion Protocol Vancomycin HCl 250 mls @ 120 mls/hr 08/02/25 10:00 08/02/25 20:37 Vancomycin/Water 1250 Mg Ivpb IV 08/09/25 09:59 Infused Q24H [facility] Infusion Protocol Heparin Sodium/Dextrose 25,000 unit in 250 mls @ 10.093 mls/hr 08/02/25 14:00 08/03/25 08:31 Heparin In D5w Ivpb IV 08/16/25 13:59 7.7 units/kg/hr .Q24H [facility] 8.012 mls/hr Protocol Titration 9.7 UNITS/KG/HR Diltiazem HCl 125 mg in 125 mls @ 10 mls/hr 08/02/25 17:06 08/03/25 07:52 Diltiazem In D5w 125 Mg IV 09/01/25 17:04 10 mg/hr .[id number] LISETTE 10 mls/hr 10 MG/HR Administration Insulin Degludec 35 unit 08/01/25 09:00 08/03/25 08:16 Insulin Degludec 5 Unit/0.05 Ml (Per 5 Units) SC 08/31/25 08:59 35 unit QDAY LISETTE Administration Insulin Human Lispro 0 unit 08/01/25 07:30 08/03/25 07:30 Insulin Lispro (Admelog) 1 Unit/0.01 Ml Unit SC 08/31/25 07:29 Not Given ACHS L[facility]ETTE Protocol Ipratropium Henrietta 0.5 mg 08/02/25 17:04 Ipratropium Rt 0.5 Mg/ 2.5 Ml Nebu INH 09/01/25 17:03 Q6HR PRN SHORTNESS OF BREATH Levalbuterol HCl 0.63 mg 08/02/25 17:04 Levalbuterol Rt 0.63 Mg/3 Ml Nebu INH 09/01/25 17:03 Q6H PRN WHEEZING Levothyroxine Sodium 70 mcg 08/02/25 09:00 08/03/25 08:15 Levothyroxine Inj 100 Mcg Vial IV 09/01/25 08:59 70 mcg QDAY LISETTE Administration Methylprednisolone Sodium Succinate 16 mg 08/02/25 09:00 08/03/25 08:14 Methylprednisolone Sod Succ 40 Mg/Ml Vial IVP 08/09/25 08:59 16 mg QDAY LISETTE Administration Pantoprazole Sodium 40 mg 08/01/25 09:00 08/03/25 08:13 Pantoprazole Inj 40 Mg Vial IVP 08/31/25 08:59 40 mg QDAY LISETTE Administration Pharmacy Consult 1 each 08/01/25 17:00 Vancomycin Pharmacy To Dose 1 Each Each IV 08/31/25 16:59 QDAY PRN SEPSIS Polyethylene Glycol 17 gm 08/01/25 09:00 08/03/25 08:29 Polyethylene Glycol 17 Gm Packet PO 08/31/25 08:59 Not Given DAILY LISETTE Pramipexole Dihydrochloride 1 mg 08/01/25 21:00 08/02/25 20:12 Pramipexole 0.25 Mg Tablet PO 08/31/25 20:59 Not Given HS LISETTE Sennosides 1 tab 08/01/25 09:00 08/03/25 08:29 Senna Tablet PO 08/31/25 08:59 Not Given QDAY [place]TE Protocol Sodium Chloride 3 ml 08/01/25 02:11 Sodium Chloride Rt Sravani 0.9% 3 Ml Nebu INH 08/31/25 02:10 PRN PRN SOLN Venlafaxine HCl 150 mg 08/01/25 09:00 08/03/25 08:29 Venlafaxine Xr 37.5 Mg Capcr PO 08/31/25 08:59 Not Given DAILY LISETTE Plan 89-year-old female with past medical history of interstitial lung disease, pulmonary fibrosis, chronic CO2 retention on 2 L home oxygen and BiPAP, HFpEF, hypothyroidism, right breast cancer status postlumpectomy, insulin-dependent type 2 diabetes, GERD, MDR UTI presented for shortness of breath, found to have hypoxemia and respiratory acidosis, admitted for acute on chronic hypoxic hypercapnic respiratory failure likely secondary aspiration pneumonia. #Acute on chronic hypoxic hypercapnic respiratory failure, likely secondary to #Aspiration pneumonia #Hx of Interstitial Lung Disease #Pulmonary arterial hypertension - Known history of chronic interstitial lung disease and pulmonary fibrosis, contributing to chronic respiratory failure, chronic CO2 retention, and the need for BiPAP and home oxygen (2L). - Current acute exacerbation appears to be triggered by aspiration, likely exacerbated by recent intensified coughing after meals. The patient had worsening respiratory distress following dinner, with increasing cough and suspected aspiration of food. - Initial lactate was elevated at 2.4 --> 2.7 --> 2.3. Given the hypoxia and respiratory failure, the lactic acidosis may be due to tissue hypoperfusion and/or poor oxygenation. - Initial ABG showed pH 7.25, pCO2 74, pO2 62, bicarb 33, represents respiratory acidosis. - CXR 08/01: extensive bilateral pneumonia, prominent vascular congestion. - Patient is currently on a prednisone taper for ILD. - Patient failed ST swallow screen. - EGD and esophageal dilation on 02/08/25 for esophageal stenosis. - ABG 08/03: pH 7.33, pCO2 64, HCO3 34. Plan: * BiPAP as needed. * Switched DuoNebs to Levalbuterol as patient is tachycardic. * Continuous pulse oximetry to closely monitor oxygen saturation. * Aspiration precautions. * Keep NPO. Continue medications in IV form. * Switched Prednisone 20mg PO QD to Methylprednisolone 16 mg IV QD as patient is NPO. Given the patient's history of interstitial lung disease, the steroid taper should proceed as planned, maintaining the current dose for 1 more week before reassessment. * Monitor for signs of worsening pneumonia or other complications. #Sepsis #Staphylococcus epidermidis bacteremia #Pseudomonas aeruginosa UTI #Lactic acidosis #Leukocytosis - Etiology: Staphylococcus epidermidis bacteremia with suspected urinary tract infection as the source? - Lactate: 2.4 --> 2.7 --> 2.3. - WBC 23.2 on admission. - Blood culture: 2/2 GPC bacteremia. - UA: 1+ protein, 44 RBC, 76 WBC, amorphous crystals, budding yeast, leukocyte esterase positive. Previous culture was positive for pansensitive Klebsiella Ozaenae. - Urine culture: Peudomonas aeruginosa. Sensitive to Zosyn. - CXR: extensive bilateral pneumonia, prominent vascular congestion. - Fluids: 30 mL/kg, 2L of LR given in ED. Plan: * Vancomycin pharmacy to dose (08/02-) * Zosyn 2.25 g every 8 hours for UTI. (08/01-) * Oxygen / Ventilation: BiPAP. * Renal: strict I&O, avoid nephrotoxins. * CBC/BMP daily or more frequent if unstable. * Monitor organ dysfunction resolution or progression. * Repeat blood culture. #New onset Atrial fibrillation with RVR - EKG on 08/02 showed irregularly irregular rhythm rate 155 with RBBB. - No history of atrial fibrillation. - CHADSVASc score 6. - HASBLEED score 3. High Risk of major bleeding. - Was given diltiazem IV 20 mg x 1 and was started on diltiazem gtt. 5 mg/h which was increased to 10 mg/h as patient continued to remain tachycardic. Plan: * Cardiology consulted - appreciate recs. * Heparin and diltiazem 10mg/hr drip. * Keep potassium greater than 4 and magnesium greater than 2 at all times. * Two doses of digoxin (0.25 mg x1, 0.125 mg x1) given on 08/03 with no significant improvement in heart rate. #NSTEMI - Likely secondary to demand ischemia. - Troponin of 0.051 --> 0.030. - EKG showed sinus tachycardia with a rate of 131 QTc 473, widened upright QRS in V1 may represent right bundle branch block, No acute ST segment changes in other leads Plan: * Continue to monitor for chest pain. #Insulin-dependent type 2 diabetes - Per caregiver the patient is on 35 units of Lantus every morning, sliding scale, and 8 units regular 3 times daily with meals. - Hemoglobin A1c 2 months ago was 6.4. - Glucose on admission was 241. Plan: * Insulin degludec 35 units QD. * Insulin sliding scale. * Carb consistent diet once patient passes swallow eval. #Esophageal stenosis s/p dilation - s/p EGD with dilation for dysphagia secondary to esophageal stenosis on 02/08/2025. - GI recommended checking TSH and T4 to make sure patient is on adequate supplement as hypothyroidism can cause dysphagia. Both within normal range. Plan: * Keep patient NPO. * GI consulted. EGD when patient's respiratory status improves. #Chronic normocytic anemia - Hemoglobin 11.8, MCV 101. - Likely secondary to anemia of chronic disease secondary to history of breast cancer and interstitial lung disease. - No suspicion for active bleed at this time. Plan: * No direct intervention at this time. * Monitor CBC. #Chronic diastolic CHF, HFpEF - Echo from 12/2024 showed EF 65%. Trace mitral and trace tricuspid regurgitation, No wall motion abnormalities noted. - BNP 193. -CXR (08/02/2025): extensive bilateral lung opacity, Mild enlargement cardiac contour with significant vascular congestion on physical exam 1+ edema noted bilateral hips. -Patient's underlying respiratory status and lieu of ILD flare/aspiration pneumonia Plan: * Pending echo read. * Strict I and Os. * Fluid restriction 1500ml #Hypernatremia (resolved) #Hyperkalemia (resolved) - On admission, sodium 148 and potassium 5.2. - Likely secondary to decreased oral intake, lack of insulin, or hyperglycemia. - Patient received fluids in the ED and will start receiving insulin sliding scale. #Hyperlipidemia Plan: * Hold atorvastatin 10 mg nightly as patient is NPO. #Hypothyroidism - Home medication: Levothyroxine 100 mcg daily. Plan: * Levothyroxine 70 mcg IV QD as patient is NPO. #Chronic constipation - Per caregiver, the patient's last bowel movement was 07/30/2025. Plan: * Daily senna and MiraLAX. #Depression Plan: * Hold home Venlafaxine 150 mg XR p.o. daily as patient is NPO. #Parkinson Plan: * Hold home pramipexole 1 mg nightly as patient is NPO. Health Maintenance Disposition: tele DVT prophylaxis: Heparin 5,000 U subQ GI prophylaxis: Pantoprazole 40 mg IV daily Diet: NPO Queen: In place Lines: Peripheral IV CODE STATUS: DNR/DNI --- Patient plan of care was discussed with the senior resident, Dr. Eller, and attending physician, Dr. Warren. Eugene Valente, DO PGY-1
[2025-08-03] MEDS: DIGOXIN INJ 0.25 MG/ML AMP 2 ML IVP ×2 (10:29→18:09)
[2025-08-03] MEDS: VANCOMYCIN/WATER 1250 MG IVPB 250 ML 120 MG IV (10:32)
[2025-08-03 10:57] LABS: Base Excess 6 (-3-3); HCO3 34 mEq/L (20-26); Inspired Oxygen, FIO2 40 %; O2 Saturation 95 % (91-98); PCO2 64 mmHg (32.0-48.0); PO2 88 mmHg (83-108); pH, Arterial 7.33 (7.35-7.45)
[2025-08-03 10:58] LABS: Allen Test Performed/OK; Puncture Site Left Radial
[2025-08-03] MEDS: DIGOXIN INJ 0.25 MG/ML AMP 2 ML 0.125 MG IVP (11:50)
[2025-08-03] MEDS: INSULIN LISPRO (AdmeLOG) 1 UNIT/0.01 ML UNIT SC ×2 (11:51→16:53)
[2025-08-03 12:22] LABS: Free T3 1.4 pg/mL (2.3-4.2)
[2025-08-03 12:54] LABS: T4 (Thyroxine) 4.6 mcg/dL (4.5-10.9)
--- NOTE | 2025-08-03 13:24 | PC.NURSE ---
Called IR to verify patient will receive central line today, spoke with Danielle QUEZADA. Will need RT to go with IR nurse. Danielle will call for time of procedure.
[2025-08-03] MEDS: HEPARIN SOD LOCK SYR 100 UNIT/ML 500 UNIT STFIELD (14:30)
[2025-08-03] MEDS: LIDOCAINE INJ PF 1% 30 ML VIAL 7 ML INFL (14:32)
[2025-08-03 15:29] LABS: Partial Thromboplastin Time 41.9 Seconds (22.0-36.0)
--- NOTE | 2025-08-03 15:31 | PC.NURSE ---
1448 patient post central line insertion to right IJ in IR department, patient transferred back to room 266 with tele box, bedside report given to Melissa QUEZADA
[2025-08-03] MEDS: HEPARIN SOD INJ 5000 UNIT/ML VIAL 2000 UNIT IVP (16:04)
--- NOTE | 2025-08-03 16:28 | PC.RT ---
Pt transported on bipap to IR for central line placement at 1430, no issues, pt tolerated well.
[2025-08-03] MEDS: Heparin/D5w 25K 250 ML Ivpb 25,000 UNIT/250 ML BAG 10.093 UNIT IV (17:14)
[2025-08-03 23:20] LABS: Partial Thromboplastin Time 87.7 Seconds (22.0-36.0)
[2025-08-04] VITALS (18 sets, daily range): BP systolic 135–161; BP diastolic 54–68; PULSE 72–86; RESP 8–31; TEMP 36.1–36.2; O2SAT 95–98
[2025-08-04] MEDS: PIPERACILLIN/TAZO 2.25GM INJ 2.25 GM in SODIUM CHLORIDE 0.9% (POP) 100 ML IV ×4 (05:13→23:27)
[2025-08-04 05:59] LABS: Basophils # (Auto) 0.1 Thou/mm3 (0.0-0.2); Basophils % (Auto) 1 % (0-2.5); Eosinophils # (Auto) 0.0 Thou/mm3 (0.0-0.5); Eosinophils % (Auto) 0 % (0-10); Hematocrit 31.5 % (36.0-46.0); Hemoglobin 9.1 g/dL (12.0-16.0); Immature Granulocytes Auto 0.57 Thou/mm3 (0.00-0.00); Lymphocytes # (Auto) 0.6 Thou/mm3 (1.0-4.8); Lymphocytes % (Auto) 4 % (10-50); Mean Corpuscular HGB Conc 28.9 g/dl (31.0-37.0); Mean Corpuscular Hemoglobin 28.8 pg (25.0-35.0); Mean Corpuscular Volume 100 fL (80-100); Monocytes # (Auto) 0.4 Thou/mm3 (0.0-0.8); Monocytes % (Auto) 3 % (0-12); Neutrophils # (Auto) 11.4 Thou/mm3 (1.8-7.7); Neutrophils % (Auto) 87 % (37-80); Nucleated Red Blood Cell # 0.07 Thou/mm3 (0.00-0.00); Nucleated Red Blood Cell % 1 /100 WBC (0); Platelet Count 160 Thou/mm3 (140-440); RDW Standard Deviation 63.4 fL (36.4-46.3); Red Blood Count 3.16 Miln/mm3 (4.00-5.20); White Blood Count 13.0 Thou/mm3 (3.6-11.0)
[2025-08-04 06:29] LABS: Alanine Aminotransferase 30 U/L (10-49); Albumin, Serum 3.4 gm/dL (3.4-4.8); Albumin/Globulin Ratio 1.6 (1.2-2.2); Alkaline Phosphatase 56 U/L (46-116); Anion Gap 8 (7-16); Aspartate Amino Transferase 12 U/L (0-34); BUN/Creatinine Ratio 32 Ratio (12-20); Bilirubin,Total 0.6 mg/dL (0.3-1.2); Blood Urea Nitrogen 29 mg/dL (9-23); Calcium 9.6 mg/dL (8.3-10.6); Calcium (Corrected) 10.1 mg/dL (8.5-10.1); Carbon Dioxide 33.8 mMol/L (20.0-31.0); Chloride 111 mMol/L (98-107); Creatinine (Component) 0.9 mg/dL (0.6-1.3); Digoxin 1.6 ng/mL (0.8-2.0); Estimated Creatinine Clearance 51.5 mL/min (>60); Globulin 2.1 gm/dL (2.3-3.5); Glucose 197 mg/dL (74-106); Magnesium 2.1 mg/dL (1.6-2.6); Osmolality,Calculated 314 (275-295); Phosphorous 2.4 mg/dL (2.4-5.1); Potassium 4.4 mMol/L (3.4-5.1); Sodium 153 mMol/L (136-145); Total Protein 5.5 gm/dL (5.7-8.2); eGFR > 60 See Note
[2025-08-04 06:32] LABS: INR 1.0 (0.9-1.3); Partial Thromboplastin Time 70.9 Seconds (22.0-36.0); Prothrombin Time 10.6 Seconds (9.0-12.2)
--- NOTE | 2025-08-04 08:09 | PC.SS ---
Rounding Note: Patient on high flow oxygen. EGD is pending.
[2025-08-04] MEDS: INSULIN DEGLUDEC 5 UNIT/0.05 ML (PER 5 UNITS) 35 UNIT SC (09:11)
[2025-08-04] MEDS: Magnesium Sulfate 2 GM Ivpb 2 GM/50 ML BAG IV (09:19)
--- NOTE | 2025-08-04 10:04 | XR_ITS ---
Examination: Abdomen AP single view Technique: AP portable supine abdomen, single view Exam date and time: August 04, 2025, 1014 hours INDICATIONS: Abdominal pain and distention this week. FINDINGS: Moderate to large amounts of stool throughout the colon No obstruction No free air Surgical clips upper right abdomen IMPRESSION: Nonobstructive bowel gas pattern
[2025-08-04 10:25] LABS: Sodium 151 mMol/L (136-145)
[2025-08-04] MEDS: DEXTROSE 5%-0.45% NS 1,000 ML 80 ML IV (10:29)
[2025-08-04] MEDS: INSULIN LISPRO (AdmeLOG) 1 UNIT/0.01 ML UNIT SC ×3 (11:51→20:14)
[2025-08-04 12:15] LABS: Vancomycin,Trough 15.9 mcg/mL (5.0-10.0)
[2025-08-04 12:29] LABS: Base Excess 8 (-3-3); HCO3 36 mEq/L (20-26); Inspired Oxygen, FIO2 40 %; O2 Saturation 95 % (91-98); PCO2 69 mmHg (32.0-48.0); PO2 85 mmHg (83-108); pH, Arterial 7.33 (7.35-7.45)
[2025-08-04 12:31] LABS: Allen Test Performed/OK; Puncture Site Left Radial
--- NOTE | 2025-08-04 12:36 | ESPR_ITS ---
<Statement entered by Jeffry Eller MD - 08/04/25 15:07> In summary: 89-year-old female with extensive PMHx including chronic respiratory failure secondary to interstitial lung disease and pulmonary fibrosis (BiPAP dependent 2/2 chronic CO2 retention), currently on prolonged STEROID taper since last admission for acute hypoxic respiratory failure, HFpEF, hypothyroidism, right breast cancer s/p neurectomy, IDDM presented with hypoxemia respiratory acidosis in settings of aspiration pneumonia with elevated lactate and findings of bilateral pneumonia on CXR. She also had UA positive for UTI, and preliminary urine grew GNR for which she is on ZOSYN based on previous biogram. 1 out of 2 blood culture grew grew staph epidermis which is likely a contaminant. She is on VANCOMYCIN and pending repeat blood culture. Cardiology is following for new onset AFIB/RVR, currently on DILTIAZEM drip 10 mg/HR and 0.125 mg DIGOXIN daily, HR appears controlled and BP is adequate. We are monitoring closely. She is otherwise asymptomatic. Continued on BiPAP HS and intermittently throughout the day, ABG unchanged from yesterday. She will be seen by pulmonology today for clearance before she undergo EGD for esophageal dilation given dysphagia. Currently, she is NPO and we are giving medication thru IV. Will touch base with GI once we have recommendations from pulmonology. I?ve reviewed the note and agree with this assessment and plan, with the exceptions outlined above. I personally went over the labs, imaging, home medications, and prior records, and examined the patient. The case was also reviewed with the attending physician. Please note: this document was transcribed using voice recognition technology; minor inaccuracies may be present. Jeffry Eller DO PGY II Documentation for date of: 08/04/25 Subjective Subjective Interval history: No significant events overnight. The patient was seen this morning with the post graduate internship at the bedside. Will speak with Dr. Jerez regarding the management of the patient's respiratory status, as he has been overseeing her care as her video game repair technician. The patient is currently receiving methylprednisolone 16 mg IV and continues on BIPAP. Hypernatremia was noted on AM labs, and D5W was administered since the patient is on BIPAP and NPO, with an inability to place an NG tube for free water flushes. Will continue to trend sodium. Dr. Peters will perform an EGD once the patient's respiratory condition stabilizes. Cardiology is actively following the patient and will continue diltiazem and heparin drip for afib. Tachycardia has resolved. A KUB was ordered due to the patient's complaints of abdominal pain, which revealed a large stool burden. The patient's last bowel movement was yesterday. A water enema has been ordered. Exam Vital Signs Temp Pulse Resp BP Pulse Ox O2 Del Method O2 Flow Rate 96.9 F 75 31 H 140/54 H 98 BiPAP 20 08/04/25 12:00 08/04/25 12:00 08/04/25 12:00 08/04/25 12:00 08/04/25 12:00 08/04/25 12:00 08/03/25 16:00 FiO2 40 08/04/25 11:36 Narrative Exam Physical Exam General: Chronically ill-appearing woman on BiPAP, obese habitus. HEENT: Normocephalic, atraumatic. Heart: Regular rate and rhythm, normal S1 and S2, no murmurs. Lungs: Diffuse crackles bilaterally. Abdomen: Obese, firm, distended, tender. No guarding or rebound tenderness. Neurologic: Alert and oriented x3, no gross neurological deficit, and patient able to move all 4 extremities. Extremities: No edema, clubbing or cyanosis. No joint deformity. Skin: Warm and dry without rashes. : Queen in place, draining yellow urine. Objective Labs 08/04/25 05:35 08/04/25 13:20 Labs: Laboratory Results - last 24 hr 08/03/25 08/03/25 08/03/25 11:35 15:04 22:22 WBC RBC Hgb Hct MCV MCH MCHC RDW Std Deviation Plt Count Neut % (Auto) Lymph % (Auto) [place] % (Auto) Eos % (Auto) Baso % (Auto) Neut # (Auto) Lymph # (Auto) [place] # (Auto) Eos # (Auto) Baso # (Auto) Immature Gran # (Auto) Absolute Nucleated RBC Immature Gran % Nucleated RBC % PT INR APTT 41.9 H D 87.7 H D Puncture Site ABG pH ABG pCO2 ABG pO2 ABG HCO3 ABG O2 Saturation ABG Base Excess FiO2 Sodium Potassium Chloride Carbon Dioxide Anion Gap BUN Creatinine Estim Creat Clear Calc eGFR BUN/Creatinine Ratio Glucose Calculated Osmolality Calcium Corrected Calcium Phosphorus Magnesium Total Bilirubin AST ALT Alkaline Phosphatase Total Protein Albumin Globulin Albumin/Globulin Ratio Thyroxine (T4) 4.6 Vancomycin Trough Digoxin 08/04/25 08/04/25 08/04/25 05:35 09:15 12:13 WBC 13.0 H RBC 3.16 L Hgb 9.1 L Hct 31.5 L MCV 100 MCH 28.8 MCHC 28.9 L RDW Std Deviation 63.4 H Plt Count 160 Neut % (Auto) 87 H Lymph % (Auto) 4 L [place] % (Auto) 3 Eos % (Auto) 0 Baso % (Auto) 1 Neut # (Auto) 11.4 H Lymph # (Auto) 0.6 L [place] # (Auto) 0.4 Eos # (Auto) 0.0 Baso # (Auto) 0.1 Immature Gran # (Auto) 0.57 H Absolute Nucleated RBC 0.07 H Immature Gran % 4 H Nucleated RBC % 1 H PT 10.6 INR 1.0 APTT 70.9 H D Puncture Site Left Radial ABG pH 7.33 L ABG pCO2 69 H ABG pO2 85 ABG HCO3 36 H ABG O2 Saturation 95 ABG Base Excess 8 H FiO2 40 Sodium 153 H 151 H Potassium 4.4 Chloride 111 H Carbon Dioxide 33.8 H Anion Gap 8 BUN 29 H Creatinine 0.9 Estim Creat Clear Calc 51.5 L eGFR > 60 BUN/Creatinine Ratio 32 H Glucose 197 H Calculated Osmolality 314 H Calcium 9.6 Corrected Calcium 10.1 Phosphorus 2.4 Magnesium 2.1 Total Bilirubin 0.6 AST 12 ALT 30 Alkaline Phosphatase 56 Total Protein 5.5 L Albumin 3.4 Globulin 2.1 L Albumin/Globulin Ratio 1.6 Thyroxine (T4) Vancomycin Trough 15.9 H Digoxin 1.6 ABG Interpretation ABG results: 08/01/25 08/01/25 08/02/25 02:15 09:05 12:15 ABG pH 7.25 L 7.30 L ABG pCO2 74 H* 66 H ABG pO2 62 L 84 D ABG HCO3 33 H 32 H ABG O2 Saturation 95 95 ABG Base Excess 4 H 4 H VBG pH 7.27 L VBG pCO2 63 H VBG pO2 Not Performed. VBG Base Excess 0 08/03/25 08/04/25 10:44 12:13 ABG pH 7.33 L 7.33 L ABG pCO2 64 H 69 H ABG pO2 88 85 ABG HCO3 34 H 36 H ABG O2 Saturation 95 95 ABG Base Excess 6 H 8 H VBG pH VBG pCO2 VBG pO2 VBG Base Excess Quality Measures Quality Measures VTE prophylaxis Advance care planning discussed with:: patient Assessment & Plan Assessment Current Active Medications: Generic Name Dose Route Start Last Admin Trade Name Freq PRN Reason Stop Dose Admin Acetaminophen 650 mg 08/01/25 05:05 Acetaminophen 325 Mg Tablet PO 08/31/25 05:04 Q6H PRN Fever >100.4 Aspirin 81 mg 08/01/25 09:00 08/04/25 09:06 Aspirin Ec 81 Mg Tabec PO 08/31/25 08:59 Not Given DAILY LISETTE Atorvastatin Calcium 10 mg 08/01/25 21:00 08/03/25 20:04 Atorvastatin Calcium 10 Mg Tablet PO 08/31/25 20:59 Not Given HS LISETTE Dextrose 25 ml 08/01/25 05:16 Dextrose 50%-Water Inj 50 Ml Syringe IV 08/31/25 05:15 Q15MIN PRN BG 50-70 responsive npo pt Dextrose 50 ml 08/01/25 05:16 Dextrose 50%-Water Inj 50 Ml Syringe IV 08/31/25 05:15 Q15MIN PRN BG <50 OR BG <70 & pt unresponsive Glucagon 1 mg 08/01/25 05:16 Glucagon Inj 1 Mg Vial IM Q15MIN PRN BG <70, and no IV access Piperacillin Sod/Tazobactam 100 mls @ 200 mls/hr 08/01/25 12:00 08/04/25 11:51 Sod 2.25 gm/ Sodium Chloride IV 08/08/25 11:59 200 mls/hr Q6HR LISETTE Administration Protocol Heparin Sodium/Dextrose 25,000 unit in 250 mls @ 10.093 mls/hr 08/02/25 14:00 08/04/25 06:35 Heparin In D5w Ivpb IV 08/16/25 13:59 7.7 units/kg/hr .Q24H LISETTE 8.012 mls/hr Protocol Titration 9.7 UNITS/KG/HR Diltiazem/Sodium Chloride 100 mg in 100 mls @ 10 mls/hr 08/04/25 09:33 08/04/25 09:58 Diltiazem In Ns 100 Mg IV 09/03/25 09:32 10 mg/hr .Q10H LISETTE 10 mls/hr 10 MG/HR Administration Dextrose/Sodium Chloride 1,000 mls @ 80 mls/hr 08/04/25 09:59 08/04/25 10:29 D5-1/2ns IV 08/04/25 22:28 80 mls/hr .[id number] ONE Administration Vancomycin HCl 250 mls @ 120 mls/hr 08/04/25 12:30 Vancomycin/Water 1250 Mg Ivpb IV 08/11/25 12:29 QDAY@1000 LISETTE Insulin Degludec 35 unit 08/01/25 09:00 08/04/25 09:11 Insulin Degludec 5 Unit/0.05 Ml (Per 5 Units) SC 08/31/25 08:59 35 unit QDAY LISETTE Administration Insulin Human Lispro 0 unit 08/01/25 07:30 08/04/25 11:51 Insulin Lispro (Admelog) 1 Unit/0.01 Ml Unit SC 08/31/25 07:29 1 unit ACHS LISETTE Administration Protocol Ipratropium [place]mage 0.5 mg 08/02/25 17:04 Ipratropium Rt 0.5 Mg/ 2.5 Ml Nebu INH 09/01/25 17:03 Q6HR PRN SHORTNESS OF BREATH Levalbuterol HCl 0.63 mg 08/02/25 17:04 Levalbuterol Rt 0.63 Mg/3 Ml Nebu INH 09/01/25 17:03 Q6H PRN WHEEZING Levothyroxine Sodium 70 mcg 08/02/25 09:00 08/04/25 09:18 Levothyroxine Inj 100 Mcg Vial IV 09/01/25 08:59 70 mcg QDAY LISETTE Administration Methylprednisolone Sodium Succinate 16 mg 08/02/25 09:00 08/04/25 09:18 Methylprednisolone Sod Succ 40 Mg/Ml Vial IVP 08/09/25 08:59 16 mg QDAY LISETTE Administration Pantoprazole Sodium 40 mg 08/01/25 09:00 08/04/25 09:12 Pantoprazole Inj 40 Mg Vial IVP 08/31/25 08:59 40 mg QDAY LISETTE Administration Pharmacy Consult 1 each 08/01/25 17:00 Vancomycin Pharmacy To Dose 1 Each Each IV 08/31/25 16:59 QDAY PRN SEPSIS Polyethylene Glycol 17 gm 08/01/25 09:00 08/04/25 09:05 Polyethylene Glycol 17 Gm Packet PO 08/31/25 08:59 Not Given DAILY LISETTE Pramipexole Dihydrochloride 1 mg 08/01/25 21:00 08/03/25 20:04 Pramipexole 0.25 Mg Tablet PO 08/31/25 20:59 Not Given HS LISETTE Sennosides 1 tab 08/01/25 09:00 08/04/25 09:05 Senna Tablet PO 08/31/25 08:59 Not Given QDAY LISETTE Protocol Sodium Chloride 3 ml 08/01/25 02:11 Sodium Chloride Rt Sravani 0.9% 3 Ml Nebu INH 08/31/25 02:10 PRN PRN SOLN Venlafaxine HCl 150 mg 08/01/25 09:00 08/04/25 09:05 Venlafaxine Xr 37.5 Mg Capcr PO 08/31/25 08:59 Not Given DAILY LISETTE Plan 89-year-old female with past medical history of interstitial lung disease, pulmonary fibrosis, chronic CO2 retention on 2 L home oxygen and BiPAP, HFpEF, hypothyroidism, right breast cancer status postlumpectomy, insulin-dependent type 2 diabetes, GERD, MDR UTI presented for shortness of breath, found to have hypoxemia and respiratory acidosis, admitted for acute on chronic hypoxic hypercapnic respiratory failure likely secondary aspiration pneumonia. #Acute on chronic hypoxic hypercapnic respiratory failure, likely secondary to #Aspiration pneumonia #Pulmonary arterial hypertension - Known history of chronic interstitial lung disease and pulmonary fibrosis, contributing to chronic respiratory failure, chronic CO2 retention, and the need for BiPAP and home oxygen (2L). - Current acute exacerbation appears to be triggered by aspiration, likely exacerbated by recent intensified coughing after meals. The patient had worsening respiratory distress following dinner, with increasing cough and suspected aspiration of food. - Initial lactate was elevated at 2.4 --> 2.7 --> 2.3. Given the hypoxia and respiratory failure, the lactic acidosis may be due to tissue hypoperfusion and/or poor oxygenation. - Initial ABG showed pH 7.25, pCO2 74, pO2 62, bicarb 33, represents respiratory acidosis. - CXR 08/01: extensive bilateral pneumonia, prominent vascular congestion. - Patient is currently on a prednisone taper for ILD. - Patient failed ST swallow screen. - EGD and esophageal dilation on 02/08/25 for esophageal stenosis. - ABG 08/03: pH 7.33, pCO2 64, HCO3 34. Plan: * BiPAP as needed. * Switched DuoNebs to Levalbuterol as patient is tachycardic. * Continuous pulse oximetry to closely monitor oxygen saturation. * Aspiration precautions. * Keep NPO. Continue medications in IV form. * Switched Prednisone 20mg PO QD to Methylprednisolone 16 mg IV QD as patient is NPO. Given the patient's history of interstitial lung disease, the steroid taper should proceed as planned, maintaining the current dose for 1 more week before reassessment. Dr. Jerez (video game repair technician) agrees to see patient. * Monitor for signs of worsening pneumonia or other complications. #Sepsis #Staphylococcus epidermidis bacteremia #UTI #Lactic acidosis #Leukocytosis - Etiology: Staphylococcus epidermidis bacteremia with suspected urinary tract infection as the source? - Lactate: 2.4 --> 2.7 --> 2.3. - WBC 23.2 on admission. - Blood culture: 2/2 GPC bacteremia. - UA: 1+ protein, 44 RBC, 76 WBC, amorphous crystals, budding yeast, leukocyte esterase positive. Previous culture was positive for pansensitive Klebsiella Ozaenae. - Urine culture pending. - CXR: extensive bilateral pneumonia, prominent vascular congestion. - Fluids: 30 mL/kg, 2L of LR given in ED. Plan: * Vancomycin pharmacy to dose (08/04-08/11). * Zosyn 2.25 g every 8 hours for UTI. (08/01-08/08). * Oxygen / Ventilation: BiPAP. * Renal: strict I&O, avoid nephrotoxins. * CBC/BMP daily or more frequent if unstable. * Monitor organ dysfunction resolution or progression. * Repeat blood culture pending. #New onset Atrial fibrillation with RVR - EKG on 08/02 showed irregularly irregular rhythm rate 155 with RBBB. - No history of atrial fibrillation. - CHADSVASc score 6. - HASBLEED score 3. High Risk of major bleeding. - Was given diltiazem IV 20 mg x 1 and was started on diltiazem gtt. 5 mg/h which was increased to 10 mg/h as patient continued to remain tachycardic. - Three doses of digoxin (0.25 mg x2, 0.125 mg x1) given on 08/03 for tachycardia. Plan: * Cardiology consulted - appreciate recs. * Heparin and diltiazem 10mg/hr drip. * Keep potassium greater than 4 and magnesium greater than 2 at all times. #NSTEMI - Likely secondary to demand ischemia. - Troponin of 0.051 --> 0.030. - EKG showed sinus tachycardia with a rate of 131 QTc 473, widened upright QRS in V1 may represent right bundle branch block, No acute ST segment changes in other leads Plan: * Continue to monitor for chest pain. #Insulin-dependent type 2 diabetes - Per caregiver the patient is on 35 units of Lantus every morning, sliding scale, and 8 units regular 3 times daily with meals. - Hemoglobin A1c 2 months ago was 6.4. - Glucose on admission was 241. Plan: * Insulin degludec 35 units QD. * Insulin sliding scale. * Carb consistent diet once patient passes swallow eval. #Esophageal stenosis s/p dilation - s/p EGD with dilation for dysphagia secondary to esophageal stenosis on 02/08/2025. - GI recommended checking TSH and T4 to make sure patient is on adequate supplement as hypothyroidism can cause dysphagia. Both within normal range. Plan: * Keep patient NPO. * GI consulted. EGD when patient's respiratory status improves. #Chronic normocytic anemia - Hemoglobin 11.8, MCV 101. - Likely secondary to anemia of chronic disease secondary to history of breast cancer and interstitial lung disease. - No suspicion for active bleed at this time. Plan: * No direct intervention at this time. * Monitor CBC. #Chronic diastolic CHF, HFpEF - Echo from 12/2024 showed EF 65%. Trace mitral and trace tricuspid regurgitation, No wall motion abnormalities noted. - BNP 193. -CXR (08/02/2025): extensive bilateral lung opacity, Mild enlargement cardiac contour with significant vascular congestion on physical exam 1+ edema noted bilateral hips. -Patient's underlying respiratory status and lieu of ILD flare/aspiration pneumonia. Plan: * Pending echo read. * Strict I and Os. * Fluid restriction 1500ml. #Hypernatremia #Hyperkalemia (resolved) - On admission, sodium 148 and potassium 5.2. - Likely secondary to decreased oral intake, lack of insulin, or hyperglycemia. - Patient received fluids in the ED and will start receiving insulin sliding scale. - Sodium continues to uptrend, peak at 153 on 08/04. Plan: * D5W 1L given, will continue to trend sodium. #Hyperlipidemia Plan: * Hold atorvastatin 10 mg nightly as patient is NPO. #Hypothyroidism - Home medication: Levothyroxine 100 mcg daily. Plan: * Levothyroxine 70 mcg IV QD as patient is NPO. #Chronic constipation - Per caregiver, the patient's last bowel movement was 07/30/2025. - Last bowel movement 08/03. - KUB 08/04: large amounts of stool throughout the colon. Plan: * Daily senna and MiraLAX. * Water edema ordered. #Depression Plan: * Hold home Venlafaxine 150 mg XR p.o. daily as patient is NPO. #Parkinson Plan: * Hold home pramipexole 1 mg nightly as patient is NPO. Health Maintenance Disposition: tele DVT prophylaxis: Heparin 5,000 U subQ GI prophylaxis: Pantoprazole 40 mg IV daily Diet: NPO Queen: In place Lines: Peripheral IV CODE STATUS: DNR/DNI --- Patient plan of care was discussed with the senior resident, Dr. Eller, and attending physician, Dr. Barbosa. Eugene Valente DO PGY-1 Attending Provider Attestation/Addendum I have seen and examined the patient. I was physically present for the mackenzie portions of the services provided including history, physical exam, diagnosis, treatment plans and orders. I agree with assessment and plan of care as documented by residents. Even though this this note was carefully revised there may still be minor errors in hat forming machine operator due to voice recognition software. Roosevelt Barbosa MD
--- NOTE | 2025-08-04 13:03 | ESPR_ITS ---
<Statement entered by Doron Allen MD - 08/04/25 17:59> Patient was seen and examined by me personally. I have reviewed the below documentation by the team resident Dr Freedom Stovall DO PGY-1 and agree with its findings. Ms. Coffman is a 89-year-old female with past medical history of ILD/pulmonary fibrosis/chronic hypersensitivity pneumonitis with chronic respiratory failure on 2 L home oxygen and BiPAP currently on steroid taper, pulmonary arterial hypertension, heart failure with preserved ejection fraction, EF 60-65%, chronically bedbound, recurrent MDR UTIs, hypothyroidism, right breast cancer status postlumpectomy with lymph node dissection, insulin-dependent type 2 diabetes mellitus, GERD, depression, chronic back pain and nephrolithiasis who presented to [facility] emergency department on 08/01/2025 with a chief complaint of hypoxia. Prior to admission in the afternoon patient had coughing episodes which intensified after patient ate half of her dinner, patient continued to have phlegm with increased cough, there was concern of aspiration and EMS were called. Patient's SpO2 in 30s on EMS arrival, patient placed on BiPAP in the ED and admitted to the hospital for management of acute on chronic hypoxic hypercapnic respiratory failure in setting of possible aspiration pneumonia. 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 Pulmonology notes reviewed. Patient steroid taper is being managed by resident clinic outpatient with recommendations from pulmonology remotely. Patient has had multiple admissions for hypercapnia, currently using BiPAP every night with [employer]. Patient does have history of heart failure, HFpEF with a EF 60 to 65%, never seen a clinical leader outpatient, patient not on diuretics outpatient per resident clinic note as patient has chronic hypercapnia and diuresis causes contraction alkalosis causing further respiratory decompensation. Patient was on diltiazem drip 10 mg/h, was rate controlled overnight. Currently on heparin gtt. 08/04-patient seen at bedside, patient's heart rate is controlled, will start on digoxin 0.125 mg IV daily, transition to p.o. once patient is tolerating. Patient is currently n.p.o., plan is to undergo EGD. Pulmonology consulted today. Patient is on diltiazem drip as well 10 mg/h, continue. Patient was started on IV D5W for management of hyponatremia, will benefit from free water flushes compared to IV fluids considering patient does have history of HFpEF, will continue to monitor will consider diuresis in a.m. if signs of fluid overload. Thank you for the consult and allowing to participate in the care of the patient. Cardiology will continue to follow. Case discussed with Attending Physician Dr. Steven Allen MD Internal Medicine PGY-2 Disclaimer: This note was dictated by speech recognition. Minor errors in deboning team leader may be present due to voice recognition software. Documentation for date of: 08/04/25 Subjective Subjective Interval history: Ms Adelaida Coffman is 89yF with PMH of interstitial lung disease, pulmondary fibrosis, chronic CO2 retention on 2L home oxygen and BiPAP, HFpEF, bedbound, recurrent UTIs, hypothyrodism, right breast cancer status postlumpectomy, insulin-dependent type 2 diabetes, GERD, depression, and chronic back pain, presented to the ED on 08/01/2025 due to hypoxemia. The patient started to cough following lunch the day before admission (07/31) and worsened while eating her dinner on the same day. The caregiver noted the patient was expectorating phlegm without any food particles, and suspected possible aspiration. Per EMS note, patient's oxygen level was in 30s and at 68% on 2L nasal cannula and to mid 80s after albuterol treatment. Patient was admitted for acute on chronic hypoxic hypercapnic respiratory failure and aspiration pneumonia. Cardiology was consulted for management of new onset Afib on EKG. ED course: Vitals: Temp 99.6F, AR: 128, RR:28, BP: 127/74, O2sat:95% On Oxy mask 15L Labs: WBC 23.2, Hgb:11.8, ABG pCO2:74, ABG pH:7.25, Na:148, K:5.2, HCO2: 33.1, Cr:1.2, eGFR:43, Glucose: 241, HbA1c: 6.6, Lactic acid:2.4 (increased to 18.0 in 3hrs), Ca 9.8 (decreased to 6.4 in 3hrs), Troponin:0.051, BNP: 193 CXR (08/01/2025): Extensive bilateral pneumonia, consider associated mild heart failure In ED, Patient received 125 mg IV push methylprednisolone, Zosyn, treatment with albuterol, ipratropium, a dose of vancomycin, 2.5 L of L Medical history: As stated above Surgical history: Right breast lumpectomy, Cholesectomy Allergies: Cefuroxime, Topical zinc, Iodine contrast, Sulfa, Influenza virus, Cefuroxime Medications: Vitamin C 500 mg twice a day, Aspirin 81 mg daily, Calcium vitamin D supplement, Estrogen vaginal cream, [place] 5-3 25 p.o. 3 times daily as needed for pain, Hydroxyzine 25 mg tablet every 6 hours as needed for anxiety, Levothyroxine 100 mcg daily, Metformin 500 mg daily, 35 insulin degludec every morning, 8 units 3 times daily with meals, plus sliding scale, Methenamine 1 g p.o. twice daily, Metoprolol succinate 25 mg daily, Omeprazole 40 mg daily, Pramipexole 1 mg daily, Prednisone 20 mg daily, taper currently, Rosuvastatin 5 mg nightly, Venlafaxine 150 mg XR daily Family history: Noncontributory Social history: Denies smoking cigarettes, drinking alcohol or using other illicit drugs, Lives at home, 24-hour caregiver support 08/02/2025: Labs reviewed and patient examined at the bedside. Recommend Diltiazem drip 10mg/hr and heparin drip if no contraindication to anticoagulation. Also recommend stopping metoprolol due to history of ILD and to avoid bronchospasm. ECHO is pending. Recommend IV lasix 20mg x1 after examining her kidney function and fluid status tomorrow. Upon examination, patient complains of SOB. but denies palpation, chest pain, nausea or vomiting. 08/03/2025: No Overnight events. Labs reviewed and patient examined at the bedside. This morning, patient was tachycardc (HR 120s) with low BP 109/86. Patient was given IV Digoxin 0.25mg x1 and 0.125mg x1 this morning. Patient was still tachycardic this afternoon, so another IV Digoxin 0.25mg x1 was given. Will assess her BP and HR tomorrow. Recommend increasing Ditiazem drip 10mg/hr to 15mg/hr tomorrow if patient is still tachycardic as long as BP tolerates. Patient's sodium increased from 149 to 152, likely from dehydration. No need for diuresis for now. Recommend putting NG tube and give water flushes for hypernatremia, and change heparin drip to oral eliquis and IV digoxin to PO digoxin. Denies chest pain, palpation, N/V, fevers or chills. 08/04/2025: Labs reviewed and patient examined at the bedside. Morning tele monitoring showed Afib, rate controlled. Patient will continue on Diltiazem drip 10mg/hr and IV digoxin 0.125mg qd. Pt's Na level was 153. Started on D5W 80ml/hr, now downtrending to 151. Denies chest pain, palpation, abdominal pain, N/V, fevers or chills. Exam Vital Signs Temp Pulse Resp BP Pulse Ox O2 Del Method O2 Flow Rate 96.9 F 75 31 H 140/54 H 98 BiPAP 20 08/04/25 12:00 08/04/25 12:00 08/04/25 12:00 08/04/25 12:00 08/04/25 12:00 08/04/25 12:00 08/03/25 16:00 FiO2 40 08/04/25 11:36 Narrative Exam General: AAOx3, Stressed, Frail, Elderly, on BiPAP Eye: normal conjunctiva, no scleral icterus HENT: Normocephalic, atraumatic, hearing intact to conversation at normal volume, moist oral mucosa Neck: Supple, non-tender, no JVD, no lymphadenopathy Lungs: Labored respirations, symmetric chest rise, Clear to auscultate bilaterally, Wheezing bilateral lungs Heart: Peripheral pulses intact bilaterally, Irregularly irregular Abdomen: Soft, non-tender, Distended, no palpable masses Musculoskeletal: No cyanosis or edema, No visible joint swelling Skin: Skin is warm, dry, no rashes or lesions. Neuro: Cranial nerves II-XII grossly intact. Sensations intact to light touch. Objective Labs 08/05/25 05:19 08/05/25 20:51 Labs: Laboratory Results - last 24 hr 08/03/25 08/03/25 08/04/25 15:04 22:22 05:35 WBC 13.0 H RBC 3.16 L Hgb 9.1 L Hct 31.5 L MCV 100 MCH 28.8 MCHC 28.9 L RDW Std Deviation 63.4 H Plt Count 160 Neut % (Auto) 87 H Lymph % (Auto) 4 L [place] % (Auto) 3 Eos % (Auto) 0 Baso % (Auto) 1 Neut # (Auto) 11.4 H Lymph # (Auto) 0.6 L [place] # (Auto) 0.4 Eos # (Auto) 0.0 Baso # (Auto) 0.1 Immature Gran # (Auto) 0.57 H Absolute Nucleated RBC 0.07 H Immature Gran % 4 H Nucleated RBC % 1 H PT 10.6 INR 1.0 APTT 41.9 H D 87.7 H D 70.9 H D Puncture Site ABG pH ABG pCO2 ABG pO2 ABG HCO3 ABG O2 Saturation ABG Base Excess FiO2 Sodium 153 H Potassium 4.4 Chloride 111 H Carbon Dioxide 33.8 H Anion Gap 8 BUN 29 H Creatinine 0.9 Estim Creat Clear Calc 51.5 L eGFR > 60 BUN/Creatinine Ratio 32 H Glucose 197 H Calculated Osmolality 314 H Calcium 9.6 Corrected Calcium 10.1 Phosphorus 2.4 Magnesium 2.1 Total Bilirubin 0.6 AST 12 ALT 30 Alkaline Phosphatase 56 Total Protein 5.5 L Albumin 3.4 Globulin 2.1 L Albumin/Globulin Ratio 1.6 Vancomycin Trough Digoxin 1.6 08/04/25 08/04/25 09:15 12:13 WBC RBC Hgb Hct MCV MCH MCHC RDW Std Deviation Plt Count Neut % (Auto) Lymph % (Auto) [place] % (Auto) Eos % (Auto) Baso % (Auto) Neut # (Auto) Lymph # (Auto) [place] # (Auto) Eos # (Auto) Baso # (Auto) Immature Gran # (Auto) Absolute Nucleated RBC Immature Gran % Nucleated RBC % PT INR APTT Puncture Site Left Radial ABG pH 7.33 L ABG pCO2 69 H ABG pO2 85 ABG HCO3 36 H ABG O2 Saturation 95 ABG Base Excess 8 H FiO2 40 Sodium 151 H Potassium Chloride Carbon Dioxide Anion Gap BUN Creatinine Estim Creat Clear Calc eGFR BUN/Creatinine Ratio Glucose Calculated Osmolality Calcium Corrected Calcium Phosphorus Magnesium Total Bilirubin AST ALT Alkaline Phosphatase Total Protein Albumin Globulin Albumin/Globulin Ratio Vancomycin Trough 15.9 H Digoxin ABG Interpretation ABG results: 08/01/25 08/01/25 08/02/25 02:15 09:05 12:15 ABG pH 7.25 L 7.30 L ABG pCO2 74 H* 66 H ABG pO2 62 L 84 D ABG HCO3 33 H 32 H ABG O2 Saturation 95 95 ABG Base Excess 4 H 4 H VBG pH 7.27 L VBG pCO2 63 H VBG pO2 Not Performed. VBG Base Excess 0 08/03/25 08/04/25 10:44 12:13 ABG pH 7.33 L 7.33 L ABG pCO2 64 H 69 H ABG pO2 88 85 ABG HCO3 34 H 36 H ABG O2 Saturation 95 95 ABG Base Excess 6 H 8 H VBG pH VBG pCO2 VBG pO2 VBG Base Excess Quality Measures Quality Measures VTE prophylaxis Advance care planning discussed with:: patient and other Assessment & Plan Assessment Current Active Medications: Generic Name Dose Route Start Last Admin Trade Name Freq PRN Reason Stop Dose Admin Acetaminophen 650 mg 08/01/25 05:05 Acetaminophen 325 Mg Tablet PO 08/31/25 05:04 Q6H PRN Fever >100.4 Aspirin 81 mg 08/01/25 09:00 08/04/25 09:06 Aspirin Ec 81 Mg Tabec PO 08/31/25 08:59 Not Given DAILY LISETTE Atorvastatin Calcium 10 mg 08/01/25 21:00 08/03/25 20:04 Atorvastatin Calcium 10 Mg Tablet PO 08/31/25 20:59 Not Given HS LISETTE Dextrose 25 ml 08/01/25 05:16 Dextrose 50%-Water Inj 50 Ml Syringe IV 08/31/25 05:15 Q15MIN PRN BG 50-70 responsive npo pt Dextrose 50 ml 08/01/25 05:16 Dextrose 50%-Water Inj 50 Ml Syringe IV 08/31/25 05:15 Q15MIN PRN BG <50 OR BG <70 & pt unresponsive Glucagon 1 mg 08/01/25 05:16 Glucagon Inj 1 Mg Vial IM Q15MIN PRN BG <70, and no IV access Piperacillin Sod/Tazobactam 100 mls @ 200 mls/hr 08/01/25 12:00 08/04/25 11:51 Sod 2.25 gm/ Sodium Chloride IV 08/08/25 11:59 200 mls/hr Q6HR LISETTE Administration Protocol Heparin Sodium/Dextrose 25,000 unit in 250 mls @ 10.093 mls/hr 08/02/25 14:00 08/04/25 06:35 Heparin In D5w Ivpb IV 08/16/25 13:59 7.7 units/kg/hr .Q24H LISETTE 8.012 mls/hr Protocol Titration 9.7 UNITS/KG/HR Diltiazem/Sodium Chloride 100 mg in 100 mls @ 10 mls/hr 08/04/25 09:33 08/04/25 09:58 Diltiazem In Ns 100 Mg IV 09/03/25 09:32 10 mg/hr .Q10H LISETTE 10 mls/hr 10 MG/HR Administration Dextrose/Sodium Chloride 1,000 mls @ 80 mls/hr 08/04/25 09:59 08/04/25 10:29 D5-1/2ns IV 08/04/25 22:28 80 mls/hr .[id number] ONE Administration Vancomycin HCl 250 mls @ 120 mls/hr 08/04/25 12:30 Vancomycin/Water 1250 Mg Ivpb IV 08/11/25 12:29 QDAY@1000 LISETTE Insulin Degludec 35 unit 08/01/25 09:00 08/04/25 09:11 Insulin Degludec 5 Unit/0.05 Ml (Per 5 Units) SC 08/31/25 08:59 35 unit QDAY LISETTE Administration Insulin Human Lispro 0 unit 08/01/25 07:30 08/04/25 11:51 Insulin Lispro (Admelog) 1 Unit/0.01 Ml Unit SC 08/31/25 07:29 1 unit ACHS LISETTE Administration Protocol Ipratropium [place] 0.5 mg 08/02/25 17:04 Ipratropium Rt 0.5 Mg/ 2.5 Ml Nebu INH 09/01/25 17:03 Q6HR PRN SHORTNESS OF BREATH Levalbuterol HCl 0.63 mg 08/02/25 17:04 Levalbuterol Rt 0.63 Mg/3 Ml Nebu INH 09/01/25 17:03 Q6H PRN WHEEZING Levothyroxine Sodium 70 mcg 08/02/25 09:00 08/04/25 09:18 Levothyroxine Inj 100 Mcg Vial IV 09/01/25 08:59 70 mcg QDAY LISETTE Administration Methylprednisolone Sodium Succinate 16 mg 08/02/25 09:00 08/04/25 09:18 Methylprednisolone Sod Succ 40 Mg/Ml Vial IVP 08/09/25 08:59 16 mg QDAY LISETTE Administration Pantoprazole Sodium 40 mg 08/01/25 09:00 08/04/25 09:12 Pantoprazole Inj 40 Mg Vial IVP 08/31/25 08:59 40 mg QDAY LISETTE Administration Pharmacy Consult 1 each 08/01/25 17:00 Vancomycin Pharmacy To Dose 1 Each Each IV 08/31/25 16:59 QDAY PRN SEPSIS Polyethylene Glycol 17 gm 08/01/25 09:00 08/04/25 09:05 Polyethylene Glycol 17 Gm Packet PO 08/31/25 08:59 Not Given DAILY LISETTE Pramipexole Dihydrochloride 1 mg 08/01/25 21:00 08/03/25 20:04 Pramipexole 0.25 Mg Tablet PO 08/31/25 20:59 Not Given HS LISETTE Sennosides 1 tab 08/01/25 09:00 08/04/25 09:05 Senna Tablet PO 08/31/25 08:59 Not Given QDAY LISETTE Protocol Sodium Chloride 3 ml 08/01/25 02:11 Sodium Chloride Rt Sravani 0.9% 3 Ml Nebu INH 08/31/25 02:10 PRN PRN SOLN Venlafaxine HCl 150 mg 08/01/25 09:00 08/04/25 09:05 Venlafaxine Xr 37.5 Mg Capcr PO 08/31/25 08:59 Not Given DAILY LISETTE Plan Ms Adelaida Coffman is 89yF with PMH of interstitial lung disease, pulmondary fibrosis, chronic CO2 retention on 2L home oxygen and BiPAP, HFpEF, bedbound, recurrent UTIs, hypothyrodism, right breast cancer status postlumpectomy, insulin-dependent type 2 diabetes, GERD, depression, and chronic back pain, presented to the ED on 08/01/2025 due to hypoxemia. Patient was admitted for acute on chronic hypoxic hypercapnic respiratory failure and aspiration pneumonia. Cardiology was consulted for management of new onset Afib on EKG. #New Onset A Fib with RVR -Patient has SOB. Denies palpation or chest pain. -EKG showed irregularly irregular rhythm rate 155 with RBBB. MAT ruled out. No history of atrial fibrillation -CHADSVASc score 6 HASBLEED score 3. High Risk of major bleeding -Was given diltiazem IV 20 mg x 1 and was started on diltiazem gtt. 5 mg/h which was increased to 10 mg/h as patient continued to remain tachycardic -On morning of 08/03, patient was tachycardc (HR 120s) with low BP 109/86. Patient was given IV Digoxin 0.25mg x1 and 0.125mg x1 this morning. Patient was still tachycardic this afternoon, so another IV Digoxin 0.25mg x1 was given. Plan: -Continue diltiazem drip 10mg/hr. If patient gets tachycardic, recommend to increase Ditiazem drip 10mg/hr to 15mg/hr if BP tolerates -Continue heparin drip to oral eliquis -On IV digoxin 0.125mg qd -Recommend Holter monitor outpatient to assess afib burden. -Keep potassium greater than 4 and magnesium greater than 2 at all times #Chronic diastolic CHF, HFpEF EF 65% (12/29/2024) -Past ECHO (12/29/2024): Normal left ventricular size and function. Approximate ejection fraction is 65%. Trace mitral and trace tricuspid regurgitation, No wall motion abnormalities noted. -CXR (08/02/2025): extensive bilateral lung opacity, Mild enlargement cardiac contour with significant vascular congestion on physical exam 1+ edema noted bilateral hips. -Patient's underlying respiratory status and lieu of ILD flare/aspiration pneumonia -ECHO (08/02/2025) showed: 1. Left ventricle size is normal and systolic function is normal. Estimated ejection fraction is 60-65%. There is indeterminate diastolic function due to afib. There is mild concentric hypertrophy noted. 2. Right ventricle is not well visualized. RV function appears normal. 3. There is mild aortic valve sclerosis with no stenosis. 4. Mild thickening of the mitral valve leaflets. Mild MR, mild MAC. Mild TR. 5. Normal IVC with estimated RA pressure 3 mmHg. 6. Prior study from 12/29/2024. Plan: -Hold diuresis now as patient does not have signs of fluid overload -Strict I and Os, -Fluid restriction 1500ml -Mg>2, K>4 -Management of respiratory disease per primary team #Pulmonary Hypertension, Group III #Hx of Interstitial Lung Disease -PMH of interstitial Lung Disease -Chest CT (08/01/2025): Pulmonary artery hypertension, Severe pneumonia and/or edema throughout the lungs Plan: -BiPAP prn -Duoneb prn -Steroid taper per pulmonology #HTN -In ED, 155/80 -Continue diltiazem drip for now. #Hypernatremia #Acute on chronic hypoxic hypercapnic respiratory failure, likely secondary to #Aspiration pneumonia #Sepsis #GPC bacteremia #Lactic acidosis #Leukocytosis #UTI #Insulin-dependent type 2 diabetes #Esophageal stenosis s/p dilation #Chronic normocytic anemia #Hyperlipidemia #Hypothyroidism #Chronic constipation #Depression #Parkinson -Management per Primary Hospitalist team Thank you for allowing us to participate in the care of Ms Adelaida Coffman. Cardiology will continue to follow Assessment and plan discussed with my attending physician Dr. Spencer and Dr. Allen (PGY-2) Dr. Stovall (PGY-1) - Internal medicine resident Attending Provider Attestation/Addendum I have personally seen and examined the patient separately on the above date of service and discussed the plan of care with the resident. I reviewed the resident Dr. Freedom Stovall / Doron Allen consultation progress note and agree with the resident findings and plan in the note above and have also edited the documentation to reflect my findings and plan. Steven Spencer M.D. Interventional Cardiology
[2025-08-04] MEDS: VANCOMYCIN/WATER 1250 MG IVPB 250 ML 120 MG IV (13:18)
[2025-08-04 13:36] LABS: Sodium 151 mMol/L (136-145)
[2025-08-04 13:58] LABS: Partial Thromboplastin Time 67.2 Seconds (22.0-36.0)
[2025-08-04] MEDS: DIGOXIN INJ 0.25 MG/ML AMP 2 ML 0.125 MG IVP (14:17)
--- NOTE | 2025-08-04 18:27 | PD.IMPROG ---
Documentation for date of: 08/04/25 Subjective Subjective Interval history: Patient remains on BiPAP Exam Vital Signs Temp Pulse Resp BP Pulse Ox O2 Del Method O2 Flow Rate 96.9 F 73 26 H 161/63 H 96 BiPAP 20 08/04/25 12:00 08/04/25 16:00 08/04/25 14:59 08/04/25 14:17 08/04/25 14:59 08/04/25 12:00 08/03/25 16:00 FiO2 40 08/04/25 14:59 Objective Labs 08/04/25 05:35 08/04/25 13:20 Labs: Laboratory Results - last 24 hr 08/03/25 08/04/25 08/04/25 22:22 05:35 09:15 WBC 13.0 H RBC 3.16 L Hgb 9.1 L Hct 31.5 L MCV 100 MCH 28.8 MCHC 28.9 L RDW Std Deviation 63.4 H Plt Count 160 Neut % (Auto) 87 H Lymph % (Auto) 4 L [place] % (Auto) 3 Eos % (Auto) 0 Baso % (Auto) 1 Neut # (Auto) 11.4 H Lymph # (Auto) 0.6 L [place] # (Auto) 0.4 Eos # (Auto) 0.0 Baso # (Auto) 0.1 Immature Gran # (Auto) 0.57 H Absolute Nucleated RBC 0.07 H Immature Gran % 4 H Nucleated RBC % 1 H PT 10.6 INR 1.0 APTT 87.7 H D 70.9 H D Puncture Site ABG pH ABG pCO2 ABG pO2 ABG HCO3 ABG O2 Saturation ABG Base Excess FiO2 Sodium 153 H 151 H Potassium 4.4 Chloride 111 H Carbon Dioxide 33.8 H Anion Gap 8 BUN 29 H Creatinine 0.9 Estim Creat Clear Calc 51.5 L eGFR > 60 BUN/Creatinine Ratio 32 H Glucose 197 H Calculated Osmolality 314 H Calcium 9.6 Corrected Calcium 10.1 Phosphorus 2.4 Magnesium 2.1 Total Bilirubin 0.6 AST 12 ALT 30 Alkaline Phosphatase 56 Total Protein 5.5 L Albumin 3.4 Globulin 2.1 L Albumin/Globulin Ratio 1.6 Vancomycin Trough 15.9 H Digoxin 1.6 08/04/25 08/04/25 12:13 13:20 WBC RBC Hgb Hct MCV MCH MCHC RDW Std Deviation Plt Count Neut % (Auto) Lymph % (Auto) [place] % (Auto) Eos % (Auto) Baso % (Auto) Neut # (Auto) Lymph # (Auto) [place] # (Auto) Eos # (Auto) Baso # (Auto) Immature Gran # (Auto) Absolute Nucleated RBC Immature Gran % Nucleated RBC % PT INR APTT 67.2 H Puncture Site Left Radial ABG pH 7.33 L ABG pCO2 69 H ABG pO2 85 ABG HCO3 36 H ABG O2 Saturation 95 ABG Base Excess 8 H FiO2 40 Sodium 151 H Potassium Chloride Carbon Dioxide Anion Gap BUN Creatinine Estim Creat Clear Calc eGFR BUN/Creatinine Ratio Glucose Calculated Osmolality Calcium Corrected Calcium Phosphorus Magnesium Total Bilirubin AST ALT Alkaline Phosphatase Total Protein Albumin Globulin Albumin/Globulin Ratio Vancomycin Trough Digoxin Impressions Impression: Acute hypoxic respiratory failure patient on BiPAP Progressive dysphagia Weight still the patient's respiratory status improves before any invasive GI workup can be scheduled ABG Interpretation ABG results: 08/01/25 08/01/25 08/02/25 02:15 09:05 12:15 ABG pH 7.25 L 7.30 L ABG pCO2 74 H* 66 H ABG pO2 62 L 84 D ABG HCO3 33 H 32 H ABG O2 Saturation 95 95 ABG Base Excess 4 H 4 H VBG pH 7.27 L VBG pCO2 63 H VBG pO2 Not Performed. VBG Base Excess 0 08/03/25 08/04/25 10:44 12:13 ABG pH 7.33 L 7.33 L ABG pCO2 64 H 69 H ABG pO2 88 85 ABG HCO3 34 H 36 H ABG O2 Saturation 95 95 ABG Base Excess 6 H 8 H VBG pH VBG pCO2 VBG pO2 VBG Base Excess Assessment & Plan A&P Narrative # Progressive dysphagia Plan consent obtained from the patient's daughter who is also one of the authorized person for fiberoptic esophagogastroduodenoscopy to be done under MAC with possible therapeutic intervention However I have told I will wait till respiratory status improves and the procedure be done under MAC patient daughter agrees I will wait till respiratory status improves Other medical problems include acute on chronic hypoxic respiratory failure Diabetes mellitus type 2 aspiration pneumonia interstitial lung disease with pulmonary fibrosis on home oxygen hypothyroidism that is self can cause dysphagia will get free T4 and TSH to make sure she is on adequate supplement Right breast carcinoma status postlumpectomy Thank you very much for the opportunity to participate in care of this patient Time Spent With Patient Time: Total time spent is greater than 50% in coordination of care (as documented) at patient's floor/unit and/or counseling patient:
[2025-08-04 18:51] LABS: Sodium 151 mMol/L (136-145)
[2025-08-04] MEDS: Heparin/D5w 25K 250 ML Ivpb 25,000 UNIT/250 ML BAG 8.012 UNIT IV (20:11)
[2025-08-04 22:41] LABS: Sodium 149 mMol/L (136-145)
[2025-08-05] VITALS (14 sets, daily range): BP systolic 129–163; BP diastolic 57–77; PULSE 70–87; RESP 8–31; TEMP 35.9–36.5; O2SAT 95–98; BMI 36.1
[2025-08-05 03:00] LABS: Sodium 151 mMol/L (136-145)
[2025-08-05] MEDS: PIPERACILLIN/TAZO 2.25GM INJ 2.25 GM in SODIUM CHLORIDE 0.9% (POP) 100 ML IV ×4 (05:21→23:17)
[2025-08-05 06:15] LABS: Basophils # (Auto) 0.0 Thou/mm3 (0.0-0.2); Basophils % (Auto) 0 % (0-2.5); Eosinophils # (Auto) 0.0 Thou/mm3 (0.0-0.5); Eosinophils % (Auto) 0 % (0-10); Hematocrit 32.0 % (36.0-46.0); Hemoglobin 9.2 g/dL (12.0-16.0); Immature Granulocytes Auto 0.84 Thou/mm3 (0.00-0.00); Lymphocytes # (Auto) 0.5 Thou/mm3 (1.0-4.8); Lymphocytes % (Auto) 4 % (10-50); Mean Corpuscular HGB Conc 28.8 g/dl (31.0-37.0); Mean Corpuscular Hemoglobin 28.9 pg (25.0-35.0); Mean Corpuscular Volume 101 fL (80-100); Monocytes # (Auto) 0.8 Thou/mm3 (0.0-0.8); Monocytes % (Auto) 6 % (0-12); Neutrophils # (Auto) 12.5 Thou/mm3 (1.8-7.7); Neutrophils % (Auto) 85 % (37-80); Nucleated Red Blood Cell # 0.06 Thou/mm3 (0.00-0.00); Nucleated Red Blood Cell % 0 /100 WBC (0); Platelet Count 164 Thou/mm3 (140-440); RDW Standard Deviation 61.6 fL (36.4-46.3); Red Blood Count 3.18 Miln/mm3 (4.00-5.20); White Blood Count 14.7 Thou/mm3 (3.6-11.0)
[2025-08-05 06:36] LABS: Alanine Aminotransferase 33 U/L (10-49); Albumin, Serum 3.2 gm/dL (3.4-4.8); Albumin/Globulin Ratio 1.5 (1.2-2.2); Alkaline Phosphatase 59 U/L (46-116); Anion Gap 7 (7-16); Aspartate Amino Transferase 14 U/L (0-34); BUN/Creatinine Ratio 23 Ratio (12-20); Bilirubin,Total 0.4 mg/dL (0.3-1.2); Blood Urea Nitrogen 21 mg/dL (9-23); Calcium 9.8 mg/dL (8.3-10.6); Calcium (Corrected) 10.4 mg/dL (8.5-10.1); Carbon Dioxide 35.4 mMol/L (20.0-31.0); Chloride 109 mMol/L (98-107); Creatinine (Component) 0.9 mg/dL (0.6-1.3); Estimated Creatinine Clearance 51.5 mL/min (>60); Globulin 2.2 gm/dL (2.3-3.5); Glucose 178 mg/dL (74-106); Magnesium 2.2 mg/dL (1.6-2.6); Osmolality,Calculated 306 (275-295); Phosphorous 2.2 mg/dL (2.4-5.1); Potassium 4.2 mMol/L (3.4-5.1); Sodium 151 mMol/L (136-145); Total Protein 5.4 gm/dL (5.7-8.2); eGFR > 60 See Note
[2025-08-05 06:49] LABS: Partial Thromboplastin Time 56.7 Seconds (22.0-36.0)
[2025-08-05] MEDS: INSULIN DEGLUDEC 5 UNIT/0.05 ML (PER 5 UNITS) 35 UNIT SC (09:03)
[2025-08-05] MEDS: DIGOXIN INJ 0.25 MG/ML AMP 2 ML 0.125 MG IVP (09:05)
[2025-08-05] MEDS: POT PHOS 15 mMol in NS 250 ML 15 MMOL/250 ML BAG 62.5 MMOL IV (09:06)
[2025-08-05] MEDS: MICAFUNGIN SODIUM IV (09:06)
[2025-08-05] MEDS: SODIUM CHLORIDE 0.9% IV (09:06)
--- NOTE | 2025-08-05 09:36 | XR_ITS ---
EXAMINATION: AP chest single view TECHNIQUE: AP portable semiupright chest single view Date and time: August 05, 2025, 0949 hours, comparison August 02, 2025 INDICATIONS: Post orogastric tube placement. FINDINGS: Bilateral lung opacity consistent with pneumonia Probable associated mild heart failure with cardiomegaly and vascular congestion Right internal jugular line SVC satisfactory position Orogastric tube in the stomach satisfactory position Layered moderate right pleural fluid IMPRESSION: Significant bilateral pneumonia Mild associated heart failure
--- NOTE | 2025-08-05 09:41 | ESPR_ITS ---
<Statement entered by Jeffry Eller MD - 08/05/25 18:05> In summary: 89-year-old female with extensive PMHx including chronic respiratory failure secondary to interstitial lung disease and pulmonary fibrosis (BiPAP dependent 2/2 chronic CO2 retention), currently on prolonged STEROID taper since last admission for acute hypoxic respiratory failure, HFpEF, hypothyroidism, right breast cancer s/p neurectomy, IDDM presented with hypoxemia respiratory acidosis in settings of aspiration pneumonia with elevated lactate and findings of bilateral pneumonia on CXR. She has Pseudomonas UTI for which she is on ZOSYN. 1/2 blood Cx grew Staph epidermidis (likely contaminant) and 1/2 blood cx grew yeast (unlikely, labs and current status do not reflect fungusemia). ID evaluated and recommended continue ZOSYN for now vs. LEVOQUIN. HR appears stable and cardiology is managing meds including DILTIAZEM, DIGOXIN and HEPARIN. She remain NPO and NGT was inserted for FWF for hypernatremia and meds. I spoke with GI and our only options is esophageal dilation vs PEG tube, both of which requires intubation and sedation. Pulmonology seem against this given her chronic lung disease and chronic BIPAP-dependency, unlikley will be safe extubation. We will discuss with Jg (nephmary) regarding goals of care. I?ve reviewed the note and agree with this assessment and plan, with the exceptions outlined above. I personally went over the labs, imaging, home medications, and prior records, and examined the patient. The case was also reviewed with the attending physician. Please note: this document was transcribed using voice recognition technology; minor inaccuracies may be present. Jeffry Eller DO PGY II Documentation for date of: 08/05/25 Subjective Subjective Interval history: No acute events overnight. A repeat blood culture grew 1/2 yeast, and the patient was given one dose of Micafungin. Infectious Disease was consulted. The patient remains hypernatremic following D5W administration yesterday. An NG tube will be placed to initiate free water flushes, with a free water deficit of 1.9L to reach a sodium goal of 145. Water flushes will be administered at 250cc every four hours. Sodium levels will continue to be monitored every 6 hours. Phosphate has been repleted. The patient remains on BiPAP, and Dr. Jerez recommends continuing steroids for lung support. Exam Vital Signs Temp Pulse Resp BP Pulse Ox O2 Del Method O2 Flow Rate 96.7 F L 72 20 129/59 L 97 BiPAP 20 08/05/25 07:34 08/05/25 09:05 08/05/25 07:34 08/05/25 09:05 08/05/25 07:34 08/05/25 07:34 08/05/25 07:34 FiO2 40 08/05/25 07:34 Narrative Exam Physical Exam General: Chronically ill-appearing woman on BiPAP, obese habitus. HEENT: Normocephalic, atraumatic. Heart: Regular rate and rhythm, normal S1 and S2, no murmurs. Lungs: Diffuse crackles bilaterally. Abdomen: Obese, firm, distended, tender. No guarding or rebound tenderness. Neurologic: Alert and oriented x3, no gross neurological deficit, and patient able to move all 4 extremities. Extremities: No edema, clubbing or cyanosis. No joint deformity. Skin: Warm and dry without rashes. : Queen in place, draining yellow urine. Objective Labs 08/06/25 05:05 08/06/25 05:05 Labs: Laboratory Results - last 24 hr 08/04/25 08/04/25 08/04/25 09:15 12:13 13:20 WBC RBC Hgb Hct MCV MCH MCHC RDW Std Deviation Plt Count Neut % (Auto) Lymph % (Auto) Creek % (Auto) Eos % (Auto) Baso % (Auto) Neut # (Auto) Lymph # (Auto) Creek # (Auto) Eos # (Auto) Baso # (Auto) Immature Gran # (Auto) Absolute Nucleated RBC Immature Gran % Nucleated RBC % APTT 67.2 H Puncture Site Left Radial ABG pH 7.33 L ABG pCO2 69 H ABG pO2 85 ABG HCO3 36 H ABG O2 Saturation 95 ABG Base Excess 8 H FiO2 40 Sodium 151 H 151 H Potassium Chloride Carbon Dioxide Anion Gap BUN Creatinine Estim Creat Clear Calc eGFR BUN/Creatinine Ratio Glucose Calculated Osmolality Calcium Corrected Calcium Phosphorus Magnesium Total Bilirubin AST ALT Alkaline Phosphatase Total Protein Albumin Globulin Albumin/Globulin Ratio Vancomycin Trough 15.9 H 08/04/25 08/04/25 08/05/25 18:13 22:20 02:17 WBC RBC Hgb Hct MCV MCH MCHC RDW Std Deviation Plt Count Neut % (Auto) Lymph % (Auto) Creek % (Auto) Eos % (Auto) Baso % (Auto) Neut # (Auto) Lymph # (Auto) Creek # (Auto) Eos # (Auto) Baso # (Auto) Immature Gran # (Auto) Absolute Nucleated RBC Immature Gran % Nucleated RBC % APTT Puncture Site ABG pH ABG pCO2 ABG pO2 ABG HCO3 ABG O2 Saturation ABG Base Excess FiO2 Sodium 151 H 149 H 151 H Potassium Chloride Carbon Dioxide Anion Gap BUN Creatinine Estim Creat Clear Calc eGFR BUN/Creatinine Ratio Glucose Calculated Osmolality Calcium Corrected Calcium Phosphorus Magnesium Total Bilirubin AST ALT Alkaline Phosphatase Total Protein Albumin Globulin Albumin/Globulin Ratio Vancomycin Trough 08/05/25 05:19 WBC 14.7 H RBC 3.18 L Hgb 9.2 L Hct 32.0 L MCV 101 H MCH 28.9 MCHC 28.8 L RDW Std Deviation 61.6 H Plt Count 164 Neut % (Auto) 85 H Lymph % (Auto) 4 L Creek % (Auto) 6 Eos % (Auto) 0 Baso % (Auto) 0 Neut # (Auto) 12.5 H Lymph # (Auto) 0.5 L Creek # (Auto) 0.8 Eos # (Auto) 0.0 Baso # (Auto) 0.0 Immature Gran # (Auto) 0.84 H Absolute Nucleated RBC 0.06 H Immature Gran % 6 H Nucleated RBC % 0 APTT 56.7 H D Puncture Site ABG pH ABG pCO2 ABG pO2 ABG HCO3 ABG O2 Saturation ABG Base Excess FiO2 Sodium 151 H Potassium 4.2 Chloride 109 H Carbon Dioxide 35.4 H Anion Gap 7 BUN 21 Creatinine 0.9 Estim Creat Clear Calc 51.5 L eGFR > 60 BUN/Creatinine Ratio 23 H Glucose 178 H Calculated Osmolality 306 H Calcium 9.8 Corrected Calcium 10.4 H Phosphorus 2.2 L Magnesium 2.2 Total Bilirubin 0.4 AST 14 ALT 33 Alkaline Phosphatase 59 Total Protein 5.4 L Albumin 3.2 L Globulin 2.2 L Albumin/Globulin Ratio 1.5 Vancomycin Trough ABG Interpretation ABG results: 08/01/25 08/01/25 08/02/25 02:15 09:05 12:15 ABG pH 7.25 L 7.30 L ABG pCO2 74 H* 66 H ABG pO2 62 L 84 D ABG HCO3 33 H 32 H ABG O2 Saturation 95 95 ABG Base Excess 4 H 4 H VBG pH 7.27 L VBG pCO2 63 H VBG pO2 Not Performed. VBG Base Excess 0 08/03/25 08/04/25 10:44 12:13 ABG pH 7.33 L 7.33 L ABG pCO2 64 H 69 H ABG pO2 88 85 ABG HCO3 34 H 36 H ABG O2 Saturation 95 95 ABG Base Excess 6 H 8 H VBG pH VBG pCO2 VBG pO2 VBG Base Excess Quality Measures Quality Measures VTE prophylaxis Advance care planning discussed with:: patient and sibling Assessment & Plan Assessment Current Active Medications: Generic Name Dose Route Start Last Admin Trade Name Freq PRN Reason Stop Dose Admin Acetaminophen 650 mg 08/01/25 05:05 Acetaminophen 325 Mg Tablet PO 08/31/25 05:04 Q6H PRN Fever >100.4 Aspirin 81 mg 08/01/25 09:00 08/04/25 09:06 Aspirin Ec 81 Mg Tabec PO 08/31/25 08:59 Not Given DAILY LISETTE Atorvastatin Calcium 10 mg 08/01/25 21:00 08/04/25 20:05 Atorvastatin Calcium 10 Mg Tablet PO 08/31/25 20:59 Not Given HS LISETTE Dextrose 25 ml 08/01/25 05:16 Dextrose 50%-Water Inj 50 Ml Syringe IV 08/31/25 05:15 Q15MIN PRN BG 50-70 responsive npo pt Dextrose 50 ml 08/01/25 05:16 Dextrose 50%-Water Inj 50 Ml Syringe IV 08/31/25 05:15 Q15MIN PRN BG <50 OR BG <70 & pt unresponsive Digoxin 0.125 mg 08/04/25 13:45 08/05/25 09:05 Digoxin Inj 0.25 Mg/Ml Amp 2 Ml IVP 09/03/25 13:44 0.125 mg QDAY LISETTE Administration Glucagon 1 mg 08/01/25 05:16 Glucagon Inj 1 Mg Vial IM Q15MIN PRN BG <70, and no IV access Piperacillin Sod/Tazobactam 100 mls @ 200 mls/hr 08/01/25 12:00 08/05/25 05:21 Sod 2.25 gm/ Sodium Chloride IV 08/08/25 11:59 200 mls/hr Q6HR LISETTE Administration Protocol Heparin Sodium/Dextrose 25,000 unit in 250 mls @ 10.093 mls/hr 08/02/25 14:00 08/05/25 07:00 Heparin In D5w Ivpb IV 08/16/25 13:59 7.7 units/kg/hr .Q24H LISETTE 8.012 mls/hr Protocol Titration 9.7 UNITS/KG/HR Diltiazem/Sodium Chloride 100 mg in 100 mls @ 10 mls/hr 08/04/25 09:33 08/05/25 05:16 Diltiazem In Ns 100 Mg IV 09/03/25 09:32 10 mg/hr .Q10H LISETTE 10 mls/hr 10 MG/HR Administration Vancomycin HCl 250 mls @ 120 mls/hr 08/04/25 12:30 08/04/25 13:18 Vancomycin/Water 1250 Mg Ivpb IV 08/11/25 12:29 120 mls/hr QDAY@1000 LISETTE Administration Micafungin Sodium 50 mg/ 100 mls @ 100 mls/hr 08/05/25 09:00 08/05/25 09:06 Sodium Chloride IV 08/05/25 09:59 100 mls/hr X1 ONE Administration Potassium Phosphate 15 mmol in 250 mls @ 62.5 mls/hr 08/05/25 08:19 08/05/25 09:06 Pot Phos 15 Mmol In Ns 250 Ml IV 08/05/25 12:18 62.5 mls/hr X1 ONE Administration Micafungin Sodium 50 mg/ 100 mls @ 100 mls/hr 08/06/25 09:00 Sodium Chloride IV 08/19/25 08:59 QDAY [facility] Insulin Degludec 35 unit 08/01/25 09:00 08/05/25 09:03 Insulin Degludec 5 Unit/0.05 Ml (Per 5 Units) SC 08/31/25 08:59 35 unit QDAY [facility] Administration Insulin Human Lispro 0 unit 08/01/25 07:30 08/05/25 07:56 Insulin Lispro (Admelog) 1 Unit/0.01 Ml Unit SC 08/31/25 07:29 [facility] Protocol Ipratropium [place] 0.5 mg 08/02/25 17:04 Ipratropium Rt 0.5 Mg/ 2.5 Ml Nebu INH 09/01/25 17:03 Q6HR PRN SHORTNESS OF BREATH Levalbuterol HCl 0.63 mg 08/02/25 17:04 Levalbuterol Rt 0.63 Mg/3 Ml Nebu INH 09/01/25 17:03 Q6H PRN WHEEZING Levothyroxine Sodium 70 mcg 08/02/25 09:00 08/05/25 09:04 Levothyroxine Inj 100 Mcg Vial IV 09/01/25 08:59 70 mcg QDAY [place] Administration Methylprednisolone Sodium Succinate 16 mg 08/02/25 09:00 08/05/25 09:04 Methylprednisolone Sod Succ 40 Mg/Ml Vial IVP 08/09/25 08:59 16 mg QDAY [facility] Administration Pantoprazole Sodium 40 mg 08/01/25 09:00 08/05/25 09:05 Pantoprazole Inj 40 Mg Vial IVP 08/31/25 08:59 40 mg QDAY [place] Administration Pharmacy Consult 1 each 08/01/25 17:00 Vancomycin Pharmacy To Dose 1 Each Each IV 08/31/25 16:59 QDAY PRN SEPSIS Polyethylene Glycol 17 gm 08/01/25 09:00 08/04/25 09:05 Polyethylene Glycol 17 Gm Packet PO 08/31/25 08:59 Not Given DAILY LISETTE Pramipexole Dihydrochloride 1 mg 08/01/25 21:00 08/04/25 20:05 Pramipexole 0.25 Mg Tablet PO 08/31/25 20:59 Not Given HS LISETTE Sennosides 1 tab 08/01/25 09:00 08/04/25 09:05 Senna Tablet PO 08/31/25 08:59 Not Given QDAY [facility] Protocol Sodium Chloride 3 ml 08/01/25 02:11 Sodium Chloride Rt Sravani 0.9% 3 Ml Nebu INH 08/31/25 02:10 PRN PRN SOLN Venlafaxine HCl 150 mg 08/01/25 09:00 08/04/25 09:05 Venlafaxine Xr 37.5 Mg Capcr PO 08/31/25 08:59 Not Given DAILY LISETTE Plan 89-year-old female with past medical history of interstitial lung disease, pulmonary fibrosis, chronic CO2 retention on 2 L home oxygen and BiPAP, HFpEF, hypothyroidism, right breast cancer status postlumpectomy, insulin-dependent type 2 diabetes, GERD, MDR UTI presented for shortness of breath, found to have hypoxemia and respiratory acidosis, admitted for acute on chronic hypoxic hypercapnic respiratory failure likely secondary aspiration pneumonia. #Acute on chronic hypoxic hypercapnic respiratory failure, likely secondary to #Aspiration pneumonia #Pulmonary arterial hypertension #Interstitial lung disease #Pulmonary fibrosis - Known history of chronic interstitial lung disease and pulmonary fibrosis, contributing to chronic respiratory failure, chronic CO2 retention, and the need for BiPAP and home oxygen (2L). - Current acute exacerbation appears to be triggered by aspiration, likely exacerbated by recent intensified coughing after meals. The patient had worsening respiratory distress following dinner, with increasing cough and suspected aspiration of food. - Initial lactate was elevated at 2.4 --> 2.7 --> 2.3. Given the hypoxia and respiratory failure, the lactic acidosis may be due to tissue hypoperfusion and/or poor oxygenation. - Initial ABG showed pH 7.25, pCO2 74, pO2 62, bicarb 33, represents respiratory acidosis. - CXR 08/01: extensive bilateral pneumonia, prominent vascular congestion. - Patient is currently on a prednisone taper for ILD. - Patient failed ST swallow screen. - EGD and esophageal dilation on 02/08/25 for esophageal stenosis. - ABG 08/03: pH 7.33, pCO2 64, HCO3 34. Plan: * BiPAP as needed. * Switched DuoNebs to Levalbuterol as patient is tachycardic. * Continuous pulse oximetry to closely monitor oxygen saturation. * Aspiration precautions. * Switched Prednisone 20mg PO QD to Methylprednisolone 16 mg IV QD as patient is NPO. Given the patient's history of interstitial lung disease, the steroid taper should proceed as planned, maintaining the current dose for 1 more week before reassessment. Dr. Jerez (humanities department chair) agrees to see patient. * Monitor for signs of worsening pneumonia or other complications. #Sepsis #Staphylococcus epidermidis bacteremia #Pseudomonas aeruginosa UTI #Lactic acidosis #Leukocytosis - Etiology: Staphylococcus epidermidis bacteremia with suspected urinary tract infection as the source? - Lactate: 2.4 --> 2.7 --> 2.3. - WBC 23.2 on admission. - Blood culture 08/01: 2/2 GPC bacteremia. Staphylococcus epidermidis. - UA: 1+ protein, 44 RBC, 76 WBC, amorphous crystals, budding yeast, leukocyte esterase positive. Previous culture was positive for pansensitive Klebsiella Ozaenae. - Urine culture 08/01: Pseudomonas aeruginosa. Sensitive to Zosyn. - CXR: extensive bilateral pneumonia, prominent vascular congestion. - Fluids: 30 mL/kg, 2L of LR given in ED. - Blood culture 08/03: Yeast. Received one dose of Micafungin 50 mg. Plan: * Vancomycin pharmacy to dose (08/04-08/11) for GPC bacteremia. * Zosyn 2.25 g every 8 hours for UTI (08/01-08/08). * Oxygen / Ventilation: BiPAP. * Renal: strict I&O, avoid nephrotoxins. * CBC/BMP daily or more frequent if unstable. * Monitor organ dysfunction resolution or progression. * Repeat blood culture pending. #New onset Atrial fibrillation with RVR - EKG on 08/02 showed irregularly irregular rhythm rate 155 with RBBB. - No history of atrial fibrillation. - CHADSVASc score 6. - HASBLEED score 3. High Risk of major bleeding. - Was given diltiazem IV 20 mg x 1 and was started on diltiazem gtt. 5 mg/h which was increased to 10 mg/h as patient continued to remain tachycardic. - Three doses of digoxin (0.25 mg x2, 0.125 mg x1) given on 08/03 for tachycardia. Plan: * Cardiology consulted - appreciate recs. * Heparin drip. * Diltiazem 10mg/hr drip. * IV digoxin 0.125 QD. * Keep potassium greater than 4 and magnesium greater than 2 at all times. #Hypernatremia #Hyperkalemia (resolved) - On admission, sodium 148 and potassium 5.2. - Likely secondary to decreased oral intake, lack of insulin, or hyperglycemia. - Patient received fluids in the ED and will start receiving insulin sliding scale. - Sodium continues to uptrend, peak at 153 on 08/04. - D5W given 08/04, sodium 153 --> 151. Plan: * NG tube placed. * Start free water flushes at 250 cc per four hours for free water deficit of 1.9L. * Trend sodium levels Q6H. #NSTEMI - Likely secondary to demand ischemia. - Troponin of 0.051 --> 0.030. - EKG showed sinus tachycardia with a rate of 131 QTc 473, widened upright QRS in V1 may represent right bundle branch block, No acute ST segment changes in other leads Plan: * Continue to monitor for chest pain. #Insulin-dependent type 2 diabetes - Per caregiver the patient is on 35 units of Lantus every morning, sliding scale, and 8 units regular 3 times daily with meals. - Hemoglobin A1c 2 months ago was 6.4. - Glucose on admission was 241. Plan: * Insulin degludec 35 units QD. * Insulin sliding scale. * Carb consistent diet once patient passes swallow eval. #Esophageal stenosis s/p dilation - s/p EGD with dilation for dysphagia secondary to esophageal stenosis on 02/08/2025. - GI recommended checking TSH and T4 to make sure patient is on adequate supplement as hypothyroidism can cause dysphagia. Both within normal range. Plan: * GI consulted. EGD when patient's respiratory status improves. * NG tube with free water flushes. #Chronic normocytic anemia - Hemoglobin 11.8, MCV 101. - Likely secondary to anemia of chronic disease secondary to history of breast cancer and interstitial lung disease. - No suspicion for active bleed at this time. Plan: * No direct intervention at this time. * Monitor CBC. #Chronic diastolic CHF, HFpEF - Echo from 12/2024 showed EF 65%. Trace mitral and trace tricuspid regurgitation, No wall motion abnormalities noted. - BNP 193. - CXR (08/02/2025): extensive bilateral lung opacity, Mild enlargement cardiac contour with significant vascular congestion on physical exam 1+ edema noted bilateral hips. - Patient's underlying respiratory status and lieu of ILD flare/aspiration pneumonia. - Echo 08/02/25: ejection fraction is 60-65%. Plan: * Strict I and Os. * Fluid restriction 1500ml. * Patient is not on diuretics outpatient because of chronic hypercapnia and diuresis can cause contraction alkalosis causing further respiratory decompensation. #Hyperlipidemia Plan: * Hold atorvastatin 10 mg nightly as patient is NPO. #Hypothyroidism - Home medication: Levothyroxine 100 mcg daily. Plan: * Levothyroxine 70 mcg IV QD as patient is NPO. #Chronic constipation - Per caregiver, the patient's last bowel movement was 07/30/2025. - Last bowel movement 08/03. - KUB 08/04: large amounts of stool throughout the colon. Plan: * Daily senna and MiraLAX. * Water edema ordered. #Depression Plan: * Hold home Venlafaxine 150 mg XR p.o. daily as patient is NPO. #Parkinson Plan: * Hold home pramipexole 1 mg nightly as patient is NPO. Health Maintenance Disposition: tele DVT prophylaxis: Heparin 5,000 U subQ GI prophylaxis: Pantoprazole 40 mg IV daily Diet: NPO Queen: In place Lines: Peripheral IV CODE STATUS: DNR/DNI --- Patient plan of care was discussed with the senior resident, Dr. Eller, and attending physician, Dr. Gonzalez. Eugene Valente DO PGY-1 Attending Provider Attestation/Addendum I, Kaylynn Gonzalez DO, attest that I was physically present for the mackenzie portions of the service and evaluated the patient with the resident and I reviewed and discussed the case with the resident and agree with the resident's findings and plans of care as documented above Patient seen and eval this a.m. Patient had an NG tube placed this morning due to uptrending hypernatremia. Will give free water flushes. Patient was noted to have grown yeast in the blood cultures in addition to Staph epidermidis and Pseudomonas in the urine. Will consult ID for further narrowing of antibiotics and antifungal as she is currently on vancomycin, Zosyn and micafungin. Patient does take chronic steroids for her COPD. Patient has become BiPAP dependent. Pending pulmonology recommendations. Patient complains of dry mouth due to BiPAP. Will speak to family regarding goals of care as patient is not able to be fed or tolerate p.o. given BiPAP dependence. She remains on Cardizem drip due to A-fib with RVR.
--- NOTE | 2025-08-05 10:54 | ESCONSULT_ITS ---
<Statement entered by Walter Montero MD - 08/08/25 09:36> pt seen with resident.all findings confirmed. see additional notes for details HPI Data of Consult Requesting Physician: John Paul Warren MD Admitting Provider: Jes Sol MD Attending Provider: John Paul Warren MD Primary Care Provider: Physician No Primary/Family Consult Narrative History of present illness: Ms. 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 Pt is admitted to the hospital for management plus treatment of AHRF secondary to Pneumonia. Urine analysis obtained in the ED during hospital admission is positive for nitrites and leukocyte esterase, pyuria. Unable to obtain history directly from the patient because she is on BiPAP right now. Pt friend/ethics manager at bedside stated she uses Bipap everytime she sleeps/naps not just at night and when she is awake at home she uses 2L via NC. Primary team consulted ID due to GPC bacteremia PMH: interstitial lung disease, pulmonary fibrosis, hypothyroidism, history of breast cancer, insulin-dependent type 2 diabetes PSH: Lumpectomy, Cholecystectomy SH: No history of alcohol, substance abuse or tobacco use as per chart review Home meds: Please refer to med rec for complete list cc:: cc: John Paul Warren MD Review of Systems Review of Systems Systems Reviewed: All systems reviewed, normal except as documented Exam Vital Signs Temp Pulse Resp BP Pulse Ox O2 Del Method O2 Flow Rate 96.7 F L 72 20 129/59 L 97 BiPAP 20 08/05/25 07:34 08/05/25 09:05 08/05/25 07:34 08/05/25 09:05 08/05/25 07:34 08/05/25 07:34 08/05/25 07:34 FiO2 40 08/05/25 07:34 Narrative Exam GENERAL: unable to obtain history due to patient on BiPAP NEURO: no focal neurological deficits noted HEENT: Atraumatic, Normocephalic. mucous membranes moist. Eyes open, symmetrical, & clear HEART: Normal Heart Sounds LUNGS: Clear to auscultation with no wheezing or crackles. ABDOMEN: soft, non-distended, non-tender, bowel sounds heard, no guarding or rebound tenderness SKIN: No Rash or ecchymoses EXTREMITIES: No edema, tenderness, able to move all 4 extremities, pedal pulses palpated Results Labs 08/07/25 05:40 08/07/25 19:53 Labs: Short CBC 08/05/25 Range/Units 05:19 WBC 14.7 H (3.6-11.0) Thou/mm3 Hgb 9.2 L (12.0-16.0) g/dL Hct 32.0 L (36.0-46.0) % Plt Count 164 (140-440) Thou/mm3 BMP 08/04/25 08/04/25 08/04/25 13:20 18:13 22:20 Sodium 151 H 151 H 149 H Potassium Chloride Carbon Dioxide BUN Creatinine Glucose Calcium 08/05/25 08/05/25 02:17 05:19 Sodium 151 H 151 H Potassium 4.2 Chloride 109 H Carbon Dioxide 35.4 H BUN 21 Creatinine 0.9 Glucose 178 H Calcium 9.8 Liver Function 08/05/25 Range/Units 05:19 Total Bilirubin 0.4 (0.3-1.2) mg/dL AST 14 (0-34) U/L ALT 33 (10-49) U/L Alkaline Phosphatase 59 (46-116) U/L Albumin 3.2 L (3.4-4.8) gm/dL ABG Interpretation ABG results: 08/01/25 08/01/25 08/02/25 02:15 09:05 12:15 ABG pH 7.25 L 7.30 L ABG pCO2 74 H* 66 H ABG pO2 62 L 84 D ABG HCO3 33 H 32 H ABG O2 Saturation 95 95 ABG Base Excess 4 H 4 H VBG pH 7.27 L VBG pCO2 63 H VBG pO2 Not Performed. VBG Base Excess 0 08/03/25 08/04/25 10:44 12:13 ABG pH 7.33 L 7.33 L ABG pCO2 64 H 69 H ABG pO2 88 85 ABG HCO3 34 H 36 H ABG O2 Saturation 95 95 ABG Base Excess 6 H 8 H VBG pH VBG pCO2 VBG pO2 VBG Base Excess Quality Measures Quality Measures VTE prophylaxis Advance care planning discussed with:: patient Medications Home Medications and Allergies Home Medications ?Medication ?Instructions ?Recorded ?Confirmed ?Type methenamine hippurate 1 gram tablet 1 g PO BID 0 08/03/25 History omeprazole 40 mg capsule,delayed 40 mg PO QDAY 1 08/02/25 History release aspirin 81 mg tablet 81 mg PO QDAY 03/19/2408/02 History hydrocodone 10 mg-acetaminophen 1 tab PO TID PRN pain 12/27/24 08/02/25 History 325 mg tablet lactobacillus comb no.10 20 25,000 mmu cells PO QDAY 0 12/27/24 08/02/25 History billion cell capsule (Probiotic) hydroxyzine HCl 25 mg tablet 25 mg PO BID PRN anxiety 08/02/25 08/02/25 History Allergies Allergy/AdvReac Type Severity Reaction Status Date / Time cefuroxime Allergy Intermediate Swelling Verified 06/08/25 14:34 of Lip/Tongue/Throat zinc Allergy Intermediate Rash Verified 06/08/25 14:34 iodine Allergy Unknown Verified 06/08/25 14:34 shellfish derived Allergy Unknown Verified 06/08/25 14:34 Sulfa (Sulfonamide Allergy Unknown Verified 06/08/25 14:34 Antibiotics) Influenza Virus Vaccines Allergy Verified 06/08/25 14:34 Visit Medications Acetaminophen (Acetaminophen 325 Mg Tablet) 650 mg PO Q6H PRN PRN Reason: Fever >100.4 Stop: 08/31/25 05:04 Aspirin (Aspirin Ec 81 Mg Tabec) 81 mg PO DAILY [facility] Stop: 08/31/25 08:59 Last Admin: 08/04/25 09:06 Dose: Not Given Atorvastatin Calcium (Atorvastatin Calcium 10 Mg Tablet) 10 mg PO HS [facility] Stop: 08/31/25 20:59 Last Admin: 08/04/25 20:05 Dose: Not Given Dextrose (Dextrose 50%-Water Inj 50 Ml Syringe) 25 ml IV Q15MIN PRN PRN Reason: BG 50-70 responsive npo pt Stop: 08/31/25 05:15 Dextrose (Dextrose 50%-Water Inj 50 Ml Syringe) 50 ml IV Q15MIN PRN PRN Reason: BG <50 OR BG <70 & pt unresponsive Stop: 08/31/25 05:15 Digoxin (Digoxin Inj 0.25 Mg/Ml Amp 2 Ml) 0.125 mg IVP QDAY [facility] Stop: 09/03/25 13:44 Last Admin: 08/05/25 09:05 Dose: 0.125 mg Glucagon (Glucagon Inj 1 Mg Vial) 1 mg IM Q15MIN PRN PRN Reason: BG <70, and no IV access Piperacillin Sod/Tazobactam (Sod 2.25 gm/ Sodium Chloride) 100 mls @ 200 mls/hr IV Q6HR [facility]; Protocol Stop: 08/08/25 11:59 Last Admin: 08/05/25 05:21 Dose: 200 mls/hr Heparin Sodium/Dextrose (Heparin In D5w Ivpb) 25,000 unit in 250 mls @ 10.093 mls/hr IV .Q24H [facility]; Protocol Stop: 08/16/25 13:59 Last Titration: 08/05/25 07:00 Dose: 7.7 units/kg/hr, 8.012 mls/hr Diltiazem/Sodium Chloride (Diltiazem In Ns 100 Mg) 100 mg in 100 mls @ 10 mls/hr IV .Q10H [facility] Stop: 09/03/25 09:32 Last Admin: 08/05/25 05:16 Dose: 10 mg/hr, 10 mls/hr Vancomycin HCl (Vancomycin/Water 1250 Mg Ivpb) 250 mls @ 120 mls/hr IV QDAY@1000 [facility] Stop: 08/11/25 12:29 Last Admin: 08/04/25 13:18 Dose: 120 mls/hr Potassium Phosphate (Pot Phos 15 Mmol In Ns 250 Ml) 15 mmol in 250 mls @ 62.5 mls/hr IV X1 ONE Stop: 08/05/25 12:18 Last Admin: 08/05/25 09:06 Dose: 62.5 mls/hr Micafungin Sodium 50 mg/ (Sodium Chloride) 100 mls @ 100 mls/hr IV QDAY [facility] Stop: 08/19/25 08:59 Insulin Degludec (Insulin Degludec 5 Unit/0.05 Ml (Per 5 Units)) 35 unit SC QDAY [facility] Stop: 08/31/25 08:59 Last Admin: 08/05/25 09:03 Dose: 35 unit Insulin Human Lispro (Insulin Lispro (Admelog) 1 Unit/0.01 Ml Unit) 0 unit SC ACHS [facility]; Protocol Stop: 08/31/25 07:29 Last Admin: 08/05/25 07:56 Dose: Not Given Ipratropium [place] (Ipratropium Rt 0.5 Mg/ 2.5 Ml Nebu) 0.5 mg INH Q6HR PRN PRN Reason: SHORTNESS OF BREATH Stop: 09/01/25 17:03 Levalbuterol HCl (Levalbuterol Rt 0.63 Mg/3 Ml Nebu) 0.63 mg INH Q6H PRN PRN Reason: WHEEZING Stop: 09/01/25 17:03 Levothyroxine Sodium (Levothyroxine Inj 100 Mcg Vial) 70 mcg IV QDAY [facility] Stop: 09/01/25 08:59 Last Admin: 08/05/25 09:04 Dose: 70 mcg Methylprednisolone Sodium Succinate (Methylprednisolone Sod Succ 40 Mg/Ml Vial) 16 mg IVP QDAY [facility] Stop: 08/09/25 08:59 Last Admin: 08/05/25 09:04 Dose: 16 mg Pantoprazole Sodium (Pantoprazole Inj 40 Mg Vial) 40 mg IVP QDAY [facility] Stop: 08/31/25 08:59 Last Admin: 08/05/25 09:05 Dose: 40 mg Pharmacy Consult (Vancomycin Pharmacy To Dose 1 Each Each) 1 each IV QDAY PRN PRN Reason: SEPSIS Stop: 08/31/25 16:59 Polyethylene Glycol (Polyethylene Glycol 17 Gm Packet) 17 gm PO DAILY [facility] Stop: 08/31/25 08:59 Last Admin: 08/04/25 09:05 Dose: Not Given Pramipexole Dihydrochloride (Pramipexole 0.25 Mg Tablet) 1 mg PO HS [facility] Stop: 08/31/25 20:59 Last Admin: 08/04/25 20:05 Dose: Not Given Sennosides (Senna Tablet) 1 tab PO QDAY [facility]; Protocol Stop: 08/31/25 08:59 Last Admin: 08/04/25 09:05 Dose: Not Given Sodium Chloride (Sodium Chloride Rt Sravani 0.9% 3 Ml Nebu) 3 ml INH PRN PRN PRN Reason: SOLN Stop: 08/31/25 02:10 Venlafaxine HCl (Venlafaxine Xr 37.5 Mg Capcr) 150 mg PO DAILY [facility] Stop: 08/31/25 08:59 Last Admin: 08/04/25 09:05 Dose: Not Given Discontinued Medications Albuterol (Albuterol Rt 2.5 Mg/0.5 Ml Nebu) 10 mg INH X1 ONE Stop: 08/01/25 02:12 Last Admin: 08/01/25 03:41 Dose: 10 mg Albuterol/Ipratropium (Albuterol/Ipratropium (Duoneb) Rt Sravani 3 Ml Nebu) 3 ml INH Q4HRRT [facility] Stop: 08/31/25 06:59 Last Admin: 08/02/25 14:43 Dose: Not Given Digoxin (Digoxin Inj 0.25 Mg/Ml Amp 2 Ml) 0.25 mg IVP X1 ONE Stop: 08/03/25 10:13 Last Admin: 08/03/25 10:29 Dose: 0.25 mg Digoxin (Digoxin Inj 0.25 Mg/Ml Amp 2 Ml) 0.125 mg IVP X1 ONE Stop: 08/03/25 11:01 Last Admin: 08/03/25 11:50 Dose: 0.125 mg Digoxin (Digoxin Inj 0.25 Mg/Ml Amp 2 Ml) 0.25 mg IVP X1 ONE Stop: 08/03/25 18:01 Last Admin: 08/03/25 18:09 Dose: 0.25 mg Diltiazem HCl (Diltiazem Inj 5 Mg/Ml Vial 5 Ml) 10 mg IV X1 ONE Stop: 08/02/25 11:54 Diltiazem HCl (Diltiazem Inj 5 Mg/Ml Vial 5 Ml) 20 mg IV X1 ONE Stop: 08/02/25 12:12 Last Admin: 08/02/25 12:51 Dose: 20 mg Heparin Sodium (Beef Lung) (Heparin Sod Lock Syr 100 Unit/Ml) 500 unit STFIELD X1 ONE Stop: 08/03/25 14:31 Last Admin: 08/03/25 14:30 Dose: 500 unit Heparin Sodium (Porcine) (Heparin Sod Inj 5000 Unit/Ml Vial) 5,000 unit SC Q8HR [facility] Stop: 08/15/25 05:59 Last Admin: 08/02/25 05:06 Dose: 5,000 unit Heparin Sodium (Porcine) (Heparin Sod Inj 5000 Unit/Ml Vial) 4,000 unit IV X1 ONE Stop: 08/02/25 14:01 Last Admin: 08/02/25 15:35 Dose: 4,000 unit Heparin Sodium (Porcine) (Heparin Sod Inj 5000 Unit/Ml Vial) 2,000 unit IVP X1 ONE Stop: 08/03/25 15:49 Last Admin: 08/03/25 16:04 Dose: 2,000 unit Piperacillin Sod/Tazobactam (Sod 4.5 gm/ Sodium Chloride) 100 mls @ 200 mls/hr IV X1 [facility]; Protocol Stop: 08/01/25 03:21 Last Infusion: 08/01/25 03:59 Dose: Infused Vancomycin/Sodium Chloride (Vancomycin/Ns 1 Gm Ivpb) 200 mls @ 120 mls/hr IV Q100M [facility] Stop: 08/01/25 06:19 Last Infusion: 08/01/25 07:45 Dose: Infused Lactated Ringer's (Lactated Ringers) 500 mls @ 999 mls/hr IV .Q31M [facility] Stop: 08/01/25 03:30 Last Infusion: 08/01/25 03:59 Dose: Infused Lactated Ringer's (Lactated Ringers) 1,000 mls @ 999 mls/hr IV .Q1H1M ONE Stop: 08/01/25 04:26 Last Infusion: 08/01/25 05:39 Dose: Infused Lactated Ringer's (Lactated Ringers) 1,000 mls @ 999 mls/hr IV .Q1H1M ONE Stop: 08/01/25 05:31 Last Infusion: 08/01/25 07:45 Dose: Infused Doxycycline Hyclate 100 mg/ (Sodium Chloride) 100 mls @ 100 mls/hr IV BID [facility] Stop: 08/08/25 08:59 Doxycycline Hyclate 100 mg/ (Sodium Chloride) 100 mls @ 100 mls/hr IV X1 ONE Stop: 08/01/25 06:29 Last Admin: 08/01/25 06:35 Dose: Not Given Piperacillin Sod/Tazobactam (Sod 2.25 gm/ Sodium Chloride) 100 mls @ 200 mls/hr IV Q8HR [facility]; Protocol Stop: 08/08/25 13:59 Magnesium Sulfate (Magnesium Sulfate Ivpb) 2 gm in 50 mls @ 25 mls/hr IV X1 ONE Stop: 08/01/25 12:39 Last Infusion: 08/01/25 13:44 Dose: Infused Vancomycin HCl (Vancomycin/Water 1250 Mg Ivpb) 250 mls @ 120 mls/hr IV Q24H [facility]; Protocol Stop: 08/09/25 09:59 Last Admin: 08/04/25 12:41 Dose: Not Given Diltiazem HCl (Diltiazem In D5w 125 Mg) 125 mg in 125 mls @ 5 mls/hr IV .Q24H [facility] Stop: 09/01/25 12:07 Last Infusion: 08/02/25 15:28 Dose: 5 mg/hr, 5 mls/hr Magnesium Sulfate (Magnesium Sulfate Ivpb) 2 gm in 50 mls @ 25 mls/hr IV X1 ONE Stop: 08/02/25 14:12 Last Infusion: 08/02/25 20:38 Dose: Infused Diltiazem HCl (Diltiazem In D5w 125 Mg) 125 mg in 125 mls @ 10 mls/hr IV .[id number] [facility] Stop: 09/01/25 17:04 Last Admin: 08/03/25 19:35 Dose: 10 mg/hr, 10 mls/hr Magnesium Sulfate (Magnesium Sulfate Ivpb) 2 gm in 50 mls @ 25 mls/hr IV X1 ONE Stop: 08/04/25 10:41 Last Admin: 08/04/25 09:19 Dose: 25 mls/hr Dextrose/Sodium Chloride (D5-1/2ns) 1,000 mls @ 80 mls/hr IV .[id number] ONE Stop: 08/04/25 22:28 Last Admin: 08/04/25 10:29 Dose: 80 mls/hr Vancomycin HCl (Vancomycin/Water 1250 Mg Ivpb) 250 mls @ 120 mls/hr IV Q24H [facility] Stop: 08/11/25 12:29 Micafungin Sodium 50 mg/ (Sodium Chloride) 100 mls @ 100 mls/hr IV X1 ONE Stop: 08/05/25 09:59 Last Admin: 08/05/25 09:06 Dose: 100 mls/hr Insulin Human Lispro (Insulin Lispro (Admelog) 1 Unit/0.01 Ml Unit) 0 unit SC AC [facility]; Protocol Stop: 08/31/25 07:29 Ipratropium [place] (Ipratropium Rt 0.5 Mg/ 2.5 Ml Nebu) 1 mg INH X1 ONE Stop: 08/01/25 02:12 Last Admin: 08/01/25 03:41 Dose: 1 mg Levothyroxine Sodium (Levothyroxine Sodium 100 Mcg Tablet) 100 mcg PO ACBR [facility] Stop: 08/31/25 05:59 Last Admin: 08/02/25 05:38 Dose: Not Given Lidocaine HCl (Lidocaine Inj Pf 1% 30 Ml Vial) 7 ml INFL X1 ONE Stop: 08/03/25 14:31 Last Admin: 08/03/25 14:32 Dose: 7 ml Methylprednisolone Sodium Succinate (Methylprednisolone Sod Succ 62.5 Mg/Ml 2ml Vial) 125 mg IVP X1 ONE Stop: 08/01/25 02:12 Last Admin: 08/01/25 02:22 Dose: 125 mg Metoprolol Succinate (Metoprolol Succinate Xl 25 Mg Tabcr) 25 mg PO DAILY [facility] Stop: 08/31/25 08:59 Last Admin: 08/02/25 09:20 Dose: Not Given Metoprolol Tartrate (Metoprolol Tartrate Inj 1 Mg/Ml Vial 5 Ml) 2 mg IVP X1 ONE Stop: 08/01/25 10:41 Last Admin: 08/01/25 11:07 Dose: 2 mg Metoprolol Tartrate (Metoprolol Tartrate Inj 1 Mg/Ml Vial 5 Ml) 2.5 mg IVP X1 ONE Stop: 08/02/25 08:11 Last Admin: 08/02/25 09:18 Dose: Not Given Ondansetron HCl (Ondansetron Inj 2 Mg/Ml Inj 2 Ml) 4 mg IVP Q6H PRN; Protocol PRN Reason: NAUSEA OR VOMITING Stop: 08/31/25 05:04 Pharmacy Consult (Vancomycin Pharmacy To Dose 1 Each Each) 1 each IV QDAY [facility] Stop: 08/01/25 02:52 Last Admin: 08/01/25 06:35 Dose: Not Given Prednisone (Prednisone 20 Mg Tablet) 20 mg PO DAILY [facility] Stop: 08/31/25 08:59 Last Admin: 08/01/25 10:53 Dose: Not Given Sodium Chloride (Sodium Chloride Rt 10% 15 Ml Nebu) 5 ml INH X1 ONE Stop: 08/01/25 05:19 Last Admin: 08/01/25 08:25 Dose: Not Given Assessment & Plan Plan Ms. 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 Pt is admitted to the hospital for management plus treatment of AHRF secondary to Pneumonia. #Acute on chronic hypoxic hypercapnic respiratory failure secondary to #Aspiration pneumonia versus #Interstitial lung disease -Per progressive care unit registered nurse pt choked on food and since then started coughing and became hypoxic. -Upon arrival to the ED the patient was saturating in the high 30s, received breathing treatment,which improve 80s on arrival to ED, and was placed on BiPAP. -Initial ABG showed pH 7.25, pCO2 74, pO2 62, bicarb 33, represents respiratory acidosis with early stages of metabolic compensation represented by increased bicarb -Lactate 2.4 -Chest x-ray: Significant bilateral pneumonia -Patient requires BiPAP at home whenever she sleeps or naps and uses home oxygen, Patient is currently on a prednisone taper Plan: -BiPAP as needed and DuoNebs every 4 hours scheduled -Prednisone 20 mg daily (currently on a taper, patient should continue this dose for 1 week) -Aspiration precautions -Pt is currently on Zosyn #Asymptomatic Bacteriuria Urinalysis on admission showed pyuria 76, leukocyte esterase positive and nitrites positive Urine culture grew pseudomonas auregonosa Plan: -Pt started on Zosyn 2.25 g every 8 hours #NSTEMI #Hypernatremia #Hyperkalemia #Insulin-dependent type 2 diabetes #Hyperlipidemia #Hypertension #Hypothyroidism #Depression -Continue treatment as per primary team Assessment and plan discussed with my attending physician Dr. Winston Yo (PGY-2)- Internal medicine resident
[2025-08-05] MEDS: VANCOMYCIN/WATER 1250 MG IVPB 250 ML 120 MG IV (10:55)
--- NOTE | 2025-08-05 11:00 | PD.IDPROG ---
Subjective Subjective Interval history: repeat bc with possible yeast in 1/2 bc. no more data last seen by me in may. is third dnr on list choked at home. is 89 yoa. Exam Vital Signs Temp Pulse Resp BP Pulse Ox O2 Del Method O2 Flow Rate 96.7 F L 72 20 129/59 L 97 BiPAP 20 08/05/25 07:34 08/05/25 09:05 08/05/25 07:34 08/05/25 09:05 08/05/25 07:34 08/05/25 07:34 08/05/25 07:34 FiO2 40 08/05/25 07:34 Narrative Exam on O 2 by bipap. cxr noted. hard to see pneumonia in face of ild Objective - Internal Medicine Labs 08/05/25 05:19 08/05/25 05:19 Labs: Laboratory Results - last 24 hr 08/04/25 08/04/25 08/04/25 09:15 12:13 13:20 WBC RBC Hgb Hct MCV MCH MCHC RDW Std Deviation Plt Count Neut % (Auto) Lymph % (Auto) [place] % (Auto) Eos % (Auto) Baso % (Auto) Neut # (Auto) Lymph # (Auto) [place] # (Auto) Eos # (Auto) Baso # (Auto) Immature Gran # (Auto) Absolute Nucleated RBC Immature Gran % Nucleated RBC % APTT 67.2 H Puncture Site Left Radial ABG pH 7.33 L ABG pCO2 69 H ABG pO2 85 ABG HCO3 36 H ABG O2 Saturation 95 ABG Base Excess 8 H FiO2 40 Sodium 151 H Potassium Chloride Carbon Dioxide Anion Gap BUN Creatinine Estim Creat Clear Calc eGFR BUN/Creatinine Ratio Glucose Calculated Osmolality Calcium Corrected Calcium Phosphorus Magnesium Total Bilirubin AST ALT Alkaline Phosphatase Total Protein Albumin Globulin Albumin/Globulin Ratio Vancomycin Trough 15.9 H 08/04/25 08/04/25 08/05/25 18:13 22:20 02:17 WBC RBC Hgb Hct MCV MCH MCHC RDW Std Deviation Plt Count Neut % (Auto) Lymph % (Auto) [place] % (Auto) Eos % (Auto) Baso % (Auto) Neut # (Auto) Lymph # (Auto) [place] # (Auto) Eos # (Auto) Baso # (Auto) Immature Gran # (Auto) Absolute Nucleated RBC Immature Gran % Nucleated RBC % APTT Puncture Site ABG pH ABG pCO2 ABG pO2 ABG HCO3 ABG O2 Saturation ABG Base Excess FiO2 Sodium 151 H 149 H 151 H Potassium Chloride Carbon Dioxide Anion Gap BUN Creatinine Estim Creat Clear Calc eGFR BUN/Creatinine Ratio Glucose Calculated Osmolality Calcium Corrected Calcium Phosphorus Magnesium Total Bilirubin AST ALT Alkaline Phosphatase Total Protein Albumin Globulin Albumin/Globulin Ratio Vancomycin Trough 08/05/25 05:19 WBC 14.7 H RBC 3.18 L Hgb 9.2 L Hct 32.0 L MCV 101 H MCH 28.9 MCHC 28.8 L RDW Std Deviation 61.6 H Plt Count 164 Neut % (Auto) 85 H Lymph % (Auto) 4 L [place] % (Auto) 6 Eos % (Auto) 0 Baso % (Auto) 0 Neut # (Auto) 12.5 H Lymph # (Auto) 0.5 L [place] # (Auto) 0.8 Eos # (Auto) 0.0 Baso # (Auto) 0.0 Immature Gran # (Auto) 0.84 H Absolute Nucleated RBC 0.06 H Immature Gran % 6 H Nucleated RBC % 0 APTT 56.7 H D Puncture Site ABG pH ABG pCO2 ABG pO2 ABG HCO3 ABG O2 Saturation ABG Base Excess FiO2 Sodium 151 H Potassium 4.2 Chloride 109 H Carbon Dioxide 35.4 H Anion Gap 7 BUN 21 Creatinine 0.9 Estim Creat Clear Calc 51.5 L eGFR > 60 BUN/Creatinine Ratio 23 H Glucose 178 H Calculated Osmolality 306 H Calcium 9.8 Corrected Calcium 10.4 H Phosphorus 2.2 L Magnesium 2.2 Total Bilirubin 0.4 AST 14 ALT 33 Alkaline Phosphatase 59 Total Protein 5.4 L Albumin 3.2 L Globulin 2.2 L Albumin/Globulin Ratio 1.5 Vancomycin Trough ABG Interpretation ABG results: 08/01/25 08/01/25 08/02/25 02:15 09:05 12:15 ABG pH 7.25 L 7.30 L ABG pCO2 74 H* 66 H ABG pO2 62 L 84 D ABG HCO3 33 H 32 H ABG O2 Saturation 95 95 ABG Base Excess 4 H 4 H VBG pH 7.27 L VBG pCO2 63 H VBG pO2 Not Performed. VBG Base Excess 0 08/03/25 08/04/25 10:44 12:13 ABG pH 7.33 L 7.33 L ABG pCO2 64 H 69 H ABG pO2 88 85 ABG HCO3 34 H 36 H ABG O2 Saturation 95 95 ABG Base Excess 6 H 8 H VBG pH VBG pCO2 VBG pO2 VBG Base Excess Assessment & Plan A&P Narrative dnr status multiple listed allergies. prior id eval in may noted. abn ua in an 89 y/o lady with pos cx noted. not clear if she followed advice for vaginal estrogen in may. will review friday again and see if f/u cx also show yeast. ild hx noted with hypercapnea. confounding things a bit. is in house frequently on vanco/zosyn/micafungin and steroids. at most low grade temps soon after arrival. wbc may be related to steroids but is done popularly. nasal mrsa neg. so mrsa an unlikely player in pneumonia bc with coag neg and repeats appear to be neg for any staph. line placed rt chest approx 08/03 so is fast for yeast. echo neg so stopped vanco and left on micafungin and zosyn and will check in again friday am no cough noted. no notable fever but is on steriods. Time Spent With Patient Time: Total time spent is greater than 50% in coordination of care (as documented) at patient's floor/unit and/or counseling patient:
[2025-08-05] MEDS: ASPIRIN 81 MG CHEW NG (11:33)
[2025-08-05] MEDS: POLYETHYLENE GLYCOL 17 GM PACKET PO (11:33)
[2025-08-05] MEDS: VENLAFAXINE XR 37.5 MG CAPCR 150 MG PO (11:33)
--- NOTE | 2025-08-05 12:34 | ESCONSULT_ITS ---
RE: SHAN SLAUGHTER : 1935 DATE OF CONSULTATION: 08/05/2025 REFERRING PHYSICIAN: Jes Sol MD. REASON FOR CONSULTATION: Pneumonia and interstitial lung disease. HISTORY OF PRESENT ILLNESS: Patient is a 89-year-old woman on BiPAP. She cannot offer much history other than her prior interstitial lung disease and her pulmonary fibrosis for which she is followed by work measurement engineer, Dr. De Paz. She has been on a variety of antimicrobials. She has not had much of a cough. She choked on some food at home, is on oxygen at home. She uses BiPAP when she is sleeping and even during the day. ALLERGIES: ARE LISTED. IMMUNIZATIONS: Last tetanus is not known. She does take an annual flu shot. Has not had COVID vaccine. Has not had pneumococcal vaccine. FAMILY HISTORY: Negative. SOCIAL HISTORY: She lives alone, but has 24-hour care. There are 2 daughters in the room with her. Her exam is otherwise benign. I saw her last about May. ASSESSMENT: Pneumonia versus interstitial lung disease. RECOMMENDATIONS: I am going to narrow her treatment down a little bit because her nasal MRSA is negative and her blood culture appears to be a contaminant. I will check on her again if she remains on Friday superficially, but if she goes home before then I have no objection. The Zosyn can often be switched for Levaquin if she is truly sensitive but she has no organisms in all her culture. On will check on her on Friday. DT: 12:10:55 TT: 12:33:00 Ref: [id number] - TID: [id number] [facility]
--- NOTE | 2025-08-05 13:03 | ESPR_ITS ---
<Statement entered by Doron Allen MD - 08/06/25 00:07> Patient was seen and examined by me personally. I have reviewed the below documentation by the team resident Dr Freedom Stovall DO PGY-1 and agree with its findings. Ms. Coffman is a 89-year-old female with past medical history of ILD/pulmonary fibrosis/chronic hypersensitivity pneumonitis with chronic respiratory failure on 2 L home oxygen and BiPAP currently on steroid taper, pulmonary arterial hypertension, heart failure with preserved ejection fraction, EF 60-65%, chronically bedbound, recurrent MDR UTIs, hypothyroidism, right breast cancer status postlumpectomy with lymph node dissection, insulin-dependent type 2 diabetes mellitus, GERD, depression, chronic back pain and nephrolithiasis who presented to [facility] ([facility]] emergency department on 08/01/2025 with a chief complaint of hypoxia. Prior to admission in the afternoon patient had coughing episodes which intensified after patient ate half of her dinner, patient continued to have phlegm with increased cough, there was concern of aspiration and EMS were called. Patient's SpO2 in 30s on EMS arrival, patient placed on BiPAP in the ED and admitted to the hospital for management of acute on chronic hypoxic hypercapnic respiratory failure in setting of possible aspiration pneumonia. 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 Pulmonology notes reviewed. Patient steroid taper is being managed by resident clinic outpatient with recommendations from pulmonology remotely. Patient has had multiple admissions for hypercapnia, currently using BiPAP every night with [employer]. Patient does have history of heart failure, HFpEF with a EF 60 to 65%, never seen a rn admissions outpatient, patient not on diuretics outpatient per resident clinic note as patient has chronic hypercapnia and diuresis causes contraction alkalosis causing further respiratory decompensation. Patient currently on diltiazem drip 10 mg/h and digoxin 0.125 mg daily and is rate controlled. Currently on heparin gtt. 08/05/25-patient seen at bedside, heart rate is controlled with current regimen. Patient has NG tube placed due to continued hypernatremia, started on free water flushes. Patient is pending EGD, patient being followed by infectious disease, for 1/2 blood culture positive for staph. Will continue to monitor fluid status, does not seem to be in any acute exacerbation of heart failure. Thank you for the consult and allowing to participate in the care of the patient. Cardiology will continue to follow. Case discussed with Attending Physician Dr. Steven Allen MD Internal Medicine PGY-2 Disclaimer: This note was dictated by speech recognition. Minor errors in hob mill operator may be present due to voice recognition software Documentation for date of: 08/05/25 Subjective Subjective Interval history: Ms Adelaida Coffman is 89yF with PMH of interstitial lung disease, pulmondary fibrosis, chronic CO2 retention on 2L home oxygen and BiPAP, HFpEF, bedbound, recurrent UTIs, hypothyrodism, right breast cancer status postlumpectomy, insulin-dependent type 2 diabetes, GERD, depression, and chronic back pain, presented to the ED on 08/01/2025 due to hypoxemia. The patient started to cough following lunch the day before admission (07/31) and worsened while eating her dinner on the same day. The caregiver noted the patient was expectorating phlegm without any food particles, and suspected possible aspiration. Per EMS note, patient's oxygen level was in 30s and at 68% on 2L nasal cannula and to mid 80s after albuterol treatment. Patient was admitted for acute on chronic hypoxic hypercapnic respiratory failure and aspiration pneumonia. Cardiology was consulted for management of new onset Afib on EKG. ED course: Vitals: Temp 99.6F, VA: 128, RR:28, BP: 127/74, O2sat:95% On Oxy mask 15L Labs: WBC 23.2, Hgb:11.8, ABG pCO2:74, ABG pH:7.25, Na:148, K:5.2, HCO2: 33.1, Cr:1.2, eGFR:43, Glucose: 241, HbA1c: 6.6, Lactic acid:2.4 (increased to 18.0 in 3hrs), Ca 9.8 (decreased to 6.4 in 3hrs), Troponin:0.051, BNP: 193 CXR (08/01/2025): Extensive bilateral pneumonia, consider associated mild heart failure In ED, Patient received 125 mg IV push methylprednisolone, Zosyn, treatment with albuterol, ipratropium, a dose of vancomycin, 2.5 L of L Medical history: As stated above Surgical history: Right breast lumpectomy, Cholesectomy Allergies: Cefuroxime, Topical zinc, Iodine contrast, Sulfa, Influenza virus, Cefuroxime Medications: Vitamin C 500 mg twice a day, Aspirin 81 mg daily, Calcium vitamin D supplement, Estrogen vaginal cream, Harrison 5-3 25 p.o. 3 times daily as needed for pain, Hydroxyzine 25 mg tablet every 6 hours as needed for anxiety, Levothyroxine 100 mcg daily, Metformin 500 mg daily, 35 insulin degludec every morning, 8 units 3 times daily with meals, plus sliding scale, Methenamine 1 g p.o. twice daily, Metoprolol succinate 25 mg daily, Omeprazole 40 mg daily, Pramipexole 1 mg daily, Prednisone 20 mg daily, taper currently, Rosuvastatin 5 mg nightly, Venlafaxine 150 mg XR daily Family history: Noncontributory Social history: Denies smoking cigarettes, drinking alcohol or using other illicit drugs, Lives at home, 24-hour caregiver support 08/02/2025: Labs reviewed and patient examined at the bedside. Recommend Diltiazem drip 10mg/hr and heparin drip if no contraindication to anticoagulation. Also recommend stopping metoprolol due to history of ILD and to avoid bronchospasm. ECHO is pending. Recommend IV lasix 20mg x1 after examining her kidney function and fluid status tomorrow. Upon examination, patient complains of SOB. but denies palpation, chest pain, nausea or vomiting. 08/03/2025: No Overnight events. Labs reviewed and patient examined at the bedside. This morning, patient was tachycardc (HR 120s) with low BP 109/86. Patient was given IV Digoxin 0.25mg x1 and 0.125mg x1 this morning. Patient was still tachycardic this afternoon, so another IV Digoxin 0.25mg x1 was given. Will assess her BP and HR tomorrow. Recommend increasing Ditiazem drip 10mg/hr to 15mg/hr tomorrow if patient is still tachycardic as long as BP tolerates. Patient's sodium increased from 149 to 152, likely from dehydration. No need for diuresis for now. Recommend putting NG tube and give water flushes for hypernatremia, and change heparin drip to oral eliquis and IV digoxin to PO digoxin. Denies chest pain, palpation, N/V, fevers or chills. 08/04/2025: Labs reviewed and patient examined at the bedside. Morning tele monitoring showed Afib, rate controlled. Patient will continue on Diltiazem drip 10mg/hr and IV digoxin 0.125mg qd. Pt's Na level was 153. Started on D5W 80ml/hr, now downtrending to 151. Denies chest pain, palpation, abdominal pain, N/V, fevers or chills. 08/05/2025: No Overnight events. Labs reviewed and patient examined at the bedside. Continue Diltiazem drip 10mg/hr and IV digoxin 0.125mg qd. Sodium level today was 151. Denies chest pain, palpation, SOB, abdominal pain, N/V, fevers or chills. Exam Vital Signs Temp Pulse Resp BP Pulse Ox O2 Del Method O2 Flow Rate 96.7 F L 77 30 H 129/59 L 97 BiPAP 20 08/05/25 07:34 08/05/25 11:02 08/05/25 11:02 08/05/25 09:05 08/05/25 11:02 08/05/25 07:34 08/05/25 07:34 FiO2 40 08/05/25 11:02 Narrative Exam General: AAOx3, Stressed, Frail, Elderly, on BiPAP Eye: normal conjunctiva, no scleral icterus HENT: Normocephalic, atraumatic, hearing intact to conversation at normal volume, moist oral mucosa Neck: Supple, non-tender, no JVD, no lymphadenopathy Lungs: Labored respirations, symmetric chest rise, Clear to auscultate bilaterally, Wheezing bilateral lungs Heart: Peripheral pulses intact bilaterally, Irregularly irregular Abdomen: Soft, non-tender, Distended, no palpable masses Musculoskeletal: No cyanosis or edema, No visible joint swelling Skin: Skin is warm, dry, no rashes or lesions. Neuro: Cranial nerves II-XII grossly intact. Sensations intact to light touch. Objective Labs 08/07/25 05:40 08/07/25 05:40 Labs: Laboratory Results - last 24 hr 08/04/25 08/04/25 08/04/25 13:20 18:13 22:20 WBC RBC Hgb Hct MCV MCH MCHC RDW Std Deviation Plt Count Neut % (Auto) Lymph % (Auto) [place] % (Auto) Eos % (Auto) Baso % (Auto) Neut # (Auto) Lymph # (Auto) [place] # (Auto) Eos # (Auto) Baso # (Auto) Immature Gran # (Auto) Absolute Nucleated RBC Immature Gran % Nucleated RBC % APTT 67.2 H Sodium 151 H 151 H 149 H Potassium Chloride Carbon Dioxide Anion Gap BUN Creatinine Estim Creat Clear Calc eGFR BUN/Creatinine Ratio Glucose Calculated Osmolality Calcium Corrected Calcium Phosphorus Magnesium Total Bilirubin AST ALT Alkaline Phosphatase Total Protein Albumin Globulin Albumin/Globulin Ratio 08/05/25 08/05/25 02:17 05:19 WBC 14.7 H RBC 3.18 L Hgb 9.2 L Hct 32.0 L MCV 101 H MCH 28.9 MCHC 28.8 L RDW Std Deviation 61.6 H Plt Count 164 Neut % (Auto) 85 H Lymph % (Auto) 4 L [place] % (Auto) 6 Eos % (Auto) 0 Baso % (Auto) 0 Neut # (Auto) 12.5 H Lymph # (Auto) 0.5 L [place] # (Auto) 0.8 Eos # (Auto) 0.0 Baso # (Auto) 0.0 Immature Gran # (Auto) 0.84 H Absolute Nucleated RBC 0.06 H Immature Gran % 6 H Nucleated RBC % 0 APTT 56.7 H D Sodium 151 H 151 H Potassium 4.2 Chloride 109 H Carbon Dioxide 35.4 H Anion Gap 7 BUN 21 Creatinine 0.9 Estim Creat Clear Calc 51.5 L eGFR > 60 BUN/Creatinine Ratio 23 H Glucose 178 H Calculated Osmolality 306 H Calcium 9.8 Corrected Calcium 10.4 H Phosphorus 2.2 L Magnesium 2.2 Total Bilirubin 0.4 AST 14 ALT 33 Alkaline Phosphatase 59 Total Protein 5.4 L Albumin 3.2 L Globulin 2.2 L Albumin/Globulin Ratio 1.5 ABG Interpretation ABG results: 08/01/25 08/01/25 08/02/25 02:15 09:05 12:15 ABG pH 7.25 L 7.30 L ABG pCO2 74 H* 66 H ABG pO2 62 L 84 D ABG HCO3 33 H 32 H ABG O2 Saturation 95 95 ABG Base Excess 4 H 4 H VBG pH 7.27 L VBG pCO2 63 H VBG pO2 Not Performed. VBG Base Excess 0 08/03/25 08/04/25 10:44 12:13 ABG pH 7.33 L 7.33 L ABG pCO2 64 H 69 H ABG pO2 88 85 ABG HCO3 34 H 36 H ABG O2 Saturation 95 95 ABG Base Excess 6 H 8 H VBG pH VBG pCO2 VBG pO2 VBG Base Excess Quality Measures Quality Measures VTE prophylaxis Advance care planning discussed with:: patient and other Assessment & Plan Assessment Current Active Medications: Generic Name Dose Route Start Last Admin Trade Name Vy PRN Reason Stop Dose Admin Acetaminophen 650 mg 08/01/25 05:05 Acetaminophen 325 Mg Tablet PO 08/31/25 05:04 Q6H PRN Fever >100.4 Aspirin 81 mg 08/05/25 11:30 08/05/25 11:33 Aspirin 81 Mg Chew NG 09/04/25 11:29 81 mg DAILY LISETTE Administration Atorvastatin Calcium 10 mg 08/01/25 21:00 08/04/25 20:05 Atorvastatin Calcium 10 Mg Tablet PO 08/31/25 20:59 Not Given HS LISETTE Dextrose 25 ml 08/01/25 05:16 Dextrose 50%-Water Inj 50 Ml Syringe IV 08/31/25 05:15 Q15MIN PRN BG 50-70 responsive npo pt Dextrose 50 ml 08/01/25 05:16 Dextrose 50%-Water Inj 50 Ml Syringe IV 08/31/25 05:15 Q15MIN PRN BG <50 OR BG <70 & pt unresponsive Digoxin 0.125 mg 08/04/25 13:45 08/05/25 09:05 Digoxin Inj 0.25 Mg/Ml Amp 2 Ml IVP 09/03/25 13:44 0.125 mg QDAY LISETTE Administration Glucagon 1 mg 08/01/25 05:16 Glucagon Inj 1 Mg Vial IM Q15MIN PRN BG <70, and no IV access Piperacillin Sod/Tazobactam 100 mls @ 200 mls/hr 08/01/25 12:00 08/05/25 12:13 Sod 2.25 gm/ Sodium Chloride IV 08/08/25 11:59 200 mls/hr Q6HR LISETTE Administration Protocol Heparin Sodium/Dextrose 25,000 unit in 250 mls @ 10.093 mls/hr 08/02/25 14:00 08/05/25 07:00 Heparin In D5w Ivpb IV 08/16/25 13:59 7.7 units/kg/hr .Q24H LISETTE 8.012 mls/hr Protocol Titration 9.7 UNITS/KG/HR Diltiazem/Sodium Chloride 100 mg in 100 mls @ 10 mls/hr 08/04/25 09:33 08/05/25 05:16 Diltiazem In Ns 100 Mg IV 09/03/25 09:32 10 mg/hr .Q10H LISETTE 10 mls/hr 10 MG/HR Administration Micafungin Sodium 50 mg/ 100 mls @ 100 mls/hr 08/06/25 09:00 Sodium Chloride IV 08/19/25 08:59 QDAY LISETTE Insulin Degludec 35 unit 08/01/25 09:00 08/05/25 09:03 Insulin Degludec 5 Unit/0.05 Ml (Per 5 Units) SC 08/31/25 08:59 35 unit QDAY LISETTE Administration Insulin Human Lispro 0 unit 08/01/25 07:30 08/05/25 11:59 Insulin Lispro (Admelog) 1 Unit/0.01 Ml Unit SC 08/31/25 07:29 Not Given ACHS [facility] Protocol Ipratropium [place] 0.5 mg 08/02/25 17:04 Ipratropium Rt 0.5 Mg/ 2.5 Ml Nebu INH 09/01/25 17:03 Q6HR PRN SHORTNESS OF BREATH Levalbuterol HCl 0.63 mg 08/02/25 17:04 Levalbuterol Rt 0.63 Mg/3 Ml Nebu INH 09/01/25 17:03 Q6H PRN WHEEZING Levothyroxine Sodium 70 mcg 08/02/25 09:00 08/05/25 09:04 Levothyroxine Inj 100 Mcg Vial IV 09/01/25 08:59 70 mcg QDAY LISETTE Administration Methylprednisolone Sodium Succinate 16 mg 08/02/25 09:00 08/05/25 09:04 Methylprednisolone Sod Succ 40 Mg/Ml Vial IVP 08/09/25 08:59 16 mg QDAY LISETTE Administration Pantoprazole Sodium 40 mg 08/06/25 09:00 Pantoprazole 40 Mg Tablet PO 09/05/25 08:59 QDAY [facility] Protocol Polyethylene Glycol 17 gm 08/01/25 09:00 08/05/25 11:33 Polyethylene Glycol 17 Gm Packet PO 08/31/25 08:59 17 gm DAILY LISETTE Administration Pramipexole Dihydrochloride 1 mg 08/01/25 21:00 08/04/25 20:05 Pramipexole 0.25 Mg Tablet PO 08/31/25 20:59 Not Given HS LISETTE Sennosides 1 tab 08/01/25 09:00 08/05/25 11:33 Senna Tablet PO 08/31/25 08:59 1 tab QDAY L[facility]TE Administration Protocol Sodium Chloride 3 ml 08/01/25 02:11 Sodium Chloride Rt Sravani 0.9% 3 Ml Nebu INH 08/31/25 02:10 PRN PRN SOLN Venlafaxine HCl 150 mg 08/01/25 09:00 08/05/25 11:33 Venlafaxine Xr 37.5 Mg Capcr PO 08/31/25 08:59 150 mg DAILY LISETTE Administration Plan Ms Adelaida Coffman is 89yF with PMH of interstitial lung disease, pulmondary fibrosis, chronic CO2 retention on 2L home oxygen and BiPAP, HFpEF, bedbound, recurrent UTIs, hypothyrodism, right breast cancer status postlumpectomy, insulin-dependent type 2 diabetes, GERD, depression, and chronic back pain, presented to the ED on 08/01/2025 due to hypoxemia. Patient was admitted for acute on chronic hypoxic hypercapnic respiratory failure and aspiration pneumonia. Cardiology was consulted for management of new onset Afib on EKG. #New Onset A Fib with RVR -Patient has SOB. Denies palpation or chest pain. -EKG showed irregularly irregular rhythm rate 155 with RBBB. MAT ruled out. No history of atrial fibrillation -CHADSVASc score 6 HASBLEED score 3. High Risk of major bleeding -Was given diltiazem IV 20 mg x 1 and was started on diltiazem gtt. 5 mg/h which was increased to 10 mg/h as patient continued to remain tachycardic -On morning of 08/03, patient was tachycardc (HR 120s) with low BP 109/86. Patient was given IV Digoxin 0.25mg x1 and 0.125mg x1 this morning. Patient was still tachycardic this afternoon, so another IV Digoxin 0.25mg x1 was given. Plan: -Continue diltiazem drip 10mg/hr. transition to p.o. once able, start Cardizem 240 mg p.o. when able -Continue heparin drip, transition to oral Eliquis when no contraindications -On IV digoxin 0.125mg qd, transition to oral when no contraindications. Check digoxin levels in 7 days after initiation -Recommend Holter monitor outpatient to assess afib burden. -Keep potassium greater than 4 and magnesium greater than 2 at all times #Chronic diastolic CHF, HFpEF EF 65% (12/29/2024) -Past ECHO (12/29/2024): Normal left ventricular size and function. Approximate ejection fraction is 65%. Trace mitral and trace tricuspid regurgitation, No wall motion abnormalities noted. -CXR (08/02/2025): extensive bilateral lung opacity, Mild enlargement cardiac contour with significant vascular congestion on physical exam 1+ edema noted bilateral hips. -Patient's underlying respiratory status and lieu of ILD flare/aspiration pneumonia -ECHO (08/02/2025) showed: 1. Left ventricle size is normal and systolic function is normal. Estimated ejection fraction is 60-65%. There is indeterminate diastolic function due to afib. There is mild concentric hypertrophy noted. 2. Right ventricle is not well visualized. RV function appears normal. 3. There is mild aortic valve sclerosis with no stenosis. 4. Mild thickening of the mitral valve leaflets. Mild MR, mild MAC. Mild TR. 5. Normal IVC with estimated RA pressure 3 mmHg. 6. Prior study from 12/29/2024. Plan: -Hold diuresis now as patient does not have signs of fluid overload -Strict I and Os, -Fluid restriction 1500ml -Mg>2, K>4 -Management of respiratory disease per primary team #Pulmonary Hypertension, Group III #Hx of Interstitial Lung Disease -PMH of interstitial Lung Disease -Chest CT (08/01/2025): Pulmonary artery hypertension, Severe pneumonia and/or edema throughout the lungs Plan: -BiPAP prn -Duoneb prn -Steroid taper per pulmonology #HTN -In ED, 155/80 -Continue diltiazem drip for now. #Hypernatremia #Acute on chronic hypoxic hypercapnic respiratory failure, likely secondary to #Aspiration pneumonia #Sepsis #GPC bacteremia #Lactic acidosis #Leukocytosis #UTI #Insulin-dependent type 2 diabetes #Esophageal stenosis s/p dilation #Chronic normocytic anemia #Hyperlipidemia #Hypothyroidism #Chronic constipation #Depression #Parkinson -Management per Primary Hospitalist team Thank you for allowing us to participate in the care of Ms Adelaida Coffman. Cardiology will continue to follow Assessment and plan discussed with my attending physician Dr. Spencer and Dr. Allen (PGY-2) Dr. Stovall (PGY-1) - Internal medicine resident Attending Provider Attestation/Addendum I have personally seen and examined the patient separately on the above date of service and discussed the plan of care with the resident. I reviewed the resident Dr. Freedom Stovall / Doron Allen consultation progress note and agree with the resident findings and plan in the note above and have also edited the documentation to reflect my findings and plan. Steven Spencer M.D. Interventional Cardiology
[2025-08-05 14:31] LABS: Sodium 150 mMol/L (136-145)
--- NOTE | 2025-08-05 14:41 | PC.DIETICIAN ---
Nutrition prescription If EN is within plan of care, consider: Glucerna 1.2 at 20 ml/hr via NG tube by pump. Advance 10 ml every 8 hrs to goal rate of 60 ml/hr x 24 hrs. If no IV fluids, water flushes of 25 ml/hr (or per MD). Provides: 1728 kcal, 86 g prot, 1159 ml free water, 1440 ml total volume.
--- NOTE | 2025-08-05 15:15 | PC.SS ---
Wheel Chairs Patients diagnosis creates mobility limitations that significantly impairs ability to participate in the patients activities of daily living either in their entirety, or in a reasonable time frame in the home and the patients mobility limitations can not be sufficiently resolved with an appropriately fitted cane or walker. Also the use of a manual wheelchair will sufficiently improve patient?s ability to participate in the activities of daily living in the home and the patient is willing to use the wheelchair that is provided in the home. The patient has some one in the home that is available, willing and able to provide assistance with the wheelchair.
--- NOTE | 2025-08-05 15:20 | PC.SS ---
DME referral submitted on [facility]. Awaiting responses. Order placed in patient's chart.
--- NOTE | 2025-08-05 17:53 | PD.IMPROG ---
Documentation for date of: 08/05/25 Subjective Subjective Interval history: Patient evaluated Patient remains on BiPAP Hemoglobin hematocrit 9.2 and 32.0 Exam Vital Signs Temp Pulse Resp BP Pulse Ox O2 Del Method O2 Flow Rate 97.7 F 85 14 144/57 H 97 BiPAP 20 08/05/25 16:00 08/05/25 16:00 08/05/25 16:00 08/05/25 16:00 08/05/25 16:00 08/05/25 16:00 08/05/25 16:00 FiO2 40 08/05/25 16:00 Objective Labs 08/05/25 05:19 08/05/25 13:45 Labs: Laboratory Results - last 24 hr 08/04/25 08/04/25 08/05/25 18:13 22:20 02:17 WBC RBC Hgb Hct MCV MCH MCHC RDW Std Deviation Plt Count Neut % (Auto) Lymph % (Auto) [place] % (Auto) Eos % (Auto) Baso % (Auto) Neut # (Auto) Lymph # (Auto) [place] # (Auto) Eos # (Auto) Baso # (Auto) Immature Gran # (Auto) Absolute Nucleated RBC Immature Gran % Nucleated RBC % APTT Sodium 151 H 149 H 151 H Potassium Chloride Carbon Dioxide Anion Gap BUN Creatinine Estim Creat Clear Calc eGFR BUN/Creatinine Ratio Glucose Calculated Osmolality Calcium Corrected Calcium Phosphorus Magnesium Total Bilirubin AST ALT Alkaline Phosphatase Total Protein Albumin Globulin Albumin/Globulin Ratio 08/05/25 08/05/25 08/05/25 05:19 13:45 13:50 WBC 14.7 H RBC 3.18 L Hgb 9.2 L Hct 32.0 L MCV 101 H MCH 28.9 MCHC 28.8 L RDW Std Deviation 61.6 H Plt Count 164 Neut % (Auto) 85 H Lymph % (Auto) 4 L [place] % (Auto) 6 Eos % (Auto) 0 Baso % (Auto) 0 Neut # (Auto) 12.5 H Lymph # (Auto) 0.5 L [place] # (Auto) 0.8 Eos # (Auto) 0.0 Baso # (Auto) 0.0 Immature Gran # (Auto) 0.84 H Absolute Nucleated RBC 0.06 H Immature Gran % 6 H Nucleated RBC % 0 APTT 56.7 H D Sodium 151 H 150 H Cancelled Potassium 4.2 Chloride 109 H Carbon Dioxide 35.4 H Anion Gap 7 BUN 21 Creatinine 0.9 Estim Creat Clear Calc 51.5 L eGFR > 60 BUN/Creatinine Ratio 23 H Glucose 178 H Calculated Osmolality 306 H Calcium 9.8 Corrected Calcium 10.4 H Phosphorus 2.2 L Magnesium 2.2 Total Bilirubin 0.4 AST 14 ALT 33 Alkaline Phosphatase 59 Total Protein 5.4 L Albumin 3.2 L Globulin 2.2 L Albumin/Globulin Ratio 1.5 Impressions Impression: Progressive dysphagia Acute hypoxic respiratory failure Continue current management ABG Interpretation ABG results: 08/01/25 08/01/25 08/02/25 02:15 09:05 12:15 ABG pH 7.25 L 7.30 L ABG pCO2 74 H* 66 H ABG pO2 62 L 84 D ABG HCO3 33 H 32 H ABG O2 Saturation 95 95 ABG Base Excess 4 H 4 H VBG pH 7.27 L VBG pCO2 63 H VBG pO2 Not Performed. VBG Base Excess 0 08/03/25 08/04/25 10:44 12:13 ABG pH 7.33 L 7.33 L ABG pCO2 64 H 69 H ABG pO2 88 85 ABG HCO3 34 H 36 H ABG O2 Saturation 95 95 ABG Base Excess 6 H 8 H VBG pH VBG pCO2 VBG pO2 VBG Base Excess Assessment & Plan A&P Narrative dnr status multiple listed allergies. prior id eval in may noted. abn ua in an 89 y/o lady with pos cx noted. not clear if she followed advice for vaginal estrogen in may. will review friday again and see if f/u cx also show yeast. ild hx noted with hypercapnea. confounding things a bit. is in house frequently on vanco/zosyn/micafungin and steroids. at most low grade temps soon after arrival. wbc may be related to steroids but is done popularly. nasal mrsa neg. so mrsa an unlikely player in pneumonia bc with coag neg and repeats appear to be neg for any staph. line placed rt chest approx 08/03 so is fast for yeast. echo neg so stopped vanco and left on micafungin and zosyn and will check in again friday am no cough noted. no notable fever but is on steriods. Time Spent With Patient Time: Total time spent is greater than 50% in coordination of care (as documented) at patient's floor/unit and/or counseling patient:
[2025-08-05] MEDS: PRAMIPEXOLE 0.25 MG TABLET 1 MG PO (20:59)
[2025-08-05] MEDS: ATORVASTATIN CALCIUM 10 MG TABLET PO (20:59)
[2025-08-05 21:17] LABS: Sodium 148 mMol/L (136-145)
[2025-08-06] VITALS (13 sets, daily range): BP systolic 128–169; BP diastolic 65–90; PULSE 80–91; RESP 8–32; TEMP 36–37.1; O2SAT 92–100; BMI 36.3
[2025-08-06] MEDS: Heparin/D5w 25K 250 ML Ivpb 25,000 UNIT/250 ML BAG 8.012 UNIT IV (05:15)
[2025-08-06] MEDS: PIPERACILLIN/TAZO 2.25GM INJ 2.25 GM in SODIUM CHLORIDE 0.9% (POP) 100 ML IV ×3 (05:16→17:15)
[2025-08-06 06:27] LABS: Basophils # (Auto) 0.0 Thou/mm3 (0.0-0.2); Basophils % (Auto) 0 % (0-2.5); Eosinophils # (Auto) 0.0 Thou/mm3 (0.0-0.5); Eosinophils % (Auto) 0 % (0-10); Hematocrit 30.7 % (36.0-46.0); Hemoglobin 8.8 g/dL (12.0-16.0); Immature Granulocytes Auto 1.46 Thou/mm3 (0.00-0.00); Lymphocytes # (Auto) 0.7 Thou/mm3 (1.0-4.8); Lymphocytes % (Auto) 5 % (10-50); Mean Corpuscular HGB Conc 28.7 g/dl (31.0-37.0); Mean Corpuscular Hemoglobin 28.7 pg (25.0-35.0); Mean Corpuscular Volume 100 fL (80-100); Monocytes # (Auto) 0.9 Thou/mm3 (0.0-0.8); Monocytes % (Auto) 6 % (0-12); Neutrophils # (Auto) 11.9 Thou/mm3 (1.8-7.7); Neutrophils % (Auto) 79 % (37-80); Nucleated Red Blood Cell # 0.15 Thou/mm3 (0.00-0.00); Nucleated Red Blood Cell % 1 /100 WBC (0); Platelet Count 177 Thou/mm3 (140-440); RDW Standard Deviation 60.2 fL (36.4-46.3); Red Blood Count 3.07 Miln/mm3 (4.00-5.20); White Blood Count 15.0 Thou/mm3 (3.6-11.0)
[2025-08-06 07:01] LABS: Partial Thromboplastin Time 53.5 Seconds (22.0-36.0)
[2025-08-06 08:41] LABS: Alanine Aminotransferase 40 U/L (10-49); Albumin, Serum 3.4 gm/dL (3.4-4.8); Albumin/Globulin Ratio 1.7 (1.2-2.2); Alkaline Phosphatase 60 U/L (46-116); Anion Gap 10 (7-16); Aspartate Amino Transferase 21 U/L (0-34); BUN/Creatinine Ratio 24 Ratio (12-20); Bilirubin,Total 0.4 mg/dL (0.3-1.2); Blood Urea Nitrogen 19 mg/dL (9-23); Calcium 9.6 mg/dL (8.3-10.6); Calcium (Corrected) 10.1 mg/dL (8.5-10.1); Carbon Dioxide 32.9 mMol/L (20.0-31.0); Chloride 107 mMol/L (98-107); Creatinine (Component) 0.8 mg/dL (0.6-1.3); Estimated Creatinine Clearance 58.4 mL/min (>60); Globulin 2.0 gm/dL (2.3-3.5); Glucose 111 mg/dL (74-106); Magnesium 1.9 mg/dL (1.6-2.6); Osmolality,Calculated 301 (275-295); Phosphorous 2.5 mg/dL (2.4-5.1); Potassium 4.1 mMol/L (3.4-5.1); Sodium 150 mMol/L (136-145); Total Protein 5.4 gm/dL (5.7-8.2); eGFR > 60 See Note
[2025-08-06] MEDS: INSULIN DEGLUDEC 5 UNIT/0.05 ML (PER 5 UNITS) 35 UNIT SC (09:29)
[2025-08-06] MEDS: VENLAFAXINE XR 37.5 MG CAPCR 150 MG PO (09:30)
[2025-08-06] MEDS: ASPIRIN 81 MG CHEW NG (09:30)
[2025-08-06] MEDS: PANTOPRAZOLE 40 MG TABLET PO (09:30)
[2025-08-06] MEDS: DIGOXIN INJ 0.25 MG/ML AMP 2 ML 0.125 MG IVP (09:33)
[2025-08-06] MEDS: POLYETHYLENE GLYCOL 17 GM PACKET PO (09:40)
--- NOTE | 2025-08-06 12:43 | PD.RESPRO ---
Documentation for date of: 08/06/25 Subjective Subjective Interval history: Patient seen and examined at bedside. Currently no complaints, looks euvolemic no indication for diuresis for now. Patient has NG tube intact getting free water flushes, patient has been n.p.o. since last 5 days has not been fed. Recommend following up with dietitian/GI regarding feeding. Otherwise heart rate well-controlled on diltiazem 10 mg/h and digoxin 0.125 mg every day. Patient on heparin drip. Transition to diltiazem 240 mg daily and digoxin 0.125 mg orally when able. Steroids being continued per pulmonology recommendations. Exam Vital Signs Temp Pulse Resp BP Pulse Ox O2 Del Method O2 Flow Rate 98.8 F 80 14 142/72 H 95 BiPAP 20 08/06/25 08:00 08/06/25 09:33 08/06/25 08:00 08/06/25 09:33 08/06/25 08:00 08/06/25 08:00 08/05/25 16:00 FiO2 35 08/06/25 08:00 Narrative Exam Physical Exam General: Chronically ill-appearing woman on BiPAP, obese habitus. HEENT: Normocephalic, atraumatic. Heart: Irregularly irregular, normal S1 and S2, no murmurs. Lungs: Mild wheezing bilateral. Abdomen: Obese, firm, distended, tender. No guarding or rebound tenderness. Neurologic: Alert and oriented x3, no gross neurological deficit, and patient able to move all 4 extremities. Extremities: No edema, clubbing or cyanosis. No joint deformity. Skin: Warm and dry without rashes. : Queen in place, draining yellow urine. Objective Labs 08/07/25 05:40 08/07/25 05:40 Labs: Laboratory Results - last 24 hr 08/05/25 08/05/25 08/05/25 13:45 13:50 20:51 WBC RBC Hgb Hct MCV MCH MCHC RDW Std Deviation Plt Count Neut % (Auto) Lymph % (Auto) [place] % (Auto) Eos % (Auto) Baso % (Auto) Neut # (Auto) Lymph # (Auto) [place] # (Auto) Eos # (Auto) Baso # (Auto) Immature Gran # (Auto) Absolute Nucleated RBC Immature Gran % Nucleated RBC % APTT Sodium 150 H Cancelled 148 H Potassium Chloride Carbon Dioxide Anion Gap BUN Creatinine Estim Creat Clear Calc eGFR BUN/Creatinine Ratio Glucose Calculated Osmolality Calcium Corrected Calcium Phosphorus Magnesium Total Bilirubin AST ALT Alkaline Phosphatase Total Protein Albumin Globulin Albumin/Globulin Ratio 08/06/25 05:05 WBC 15.0 H RBC 3.07 L Hgb 8.8 L Hct 30.7 L MCV 100 MCH 28.7 MCHC 28.7 L RDW Std Deviation 60.2 H Plt Count 177 Neut % (Auto) 79 Lymph % (Auto) 5 L [place] % (Auto) 6 Eos % (Auto) 0 Baso % (Auto) 0 Neut # (Auto) 11.9 H Lymph # (Auto) 0.7 L [place] # (Auto) 0.9 H Eos # (Auto) 0.0 Baso # (Auto) 0.0 Immature Gran # (Auto) 1.46 H Absolute Nucleated RBC 0.15 H Immature Gran % 10 H Nucleated RBC % 1 H APTT 53.5 H Sodium 150 H Potassium 4.1 Chloride 107 Carbon Dioxide 32.9 H Anion Gap 10 BUN 19 Creatinine 0.8 Estim Creat Clear Calc 58.4 L eGFR > 60 BUN/Creatinine Ratio 24 H Glucose 111 H D Calculated Osmolality 301 H Calcium 9.6 Corrected Calcium 10.1 Phosphorus 2.5 Magnesium 1.9 Total Bilirubin 0.4 AST 21 ALT 40 Alkaline Phosphatase 60 Total Protein 5.4 L Albumin 3.4 Globulin 2.0 L Albumin/Globulin Ratio 1.7 ABG Interpretation ABG results: 08/01/25 08/01/25 08/02/25 02:15 09:05 12:15 ABG pH 7.25 L 7.30 L ABG pCO2 74 H* 66 H ABG pO2 62 L 84 D ABG HCO3 33 H 32 H ABG O2 Saturation 95 95 ABG Base Excess 4 H 4 H VBG pH 7.27 L VBG pCO2 63 H VBG pO2 Not Performed. VBG Base Excess 0 08/03/25 08/04/25 10:44 12:13 ABG pH 7.33 L 7.33 L ABG pCO2 64 H 69 H ABG pO2 88 85 ABG HCO3 34 H 36 H ABG O2 Saturation 95 95 ABG Base Excess 6 H 8 H VBG pH VBG pCO2 VBG pO2 VBG Base Excess Quality Measures Quality Measures VTE prophylaxis Advance care planning discussed with:: patient Assessment & Plan Assessment Current Active Medications: Generic Name Dose Route Start Last Admin Trade Name Dashawnq PRN Reason Stop Dose Admin Acetaminophen 650 mg 08/01/25 05:05 Acetaminophen 325 Mg Tablet PO 08/31/25 05:04 Q6H PRN Fever >100.4 Aspirin 81 mg 08/05/25 11:30 08/06/25 09:30 Aspirin 81 Mg Chew NG 09/04/25 11:29 81 mg DAILY LISETTE Administration Atorvastatin Calcium 10 mg 08/01/25 21:00 08/05/25 20:59 Atorvastatin Calcium 10 Mg Tablet PO 08/31/25 20:59 10 mg HS LISTETE Administration Dextrose 25 ml 08/01/25 05:16 Dextrose 50%-Water Inj 50 Ml Syringe IV 08/31/25 05:15 Q15MIN PRN BG 50-70 responsive npo pt Dextrose 50 ml 08/01/25 05:16 Dextrose 50%-Water Inj 50 Ml Syringe IV 08/31/25 05:15 Q15MIN PRN BG <50 OR BG <70 & pt unresponsive Digoxin 0.125 mg 08/04/25 13:45 08/06/25 09:33 Digoxin Inj 0.25 Mg/Ml Amp 2 Ml IVP 09/03/25 13:44 0.125 mg QDAY LISETTE Administration Glucagon 1 mg 08/01/25 05:16 Glucagon Inj 1 Mg Vial IM Q15MIN PRN BG <70, and no IV access Piperacillin Sod/Tazobactam 100 mls @ 200 mls/hr 08/01/25 12:00 08/06/25 11:38 Sod 2.25 gm/ Sodium Chloride IV 08/08/25 11:59 200 mls/hr Q6HR LISETTE Administration Protocol Heparin Sodium/Dextrose 25,000 unit in 250 mls @ 10.093 mls/hr 08/02/25 14:00 08/06/25 07:15 Heparin In D5w Ivpb IV 08/16/25 13:59 7.7 units/kg/hr .Q24H LISETTE 8.012 mls/hr Protocol Titration 9.7 UNITS/KG/HR Diltiazem/Sodium Chloride 100 mg in 100 mls @ 10 mls/hr 08/04/25 09:33 08/06/25 10:56 Diltiazem In Ns 100 Mg IV 09/03/25 09:32 10 mg/hr .Q10H LISETTE 10 mls/hr 10 MG/HR Administration Insulin Degludec 35 unit 08/01/25 09:00 08/06/25 09:29 Insulin Degludec 5 Unit/0.05 Ml (Per 5 Units) SC 08/31/25 08:59 35 unit QDAY LISETTE Administration Insulin Human Lispro 0 unit 08/01/25 07:30 08/06/25 11:06 Insulin Lispro (Admelog) 1 Unit/0.01 Ml Unit SC 08/31/25 07:29 Not Given ACHS LISETTE Protocol Ipratropium [place] 0.5 mg 08/02/25 17:04 Ipratropium Rt 0.5 Mg/ 2.5 Ml Nebu INH 09/01/25 17:03 Q6HR PRN SHORTNESS OF BREATH Levalbuterol HCl 0.63 mg 08/02/25 17:04 Levalbuterol Rt 0.63 Mg/3 Ml Nebu INH 09/01/25 17:03 Q6H PRN WHEEZING Levothyroxine Sodium 70 mcg 08/02/25 09:00 08/06/25 09:30 Levothyroxine Inj 100 Mcg Vial IV 09/01/25 08:59 70 mcg QDAY LISETTE Administration Methylprednisolone Sodium Succinate 16 mg 08/02/25 09:00 08/06/25 09:38 Methylprednisolone Sod Succ 40 Mg/Ml Vial IVP 08/09/25 08:59 16 mg QDAY LISETTE Administration Pantoprazole Sodium 40 mg 08/06/25 09:00 08/06/25 09:30 Pantoprazole 40 Mg Tablet PO 09/05/25 08:59 40 mg QDAY LISETTE Administration Protocol Polyethylene Glycol 17 gm 08/01/25 09:00 08/06/25 09:40 Polyethylene Glycol 17 Gm Packet PO 08/31/25 08:59 17 gm DAILY LISETTE Administration Pramipexole Dihydrochloride 1 mg 08/01/25 21:00 08/05/25 20:59 Pramipexole 0.25 Mg Tablet PO 08/31/25 20:59 1 mg HS LISETTE Administration Sennosides 1 tab 08/01/25 09:00 08/06/25 09:30 Senna Tablet PO 08/31/25 08:59 1 tab QDAY LISETTE Administration Protocol Sodium Chloride 3 ml 08/01/25 02:11 Sodium Chloride Rt Sravani 0.9% 3 Ml Nebu INH 08/31/25 02:10 PRN PRN SOLN Venlafaxine HCl 150 mg 08/01/25 09:00 08/06/25 09:30 Venlafaxine Xr 37.5 Mg Capcr PO 08/31/25 08:59 150 mg DAILY LISETTE Administration Plan Ms. Coffman is a 89-year-old female with past medical history of ILD/pulmonary fibrosis/chronic hypersensitivity pneumonitis with chronic respiratory failure on 2 L home oxygen and BiPAP currently on steroid taper, pulmonary arterial hypertension, heart failure with preserved ejection fraction, EF 60-65%, chronically bedbound, recurrent MDR UTIs, hypothyroidism, right breast cancer status postlumpectomy with lymph node dissection, insulin-dependent type 2 diabetes mellitus, GERD, depression, chronic back pain and nephrolithiasis who presented to [facility] emergency department on 08/01/2025 with a chief complaint of hypoxia. Cardiology was consulted for management of new onset Afib on EKG. #New Onset A Fib with RVR Patient has SOB. Denies palpation or chest pain. EKG showed irregularly irregular rhythm rate 155 with RBBB. MAT ruled out. No history of atrial fibrillation CHADSVASc score 6 HASBLEED score 3. High Risk of major bleeding Was given diltiazem IV 20 mg x 1 and was started on diltiazem gtt. 5 mg/h which was increased to 10 mg/h as patient continued to remain tachycardic On August 03 patient was noted to be significantly tachycardic with low blood pressure, was given total IV digoxin 0.625 mg loading dose Plan: -Continue diltiazem drip 10mg/hr. transition to p.o. once able, start Cardizem 240 mg p.o. when able -Continue heparin drip, transition to oral Eliquis when no contraindications -On IV digoxin 0.125mg qd, transition to oral when no contraindications -Check digoxin level August 10 -Recommend Holter monitor outpatient to assess A fib burden. 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 Pulmonology notes reviewed. Patient steroid taper is being managed by resident clinic outpatient with recommendations from pulmonology remotely. Patient has had multiple admissions for hypercapnia, currently using BiPAP every night with [facility]. Patient does have history of heart failure, HFpEF with a EF 60 to 65%, never seen a director immunology outpatient, patient not on diuretics outpatient per resident clinic note as patient has chronic hypercapnia and diuresis causes contraction alkalosis causing further respiratory decompensation. CXR (08/02/2025): extensive bilateral lung opacity, Mild enlargement cardiac contour with significant vascular congestion on physical exam 1+ edema noted bilateral hips. Patient's underlying respiratory status and lieu of ILD flare/aspiration pneumonia ECHO (08/02/2025) showed: 1. Left ventricle size is normal and systolic function is normal. Estimated ejection fraction is 60-65%. There is indeterminate diastolic function due to afib. There is mild concentric hypertrophy noted. 2. Right ventricle is not well visualized. RV function appears normal. 3. There is mild aortic valve sclerosis with no stenosis. 4. Mild thickening of the mitral valve leaflets. Mild MR, mild MAC. Mild TR. 5. Normal IVC with estimated RA pressure 3 mmHg. 6. Prior study from 12/29/2024. Plan: -Hold diuresis now as patient does not have signs of fluid overload -Strict intake and output, daily weight -Fluid restriction 1500ml, cardiac diet -Keep magnesium greater than 2 and potassium greater than 4 at all times -Management of respiratory disease per primary team #?Pulmonary Hypertension, Group III #Hx of Interstitial Lung Disease - Patient has established diagnosis of interstitial lung disease, pulmonary fibrosis secondary to chronic hypersensitivity pneumonitis - Patient had echo in the past with elevated right-sided pressures suggestive of pulmonary hypertension - Chest CT (08/01/2025): Pulmonary artery hypertension, Severe pneumonia and/or edema throughout the lungs - Recommend outpatient workup for pulmonary hypertension Plan: -BiPAP prn -Duoneb prn -Steroid taper per pulmonology # Hypertension In ED, 155/80 blood pressure well-controlled -Continue diltiazem drip for now, transition to p.o. diltiazem 240 mg once able #Hypernatremia #Acute on chronic hypoxic hypercapnic respiratory failure, likely secondary to #Aspiration pneumonia #Sepsis #GPC bacteremia #Lactic acidosis #Leukocytosis #UTI #Insulin-dependent type 2 diabetes #Esophageal stenosis s/p dilation #Chronic normocytic anemia #Hyperlipidemia #Hypothyroidism #Chronic constipation #Depression #Parkinson -Management per Primary Hospitalist team Thank you for the consult and allowing to participate in the care of the patient. Cardiology will continue to follow. Case discussed with Attending Physician Dr. Steven Allen MD Internal Medicine PGY-2 Disclaimer: This note was dictated by speech recognition. Minor errors in quality rn may be present due to voice recognition software. Attending Provider Attestation/Addendum I have personally seen and examined the patient separately on the above date of service and discussed the plan of care with the resident. I reviewed the resident Dr. Doron Allen consultation progress note and agree with the resident findings and plan in the note above and have also edited the documentation to reflect my findings and plan. Steven Spencer M.D. Interventional Cardiology
--- NOTE | 2025-08-06 13:31 | ESPR_ITS ---
<Statement entered by Jeffry Eller MD - 08/06/25 14:07> In summary: 89-year-old female with extensive PMHx including chronic respiratory failure secondary to interstitial lung disease and pulmonary fibrosis (BiPAP dependent 2/2 chronic CO2 retention), currently on prolonged STEROID taper since last admission for acute hypoxic respiratory failure, HFpEF, hypothyroidism, right breast cancer s/p neurectomy, IDDM presented with hypoxemia respiratory acidosis in settings of aspiration pneumonia with elevated lactate and findings of bilateral pneumonia on CXR. She has Pseudomonas UTI for which she is on ZOSYN. 1/2 blood Cx grew Staph epidermidis (likely contaminant) and 1/2 blood cx grew yeast (unlikely, labs and current status do not reflect fungusemia). ID evaluated and recommended continue ZOSYN for now vs. LEVOQUIN. HR appears stable and cardiology is managing meds including DILTIAZEM, DIGOXIN and HEPARIN. She remain NPO and NGT was inserted for FWF for hypernatremia and meds. I spoke with GI and our only options is esophageal dilation vs PEG tube, both of which requires intubation and sedation. Pulmonology seem against this given her chronic lung disease and chronic BIPAP-dependency, unlikley will be safe extubation. I had an extensive discussion with Jg, the patient's nephew, about the care plan. I explained the need for esophageal dilation to address her persistent dysphagia, which is preventing her from tolerating oral intake. I outlined that the procedure would be performed under monitored anesthesia care (MAC), requiring intubation and anesthesia for the EGD. I also reviewed the high risks involved, as pulmonology has assessed her to be at high risk for complications due to her chronic pulmonary issues and dependence on BiPAP. I discussed the risks, benefits, and alternative options, such as hospice or palliative care. Jg understands the potential complications and has decided to proceed with the EGD under MAC, despite the elevated risks. I?ve reviewed the note and agree with this assessment and plan, with the exceptions outlined above. I personally went over the labs, imaging, home medications, and prior records, and examined the patient. The case was also reviewed with the attending physician. Please note: this document was transcribed using voice recognition technology; minor inaccuracies may be present. Jeffry Eller DO PGY II Documentation for date of: 08/06/25 Subjective Subjective Interval history: Patient seen and examined at bedside this morning. She is awake and able to nod yes/no but is limited in verbal communication due to BiPAP use. Denies chest pain. Reports ongoing shortness of breath when off BiPAP. Per nursing and respiratory therapy, patient was trialed on Oxymask at 7 L/min and was able to tolerate this for approximately 1.5 hours; however, she subsequently desaturated and required transition back to BiPAP. No new fevers or chills reported. Remains NPO and understands she is unable to eat or drink at this time. Family updated regarding current respiratory status and ongoing care plan. Exam Vital Signs Temp Pulse Resp BP Pulse Ox O2 Del Method O2 Flow Rate 98.8 F 91 31 H 142/72 H 99 BiPAP 20 08/06/25 08:00 08/06/25 13:21 08/06/25 13:21 08/06/25 09:33 08/06/25 13:21 08/06/25 08:00 08/05/25 16:00 FiO2 60 08/06/25 13:21 Narrative Exam Physical Exam General: Chronically ill-appearing woman on BiPAP, obese habitus. HEENT: Normocephalic, atraumatic. Heart: Regular rate and rhythm, normal S1 and S2, no murmurs. Lungs: Diffuse crackles bilaterally. Abdomen: Obese, firm, distended, tender. No guarding or rebound tenderness. Neurologic: Alert and oriented x3, no gross neurological deficit, and patient able to move all 4 extremities. Extremities: No edema, clubbing or cyanosis. No joint deformity. Skin: Warm and dry without rashes. : Queen in place, draining yellow urine. Objective Labs 08/06/25 05:05 08/06/25 05:05 Labs: Laboratory Results - last 24 hr 08/05/25 08/05/25 08/05/25 13:45 13:50 20:51 WBC RBC Hgb Hct MCV MCH MCHC RDW Std Deviation Plt Count Neut % (Auto) Lymph % (Auto) [place] % (Auto) Eos % (Auto) Baso % (Auto) Neut # (Auto) Lymph # (Auto) [place] # (Auto) Eos # (Auto) Baso # (Auto) Immature Gran # (Auto) Absolute Nucleated RBC Immature Gran % Nucleated RBC % APTT Sodium 150 H Cancelled 148 H Potassium Chloride Carbon Dioxide Anion Gap BUN Creatinine Estim Creat Clear Calc eGFR BUN/Creatinine Ratio Glucose Calculated Osmolality Calcium Corrected Calcium Phosphorus Magnesium Total Bilirubin AST ALT Alkaline Phosphatase Total Protein Albumin Globulin Albumin/Globulin Ratio 08/06/25 05:05 WBC 15.0 H RBC 3.07 L Hgb 8.8 L Hct 30.7 L MCV 100 MCH 28.7 MCHC 28.7 L RDW Std Deviation 60.2 H Plt Count 177 Neut % (Auto) 79 Lymph % (Auto) 5 L [place] % (Auto) 6 Eos % (Auto) 0 Baso % (Auto) 0 Neut # (Auto) 11.9 H Lymph # (Auto) 0.7 L [place] # (Auto) 0.9 H Eos # (Auto) 0.0 Baso # (Auto) 0.0 Immature Gran # (Auto) 1.46 H Absolute Nucleated RBC 0.15 H Immature Gran % 10 H Nucleated RBC % 1 H APTT 53.5 H Sodium 150 H Potassium 4.1 Chloride 107 Carbon Dioxide 32.9 H Anion Gap 10 BUN 19 Creatinine 0.8 Estim Creat Clear Calc 58.4 L eGFR > 60 BUN/Creatinine Ratio 24 H Glucose 111 H D Calculated Osmolality 301 H Calcium 9.6 Corrected Calcium 10.1 Phosphorus 2.5 Magnesium 1.9 Total Bilirubin 0.4 AST 21 ALT 40 Alkaline Phosphatase 60 Total Protein 5.4 L Albumin 3.4 Globulin 2.0 L Albumin/Globulin Ratio 1.7 ABG Interpretation ABG results: 08/01/25 08/01/25 08/02/25 02:15 09:05 12:15 ABG pH 7.25 L 7.30 L ABG pCO2 74 H* 66 H ABG pO2 62 L 84 D ABG HCO3 33 H 32 H ABG O2 Saturation 95 95 ABG Base Excess 4 H 4 H VBG pH 7.27 L VBG pCO2 63 H VBG pO2 Not Performed. VBG Base Excess 0 08/03/25 08/04/25 10:44 12:13 ABG pH 7.33 L 7.33 L ABG pCO2 64 H 69 H ABG pO2 88 85 ABG HCO3 34 H 36 H ABG O2 Saturation 95 95 ABG Base Excess 6 H 8 H VBG pH VBG pCO2 VBG pO2 VBG Base Excess Quality Measures Quality Measures VTE prophylaxis Advance care planning discussed with:: patient and other (Jg (Nephew)) Assessment & Plan Assessment Current Active Medications: Generic Name Dose Route Start Last Admin Trade Name Vy PRN Reason Stop Dose Admin Acetaminophen 650 mg 08/01/25 05:05 Acetaminophen 325 Mg Tablet PO 08/31/25 05:04 Q6H PRN Fever >100.4 Aspirin 81 mg 08/05/25 11:30 08/06/25 09:30 Aspirin 81 Mg Chew NG 09/04/25 11:29 81 mg DAILY LISETTE Administration Atorvastatin Calcium 10 mg 08/01/25 21:00 08/05/25 20:59 Atorvastatin Calcium 10 Mg Tablet PO 08/31/25 20:59 10 mg HS LISETTE Administration Dextrose 25 ml 08/01/25 05:16 Dextrose 50%-Water Inj 50 Ml Syringe IV 08/31/25 05:15 Q15MIN PRN BG 50-70 responsive npo pt Dextrose 50 ml 08/01/25 05:16 Dextrose 50%-Water Inj 50 Ml Syringe IV 08/31/25 05:15 Q15MIN PRN BG <50 OR BG <70 & pt unresponsive Digoxin 0.125 mg 08/04/25 13:45 08/06/25 09:33 Digoxin Inj 0.25 Mg/Ml Amp 2 Ml IVP 09/03/25 13:44 0.125 mg QDAY LISETTE Administration Glucagon 1 mg 08/01/25 05:16 Glucagon Inj 1 Mg Vial IM Q15MIN PRN BG <70, and no IV access Piperacillin Sod/Tazobactam 100 mls @ 200 mls/hr 08/01/25 12:00 08/06/25 11:38 Sod 2.25 gm/ Sodium Chloride IV 08/08/25 11:59 200 mls/hr Q6HR LISETTE Administration Protocol Heparin Sodium/Dextrose 25,000 unit in 250 mls @ 10.093 mls/hr 08/02/25 14:00 08/06/25 07:15 Heparin In D5w Ivpb IV 08/16/25 13:59 7.7 units/kg/hr .Q24H LISETTE 8.012 mls/hr Protocol Titration 9.7 UNITS/KG/HR Diltiazem/Sodium Chloride 100 mg in 100 mls @ 10 mls/hr 08/04/25 09:33 08/06/25 10:56 Diltiazem In Ns 100 Mg IV 09/03/25 09:32 10 mg/hr .Q10H LISETTE 10 mls/hr 10 MG/HR Administration Insulin Degludec 35 unit 08/01/25 09:00 08/06/25 09:29 Insulin Degludec 5 Unit/0.05 Ml (Per 5 Units) SC 08/31/25 08:59 35 unit QDAY LISETTE Administration Insulin Human Lispro 0 unit 08/01/25 07:30 08/06/25 11:06 Insulin Lispro (Admelog) 1 Unit/0.01 Ml Unit SC 08/31/25 07:29 Not Given ACHS LISETTE Protocol Ipratropium Dearing 0.5 mg 08/02/25 17:04 Ipratropium Rt 0.5 Mg/ 2.5 Ml Nebu INH 09/01/25 17:03 Q6HR PRN SHORTNESS OF BREATH Levalbuterol HCl 0.63 mg 08/02/25 17:04 Levalbuterol Rt 0.63 Mg/3 Ml Nebu INH 09/01/25 17:03 Q6H PRN WHEEZING Levothyroxine Sodium 70 mcg 08/02/25 09:00 08/06/25 09:30 Levothyroxine Inj 100 Mcg Vial IV 09/01/25 08:59 70 mcg QDAY LISETTE Administration Methylprednisolone Sodium Succinate 16 mg 08/02/25 09:00 08/06/25 09:38 Methylprednisolone Sod Succ 40 Mg/Ml Vial IVP 08/09/25 08:59 16 mg QDAY LISETTE Administration Pantoprazole Sodium 40 mg 08/06/25 09:00 08/06/25 09:30 Pantoprazole 40 Mg Tablet PO 09/05/25 08:59 40 mg QDAY LISETTE Administration Protocol Polyethylene Glycol 17 gm 08/01/25 09:00 08/06/25 09:40 Polyethylene Glycol 17 Gm Packet PO 08/31/25 08:59 17 gm DAILY LISETTE Administration Pramipexole Dihydrochloride 1 mg 08/01/25 21:00 08/05/25 20:59 Pramipexole 0.25 Mg Tablet PO 08/31/25 20:59 1 mg HS LISETTE Administration Sennosides 1 tab 08/01/25 09:00 08/06/25 09:30 Senna Tablet PO 08/31/25 08:59 1 tab QDAY LISETTE Administration Protocol Sodium Chloride 3 ml 08/01/25 02:11 Sodium Chloride Rt Sravani 0.9% 3 Ml Nebu INH 08/31/25 02:10 PRN PRN SOLN Venlafaxine HCl 150 mg 08/01/25 09:00 08/06/25 09:30 Venlafaxine Xr 37.5 Mg Capcr PO 08/31/25 08:59 150 mg DAILY LISETTE Administration Plan 89-year-old female with chronic ILD/pulmonary fibrosis with chronic CO2 retention on home BiPAP, HFpEF, IDDM, and esophageal stenosis, admitted for acute on chronic hypoxic hypercapnic respiratory failure secondary to aspiration pneumonia, complicated by sepsis from Pseudomonas UTI, new-onset atrial fibrillation with RVR, severe dysphagia requiring NPO status and NG tube, and limited respiratory reserve with inability to tolerate sustained wean from BiPAP. #Acute on chronic hypoxic hypercapnic respiratory failure, likely secondary to #Aspiration pneumonia #Pulmonary arterial hypertension #Interstitial lung disease #Pulmonary fibrosis - Known history of chronic interstitial lung disease and pulmonary fibrosis, contributing to chronic respiratory failure, chronic CO2 retention, and the need for BiPAP and home oxygen (2L). - Current acute exacerbation appears to be triggered by aspiration, likely exacerbated by recent intensified coughing after meals. The patient had worsening respiratory distress following dinner, with increasing cough and suspected aspiration of food. - Initial lactate was elevated at 2.4 --> 2.7 --> 2.3. Given the hypoxia and respiratory failure, the lactic acidosis may be due to tissue hypoperfusion and/or poor oxygenation. - Initial ABG showed pH 7.25, pCO2 74, pO2 62, bicarb 33, represents respiratory acidosis. - CXR 08/01: extensive bilateral pneumonia, prominent vascular congestion. - Patient is currently on a prednisone taper for ILD. - Patient failed ST swallow screen. - EGD and esophageal dilation on 02/08/25 for esophageal stenosis. - ABG 08/03: pH 7.33, pCO2 64, HCO3 34. Plan: * Pulmonology consulted, patient deemed high risk for intubation and prolonged ventilator dependence. * Continue strict NPO status and aspiration precautions. * Switched DuoNebs to Levalbuterol as patient is tachycardic. * Continuous pulse oximetry to closely monitor oxygen saturation. * Aspiration precautions. * Switched Prednisone 20mg PO QD to Methylprednisolone 16 mg IV QD as patient is NPO. Given the patient's history of interstitial lung disease, the steroid taper should proceed as planned, maintaining the current dose for 1 more week before reassessment. * Monitor for signs of worsening pneumonia or other complications. * Pulmonology has evaluated the patient and expressed concern that intubation for procedures may result in prolonged mechanical ventilation with high risk of inability to safely extubate, given chronic lung disease and BiPAP dependence. * Trial oxymask today (08/06) however patient desaturated after 1.5 hour, resumed BIPAP. #Sepsis #Staphylococcus epidermidis bacteremia #Pseudomonas aeruginosa UTI #Lactic acidosis #Leukocytosis - Etiology: Staphylococcus epidermidis bacteremia with suspected urinary tract infection as the source? - Lactate: 2.4 --> 2.7 --> 2.3. - WBC 23.2 on admission. - Blood culture 08/01: 2/2 GPC bacteremia. Staphylococcus epidermidis. - UA: 1+ protein, 44 RBC, 76 WBC, amorphous crystals, budding yeast, leukocyte esterase positive. Previous culture was positive for pansensitive Klebsiella Ozaenae. - Urine culture 08/01: Pseudomonas aeruginosa. Sensitive to Zosyn. - CXR: extensive bilateral pneumonia, prominent vascular congestion. - Fluids: 30 mL/kg, 2L of LR given in ED. - Blood culture 08/03: Yeast. Received one dose of Micafungin 50 mg. Plan: * Infectious Disease consulted, recommend continue Zosyn at this time vs transition to Levofloxacin. * Stop Vancomycin * No further antifungal therapy recommended after single dose of micafungin. * Zosyn 2.25 g every 8 hours for UTI (08/01-08/08). * Oxygen / Ventilation: BiPAP. * Renal: strict I&O, avoid nephrotoxins. * CBC/BMP daily or more frequent if unstable. * Monitor organ dysfunction resolution or progression. * Continue to monitor repeat blood cultures and clinical status. #Esophageal stenosis s/p dilation - s/p EGD with dilation for dysphagia secondary to esophageal stenosis on 02/08/2025. - GI recommended checking TSH and T4 to make sure patient is on adequate supplement as hypothyroidism can cause dysphagia. Both within normal range. - Persistent dysphagia is a major contributor to recurrent aspiration and respiratory failure. Plan: * Extensive [id number] discussion held with patient?s nephew, Jg, regarding risks, benefits, and alternatives to intervention, including hospice and palliative care. * Family understands the high risk of respiratory failure and prolonged intubation. * Family elects to proceed with EGD under monitored anesthesia care (MAC) despite elevated procedural risk. * Ongoing aspiration is suspected to be driven by severe dysphagia from esophageal stenosis, contributing to recurrent respiratory decompensation. * GI discussed that definitive options are limited to esophageal dilation or PEG tube placement, both of which require intubation and sedation. * Pulmonology has expressed concern that given the patient?s chronic pulmonary disease and BiPAP dependence, safe extubation following the procedure may not be possible. #New onset Atrial fibrillation with RVR - EKG on 08/02 showed irregularly irregular rhythm rate 155 with RBBB. - No history of atrial fibrillation. - CHADSVASc score 6. - HASBLEED score 3. High Risk of major bleeding. - Was given diltiazem IV 20 mg x 1 and was started on diltiazem gtt. 5 mg/h which was increased to 10 mg/h as patient continued to remain tachycardic. - Three doses of digoxin (0.25 mg x2, 0.125 mg x1) given on 08/03 for tachycardia. Plan: * Cardiology consulted - appreciate recs. * Heparin drip. * Diltiazem 10mg/hr drip. * IV digoxin 0.125 QD. * Keep potassium greater than 4 and magnesium greater than 2 at all times. #Hypernatremia #Hyperkalemia (resolved) - On admission, sodium 148 and potassium 5.2. - Likely secondary to decreased oral intake, lack of insulin, or hyperglycemia. - Patient received fluids in the ED and will start receiving insulin sliding scale. - Sodium continues to uptrend, peak at 153 on 08/04. - D5W given 08/04, sodium 153 --> 151. Plan: * NG tube placed. * Continue free water flushes at 250 cc per four hours for free water deficit of 1.9L. * Trend sodium levels Q6H. #NSTEMI - Likely secondary to demand ischemia. - Troponin of 0.051 --> 0.030. - EKG showed sinus tachycardia with a rate of 131 QTc 473, widened upright QRS in V1 may represent right bundle branch block, No acute ST segment changes in other leads Plan: * Continue to monitor for chest pain. #Insulin-dependent type 2 diabetes - Per caregiver the patient is on 35 units of Lantus every morning, sliding scale, and 8 units regular 3 times daily with meals. - Hemoglobin A1c 2 months ago was 6.4. - Glucose on admission was 241. Plan: * Insulin degludec 35 units QD. * Insulin sliding scale. * Carb consistent diet once patient passes swallow eval. #Chronic normocytic anemia - Hemoglobin 11.8, MCV 101. - Likely secondary to anemia of chronic disease secondary to history of breast cancer and interstitial lung disease. - No suspicion for active bleed at this time. Plan: * No direct intervention at this time. * Monitor CBC. #Chronic diastolic CHF, HFpEF - Echo from 12/2024 showed EF 65%. Trace mitral and trace tricuspid regurgitation, No wall motion abnormalities noted. - BNP 193. - CXR (08/02/2025): extensive bilateral lung opacity, Mild enlargement cardiac contour with significant vascular congestion on physical exam 1+ edema noted bilateral hips. - Patient's underlying respiratory status and lieu of ILD flare/aspiration pneumonia. - Echo 08/02/25: ejection fraction is 60-65%. Plan: * Strict I and Os. * Fluid restriction 1500ml. * Patient is not on diuretics outpatient because of chronic hypercapnia and diuresis can cause contraction alkalosis causing further respiratory decompensation. #Hyperlipidemia Plan: * Hold atorvastatin 10 mg nightly as patient is NPO. #Hypothyroidism - Home medication: Levothyroxine 100 mcg daily. Plan: * Levothyroxine 70 mcg IV QD as patient is NPO. #Chronic constipation - Per caregiver, the patient's last bowel movement was 07/30/2025. - Last bowel movement 08/03. - KUB 08/04: large amounts of stool throughout the colon. Plan: * Daily senna and MiraLAX. * Water edema ordered. #Depression Plan: * Hold home Venlafaxine 150 mg XR p.o. daily as patient is NPO. #Parkinson Plan: * Hold home pramipexole 1 mg nightly as patient is NPO. Health Maintenance Disposition: tele DVT prophylaxis: Heparin 5,000 U subQ GI prophylaxis: Pantoprazole 40 mg IV daily Diet: NPO Queen: In place Lines: Peripheral IV CODE STATUS: DNR/DNI --- Patient plan of care was discussed with the senior resident, Dr. Eller, and attending physician, Dr. Gonzalez. Eugene Valente DO PGY-1 Attending Provider Attestation/Addendum Kaylynn Núñez DO, attest that I was physically present for the mackenzie portions of the service and evaluated the patient with the resident and I reviewed and discussed the case with the resident and agree with the resident's findings and plans of care as documented above Patient seen and evaluated this AM. Case discussed with pulmonology who was able to place patient on oxymask of 6L. She was saturating 94%, but stated that she felt short of breath. Repositioned patient to seated position who stated she felt improved. However, later required to be placed back on BiPap. Patient is A&Ox3. Explained to patient her course of hospitalization and current condition. She is understanding of her ILD leading to her frequent hospitalizations and CO2 retention. She has been BiPap dependent, which has been the barrier for patient to further undergo GI intervention. Patient has required dilatation of her esophageal strictures in the past, which she will need again at this time due to her difficulty swallowing and aspiration. Patient currently requiring NG tube in order placed for free water flushes to decrease sodium level given hypernatremia. Patient states that she is hungry but understanding that she is unable to eat since she has been on the BiPAP throughout course of hospitalization and risk of aspiration. Upon discussion of requirement of generalized anesthesia for GI intervention and high risk of difficulty weaning off mechanical ventilation, patient was agreeable to undergoing anesthesia given the risks. She also stated that her nephew Jg would aid in her decision making. Dr. Eller had spoken to Jg over the phone who is also understanding of the risks versus the benefits of the procedures. Knowing the risks of possible difficulty weaning off mechanical ventilation given her ILD, he is also agreeable for patient to further undergo EGD and dilatation of the esophagus. Will continue to wean patient off BiPAP if possible. Discussed with GI regarding patient and family's decision.
[2025-08-06 14:51] LABS: Path Review Blood Smear Sent to Pathologist
--- NOTE | 2025-08-06 16:08 | PD.RESPRO ---
Documentation for date of: 08/06/25 Exam Vital Signs Temp Pulse Resp BP Pulse Ox O2 Del Method O2 Flow Rate 97.1 F 91 31 H 169/72 H 99 Oxy Mask 7 08/06/25 12:00 08/06/25 13:21 08/06/25 13:21 08/06/25 12:00 08/06/25 13:21 08/06/25 12:00 08/06/25 12:00 FiO2 60 08/06/25 13:21 Objective Labs 08/06/25 05:05 08/06/25 05:05 Labs: Laboratory Results - last 24 hr 08/05/25 08/06/25 20:51 05:05 WBC 15.0 H RBC 3.07 L Hgb 8.8 L Hct 30.7 L MCV 100 MCH 28.7 MCHC 28.7 L RDW Std Deviation 60.2 H Plt Count 177 Neut % (Auto) 79 Lymph % (Auto) 5 L [place] % (Auto) 6 Eos % (Auto) 0 Baso % (Auto) 0 Neut # (Auto) 11.9 H Lymph # (Auto) 0.7 L [place] # (Auto) 0.9 H Eos # (Auto) 0.0 Baso # (Auto) 0.0 Immature Gran # (Auto) 1.46 H Absolute Nucleated RBC 0.15 H Immature Gran % 10 H Nucleated RBC % 1 H Smear Path Review Sent to Pathologist APTT 53.5 H Sodium 148 H 150 H Potassium 4.1 Chloride 107 Carbon Dioxide 32.9 H Anion Gap 10 BUN 19 Creatinine 0.8 Estim Creat Clear Calc 58.4 L eGFR > 60 BUN/Creatinine Ratio 24 H Glucose 111 H D Calculated Osmolality 301 H Calcium 9.6 Corrected Calcium 10.1 Phosphorus 2.5 Magnesium 1.9 Total Bilirubin 0.4 AST 21 ALT 40 Alkaline Phosphatase 60 Total Protein 5.4 L Albumin 3.4 Globulin 2.0 L Albumin/Globulin Ratio 1.7 ABG Interpretation ABG results: 08/01/25 08/01/25 08/02/25 02:15 09:05 12:15 ABG pH 7.25 L 7.30 L ABG pCO2 74 H* 66 H ABG pO2 62 L 84 D ABG HCO3 33 H 32 H ABG O2 Saturation 95 95 ABG Base Excess 4 H 4 H VBG pH 7.27 L VBG pCO2 63 H VBG pO2 Not Performed. VBG Base Excess 0 08/03/25 08/04/25 10:44 12:13 ABG pH 7.33 L 7.33 L ABG pCO2 64 H 69 H ABG pO2 88 85 ABG HCO3 34 H 36 H ABG O2 Saturation 95 95 ABG Base Excess 6 H 8 H VBG pH VBG pCO2 VBG pO2 VBG Base Excess Quality Measures Quality Measures VTE prophylaxis Assessment & Plan Assessment Current Active Medications: Generic Name Dose Route Start Last Admin Trade Name Freq PRN Reason Stop Dose Admin Acetaminophen 650 mg 08/01/25 05:05 Acetaminophen 325 Mg Tablet PO 08/31/25 05:04 Q6H PRN Fever >100.4 Aspirin 81 mg 08/05/25 11:30 08/06/25 09:30 Aspirin 81 Mg Chew NG 09/04/25 11:29 81 mg DAILY LISETTE Administration Atorvastatin Calcium 10 mg 08/01/25 21:00 08/05/25 20:59 Atorvastatin Calcium 10 Mg Tablet PO 08/31/25 20:59 10 mg HS LISETTE Administration Dextrose 25 ml 08/01/25 05:16 Dextrose 50%-Water Inj 50 Ml Syringe IV 08/31/25 05:15 Q15MIN PRN BG 50-70 responsive npo pt Dextrose 50 ml 08/01/25 05:16 Dextrose 50%-Water Inj 50 Ml Syringe IV 08/31/25 05:15 Q15MIN PRN BG <50 OR BG <70 & pt unresponsive Digoxin 0.125 mg 08/04/25 13:45 08/06/25 09:33 Digoxin Inj 0.25 Mg/Ml Amp 2 Ml IVP 09/03/25 13:44 0.125 mg QDAY LISETTE Administration Glucagon 1 mg 08/01/25 05:16 Glucagon Inj 1 Mg Vial IM Q15MIN PRN BG <70, and no IV access Piperacillin Sod/Tazobactam 100 mls @ 200 mls/hr 08/01/25 12:00 08/06/25 11:38 Sod 2.25 gm/ Sodium Chloride IV 08/08/25 11:59 200 mls/hr Q6HR LISETTE Administration Protocol Heparin Sodium/Dextrose 25,000 unit in 250 mls @ 10.093 mls/hr 08/02/25 14:00 08/06/25 07:15 Heparin In D5w Ivpb IV 08/16/25 13:59 7.7 units/kg/hr .Q24H LISETTE 8.012 mls/hr Protocol Titration 9.7 UNITS/KG/HR Diltiazem/Sodium Chloride 100 mg in 100 mls @ 10 mls/hr 08/04/25 09:33 08/06/25 10:56 Diltiazem In Ns 100 Mg IV 09/03/25 09:32 10 mg/hr .Q10H LISETTE 10 mls/hr 10 MG/HR Administration Insulin Degludec 35 unit 08/01/25 09:00 08/06/25 09:29 Insulin Degludec 5 Unit/0.05 Ml (Per 5 Units) SC 08/31/25 08:59 35 unit QDAY LISETTE Administration Insulin Human Lispro 0 unit 08/01/25 07:30 08/06/25 11:06 Insulin Lispro (Admelog) 1 Unit/0.01 Ml Unit SC 08/31/25 07:29 Not Given ACHS [facility] Protocol Ipratropium [place] 0.5 mg 08/02/25 17:04 Ipratropium Rt 0.5 Mg/ 2.5 Ml Nebu INH 09/01/25 17:03 Q6HR PRN SHORTNESS OF BREATH Levalbuterol HCl 0.63 mg 08/02/25 17:04 Levalbuterol Rt 0.63 Mg/3 Ml Nebu INH 09/01/25 17:03 Q6H PRN WHEEZING Levothyroxine Sodium 70 mcg 08/02/25 09:00 08/06/25 09:30 Levothyroxine Inj 100 Mcg Vial IV 09/01/25 08:59 70 mcg QDAY LISETTE Administration Methylprednisolone Sodium Succinate 16 mg 08/02/25 09:00 08/06/25 09:38 Methylprednisolone Sod Succ 40 Mg/Ml Vial IVP 08/09/25 08:59 16 mg QDAY LISETTE Administration Pantoprazole Sodium 40 mg 08/06/25 09:00 08/06/25 09:30 Pantoprazole 40 Mg Tablet PO 09/05/25 08:59 40 mg QDAY LISETTE Administration Protocol Polyethylene Glycol 17 gm 08/01/25 09:00 08/06/25 09:40 Polyethylene Glycol 17 Gm Packet PO 08/31/25 08:59 17 gm DAILY LISETTE Administration Pramipexole Dihydrochloride 1 mg 08/01/25 21:00 08/05/25 20:59 Pramipexole 0.25 Mg Tablet PO 08/31/25 20:59 1 mg HS LISETTE Administration Sennosides 1 tab 08/01/25 09:00 08/06/25 09:30 Senna Tablet PO 08/31/25 08:59 1 tab QDAY LISETTE Administration Protocol Sodium Chloride 3 ml 08/01/25 02:11 Sodium Chloride Rt Sravani 0.9% 3 Ml Nebu INH 08/31/25 02:10 PRN PRN SOLN Venlafaxine HCl 150 mg 08/01/25 09:00 08/06/25 09:30 Venlafaxine Xr 37.5 Mg Capcr PO 08/31/25 08:59 150 mg DAILY LISETTE Administration
--- NOTE | 2025-08-06 19:59 | ESPR_ITS ---
Documentation for date of: 08/06/25 Subjective Subjective Interval history: Long discussion with the internal medicine resident team They have spoken with the family and they have agreed for a endotracheal intubation for the procedure to placement of the PEG tube for long-term nutritional support As patient is on BiPAP and the procedures cannot be done Exam Vital Signs Temp Pulse Resp BP Pulse Ox O2 Del Method O2 Flow Rate 98.6 F 85 24 H 153/71 H 100 BiPAP 7 08/06/25 16:00 08/06/25 19:04 08/06/25 19:04 08/06/25 16:00 08/06/25 19:04 08/06/25 16:00 08/06/25 12:00 FiO2 55 08/06/25 19:04 Objective Labs 08/06/25 05:05 08/06/25 05:05 Labs: Laboratory Results - last 24 hr 08/05/25 08/06/25 20:51 05:05 WBC 15.0 H RBC 3.07 L Hgb 8.8 L Hct 30.7 L MCV 100 MCH 28.7 MCHC 28.7 L RDW Std Deviation 60.2 H Plt Count 177 Neut % (Auto) 79 Lymph % (Auto) 5 L [place] % (Auto) 6 Eos % (Auto) 0 Baso % (Auto) 0 Neut # (Auto) 11.9 H Lymph # (Auto) 0.7 L [place] # (Auto) 0.9 H Eos # (Auto) 0.0 Baso # (Auto) 0.0 Immature Gran # (Auto) 1.46 H Absolute Nucleated RBC 0.15 H Immature Gran % 10 H Nucleated RBC % 1 H Smear Path Review Sent to Pathologist APTT 53.5 H Sodium 148 H 150 H Potassium 4.1 Chloride 107 Carbon Dioxide 32.9 H Anion Gap 10 BUN 19 Creatinine 0.8 Estim Creat Clear Calc 58.4 L eGFR > 60 BUN/Creatinine Ratio 24 H Glucose 111 H D Calculated Osmolality 301 H Calcium 9.6 Corrected Calcium 10.1 Phosphorus 2.5 Magnesium 1.9 Total Bilirubin 0.4 AST 21 ALT 40 Alkaline Phosphatase 60 Total Protein 5.4 L Albumin 3.4 Globulin 2.0 L Albumin/Globulin Ratio 1.7 Impressions Impression: Failure to thrive Dysphagia Plan Coordination with the sports marketing specialist and MAC sedation procedure tentatively scheduled for tomorrow ABG Interpretation ABG results: 1208/01/25 08/02/25 02:15 09:05 12:15 ABG pH 7.25 L 7.30 L ABG pCO2 74 H* 66 H ABG pO2 62 L 84 D ABG HCO3 33 H 32 H ABG O2 Saturation 95 95 ABG Base Excess 4 H 4 H VBG pH 7.27 L VBG pCO2 63 H VBG pO2 Not Performed. VBG Base Excess 0 08/03/25 08/04/25 10:44 12:13 ABG pH 7.33 L 7.33 L ABG pCO2 64 H 69 H ABG pO2 88 85 ABG HCO3 34 H 36 H ABG O2 Saturation 95 95 ABG Base Excess 6 H 8 H VBG pH VBG pCO2 VBG pO2 VBG Base Excess Assessment & Plan A&P Narrative dnr status multiple listed allergies. prior id eval in may noted. abn ua in an 89 y/o lady with pos cx noted. not clear if she followed advice for vaginal estrogen in may. will review friday again and see if f/u cx also show yeast. ild hx noted with hypercapnea. confounding things a bit. is in house frequently on vanco/zosyn/micafungin and steroids. at most low grade temps soon after arrival. wbc may be related to steroids but is done popularly. nasal mrsa neg. so mrsa an unlikely player in pneumonia bc with coag neg and repeats appear to be neg for any staph. line placed rt chest approx 08/03 so is fast for yeast. echo neg so stopped vanco and left on micafungin and zosyn and will check in again friday am no cough noted. no notable fever but is on steriods. Time Spent With Patient Time: Total time spent is greater than 50% in coordination of care (as documented) at patient's floor/unit and/or counseling patient:
[2025-08-06 20:18] LABS: Sodium 143 mMol/L (136-145)
[2025-08-06] MEDS: Magnesium Sulfate 4 GM Ivpb 4 GM/50 ML BAG IV (21:00)
[2025-08-06] MEDS: PRAMIPEXOLE 0.25 MG TABLET 1 MG PO (21:00)
[2025-08-06] MEDS: ATORVASTATIN CALCIUM 10 MG TABLET PO (21:01)
[2025-08-07] VITALS (12 sets, daily range): BP systolic 119–169; BP diastolic 46–67; PULSE 77–85; RESP 8–28; TEMP 36.1–36.5; O2SAT 94–99; BMI 37.5
[2025-08-07] MEDS: PIPERACILLIN/TAZO 2.25GM INJ 2.25 GM in SODIUM CHLORIDE 0.9% (POP) 100 ML IV ×5 (00:26→23:50)
[2025-08-07 06:09] LABS: Basophils # (Auto) 0.0 Thou/mm3 (0.0-0.2); Basophils % (Auto) 0 % (0-2.5); Eosinophils # (Auto) 0.0 Thou/mm3 (0.0-0.5); Eosinophils % (Auto) 0 % (0-10); Hematocrit 30.7 % (36.0-46.0); Hemoglobin 9.2 g/dL (12.0-16.0); Immature Granulocytes Auto 1.88 Thou/mm3 (0.00-0.00); Lymphocytes # (Auto) 0.9 Thou/mm3 (1.0-4.8); Lymphocytes % (Auto) 6 % (10-50); Mean Corpuscular HGB Conc 30.0 g/dl (31.0-37.0); Mean Corpuscular Hemoglobin 29.4 pg (25.0-35.0); Mean Corpuscular Volume 98 fL (80-100); Monocytes # (Auto) 0.8 Thou/mm3 (0.0-0.8); Monocytes % (Auto) 6 % (0-12); Neutrophils # (Auto) 10.2 Thou/mm3 (1.8-7.7); Neutrophils % (Auto) 74 % (37-80); Nucleated Red Blood Cell # 0.17 Thou/mm3 (0.00-0.00); Nucleated Red Blood Cell % 1 /100 WBC (0); Platelet Count 174 Thou/mm3 (140-440); RDW Standard Deviation 58.2 fL (36.4-46.3); Red Blood Count 3.13 Miln/mm3 (4.00-5.20); White Blood Count 13.7 Thou/mm3 (3.6-11.0)
[2025-08-07 06:31] LABS: Partial Thromboplastin Time 43.1 Seconds (22.0-36.0)
[2025-08-07 06:56] LABS: Alanine Aminotransferase 55 U/L (10-49); Albumin, Serum 3.2 gm/dL (3.4-4.8); Albumin/Globulin Ratio 1.5 (1.2-2.2); Alkaline Phosphatase 60 U/L (46-116); Anion Gap 7 (7-16); Aspartate Amino Transferase 27 U/L (0-34); BUN/Creatinine Ratio 19 Ratio (12-20); Bilirubin,Total 0.4 mg/dL (0.3-1.2); Blood Urea Nitrogen 15 mg/dL (9-23); Calcium 9.8 mg/dL (8.3-10.6); Calcium (Corrected) 10.4 mg/dL (8.5-10.1); Carbon Dioxide 34.7 mMol/L (20.0-31.0); Chloride 102 mMol/L (98-107); Creatinine (Component) 0.8 mg/dL (0.6-1.3); Estimated Creatinine Clearance 59.5 mL/min (>60); Globulin 2.2 gm/dL (2.3-3.5); Glucose 79 mg/dL (74-106); Magnesium 2.4 mg/dL (1.6-2.6); Osmolality,Calculated 286 (275-295); Phosphorous 3.4 mg/dL (2.4-5.1); Potassium 4.3 mMol/L (3.4-5.1); Sodium 144 mMol/L (136-145); Total Protein 5.4 gm/dL (5.7-8.2); eGFR > 60 See Note
[2025-08-07] MEDS: HEPARIN SOD INJ 5000 UNIT/ML VIAL 2000 UNIT IV (08:32)
[2025-08-07] MEDS: DEXTROSE 50%-WATER INJ 50 ML SYRINGE 25 ML IV (08:37)
[2025-08-07] MEDS: DIGOXIN INJ 0.25 MG/ML AMP 2 ML 0.125 MG IVP (09:52)
--- NOTE | 2025-08-07 10:03 | ESPR_ITS ---
<Statement entered by John Paul Warren MD - 08/11/25 09:15> I reviewed above note and agree with findings and plans. I have also personally examined the patient with medicine team and went over assessment and plan with medical team including senior insight manager international and resident physician. <Statement entered by Jeffry Eller MD - 08/07/25 19:02> In summary: 89-year-old female with extensive PMHx including chronic respiratory failure secondary to interstitial lung disease and pulmonary fibrosis (BiPAP dependent 2/2 chronic CO2 retention), currently on prolonged STEROID taper since last admission for acute hypoxic respiratory failure, HFpEF, hypothyroidism, right breast cancer s/p neurectomy, IDDM presented with hypoxemia respiratory acidosis in settings of aspiration pneumonia with elevated lactate and findings of bilateral pneumonia on CXR. She has Pseudomonas UTI for which she is on ZOSYN. 1/2 blood Cx grew Staph epidermidis (likely contaminant) and 1/2 blood cx grew yeast (unlikely, labs and current status do not reflect fungusemia). ID evaluated and recommended continue ZOSYN for now vs. LEVOQUIN. HR continues to be stable and cardiology is managing meds including DILTIAZEM, DIGOXIN and HEPARIN. Will follow up with DIGOXIN level on 08/03/2025. She remain NPO and NGT was inserted for FWF for hypernatremia and meds. I spoke with GI and our only options is esophageal dilation vs PEG tube, both of which requires intubation and sedation and are currently pending. I?ve reviewed the note and agree with this assessment and plan, with the exceptions outlined above. I personally went over the labs, imaging, home medications, and prior records, and examined the patient. The case was also reviewed with the attending physician. Please note: this document was transcribed using voice recognition technology; minor inaccuracies may be present. Jeffry Eller DO PGY II Documentation for date of: 08/07/25 Subjective Subjective Interval history: 89-year-old female past medical history of interstitial lung disease, pulmonary fibrosis, chronic CO2 retention on 2 L home oxygen and BiPAP, HFpEF, bedbound, recurrent UTIs, hypothyroidism, right breast cancer status postlumpectomy, insulin-dependent type 2 diabetes, GERD, depression, and chronic back pain who presented to the ED in the technical operator hours of 08/01/2025 with hypoxemia. Patient was on BiPAP and most history was gathered from the caregiver. Per the caregiver, patient ate lunch the day before and began to have coughing episodes. These episodes were intensified after the patient ate half of her dinner, at which time the caregiver took away the patient's food. Caregiver mentioned that the patient was coughing up phlegm with no food particles, and was concerned for aspiration and therefore called EMS. When the ambulance arrived it was reported that the patient was saturating in the high 30s. Per EMS the patient was saturating at 68% on 2 L nasal cannula and went up to the mid 80s after 2 albuterol treatments and route. Patient was admitted for acute on chronic hypoxic hypercapnic respiratory failure secondary to interstitial lung disease and possible aspiration pneumonia as well as UTI. 08/01/25: Patient was evaluated this morning with geothermal system installer present at the bedside. Patient is currently on BIPAP with a flow rate of 40, saturating at 93%. The patient is alert and oriented to person, place, and year, and reports no complaints at this time. Per geothermal system installer, patient has had several hospitalizations due to similar symptoms of shortness of breath and asymptomatic recurrent UTIs. Blood culture came back positive for gram positive cocci resembling staph in one of the bottles - started Vancomycin. 08/02/25: No acute events overnight. The patient was evaluated at the bedside this morning and was on BIPAP at 40%. Blood cultures from both bottles returned positive for gram-positive cocci, and vancomycin was initiated. An echocardiogram has been ordered and pending. Patient did not pass swallow screen yesterday. Speech therapy assessed the patient this morning and noted audible air after every swallow, followed by regurgitation that persisted for 15 minutes. The patient required oral suction with strong coughing. Desaturation occurred, dropping to 85%, accompanied by an elevated heart rate. As a result, the patient was placed NPO, and respiratory therapy was called for deep suctioning and to place the patient on high-flow oxygen. An ABG, CXR, and EKG were ordered. The CXR revealed significant bilateral pneumonia with an ARDS pattern, while the EKG showed atrial fibrillation with rapid ventricular response. On 02/08/25, the patient was seen by Dr. Peters for esophageal dilation of esophageal stenosis, and Dr. Peters has been consulted. Due to difficulty establishing IV access, plan to place central line. The patient requires heparin and diltiazem infusions for the atrial fibrillation with RVR. Cardiology has been consulted. 08/03/25: No acute events overnight. The patient was assessed at the bedside this morning. Initially on HFNC, the patient was weaned off and transitioned to BiPAP. A central line was placed today due to difficulty with IV access. Urine culture preliminary results show gram-negative rods, Zosyn will be continued. 2/ blood culture was positive for Staphylococcus epidermidis, will repeat blood cultures and continue Vancomycin. The heart rate remains elevated despite diltiazem 10 mg and two doses of digoxin (0.25 mg x1, 0.125 mg x1), with no significant improvement in heart rate. Further recommendations are pending from cardiology. 08/04/25: No significant events overnight. The patient was seen this morning with the geothermal system installer at the bedside. Will speak with Dr. Jerez regarding the management of the patient's respiratory status, as he has been overseeing her care as her locomotive inspector. The patient is currently receiving methylprednisolone 16 mg IV and continues on BIPAP. Hypernatremia was noted on AM labs, and D5W was administered since the patient is on BIPAP and NPO, with an inability to place an NG tube for free water flushes. Will continue to trend sodium. Dr. Peters will perform an EGD once the patient's respiratory condition stabilizes. Cardiology is actively following the patient and will continue diltiazem and heparin drip for afib. Tachycardia has resolved. A KUB was ordered due to the patient's complaints of abdominal pain, which revealed a large stool burden. The patient's last bowel movement was yesterday. A water enema has been ordered. 08/05/25: No acute events overnight. A repeat blood culture grew 1/2 yeast, and the patient was given one dose of Micafungin. Infectious Disease was consulted. The patient remains hypernatremic following D5W administration yesterday. An NG tube will be placed to initiate free water flushes, with a free water deficit of 1.9L to reach a sodium goal of 145. Water flushes will be administered at 250cc every four hours. Sodium levels will continue to be monitored every 6 hours. Phosphate has been repleted. The patient remains on BiPAP, and Dr. Jerez recommends continuing steroids for lung support. 08/06/25: Patient seen and examined at bedside this morning. She is awake and able to nod yes/no but is limited in verbal communication due to BiPAP use. Denies chest pain. Reports ongoing shortness of breath when off BiPAP. Per nursing and respiratory therapy, patient was trialed on Oxymask at 7 L/min and was able to tolerate this for approximately 1.5 hours; however, she subsequently desaturated and required transition back to BiPAP. No new fevers or chills reported. Remains NPO and understands she is unable to eat or drink at this time. Family updated regarding current respiratory status and ongoing care plan. 08/07/25: NAOE. Plan for EGD with PEG tube today for care home nutritional support. Discussed with lead pet care worker at beside that there's a possibility that patient may require stay in the ICU if she cannot be safely extubated after general anesthesia. Na level stable at 144. Patient requires to be on BiPAP all the time at this point. Exam Vital Signs Temp Pulse Resp BP Pulse Ox O2 Del Method O2 Flow Rate 97.6 F 79 19 119/51 L 95 BiPAP 7 08/07/25 08:00 08/07/25 09:52 08/07/25 08:00 08/07/25 09:52 08/07/25 08:00 08/07/25 08:00 08/06/25 12:00 FiO2 45 08/07/25 07:05 Narrative Exam General: Alert, oriented, on BiPAP. BMI 37 HEENT: Normocephalic, atraumatic. Neck: Supple. Thick. Cardiovascular: Regular rate and rhythm. Respiratory: Crackles to all lung zones. Abdomen: Soft, nontender, but distended. Objective Labs 08/07/25 05:40 08/07/25 05:40 Labs: Laboratory Results - last 24 hr 08/06/25 08/06/25 08/07/25 05:05 19:39 05:40 WBC 13.7 H RBC 3.13 L Hgb 9.2 L Hct 30.7 L MCV 98 MCH 29.4 MCHC 30.0 L RDW Std Deviation 58.2 H Plt Count 174 Neut % (Auto) 74 Lymph % (Auto) 6 L Mower % (Auto) 6 Eos % (Auto) 0 Baso % (Auto) 0 Neut # (Auto) 10.2 H Lymph # (Auto) 0.9 L Mower # (Auto) 0.8 Eos # (Auto) 0.0 Baso # (Auto) 0.0 Immature Gran # (Auto) 1.88 H Absolute Nucleated RBC 0.17 H Immature Gran % 14 H Nucleated RBC % 1 H Smear Path Review Sent to Pathologist APTT 43.1 H D Sodium 143 144 Potassium 4.3 Chloride 102 Carbon Dioxide 34.7 H Anion Gap 7 BUN 15 Creatinine 0.8 Estim Creat Clear Calc 59.5 L eGFR > 60 BUN/Creatinine Ratio 19 Glucose 79 Calculated Osmolality 286 Calcium 9.8 Corrected Calcium 10.4 H Phosphorus 3.4 Magnesium 2.4 Total Bilirubin 0.4 AST 27 ALT 55 H Alkaline Phosphatase 60 Total Protein 5.4 L Albumin 3.2 L Globulin 2.2 L Albumin/Globulin Ratio 1.5 ABG Interpretation ABG results: 08/01/25 08/01/25 08/02/25 02:15 09:05 12:15 ABG pH 7.25 L 7.30 L ABG pCO2 74 H* 66 H ABG pO2 62 L 84 D ABG HCO3 33 H 32 H ABG O2 Saturation 95 95 ABG Base Excess 4 H 4 H VBG pH 7.27 L VBG pCO2 63 H VBG pO2 Not Performed. VBG Base Excess 0 08/03/25 08/04/25 10:44 12:13 ABG pH 7.33 L 7.33 L ABG pCO2 64 H 69 H ABG pO2 88 85 ABG HCO3 34 H 36 H ABG O2 Saturation 95 95 ABG Base Excess 6 H 8 H VBG pH VBG pCO2 VBG pO2 VBG Base Excess Quality Measures Quality Measures VTE prophylaxis Advance care planning discussed with:: patient and other (leather case finisher) Assessment & Plan Assessment Current Active Medications: Generic Name Dose Route Start Last Admin Trade Name Freq PRN Reason Stop Dose Admin Acetaminophen 650 mg 08/01/25 05:05 Acetaminophen 325 Mg Tablet PO 08/31/25 05:04 Q6H PRN Fever >100.4 Aspirin 81 mg 08/05/25 11:30 08/07/25 09:48 Aspirin 81 Mg Chew NG 09/04/25 11:29 Not Given DAILY LISETTE Atorvastatin Calcium 10 mg 08/01/25 21:00 08/06/25 21:01 Atorvastatin Calcium 10 Mg Tablet PO 08/31/25 20:59 10 mg HS LISETTE Administration Dextrose 25 ml 08/01/25 05:16 12/21/25 08:37 Dextrose 50%-Water Inj 50 Ml Syringe IV 08/31/25 05:15 25 ml Q15MIN PRN Administration BG 50-70 responsive npo pt Dextrose 50 ml 08/01/25 05:16 Dextrose 50%-Water Inj 50 Ml Syringe IV 08/31/25 05:15 Q15MIN PRN BG <50 OR BG <70 & pt unresponsive Digoxin 0.125 mg 08/04/25 13:45 08/07/25 09:52 Digoxin Inj 0.25 Mg/Ml Amp 2 Ml IVP 09/03/25 13:44 0.125 mg QDAY LISETTE Administration Glucagon 1 mg 08/01/25 05:16 Glucagon Inj 1 Mg Vial IM Q15MIN PRN BG <70, and no IV access Piperacillin Sod/Tazobactam 100 mls @ 200 mls/hr 08/01/25 12:00 08/07/25 05:56 Sod 2.25 gm/ Sodium Chloride IV 08/08/25 11:59 200 mls/hr Q6HR LISETTE Administration Protocol Heparin Sodium/Dextrose 25,000 unit in 250 mls @ 10.093 mls/hr 08/02/25 14:00 08/07/25 08:44 Heparin In D5w Ivpb IV 08/16/25 13:59 9.7 units/kg/hr .Q24H LISETTE 10.093 mls/hr Protocol Titration 9.7 UNITS/KG/HR Diltiazem/Sodium Chloride 100 mg in 100 mls @ 10 mls/hr 08/04/25 09:33 08/07/25 08:45 Diltiazem In Ns 100 Mg IV 09/03/25 09:32 10 mg/hr .Q10H LISETTE 10 mls/hr 10 MG/HR Administration Insulin Degludec 35 unit 08/01/25 09:00 08/07/25 09:48 Insulin Degludec 5 Unit/0.05 Ml (Per 5 Units) SC 08/31/25 08:59 Not Given QDAY LISETTE Insulin Human Lispro 0 unit 08/01/25 07:30 08/07/25 08:43 Insulin Lispro (Admelog) 1 Unit/0.01 Ml Unit SC 08/31/25 07:29 Not Given ACHS [facility] Protocol Ipratropium [place] 0.5 mg 08/02/25 17:04 Ipratropium Rt 0.5 Mg/ 2.5 Ml Nebu INH 09/01/25 17:03 Q6HR PRN SHORTNESS OF BREATH Levalbuterol HCl 0.63 mg 08/02/25 17:04 Levalbuterol Rt 0.63 Mg/3 Ml Nebu INH 09/01/25 17:03 Q6H PRN WHEEZING Levothyroxine Sodium 70 mcg 08/02/25 09:00 08/07/25 09:50 Levothyroxine Inj 100 Mcg Vial IV 09/01/25 08:59 70 mcg QDAY LISETTE Administration Methylprednisolone Sodium Succinate 16 mg 08/02/25 09:00 08/07/25 09:51 Methylprednisolone Sod Succ 40 Mg/Ml Vial IVP 08/09/25 08:59 16 mg QDAY LISETTE Administration Pantoprazole Sodium 40 mg 08/06/25 09:00 08/07/25 09:49 Pantoprazole 40 Mg Tablet PO 09/05/25 08:59 Not Given QDAY LISETTE Protocol Polyethylene Glycol 17 gm 08/01/25 09:00 08/07/25 09:49 Polyethylene Glycol 17 Gm Packet PO 08/31/25 08:59 Not Given DAILY LISETTE Pramipexole Dihydrochloride 1 mg 08/01/25 21:00 08/06/25 21:00 Pramipexole 0.25 Mg Tablet PO 08/31/25 20:59 1 mg HS LISETTE Administration Sennosides 1 tab 08/01/25 09:00 08/07/25 09:49 Senna Tablet PO 08/31/25 08:59 Not Given QDAY LISETTE Protocol Sodium Chloride 3 ml 08/01/25 02:11 Sodium Chloride Rt Sravani 0.9% 3 Ml Nebu INH 08/31/25 02:10 PRN PRN SOLN Venlafaxine HCl 150 mg 08/01/25 09:00 08/07/25 09:49 Venlafaxine Xr 37.5 Mg Capcr PO 08/31/25 08:59 Not Given DAILY LISETTE Plan 89-year-old female with chronic ILD/pulmonary fibrosis with chronic CO2 retention on home BiPAP, HFpEF, IDDM, and esophageal stenosis, admitted for acute on chronic hypoxic hypercapnic respiratory failure secondary to aspiration pneumonia, complicated by sepsis from Pseudomonas UTI, new-onset atrial fibrillation with RVR, severe dysphagia requiring NPO status and NG tube, and limited respiratory reserve with inability to tolerate sustained wean from BiPAP. #Esophageal stenosis s/p dilation - s/p EGD with dilation for dysphagia secondary to esophageal stenosis on 02/08/2025. - GI recommended checking TSH and T4 to make sure patient is on adequate supplement as hypothyroidism can cause dysphagia. Both within normal range. - Persistent dysphagia is a major contributor to recurrent aspiration and respiratory failure. Plan: * Extensive [id number] discussion held with patient?s nephew, Jg, regarding risks, benefits, and alternatives to intervention, including hospice and palliative care. * Family understands the high risk of respiratory failure and prolonged intubation. * Family elects to proceed with EGD under monitored anesthesia care (MAC) despite elevated procedural risk. * Ongoing aspiration is suspected to be driven by severe dysphagia from esophageal stenosis, contributing to recurrent respiratory decompensation. * GI discussed that definitive options are limited to esophageal dilation or PEG tube placement, both of which require intubation and sedation. * Pulmonology has expressed concern that given the patient?s chronic pulmonary disease and BiPAP dependence, safe extubation following the procedure may not be possible. * Plan for EGD w/ PEG tube 08/07/[address] Peters under [place]. #Acute on chronic hypoxic hypercapnic respiratory failure, likely secondary to #Aspiration pneumonia #Pulmonary arterial hypertension #Interstitial lung disease #Pulmonary fibrosis - Known history of chronic interstitial lung disease and pulmonary fibrosis, contributing to chronic respiratory failure, chronic CO2 retention, and the need for BiPAP and home oxygen (2L). - Current acute exacerbation appears to be triggered by aspiration, likely exacerbated by recent intensified coughing after meals. The patient had worsening respiratory distress following dinner, with increasing cough and suspected aspiration of food. - Initial lactate was elevated at 2.4 --> 2.7 --> 2.3. Given the hypoxia and respiratory failure, the lactic acidosis may be due to tissue hypoperfusion and/or poor oxygenation. - Initial ABG showed pH 7.25, pCO2 74, pO2 62, bicarb 33, represents respiratory acidosis. - CXR 08/01: extensive bilateral pneumonia, prominent vascular congestion. - Patient is currently on a prednisone taper for ILD. - Patient failed ST swallow screen. - EGD and esophageal dilation on 02/08/25 for esophageal stenosis. - ABG 08/03: pH 7.33, pCO2 64, HCO3 34. Plan: * Pulmonology consulted, patient deemed high risk for intubation and prolonged ventilator dependence. * Continue strict NPO status and aspiration precautions. * Switched DuoNebs to Levalbuterol as patient is tachycardic. * Continuous pulse oximetry to closely monitor oxygen saturation. * Aspiration precautions. * Switched Prednisone 20mg PO QD to Methylprednisolone 16 mg IV QD as patient is NPO. Given the patient's history of interstitial lung disease, the steroid taper should proceed as planned, maintaining the current dose for 1 more week before reassessment. * Monitor for signs of worsening pneumonia or other complications. * Pulmonology has evaluated the patient and expressed concern that intubation for procedures may result in prolonged mechanical ventilation with high risk of inability to safely extubate, given chronic lung disease and BiPAP dependence. * Trial oxymask today (08/06) however patient desaturated after 1.5 hour, resumed BIPAP. #Sepsis #Staphylococcus epidermidis bacteremia #Pseudomonas aeruginosa UTI #Lactic acidosis #Leukocytosis - Etiology: Staphylococcus epidermidis bacteremia with suspected urinary tract infection as the source? - Lactate: 2.4 --> 2.7 --> 2.3. - WBC 23.2 on admission. - Blood culture 08/01: 2/2 GPC bacteremia. Staphylococcus epidermidis. - UA: 1+ protein, 44 RBC, 76 WBC, amorphous crystals, budding yeast, leukocyte esterase positive. Previous culture was positive for pansensitive Klebsiella Ozaenae. - Urine culture 08/01: Pseudomonas aeruginosa. Sensitive to Zosyn. - CXR: extensive bilateral pneumonia, prominent vascular congestion. - Fluids: 30 mL/kg, 2L of LR given in ED. - Blood culture 08/03: Yeast. Received one dose of Micafungin 50 mg. - Blood culture 08/05: NGTD Plan: * Infectious Disease consulted, recommend continue Zosyn at this time vs transition to Levofloxacin. * Stop Vancomycin * No further antifungal therapy recommended after single dose of micafungin. * Zosyn 2.25 g every 8 hours for UTI (08/01-08/08). * Oxygen / Ventilation: BiPAP. * Renal: strict I&O, avoid nephrotoxins. * CBC/BMP daily or more frequent if unstable. * Monitor organ dysfunction resolution or progression. * Continue to monitor repeat blood cultures and clinical status. #New onset Atrial fibrillation with RVR - EKG on 08/02 showed irregularly irregular rhythm rate 155 with RBBB. - No history of atrial fibrillation. - CHADSVASc score 6. - HASBLEED score 3. High Risk of major bleeding. - Was given diltiazem IV 20 mg x 1 and was started on diltiazem gtt. 5 mg/h which was increased to 10 mg/h as patient continued to remain tachycardic. - Three doses of digoxin (0.25 mg x2, 0.125 mg x1) given on 08/03 for tachycardia. Plan: * Cardiology consulted - appreciate recs. * Heparin drip. * Diltiazem 10mg/hr drip. * IV digoxin 0.125 QD. * Keep potassium greater than 4 and magnesium greater than 2 at all times. #Hypernatremia #Hyperkalemia (resolved) - On admission, sodium 148 and potassium 5.2. - Likely secondary to decreased oral intake, lack of insulin, or hyperglycemia. - Patient received fluids in the ED and will start receiving insulin sliding scale. - Sodium continues to uptrend, peak at 153 on 08/04. - D5W given 08/04, sodium 153 --> 151. Plan: * NG tube placed. * Continue free water flushes at 250 cc per four hours for free water deficit of 1.9L. * Trend sodium levels Q6H. #NSTEMI - Likely secondary to demand ischemia. - Troponin of 0.051 --> 0.030. - EKG showed sinus tachycardia with a rate of 131 QTc 473, widened upright QRS in V1 may represent right bundle branch block, No acute ST segment changes in other leads Plan: * Continue to monitor for chest pain. #Insulin-dependent type 2 diabetes - Per caregiver the patient is on 35 units of Lantus every morning, sliding scale, and 8 units regular 3 times daily with meals. - Hemoglobin A1c 2 months ago was 6.4. - Glucose on admission was 241. Plan: * Insulin degludec 35 units QD. * Insulin sliding scale. * Carb consistent diet once patient passes swallow eval. #Chronic normocytic anemia - Hemoglobin 11.8, MCV 101. - Likely secondary to anemia of chronic disease secondary to history of breast cancer and interstitial lung disease. - No suspicion for active bleed at this time. Plan: * No direct intervention at this time. * Monitor CBC. #Chronic diastolic CHF, HFpEF - Echo from 12/2024 showed EF 65%. Trace mitral and trace tricuspid regurgitation, No wall motion abnormalities noted. - BNP 193. - CXR (08/02/2025): extensive bilateral lung opacity, Mild enlargement cardiac contour with significant vascular congestion on physical exam 1+ edema noted bilateral hips. - Patient's underlying respiratory status and lieu of ILD flare/aspiration pneumonia. - Echo 08/02/25: ejection fraction is 60-65%. Plan: * Strict I and Os. * Fluid restriction 1500ml. * Patient is not on diuretics outpatient because of chronic hypercapnia and diuresis can cause contraction alkalosis causing further respiratory decompensation. #Hyperlipidemia Plan: * Hold atorvastatin 10 mg nightly as patient is NPO. #Hypothyroidism - Home medication: Levothyroxine 100 mcg daily. Plan: * Levothyroxine 70 mcg IV QD as patient is NPO. #Chronic constipation - Per caregiver, the patient's last bowel movement was 07/30/2025. - Last bowel movement 08/03. - KUB 08/04: large amounts of stool throughout the colon. Plan: * Daily senna and MiraLAX. * Water edema ordered. #Depression Plan: * Hold home Venlafaxine 150 mg XR p.o. daily as patient is NPO. #Parkinson Plan: * Hold home pramipexole 1 mg nightly as patient is NPO. Health Maintenance Disposition: tele, PEG tube placement DVT prophylaxis: Heparin 5,000 U subQ GI prophylaxis: Pantoprazole 40 mg IV daily Diet: NPO Queen: In place Lines: Peripheral IV CODE STATUS: DNR/DNI Case discussed with my senior resident Dr. Eller Case discussed with my attending Dr. Kelvin Combs DO PGY 1 Attending Provider Attestation/Addendum Kaylynn Núñez DO, attest that I was physically present for the mackenzie portions of the service and evaluated the patient with the resident and I reviewed and discussed the case with the resident and agree with the resident's findings and plans of care as documented above Patient seen and evaluated this AM. Case discussed with pulmonology who was able to place patient on oxymask of 6L. She was saturating 94%, but stated that she felt short of breath. Repositioned patient to seated position who stated she felt improved. However, later required to be placed back on BiPap. Patient is A&Ox3. Explained to patient her course of hospitalization and current condition. She is understanding of her ILD leading to her frequent hospitalizations and CO2 retention. She has been BiPap dependent, which has been the barrier for patient to further undergo GI intervention. Patient has required dilatation of her esophageal strictures in the past, which she will need again at this time due to her difficulty swallowing and aspiration. Patient currently requiring NG tube in order placed for free water flushes to decrease sodium level given hypernatremia. Patient states that she is hungry but understanding that she is unable to eat since she has been on the BiPAP throughout course of hospitalization and risk of aspiration. Upon discussion of requirement of generalized anesthesia for GI intervention and high risk of difficulty weaning off mechanical ventilation, patient was agreeable to undergoing anesthesia given the risks. She also stated that her nephew Jg would aid in her decision making. Dr. Eller had spoken to Jg over the phone who is also understanding of the risks versus the benefits of the procedures. Knowing the risks of possible difficulty weaning off mechanical ventilation given her ILD, he is also agreeable for patient to further undergo EGD and dilatation of the esophagus. Will continue to wean patient off BiPAP if possible. Discussed with GI regarding patient and family's decision.
--- NOTE | 2025-08-07 13:59 | ESPR_ITS ---
Documentation for date of: 08/07/25 Subjective Subjective Interval history: Patient seen and examined at bedside. Telemetry reviewed. Currently no complaints, looks euvolemic no indication for diuresis for now. Patient has NG tube intact getting free water flushes, patient has been n.p.o. since last 6 days has not been fed. Plan for EGD with PEG tube today for usp nutritional support under general anesthesia. Otherwise heart rate well-controlled on diltiazem 10 mg/h and digoxin 0.125 mg every day. Patient on heparin drip. Transition to diltiazem 240 mg daily and digoxin 0.125 mg orally when able. Exam Vital Signs Temp Pulse Resp BP Pulse Ox O2 Del Method O2 Flow Rate 97.1 F 83 26 H 159/56 H 96 BiPAP 7 08/07/25 12:00 08/07/25 12:01 08/07/25 12:01 08/07/25 12:00 08/07/25 12:01 08/07/25 12:00 08/06/25 12:00 FiO2 40 08/07/25 12:01 Narrative Exam Physical Exam General: Chronically ill-appearing woman on BiPAP, obese habitus. HEENT: Normocephalic, atraumatic. Heart: Irregularly irregular, normal S1 and S2, no murmurs. Lungs: Mild wheezing bilateral. Abdomen: Obese, firm, distended, tender. No guarding or rebound tenderness. Neurologic: Alert and oriented x3, no gross neurological deficit, and patient able to move all 4 extremities. Extremities: Trace lower extremity edema, clubbing or cyanosis. No joint deformity. Skin: Warm and dry without rashes. : Queen in place, draining yellow urine. Objective Labs 08/07/25 05:40 08/07/25 05:40 Labs: Laboratory Results - last 24 hr 08/06/25 08/06/25 08/07/25 05:05 19:39 05:40 WBC 13.7 H RBC 3.13 L Hgb 9.2 L Hct 30.7 L MCV 98 MCH 29.4 MCHC 30.0 L RDW Std Deviation 58.2 H Plt Count 174 Neut % (Auto) 74 Lymph % (Auto) 6 L [place] % (Auto) 6 Eos % (Auto) 0 Baso % (Auto) 0 Neut # (Auto) 10.2 H Lymph # (Auto) 0.9 L [place] # (Auto) 0.8 Eos # (Auto) 0.0 Baso # (Auto) 0.0 Immature Gran # (Auto) 1.88 H Absolute Nucleated RBC 0.17 H Immature Gran % 14 H Nucleated RBC % 1 H Smear Path Review Sent to Pathologist APTT 43.1 H D Sodium 143 144 Potassium 4.3 Chloride 102 Carbon Dioxide 34.7 H Anion Gap 7 BUN 15 Creatinine 0.8 Estim Creat Clear Calc 59.5 L eGFR > 60 BUN/Creatinine Ratio 19 Glucose 79 Calculated Osmolality 286 Calcium 9.8 Corrected Calcium 10.4 H Phosphorus 3.4 Magnesium 2.4 Total Bilirubin 0.4 AST 27 ALT 55 H Alkaline Phosphatase 60 Total Protein 5.4 L Albumin 3.2 L Globulin 2.2 L Albumin/Globulin Ratio 1.5 ABG Interpretation ABG results: 08/01/25 08/01/25 08/02/25 02:15 09:05 12:15 ABG pH 7.25 L 7.30 L ABG pCO2 74 H* 66 H ABG pO2 62 L 84 D ABG HCO3 33 H 32 H ABG O2 Saturation 95 95 ABG Base Excess 4 H 4 H VBG pH 7.27 L VBG pCO2 63 H VBG pO2 Not Performed. VBG Base Excess 0 08/03/25 08/04/25 10:44 12:13 ABG pH 7.33 L 7.33 L ABG pCO2 64 H 69 H ABG pO2 88 85 ABG HCO3 34 H 36 H ABG O2 Saturation 95 95 ABG Base Excess 6 H 8 H VBG pH VBG pCO2 VBG pO2 VBG Base Excess Quality Measures Quality Measures VTE prophylaxis Advance care planning discussed with:: patient Assessment & Plan Assessment Current Active Medications: Generic Name Dose Route Start Last Admin Trade Name Freq PRN Reason Stop Dose Admin Acetaminophen 650 mg 08/01/25 05:05 Acetaminophen 325 Mg Tablet PO 08/31/25 05:04 Q6H PRN Fever >100.4 Aspirin 81 mg 08/05/25 11:30 08/07/25 09:48 Aspirin 81 Mg Chew NG 09/04/25 11:29 Not Given DAILY LISETTE Atorvastatin Calcium 10 mg 08/01/25 21:00 08/06/25 21:01 Atorvastatin Calcium 10 Mg Tablet PO 08/31/25 20:59 10 mg HS LISETTE Administration Dextrose 25 ml 08/01/25 05:16 08/07/25 08:37 Dextrose 50%-Water Inj 50 Ml Syringe IV 08/31/25 05:15 25 ml Q15MIN PRN Administration BG 50-70 responsive npo pt Dextrose 50 ml 08/01/25 05:16 Dextrose 50%-Water Inj 50 Ml Syringe IV 08/31/25 05:15 Q15MIN PRN BG <50 OR BG <70 & pt unresponsive Digoxin 0.125 mg 08/04/25 13:45 08/07/25 09:52 Digoxin Inj 0.25 Mg/Ml Amp 2 Ml IVP 09/03/25 13:44 0.125 mg QDAY LISETTE Administration Glucagon 1 mg 08/01/25 05:16 Glucagon Inj 1 Mg Vial IM Q15MIN PRN BG <70, and no IV access Piperacillin Sod/Tazobactam 100 mls @ 200 mls/hr 08/01/25 12:00 08/07/25 12:52 Sod 2.25 gm/ Sodium Chloride IV 08/08/25 11:59 200 mls/hr Q6HR LISETTE Administration Protocol Heparin Sodium/Dextrose 25,000 unit in 250 mls @ 10.093 mls/hr 08/02/25 14:00 08/07/25 08:44 Heparin In D5w Ivpb IV 08/16/25 13:59 9.7 units/kg/hr .Q24H L[place]ETTE 10.093 mls/hr Protocol Titration 9.7 UNITS/KG/HR Diltiazem/Sodium Chloride 100 mg in 100 mls @ 10 mls/hr 08/04/25 09:33 08/07/25 08:45 Diltiazem In Ns 100 Mg IV 09/03/25 09:32 10 mg/hr .Q10H LISETTE 10 mls/hr 10 MG/HR Administration Insulin Degludec 35 unit 08/01/25 09:00 08/07/25 09:48 Insulin Degludec 5 Unit/0.05 Ml (Per 5 Units) SC 08/31/25 08:59 Not Given QDAY LISETTE Insulin Human Lispro 0 unit 08/01/25 07:30 08/07/25 12:50 Insulin Lispro (Admelog) 1 Unit/0.01 Ml Unit SC 08/31/25 07:29 Not Given ACHS [facility] Protocol Ipratropium [place] 0.5 mg 08/02/25 17:04 Ipratropium Rt 0.5 Mg/ 2.5 Ml Nebu INH 09/01/25 17:03 Q6HR PRN SHORTNESS OF BREATH Levalbuterol HCl 0.63 mg 08/02/25 17:04 Levalbuterol Rt 0.63 Mg/3 Ml Nebu INH 09/01/25 17:03 Q6H PRN WHEEZING Levothyroxine Sodium 70 mcg 08/02/25 09:00 08/07/25 09:50 Levothyroxine Inj 100 Mcg Vial IV 09/01/25 08:59 70 mcg QDAY [place]ETTE Administration Methylprednisolone Sodium Succinate 16 mg 08/02/25 09:00 08/07/25 09:51 Methylprednisolone Sod Succ 40 Mg/Ml Vial IVP 08/09/25 08:59 16 mg QDAY L[place]ETTE Administration Pantoprazole Sodium 40 mg 08/06/25 09:00 08/07/25 09:49 Pantoprazole 40 Mg Tablet PO 09/05/25 08:59 Not Given QDAY [place] Protocol Polyethylene Glycol 17 gm 08/01/25 09:00 08/07/25 09:49 Polyethylene Glycol 17 Gm Packet PO 08/31/25 08:59 Not Given DAILY LISETTE Pramipexole Dihydrochloride 1 mg 08/01/25 21:00 08/06/25 21:00 Pramipexole 0.25 Mg Tablet PO 08/31/25 20:59 1 mg HS LISETTE Administration Sennosides 1 tab 08/01/25 09:00 08/07/25 09:49 Senna Tablet PO 08/31/25 08:59 Not Given QDAY [place]TE Protocol Sodium Chloride 3 ml 08/01/25 02:11 Sodium Chloride Rt Sravani 0.9% 3 Ml Nebu INH 08/31/25 02:10 PRN PRN SOLN Venlafaxine HCl 150 mg 08/01/25 09:00 08/07/25 09:49 Venlafaxine Xr 37.5 Mg Capcr PO 08/31/25 08:59 Not Given DAILY LISETTE Plan Ms. Coffman is a 89-year-old female with past medical history of ILD/pulmonary fibrosis/chronic hypersensitivity pneumonitis with chronic respiratory failure on 2 L home oxygen and BiPAP currently on steroid taper, pulmonary arterial hypertension, heart failure with preserved ejection fraction, EF 60-65%, chronically bedbound, recurrent MDR UTIs, hypothyroidism, right breast cancer status postlumpectomy with lymph node dissection, insulin-dependent type 2 diabetes mellitus, GERD, depression, chronic back pain and nephrolithiasis who presented to [facility] emergency department on 08/01/2025 with a chief complaint of hypoxia. Cardiology was consulted for management of new onset Afib on EKG. #New Onset A Fib with RVR Patient has SOB. Denies palpation or chest pain. EKG showed irregularly irregular rhythm rate 155 with RBBB. MAT ruled out. No history of atrial fibrillation CHADSVASc score 6 HASBLEED score 3. High Risk of major bleeding Was given diltiazem IV 20 mg x 1 and was started on diltiazem gtt. 5 mg/h which was increased to 10 mg/h as patient continued to remain tachycardic On August 03 patient was noted to be significantly tachycardic with low blood pressure, was given total IV digoxin 0.625 mg loading dose Plan: -Continue diltiazem drip 10mg/hr. transition to p.o. once able, start Cardizem 240 mg p.o. when able -Continue heparin drip, transition to oral Eliquis when no contraindications -On IV digoxin 0.125mg qd, transition to oral when no contraindications -Check digoxin level August 10 -Recommend Holter monitor outpatient to assess A fib burden. 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 Pulmonology notes reviewed. Patient steroid taper is being managed by resident clinic outpatient with recommendations from pulmonology remotely. Patient has had multiple admissions for hypercapnia, currently using BiPAP every night with [facility]. Patient does have history of heart failure, HFpEF with a EF 60 to 65%, never seen a white metal caster outpatient, patient not on diuretics outpatient per resident clinic note as patient has chronic hypercapnia and diuresis causes contraction alkalosis causing further respiratory decompensation. CXR (08/02/2025): extensive bilateral lung opacity, Mild enlargement cardiac contour with significant vascular congestion on physical exam 1+ edema noted bilateral hips. Patient's underlying respiratory status and lieu of ILD flare/aspiration pneumonia ECHO (08/02/2025) showed: 1. Left ventricle size is normal and systolic function is normal. Estimated ejection fraction is 60-65%. There is indeterminate diastolic function due to afib. There is mild concentric hypertrophy noted. 2. Right ventricle is not well visualized. RV function appears normal. 3. There is mild aortic valve sclerosis with no stenosis. 4. Mild thickening of the mitral valve leaflets. Mild MR, mild MAC. Mild TR. 5. Normal IVC with estimated RA pressure 3 mmHg. 6. Prior study from 12/29/2024. Plan: -Hold diuresis now as patient does not have signs of fluid overload -Strict intake and output, daily weight -Fluid restriction 1500ml, cardiac diet -Keep magnesium greater than 2 and potassium greater than 4 at all times -Management of respiratory disease per primary team #?Pulmonary Hypertension, Group III #Hx of Interstitial Lung Disease - Patient has established diagnosis of interstitial lung disease, pulmonary fibrosis secondary to chronic hypersensitivity pneumonitis - Patient had echo in the past with elevated right-sided pressures suggestive of pulmonary hypertension - Chest CT (08/01/2025): Pulmonary artery hypertension, Severe pneumonia and/or edema throughout the lungs - Recommend outpatient workup for pulmonary hypertension Plan: -BiPAP prn -Duoneb prn -Steroid taper per pulmonology # Hypertension In ED, 155/80 blood pressure well-controlled -Continue diltiazem drip for now, transition to p.o. diltiazem 240 mg once able #Hypernatremia #Acute on chronic hypoxic hypercapnic respiratory failure, likely secondary to #Aspiration pneumonia #Sepsis #GPC bacteremia #Lactic acidosis #Leukocytosis #UTI #Insulin-dependent type 2 diabetes #Esophageal stenosis s/p dilation #Chronic normocytic anemia #Hyperlipidemia #Hypothyroidism #Chronic constipation #Depression #Parkinson -Management per Primary Hospitalist team Thank you for the consult and allowing to participate in the care of the patient. Cardiology will continue to follow. Case discussed with Attending Physician Dr. Steven Allen MD Internal Medicine PGY-2 Disclaimer: This note was dictated by speech recognition. Minor errors in public space attendant may be present due to voice recognition software. Attending Provider Attestation/Addendum I have personally seen and examined the patient separately on the above date of service and discussed the plan of care with the resident. I reviewed the resident Dr. Doron Allen consultation progress note and agree with the resident findings and plan in the note above and have also edited the documentation to reflect my findings and plan. Steven Spencer M.D. Interventional Cardiology
--- NOTE | 2025-08-07 16:06 | PC.SS ---
Rounding note: On BiPAP, EGD with PEG tube placement today for correction nutritional support. Discharge plan: Home, transportation support from needed. DME Order for bed accepted by [facility] [phone]
[2025-08-07 16:30] LABS: Partial Thromboplastin Time 59.2 Seconds (22.0-36.0)
[2025-08-07] MEDS: Heparin/D5w 25K 250 ML Ivpb 25,000 UNIT/250 ML BAG 10.093 UNIT IV (17:29)
--- NOTE | 2025-08-07 17:53 | ESPR_ITS ---
Documentation for date of: 08/07/25 Subjective Subjective Interval history: Case discussed in detail with Dr. Jerez Patient's EGD PEG placement postponed to tomorrow as I am going to be in the hospital all day when working with anesthesia Patient will be intubated by anesthesia and then postprocedure will go to the ICU for possible extubation if possible Family has already consented for the Exam Vital Signs Temp Pulse Resp BP Pulse Ox O2 Del Method O2 Flow Rate 97 F 83 19 169/65 H 94 L BiPAP 7 08/07/25 16:00 08/07/25 16:00 08/07/25 16:00 08/07/25 16:00 08/07/25 16:00 08/07/25 16:00 08/06/25 12:00 FiO2 40 08/07/25 12:01 Objective Labs 08/07/25 05:40 08/07/25 05:40 Labs: Laboratory Results - last 24 hr 08/06/25 08/07/25 08/07/25 19:39 05:40 15:27 WBC 13.7 H RBC 3.13 L Hgb 9.2 L Hct 30.7 L MCV 98 MCH 29.4 MCHC 30.0 L RDW Std Deviation 58.2 H Plt Count 174 Neut % (Auto) 74 Lymph % (Auto) 6 L [place] % (Auto) 6 Eos % (Auto) 0 Baso % (Auto) 0 Neut # (Auto) 10.2 H Lymph # (Auto) 0.9 L [place] # (Auto) 0.8 Eos # (Auto) 0.0 Baso # (Auto) 0.0 Immature Gran # (Auto) 1.88 H Absolute Nucleated RBC 0.17 H Immature Gran % 14 H Nucleated RBC % 1 H APTT 43.1 H D 59.2 H D Sodium 143 144 Potassium 4.3 Chloride 102 Carbon Dioxide 34.7 H Anion Gap 7 BUN 15 Creatinine 0.8 Estim Creat Clear Calc 59.5 L eGFR > 60 BUN/Creatinine Ratio 19 Glucose 79 Calculated Osmolality 286 Calcium 9.8 Corrected Calcium 10.4 H Phosphorus 3.4 Magnesium 2.4 Total Bilirubin 0.4 AST 27 ALT 55 H Alkaline Phosphatase 60 Total Protein 5.4 L Albumin 3.2 L Globulin 2.2 L Albumin/Globulin Ratio 1.5 Impressions Impression: Failure to thrive Dysphagia Acute hypoxic respiratory failure requiring BiPAP in the setting of atrial fibrillation RVR primary pulmonary hypertension interstitial fibrosis Plan PEG tube insertion under MAC scheduled for tomorrow with possible esophageal dilatation ABG Interpretation ABG results: 08/01/25 08/01/25 08/02/25 02:15 09:05 12:15 ABG pH 7.25 L 7.30 L ABG pCO2 74 H* 66 H ABG pO2 62 L 84 D ABG HCO3 33 H 32 H ABG O2 Saturation 95 95 ABG Base Excess 4 H 4 H VBG pH 7.27 L VBG pCO2 63 H VBG pO2 Not Performed. VBG Base Excess 0 08/03/25 08/04/25 10:44 12:13 ABG pH 7.33 L 7.33 L ABG pCO2 64 H 69 H ABG pO2 88 85 ABG HCO3 34 H 36 H ABG O2 Saturation 95 95 ABG Base Excess 6 H 8 H VBG pH VBG pCO2 VBG pO2 VBG Base Excess Assessment & Plan A&P Narrative dnr status multiple listed allergies. prior id eval in may noted. abn ua in an 89 y/o lady with pos cx noted. not clear if she followed advice for vaginal estrogen in may. will review friday again and see if f/u cx also show yeast. ild hx noted with hypercapnea. confounding things a bit. is in house frequently on vanco/zosyn/micafungin and steroids. at most low grade temps soon after arrival. wbc may be related to steroids but is done popularly. nasal mrsa neg. so mrsa an unlikely player in pneumonia bc with coag neg and repeats appear to be neg for any staph. line placed rt chest approx 08/03 so is fast for yeast. echo neg so stopped vanco and left on micafungin and zosyn and will check in again friday am no cough noted. no notable fever but is on steriods. Time Spent With Patient Time: Total time spent is greater than 50% in coordination of care (as documented) at patient's floor/unit and/or counseling patient:
[2025-08-07 20:32] LABS: Sodium 143 mMol/L (136-145)
[2025-08-07] MEDS: PRAMIPEXOLE 0.25 MG TABLET 1 MG PO (21:55)
[2025-08-07] MEDS: ATORVASTATIN CALCIUM 10 MG TABLET PO (21:56)
[2025-08-08] VITALS (55 sets, daily range): BP systolic 94–210; BP diastolic 41–71; PULSE 54–99; RESP 8–24; TEMP 36–36.2; O2SAT 91–100; BMI 36.8
[2025-08-08] MEDS: PIPERACILLIN/TAZO 2.25GM INJ 2.25 GM in SODIUM CHLORIDE 0.9% (POP) 100 ML IV (05:12)
[2025-08-08 06:27] LABS: Basophils # (Auto) 0.0 Thou/mm3 (0.0-0.2); Basophils % (Auto) 0 % (0-2.5); Eosinophils # (Auto) 0.1 Thou/mm3 (0.0-0.5); Eosinophils % (Auto) 0 % (0-10); Hematocrit 30.9 % (36.0-46.0); Hemoglobin 9.3 g/dL (12.0-16.0); Immature Granulocytes Auto 1.75 Thou/mm3 (0.00-0.00); Lymphocytes # (Auto) 0.9 Thou/mm3 (1.0-4.8); Lymphocytes % (Auto) 7 % (10-50); Mean Corpuscular HGB Conc 30.1 g/dl (31.0-37.0); Mean Corpuscular Hemoglobin 29.3 pg (25.0-35.0); Mean Corpuscular Volume 98 fL (80-100); Monocytes # (Auto) 0.9 Thou/mm3 (0.0-0.8); Monocytes % (Auto) 7 % (0-12); Neutrophils # (Auto) 9.6 Thou/mm3 (1.8-7.7); Neutrophils % (Auto) 73 % (37-80); Nucleated Red Blood Cell # 0.15 Thou/mm3 (0.00-0.00); Nucleated Red Blood Cell % 1 /100 WBC (0); Platelet Count 186 Thou/mm3 (140-440); RDW Standard Deviation 56.9 fL (36.4-46.3); Red Blood Count 3.17 Miln/mm3 (4.00-5.20); White Blood Count 13.2 Thou/mm3 (3.6-11.0)
[2025-08-08 06:38] LABS: Alanine Aminotransferase 48 U/L (10-49); Albumin, Serum 3.1 gm/dL (3.4-4.8); Albumin/Globulin Ratio 1.4 (1.2-2.2); Alkaline Phosphatase 58 U/L (46-116); Anion Gap 6 (7-16); Aspartate Amino Transferase 20 U/L (0-34); BUN/Creatinine Ratio 16 Ratio (12-20); Bilirubin,Total 0.4 mg/dL (0.3-1.2); Blood Urea Nitrogen 13 mg/dL (9-23); Calcium 9.6 mg/dL (8.3-10.6); Calcium (Corrected) 10.3 mg/dL (8.5-10.1); Carbon Dioxide 36.9 mMol/L (20.0-31.0); Chloride 101 mMol/L (98-107); Creatinine (Component) 0.8 mg/dL (0.6-1.3); Estimated Creatinine Clearance 58.8 mL/min (>60); Globulin 2.2 gm/dL (2.3-3.5); Glucose 89 mg/dL (74-106); Magnesium 2.0 mg/dL (1.6-2.6); Osmolality,Calculated 285 (275-295); Phosphorous 3.3 mg/dL (2.4-5.1); Potassium 4.1 mMol/L (3.4-5.1); Sodium 144 mMol/L (136-145); Total Protein 5.3 gm/dL (5.7-8.2); eGFR > 60 See Note
[2025-08-08 06:46] LABS: Partial Thromboplastin Time 61.7 Seconds (22.0-36.0)
[2025-08-08] MEDS: ASPIRIN 81 MG CHEW NG (08:39)
[2025-08-08] MEDS: DIGOXIN INJ 0.25 MG/ML AMP 2 ML 0.125 MG IVP (08:40)
[2025-08-08] MEDS: POLYETHYLENE GLYCOL 17 GM PACKET PO (08:40)
[2025-08-08] MEDS: VENLAFAXINE XR 37.5 MG CAPCR 150 MG PO (08:40)
[2025-08-08] MEDS: LANSOPRAZOLE 30 MG TAB.RAP.DR NG (08:49)
--- NOTE | 2025-08-08 09:40 | PD.IDPROG ---
Subjective Subjective Interval history: on iv rx for yeast in bc . no ID yet. repeats neg so far no antifungal noted. on zosyn alone. on steroids Exam Vital Signs Temp Pulse Resp BP Pulse Ox O2 Del Method O2 Flow Rate 97.1 F 64 16 136/67 H 94 L BiPAP 7 08/08/25 08:00 08/08/25 08:40 08/08/25 08:00 08/08/25 08:40 08/08/25 08:00 08/08/25 08:00 08/06/25 12:00 FiO2 35 08/08/25 07:48 Narrative Exam no fever but that may be the steroids. she is dnr. I assume the zosyn is for the psa in urine from 08/01. ua not normal on zosyn 08/07/25 ok for vaginal estrogen if you agree. Objective - Internal Medicine Labs 08/08/25 05:07 08/08/25 05:07 Labs: Laboratory Results - last 24 hr 08/07/25 08/07/25 08/08/25 15:27 19:53 05:07 WBC 13.2 H RBC 3.17 L Hgb 9.3 L Hct 30.9 L MCV 98 MCH 29.3 MCHC 30.1 L RDW Std Deviation 56.9 H Plt Count 186 Neut % (Auto) 73 Lymph % (Auto) 7 L [place] % (Auto) 7 Eos % (Auto) 0 Baso % (Auto) 0 Neut # (Auto) 9.6 H Lymph # (Auto) 0.9 L [place] # (Auto) 0.9 H Eos # (Auto) 0.1 Baso # (Auto) 0.0 Immature Gran # (Auto) 1.75 H Absolute Nucleated RBC 0.15 H Immature Gran % 13 H Nucleated RBC % 1 H APTT 59.2 H D 61.7 H Sodium 143 144 Potassium 4.1 Chloride 101 Carbon Dioxide 36.9 H Anion Gap 6 L BUN 13 Creatinine 0.8 Estim Creat Clear Calc 58.8 L eGFR > 60 BUN/Creatinine Ratio 16 Glucose 89 Calculated Osmolality 285 Calcium 9.6 Corrected Calcium 10.3 H Phosphorus 3.3 Magnesium 2.0 Total Bilirubin 0.4 AST 20 ALT 48 Alkaline Phosphatase 58 Total Protein 5.3 L Albumin 3.1 L Globulin 2.2 L Albumin/Globulin Ratio 1.4 ABG Interpretation ABG results: 08/01/25 08/01/25 08/02/25 02:15 09:05 12:15 ABG pH 7.25 L 7.30 L ABG pCO2 74 H* 66 H ABG pO2 62 L 84 D ABG HCO3 33 H 32 H ABG O2 Saturation 95 95 ABG Base Excess 4 H 4 H VBG pH 7.27 L VBG pCO2 63 H VBG pO2 Not Performed. VBG Base Excess 0 08/03/25 08/04/25 10:44 12:13 ABG pH 7.33 L 7.33 L ABG pCO2 64 H 69 H ABG pO2 88 85 ABG HCO3 34 H 36 H ABG O2 Saturation 95 95 ABG Base Excess 6 H 8 H VBG pH VBG pCO2 VBG pO2 VBG Base Excess Assessment & Plan A&P Narrative dnr status multiple listed allergies. prior id eval in may noted. abn ua in an 89 y/o lady with pos cx noted. not clear if she followed advice for vaginal estrogen in may. will review Friday again ild hx noted with hypercapnea. confounding things a bit. is in house frequently on zosyn and steroids. at most low grade temps soon after arrival. wbc may be related to steroids but is done popularly on a daily basis. nasal mrsa neg. so mrsa an unlikely player in pneumonia bc with coag neg and repeats appear to be neg for any staph. line placed rt chest approx 08/03 so is fast for yeast. echo neg so stopped vanco and left on micafungin and zosyn and will check in again Friday pm. no obection to restarting micafungin but ok to leave her off as well no cough noted. no notable fever but is on steriods. Time Spent With Patient Time: Total time spent is greater than 50% in coordination of care (as documented) at patient's floor/unit and/or counseling patient:
--- NOTE | 2025-08-08 09:53 | PD.RESPRO ---
Documentation for date of: 08/08/25 Subjective Subjective Interval history: Ms Adelaida Coffman is 89yF with PMH of interstitial lung disease, pulmondary fibrosis, chronic CO2 retention on 2L home oxygen and BiPAP, HFpEF, bedbound, recurrent UTIs, hypothyrodism, right breast cancer status postlumpectomy, insulin-dependent type 2 diabetes, GERD, depression, and chronic back pain, presented to the ED on 08/01/2025 due to hypoxemia. The patient started to cough following lunch the day before admission (07/31) and worsened while eating her dinner on the same day. The caregiver noted the patient was expectorating phlegm without any food particles, and suspected possible aspiration. Per EMS note, patient's oxygen level was in 30s and at 68% on 2L nasal cannula and to mid 80s after albuterol treatment. Patient was admitted for acute on chronic hypoxic hypercapnic respiratory failure and aspiration pneumonia. Cardiology was consulted for management of new onset Afib on EKG. ED course: Vitals: Temp 99.6F, [place]: 128, RR:28, BP: 127/74, O2sat:95% On Oxy mask 15L Labs: WBC 23.2, Hgb:11.8, ABG pCO2:74, ABG pH:7.25, Na:148, K:5.2, HCO2: 33.1, Cr:1.2, eGFR:43, Glucose: 241, HbA1c: 6.6, Lactic acid:2.4 (increased to 18.0 in 3hrs), Ca 9.8 (decreased to 6.4 in 3hrs), Troponin:0.051, BNP: 193 CXR (08/01/2025): Extensive bilateral pneumonia, consider associated mild heart failure In ED, Patient received 125 mg IV push methylprednisolone, Zosyn, treatment with albuterol, ipratropium, a dose of vancomycin, 2.5 L of L Medical history: As stated above Surgical history: Right breast lumpectomy, Cholesectomy Allergies: Cefuroxime, Topical zinc, Iodine contrast, Sulfa, Influenza virus, Cefuroxime Medications: Vitamin C 500 mg twice a day, Aspirin 81 mg daily, Calcium vitamin D supplement, Estrogen vaginal cream, [place] 5-3 25 p.o. 3 times daily as needed for pain, Hydroxyzine 25 mg tablet every 6 hours as needed for anxiety, Levothyroxine 100 mcg daily, Metformin 500 mg daily, 35 insulin degludec every morning, 8 units 3 times daily with meals, plus sliding scale, Methenamine 1 g p.o. twice daily, Metoprolol succinate 25 mg daily, Omeprazole 40 mg daily, Pramipexole 1 mg daily, Prednisone 20 mg daily, taper currently, Rosuvastatin 5 mg nightly, Venlafaxine 150 mg XR daily Family history: Noncontributory Social history: Denies smoking cigarettes, drinking alcohol or using other illicit drugs, Lives at home, 24-hour caregiver support 08/02/2025: Labs reviewed and patient examined at the bedside. Recommend Diltiazem drip 10mg/hr and heparin drip if no contraindication to anticoagulation. Also recommend stopping metoprolol due to history of ILD and to avoid bronchospasm. ECHO is pending. Recommend IV lasix 20mg x1 after examining her kidney function and fluid status tomorrow. Upon examination, patient complains of SOB. but denies palpation, chest pain, nausea or vomiting. 08/03/2025: No Overnight events. Labs reviewed and patient examined at the bedside. This morning, patient was tachycardc (HR 120s) with low BP 109/86. Patient was given IV Digoxin 0.25mg x1 and 0.125mg x1 this morning. Patient was still tachycardic this afternoon, so another IV Digoxin 0.25mg x1 was given. Will assess her BP and HR tomorrow. Recommend increasing Ditiazem drip 10mg/hr to 15mg/hr tomorrow if patient is still tachycardic as long as BP tolerates. Patient's sodium increased from 149 to 152, likely from dehydration. No need for diuresis for now. Recommend putting NG tube and give water flushes for hypernatremia, and change heparin drip to oral eliquis and IV digoxin to PO digoxin. Denies chest pain, palpation, N/V, fevers or chills. 08/04/2025: Labs reviewed and patient examined at the bedside. Morning tele monitoring showed Afib, rate controlled. Patient will continue on Diltiazem drip 10mg/hr and IV digoxin 0.125mg qd. Pt's Na level was 153. Started on D5W 80ml/hr, now downtrending to 151. Denies chest pain, palpation, abdominal pain, N/V, fevers or chills. 08/05/2025: No Overnight events. Labs reviewed and patient examined at the bedside. Continue Diltiazem drip 10mg/hr and IV digoxin 0.125mg qd. Sodium level today was 151. Denies chest pain, palpation, SOB, abdominal pain, N/V, fevers or chills. 08/06/2025: Patient seen and examined at bedside. Currently no complaints, looks euvolemic no indication for diuresis for now. Patient has NG tube intact getting free water flushes, patient has been n.p.o. since last 5 days has not been fed. Recommend following up with dietitian/GI regarding feeding. Otherwise heart rate well-controlled on diltiazem 10 mg/h and digoxin 0.125 mg every day. Patient on heparin drip. Transition to diltiazem 240 mg daily and digoxin 0.125 mg orally when able. Steroids being continued per pulmonology recommendations. 08/07/2025: Patient seen and examined at bedside. Telemetry reviewed. Currently no complaints, looks euvolemic no indication for diuresis for now. Patient has NG tube intact getting free water flushes, patient has been n.p.o. since last 6 days has not been fed. Plan for EGD with PEG tube today for skilled nursing nutritional support under general anesthesia. Otherwise heart rate well-controlled on diltiazem 10 mg/h and digoxin 0.125 mg every day. Patient on heparin drip. Transition to diltiazem 240 mg daily and digoxin 0.125 mg orally when able. 08/08/2025: Patient s/p PEG tube placement due to dysphagia. Procedure needed to be done in ICU as she required intubation. Continue with Diltiazem drip for now. Change to Oral immediate release cardizem 60mg qid, Digoxin 0.125mg po qd, and eliquis 5mg po bid tonight. Discontinue heparin drip. Continue with Aspirin and Atorvastatin. Check for Digoxin level on 08/10. Exam Vital Signs Temp Pulse Resp BP Pulse Ox O2 Del Method O2 Flow Rate 97.1 F 64 16 136/67 H 94 L BiPAP 7 08/08/25 08:00 08/08/25 08:40 08/08/25 08:00 08/08/25 08:40 08/08/25 08:00 08/08/25 08:00 08/06/25 12:00 FiO2 35 08/08/25 07:48 Narrative Exam General: Chronically ill-appearing woman, obese habitus, [facility] HEENT: Normocephalic, atraumatic. Heart: Irregularly irregular, normal S1 and S2, no murmurs. Lungs: Mild wheezing bilateral. Abdomen: Obese, firm, distended, tender. No guarding or rebound tenderness. Neurologic: Alert and oriented x3, no gross neurological deficit, and patient able to move all 4 extremities. Extremities: Trace lower extremity edema, clubbing or cyanosis. No joint deformity. Skin: Warm and dry without rashes. : Queen in place, draining yellow urine. Objective Labs 08/09/25 05:47 08/09/25 05:47 Labs: Laboratory Results - last 24 hr 08/07/25 08/07/25 08/08/25 15:27 19:53 05:07 WBC 13.2 H RBC 3.17 L Hgb 9.3 L Hct 30.9 L MCV 98 MCH 29.3 MCHC 30.1 L RDW Std Deviation 56.9 H Plt Count 186 Neut % (Auto) 73 Lymph % (Auto) 7 L [place] % (Auto) 7 Eos % (Auto) 0 Baso % (Auto) 0 Neut # (Auto) 9.6 H Lymph # (Auto) 0.9 L [place] # (Auto) 0.9 H Eos # (Auto) 0.1 Baso # (Auto) 0.0 Immature Gran # (Auto) 1.75 H Absolute Nucleated RBC 0.15 H Immature Gran % 13 H Nucleated RBC % 1 H APTT 59.2 H D 61.7 H Sodium 143 144 Potassium 4.1 Chloride 101 Carbon Dioxide 36.9 H Anion Gap 6 L BUN 13 Creatinine 0.8 Estim Creat Clear Calc 58.8 L eGFR > 60 BUN/Creatinine Ratio 16 Glucose 89 Calculated Osmolality 285 Calcium 9.6 Corrected Calcium 10.3 H Phosphorus 3.3 Magnesium 2.0 Total Bilirubin 0.4 AST 20 ALT 48 Alkaline Phosphatase 58 Total Protein 5.3 L Albumin 3.1 L Globulin 2.2 L Albumin/Globulin Ratio 1.4 ABG Interpretation ABG results: 08/01/25 08/01/2508/02/25 02:15 09:05 12:15 ABG pH 7.25 L 7.30 L ABG pCO2 74 H* 66 H ABG pO2 62 L 84 D ABG HCO3 33 H 32 H ABG O2 Saturation 95 95 ABG Base Excess 4 H 4 H VBG pH 7.27 L VBG pCO2 63 H VBG pO2 Not Performed. VBG Base Excess 0 08/03/25 08/04/25 10:44 12:13 ABG pH 7.33 L 7.33 L ABG pCO2 64 H 69 H ABG pO2 88 85 ABG HCO3 34 H 36 H ABG O2 Saturation 95 95 ABG Base Excess 6 H 8 H VBG pH VBG pCO2 VBG pO2 VBG Base Excess Quality Measures Quality Measures VTE prophylaxis Advance care planning discussed with:: patient and other Assessment & Plan Assessment Current Active Medications: Generic Name Dose Route Start Last Admin Trade Name Freq PRN Reason Stop Dose Admin Acetaminophen 650 mg 08/01/25 05:05 Acetaminophen 325 Mg Tablet PO 08/31/25 05:04 Q6H PRN Fever >100.4 Aspirin 81 mg 08/05/25 11:30 08/08/25 08:39 Aspirin 81 Mg Chew NG 09/04/25 11:29 81 mg DAILY LISETTE Administration Atorvastatin Calcium 10 mg 08/01/25 21:00 08/07/25 21:56 Atorvastatin Calcium 10 Mg Tablet PO 08/31/25 20:59 10 mg HS LISETTE Administration Dextrose 25 ml 08/01/25 05:16 08/07/25 08:37 Dextrose 50%-Water Inj 50 Ml Syringe IV 08/31/25 05:15 25 ml Q15MIN PRN Administration BG 50-70 responsive npo pt Dextrose 50 ml 08/01/25 05:16 Dextrose 50%-Water Inj 50 Ml Syringe IV 08/31/25 05:15 Q15MIN PRN BG <50 OR BG <70 & pt unresponsive Digoxin 0.125 mg 08/04/25 13:45 08/08/25 08:40 Digoxin Inj 0.25 Mg/Ml Amp 2 Ml IVP 09/03/25 13:44 0.125 mg QDAY LISETTE Administration Glucagon 1 mg 08/01/25 05:16 Glucagon Inj 1 Mg Vial IM Q15MIN PRN BG <70, and no IV access Piperacillin Sod/Tazobactam 100 mls @ 200 mls/hr 08/01/25 12:00 08/08/25 05:12 Sod 2.25 gm/ Sodium Chloride IV 08/08/25 11:59 200 mls/hr Q6HR LISETTE Administration Protocol Heparin Sodium/Dextrose 25,000 unit in 250 mls @ 10.093 mls/hr 08/02/25 14:00 08/08/25 07:01 Heparin In D5w Ivpb IV 08/16/25 13:59 9.7 units/kg/hr .Q24H LISETTE 10.093 mls/hr Protocol Titration 9.7 UNITS/KG/HR Diltiazem/Sodium Chloride 100 mg in 100 mls @ 10 mls/hr 08/04/25 09:33 08/07/25 21:56 Diltiazem In Ns 100 Mg IV 09/03/25 09:32 10 mg/hr .Q10H LISETTE 10 mls/hr 10 MG/HR Administration Insulin Degludec 35 unit 08/01/25 09:00 08/08/25 09:05 Insulin Degludec 5 Unit/0.05 Ml (Per 5 Units) SC 08/31/25 08:59 Not Given QDAY LISETTE Insulin Human Lispro 0 unit 08/01/25 07:30 08/08/25 06:39 Insulin Lispro (Admelog) 1 Unit/0.01 Ml Unit SC 08/31/25 07:29 Not Given ACHS [facility] Protocol Ipratropium [place] 0.5 mg 08/02/25 17:04 Ipratropium Rt 0.5 Mg/ 2.5 Ml Nebu INH 09/01/25 17:03 Q6HR PRN SHORTNESS OF BREATH Lansoprazole 30 mg 08/08/25 09:00 08/08/25 08:49 Lansoprazole 30 Mg Tab.Rap.Dr VALVERDE 09/07/25 08:59 30 mg QDAY LISETTE Administration Levalbuterol HCl 0.63 mg 08/02/25 17:04 Levalbuterol Rt 0.63 Mg/3 Ml Nebu INH 09/01/25 17:03 Q6H PRN WHEEZING Levothyroxine Sodium 70 mcg 08/02/25 09:00 08/08/25 08:42 Levothyroxine Inj 100 Mcg Vial IV 09/01/25 08:59 70 mcg QDAY LISETTE Administration Methylprednisolone Sodium Succinate 16 mg 08/02/25 09:00 08/08/25 08:40 Methylprednisolone Sod Succ 40 Mg/Ml Vial IVP 08/09/25 08:59 16 mg QDAY LISETTE Administration Polyethylene Glycol 17 gm 08/01/25 09:00 08/08/25 08:40 Polyethylene Glycol 17 Gm Packet PO 08/31/25 08:59 17 gm DAILY LISETTE Administration Pramipexole Dihydrochloride 1 mg 08/01/25 21:00 08/07/25 21:55 Pramipexole 0.25 Mg Tablet PO 08/31/25 20:59 1 mg HS LISETTE Administration Sennosides 1 tab 08/01/25 09:00 08/08/25 08:39 Senna Tablet PO 08/31/25 08:59 1 tab QDAY LISETTE Administration Protocol Sodium Chloride 3 ml 08/01/25 02:11 Sodium Chloride Rt Srav[place] 0.9% 3 Ml Nebu INH 08/31/25 02:10 PRN PRN SOLN Venlafaxine HCl 150 mg 08/01/25 09:00 08/08/25 08:40 Venlafaxine Xr 37.5 Mg Capcr PO 08/31/25 08:59 150 mg DAILY LISETTE Administration Plan Ms. Coffman is a 89-year-old female with past medical history of ILD/pulmonary fibrosis/chronic hypersensitivity pneumonitis with chronic respiratory failure on 2 L home oxygen and BiPAP currently on steroid taper, pulmonary arterial hypertension, heart failure with preserved ejection fraction, EF 60-65%, chronically bedbound, recurrent MDR UTIs, hypothyroidism, right breast cancer status postlumpectomy with lymph node dissection, insulin-dependent type 2 diabetes mellitus, GERD, depression, chronic back pain and nephrolithiasis who presented to [facility] emergency department on 08/01/2025 with a chief complaint of hypoxia. Cardiology was consulted for management of new onset Afib on EKG. #New Onset A Fib with RVR -diagnosed July 2025 Patient has SOB. Denies palpation or chest pain. EKG showed irregularly irregular rhythm rate 155 with RBBB. MAT ruled out. No history of atrial fibrillation CHADSVASc score 6 HASBLEED score 3. High Risk of major bleeding Was given diltiazem IV 20 mg x 1 and was started on diltiazem gtt. 5 mg/h which was increased to 10 mg/h as patient continued to remain tachycardic On August 03 patient was noted to be significantly tachycardic with low blood pressure, was given total IV digoxin 0.625 mg loading dose and now on Digoxin 0.125mg po qd - rate controlled now Plan: -Continue with Diltiazem drip for now and digoxin 0.125 mg once daily as the heart rate is controlled. -Change to Oral immediate release cardizem 60mg qid, Digoxin 0.125mg po qd for rate control and eliquis 5mg po bid for anticoagulation when G-tube can use. -Can change the immediate release in Cardizem 60 mg 4 times daily to Cardizem CD 240 mg once daily can be given through the G-tube you can change to -Discontinue heparin drip once Eliquis started. -Check digoxin level August 10 -Recommend Holter monitor outpatient to assess A fib burden. 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 Pulmonology notes reviewed. Patient steroid taper is being managed by resident clinic outpatient with recommendations from pulmonology remotely. Patient has had multiple admissions for hypercapnia, [facility] Patient does have history of heart failure, HFpEF with a EF 60 to 65%, never seen a products mechanical design engineer outpatient, patient not on diuretics outpatient per resident clinic note as patient has chronic hypercapnia and diuresis causes contraction alkalosis causing further respiratory decompensation. CXR (08/02/2025): extensive bilateral lung opacity, Mild enlargement cardiac contour with significant vascular congestion on physical exam 1+ edema noted bilateral hips. Patient's underlying respiratory status and lieu of ILD flare/aspiration pneumonia ECHO (08/02/2025) showed: 1. Left ventricle size is normal and systolic function is normal. Estimated ejection fraction is 60-65%. There is indeterminate diastolic function due to afib. There is mild concentric hypertrophy noted. 2. Right ventricle is not well visualized. RV function appears normal. 3. There is mild aortic valve sclerosis with no stenosis. 4. Mild thickening of the mitral valve leaflets. Mild MR, mild MAC. Mild TR. 5. Normal IVC with estimated RA pressure 3 mmHg. 6. Prior study from 12/29/2024. Plan: -Hold diuresis now as patient does not have signs of fluid overload and restart Lasix via G-tube if patient is fluid overloaded. -Strict intake and output, daily weight -Fluid restriction 1500ml, cardiac diet -Keep magnesium greater than 2 and potassium greater than 4 at all times -Management of respiratory disease per primary team #?Pulmonary Hypertension, Group III #Hx of Interstitial Lung Disease - Patient has established diagnosis of interstitial lung disease, pulmonary fibrosis secondary to chronic hypersensitivity pneumonitis - Patient had echo in the past with elevated right-sided pressures suggestive of pulmonary hypertension - Chest CT (08/01/2025): Pulmonary artery hypertension, Severe pneumonia and/or edema throughout the lungs - Recommend outpatient workup for pulmonary hypertension Plan: -BiPAP prn -Duoneb prn -Steroid taper per pulmonology # Hypertension In ED, 155/80 blood pressure well-controlled -Start on immediate release cardizem 60mg qid PO #Hypernatremia #Acute on chronic hypoxic hypercapnic respiratory failure, likely secondary to #Aspiration pneumonia #Sepsis #GPC bacteremia #Lactic acidosis #Leukocytosis #UTI #Insulin-dependent type 2 diabetes #Esophageal stenosis s/p dilation #Chronic normocytic anemia #Hyperlipidemia #Hypothyroidism #Chronic constipation #Depression #Parkinson -Management per Primary Hospitalist team Thank you for allowing us to participate in the care of Ms Adelaida Coffman. Cardiology will continue to follow Assessment and plan discussed with my attending physician Dr. Tj Stovall (PGY-1) - Internal medicine resident Attending Provider Attestation/Addendum I have personally seen and examined the patient separately on the above date of service and discussed the plan of care with the resident. I reviewed the resident Dr. Freedom Stovall consultation progress note and agree with the resident findings and plan in the note above and have also edited the documentation to reflect my findings and plan. Steven Spencer M.D. Interventional Cardiology
--- NOTE | 2025-08-08 09:54 | ESPR_ITS ---
<Statement entered by John Paul Warren MD - 08/12/25 08:35> I reviewed above note and agree with findings and plans. I have also personally examined the patient with medicine team and went over assessment and plan with medical team including fashion buying internship and resident physician. <Statement entered by Jeffry Eller MD - 08/09/25 12:36> In summary: 89-year-old female with extensive PMHx including chronic respiratory failure secondary to interstitial lung disease and pulmonary fibrosis (BiPAP dependent 2/2 chronic CO2 retention), currently on prolonged STEROID taper since last admission for acute hypoxic respiratory failure, HFpEF, hypothyroidism, right breast cancer s/p neurectomy, IDDM presented with hypoxemia respiratory acidosis in settings of aspiration pneumonia with elevated lactate and findings of bilateral pneumonia on CXR. She has Pseudomonas UTI for which she is on ZOSYN. 1/2 blood Cx grew Staph epidermidis (likely contaminant) and 1/2 blood cx grew yeast (unlikely, labs and current status do not reflect fungusemia). ID evaluated and recommended continue ZOSYN for now vs. LEVOQUIN. HR continues to be stable and cardiology is managing meds including DILTIAZEM, DIGOXIN and HEPARIN. Will follow up with DIGOXIN level on 08/03/2025. She has been empirically started D5W for now. She underwent successful PEG tube placement and was transferred to ICU as planned for extubation. She will remain under ICU care and will undergo extubation to BiPAP tomorrow. Will assume care once she is ready for downgrade. I?ve reviewed the note and agree with this assessment and plan, with the exceptions outlined above. I personally went over the labs, imaging, home medications, and prior records, and examined the patient. The case was also reviewed with the attending physician. Please note: this document was transcribed using voice recognition technology; minor inaccuracies may be present. Jeffry Eller DO PGY II Documentation for date of: 08/08/25 Subjective Subjective Interval history: 89-year-old female past medical history of interstitial lung disease, pulmonary fibrosis, chronic CO2 retention on 2 L home oxygen and BiPAP, HFpEF, bedbound, recurrent UTIs, hypothyroidism, right breast cancer status postlumpectomy, insulin-dependent type 2 diabetes, GERD, depression, and chronic back pain who presented to the ED in the document design specialist hours of 08/01/2025 with hypoxemia. Patient was on BiPAP and most history was gathered from the caregiver. Per the caregiver, patient ate lunch the day before and began to have coughing episodes. These episodes were intensified after the patient ate half of her dinner, at which time the caregiver took away the patient's food. Caregiver mentioned that the patient was coughing up phlegm with no food particles, and was concerned for aspiration and therefore called EMS. When the ambulance arrived it was reported that the patient was saturating in the high 30s. Per EMS the patient was saturating at 68% on 2 L nasal cannula and went up to the mid 80s after 2 albuterol treatments and route. Patient was admitted for acute on chronic hypoxic hypercapnic respiratory failure secondary to interstitial lung disease and possible aspiration pneumonia as well as UTI. 08/01/25: Patient was evaluated this morning with clinical psychologist licensed present at the bedside. Patient is currently on BIPAP with a flow rate of 40, saturating at 93%. The patient is alert and oriented to person, place, and year, and reports no complaints at this time. Per clinical psychologist licensed, patient has had several hospitalizations due to similar symptoms of shortness of breath and asymptomatic recurrent UTIs. Blood culture came back positive for gram positive cocci resembling staph in one of the bottles - started Vancomycin. 08/02/25: No acute events overnight. The patient was evaluated at the bedside this morning and was on BIPAP at 40%. Blood cultures from both bottles returned positive for gram-positive cocci, and vancomycin was initiated. An echocardiogram has been ordered and pending. Patient did not pass swallow screen yesterday. Speech therapy assessed the patient this morning and noted audible air after every swallow, followed by regurgitation that persisted for 15 minutes. The patient required oral suction with strong coughing. Desaturation occurred, dropping to 85%, accompanied by an elevated heart rate. As a result, the patient was placed NPO, and respiratory therapy was called for deep suctioning and to place the patient on high-flow oxygen. An ABG, CXR, and EKG were ordered. The CXR revealed significant bilateral pneumonia with an ARDS pattern, while the EKG showed atrial fibrillation with rapid ventricular response. On 02/08/25, the patient was seen by Dr. Peters for esophageal dilation of esophageal stenosis, and Dr. Peters has been consulted. Due to difficulty establishing IV access, plan to place central line. The patient requires heparin and diltiazem infusions for the atrial fibrillation with RVR. Cardiology has been consulted. 08/03/25: No acute events overnight. The patient was assessed at the bedside this morning. Initially on HFNC, the patient was weaned off and transitioned to BiPAP. A central line was placed today due to difficulty with IV access. Urine culture preliminary results show gram-negative rods, Zosyn will be continued. 2/2 blood culture was positive for Staphylococcus epidermidis, will repeat blood cultures and continue Vancomycin. The heart rate remains elevated despite diltiazem 10 mg and two doses of digoxin (0.25 mg x1, 0.125 mg x1), with no significant improvement in heart rate. Further recommendations are pending from cardiology. 08/04/25: No significant events overnight. The patient was seen this morning with the clinical psychologist licensed at the bedside. Will speak with Dr. Jerez regarding the management of the patient's respiratory status, as he has been overseeing her care as her makeup sales advisor. The patient is currently receiving methylprednisolone 16 mg IV and continues on BIPAP. Hypernatremia was noted on AM labs, and D5W was administered since the patient is on BIPAP and NPO, with an inability to place an NG tube for free water flushes. Will continue to trend sodium. Dr. Peters will perform an EGD once the patient's respiratory condition stabilizes. Cardiology is actively following the patient and will continue diltiazem and heparin drip for afib. Tachycardia has resolved. A KUB was ordered due to the patient's complaints of abdominal pain, which revealed a large stool burden. The patient's last bowel movement was yesterday. A water enema has been ordered. 08/05/25: No acute events overnight. A repeat blood culture grew 1/2 yeast, and the patient was given one dose of Micafungin. Infectious Disease was consulted. The patient remains hypernatremic following D5W administration yesterday. An NG tube will be placed to initiate free water flushes, with a free water deficit of 1.9L to reach a sodium goal of 145. Water flushes will be administered at 250cc every four hours. Sodium levels will continue to be monitored every 6 hours. Phosphate has been repleted. The patient remains on BiPAP, and Dr. Jerez recommends continuing steroids for lung support. 08/06/25: Patient seen and examined at bedside this morning. She is awake and able to nod yes/no but is limited in verbal communication due to BiPAP use. Denies chest pain. Reports ongoing shortness of breath when off BiPAP. Per nursing and respiratory therapy, patient was trialed on Oxymask at 7 L/min and was able to tolerate this for approximately 1.5 hours; however, she subsequently desaturated and required transition back to BiPAP. No new fevers or chills reported. Remains NPO and understands she is unable to eat or drink at this time. Family updated regarding current respiratory status and ongoing care plan. 08/07/25: NAOE. Plan for EGD with PEG tube today for termite helper nutritional support. Discussed with lead patient care technician at beside that there's a possibility that patient may require stay in the ICU if she cannot be safely extubated after general anesthesia. Na level stable at 144. Patient requires to be on BiPAP all the time at this point. 08/08/25: NAOE. EGD PEG placement postponed from yesterday to today @ 3pm. Discussed with patient at bedside again for the possibility for her to stay at ICU until she can be safely extubated. Na 144, stable. Pause Insulin Degludec today given glucose of 96 this morning and patient had not been eating. Maintanence D5NaCl started @60ml/hr, will d/c once patient start feeding via PEG tube. Exam Vital Signs Temp Pulse Resp BP Pulse Ox O2 Del Method O2 Flow Rate 97.1 F 64 16 136/67 H 94 L BiPAP 7 08/08/25 08:00 08/08/25 08:40 08/08/25 08:00 08/08/25 08:40 08/08/25 08:00 08/08/25 08:00 08/06/25 12:00 FiO2 35 08/08/25 07:48 Narrative Exam General: Somnolent, on BiPAP. Obese habitus, BMI 37. HEENT: Normocephalic, atraumatic. Neck: Supple, thick neck. Cardiovascular: Regular rate and rhythm. No murmurs, rubs, or gallops. Respiratory: Crackles to all lung zones. Abdomen: Soft, nontender, nondistended. Objective Labs 08/08/25 05:07 08/08/25 05:07 Labs: Laboratory Results - last 24 hr 12/21/25 12/21/25 12/22/25 15:27 19:53 05:07 WBC 13.2 H RBC 3.17 L Hgb 9.3 L Hct 30.9 L MCV 98 MCH 29.3 MCHC 30.1 L RDW Std Deviation 56.9 H Plt Count 186 Neut % (Auto) 73 Lymph % (Auto) 7 L Winn % (Auto) 7 Eos % (Auto) 0 Baso % (Auto) 0 Neut # (Auto) 9.6 H Lymph # (Auto) 0.9 L Winn # (Auto) 0.9 H Eos # (Auto) 0.1 Baso # (Auto) 0.0 Immature Gran # (Auto) 1.75 H Absolute Nucleated RBC 0.15 H Immature Gran % 13 H Nucleated RBC % 1 H APTT 59.2 H D 61.7 H Sodium 143 144 Potassium 4.1 Chloride 101 Carbon Dioxide 36.9 H Anion Gap 6 L BUN 13 Creatinine 0.8 Estim Creat Clear Calc 58.8 L eGFR > 60 BUN/Creatinine Ratio 16 Glucose 89 Calculated Osmolality 285 Calcium 9.6 Corrected Calcium 10.3 H Phosphorus 3.3 Magnesium 2.0 Total Bilirubin 0.4 AST 20 ALT 48 Alkaline Phosphatase 58 Total Protein 5.3 L Albumin 3.1 L Globulin 2.2 L Albumin/Globulin Ratio 1.4 ABG Interpretation ABG results: 08/01/25 08/01/25 08/02/25 02:15 09:05 12:15 ABG pH 7.25 L 7.30 L ABG pCO2 74 H* 66 H ABG pO2 62 L 84 D ABG HCO3 33 H 32 H ABG O2 Saturation 95 95 ABG Base Excess 4 H 4 H VBG pH 7.27 L VBG pCO2 63 H VBG pO2 Not Performed. VBG Base Excess 0 08/03/25 08/04/25 10:44 12:13 ABG pH 7.33 L 7.33 L ABG pCO2 64 H 69 H ABG pO2 88 85 ABG HCO3 34 H 36 H ABG O2 Saturation 95 95 ABG Base Excess 6 H 8 H VBG pH VBG pCO2 VBG pO2 VBG Base Excess Quality Measures Quality Measures VTE prophylaxis Advance care planning discussed with:: patient Assessment & Plan Assessment Current Active Medications: Generic Name Dose Route Start Last Admin Trade Name Freq PRN Reason Stop Dose Admin Acetaminophen 650 mg 08/01/25 05:05 Acetaminophen 325 Mg Tablet PO 08/31/25 05:04 Q6H PRN Fever >100.4 Aspirin 81 mg 08/05/25 11:30 08/08/25 08:39 Aspirin 81 Mg Chew NG 09/04/25 11:29 81 mg DAILY LISETTE Administration Atorvastatin Calcium 10 mg 08/01/25 21:00 08/07/25 21:56 Atorvastatin Calcium 10 Mg Tablet PO 08/31/25 20:59 10 mg HS LISETTE Administration Dextrose 25 ml 08/01/25 05:16 08/07/25 08:37 Dextrose 50%-Water Inj 50 Ml Syringe IV 08/31/25 05:15 25 ml Q15MIN PRN Administration BG 50-70 responsive npo pt Dextrose 50 ml 08/01/25 05:16 Dextrose 50%-Water Inj 50 Ml Syringe IV 08/31/25 05:15 Q15MIN PRN BG <50 OR BG <70 & pt unresponsive Digoxin 0.125 mg 08/04/25 13:45 08/08/25 08:40 Digoxin Inj 0.25 Mg/Ml Amp 2 Ml IVP 09/03/25 13:44 0.125 mg QDAY LISETTE Administration Glucagon 1 mg 08/01/25 05:16 Glucagon Inj 1 Mg Vial IM Q15MIN PRN BG <70, and no IV access Piperacillin Sod/Tazobactam 100 mls @ 200 mls/hr 08/01/25 12:00 08/08/25 05:12 Sod 2.25 gm/ Sodium Chloride IV 08/08/25 11:59 200 mls/hr Q6HR LISETTE Administration Protocol Heparin Sodium/Dextrose 25,000 unit in 250 mls @ 10.093 mls/hr 08/02/25 14:00 08/08/25 07:01 Heparin In D5w Ivpb IV 08/16/25 13:59 9.7 units/kg/hr .Q24H LISETTE 10.093 mls/hr Protocol Titration 9.7 UNITS/KG/HR Diltiazem/Sodium Chloride 100 mg in 100 mls @ 10 mls/hr 08/04/25 09:33 08/07/25 21:56 Diltiazem In Ns 100 Mg IV 09/03/25 09:32 10 mg/hr .Q10H LISETTE 10 mls/hr 10 MG/HR Administration Insulin Degludec 35 unit 08/01/25 09:00 08/08/25 09:05 Insulin Degludec 5 Unit/0.05 Ml (Per 5 Units) SC 08/31/25 08:59 Not Given QDAY LISETTE Insulin Human Lispro 0 unit 08/01/25 07:30 08/08/25 06:39 Insulin Lispro (Admelog) 1 Unit/0.01 Ml Unit SC 08/31/25 07:29 Not Given ACHS LISETTE Protocol Ipratropium [place] 0.5 mg 08/02/25 17:04 Ipratropium Rt 0.5 Mg/ 2.5 Ml Nebu INH 09/01/25 17:03 Q6HR PRN SHORTNESS OF BREATH Lansoprazole 30 mg 08/08/25 09:00 08/08/25 08:49 Lansoprazole 30 Mg Tab.Rap.Dr VALVERDE 09/07/25 08:59 30 mg QDAY LISETTE Administration Levalbuterol HCl 0.63 mg 08/02/25 17:04 Levalbuterol Rt 0.63 Mg/3 Ml Nebu INH 09/01/25 17:03 Q6H PRN WHEEZING Levothyroxine Sodium 70 mcg 08/02/25 09:00 08/08/25 08:42 Levothyroxine Inj 100 Mcg Vial IV 09/01/25 08:59 70 mcg QDAY LISETTE Administration Methylprednisolone Sodium Succinate 16 mg 08/02/25 09:00 08/08/25 08:40 Methylprednisolone Sod Succ 40 Mg/Ml Vial IVP 08/09/25 08:59 16 mg QDAY LISETTE Administration Polyethylene Glycol 17 gm 08/01/25 09:00 08/08/25 08:40 Polyethylene Glycol 17 Gm Packet PO 08/31/25 08:59 17 gm DAILY LISETTE Administration Pramipexole Dihydrochloride 1 mg 08/01/25 21:00 08/07/25 21:55 Pramipexole 0.25 Mg Tablet PO 08/31/25 20:59 1 mg HS LISETTE Administration Sennosides 1 tab 08/01/25 09:00 08/08/25 08:39 Senna Tablet PO 08/31/25 08:59 1 tab QDAY LISETTE Administration Protocol Sodium Chloride 3 ml 08/01/25 02:11 Sodium Chloride Rt Sravani 0.9% 3 Ml Nebu INH 08/31/25 02:10 PRN PRN SOLN Venlafaxine HCl 150 mg 08/01/25 09:00 08/08/25 08:40 Venlafaxine Xr 37.5 Mg Capcr PO 08/31/25 08:59 150 mg DAILY LISETTE Administration Plan 89-year-old female with chronic ILD/pulmonary fibrosis with chronic CO2 retention on home BiPAP, HFpEF, IDDM, and esophageal stenosis, admitted for acute on chronic hypoxic hypercapnic respiratory failure secondary to aspiration pneumonia, complicated by sepsis from Pseudomonas UTI, new-onset atrial fibrillation with RVR, severe dysphagia requiring NPO status and NG tube, and limited respiratory reserve with inability to tolerate sustained wean from BiPAP. #Esophageal stenosis s/p dilation - s/p EGD with dilation for dysphagia secondary to esophageal stenosis on 02/08/2025. - GI recommended checking TSH and T4 to make sure patient is on adequate supplement as hypothyroidism can cause dysphagia. Both within normal range. - Persistent dysphagia is a major contributor to recurrent aspiration and respiratory failure. Plan: * Extensive [id number] discussion held with patient?s nephew, Jg, regarding risks, benefits, and alternatives to intervention, including hospice and palliative care. * Family understands the high risk of respiratory failure and prolonged intubation. * Family elects to proceed with EGD under monitored anesthesia care (MAC) despite elevated procedural risk. * Ongoing aspiration is suspected to be driven by severe dysphagia from esophageal stenosis, contributing to recurrent respiratory decompensation. * GI discussed that definitive options are limited to esophageal dilation or PEG tube placement, both of which require intubation and sedation. * Pulmonology has expressed concern that given the patient?s chronic pulmonary disease and BiPAP dependence, safe extubation following the procedure may not be possible. * Plan for EGD w/ PEG tube 08/08/[address] Peters under [place], may require ICU stay in cannot be safely extubated. #Acute on chronic hypoxic hypercapnic respiratory failure, likely secondary to #Aspiration pneumonia #Pulmonary arterial hypertension #Interstitial lung disease #Pulmonary fibrosis - Known history of chronic interstitial lung disease and pulmonary fibrosis, contributing to chronic respiratory failure, chronic CO2 retention, and the need for BiPAP and home oxygen (2L). - Current acute exacerbation appears to be triggered by aspiration, likely exacerbated by recent intensified coughing after meals. The patient had worsening respiratory distress following dinner, with increasing cough and suspected aspiration of food. - Initial lactate was elevated at 2.4 --> 2.7 --> 2.3. Given the hypoxia and respiratory failure, the lactic acidosis may be due to tissue hypoperfusion and/or poor oxygenation. - Initial ABG showed pH 7.25, pCO2 74, pO2 62, bicarb 33, represents respiratory acidosis. - CXR 08/01: extensive bilateral pneumonia, prominent vascular congestion. - Patient is currently on a prednisone taper for ILD. - Patient failed ST swallow screen. - EGD and esophageal dilation on 02/08/25 for esophageal stenosis. - ABG 08/03: pH 7.33, pCO2 64, HCO3 34. Plan: * Pulmonology consulted, patient deemed high risk for intubation and prolonged ventilator dependence. * Continue strict NPO status and aspiration precautions. * Switched DuoNebs to Levalbuterol as patient is tachycardic. * Continuous pulse oximetry to closely monitor oxygen saturation. * Aspiration precautions. * Switched Prednisone 20mg PO QD to Methylprednisolone 16 mg IV QD as patient is NPO. Given the patient's history of interstitial lung disease, the steroid taper should proceed as planned, maintaining the current dose for 1 more week before reassessment. * Monitor for signs of worsening pneumonia or other complications. * Pulmonology has evaluated the patient and expressed concern that intubation for procedures may result in prolonged mechanical ventilation with high risk of inability to safely extubate, given chronic lung disease and BiPAP dependence. * Trial oxymask today (08/06) however patient desaturated after 1.5 hour, resumed BIPAP. #Sepsis #Staphylococcus epidermidis bacteremia #Pseudomonas aeruginosa UTI #Lactic acidosis #Leukocytosis - Etiology: Staphylococcus epidermidis bacteremia with suspected urinary tract infection as the source? - Lactate: 2.4 --> 2.7 --> 2.3. - WBC 23.2 on admission. - Blood culture 08/01: 2/2 GPC bacteremia. Staphylococcus epidermidis. - UA: 1+ protein, 44 RBC, 76 WBC, amorphous crystals, budding yeast, leukocyte esterase positive. Previous culture was positive for pansensitive Klebsiella Ozaenae. - Urine culture 08/01: Pseudomonas aeruginosa. Sensitive to Zosyn. - CXR: extensive bilateral pneumonia, prominent vascular congestion. - Fluids: 30 mL/kg, 2L of LR given in ED. - Blood culture 08/03: Yeast. Received one dose of Micafungin 50 mg. - Blood culture 08/05: NGTD Plan: * Infectious Disease consulted, recommend continue Zosyn at this time vs transition to Levofloxacin. * Stop Vancomycin * No further antifungal therapy recommended after single dose of micafungin. * Zosyn 2.25 g every 8 hours for UTI (08/01-08/08). * Oxygen / Ventilation: BiPAP. * Renal: strict I&O, avoid nephrotoxins. * CBC/BMP daily or more frequent if unstable. * Monitor organ dysfunction resolution or progression. * Continue to monitor repeat blood cultures and clinical status. #New onset Atrial fibrillation with RVR - EKG on 08/02 showed irregularly irregular rhythm rate 155 with RBBB. - No history of atrial fibrillation. - CHADSVASc score 6. - HASBLEED score 3. High Risk of major bleeding. - Was given diltiazem IV 20 mg x 1 and was started on diltiazem gtt. 5 mg/h which was increased to 10 mg/h as patient continued to remain tachycardic. - Three doses of digoxin (0.25 mg x2, 0.125 mg x1) given on 08/03 for tachycardia. Plan: * Cardiology consulted - appreciate recs. * Heparin drip --> transition to oral Eliquis when no contraindications. * Diltiazem 10mg/hr drip. --> transition to PO once able, and start cardizem 240mg PO. * IV digoxin 0.125 QD --> transition to PO once able. * Check digoxin level 08/10. * Keep potassium greater than 4 and magnesium greater than 2 at all times. #Hypernatremia #Hyperkalemia (resolved) - On admission, sodium 148 and potassium 5.2. - Likely secondary to decreased oral intake, lack of insulin, or hyperglycemia. - Patient received fluids in the ED and will start receiving insulin sliding scale. - Sodium continues to uptrend, peak at 153 on 08/04. - D5W given 08/04, sodium 153 --> 151. Plan: * NG tube placed. * Continue free water flushes at 250 cc per four hours for free water deficit of 1.9L. * Trend sodium levels Q6H. #NSTEMI - Likely secondary to demand ischemia. - Troponin of 0.051 --> 0.030. - EKG showed sinus tachycardia with a rate of 131 QTc 473, widened upright QRS in V1 may represent right bundle branch block, No acute ST segment changes in other leads Plan: * Continue to monitor for chest pain. #Insulin-dependent type 2 diabetes - Per caregiver the patient is on 35 units of Lantus every morning, sliding scale, and 8 units regular 3 times daily with meals. - Hemoglobin A1c 2 months ago was 6.4. - Glucose on admission was 241. Plan: * Insulin degludec 35 units QD. * Insulin sliding scale. * Carb consistent diet once patient passes swallow eval. #Chronic normocytic anemia - Hemoglobin 11.8, MCV 101. - Likely secondary to anemia of chronic disease secondary to history of breast cancer and interstitial lung disease. - No suspicion for active bleed at this time. Plan: * No direct intervention at this time. * Monitor CBC. #Chronic diastolic CHF, HFpEF - Echo from 12/2024 showed EF 65%. Trace mitral and trace tricuspid regurgitation, No wall motion abnormalities noted. - BNP 193. - CXR (08/02/2025): extensive bilateral lung opacity, Mild enlargement cardiac contour with significant vascular congestion on physical exam 1+ edema noted bilateral hips. - Patient's underlying respiratory status and lieu of ILD flare/aspiration pneumonia. - Echo 08/02/25: ejection fraction is 60-65%. Plan: * Strict I and Os. * Fluid restriction 1500ml. * Patient is not on diuretics outpatient because of chronic hypercapnia and diuresis can cause contraction alkalosis causing further respiratory decompensation. * Hold diuresis for now as patient does not seemed to be fluid overloaded. #Hyperlipidemia Plan: * Hold atorvastatin 10 mg nightly as patient is NPO. #Hypothyroidism - Home medication: Levothyroxine 100 mcg daily. Plan: * Levothyroxine 70 mcg IV QD as patient is NPO. #Chronic constipation - Per caregiver, the patient's last bowel movement was 07/30/2025. - Last bowel movement 08/03. - KUB 08/04: large amounts of stool throughout the colon. Plan: * Daily senna and MiraLAX. * Water edema ordered. #Depression Plan: * Hold home Venlafaxine 150 mg XR p.o. daily as patient is NPO. #Parkinson Plan: * Hold home pramipexole 1 mg nightly as patient is NPO. Health Maintenance Disposition: tele, PEG tube placement DVT prophylaxis: Heparin gtt GI prophylaxis: Pantoprazole 40 mg IV daily Diet: NPO [place]: In place Lines: Peripheral IV CODE STATUS: DNR/DNI Case discussed with my senior resident Dr. Eller Case discussed with my attending Dr. Kelvin Combs, PGY 1
--- NOTE | 2025-08-08 10:51 | PC.RT ---
RT spoke with md regarding concern over pt being unable to come off bipap for any extended period of time. Md aware.
[2025-08-08] MEDS: DEXTROSE 5%-NS 1,000 ML 60 ML IV (11:36)
--- NOTE | 2025-08-08 15:13 | PC.RT ---
Pt taken to PEG procedure @ 1500 on bipap, scheduler conveyor's at bedside, no issues, pt tolerated well.
--- NOTE | 2025-08-08 15:30 | SUR.OPER ---
PATIENT TRANSFERED FROM OR5 TO ICU ROOM 255 BY MARIAH QUEZADA, TAMMY QUEZADA, AND ANESTHESIOLOGIST. BEDSIDE REPORT GIVEN TO DANITA QUEZADA.
[2025-08-08] MEDS: DEXMEDETOMIDINE 400 MCG IVPB 400 MCG/100 ML BAG 5.325 MCG IV (15:42)
--- NOTE | 2025-08-08 16:03 | ESCONSULT_ITS ---
<Statement entered by Liborio Aguila MD - 08/08/25 18:47> I have reviewed the note and agree with the resident's assessment & plan with exceptions as below. I have personally reviewed labs, imaging, home meds/prior records, examined the patient, formulated and discussed management plan with the IM team. Pt examined at bedside today. Pt was upgraded to ICU as patient was intubated for PEG tube placement. Pt will be in ICU for ventilation, optimize of peak pressures, and end tidal CO2. Will diuresis patient today, start PEG tube feeding (RD on consult), continue with Precedex, fentanyl pushes as needed. Will continue with Dilt drip at this time, transition to oral immediate release cardizem 60 mg QID for tomorrow as PEG there is no PEG tube compatibility with Cardizem CD. Will start Digoxin tomorrow PO, ordered Dig level for 08/10. Started Eliquis 5 mg BID for tonight. Will attempt SAT and SBT tomorrow for extubation as long as patient improves. Repeat hematology and chemistry in AM. PO medicines transitioned to GT. #Esophageal stenosis s/p dilation #Acute on chronic hypoxic hypercapnic respiratory failure, likely secondary to #Aspiration pneumonia #Pulmonary arterial hypertension #Interstitial lung disease #Pulmonary fibrosis #Sepsis #Staphylococcus epidermidis bacteremia #Pseudomonas aeruginosa UTI #Lactic acidosis #Leukocytosis #New onset Atrial fibrillation with RVR #Hypernatremia #Hyperkalemia (resolved) #NSTEMI type II, likely related to demand ischemia, resolved #Insulin-dependent type 2 diabetes #Chronic normocytic anemia #Chronic diastolic CHF, HFpEF #Hyperlipidemia #Hypothyroidism #Chronic constipation #Depression #Parkinson Liborio Aguila, PGY-2 Internal Medicine HPI Data of Consult Requesting Physician: John Paul Warren MD Admitting Provider: Jes Sol MD Attending Provider: John Paul Warren MD Primary Care Provider: Physician No Primary/Family Consult Narrative Reason for consult: s/p intubation for egd and peg tube, pending extubation History of present illness: Ms Coffman is a 89-year-old woman with a past medical history of interstitial lung disease, pulmonary fibrosis, chronic CO2 retention on 2 L home oxygen and BiPAP, HFpEF 60-65%, new onset Afib with RVR , bedbound, recurrent UTIs, hypothyroidism, right breast cancer status postlumpectomy, insulin-dependent type 2 diabetes, GERD and recurrent esophageal strictures s/p multiple esophageal dilations, depression, and chronic back pain who presented 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 08/08/2025: Patient seen and examined at bedside. she was s/p egd with dilation and peg tube placement. she remains intubated and mechanically ventillated. on precedex and fent pushes for sedation. plan to trial spontaneous breathing trial tomorrow. optomize ventilation to get her to baseline co2 retention by monitoring pco2 or end tidal of around 37. goal is not to overventilate. et confirmed above the gt. peg tube feeds initiated at trickle rates per dietitian recs. cc:: cc: John Paul Warren MD Exam Vital Signs Temp Pulse Resp BP Pulse Ox O2 Del Method O2 Flow Rate 97.2 F 87 22 H 167/71 H 91 L BiPAP 7 08/08/25 12:00 08/08/25 14:50 08/08/25 14:50 08/08/25 12:00 08/08/25 14:50 08/08/25 12:00 08/06/25 12:00 FiO2 30 08/08/25 14:50 Narrative Exam Physical Exam General: Chronically ill-appearing woman, mech ventilated, intubated obese habitus. HEENT: Normocephalic, atraumatic. RIJ central line Heart: Regular rate and rhythm, normal S1 and S2, no murmurs. Lungs: Diffuse crackles bilaterally. mech ventilation Abdomen: Obese, firm, distended,.unable to assess for rebound or tenderness Neurologic: sedated on presedex. not able to assess neurologic fxn Extremities: No edema, clubbing or cyanosis. No joint deformity. Skin: Warm and dry , scatterd bruising of the UE at the hands . : Queen in place, draining yellow urine. Results Labs 08/14/25 06:10 08/14/25 06:10 Labs: Short CBC 08/08/25 Range/Units 05:07 WBC 13.2 H (3.6-11.0) Thou/mm3 Hgb 9.3 L (12.0-16.0) g/dL Hct 30.9 L (36.0-46.0) % Plt Count 186 (140-440) Thou/mm3 BMP 08/07/25 08/08/25 19:53 05:07 Sodium 143 144 Potassium 4.1 Chloride 101 Carbon Dioxide 36.9 H BUN 13 Creatinine 0.8 Glucose 89 Calcium 9.6 Liver Function 08/08/25 Range/Units 05:07 Total Bilirubin 0.4 (0.3-1.2) mg/dL AST 20 (0-34) U/L ALT 48 (10-49) U/L Alkaline Phosphatase 58 (46-116) U/L Albumin 3.1 L (3.4-4.8) gm/dL ABG Interpretation ABG results: 08/01/25 08/01/25 08/02/25 02:15 09:05 12:15 ABG pH 7.25 L 7.30 L ABG pCO2 74 H* 66 H ABG pO2 62 L 84 D ABG HCO3 33 H 32 H ABG O2 Saturation 95 95 ABG Base Excess 4 H 4 H VBG pH 7.27 L VBG pCO2 63 H VBG pO2 Not Performed. VBG Base Excess 0 08/03/25 08/04/25 10:44 12:13 ABG pH 7.33 L 7.33 L ABG pCO2 64 H 69 H ABG pO2 88 85 ABG HCO3 34 H 36 H ABG O2 Saturation 95 95 ABG Base Excess 6 H 8 H VBG pH VBG pCO2 VBG pO2 VBG Base Excess Quality Measures Quality Measures VTE prophylaxis Advance care planning discussed with:: other Medications Home Medications and Allergies Home Medications ?Medication ?Instructions ?Recorded ?Confirmed ?Type methenamine hippurate 1 gram tablet 1 g PO BID 0 08/03/25 History omeprazole 40 mg capsule,delayed 40 mg PO QDAY 1 08/02/25 History release aspirin 81 mg tablet 81 mg PO QDAY 03/19/2408/02 History hydrocodone 10 mg-acetaminophen 1 tab PO TID PRN pain 12/27/24 08/02/25 History 325 mg tablet lactobacillus comb no.10 20 25,000 mmu cells PO QDAY 0 12/27/24 08/02/25 History billion cell capsule (Probiotic) hydroxyzine HCl 25 mg tablet 25 mg PO BID PRN anxiety 08/02/25 08/02/25 History Allergies Allergy/AdvReac Type Severity Reaction Status Date / Time cefuroxime Allergy Intermediate Swelling Verified 06/08/25 14:34 of Lip/Tongue/Throat zinc Allergy Intermediate Rash Verified 06/08/25 14:34 iodine Allergy Unknown Verified 06/08/25 14:34 shellfish derived Allergy Unknown Verified 06/08/25 14:34 Sulfa (Sulfonamide Allergy Unknown Verified 06/08/25 14:34 Antibiotics) Influenza Virus Vaccines Allergy Verified 06/08/25 14:34 Visit Medications Acetaminophen (Acetaminophen 325 Mg Tablet) 650 mg PO Q6H PRN PRN Reason: Fever >100.4 Stop: 08/31/25 05:04 Aspirin (Aspirin 81 Mg Chew) 81 mg NG DAILY [facility] Stop: 09/04/25 11:29 Last Admin: 08/08/25 08:39 Dose: 81 mg Atorvastatin Calcium (Atorvastatin Calcium 10 Mg Tablet) 10 mg PO HS [facility] Stop: 08/31/25 20:59 Last Admin: 08/07/25 21:56 Dose: 10 mg Dextrose (Dextrose 50%-Water Inj 50 Ml Syringe) 25 ml IV Q15MIN PRN PRN Reason: BG 50-70 responsive npo pt Stop: 08/31/25 05:15 Last Admin: 08/07/25 08:37 Dose: 25 ml Dextrose (Dextrose 50%-Water Inj 50 Ml Syringe) 50 ml IV Q15MIN PRN PRN Reason: BG <50 OR BG <70 & pt unresponsive Stop: 08/31/25 05:15 Digoxin (Digoxin Inj 0.25 Mg/Ml Amp 2 Ml) 0.125 mg IVP QDAY [facility] Stop: 09/03/25 13:44 Last Admin: 08/08/25 08:40 Dose: 0.125 mg Fentanyl Citrate (Fentanyl Cit Inj 50 Mcg/Ml Amp 2ml) 25 mcg IVP Q5M PRN PRN Reason: PAIN SCALE 1-3 (mild Stop: 08/08/25 16:22 Glucagon (Glucagon Inj 1 Mg Vial) 1 mg IM Q15MIN PRN PRN Reason: BG <70, and no IV access Hydromorphone HCl (Hydromorphone Inj 2 Mg/Ml Vial) 0.2 mg IVP Q5M PRN PRN Reason: PAIN 1-6 (mild-mod Stop: 08/08/25 16:22 Heparin Sodium/Dextrose (Heparin In D5w Ivpb) 25,000 unit in 250 mls @ 10.093 mls/hr IV .Q24H [facility]; Protocol On Hold: 08/08/25 11:18 Stop: 08/16/25 13:59 Last Titration: 08/08/25 11:33 Dose: 0 units/kg/hr, 0 mls/hr Diltiazem/Sodium Chloride (Diltiazem In Ns 100 Mg) 100 mg in 100 mls @ 10 mls/hr IV .Q10H [facility] Stop: 09/03/25 09:32 Last Admin: 08/08/25 13:45 Dose: Not Given Dextrose/Sodium Chloride (D5-Ns) 1,000 mls @ 60 mls/hr IV .[id number] [facility] Stop: 08/09/25 03:24 Last Admin: 08/08/25 11:36 Dose: 60 mls/hr Dexmedetomidine/Sodium Chloride (Precedex Ivpb) 400 mcg in 100 mls @ 5.325 mls/hr IV .[id number] PRN; Protocol PRN Reason: Per PROTOCOL Stop: 09/07/25 15:26 Last Admin: 08/08/25 15:42 Dose: 0.2 mcg/kg/hr, 5.325 mls/hr Insulin Degludec (Insulin Degludec 5 Unit/0.05 Ml (Per 5 Units)) 35 unit SC QDAY [facility] Stop: 08/31/25 08:59 Last Admin: 08/08/25 09:05 Dose: Not Given Insulin Human Lispro (Insulin Lispro (Admelog) 1 Unit/0.01 Ml Unit) 0 unit SC Q6HR [facility]; Protocol Stop: 09/07/25 11:59 Last Admin: 08/08/25 11:33 Dose: Not Given Ipratropium [place] (Ipratropium Rt 0.5 Mg/ 2.5 Ml Nebu) 0.5 mg INH Q6HR PRN PRN Reason: SHORTNESS OF BREATH Stop: 09/01/25 17:03 Lansoprazole (Lansoprazole 30 Mg Tab.Rap.Dr) 30 mg NG QDAY [facility] Stop: 09/07/25 08:59 Last Admin: 08/08/25 08:49 Dose: 30 mg Levalbuterol HCl (Levalbuterol Rt 0.63 Mg/3 Ml Nebu) 0.63 mg INH Q6H PRN PRN Reason: WHEEZING Stop: 09/01/25 17:03 Levothyroxine Sodium (Levothyroxine Inj 100 Mcg Vial) 70 mcg IV QDAY [facility] Stop: 09/01/25 08:59 Last Admin: 08/08/25 08:42 Dose: 70 mcg Methylprednisolone Sodium Succinate (Methylprednisolone Sod Succ 40 Mg/Ml Vial) 16 mg IVP QDAY [facility] Stop: 08/09/25 08:59 Last Admin: 08/08/25 08:40 Dose: 16 mg Morphine Sulfate (Morphine Sulf Inj 4 Mg/Ml Vial) 3 mg IV Q5M PRN PRN Reason: PAIN SCALE 4-6 (Moderate Stop: 08/08/25 16:22 Polyethylene Glycol (Polyethylene Glycol 17 Gm Packet) 17 gm PO DAILY [facility] Stop: 08/31/25 08:59 Last Admin: 08/08/25 08:40 Dose: 17 gm Pramipexole Dihydrochloride (Pramipexole 0.25 Mg Tablet) 1 mg PO HS [facility] Stop: 08/31/25 20:59 Last Admin: 08/07/25 21:55 Dose: 1 mg Sennosides (Senna Tablet) 1 tab PO QDAY [facility]; Protocol Stop: 08/31/25 08:59 Last Admin: 08/08/25 08:39 Dose: 1 tab Sodium Chloride (Sodium Chloride Rt Sravani 0.9% 3 Ml Nebu) 3 ml INH PRN PRN PRN Reason: SOLN Stop: 08/31/25 02:10 Venlafaxine HCl (Venlafaxine Xr 37.5 Mg Capcr) 150 mg PO DAILY [facility] Stop: 08/31/25 08:59 Last Admin: 08/08/25 08:40 Dose: 150 mg Discontinued Medications Albuterol (Albuterol Rt 2.5 Mg/0.5 Ml Nebu) 10 mg INH X1 ONE Stop: 08/01/25 02:12 Last Admin: 08/01/25 03:41 Dose: 10 mg Albuterol/Ipratropium (Albuterol/Ipratropium (Duoneb) Rt Sravani 3 Ml Nebu) 3 ml INH Q4HRRT [facility] Stop: 08/31/25 06:59 Last Admin: 08/02/25 14:43 Dose: Not Given Aspirin (Aspirin Ec 81 Mg Tabec) 81 mg PO DAILY [facility] Stop: 08/31/25 08:59 Last Admin: 08/05/25 12:14 Dose: Not Given Digoxin (Digoxin Inj 0.25 Mg/Ml Amp 2 Ml) 0.25 mg IVP X1 ONE Stop: 08/03/25 10:13 Last Admin: 08/03/25 10:29 Dose: 0.25 mg Digoxin (Digoxin Inj 0.25 Mg/Ml Amp 2 Ml) 0.125 mg IVP X1 ONE Stop: 08/03/25 11:01 Last Admin: 08/03/25 11:50 Dose: 0.125 mg Digoxin (Digoxin Inj 0.25 Mg/Ml Amp 2 Ml) 0.25 mg IVP X1 ONE Stop: 08/03/25 18:01 Last Admin: 08/03/25 18:09 Dose: 0.25 mg Diltiazem HCl (Diltiazem Inj 5 Mg/Ml Vial 5 Ml) 10 mg IV X1 ONE Stop: 08/02/25 11:54 Diltiazem HCl (Diltiazem Inj 5 Mg/Ml Vial 5 Ml) 20 mg IV X1 ONE Stop: 08/02/25 12:12 Last Admin: 08/02/25 12:51 Dose: 20 mg Heparin Sodium (Beef Lung) (Heparin Sod Lock Syr 100 Unit/Ml) 500 unit ST[place] X1 ONE Stop: 08/03/25 14:31 Last Admin: 08/03/25 14:30 Dose: 500 unit Heparin Sodium (Porcine) (Heparin Sod Inj 5000 Unit/Ml Vial) 5,000 unit SC Q8HR [facility] Stop: 08/15/25 05:59 Last Admin: 08/02/25 05:06 Dose: 5,000 unit Heparin Sodium (Porcine) (Heparin Sod Inj 5000 Unit/Ml Vial) 4,000 unit IV X1 ONE Stop: 08/02/25 14:01 Last Admin: 08/02/25 15:35 Dose: 4,000 unit Heparin Sodium (Porcine) (Heparin Sod Inj 5000 Unit/Ml Vial) 2,000 unit IVP X1 ONE Stop: 08/03/25 15:49 Last Admin: 08/03/25 16:04 Dose: 2,000 unit Heparin Sodium (Porcine) (Heparin Sod Inj 5000 Unit/Ml Vial) 2,000 unit IV X1 ONE Stop: 08/07/25 07:30 Last Admin: 08/07/25 08:32 Dose: 2,000 unit Piperacillin Sod/Tazobactam (Sod 4.5 gm/ Sodium Chloride) 100 mls @ 200 mls/hr IV X1 [facility]; Protocol Stop: 08/01/25 03:21 Last Infusion: 08/01/25 03:59 Dose: Infused Vancomycin/Sodium Chloride (Vancomycin/Ns 1 Gm Ivpb) 200 mls @ 120 mls/hr IV Q100M [facility] Stop: 08/01/25 06:19 Last Infusion: 08/01/25 07:45 Dose: Infused Lactated Ringer's (Lactated Ringers) 500 mls @ 999 mls/hr IV .Q31M ONE Stop: 08/01/25 03:30 Last Infusion: 08/01/25 03:59 Dose: Infused Lactated Ringer's (Lactated Ringers) 1,000 mls @ 999 mls/hr IV .Q1H1M ONE Stop: 08/01/25 04:26 Last Infusion: 08/01/25 05:39 Dose: Infused Lactated Ringer's (Lactated Ringers) 1,000 mls @ 999 mls/hr IV .Q1H1M ONE Stop: 08/01/25 05:31 Last Infusion: 08/01/25 07:45 Dose: Infused Doxycycline Hyclate 100 mg/ (Sodium Chloride) 100 mls @ 100 mls/hr IV BID [facility] Stop: 08/08/25 08:59 Doxycycline Hyclate 100 mg/ (Sodium Chloride) 100 mls @ 100 mls/hr IV X1 ONE Stop: 08/01/25 06:29 Last Admin: 08/01/25 06:35 Dose: Not Given Piperacillin Sod/Tazobactam (Sod 2.25 gm/ Sodium Chloride) 100 mls @ 200 mls/hr IV Q8HR [facility]; Protocol Stop: 08/08/25 13:59 Piperacillin Sod/Tazobactam (Sod 2.25 gm/ Sodium Chloride) 100 mls @ 200 mls/hr IV Q6HR [facility]; Protocol Stop: 08/08/25 11:59 Last Admin: 08/08/25 05:12 Dose: 200 mls/hr Magnesium Sulfate (Magnesium Sulfate Ivpb) 2 gm in 50 mls @ 25 mls/hr IV X1 ONE Stop: 08/01/25 12:39 Last Infusion: 08/01/25 13:44 Dose: Infused Vancomycin HCl (Vancomycin/Water 1250 Mg Ivpb) 250 mls @ 120 mls/hr IV Q24H [facility]; Protocol Stop: 08/09/25 09:59 Last Admin: 08/04/25 12:41 Dose: Not Given Diltiazem HCl (Diltiazem In D5w 125 Mg) 125 mg in 125 mls @ 5 mls/hr IV .Q24H [facility] Stop: 09/01/25 12:07 Last Infusion: 08/02/25 15:28 Dose: 5 mg/hr, 5 mls/hr Magnesium Sulfate (Magnesium Sulfate Ivpb) 2 gm in 50 mls @ 25 mls/hr IV X1 ONE Stop: 08/02/25 14:12 Last Infusion: 08/02/25 20:38 Dose: Infused Diltiazem HCl (Diltiazem In D5w 125 Mg) 125 mg in 125 mls @ 10 mls/hr IV .[id number] [facility] Stop: 09/01/25 17:04 Last Admin: 08/03/25 19:35 Dose: 10 mg/hr, 10 mls/hr Magnesium Sulfate (Magnesium Sulfate Ivpb) 2 gm in 50 mls @ 25 mls/hr IV X1 ONE Stop: 08/04/25 10:41 Last Admin: 08/04/25 09:19 Dose: 25 mls/hr Dextrose/Sodium Chloride (D5-1/2ns) 1,000 mls @ 80 mls/hr IV .[id number] [facility] Stop: 08/04/25 22:28 Last Admin: 08/04/25 10:29 Dose: 80 mls/hr Vancomycin HCl (Vancomycin/Water 1250 Mg Ivpb) 250 mls @ 120 mls/hr IV Q24H [facility] Stop: 08/11/25 12:29 Vancomycin HCl (Vancomycin/Water 1250 Mg Ivpb) 250 mls @ 120 mls/hr IV QDAY@1000 [facility] Stop: 08/11/25 12:29 Last Infusion: 08/05/25 13:00 Dose: Infused Micafungin Sodium 50 mg/ (Sodium Chloride) 100 mls @ 100 mls/hr IV X1 ONE Stop: 08/05/25 09:59 Last Infusion: 08/05/25 10:06 Dose: Infused Potassium Phosphate (Pot Phos 15 Mmol In Ns 250 Ml) 15 mmol in 250 mls @ 62.5 mls/hr IV X1 ONE Stop: 08/05/25 12:18 Last Infusion: 08/05/25 13:06 Dose: Infused Micafungin Sodium 50 mg/ (Sodium Chloride) 100 mls @ 100 mls/hr IV QDAY [facility] Stop: 08/19/25 08:59 Magnesium Sulfate (Magnesium Sulfate Ivpb) 4 gm in 50 mls @ 12.5 mls/hr IV X1 ONE Stop: 08/06/25 22:21 Last Admin: 08/06/25 21:00 Dose: 12.5 mls/hr Insulin Human Lispro (Insulin Lispro (Admelog) 1 Unit/0.01 Ml Unit) 0 unit SC AC [facility]; Protocol Stop: 08/31/25 07:29 Insulin Human Lispro (Insulin Lispro (Admelog) 1 Unit/0.01 Ml Unit) 0 unit SC [facility]; Protocol Stop: 08/31/25 07:29 Last Admin: 08/08/25 06:39 Dose: Not Given Ipratropium [place] (Ipratropium Rt 0.5 Mg/ 2.5 Ml Nebu) 1 mg INH X1 ONE Stop: 08/01/25 02:12 Last Admin: 08/01/25 03:41 Dose: 1 mg Levothyroxine Sodium (Levothyroxine Sodium 100 Mcg Tablet) 100 mcg PO ACBR [facility] Stop: 08/31/25 05:59 Last Admin: 08/02/25 05:38 Dose: Not Given Lidocaine HCl (Lidocaine Inj Pf 1% 30 Ml Vial) 7 ml INFL X1 ONE Stop: 08/03/25 14:31 Last Admin: 08/03/25 14:32 Dose: 7 ml Methylprednisolone Sodium Succinate (Methylprednisolone Sod Succ 62.5 Mg/Ml 2ml Vial) 125 mg IVP X1 ONE Stop: 08/01/25 02:12 Last Admin: 08/01/25 02:22 Dose: 125 mg Metoprolol Succinate (Metoprolol Succinate Xl 25 Mg Tabcr) 25 mg PO DAILY [facility] Stop: 08/31/25 08:59 Last Admin: 08/02/25 09:20 Dose: Not Given Metoprolol Tartrate (Metoprolol Tartrate Inj 1 Mg/Ml Vial 5 Ml) 2 mg IVP X1 ONE Stop: 08/01/25 10:41 Last Admin: 08/01/25 11:07 Dose: 2 mg Metoprolol Tartrate (Metoprolol Tartrate Inj 1 Mg/Ml Vial 5 Ml) 2.5 mg IVP X1 ONE Stop: 08/02/25 08:11 Last Admin: 08/02/25 09:18 Dose: Not Given Ondansetron HCl (Ondansetron Inj 2 Mg/Ml Inj 2 Ml) 4 mg IVP Q6H PRN; Protocol PRN Reason: NAUSEA OR VOMITING Stop: 08/31/25 05:04 Ondansetron HCl (Ondansetron Inj 2 Mg/Ml Inj 2 Ml) 4 mg IVP X1 ONE Stop: 08/08/25 14:22 Pantoprazole Sodium (Pantoprazole Inj 40 Mg Vial) 40 mg IVP QDAY [facility] Stop: 08/31/25 08:59 Last Admin: 08/05/25 09:05 Dose: 40 mg Pantoprazole Sodium (Pantoprazole 40 Mg Tablet) 40 mg PO QDAY [facility]; Protocol Stop: 09/05/25 08:59 Last Admin: 08/07/25 09:49 Dose: Not Given Pharmacy Consult (Vancomycin Pharmacy To Dose 1 Each Each) 1 each IV QDAY [facility] Stop: 08/01/25 02:52 Last Admin: 08/01/25 06:35 Dose: Not Given Pharmacy Consult (Vancomycin Pharmacy To Dose 1 Each Each) 1 each IV QDAY PRN PRN Reason: SEPSIS Stop: 08/31/25 16:59 Prednisone (Prednisone 20 Mg Tablet) 20 mg PO DAILY [facility] Stop: 08/31/25 08:59 Last Admin: 08/01/25 10:53 Dose: Not Given Sodium Chloride (Sodium Chloride Rt 10% 15 Ml Nebu) 5 ml INH X1 ONE Stop: 08/01/25 05:19 Last Admin: 08/01/25 08:25 Dose: Not Given Assessment & Plan Plan Neuro Sedated with precedex and fent pushes prn for agitation : will attempt to wean sedation in order to attempt spontaneous breathing trial tomorrow. CV New onset Afib w RVR elequis 5 bid per peg tube on diltiazem drip , will transition to po tomorrow 60 immediate release qid will restart digoxin per GT tube 0.125 tomorrow , follow up digoxin level AM draw. HoTN in setting of presidex and fent given while currently intubated and given lasix this evening. Hx of HTN Pulm Acute on chronic hypoxic hypercapnic respiratory failure, likely secondary to Aspiration pneumonia Pulmonary arterial hypertension Interstitial lung disease and pulmonary fibrosis Ddx delayed extubation in setting of chronic recurrent hypoxic respiratory failure and pulm fibrosis, she has an obese habitus with bmi 36 and large neck girth Dx she is a chronic retainer, with a baseline Co2 of Rx Mechanically Ventilated, plan to avoid over ventilating patient, monitor end tidal, goal pco2 ~37 (approximate baseline). On steroid taper for ILD, Completed course of Zosyn (08/01-08/08), in the AM plan to extubate after spontaneous breathing trail and transition to BiPAP. QAM Rxx if she is unable to be weaned off the ventilator then will continue ventilation, and reattempt GI GERD Recurrent Esophageal Strictures s/p Esophageal dilations 08/08 s/p PEG tube for [facility] nutrition 08/08 Patient has hx of recurrent strictures and multiple dilations but due to her recurrence and poor po intakes, she was prviously on dysphagia 3 diet, but was then Dx EGD with stricture, Rx dilation today, and peg tube placed for exterminator nutrition, dietitian consulted (appreciate recs) Renal no active problems, ctm renal function with diuresis ENDO Insulin Dependent Type 2 DM- well controlled Home meds: glargine 35 units qa, lispro 8 units tid, metformin 500 BID Dx A1c 6.6, Rx NPO and peg tube feeds have been initiated, dietitian consulted for recs, will hold feeds in setting of delayed extubation and concern for reaspiration event when we do extubate. Glargine 17 units hs, q6 hour glucose checks. Hypothyroidism levothyroxine 70 qam MSK chronic bed bound no active problems Skin Friable skin Ddx age related changes and edema Dx patient was on heparin drip, now on elequis. Rx gental manipulation Psych Depression - resume home psych meds. Dispo:Admitted to ICU s/p egd and peg tube with GA and delayed extubation Diet: NPO, meds per peg tube, trickle feeds resumed. Lines: PIV, Queen, RIJ triple lumen catheter, VTE ppx: elequis 5 bid GI ppx: protonix 40 qd , patient is currently intubated Bowel Reg: miralax per gt tube. Code status: DNR Case disclosed with my senior resident Dr. Aguila and my Attending Dr. Meri Reardon MD PGY1 Attending Provider Attestation/Addendum Patient seen and examined with the above resident, Graciela Reardon MD. I agree with the findings, assessment, and plan of care as documented except for any differences below. Well known to me ILD patient. On chronic steroids. Dysphagia with need for esophageal dilation, known strictures historically. Now brought to the ICU post op from EGD with PEG placement and dilation of strictures. Patient with stable mechanical ventilation settings, compliance quite good despite parenchymal disease. Adjustments made to ensure PPlat <30. Oxygenating well now. Steroids to be continued. Await GI input for TF and will aim for SAT/ SBT in AM. Patient will benefit form extubation to Bipap given chronic hypercapnic respiratory failure along with known hypoxia. Was on Bipap prior to intubation in OR as well. Cautious diuresis as well tonight to ensure best fluid status, predictor of successful weaning. Caregiver updated at bedside. Will need to clarify with nephew plans forward for DNI status, this was reversed for procedure. Ensure a limited trial to wean is warranted, discussed prior to procedure significant risk of failure to wean and she did decline tracheostomy historically as well. Will reassess SBT tomorrow AM. Sedation on for patient's comfort. Total critical care time: I personally spent 40 minutes for review of physiologic parameters, directing plan of care, coordination of care with other specialists, and counseling patient's caregiver at bedside. This is exclusive of time spent teaching housestaff or performing any separate billable procedures. Patient remains at significant risk for further morbidity/ mortality warranting close monitoring and care only available in the ICU. Critical care services required for acute on chronic hypoxic/ hypercapnic respiratory failure, interstitial lung disease/ progressive pulmonary fibrosis, dysphagia 2/2 esophageal strictures.
[2025-08-08] MEDS: fentaNYL CIT INJ 50 mCg/ML AMP 2ML 25 MCG IVP ×4 (16:16→22:40)
--- NOTE | 2025-08-08 17:00 | XR_ITS ---
EXAMINATION: AP chest portable single view TECHNIQUE: AP portable supine chest single view Date and time: 727, 2024, 1716 hours, comparison August 05, 2025 INDICATIONS: Hypoxic respiratory failure post intubation. FINDINGS: Extensive bilateral lung opacity, pneumonia and/or pulmonary edema Endotracheal tube tip 4.2 cm above naomi Mild enlargement cardiac contour Prominent vascular congestion Right internal jugular central line tip SVC IMPRESSION: Extensive bilateral pneumonia Mild to moderate heart failure Endotracheal tube tip 4.2 cm above naomi
[2025-08-08] MEDS: FUROSEMIDE INJ 10 MG/ML 4ML VIAL 40 MG IVP (17:16)
--- NOTE | 2025-08-08 17:57 | PC.RT ---
Pt intubated during PEG procedure and brought to ICU by surgical team, placed on mechanical vent settings by md. Fio2 titrated from 100% to 80% by RT per titration order to maintain sats @ 94%.
--- NOTE | 2025-08-08 19:09 | XR_ITS ---
EXAMINATION: AP chest single view TECHNIQUE: Portable supine AP chest single view Date and time: August 08, 2025, 2010 hours, comparison August 08, 2025 5:16 p.m. INDICATIONS: Difficulty breathing, hypoxic respiratory failure today. FINDINGS: Moderate heart failure Consider superimposed pneumonia bilaterally Moderate to large right pleural effusion Endotracheal tube tip 48 mm above naomi Right internal jugular central line tip right atrium satisfactory position IMPRESSION: Moderate heart failure Consider superimposed pneumonia bilaterally Endotracheal tube tip 4.8 cm above naomi
[2025-08-08] MEDS: DEXMEDETOMIDINE 400 MCG IVPB 400 MCG/100 ML BAG 26.626 MCG IV ×2 (19:16→23:18)
[2025-08-08] MEDS: ATORVASTATIN CALCIUM 10 MG TABLET GT (21:02)
[2025-08-08] MEDS: APIXABAN 2.5 MG TABLET 5 MG GT (21:02)
[2025-08-08 22:27] LABS: Base Excess 14 (-3-3); HCO3 40 mEq/L (20-26); O2 Saturation 99 % (91-98); PCO2 53 mmHg (32.0-48.0); PO2 259 mmHg (83-108); pH, Arterial 7.48 (7.35-7.45)
[2025-08-08 22:28] LABS: Allen Test Performed/OK; Inspired Oxygen, FIO2 80 %; Puncture Site Right Radial
[2025-08-09] VITALS (68 sets, daily range): BP systolic 106–178; BP diastolic 39–81; PULSE 47–115; RESP 1–29; TEMP 35.9–36.8; O2SAT 86–100; BMI 36.5
--- NOTE | 2025-08-09 01:38 | PC.NURSE ---
Notified MD regarding patient's sustained bradycardia (HR 47-52 BPM), patient is currently running diltiazem and a Precedex drip, nurse asked if diltiazem drip could be paused, MD advised nurse to keep diltiazem drip running at current rate until HR drops below 40, care continued.
[2025-08-09 02:05] LABS: Allen Test Performed/OK; Base Excess 15 (-3-3); HCO3 40 mEq/L (20-26); Inspired Oxygen, FIO2 60 %; O2 Saturation 100 % (91-98); PCO2 55 mmHg (32.0-48.0); PO2 189 mmHg (83-108); Puncture Site Right Radial; pH, Arterial 7.47 (7.35-7.45)
[2025-08-09] MEDS: DEXMEDETOMIDINE 400 MCG IVPB 400 MCG/100 ML BAG 21.301 MCG IV (03:40)
[2025-08-09 04:33] LABS: Base Excess 15 (-3-3); HCO3 41 mEq/L (20-26); Inspired Oxygen, FIO2 21 %; PCO2 64 mmHg (32.0-48.0); PO2 97 mmHg (83-108); pH, Arterial 7.42 (7.35-7.45)
[2025-08-09 04:34] LABS: Allen Test Performed/OK; O2 Saturation 100 % (91-98); Puncture Site Right Radial
--- NOTE | 2025-08-09 05:00 | XR_ITS ---
EXAMINATION: AP chest single view TECHNIQUE: AP portable semiupright chest single view Date and time: August 09, 2025, 0536 hours, comparison August 08, 2025 INDICATIONS: Hypoxic respiratory failure post intubation this week, heart failure on earlier imaging FINDINGS: Moderate heart failure Moderate enlargement cardiac contour, prominent vascular congestion with perihilar edema and mild to moderate bilateral pleural effusions Consider superimposed bibasilar pneumonia Right internal jugular central line tip SVC satisfactory position Endotracheal tube tip 4.8 cm above naomi Severe osteopenia IMPRESSION: Moderate heart failure Right internal jugular central line tip satisfactory position Endotracheal tube tip 4.8 cm above naomi
[2025-08-09] MEDS: LEVOTHYROXINE SODIUM 100 MCG TABLET GT (06:13)
[2025-08-09 06:29] LABS: Basophils # (Auto) 0.1 Thou/mm3 (0.0-0.2); Basophils % (Auto) 1 % (0-2.5); Eosinophils # (Auto) 0.1 Thou/mm3 (0.0-0.5); Eosinophils % (Auto) 1 % (0-10); Hematocrit 28.5 % (36.0-46.0); Immature Granulocytes Auto 0.71 Thou/mm3 (0.00-0.00); Lymphocytes # (Auto) 0.6 Thou/mm3 (1.0-4.8); Lymphocytes % (Auto) 6 % (10-50); Mean Corpuscular HGB Conc 30.5 g/dl (31.0-37.0); Mean Corpuscular Hemoglobin 28.9 pg (25.0-35.0); Mean Corpuscular Volume 95 fL (80-100); Monocytes # (Auto) 0.4 Thou/mm3 (0.0-0.8); Monocytes % (Auto) 4 % (0-12); Neutrophils # (Auto) 8.9 Thou/mm3 (1.8-7.7); Neutrophils % (Auto) 83 % (37-80); Nucleated Red Blood Cell # 0.07 Thou/mm3 (0.00-0.00); Nucleated Red Blood Cell % 1 /100 WBC (0); Platelet Count 153 Thou/mm3 (140-440); RDW Standard Deviation 54.7 fL (36.4-46.3); Red Blood Count 3.01 Miln/mm3 (4.00-5.20); White Blood Count 10.8 Thou/mm3 (3.6-11.0)
[2025-08-09 06:35] LABS: INR 1.0 (0.9-1.3); Partial Thromboplastin Time 24.1 Seconds (22.0-36.0); Prothrombin Time 10.8 Seconds (9.0-12.2)
[2025-08-09 06:48] LABS: Alanine Aminotransferase 34 U/L (10-49); Albumin, Serum 3.0 gm/dL (3.4-4.8); Albumin/Globulin Ratio 1.7 (1.2-2.2); Alkaline Phosphatase 48 U/L (46-116); Anion Gap 7 (7-16); Aspartate Amino Transferase 12 U/L (0-34); BUN/Creatinine Ratio 18 Ratio (12-20); Bilirubin,Total 0.4 mg/dL (0.3-1.2); Blood Urea Nitrogen 14 mg/dL (9-23); Calcium 9.1 mg/dL (8.3-10.6); Calcium (Corrected) 9.9 mg/dL (8.5-10.1); Carbon Dioxide 39.8 mMol/L (20.0-31.0); Chloride 97 mMol/L (98-107); Creatinine (Component) 0.8 mg/dL (0.6-1.3); Estimated Creatinine Clearance 58.8 mL/min (>60); Globulin 1.8 gm/dL (2.3-3.5); Glucose 127 mg/dL (74-106); Magnesium 1.6 mg/dL (1.6-2.6); Osmolality,Calculated 289 (275-295); Phosphorous 4.0 mg/dL (2.4-5.1); Potassium 4.1 mMol/L (3.4-5.1); Sodium 144 mMol/L (136-145); Total Protein 4.8 gm/dL (5.7-8.2); eGFR > 60 See Note
--- NOTE | 2025-08-09 07:00 | ESPR_ITS ---
<Statement entered by Liborio Aguila MD - 08/09/25 18:45> I have reviewed the note and agree with the resident's assessment & plan with exceptions as below. I have personally reviewed labs, imaging, home meds/prior records, examined the patient, formulated and discussed management plan with the IM team. Pt examined at bedside today. No overnight events. Patient was put on spontaneous breathing trial after passing spontaneous awakening trial and patient was successfully extubated and put on BiPAP with settings of 15 and 7 respectively with a rate of 20. Patient will continue to be on BiPAP and seen in the ICU at this time for further management of respiratory status. Patient will have formal speech evaluation tomorrow. Will continue with PEG tube feeding at this time. Will give additional diuresis, urine output remains to be good 2.9 L. Pt will need to be optimized for baseline CO2 and HCO3- with biPAP. Continue prednisone taper. Repeat hematology and chemistry in AM. Anticipate downgrade to telemetry tomorrow. #New onset Afib w RVR #Hx of HTN #Acute on chronic hypoxic hypercapnic respiratory failure, likely secondary to #Aspiration pneumonia #Pulmonary arterial hypertension #Interstitial lung disease and pulmonary fibrosis #GERD #Recurrent Esophageal Strictures #s/p Esophageal dilations 08/08 #s/p PEG tube for bed bug exterminator nutrition 08/08 #Insulin Dependent Type 2 DM- well controlled #Hypothyroidism #Chronic bed bound #Friable skin #Depression Liborio Aguila, PGY-2 Internal Medicine Documentation for date of: 08/09/25 Subjective Subjective Interval history: Reason for consult: s/p intubation for egd and peg tube, pending extubation History of present illness: Ms Coffman is a 89-year-old woman with a past medical history of interstitial lung disease, pulmonary fibrosis, chronic CO2 retention on 2 L home oxygen and BiPAP, HFpEF 60-65%, new onset Afib with RVR , bedbound, recurrent UTIs, hypothyroidism, right breast cancer status postlumpectomy, insulin-dependent type 2 diabetes, GERD and recurrent esophageal strictures s/p multiple esophageal dilations, depression, and chronic back pain who presented to the ED in the pathology collector hours of 08/01/2025 with hypoxemia. 08/08/2025: Patient seen and examined at bedside. she was s/p egd with dilation and peg tube placement. she remains intubated and mechanically ventillated. on precedex and fent pushes for sedation. plan to trial spontaneous breathing trial tomorrow. optomize ventilation to get her to baseline co2 retention by monitoring pco2 or end tidal of around 37. goal is not to overventilate. et confirmed above the gt. peg tube feeds initiated at trickle rates per dietitian recfredrick. 08/09/2025: Patient seen and examined at bedside. She was placed on spontaneous breathing trial in the AM and was successfully extubated to Bipap. will give x1 lasix 20 IV dose. Exam Vital Signs Temp Pulse Resp BP Pulse Ox O2 Del Method O2 Flow Rate 97.1 F 50 L 14 139/49 H 100 BiPAP 7 08/09/25 00:00 08/09/25 06:22 08/08/25 18:48 08/09/25 03:30 08/09/25 06:22 08/08/25 12:00 08/06/25 12:00 FiO2 40 08/09/25 06:22 Narrative Exam Physical Exam General: Chronically ill-appearing woman, Bipap in place obese habitus. HEENT: Normocephalic, atraumatic. RIJ central line Heart: Regular rate and rhythm, normal S1 and S2, no murmurs. Lungs: trace crackles bilaterally. Abdomen: Obese, firm, distended,.unable to assess for rebound or tenderness Neurologic: on presedex. somnolent, but arousable to voice, follows commands. Extremities: No edema, clubbing or cyanosis. No joint deformity. Skin: Warm and dry , scatterd bruising of the UE at the hands . : Queen in place, draining yellow urine. Objective Labs 08/13/25 04:30 08/13/25 04:30 Labs: Laboratory Results - last 24 hr 08/08/25 08/09/25 08/09/25 22:13 01:48 04:15 Puncture Site Right Radial Right Radial Right Radial ABG pH 7.48 H 7.47 H 7.42 ABG pCO2 53 H 55 H 64 H ABG pO2 259 H 189 H D 97 D ABG HCO3 40 H 40 H 41 H ABG O2 Saturation 99 H 100 H 100 H ABG Base Excess 14 H 15 H 15 H FiO2 80 60 21 Sodium Potassium Chloride Carbon Dioxide Anion Gap BUN Creatinine Estim Creat Clear Calc eGFR BUN/Creatinine Ratio Glucose Calculated Osmolality Calcium Corrected Calcium Phosphorus Magnesium Total Bilirubin AST ALT Alkaline Phosphatase Total Protein Albumin Globulin Albumin/Globulin Ratio 08/09/25 05:47 Puncture Site ABG pH ABG pCO2 ABG pO2 ABG HCO3 ABG O2 Saturation ABG Base Excess FiO2 Sodium 144 Potassium 4.1 Chloride 97 L Carbon Dioxide 39.8 H Anion Gap 7 BUN 14 Creatinine 0.8 Estim Creat Clear Calc 58.8 L eGFR > 60 BUN/Creatinine Ratio 18 Glucose 127 H Calculated Osmolality 289 Calcium 9.1 Corrected Calcium 9.9 Phosphorus 4.0 Magnesium 1.6 Total Bilirubin 0.4 AST 12 ALT 34 Alkaline Phosphatase 48 Total Protein 4.8 L Albumin 3.0 L Globulin 1.8 L Albumin/Globulin Ratio 1.7 ABG Interpretation ABG results: 08/01/25 08/01/25 08/02/25 02:15 09:05 12:15 ABG pH 7.25 L 7.30 L ABG pCO2 74 H* 66 H ABG pO2 62 L 84 D ABG HCO3 33 H 32 H ABG O2 Saturation 95 95 ABG Base Excess 4 H 4 H VBG pH 7.27 L VBG pCO2 63 H VBG pO2 Not Performed. VBG Base Excess 0 08/03/25 08/04/25 08/08/25 10:44 12:13 22:13 ABG pH 7.33 L 7.33 L 7.48 H ABG pCO2 64 H 69 H 53 H ABG pO2 88 85 259 H ABG HCO3 34 H 36 H 40 H ABG O2 Saturation 95 95 99 H ABG Base Excess 6 H 8 H 14 H VBG pH VBG pCO2 VBG pO2 VBG Base Excess 08/09/25 08/09/25 01:48 04:15 ABG pH 7.47 H 7.42 ABG pCO2 55 H 64 H ABG pO2 189 H D 97 D ABG HCO3 40 H 41 H ABG O2 Saturation 100 H 100 H ABG Base Excess 15 H 15 H VBG pH VBG pCO2 VBG pO2 VBG Base Excess Quality Measures Quality Measures VTE prophylaxis Advance care planning discussed with:: patient Assessment & Plan Assessment Current Active Medications: Generic Name Dose Route Start Last Admin Trade Name Freq PRN Reason Stop Dose Admin Acetaminophen 650 mg 08/01/25 05:05 Acetaminophen 325 Mg Tablet PO 08/31/25 05:04 Q6H PRN Fever >100.4 Apixaban 5 mg 12/22/25 21:00 08/08/25 21:02 Apixaban 2.5 Mg Tablet GT 09/07/25 20:59 5 mg BID LISETTE Administration Aspirin 81 mg 08/09/25 09:00 Aspirin 81 Mg Chew GT 09/08/25 08:59 DAILY LISETTE Atorvastatin Calcium 10 mg 08/08/25 21:00 08/08/25 21:02 Atorvastatin Calcium 10 Mg Tablet GT 09/07/25 20:59 10 mg HS LISETTE Administration Dextrose 25 ml 08/01/25 05:16 08/07/25 08:37 Dextrose 50%-Water Inj 50 Ml Syringe IV 08/31/25 05:15 25 ml Q15MIN PRN Administration BG 50-70 responsive npo pt Dextrose 50 ml 08/01/25 05:16 Dextrose 50%-Water Inj 50 Ml Syringe IV 08/31/25 05:15 Q15MIN PRN BG <50 OR BG <70 & pt unresponsive Digoxin 0.125 mg 08/09/25 09:00 Digoxin 0.125 Mg Tablet GT 09/08/25 08:59 QDAY LISETTE Diltiazem HCl 60 mg 08/09/25 09:00 Diltiazem 30 Mg Tablet GT 09/08/25 08:59 QID LISETTE Fentanyl Citrate 25 mcg 08/08/25 16:15 08/08/25 22:40 Fentanyl Cit Inj 50 Mcg/Ml Amp 2ml IVP 08/13/25 16:14 25 mcg Q15M PRN Administration BREAKTHROUGH PAIN Glucagon 1 mg 08/01/25 05:16 Glucagon Inj 1 Mg Vial IM Q15MIN PRN BG <70, and no IV access Diltiazem/Sodium Chloride 100 mg in 100 mls @ 10 mls/hr 08/04/25 09:33 08/08/25 20:59 Diltiazem In Ns 100 Mg IV 09/03/25 09:32 10 mg/hr .Q10H LISETTE 10 mls/hr 10 MG/HR Administration Dexmedetomidine/Sodium Chloride 400 mcg in 100 mls @ 5.325 mls/hr 08/08/25 15:27 08/09/25 03:40 Precedex Ivpb IV 09/07/25 15:26 0.8 mcg/kg/hr .[id number] PRN 21.301 mls/hr Per PROTOCOL Administration Protocol 0.2 MCG/KG/HR Magnesium Sulfate 4 gm in 50 mls @ 12.5 mls/hr 08/09/25 06:55 Magnesium Sulfate Ivpb IV 08/09/25 10:54 X1 ONE Insulin Degludec 17 unit 08/08/25 21:00 08/08/25 21:21 Insulin Degludec 5 Unit/0.05 Ml (Per 5 Units) SC 09/07/25 20:59 Not Given HS LISETTE Insulin Human Lispro 0 unit 08/08/25 12:00 08/09/25 06:12 Insulin Lispro (Admelog) 1 Unit/0.01 Ml Unit SC 09/07/25 11:59 Not Given Q6HR LISETTE Protocol Ipratropium [place] 0.5 mg 08/02/25 17:04 Ipratropium Rt 0.5 Mg/ 2.5 Ml Nebu INH 09/01/25 17:03 Q6HR PRN SHORTNESS OF BREATH Levalbuterol HCl 0.63 mg 08/02/25 17:04 Levalbuterol Rt 0.63 Mg/3 Ml Nebu INH 09/01/25 17:03 Q6H PRN WHEEZING Levothyroxine Sodium 100 mcg 08/09/25 06:00 08/09/25 06:13 Levothyroxine Sodium 100 Mcg Tablet GT 09/08/25 05:59 100 mcg ACBR LISETTE Administration Methylprednisolone Sodium Succinate 16 mg 08/02/25 09:00 08/08/25 08:40 Methylprednisolone Sod Succ 40 Mg/Ml Vial IVP 08/09/25 08:59 16 mg QDAY LISETTE Administration Pantoprazole Sodium 40 mg 08/08/25 17:15 08/08/25 17:21 Pantoprazole Inj 40 Mg Vial IVP 09/07/25 17:14 40 mg QDAY LISETTE Administration Polyethylene Glycol 17 gm 08/09/25 09:00 Polyethylene Glycol 17 Gm Packet GT 09/08/25 08:59 DAILY LISETTE Pramipexole Dihydrochloride 1 mg 08/09/25 21:00 Pramipexole 0.25 Mg Tablet GT 09/08/25 20:59 HS LISETTE Sennosides 1 tab 08/09/25 09:00 Senna Tablet GT 09/08/25 08:59 QDAY LISETTE Protocol Sodium Chloride 3 ml 08/01/25 02:11 Sodium Chloride Rt Sravani 0.9% 3 Ml Nebu INH 08/31/25 02:10 PRN PRN SOLN Venlafaxine HCl 150 mg 08/01/25 09:00 08/08/25 08:40 Venlafaxine Xr 37.5 Mg Capcr PO 08/31/25 08:59 150 mg DAILY LISETTE Administration Plan Mr. Coffman is an 89 year old woman with a hx of COPD, interstitial lung disease, htn, esophogeal stricture and dilations, with T2DM, who was upgraded to the ICU following an egd with gen anesthesia and delayed extubation to bipap. Neuro Sedated with precedex and fent pushes prn for agitation : will attempt to wean sedation in order to attempt spontaneous breathing trial tomorrow. CV New onset Afib w RVR elequis 5 bid per peg tube 08/09 d/c diltiazem drip , transition to po 60 immediate release qid (if BP permits) will restart digoxin per GT tube 0.125 when pressures able to tolerate , HoTN in setting of presidex and fent given while currently intubated and given lasix this evening. Hx of HTN Pulm Acute on chronic hypoxic hypercapnic respiratory failure, likely secondary to Aspiration pneumonia Pulmonary arterial hypertension Interstitial lung disease and pulmonary fibrosis Ddx delayed extubation in setting of chronic recurrent hypoxic respiratory failure and pulm fibrosis, she has an obese habitus with bmi 36 and large neck girth Dx she is a chronic retainer, with a baseline Co2 of ~50-60 Rx On bipap, On steroid taper for ILD, Completed course of Zosyn (08/01-08/08), extubated in the AM 08/09, gave lasix 20 iv today, (responded well to 40 lasix given yesterday). Rxx ctm for contraction alkalosis in setting of diuresis. GI GERD Recurrent Esophageal Strictures s/p Esophageal dilations 08/08 s/p PEG tube for bed bug exterminator nutrition 08/08 Patient has hx of recurrent strictures and multiple dilations but due to her recurrence and poor po intakes, Dx EGD with stricture, Rx s/p dilation, and peg tube placed for bed bug exterminator nutrition, dietitian consulted (appreciate recs). tube feeds initiated. Renal no active problems, ctm renal function with diuresis ENDO Insulin Dependent Type 2 DM- well controlled Home meds: glargine 35 units qa, lispro 8 units tid, metformin 500 BID Dx A1c 6.6, Rx peg tube feeds have been initiated, Glucerna 1.2 at 20 ml/hr via NG tube by pump. Advance 10 ml every 8 hrs to goal rate of 60 ml/hr x 24 hrs. dietitian consulted for recs, Glargine 17 units hs, q6 hour glucose checks. Hypothyroidism levothyroxine 70 qam MSK chronic bed bound - consider PT eval no active problems Skin Friable skin Ddx age related changes and edema Dx patient was on heparin drip, now on elequis. Rx gental manipulation Psych Depression - resume home psych meds. Dispo:Admitted to ICU s/p egd and peg tube with GA and delayed extubation , s/p extubation 08/09 to bipap Diet: NPO, meds per peg tube, feeds resumed. Lines: PIV, Queen, RIJ triple lumen catheter, VTE ppx: elequis 5 bid GI ppx: d/c protonix, cont famotidine 20 bid Bowel Reg: miralax per gt tube. Code status: DNR Case disclosed with my senior resident Dr. Aguila and my Attending Dr. Meri Reardon MD PGY1 Attending Provider Attestation/Addendum Patient seen and examined with above resident, Graciela Reardon MD. I agree with the findings, assessment, and plan of care as document except for any differences below. Patient postop day 1 after EGD/PEG tube placement. Esophageal strictures treated with dilation by GI. Patient tolerated spontaneous breathing trial with use of Precedex to adequately control for transition to BiPAP directly. Patient weaned off BiPAP after period of monitoring successfully. Will intermittently use as necessary especially overnight and with naps. Will defer to GIs discretion about initiation of use of PEG tube. From a swallowing perspective, patient should be monitored closely until tomorrow at which time swallow evaluation formally should be done before initiation of p.o. intake for patient's comfort and pleasure. Patient remains on appropriate steroid dose and was given stress dose steroids by medicine team prior to operative intervention. Patient otherwise remains hemodynamically stable will be closely monitored in ICU for 24 hours after extubation prior to potential transfer back to telemetry for ongoing monitoring and optimization for discharge. Prior to the extubation, we did attempt to contact the patient's nephew who is surrogate decision maker, additionally her caregiver did call us back and did confirm that the patient should remain okay to intubate should she fail in the next 24 hours after extubation. Will respect her wishes of mechanical ventilation for extended period and this bedbound patient with advanced pulmonary fibrosis secondary to interstitial lung disease would portend a poor prognosis. Atrial fibrillation well-controlled, continue plan of care as directed by cardiology. Total critical care time: Personally spent 45 minutes for review of physiologic parameters, directing plan of care throughout the day, coordination of care with other specialties, and counseling the patient's caregiver at bedside. This is exclusive of time spent teaching and staff performing separate billable procedures. Patient remains at significant risk for further morbidity and mortality warranting close monitoring and care only available in ICU. Critical care services required for acute on chronic hypoxic/hypercapnic respiratory failure, esophageal strictures/dysphagia, new onset atrial fibrillation.
[2025-08-09] MEDS: Magnesium Sulfate 4 GM Ivpb 4 GM/50 ML BAG IV (07:07)
[2025-08-09 07:23] LABS: Hemoglobin 8.7 g/dL (12.0-16.0)
[2025-08-09] MEDS: VENLAFAXINE XR 37.5 MG CAPCR 150 MG PO (09:05)
[2025-08-09] MEDS: APIXABAN 2.5 MG TABLET 5 MG GT ×2 (09:06→21:26)
[2025-08-09] MEDS: ASPIRIN 81 MG CHEW GT (09:07)
[2025-08-09] MEDS: POLYETHYLENE GLYCOL 17 GM PACKET GT (09:11)
--- NOTE | 2025-08-09 10:22 | PC.DIETICIAN ---
Nutrition prescription (updated) Glucerna 1.2 at 20 ml/hr via PEG tube by pump. Advance 10 ml every 8 hrs to goal rate of 65 ml/hr x 22 hrs. If no IV fluids, water flushes of 30 ml/hr x 22 hrs (or per MD). -Hold TF for one hour before and after levothyroxine administration- Provides: 1715 kcal, 86 g prot, 1151 ml free water, 1430 ml total volume.
--- NOTE | 2025-08-09 10:41 | PD.RESEVENT ---
Documentation for date of: 08/09/25 Event Note Event Note: 1040: Attempted to contact Jg, decision maker, however was unable to. Spoke with Lissy, guardian/ticket counter for patient, who states that she would like the patient to reintubated if the patient fails extubation. We discussed risks and benefits with reintubation and Lissy stated that she understands the risks with reintubation and would still like patient to be intubated if patient fails extubation trial. Patient seen and care discussed with my attending physician, Dr. Meri Aguila, PGY-2 This document was transcribed using voice recognition technology. Minor inaccuracies may be present.
--- NOTE | 2025-08-09 11:08 | PD.IMPROG ---
Documentation for date of: 08/09/25 Subjective Subjective Interval history: Patient extubated On BiPAP X-ray looks excellent patient status post endoscopic insertion of gastrostomy tube as well as proximal esophageal dilatation with guidewire 50 mm savory dilators Exam Vital Signs Temp Pulse Resp BP Pulse Ox O2 Del Method O2 Flow Rate 97.1 F 57 L 14 113/56 L 99 BiPAP 7 08/09/25 08:00 08/09/25 09:15 08/08/25 18:48 08/09/25 09:15 08/09/25 09:15 08/08/25 12:00 08/06/25 12:00 FiO2 40 08/09/25 06:22 Objective Labs 08/09/25 05:47 08/09/25 05:47 Labs: Laboratory Results - last 24 hr 08/08/25 08/09/25 08/09/25 22:13 01:48 04:15 WBC RBC Hgb Hct MCV MCH MCHC RDW Std Deviation Plt Count Neut % (Auto) Lymph % (Auto) Saline % (Auto) Eos % (Auto) Baso % (Auto) Neut # (Auto) Lymph # (Auto) Saline # (Auto) Eos # (Auto) Baso # (Auto) Immature Gran # (Auto) Absolute Nucleated RBC Immature Gran % Nucleated RBC % PT INR APTT Puncture Site Right Radial Right Radial Right Radial ABG pH 7.48 H 7.47 H 7.42 ABG pCO2 53 H 55 H 64 H ABG pO2 259 H 189 H D 97 D ABG HCO3 40 H 40 H 41 H ABG O2 Saturation 99 H 100 H 100 H ABG Base Excess 14 H 15 H 15 H FiO2 80 60 21 Sodium Potassium Chloride Carbon Dioxide Anion Gap BUN Creatinine Estim Creat Clear Calc eGFR BUN/Creatinine Ratio Glucose Calculated Osmolality Calcium Corrected Calcium Phosphorus Magnesium Total Bilirubin AST ALT Alkaline Phosphatase Total Protein Albumin Globulin Albumin/Globulin Ratio 08/09/25 05:47 WBC 10.8 RBC 3.01 L Hgb 8.7 L Hct 28.5 L MCV 95 MCH 28.9 MCHC 30.5 L RDW Std Deviation 54.7 H Plt Count 153 D Neut % (Auto) 83 H Lymph % (Auto) 6 L Saline % (Auto) 4 Eos % (Auto) 1 Baso % (Auto) 1 Neut # (Auto) 8.9 H Lymph # (Auto) 0.6 L Saline # (Auto) 0.4 Eos # (Auto) 0.1 Baso # (Auto) 0.1 Immature Gran # (Auto) 0.71 H Absolute Nucleated RBC 0.07 H Immature Gran % 7 H Nucleated RBC % 1 H PT 10.8 INR 1.0 APTT 24.1 D Puncture Site ABG pH ABG pCO2 ABG pO2 ABG HCO3 ABG O2 Saturation ABG Base Excess FiO2 Sodium 144 Potassium 4.1 Chloride 97 L Carbon Dioxide 39.8 H Anion Gap 7 BUN 14 Creatinine 0.8 Estim Creat Clear Calc 58.8 L eGFR > 60 BUN/Creatinine Ratio 18 Glucose 127 H Calculated Osmolality 289 Calcium 9.1 Corrected Calcium 9.9 Phosphorus 4.0 Magnesium 1.6 Total Bilirubin 0.4 AST 12 ALT 34 Alkaline Phosphatase 48 Total Protein 4.8 L Albumin 3.0 L Globulin 1.8 L Albumin/Globulin Ratio 1.7 Impressions Impression: Dysphagia status post endoscopic dilatation with guidewire savory dilator 15 mm Status post PEG tube insertion Enteral feeding started ABG Interpretation ABG results: 08/01/25 08/01/25 08/02/25 02:15 09:05 12:15 ABG pH 7.25 L 7.30 L ABG pCO2 74 H* 66 H ABG pO2 62 L 84 D ABG HCO3 33 H 32 H ABG O2 Saturation 95 95 ABG Base Excess 4 H 4 H VBG pH 7.27 L VBG pCO2 63 H VBG pO2 Not Performed. VBG Base Excess 0 08/03/25 08/04/25 08/08/25 10:44 12:13 22:13 ABG pH 7.33 L 7.33 L 7.48 H ABG pCO2 64 H 69 H 53 H ABG pO2 88 85 259 H ABG HCO3 34 H 36 H 40 H ABG O2 Saturation 95 95 99 H ABG Base Excess 6 H 8 H 14 H VBG pH VBG pCO2 VBG pO2 VBG Base Excess 08/09/25 08/09/25 01:48 04:15 ABG pH 7.47 H 7.42 ABG pCO2 55 H 64 H ABG pO2 189 H D 97 D ABG HCO3 40 H 41 H ABG O2 Saturation 100 H 100 H ABG Base Excess 15 H 15 H VBG pH VBG pCO2 VBG pO2 VBG Base Excess Assessment & Plan A&P Narrative dnr status multiple listed allergies. prior id eval in may noted. abn ua in an 89 y/o lady with pos cx noted. not clear if she followed advice for vaginal estrogen in may. will review Friday again ild hx noted with hypercapnea. confounding things a bit. is in house frequently on zosyn and steroids. at most low grade temps soon after arrival. wbc may be related to steroids but is done popularly on a daily basis. nasal mrsa neg. so mrsa an unlikely player in pneumonia bc with coag neg and repeats appear to be neg for any staph. line placed rt chest approx 08/03 so is fast for yeast. echo neg so stopped vanco and left on micafungin and zosyn and will check in again Friday pm. no obection to restarting micafungin but ok to leave her off as well no cough noted. no notable fever but is on steriods. Time Spent With Patient Time: Total time spent is greater than 50% in coordination of care (as documented) at patient's floor/unit and/or counseling patient:
--- NOTE | 2025-08-09 11:56 | ESPR_ITS ---
Documentation for date of: 08/09/25 Subjective Subjective Interval history: Ms Adelaida Coffman is 89yF with PMH of interstitial lung disease, pulmondary fibrosis, chronic CO2 retention on 2L home oxygen and BiPAP, HFpEF, bedbound, recurrent UTIs, hypothyrodism, right breast cancer status postlumpectomy, insulin-dependent type 2 diabetes, GERD, depression, and chronic back pain, presented to the ED on 08/01/2025 due to hypoxemia. The patient started to cough following lunch the day before admission (07/31) and worsened while eating her dinner on the same day. The caregiver noted the patient was expectorating phlegm without any food particles, and suspected possible aspiration. Per EMS note, patient's oxygen level was in 30s and at 68% on 2L nasal cannula and to mid 80s after albuterol treatment. Patient was admitted for acute on chronic hypoxic hypercapnic respiratory failure and aspiration pneumonia. Cardiology was consulted for management of new onset Afib on EKG. ED course: Vitals: Temp 99.6F, TN: 128, RR:28, BP: 127/74, O2sat:95% On Oxy mask 15L Labs: WBC 23.2, Hgb:11.8, ABG pCO2:74, ABG pH:7.25, Na:148, K:5.2, HCO2: 33.1, Cr:1.2, eGFR:43, Glucose: 241, HbA1c: 6.6, Lactic acid:2.4 (increased to 18.0 in 3hrs), Ca 9.8 (decreased to 6.4 in 3hrs), Troponin:0.051, BNP: 193 CXR (08/01/2025): Extensive bilateral pneumonia, consider associated mild heart failure In ED, Patient received 125 mg IV push methylprednisolone, Zosyn, treatment with albuterol, ipratropium, a dose of vancomycin, 2.5 L of L Medical history: As stated above Surgical history: Right breast lumpectomy, Cholesectomy Allergies: Cefuroxime, Topical zinc, Iodine contrast, Sulfa, Influenza virus, Cefuroxime Medications: Vitamin C 500 mg twice a day, Aspirin 81 mg daily, Calcium vitamin D supplement, Estrogen vaginal cream, Stovall 5-3 25 p.o. 3 times daily as needed for pain, Hydroxyzine 25 mg tablet every 6 hours as needed for anxiety, Levothyroxine 100 mcg daily, Metformin 500 mg daily, 35 insulin degludec every morning, 8 units 3 times daily with meals, plus sliding scale, Methenamine 1 g p.o. twice daily, Metoprolol succinate 25 mg daily, Omeprazole 40 mg daily, Pramipexole 1 mg daily, Prednisone 20 mg daily, taper currently, Rosuvastatin 5 mg nightly, Venlafaxine 150 mg XR daily Family history: Noncontributory Social history: Denies smoking cigarettes, drinking alcohol or using other illicit drugs, Lives at home, 24-hour caregiver support 08/02/2025: Labs reviewed and patient examined at the bedside. Recommend Diltiazem drip 10mg/hr and heparin drip if no contraindication to anticoagulation. Also recommend stopping metoprolol due to history of ILD and to avoid bronchospasm. ECHO is pending. Recommend IV lasix 20mg x1 after examining her kidney function and fluid status tomorrow. Upon examination, patient complains of SOB. but denies palpation, chest pain, nausea or vomiting. 08/03/2025: No Overnight events. Labs reviewed and patient examined at the bedside. This morning, patient was tachycardc (HR 120s) with low BP 109/86. Patient was given IV Digoxin 0.25mg x1 and 0.125mg x1 this morning. Patient was still tachycardic this afternoon, so another IV Digoxin 0.25mg x1 was given. Will assess her BP and HR tomorrow. Recommend increasing Ditiazem drip 10mg/hr to 15mg/hr tomorrow if patient is still tachycardic as long as BP tolerates. Patient's sodium increased from 149 to 152, likely from dehydration. No need for diuresis for now. Recommend putting NG tube and give water flushes for hypernatremia, and change heparin drip to oral eliquis and IV digoxin to PO digoxin. Denies chest pain, palpation, N/V, fevers or chills. 08/04/2025: Labs reviewed and patient examined at the bedside. Morning tele monitoring showed Afib, rate controlled. Patient will continue on Diltiazem drip 10mg/hr and IV digoxin 0.125mg qd. Pt's Na level was 153. Started on D5W 80ml/hr, now downtrending to 151. Denies chest pain, palpation, abdominal pain, N/V, fevers or chills. 08/05/2025: No Overnight events. Labs reviewed and patient examined at the bedside. Continue Diltiazem drip 10mg/hr and IV digoxin 0.125mg qd. Sodium level today was 151. Denies chest pain, palpation, SOB, abdominal pain, N/V, fevers or chills. 08/06/2025: Patient seen and examined at bedside. Currently no complaints, looks euvolemic no indication for diuresis for now. Patient has NG tube intact getting free water flushes, patient has been n.p.o. since last 5 days has not been fed. Recommend following up with dietitian/GI regarding feeding. Otherwise heart rate well-controlled on diltiazem 10 mg/h and digoxin 0.125 mg every day. Patient on heparin drip. Transition to diltiazem 240 mg daily and digoxin 0.125 mg orally when able. Steroids being continued per pulmonology recommendations. 08/07/2025: Patient seen and examined at bedside. Telemetry reviewed. Currently no complaints, looks euvolemic no indication for diuresis for now. Patient has NG tube intact getting free water flushes, patient has been n.p.o. since last 6 days has not been fed. Plan for EGD with PEG tube today for long-term nutritional support under general anesthesia. Otherwise heart rate well-controlled on diltiazem 10 mg/h and digoxin 0.125 mg every day. Patient on heparin drip. Transition to diltiazem 240 mg daily and digoxin 0.125 mg orally when able. 08/08/2025: Patient s/p PEG tube placement due to dysphagia. Procedure needed to be done in ICU as she required intubation. Continue with Diltiazem drip for now. Change to Oral immediate release cardizem 60mg qid, Digoxin 0.125mg po qd, and eliquis 5mg po bid tonight. Discontinue heparin drip. Continue with Aspirin and Atorvastatin. Check for Digoxin level on 08/10. 08/10/2025: This morning, patient's HR was in 50s, so Cardizem and Digoxin was not given. Currently HR is going up. Recommend starting on Cadizem 60mg po qid if HR increases to appropriate level. Continue eliquis, and aspirin. Patient looked slightly fluid overloaded, so was given IV furosemide 20mg x1. Check for Digoxin level on 08/10. Will continue to follow. Exam Vital Signs Temp Pulse Resp BP Pulse Ox O2 Del Method O2 Flow Rate 97.1 F 66 25 H 113/56 L 97 BiPAP 7 08/09/25 08:00 08/09/25 11:09 08/09/25 11:09 08/09/25 09:15 08/09/25 11:09 08/08/25 12:00 08/06/25 12:00 FiO2 40 08/09/25 11:09 Narrative Exam General: Chronically ill-appearing woman, obese habitus, on [facility] ventillator HEENT: Normocephalic, atraumatic. Heart:normal S1 and S2, no murmurs. Regular rate and rhythm. Lungs: Mild wheezing bilateral. Abdomen: Obese, firm, distended, tender. No guarding or rebound tenderness. Neurologic: Alert and oriented x3, no gross neurological deficit, and patient able to move all 4 extremities. Extremities: Trace lower extremity edema, clubbing or cyanosis. No joint deformity. Skin: Warm and dry without rashes. : Queen in place, draining yellow urine. Objective Labs 08/09/25 05:47 08/09/25 05:47 Labs: Laboratory Results - last 24 hr 08/08/25 08/09/25 08/09/25 22:13 01:48 04:15 WBC RBC Hgb Hct MCV MCH MCHC RDW Std Deviation Plt Count Neut % (Auto) Lymph % (Auto) [place] % (Auto) Eos % (Auto) Baso % (Auto) Neut # (Auto) Lymph # (Auto) [place] # (Auto) Eos # (Auto) Baso # (Auto) Immature Gran # (Auto) Absolute Nucleated RBC Immature Gran % Nucleated RBC % PT INR APTT Puncture Site Right Radial Right Radial Right Radial ABG pH 7.48 H 7.47 H 7.42 ABG pCO2 53 H 55 H 64 H ABG pO2 259 H 189 H D 97 D ABG HCO3 40 H 40 H 41 H ABG O2 Saturation 99 H 100 H 100 H ABG Base Excess 14 H 15 H 15 H FiO2 80 60 21 Sodium Potassium Chloride Carbon Dioxide Anion Gap BUN Creatinine Estim Creat Clear Calc eGFR BUN/Creatinine Ratio Glucose Calculated Osmolality Calcium Corrected Calcium Phosphorus Magnesium Total Bilirubin AST ALT Alkaline Phosphatase Total Protein Albumin Globulin Albumin/Globulin Ratio 08/09/25 05:47 WBC 10.8 RBC 3.01 L Hgb 8.7 L Hct 28.5 L MCV 95 MCH 28.9 MCHC 30.5 L RDW Std Deviation 54.7 H Plt Count 153 D Neut % (Auto) 83 H Lymph % (Auto) 6 L [place] % (Auto) 4 Eos % (Auto) 1 Baso % (Auto) 1 Neut # (Auto) 8.9 H Lymph # (Auto) 0.6 L [place] # (Auto) 0.4 Eos # (Auto) 0.1 Baso # (Auto) 0.1 Immature Gran # (Auto) 0.71 H Absolute Nucleated RBC 0.07 H Immature Gran % 7 H Nucleated RBC % 1 H PT 10.8 INR 1.0 APTT 24.1 D Puncture Site ABG pH ABG pCO2 ABG pO2 ABG HCO3 ABG O2 Saturation ABG Base Excess FiO2 Sodium 144 Potassium 4.1 Chloride 97 L Carbon Dioxide 39.8 H Anion Gap 7 BUN 14 Creatinine 0.8 Estim Creat Clear Calc 58.8 L eGFR > 60 BUN/Creatinine Ratio 18 Glucose 127 H Calculated Osmolality 289 Calcium 9.1 Corrected Calcium 9.9 Phosphorus 4.0 Magnesium 1.6 Total Bilirubin 0.4 AST 12 ALT 34 Alkaline Phosphatase 48 Total Protein 4.8 L Albumin 3.0 L Globulin 1.8 L Albumin/Globulin Ratio 1.7 ABG Interpretation ABG results: 08/01/25 08/01/25 08/02/25 02:15 09:05 12:15 ABG pH 7.25 L 7.30 L ABG pCO2 74 H* 66 H ABG pO2 62 L 84 D ABG HCO3 33 H 32 H ABG O2 Saturation 95 95 ABG Base Excess 4 H 4 H VBG pH 7.27 L VBG pCO2 63 H VBG pO2 Not Performed. VBG Base Excess 0 08/03/25 08/04/25 08/08/25 10:44 12:13 22:13 ABG pH 7.33 L 7.33 L 7.48 H ABG pCO2 64 H 69 H 53 H ABG pO2 88 85 259 H ABG HCO3 34 H 36 H 40 H ABG O2 Saturation 95 95 99 H ABG Base Excess 6 H 8 H 14 H VBG pH VBG pCO2 VBG pO2 VBG Base Excess 08/09/25 08/09/25 01:48 04:15 ABG pH 7.47 H 7.42 ABG pCO2 55 H 64 H ABG pO2 189 H D 97 D ABG HCO3 40 H 41 H ABG O2 Saturation 100 H 100 H ABG Base Excess 15 H 15 H VBG pH VBG pCO2 VBG pO2 VBG Base Excess Quality Measures Quality Measures VTE prophylaxis Advance care planning discussed with:: patient and other Assessment & Plan Assessment Current Active Medications: Generic Name Dose Route Start Last Admin Trade Name Freq PRN Reason Stop Dose Admin Acetaminophen 650 mg 08/01/25 05:05 Acetaminophen 325 Mg Tablet PO 08/31/25 05:04 Q6H PRN Fever >100.4 Apixaban 5 mg 08/08/25 21:00 08/09/25 09:06 Apixaban 2.5 Mg Tablet GT 09/07/25 20:59 5 mg BID LISETTE Administration Aspirin 81 mg 08/09/25 09:00 08/09/25 09:07 Aspirin 81 Mg Chew GT 09/08/25 08:59 81 mg DAILY LISETTE Administration Atorvastatin Calcium 10 mg 08/08/25 21:00 08/08/25 21:02 Atorvastatin Calcium 10 Mg Tablet GT 09/07/25 20:59 10 mg HS LISETTE Administration Dextrose 25 ml 08/01/25 05:16 08/07/25 08:37 Dextrose 50%-Water Inj 50 Ml Syringe IV 08/31/25 05:15 25 ml Q15MIN PRN Administration BG 50-70 responsive npo pt Dextrose 50 ml 08/01/25 05:16 Dextrose 50%-Water Inj 50 Ml Syringe IV 08/31/25 05:15 Q15MIN PRN BG <50 OR BG <70 & pt unresponsive Digoxin 0.125 mg 08/09/25 09:15 08/09/25 09:25 Digoxin 0.125 Mg Tablet GT 09/08/25 09:14 Not Given QDAY LISETTE Diltiazem HCl 60 mg 08/09/25 09:00 Diltiazem 30 Mg Tablet GT 09/08/25 08:59 On Hold: 08/09/25 09:00 QID LISETTE Fentanyl Citrate 25 mcg 08/08/25 16:15 08/08/25 22:40 Fentanyl Cit Inj 50 Mcg/Ml Amp 2ml IVP 08/13/25 16:14 25 mcg Q15M PRN Administration BREAKTHROUGH PAIN Glucagon 1 mg 08/01/25 05:16 Glucagon Inj 1 Mg Vial IM Q15MIN PRN BG <70, and no IV access Dexmedetomidine/Sodium Chloride 400 mcg in 100 mls @ 5.325 mls/hr 08/08/25 15:27 08/09/25 08:00 Precedex Ivpb IV 09/07/25 15:26 0 mcg/kg/hr .[id number] PRN 0 mls/hr Per PROTOCOL Titration Protocol 0.2 MCG/KG/HR Insulin Degludec 17 unit 08/08/25 21:00 08/08/25 21:21 Insulin Degludec 5 Unit/0.05 Ml (Per 5 Units) SC 09/07/25 20:59 Not Given HS LISETTE Insulin Human Lispro 0 unit 08/08/25 12:00 08/09/25 06:12 Insulin Lispro (Admelog) 1 Unit/0.01 Ml Unit SC 09/07/25 11:59 Not Given Q6HR LISETTE Protocol Ipratropium [place] 0.5 mg 08/02/25 17:04 Ipratropium Rt 0.5 Mg/ 2.5 Ml Nebu INH 09/01/25 17:03 Q6HR PRN SHORTNESS OF BREATH Levalbuterol HCl 0.63 mg 08/02/25 17:04 Levalbuterol Rt 0.63 Mg/3 Ml Nebu INH 09/01/25 17:03 Q6H PRN WHEEZING Levothyroxine Sodium 100 mcg 08/09/25 06:00 08/09/25 06:13 Levothyroxine Sodium 100 Mcg Tablet GT 09/08/25 05:59 100 mcg ACBR LISETTE Administration Pantoprazole Sodium 40 mg 08/08/25 17:15 08/09/25 09:08 Pantoprazole Inj 40 Mg Vial IVP 09/07/25 17:14 40 mg QDAY LISETTE Administration Polyethylene Glycol 17 gm 08/09/25 09:00 08/09/25 09:11 Polyethylene Glycol 17 Gm Packet GT 09/08/25 08:59 17 gm DAILY LISETTE Administration Pramipexole Dihydrochloride 1 mg 08/09/25 21:00 Pramipexole 0.25 Mg Tablet GT 09/08/25 20:59 HS LISETTE Sennosides 1 tab 08/09/25 09:00 08/09/25 09:11 Senna Tablet GT 09/08/25 08:59 1 tab QDAY LISETTE Administration Protocol Sodium Chloride 3 ml 08/01/25 02:11 Sodium Chloride Rt Sravani 0.9% 3 Ml Nebu INH 08/31/25 02:10 PRN PRN SOLN Venlafaxine HCl 150 mg 08/01/25 09:00 08/09/25 09:05 Venlafaxine Xr 37.5 Mg Capcr PO 08/31/25 08:59 150 mg DAILY LISETTE Administration Plan Ms. Coffman is a 89-year-old female with past medical history of ILD/pulmonary fibrosis/chronic hypersensitivity pneumonitis with chronic respiratory failure on 2 L home oxygen and BiPAP currently on steroid taper, pulmonary arterial hypertension, heart failure with preserved ejection fraction, EF 60-65%, chronically bedbound, recurrent MDR UTIs, hypothyroidism, right breast cancer status postlumpectomy with lymph node dissection, insulin-dependent type 2 diabetes mellitus, GERD, depression, chronic back pain and nephrolithiasis who presented to [facility] emergency department on 08/01/2025 with a chief complaint of hypoxia. Cardiology was consulted for management of new onset Afib on EKG. #New Onset A Fib with RVR -diagnosed July 2025 Patient has SOB. Denies palpation or chest pain. EKG showed irregularly irregular rhythm rate 155 with RBBB. MAT ruled out. No history of atrial fibrillation CHADSVASc score 6 HASBLEED score 3. High Risk of major bleeding Was given diltiazem IV 20 mg x 1 and was started on diltiazem gtt. 5 mg/h which was increased to 10 mg/h as patient continued to remain tachycardic On August 03 patient was noted to be significantly tachycardic with low blood pressure, was given total IV digoxin 0.625 mg loading dose and now on Digoxin 0.125mg po qd - rate controlled now Plan: - Continue digoxin 0.125 mg daily for rate control and Eliquis 5 mg p.o. twice daily for anticoagulation. - Diltiazem drip stopped and recommended to stop oral immediate-release Cardizem 60 mg 4 times daily or Cardizem CD 240 mg once daily as G-tube has been placed but held currently because of the bradycardia. Recommend to start at lower dose 30 mg 4 times daily immediate release diltiazem or 120 mg CD once daily of extended release diltiazem -Discontinue heparin drip once Eliquis started. -Check digoxin level August 10 -Recommend Holter monitor outpatient to assess A fib burden. -Keep potassium greater than 4 and magnesium greater than 2 at all times -Currently held Oral immediate release cardizem 60mg qid, Digoxin 0.125mg po qd due to bradycardia. -Discontinue heparin drip. -Check digoxin level August 10 -Recommend Holter monitor outpatient to assess A fib burden. 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 Pulmonology notes reviewed. Patient steroid taper is being managed by resident clinic outpatient with recommendations from pulmonology remotely. Patient has had multiple admissions for hypercapnia, currently using BiPAP every night with [employer]. Patient does have history of heart failure, HFpEF with a EF 60 to 65%, never seen a diamond die polisher outpatient, patient not on diuretics outpatient per resident clinic note as patient has chronic hypercapnia and diuresis causes contraction alkalosis causing further respiratory decompensation. CXR (08/02/2025): extensive bilateral lung opacity, Mild enlargement cardiac contour with significant vascular congestion on physical exam 1+ edema noted bilateral hips. Patient's underlying respiratory status and lieu of ILD flare/aspiration pneumonia ECHO (08/02/2025) showed: 1. Left ventricle size is normal and systolic function is normal. Estimated ejection fraction is 60-65%. There is indeterminate diastolic function due to afib. There is mild concentric hypertrophy noted. 2. Right ventricle is not well visualized. RV function appears normal. 3. There is mild aortic valve sclerosis with no stenosis. 4. Mild thickening of the mitral valve leaflets. Mild MR, mild MAC. Mild TR. 5. Normal IVC with estimated RA pressure 3 mmHg. 6. Prior study from 12/29/2024. Plan: - Held diuresis initially as the patient was euvolemic and not receiving any kind of nutrition, was given IV furosemide 20mg x1 as she looked slightly fluid overloaded today and recommend to continue as needed IV diuresis and eventually need to be discharged at least on Lasix 20 mg once daily or 40 mg once daily based on renal function -Strict intake and output, daily weight -Fluid restriction 1500ml, cardiac diet -Keep magnesium greater than 2 and potassium greater than 4 at all times -Management of respiratory disease per primary team #?Pulmonary Hypertension, Group III #Hx of Interstitial Lung Disease - Patient has established diagnosis of interstitial lung disease, pulmonary fibrosis secondary to chronic hypersensitivity pneumonitis - Patient had echo in the past with elevated right-sided pressures suggestive of pulmonary hypertension - Chest CT (08/01/2025): Pulmonary artery hypertension, Severe pneumonia and/or edema throughout the lungs - Recommend outpatient workup for pulmonary hypertension Plan: -BiPAP prn -Duoneb prn -Steroid taper per pulmonology # Hypertension In ED, 155/80 blood pressure well-controlled -Start on immediate release cardizem 60mg qid PO #Hypernatremia #Acute on chronic hypoxic hypercapnic respiratory failure, likely secondary to #Aspiration pneumonia #Sepsis #GPC bacteremia #Lactic acidosis #Leukocytosis #UTI #Insulin-dependent type 2 diabetes #Esophageal stenosis s/p dilation #Chronic normocytic anemia #Hyperlipidemia #Hypothyroidism #Chronic constipation #Depression #Parkinson -Management per Primary Hospitalist team Thank you for allowing us to participate in the care of Ms Adelaida Coffman. Cardiology will continue to follow Assessment and plan discussed with my attending physician Dr. Tj Stovall (PGY-1) - Internal medicine resident Attending Provider Attestation/Addendum I have personally seen and examined the patient separately on the above date of service and discussed the plan of care with the resident. I reviewed the resident Dr. Freedom Stovall consultation progress note and agree with the resident findings and plan in the note above and have also edited the documentation to reflect my findings and plan. Steven Spencer M.D. Interventional Cardiology
[2025-08-09] MEDS: FUROSEMIDE INJ 10 MG/ML VIAL 2 ML 20 MG IVP (14:55)
--- NOTE | 2025-08-09 15:15 | PC.SS ---
Rounding Note: Patient has been downgraded from ICU on 08-09-25. Patient extubated today.
[2025-08-09] MEDS: LEVALBUTEROL RT 0.63 MG/3 ML NEBU INH (18:51)
[2025-08-09] MEDS: IPRATROPIUM RT 0.5 MG/ 2.5 ML NEBU INH (18:51)
[2025-08-09] MEDS: ATORVASTATIN CALCIUM 10 MG TABLET GT (21:25)
[2025-08-09] MEDS: PRAMIPEXOLE 0.25 MG TABLET 1 MG GT (21:27)
[2025-08-10] VITALS (36 sets, daily range): BP systolic 130–159; BP diastolic 43–105; PULSE 72–109; RESP 12–36; TEMP 36–36.7; O2SAT 88–99; BMI 34.7
[2025-08-10 05:14] LABS: Inspired Oxygen, FIO2 40 %
[2025-08-10 05:15] LABS: Allen Test Performed/OK; Base Excess 13 (-3-3); HCO3 40 mEq/L (20-26); O2 Saturation 96 % (91-98); PCO2 63 mmHg (32.0-48.0); PO2 64 mmHg (83-108); Puncture Site Right Radial; pH, Arterial 7.41 (7.35-7.45)
[2025-08-10 05:25] LABS: Basophils # (Auto) 0.1 Thou/mm3 (0.0-0.2); Basophils % (Auto) 1 % (0-2.5); Eosinophils # (Auto) 0.1 Thou/mm3 (0.0-0.5); Eosinophils % (Auto) 0 % (0-10); Hematocrit 31.1 % (36.0-46.0); Hemoglobin 9.4 g/dL (12.0-16.0); Immature Granulocytes Auto 0.86 Thou/mm3 (0.00-0.00); Lymphocytes # (Auto) 0.9 Thou/mm3 (1.0-4.8); Lymphocytes % (Auto) 4 % (10-50); Mean Corpuscular HGB Conc 30.2 g/dl (31.0-37.0); Mean Corpuscular Hemoglobin 29.0 pg (25.0-35.0); Mean Corpuscular Volume 96 fL (80-100); Monocytes # (Auto) 0.8 Thou/mm3 (0.0-0.8); Monocytes % (Auto) 4 % (0-12); Neutrophils # (Auto) 18.2 Thou/mm3 (1.8-7.7); Neutrophils % (Auto) 87 % (37-80); Nucleated Red Blood Cell # 0.12 Thou/mm3 (0.00-0.00); Nucleated Red Blood Cell % 1 /100 WBC (0); Platelet Count 194 Thou/mm3 (140-440); RDW Standard Deviation 57.6 fL (36.4-46.3); Red Blood Count 3.24 Miln/mm3 (4.00-5.20); White Blood Count 20.9 Thou/mm3 (3.6-11.0)
[2025-08-10] MEDS: LEVOTHYROXINE SODIUM 100 MCG TABLET GT (05:40)
[2025-08-10 05:48] LABS: INR 1.0 (0.9-1.3); Partial Thromboplastin Time 27.6 Seconds (22.0-36.0); Prothrombin Time 10.7 Seconds (9.0-12.2)
[2025-08-10 06:10] LABS: Alanine Aminotransferase 26 U/L (10-49); Albumin, Serum 3.2 gm/dL (3.4-4.8); Albumin/Globulin Ratio 1.6 (1.2-2.2); Alkaline Phosphatase 56 U/L (46-116); Anion Gap 9 (7-16); Aspartate Amino Transferase 12 U/L (0-34); BUN/Creatinine Ratio 20 Ratio (12-20); Bilirubin,Total 0.4 mg/dL (0.3-1.2); Blood Urea Nitrogen 16 mg/dL (9-23); Calcium 9.3 mg/dL (8.3-10.6); Calcium (Corrected) 9.9 mg/dL (8.5-10.1); Carbon Dioxide 38.0 mMol/L (20.0-31.0); Chloride 93 mMol/L (98-107); Creatinine (Component) 0.8 mg/dL (0.6-1.3); Digoxin 1.2 ng/mL (0.8-2.0); Estimated Creatinine Clearance 58.5 mL/min (>60); Globulin 2.0 gm/dL (2.3-3.5); Glucose 130 mg/dL (74-106); Magnesium 1.9 mg/dL (1.6-2.6); Osmolality,Calculated 282 (275-295); Phosphorous 3.0 mg/dL (2.4-5.1); Potassium 3.5 mMol/L (3.4-5.1); Sodium 140 mMol/L (136-145); Total Protein 5.2 gm/dL (5.7-8.2); eGFR > 60 See Note
[2025-08-10 06:22] LABS: B-Type Natriuretic Peptide 308 pg/mL (0-100)
--- NOTE | 2025-08-10 08:00 | ESPR_ITS ---
Documentation for date of: 08/10/25 Subjective Subjective Interval history: Ms Adelaida Coffman is 89yF with PMH of interstitial lung disease, pulmondary fibrosis, chronic CO2 retention on 2L home oxygen and BiPAP, HFpEF, bedbound, recurrent UTIs, hypothyrodism, right breast cancer status postlumpectomy, insulin-dependent type 2 diabetes, GERD, depression, and chronic back pain, presented to the ED on 08/01/2025 due to hypoxemia. The patient started to cough following lunch the day before admission (07/31) and worsened while eating her dinner on the same day. The caregiver noted the patient was expectorating phlegm without any food particles, and suspected possible aspiration. Per EMS note, patient's oxygen level was in 30s and at 68% on 2L nasal cannula and to mid 80s after albuterol treatment. Patient was admitted for acute on chronic hypoxic hypercapnic respiratory failure and aspiration pneumonia. Cardiology was consulted for management of new onset Afib on EKG. ED course: Vitals: Temp 99.6F, NH: 128, RR:28, BP: 127/74, O2sat:95% On Oxy mask 15L Labs: WBC 23.2, Hgb:11.8, ABG pCO2:74, ABG pH:7.25, Na:148, K:5.2, HCO2: 33.1, Cr:1.2, eGFR:43, Glucose: 241, HbA1c: 6.6, Lactic acid:2.4 (increased to 18.0 in 3hrs), Ca 9.8 (decreased to 6.4 in 3hrs), Troponin:0.051, BNP: 193 CXR (08/01/2025): Extensive bilateral pneumonia, consider associated mild heart failure In ED, Patient received 125 mg IV push methylprednisolone, Zosyn, treatment with albuterol, ipratropium, a dose of vancomycin, 2.5 L of L Medical history: As stated above Surgical history: Right breast lumpectomy, Cholesectomy Allergies: Cefuroxime, Topical zinc, Iodine contrast, Sulfa, Influenza virus, Cefuroxime Medications: Vitamin C 500 mg twice a day, Aspirin 81 mg daily, Calcium vitamin D supplement, Estrogen vaginal cream, [place] 5-3 25 p.o. 3 times daily as needed for pain, Hydroxyzine 25 mg tablet every 6 hours as needed for anxiety, Levothyroxine 100 mcg daily, Metformin 500 mg daily, 35 insulin degludec every morning, 8 units 3 times daily with meals, plus sliding scale, Methenamine 1 g p.o. twice daily, Metoprolol succinate 25 mg daily, Omeprazole 40 mg daily, Pramipexole 1 mg daily, Prednisone 20 mg daily, taper currently, Rosuvastatin 5 mg nightly, Venlafaxine 150 mg XR daily Family history: Noncontributory Social history: Denies smoking cigarettes, drinking alcohol or using other illicit drugs, Lives at home, 24-hour caregiver support 08/02/2025: Labs reviewed and patient examined at the bedside. Recommend Diltiazem drip 10mg/hr and heparin drip if no contraindication to anticoagulation. Also recommend stopping metoprolol due to history of ILD and to avoid bronchospasm. ECHO is pending. Recommend IV lasix 20mg x1 after examining her kidney function and fluid status tomorrow. Upon examination, patient complains of SOB. but denies palpation, chest pain, nausea or vomiting. 08/03/2025: No Overnight events. Labs reviewed and patient examined at the bedside. This morning, patient was tachycardc (HR 120s) with low BP 109/86. Patient was given IV Digoxin 0.25mg x1 and 0.125mg x1 this morning. Patient was still tachycardic this afternoon, so another IV Digoxin 0.25mg x1 was given. Will assess her BP and HR tomorrow. Recommend increasing Ditiazem drip 10mg/hr to 15mg/hr tomorrow if patient is still tachycardic as long as BP tolerates. Patient's sodium increased from 149 to 152, likely from dehydration. No need for diuresis for now. Recommend putting NG tube and give water flushes for hypernatremia, and change heparin drip to oral eliquis and IV digoxin to PO digoxin. Denies chest pain, palpation, N/V, fevers or chills. 08/04/2025: Labs reviewed and patient examined at the bedside. Morning tele monitoring showed Afib, rate controlled. Patient will continue on Diltiazem drip 10mg/hr and IV digoxin 0.125mg qd. Pt's Na level was 153. Started on D5W 80ml/hr, now downtrending to 151. Denies chest pain, palpation, abdominal pain, N/V, fevers or chills. 08/05/2025: No Overnight events. Labs reviewed and patient examined at the bedside. Continue Diltiazem drip 10mg/hr and IV digoxin 0.125mg qd. Sodium level today was 151. Denies chest pain, palpation, SOB, abdominal pain, N/V, fevers or chills. 08/06/2025: Patient seen and examined at bedside. Currently no complaints, looks euvolemic no indication for diuresis for now. Patient has NG tube intact getting free water flushes, patient has been n.p.o. since last 5 days has not been fed. Recommend following up with dietitian/GI regarding feeding. Otherwise heart rate well-controlled on diltiazem 10 mg/h and digoxin 0.125 mg every day. Patient on heparin drip. Transition to diltiazem 240 mg daily and digoxin 0.125 mg orally when able. Steroids being continued per pulmonology recommendations. 08/07/2025: Patient seen and examined at bedside. Telemetry reviewed. Currently no complaints, looks euvolemic no indication for diuresis for now. Patient has NG tube intact getting free water flushes, patient has been n.p.o. since last 6 days has not been fed. Plan for EGD with PEG tube today for fpc nutritional support under general anesthesia. Otherwise heart rate well-controlled on diltiazem 10 mg/h and digoxin 0.125 mg every day. Patient on heparin drip. Transition to diltiazem 240 mg daily and digoxin 0.125 mg orally when able. 08/08/2025: Patient s/p PEG tube placement due to dysphagia. Procedure needed to be done in ICU as she required intubation. Continue with Diltiazem drip for now. Change to Oral immediate release cardizem 60mg qid, Digoxin 0.125mg po qd, and eliquis 5mg po bid tonight. Discontinue heparin drip. Continue with Aspirin and Atorvastatin. Check for Digoxin level on 08/10. 08/09/2025: This morning, patient's HR was in 50s, so Cardizem and Digoxin was not given. Currently HR is going up. Recommend starting on Cadizem 60mg po qid if HR increases to appropriate level. Continue eliquis, and aspirin. Patient looked slightly fluid overloaded, so was given IV furosemide 20mg x1. Check for Digoxin level on 08/10. Will continue to follow. 08/10/2025: Patient's BP 159/87 with HR 101. Currently on Digoxin 0.125mg gt qd. Started on Cardizem 30mg gt qid. Ordered Digoxin level. Will continue eliquis and aspirin. Patient denies any chest pain, palpitation, N/V, headaches. Exam Vital Signs Temp Pulse Resp BP Pulse Ox O2 Del Method O2 Flow Rate 97.8 F 100 44 H 152/66 H 95 Nasal Cannula 2 08/10/25 12:00 08/10/25 12:00 08/10/25 12:08/10/25 12:00 08/10/25 12:08/10/25 12:08/10/25 12:00 FiO2 40 08/10/25 05:46 Narrative Exam General: Chronically ill-appearing woman, obese habitus, [facility] HEENT: Normocephalic, atraumatic. Heart:normal S1 and S2, no murmurs. Regular rate and rhythm. Lungs: Mild wheezing bilateral. Abdomen: Obese, firm, distended, tender. No guarding or rebound tenderness. Neurologic: Alert and oriented x3, no gross neurological deficit, and patient able to move all 4 extremities. Extremities: Trace lower extremity edema, clubbing or cyanosis. No joint deformity. Skin: Warm and dry without rashes. : Queen in place, draining yellow urine. Objective Labs 08/10/25 04:40 08/10/25 04:40 Labs: Laboratory Results - last 24 hr 08/10/25 08/10/25 04:40 05:00 WBC 20.9 H D RBC 3.24 L Hgb 9.4 L Hct 31.1 L MCV 96 MCH 29.0 MCHC 30.2 L RDW Std Deviation 57.6 H Plt Count 194 D Neut % (Auto) 87 H Lymph % (Auto) 4 L [place] % (Auto) 4 Eos % (Auto) 0 Baso % (Auto) 1 Neut # (Auto) 18.2 H Lymph # (Auto) 0.9 L [place] # (Auto) 0.8 Eos # (Auto) 0.1 Baso # (Auto) 0.1 Immature Gran # (Auto) 0.86 H Absolute Nucleated RBC 0.12 H Immature Gran % 4 H Nucleated RBC % 1 H PT 10.7 INR 1.0 APTT 27.6 Puncture Site Right Radial ABG pH 7.41 ABG pCO2 63 H ABG pO2 64 L D ABG HCO3 40 H ABG O2 Saturation 96 ABG Base Excess 13 H FiO2 40 Sodium 140 Potassium 3.5 D Chloride 93 L Carbon Dioxide 38.0 H Anion Gap 9 BUN 16 Creatinine 0.8 Estim Creat Clear Calc 58.5 L eGFR > 60 BUN/Creatinine Ratio 20 Glucose 130 H Calculated Osmolality 282 Calcium 9.3 Corrected Calcium 9.9 Phosphorus 3.0 Magnesium 1.9 Iron 16 L TIBC 228 L Iron Saturation 7 L Unsat Iron Binding 212 L Total Bilirubin 0.4 AST 12 ALT 26 Alkaline Phosphatase 56 B-Natriuretic Peptide 308 H Total Protein 5.2 L Albumin 3.2 L Globulin 2.0 L Albumin/Globulin Ratio 1.6 Digoxin 1.2 ABG Interpretation ABG results: 08/01/25 08/01/25 08/02/25 02:15 09:05 12:15 ABG pH 7.25 L 7.30 L ABG pCO2 74 H* 66 H ABG pO2 62 L 84 D ABG HCO3 33 H 32 H ABG O2 Saturation 95 95 ABG Base Excess 4 H 4 H VBG pH 7.27 L VBG pCO2 63 H VBG pO2 Not Performed. VBG Base Excess 0 08/03/25 08/04/25 08/08/25 10:44 12:13 22:13 ABG pH 7.33 L 7.33 L 7.48 H ABG pCO2 64 H 69 H 53 H ABG pO2 88 85 259 H ABG HCO3 34 H 36 H 40 H ABG O2 Saturation 95 95 99 H ABG Base Excess 6 H 8 H 14 H VBG pH VBG pCO2 VBG pO2 VBG Base Excess 08/09/25 08/09/25 08/10/25 01:48 04:15 05:00 ABG pH 7.47 H 7.42 7.41 ABG pCO2 55 H 64 H 63 H ABG pO2 189 H D 97 D 64 L D ABG HCO3 40 H 41 H 40 H ABG O2 Saturation 100 H 100 H 96 ABG Base Excess 15 H 15 H 13 H VBG pH VBG pCO2 VBG pO2 VBG Base Excess Quality Measures Quality Measures VTE prophylaxis Advance care planning discussed with:: patient and other Assessment & Plan Assessment Current Active Medications: Generic Name Dose Route Start Last Admin Trade Name Freq PRN Reason Stop Dose Admin Acetaminophen 650 mg 08/01/25 05:05 Acetaminophen 325 Mg Tablet PO 08/31/25 05:04 Q6H PRN Fever >100.4 Apixaban 5 mg 08/08/25 21:00 08/10/25 08:59 Apixaban 2.5 Mg Tablet GT 09/07/25 20:59 5 mg BID LISETTE Administration Aspirin 81 mg 08/09/25 09:00 08/10/25 08:59 Aspirin 81 Mg Chew GT 09/08/25 08:59 81 mg DAILY LISETTE Administration Atorvastatin Calcium 10 mg 08/08/25 21:00 08/09/25 21:25 Atorvastatin Calcium 10 Mg Tablet GT 09/07/25 20:59 10 mg HS LISETTE Administration Dextrose 50 ml 08/01/25 05:16 Dextrose 50%-Water Inj 50 Ml Syringe IV 08/31/25 05:15 Q15MIN PRN BG <50 OR BG <70 & pt unresponsive Digoxin 0.125 mg 08/09/25 09:15 08/10/25 09:00 Digoxin 0.125 Mg Tablet GT 09/08/25 09:14 0.125 mg QDAY LISETTE Administration Diltiazem HCl 60 mg 08/09/25 09:00 Diltiazem 30 Mg Tablet GT 09/08/25 08:59 On Hold: 08/09/25 09:00 QID LISETTE Glucagon 1 mg 08/01/25 05:16 Glucagon Inj 1 Mg Vial IM Q15MIN PRN BG <70, and no IV access Dexmedetomidine/Sodium Chloride 400 mcg in 100 mls @ 5.325 mls/hr 08/08/25 15:27 08/09/25 08:00 Precedex Ivpb IV 09/07/25 15:26 0 mcg/kg/hr .[id number] PRN 0 mls/hr Per PROTOCOL Titration Protocol 0.2 MCG/KG/HR Insulin Degludec 15 unit 08/10/25 21:00 Insulin Degludec 5 Unit/0.05 Ml (Per 5 Units) SC 09/09/25 20:59 HS LISETTE Insulin Human Lispro 0 unit 08/08/25 12:00 08/10/25 11:41 Insulin Lispro (Admelog) 1 Unit/0.01 Ml Unit SC 09/07/25 11:59 Not Given Q6HR LISETTE Protocol Ipratropium [place] 0.5 mg 08/02/25 17:04 08/09/25 18:51 Ipratropium Rt 0.5 Mg/ 2.5 Ml Nebu INH 09/01/25 17:03 0.5 mg Q6HR PRN Administration SHORTNESS OF BREATH Levalbuterol HCl 0.63 mg 08/02/25 17:04 08/09/25 18:51 Levalbuterol Rt 0.63 Mg/3 Ml Nebu INH 09/01/25 17:03 0.63 mg Q6H PRN Administration WHEEZING Levothyroxine Sodium 100 mcg 08/09/25 06:00 08/10/25 05:40 Levothyroxine Sodium 100 Mcg Tablet GT 09/08/25 05:59 100 mcg ACBR LISETTE Administration Pantoprazole Sodium 40 mg 08/09/25 18:30 08/10/25 08:58 Pantoprazole Inj 40 Mg Vial IVP 09/08/25 18:29 40 mg QDAY LISETTE Administration Polyethylene Glycol 17 gm 08/09/25 09:00 08/10/25 09:01 Polyethylene Glycol 17 Gm Packet GT 09/08/25 08:59 17 gm DAILY LISETTE Administration Pramipexole Dihydrochloride 1 mg 08/09/25 21:00 08/09/25 21:27 Pramipexole 0.25 Mg Tablet GT 09/08/25 20:59 1 mg HS LISETTE Administration Prednisone 15 mg 08/10/25 10:30 08/10/25 11:39 Prednisone 5 Mg Tablet PO 08/24/25 10:17 15 mg QDAY LISETTE Administration Sennosides 1 tab 08/09/25 09:00 08/10/25 09:01 Senna Tablet GT 09/08/25 08:59 1 tab QDAY LISETTE Administration Protocol Sodium Chloride 3 ml 08/01/25 02:11 Sodium Chloride Rt [place] 0.9% 3 Ml Nebu INH 08/31/25 02:10 PRN PRN SOLN Venlafaxine HCl 150 mg 08/01/25 09:00 08/10/25 08:59 Venlafaxine Xr 37.5 Mg Capcr PO 08/31/25 08:59 150 mg DAILY LISETTE Administration Plan Ms. Coffman is a 89-year-old female with past medical history of ILD/pulmonary fibrosis/chronic hypersensitivity pneumonitis with chronic respiratory failure on 2 L home oxygen and BiPAP currently on steroid taper, pulmonary arterial hypertension, heart failure with preserved ejection fraction, EF 60-65%, chronically bedbound, recurrent MDR UTIs, hypothyroidism, right breast cancer status postlumpectomy with lymph node dissection, insulin-dependent type 2 diabetes mellitus, GERD, depression, chronic back pain and nephrolithiasis who presented to [facility] emergency department on 08/01/2025 with a chief complaint of hypoxia. Cardiology was consulted for management of new onset Afib on EKG. #New Onset A Fib with RVR -diagnosed July 2025 Patient has SOB. Denies palpation or chest pain. EKG showed irregularly irregular rhythm rate 155 with RBBB. MAT ruled out. No history of atrial fibrillation CHADSVASc score 6 HASBLEED score 3. High Risk of major bleeding Was given diltiazem IV 20 mg x 1 and was started on diltiazem gtt. 5 mg/h which was increased to 10 mg/h as patient continued to remain tachycardic On August 03 patient was noted to be significantly tachycardic with low blood pressure, was given total IV digoxin 0.625 mg loading dose and now on Digoxin 0.125mg po qd - rate controlled now Plan: - Continue digoxin 0.125 mg daily for rate control and Eliquis 5 mg p.o. twice daily for anticoagulation. -Started on Cardizem 30mg GT qid. Currently on Digoxin 0.125mg GT qd. - Diltiazem drip stopped and recommended to stop oral immediate-release Cardizem 60 mg 4 times daily or Cardizem CD 240 mg once daily as G-tube has been placed but held currently because of the bradycardia. Recommend to start at lower dose 30 mg 4 times daily immediate release diltiazem or 120 mg CD once daily of extended release diltiazem -Check digoxin level August 11 -Recommend Holter monitor outpatient to assess A fib burden. 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 Pulmonology notes reviewed. Patient steroid taper is being managed by resident clinic outpatient with recommendations from pulmonology remotely. Patient has had multiple admissions for hypercapnia, currently using BiPAP every night with [employer]. Patient does have history of heart failure, HFpEF with a EF 60 to 65%, never seen a insurance examining clerk outpatient, patient not on diuretics outpatient per resident clinic note as patient has chronic hypercapnia and diuresis causes contraction alkalosis causing further respiratory decompensation. CXR (08/02/2025): extensive bilateral lung opacity, Mild enlargement cardiac contour with significant vascular congestion on physical exam 1+ edema noted bilateral hips. Patient's underlying respiratory status and lieu of ILD flare/aspiration pneumonia ECHO (08/02/2025) showed: 1. Left ventricle size is normal and systolic function is normal. Estimated ejection fraction is 60-65%. There is indeterminate diastolic function due to afib. There is mild concentric hypertrophy noted. 2. Right ventricle is not well visualized. RV function appears normal. 3. There is mild aortic valve sclerosis with no stenosis. 4. Mild thickening of the mitral valve leaflets. Mild MR, mild MAC. Mild TR. 5. Normal IVC with estimated RA pressure 3 mmHg. 6. Prior study from 12/29/2024. Plan: - Held diuresis initially as the patient was euvolemic and not receiving any kind of nutrition,Recommend to continue as needed IV diuresis and eventually need to be discharged at least on Lasix 20 mg once daily or 40 mg once daily based on renal function -Strict intake and output, daily weight -Fluid restriction 1500ml, cardiac diet -Keep magnesium greater than 2 and potassium greater than 4 at all times -Management of respiratory disease per primary team #?Pulmonary Hypertension, Group III #Hx of Interstitial Lung Disease - Patient has established diagnosis of interstitial lung disease, pulmonary fibrosis secondary to chronic hypersensitivity pneumonitis - Patient had echo in the past with elevated right-sided pressures suggestive of pulmonary hypertension - Chest CT (08/01/2025): Pulmonary artery hypertension, Severe pneumonia and/or edema throughout the lungs - Recommend outpatient workup for pulmonary hypertension Plan: -BiPAP prn -Duoneb prn -Steroid taper per pulmonology # Hypertension In ED, 155/80 blood pressure well-controlled -Start on immediate release cardizem 60mg qid PO #Hypernatremia #Acute on chronic hypoxic hypercapnic respiratory failure, likely secondary to #Aspiration pneumonia #Sepsis #GPC bacteremia #Lactic acidosis #Leukocytosis #UTI #Insulin-dependent type 2 diabetes #Esophageal stenosis s/p dilation #Chronic normocytic anemia #Hyperlipidemia #Hypothyroidism #Chronic constipation #Depression #Parkinson -Management per Primary Hospitalist team Thank you for allowing us to participate in the care of Ms Adelaida Coffman. Cardiology will continue to follow Assessment and plan discussed with my attending physician Dr. Tj Stovall (PGY-1) - Internal medicine resident Attending Provider Attestation/Addendum I have personally seen and examined the patient separately on the above date of service and discussed the plan of care with the resident. I reviewed the resident Dr. Freedom Stovall consultation progress note and agree with the resident findings and plan in the note above and have also edited the documentation to reflect my findings and plan. Steven Spencer M.D. Interventional Cardiology
[2025-08-10 08:28] LABS: Iron 16 mcg/dL (50-170); Percent Iron Saturation 7 % (20-55); Total Iron Binding Capacity 228 mcg/dL (250-425); Unsaturated Iron Binding 212 (225-295)
[2025-08-10] MEDS: POTASSIUM CHLORIDE 10% 20 MEQ/15 ML UDC 40 MEQ GT (08:58)
[2025-08-10] MEDS: ASPIRIN 81 MG CHEW GT (08:59)
[2025-08-10] MEDS: VENLAFAXINE XR 37.5 MG CAPCR 150 MG PO (08:59)
[2025-08-10] MEDS: APIXABAN 2.5 MG TABLET 5 MG GT ×2 (08:59→20:43)
[2025-08-10] MEDS: DIGOXIN 0.125 MG TABLET GT (09:00)
[2025-08-10] MEDS: POLYETHYLENE GLYCOL 17 GM PACKET GT (09:01)
--- NOTE | 2025-08-10 09:08 | PCS.ST ---
Swallow Evaluation completed. See report for details. Functional evelyne-pharyngeal swallow. No regurgitation after PO trials. Recommend Dyspahgia 2 diet.
--- NOTE | 2025-08-10 09:08 | PC.SS ---
Rounding Note: Patient has been downgraded from ICU. Tube feeds. Patient has a Queen cath and is on .
[2025-08-10] MEDS: POTASSIUM CHLORIDE 10% 20 MEQ/15 ML UDC GT (11:39)
--- NOTE | 2025-08-10 11:46 | PD.RESPRO ---
Documentation for date of: 08/10/25 Exam Vital Signs Temp Pulse Resp BP Pulse Ox O2 Del Method O2 Flow Rate 98.1 F 109 H 26 H 140/54 H 95 BiPAP 4 08/10/25 04:01 08/10/25 09:00 08/10/25 06:00 08/10/25 09:00 08/10/25 06:00 08/09/25 16:01 08/09/25 18:40 FiO2 40 08/10/25 05:46 Objective Labs 08/10/25 04:40 08/10/25 04:40 Labs: Laboratory Results - last 24 hr 08/10/25 08/10/25 04:40 05:00 WBC 20.9 H D RBC 3.24 L Hgb 9.4 L Hct 31.1 L MCV 96 MCH 29.0 MCHC 30.2 L RDW Std Deviation 57.6 H Plt Count 194 D Neut % (Auto) 87 H Lymph % (Auto) 4 L [place] % (Auto) 4 Eos % (Auto) 0 Baso % (Auto) 1 Neut # (Auto) 18.2 H Lymph # (Auto) 0.9 L [place] # (Auto) 0.8 Eos # (Auto) 0.1 Baso # (Auto) 0.1 Immature Gran # (Auto) 0.86 H Absolute Nucleated RBC 0.12 H Immature Gran % 4 H Nucleated RBC % 1 H PT 10.7 INR 1.0 APTT 27.6 Puncture Site Right Radial ABG pH 7.41 ABG pCO2 63 H ABG pO2 64 L D ABG HCO3 40 H ABG O2 Saturation 96 ABG Base Excess 13 H FiO2 40 Sodium 140 Potassium 3.5 D Chloride 93 L Carbon Dioxide 38.0 H Anion Gap 9 BUN 16 Creatinine 0.8 Estim Creat Clear Calc 58.5 L eGFR > 60 BUN/Creatinine Ratio 20 Glucose 130 H Calculated Osmolality 282 Calcium 9.3 Corrected Calcium 9.9 Phosphorus 3.0 Magnesium 1.9 Iron 16 L TIBC 228 L Iron Saturation 7 L Unsat Iron Binding 212 L Total Bilirubin 0.4 AST 12 ALT 26 Alkaline Phosphatase 56 B-Natriuretic Peptide 308 H Total Protein 5.2 L Albumin 3.2 L Globulin 2.0 L Albumin/Globulin Ratio 1.6 Digoxin 1.2 ABG Interpretation ABG results: 08/01/25 08/01/25 08/02/25 02:15 09:05 12:15 ABG pH 7.25 L 7.30 L ABG pCO2 74 H* 66 H ABG pO2 62 L 84 D ABG HCO3 33 H 32 H ABG O2 Saturation 95 95 ABG Base Excess 4 H 4 H VBG pH 7.27 L VBG pCO2 63 H VBG pO2 Not Performed. VBG Base Excess 0 08/03/25 08/04/25 08/08/25 10:44 12:13 22:13 ABG pH 7.33 L 7.33 L 7.48 H ABG pCO2 64 H 69 H 53 H ABG pO2 88 85 259 H ABG HCO3 34 H 36 H 40 H ABG O2 Saturation 95 95 99 H ABG Base Excess 6 H 8 H 14 H VBG pH VBG pCO2 VBG pO2 VBG Base Excess 08/09/25 08/09/25 08/10/25 01:48 04:15 05:00 ABG pH 7.47 H 7.42 7.41 ABG pCO2 55 H 64 H 63 H ABG pO2 189 H D 97 D 64 L D ABG HCO3 40 H 41 H 40 H ABG O2 Saturation 100 H 100 H 96 ABG Base Excess 15 H 15 H 13 H VBG pH VBG pCO2 VBG pO2 VBG Base Excess Quality Measures Quality Measures VTE prophylaxis Assessment & Plan Assessment Current Active Medications: Generic Name Dose Route Start Last Admin Trade Name Freq PRN Reason Stop Dose Admin Acetaminophen 650 mg 08/01/25 05:05 Acetaminophen 325 Mg Tablet PO 08/31/25 05:04 Q6H PRN Fever >100.4 Apixaban 5 mg 08/08/25 21:00 08/10/25 08:59 Apixaban 2.5 Mg Tablet GT 09/07/25 20:59 5 mg BID LISETTE Administration Aspirin 81 mg 08/09/25 09:00 08/10/25 08:59 Aspirin 81 Mg Chew GT 09/08/25 08:59 81 mg DAILY LISETTE Administration Atorvastatin Calcium 10 mg 08/08/25 21:00 08/09/25 21:25 Atorvastatin Calcium 10 Mg Tablet GT 09/07/25 20:59 10 mg HS LISETTE Administration Dextrose 50 ml 08/01/25 05:16 Dextrose 50%-Water Inj 50 Ml Syringe IV 08/31/25 05:15 Q15MIN PRN BG <50 OR BG <70 & pt unresponsive Digoxin 0.125 mg 08/09/25 09:15 08/10/25 09:00 Digoxin 0.125 Mg Tablet GT 09/08/25 09:14 0.125 mg QDAY LISETTE Administration Diltiazem HCl 60 mg 08/09/25 09:00 Diltiazem 30 Mg Tablet GT 09/08/25 08:59 On Hold: 08/09/25 09:00 QID LISETTE Fentanyl Citrate 25 mcg 08/08/25 16:15 08/08/25 22:40 Fentanyl Cit Inj 50 Mcg/Ml Amp 2ml IVP 08/13/25 16:14 25 mcg Q15M PRN Administration BREAKTHROUGH PAIN Glucagon 1 mg 08/01/25 05:16 Glucagon Inj 1 Mg Vial IM Q15MIN PRN BG <70, and no IV access Dexmedetomidine/Sodium Chloride 400 mcg in 100 mls @ 5.325 mls/hr 08/08/25 15:27 08/09/25 08:00 Precedex Ivpb IV 09/07/25 15:26 0 mcg/kg/hr .[id number] PRN 0 mls/hr Per PROTOCOL Titration Protocol 0.2 MCG/KG/HR Insulin Degludec 15 unit 08/10/25 21:00 Insulin Degludec 5 Unit/0.05 Ml (Per 5 Units) [place] 09/09/25 20:59 [facility] Insulin Human Lispro 0 unit 08/08/25 12:00 08/10/25 11:41 Insulin Lispro (Admelog) 1 Unit/0.01 Ml Unit SC 09/07/25 11:59 Not Given Q6HR [facility] Protocol Ipratropium [place] 0.5 mg 08/02/25 17:04 08/09/25 18:51 Ipratropium Rt 0.5 Mg/ 2.5 Ml Nebu INH 09/01/25 17:03 0.5 mg Q6HR PRN Administration SHORTNESS OF BREATH Levalbuterol HCl 0.63 mg 08/02/25 17:04 08/09/25 18:51 Levalbuterol Rt 0.63 Mg/3 Ml Nebu INH 09/01/25 17:03 0.63 mg Q6H PRN Administration WHEEZING Levothyroxine Sodium 100 mcg 08/09/25 06:00 08/10/25 05:40 Levothyroxine Sodium 100 Mcg Tablet GT 09/08/25 05:59 100 mcg ACBR LISETTE Administration Pantoprazole Sodium 40 mg 08/09/25 18:30 08/10/25 08:58 Pantoprazole Inj 40 Mg Vial IVP 09/08/25 18:29 40 mg QDAY LISETTE Administration Polyethylene Glycol 17 gm 08/09/25 09:00 08/10/25 09:01 Polyethylene Glycol 17 Gm Packet GT 09/08/25 08:59 17 gm DAILY LISETTE Administration Pramipexole Dihydrochloride 1 mg 08/09/25 21:00 08/09/25 21:27 Pramipexole 0.25 Mg Tablet GT 09/08/25 20:59 1 mg HS LISETTE Administration Prednisone 15 mg 08/10/25 10:30 08/10/25 11:39 Prednisone 5 Mg Tablet PO 08/24/25 10:17 15 mg QDAY LISETTE Administration Sennosides 1 tab 08/09/25 09:00 08/10/25 09:01 Senna Tablet GT 09/08/25 08:59 1 tab QDAY LISETTE Administration Protocol Sodium Chloride 3 ml 08/01/25 02:11 Sodium Chloride Rt Sravani 0.9% 3 Ml Nebu INH 08/31/25 02:10 PRN PRN SOLN Venlafaxine HCl 150 mg 08/01/25 09:00 08/10/25 08:59 Venlafaxine Xr 37.5 Mg Capcr PO 08/31/25 08:59 150 mg DAILY LISETTE Administration
--- NOTE | 2025-08-10 12:20 | ESPR_ITS ---
<Statement entered by Liborio Aguila MD - 08/10/25 17:20> I have reviewed the note and agree with the resident's assessment & plan with exceptions as below. I have personally reviewed labs, imaging, home meds/prior records, examined the patient, formulated and discussed management plan with the IM team. Pt examined at bedside today. No acute overnight events. No overnight events on telemetry. Pt seen by speech eval, and recommend mechanical dysphagia 2 diet. Digoxin level wnl, will continue with Digoxin and Cardizem. A/C with Eliquis. UOP 1.4 L. Labs reviewed, repleted potassium and magnesium IV. Decreased steroid taper to 15 mg of prednisone for two weeks and to be tapered after. Pt will be downgraded to hospitalist team. #New onset Afib w RVR #Hx of HTN #Acute on chronic hypoxic hypercapnic respiratory failure, likely secondary to #Aspiration pneumonia #Pulmonary arterial hypertension #Interstitial lung disease and pulmonary fibrosis #GERD #Recurrent Esophageal Strictures #s/p Esophageal dilations 08/08 #s/p PEG tube for senior living nutrition 08/08 #Insulin Dependent Type 2 DM- well controlled #Hypothyroidism #Chronic bed bound #Friable skin #Depression Liborio Aguila, PGY-2 Internal Medicine Documentation for date of: 08/10/25 Subjective Subjective Interval history: Reason for consult: s/p intubation for egd and peg tube, pending extubation History of present illness: Ms Coffman is a 89-year-old woman with a past medical history of interstitial lung disease, pulmonary fibrosis, chronic CO2 retention on 2 L home oxygen and BiPAP, 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 08/08/2025: Patient seen and examined at bedside. she was s/p egd with dilation and peg tube placement. she remains intubated and mechanically ventillated. on precedex and fent pushes for sedation. plan to trial spontaneous breathing trial tomorrow. optomize ventilation to get her to baseline co2 retention by monitoring pco2 or end tidal of around 37. goal is not to overventilate. et confirmed above the gt. peg tube feeds initiated at trickle rates per dietitian recs. 08/09/2025: Patient seen and examined at bedside. She was placed on spontaneous breathing trial in the AM and was successfully extubated to Bipap. will give x1 lasix 20 IV dose. 08/10/2025: Patient seen and examined at bedside. A and O x3, she passed swallow eval with speech therapist, was downgraded from ICU. No acute events overnight. tolerating peg tube feeds. Exam Vital Signs Temp Pulse Resp BP Pulse Ox O2 Del Method O2 Flow Rate 98.1 F 109 H 26 H 140/54 H 95 BiPAP 4 08/10/25 04:01 08/10/25 09:00 08/10/25 06:00 08/10/25 09:00 08/10/25 06:00 08/09/25 16:01 08/09/25 18:40 FiO2 40 08/10/25 05:46 Narrative Exam Physical Exam General: Chronically ill-appearing woman, HEENT: Normocephalic, atraumatic. RIJ central line Heart: Regular rate and rhythm, normal S1 and S2, no murmurs. Lungs: trace crackles bilaterally. Abdomen: Obese, firm, distended,.unable to assess for rebound or tenderness Neurologic: alert and awake, oriented Extremities: No edema, clubbing or cyanosis. No joint deformity. Skin: Warm and dry , scatterd bruising of the UE at the hands . : Queen in place, draining yellow urine. Objective Labs 08/13/25 04:30 08/13/25 04:30 Labs: Laboratory Results - last 24 hr 08/10/25 08/10/25 04:40 05:00 WBC 20.9 H D RBC 3.24 L Hgb 9.4 L Hct 31.1 L MCV 96 MCH 29.0 MCHC 30.2 L RDW Std Deviation 57.6 H Plt Count 194 D Neut % (Auto) 87 H Lymph % (Auto) 4 L [place] % (Auto) 4 Eos % (Auto) 0 Baso % (Auto) 1 Neut # (Auto) 18.2 H Lymph # (Auto) 0.9 L [place] # (Auto) 0.8 Eos # (Auto) 0.1 Baso # (Auto) 0.1 Immature Gran # (Auto) 0.86 H Absolute Nucleated RBC 0.12 H Immature Gran % 4 H Nucleated RBC % 1 H PT 10.7 INR 1.0 APTT 27.6 Puncture Site Right Radial ABG pH 7.41 ABG pCO2 63 H ABG pO2 64 L D ABG HCO3 40 H ABG O2 Saturation 96 ABG Base Excess 13 H FiO2 40 Sodium 140 Potassium 3.5 D Chloride 93 L Carbon Dioxide 38.0 H Anion Gap 9 BUN 16 Creatinine 0.8 Estim Creat Clear Calc 58.5 L eGFR > 60 BUN/Creatinine Ratio 20 Glucose 130 H Calculated Osmolality 282 Calcium 9.3 Corrected Calcium 9.9 Phosphorus 3.0 Magnesium 1.9 Iron 16 L TIBC 228 L Iron Saturation 7 L Unsat Iron Binding 212 L Total Bilirubin 0.4 AST 12 ALT 26 Alkaline Phosphatase 56 B-Natriuretic Peptide 308 H Total Protein 5.2 L Albumin 3.2 L Globulin 2.0 L Albumin/Globulin Ratio 1.6 Digoxin 1.2 ABG Interpretation ABG results: 08/01/25 08/01/25 08/02/25 02:15 09:05 12:15 ABG pH 7.25 L 7.30 L ABG pCO2 74 H* 66 H ABG pO2 62 L 84 D ABG HCO3 33 H 32 H ABG O2 Saturation 95 95 ABG Base Excess 4 H 4 H VBG pH 7.27 L VBG pCO2 63 H VBG pO2 Not Performed. VBG Base Excess 0 08/03/25 08/04/25 08/08/25 10:44 12:13 22:13 ABG pH 7.33 L 7.33 L 7.48 H ABG pCO2 64 H 69 H 53 H ABG pO2 88 85 259 H ABG HCO3 34 H 36 H 40 H ABG O2 Saturation 95 95 99 H ABG Base Excess 6 H 8 H 14 H VBG pH VBG pCO2 VBG pO2 VBG Base Excess 08/09/25 08/09/25 08/10/25 01:48 04:15 05:00 ABG pH 7.47 H 7.42 7.41 ABG pCO2 55 H 64 H 63 H ABG pO2 189 H D 97 D 64 L D ABG HCO3 40 H 41 H 40 H ABG O2 Saturation 100 H 100 H 96 ABG Base Excess 15 H 15 H 13 H VBG pH VBG pCO2 VBG pO2 VBG Base Excess Quality Measures Quality Measures VTE prophylaxis Advance care planning discussed with:: patient Assessment & Plan Assessment Current Active Medications: Generic Name Dose Route Start Last Admin Trade Name Freq PRN Reason Stop Dose Admin Acetaminophen 650 mg 08/01/25 05:05 Acetaminophen 325 Mg Tablet PO 08/31/25 05:04 Q6H PRN Fever >100.4 Apixaban 5 mg 08/08/25 21:00 08/10/25 08:59 Apixaban 2.5 Mg Tablet GT 09/07/25 20:59 5 mg BID LISETTE Administration Aspirin 81 mg 08/09/25 09:00 08/10/25 08:59 Aspirin 81 Mg Chew GT 09/08/25 08:59 81 mg DAILY LISETTE Administration Atorvastatin Calcium 10 mg 08/08/25 21:00 08/09/25 21:25 Atorvastatin Calcium 10 Mg Tablet GT 09/07/25 20:59 10 mg HS LISETTE Administration Dextrose 50 ml 08/01/25 05:16 Dextrose 50%-Water Inj 50 Ml Syringe IV 08/31/25 05:15 Q15MIN PRN BG <50 OR BG <70 & pt unresponsive Digoxin 0.125 mg 08/09/25 09:15 08/10/25 09:00 Digoxin 0.125 Mg Tablet GT 09/08/25 09:14 0.125 mg QDAY LISETTE Administration Diltiazem HCl 60 mg 08/09/25 09:00 Diltiazem 30 Mg Tablet GT 09/08/25 08:59 On Hold: 08/09/25 09:00 QID LISETTE Glucagon 1 mg 08/01/25 05:16 Glucagon Inj 1 Mg Vial IM Q15MIN PRN BG <70, and no IV access Dexmedetomidine/Sodium Chloride 400 mcg in 100 mls @ 5.325 mls/hr 08/08/25 15:27 08/09/25 08:00 Precedex Ivpb IV 09/07/25 15:26 0 mcg/kg/hr .[id number] PRN 0 mls/hr Per PROTOCOL Titration Protocol 0.2 MCG/KG/HR Insulin Degludec 15 unit 08/10/25 21:00 Insulin Degludec 5 Unit/0.05 Ml (Per 5 Units) SC 09/09/25 20:59 HS LISETTE Insulin Human Lispro 0 unit 08/08/25 12:00 08/10/25 11:41 Insulin Lispro (Admelog) 1 Unit/0.01 Ml Unit SC 09/07/25 11:59 Not Given Q6HR LISETTE Protocol Ipratropium [place] 0.5 mg 08/02/25 17:04 08/09/25 18:51 Ipratropium Rt 0.5 Mg/ 2.5 Ml Nebu INH 09/01/25 17:03 0.5 mg Q6HR PRN Administration SHORTNESS OF BREATH Levalbuterol HCl 0.63 mg 08/02/25 17:04 08/09/25 18:51 Levalbuterol Rt 0.63 Mg/3 Ml Nebu INH 09/01/25 17:03 0.63 mg Q6H PRN Administration WHEEZING Levothyroxine Sodium 100 mcg 08/09/25 06:00 08/10/25 05:40 Levothyroxine Sodium 100 Mcg Tablet GT 09/08/25 05:59 100 mcg ACBR LISETTE Administration Pantoprazole Sodium 40 mg 08/09/25 18:30 08/10/25 08:58 Pantoprazole Inj 40 Mg Vial IVP 09/08/25 18:29 40 mg QDAY LISETTE Administration Polyethylene Glycol 17 gm 08/09/25 09:00 08/10/25 09:01 Polyethylene Glycol 17 Gm Packet GT 09/08/25 08:59 17 gm DAILY LISETTE Administration Pramipexole Dihydrochloride 1 mg 08/09/25 21:00 08/09/25 21:27 Pramipexole 0.25 Mg Tablet GT 09/08/25 20:59 1 mg HS LISETTE Administration Prednisone 15 mg 08/10/25 10:30 08/10/25 11:39 Prednisone 5 Mg Tablet PO 08/24/25 10:17 15 mg QDAY LISETTE Administration Sennosides 1 tab 08/09/25 09:00 08/10/25 09:01 Senna Tablet GT 09/08/25 08:59 1 tab QDAY LISETTE Administration Protocol Sodium Chloride 3 ml 08/01/25 02:11 Sodium Chloride Rt Sravani 0.9% 3 Ml Nebu INH 08/31/25 02:10 PRN PRN SOLN Venlafaxine HCl 150 mg 08/01/25 09:00 08/10/25 08:59 Venlafaxine Xr 37.5 Mg Capcr PO 08/31/25 08:59 150 mg DAILY LISETTE Administration Plan Mr. Coffman is an 89 year old woman with a hx of COPD, interstitial lung disease, htn, esophogeal stricture and dilations, with T2DM, who was upgraded to the ICU following an egd with gen anesthesia and delayed extubation to bipap. Neuro no active problems CV New onset Afib w RVR elequis 5 bid per peg tube 08/09 d/c diltiazem drip , transition to po 60 immediate release qid (if BP permits) will restart digoxin per GT tube 0.125 when pressures able to tolerate , Hx of HTN Pulm Acute on chronic hypoxic hypercapnic respiratory failure, likely secondary to Aspiration pneumonia Pulmonary arterial hypertension Interstitial lung disease and pulmonary fibrosis Ddx delayed extubation in setting of chronic recurrent hypoxic respiratory failure and pulm fibrosis, she has an obese habitus with bmi 36 and large neck girth Dx she is a chronic retainer, with a baseline Co2 of ~50-60 Rx steroid taper for ILD, Completed course of Zosyn (08/01-08/08), extubated in the AM 08/09, Prednisone 15 qd po for 2 weeks (08/10- ) GI GERD Recurrent Esophageal Strictures s/p Esophageal dilations 08/08 s/p PEG tube for buttermaker helper nutrition 08/08 Patient has hx of recurrent strictures and multiple dilations but due to her recurrence and poor po intakes, Dx EGD with stricture, s/p speech evaluation Rx s/p dilation, and peg tube placed for buttermaker helper nutrition, dietitian consulted (appreciate recs). tube feeds initiated. and recreational feeds intitiated, Renal no active problems, ctm renal function ENDO Insulin Dependent Type 2 DM- well controlled Home meds: glargine 35 units qa, lispro 8 units tid, metformin 500 BID Dx A1c 6.6, Rx peg tube feeds have been initiated, Glucerna 1.2 at 20 ml/hr via NG tube by pump. Advance 10 ml every 8 hrs to goal rate of 60 ml/hr x 24 hrs. dietitian consulted for recs, Glargine 17 units hs, q6 hour glucose checks. Hypothyroidism levothyroxine 70 qam MSK chronic bed bound - consider PT eval no active problems Skin Friable skin Ddx age related changes and edema Dx patient was on heparin drip, now on elequis. Rx gentle manipulation Psych Depression - resume home psych meds. Dispo:Admitted to ICU s/p egd and peg tube with GA and delayed extubation , s/p extubation 08/09 to bipap, satting well on NC, downgraded from the icu 08/10. Diet: dysphagia 2 recreational feeds, meds per peg tube, feeds resumed. Lines: PIV, Queen, RIJ triple lumen catheter, VTE ppx: elequis 5 bid GI ppx: d/c protonix, cont famotidine 20 bid Bowel Reg: miralax per gt tube. Code status: DNR Case disclosed with my senior resident Dr. Aguila and my Attending Dr. Meri Reardon MD PGY1 Attending Provider Attestation/Addendum Patient seen and examined with above resident, Graciela Reardon MD. I agree with the findings, assessment, and plan of care as document except for any differences below. Patient doing well 20 hours post extubation and after transition to BiPAP. She has been successfully weaned off of BiPAP during the day I will continue to use intermittently with naps and overnight. Patient can be further titrated down on prednisone to 15 mg which could be slowly tapered as outpatient in the future. No evidence of ongoing infection. Tube feeds can be initiated at discretion of GI. Evaluation for swallow can be done for the patient's comfort and enjoyment though not for nutrition. Her atrial fibrillation with RVR has been adequately controlled likely reflecting improvement in her underlying pulmonary facet pathology. Patient remains chronically bedbound but has very good supportive care with multiple caregivers at home. At this point patient can be downgraded back to telemetry for ongoing monitoring and optimization prior to discharge. Will remove prophylaxis if no longer required. Patient and her caregiver updated plan of care at bedside. I remain available from pulmonary perspective should any questions arise. Total critical care time: I personally spent 40 minutes for review of physiologic parameters, directing plan of care throughout the day, coordination of care with other subspecialist, and counseling patient and her caregiver at bedside. This is exclusive of time spent teaching on staff or performing separate billable procedures. Patient remains at significant risk for further morbidity and mortality warranting close monitoring and care when available in the ICU. Patient required critical care services for acute on chronic hypoxic/hypercapnic respiratory failure, dysphagia secondary to esophageal strictures, and new onset atrial fibrillation with RVR.
--- NOTE | 2025-08-10 13:21 | ESPR_ITS ---
Subjective Subjective Interval history: move to icu noted. abx finished. observing. Exam Vital Signs Temp Pulse Resp BP Pulse Ox O2 Del Method O2 Flow Rate 97.8 F 100 44 H 152/66 H 95 Nasal Cannula 2 08/10/25 12:00 08/10/25 12:00 08/10/25 12:00 08/10/25 12:00 08/10/25 12:00 08/10/25 12:00 08/10/25 12:00 FiO2 40 08/10/25 05:46 Narrative Exam stable exam. on O2 by nc. rt sc line noted. abd benign. no rash noted. ext ok. Objective - Internal Medicine Labs 08/10/25 04:40 08/10/25 04:40 Labs: Laboratory Results - last 24 hr 08/10/25 08/10/25 04:40 05:00 WBC 20.9 H D RBC 3.24 L Hgb 9.4 L Hct 31.1 L MCV 96 MCH 29.0 MCHC 30.2 L RDW Std Deviation 57.6 H Plt Count 194 D Neut % (Auto) 87 H Lymph % (Auto) 4 L [place] % (Auto) 4 Eos % (Auto) 0 Baso % (Auto) 1 Neut # (Auto) 18.2 H Lymph # (Auto) 0.9 L [place] # (Auto) 0.8 Eos # (Auto) 0.1 Baso # (Auto) 0.1 Immature Gran # (Auto) 0.86 H Absolute Nucleated RBC 0.12 H Immature Gran % 4 H Nucleated RBC % 1 H PT 10.7 INR 1.0 APTT 27.6 Puncture Site Right Radial ABG pH 7.41 ABG pCO2 63 H ABG pO2 64 L D ABG HCO3 40 H ABG O2 Saturation 96 ABG Base Excess 13 H FiO2 40 Sodium 140 Potassium 3.5 D Chloride 93 L Carbon Dioxide 38.0 H Anion Gap 9 BUN 16 Creatinine 0.8 Estim Creat Clear Calc 58.5 L eGFR > 60 BUN/Creatinine Ratio 20 Glucose 130 H Calculated Osmolality 282 Calcium 9.3 Corrected Calcium 9.9 Phosphorus 3.0 Magnesium 1.9 Iron 16 L TIBC 228 L Iron Saturation 7 L Unsat Iron Binding 212 L Total Bilirubin 0.4 AST 12 ALT 26 Alkaline Phosphatase 56 B-Natriuretic Peptide 308 H Total Protein 5.2 L Albumin 3.2 L Globulin 2.0 L Albumin/Globulin Ratio 1.6 Digoxin 1.2 ABG Interpretation ABG results: 08/01/25 08/01/25 08/02/25 02:15 09:05 12:15 ABG pH 7.25 L 7.30 L ABG pCO2 74 H* 66 H ABG pO2 62 L 84 D ABG HCO3 33 H 32 H ABG O2 Saturation 95 95 ABG Base Excess 4 H 4 H VBG pH 7.27 L VBG pCO2 63 H VBG pO2 Not Performed. VBG Base Excess 0 08/03/25 08/04/25 08/08/25 10:44 12:13 22:13 ABG pH 7.33 L 7.33 L 7.48 H ABG pCO2 64 H 69 H 53 H ABG pO2 88 85 259 H ABG HCO3 34 H 36 H 40 H ABG O2 Saturation 95 95 99 H ABG Base Excess 6 H 8 H 14 H VBG pH VBG pCO2 VBG pO2 VBG Base Excess 08/09/25 08/09/25 08/10/25 01:48 04:15 05:00 ABG pH 7.47 H 7.42 7.41 ABG pCO2 55 H 64 H 63 H ABG pO2 189 H D 97 D 64 L D ABG HCO3 40 H 41 H 40 H ABG O2 Saturation 100 H 100 H 96 ABG Base Excess 15 H 15 H 13 H VBG pH VBG pCO2 VBG pO2 VBG Base Excess Assessment & Plan A&P Narrative dnr status seems to be at baseline wbc may be steroid related multiple listed allergies. prior id eval in may noted. abn ua in an 89 y/o lady with pos cx noted. not clear if she followed advice for vaginal estrogen in may. will review Friday again ild hx noted with hypercapnea. confounding things a bit. is in house frequently on steroids. at most low grade temps soon after arrival. wbc may be related to steroids but is done popularly on a daily basis. nasal mrsa neg. so mrsa an unlikely player in pneumonia bc with coag neg and repeats appear to be neg for any staph. line placed rt chest approx 08/03 so is fast for yeast. echo neg so stopped vanco and left on micafungin and zosyn and will check in again Friday pm. no objection to restarting micafungin but ok to leave her off as well no cough noted. no notable fever but is on steriods. best fever reducers on the planet but have other se's Time Spent With Patient Time: Total time spent is greater than 50% in coordination of care (as documented) at patient's floor/unit and/or counseling patient:
--- NOTE | 2025-08-10 16:17 | ESPR_ITS ---
<Statement entered by John Paul Warren MD - 08/15/25 07:59> I reviewed above note and agree with findings and plans. I have also personally examined the patient with medicine team and went over assessment and plan with medical team including compliance intern and resident physician. <Statement entered by Jeffry Eller MD - 08/10/25 18:20> In summary: This 89-year-old female with a complex medical history including chronic IDL, pulmonary fibrosis with chronic CO2 retention on BiPAP, and IDDM, who was admitted for acute on chronic hypoxic hypercapnic respiratory failure triggered by aspiration pneumonia. Her hospital course was further complicated by sepsis (due to a Pseudomonas UTI and GPC bacteremia) and new-onset atrial fibrillation with RVR, which required management with diltiazem and digoxin. A primary emergency vehicle driver of her respiratory instability is severe dysphagia secondary to esophageal stenosis. Due to her inability to tolerate oral intake and the high risk of recurrent aspiration, she underwent an EGD with esophageal dilation and PEG tube placement on August 08. Although the procedure required general anesthesia and carried a significant risk of prolonged mechanical ventilation, she was successfully extubated and transitioned to a nasal cannula by August 10. Current management focuses on stabilizing her respiratory and nutritional status. She is now receiving tube feeds at a goal of 65 ml/hr and is being treated with a steroid taper for her ILD and Zosyn for her infections. Her cardiac status is being managed with Eliquis and diltiazem for Afib, while her free water flushes have been adjusted to address hypernatremia. Given her limited respiratory reserve and dependence on BiPAP, she remains at high risk for future decompensation. I?ve reviewed the note and agree with this assessment and plan, with the exceptions outlined above. I personally went over the labs, imaging, home medications, and prior records, and examined the patient. The case was also reviewed with the attending physician. Please note: this document was transcribed using voice recognition technology; minor inaccuracies may be present. Jeffry Eller DO PGY II Documentation for date of: 08/10/25 Subjective Subjective Interval history: 89-year-old female past medical history of interstitial lung disease, pulmonary fibrosis, chronic CO2 retention on 2 L home oxygen and BiPAP, HFpEF, bedbound, recurrent UTIs, hypothyroidism, right breast cancer status postlumpectomy, insulin-dependent type 2 diabetes, GERD, depression, and chronic back pain who presented to the ED in the burner operator hours of 08/01/2025 with hypoxemia. Patient was on BiPAP and most history was gathered from the caregiver. Per the caregiver, patient ate lunch the day before and began to have coughing episodes. These episodes were intensified after the patient ate half of her dinner, at which time the caregiver took away the patient's food. Caregiver mentioned that the patient was coughing up phlegm with no food particles, and was concerned for aspiration and therefore called EMS. When the ambulance arrived it was reported that the patient was saturating in the high 30s. Per EMS the patient was saturating at 68% on 2 L nasal cannula and went up to the mid 80s after 2 albuterol treatments and route. Patient was admitted for acute on chronic hypoxic hypercapnic respiratory failure secondary to interstitial lung disease and possible aspiration pneumonia as well as UTI. 08/01/25: Patient was evaluated this morning with radio frequency technician present at the bedside. Patient is currently on BIPAP with a flow rate of 40, saturating at 93%. The patient is alert and oriented to person, place, and year, and reports no complaints at this time. Per radio frequency technician, patient has had several hospitalizations due to similar symptoms of shortness of breath and asymptomatic recurrent UTIs. Blood culture came back positive for gram positive cocci resembling staph in one of the bottles - started Vancomycin. 08/02/25: No acute events overnight. The patient was evaluated at the bedside this morning and was on BIPAP at 40%. Blood cultures from both bottles returned positive for gram-positive cocci, and vancomycin was initiated. An echocardiogram has been ordered and pending. Patient did not pass swallow screen yesterday. Speech therapy assessed the patient this morning and noted audible air after every swallow, followed by regurgitation that persisted for 15 minutes. The patient required oral suction with strong coughing. Desaturation occurred, dropping to 85%, accompanied by an elevated heart rate. As a result, the patient was placed NPO, and respiratory therapy was called for deep suctioning and to place the patient on high-flow oxygen. An ABG, CXR, and EKG were ordered. The CXR revealed significant bilateral pneumonia with an ARDS pattern, while the EKG showed atrial fibrillation with rapid ventricular response. On 02/08/25, the patient was seen by Dr. Peters for esophageal dilation of esophageal stenosis, and Dr. Peters has been consulted. Due to difficulty establishing IV access, plan to place central line. The patient requires heparin and diltiazem infusions for the atrial fibrillation with RVR. Cardiology has been consulted. 08/03/25: No acute events overnight. The patient was assessed at the bedside this morning. Initially on HFNC, the patient was weaned off and transitioned to BiPAP. A central line was placed today due to difficulty with IV access. Urine culture preliminary results show gram-negative rods, Zosyn will be continued. 2/2 blood culture was positive for Staphylococcus epidermidis, will repeat blood cultures and continue Vancomycin. The heart rate remains elevated despite diltiazem 10 mg and two doses of digoxin (0.25 mg x1, 0.125 mg x1), with no significant improvement in heart rate. Further recommendations are pending from cardiology. 08/04/25: No significant events overnight. The patient was seen this morning with the radio frequency technician at the bedside. Will speak with Dr. Jerez regarding the management of the patient's respiratory status, as he has been overseeing her care as her radio adjuster. The patient is currently receiving methylprednisolone 16 mg IV and continues on BIPAP. Hypernatremia was noted on AM labs, and D5W was administered since the patient is on BIPAP and NPO, with an inability to place an NG tube for free water flushes. Will continue to trend sodium. Dr. Peters will perform an EGD once the patient's respiratory condition stabilizes. Cardiology is actively following the patient and will continue diltiazem and heparin drip for afib. Tachycardia has resolved. A KUB was ordered due to the patient's complaints of abdominal pain, which revealed a large stool burden. The patient's last bowel movement was yesterday. A water enema has been ordered. 08/05/25: No acute events overnight. A repeat blood culture grew 1/2 yeast, and the patient was given one dose of Micafungin. Infectious Disease was consulted. The patient remains hypernatremic following D5W administration yesterday. An NG tube will be placed to initiate free water flushes, with a free water deficit of 1.9L to reach a sodium goal of 145. Water flushes will be administered at 250cc every four hours. Sodium levels will continue to be monitored every 6 hours. Phosphate has been repleted. The patient remains on BiPAP, and Dr. Jerez recommends continuing steroids for lung support. 08/06/25: Patient seen and examined at bedside this morning. She is awake and able to nod yes/no but is limited in verbal communication due to BiPAP use. Denies chest pain. Reports ongoing shortness of breath when off BiPAP. Per nursing and respiratory therapy, patient was trialed on Oxymask at 7 L/min and was able to tolerate this for approximately 1.5 hours; however, she subsequently desaturated and required transition back to BiPAP. No new fevers or chills reported. Remains NPO and understands she is unable to eat or drink at this time. Family updated regarding current respiratory status and ongoing care plan. 08/07/25: NAOE. Plan for EGD with PEG tube today for terminal carman nutritional support. Discussed with lead wound care coordinator at beside that there's a possibility that patient may require stay in the ICU if she cannot be safely extubated after general anesthesia. Na level stable at 144. Patient requires to be on BiPAP all the time at this point. 08/08/25: NAOE. EGD PEG placement postponed from yesterday to today @ 3pm. Discussed with patient at bedside again for the possibility for her to stay at ICU until she can be safely extubated. Na 144, stable. Pause Insulin Degludec today given glucose of 96 this morning and patient had not been eating. Maintanence D5NaCl started @60ml/hr, will d/c once patient start feeding via PEG tube. 08/08/2025 (ICU): Patient seen and examined at bedside. she was s/p egd with dilation and peg tube placement. she remains intubated and mechanically ventillated. on precedex and fent pushes for sedation. plan to trial spontaneous breathing trial tomorrow. optomize ventilation to get her to baseline co2 retention by monitoring pco2 or end tidal of around 37. goal is not to overventilate. et confirmed above the gt. peg tube feeds initiated at trickle rates per dietitian recs. 08/09/2025 (ICU): Patient seen and examined at bedside. She was placed on spontaneous breathing trial in the AM and was successfully extubated to Bipap. will give x1 lasix 20 IV dose. 08/10/2025 (ICU): Patient seen and examined at bedside. A and O x3, she passed swallow eval with speech therapist, was downgraded from ICU. No acute events overnight. tolerating peg tube feeds. 08[facility]10[facility]25[facility]. Exam Vital Signs Temp Pulse Resp BP Pulse Ox O2 Del Method O2 Flow Rate 97.8 F 99 33 H 149/81 H 88 L Nasal Cannula 2 08/10/25 12:00 08/10/25 15:40 08/10/25 15:40 08/10/25 14:00 08/10/25 15:40 08/10/25 12:00 08/10/25 12:00 FiO2 40 08/10/25 05:46 Narrative Exam General: A/O x 3. on NC. Obese habitus, BMI 37. S/p PEG tube. HEENT: Normocephalic, atraumatic. Neck: Supple, thick neck. Cardiovascular: Regular rate and rhythm. No murmurs, rubs, or gallops. Respiratory: Crackles to all lung zones. Abdomen: Soft, nontender, nondistended. PEG tube intact. Objective Labs 08/10/25 04:40 08/10/25 04:40 Labs: Laboratory Results - last 24 hr 08/10/25 08/10/25 04:40 05:00 WBC 20.9 H D RBC 3.24 L Hgb 9.4 L Hct 31.1 L MCV 96 MCH 29.0 MCHC 30.2 L RDW Std Deviation 57.6 H Plt Count 194 D Neut % (Auto) 87 H Lymph % (Auto) 4 L [place] % (Auto) 4 Eos % (Auto) 0 Baso % (Auto) 1 Neut # (Auto) 18.2 H Lymph # (Auto) 0.9 L [place] # (Auto) 0.8 Eos # (Auto) 0.1 Baso # (Auto) 0.1 Immature Gran # (Auto) 0.86 H Absolute Nucleated RBC 0.12 H Immature Gran % 4 H Nucleated RBC % 1 H PT 10.7 INR 1.0 APTT 27.6 Puncture Site Right Radial ABG pH 7.41 ABG pCO2 63 H ABG pO2 64 L D ABG HCO3 40 H ABG O2 Saturation 96 ABG Base Excess 13 H FiO2 40 Sodium 140 Potassium 3.5 D Chloride 93 L Carbon Dioxide 38.0 H Anion Gap 9 BUN 16 Creatinine 0.8 Estim Creat Clear Calc 58.5 L eGFR > 60 BUN/Creatinine Ratio 20 Glucose 130 H Calculated Osmolality 282 Calcium 9.3 Corrected Calcium 9.9 Phosphorus 3.0 Magnesium 1.9 Iron 16 L TIBC 228 L Iron Saturation 7 L Unsat Iron Binding 212 L Total Bilirubin 0.4 AST 12 ALT 26 Alkaline Phosphatase 56 B-Natriuretic Peptide 308 H Total Protein 5.2 L Albumin 3.2 L Globulin 2.0 L Albumin/Globulin Ratio 1.6 Digoxin 1.2 ABG Interpretation ABG results: 08/01/25 08/01/25 08/02/25 02:15 09:05 12:15 ABG pH 7.25 L 7.30 L ABG pCO2 74 H* 66 H ABG pO2 62 L 84 D ABG HCO3 33 H 32 H ABG O2 Saturation 95 95 ABG Base Excess 4 H 4 H VBG pH 7.27 L VBG pCO2 63 H VBG pO2 Not Performed. VBG Base Excess 0 08/03/25 08/04/25 08/08/25 10:44 12:13 22:13 ABG pH 7.33 L 7.33 L 7.48 H ABG pCO2 64 H 69 H 53 H ABG pO2 88 85 259 H ABG HCO3 34 H 36 H 40 H ABG O2 Saturation 95 95 99 H ABG Base Excess 6 H 8 H 14 H VBG pH VBG pCO2 VBG pO2 VBG Base Excess 08/09/25 08/09/25 08/10/25 01:48 04:15 05:00 ABG pH 7.47 H 7.42 7.41 ABG pCO2 55 H 64 H 63 H ABG pO2 189 H D 97 D 64 L D ABG HCO3 40 H 41 H 40 H ABG O2 Saturation 100 H 100 H 96 ABG Base Excess 15 H 15 H 13 H VBG pH VBG pCO2 VBG pO2 VBG Base Excess Quality Measures Quality Measures VTE prophylaxis Advance care planning discussed with:: patient Assessment & Plan Assessment Current Active Medications: Generic Name Dose Route Start Last Admin Trade Name Freq PRN Reason Stop Dose Admin Acetaminophen 650 mg 08/01/25 05:05 Acetaminophen 325 Mg Tablet PO 08/31/25 05:04 Q6H PRN Fever >100.4 Apixaban 5 mg 08/08/25 21:00 08/10/25 08:59 Apixaban 2.5 Mg Tablet GT 09/07/25 20:59 5 mg BID LISETTE Administration Aspirin 81 mg 08/09/25 09:00 08/10/25 08:59 Aspirin 81 Mg Chew GT 09/08/25 08:59 81 mg DAILY LISETTE Administration Atorvastatin Calcium 10 mg 08/08/25 21:00 08/09/25 21:25 Atorvastatin Calcium 10 Mg Tablet GT 09/07/25 20:59 10 mg HS LISETTE Administration Dextrose 50 ml 08/01/25 05:16 Dextrose 50%-Water Inj 50 Ml Syringe IV 08/31/25 05:15 Q15MIN PRN BG <50 OR BG <70 & pt unresponsive Digoxin 0.125 mg 08/09/25 09:15 08/10/25 09:00 Digoxin 0.125 Mg Tablet 09/08/25 09:14 0.125 mg QDAY LISETTE Administration Diltiazem HCl 60 mg 08/09/25 09:00 Diltiazem 30 Mg Tablet GT 09/08/25 08:59 On Hold: 08/09/25 09:00 QID LISETTE Glucagon 1 mg 08/01/25 05:16 Glucagon Inj 1 Mg Vial IM Q15MIN PRN BG <70, and no IV access Dexmedetomidine/Sodium Chloride 400 mcg in 100 mls @ 5.325 mls/hr 08/08/25 15:27 08/09/25 08:00 Precedex Ivpb IV 09/07/25 15:26 0 mcg/kg/hr .[id number] PRN 0 mls/hr Per PROTOCOL Titration Protocol 0.2 MCG/KG/HR Insulin Degludec 15 unit 08/10/25 21:00 Insulin Degludec 5 Unit/0.05 Ml (Per 5 Units) SC 09/09/25 20:59 HS [facility] Insulin Human Lispro 0 unit 08/08/25 12:00 08/10/25 11:41 Insulin Lispro (Admelog) 1 Unit/0.01 Ml Unit SC 09/07/25 11:59 Not Given Q6HR [facility] Protocol Ipratropium Greene 0.5 mg 08/02/25 17:04 08/09/25 18:51 Ipratropium Rt 0.5 Mg/ 2.5 Ml Nebu INH 09/01/25 17:03 0.5 mg Q6HR PRN Administration SHORTNESS OF BREATH Levalbuterol HCl 0.63 mg 08/02/25 17:04 08/09/25 18:51 Levalbuterol Rt 0.63 Mg/3 Ml Nebu INH 09/01/25 17:03 0.63 mg Q6H PRN Administration WHEEZING Levothyroxine Sodium 100 mcg 08/09/25 06:00 08/10/25 05:40 Levothyroxine Sodium 100 Mcg Tablet GT 09/08/25 05:59 100 mcg ACBR LISETTE Administration Pantoprazole Sodium 40 mg 08/09/25 18:30 08/10/25 08:58 Pantoprazole Inj 40 Mg Vial IVP 09/08/25 18:29 40 mg QDAY LISETTE Administration Polyethylene Glycol 17 gm 08/09/25 09:00 08/10/25 09:01 Polyethylene Glycol 17 Gm Packet GT 09/08/25 08:59 17 gm DAILY LISETTE Administration Pramipexole Dihydrochloride 1 mg 08/09/25 21:00 08/09/25 21:27 Pramipexole 0.25 Mg Tablet GT 09/08/25 20:59 1 mg HS LISETTE Administration Prednisone 15 mg 08/10/25 10:30 08/10/25 11:39 Prednisone 5 Mg Tablet PO 08/24/25 10:17 15 mg QDAY LISETTE Administration Sennosides 1 tab 08/09/25 09:00 08/10/25 09:01 Senna Tablet GT 09/08/25 08:59 1 tab QDAY LISETTE Administration Protocol Sodium Chloride 3 ml 08/01/25 02:11 Sodium Chloride Rt Sravani 0.9% 3 Ml Nebu INH 08/31/25 02:10 PRN PRN SOLN Venlafaxine HCl 150 mg 08/01/25 09:00 08/10/25 08:59 Venlafaxine Xr 37.5 Mg Capcr PO 08/31/25 08:59 150 mg DAILY LISETTE Administration Plan 89-year-old female with chronic ILD/pulmonary fibrosis with chronic CO2 retention on home BiPAP, HFpEF, IDDM, and esophageal stenosis, admitted for acute on chronic hypoxic hypercapnic respiratory failure secondary to aspiration pneumonia, complicated by sepsis from Pseudomonas UTI, new-onset atrial fibrillation with RVR, severe dysphagia requiring NPO status and NG tube, and limited respiratory reserve with inability to tolerate sustained wean from BiPAP. #Esophageal stenosis s/p dilation #S/p PEG tube placement - s/p EGD with dilation for dysphagia secondary to esophageal stenosis on 02/08/2025. - GI recommended checking TSH and T4 to make sure patient is on adequate supplement as hypothyroidism can cause dysphagia. Both within normal range. - Persistent dysphagia is a major contributor to recurrent aspiration and respiratory failure. - 08/08/25: esophageal dilation + PEG tube placement. Plan: * Extensive [id number] discussion held with patient?s nephew, Jg, regarding risks, benefits, and alternatives to intervention, including hospice and palliative care. * Family understands the high risk of respiratory failure and prolonged intubation. * Family elects to proceed with EGD under monitored anesthesia care (MAC) despite elevated procedural risk. * Ongoing aspiration is suspected to be driven by severe dysphagia from esophageal stenosis, contributing to recurrent respiratory decompensation. * GI discussed that definitive options are limited to esophageal dilation or PEG tube placement, both of which require intubation and sedation. * Pulmonology has expressed concern that given the patient?s chronic pulmonary disease and BiPAP dependence, safe extubation following the procedure may not be possible. * Plan for EGD w/ PEG tube 08/08/[address] Peters under [place], may require ICU stay in cannot be safely extubated. --> downgraded to Medsurg 08/10/25. * Tube feed initated. Goal rate 65ml/hr. Water flush 30ml/hr x 22hrs. TF to be hold for one hour before and after levothyroxine. #Acute on chronic hypoxic hypercapnic respiratory failure, likely secondary to #Aspiration pneumonia #Pulmonary arterial hypertension #Interstitial lung disease #Pulmonary fibrosis - Known history of chronic interstitial lung disease and pulmonary fibrosis, contributing to chronic respiratory failure, chronic CO2 retention, and the need for BiPAP and home oxygen (2L). - Current acute exacerbation appears to be triggered by aspiration, likely exacerbated by recent intensified coughing after meals. The patient had worsening respiratory distress following dinner, with increasing cough and suspected aspiration of food. - Initial lactate was elevated at 2.4 --> 2.7 --> 2.3. Given the hypoxia and respiratory failure, the lactic acidosis may be due to tissue hypoperfusion and/or poor oxygenation. - Initial ABG showed pH 7.25, pCO2 74, pO2 62, bicarb 33, represents respiratory acidosis. - CXR 12/15: extensive bilateral pneumonia, prominent vascular congestion. - Patient is currently on a prednisone taper for ILD. - Patient failed ST swallow screen. - EGD and esophageal dilation on 02/08/25 for esophageal stenosis. - ABG 08/03: pH 7.33, pCO2 64, HCO3 34. Plan: * Pulmonology consulted, patient deemed high risk for intubation and prolonged ventilator dependence. * Continue strict NPO status and aspiration precautions. * Switched DuoNebs to Levalbuterol as patient is tachycardic. * Continuous pulse oximetry to closely monitor oxygen saturation. * Aspiration precautions. * Switched Prednisone 20mg PO QD to Methylprednisolone 16 mg IV QD as patient is NPO. Given the patient's history of interstitial lung disease, the steroid taper should proceed as planned, maintaining the current dose for 1 more week before reassessment. * Monitor for signs of worsening pneumonia or other complications. * Pulmonology has evaluated the patient and expressed concern that intubation for procedures may result in prolonged mechanical ventilation with high risk of inability to safely extubate, given chronic lung disease and BiPAP dependence. * Trial oxymask today (08/06) however patient desaturated after 1.5 hour, resumed BIPAP. * On Nasal 08/10/25 s/p extubation. #Sepsis #Staphylococcus epidermidis bacteremia #Pseudomonas aeruginosa UTI #Lactic acidosis #Leukocytosis - Etiology: Staphylococcus epidermidis bacteremia with suspected urinary tract infection as the source? - Lactate: 2.4 --> 2.7 --> 2.3. - WBC 23.2 on admission. - Blood culture 08/01: 2/2 GPC bacteremia. Staphylococcus epidermidis. - UA: 1+ protein, 44 RBC, 76 WBC, amorphous crystals, budding yeast, leukocyte esterase positive. Previous culture was positive for pansensitive Klebsiella Ozaenae. - Urine culture 08/01: Pseudomonas aeruginosa. Sensitive to Zosyn. - CXR: extensive bilateral pneumonia, prominent vascular congestion. - Fluids: 30 mL/kg, 2L of LR given in ED. - Blood culture 08/03: Yeast. Received one dose of Micafungin 50 mg. - Blood culture 08/05: NGTD Plan: * Infectious Disease consulted, recommend continue Zosyn at this time vs transition to Levofloxacin. * Stop Vancomycin * No further antifungal therapy recommended after single dose of micafungin. * Zosyn 2.25 g every 8 hours for UTI (08/01-08/08). * Oxygen / Ventilation: BiPAP. * Renal: strict I&O, avoid nephrotoxins. * CBC/BMP daily or more frequent if unstable. * Monitor organ dysfunction resolution or progression. * Continue to monitor repeat blood cultures and clinical status. #New onset Atrial fibrillation with RVR - EKG on 08/02 showed irregularly irregular rhythm rate 155 with RBBB. - No history of atrial fibrillation. - CHADSVASc score 6. - HASBLEED score 3. High Risk of major bleeding. - Was given diltiazem IV 20 mg x 1 and was started on diltiazem gtt. 5 mg/h which was increased to 10 mg/h as patient continued to remain tachycardic. - Three doses of digoxin (0.25 mg x2, 0.125 mg x1) given on 08/03 for tachycardia. Plan: * Cardiology consulted - appreciate recs. * Eliquis 5mg GT BID * Diltiazem 60mg GT QID * IV digoxin 0.125 GT * Check digoxin level 08/10 --> 1.2 * Keep potassium greater than 4 and magnesium greater than 2 at all times. #Hypernatremia #Hyperkalemia (resolved) - On admission, sodium 148 and potassium 5.2. - Likely secondary to decreased oral intake, lack of insulin, or hyperglycemia. - Patient received fluids in the ED and will start receiving insulin sliding scale. - Sodium continues to uptrend, peak at 153 on 08/04. - D5W given 08/04, sodium 153 --> 151. Plan: * NG tube placed. * Continue free water flushes at 250 cc per four hours for free water deficit of 1.9L. * Trend sodium levels Q6H. #NSTEMI - Likely secondary to demand ischemia. - Troponin of 0.051 --> 0.030. - EKG showed sinus tachycardia with a rate of 131 QTc 473, widened upright QRS in V1 may represent right bundle branch block, No acute ST segment changes in other leads Plan: * Continue to monitor for chest pain. #Insulin-dependent type 2 diabetes - Per caregiver the patient is on 35 units of Lantus every morning, sliding scale, and 8 units regular 3 times daily with meals. - Hemoglobin A1c 2 months ago was 6.4. - Glucose on admission was 241. Plan: * Insulin degludec 15 units QD. * Insulin sliding scale. * Carb consistent diet once patient passes swallow eval. #Chronic normocytic anemia - Hemoglobin 11.8, MCV 101. - Likely secondary to anemia of chronic disease secondary to history of breast cancer and interstitial lung disease. - No suspicion for active bleed at this time. Plan: * No direct intervention at this time. * Monitor CBC. #Chronic diastolic CHF, HFpEF - Echo from 12/2024 showed EF 65%. Trace mitral and trace tricuspid regurgitation, No wall motion abnormalities noted. - BNP 193. - CXR (08/02/2025): extensive bilateral lung opacity, Mild enlargement cardiac contour with significant vascular congestion on physical exam 1+ edema noted bilateral hips. - Patient's underlying respiratory status and lieu of ILD flare/aspiration pneumonia. - Echo 08/02/25: ejection fraction is 60-65%. Plan: * Strict I and Os. * Fluid restriction 1500ml. * Patient is not on diuretics outpatient because of chronic hypercapnia and diuresis can cause contraction alkalosis causing further respiratory decompensation. * Hold diuresis for now as patient does not seemed to be fluid overloaded. #Hyperlipidemia Plan: * Hold atorvastatin 10 mg GT #Hypothyroidism - Home medication: Levothyroxine 100 mcg daily. Plan: * Levothyroxine 100 mcg GT * TF to be hold for one hour before and after levothyroxine. #Chronic constipation - Per caregiver, the patient's last bowel movement was 07/30/2025. - Last bowel movement 08/03. - KUB 08/04: large amounts of stool throughout the colon. Plan: * Daily senna and MiraLAX. * Water edema ordered. #Depression Plan: * Hold home Venlafaxine 150 mg XR p.o. daily #Parkinson Plan: * Hold home pramipexole 1 mg GT Health Maintenance Disposition: tele, PEG tube placement DVT prophylaxis: Eliquis GI prophylaxis: Pantoprazole 40 mg IV daily Diet: Cardiac diet Queen: In place Lines: Peripheral IV, PEG tube CODE STATUS: DNR/DNI Case discussed with my senior resident Dr. Eller Case discussed with my attending Dr. Kelvin Combs, DO PGY 1
--- NOTE | 2025-08-10 17:14 | ESPR_ITS ---
Documentation for date of: 08/10/25 Subjective Subjective Interval history: Patient status post endoscopic dilatation of the esophagus with 50 mm savory dilator guidewire guided as well as placement of a PEG She is on 3 L nasal cannula Exam Vital Signs Temp Pulse Resp BP Pulse Ox O2 Del Method O2 Flow Rate 96.8 F 101 H 28 H 159/87 H 95 Nasal Cannula 3 08/10/25 16:06 08/10/25 16:06 08/10/25 16:06 08/10/25 16:06 08/10/25 16:06 08/10/25 16:06 08/10/25 16:06 FiO2 40 08/10/25 05:46 Objective Labs 08/10/25 04:40 08/10/25 04:40 Labs: Laboratory Results - last 24 hr 08/10/25 08/10/25 04:40 05:00 WBC 20.9 H D RBC 3.24 L Hgb 9.4 L Hct 31.1 L MCV 96 MCH 29.0 MCHC 30.2 L RDW Std Deviation 57.6 H Plt Count 194 D Neut % (Auto) 87 H Lymph % (Auto) 4 L [place] % (Auto) 4 Eos % (Auto) 0 Baso % (Auto) 1 Neut # (Auto) 18.2 H Lymph # (Auto) 0.9 L [place] # (Auto) 0.8 Eos # (Auto) 0.1 Baso # (Auto) 0.1 Immature Gran # (Auto) 0.86 H Absolute Nucleated RBC 0.12 H Immature Gran % 4 H Nucleated RBC % 1 H PT 10.7 INR 1.0 APTT 27.6 Puncture Site Right Radial ABG pH 7.41 ABG pCO2 63 H ABG pO2 64 L D ABG HCO3 40 H ABG O2 Saturation 96 ABG Base Excess 13 H FiO2 40 Sodium 140 Potassium 3.5 D Chloride 93 L Carbon Dioxide 38.0 H Anion Gap 9 BUN 16 Creatinine 0.8 Estim Creat Clear Calc 58.5 L eGFR > 60 BUN/Creatinine Ratio 20 Glucose 130 H Calculated Osmolality 282 Calcium 9.3 Corrected Calcium 9.9 Phosphorus 3.0 Magnesium 1.9 Iron 16 L TIBC 228 L Iron Saturation 7 L Unsat Iron Binding 212 L Total Bilirubin 0.4 AST 12 ALT 26 Alkaline Phosphatase 56 B-Natriuretic Peptide 308 H Total Protein 5.2 L Albumin 3.2 L Globulin 2.0 L Albumin/Globulin Ratio 1.6 Digoxin 1.2 Impressions Impression: Proximal esophagus cystoscopy status post endoscopic guidewire savory dilatation Dysphagia has improved Status post PEG placement for failure to thrive Advance diet if patient can tolerated Continue to monitor ABG Interpretation ABG results: 08/01/25 08/01/25 08/02/25 02:15 09:05 12:15 ABG pH 7.25 L 7.30 L ABG pCO2 74 H* 66 H ABG pO2 62 L 84 D ABG HCO3 33 H 32 H ABG O2 Saturation 95 95 ABG Base Excess 4 H 4 H VBG pH 7.27 L VBG pCO2 63 H VBG pO2 Not Performed. VBG Base Excess 0 08/03/25 08/04/25 08/08/25 10:44 12:13 22:13 ABG pH 7.33 L 7.33 L 7.48 H ABG pCO2 64 H 69 H 53 H ABG pO2 88 85 259 H ABG HCO3 34 H 36 H 40 H ABG O2 Saturation 95 95 99 H ABG Base Excess 6 H 8 H 14 H VBG pH VBG pCO2 VBG pO2 VBG Base Excess 08/09/25 08/09/25 08/10/25 01:48 04:15 05:00 ABG pH 7.47 H 7.42 7.41 ABG pCO2 55 H 64 H 63 H ABG pO2 189 H D 97 D 64 L D ABG HCO3 40 H 41 H 40 H ABG O2 Saturation 100 H 100 H 96 ABG Base Excess 15 H 15 H 13 H VBG pH VBG pCO2 VBG pO2 VBG Base Excess Assessment & Plan A&P Narrative dnr status seems to be at baseline wbc may be steroid related multiple listed allergies. prior id eval in may noted. abn ua in an 89 y/o lady with pos cx noted. not clear if she followed advice for vaginal estrogen in may. will review Friday again ild hx noted with hypercapnea. confounding things a bit. is in house frequently on steroids. at most low grade temps soon after arrival. wbc may be related to steroids but is done popularly on a daily basis. nasal mrsa neg. so mrsa an unlikely player in pneumonia bc with coag neg and repeats appear to be neg for any staph. line placed rt chest approx 08/03 so is fast for yeast. echo neg so stopped vanco and left on micafungin and zosyn and will check in again Friday pm. no objection to restarting micafungin but ok to leave her off as well no cough noted. no notable fever but is on steriods. best fever reducers on the planet but have other se's Time Spent With Patient Time: Total time spent is greater than 50% in coordination of care (as documented) at patient's floor/unit and/or counseling patient:
[2025-08-10] MEDS: INSULIN LISPRO (AdmeLOG) 1 UNIT/0.01 ML UNIT SC (18:16)
[2025-08-10] MEDS: ATORVASTATIN CALCIUM 10 MG TABLET GT (20:43)
[2025-08-10] MEDS: PRAMIPEXOLE 0.25 MG TABLET 1 MG GT (20:43)
[2025-08-10] MEDS: DILTIAZEM 30 MG TABLET GT (20:44)
[2025-08-10] MEDS: INSULIN DEGLUDEC 5 UNIT/0.05 ML (PER 5 UNITS) 15 UNIT SC (20:44)
[2025-08-11] VITALS (17 sets, daily range): BP systolic 122–182; BP diastolic 53–94; PULSE 92–113; RESP 10–36; TEMP 36.3–37; O2SAT 86–100
[2025-08-11] MEDS: INSULIN LISPRO (AdmeLOG) 1 UNIT/0.01 ML UNIT SC ×4 (01:10→23:40)
[2025-08-11 05:35] LABS: Basophils # (Auto) 0.1 Thou/mm3 (0.0-0.2); Basophils % (Auto) 0 % (0-2.5); Eosinophils # (Auto) 0.1 Thou/mm3 (0.0-0.5); Eosinophils % (Auto) 1 % (0-10); Hematocrit 29.8 % (36.0-46.0); Hemoglobin 9.1 g/dL (12.0-16.0); Immature Granulocytes Auto 0.55 Thou/mm3 (0.00-0.00); Lymphocytes # (Auto) 0.7 Thou/mm3 (1.0-4.8); Lymphocytes % (Auto) 4 % (10-50); Mean Corpuscular HGB Conc 30.5 g/dl (31.0-37.0); Mean Corpuscular Hemoglobin 29.4 pg (25.0-35.0); Mean Corpuscular Volume 96 fL (80-100); Monocytes # (Auto) 0.5 Thou/mm3 (0.0-0.8); Monocytes % (Auto) 3 % (0-12); Neutrophils # (Auto) 13.8 Thou/mm3 (1.8-7.7); Neutrophils % (Auto) 88 % (37-80); Nucleated Red Blood Cell # 0.14 Thou/mm3 (0.00-0.00); Nucleated Red Blood Cell % 1 /100 WBC (0); Platelet Count 185 Thou/mm3 (140-440); RDW Standard Deviation 57.5 fL (36.4-46.3); Red Blood Count 3.09 Miln/mm3 (4.00-5.20); White Blood Count 15.7 Thou/mm3 (3.6-11.0)
[2025-08-11] MEDS: LEVOTHYROXINE SODIUM 100 MCG TABLET GT (05:40)
[2025-08-11] MEDS: DILTIAZEM 30 MG TABLET GT (05:40)
[2025-08-11 06:13] LABS: Alanine Aminotransferase 21 U/L (10-49); Albumin, Serum 3.2 gm/dL (3.4-4.8); Albumin/Globulin Ratio 1.4 (1.2-2.2); Alkaline Phosphatase 67 U/L (46-116); Anion Gap 8 (7-16); Aspartate Amino Transferase 16 U/L (0-34); BUN/Creatinine Ratio 18 Ratio (12-20); Bilirubin,Total 0.3 mg/dL (0.3-1.2); Blood Urea Nitrogen 14 mg/dL (9-23); Calcium 10.3 mg/dL (8.3-10.6); Calcium (Corrected) 10.9 mg/dL (8.5-10.1); Carbon Dioxide 37.6 mMol/L (20.0-31.0); Chloride 94 mMol/L (98-107); Creatinine (Component) 0.8 mg/dL (0.6-1.3); Digoxin 1.1 ng/mL (0.8-2.0); Estimated Creatinine Clearance 56.9 mL/min (>60); Globulin 2.3 gm/dL (2.3-3.5); Glucose 183 mg/dL (74-106); Magnesium 2.2 mg/dL (1.6-2.6); Osmolality,Calculated 284 (275-295); Phosphorous 2.3 mg/dL (2.4-5.1); Potassium 4.8 mMol/L (3.4-5.1); Sodium 140 mMol/L (136-145); Total Protein 5.5 gm/dL (5.7-8.2); eGFR > 60 See Note
--- NOTE | 2025-08-11 08:00 | ESPR_ITS ---
Documentation for date of: 08/11/25 Subjective Subjective Interval history: Ms Adelaida Coffman is 89yF with PMH of interstitial lung disease, pulmondary fibrosis, chronic CO2 retention on 2L home oxygen and BiPAP, HFpEF, bedbound, recurrent UTIs, hypothyrodism, right breast cancer status postlumpectomy, insulin-dependent type 2 diabetes, GERD, depression, and chronic back pain, presented to the ED on 08/01/2025 due to hypoxemia. The patient started to cough following lunch the day before admission (07/31) and worsened while eating her dinner on the same day. The caregiver noted the patient was expectorating phlegm without any food particles, and suspected possible aspiration. Per EMS note, patient's oxygen level was in 30s and at 68% on 2L nasal cannula and to mid 80s after albuterol treatment. Patient was admitted for acute on chronic hypoxic hypercapnic respiratory failure and aspiration pneumonia. Cardiology was consulted for management of new onset Afib on EKG. ED course: Vitals: Temp 99.6F, AZ: 128, RR:28, BP: 127/74, O2sat:95% On Oxy mask 15L Labs: WBC 23.2, Hgb:11.8, ABG pCO2:74, ABG pH:7.25, Na:148, K:5.2, HCO2: 33.1, Cr:1.2, eGFR:43, Glucose: 241, HbA1c: 6.6, Lactic acid:2.4 (increased to 18.0 in 3hrs), Ca 9.8 (decreased to 6.4 in 3hrs), Troponin:0.051, BNP: 193 CXR (08/01/2025): Extensive bilateral pneumonia, consider associated mild heart failure In ED, Patient received 125 mg IV push methylprednisolone, Zosyn, treatment with albuterol, ipratropium, a dose of vancomycin, 2.5 L of L Medical history: As stated above Surgical history: Right breast lumpectomy, Cholesectomy Allergies: Cefuroxime, Topical zinc, Iodine contrast, Sulfa, Influenza virus, Cefuroxime Medications: Vitamin C 500 mg twice a day, Aspirin 81 mg daily, Calcium vitamin D supplement, Estrogen vaginal cream, [place] 5-3 25 p.o. 3 times daily as needed for pain, Hydroxyzine 25 mg tablet every 6 hours as needed for anxiety, Levothyroxine 100 mcg daily, Metformin 500 mg daily, 35 insulin degludec every morning, 8 units 3 times daily with meals, plus sliding scale, Methenamine 1 g p.o. twice daily, Metoprolol succinate 25 mg daily, Omeprazole 40 mg daily, Pramipexole 1 mg daily, Prednisone 20 mg daily, taper currently, Rosuvastatin 5 mg nightly, Venlafaxine 150 mg XR daily Family history: Noncontributory Social history: Denies smoking cigarettes, drinking alcohol or using other illicit drugs, Lives at home, 24-hour caregiver support 08/02/2025: Labs reviewed and patient examined at the bedside. Recommend Diltiazem drip 10mg/hr and heparin drip if no contraindication to anticoagulation. Also recommend stopping metoprolol due to history of ILD and to avoid bronchospasm. ECHO is pending. Recommend IV lasix 20mg x1 after examining her kidney function and fluid status tomorrow. Upon examination, patient complains of SOB. but denies palpation, chest pain, nausea or vomiting. 08/03/2025: No Overnight events. Labs reviewed and patient examined at the bedside. This morning, patient was tachycardc (HR 120s) with low BP 109/86. Patient was given IV Digoxin 0.25mg x1 and 0.125mg x1 this morning. Patient was still tachycardic this afternoon, so another IV Digoxin 0.25mg x1 was given. Will assess her BP and HR tomorrow. Recommend increasing Ditiazem drip 10mg/hr to 15mg/hr tomorrow if patient is still tachycardic as long as BP tolerates. Patient's sodium increased from 149 to 152, likely from dehydration. No need for diuresis for now. Recommend putting NG tube and give water flushes for hypernatremia, and change heparin drip to oral eliquis and IV digoxin to PO digoxin. Denies chest pain, palpation, N/V, fevers or chills. 08/04/2025: Labs reviewed and patient examined at the bedside. Morning tele monitoring showed Afib, rate controlled. Patient will continue on Diltiazem drip 10mg/hr and IV digoxin 0.125mg qd. Pt's Na level was 153. Started on D5W 80ml/hr, now downtrending to 151. Denies chest pain, palpation, abdominal pain, N/V, fevers or chills. 08/05/2025: No Overnight events. Labs reviewed and patient examined at the bedside. Continue Diltiazem drip 10mg/hr and IV digoxin 0.125mg qd. Sodium level today was 151. Denies chest pain, palpation, SOB, abdominal pain, N/V, fevers or chills. 08/06/2025: Patient seen and examined at bedside. Currently no complaints, looks euvolemic no indication for diuresis for now. Patient has NG tube intact getting free water flushes, patient has been n.p.o. since last 5 days has not been fed. Recommend following up with dietitian/GI regarding feeding. Otherwise heart rate well-controlled on diltiazem 10 mg/h and digoxin 0.125 mg every day. Patient on heparin drip. Transition to diltiazem 240 mg daily and digoxin 0.125 mg orally when able. Steroids being continued per pulmonology recommendations. 08/07/2025: Patient seen and examined at bedside. Telemetry reviewed. Currently no complaints, looks euvolemic no indication for diuresis for now. Patient has NG tube intact getting free water flushes, patient has been n.p.o. since last 6 days has not been fed. Plan for EGD with PEG tube today for longterm nutritional support under general anesthesia. Otherwise heart rate well-controlled on diltiazem 10 mg/h and digoxin 0.125 mg every day. Patient on heparin drip. Transition to diltiazem 240 mg daily and digoxin 0.125 mg orally when able. 08/08/2025: Patient s/p PEG tube placement due to dysphagia. Procedure needed to be done in ICU as she required intubation. Continue with Diltiazem drip for now. Change to Oral immediate release cardizem 60mg qid, Digoxin 0.125mg po qd, and eliquis 5mg po bid tonight. Discontinue heparin drip. Continue with Aspirin and Atorvastatin. Check for Digoxin level on 08/10. 08/09/2025: This morning, patient's HR was in 50s, so Cardizem and Digoxin was not given. Currently HR is going up. Recommend starting on Cadizem 60mg po qid if HR increases to appropriate level. Continue eliquis, and aspirin. Patient looked slightly fluid overloaded, so was given IV furosemide 20mg x1. Check for Digoxin level on 08/10. Will continue to follow. 08/10/2025: Patient's BP 159/87 with HR 101. Currently on Digoxin 0.125mg gt qd. Started on Cardizem 30mg gt qid. Ordered Digoxin level. Will continue eliquis and aspirin. Patient denies any chest pain, palpitation, N/V, headaches. 08/11/2025: Patient is status post PEG tube placement. This morning her BP was 153/54 with pulse rate 100 with 94% O2 saturation on BiPAP. Increased Cardizem from 30 mg to 60 mg GT 4 times daily. Continue digoxin 0.125 GT daily. Digoxin level was 1.1 today. Continue aspirin 81 mg GT daily and Eliquis 5 mg GT twice daily and atorvastatin 10 mg GT at bedtime. On examination, patient endorsed shortness of breath, but denied any chest pain, palpitations, headaches, nausea, or vomiting. Will continue to monitor. Exam Vital Signs Temp Pulse Resp BP Pulse Ox O2 Del Method O2 Flow Rate 98.1 F 112 H 16 153/54 H 94 L BiPAP 3 08/11/25 08:00 08/11/25 11:20 08/11/25 08:00 08/11/25 09:45 08/11/25 08:10 08/11/25 08:00 08/10/25 19:55 FiO2 40 08/11/25 08:00 Narrative Exam General: Chronically ill-appearing woman, obese habitus, on bipap HEENT: Normocephalic, atraumatic. Heart:normal S1 and S2, no murmurs. Regular rate and rhythm. Lungs: Mild wheezing bilateral. Abdomen: Obese, firm, distended, tender. No guarding or rebound tenderness. Neurologic: Alert and oriented x3, no gross neurological deficit, and patient able to move all 4 extremities. Extremities: Trace lower extremity edema, clubbing or cyanosis. No joint deformity. Skin: Warm and dry without rashes. : Queen in place, draining yellow urine. Objective Labs 08/11/25 04:45 08/11/25 04:45 Labs: Laboratory Results - last 24 hr 08/11/25 04:45 WBC 15.7 H D RBC 3.09 L Hgb 9.1 L Hct 29.8 L MCV 96 MCH 29.4 MCHC 30.5 L RDW Std Deviation 57.5 H Plt Count 185 Neut % (Auto) 88 H Lymph % (Auto) 4 L [place] % (Auto) 3 Eos % (Auto) 1 Baso % (Auto) 0 Neut # (Auto) 13.8 H Lymph # (Auto) 0.7 L [place] # (Auto) 0.5 Eos # (Auto) 0.1 Baso # (Auto) 0.1 Immature Gran # (Auto) 0.55 H Absolute Nucleated RBC 0.14 H Immature Gran % 4 H Nucleated RBC % 1 H Sodium 140 Potassium 4.8 D Chloride 94 L Carbon Dioxide 37.6 H Anion Gap 8 BUN 14 Creatinine 0.8 Estim Creat Clear Calc 56.9 L eGFR > 60 BUN/Creatinine Ratio 18 Glucose 183 H D Calculated Osmolality 284 Calcium 10.3 Corrected Calcium 10.9 H Phosphorus 2.3 L Magnesium 2.2 Total Bilirubin 0.3 AST 16 ALT 21 Alkaline Phosphatase 67 Total Protein 5.5 L Albumin 3.2 L Globulin 2.3 Albumin/Globulin Ratio 1.4 Digoxin 1.1 ABG Interpretation ABG results: 08/01/25 08/01/25 08/02/25 02:15 09:05 12:15 ABG pH 7.25 L 7.30 L ABG pCO2 74 H* 66 H ABG pO2 62 L 84 D ABG HCO3 33 H 32 H ABG O2 Saturation 95 95 ABG Base Excess 4 H 4 H VBG pH 7.27 L VBG pCO2 63 H VBG pO2 Not Performed. VBG Base Excess 0 08/03/25 08/04/25 08/08/25 10:44 12:13 22:13 ABG pH 7.33 L 7.33 L 7.48 H ABG pCO2 64 H 69 H 53 H ABG pO2 88 85 259 H ABG HCO3 34 H 36 H 40 H ABG O2 Saturation 95 95 99 H ABG Base Excess 6 H 8 H 14 H VBG pH VBG pCO2 VBG pO2 VBG Base Excess 08/09/25 08/09/25 08/10/25 01:48 04:15 05:00 ABG pH 7.47 H 7.42 7.41 ABG pCO2 55 H 64 H 63 H ABG pO2 189 H D 97 D 64 L D ABG HCO3 40 H 41 H 40 H ABG O2 Saturation 100 H 100 H 96 ABG Base Excess 15 H 15 H 13 H VBG pH VBG pCO2 VBG pO2 VBG Base Excess Quality Measures Quality Measures VTE prophylaxis Advance care planning discussed with:: patient and other Assessment & Plan Assessment Current Active Medications: Generic Name Dose Route Start Last Admin Trade Name Freq PRN Reason Stop Dose Admin Acetaminophen 650 mg 08/01/25 05:05 Acetaminophen 325 Mg Tablet PO 08/31/25 05:04 Q6H PRN Fever >100.4 Apixaban 5 mg 08/08/25 21:00 08/11/25 09:45 Apixaban 2.5 Mg Tablet GT 09/07/25 20:59 5 mg BID LISETTE Administration Aspirin 81 mg 08/09/25 09:00 08/11/25 09:45 Aspirin 81 Mg Chew GT 09/08/25 08:59 81 mg DAILY LISETTE Administration Atorvastatin Calcium 10 mg 08/08/25 21:00 08/10/25 20:43 Atorvastatin Calcium 10 Mg Tablet GT 09/07/25 20:59 10 mg HS LISETTE Administration Dextrose 50 ml 08/01/25 05:16 Dextrose 50%-Water Inj 50 Ml Syringe IV 08/31/25 05:15 Q15MIN PRN BG <50 OR BG <70 & pt unresponsive Digoxin 0.125 mg 08/09/25 09:15 08/11/25 09:45 Digoxin 0.125 Mg Tablet GT 09/08/25 09:14 0.125 mg QDAY LISETTE Administration Diltiazem HCl 60 mg 08/11/25 12:00 Diltiazem 30 Mg Tablet GT 09/10/25 11:59 QID LISETTE Glucagon 1 mg 08/01/25 05:16 Glucagon Inj 1 Mg Vial IM Q15MIN PRN BG <70, and no IV access Dexmedetomidine/Sodium Chloride 400 mcg in 100 mls @ 5.325 mls/hr 08/08/25 15:27 08/09/25 08:00 Precedex Ivpb IV 09/07/25 15:26 0 mcg/kg/hr .[id number] PRN 0 mls/hr Per PROTOCOL Titration Protocol 0.2 MCG/KG/HR Sodium Phosphate 15 mmol/ 255 mls @ 62.5 mls/hr 08/11/25 08:00 08/11/25 09:46 Sodium Chloride IV 08/11/25 12:04 62.5 mls/hr X1 ONE Administration Insulin Degludec 15 unit 08/10/25 21:00 08/10/25 20:44 Insulin Degludec 5 Unit/0.05 Ml (Per 5 Units) SC 09/09/25 20:59 15 unit HS LISETTE Administration Insulin Human Lispro 0 unit 08/08/25 12:00 08/11/25 05:47 Insulin Lispro (Admelog) 1 Unit/0.01 Ml Unit SC 09/07/25 11:59 Not Given Q6HR LISETTE Protocol Ipratropium [place] 0.5 mg 08/02/25 17:04 08/09/25 18:51 Ipratropium Rt 0.5 Mg/ 2.5 Ml Nebu INH 09/01/25 17:03 0.5 mg Q6HR PRN Administration SHORTNESS OF BREATH Levalbuterol HCl 0.63 mg 08/02/25 17:04 08/09/25 18:51 Levalbuterol Rt 0.63 Mg/3 Ml Nebu INH 09/01/25 17:03 0.63 mg Q6H PRN Administration WHEEZING Levothyroxine Sodium 100 mcg 08/09/25 06:00 08/11/25 05:40 Levothyroxine Sodium 100 Mcg Tablet GT 09/08/25 05:59 100 mcg ACBR LISETTE Administration Pantoprazole Sodium 40 mg 08/09/25 18:30 08/11/25 09:46 Pantoprazole Inj 40 Mg Vial IVP 09/08/25 18:29 40 mg QDAY LISETTE Administration Polyethylene Glycol 17 gm 08/09/25 09:00 08/11/25 09:45 Polyethylene Glycol 17 Gm Packet GT 09/08/25 08:59 17 gm DAILY LISETTE Administration Pramipexole Dihydrochloride 1 mg 08/09/25 21:00 08/10/25 20:43 Pramipexole 0.25 Mg Tablet GT 09/08/25 20:59 1 mg HS LISETTE Administration Prednisone 15 mg 08/12/25 09:00 Prednisone 5 Mg Tablet GT 09/11/25 08:59 QDAY LISETTE Sennosides 1 tab 08/09/25 09:00 08/11/25 09:46 Senna Tablet GT 09/08/25 08:59 1 tab QDAY LISETTE Administration Protocol Sodium Chloride 3 ml 08/01/25 02:11 Sodium Chloride Rt [place] 0.9% 3 Ml Nebu INH 08/31/25 02:10 PRN PRN SOLN Venlafaxine HCl 150 mg 08/01/25 09:00 08/11/25 09:45 Venlafaxine Xr 37.5 Mg Capcr PO 08/31/25 08:59 150 mg DAILY LISETTE Administration Plan Ms. Coffman is a 89-year-old female with past medical history of ILD/pulmonary fibrosis/chronic hypersensitivity pneumonitis with chronic respiratory failure on 2 L home oxygen and BiPAP currently on steroid taper, pulmonary arterial hypertension, heart failure with preserved ejection fraction, EF 60-65%, chronically bedbound, recurrent MDR UTIs, hypothyroidism, right breast cancer status postlumpectomy with lymph node dissection, insulin-dependent type 2 diabetes mellitus, GERD, depression, chronic back pain and nephrolithiasis who presented to [facility] emergency department on 08/01/2025 with a chief complaint of hypoxia. Cardiology was consulted for management of new onset Afib on EKG. #New Onset A Fib with RVR -diagnosed July 2025 Patient has SOB. Denies palpation or chest pain. EKG showed irregularly irregular rhythm rate 155 with RBBB. MAT ruled out. No history of atrial fibrillation CHADSVASc score 6 HASBLEED score 3. High Risk of major bleeding Was given diltiazem IV 20 mg x 1 and was started on diltiazem gtt. 5 mg/h which was increased to 10 mg/h as patient continued to remain tachycardic On August 03 patient was noted to be significantly tachycardic with low blood pressure, was given total IV digoxin 0.625 mg loading dose and now on Digoxin 0.125mg po qd - rate controlled now -On 08/11, Digoxin level was 1.1 Plan: -Continue Aspiring 81 mg GT qd, and Eliquis 5 mg p.o. twice daily - Increased Cardizem from 30 mg to 60 mg GT 4 times daily. Currently on Digoxin 0.125mg GT qd. -Recommend Holter monitor outpatient to assess A fib burden. 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 Pulmonology notes reviewed. Patient steroid taper is being managed by resident clinic outpatient with recommendations from pulmonology remotely. Patient has had multiple admissions for hypercapnia, currently using BiPAP every night with [employer]. Patient does have history of heart failure, HFpEF with a EF 60 to 65%, never seen a stone decorator outpatient, patient not on diuretics outpatient per resident clinic note as patient has chronic hypercapnia and diuresis causes contraction alkalosis causing further respiratory decompensation. CXR (08/02/2025): extensive bilateral lung opacity, Mild enlargement cardiac contour with significant vascular congestion on physical exam 1+ edema noted bilateral hips. Patient's underlying respiratory status and lieu of ILD flare/aspiration pneumonia ECHO (08/02/2025) showed: 1. Left ventricle size is normal and systolic function is normal. Estimated ejection fraction is 60-65%. There is indeterminate diastolic function due to afib. There is mild concentric hypertrophy noted. 2. Right ventricle is not well visualized. RV function appears normal. 3. There is mild aortic valve sclerosis with no stenosis. 4. Mild thickening of the mitral valve leaflets. Mild MR, mild MAC. Mild TR. 5. Normal IVC with estimated RA pressure 3 mmHg. 6. Prior study from 12/29/2024. Plan: - Held diuresis initially as the patient was euvolemic and not receiving any kind of nutrition,Recommend to continue as needed IV diuresis and eventually need to be discharged at least on Lasix 20 mg once daily or 40 mg once daily based on renal function -Strict intake and output, daily weight -Fluid restriction 1500ml, cardiac diet -Keep magnesium greater than 2 and potassium greater than 4 at all times -Management of respiratory disease per primary team #?Pulmonary Hypertension, Group III #Hx of Interstitial Lung Disease - Patient has established diagnosis of interstitial lung disease, pulmonary fibrosis secondary to chronic hypersensitivity pneumonitis - Patient had echo in the past with elevated right-sided pressures suggestive of pulmonary hypertension - Chest CT (08/01/2025): Pulmonary artery hypertension, Severe pneumonia and/or edema throughout the lungs - Recommend outpatient workup for pulmonary hypertension Plan: -BiPAP prn -Duoneb prn -Steroid taper per pulmonology # Hypertension In ED, 155/80 blood pressure well-controlled -Start on immediate release cardizem 60mg qid PO #Hypernatremia #Acute on chronic hypoxic hypercapnic respiratory failure, likely secondary to #Aspiration pneumonia #Sepsis #GPC bacteremia #Lactic acidosis #Leukocytosis #UTI #Insulin-dependent type 2 diabetes #Esophageal stenosis s/p dilation #Chronic normocytic anemia #Hyperlipidemia #Hypothyroidism #Chronic constipation #Depression #Parkinson -Management per Primary Hospitalist team Thank you for allowing us to participate in the care of Ms Adelaida Coffman. Cardiology will continue to follow Assessment and plan discussed with my attending physician Dr. Tj Stovall (PGY-1) - Internal medicine resident Attending Provider Attestation/Addendum I reviewed the resident Dr. Freedom Stovall consultation progress note and agree with the resident findings and plan in the note above and have also edited the documentation to reflect my findings and plan. Steven Spencer M.D. Interventional Cardiology
--- NOTE | 2025-08-11 08:58 | ESPR_ITS ---
<Statement entered by John Paul Warren MD - 08/15/25 07:59> I reviewed above note and agree with findings and plans. I have also personally examined the patient with medicine team and went over assessment and plan with medical team including technology internship and resident physician. <Statement entered by Jeffry Eller MD - 08/11/25 16:27> In summary: This 89-year-old female with a complex medical history including chronic IDL, pulmonary fibrosis with chronic CO2 retention on BiPAP, and IDDM, who was admitted for acute on chronic hypoxic hypercapnic respiratory failure triggered by aspiration pneumonia. Her hospital course was further complicated by sepsis (due to a Pseudomonas UTI and GPC bacteremia) and new-onset atrial fibrillation with RVR, which required management with diltiazem and digoxin. A primary assembly line driver of her respiratory instability is severe dysphagia secondary to esophageal stenosis. Due to her inability to tolerate oral intake and the high risk of recurrent aspiration, she underwent an EGD with esophageal dilation and PEG tube placement on August 08. Although the procedure required general anesthesia and carried a significant risk of prolonged mechanical ventilation, she was successfully extubated and transitioned to a nasal cannula by August 10. Current management focuses on stabilizing her respiratory and nutritional status. She is now receiving tube feeds at a goal of 65 ml/hr and is being treated with a steroid taper for her ILD and Zosyn for her infections. Her cardiac status is being managed with Eliquis and diltiazem for Afib, while her free water flushes have been adjusted to address hypernatremia. Given her limited respiratory reserve and dependence on BiPAP, she remains at high risk for future decompensation. I?ve reviewed the note and agree with this assessment and plan, with the exceptions outlined above. I personally went over the labs, imaging, home medications, and prior records, and examined the patient. The case was also reviewed with the attending physician. Please note: this document was transcribed using voice recognition technology; minor inaccuracies may be present. 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 Patient was on BiPAP and most history was gathered from the caregiver. Per the caregiver, patient ate lunch the day before and began to have coughing episodes. These episodes were intensified after the patient ate half of her dinner, at which time the caregiver took away the patient's food. Caregiver mentioned that the patient was coughing up phlegm with no food particles, and was concerned for aspiration and therefore called EMS. When the ambulance arrived it was reported that the patient was saturating in the high 30s. Per EMS the patient was saturating at 68% on 2 L nasal cannula and went up to the mid 80s after 2 albuterol treatments and route. Patient was admitted for acute on chronic hypoxic hypercapnic respiratory failure secondary to interstitial lung disease and possible aspiration pneumonia as well as UTI. 08/01/25: Patient was evaluated this morning with wood type cutter present at the bedside. Patient is currently on BIPAP with a flow rate of 40, saturating at 93%. The patient is alert and oriented to person, place, and year, and reports no complaints at this time. Per wood type cutter, patient has had several hospitalizations due to similar symptoms of shortness of breath and asymptomatic recurrent UTIs. Blood culture came back positive for gram positive cocci resembling staph in one of the bottles - started Vancomycin. 08/02/25: No acute events overnight. The patient was evaluated at the bedside this morning and was on BIPAP at 40%. Blood cultures from both bottles returned positive for gram-positive cocci, and vancomycin was initiated. An echocardiogram has been ordered and pending. Patient did not pass swallow screen yesterday. Speech therapy assessed the patient this morning and noted audible air after every swallow, followed by regurgitation that persisted for 15 minutes. The patient required oral suction with strong coughing. Desaturation occurred, dropping to 85%, accompanied by an elevated heart rate. As a result, the patient was placed NPO, and respiratory therapy was called for deep suctioning and to place the patient on high-flow oxygen. An ABG, CXR, and EKG were ordered. The CXR revealed significant bilateral pneumonia with an ARDS pattern, while the EKG showed atrial fibrillation with rapid ventricular response. On 02/08/25, the patient was seen by Dr. Peters for esophageal dilation of esophageal stenosis, and Dr. Peters has been consulted. Due to difficulty establishing IV access, plan to place central line. The patient requires heparin and diltiazem infusions for the atrial fibrillation with RVR. Cardiology has been consulted. 08/03/25: No acute events overnight. The patient was assessed at the bedside this morning. Initially on HFNC, the patient was weaned off and transitioned to BiPAP. A central line was placed today due to difficulty with IV access. Urine culture preliminary results show gram-negative rods, Zosyn will be continued. 2/2 blood culture was positive for Staphylococcus epidermidis, will repeat blood cultures and continue Vancomycin. The heart rate remains elevated despite diltiazem 10 mg and two doses of digoxin (0.25 mg x1, 0.125 mg x1), with no significant improvement in heart rate. Further recommendations are pending from cardiology. 08/04/25: No significant events overnight. The patient was seen this morning with the wood type cutter at the bedside. Will speak with Dr. Jerez regarding the management of the patient's respiratory status, as he has been overseeing her care as her councilor. The patient is currently receiving methylprednisolone 16 mg IV and continues on BIPAP. Hypernatremia was noted on AM labs, and D5W was administered since the patient is on BIPAP and NPO, with an inability to place an NG tube for free water flushes. Will continue to trend sodium. Dr. Peters will perform an EGD once the patient's respiratory condition stabilizes. Cardiology is actively following the patient and will continue diltiazem and heparin drip for afib. Tachycardia has resolved. A KUB was ordered due to the patient's complaints of abdominal pain, which revealed a large stool burden. The patient's last bowel movement was yesterday. A water enema has been ordered. 08/05/25: No acute events overnight. A repeat blood culture grew 1/2 yeast, and the patient was given one dose of Micafungin. Infectious Disease was consulted. The patient remains hypernatremic following D5W administration yesterday. An NG tube will be placed to initiate free water flushes, with a free water deficit of 1.9L to reach a sodium goal of 145. Water flushes will be administered at 250cc every four hours. Sodium levels will continue to be monitored every 6 hours. Phosphate has been repleted. The patient remains on BiPAP, and Dr. Jerez recommends continuing steroids for lung support. 08/06/25: Patient seen and examined at bedside this morning. She is awake and able to nod yes/no but is limited in verbal communication due to BiPAP use. Denies chest pain. Reports ongoing shortness of breath when off BiPAP. Per nursing and respiratory therapy, patient was trialed on Oxymask at 7 L/min and was able to tolerate this for approximately 1.5 hours; however, she subsequently desaturated and required transition back to BiPAP. No new fevers or chills reported. Remains NPO and understands she is unable to eat or drink at this time. Family updated regarding current respiratory status and ongoing care plan. 08/07/25: NAOE. 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 Discussed with lead reproductive healthcare assistant at beside that there's a possibility that patient may require stay in the ICU if she cannot be safely extubated after general anesthesia. Na level stable at 144. Patient requires to be on BiPAP all the time at this point. 08/08/25: NAOE. EGD PEG placement postponed from yesterday to today @ 3pm. Discussed with patient at bedside again for the possibility for her to stay at ICU until she can be safely extubated. Na 144, stable. Pause Insulin Degludec today given glucose of 96 this morning and patient had not been eating. Maintanence D5NaCl started @60ml/hr, will d/c once patient start feeding via PEG tube. 08/08/2025 (ICU): Patient seen and examined at bedside. she was s/p egd with dilation and peg tube placement. she remains intubated and mechanically ventillated. on precedex and fent pushes for sedation. plan to trial spontaneous breathing trial tomorrow. optomize ventilation to get her to baseline co2 retention by monitoring pco2 or end tidal of around 37. goal is not to overventilate. et confirmed above the gt. peg tube feeds initiated at trickle rates per dietitian recs. 08/09/2025 (ICU): Patient seen and examined at bedside. She was placed on spontaneous breathing trial in the AM and was successfully extubated to Bipap. will give x1 lasix 20 IV dose. 08/10/2025 (ICU): Patient seen and examined at bedside. A and O x3, she passed swallow eval with speech therapist, was downgraded from ICU. No acute events overnight. tolerating peg tube feeds. 08/10/25: [facility] A[facility]O x 3. 08/11/25: NAOE. Pt on BiPAP when napping. RT was called for mask fitting, as patient seems to have a lot of airleak. Her current TF rate is at 40ml/hr. Goal is 65ml/hr. She's tolerating TF well, will continue to monitor, but patient can likely be discharged once TF reach the goal. Her diet was changed to dysphagia diet per speech therpist recommendation Exam Vital Signs Temp Pulse Resp BP Pulse Ox O2 Del Method O2 Flow Rate 97.5 F 98 30 H 137/59 H 91 L Nasal Cannula 3 08/11/25 04:00 08/11/25 05:40 08/11/25 04:00 08/11/25 05:40 08/11/25 04:00 08/11/25 04:00 08/10/25 19:55 FiO2 40 08/11/25 02:13 Narrative Exam General: A/O x 3. on NC. Obese habitus, BMI 37. S/p PEG tube. HEENT: Normocephalic, atraumatic. Neck: Supple, thick neck. Cardiovascular: Regular rate and rhythm. No murmurs, rubs, or gallops. Respiratory: Crackles to all lung zones. no WOB. On BiPAP Abdomen: Soft, nontender, nondistended. PEG tube intact. Objective Labs 08/11/25 04:45 08/11/25 04:45 Labs: Laboratory Results - last 24 hr 08/11/25 04:45 WBC 15.7 H D RBC 3.09 L Hgb 9.1 L Hct 29.8 L MCV 96 MCH 29.4 MCHC 30.5 L RDW Std Deviation 57.5 H Plt Count 185 Neut % (Auto) 88 H Lymph % (Auto) 4 L [place] % (Auto) 3 Eos % (Auto) 1 Baso % (Auto) 0 Neut # (Auto) 13.8 H Lymph # (Auto) 0.7 L [place] # (Auto) 0.5 Eos # (Auto) 0.1 Baso # (Auto) 0.1 Immature Gran # (Auto) 0.55 H Absolute Nucleated RBC 0.14 H Immature Gran % 4 H Nucleated RBC % 1 H Sodium 140 Potassium 4.8 D Chloride 94 L Carbon Dioxide 37.6 H Anion Gap 8 BUN 14 Creatinine 0.8 Estim Creat Clear Calc 56.9 L eGFR > 60 BUN/Creatinine Ratio 18 Glucose 183 H D Calculated Osmolality 284 Calcium 10.3 Corrected Calcium 10.9 H Phosphorus 2.3 L Magnesium 2.2 Total Bilirubin 0.3 AST 16 ALT 21 Alkaline Phosphatase 67 Total Protein 5.5 L Albumin 3.2 L Globulin 2.3 Albumin/Globulin Ratio 1.4 Digoxin 1.1 ABG Interpretation ABG results: 08/01/25 08/01/25 08/02/25 02:15 09:05 12:15 ABG pH 7.25 L 7.30 L ABG pCO2 74 H* 66 H ABG pO2 62 L 84 D ABG HCO3 33 H 32 H ABG O2 Saturation 95 95 ABG Base Excess 4 H 4 H VBG pH 7.27 L VBG pCO2 63 H VBG pO2 Not Performed. VBG Base Excess 0 08/03/25 08/04/25 08/08/25 10:44 12:13 22:13 ABG pH 7.33 L 7.33 L 7.48 H ABG pCO2 64 H 69 H 53 H ABG pO2 88 85 259 H ABG HCO3 34 H 36 H 40 H ABG O2 Saturation 95 95 99 H ABG Base Excess 6 H 8 H 14 H VBG pH VBG pCO2 VBG pO2 VBG Base Excess 08/09/25 08/09/25 08/10/25 01:48 04:15 05:00 ABG pH 7.47 H 7.42 7.41 ABG pCO2 55 H 64 H 63 H ABG pO2 189 H D 97 D 64 L D ABG HCO3 40 H 41 H 40 H ABG O2 Saturation 100 H 100 H 96 ABG Base Excess 15 H 15 H 13 H VBG pH VBG pCO2 VBG pO2 VBG Base Excess Quality Measures Quality Measures VTE prophylaxis Advance care planning discussed with:: patient Assessment & Plan Assessment Current Active Medications: Generic Name Dose Route Start Last Admin Trade Name Freq PRN Reason Stop Dose Admin Acetaminophen 650 mg 08/01/25 05:05 Acetaminophen 325 Mg Tablet PO 08/31/25 05:04 Q6H PRN Fever >100.4 Apixaban 5 mg 08/08/25 21:00 08/10/25 20:43 Apixaban 2.5 Mg Tablet GT 09/07/25 20:59 5 mg BID LISETTE Administration Aspirin 81 mg 08/09/25 09:00 08/10/25 08:59 Aspirin 81 Mg Chew GT 09/08/25 08:59 81 mg DAILY LISETTE Administration Atorvastatin Calcium 10 mg 08/08/25 21:00 08/10/25 20:43 Atorvastatin Calcium 10 Mg Tablet GT 09/07/25 20:59 10 mg HS LISETTE Administration Dextrose 50 ml 08/01/25 05:16 Dextrose 50%-Water Inj 50 Ml Syringe IV 08/31/25 05:15 Q15MIN PRN BG <50 OR BG <70 & pt unresponsive Digoxin 0.125 mg 08/09/25 09:15 08/10/25 09:00 Digoxin 0.125 Mg Tablet GT 09/08/25 09:14 0.125 mg QDAY LISETTE Administration Diltiazem HCl 30 mg 08/10/25 21:00 08/11/25 05:40 Diltiazem 30 Mg Tablet GT 09/09/25 20:59 30 mg QID LISETTE Administration Glucagon 1 mg 08/01/25 05:16 Glucagon Inj 1 Mg Vial IM Q15MIN PRN BG <70, and no IV access Dexmedetomidine/Sodium Chloride 400 mcg in 100 mls @ 5.325 mls/hr 08/08/25 15:27 08/09/25 08:00 Precedex Ivpb IV 09/07/25 15:26 0 mcg/kg/hr .[id number] PRN 0 mls/hr Per PROTOCOL Titration Protocol 0.2 MCG/KG/HR Sodium Phosphate 15 mmol/ 255 mls @ 62.5 mls/hr 08/11/25 08:00 Sodium Chloride IV 08/11/25 12:04 X1 ONE Insulin Degludec 15 unit 08/10/25 21:00 08/10/25 20:44 Insulin Degludec 5 Unit/0.05 Ml (Per 5 Units) SC 09/09/25 20:59 15 unit HS LISETTE Administration Insulin Human Lispro 0 unit 08/08/25 12:00 08/11/25 05:47 Insulin Lispro (Admelog) 1 Unit/0.01 Ml Unit SC 09/07/25 11:59 Not Given Q6HR LISETTE Protocol Ipratropium [place] 0.5 mg 08/02/25 17:04 08/09/25 18:51 Ipratropium Rt 0.5 Mg/ 2.5 Ml Nebu INH 09/01/25 17:03 0.5 mg Q6HR PRN Administration SHORTNESS OF BREATH Levalbuterol HCl 0.63 mg 08/02/25 17:04 08/09/25 18:51 Levalbuterol Rt 0.63 Mg/3 Ml Nebu INH 09/01/25 17:03 0.63 mg Q6H PRN Administration WHEEZING Levothyroxine Sodium 100 mcg 08/09/25 06:00 08/11/25 05:40 Levothyroxine Sodium 100 Mcg Tablet GT 09/08/25 05:59 100 mcg ACBR LISETTE Administration Pantoprazole Sodium 40 mg 08/09/25 18:30 08/10/25 08:58 Pantoprazole Inj 40 Mg Vial IVP 09/08/25 18:29 40 mg QDAY LISETTE Administration Polyethylene Glycol 17 gm 08/09/25 09:00 08/10/25 09:01 Polyethylene Glycol 17 Gm Packet GT 09/08/25 08:59 17 gm DAILY LISETTE Administration Pramipexole Dihydrochloride 1 mg 08/09/25 21:00 08/10/25 20:43 Pramipexole 0.25 Mg Tablet GT 09/08/25 20:59 1 mg HS LISETTE Administration Prednisone 15 mg 08/10/25 10:30 08/10/25 11:39 Prednisone 5 Mg Tablet PO 08/24/25 10:17 15 mg QDAY LISETTE Administration Sennosides 1 tab 08/09/25 09:00 08/10/25 09:01 Senna Tablet GT 09/08/25 08:59 1 tab QDAY LISETTE Administration Protocol Sodium Chloride 3 ml 08/01/25 02:11 Sodium Chloride Rt Sravani 0.9% 3 Ml Nebu INH 08/31/25 02:10 PRN PRN SOLN Venlafaxine HCl 150 mg 08/01/25 09:00 08/10/25 08:59 Venlafaxine Xr 37.5 Mg Capcr PO 08/31/25 08:59 150 mg DAILY LISETTE Administration Plan 89-year-old female with chronic ILD/pulmonary fibrosis with chronic CO2 retention on home BiPAP, HFpEF, IDDM, and esophageal stenosis, admitted for acute on chronic hypoxic hypercapnic respiratory failure secondary to aspiration pneumonia, complicated by sepsis from Pseudomonas UTI, new-onset atrial fibrillation with RVR, severe dysphagia requiring NPO status and NG tube, and limited respiratory reserve with inability to tolerate sustained wean from BiPAP. #Esophageal stenosis s/p dilation (08/08/25) #S/p PEG tube placement (08/08/25) - s/p EGD with dilation for dysphagia secondary to esophageal stenosis on 02/08/2025. - GI recommended checking TSH and T4 to make sure patient is on adequate supplement as hypothyroidism can cause dysphagia. Both within normal range. - Persistent dysphagia is a major contributor to recurrent aspiration and respiratory failure. - 08/08/25: esophageal dilation + PEG tube placement. Plan: * Extensive [id number] discussion held with patient?s nephew, Jg, regarding risks, benefits, and alternatives to intervention, including hospice and palliative care. * Family understands the high risk of respiratory failure and prolonged intubation. * Family elects to proceed with EGD under monitored anesthesia care (MAC) despite elevated procedural risk. * Ongoing aspiration is suspected to be driven by severe dysphagia from esophageal stenosis, contributing to recurrent respiratory decompensation. * GI discussed that definitive options are limited to esophageal dilation or PEG tube placement, both of which require intubation and sedation. * Pulmonology has expressed concern that given the patient?s chronic pulmonary disease and BiPAP dependence, safe extubation following the procedure may not be possible. * Plan for EGD w/ PEG tube 08/08/[address] Peters under [place], may require ICU stay in cannot be safely extubated. --> downgraded to Medsurg 08/10/25. * Tube feed initated. Goal rate 65ml/hr. Water flush 30ml/hr x 22hrs. TF to be hold for one hour before and after levothyroxine. #Acute on chronic hypoxic hypercapnic respiratory failure, likely secondary to #Aspiration pneumonia #Pulmonary arterial hypertension #Interstitial lung disease #Pulmonary fibrosis - Known history of chronic interstitial lung disease and pulmonary fibrosis, contributing to chronic respiratory failure, chronic CO2 retention, and the need for BiPAP and home oxygen (2L). - Current acute exacerbation appears to be triggered by aspiration, likely exacerbated by recent intensified coughing after meals. The patient had worsening respiratory distress following dinner, with increasing cough and suspected aspiration of food. - Initial lactate was elevated at 2.4 --> 2.7 --> 2.3. Given the hypoxia and respiratory failure, the lactic acidosis may be due to tissue hypoperfusion and/or poor oxygenation. - Initial ABG showed pH 7.25, pCO2 74, pO2 62, bicarb 33, represents respiratory acidosis. - CXR 08/01: extensive bilateral pneumonia, prominent vascular congestion. - Patient is currently on a prednisone taper for ILD. - Patient failed ST swallow screen. - EGD and esophageal dilation on 02/08/25 for esophageal stenosis. - ABG 08/03: pH 7.33, pCO2 64, HCO3 34. Plan: * Pulmonology consulted, patient deemed high risk for intubation and prolonged ventilator dependence. * Continue strict NPO status and aspiration precautions. * Switched DuoNebs to Levalbuterol as patient is tachycardic. * Continuous pulse oximetry to closely monitor oxygen saturation. * Aspiration precautions. * Switched Prednisone 20mg PO QD to Methylprednisolone 16 mg IV QD as patient is NPO. Given the patient's history of interstitial lung disease, the steroid taper should proceed as planned, maintaining the current dose for 1 more week before reassessment. * Monitor for signs of worsening pneumonia or other complications. * Pulmonology has evaluated the patient and expressed concern that intubation for procedures may result in prolonged mechanical ventilation with high risk of inability to safely extubate, given chronic lung disease and BiPAP dependence. * Trial oxymask today (08/06) however patient desaturated after 1.5 hour, resumed BIPAP. * On Nasal 08/10/25 s/p extubation. * On BiPAP 08/11/25 when napping. #Sepsis #Staphylococcus epidermidis bacteremia #Pseudomonas aeruginosa UTI #Lactic acidosis #Leukocytosis - Etiology: Staphylococcus epidermidis bacteremia with suspected urinary tract infection as the source? - Lactate: 2.4 --> 2.7 --> 2.3. - WBC 23.2 on admission. - Blood culture 08/01: 2/2 GPC bacteremia. Staphylococcus epidermidis. - UA: 1+ protein, 44 RBC, 76 WBC, amorphous crystals, budding yeast, leukocyte esterase positive. Previous culture was positive for pansensitive Klebsiella Ozaenae. - Urine culture 08/01: Pseudomonas aeruginosa. Sensitive to Zosyn. - CXR: extensive bilateral pneumonia, prominent vascular congestion. - Fluids: 30 mL/kg, 2L of LR given in ED. - Blood culture 08/03: Yeast. Received one dose of Micafungin 50 mg. - Blood culture 08/05: NGTD Plan: * Infectious Disease consulted, recommend continue Zosyn at this time vs transition to Levofloxacin. * Stop Vancomycin * No further antifungal therapy recommended after single dose of micafungin. * Zosyn 2.25 g every 8 hours for UTI (08/01-08/08). * Oxygen / Ventilation: BiPAP. * Renal: strict I&O, avoid nephrotoxins. * CBC/BMP daily or more frequent if unstable. * Monitor organ dysfunction resolution or progression. * Continue to monitor repeat blood cultures and clinical status. #New onset Atrial fibrillation with RVR - EKG on 08/02 showed irregularly irregular rhythm rate 155 with RBBB. - No history of atrial fibrillation. - CHADSVASc score 6. - HASBLEED score 3. High Risk of major bleeding. - Was given diltiazem IV 20 mg x 1 and was started on diltiazem gtt. 5 mg/h which was increased to 10 mg/h as patient continued to remain tachycardic. - Three doses of digoxin (0.25 mg x2, 0.125 mg x1) given on 08/03 for tachycardia. Plan: * Cardiology consulted - appreciate recs. * ASA 81mg GT QD * Eliquis 5mg GT BID * Diltiazem 60mg GT QID * IV digoxin 0.125 GT * Check digoxin level 08/10 --> 1.2 * Keep potassium greater than 4 and magnesium greater than 2 at all times. #Hypernatremia #Hyperkalemia (resolved) - On admission, sodium 148 and potassium 5.2. - Likely secondary to decreased oral intake, lack of insulin, or hyperglycemia. - Patient received fluids in the ED and will start receiving insulin sliding scale. - Sodium continues to uptrend, peak at 153 on 08/04. - D5W given 08/04, sodium 153 --> 151. Plan: * NG tube placed. * Continue free water flushes at 250 cc per four hours for free water deficit of 1.9L. * Trend sodium levels Q6H. #NSTEMI - Likely secondary to demand ischemia. - Troponin of 0.051 --> 0.030. - EKG showed sinus tachycardia with a rate of 131 QTc 473, widened upright QRS in V1 may represent right bundle branch block, No acute ST segment changes in other leads Plan: * Continue to monitor for chest pain. #Insulin-dependent type 2 diabetes - Per caregiver the patient is on 35 units of Lantus every morning, sliding scale, and 8 units regular 3 times daily with meals. - Hemoglobin A1c 2 months ago was 6.4. - Glucose on admission was 241. Plan: * Insulin degludec 15 units QD. * Insulin sliding scale. * Carb consistent diet once patient passes swallow eval. #Chronic normocytic anemia - Hemoglobin 11.8, MCV 101. - Likely secondary to anemia of chronic disease secondary to history of breast cancer and interstitial lung disease. - No suspicion for active bleed at this time. Plan: * No direct intervention at this time. * Monitor CBC. #Chronic diastolic CHF, HFpEF - Echo from 12/2024 showed EF 65%. Trace mitral and trace tricuspid regurgitation, No wall motion abnormalities noted. - BNP 193. - CXR (08/02/2025): extensive bilateral lung opacity, Mild enlargement cardiac contour with significant vascular congestion on physical exam 1+ edema noted bilateral hips. - Patient's underlying respiratory status and lieu of ILD flare/aspiration pneumonia. - Echo 08/02/25: ejection fraction is 60-65%. Plan: * Strict I and Os. * Fluid restriction 1500ml. * Patient is not on diuretics outpatient because of chronic hypercapnia and diuresis can cause contraction alkalosis causing further respiratory decompensation. * Hold diuresis for now as patient does not seemed to be fluid overloaded. #Hyperlipidemia Plan: * Continue atorvastatin 10 mg GT #Hypothyroidism - Home medication: Levothyroxine 100 mcg daily. Plan: * Levothyroxine 100 mcg GT * TF to be hold for one hour before and after levothyroxine. #Chronic constipation - Per caregiver, the patient's last bowel movement was 07/30/2025. - Last bowel movement 08/03. - KUB 08/04: large amounts of stool throughout the colon. Plan: * Daily senna and MiraLAX. * Water edema ordered. #Depression Plan: * Hold home Venlafaxine 150 mg XR p.o. daily #Parkinson Plan: * Hold home pramipexole 1 mg GT Health Maintenance Disposition: tele, PEG tube placement DVT prophylaxis: Eliquis GI prophylaxis: Pantoprazole 40 mg IV daily Diet: Cardiac diet, dysphagia Queen: In place Lines: Peripheral IV, PEG tube CODE STATUS: DNR/DNI Case discussed with my senior resident Dr. Eller Case discussed with my attending Dr. Kelvin Combs, PGY 1
[2025-08-11] MEDS: POLYETHYLENE GLYCOL 17 GM PACKET GT (09:45)
[2025-08-11] MEDS: APIXABAN 2.5 MG TABLET 5 MG GT ×2 (09:45→20:49)
[2025-08-11] MEDS: DIGOXIN 0.125 MG TABLET GT (09:45)
[2025-08-11] MEDS: VENLAFAXINE XR 37.5 MG CAPCR 150 MG PO (09:45)
[2025-08-11] MEDS: ASPIRIN 81 MG CHEW GT (09:45)
[2025-08-11] MEDS: SOD PHOS ADDITIVE 15 MMOL in SODIUM CHLORIDE 0.9% 250 ML 250 ML 62.5 MMOL IV (09:46)
[2025-08-11] MEDS: DILTIAZEM 30 MG TABLET 60 MG GT ×3 (12:41→20:48)
--- NOTE | 2025-08-11 12:46 | PC.SS ---
Confirmed with home care provider, Lissy Cantor ; preferred home health agency is [facility]. Patient possesses a BI-PAP for home use.
--- NOTE | 2025-08-11 12:47 | PC.SS ---
emergency services professional to contact patient's primary ict support technicians, Lissy Barton ; upon patient's medical clearance for discharge.
--- NOTE | 2025-08-11 14:31 | PC.SS ---
Rounding Note: Plan is to increase feeding rate. Patient in possession of PEG tube.
--- NOTE | 2025-08-11 16:21 | PD.IMPROG ---
Documentation for date of: 08/11/25 Subjective Subjective Interval history: Patient status post PEG placement Still using BiPAP at nighttime Exam Vital Signs Temp Pulse Resp BP Pulse Ox O2 Del Method O2 Flow Rate 98.2 F 111 H 16 157/53 H 97 Nasal Cannula 3 08/11/25 16:00 08/11/25 16:02 08/11/25 16:00 08/11/25 16:00 08/11/25 16:00 08/11/25 16:00 08/11/25 12:00 FiO2 40 08/11/25 16:00 Objective Labs 08/11/25 04:45 08/11/25 04:45 Labs: Laboratory Results - last 24 hr 08/11/25 04:45 WBC 15.7 H D RBC 3.09 L Hgb 9.1 L Hct 29.8 L MCV 96 MCH 29.4 MCHC 30.5 L RDW Std Deviation 57.5 H Plt Count 185 Neut % (Auto) 88 H Lymph % (Auto) 4 L [place] % (Auto) 3 Eos % (Auto) 1 Baso % (Auto) 0 Neut # (Auto) 13.8 H Lymph # (Auto) 0.7 L [place] # (Auto) 0.5 Eos # (Auto) 0.1 Baso # (Auto) 0.1 Immature Gran # (Auto) 0.55 H Absolute Nucleated RBC 0.14 H Immature Gran % 4 H Nucleated RBC % 1 H Sodium 140 Potassium 4.8 D Chloride 94 L Carbon Dioxide 37.6 H Anion Gap 8 BUN 14 Creatinine 0.8 Estim Creat Clear Calc 56.9 L eGFR > 60 BUN/Creatinine Ratio 18 Glucose 183 H D Calculated Osmolality 284 Calcium 10.3 Corrected Calcium 10.9 H Phosphorus 2.3 L Magnesium 2.2 Total Bilirubin 0.3 AST 16 ALT 21 Alkaline Phosphatase 67 Total Protein 5.5 L Albumin 3.2 L Globulin 2.3 Albumin/Globulin Ratio 1.4 Digoxin 1.1 Impressions Impression: Failure to thrive Dysphagia PEG placement continue tube feeding currently at 40 cc an hour ABG Interpretation ABG results: 08/01/25 08/01/25 08/02/25 02:15 09:05 12:15 ABG pH 7.25 L 7.30 L ABG pCO2 74 H* 66 H ABG pO2 62 L 84 D ABG HCO3 33 H 32 H ABG O2 Saturation 95 95 ABG Base Excess 4 H 4 H VBG pH 7.27 L VBG pCO2 63 H VBG pO2 Not Performed. VBG Base Excess 0 08/03/25 08/04/25 08/08/25 10:44 12:13 22:13 ABG pH 7.33 L 7.33 L 7.48 H ABG pCO2 64 H 69 H 53 H ABG pO2 88 85 259 H ABG HCO3 34 H 36 H 40 H ABG O2 Saturation 95 95 99 H ABG Base Excess 6 H 8 H 14 H VBG pH VBG pCO2 VBG pO2 VBG Base Excess 08/09/25 08/09/25 08/10/25 01:48 04:15 05:00 ABG pH 7.47 H 7.42 7.41 ABG pCO2 55 H 64 H 63 H ABG pO2 189 H D 97 D 64 L D ABG HCO3 40 H 41 H 40 H ABG O2 Saturation 100 H 100 H 96 ABG Base Excess 15 H 15 H 13 H VBG pH VBG pCO2 VBG pO2 VBG Base Excess Assessment & Plan A&P Narrative dnr status seems to be at baseline wbc may be steroid related multiple listed allergies. prior id eval in may noted. abn ua in an 89 y/o lady with pos cx noted. not clear if she followed advice for vaginal estrogen in may. will review Friday again ild hx noted with hypercapnea. confounding things a bit. is in house frequently on steroids. at most low grade temps soon after arrival. wbc may be related to steroids but is done popularly on a daily basis. nasal mrsa neg. so mrsa an unlikely player in pneumonia bc with coag neg and repeats appear to be neg for any staph. line placed rt chest approx 08/03 so is fast for yeast. echo neg so stopped vanco and left on micafungin and zosyn and will check in again Friday pm. no objection to restarting micafungin but ok to leave her off as well no cough noted. no notable fever but is on steriods. best fever reducers on the planet but have other se's Time Spent With Patient Time: Total time spent is greater than 50% in coordination of care (as documented) at patient's floor/unit and/or counseling patient:
[2025-08-11] MEDS: INSULIN DEGLUDEC 5 UNIT/0.05 ML (PER 5 UNITS) 15 UNIT SC (20:47)
[2025-08-11] MEDS: VENLAFAXINE 37.5 MG TABLET 150 MG GT (20:48)
[2025-08-11] MEDS: ATORVASTATIN CALCIUM 10 MG TABLET GT (20:49)
[2025-08-11] MEDS: PRAMIPEXOLE 0.25 MG TABLET 1 MG GT (20:49)
[2025-08-12] VITALS (18 sets, daily range): BP systolic 121–153; BP diastolic 47–96; PULSE 89–135; RESP 10–37; TEMP 36.6–37.2; O2SAT 90–100; BMI 34.7
[2025-08-12] MEDS: DILTIAZEM 30 MG TABLET 60 MG GT ×2 (05:12→12:04)
[2025-08-12] MEDS: LEVOTHYROXINE SODIUM 100 MCG TABLET GT (05:13)
[2025-08-12] MEDS: INSULIN LISPRO (AdmeLOG) 1 UNIT/0.01 ML UNIT SC ×3 (05:19→16:57)
[2025-08-12 06:10] LABS: Basophils # (Auto) 0.1 Thou/mm3 (0.0-0.2); Basophils % (Auto) 1 % (0-2.5); Eosinophils # (Auto) 0.2 Thou/mm3 (0.0-0.5); Eosinophils % (Auto) 1 % (0-10); Lymphocytes % (Auto) 3 % (10-50); Nucleated Red Blood Cell % 0 /100 WBC (0)
[2025-08-12 06:53] LABS: Alanine Aminotransferase 19 U/L (10-49); Albumin, Serum 3.0 gm/dL (3.4-4.8); Albumin/Globulin Ratio 1.3 (1.2-2.2); Alkaline Phosphatase 80 U/L (46-116); Anion Gap 10 (7-16); Aspartate Amino Transferase 14 U/L (0-34); BUN/Creatinine Ratio 20 Ratio (12-20); Bilirubin,Total 0.3 mg/dL (0.3-1.2); Blood Urea Nitrogen 16 mg/dL (9-23); Calcium 10.3 mg/dL (8.3-10.6); Calcium (Corrected) 11.1 mg/dL (8.5-10.1); Carbon Dioxide 39.3 mMol/L (20.0-31.0); Chloride 93 mMol/L (98-107); Creatinine (Component) 0.8 mg/dL (0.6-1.3); Estimated Creatinine Clearance 56.9 mL/min (>60); Globulin 2.3 gm/dL (2.3-3.5); Glucose 219 mg/dL (74-106); Magnesium 1.9 mg/dL (1.6-2.6); Osmolality,Calculated 291 (275-295); Phosphorous 2.5 mg/dL (2.4-5.1); Potassium 5.1 mMol/L (3.4-5.1); Sodium 142 mMol/L (136-145); Total Protein 5.3 gm/dL (5.7-8.2); eGFR > 60 See Note
[2025-08-12 07:57] LABS: Hematocrit 29.7 % (36.0-46.0); Immature Granulocytes Auto 0.70 Thou/mm3 (0.00-0.00); Lymphocytes # (Auto) 0.7 Thou/mm3 (1.0-4.8); Mean Corpuscular HGB Conc 29.6 g/dl (31.0-37.0); Mean Corpuscular Hemoglobin 28.7 pg (25.0-35.0); Mean Corpuscular Volume 97 fL (80-100); Monocytes # (Auto) 0.9 Thou/mm3 (0.0-0.8); Monocytes % (Auto) 4 % (0-12); Neutrophils # (Auto) 22.7 Thou/mm3 (1.8-7.7); Neutrophils % (Auto) 90 % (37-80); Nucleated Red Blood Cell # 0.06 Thou/mm3 (0.00-0.00); RDW Standard Deviation 59.7 fL (36.4-46.3); Red Blood Count 3.07 Miln/mm3 (4.00-5.20); White Blood Count 25.2 Thou/mm3 (3.6-11.0)
--- NOTE | 2025-08-12 08:00 | ESPR_ITS ---
Documentation for date of: 08/12/25 Subjective Subjective Interval history: Ms Adelaida Coffman is 89yF with PMH of interstitial lung disease, pulmondary fibrosis, chronic CO2 retention on 2L home oxygen and BiPAP, HFpEF, bedbound, recurrent UTIs, hypothyrodism, right breast cancer status postlumpectomy, insulin-dependent type 2 diabetes, GERD, depression, and chronic back pain, presented to the ED on 08/01/2025 due to hypoxemia. The patient started to cough following lunch the day before admission (07/31) and worsened while eating her dinner on the same day. The caregiver noted the patient was expectorating phlegm without any food particles, and suspected possible aspiration. Per EMS note, patient's oxygen level was in 30s and at 68% on 2L nasal cannula and to mid 80s after albuterol treatment. Patient was admitted for acute on chronic hypoxic hypercapnic respiratory failure and aspiration pneumonia. Cardiology was consulted for management of new onset Afib on EKG. ED course: Vitals: Temp 99.6F, NV: 128, RR:28, BP: 127/74, O2sat:95% On Oxy mask 15L Labs: WBC 23.2, Hgb:11.8, ABG pCO2:74, ABG pH:7.25, Na:148, K:5.2, HCO2: 33.1, Cr:1.2, eGFR:43, Glucose: 241, HbA1c: 6.6, Lactic acid:2.4 (increased to 18.0 in 3hrs), Ca 9.8 (decreased to 6.4 in 3hrs), Troponin:0.051, BNP: 193 CXR (08/01/2025): Extensive bilateral pneumonia, consider associated mild heart failure In ED, Patient received 125 mg IV push methylprednisolone, Zosyn, treatment with albuterol, ipratropium, a dose of vancomycin, 2.5 L of L Medical history: As stated above Surgical history: Right breast lumpectomy, Cholesectomy Allergies: Cefuroxime, Topical zinc, Iodine contrast, Sulfa, Influenza virus, Cefuroxime Medications: Vitamin C 500 mg twice a day, Aspirin 81 mg daily, Calcium vitamin D supplement, Estrogen vaginal cream, [place] 5-3 25 p.o. 3 times daily as needed for pain, Hydroxyzine 25 mg tablet every 6 hours as needed for anxiety, Levothyroxine 100 mcg daily, Metformin 500 mg daily, 35 insulin degludec every morning, 8 units 3 times daily with meals, plus sliding scale, Methenamine 1 g p.o. twice daily, Metoprolol succinate 25 mg daily, Omeprazole 40 mg daily, Pramipexole 1 mg daily, Prednisone 20 mg daily, taper currently, Rosuvastatin 5 mg nightly, Venlafaxine 150 mg XR daily Family history: Noncontributory Social history: Denies smoking cigarettes, drinking alcohol or using other illicit drugs, Lives at home, 24-hour caregiver support 08/02/2025: Labs reviewed and patient examined at the bedside. Recommend Diltiazem drip 10mg/hr and heparin drip if no contraindication to anticoagulation. Also recommend stopping metoprolol due to history of ILD and to avoid bronchospasm. ECHO is pending. Recommend IV lasix 20mg x1 after examining her kidney function and fluid status tomorrow. Upon examination, patient complains of SOB. but denies palpation, chest pain, nausea or vomiting. 08/03/2025: No Overnight events. Labs reviewed and patient examined at the bedside. This morning, patient was tachycardc (HR 120s) with low BP 109/86. Patient was given IV Digoxin 0.25mg x1 and 0.125mg x1 this morning. Patient was still tachycardic this afternoon, so another IV Digoxin 0.25mg x1 was given. Will assess her BP and HR tomorrow. Recommend increasing Ditiazem drip 10mg/hr to 15mg/hr tomorrow if patient is still tachycardic as long as BP tolerates. Patient's sodium increased from 149 to 152, likely from dehydration. No need for diuresis for now. Recommend putting NG tube and give water flushes for hypernatremia, and change heparin drip to oral eliquis and IV digoxin to PO digoxin. Denies chest pain, palpation, N/V, fevers or chills. 08/04/2025: Labs reviewed and patient examined at the bedside. Morning tele monitoring showed Afib, rate controlled. Patient will continue on Diltiazem drip 10mg/hr and IV digoxin 0.125mg qd. Pt's Na level was 153. Started on D5W 80ml/hr, now downtrending to 151. Denies chest pain, palpation, abdominal pain, N/V, fevers or chills. 08/05/2025: No Overnight events. Labs reviewed and patient examined at the bedside. Continue Diltiazem drip 10mg/hr and IV digoxin 0.125mg qd. Sodium level today was 151. Denies chest pain, palpation, SOB, abdominal pain, N/V, fevers or chills. 08/06/2025: Patient seen and examined at bedside. Currently no complaints, looks euvolemic no indication for diuresis for now. Patient has NG tube intact getting free water flushes, patient has been n.p.o. since last 5 days has not been fed. Recommend following up with dietitian/GI regarding feeding. Otherwise heart rate well-controlled on diltiazem 10 mg/h and digoxin 0.125 mg every day. Patient on heparin drip. Transition to diltiazem 240 mg daily and digoxin 0.125 mg orally when able. Steroids being continued per pulmonology recommendations. 08/07/2025: Patient seen and examined at bedside. Telemetry reviewed. Currently no complaints, looks euvolemic no indication for diuresis for now. Patient has NG tube intact getting free water flushes, patient has been n.p.o. since last 6 days has not been fed. Plan for EGD with PEG tube today for fci nutritional support under general anesthesia. Otherwise heart rate well-controlled on diltiazem 10 mg/h and digoxin 0.125 mg every day. Patient on heparin drip. Transition to diltiazem 240 mg daily and digoxin 0.125 mg orally when able. 08/08/2025: Patient s/p PEG tube placement due to dysphagia. Procedure needed to be done in ICU as she required intubation. Continue with Diltiazem drip for now. Change to Oral immediate release cardizem 60mg qid, Digoxin 0.125mg po qd, and eliquis 5mg po bid tonight. Discontinue heparin drip. Continue with Aspirin and Atorvastatin. Check for Digoxin level on 08/10. 08/09/2025: This morning, patient's HR was in 50s, so Cardizem and Digoxin was not given. Currently HR is going up. Recommend starting on Cadizem 60mg po qid if HR increases to appropriate level. Continue eliquis, and aspirin. Patient looked slightly fluid overloaded, so was given IV furosemide 20mg x1. Check for Digoxin level on 08/10. Will continue to follow. 08/10/2025: Patient's BP 159/87 with HR 101. Currently on Digoxin 0.125mg gt qd. Started on Cardizem 30mg gt qid. Ordered Digoxin level. Will continue eliquis and aspirin. Patient denies any chest pain, palpitation, N/V, headaches. 08/11/2025: Patient is status post PEG tube placement. This morning her BP was 153/54 with pulse rate 100 with 94% O2 saturation on BiPAP. Increased Cardizem from 30 mg to 60 mg GT 4 times daily. Continue digoxin 0.125 GT daily. Digoxin level was 1.1 today. Continue aspirin 81 mg GT daily and Eliquis 5 mg GT twice daily and atorvastatin 10 mg GT at bedtime. On examination, patient endorsed shortness of breath, but denied any chest pain, palpitations, headaches, nausea, or vomiting. Will continue to monitor. 08/12/2025: Yesterday, despite increasing cardizem to 30 to 60mg GT qid, patient's HR remained high ranging between 110 to 120. BP also remained around 140/90 Today, Cardizem is increased from 60 to 90mg GT qid. Will continue Digoxin 0.125mg GT qd. Continue Eliquis 5mg GT bid, Aspirin 81mg GT qd, and atorvastatin 10 mg GT at bedtime. Exam Vital Signs Temp Pulse Resp BP Pulse Ox O2 Del Method O2 Flow Rate 97.8 F 118 H 31 H 132/90 H 94 L Nasal Cannula 4 08/12/25 12:08/12/25 16:00 08/12/25 12:08/12/25 12:04 08/12/25 12:00 08/12/25 12:08/12/25 12:00 FiO2 50 08/12/25 12:00 Narrative Exam General: Chronically ill-appearing woman, obese habitus, on bipap HEENT: Normocephalic, atraumatic. Heart:normal S1 and S2, no murmurs. Regular rate and rhythm. Lungs: Mild wheezing bilateral. Abdomen: Obese, firm, distended, tender. No guarding or rebound tenderness. Neurologic: Alert and oriented x3, no gross neurological deficit, and patient able to move all 4 extremities. Extremities: Trace lower extremity edema, clubbing or cyanosis. No joint deformity. Skin: Warm and dry without rashes. : Queen in place, draining yellow urine. Objective Labs 08/12/25 04:40 08/12/25 04:40 Labs: Laboratory Results - last 24 hr 08/12/25 04:40 WBC 25.2 H D RBC 3.07 L Hgb 8.8 L Hct 29.7 L MCV 97 MCH 28.7 MCHC 29.6 L RDW Std Deviation 59.7 H Plt Count 195 Neut % (Auto) 90 H Lymph % (Auto) 3 L [place] % (Auto) 4 Eos % (Auto) 1 Baso % (Auto) 1 Neut # (Auto) 22.7 H Lymph # (Auto) 0.7 L [place] # (Auto) 0.9 H Eos # (Auto) 0.2 Baso # (Auto) 0.1 Immature Gran # (Auto) 0.70 H Absolute Nucleated RBC 0.06 H Immature Gran % 3 H Nucleated RBC % 0 Sodium 142 Potassium 5.1 Chloride 93 L Carbon Dioxide 39.3 H Anion Gap 10 BUN 16 Creatinine 0.8 Estim Creat Clear Calc 56.9 L eGFR > 60 BUN/Creatinine Ratio 20 Glucose 219 H Calculated Osmolality 291 Calcium 10.3 Corrected Calcium 11.1 H Phosphorus 2.5 Magnesium 1.9 Total Bilirubin 0.3 AST 14 ALT 19 Alkaline Phosphatase 80 Total Protein 5.3 L Albumin 3.0 L Globulin 2.3 Albumin/Globulin Ratio 1.3 ABG Interpretation ABG results: 08/01/25 08/01/25 08/02/25 02:15 09:05 12:15 ABG pH 7.25 L 7.30 L ABG pCO2 74 H* 66 H ABG pO2 62 L 84 D ABG HCO3 33 H 32 H ABG O2 Saturation 95 95 ABG Base Excess 4 H 4 H VBG pH 7.27 L VBG pCO2 63 H VBG pO2 Not Performed. VBG Base Excess 0 08/03/25 08/04/25 08/08/25 10:44 12:13 22:13 ABG pH 7.33 L 7.33 L 7.48 H ABG pCO2 64 H 69 H 53 H ABG pO2 88 85 259 H ABG HCO3 34 H 36 H 40 H ABG O2 Saturation 95 95 99 H ABG Base Excess 6 H 8 H 14 H VBG pH VBG pCO2 VBG pO2 VBG Base Excess 08/09/25 08/09/25 08/10/25 01:48 04:15 05:00 ABG pH 7.47 H 7.42 7.41 ABG pCO2 55 H 64 H 63 H ABG pO2 189 H D 97 D 64 L D ABG HCO3 40 H 41 H 40 H ABG O2 Saturation 100 H 100 H 96 ABG Base Excess 15 H 15 H 13 H VBG pH VBG pCO2 VBG pO2 VBG Base Excess Quality Measures Quality Measures VTE prophylaxis Advance care planning discussed with:: patient and other Assessment & Plan Assessment Current Active Medications: Generic Name Dose Route Start Last Admin Trade Name Freq PRN Reason Stop Dose Admin Acetaminophen 650 mg 08/01/25 05:05 Acetaminophen 325 Mg Tablet PO 08/31/25 05:04 Q6H PRN Fever >100.4 Apixaban 5 mg 08/08/25 21:00 08/12/25 10:17 Apixaban 2.5 Mg Tablet GT 09/07/25 20:59 5 mg BID LISETTE Administration Aspirin 81 mg 08/09/25 09:00 08/12/25 10:16 Aspirin 81 Mg Chew GT 09/08/25 08:59 81 mg DAILY LISETTE Administration Atorvastatin Calcium 10 mg 08/08/25 21:00 08/11/25 20:49 Atorvastatin Calcium 10 Mg Tablet GT 09/07/25 20:59 10 mg HS LISETTE Administration Dextrose 50 ml 08/01/25 05:16 Dextrose 50%-Water Inj 50 Ml Syringe IV 08/31/25 05:15 Q15MIN PRN BG <50 OR BG <70 & pt unresponsive Digoxin 0.125 mg 08/09/25 09:15 08/12/25 10:17 Digoxin 0.125 Mg Tablet GT 09/08/25 09:14 0.125 mg QDAY LISETTE Administration Diltiazem HCl 90 mg 08/12/25 17:00 Diltiazem 30 Mg Tablet GT 09/11/25 16:59 QID LISETTE Glucagon 1 mg 08/01/25 05:16 Glucagon Inj 1 Mg Vial IM Q15MIN PRN BG <70, and no IV access Dexmedetomidine/Sodium Chloride 400 mcg in 100 mls @ 5.325 mls/hr 08/08/25 15:27 08/09/25 08:00 Precedex Ivpb IV 09/07/25 15:26 0 mcg/kg/hr .[id number] PRN 0 mls/hr Per PROTOCOL Titration Protocol 0.2 MCG/KG/HR Insulin Degludec 20 unit 08/12/25 21:00 Insulin Degludec 5 Unit/0.05 Ml (Per 5 Units) SC 09/11/25 20:59 HS LISETTE Insulin Human Lispro 0 unit 08/08/25 12:00 08/12/25 11:23 Insulin Lispro (Admelog) 1 Unit/0.01 Ml Unit SC 09/07/25 11:59 3 unit Q6HR LISETTE Administration Protocol Ipratropium Effort 0.5 mg 08/02/25 17:04 08/09/25 18:51 Ipratropium Rt 0.5 Mg/ 2.5 Ml Nebu INH 09/01/25 17:03 0.5 mg Q6HR PRN Administration SHORTNESS OF BREATH Protocol Levalbuterol HCl 0.63 mg 08/02/25 17:04 08/09/25 18:51 Levalbuterol Rt 0.63 Mg/3 Ml Nebu INH 09/01/25 17:03 0.63 mg Q6H PRN Administration WHEEZING Protocol Levothyroxine Sodium 100 mcg 08/09/25 06:00 08/12/25 05:13 Levothyroxine Sodium 100 Mcg Tablet GT 09/08/25 05:59 100 mcg ACBR LISETTE Administration Pantoprazole Sodium 40 mg 08/12/25 09:00 08/12/25 10:17 Pantoprazole 40 Mg Tablet PO 09/11/25 08:59 40 mg QDAY LISETTE Administration Polyethylene Glycol 17 gm 08/09/25 09:00 08/12/25 10:16 Polyethylene Glycol 17 Gm Packet GT 09/08/25 08:59 17 gm DAILY LISETTE Administration Pramipexole Dihydrochloride 1 mg 08/09/25 21:00 08/11/25 20:49 Pramipexole 0.25 Mg Tablet GT 09/08/25 20:59 1 mg HS LISETTE Administration Prednisone 15 mg 08/12/25 09:00 08/12/25 10:16 Prednisone 5 Mg Tablet GT 09/11/25 08:59 15 mg QDAY LISETTE Administration Sennosides 1 tab 08/09/25 09:00 08/12/25 10:17 Senna Tablet GT 09/08/25 08:59 1 tab QDAY LISETTE Administration Protocol Sodium Chloride 3 ml 08/01/25 02:11 Sodium Chloride Rt Sravani 0.9% 3 Ml Nebu INH 08/31/25 02:10 PRN PRN SOLN Venlafaxine HCl 150 mg 08/11/25 21:00 08/12/25 10:17 Venlafaxine 37.5 Mg Tablet GT 09/10/25 20:59 150 mg BID LISETTE Administration Plan Ms. Coffman is a 89-year-old female with past medical history of ILD/pulmonary fibrosis/chronic hypersensitivity pneumonitis with chronic respiratory failure on 2 L home oxygen and BiPAP currently on steroid taper, pulmonary arterial hypertension, heart failure with preserved ejection fraction, EF 60-65%, chronically bedbound, recurrent MDR UTIs, hypothyroidism, right breast cancer status postlumpectomy with lymph node dissection, insulin-dependent type 2 diabetes mellitus, GERD, depression, chronic back pain and nephrolithiasis who presented to [facility] emergency department on 08/01/2025 with a chief complaint of hypoxia. Cardiology was consulted for management of new onset Afib on EKG. #New Onset A Fib with RVR -diagnosed July 2025 Patient has SOB. Denies palpation or chest pain. EKG showed irregularly irregular rhythm rate 155 with RBBB. MAT ruled out. No history of atrial fibrillation CHADSVASc score 6 HASBLEED score 3. High Risk of major bleeding Was given diltiazem IV 20 mg x 1 and was started on diltiazem gtt. 5 mg/h which was increased to 10 mg/h as patient continued to remain tachycardic On August 03 patient was noted to be significantly tachycardic with low blood pressure, was given total IV digoxin 0.625 mg loading dose and now on Digoxin 0.125mg po qd - rate controlled now -On 08/11, Digoxin level was 1.1 Plan: -Continue Aspirin 81 mg GT qd, and Eliquis 5 mg p.o. twice daily -Increased Cardizem from 60 mg to 90 mg GT 4 times daily. Currently on Digoxin 0.125mg GT qd. -Recommend Holter monitor outpatient to assess A fib burden. 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 Pulmonology notes reviewed. Patient steroid taper is being managed by resident clinic outpatient with recommendations from pulmonology remotely. Patient has had multiple admissions for hypercapnia, currently using BiPAP every night with [employer]. Patient does have history of heart failure, HFpEF with a EF 60 to 65%, never seen a clam sorter outpatient, patient not on diuretics outpatient per resident clinic note as patient has chronic hypercapnia and diuresis causes contraction alkalosis causing further respiratory decompensation. CXR (08/02/2025): extensive bilateral lung opacity, Mild enlargement cardiac contour with significant vascular congestion on physical exam 1+ edema noted bilateral hips. Patient's underlying respiratory status and lieu of ILD flare/aspiration pneumonia ECHO (08/02/2025) showed: 1. Left ventricle size is normal and systolic function is normal. Estimated ejection fraction is 60-65%. There is indeterminate diastolic function due to afib. There is mild concentric hypertrophy noted. 2. Right ventricle is not well visualized. RV function appears normal. 3. There is mild aortic valve sclerosis with no stenosis. 4. Mild thickening of the mitral valve leaflets. Mild MR, mild MAC. Mild TR. 5. Normal IVC with estimated RA pressure 3 mmHg. 6. Prior study from 12/29/2024. Plan: - Held diuresis initially as the patient was euvolemic and not receiving any kind of nutrition,Recommend to continue as needed IV diuresis and eventually need to be discharged at least on Lasix 20 mg once daily or 40 mg once daily based on renal function -Strict intake and output, daily weight -Fluid restriction 1500ml, cardiac diet -Keep magnesium greater than 2 and potassium greater than 4 at all times -Management of respiratory disease per primary team #?Pulmonary Hypertension, Group III #Hx of Interstitial Lung Disease - Patient has established diagnosis of interstitial lung disease, pulmonary fibrosis secondary to chronic hypersensitivity pneumonitis - Patient had echo in the past with elevated right-sided pressures suggestive of pulmonary hypertension - Chest CT (08/01/2025): Pulmonary artery hypertension, Severe pneumonia and/or edema throughout the lungs - Recommend outpatient workup for pulmonary hypertension Plan: -BiPAP prn -Duoneb prn -Steroid taper per pulmonology # Hypertension In ED, 155/80 blood pressure well-controlled -Start on immediate release cardizem 60mg qid PO #Hypernatremia #Acute on chronic hypoxic hypercapnic respiratory failure, likely secondary to #Aspiration pneumonia #Sepsis #GPC bacteremia #Lactic acidosis #Leukocytosis #UTI #Insulin-dependent type 2 diabetes #Esophageal stenosis s/p dilation #Chronic normocytic anemia #Hyperlipidemia #Hypothyroidism #Chronic constipation #Depression #Parkinson -Management per Primary Hospitalist team Thank you for allowing us to participate in the care of Ms Adelaida Coffman. Cardiology will continue to follow Assessment and plan discussed with my attending physician Dr. Tj Stovall (PGY-1) - Internal medicine resident Attending Provider Attestation/Addendum I have personally seen and examined the patient separately on the above date of service and discussed the plan of care with the resident. I reviewed the resident Dr. Freedom Stovall consultation progress note and agree with the resident findings and plan in the note above and have also edited the documentation to reflect my findings and plan. Steven Spencer M.D. Interventional Cardiology
[2025-08-12 08:26] LABS: Hemoglobin 8.8 g/dL (12.0-16.0); Platelet Count 195 Thou/mm3 (140-440)
--- NOTE | 2025-08-12 08:44 | PC.RT ---
Got called to bedside, patient was in respiratory distress with hypoxia. Patient was on NC for breakfast and placed back on NIV. Settings changed MD aware.
--- NOTE | 2025-08-12 09:00 | PD.IDPROG ---
Subjective Subjective Interval history: stable off abx. no id on yeast in bc. Exam Vital Signs Temp Pulse Resp BP Pulse Ox O2 Del Method O2 Flow Rate 98.8 F 124 H 37 H 153/96 H 94 L Nasal Cannula 4 08/12/25 08:00 08/12/25 08:27 08/12/25 08:27 08/12/25 08:00 08/12/25 08:27 08/12/25 08:00 08/12/25 08:00 FiO2 50 08/12/25 08:27 Narrative Exam move to floor noted. will see again prn Objective - Internal Medicine Labs 08/12/25 04:40 08/12/25 04:40 Labs: Laboratory Results - last 24 hr 08/12/25 04:40 WBC 25.2 H D RBC 3.07 L Hgb 8.8 L Hct 29.7 L MCV 97 MCH 28.7 MCHC 29.6 L RDW Std Deviation 59.7 H Plt Count 195 Neut % (Auto) 90 H Lymph % (Auto) 3 L [place] % (Auto) 4 Eos % (Auto) 1 Baso % (Auto) 1 Neut # (Auto) 22.7 H Lymph # (Auto) 0.7 L [place] # (Auto) 0.9 H Eos # (Auto) 0.2 Baso # (Auto) 0.1 Immature Gran # (Auto) 0.70 H Absolute Nucleated RBC 0.06 H Immature Gran % 3 H Nucleated RBC % 0 Sodium 142 Potassium 5.1 Chloride 93 L Carbon Dioxide 39.3 H Anion Gap 10 BUN 16 Creatinine 0.8 Estim Creat Clear Calc 56.9 L eGFR > 60 BUN/Creatinine Ratio 20 Glucose 219 H Calculated Osmolality 291 Calcium 10.3 Corrected Calcium 11.1 H Phosphorus 2.5 Magnesium 1.9 Total Bilirubin 0.3 AST 14 ALT 19 Alkaline Phosphatase 80 Total Protein 5.3 L Albumin 3.0 L Globulin 2.3 Albumin/Globulin Ratio 1.3 ABG Interpretation ABG results: 08/01/25 08/01/25 08/02/25 02:15 09:05 12:15 ABG pH 7.25 L 7.30 L ABG pCO2 74 H* 66 H ABG pO2 62 L 84 D ABG HCO3 33 H 32 H ABG O2 Saturation 95 95 ABG Base Excess 4 H 4 H VBG pH 7.27 L VBG pCO2 63 H VBG pO2 Not Performed. VBG Base Excess 0 08/03/25 08/04/25 08/08/25 10:44 12:13 22:13 ABG pH 7.33 L 7.33 L 7.48 H ABG pCO2 64 H 69 H 53 H ABG pO2 88 85 259 H ABG HCO3 34 H 36 H 40 H ABG O2 Saturation 95 95 99 H ABG Base Excess 6 H 8 H 14 H VBG pH VBG pCO2 VBG pO2 VBG Base Excess 08/09/25 08/09/25 08/10/25 01:48 04:15 05:00 ABG pH 7.47 H 7.42 7.41 ABG pCO2 55 H 64 H 63 H ABG pO2 189 H D 97 D 64 L D ABG HCO3 40 H 41 H 40 H ABG O2 Saturation 100 H 100 H 96 ABG Base Excess 15 H 15 H 13 H VBG pH VBG pCO2 VBG pO2 VBG Base Excess Assessment & Plan A&P Narrative dnr status seems to be at baseline wbc may be steroid related multiple listed allergies. prior id eval in may noted. abn ua in an 89 y/o lady with pos cx noted. not clear if she followed advice for vaginal estrogen in may. ild hx noted with hypercapnea. confounding things a bit. is in house frequently on steroids. at most low grade temps soon after arrival. wbc may be related to steroids but is done popularly on a daily basis. nasal mrsa neg. so mrsa an unlikely player in pneumonia bc with coag neg and repeats appear to be neg for any staph. line placed rt chest approx 08/03 so is fast for yeast. echo neg. no objection to restarting micafungin but ok to leave her off as well no cough noted. no notable fever but is on steriods. best fever reducers on the planet but have other se's will see again prn Time Spent With Patient Time: Total time spent is greater than 50% in coordination of care (as documented) at patient's floor/unit and/or counseling patient:
--- NOTE | 2025-08-12 09:20 | XR_ITS ---
EXAMINATION: AP chest single view TECHNIQUE: AP portable semiupright chest single view Date and time: August 12, 2025, 1001 hours, comparison August 09, 2025 MEDICATIONS: Inpatient with hypoxia aspiration shortness of breath today. FINDINGS: Moderate heart failure Mild enlargement cardiac contour. Prominent vascular congestion with perihilar edema. Consider superimposed pneumonia at the lung bases. Moderate bilateral pleural effusions. The patient has been extubated. Right internal jugular central line tip SVC IMPRESSION: Moderate heart failure Consider superimposed pneumonia at the lung bases
[2025-08-12] MEDS: POLYETHYLENE GLYCOL 17 GM PACKET GT (10:16)
[2025-08-12] MEDS: ASPIRIN 81 MG CHEW GT (10:16)
[2025-08-12] MEDS: VENLAFAXINE 37.5 MG TABLET 150 MG GT ×2 (10:17→21:02)
[2025-08-12] MEDS: PANTOPRAZOLE 40 MG TABLET PO (10:17)
[2025-08-12] MEDS: DIGOXIN 0.125 MG TABLET GT (10:17)
[2025-08-12] MEDS: APIXABAN 2.5 MG TABLET 5 MG GT ×2 (10:17→21:03)
--- NOTE | 2025-08-12 11:27 | ESPR_ITS ---
<Statement entered by John Paul Warren MD - 08/15/25 08:02> I reviewed above note and agree with findings and plans. I have also personally examined the patient with medicine team and went over assessment and plan with medical team including brand marketing intern and resident physician. <Statement entered by Benjamin Larsen MD - 08/12/25 14:11> No significant overnight events. Patient was put on n.p.o. strictly as there is increased chance of aspiration given patient's history. Tube feed in place with target goal of 65 cc/h. WBC did uptrend to 25 but patient has been afebrile. Blood cultures ordered, will consider antibiotics if she continues to have uptrending of WBC which is more than her usual as we are tapering off steroids. I discussed with and supervised the brand marketing intern physician involved in the care of this patient. Patient assessment and plan was discussed with entire medicine team, including my attending. I agree with the assessment and plan as documented by brand marketing intern doctor. Patient care was discussed with my attending physician Dr. Kelvin Larsen, PGY-3 Documentation for date of: 08/12/25 Subjective Subjective Interval history: 89-year-old female past medical history of interstitial lung disease, pulmonary fibrosis, chronic CO2 retention on 2 L home oxygen and BiPAP, HFpEF, bedbound, recurrent UTIs, hypothyroidism, right breast cancer status postlumpectomy, insulin-dependent type 2 diabetes, GERD, depression, and chronic back pain who presented to the ED in the spray dyer hours of 08/01/2025 with hypoxemia. Patient was on BiPAP and most history was gathered from the caregiver. Per the caregiver, patient ate lunch the day before and began to have coughing episodes. These episodes were intensified after the patient ate half of her dinner, at which time the caregiver took away the patient's food. Caregiver mentioned that the patient was coughing up phlegm with no food particles, and was concerned for aspiration and therefore called EMS. When the ambulance arrived it was reported that the patient was saturating in the high 30s. Per EMS the patient was saturating at 68% on 2 L nasal cannula and went up to the mid 80s after 2 albuterol treatments and route. Patient was admitted for acute on chronic hypoxic hypercapnic respiratory failure secondary to interstitial lung disease and possible aspiration pneumonia as well as UTI. 08/01/25: Patient was evaluated this morning with metal dresser present at the bedside. Patient is currently on BIPAP with a flow rate of 40, saturating at 93%. The patient is alert and oriented to person, place, and year, and reports no complaints at this time. Per metal dresser, patient has had several hospitalizations due to similar symptoms of shortness of breath and asymptomatic recurrent UTIs. Blood culture came back positive for gram positive cocci resembling staph in one of the bottles - started Vancomycin. 08/02/25: No acute events overnight. The patient was evaluated at the bedside this morning and was on BIPAP at 40%. Blood cultures from both bottles returned positive for gram-positive cocci, and vancomycin was initiated. An echocardiogram has been ordered and pending. Patient did not pass swallow screen yesterday. Speech therapy assessed the patient this morning and noted audible air after every swallow, followed by regurgitation that persisted for 15 minutes. The patient required oral suction with strong coughing. Desaturation occurred, dropping to 85%, accompanied by an elevated heart rate. As a result, the patient was placed NPO, and respiratory therapy was called for deep suctioning and to place the patient on high-flow oxygen. An ABG, CXR, and EKG were ordered. The CXR revealed significant bilateral pneumonia with an ARDS pattern, while the EKG showed atrial fibrillation with rapid ventricular response. On 02/08/25, the patient was seen by Dr. Peters for esophageal dilation of esophageal stenosis, and Dr. Peters has been consulted. Due to difficulty establishing IV access, plan to place central line. The patient requires heparin and diltiazem infusions for the atrial fibrillation with RVR. Cardiology has been consulted. 08/03/25: No acute events overnight. The patient was assessed at the bedside this morning. Initially on HFNC, the patient was weaned off and transitioned to BiPAP. A central line was placed today due to difficulty with IV access. Urine culture preliminary results show gram-negative rods, Zosyn will be continued. / blood culture was positive for Staphylococcus epidermidis, will repeat blood cultures and continue Vancomycin. The heart rate remains elevated despite diltiazem 10 mg and two doses of digoxin (0.25 mg x1, 0.125 mg x1), with no significant improvement in heart rate. Further recommendations are pending from cardiology. 08/04/25: No significant events overnight. The patient was seen this morning with the metal dresser at the bedside. Will speak with Dr. Jerez regarding the management of the patient's respiratory status, as he has been overseeing her care as her horse trader. The patient is currently receiving methylprednisolone 16 mg IV and continues on BIPAP. Hypernatremia was noted on AM labs, and D5W was administered since the patient is on BIPAP and NPO, with an inability to place an NG tube for free water flushes. Will continue to trend sodium. Dr. Peters will perform an EGD once the patient's respiratory condition stabilizes. Cardiology is actively following the patient and will continue diltiazem and heparin drip for afib. Tachycardia has resolved. A KUB was ordered due to the patient's complaints of abdominal pain, which revealed a large stool burden. The patient's last bowel movement was yesterday. A water enema has been ordered. 08/05/25: No acute events overnight. A repeat blood culture grew 1/2 yeast, and the patient was given one dose of Micafungin. Infectious Disease was consulted. The patient remains hypernatremic following D5W administration yesterday. An NG tube will be placed to initiate free water flushes, with a free water deficit of 1.9L to reach a sodium goal of 145. Water flushes will be administered at 250cc every four hours. Sodium levels will continue to be monitored every 6 hours. Phosphate has been repleted. The patient remains on BiPAP, and Dr. Jerez recommends continuing steroids for lung support. 08/06/25: Patient seen and examined at bedside this morning. She is awake and able to nod yes/no but is limited in verbal communication due to BiPAP use. Denies chest pain. Reports ongoing shortness of breath when off BiPAP. Per nursing and respiratory therapy, patient was trialed on Oxymask at 7 L/min and was able to tolerate this for approximately 1.5 hours; however, she subsequently desaturated and required transition back to BiPAP. No new fevers or chills reported. Remains NPO and understands she is unable to eat or drink at this time. Family updated regarding current respiratory status and ongoing care plan. 08/07/25: NAOE. Plan for EGD with PEG tube today for detention nutritional support. Discussed with lead director of healthcare systems at beside that there's a possibility that patient may require stay in the ICU if she cannot be safely extubated after general anesthesia. Na level stable at 144. Patient requires to be on BiPAP all the time at this point. 08/08/25: NAOE. EGD PEG placement postponed from yesterday to today @ 3pm. Discussed with patient at bedside again for the possibility for her to stay at ICU until she can be safely extubated. Na 144, stable. Pause Insulin Degludec today given glucose of 96 this morning and patient had not been eating. Maintanence D5NaCl started @60ml/hr, will d/c once patient start feeding via PEG tube. 08/08/2025 (ICU): Patient seen and examined at bedside. she was s/p egd with dilation and peg tube placement. she remains intubated and mechanically ventillated. on precedex and fent pushes for sedation. plan to trial spontaneous breathing trial tomorrow. optomize ventilation to get her to baseline co2 retention by monitoring pco2 or end tidal of around 37. goal is not to overventilate. et confirmed above the gt. peg tube feeds initiated at trickle rates per dietitian recs. 08/09/2025 (ICU): Patient seen and examined at bedside. She was placed on spontaneous breathing trial in the AM and was successfully extubated to Bipap. will give x1 lasix 20 IV dose. 08/10/2025 (ICU): Patient seen and examined at bedside. A and O x3, she passed swallow eval with speech therapist, was downgraded from ICU. No acute events overnight. tolerating peg tube feeds. 08[facility]O [facility]. 08/11/25: NAOE. Pt on BiPAP when napping. RT was called for mask fitting, as patient seems to have a lot of airleak. Her current TF rate is at 40ml/hr. Goal is 65ml/hr. She's tolerating TF well, will continue to monitor, but patient can likely be discharged once TF reach the goal. Her diet was changed to dysphagia diet per speech therpist recommendation 08/12/25: NAOE. Will keep patient NPO now til discharge to prevent risk of aspiration. Patient is at goal for TF @ 65ml/hr, can be discharged tmr if tolerating well. Care givers educated on TF at bedside today by Dietrician. WBC increased to 25.2 today, however, afebrile. Bcx ordered, may consider restarting abx if WBC continue to be elevated. Patient will likely require to be on BiPAP at all time while at home. Exam Vital Signs Temp Pulse Resp BP Pulse Ox O2 Del Method O2 Flow Rate 98.8 F 124 H 37 H 153/96 H 94 L Nasal Cannula 4 08/12/25 08:00 08/12/25 10:17 08/12/25 08:27 08/12/25 10:17 08/12/25 08:27 08/12/25 08:00 08/12/25 08:00 FiO2 50 08/12/25 08:27 Narrative Exam General: A/O x 3. Obese habitus, BMI 37. S/p PEG tube. On BiPAP. HEENT: Normocephalic, atraumatic. Neck: Supple, thick neck. Cardiovascular: Regular rate and rhythm. No murmurs, rubs, or gallops. Respiratory: Crackles to all lung zones. no WOB. Abdomen: Soft, nontender, nondistended. PEG tube intact. Skin: Warm and dry , scatterd bruising of the UE at the hands . Objective Labs 08/12/25 04:40 08/12/25 04:40 Labs: Laboratory Results - last 24 hr 08/12/25 04:40 WBC 25.2 H D RBC 3.07 L Hgb 8.8 L Hct 29.7 L MCV 97 MCH 28.7 MCHC 29.6 L RDW Std Deviation 59.7 H Plt Count 195 Neut % (Auto) 90 H Lymph % (Auto) 3 L [place] % (Auto) 4 Eos % (Auto) 1 Baso % (Auto) 1 Neut # (Auto) 22.7 H Lymph # (Auto) 0.7 L [place] # (Auto) 0.9 H Eos # (Auto) 0.2 Baso # (Auto) 0.1 Immature Gran # (Auto) 0.70 H Absolute Nucleated RBC 0.06 H Immature Gran % 3 H Nucleated RBC % 0 Sodium 142 Potassium 5.1 Chloride 93 L Carbon Dioxide 39.3 H Anion Gap 10 BUN 16 Creatinine 0.8 Estim Creat Clear Calc 56.9 L eGFR > 60 BUN/Creatinine Ratio 20 Glucose 219 H Calculated Osmolality 291 Calcium 10.3 Corrected Calcium 11.1 H Phosphorus 2.5 Magnesium 1.9 Total Bilirubin 0.3 AST 14 ALT 19 Alkaline Phosphatase 80 Total Protein 5.3 L Albumin 3.0 L Globulin 2.3 Albumin/Globulin Ratio 1.3 ABG Interpretation ABG results: 08/01/25 08/01/25 08/02/25 02:15 09:05 12:15 ABG pH 7.25 L 7.30 L ABG pCO2 74 H* 66 H ABG pO2 62 L 84 D ABG HCO3 33 H 32 H ABG O2 Saturation 95 95 ABG Base Excess 4 H 4 H VBG pH 7.27 L VBG pCO2 63 H VBG pO2 Not Performed. VBG Base Excess 0 08/03/25 08/04/25 08/08/25 10:44 12:13 22:13 ABG pH 7.33 L 7.33 L 7.48 H ABG pCO2 64 H 69 H 53 H ABG pO2 88 85 259 H ABG HCO3 34 H 36 H 40 H ABG O2 Saturation 95 95 99 H ABG Base Excess 6 H 8 H 14 H VBG pH VBG pCO2 VBG pO2 VBG Base Excess 08/09/25 08/09/25 08/10/25 01:48 04:15 05:00 ABG pH 7.47 H 7.42 7.41 ABG pCO2 55 H 64 H 63 H ABG pO2 189 H D 97 D 64 L D ABG HCO3 40 H 41 H 40 H ABG O2 Saturation 100 H 100 H 96 ABG Base Excess 15 H 15 H 13 H VBG pH VBG pCO2 VBG pO2 VBG Base Excess Quality Measures Quality Measures VTE prophylaxis Advance care planning discussed with:: patient Assessment & Plan Assessment Current Active Medications: Generic Name Dose Route Start Last Admin Trade Name Freq PRN Reason Stop Dose Admin Acetaminophen 650 mg 08/01/25 05:05 Acetaminophen 325 Mg Tablet PO 08/31/25 05:04 Q6H PRN Fever >100.4 Apixaban 5 mg 08/08/25 21:00 08/12/25 10:17 Apixaban 2.5 Mg Tablet GT 09/07/25 20:59 5 mg BID LISETTE Administration Aspirin 81 mg 08/09/25 09:00 08/12/25 10:16 Aspirin 81 Mg Chew GT 09/08/25 08:59 81 mg DAILY LISETTE Administration Atorvastatin Calcium 10 mg 08/08/25 21:00 08/11/25 20:49 Atorvastatin Calcium 10 Mg Tablet GT 09/07/25 20:59 10 mg HS LISETTE Administration Dextrose 50 ml 08/01/25 05:16 Dextrose 50%-Water Inj 50 Ml Syringe IV 08/31/25 05:15 Q15MIN PRN BG <50 OR BG <70 & pt unresponsive Digoxin 0.125 mg 08/09/25 09:15 08/12/25 10:17 Digoxin 0.125 Mg Tablet 09/08/25 09:14 0.125 mg QDAY LISETTE Administration Diltiazem HCl 60 mg 08/11/25 12:00 08/12/25 05:12 Diltiazem 30 Mg Tablet 09/10/25 11:59 60 mg QID LISETTE Administration Glucagon 1 mg 08/01/25 05:16 Glucagon Inj 1 Mg Vial IM Q15MIN PRN BG <70, and no IV access Dexmedetomidine/Sodium Chloride 400 mcg in 100 mls @ 5.325 mls/hr 08/08/25 15:27 08/09/25 08:00 Precedex Ivpb IV 09/07/25 15:26 0 mcg/kg/hr .[id number] PRN 0 mls/hr Per PROTOCOL Titration Protocol 0.2 MCG/KG/HR Insulin Degludec 20 unit 08/12/25 21:00 Insulin Degludec 5 Unit/0.05 Ml (Per 5 Units) [place] 09/11/25 20:59 HS [facility] Insulin Human Lispro 0 unit 08/08/25 12:00 08/12/25 11:23 Insulin Lispro (Admelog) 1 Unit/0.01 Ml Unit SC 09/07/25 11:59 3 unit Q6HR LISETTE Administration Protocol Ipratropium [place] 0.5 mg 08/02/25 17:04 08/09/25 18:51 Ipratropium Rt 0.5 Mg/ 2.5 Ml Nebu INH 09/01/25 17:03 0.5 mg Q6HR PRN Administration SHORTNESS OF BREATH Protocol Levalbuterol HCl 0.63 mg 08/02/25 17:04 08/09/25 18:51 Levalbuterol Rt 0.63 Mg/3 Ml Nebu INH 09/01/25 17:03 0.63 mg Q6H PRN Administration WHEEZING Protocol Levothyroxine Sodium 100 mcg 08/09/25 06:00 08/12/25 05:13 Levothyroxine Sodium 100 Mcg Tablet GT 09/08/25 05:59 100 mcg ACBR LISETTE Administration Pantoprazole Sodium 40 mg 08/12/25 09:00 08/12/25 10:17 Pantoprazole 40 Mg Tablet PO 09/11/25 08:59 40 mg QDAY LISETTE Administration Polyethylene Glycol 17 gm 08/09/25 09:00 08/12/25 10:16 Polyethylene Glycol 17 Gm Packet GT 09/08/25 08:59 17 gm DAILY LISETTE Administration Pramipexole Dihydrochloride 1 mg 08/09/25 21:00 08/11/25 20:49 Pramipexole 0.25 Mg Tablet GT 09/08/25 20:59 1 mg HS LISETTE Administration Prednisone 15 mg 08/12/25 09:00 08/12/25 10:16 Prednisone 5 Mg Tablet GT 09/11/25 08:59 15 mg QDAY LISETTE Administration Sennosides 1 tab 08/09/25 09:00 08/12/25 10:17 Senna Tablet GT 09/08/25 08:59 1 tab QDAY LISETTE Administration Protocol Sodium Chloride 3 ml 08/01/25 02:11 Sodium Chloride Rt Sravani 0.9% 3 Ml Nebu INH 08/31/25 02:10 PRN PRN SOLN Venlafaxine HCl 150 mg 08/11/25 21:00 08/12/25 10:17 Venlafaxine 37.5 Mg Tablet GT 09/10/25 20:59 150 mg BID LISETTE Administration Plan 89-year-old female with chronic ILD/pulmonary fibrosis with chronic CO2 retention on home BiPAP, HFpEF, IDDM, and esophageal stenosis, admitted for acute on chronic hypoxic hypercapnic respiratory failure secondary to aspiration pneumonia, complicated by sepsis from Pseudomonas UTI, new-onset atrial fibrillation with RVR, severe dysphagia requiring NPO status and NG tube, and limited respiratory reserve with inability to tolerate sustained wean from BiPAP. #Esophageal stenosis s/p dilation (08/08/25) #S/p PEG tube placement (08/08/25) - s/p EGD with dilation for dysphagia secondary to esophageal stenosis on 02/08/2025. - GI recommended checking TSH and T4 to make sure patient is on adequate supplement as hypothyroidism can cause dysphagia. Both within normal range. - Persistent dysphagia is a major contributor to recurrent aspiration and respiratory failure. - 08/08/25: esophageal dilation + PEG tube placement. Plan: * Extensive [id number] discussion held with patient?s nephew, Jg, regarding risks, benefits, and alternatives to intervention, including hospice and palliative care. * Family understands the high risk of respiratory failure and prolonged intubation. * Family elects to proceed with EGD under monitored anesthesia care (MAC) despite elevated procedural risk. * Ongoing aspiration is suspected to be driven by severe dysphagia from esophageal stenosis, contributing to recurrent respiratory decompensation. * GI discussed that definitive options are limited to esophageal dilation or PEG tube placement, both of which require intubation and sedation. * Pulmonology has expressed concern that given the patient?s chronic pulmonary disease and BiPAP dependence, safe extubation following the procedure may not be possible. * Plan for EGD w/ PEG tube 08/08/[address] Peters under [place], may require ICU stay in cannot be safely extubated. --> downgraded to Medsurg 08/10/25. * Tube feed initated. At goal rate 65ml/hr. Water flush 30ml/hr x 22hrs as need if not on IV. TF to be hold for one hour before and after levothyroxine. #Acute on chronic hypoxic hypercapnic respiratory failure, likely secondary to #Aspiration pneumonia #Pulmonary arterial hypertension #Interstitial lung disease #Pulmonary fibrosis - Known history of chronic interstitial lung disease and pulmonary fibrosis, contributing to chronic respiratory failure, chronic CO2 retention, and the need for BiPAP and home oxygen (2L). - Current acute exacerbation appears to be triggered by aspiration, likely exacerbated by recent intensified coughing after meals. The patient had worsening respiratory distress following dinner, with increasing cough and suspected aspiration of food. - Initial lactate was elevated at 2.4 --> 2.7 --> 2.3. Given the hypoxia and respiratory failure, the lactic acidosis may be due to tissue hypoperfusion and/or poor oxygenation. - Initial ABG showed pH 7.25, pCO2 74, pO2 62, bicarb 33, represents respiratory acidosis. - CXR 08/01: extensive bilateral pneumonia, prominent vascular congestion. - Patient is currently on a prednisone taper for ILD. - Patient failed ST swallow screen. - EGD and esophageal dilation on 02/08/25 for esophageal stenosis. - ABG 08/03: pH 7.33, pCO2 64, HCO3 34. Plan: * Pulmonology consulted, patient deemed high risk for intubation and prolonged ventilator dependence. * Continue strict NPO status and aspiration precautions. * Switched DuoNebs to Levalbuterol as patient is tachycardic. * Continuous pulse oximetry to closely monitor oxygen saturation. * Aspiration precautions. * Switched Prednisone 20mg PO QD to Methylprednisolone 16 mg IV QD as patient is NPO. Given the patient's history of interstitial lung disease, the steroid taper should proceed as planned, maintaining the current dose for 1 more week before reassessment. * Monitor for signs of worsening pneumonia or other complications. * Pulmonology has evaluated the patient and expressed concern that intubation for procedures may result in prolonged mechanical ventilation with high risk of inability to safely extubate, given chronic lung disease and BiPAP dependence. * Satting 88% on NC, need BiPAP all the time now to maintain O2 sat. #Sepsis #Staphylococcus epidermidis bacteremia #Pseudomonas aeruginosa UTI #Lactic acidosis #Leukocytosis - Etiology: Staphylococcus epidermidis bacteremia with suspected urinary tract infection as the source? - Lactate: 2.4 --> 2.7 --> 2.3. - WBC 23.2 on admission. - Blood culture 08/01: 2/2 GPC bacteremia. Staphylococcus epidermidis. - UA: 1+ protein, 44 RBC, 76 WBC, amorphous crystals, budding yeast, leukocyte esterase positive. Previous culture was positive for pansensitive Klebsiella Ozaenae. - Urine culture 08/01: Pseudomonas aeruginosa. Sensitive to Zosyn. - CXR: extensive bilateral pneumonia, prominent vascular congestion. - Fluids: 30 mL/kg, 2L of LR given in ED. - Blood culture 08/03: Yeast. Received one dose of Micafungin 50 mg. - Blood culture 08/05: NGTD Plan: * Infectious Disease consulted, recommend continue Zosyn at this time vs transition to Levofloxacin. * Stop Vancomycin * No further antifungal therapy recommended after single dose of micafungin. * Zosyn 2.25 g every 8 hours for UTI (08/01-08/08). * Oxygen / Ventilation: BiPAP. * Renal: strict I&O, avoid nephrotoxins. * CBC/BMP daily or more frequent if unstable. * Monitor organ dysfunction resolution or progression. * Continue to monitor repeat blood cultures and clinical status. * Bcx ordered 08/12/25 #New onset Atrial fibrillation with RVR - EKG on 08/02 showed irregularly irregular rhythm rate 155 with RBBB. - No history of atrial fibrillation. - CHADSVASc score 6. - HASBLEED score 3. High Risk of major bleeding. - Was given diltiazem IV 20 mg x 1 and was started on diltiazem gtt. 5 mg/h which was increased to 10 mg/h as patient continued to remain tachycardic. - Three doses of digoxin (0.25 mg x2, 0.125 mg x1) given on 08/03 for tachycardia. Plan: * Cardiology consulted - appreciate recs. * ASA 81mg GT QD * Eliquis 5mg GT BID * Diltiazem 60mg GT QID * IV digoxin 0.125 GT * Check digoxin level 08/10 --> 1.2 * Keep potassium greater than 4 and magnesium greater than 2 at all times. #Hypernatremia (resolved) #Hyperkalemia (resolved) - On admission, sodium 148 and potassium 5.2. - Likely secondary to decreased oral intake, lack of insulin, or hyperglycemia. - Patient received fluids in the ED and will start receiving insulin sliding scale. - Sodium continues to uptrend, peak at 153 on 08/04. - D5W given 08/04, sodium 153 --> 151. Plan: * Daily lab for monitoring. #NSTEMI - Likely secondary to demand ischemia. - Troponin of 0.051 --> 0.030. - EKG showed sinus tachycardia with a rate of 131 QTc 473, widened upright QRS in V1 may represent right bundle branch block, No acute ST segment changes in other leads Plan: * Continue to monitor for chest pain. #Insulin-dependent type 2 diabetes - Per caregiver the patient is on 35 units of Lantus every morning, sliding scale, and 8 units regular 3 times daily with meals. - Hemoglobin A1c 2 months ago was 6.4. - Glucose on admission was 241. Plan: * Insulin degludec 20 units QD. * Insulin sliding scale. * Carb consistent diet once patient passes swallow eval. #Chronic normocytic anemia - Hemoglobin 11.8, MCV 101. - Likely secondary to anemia of chronic disease secondary to history of breast cancer and interstitial lung disease. - No suspicion for active bleed at this time. Plan: * No direct intervention at this time. * Monitor CBC. #Chronic diastolic CHF, HFpEF - Echo from 12/2024 showed EF 65%. Trace mitral and trace tricuspid regurgitation, No wall motion abnormalities noted. - BNP 193. - CXR (08/02/2025): extensive bilateral lung opacity, Mild enlargement cardiac contour with significant vascular congestion on physical exam 1+ edema noted bilateral hips. - Patient's underlying respiratory status and lieu of ILD flare/aspiration pneumonia. - Echo 08/02/25: ejection fraction is 60-65%. Plan: * Strict I and Os. * Fluid restriction 1500ml. * Patient is not on diuretics outpatient because of chronic hypercapnia and diuresis can cause contraction alkalosis causing further respiratory decompensation. * Hold diuresis for now as patient does not seemed to be fluid overloaded. #Hyperlipidemia Plan: * Continue atorvastatin 10 mg GT #Hypothyroidism - Home medication: Levothyroxine 100 mcg daily. Plan: * Levothyroxine 100 mcg GT * TF to be hold for one hour before and after levothyroxine. #Chronic constipation - Per caregiver, the patient's last bowel movement was 07/30/2025. - Last bowel movement 08/03. - KUB 08/04: large amounts of stool throughout the colon. Plan: * Daily senna and MiraLAX. * Water edema ordered. #Depression Plan: * On Venlafaxine 150 mg GT BID. #Parkinson Plan: * Hold home pramipexole 1 mg GT Health Maintenance Disposition: tele, PEG tube placement DVT prophylaxis: Eliquis GI prophylaxis: Pantoprazole 40 mg IV daily Diet: NPO [place]: In place Lines: Peripheral IV, PEG tube, Central line CODE STATUS: DNR/DNI Case discussed with my senior resident Dr. Larsen Case discussed with my attending Dr. Kelvin Combs, DO PGY 1
--- NOTE | 2025-08-12 12:38 | PD.IMPROG ---
Documentation for date of: 08/12/25 Subjective Subjective Interval history: Patient evaluated PEG site looks good Patient on BiPAP Exam Vital Signs Temp Pulse Resp BP Pulse Ox O2 Del Method O2 Flow Rate 98.8 F 124 H 37 H 132/90 H 94 L Nasal Cannula 4 08/12/25 08:00 08/12/25 12:04 08/12/25 08:27 08/12/25 12:04 08/12/25 08:27 08/12/25 08:00 08/12/25 08:00 FiO2 50 08/12/25 08:27 Objective Labs 08/12/25 04:40 08/12/25 04:40 Labs: Laboratory Results - last 24 hr 08/12/25 04:40 WBC 25.2 H D RBC 3.07 L Hgb 8.8 L Hct 29.7 L MCV 97 MCH 28.7 MCHC 29.6 L RDW Std Deviation 59.7 H Plt Count 195 Neut % (Auto) 90 H Lymph % (Auto) 3 L [place] % (Auto) 4 Eos % (Auto) 1 Baso % (Auto) 1 Neut # (Auto) 22.7 H Lymph # (Auto) 0.7 L [place] # (Auto) 0.9 H Eos # (Auto) 0.2 Baso # (Auto) 0.1 Immature Gran # (Auto) 0.70 H Absolute Nucleated RBC 0.06 H Immature Gran % 3 H Nucleated RBC % 0 Sodium 142 Potassium 5.1 Chloride 93 L Carbon Dioxide 39.3 H Anion Gap 10 BUN 16 Creatinine 0.8 Estim Creat Clear Calc 56.9 L eGFR > 60 BUN/Creatinine Ratio 20 Glucose 219 H Calculated Osmolality 291 Calcium 10.3 Corrected Calcium 11.1 H Phosphorus 2.5 Magnesium 1.9 Total Bilirubin 0.3 AST 14 ALT 19 Alkaline Phosphatase 80 Total Protein 5.3 L Albumin 3.0 L Globulin 2.3 Albumin/Globulin Ratio 1.3 Impressions Impression: Failure to thrive Dysphagia status post endoscopic guidewire savory dilatation PEG placement for failure to thrive Continue current management ABG Interpretation ABG results: 08/01/25 08/01/25 08/02/25 02:15 09:05 12:15 ABG pH 7.25 L 7.30 L ABG pCO2 74 H* 66 H ABG pO2 62 L 84 D ABG HCO3 33 H 32 H ABG O2 Saturation 95 95 ABG Base Excess 4 H 4 H VBG pH 7.27 L VBG pCO2 63 H VBG pO2 Not Performed. VBG Base Excess 0 08/03/25 08/04/25 08/08/25 10:44 12:13 22:13 ABG pH 7.33 L 7.33 L 7.48 H ABG pCO2 64 H 69 H 53 H ABG pO2 88 85 259 H ABG HCO3 34 H 36 H 40 H ABG O2 Saturation 95 95 99 H ABG Base Excess 6 H 8 H 14 H VBG pH VBG pCO2 VBG pO2 VBG Base Excess 08/09/25 08/09/25 08/10/25 01:48 04:15 05:00 ABG pH 7.47 H 7.42 7.41 ABG pCO2 55 H 64 H 63 H ABG pO2 189 H D 97 D 64 L D ABG HCO3 40 H 41 H 40 H ABG O2 Saturation 100 H 100 H 96 ABG Base Excess 15 H 15 H 13 H VBG pH VBG pCO2 VBG pO2 VBG Base Excess Assessment & Plan A&P Narrative dnr status seems to be at baseline wbc may be steroid related multiple listed allergies. prior id eval in may noted. abn ua in an 89 y/o lady with pos cx noted. not clear if she followed advice for vaginal estrogen in may. ild hx noted with hypercapnea. confounding things a bit. is in house frequently on steroids. at most low grade temps soon after arrival. wbc may be related to steroids but is done popularly on a daily basis. nasal mrsa neg. so mrsa an unlikely player in pneumonia bc with coag neg and repeats appear to be neg for any staph. line placed rt chest approx 08/03 so is fast for yeast. echo neg. no objection to restarting micafungin but ok to leave her off as well no cough noted. no notable fever but is on steriods. best fever reducers on the planet but have other se's will see again prn Time Spent With Patient Time: Total time spent is greater than 50% in coordination of care (as documented) at patient's floor/unit and/or counseling patient:
--- NOTE | 2025-08-12 13:51 | PC.SS ---
Addendum entered by Marisa Upton 08/12/25 16:05: SS spoke to Georgina with [facility] who stated they will have a event services manager go look at bed Friday morning. SS updated Lissy Barton Original Note: SS met with family and pt plant care worker Lissy at bedside to discuss concerns. Per Lissy pt bred in not working and they wish to get a new one. SS reached out to [facility] and spoke to Georgina who stated pt received one in 2022 and they only auth for one every 5 years. SS explained to Lissy, but per Lissy [facility] didn't provide the bed pt has as it is old, older then 5 years. SS reached out to [facility] to see if they can assist with fixing bed.
--- NOTE | 2025-08-12 15:03 | PC.SS ---
Rounding: WBC elevated, central line to be discontinued. DC plan home with HH
[2025-08-12] MEDS: DILTIAZEM 30 MG TABLET 90 MG GT ×2 (16:56→21:02)
[2025-08-12] MEDS: PRAMIPEXOLE 0.25 MG TABLET 1 MG GT (21:02)
[2025-08-12] MEDS: ATORVASTATIN CALCIUM 10 MG TABLET GT (21:03)
[2025-08-12] MEDS: INSULIN DEGLUDEC 5 UNIT/0.05 ML (PER 5 UNITS) 20 UNIT SC (21:23)
[2025-08-13] VITALS (21 sets, daily range): BP systolic 123–171; BP diastolic 61–71; PULSE 101–116; RESP 10–33; TEMP 36.4–37.4; O2SAT 91–95; BMI 34.8
[2025-08-13] MEDS: INSULIN LISPRO (AdmeLOG) 1 UNIT/0.01 ML UNIT SC ×5 (00:20→23:04)
[2025-08-13] MEDS: LEVOTHYROXINE SODIUM 100 MCG TABLET GT (05:02)
[2025-08-13] MEDS: DILTIAZEM 30 MG TABLET 90 MG GT ×4 (05:02→20:37)
[2025-08-13 06:15] LABS: Basophils # (Auto) 0.1 Thou/mm3 (0.0-0.2); Basophils % (Auto) 0 % (0-2.5); Eosinophils # (Auto) 0.1 Thou/mm3 (0.0-0.5); Eosinophils % (Auto) 0 % (0-10); Hematocrit 28.0 % (36.0-46.0); Immature Granulocytes Auto 0.63 Thou/mm3 (0.00-0.00); Lymphocytes # (Auto) 0.5 Thou/mm3 (1.0-4.8); Lymphocytes % (Auto) 3 % (10-50); Mean Corpuscular HGB Conc 28.2 g/dl (31.0-37.0); Mean Corpuscular Hemoglobin 28.7 pg (25.0-35.0); Mean Corpuscular Volume 102 fL (80-100); Monocytes # (Auto) 1.0 Thou/mm3 (0.0-0.8); Monocytes % (Auto) 5 % (0-12); Neutrophils # (Auto) 16.6 Thou/mm3 (1.8-7.7); Neutrophils % (Auto) 88 % (37-80); Nucleated Red Blood Cell # 0.05 Thou/mm3 (0.00-0.00); Nucleated Red Blood Cell % 0 /100 WBC (0); Platelet Count 202 Thou/mm3 (140-440); RDW Standard Deviation 63.1 fL (36.4-46.3); Red Blood Count 2.75 Miln/mm3 (4.00-5.20); White Blood Count 18.9 Thou/mm3 (3.6-11.0)
[2025-08-13 06:20] LABS: Hemoglobin 7.9 g/dL (12.0-16.0)
[2025-08-13 06:52] LABS: Anion Gap 9 (7-16); BUN/Creatinine Ratio 21 Ratio (12-20); Blood Urea Nitrogen 19 mg/dL (9-23); Calcium 10.8 mg/dL (8.3-10.6); Carbon Dioxide > 40.0 mMol/L (20.0-31.0); Chloride 90 mMol/L (98-107); Creatinine (Component) 0.9 mg/dL (0.6-1.3); Estimated Creatinine Clearance 50.6 mL/min (>60); Glucose 293 mg/dL (74-106); Magnesium 1.8 mg/dL (1.6-2.6); Osmolality,Calculated 290 (275-295); Phosphorous 2.1 mg/dL (2.4-5.1); Potassium 5.2 mMol/L (3.4-5.1); Sodium 139 mMol/L (136-145); eGFR > 60 See Note
--- NOTE | 2025-08-13 08:49 | ESPR_ITS ---
Documentation for date of: 08/13/25 Subjective Subjective Interval history: Patient seen examined at bedside, no current complaints. Heart rate controlled less than 110 on diltiazem 90 four times daily and digoxin. Contraction alkalosis noted, patient looks hypovolemic, consider discussing with dietitian regarding free water flushes and increase as needed. Management per primary team. No indication for diuresis for now, will consider acetazolamide in the morning. Exam Vital Signs Temp Pulse Resp BP Pulse Ox O2 Del Method O2 Flow Rate 97.6 F 109 H 33 H 138/68 H 94 L BiPAP 4 08/13/25 07:49 08/13/25 07:49 08/13/25 07:49 08/13/25 07:49 08/13/25 07:49 08/13/25 07:49 08/12/25 16:00 FiO2 50 08/13/25 07:14 Narrative Exam General: Chronically ill-appearing woman, obese habitus, on bipap HEENT: Normocephalic, atraumatic. Heart:normal S1 and S2, no murmurs. Regular rate and rhythm. Lungs: Mild wheezing bilateral. Abdomen: Obese, firm, distended, tender. No guarding or rebound tenderness. Neurologic: Alert and oriented x3, no gross neurological deficit, and patient able to move all 4 extremities. Extremities: No lower extremity edema, clubbing or cyanosis. No joint deformity. Skin: Warm and dry without rashes. : Queen in place, draining yellow urine. Objective Labs 08/13/25 04:30 08/13/25 04:30 Labs: Laboratory Results - last 24 hr 08/13/25 04:30 WBC 18.9 H D RBC 2.75 L Hgb 7.9 L Hct 28.0 L MCV 102 H MCH 28.7 MCHC 28.2 L RDW Std Deviation 63.1 H Plt Count 202 Neut % (Auto) 88 H Lymph % (Auto) 3 L George % (Auto) 5 Eos % (Auto) 0 Baso % (Auto) 0 Neut # (Auto) 16.6 H Lymph # (Auto) 0.5 L George # (Auto) 1.0 H Eos # (Auto) 0.1 Baso # (Auto) 0.1 Immature Gran # (Auto) 0.63 H Absolute Nucleated RBC 0.05 H Immature Gran % 3 H Nucleated RBC % 0 Sodium 139 Potassium 5.2 H Chloride 90 L Carbon Dioxide > 40.0 H Anion Gap 9 BUN 19 Creatinine 0.9 Estim Creat Clear Calc 50.6 L eGFR > 60 BUN/Creatinine Ratio 21 H Glucose 293 H D Calculated Osmolality 290 Calcium 10.8 H Phosphorus 2.1 L Magnesium 1.8 ABG Interpretation ABG results: 08/01/25 08/01/25 08/02/25 02:15 09:05 12:15 ABG pH 7.25 L 7.30 L ABG pCO2 74 H* 66 H ABG pO2 62 L 84 D ABG HCO3 33 H 32 H ABG O2 Saturation 95 95 ABG Base Excess 4 H 4 H VBG pH 7.27 L VBG pCO2 63 H VBG pO2 Not Performed. VBG Base Excess 0 08/03/25 08/04/25 08/08/25 10:44 12:13 22:13 ABG pH 7.33 L 7.33 L 7.48 H ABG pCO2 64 H 69 H 53 H ABG pO2 88 85 259 H ABG HCO3 34 H 36 H 40 H ABG O2 Saturation 95 95 99 H ABG Base Excess 6 H 8 H 14 H VBG pH VBG pCO2 VBG pO2 VBG Base Excess 08/09/25 08/09/25 08/10/25 01:48 04:15 05:00 ABG pH 7.47 H 7.42 7.41 ABG pCO2 55 H 64 H 63 H ABG pO2 189 H D 97 D 64 L D ABG HCO3 40 H 41 H 40 H ABG O2 Saturation 100 H 100 H 96 ABG Base Excess 15 H 15 H 13 H VBG pH VBG pCO2 VBG pO2 VBG Base Excess Quality Measures Quality Measures VTE prophylaxis Advance care planning discussed with:: patient Assessment & Plan Assessment Current Active Medications: Generic Name Dose Route Start Last Admin Trade Name Freq PRN Reason Stop Dose Admin Acetaminophen 650 mg 08/01/25 05:05 Acetaminophen 325 Mg Tablet PO 08/31/25 05:04 Q6H PRN Fever >100.4 Apixaban 5 mg 08/08/25 21:00 08/12/25 21:03 Apixaban 2.5 Mg Tablet GT 09/07/25 20:59 5 mg BID LISETTE Administration Aspirin 81 mg 08/09/25 09:00 08/12/25 10:16 Aspirin 81 Mg Chew GT 09/08/25 08:59 81 mg DAILY LISETTE Administration Atorvastatin Calcium 10 mg 08/08/25 21:00 08/12/25 21:03 Atorvastatin Calcium 10 Mg Tablet GT 09/07/25 20:59 10 mg HS LISETTE Administration Dextrose 50 ml 08/01/25 05:16 Dextrose 50%-Water Inj 50 Ml Syringe IV 08/31/25 05:15 Q15MIN PRN BG <50 OR BG <70 & pt unresponsive Digoxin 0.125 mg 08/09/25 09:15 08/12/25 10:17 Digoxin 0.125 Mg Tablet 09/08/25 09:14 0.125 mg QDAY LISETET Administration Diltiazem HCl 90 mg 08/12/25 17:00 08/13/25 05:02 Diltiazem 30 Mg Tablet 09/11/25 16:59 90 mg QID LISETTE Administration Glucagon 1 mg 08/01/25 05:16 Glucagon Inj 1 Mg Vial IM Q15MIN PRN BG <70, and no IV access Dexmedetomidine/Sodium Chloride 400 mcg in 100 mls @ 5.325 mls/hr 08/08/25 15:27 08/09/25 08:00 Precedex Ivpb IV 09/07/25 15:26 0 mcg/kg/hr .[id number] PRN 0 mls/hr Per PROTOCOL Titration Protocol 0.2 MCG/KG/HR Magnesium Sulfate 2 gm in 50 mls @ 25 mls/hr 08/13/25 08:18 Magnesium Sulfate Ivpb IV 08/13/25 10:17 X1 ONE Insulin Degludec 20 unit 08/12/25 21:00 08/12/25 21:23 Insulin Degludec 5 Unit/0.05 Ml (Per 5 Units) AR 09/11/25 20:59 20 unit HS LISETTE Administration Insulin Human Lispro 0 unit 08/08/25 12:00 08/13/25 05:25 Insulin Lispro (Admelog) 1 Unit/0.01 Ml Unit SC 09/07/25 11:59 3 unit Q6HR LISETTE Administration Protocol Ipratropium [place] 0.5 mg 08/02/25 17:04 08/09/25 18:51 Ipratropium Rt 0.5 Mg/ 2.5 Ml Nebu INH 09/01/25 17:03 0.5 mg Q6HR PRN Administration SHORTNESS OF BREATH Protocol Levalbuterol HCl 0.63 mg 08/02/25 17:04 08/09/25 18:51 Levalbuterol Rt 0.63 Mg/3 Ml Nebu INH 09/01/25 17:03 0.63 mg Q6H PRN Administration WHEEZING Protocol Levothyroxine Sodium 100 mcg 08/09/25 06:00 08/13/25 05:02 Levothyroxine Sodium 100 Mcg Tablet GT 09/08/25 05:59 100 mcg ACBR LISETTE Administration Pantoprazole Sodium 40 mg 08/12/25 09:00 08/12/25 10:17 Pantoprazole 40 Mg Tablet PO 09/11/25 08:59 40 mg QDAY LISETTE Administration Polyethylene Glycol 17 gm 08/09/25 09:00 08/12/25 10:16 Polyethylene Glycol 17 Gm Packet GT 09/08/25 08:59 17 gm DAILY LISETTE Administration Pramipexole Dihydrochloride 1 mg 08/09/25 21:00 08/12/25 21:02 Pramipexole 0.25 Mg Tablet GT 09/08/25 20:59 1 mg HS LISETTE Administration Prednisone 15 mg 08/12/25 09:00 08/12/25 10:16 Prednisone 5 Mg Tablet GT 09/11/25 08:59 15 mg QDAY LISETTE Administration Sennosides 1 tab 08/09/25 09:00 08/12/25 10:17 Senna Tablet GT 09/08/25 08:59 1 tab QDAY LISETTE Administration Protocol Sodium Chloride 3 ml 08/01/25 02:11 Sodium Chloride Rt Sravani 0.9% 3 Ml Nebu INH 08/31/25 02:10 PRN PRN SOLN Venlafaxine HCl 150 mg 08/11/25 21:00 08/12/25 21:02 Venlafaxine 37.5 Mg Tablet GT 09/10/25 20:59 150 mg BID LISETTE Administration Plan Ms. Coffman is a 89-year-old female with past medical history of ILD/pulmonary fibrosis/chronic hypersensitivity pneumonitis with chronic respiratory failure on 2 L home oxygen and BiPAP currently on steroid taper, pulmonary arterial hypertension, heart failure with preserved ejection fraction, EF 60-65%, chronically bedbound, recurrent MDR UTIs, hypothyroidism, right breast cancer status postlumpectomy with lymph node dissection, insulin-dependent type 2 diabetes mellitus, GERD, depression, chronic back pain and nephrolithiasis who presented to [facility] emergency department on 08/01/2025 with a chief complaint of hypoxia. Cardiology was consulted for management of new onset Afib on EKG. #New Onset A Fib with RVR -diagnosed July 2025 Patient has SOB. Denies palpation or chest pain. EKG showed irregularly irregular rhythm rate 155 with RBBB. MAT ruled out. No history of atrial fibrillation CHADSVASc score 6 HASBLEED score 3. High Risk of major bleeding Was given diltiazem IV 20 mg x 1 and was started on diltiazem gtt. 5 mg/h which was increased to 10 mg/h as patient continued to remain tachycardic On August 03 patient was noted to be significantly tachycardic with low blood pressure, was given total IV digoxin 0.625 mg loading dose and now on Digoxin 0.125mg po qd - rate controlled now -On 08/11, Digoxin level was 1.1 Plan: -Continue Aspirin 81 mg GT qd, and Eliquis 5 mg p.o. twice daily - Continue Cardizem 90 mg GT 4 times daily, continue digoxin 0.125mg GT qd. -Recommend Holter monitor outpatient to assess A fib burden. 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 Pulmonology notes reviewed. Patient steroid taper is being managed by resident clinic outpatient with recommendations from pulmonology remotely. Patient has had multiple admissions for hypercapnia, currently using BiPAP every night with [facility]. Patient does have history of heart failure, HFpEF with a EF 60 to 65%, never seen a superintendent nonselling outpatient, patient not on diuretics outpatient per resident clinic note as patient has chronic hypercapnia and diuresis causes contraction alkalosis causing further respiratory decompensation. CXR (08/02/2025): extensive bilateral lung opacity, Mild enlargement cardiac contour with significant vascular congestion on physical exam 1+ edema noted bilateral hips. Patient's underlying respiratory status and lieu of ILD flare/aspiration pneumonia ECHO (08/02/2025) showed: 1. Left ventricle size is normal and systolic function is normal. Estimated ejection fraction is 60-65%. There is indeterminate diastolic function due to afib. There is mild concentric hypertrophy noted. 2. Right ventricle is not well visualized. RV function appears normal. 3. There is mild aortic valve sclerosis with no stenosis. 4. Mild thickening of the mitral valve leaflets. Mild MR, mild MAC. Mild TR. 5. Normal IVC with estimated RA pressure 3 mmHg. 6. Prior study from 12/29/2024. Plan: -Today patient looks hypovolemic, free water flushes per primary team/dietitian. -Strict intake and output, daily weight -Fluid restriction 1500ml, cardiac diet -Keep magnesium greater than 2 and potassium greater than 4 at all times -Management of respiratory disease per primary team #?Pulmonary Hypertension, Group III #Hx of Interstitial Lung Disease - Patient has established diagnosis of interstitial lung disease, pulmonary fibrosis secondary to chronic hypersensitivity pneumonitis - Patient had echo in the past with elevated right-sided pressures suggestive of pulmonary hypertension - Chest CT (08/01/2025): Pulmonary artery hypertension, Severe pneumonia and/or edema throughout the lungs - Recommend outpatient workup for pulmonary hypertension Plan: -BiPAP prn -Duoneb prn -Steroid taper per pulmonology # Hypertension In ED, 155/80 blood pressure well-controlled - Continue Cardizem 90 mg 4 times daily GT #Hypernatremia #Acute on chronic hypoxic hypercapnic respiratory failure, likely secondary to #Aspiration pneumonia #Sepsis #GPC bacteremia #Lactic acidosis #Leukocytosis #UTI #Insulin-dependent type 2 diabetes #Esophageal stenosis s/p dilation #Chronic normocytic anemia #Hyperlipidemia #Hypothyroidism #Chronic constipation #Depression #Parkinson -Management per Primary Hospitalist team Thank you for the consult and allowing to participate in the care of the patient. Cardiology will continue to follow. Case discussed with Attending Physician Dr. Steven Allen MD Internal Medicine PGY-2 Disclaimer: This note was dictated by speech recognition. Minor errors in infusion pharmacist may be present due to voice recognition software. Attending Provider Attestation/Addendum I reviewed the resident Doron Allen consultation progress note and agree with the resident findings and plan in the note above and have also edited the documentation to reflect my findings and plan. Steven Spencer M.D. Interventional Cardiology
[2025-08-13] MEDS: NAPH,KPH MBDB 1 PACKET (1.5 GM) GT (08:54)
[2025-08-13] MEDS: DIGOXIN 0.125 MG TABLET GT (08:54)
[2025-08-13] MEDS: VENLAFAXINE 37.5 MG TABLET 150 MG GT ×2 (08:54→20:36)
[2025-08-13] MEDS: Magnesium Sulfate 2 GM Ivpb 2 GM/50 ML BAG IV (08:54)
[2025-08-13] MEDS: POLYETHYLENE GLYCOL 17 GM PACKET GT (08:54)
[2025-08-13] MEDS: ASPIRIN 81 MG CHEW GT (08:54)
[2025-08-13] MEDS: PANTOPRAZOLE 40 MG TABLET PO (08:55)
[2025-08-13] MEDS: SOD POLYSTYRENE SULFON SUSP 15 GM/60 ML BTL GT (08:55)
[2025-08-13] MEDS: APIXABAN 2.5 MG TABLET 5 MG GT ×2 (08:55→20:37)
[2025-08-13 09:57] LABS: Base Excess, Venous 22 (-3-3); Lactate (Lactic Acid) 1.2 mMol/L (0.4-2.0); O2 Saturation, Venous 95 % (96-97); PCO2, Venous 53 mmHg (36-56); PO2, Venous 60 mmHg (15-58); pH, Venous 7.55 (7.33-7.66)
--- NOTE | 2025-08-13 10:16 | ESPR_ITS ---
<Statement entered by John Paul Warren MD - 08/15/25 08:04> I reviewed above note and agree with findings and plans. I have also personally examined the patient with medicine team and went over assessment and plan with medical team including finance accounting internship and resident physician. <Statement entered by Bucky Wolff MD - 08/13/25 11:14> Patient was examined and case was reviewed with team including attending physician. Note reviewed, I agree with most of its contents and agree with the patient's care as documented by Dr. Valente Patient seen and evaluated at the bedside found lethargic but alert easily stimulated to wake up. No overnight events reported. Vitals and labs reviewed. Kayexalate, insulin/dextrose given for mild hyperkalemia noted on a.m. labs. Patient is status post PEG tube placement currently pending tube feed goal rate of 65. Repeat blood cultures were sent currently pending will monitor until negative. Final disposition is to discharge the patient home when appropriate. Case discussed with my attending Dr. Kelvin Wolff MD PGY-2 Disclaimer: Despite multiple revisions, due to the dictation software being used, the document bellow may not be free of grammatical errors including phonetic/typographic errors. However, this does not deter from our commitment to providing health care in the patient's best interest in mind. Documentation for date of: 08/13/25 Subjective Subjective Interval history: - No acute events overnight. - Patient seen and examined at bedside this morning. - Per nursing staff, the patient appeared more lethargic compared to yesterday, initially responding to painful stimuli and later to verbal stimuli. VBG, lactic acid, and ammonia levels were obtained and were within normal limits. - Last bowel movement was on 08/11. Continue bowel regimen. - PEG tube feeds are at goal rate of 65 mL/hr and well tolerated. - Leukocytosis improving. Repeat blood culture pending. - Kayexalate and insulin with dextrose were administered for mild hyperkalemia. Exam Vital Signs Temp Pulse Resp BP Pulse Ox O2 Del Method O2 Flow Rate 97.6 F 109 H 33 H 138/68 H 94 L BiPAP 4 08/13/25 07:49 08/13/25 08:54 08/13/25 07:49 08/13/25 08:54 08/13/25 07:49 08/13/25 07:49 08/12/25 16:00 FiO2 50 08/13/25 07:14 Narrative Exam Physical Exam General: No acute distress. Obese habitus. On BiPAP. HEENT: Normocephalic, atraumatic, extraocular movements intact, pupils equal and reactive to light. Heart: Regular rate and rhythm, no murmurs, rubs or gallops. Lungs: Crackles to all lung zones. no WOB. Abdomen: Soft, nondistended, nontender. No guarding or rebound tenderness. PEG tube site dry and clean. Neurologic: No gross neurological deficit, and patient able to move all 4 extremities. Extremities: No clubbing or cyanosis. Bilateral swelling of hands. Skin: Warm and dry , scattered bruising of the UE at the hands. Objective Labs 08/13/25 04:30 08/13/25 04:30 Labs: Laboratory Results - last 24 hr 08/13/25 08/13/25 04:30 09:28 WBC 18.9 H D RBC 2.75 L Hgb 7.9 L Hct 28.0 L MCV 102 H MCH 28.7 MCHC 28.2 L RDW Std Deviation 63.1 H Plt Count 202 Neut % (Auto) 88 H Lymph % (Auto) 3 L [place] % (Auto) 5 Eos % (Auto) 0 Baso % (Auto) 0 Neut # (Auto) 16.6 H Lymph # (Auto) 0.5 L [place] # (Auto) 1.0 H Eos # (Auto) 0.1 Baso # (Auto) 0.1 Immature Gran # (Auto) 0.63 H Absolute Nucleated RBC 0.05 H Immature Gran % 3 H Nucleated RBC % 0 VBG pH 7.55 VBG pCO2 53 VBG pO2 60 H VBG O2 Sat (Radha) 95 L VBG Base Excess 22 H Sodium 139 Potassium 5.2 H Chloride 90 L Carbon Dioxide > 40.0 H Anion Gap 9 BUN 19 Creatinine 0.9 Estim Creat Clear Calc 50.6 L eGFR > 60 BUN/Creatinine Ratio 21 H Glucose 293 H D Calculated Osmolality 290 Lactic Acid 1.2 Calcium 10.8 H Phosphorus 2.1 L Magnesium 1.8 ABG Interpretation ABG results: 08/01/25 08/01/25 08/02/25 02:15 09:05 12:15 ABG pH 7.25 L 7.30 L ABG pCO2 74 H* 66 H ABG pO2 62 L 84 D ABG HCO3 33 H 32 H ABG O2 Saturation 95 95 ABG Base Excess 4 H 4 H VBG pH 7.27 L VBG pCO2 63 H VBG pO2 Not Performed. VBG Base Excess 0 08/03/25 08/04/25 08/08/25 10:44 12:13 22:13 ABG pH 7.33 L 7.33 L 7.48 H ABG pCO2 64 H 69 H 53 H ABG pO2 88 85 259 H ABG HCO3 34 H 36 H 40 H ABG O2 Saturation 95 95 99 H ABG Base Excess 6 H 8 H 14 H VBG pH VBG pCO2 VBG pO2 VBG Base Excess 08/09/25 08/09/25 08/10/25 01:48 04:15 05:00 ABG pH 7.47 H 7.42 7.41 ABG pCO2 55 H 64 H 63 H ABG pO2 189 H D 97 D 64 L D ABG HCO3 40 H 41 H 40 H ABG O2 Saturation 100 H 100 H 96 ABG Base Excess 15 H 15 H 13 H VBG pH VBG pCO2 VBG pO2 VBG Base Excess 08/13/25 09:28 ABG pH ABG pCO2 ABG pO2 ABG HCO3 ABG O2 Saturation ABG Base Excess VBG pH 7.55 VBG pCO2 53 VBG pO2 60 H VBG Base Excess 22 H Quality Measures Quality Measures VTE prophylaxis Advance care planning discussed with:: patient Assessment & Plan Assessment Current Active Medications: Generic Name Dose Route Start Last Admin Trade Name Freq PRN Reason Stop Dose Admin Acetaminophen 650 mg 08/01/25 05:05 Acetaminophen 325 Mg Tablet PO 08/31/25 05:04 Q6H PRN Fever >100.4 Apixaban 5 mg 08/08/25 21:00 08/13/25 08:55 Apixaban 2.5 Mg Tablet GT 09/07/25 20:59 5 mg BID LISETTE Administration Aspirin 81 mg 08/09/25 09:00 08/13/25 08:54 Aspirin 81 Mg Chew GT 09/08/25 08:59 81 mg DAILY LISETTE Administration Atorvastatin Calcium 10 mg 08/08/25 21:00 08/12/25 21:03 Atorvastatin Calcium 10 Mg Tablet GT 09/07/25 20:59 10 mg HS LISETTE Administration Dextrose 50 ml 08/01/25 05:16 Dextrose 50%-Water Inj 50 Ml Syringe IV 08/31/25 05:15 Q15MIN PRN BG <50 OR BG <70 & pt unresponsive Digoxin 0.125 mg 08/09/25 09:15 08/13/25 08:54 Digoxin 0.125 Mg Tablet GT 09/08/25 09:14 0.125 mg QDAY LISETTE Administration Diltiazem HCl 90 mg 08/12/25 17:00 08/13/25 05:02 Diltiazem 30 Mg Tablet GT 09/11/25 16:59 90 mg QID LISETTE Administration Glucagon 1 mg 08/01/25 05:16 Glucagon Inj 1 Mg Vial IM Q15MIN PRN BG <70, and no IV access Dexmedetomidine/Sodium Chloride 400 mcg in 100 mls @ 5.325 mls/hr 08/08/25 15:27 08/09/25 08:00 Precedex Ivpb IV 09/07/25 15:26 0 mcg/kg/hr .[id number] PRN 0 mls/hr Per PROTOCOL Titration Protocol 0.2 MCG/KG/HR Magnesium Sulfate 2 gm in 50 mls @ 25 mls/hr 08/13/25 08:18 08/13/25 08:54 Magnesium Sulfate Ivpb IV 08/13/25 10:17 25 mls/hr X1 ONE Administration Insulin Degludec 20 unit 08/12/25 21:00 08/12/25 21:23 Insulin Degludec 5 Unit/0.05 Ml (Per 5 Units) SC 09/11/25 20:59 20 unit HS LISETTE Administration Insulin Human Lispro 0 unit 08/08/25 12:00 08/13/25 05:25 Insulin Lispro (Admelog) 1 Unit/0.01 Ml Unit SC 09/07/25 11:59 3 unit Q6HR LISETTE Administration Protocol Ipratropium [place] 0.5 mg 08/02/25 17:04 08/09/25 18:51 Ipratropium Rt 0.5 Mg/ 2.5 Ml Nebu INH 09/01/25 17:03 0.5 mg Q6HR PRN Administration SHORTNESS OF BREATH Protocol Levalbuterol HCl 0.63 mg 08/02/25 17:04 08/09/25 18:51 Levalbuterol Rt 0.63 Mg/3 Ml Nebu INH 09/01/25 17:03 0.63 mg Q6H PRN Administration WHEEZING Protocol Levothyroxine Sodium 100 mcg 08/09/25 06:00 08/13/25 05:02 Levothyroxine Sodium 100 Mcg Tablet GT 09/08/25 05:59 100 mcg ACBR LISETTE Administration Pantoprazole Sodium 40 mg 08/12/25 09:00 08/13/25 08:55 Pantoprazole 40 Mg Tablet PO 09/11/25 08:59 40 mg QDAY LISETTE Administration Polyethylene Glycol 17 gm 08/09/25 09:00 08/13/25 08:54 Polyethylene Glycol 17 Gm Packet GT 09/08/25 08:59 17 gm DAILY LISETTE Administration Pramipexole Dihydrochloride 1 mg 08/09/25 21:00 08/12/25 21:02 Pramipexole 0.25 Mg Tablet GT 09/08/25 20:59 1 mg HS LISETTE Administration Prednisone 15 mg 08/12/25 09:00 08/13/25 08:54 Prednisone 5 Mg Tablet GT 09/11/25 08:59 15 mg QDAY LISETTE Administration Sennosides 1 tab 08/09/25 09:00 08/13/25 08:55 Senna Tablet GT 09/08/25 08:59 1 tab QDAY LISETTE Administration Protocol Sodium Chloride 3 ml 08/01/25 02:11 Sodium Chloride Rt Sravani 0.9% 3 Ml Nebu INH 08/31/25 02:10 PRN PRN SOLN Venlafaxine HCl 150 mg 08/11/25 21:00 08/13/25 08:54 Venlafaxine 37.5 Mg Tablet GT 09/10/25 20:59 150 mg BID LISETTE Administration Plan 89-year-old female with chronic ILD/pulmonary fibrosis with chronic CO2 retention on home BiPAP, HFpEF, IDDM, and esophageal stenosis, admitted for acute on chronic hypoxic hypercapnic respiratory failure secondary to aspiration pneumonia, complicated by sepsis from Pseudomonas UTI, new-onset atrial fibrillation with RVR, severe dysphagia requiring NPO status and NG tube, and limited respiratory reserve with inability to tolerate sustained wean from BiPAP. #Esophageal stenosis s/p dilation (08/08/25) #S/p PEG tube placement (08/08/25) - s/p EGD with dilation for dysphagia secondary to esophageal stenosis on 02/08/2025. - GI recommended checking TSH and T4 to make sure patient is on adequate supplement as hypothyroidism can cause dysphagia. Both within normal range. - Persistent dysphagia is a major contributor to recurrent aspiration and respiratory failure. - 08/08/25: esophageal dilation + PEG tube placement. Plan: * Extensive [id number] discussion held with patient?s nephew, Jg, regarding risks, benefits, and alternatives to intervention, including hospice and palliative care. * Family understands the high risk of respiratory failure and prolonged intubation. * Family elects to proceed with EGD under monitored anesthesia care (MAC) despite elevated procedural risk. * Ongoing aspiration is suspected to be driven by severe dysphagia from esophageal stenosis, contributing to recurrent respiratory decompensation. * GI discussed that definitive options are limited to esophageal dilation or PEG tube placement, both of which require intubation and sedation. * Pulmonology has expressed concern that given the patient?s chronic pulmonary disease and BiPAP dependence, safe extubation following the procedure may not be possible. * Plan for EGD w/ PEG tube 08/08/[address] Peters under [place], may require ICU stay in cannot be safely extubated. --> downgraded to Medsurg 08/10/25. * Tube feed initated. At goal rate 65ml/hr. Water flush 30ml/hr x 22hrs as need if not on IV. TF to be hold for one hour before and after levothyroxine. #Acute on chronic hypoxic hypercapnic respiratory failure, likely secondary to #Aspiration pneumonia #Pulmonary arterial hypertension #Interstitial lung disease #Pulmonary fibrosis - Known history of chronic interstitial lung disease and pulmonary fibrosis, contributing to chronic respiratory failure, chronic CO2 retention, and the need for BiPAP and home oxygen (2L). - Current acute exacerbation appears to be triggered by aspiration, likely exacerbated by recent intensified coughing after meals. The patient had worsening respiratory distress following dinner, with increasing cough and suspected aspiration of food. - Initial lactate was elevated at 2.4 --> 2.7 --> 2.3. Given the hypoxia and respiratory failure, the lactic acidosis may be due to tissue hypoperfusion and/or poor oxygenation. - Initial ABG showed pH 7.25, pCO2 74, pO2 62, bicarb 33, represents respiratory acidosis. - CXR 08/01: extensive bilateral pneumonia, prominent vascular congestion. - Patient is currently on a prednisone taper for ILD. - Patient failed ST swallow screen. - EGD and esophageal dilation on 02/08/25 for esophageal stenosis. - ABG 08/03: pH 7.33, pCO2 64, HCO3 34. Plan: * Pulmonology consulted, patient deemed high risk for intubation and prolonged ventilator dependence. * Continue strict NPO status and aspiration precautions. * Switched DuoNebs to Levalbuterol as patient is tachycardic. * Continuous pulse oximetry to closely monitor oxygen saturation. * Aspiration precautions. * Switched Prednisone 20mg PO QD to Methylprednisolone 16 mg IV QD as patient is NPO. Given the patient's history of interstitial lung disease, the steroid taper should proceed as planned, maintaining the current dose for 1 more week before reassessment. * Monitor for signs of worsening pneumonia or other complications. * Pulmonology has evaluated the patient and expressed concern that intubation for procedures may result in prolonged mechanical ventilation with high risk of inability to safely extubate, given chronic lung disease and BiPAP dependence. * Continue BiPAP all the time now to maintain O2 sat. #Sepsis #Staphylococcus epidermidis bacteremia #Pseudomonas aeruginosa UTI #Lactic acidosis #Leukocytosis - Etiology: Staphylococcus epidermidis bacteremia with suspected urinary tract infection as the source? - Lactate: 2.4 --> 2.7 --> 2.3. - WBC 23.2 on admission. - Blood culture 08/01: 2/2 GPC bacteremia. Staphylococcus epidermidis. - UA: 1+ protein, 44 RBC, 76 WBC, amorphous crystals, budding yeast, leukocyte esterase positive. Previous culture was positive for pansensitive Klebsiella Ozaenae. - Urine culture 08/01: Pseudomonas aeruginosa. Sensitive to Zosyn. - CXR: extensive bilateral pneumonia, prominent vascular congestion. - Fluids: 30 mL/kg, 2L of LR given in ED. - Blood culture 08/03: Yeast. Received one dose of Micafungin 50 mg. - Blood culture 08/05: NGTD Plan: * Infectious Disease consulted, recommend continue Zosyn at this time vs transition to Levofloxacin. * Stop Vancomycin * No further antifungal therapy recommended after single dose of micafungin. * Zosyn 2.25 g every 8 hours for UTI (08/01-08/08). * Oxygen / Ventilation: BiPAP. * Renal: strict I&O, avoid nephrotoxins. * CBC/BMP daily or more frequent if unstable. * Monitor organ dysfunction resolution or progression. * Continue to monitor repeat blood cultures and clinical status. * Pending Bcx ordered 08/12/25. #New onset Atrial fibrillation with RVR - EKG on 08/02 showed irregularly irregular rhythm rate 155 with RBBB. - No history of atrial fibrillation. - CHADSVASc score 6. - HASBLEED score 3. High Risk of major bleeding. - Was given diltiazem IV 20 mg x 1 and was started on diltiazem gtt. 5 mg/h which was increased to 10 mg/h as patient continued to remain tachycardic. - Three doses of digoxin (0.25 mg x2, 0.125 mg x1) given on 08/03 for tachycardia. Plan: * Cardiology consulted - appreciate recs. * ASA 81mg GT QD * Eliquis 5mg GT BID * Increase Diltiazem 90 mg GT QID per cardio recs. * IV digoxin 0.125 GT * Check digoxin level 08/10 --> 1.2 * Keep potassium greater than 4 and magnesium greater than 2 at all times. #Hypernatremia (resolved) #Hyperkalemia - On admission, sodium 148 and potassium 5.2. - Likely secondary to decreased oral intake, lack of insulin, or hyperglycemia. - Patient received fluids in the ED and will start receiving insulin sliding scale. - Sodium continues to uptrend, peak at 153 on 08/04. - D5W given 08/04, sodium 153 --> 151. Plan: * Daily lab for monitoring. * Kayexalate and insulin with dextrose were administered for mild hyperkalemia on 08/13. #NSTEMI - Likely secondary to demand ischemia. - Troponin of 0.051 --> 0.030. - EKG showed sinus tachycardia with a rate of 131 QTc 473, widened upright QRS in V1 may represent right bundle branch block, No acute ST segment changes in other leads Plan: * Continue to monitor for chest pain. #Insulin-dependent type 2 diabetes - Per caregiver the patient is on 35 units of Lantus every morning, sliding scale, and 8 units regular 3 times daily with meals. - Hemoglobin A1c 2 months ago was 6.4. - Glucose on admission was 241. Plan: * Insulin degludec 20 units QD. * Insulin sliding scale. * Carb consistent diet once patient passes swallow eval. #Chronic normocytic anemia - Hemoglobin 11.8, MCV 101. - Likely secondary to anemia of chronic disease secondary to history of breast cancer and interstitial lung disease. - No suspicion for active bleed at this time. Plan: * No direct intervention at this time. * Monitor CBC. #Chronic diastolic CHF, HFpEF - Echo from 12/2024 showed EF 65%. Trace mitral and trace tricuspid regurgitation, No wall motion abnormalities noted. - BNP 193. - CXR (08/02/2025): extensive bilateral lung opacity, Mild enlargement cardiac contour with significant vascular congestion on physical exam 1+ edema noted bilateral hips. - Patient's underlying respiratory status and lieu of ILD flare/aspiration pneumonia. - Echo 08/02/25: ejection fraction is 60-65%. Plan: * Strict I and Os. * Fluid restriction 1500ml. * Patient is not on diuretics outpatient because of chronic hypercapnia and diuresis can cause contraction alkalosis causing further respiratory decompensation. * Hold diuresis for now as patient does not seemed to be fluid overloaded. #Hyperlipidemia Plan: * Continue atorvastatin 10 mg GT #Hypothyroidism - Home medication: Levothyroxine 100 mcg daily. Plan: * Levothyroxine 100 mcg GT * TF to be hold for one hour before and after levothyroxine. #Chronic constipation - Per caregiver, the patient's last bowel movement was 07/30/2025. - Last bowel movement 08/03. - KUB 08/04: large amounts of stool throughout the colon. Plan: * Daily senna and MiraLAX. #Depression Plan: * On Venlafaxine 150 mg GT BID. #Parkinson Plan: * Hold home pramipexole 1 mg GT Health Maintenance Disposition: tele, PEG tube placement DVT prophylaxis: Eliquis GI prophylaxis: Pantoprazole 40 mg IV daily Diet: NPO [place]: In place Lines: Peripheral IV, PEG tube, Central line CODE STATUS: DNR/DNI --- Patient plan of care was discussed with the senior resident, Dr Ulises Wolff, and attending physician, Dr. Warren. Eugene Valente, DO PGY-1
[2025-08-13 10:17] LABS: Ammonia < 10 uMol/L (11-32)
[2025-08-13] MEDS: DEXTROSE 50%-WATER INJ 50 ML SYRINGE IVP (10:34)
[2025-08-13] MEDS: INSULIN HUM REGULAR 1 UNIT/0.01 ML (PER UNIT) 5 UNIT IV (10:36)
--- NOTE | 2025-08-13 15:00 | ESPR_ITS ---
Documentation for date of: 08/13/25 Subjective Subjective Interval history: PEG site looks good On and off on the BiPAP Exam Vital Signs Temp Pulse Resp BP Pulse Ox O2 Del Method O2 Flow Rate 97.6 F 104 H 32 H 156/66 H 95 BiPAP 4 08/13/25 11:56 08/13/25 12:00 08/13/25 11:56 08/13/25 11:56 08/13/25 11:56 08/13/25 11:56 08/13/25 08:00 FiO2 45 08/13/25 10:52 Objective Labs 08/13/25 04:30 08/13/25 04:30 Labs: Laboratory Results - last 24 hr 08/13/25 08/13/25 04:30 09:28 WBC 18.9 H D RBC 2.75 L Hgb 7.9 L Hct 28.0 L MCV 102 H MCH 28.7 MCHC 28.2 L RDW Std Deviation 63.1 H Plt Count 202 Neut % (Auto) 88 H Lymph % (Auto) 3 L [place] % (Auto) 5 Eos % (Auto) 0 Baso % (Auto) 0 Neut # (Auto) 16.6 H Lymph # (Auto) 0.5 L [place] # (Auto) 1.0 H Eos # (Auto) 0.1 Baso # (Auto) 0.1 Immature Gran # (Auto) 0.63 H Absolute Nucleated RBC 0.05 H Immature Gran % 3 H Nucleated RBC % 0 VBG pH 7.55 VBG pCO2 53 VBG pO2 60 H VBG O2 Sat (Radha) 95 L VBG Base Excess 22 H Sodium 139 Potassium 5.2 H Chloride 90 L Carbon Dioxide > 40.0 H Anion Gap 9 BUN 19 Creatinine 0.9 Estim Creat Clear Calc 50.6 L eGFR > 60 BUN/Creatinine Ratio 21 H Glucose 293 H D Calculated Osmolality 290 Lactic Acid 1.2 Calcium 10.8 H Phosphorus 2.1 L Magnesium 1.8 Ammonia < 10 L Impressions Impression: Dysphagia status post endoscopic dilatation some improvement Failure to thrive requiring PEG placement Hypoxic respiratory failure requiring recurrent BiPAP Continue supportive care ABG Interpretation ABG results: 08/01/25 08/01/25 08/02/25 02:15 09:05 12:15 ABG pH 7.25 L 7.30 L ABG pCO2 74 H* 66 H ABG pO2 62 L 84 D ABG HCO3 33 H 32 H ABG O2 Saturation 95 95 ABG Base Excess 4 H 4 H VBG pH 7.27 L VBG pCO2 63 H VBG pO2 Not Performed. VBG Base Excess 0 08/03/25 08/04/25 08/08/25 10:44 12:13 22:13 ABG pH 7.33 L 7.33 L 7.48 H ABG pCO2 64 H 69 H 53 H ABG pO2 88 85 259 H ABG HCO3 34 H 36 H 40 H ABG O2 Saturation 95 95 99 H ABG Base Excess 6 H 8 H 14 H VBG pH VBG pCO2 VBG pO2 VBG Base Excess 08/09/25 08/09/25 08/10/25 01:48 04:15 05:00 ABG pH 7.47 H 7.42 7.41 ABG pCO2 55 H 64 H 63 H ABG pO2 189 H D 97 D 64 L D ABG HCO3 40 H 41 H 40 H ABG O2 Saturation 100 H 100 H 96 ABG Base Excess 15 H 15 H 13 H VBG pH VBG pCO2 VBG pO2 VBG Base Excess 08/13/25 09:28 ABG pH ABG pCO2 ABG pO2 ABG HCO3 ABG O2 Saturation ABG Base Excess VBG pH 7.55 VBG pCO2 53 VBG pO2 60 H VBG Base Excess 22 H Assessment & Plan A&P Narrative dnr status seems to be at baseline wbc may be steroid related multiple listed allergies. prior id eval in may noted. abn ua in an 89 y/o lady with pos cx noted. not clear if she followed advice for vaginal estrogen in may. ild hx noted with hypercapnea. confounding things a bit. is in house frequently on steroids. at most low grade temps soon after arrival. wbc may be related to steroids but is done popularly on a daily basis. nasal mrsa neg. so mrsa an unlikely player in pneumonia bc with coag neg and repeats appear to be neg for any staph. line placed rt chest approx 08/03 so is fast for yeast. echo neg. no objection to restarting micafungin but ok to leave her off as well no cough noted. no notable fever but is on steriods. best fever reducers on the planet but have other se's will see again prn Time Spent With Patient Time: Total time spent is greater than 50% in coordination of care (as documented) at patient's floor/unit and/or counseling patient:
[2025-08-13] MEDS: PRAMIPEXOLE 0.25 MG TABLET 1 MG GT (20:36)
[2025-08-13] MEDS: ATORVASTATIN CALCIUM 10 MG TABLET GT (20:38)
[2025-08-13] MEDS: INSULIN DEGLUDEC 5 UNIT/0.05 ML (PER 5 UNITS) 20 UNIT SC (20:45)
[2025-08-14] VITALS (19 sets, daily range): BP systolic 109–163; BP diastolic 36–95; PULSE 99–118; RESP 10–30; TEMP 36.3–36.7; O2SAT 92–96; BMI 34.8
[2025-08-14] MEDS: LEVOTHYROXINE SODIUM 100 MCG TABLET GT (05:20)
[2025-08-14] MEDS: DILTIAZEM 30 MG TABLET 90 MG GT ×4 (05:20→20:43)
[2025-08-14] MEDS: INSULIN LISPRO (AdmeLOG) 1 UNIT/0.01 ML UNIT SC ×3 (05:27→19:18)
[2025-08-14 06:30] LABS: Basophils # (Auto) 0.1 Thou/mm3 (0.0-0.2); Basophils % (Auto) 0 % (0-2.5); Eosinophils # (Auto) 0.1 Thou/mm3 (0.0-0.5); Eosinophils % (Auto) 0 % (0-10); Hematocrit 25.3 % (36.0-46.0); Immature Granulocytes Auto 0.75 Thou/mm3 (0.00-0.00); Lymphocytes # (Auto) 0.4 Thou/mm3 (1.0-4.8); Lymphocytes % (Auto) 2 % (10-50); Mean Corpuscular HGB Conc 28.1 g/dl (31.0-37.0); Mean Corpuscular Hemoglobin 28.6 pg (25.0-35.0); Mean Corpuscular Volume 102 fL (80-100); Monocytes # (Auto) 1.0 Thou/mm3 (0.0-0.8); Monocytes % (Auto) 6 % (0-12); Neutrophils # (Auto) 13.4 Thou/mm3 (1.8-7.7); Neutrophils % (Auto) 86 % (37-80); Nucleated Red Blood Cell # 0.05 Thou/mm3 (0.00-0.00); Nucleated Red Blood Cell % 0 /100 WBC (0); Platelet Count 184 Thou/mm3 (140-440); RDW Standard Deviation 62.2 fL (36.4-46.3); Red Blood Count 2.48 Miln/mm3 (4.00-5.20); White Blood Count 15.6 Thou/mm3 (3.6-11.0)
[2025-08-14 06:31] LABS: Hemoglobin 7.1 g/dL (12.0-16.0)
[2025-08-14 07:25] LABS: Anion Gap 10 (7-16); BUN/Creatinine Ratio 26 Ratio (12-20); Blood Urea Nitrogen 23 mg/dL (9-23); Calcium 10.5 mg/dL (8.3-10.6); Carbon Dioxide > 40.0 mMol/L (20.0-31.0); Chloride 88 mMol/L (98-107); Creatinine (Component) 0.9 mg/dL (0.6-1.3); Estimated Creatinine Clearance 50.7 mL/min (>60); Glucose 358 mg/dL (74-106); Magnesium 1.9 mg/dL (1.6-2.6); Osmolality,Calculated 293 (275-295); Phosphorous 2.9 mg/dL (2.4-5.1); Potassium 5.1 mMol/L (3.4-5.1); Sodium 138 mMol/L (136-145); eGFR > 60 See Note
[2025-08-14] MEDS: POLYETHYLENE GLYCOL 17 GM PACKET GT (10:00)
[2025-08-14] MEDS: APIXABAN 2.5 MG TABLET 5 MG GT ×2 (10:00→20:36)
[2025-08-14] MEDS: PANTOPRAZOLE 40 MG TABLET PO (10:01)
[2025-08-14] MEDS: ASPIRIN 81 MG CHEW GT (10:01)
[2025-08-14] MEDS: VENLAFAXINE 37.5 MG TABLET 150 MG GT ×2 (10:02→20:36)
[2025-08-14] MEDS: DIGOXIN 0.125 MG TABLET GT (10:02)
--- NOTE | 2025-08-14 10:25 | ESPR_ITS ---
Documentation for date of: 08/14/25 Subjective Subjective Interval history: Patient seen and examined at bedside, continues to remain on BiPAP, is somnolent. Patient's heart rate continues to be in the range 100?110s, discussed with primary organic preparation analyst regarding possible transition to amiodarone and discontinuing digoxin. Caretakers will discussed with main decision maker nephew regarding the switch. Family decided to proceed with amiodarone gtt. Will discontinue digoxin, will transition to amiodarone 200 mg p.o. twice daily once heart rate is controlled. Labs and vitals reviewed, bicarb greater than 40, will schedule for Diamox 500 mg x 1 Magnesium was repleted. Patient is on both aspirin and Eliquis, will stop aspirin, no history of CAD and PAD and patient was started on Eliquis Exam Vital Signs Temp Pulse Resp BP Pulse Ox O2 Del Method O2 Flow Rate 97.4 F 116 H 29 H 144/67 H 93 L BiPAP 4 08/14/25 08:00 08/14/25 10:21 08/14/25 10:21 08/14/25 10:02 08/14/25 10:21 08/14/25 04:00 08/13/25 20:00 FiO2 50 08/14/25 10:21 Narrative Exam General: Chronically ill-appearing woman, obese habitus, on bipap HEENT: Normocephalic, atraumatic. Heart:normal S1 and S2, no murmurs. Irregular rhythm, rate 110s Lungs: Minimal wheezing bilaterally Abdomen: Obese, firm, distended, tender. No guarding or rebound tenderness. Neurologic: Alert and oriented x3, no gross neurological deficit, and patient able to move all 4 extremities. Extremities: 1+ lower extremity edema and 1+ bilateral upper extremity edema, clubbing or cyanosis. No joint deformity. Skin: Warm and dry without rashes. : Queen in place, draining yellow urine. Objective Labs 08/14/25 11:11 08/14/25 06:10 Labs: Laboratory Results - last 24 hr 08/14/25 06:10 WBC 15.6 H RBC 2.48 L Hgb 7.1 L Hct 25.3 L MCV 102 H MCH 28.6 MCHC 28.1 L RDW Std Deviation 62.2 H Plt Count 184 Neut % (Auto) 86 H Lymph % (Auto) 2 L [place] % (Auto) 6 Eos % (Auto) 0 Baso % (Auto) 0 Neut # (Auto) 13.4 H Lymph # (Auto) 0.4 L [place] # (Auto) 1.0 H Eos # (Auto) 0.1 Baso # (Auto) 0.1 Immature Gran # (Auto) 0.75 H Absolute Nucleated RBC 0.05 H Immature Gran % 5 H Nucleated RBC % 0 Sodium 138 Potassium 5.1 Chloride 88 L Carbon Dioxide > 40.0 H Anion Gap 10 BUN 23 Creatinine 0.9 Estim Creat Clear Calc 50.7 L eGFR > 60 BUN/Creatinine Ratio 26 H Glucose 358 H D Calculated Osmolality 293 Calcium 10.5 Phosphorus 2.9 Magnesium 1.9 ABG Interpretation ABG results: 08/01/25 08/01/25 08/02/25 02:15 09:05 12:15 ABG pH 7.25 L 7.30 L ABG pCO2 74 H* 66 H ABG pO2 62 L 84 D ABG HCO3 33 H 32 H ABG O2 Saturation 95 95 ABG Base Excess 4 H 4 H VBG pH 7.27 L VBG pCO2 63 H VBG pO2 Not Performed. VBG Base Excess 0 08/03/25 08/04/25 08/08/25 10:44 12:13 22:13 ABG pH 7.33 L 7.33 L 7.48 H ABG pCO2 64 H 69 H 53 H ABG pO2 88 85 259 H ABG HCO3 34 H 36 H 40 H ABG O2 Saturation 95 95 99 H ABG Base Excess 6 H 8 H 14 H VBG pH VBG pCO2 VBG pO2 VBG Base Excess 08/09/25 08/09/25 08/10/25 01:48 04:15 05:00 ABG pH 7.47 H 7.42 7.41 ABG pCO2 55 H 64 H 63 H ABG pO2 189 H D 97 D 64 L D ABG HCO3 40 H 41 H 40 H ABG O2 Saturation 100 H 100 H 96 ABG Base Excess 15 H 15 H 13 H VBG pH VBG pCO2 VBG pO2 VBG Base Excess 08/13/25 09:28 ABG pH ABG pCO2 ABG pO2 ABG HCO3 ABG O2 Saturation ABG Base Excess VBG pH 7.55 VBG pCO2 53 VBG pO2 60 H VBG Base Excess 22 H Quality Measures Quality Measures VTE prophylaxis Advance care planning discussed with:: patient Assessment & Plan Assessment Current Active Medications: Generic Name Dose Route Start Last Admin Trade Name Freq PRN Reason Stop Dose Admin Acetaminophen 650 mg 08/01/25 05:05 Acetaminophen 325 Mg Tablet PO 08/31/25 05:04 Q6H PRN Fever >100.4 Apixaban 5 mg 08/08/25 21:00 08/14/25 10:00 Apixaban 2.5 Mg Tablet GT 09/07/25 20:59 5 mg BID LISETTE Administration Aspirin 81 mg 08/09/25 09:00 08/14/25 10:01 Aspirin 81 Mg Chew GT 09/08/25 08:59 81 mg DAILY LISETTE Administration Atorvastatin Calcium 10 mg 08/08/25 21:00 08/13/25 20:38 Atorvastatin Calcium 10 Mg Tablet GT 09/07/25 20:59 10 mg HS LISETTE Administration Dextrose 50 ml 08/01/25 05:16 Dextrose 50%-Water Inj 50 Ml Syringe IV 08/31/25 05:15 Q15MIN PRN BG <50 OR BG <70 & pt unresponsive Digoxin 0.125 mg 08/09/25 09:15 08/14/25 10:02 Digoxin 0.125 Mg Tablet GT 09/08/25 09:14 0.125 mg QDAY LISETTE Administration Diltiazem HCl 90 mg 08/12/25 17:00 08/14/25 05:20 Diltiazem 30 Mg Tablet GT 09/11/25 16:59 90 mg QID LISETTE Administration Glucagon 1 mg 08/01/25 05:16 Glucagon Inj 1 Mg Vial IM Q15MIN PRN BG <70, and no IV access Dexmedetomidine/Sodium Chloride 400 mcg in 100 mls @ 5.325 mls/hr 08/08/25 15:27 08/09/25 08:00 Precedex Ivpb IV 09/07/25 15:26 0 mcg/kg/hr .[id number] PRN 0 mls/hr Per PROTOCOL Titration Protocol 0.2 MCG/KG/HR Insulin Degludec 30 unit 08/14/25 21:00 Insulin Degludec 5 Unit/0.05 Ml (Per 5 Units) SC 09/13/25 20:59 HS LISETTE Insulin Human Lispro 0 unit 08/08/25 12:00 08/14/25 05:27 Insulin Lispro (Admelog) 1 Unit/0.01 Ml Unit SC 09/07/25 11:59 4 unit Q6HR LISETTE Administration Protocol Ipratropium [place] 0.5 mg 08/02/25 17:04 08/09/25 18:51 Ipratropium Rt 0.5 Mg/ 2.5 Ml Nebu INH 09/01/25 17:03 0.5 mg Q6HR PRN Administration SHORTNESS OF BREATH Protocol Levalbuterol HCl 0.63 mg 08/02/25 17:04 08/09/25 18:51 Levalbuterol Rt 0.63 Mg/3 Ml Nebu INH 09/01/25 17:03 0.63 mg Q6H PRN Administration WHEEZING Protocol Levothyroxine Sodium 100 mcg 08/09/25 06:00 08/14/25 05:20 Levothyroxine Sodium 100 Mcg Tablet GT 09/08/25 05:59 100 mcg ACBR LISETTE Administration Pantoprazole Sodium 40 mg 08/12/25 09:00 08/14/25 10:01 Pantoprazole 40 Mg Tablet PO 09/11/25 08:59 40 mg QDAY LISETTE Administration Polyethylene Glycol 17 gm 08/09/25 09:00 08/14/25 10:00 Polyethylene Glycol 17 Gm Packet GT 09/08/25 08:59 17 gm DAILY LISETTE Administration Pramipexole Dihydrochloride 1 mg 08/09/25 21:00 08/13/25 20:36 Pramipexole 0.25 Mg Tablet GT 09/08/25 20:59 1 mg HS LISETTE Administration Prednisone 15 mg 08/12/25 09:00 08/14/25 10:01 Prednisone 5 Mg Tablet GT 09/11/25 08:59 15 mg QDAY LISETTE Administration Sennosides 1 tab 08/09/25 09:00 08/14/25 10:01 Senna Tablet GT 09/08/25 08:59 1 tab QDAY LISETTE Administration Protocol Sodium Chloride 3 ml 08/01/25 02:11 Sodium Chloride Rt Sravani 0.9% 3 Ml Nebu INH 08/31/25 02:10 PRN PRN SOLN Venlafaxine HCl 150 mg 08/11/25 21:00 08/14/25 10:02 Venlafaxine 37.5 Mg Tablet GT 09/10/25 20:59 150 mg BID LISETTE Administration Plan Ms. Coffman is a 89-year-old female with past medical history of ILD/pulmonary fibrosis/chronic hypersensitivity pneumonitis with chronic respiratory failure on 2 L home oxygen and BiPAP currently on steroid taper, pulmonary arterial hypertension, heart failure with preserved ejection fraction, EF 60-65%, chronically bedbound, recurrent MDR UTIs, hypothyroidism, right breast cancer status postlumpectomy with lymph node dissection, insulin-dependent type 2 diabetes mellitus, GERD, depression, chronic back pain and nephrolithiasis who presented to [facility] emergency department on 08/01/2025 with a chief complaint of hypoxia. Cardiology was consulted for management of new onset Afib on EKG. #New Onset A Fib with RVR -diagnosed July 2025 Patient has SOB. Denies palpation or chest pain. EKG showed irregularly irregular rhythm rate 155 with RBBB. MAT ruled out. No history of atrial fibrillation CHADSVASc score 6 HASBLEED score 3. High Risk of major bleeding Was given diltiazem IV 20 mg x 1 and was started on diltiazem gtt. 5 mg/h which was increased to 10 mg/h as patient continued to remain tachycardic On August 03 patient was noted to be significantly tachycardic with low blood pressure, was given total IV digoxin 0.625 mg loading dose and now on Digoxin 0.125mg po qd - rate controlled now -On 08/11, Digoxin level was 1.1 Plan: -Discussed with primary organic preparation analyst regarding switching digoxin to amiodarone considering patient's heart rate sustains in 110s, pending decision by family. -Continue Cardizem 90 mg GT 4 times daily -Continue Eliquis 5 mg twice daily, discontinued aspirin. -Recommend Holter monitor outpatient to assess A fib burden. 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 Pulmonology notes reviewed. Patient steroid taper is being managed by resident clinic outpatient with recommendations from pulmonology remotely. Patient has had multiple admissions for hypercapnia, currently using BiPAP every night with [employer]. Patient does have history of heart failure, HFpEF with a EF 60 to 65%, never seen a cruise consultant outpatient, patient not on diuretics outpatient per resident clinic note as patient has chronic hypercapnia and diuresis causes contraction alkalosis causing further respiratory decompensation. CXR (08/02/2025): extensive bilateral lung opacity, Mild enlargement cardiac contour with significant vascular congestion on physical exam 1+ edema noted bilateral hips. Patient's underlying respiratory status and lieu of ILD flare/aspiration pneumonia ECHO (08/02/2025) showed: 1. Left ventricle size is normal and systolic function is normal. Estimated ejection fraction is 60-65%. There is indeterminate diastolic function due to afib. There is mild concentric hypertrophy noted. 2. Right ventricle is not well visualized. RV function appears normal. 3. There is mild aortic valve sclerosis with no stenosis. 4. Mild thickening of the mitral valve leaflets. Mild MR, mild MAC. Mild TR. 5. Normal IVC with estimated RA pressure 3 mmHg. 6. Prior study from 12/29/2024. Plan: -Bicarb greater than 40, swelling noted 1+ bilateral upper extremity and 1+ around hips and dependent area, acetazolamide 500 mg x 1 -Strict intake and output, daily weight -Fluid restriction 1500ml, cardiac diet -Keep magnesium greater than 2 and potassium greater than 4 at all times -Management of respiratory disease per primary team #NSTEMI type II likely demand ischemia Patient presented with troponin elevation at 0.051, no troponin elevation however noted in the past patient on daily aspirin outpatient. Troponin eventually down trended to 0.030. Patient denied any chest pain Likely troponin elevation setting of demand ischemia secondary to underlying pulmonary disease and atrial fibrillation which was new onset. - Will consider outpatient stress testing -Will discontinue aspirin, continue Eliquis. - Monitor for chest pain #?Pulmonary Hypertension, Group III #Hx of Interstitial Lung Disease - Patient has established diagnosis of interstitial lung disease, pulmonary fibrosis secondary to chronic hypersensitivity pneumonitis - Patient had echo in the past with elevated right-sided pressures suggestive of pulmonary hypertension - Chest CT (08/01/2025): Pulmonary artery hypertension, Severe pneumonia and/or edema throughout the lungs - Recommend outpatient workup for pulmonary hypertension Plan: -BiPAP prn -Duoneb prn -Steroid taper per pulmonology # Hypertension In ED, 155/80 blood pressure well-controlled - Continue Cardizem 90 mg 4 times daily GT #Hypernatremia #Acute on chronic hypoxic hypercapnic respiratory failure, likely secondary to #Aspiration pneumonia #Sepsis #GPC bacteremia #Lactic acidosis #Leukocytosis #UTI #Insulin-dependent type 2 diabetes #Esophageal stenosis s/p dilation #Chronic normocytic anemia #Hyperlipidemia #Hypothyroidism #Chronic constipation #Depression #Parkinson -Management per Primary Hospitalist team Thank you for the consult and allowing to participate in the care of the patient. Cardiology will continue to follow. Case discussed with Attending Physician Dr. Steven Allen MD Internal Medicine PGY-2 Disclaimer: This note was dictated by speech recognition. Minor errors in launching pad mechanic may be present due to voice recognition software. Attending Provider Attestation/Addendum I have personally seen and examined the patient separately on the above date of service and discussed the plan of care with the resident. I reviewed the resident Dr. Doron Allen consultation progress note and agree with the resident findings and plan in the note above and have also edited the documentation to reflect my findings and plan. Steven Spencer M.D. Interventional Cardiology
--- NOTE | 2025-08-14 11:17 | ESPR_ITS ---
<Statement entered by John Paul Warren MD - 08/15/25 14:34> I reviewed above note and agree with findings and plans. I have also personally examined the patient with medicine team and went over assessment and plan with medical team including management intern and resident physician. <Statement entered by Bucky Wolff MD - 08/14/25 12:07> Patient was examined and case was reviewed with team including attending physician. Note reviewed, I agree with most of its contents and agree with the patient's care as documented by Dr. Combs Patient seen today at the bedside found awake and alert currently on BiPAP tolerating well. Vitals and labs reviewed. Noted to be mildly tachycardic rate of 90-110s is acceptable by Cardiology. Currently on Cardizem, Digoxin for Afib with RVR. Acetazolamide 500mg given x1. Overall improving in spite of guarded prognosis given her multiple comorbidities. Patient will likely benefit from hospice services will reach out to family in the am. Case discussed with my attending Dr. Kelvin Wolff MD PGY-2 Disclaimer: Despite multiple revisions, due to the dictation software being used, the document bellow may not be free of grammatical errors including phonetic/typographic errors. However, this does not deter from our commitment to providing health care in the patient's best interest in mind. Documentation for date of: 08/14/25 Subjective Subjective Interval history: 89-year-old female past medical history of interstitial lung disease, pulmonary fibrosis, chronic CO2 retention on 2 L home oxygen and BiPAP, HFpEF, bedbound, recurrent UTIs, hypothyroidism, right breast cancer status postlumpectomy, insulin-dependent type 2 diabetes, GERD, depression, and chronic back pain who presented to the ED in the size marker hours of 08/01/2025 with hypoxemia. Patient was on BiPAP and most history was gathered from the caregiver. Per the caregiver, patient ate lunch the day before and began to have coughing episodes. These episodes were intensified after the patient ate half of her dinner, at which time the caregiver took away the patient's food. Caregiver mentioned that the patient was coughing up phlegm with no food particles, and was concerned for aspiration and therefore called EMS. When the ambulance arrived it was reported that the patient was saturating in the high 30s. Per EMS the patient was saturating at 68% on 2 L nasal cannula and went up to the mid 80s after 2 albuterol treatments and route. Patient was admitted for acute on chronic hypoxic hypercapnic respiratory failure secondary to interstitial lung disease and possible aspiration pneumonia as well as UTI. 08/01/25: Patient was evaluated this morning with freelance operator present at the bedside. Patient is currently on BIPAP with a flow rate of 40, saturating at 93%. The patient is alert and oriented to person, place, and year, and reports no complaints at this time. Per freelance operator, patient has had several hospitalizations due to similar symptoms of shortness of breath and asymptomatic recurrent UTIs. Blood culture came back positive for gram positive cocci resembling staph in one of the bottles - started Vancomycin. 08/02/25: No acute events overnight. The patient was evaluated at the bedside this morning and was on BIPAP at 40%. Blood cultures from both bottles returned positive for gram-positive cocci, and vancomycin was initiated. An echocardiogram has been ordered and pending. Patient did not pass swallow screen yesterday. Speech therapy assessed the patient this morning and noted audible air after every swallow, followed by regurgitation that persisted for 15 minutes. The patient required oral suction with strong coughing. Desaturation occurred, dropping to 85%, accompanied by an elevated heart rate. As a result, the patient was placed NPO, and respiratory therapy was called for deep suctioning and to place the patient on high-flow oxygen. An ABG, CXR, and EKG were ordered. The CXR revealed significant bilateral pneumonia with an ARDS pattern, while the EKG showed atrial fibrillation with rapid ventricular response. On 02/08/25, the patient was seen by Dr. Peters for esophageal dilation of esophageal stenosis, and Dr. Peters has been consulted. Due to difficulty establishing IV access, plan to place central line. The patient requires heparin and diltiazem infusions for the atrial fibrillation with RVR. Cardiology has been consulted. 08/03/25: No acute events overnight. The patient was assessed at the bedside this morning. Initially on HFNC, the patient was weaned off and transitioned to BiPAP. A central line was placed today due to difficulty with IV access. Urine culture preliminary results show gram-negative rods, Zosyn will be continued. 09/19 blood culture was positive for Staphylococcus epidermidis, will repeat blood cultures and continue Vancomycin. The heart rate remains elevated despite diltiazem 10 mg and two doses of digoxin (0.25 mg x1, 0.125 mg x1), with no significant improvement in heart rate. Further recommendations are pending from cardiology. 08/04/25: No significant events overnight. The patient was seen this morning with the freelance operator at the bedside. Will speak with Dr. Jerez regarding the management of the patient's respiratory status, as he has been overseeing her care as her lead scientist. The patient is currently receiving methylprednisolone 16 mg IV and continues on BIPAP. Hypernatremia was noted on AM labs, and D5W was administered since the patient is on BIPAP and NPO, with an inability to place an NG tube for free water flushes. Will continue to trend sodium. Dr. Peters will perform an EGD once the patient's respiratory condition stabilizes. Cardiology is actively following the patient and will continue diltiazem and heparin drip for afib. Tachycardia has resolved. A KUB was ordered due to the patient's complaints of abdominal pain, which revealed a large stool burden. The patient's last bowel movement was yesterday. A water enema has been ordered. 08/05/25: No acute events overnight. A repeat blood culture grew 1/2 yeast, and the patient was given one dose of Micafungin. Infectious Disease was consulted. The patient remains hypernatremic following D5W administration yesterday. An NG tube will be placed to initiate free water flushes, with a free water deficit of 1.9L to reach a sodium goal of 145. Water flushes will be administered at 250cc every four hours. Sodium levels will continue to be monitored every 6 hours. Phosphate has been repleted. The patient remains on BiPAP, and Dr. Jerez recommends continuing steroids for lung support. 08/06/25: Patient seen and examined at bedside this morning. She is awake and able to nod yes/no but is limited in verbal communication due to BiPAP use. Denies chest pain. Reports ongoing shortness of breath when off BiPAP. Per nursing and respiratory therapy, patient was trialed on Oxymask at 7 L/min and was able to tolerate this for approximately 1.5 hours; however, she subsequently desaturated and required transition back to BiPAP. No new fevers or chills reported. Remains NPO and understands she is unable to eat or drink at this time. Family updated regarding current respiratory status and ongoing care plan. 08/07/25: NAOE. Plan for EGD with PEG tube today for correction nutritional support. Discussed with lead property caretaker at beside that there's a possibility that patient may require stay in the ICU if she cannot be safely extubated after general anesthesia. Na level stable at 144. Patient requires to be on BiPAP all the time at this point. 08/08/25: NAOE. EGD PEG placement postponed from yesterday to today @ 3pm. Discussed with patient at bedside again for the possibility for her to stay at ICU until she can be safely extubated. Na 144, stable. Pause Insulin Degludec today given glucose of 96 this morning and patient had not been eating. Maintanence D5NaCl started @60ml/hr, will d/c once patient start feeding via PEG tube. 08/08/2025 (ICU): Patient seen and examined at bedside. she was s/p egd with dilation and peg tube placement. she remains intubated and mechanically ventillated. on precedex and fent pushes for sedation. plan to trial spontaneous breathing trial tomorrow. optomize ventilation to get her to baseline co2 retention by monitoring pco2 or end tidal of around 37. goal is not to overventilate. et confirmed above the gt. peg tube feeds initiated at trickle rates per dietitian recs. 08/09/2025 (ICU): Patient seen and examined at bedside. She was placed on spontaneous breathing trial in the AM and was successfully extubated to Bipap. will give x1 lasix 20 IV dose. 08/10/2025 (ICU): Patient seen and examined at bedside. A and O x3, she passed swallow eval with speech therapist, was downgraded from ICU. No acute events overnight. tolerating peg tube feeds. [facility]. 08/11/25: NAOE. Pt on BiPAP when napping. RT was called for mask fitting, as patient seems to have a lot of airleak. Her current TF rate is at 40ml/hr. Goal is 65ml/hr. She's tolerating TF well, will continue to monitor, but patient can likely be discharged once TF reach the goal. Her diet was changed to dysphagia diet per speech therpist recommendation 08/12/25: NAOE. Will keep patient NPO now til discharge to prevent risk of aspiration. Patient is at goal for TF @ 65ml/hr, can be discharged tmr if tolerating well. Care givers educated on TF at bedside today by Dietrician. WBC increased to 25.2 today, however, afebrile. Bcx ordered, may consider restarting abx if WBC continue to be elevated. Patient will likely require to be on BiPAP at all time while at home. 08/13/25: NAOE. Per nursing staff, the patient appeared more lethargic compared to yesterday, initially responding to painful stimuli and later to verbal stimuli. VBG, lactic acid, and ammonia levels were obtained and were within normal limits. Last bowel movement was on 08/11. Continue bowel regimen. PEG tube feeds are at goal rate of 65 mL/hr and well tolerated. Leukocytosis improving. Repeat blood culture pending. Kayexalate and insulin with dextrose were administered for mild hyperkalemia. 08/14/25: NAOE. Tolerating TF well, at goal. BiPAP dependent. Insulin Degludec increased to 30U today (she takes 35U at home). WBC decreased to 15.6, afebrile. Bcx NGTD 24H. Patient is still tachycardic despite Cardizem dose adjustment from 60 to 90mg GT QID. Likely D/C tmr if HR stable. Will D/C central line and almodovar prior to dischage. Exam Vital Signs Temp Pulse Resp BP Pulse Ox O2 Del Method O2 Flow Rate 97.4 F 116 H 29 H 144/67 H 93 L BiPAP 4 08/14/25 08:00 08/14/25 10:21 08/14/25 10:21 08/14/25 10:02 08/14/25 10:21 08/14/25 04:00 08/13/25 20:00 FiO2 50 08/14/25 10:21 Narrative Exam General: A/O x 3. Obese habitus, BMI 37. S/p PEG tube. On BiPAP. HEENT: Normocephalic, atraumatic. Neck: Supple, thick neck. Cardiovascular: Tachycardic. Sinus rhythm. No murmurs, rubs, or gallops. Respiratory: Crackles to all lung zones. no WOB. Abdomen: Soft, nontender, nondistended. PEG tube intact. Skin: Warm and dry, scatterd bruising of the UE at the hands . Objective Labs 08/14/25 06:10 08/14/25 06:10 Labs: Laboratory Results - last 24 hr 08/14/25 06:10 WBC 15.6 H RBC 2.48 L Hgb 7.1 L Hct 25.3 L MCV 102 H MCH 28.6 MCHC 28.1 L RDW Std Deviation 62.2 H Plt Count 184 Neut % (Auto) 86 H Lymph % (Auto) 2 L Kent % (Auto) 6 Eos % (Auto) 0 Baso % (Auto) 0 Neut # (Auto) 13.4 H Lymph # (Auto) 0.4 L Kent # (Auto) 1.0 H Eos # (Auto) 0.1 Baso # (Auto) 0.1 Immature Gran # (Auto) 0.75 H Absolute Nucleated RBC 0.05 H Immature Gran % 5 H Nucleated RBC % 0 Sodium 138 Potassium 5.1 Chloride 88 L Carbon Dioxide > 40.0 H Anion Gap 10 BUN 23 Creatinine 0.9 Estim Creat Clear Calc 50.7 L eGFR > 60 BUN/Creatinine Ratio 26 H Glucose 358 H D Calculated Osmolality 293 Calcium 10.5 Phosphorus 2.9 Magnesium 1.9 ABG Interpretation ABG results: 08/01/25 08/01/25 08/02/25 02:15 09:05 12:15 ABG pH 7.25 L 7.30 L ABG pCO2 74 H* 66 H ABG pO2 62 L 84 D ABG HCO3 33 H 32 H ABG O2 Saturation 95 95 ABG Base Excess 4 H 4 H VBG pH 7.27 L VBG pCO2 63 H VBG pO2 Not Performed. VBG Base Excess 0 08/03/25 08/04/25 08/08/25 10:44 12:13 22:13 ABG pH 7.33 L 7.33 L 7.48 H ABG pCO2 64 H 69 H 53 H ABG pO2 88 85 259 H ABG HCO3 34 H 36 H 40 H ABG O2 Saturation 95 95 99 H ABG Base Excess 6 H 8 H 14 H VBG pH VBG pCO2 VBG pO2 VBG Base Excess 08/09/25 08/09/25 08/10/25 01:48 04:15 05:00 ABG pH 7.47 H 7.42 7.41 ABG pCO2 55 H 64 H 63 H ABG pO2 189 H D 97 D 64 L D ABG HCO3 40 H 41 H 40 H ABG O2 Saturation 100 H 100 H 96 ABG Base Excess 15 H 15 H 13 H VBG pH VBG pCO2 VBG pO2 VBG Base Excess 08/13/25 09:28 ABG pH ABG pCO2 ABG pO2 ABG HCO3 ABG O2 Saturation ABG Base Excess VBG pH 7.55 VBG pCO2 53 VBG pO2 60 H VBG Base Excess 22 H Quality Measures Quality Measures VTE prophylaxis Advance care planning discussed with:: patient Assessment & Plan Assessment Current Active Medications: Generic Name Dose Route Start Last Admin Trade Name Freq PRN Reason Stop Dose Admin Acetaminophen 650 mg 08/01/25 05:05 Acetaminophen 325 Mg Tablet PO 08/31/25 05:04 Q6H PRN Fever >100.4 Apixaban 5 mg 08/08/25 21:00 08/14/25 10:00 Apixaban 2.5 Mg Tablet GT 09/07/25 20:59 5 mg BID LISETTE Administration Aspirin 81 mg 08/09/25 09:00 08/14/25 10:01 Aspirin 81 Mg Chew GT 09/08/25 08:59 81 mg DAILY LISETTE Administration Atorvastatin Calcium 10 mg 08/08/25 21:00 08/13/25 20:38 Atorvastatin Calcium 10 Mg Tablet GT 09/07/25 20:59 10 mg HS LISETTE Administration Dextrose 50 ml 08/01/25 05:16 Dextrose 50%-Water Inj 50 Ml Syringe IV 08/31/25 05:15 Q15MIN PRN BG <50 OR BG <70 & pt unresponsive Digoxin 0.125 mg 08/09/25 09:15 08/14/25 10:02 Digoxin 0.125 Mg Tablet GT 09/08/25 09:14 0.125 mg QDAY LISETTE Administration Diltiazem HCl 90 mg 08/12/25 17:00 08/14/25 05:20 Diltiazem 30 Mg Tablet GT 09/11/25 16:59 90 mg QID LISETTE Administration Glucagon 1 mg 08/01/25 05:16 Glucagon Inj 1 Mg Vial IM Q15MIN PRN BG <70, and no IV access Dexmedetomidine/Sodium Chloride 400 mcg in 100 mls @ 5.325 mls/hr 08/08/25 15:27 08/09/25 08:00 Precedex Ivpb IV 09/07/25 15:26 0 mcg/kg/hr .[id number] PRN 0 mls/hr Per PROTOCOL Titration Protocol 0.2 MCG/KG/HR Magnesium Sulfate 4 gm in 50 mls @ 12.5 mls/hr 08/14/25 10:51 Magnesium Sulfate Ivpb IV 08/14/25 14:50 X1 ONE Insulin Degludec 30 unit 08/14/25 21:00 Insulin Degludec 5 Unit/0.05 Ml (Per 5 Units) SC 09/13/25 20:59 HS LISETTE Insulin Human Lispro 0 unit 08/08/25 12:00 08/14/25 05:27 Insulin Lispro (Admelog) 1 Unit/0.01 Ml Unit SC 09/07/25 11:59 4 unit Q6HR LISETTE Administration Protocol Ipratropium [place] 0.5 mg 08/02/25 17:04 08/09/25 18:51 Ipratropium Rt 0.5 Mg/ 2.5 Ml Nebu INH 09/01/25 17:03 0.5 mg Q6HR PRN Administration SHORTNESS OF BREATH Protocol Levalbuterol HCl 0.63 mg 08/02/25 17:04 08/09/25 18:51 Levalbuterol Rt 0.63 Mg/3 Ml Nebu INH 09/01/25 17:03 0.63 mg Q6H PRN Administration WHEEZING Protocol Levothyroxine Sodium 100 mcg 08/09/25 06:00 08/14/25 05:20 Levothyroxine Sodium 100 Mcg Tablet GT 09/08/25 05:59 100 mcg ACBR LISETTE Administration Pantoprazole Sodium 40 mg 08/12/25 09:00 08/14/25 10:01 Pantoprazole 40 Mg Tablet PO 09/11/25 08:59 40 mg QDAY LISETTE Administration Polyethylene Glycol 17 gm 08/09/25 09:00 08/14/25 10:00 Polyethylene Glycol 17 Gm Packet GT 09/08/25 08:59 17 gm DAILY LISETTE Administration Pramipexole Dihydrochloride 1 mg 08/09/25 21:00 08/13/25 20:36 Pramipexole 0.25 Mg Tablet GT 09/08/25 20:59 1 mg HS LISETTE Administration Prednisone 15 mg 08/12/25 09:00 08/14/25 10:01 Prednisone 5 Mg Tablet GT 09/11/25 08:59 15 mg QDAY LISETTE Administration Sennosides 1 tab 08/09/25 09:00 08/14/25 10:01 Senna Tablet GT 09/08/25 08:59 1 tab QDAY LISETTE Administration Protocol Sodium Chloride 3 ml 08/01/25 02:11 Sodium Chloride Rt Sravani 0.9% 3 Ml Nebu INH 08/31/25 02:10 PRN PRN SOLN Venlafaxine HCl 150 mg 08/11/25 21:00 08/14/25 10:02 Venlafaxine 37.5 Mg Tablet GT 09/10/25 20:59 150 mg BID LISETTE Administration Plan 89-year-old female with chronic ILD/pulmonary fibrosis with chronic CO2 retention on home BiPAP, HFpEF, IDDM, and esophageal stenosis, admitted for acute on chronic hypoxic hypercapnic respiratory failure secondary to aspiration pneumonia, complicated by sepsis from Pseudomonas UTI, new-onset atrial fibrillation with RVR, severe dysphagia requiring NPO status and NG tube, and limited respiratory reserve with inability to tolerate sustained wean from BiPAP. #Esophageal stenosis s/p dilation (08/08/25) #S/p PEG tube placement (08/08/25) - s/p EGD with dilation for dysphagia secondary to esophageal stenosis on 02/08/2025. - GI recommended checking TSH and T4 to make sure patient is on adequate supplement as hypothyroidism can cause dysphagia. Both within normal range. - Persistent dysphagia is a major contributor to recurrent aspiration and respiratory failure. - 08/08/25: esophageal dilation + PEG tube placement. Plan: - GI discussed that definitive options are limited to esophageal dilation or PEG tube placement, both of which require intubation and sedation. - Pulmonology has expressed concern that given the patient?s chronic pulmonary disease and BiPAP dependence, safe extubation following the procedure may not be possible. - Extensive [id number] discussion held with patient?s nephew, Jg, regarding risks, benefits, and alternatives to intervention, including hospice and palliative care. Family understands the high risk of respiratory failure and prolonged intubation, and wish to proceed with EGD under general anesthesia despite elevated procedural risk. - Ongoing aspiration is suspected to be driven by severe dysphagia from esophageal stenosis, contributing to recurrent respiratory decompensation. - Plan for EGD w/ PEG tube 08/08/[address] Peters under [place], may require ICU stay in cannot be safely extubated. --> downgraded to Medsurg 08/10/25. - Tube feed initated. At goal rate 65ml/hr. Water flush 30ml/hr x 22hrs as need if not on IV. TF to be hold for one hour before and after levothyroxine. #Acute on chronic hypoxic hypercapnic respiratory failure, likely secondary to #Aspiration pneumonia #Pulmonary arterial hypertension #Interstitial lung disease #Pulmonary fibrosis - Known history of chronic interstitial lung disease and pulmonary fibrosis, contributing to chronic respiratory failure, chronic CO2 retention, and the need for BiPAP and home oxygen (2L). - Current acute exacerbation appears to be triggered by aspiration, likely exacerbated by recent intensified coughing after meals. The patient had worsening respiratory distress following dinner, with increasing cough and suspected aspiration of food. - Initial lactate was elevated at 2.4 --> 2.7 --> 2.3. Given the hypoxia and respiratory failure, the lactic acidosis may be due to tissue hypoperfusion and/or poor oxygenation. - Initial ABG showed pH 7.25, pCO2 74, pO2 62, bicarb 33, represents respiratory acidosis. - CXR 08/01: extensive bilateral pneumonia, prominent vascular congestion. - Patient is currently on a prednisone taper for ILD. - Patient failed ST swallow screen. - EGD and esophageal dilation on 02/08/25 for esophageal stenosis. - ABG 08/03: pH 7.33, pCO2 64, HCO3 34. Plan: - Pulmonology consulted, patient deemed high risk for intubation and prolonged ventilator dependence. - Continue strict NPO status and aspiration precautions. - Levalbuterol Q6H PRN - Continuous pulse oximetry to closely monitor oxygen saturation. - Aspiration precautions. - Continue prednisone 15mg GT QD for steroid taper for ILD. - Continue BiPAP all the time now to maintain O2 sat. #Sepsis #Staphylococcus epidermidis bacteremia #Pseudomonas aeruginosa UTI #Lactic acidosis #Leukocytosis - Etiology: Staphylococcus epidermidis bacteremia with suspected urinary tract infection as the source? - Lactate: 2.4 --> 2.7 --> 2.3. - WBC 23.2 on admission. - Blood culture 08/01: 2/2 GPC bacteremia. Staphylococcus epidermidis. - UA: 1+ protein, 44 RBC, 76 WBC, amorphous crystals, budding yeast, leukocyte esterase positive. Previous culture was positive for pansensitive Klebsiella Ozaenae. - Urine culture 08/01: Pseudomonas aeruginosa. Sensitive to Zosyn. - CXR: extensive bilateral pneumonia, prominent vascular congestion. - Fluids: 30 mL/kg, 2L of LR given in ED. - Zosyn 2.25 g every 8 hours for UTI (08/01-08/08). - Blood culture 08/03: Yeast. Received one dose of Micafungin 50 mg. - Blood culture 08/05: NGTD - Blood culture 08/12: NGTD Plan: - Infectious Disease consulted --> no further antifungal therapy recommended after single dose of micafungin. - Stable off antibiotics - Oxygen / Ventilation: BiPAP. #New onset Atrial fibrillation with RVR - EKG on 08/02 showed irregularly irregular rhythm rate 155 with RBBB. - No history of atrial fibrillation. - CHADSVASc score 6. - HASBLEED score 3. High Risk of major bleeding. - Was given diltiazem IV 20 mg x 1 and was started on diltiazem gtt. 5 mg/h which was increased to 10 mg/h as patient continued to remain tachycardic. - Three doses of digoxin (0.25 mg x2, 0.125 mg x1) given on 08/03 for tachycardia. - digoxin level 08/10 --> 1.2 Plan: - Cardiology consulted - appreciate recs. - ASA 81mg GT QD - Eliquis 5mg GT BID - Continue Diltiazem 90 mg GT QID per cardio recs. - Digoxin 0.125 GT QD - Keep potassium greater than 4 and magnesium greater than 2 at all times. #Hypernatremia (resolved) #Hyperkalemia - On admission, sodium 148 and potassium 5.2. - Likely secondary to decreased oral intake, lack of insulin, or hyperglycemia. - Patient received fluids in the ED and will start receiving insulin sliding scale. - Sodium continues to uptrend, peak at 153 on 08/04. - D5W given 08/04, sodium 153 --> 151. Plan: - Daily lab for monitoring. - Kayexalate and insulin with dextrose were administered for mild hyperkalemia on 08/13. #NSTEMI - Likely secondary to demand ischemia. - Troponin of 0.051 --> 0.030. - EKG showed sinus tachycardia with a rate of 131 QTc 473, widened upright QRS in V1 may represent right bundle branch block, No acute ST segment changes in other leads Plan: - Continue to monitor for chest pain. #Insulin-dependent type 2 diabetes - Per caregiver the patient is on 35 units of Lantus every morning, sliding scale, and 8 units regular 3 times daily with meals. - Hemoglobin A1c 2 months ago was 6.4. - Glucose on admission was 241. Plan: - Increased Insulin degludec to 30 units QD. - Insulin sliding scale. #Chronic normocytic anemia - Hemoglobin 11.8, MCV 101. - Likely secondary to anemia of chronic disease secondary to history of breast cancer and interstitial lung disease. - No suspicion for active bleed at this time. Plan: - No direct intervention at this time. - Monitor CBC. #Chronic diastolic CHF, HFpEF - Echo from 12/2024 showed EF 65%. Trace mitral and trace tricuspid regurgitation, No wall motion abnormalities noted. - BNP 193. - CXR (08/02/2025): extensive bilateral lung opacity, Mild enlargement cardiac contour with significant vascular congestion on physical exam 1+ edema noted bilateral hips. - Patient's underlying respiratory status and lieu of ILD flare/aspiration pneumonia. - Echo 08/02/25: ejection fraction is 60-65%. Plan: - Strict I and Os. - Fluid restriction 1500ml. - Patient is not on diuretics outpatient because of chronic hypercapnia and diuresis can cause contraction alkalosis causing further respiratory decompensation. - Hold diuresis for now as patient does not seemed to be fluid overloaded. #Hyperlipidemia Plan: - Continue atorvastatin 10 mg GT #Hypothyroidism - Home medication: Levothyroxine 100 mcg daily. Plan: - Levothyroxine 100 mcg GT - TF to be hold for one hour before and after levothyroxine. #Chronic constipation - Per caregiver, the patient's last bowel movement was 07/30/2025. - Last bowel movement 08/03. - KUB 08/04: large amounts of stool throughout the colon. Plan: - Daily senna and MiraLAX. #Depression Plan: - On Venlafaxine 150 mg GT BID. #Parkinson Plan: - Hold home pramipexole 1 mg GT Health Maintenance Disposition: tele, PEG tube placement DVT prophylaxis: Eliquis GI prophylaxis: Pantoprazole 40 mg IV daily Diet: NPO Almodovar: Removed 08/14/25 Lines: Peripheral IV, PEG tube, Central line CODE STATUS: DNR/DNI Case discussed with my senior resident Dr. Montgomery Case discussed with my attending Dr. Kelvin Combs, DO PGY 1
[2025-08-14] MEDS: Magnesium Sulfate 4 GM Ivpb 4 GM/50 ML BAG IV (11:24)
[2025-08-14 11:50] LABS: Hematocrit 25.3 % (36.0-46.0)
[2025-08-14 12:32] LABS: Hemoglobin 7.1 g/dL (12.0-16.0)
[2025-08-14] MEDS: AMIODARONE 150 MG IVPB 150 MG/100 ML BAG 600 MG IV (17:58)
[2025-08-14] MEDS: AMIODARONE 360 MG IVPB 360 MG/200 ML BAG 33.333 MG IV (18:14)
--- NOTE | 2025-08-14 18:34 | ESPR_ITS ---
Documentation for date of: 08/14/25 Subjective Subjective Interval history: PEG site looks good patient moved to the telemetry Exam Vital Signs Temp Pulse Resp BP Pulse Ox O2 Del Method O2 Flow Rate 98.1 F 112 H 30 H 158/68 H 95 BiPAP 4 08/14/25 16:00 08/14/25 18:14 08/14/25 16:00 08/14/25 18:14 08/14/25 16:00 08/14/25 04:00 08/13/25 20:00 FiO2 50 08/14/25 15:39 Objective Labs 08/14/25 11:11 08/14/25 06:10 Labs: Laboratory Results - last 24 hr 08/14/25 08/14/25 06:10 11:11 WBC 15.6 H RBC 2.48 L Hgb 7.1 L 7.1 L Hct 25.3 L 25.3 L MCV 102 H MCH 28.6 MCHC 28.1 L RDW Std Deviation 62.2 H Plt Count 184 Neut % (Auto) 86 H Lymph % (Auto) 2 L [place] % (Auto) 6 Eos % (Auto) 0 Baso % (Auto) 0 Neut # (Auto) 13.4 H Lymph # (Auto) 0.4 L [place] # (Auto) 1.0 H Eos # (Auto) 0.1 Baso # (Auto) 0.1 Immature Gran # (Auto) 0.75 H Absolute Nucleated RBC 0.05 H Immature Gran % 5 H Nucleated RBC % 0 Sodium 138 Potassium 5.1 Chloride 88 L Carbon Dioxide > 40.0 H Anion Gap 10 BUN 23 Creatinine 0.9 Estim Creat Clear Calc 50.7 L eGFR > 60 BUN/Creatinine Ratio 26 H Glucose 358 H D Calculated Osmolality 293 Calcium 10.5 Phosphorus 2.9 Magnesium 1.9 Impressions Impression: Failure to thrive status post PEG placement Acute hypoxic respiratory failure requiring recurrent BiPAP Improved dysphagia after endoscopic dilatation Continue current management ABG Interpretation ABG results: 08/01/25 08/01/25 08/02/25 02:15 09:05 12:15 ABG pH 7.25 L 7.30 L ABG pCO2 74 H* 66 H ABG pO2 62 L 84 D ABG HCO3 33 H 32 H ABG O2 Saturation 95 95 ABG Base Excess 4 H 4 H VBG pH 7.27 L VBG pCO2 63 H VBG pO2 Not Performed. VBG Base Excess 0 08/03/25 08/04/25 08/08/25 10:44 12:13 22:13 ABG pH 7.33 L 7.33 L 7.48 H ABG pCO2 64 H 69 H 53 H ABG pO2 88 85 259 H ABG HCO3 34 H 36 H 40 H ABG O2 Saturation 95 95 99 H ABG Base Excess 6 H 8 H 14 H VBG pH VBG pCO2 VBG pO2 VBG Base Excess 08/09/25 08/09/25 08/10/25 01:48 04:15 05:00 ABG pH 7.47 H 7.42 7.41 ABG pCO2 55 H 64 H 63 H ABG pO2 189 H D 97 D 64 L D ABG HCO3 40 H 41 H 40 H ABG O2 Saturation 100 H 100 H 96 ABG Base Excess 15 H 15 H 13 H VBG pH VBG pCO2 VBG pO2 VBG Base Excess 08/13/25 09:28 ABG pH ABG pCO2 ABG pO2 ABG HCO3 ABG O2 Saturation ABG Base Excess VBG pH 7.55 VBG pCO2 53 VBG pO2 60 H VBG Base Excess 22 H Assessment & Plan A&P Narrative dnr status seems to be at baseline wbc may be steroid related multiple listed allergies. prior id eval in may noted. abn ua in an 89 y/o lady with pos cx noted. not clear if she followed advice for vaginal estrogen in may. ild hx noted with hypercapnea. confounding things a bit. is in house frequently on steroids. at most low grade temps soon after arrival. wbc may be related to steroids but is done popularly on a daily basis. nasal mrsa neg. so mrsa an unlikely player in pneumonia bc with coag neg and repeats appear to be neg for any staph. line placed rt chest approx 08/03 so is fast for yeast. echo neg. no objection to restarting micafungin but ok to leave her off as well no cough noted. no notable fever but is on steriods. best fever reducers on the planet but have other se's will see again prn Time Spent With Patient Time: Total time spent is greater than 50% in coordination of care (as documented) at patient's floor/unit and/or counseling patient:
[2025-08-14] MEDS: INSULIN DEGLUDEC 5 UNIT/0.05 ML (PER 5 UNITS) 30 UNIT SC (20:35)
[2025-08-14] MEDS: ATORVASTATIN CALCIUM 10 MG TABLET GT (20:36)
[2025-08-14] MEDS: PRAMIPEXOLE 0.25 MG TABLET 1 MG GT (20:36)
[2025-08-14] MEDS: ACETAMINOPHEN 325 MG TABLET 650 MG PO (20:43)
[2025-08-15] VITALS (22 sets, daily range): BP systolic 103–162; BP diastolic 42–88; PULSE 85–109; RESP 10–32; TEMP 36–37.1; O2SAT 90–97; BMI 34.9
[2025-08-15] MEDS: INSULIN LISPRO (AdmeLOG) 1 UNIT/0.01 ML UNIT SC ×4 (00:28→17:28)
[2025-08-15] MEDS: AMIODARONE 360 MG IVPB 360 MG/200 ML BAG 16.667 MG IV ×2 (00:30→12:54)
[2025-08-15] MEDS: LEVOTHYROXINE SODIUM 100 MCG TABLET GT (05:39)
[2025-08-15] MEDS: DILTIAZEM 30 MG TABLET 90 MG GT ×4 (05:39→20:16)
[2025-08-15 06:19] LABS: Basophils # (Auto) 0.1 Thou/mm3 (0.0-0.2); Basophils % (Auto) 1 % (0-2.5); Eosinophils # (Auto) 0.1 Thou/mm3 (0.0-0.5); Eosinophils % (Auto) 1 % (0-10); Hematocrit 24.3 % (36.0-46.0); Immature Granulocytes Auto 0.70 Thou/mm3 (0.00-0.00); Lymphocytes # (Auto) 0.6 Thou/mm3 (1.0-4.8); Lymphocytes % (Auto) 5 % (10-50); Mean Corpuscular HGB Conc 28.0 g/dl (31.0-37.0); Mean Corpuscular Hemoglobin 29.1 pg (25.0-35.0); Mean Corpuscular Volume 104 fL (80-100); Monocytes # (Auto) 1.0 Thou/mm3 (0.0-0.8); Monocytes % (Auto) 7 % (0-12); Neutrophils # (Auto) 11.0 Thou/mm3 (1.8-7.7); Neutrophils % (Auto) 82 % (37-80); Nucleated Red Blood Cell # 0.09 Thou/mm3 (0.00-0.00); Nucleated Red Blood Cell % 1 /100 WBC (0); Platelet Count 199 Thou/mm3 (140-440); RDW Standard Deviation 63.9 fL (36.4-46.3); Red Blood Count 2.34 Miln/mm3 (4.00-5.20); White Blood Count 13.5 Thou/mm3 (3.6-11.0)
[2025-08-15 06:30] LABS: Hemoglobin 6.8 g/dL (12.0-16.0)
[2025-08-15 06:56] LABS: Anion Gap 9 (7-16); BUN/Creatinine Ratio 26 Ratio (12-20); Blood Urea Nitrogen 26 mg/dL (9-23); Calcium 10.6 mg/dL (8.3-10.6); Carbon Dioxide > 40.0 mMol/L (20.0-31.0); Chloride 89 mMol/L (98-107); Creatinine (Component) 1.0 mg/dL (0.6-1.3); Estimated Creatinine Clearance 45.8 mL/min (>60); Glucose 346 mg/dL (74-106); Magnesium 2.5 mg/dL (1.6-2.6); Osmolality,Calculated 294 (275-295); Phosphorous 3.7 mg/dL (2.4-5.1); Potassium 4.6 mMol/L (3.4-5.1); Sodium 138 mMol/L (136-145); eGFR 54 See Note
[2025-08-15] MEDS: VENLAFAXINE 37.5 MG TABLET 150 MG GT ×2 (08:04→20:15)
[2025-08-15] MEDS: POLYETHYLENE GLYCOL 17 GM PACKET GT (08:04)
[2025-08-15] MEDS: PANTOPRAZOLE 40 MG TABLET PO (08:04)
[2025-08-15 10:05] LABS: Base Excess 17 (-3-3); HCO3 44 mEq/L (20-26); Inspired Oxygen, FIO2 21 %; O2 Saturation 100 % (91-98); PCO2 80 mmHg (32.0-48.0); PO2 132 mmHg (83-108); pH, Arterial 7.35 (7.35-7.45)
[2025-08-15 10:06] LABS: Allen Test Performed/OK; Puncture Site Left Radial
--- NOTE | 2025-08-15 10:55 | PD.RESPRO ---
Documentation for date of: 08/15/25 Subjective Subjective Interval history: Patient on BiPAP today . Blood pressure 103/50 with pulse rate 96. Hemoglobin dropped from 7.1 to 6.8. Eliquis 5 mg twice daily is currently on hold. Will continue Cardizem 90 mg GT 4 times daily. Recommend changing amiodarone drip to amiodarone 200 mg p.o. twice daily. Exam Vital Signs Temp Pulse Resp BP Pulse Ox O2 Del Method O2 Flow Rate 97.6 F 95 25 H 114/63 94 L BiPAP 4 08/15/25 10:46 08/15/25 10:46 08/15/25 10:46 08/15/25 10:46 08/15/25 10:46 08/15/25 08:00 08/15/25 08:00 FiO2 45 08/15/25 08:00 Narrative Exam General: Chronically ill-appearing woman, obese habitus, on bipap HEENT: Normocephalic, atraumatic. Heart:normal S1 and S2, no murmurs. Irregular rhythm Lungs: Minimal wheezing bilaterally Abdomen: Obese, firm, distended, tender. No guarding or rebound tenderness. Neurologic: Alert and oriented x3, no gross neurological deficit, and patient able to move all 4 extremities. Extremities: 1+ lower extremity edema and 1+ bilateral upper extremity edema, clubbing or cyanosis. No joint deformity. Skin: Warm and dry without rashes. : Queen in place, draining yellow urine. Objective Labs 08/15/25 15:11 08/15/25 15:11 Labs: Laboratory Results - last 24 hr 08/14/25 08/15/25 08/15/25 11:11 05:00 07:00 WBC 13.5 H RBC 2.34 L Hgb 7.1 L 6.8 L* Hct 25.3 L 24.3 L MCV 104 H MCH 29.1 MCHC 28.0 L RDW Std Deviation 63.9 H Plt Count 199 Neut % (Auto) 82 H Lymph % (Auto) 5 L [place] % (Auto) 7 Eos % (Auto) 1 Baso % (Auto) 1 Neut # (Auto) 11.0 H Lymph # (Auto) 0.6 L [place] # (Auto) 1.0 H Eos # (Auto) 0.1 Baso # (Auto) 0.1 Immature Gran # (Auto) 0.70 H Absolute Nucleated RBC 0.09 H Immature Gran % 5 H Nucleated RBC % 1 H Puncture Site ABG pH ABG pCO2 ABG pO2 ABG HCO3 ABG O2 Saturation ABG Base Excess FiO2 Sodium 138 Potassium 4.6 D Chloride 89 L Carbon Dioxide > 40.0 H Anion Gap 9 BUN 26 H Creatinine 1.0 Estim Creat Clear Calc 45.8 L eGFR 54 L BUN/Creatinine Ratio 26 H Glucose 346 H Calculated Osmolality 294 Calcium 10.6 Phosphorus 3.7 Magnesium 2.5 Blood Type O Positive Antibody Screen NEGATIVE Crossmatch See Detail Blood Bank Wristband ID Yes 08/15/25 10:00 WBC RBC Hgb Hct MCV MCH MCHC RDW Std Deviation Plt Count Neut % (Auto) Lymph % (Auto) [place] % (Auto) Eos % (Auto) Baso % (Auto) Neut # (Auto) Lymph # (Auto) [place] # (Auto) Eos # (Auto) Baso # (Auto) Immature Gran # (Auto) Absolute Nucleated RBC Immature Gran % Nucleated RBC % Puncture Site Left Radial ABG pH 7.35 ABG pCO2 80 H* ABG pO2 132 H ABG HCO3 44 H ABG O2 Saturation 100 H ABG Base Excess 17 H FiO2 21 Sodium Potassium Chloride Carbon Dioxide Anion Gap BUN Creatinine Estim Creat Clear Calc eGFR BUN/Creatinine Ratio Glucose Calculated Osmolality Calcium Phosphorus Magnesium Blood Type Antibody Screen Crossmatch Blood Bank Wristband ID ABG Interpretation ABG results: 08/01/25 08/01/25 08/02/25 02:15 09:05 12:15 ABG pH 7.25 L 7.30 L ABG pCO2 74 H* 66 H ABG pO2 62 L 84 D ABG HCO3 33 H 32 H ABG O2 Saturation 95 95 ABG Base Excess 4 H 4 H VBG pH 7.27 L VBG pCO2 63 H VBG pO2 Not Performed. VBG Base Excess 0 08/03/25 08/04/25 08/08/25 10:44 12:13 22:13 ABG pH 7.33 L 7.33 L 7.48 H ABG pCO2 64 H 69 H 53 H ABG pO2 88 85 259 H ABG HCO3 34 H 36 H 40 H ABG O2 Saturation 95 95 99 H ABG Base Excess 6 H 8 H 14 H VBG pH VBG pCO2 VBG pO2 VBG Base Excess 08/09/25 08/09/25 08/10/25 01:48 04:15 05:00 ABG pH 7.47 H 7.42 7.41 ABG pCO2 55 H 64 H 63 H ABG pO2 189 H D 97 D 64 L D ABG HCO3 40 H 41 H 40 H ABG O2 Saturation 100 H 100 H 96 ABG Base Excess 15 H 15 H 13 H VBG pH VBG pCO2 VBG pO2 VBG Base Excess 08/13/25 08/15/25 09:28 10:00 ABG pH 7.35 ABG pCO2 80 H* ABG pO2 132 H ABG HCO3 44 H ABG O2 Saturation 100 H ABG Base Excess 17 H VBG pH 7.55 VBG pCO2 53 VBG pO2 60 H VBG Base Excess 22 H Quality Measures Quality Measures VTE prophylaxis Advance care planning discussed with:: patient and other Assessment & Plan Assessment Current Active Medications: Generic Name Dose Route Start Last Admin Trade Name Freq PRN Reason Stop Dose Admin Acetaminophen 650 mg 08/01/25 05:05 08/14/25 20:43 Acetaminophen 325 Mg Tablet PO 08/31/25 05:04 650 mg Q6H PRN Administration Fever >100.4 Apixaban 5 mg 08/08/25 21:00 08/14/25 20:36 Apixaban 2.5 Mg Tablet GT 09/07/25 20:59 5 mg On Hold: 08/15/25 06:42 BID LISETTE Administration Atorvastatin Calcium 10 mg 08/08/25 21:00 08/14/25 20:36 Atorvastatin Calcium 10 Mg Tablet GT 09/07/25 20:59 10 mg HS LISETTE Administration Dextrose 50 ml 08/01/25 05:16 Dextrose 50%-Water Inj 50 Ml Syringe IV 08/31/25 05:15 Q15MIN PRN BG <50 OR BG <70 & pt unresponsive Diltiazem HCl 90 mg 08/12/25 17:00 08/15/25 05:39 Diltiazem 30 Mg Tablet GT 09/11/25 16:59 90 mg QID LISETTE Administration Glucagon 1 mg 08/01/25 05:16 Glucagon Inj 1 Mg Vial IM Q15MIN PRN BG <70, and no IV access Amiodarone HCl/Dextrose 360 mg in 200 mls @ 16.667 mls/hr 08/14/25 22:43 08/15/25 00:30 Nexterone Ivpb IV 08/15/25 22:42 16.667 mls/hr .Q12H LISETTE Administration Micafungin Sodium 100 mg/ 100 mls @ 100 mls/hr 08/15/25 10:38 Sodium Chloride IV 08/30/25 10:37 QDAY LISETTE Protocol Insulin Degludec 40 unit 08/15/25 21:00 Insulin Degludec 5 Unit/0.05 Ml (Per 5 Units) SC 09/14/25 20:59 HS LISETTE Insulin Human Lispro 0 unit 08/15/25 10:45 Insulin Lispro (Admelog) 1 Unit/0.01 Ml Unit SC 09/07/25 10:44 Q6HR LISETTE Protocol Ipratropium Joshua 0.5 mg 08/02/25 17:04 08/09/25 18:51 Ipratropium Rt 0.5 Mg/ 2.5 Ml Nebu INH 09/01/25 17:03 0.5 mg Q6HR PRN Administration SHORTNESS OF BREATH Protocol Levalbuterol HCl 0.63 mg 08/02/25 17:04 08/09/25 18:51 Levalbuterol Rt 0.63 Mg/3 Ml Nebu INH 09/01/25 17:03 0.63 mg Q6H PRN Administration WHEEZING Protocol Levothyroxine Sodium 100 mcg 08/09/25 06:00 08/15/25 05:39 Levothyroxine Sodium 100 Mcg Tablet GT 09/08/25 05:59 100 mcg ACBR LISETTE Administration Pantoprazole Sodium 40 mg 08/12/25 09:00 08/15/25 08:04 Pantoprazole 40 Mg Tablet PO 09/11/25 08:59 40 mg QDAY LISETTE Administration Polyethylene Glycol 17 gm 08/09/25 09:00 08/15/25 08:04 Polyethylene Glycol 17 Gm Packet GT 09/08/25 08:59 17 gm DAILY LISETTE Administration Pramipexole Dihydrochloride 1 mg 08/09/25 21:00 08/14/25 20:36 Pramipexole 0.25 Mg Tablet GT 09/08/25 20:59 1 mg HS LISETTE Administration Prednisone 15 mg 08/12/25 09:00 08/15/25 08:04 Prednisone 5 Mg Tablet GT 09/11/25 08:59 15 mg QDAY LISETTE Administration Sennosides 1 tab 08/09/25 09:00 08/15/25 08:04 Senna Tablet GT 09/08/25 08:59 1 tab QDAY LISETTE Administration Protocol Sodium Chloride 3 ml 08/01/25 02:11 Sodium Chloride Rt Sravani 0.9% 3 Ml Nebu INH 08/31/25 02:10 PRN PRN SOLN Venlafaxine HCl 150 mg 08/11/25 21:00 08/15/25 08:04 Venlafaxine 37.5 Mg Tablet GT 09/10/25 20:59 150 mg BID LISETTE Administration Plan Ms. Coffman is a 89-year-old female with past medical history of ILD/pulmonary fibrosis/chronic hypersensitivity pneumonitis with chronic respiratory failure on 2 L home oxygen and BiPAP currently on steroid taper, pulmonary arterial hypertension, heart failure with preserved ejection fraction, EF 60-65%, chronically bedbound, recurrent MDR UTIs, hypothyroidism, right breast cancer status postlumpectomy with lymph node dissection, insulin-dependent type 2 diabetes mellitus, GERD, depression, chronic back pain and nephrolithiasis who presented to [facility] emergency department on 08/01/2025 with a chief complaint of hypoxia. Cardiology was consulted for management of new onset Afib on EKG. #New Onset A Fib with RVR -diagnosed July 2025 Patient has SOB. Denies palpation or chest pain. EKG showed irregularly irregular rhythm rate 155 with RBBB. MAT ruled out. No history of atrial fibrillation CHADSVASc score 6 HASBLEED score 3. High Risk of major bleeding Was given diltiazem IV 20 mg x 1 and was started on diltiazem gtt. 5 mg/h which was increased to 10 mg/h as patient continued to remain tachycardic On August 03 patient was noted to be significantly tachycardic with low blood pressure, was given total IV digoxin 0.625 mg loading dose and now on Digoxin 0.125mg po qd - rate controlled now -On 08/11, Digoxin level was 1.1 Plan: -Discussed with primary sodder regarding switching digoxin to amiodarone considering patient's heart rate sustains in 110s, pending decision by family - Started on Amiodarone drip -On Amidarone drip. Will consider changing to amiodarone 200 mg p.o. twice daily. -Continue Cardizem 90 mg GT 4 times daily -Held Eliquis 5 mg twice daily due to Hgb drop, discontinued aspirin. -Recommend Holter monitor outpatient to assess A fib burden. 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 Pulmonology notes reviewed. Patient steroid taper is being managed by resident clinic outpatient with recommendations from pulmonology remotely. Patient has had multiple admissions for hypercapnia, currently using BiPAP every night with [facility]. Patient does have history of heart failure, HFpEF with a EF 60 to 65%, never seen a auriculotherapist outpatient, patient not on diuretics outpatient per resident clinic note as patient has chronic hypercapnia and diuresis causes contraction alkalosis causing further respiratory decompensation. CXR (08/02/2025): extensive bilateral lung opacity, Mild enlargement cardiac contour with significant vascular congestion on physical exam 1+ edema noted bilateral hips. Patient's underlying respiratory status and lieu of ILD flare/aspiration pneumonia ECHO (08/02/2025) showed: 1. Left ventricle size is normal and systolic function is normal. Estimated ejection fraction is 60-65%. There is indeterminate diastolic function due to afib. There is mild concentric hypertrophy noted. 2. Right ventricle is not well visualized. RV function appears normal. 3. There is mild aortic valve sclerosis with no stenosis. 4. Mild thickening of the mitral valve leaflets. Mild MR, mild MAC. Mild TR. 5. Normal IVC with estimated RA pressure 3 mmHg. 6. Prior study from 12/29/2024. Plan: -Bicarb greater than 40, swelling noted 1+ bilateral upper extremity and 1+ around hips and dependent area, acetazolamide 500 mg x 1 -Strict intake and output, daily weight -Fluid restriction 1500ml, cardiac diet -Keep magnesium greater than 2 and potassium greater than 4 at all times -Management of respiratory disease per primary team #NSTEMI type II likely demand ischemia Patient presented with troponin elevation at 0.051, no troponin elevation however noted in the past patient on daily aspirin outpatient. Troponin eventually down trended to 0.030. Patient denied any chest pain Likely troponin elevation setting of demand ischemia secondary to underlying pulmonary disease and atrial fibrillation which was new onset. - Will consider outpatient stress testing -Will discontinue aspirin, held Eliquis. - Monitor for chest pain #?Pulmonary Hypertension, Group III #Hx of Interstitial Lung Disease - Patient has established diagnosis of interstitial lung disease, pulmonary fibrosis secondary to chronic hypersensitivity pneumonitis - Patient had echo in the past with elevated right-sided pressures suggestive of pulmonary hypertension - Chest CT (08/01/2025): Pulmonary artery hypertension, Severe pneumonia and/or edema throughout the lungs - Recommend outpatient workup for pulmonary hypertension Plan: -BiPAP prn -Duoneb prn -Steroid taper per pulmonology # Hypertension In ED, 155/80 blood pressure well-controlled - Continue Cardizem 90 mg 4 times daily GT #Hypernatremia #Acute on chronic hypoxic hypercapnic respiratory failure, likely secondary to #Aspiration pneumonia #Sepsis #GPC bacteremia #Lactic acidosis #Leukocytosis #UTI #Insulin-dependent type 2 diabetes #Esophageal stenosis s/p dilation #Chronic normocytic anemia #Hyperlipidemia #Hypothyroidism #Chronic constipation #Depression #Parkinson -Management per Primary Hospitalist team Thank you for the consult and allowing to participate in the care of the patient. Cardiology will continue to follow. Assessment and plan discussed with my attending physician Dr. Tj Stovall (PGY-1) - Internal medicine resident Attending Provider Attestation/Addendum I have personally seen and examined the patient separately on the above date of service and discussed the plan of care with the resident. I reviewed the resident Dr. Doron Allen consultation progress note and agree with the resident findings and plan in the note above and have also edited the documentation to reflect my findings and plan. Steven Spencer M.D. Interventional Cardiology
--- NOTE | 2025-08-15 11:01 | ESPR_ITS ---
<Statement entered by John Paul Warren MD - 08/26/25 07:44> I reviewed above note and agree with findings and plans. I have also personally examined the patient with medicine team and went over assessment and plan with medical team including hospital intern and resident physician. <Statement entered by Kali Walton MD - 08/15/25 15:05> Patient seen and examined at bedside. I discussed and supervised with the hospital intern physician who took care of this patient. I personally saw and examined the patient. I agree with most of the assessment and plan. Patient lethargic this morning, anemic. Given 1 unit PRBC with imrpovement. ABG ordered, showed increased hypercapnia. BiPAP settings adjusted, will continue to monitor. Plan for Goals of care conversation with family tomorrow. FOBT positive, GI informed. Queen catheter exchanged. ID advised resuming micafungin for positive fungemia on repeat blood cultures. Plan of care discussed with attending Dr. Warren. Kali Walton MD PGY-2 Documentation for date of: 08/15/25 Subjective Subjective Interval history: - No acute overnight events. More drowsy this morning but following commands. - Last BM 08/10. Attempted water enema. - ABG pH 7.35, pCO2 80 (previously 63). Inspiratory pressure 14, expiratory 7, will decrease BiPAP expiratory pressure to 5. - ABG #2 pH 7.31, pCO2 87, increased iPAP to 16. - ABG #3 pH 7.32, pCO2 70. Will continue current settings. - Bicarb continues to be greater than 40 status post acetazolamide x 1 yesterday. Compensatory metabolic alkalosis in setting of severe respiratory acidosis. - Hemoglobin 6.8 on a.m. labs, transfuse 1 unit. Posttransfusion H&H 7.6. Held Eliquis iso acute anemia. FOBT positive, consulted GI. - Glucose persisting in 300s, increased to 400 during the day. Will increase insulin degludec to 40, and sliding scale to step 3. - Grew yeast again on 1/2 blood cultures (08/12). Spoke to ID, ok to start on micafungin. Repeat Bcx. Unable to dc central line due to poor IV access. Will exchange Queen. - Spoke to cardiology, transition to amiodarone PO tonight s/p drip completed. Rate controlled, continue diltiazem 90 daily. - Plan for GOC conversation with patient's nephew Jg tomorrow at 11:30. Exam Vital Signs Temp Pulse Resp BP Pulse Ox O2 Del Method O2 Flow Rate 97.6 F 95 25 H 114/63 94 L BiPAP 4 08/15/25 10:46 08/15/25 10:46 08/15/25 10:46 08/15/25 10:46 08/15/25 10:46 08/15/25 08:00 08/15/25 08:00 FiO2 45 08/15/25 08:00 Narrative Exam Physical Exam General: Drowsy however following commands. On BiPAP. GCS 11. HEENT: Normocephalic, atraumatic, mucous membranes dry. Poor dentition. Heart: Irregular rhythm. Rate controlled, normal S1 and S2, no murmurs appreciated. Lungs: Decreased breath sounds. Diffuse crackles. Abdomen: Soft, nondistended, nontender, positive bowel sounds. No guarding or rebound tenderness. PEG tube in place, dried blood around insertion site. No surrounding wounds or erythema. Neurologic: No gross neurological deficit, and patient able to move all 4 extremities. Extremities: Trace lower extremity edema up to calves. Skin: No rash or ecchymoses. Objective Labs 08/15/25 15:11 08/15/25 15:11 Labs: Laboratory Results - last 24 hr 08/14/25 08/15/25 08/15/25 11:11 05:00 07:00 WBC 13.5 H RBC 2.34 L Hgb 7.1 L 6.8 L* Hct 25.3 L 24.3 L MCV 104 H MCH 29.1 MCHC 28.0 L RDW Std Deviation 63.9 H Plt Count 199 Neut % (Auto) 82 H Lymph % (Auto) 5 L [place] % (Auto) 7 Eos % (Auto) 1 Baso % (Auto) 1 Neut # (Auto) 11.0 H Lymph # (Auto) 0.6 L [place] # (Auto) 1.0 H Eos # (Auto) 0.1 Baso # (Auto) 0.1 Immature Gran # (Auto) 0.70 H Absolute Nucleated RBC 0.09 H Immature Gran % 5 H Nucleated RBC % 1 H Puncture Site ABG pH ABG pCO2 ABG pO2 ABG HCO3 ABG O2 Saturation ABG Base Excess FiO2 Sodium 138 Potassium 4.6 D Chloride 89 L Carbon Dioxide > 40.0 H Anion Gap 9 BUN 26 H Creatinine 1.0 Estim Creat Clear Calc 45.8 L eGFR 54 L BUN/Creatinine Ratio 26 H Glucose 346 H Calculated Osmolality 294 Calcium 10.6 Phosphorus 3.7 Magnesium 2.5 Blood Type O Positive Antibody Screen NEGATIVE Crossmatch See Detail Blood Bank Wristband ID Yes 08/15/25 10:00 WBC RBC Hgb Hct MCV MCH MCHC RDW Std Deviation Plt Count Neut % (Auto) Lymph % (Auto) [place] % (Auto) Eos % (Auto) Baso % (Auto) Neut # (Auto) Lymph # (Auto) [place] # (Auto) Eos # (Auto) Baso # (Auto) Immature Gran # (Auto) Absolute Nucleated RBC Immature Gran % Nucleated RBC % Puncture Site Left Radial ABG pH 7.35 ABG pCO2 80 H* ABG pO2 132 H ABG HCO3 44 H ABG O2 Saturation 100 H ABG Base Excess 17 H FiO2 21 Sodium Potassium Chloride Carbon Dioxide Anion Gap BUN Creatinine Estim Creat Clear Calc eGFR BUN/Creatinine Ratio Glucose Calculated Osmolality Calcium Phosphorus Magnesium Blood Type Antibody Screen Crossmatch Blood Bank Wristband ID ABG Interpretation ABG results: 08/01/25 08/01/25 08/02/25 02:15 09:05 12:15 ABG pH 7.25 L 7.30 L ABG pCO2 74 H* 66 H ABG pO2 62 L 84 D ABG HCO3 33 H 32 H ABG O2 Saturation 95 95 ABG Base Excess 4 H 4 H VBG pH 7.27 L VBG pCO2 63 H VBG pO2 Not Performed. VBG Base Excess 0 08/03/25 08/04/25 08/08/25 10:44 12:13 22:13 ABG pH 7.33 L 7.33 L 7.48 H ABG pCO2 64 H 69 H 53 H ABG pO2 88 85 259 H ABG HCO3 34 H 36 H 40 H ABG O2 Saturation 95 95 99 H ABG Base Excess 6 H 8 H 14 H VBG pH VBG pCO2 VBG pO2 VBG Base Excess 08/09/25 08/09/25 08/10/25 01:48 04:15 05:00 ABG pH 7.47 H 7.42 7.41 ABG pCO2 55 H 64 H 63 H ABG pO2 189 H D 97 D 64 L D ABG HCO3 40 H 41 H 40 H ABG O2 Saturation 100 H 100 H 96 ABG Base Excess 15 H 15 H 13 H VBG pH VBG pCO2 VBG pO2 VBG Base Excess 08/13/25 08/15/25 09:28 10:00 ABG pH 7.35 ABG pCO2 80 H* ABG pO2 132 H ABG HCO3 44 H ABG O2 Saturation 100 H ABG Base Excess 17 H VBG pH 7.55 VBG pCO2 53 VBG pO2 60 H VBG Base Excess 22 H Quality Measures Quality Measures VTE prophylaxis Advance care planning discussed with:: patient and other Assessment & Plan Assessment Current Active Medications: Generic Name Dose Route Start Last Admin Trade Name Freq PRN Reason Stop Dose Admin Acetaminophen 650 mg 08/01/25 05:05 08/14/25 20:43 Acetaminophen 325 Mg Tablet PO 08/31/25 05:04 650 mg Q6H PRN Administration Fever >100.4 Apixaban 5 mg 08/08/25 21:00 08/14/25 20:36 Apixaban 2.5 Mg Tablet GT 09/07/25 20:59 5 mg On Hold: 08/15/25 06:42 BID LISETTE Administration Atorvastatin Calcium 10 mg 08/08/25 21:00 08/14/25 20:36 Atorvastatin Calcium 10 Mg Tablet GT 09/07/25 20:59 10 mg HS LISETTE Administration Dextrose 50 ml 08/01/25 05:16 Dextrose 50%-Water Inj 50 Ml Syringe IV 08/31/25 05:15 Q15MIN PRN BG <50 OR BG <70 & pt unresponsive Diltiazem HCl 90 mg 08/12/25 17:00 08/15/25 05:39 Diltiazem 30 Mg Tablet GT 09/11/25 16:59 90 mg QID LISETTE Administration Glucagon 1 mg 08/01/25 05:16 Glucagon Inj 1 Mg Vial IM Q15MIN PRN BG <70, and no IV access Amiodarone HCl/Dextrose 360 mg in 200 mls @ 16.667 mls/hr 08/14/25 22:43 08/15/25 00:30 Nexterone Ivpb IV 08/15/25 22:42 16.667 mls/hr .Q12H LISETTE Administration Micafungin Sodium 100 mg/ 100 mls @ 100 mls/hr 08/15/25 10:38 Sodium Chloride IV 08/30/25 10:37 QDAY LISETTE Protocol Insulin Degludec 40 unit 08/15/25 21:00 Insulin Degludec 5 Unit/0.05 Ml (Per 5 Units) SC 09/14/25 20:59 HS LISETTE Insulin Human Lispro 0 unit 08/15/25 10:45 Insulin Lispro (Admelog) 1 Unit/0.01 Ml Unit SC 09/07/25 10:44 Q6HR LISETTE Protocol Ipratropium [place] 0.5 mg 08/02/25 17:04 08/09/25 18:51 Ipratropium Rt 0.5 Mg/ 2.5 Ml Nebu INH 09/01/25 17:03 0.5 mg Q6HR PRN Administration SHORTNESS OF BREATH Protocol Levalbuterol HCl 0.63 mg 08/02/25 17:04 08/09/25 18:51 Levalbuterol Rt 0.63 Mg/3 Ml Nebu INH 09/01/25 17:03 0.63 mg Q6H PRN Administration WHEEZING Protocol Levothyroxine Sodium 100 mcg 08/09/25 06:00 08/15/25 05:39 Levothyroxine Sodium 100 Mcg Tablet GT 09/08/25 05:59 100 mcg ACBR LISETTE Administration Pantoprazole Sodium 40 mg 08/12/25 09:00 08/15/25 08:04 Pantoprazole 40 Mg Tablet PO 09/11/25 08:59 40 mg QDAY LISETTE Administration Polyethylene Glycol 17 gm 08/09/25 09:00 08/15/25 08:04 Polyethylene Glycol 17 Gm Packet GT 09/08/25 08:59 17 gm DAILY LISETTE Administration Pramipexole Dihydrochloride 1 mg 08/09/25 21:00 08/14/25 20:36 Pramipexole 0.25 Mg Tablet GT 09/08/25 20:59 1 mg HS LISETTE Administration Prednisone 15 mg 08/12/25 09:00 08/15/25 08:04 Prednisone 5 Mg Tablet GT 09/11/25 08:59 15 mg QDAY LISETTE Administration Sennosides 1 tab 08/09/25 09:00 08/15/25 08:04 Senna Tablet GT 09/08/25 08:59 1 tab QDAY LISETTE Administration Protocol Sodium Chloride 3 ml 08/01/25 02:11 Sodium Chloride Rt Sravani 0.9% 3 Ml Nebu INH 08/31/25 02:10 PRN PRN SOLN Venlafaxine HCl 150 mg 08/11/25 21:00 08/15/25 08:04 Venlafaxine 37.5 Mg Tablet GT 09/10/25 20:59 150 mg BID LISETTE Administration Plan Patient is a 89-year-old female with chronic ILD/pulmonary fibrosis with chronic CO2 retention on home BiPAP, 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 #Acute on chronic hypoxic hypercapnic respiratory failure, likely secondary to #Aspiration pneumonia #Pulmonary arterial hypertension #Interstitial lung disease #Pulmonary fibrosis - Known history of chronic interstitial lung disease and pulmonary fibrosis, contributing to chronic respiratory failure, chronic CO2 retention, and the need for BiPAP and home oxygen (2L). - Current acute exacerbation appears to be triggered by aspiration, likely exacerbated by recent intensified coughing after meals. The patient had worsening respiratory distress following dinner, with increasing cough and suspected aspiration of food. - Initial ABG showed pH 7.25, pCO2 74, pO2 62, bicarb 33, indicative of respiratory acidosis. - CXR 08/01 showed extensive bilateral pneumonia, prominent vascular congestion. - Patient failed ST swallow screen. - Repeat ABG 08/15 10AM - pH 7.35, pCO2 80, decreased ePAP from 7 to 5, kept iPAP at 14. Repeat ABG showed pH 7.31, pCO2 87, increased iPAP to 16. Repeat ABG showed pH 7.32, pCO2 70. Plan: - On prednisone 15mg GT QD for ILD, taper will be managed outpatient by her veneer sander Dr. Jerez - Continue BiPAP all the time, adjust settings as tolerated - Continue strict NPO status - Levalbuterol Q6H PRN - Continuous pulse oximetry to closely monitor oxygen saturation. - Aspiration precautions. - Pulmonology consulted, patient deemed high risk for intubation and prolonged ventilator dependence. #Acute GI bleed #Normocytic anemia #Underlying ACD - Hemoglobin 11.8, MCV 101 on admission - Hgb 6.8 on 08/15, transfused 1 unit pRBC - Posttransfusion H&H 7.6 - FOBT positive 08/15 - Iron panel 08/10 showed low iron, TIBC, iron saturation, unsaturated iron binding, indicating ACD versus KAYCE Plan: - Re-consulted GI for possible GI bleed #Sepsis 2/2 #Staphylococcus epidermidis bacteremia #Pseudomonas aeruginosa UTI - Etiology: Staphylococcus epidermidis bacteremia with suspected urinary tract infection as the source? - Blood culture 08/01: 2/2 GPC bacteremia. Staphylococcus epidermidis. - UA: 1+ protein, 44 RBC, 76 WBC, amorphous crystals, budding yeast, leukocyte esterase positive. Previous culture was positive for pansensitive Klebsiella Ozaenae. - Urine culture 08/01: Pseudomonas aeruginosa. Sensitive to Zosyn. - CXR: extensive bilateral pneumonia, prominent vascular congestion. - Blood culture 08/03: 1/2 bottles [place] glabrata. Received one dose of Micafungin 50 mg. - Blood culture 08/05: NGTD - Blood culture 08/12: 1/2 bottles yeast - S/p fluids in ED - S/p Zosyn 2.25 g every 8 hours for UTI (08/01-08/08). Plan: - ID Dr Montero consulted, appreciate recommendations - Restart micafungin - Repeat blood cultures #Leukocytosis - WBC 23.2 on admission. - Likely now secondary to steroid taper above Plan: - Micafungin as above - CTM CBC #New onset Atrial fibrillation with RVR - EKG on 08/02 showed irregularly irregular rhythm rate 155 with RBBB. - No history of atrial fibrillation. - CHADSVASc score 6. - HASBLEED score 3. High Risk of major bleeding. - S/p 3 doses of digoxin (0.25 mg x2, 0.125 mg x1) 08/03 for tachycardia. - Was given diltiazem IV 20 mg x 1 and was started on diltiazem gtt. 5 mg/h which was increased to 10 mg/h as patient continued to remain tachycardic. Plan: - Cardiology Dr. Spencer consulted, appreciate recs. - Hold Eliquis 5mg GT BID - Diltiazem 90 mg GT QID - Amiodarone drip, will transition to amiodarone 200 mg BID tonight - Keep potassium greater than 4 and magnesium greater than 2 #Esophageal stenosis s/p dilation (08/08/25) #S/p PEG tube placement (08/08/25) - Hx of EGD with dilation for dysphagia secondary to esophageal stenosis on 02/08/2025. - Persistent dysphagia is a major contributor to recurrent aspiration and respiratory failure. - 08/08/25: esophageal dilation + PEG tube placement. Plan: - Tube feeds: At goal rate 65ml/hr. Water flush 30ml/hr x 22hrs as need if not on IV. TF to be hold for one hour before and after levothyroxine. #Insulin-dependent type 2 diabetes - Per caregiver the patient is on 35 units of Lantus every morning, sliding scale, and 8 units regular 3 times daily with meals. - Hemoglobin A1c 2 months ago was 6.4. - These continues to be elevated in 300s, up to 400s today. Plan: - Increased degludec to 40 units QD. - Increased SSI to step 3 #HFpEF (EF 60-65%) (08/02/2025) - BNP 193 on admission. - CXR (08/02/2025): extensive bilateral lung opacity, Mild enlargement cardiac contour with significant vascular congestion on physical exam 1+ edema noted bilateral hips. - Echo 08/02/25 showed EF of 60-65%. Indeterminate diastolic function due to A- fib. Mild concentric hypertrophy. Mild aortic valve sclerosis with no stenosis. Mild MR, mild MAC, mild TR. Plan: - Strict I and Os. - Fluid restriction 1500ml. - Daily weights - Cardiac diet - Cardiology consulted #Hyperlipidemia - Atorvastatin 10 mg GT #Hypothyroidism - TSH 1.32 - Levothyroxine 100 mcg GT - Tube feeds to be held for one hour before and after levothyroxine. #Chronic constipation - Per caregiver, the patient's last bowel movement was 07/30/2025 prior to admission. - KUB 08/04: large amounts of stool throughout the colon. - Last bowel movement 08/10. Plan: - Daily senna and MiraLAX. #Depression - Venlafaxine 150 mg GT BID. #Parkinson - Hold home pramipexole 1 mg GT #Lactic acidosis (resolved) #Hypernatremia (resolved) #Hyperkalemia (resolved) #NSTEMI type II (resolved) Health Maintenance Disposition: tele, PEG tube placement DVT prophylaxis: SCDs GI prophylaxis: Pantoprazole 40 mg IV daily Diet: NPO Queen: in place Lines: Peripheral IV, PEG tube, Central line CODE STATUS: DNR/DNI Patient plan of care was discussed with the senior resident, Dr. Cloud, and the attending physician, Dr. Warren. Sunni Gallagher DO, PGY-1
--- NOTE | 2025-08-15 12:07 | ESPR_ITS ---
Documentation for date of: 08/15/25 Subjective Subjective Interval history: 89 years old female evaluated PEG site looks good Exam Vital Signs Temp Pulse Resp BP Pulse Ox O2 Del Method O2 Flow Rate 97.0 F 94 20 141/64 H 95 BiPAP 4 08/15/25 11:36 08/15/25 11:40 08/15/25 11:36 08/15/25 11:40 08/15/25 11:36 08/15/25 11:36 08/15/25 11:36 FiO2 45 08/15/25 11:36 Objective Labs 08/15/25 15:11 08/15/25 15:11 Labs: Laboratory Results - last 24 hr 08/14/25 08/15/25 08/15/25 11:11 05:00 07:00 WBC 13.5 H RBC 2.34 L Hgb 7.1 L 6.8 L* Hct 25.3 L 24.3 L MCV 104 H MCH 29.1 MCHC 28.0 L RDW Std Deviation 63.9 H Plt Count 199 Neut % (Auto) 82 H Lymph % (Auto) 5 L [place] % (Auto) 7 Eos % (Auto) 1 Baso % (Auto) 1 Neut # (Auto) 11.0 H Lymph # (Auto) 0.6 L [place] # (Auto) 1.0 H Eos # (Auto) 0.1 Baso # (Auto) 0.1 Immature Gran # (Auto) 0.70 H Absolute Nucleated RBC 0.09 H Immature Gran % 5 H Nucleated RBC % 1 H Puncture Site ABG pH ABG pCO2 ABG pO2 ABG HCO3 ABG O2 Saturation ABG Base Excess FiO2 Sodium 138 Potassium 4.6 D Chloride 89 L Carbon Dioxide > 40.0 H Anion Gap 9 BUN 26 H Creatinine 1.0 Estim Creat Clear Calc 45.8 L eGFR 54 L BUN/Creatinine Ratio 26 H Glucose 346 H Calculated Osmolality 294 Calcium 10.6 Phosphorus 3.7 Magnesium 2.5 Blood Type O Positive Antibody Screen NEGATIVE Crossmatch See Detail Blood Bank Wristband ID Yes 08/15/25 10:00 WBC RBC Hgb Hct MCV MCH MCHC RDW Std Deviation Plt Count Neut % (Auto) Lymph % (Auto) [place] % (Auto) Eos % (Auto) Baso % (Auto) Neut # (Auto) Lymph # (Auto) [place] # (Auto) Eos # (Auto) Baso # (Auto) Immature Gran # (Auto) Absolute Nucleated RBC Immature Gran % Nucleated RBC % Puncture Site Left Radial ABG pH 7.35 ABG pCO2 80 H* ABG pO2 132 H ABG HCO3 44 H ABG O2 Saturation 100 H ABG Base Excess 17 H FiO2 21 Sodium Potassium Chloride Carbon Dioxide Anion Gap BUN Creatinine Estim Creat Clear Calc eGFR BUN/Creatinine Ratio Glucose Calculated Osmolality Calcium Phosphorus Magnesium Blood Type Antibody Screen Crossmatch Blood Bank Wristband ID Impressions Impression: Failure to thrive Dysphagia Status post placement of a PEG tube Acute hypoxic respiratory failure requiring recurrent BiPAP Continue current management ABG Interpretation ABG results: 08/01/25 08/01/25 08/02/25 02:15 09:05 12:15 ABG pH 7.25 L 7.30 L ABG pCO2 74 H* 66 H ABG pO2 62 L 84 D ABG HCO3 33 H 32 H ABG O2 Saturation 95 95 ABG Base Excess 4 H 4 H VBG pH 7.27 L VBG pCO2 63 H VBG pO2 Not Performed. VBG Base Excess 0 08/03/25 08/04/25 08/08/25 10:44 12:13 22:13 ABG pH 7.33 L 7.33 L 7.48 H ABG pCO2 64 H 69 H 53 H ABG pO2 88 85 259 H ABG HCO3 34 H 36 H 40 H ABG O2 Saturation 95 95 99 H ABG Base Excess 6 H 8 H 14 H VBG pH VBG pCO2 VBG pO2 VBG Base Excess 08/09/25 08/09/25 08/10/25 01:48 04:15 05:00 ABG pH 7.47 H 7.42 7.41 ABG pCO2 55 H 64 H 63 H ABG pO2 189 H D 97 D 64 L D ABG HCO3 40 H 41 H 40 H ABG O2 Saturation 100 H 100 H 96 ABG Base Excess 15 H 15 H 13 H VBG pH VBG pCO2 VBG pO2 VBG Base Excess 08/13/25 08/15/25 09:28 10:00 ABG pH 7.35 ABG pCO2 80 H* ABG pO2 132 H ABG HCO3 44 H ABG O2 Saturation 100 H ABG Base Excess 17 H VBG pH 7.55 VBG pCO2 53 VBG pO2 60 H VBG Base Excess 22 H Assessment & Plan A&P Narrative dnr status seems to be at baseline wbc may be steroid related multiple listed allergies. prior id eval in may noted. abn ua in an 89 y/o lady with pos cx noted. not clear if she followed advice for vaginal estrogen in may. ild hx noted with hypercapnea. confounding things a bit. is in house frequently on steroids. at most low grade temps soon after arrival. wbc may be related to steroids but is done popularly on a daily basis. nasal mrsa neg. so mrsa an unlikely player in pneumonia bc with coag neg and repeats appear to be neg for any staph. line placed rt chest approx 08/03 so is fast for yeast. echo neg. no objection to restarting micafungin but ok to leave her off as well no cough noted. no notable fever but is on steriods. best fever reducers on the planet but have other se's will see again prn Time Spent With Patient Time: Total time spent is greater than 50% in coordination of care (as documented) at patient's floor/unit and/or counseling patient:
--- NOTE | 2025-08-15 12:08 | PC.RT ---
Reduced epap from 7 to 5 per MD phone call at [phone]
[2025-08-15 12:25] LABS: Base Excess 16 (-3-3); HCO3 44 mEq/L (20-26); O2 Saturation 95 % (91-98); PCO2 87 mmHg (32.0-48.0); PO2 72 mmHg (83-108); pH, Arterial 7.31 (7.35-7.45)
[2025-08-15 12:26] LABS: Inspired Oxygen, FIO2 45 %
[2025-08-15 12:28] LABS: Allen Test Performed/OK; Puncture Site Left Radial
[2025-08-15] MEDS: MICAFUNGIN SODIUM INJ 100 MG in SODIUM CHLORIDE 0.9% 100 ML IV (12:32)
--- NOTE | 2025-08-15 14:33 | PC.SS ---
SS receieved a call from in regards to scheduling a GOC tomorrow with surrogate medical decision maker nephew, Jg Augustus . SS contacted Jg and he is available to be here tomorrow at 1130. SS updated Team A.
--- NOTE | 2025-08-15 14:34 | PC.SS ---
Rounding: Bipap settings to be adjusted, pt received transfusion. Plan for GOC tomorrow at 1130
[2025-08-15 15:41] LABS: Hematocrit 26.3 % (36.0-46.0)
[2025-08-15 15:46] LABS: Hemoglobin 7.6 g/dL (12.0-16.0)
[2025-08-15 16:08] LABS: HCO3 44 mEq/L (20-26); PO2 64 mmHg (83-108); pH, Arterial 7.32 (7.35-7.45)
[2025-08-15 16:13] LABS: PCO2 70 mmHg (32.0-48.0)
[2025-08-15 16:15] LABS: Allen Test Performed/OK; Base Excess 16 (-3-3); Inspired Oxygen, FIO2 45 %; O2 Saturation 93 % (91-98); Puncture Site Left Radial
[2025-08-15 16:17] LABS: Glucose 484 mg/dL (74-106)
[2025-08-15] MEDS: INSULIN LISPRO (AdmeLOG) 1 UNIT/0.01 ML UNIT 5 UNIT SC (17:27)
[2025-08-15] MEDS: ATORVASTATIN CALCIUM 10 MG TABLET GT (20:15)
[2025-08-15] MEDS: PRAMIPEXOLE 0.25 MG TABLET 1 MG GT (20:15)
[2025-08-15] MEDS: INSULIN DEGLUDEC 5 UNIT/0.05 ML (PER 5 UNITS) 40 UNIT SC (20:15)
[2025-08-15] MEDS: AMIODARONE HCL 200 MG TABLET PO (20:16)
[2025-08-16] VITALS (15 sets, daily range): BP systolic 115–142; BP diastolic 30–75; PULSE 60–108; RESP 10–36; TEMP 35.9–36.7; O2SAT 50–96; BMI 36.2
[2025-08-16] MEDS: INSULIN LISPRO (AdmeLOG) 1 UNIT/0.01 ML UNIT SC ×4 (00:03→17:35)
[2025-08-16] MEDS: LEVOTHYROXINE SODIUM 100 MCG TABLET GT (05:30)
[2025-08-16] MEDS: DILTIAZEM 30 MG TABLET 90 MG GT ×3 (05:30→17:40)
[2025-08-16 06:24] LABS: Basophils # (Auto) 0.1 Thou/mm3 (0.0-0.2); Basophils % (Auto) 1 % (0-2.5); Eosinophils # (Auto) 0.1 Thou/mm3 (0.0-0.5); Eosinophils % (Auto) 1 % (0-10); Hematocrit 26.6 % (36.0-46.0); Immature Granulocytes Auto 0.69 Thou/mm3 (0.00-0.00); Lymphocytes # (Auto) 0.4 Thou/mm3 (1.0-4.8); Lymphocytes % (Auto) 3 % (10-50); Mean Corpuscular HGB Conc 29.3 g/dl (31.0-37.0); Mean Corpuscular Hemoglobin 29.5 pg (25.0-35.0); Mean Corpuscular Volume 101 fL (80-100); Monocytes # (Auto) 0.9 Thou/mm3 (0.0-0.8); Monocytes % (Auto) 7 % (0-12); Neutrophils # (Auto) 11.3 Thou/mm3 (1.8-7.7); Neutrophils % (Auto) 84 % (37-80); Nucleated Red Blood Cell # 0.15 Thou/mm3 (0.00-0.00); Nucleated Red Blood Cell % 1 /100 WBC (0); Platelet Count 170 Thou/mm3 (140-440); RDW Standard Deviation 63.4 fL (36.4-46.3); Red Blood Count 2.64 Miln/mm3 (4.00-5.20); White Blood Count 13.4 Thou/mm3 (3.6-11.0)
[2025-08-16 06:29] LABS: Hemoglobin 7.8 g/dL (12.0-16.0)
[2025-08-16 06:40] LABS: Anion Gap 4 (7-16); BUN/Creatinine Ratio 29 Ratio (12-20); Blood Urea Nitrogen 29 mg/dL (9-23); Calcium 11.1 mg/dL (8.3-10.6); Carbon Dioxide > 40.0 mMol/L (20.0-31.0); Chloride 90 mMol/L (98-107); Creatinine (Component) 1.0 mg/dL (0.6-1.3); Estimated Creatinine Clearance 46.6 mL/min (>60); Glucose 343 mg/dL (74-106); Magnesium 2.3 mg/dL (1.6-2.6); Osmolality,Calculated 288 (275-295); Phosphorous 3.2 mg/dL (2.4-5.1); Potassium 4.7 mMol/L (3.4-5.1); Sodium 134 mMol/L (136-145); eGFR 54 See Note
[2025-08-16] MEDS: VENLAFAXINE 37.5 MG TABLET 150 MG GT (08:17)
[2025-08-16] MEDS: POLYETHYLENE GLYCOL 17 GM PACKET GT (08:17)
[2025-08-16] MEDS: AMIODARONE HCL 200 MG TABLET PO (08:17)
[2025-08-16] MEDS: MICAFUNGIN SODIUM INJ 100 MG in SODIUM CHLORIDE 0.9% 100 ML IV (08:18)
[2025-08-16] MEDS: PANTOPRAZOLE 40 MG TABLET PO (08:18)
[2025-08-16 08:33] LABS: Base Excess 16 (-3-3); HCO3 45 mEq/L (20-26); Inspired Oxygen, FIO2 45 %; O2 Saturation 95 % (91-98); PCO2 90 mmHg (32.0-48.0); PO2 73 mmHg (83-108); pH, Arterial 7.31 (7.35-7.45)
[2025-08-16 08:38] LABS: Allen Test Performed/OK; Puncture Site Right Radial
--- NOTE | 2025-08-16 08:41 | ESPR_ITS ---
Documentation for date of: 08/16/25 Subjective Subjective Interval history: Patient seen examined at bedside. Patient continues to be on BiPAP, heart rate well-controlled ranging 90s?100s. Continue amiodarone 200 mg twice daily and diltiazem 90 mg 4 times daily Eliquis being held due to hemoglobin drop. Patient has significant edema bilateral lower extremities, bicarb greater than 40, compensated metabolic alkalosis secondary to underlying severe respiratory acidosis. Consider diuresis with acetazolamide 500 mg x 1, will avoid Lasix as patient has bicarb greater than 40, patient has history of worsening respiratory failure with diuresis suppressing respiratory drive in the past per pulmonology note review. Goals of care discussion with family scheduled by primary team for today. Exam Vital Signs Temp Pulse Resp BP Pulse Ox O2 Del Method O2 Flow Rate 97.5 F 100 18 124/53 L 94 L BiPAP 94 08/16/25 08:00 08/16/25 08:17 08/16/25 08:00 08/16/25 08:17 08/16/25 08:00 08/16/25 08:00 08/16/25 08:00 FiO2 45 08/16/25 08:00 Narrative Exam General: Chronically ill-appearing woman, obese habitus, on bipap HEENT: Normocephalic, atraumatic. Heart:normal S1 and S2, no murmurs. Irregular rhythm Lungs: Minimal wheezing bilaterally Abdomen: Obese, firm, distended, tender. No guarding or rebound tenderness. Neurologic: Alert and oriented x3, no gross neurological deficit, and patient able to move all 4 extremities. Extremities: 1+ lower extremity edema and trace bilateral upper extremity edema, clubbing or cyanosis. No joint deformity. Skin: Warm and dry without rashes. : Queen in place, draining yellow urine. Objective Labs 08/16/25 05:45 08/16/25 05:45 Labs: Laboratory Results - last 24 hr 08/15/25 08/15/25 08/15/25 07:00 10:00 12:19 WBC RBC Hgb Hct MCV MCH MCHC RDW Std Deviation Plt Count Neut % (Auto) Lymph % (Auto) [place] % (Auto) Eos % (Auto) Baso % (Auto) Neut # (Auto) Lymph # (Auto) [place] # (Auto) Eos # (Auto) Baso # (Auto) Immature Gran # (Auto) Absolute Nucleated RBC Immature Gran % Nucleated RBC % Puncture Site Left Radial Left Radial ABG pH 7.35 7.31 L ABG pCO2 80 H* 87 H* ABG pO2 132 H 72 L D ABG HCO3 44 H 44 H ABG O2 Saturation 100 H 95 ABG Base Excess 17 H 16 H FiO2 21 45 Sodium Potassium Chloride Carbon Dioxide Anion Gap BUN Creatinine Estim Creat Clear Calc eGFR BUN/Creatinine Ratio Glucose Calculated Osmolality Calcium Phosphorus Magnesium Blood Type O Positive Antibody Screen NEGATIVE Crossmatch See Detail Blood Bank Wristband ID Yes 08/15/25 08/15/25 08/16/25 15:11 15:50 05:45 WBC 13.4 H RBC 2.64 L Hgb 7.6 L 7.8 L Hct 26.3 L 26.6 L MCV 101 H MCH 29.5 MCHC 29.3 L RDW Std Deviation 63.4 H Plt Count 170 Neut % (Auto) 84 H Lymph % (Auto) 3 L [place] % (Auto) 7 Eos % (Auto) 1 Baso % (Auto) 1 Neut # (Auto) 11.3 H Lymph # (Auto) 0.4 L [place] # (Auto) 0.9 H Eos # (Auto) 0.1 Baso # (Auto) 0.1 Immature Gran # (Auto) 0.69 H Absolute Nucleated RBC 0.15 H Immature Gran % 5 H Nucleated RBC % 1 H Puncture Site Left Radial ABG pH 7.32 L ABG pCO2 70 H D ABG pO2 64 L ABG HCO3 44 H ABG O2 Saturation 93 ABG Base Excess 16 H FiO2 45 Sodium 134 L Potassium 4.7 Chloride 90 L Carbon Dioxide > 40.0 H Anion Gap 4 L BUN 29 H Creatinine 1.0 Estim Creat Clear Calc 46.6 L eGFR 54 L BUN/Creatinine Ratio 29 H Glucose 484 H* D 343 H D Calculated Osmolality 288 Calcium 11.1 H Phosphorus 3.2 Magnesium 2.3 Blood Type Antibody Screen Crossmatch Blood Bank Wristband ID 08/16/25 08:27 WBC RBC Hgb Hct MCV MCH MCHC RDW Std Deviation Plt Count Neut % (Auto) Lymph % (Auto) [place] % (Auto) Eos % (Auto) Baso % (Auto) Neut # (Auto) Lymph # (Auto) [place] # (Auto) Eos # (Auto) Baso # (Auto) Immature Gran # (Auto) Absolute Nucleated RBC Immature Gran % Nucleated RBC % Puncture Site Right Radial ABG pH 7.31 L ABG pCO2 90 H* D ABG pO2 73 L ABG HCO3 45 H ABG O2 Saturation 95 ABG Base Excess 16 H FiO2 45 Sodium Potassium Chloride Carbon Dioxide Anion Gap BUN Creatinine Estim Creat Clear Calc eGFR BUN/Creatinine Ratio Glucose Calculated Osmolality Calcium Phosphorus Magnesium Blood Type Antibody Screen Crossmatch Blood Bank Wristband ID ABG Interpretation ABG results: 08/01/25 08/01/25 08/02/25 02:15 09:05 12:15 ABG pH 7.25 L 7.30 L ABG pCO2 74 H* 66 H ABG pO2 62 L 84 D ABG HCO3 33 H 32 H ABG O2 Saturation 95 95 ABG Base Excess 4 H 4 H VBG pH 7.27 L VBG pCO2 63 H VBG pO2 Not Performed. VBG Base Excess 0 08/03/25 08/04/25 08/08/25 10:44 12:13 22:13 ABG pH 7.33 L 7.33 L 7.48 H ABG pCO2 64 H 69 H 53 H ABG pO2 88 85 259 H ABG HCO3 34 H 36 H 40 H ABG O2 Saturation 95 95 99 H ABG Base Excess 6 H 8 H 14 H VBG pH VBG pCO2 VBG pO2 VBG Base Excess 08/09/25 08/09/25 08/10/25 01:48 04:15 05:00 ABG pH 7.47 H 7.42 7.41 ABG pCO2 55 H 64 H 63 H ABG pO2 189 H D 97 D 64 L D ABG HCO3 40 H 41 H 40 H ABG O2 Saturation 100 H 100 H 96 ABG Base Excess 15 H 15 H 13 H VBG pH VBG pCO2 VBG pO2 VBG Base Excess 08/13/25 08/15/25 08/15/25 09:28 10:00 12:19 ABG pH 7.35 7.31 L ABG pCO2 80 H* 87 H* ABG pO2 132 H 72 L D ABG HCO3 44 H 44 H ABG O2 Saturation 100 H 95 ABG Base Excess 17 H 16 H VBG pH 7.55 VBG pCO2 53 VBG pO2 60 H VBG Base Excess 22 H 08/15/25 08/16/25 15:50 08:27 ABG pH 7.32 L 7.31 L ABG pCO2 70 H D 90 H* D ABG pO2 64 L 73 L ABG HCO3 44 H 45 H ABG O2 Saturation 93 95 ABG Base Excess 16 H 16 H VBG pH VBG pCO2 VBG pO2 VBG Base Excess Quality Measures Quality Measures VTE prophylaxis Advance care planning discussed with:: patient Assessment & Plan Assessment Current Active Medications: Generic Name Dose Route Start Last Admin Trade Name Freq PRN Reason Stop Dose Admin Acetaminophen 650 mg 08/01/25 05:05 08/14/25 20:43 Acetaminophen 325 Mg Tablet PO 08/31/25 05:04 650 mg Q6H PRN Administration Fever >100.4 Amiodarone HCl 200 mg 08/15/25 21:00 08/16/25 08:17 Amiodarone Hcl 200 Mg Tablet PO 09/14/25 20:59 200 mg BID LISETTE Administration Apixaban 5 mg 08/08/25 21:00 08/14/25 20:36 Apixaban 2.5 Mg Tablet GT 09/07/25 20:59 5 mg On Hold: 08/15/25 06:42 BID LISETTE Administration Atorvastatin Calcium 10 mg 08/08/25 21:00 08/15/25 20:15 Atorvastatin Calcium 10 Mg Tablet GT 09/07/25 20:59 10 mg HS LISETTE Administration Dextrose 50 ml 08/01/25 05:16 Dextrose 50%-Water Inj 50 Ml Syringe IV 08/31/25 05:15 Q15MIN PRN BG <50 OR BG <70 & pt unresponsive Diltiazem HCl 90 mg 08/12/25 17:00 08/16/25 05:30 Diltiazem 30 Mg Tablet GT 09/11/25 16:59 90 mg QID LISETTE Administration Glucagon 1 mg 08/01/25 05:16 Glucagon Inj 1 Mg Vial IM Q15MIN PRN BG <70, and no IV access Micafungin Sodium 100 mg/ 100 mls @ 100 mls/hr 08/15/25 10:38 08/16/25 08:18 Sodium Chloride IV 08/30/25 10:37 100 mls/hr QDAY LISETTE Administration Protocol Insulin Degludec 40 unit 08/15/25 21:00 08/15/25 20:15 Insulin Degludec 5 Unit/0.05 Ml (Per 5 Units) SC 09/14/25 20:59 40 unit HS LISETTE Administration Insulin Human Lispro 0 unit 08/15/25 17:00 08/16/25 05:31 Insulin Lispro (Admelog) 1 Unit/0.01 Ml Unit SC 09/07/25 16:59 6 unit Q6HR LISETTE Administration Protocol Ipratropium [place] 0.5 mg 08/02/25 17:04 08/09/25 18:51 Ipratropium Rt 0.5 Mg/ 2.5 Ml Nebu INH 09/01/25 17:03 0.5 mg Q6HR PRN Administration SHORTNESS OF BREATH Protocol Levalbuterol HCl 0.63 mg 08/02/25 17:04 08/09/25 18:51 Levalbuterol Rt 0.63 Mg/3 Ml Nebu INH 09/01/25 17:03 0.63 mg Q6H PRN Administration WHEEZING Protocol Levothyroxine Sodium 100 mcg 08/09/25 06:00 08/16/25 05:30 Levothyroxine Sodium 100 Mcg Tablet GT 09/08/25 05:59 100 mcg ACBR LISETTE Administration Pantoprazole Sodium 40 mg 08/12/25 09:00 08/16/25 08:18 Pantoprazole 40 Mg Tablet PO 09/11/25 08:59 40 mg QDAY LISETTE Administration Polyethylene Glycol 17 gm 08/09/25 09:00 08/16/25 08:17 Polyethylene Glycol 17 Gm Packet GT 09/08/25 08:59 17 gm DAILY LISETTE Administration Pramipexole Dihydrochloride 1 mg 08/09/25 21:00 08/15/25 20:15 Pramipexole 0.25 Mg Tablet GT 09/08/25 20:59 1 mg HS LISETTE Administration Prednisone 15 mg 08/12/25 09:00 08/16/25 08:18 Prednisone 5 Mg Tablet GT 09/11/25 08:59 15 mg QDAY LISETTE Administration Sennosides 1 tab 08/09/25 09:00 08/16/25 08:18 Senna Tablet GT 09/08/25 08:59 1 tab QDAY LISETTE Administration Protocol Sodium Chloride 3 ml 08/01/25 02:11 Sodium Chloride Rt Sravani 0.9% 3 Ml Nebu INH 08/31/25 02:10 PRN PRN SOLN Venlafaxine HCl 150 mg 08/11/25 21:00 08/16/25 08:17 Venlafaxine 37.5 Mg Tablet GT 09/10/25 20:59 150 mg BID LISETTE Administration Plan Ms. Coffman is a 89-year-old female with past medical history of ILD/pulmonary fibrosis/chronic hypersensitivity pneumonitis with chronic respiratory failure on 2 L home oxygen and BiPAP currently on steroid taper, pulmonary arterial hypertension, heart failure with preserved ejection fraction, EF 60-65%, chronically bedbound, recurrent MDR UTIs, hypothyroidism, right breast cancer status postlumpectomy with lymph node dissection, insulin-dependent type 2 diabetes mellitus, GERD, depression, chronic back pain and nephrolithiasis who presented to [facility] emergency department on 08/01/2025 with a chief complaint of hypoxia. Cardiology was consulted for management of new onset Afib on EKG. #New Onset A Fib with RVR -diagnosed July 2025 Patient has SOB. Denies palpation or chest pain. EKG showed irregularly irregular rhythm rate 155 with RBBB. MAT ruled out. No history of atrial fibrillation CHADSVASc score 6 HASBLEED score 3. High Risk of major bleeding Was given diltiazem IV 20 mg x 1 and was started on diltiazem gtt. 5 mg/h which was increased to 10 mg/h as patient continued to remain tachycardic On August 03 patient was noted to be significantly tachycardic with low blood pressure, was given total IV digoxin 0.625 mg loading dose and now on Digoxin 0.125mg po qd - rate controlled now -On 08/11, Digoxin level was 1.1 Plan: -Patient was started on amiodarone gtt. after discussion with family, heart rate control improved and patient started on amiodarone 200 mg p.o. twice daily, continue. -Discontinue digoxin -Continue Cardizem 90 mg GT 4 times daily - Eliquis being held due to hemoglobin drop -Recommend Holter monitor outpatient to assess A fib burden. 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 Pulmonology notes reviewed. Patient steroid taper is being managed by resident clinic outpatient with recommendations from pulmonology remotely. Patient has had multiple admissions for hypercapnia, currently using BiPAP every night with [facility]. Patient does have history of heart failure, HFpEF with a EF 60 to 65%, never seen a supervising deputy outpatient, patient not on diuretics outpatient per resident clinic note as patient has chronic hypercapnia and diuresis causes contraction alkalosis causing further respiratory decompensation. CXR (08/02/2025): extensive bilateral lung opacity, Mild enlargement cardiac contour with significant vascular congestion on physical exam 1+ edema noted bilateral hips. Patient's underlying respiratory status and lieu of ILD flare/aspiration pneumonia ECHO (08/02/2025) showed: 1. Left ventricle size is normal and systolic function is normal. Estimated ejection fraction is 60-65%. There is indeterminate diastolic function due to afib. There is mild concentric hypertrophy noted. 2. Right ventricle is not well visualized. RV function appears normal. 3. There is mild aortic valve sclerosis with no stenosis. 4. Mild thickening of the mitral valve leaflets. Mild MR, mild MAC. Mild TR. 5. Normal IVC with estimated RA pressure 3 mmHg. 6. Prior study from 12/29/2024. Plan: -Bicarb greater than 40, swelling noted 1+ bilateral lower extremity and 1+ around hips and dependent area, recommend acetazolamide 500 mg x 1 -Strict intake and output, daily weight -Fluid restriction 1500ml, cardiac diet -Keep magnesium greater than 2 and potassium greater than 4 at all times -Management of respiratory disease per primary team #NSTEMI type II likely demand ischemia Patient presented with troponin elevation at 0.051, no troponin elevation however noted in the past patient on daily aspirin outpatient. Troponin eventually down trended to 0.030. Patient denied any chest pain Likely troponin elevation setting of demand ischemia secondary to underlying pulmonary disease and atrial fibrillation which was new onset. - Will consider outpatient stress testing -Will discontinue aspirin, plan is to continue Eliquis however it is being held due to drop in hemoglobin. - Monitor for chest pain #?Pulmonary Hypertension, Group III #Hx of Interstitial Lung Disease - Patient has established diagnosis of interstitial lung disease, pulmonary fibrosis secondary to chronic hypersensitivity pneumonitis - Patient had echo in the past with elevated right-sided pressures suggestive of pulmonary hypertension - Chest CT (08/01/2025): Pulmonary artery hypertension, Severe pneumonia and/or edema throughout the lungs - Recommend outpatient workup for pulmonary hypertension Plan: -BiPAP prn -Duoneb prn -Steroid taper per pulmonology # Hypertension In ED, 155/80 blood pressure well-controlled - Continue Cardizem 90 mg 4 times daily GT #Hypernatremia #Acute on chronic hypoxic hypercapnic respiratory failure, likely secondary to #Aspiration pneumonia #Sepsis #GPC bacteremia #Lactic acidosis #Leukocytosis #UTI #Insulin-dependent type 2 diabetes #Esophageal stenosis s/p dilation #Chronic normocytic anemia #Hyperlipidemia #Hypothyroidism #Chronic constipation #Depression #Parkinson -Management per Primary Hospitalist team Thank you for the consult and allowing to participate in the care of the patient. Cardiology will continue to follow. Case discussed with Attending Physician Dr. Steven Allen MD Internal Medicine PGY-2 Disclaimer: This note was dictated by speech recognition. Minor errors in straight knife machine cutter may be present due to voice recognition software. Attending Provider Attestation/Addendum I have personally seen and examined the patient separately on the above date of service and discussed the plan of care with the resident. I reviewed the resident Dr. Doron Allen consultation progress note and agree with the resident findings and plan in the note above and have also edited the documentation to reflect my findings and plan. Steven Spencer M.D. Interventional Cardiology
--- NOTE | 2025-08-16 09:03 | PC.SS ---
Addendum entered and electronically signed by DAXA Pino 08/16/25 15:13: Goals of care discussion held with patient's nephew, Jg Coffman and caretakers (Carrie Rascon, Ashley Cantor, Celine Bwoen). Resident provided overview and prognosis of the patient's condition. Patient's oxygen level has decreased, blood is acidic, more lethargic and GI bleed present. Prognosis described as poor. Medical decision maker, Jg Coffman; has agreed to transition the patient to hospice. Pref[facility] agency is [facility]. Patient to remain on PEG tube feedings. Family requesting that patient's feeds be decreased from 22 hrs to 12 hrs. WATERPROOFER informed family that lab engineer would be consulted on request. Patient currently on BI-PAP. WATERPROOFER informed family that respiratory will be consulted on oxygen mode needed for transport home (BI-PAP vs oxygen). Family requesting for patient to be transitioned home. Original Note: Update: Goals of care meeting scheduled for today at 11:30 am. Possible transition to hospice.
--- NOTE | 2025-08-16 09:48 | PD.RESPRO ---
Documentation for date of: 08/16/25 Exam Vital Signs Temp Pulse Resp BP Pulse Ox O2 Del Method O2 Flow Rate 97.5 F 100 18 124/53 L 94 L BiPAP 94 08/16/25 08:00 08/16/25 08:17 08/16/25 08:00 08/16/25 08:17 08/16/25 08:00 08/16/25 08:00 08/16/25 08:00 FiO2 45 08/16/25 08:00 Objective Labs 08/16/25 05:45 08/16/25 05:45 Labs: Laboratory Results - last 24 hr 08/15/25 08/15/25 08/15/25 07:00 10:00 12:19 WBC RBC Hgb Hct MCV MCH MCHC RDW Std Deviation Plt Count Neut % (Auto) Lymph % (Auto) [place] % (Auto) Eos % (Auto) Baso % (Auto) Neut # (Auto) Lymph # (Auto) [place] # (Auto) Eos # (Auto) Baso # (Auto) Immature Gran # (Auto) Absolute Nucleated RBC Immature Gran % Nucleated RBC % Puncture Site Left Radial Left Radial ABG pH 7.35 7.31 L ABG pCO2 80 H* 87 H* ABG pO2 132 H 72 L D ABG HCO3 44 H 44 H ABG O2 Saturation 100 H 95 ABG Base Excess 17 H 16 H FiO2 21 45 Sodium Potassium Chloride Carbon Dioxide Anion Gap BUN Creatinine Estim Creat Clear Calc eGFR BUN/Creatinine Ratio Glucose Calculated Osmolality Calcium Phosphorus Magnesium Blood Type O Positive Antibody Screen NEGATIVE Crossmatch See Detail Blood Bank Wristband ID Yes 08/15/25 08/15/25 08/16/25 15:11 15:50 05:45 WBC 13.4 H RBC 2.64 L Hgb 7.6 L 7.8 L Hct 26.3 L 26.6 L MCV 101 H MCH 29.5 MCHC 29.3 L RDW Std Deviation 63.4 H Plt Count 170 Neut % (Auto) 84 H Lymph % (Auto) 3 L [place] % (Auto) 7 Eos % (Auto) 1 Baso % (Auto) 1 Neut # (Auto) 11.3 H Lymph # (Auto) 0.4 L [place] # (Auto) 0.9 H Eos # (Auto) 0.1 Baso # (Auto) 0.1 Immature Gran # (Auto) 0.69 H Absolute Nucleated RBC 0.15 H Immature Gran % 5 H Nucleated RBC % 1 H Puncture Site Left Radial ABG pH 7.32 L ABG pCO2 70 H D ABG pO2 64 L ABG HCO3 44 H ABG O2 Saturation 93 ABG Base Excess 16 H FiO2 45 Sodium 134 L Potassium 4.7 Chloride 90 L Carbon Dioxide > 40.0 H Anion Gap 4 L BUN 29 H Creatinine 1.0 Estim Creat Clear Calc 46.6 L eGFR 54 L BUN/Creatinine Ratio 29 H Glucose 484 H* D 343 H D Calculated Osmolality 288 Calcium 11.1 H Phosphorus 3.2 Magnesium 2.3 Blood Type Antibody Screen Crossmatch Blood Bank Wristband ID 08/16/25 08:27 WBC RBC Hgb Hct MCV MCH MCHC RDW Std Deviation Plt Count Neut % (Auto) Lymph % (Auto) [place] % (Auto) Eos % (Auto) Baso % (Auto) Neut # (Auto) Lymph # (Auto) [place] # (Auto) Eos # (Auto) Baso # (Auto) Immature Gran # (Auto) Absolute Nucleated RBC Immature Gran % Nucleated RBC % Puncture Site Right Radial ABG pH 7.31 L ABG pCO2 90 H* D ABG pO2 73 L ABG HCO3 45 H ABG O2 Saturation 95 ABG Base Excess 16 H FiO2 45 Sodium Potassium Chloride Carbon Dioxide Anion Gap BUN Creatinine Estim Creat Clear Calc eGFR BUN/Creatinine Ratio Glucose Calculated Osmolality Calcium Phosphorus Magnesium Blood Type Antibody Screen Crossmatch Blood Bank Wristband ID ABG Interpretation ABG results: 08/01/25 08/01/25 08/02/25 02:15 09:05 12:15 ABG pH 7.25 L 7.30 L ABG pCO2 74 H* 66 H ABG pO2 62 L 84 D ABG HCO3 33 H 32 H ABG O2 Saturation 95 95 ABG Base Excess 4 H 4 H VBG pH 7.27 L VBG pCO2 63 H VBG pO2 Not Performed. VBG Base Excess 0 08/03/25 08/04/25 08/08/25 10:44 12:13 22:13 ABG pH 7.33 L 7.33 L 7.48 H ABG pCO2 64 H 69 H 53 H ABG pO2 88 85 259 H ABG HCO3 34 H 36 H 40 H ABG O2 Saturation 95 95 99 H ABG Base Excess 6 H 8 H 14 H VBG pH VBG pCO2 VBG pO2 VBG Base Excess 08/09/25 08/09/25 08/10/25 01:48 04:15 05:00 ABG pH 7.47 H 7.42 7.41 ABG pCO2 55 H 64 H 63 H ABG pO2 189 H D 97 D 64 L D ABG HCO3 40 H 41 H 40 H ABG O2 Saturation 100 H 100 H 96 ABG Base Excess 15 H 15 H 13 H VBG pH VBG pCO2 VBG pO2 VBG Base Excess 08/13/25 08/15/25 08/15/25 09:28 10:00 12:19 ABG pH 7.35 7.31 L ABG pCO2 80 H* 87 H* ABG pO2 132 H 72 L D ABG HCO3 44 H 44 H ABG O2 Saturation 100 H 95 ABG Base Excess 17 H 16 H VBG pH 7.55 VBG pCO2 53 VBG pO2 60 H VBG Base Excess 22 H 08/15/25 08/16/25 15:50 08:27 ABG pH 7.32 L 7.31 L ABG pCO2 70 H D 90 H* D ABG pO2 64 L 73 L ABG HCO3 44 H 45 H ABG O2 Saturation 93 95 ABG Base Excess 16 H 16 H VBG pH VBG pCO2 VBG pO2 VBG Base Excess Quality Measures Quality Measures VTE prophylaxis Assessment & Plan Assessment Current Active Medications: Generic Name Dose Route Start Last Admin Trade Name Freq PRN Reason Stop Dose Admin Acetaminophen 650 mg 08/01/25 05:05 08/14/25 20:43 Acetaminophen 325 Mg Tablet PO 08/31/25 05:04 650 mg Q6H PRN Administration Fever >100.4 Amiodarone HCl 200 mg 08/15/25 21:00 08/16/25 08:17 Amiodarone Hcl 200 Mg Tablet PO 09/14/25 20:59 200 mg BID LISETTE Administration Apixaban 5 mg 08/08/25 21:00 08/14/25 20:36 Apixaban 2.5 Mg Tablet GT 09/07/25 20:59 5 mg On Hold: 08/15/25 06:42 BID LISETTE Administration Atorvastatin Calcium 10 mg 08/08/25 21:00 08/15/25 20:15 Atorvastatin Calcium 10 Mg Tablet GT 09/07/25 20:59 10 mg HS LISETTE Administration Dextrose 50 ml 08/01/25 05:16 Dextrose 50%-Water Inj 50 Ml Syringe IV 08/31/25 05:15 Q15MIN PRN BG <50 OR BG <70 & pt unresponsive Diltiazem HCl 90 mg 08/12/25 17:00 08/16/25 05:30 Diltiazem 30 Mg Tablet GT 09/11/25 16:59 90 mg QID LISETTE Administration Glucagon 1 mg 08/01/25 05:16 Glucagon Inj 1 Mg Vial IM Q15MIN PRN BG <70, and no IV access Micafungin Sodium 100 mg/ 100 mls @ 100 mls/hr 08/15/25 10:38 08/16/25 08:18 Sodium Chloride IV 08/30/25 10:37 100 mls/hr QDAY LISETTE Administration Protocol Insulin Degludec 40 unit 08/15/25 21:00 08/15/25 20:15 Insulin Degludec 5 Unit/0.05 Ml (Per 5 Units) SC 09/14/25 20:59 40 unit HS LISETTE Administration Insulin Human Lispro 0 unit 08/15/25 17:00 08/16/25 05:31 Insulin Lispro (Admelog) 1 Unit/0.01 Ml Unit SC 09/07/25 16:59 6 unit Q6HR LISETTE Administration Protocol Ipratropium [place] 0.5 mg 08/02/25 17:04 08/09/25 18:51 Ipratropium Rt 0.5 Mg/ 2.5 Ml Nebu INH 09/01/25 17:03 0.5 mg Q6HR PRN Administration SHORTNESS OF BREATH Protocol Levalbuterol HCl 0.63 mg 08/02/25 17:04 08/09/25 18:51 Levalbuterol Rt 0.63 Mg/3 Ml Nebu INH 09/01/25 17:03 0.63 mg Q6H PRN Administration WHEEZING Protocol Levothyroxine Sodium 100 mcg 08/09/25 06:00 08/16/25 05:30 Levothyroxine Sodium 100 Mcg Tablet GT 09/08/25 05:59 100 mcg ACBR LISETTE Administration Pantoprazole Sodium 40 mg 08/12/25 09:00 08/16/25 08:18 Pantoprazole 40 Mg Tablet PO 09/11/25 08:59 40 mg QDAY LISETTE Administration Polyethylene Glycol 17 gm 08/09/25 09:00 08/16/25 08:17 Polyethylene Glycol 17 Gm Packet GT 09/08/25 08:59 17 gm DAILY LISETTE Administration Pramipexole Dihydrochloride 1 mg 08/09/25 21:00 08/15/25 20:15 Pramipexole 0.25 Mg Tablet GT 09/08/25 20:59 1 mg HS LISETTE Administration Prednisone 15 mg 08/12/25 09:00 08/16/25 08:18 Prednisone 5 Mg Tablet GT 09/11/25 08:59 15 mg QDAY LISETTE Administration Sennosides 1 tab 08/09/25 09:00 08/16/25 08:18 Senna Tablet GT 09/08/25 08:59 1 tab QDAY LISETTE Administration Protocol Sodium Chloride 3 ml 08/01/25 02:11 Sodium Chloride Rt Sravani 0.9% 3 Ml Nebu INH 08/31/25 02:10 PRN PRN SOLN Venlafaxine HCl 150 mg 08/11/25 21:00 08/16/25 08:17 Venlafaxine 37.5 Mg Tablet GT 09/10/25 20:59 150 mg BID LISETTE Administration
[2025-08-16 12:07] LABS: Base Excess 18 (-3-3); HCO3 46 mEq/L (20-26); Inspired Oxygen, FIO2 45 %; O2 Saturation 93 % (91-98); PCO2 90 mmHg (32.0-48.0); PO2 65 mmHg (83-108); pH, Arterial 7.32 (7.35-7.45)
[2025-08-16 12:11] LABS: Allen Test Performed/OK; Puncture Site Left Radial
--- NOTE | 2025-08-16 12:42 | PD.RESDS ---
Planned Discharge Date 08/16/25 DS: Providers Provider Date of admission: 08/01/25 05:05 Primary care physician: Physician No Primary/Family Admitting Provider: Jes Sol MD Attending Provider on Admission: John Paul Warren MD Consults: 08/01/25 06:26 Referral Speech Therapy Routine Comment: 08/02/25 11:09 Consult to Gastroenterology Routine Comment: regurgitation Consulting Provider: Vicenta Peters 08/02/25 11:57 Consult to Cardiology Routine Comment: Consulting Provider: Steven Spencer 08/04/25 10:09 Consult to Pulmonology Routine Comment: pre-EGD clearance Consulting Provider: Justin Jerez I 08/05/25 09:55 Consult to Infectious Diseases Routine Comment: Consulting Provider: Walter Montero Consult to Infectious Diseases Stat Comment: Consulting Provider: Walter Montero 08/08/25 15:25 Referral Registered Dietitian Routine Comment: 08/09/25 18:19 Referral Speech Therapy Routine Comment: Attending Provider on DC: Allan Schmidt DO Discharging Provider: Sunni Gallagher DO Hospital Course Hospital Course Hospital course: Reason for hospitalization: Patient is a 89-year-old female with chronic ILD/pulmonary fibrosis with chronic CO2 retention on home BiPAP, 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 Hospital course was complicated by sepsis from Pseudomonas UTI, new-onset atrial fibrillation with RVR, severe dysphagia requiring NPO status and PEG tube placement on 08/08/25 after failing esophageal dilatation, and limited respiratory reserve with inability to tolerate sustained wean from BiPAP. Blood cultures at different points in time grew Staph episdermidis and Cheyenne glabrata, completed 7 day course of Zosyn. Un Had goals of care discussion with patient's nephew Jg, and other family members regarding patient's poor prognosis and treatment options at this time, either pursuing further treatment with intubation and likely requiring tracheostomy versus home with hospice. Explanation of risks and benefits for each were provided. After lengthy discussion and taking into consideration patient's wishes, nephew and family decided to pursue home with hospice. Discharge Recommendations: START amiodarone 200 mg twice a day and diltiazem 30 mg four times a day via PEG tube STOP aspirin 81 daily and rosuvastatin STOP using INSULIN ASPART and continue with INSULIN GLARGINE and INSULIN LISPRO as prescribed below. Continue taking medications as prescribed below. If symptoms worsen, further care management per hospice team Hospital Diagnoses: #GOC #Acute on chronic hypoxic hypercapnic respiratory failure, likely secondary to #Aspiration pneumonia #Pulmonary arterial hypertension #Interstitial lung disease #Pulmonary fibrosis #Acute GI bleed #Normocytic anemia #Underlying ACD #Sepsis 2/2 #Staphylococcus epidermidis bacteremia #Pseudomonas aeruginosa UTI #Leukocytosis #New onset Atrial fibrillation with RVR #Esophageal stenosis s/p dilation (08/08/25) #S/p PEG tube placement (08/08/25) #Insulin-dependent type 2 diabetes #HFpEF (EF 60-65%) (08/02/2025) #Hyperlipidemia #Hypothyroidism #Chronic constipation #Depression #Parkinson #Lactic acidosis (resolved) #Hypernatremia (resolved) #Hyperkalemia (resolved) #NSTEMI type II (resolved) Disposition: Discharged home with hospice Time Spent with Patient Time attestation: Total time spent providing and/or coordinating discharge services: Exam Vital Signs Temp Pulse Resp BP Pulse Ox O2 Del Method O2 Flow Rate 97.7 F 102 H 27 H 142/75 H 92 L BiPAP 94 08/16/25 12:00 08/16/25 12:00 08/16/25 12:00 08/16/25 12:00 08/16/25 12:00 08/16/25 12:00 08/16/25 12:00 FiO2 45 08/16/25 12:00 Narrative Exam Physical Exam General: Drowsy however following commands. On BiPAP. GCS 11. HEENT: Normocephalic, atraumatic, mucous membranes dry. Poor dentition. Heart: Irregular rhythm. Rate controlled, normal S1 and S2, no murmurs appreciated. Lungs: Decreased breath sounds. Diffuse crackles. Abdomen: Soft, nondistended, nontender, positive bowel sounds. No guarding or rebound tenderness. PEG tube in place, dried blood around insertion site. No surrounding wounds or erythema. Neurologic: No gross neurological deficit, and patient able to move all 4 extremities. Extremities: Trace lower extremity edema up to calves. Skin: No rash or ecchymoses. Discharge Plan Plan Patient Disposition: Home w/HOSPICE Care Plan Goals: START amiodarone 200 mg twice a day and diltiazem 30 mg four times a day via PEG tube STOP aspirin 81 daily and rosuvastatin STOP using INSULIN ASPART and continue with INSULIN GLARGINE and INSULIN LISPRO as prescribed below. Continue taking medications as prescribed below. If symptoms worsen, further care management per hospice team Prescriptions/Referrals Prescriptions/Med Rec: New amiodarone 200 mg Tablet 200 mg PO BID Qty: 0 0RF diltiazem HCl 30 mg Tablet 90 mg G-tube QID Qty: 0 0RF insulin lispro 100 unit/mL Solution 0 unit subcut Q6HR Qty: 0 0RF insulin degludec 100 unit/mL Solution 40 unit subcut HS Qty: 0 0RF Continued pramipexole 1 mg tablet 1 mg PO QHS Qty: 30 2RF venlafaxine 150 mg capsule,extended release 24hr 150 mg PO QDAY Qty: 30 2RF metoprolol succinate 25 mg tablet extended release 24 hr 25 mg PO QDAY Qty: 30 2RF (DME) insulin syringes (disposable) 1 mL syringe See Rx Instructions .Route Qty: 500 0RF Rx Instructions: As directed (DME) pen needle, diabetic [1st Tier Unifine Pentips] 31 gauge x 1/4 needle See Rx Instructions .Route Qty: 100 0RF Rx Instructions: As directed (DME) pen needle, diabetic [Comfort EZ Pen [place]] 31 gauge x 1/4 needle See Rx Instructions .Route Qty: 100 2RF Rx Instructions: As directed metformin 500 mg tablet 500 mg PO BID Qty: 60 2RF (DME) insulin syringes (disposable) 1 mL syringe See Rx Instructions .Route Qty: 500 2RF Rx Instructions: As directed levothyroxine 100 mcg tablet 100 mcg PO QDAY 30 Days Qty: 30 2RF omeprazole 40 mg Capsule,Delayed Release(Dr/Ec) 40 mg PO QDAY hydrocodone-acetaminophen 10-325 mg tablet 1 tab PO TID PRN (Reason: pain) prednisone 10 mg tablet See Taper PO QDAY Qty: 375 0RF Taper: Prednisone Taper 30 mg TWICE A DAY for 30 Days and 0 Hour 30 mg DAILY for 30 Days and 0 Hour 20 mg DAILY for 30 Days and 0 Hour 10 mg DAILY for 30 Days 5 mg DAILY for 30 Days (DME) pen needle, diabetic [Advocate Pen Needle] 31 gauge x 3/16 needle See Rx Instructions .Route Qty: 1200 0RF Rx Instructions: As directed hydroxyzine HCl 25 mg tablet 25 mg PO BID PRN (Reason: anxiety) Discontinued insulin aspart U-100 [Novolog FlexPen U-100 Insulin] 100 unit/mL (3 mL) insulin pen 1 sliding scale dose subcut USEASDIRECTD PRN (Reason: hyperglycemia) Qty: 15 0RF Rx Instructions: Take insulin as per sliding scale insulin glargine [Lantus Solostar U-100 Insulin] 100 unit/mL (3 mL) insulin pen 35 unit subcut QAM 30 Days Qty: 10.5 2RF insulin lispro 100 unit/mL solution 8 unit subcut TID 30 Days Qty: 7.2 2RF Rx Instructions: Inject 6 units subcutaneously three times daily with meals rosuvastatin 5 mg tablet 5 mg PO HS 30 Days Qty: 30 2RF methenamine hippurate 1 gram tablet 1 g PO BID Patient Comments: TAKE 1 TABLET BY MOUTH TWICE A DAY WITH 500 MG OF VITAMIN C Rx Instructions: TAKE 1 TABLET BY MOUTH TWICE A DAY WITH 500 MG OF VITAMIN C aspirin 81 mg Tablet 81 mg PO QDAY Probiotic 20 billion cell capsule 25,000 mmu cells PO QDAY Rx Instructions: administer with a meal Referrals: No Primary/Family,Physician [Primary Care Provider] Patient/Caregiver Discharge Instructions Education Materials: Hospice Dyspnea Care, Understanding PEG Tube Feeding Print Language: Persian Stand Alone Forms: Ysabel Award Info., Patient Portal Info Letter Discharge Order Discharge Orders: Discharge (Routine); Ordered 08/16/25 Ordered By: Sunni Gallagher
--- NOTE | 2025-08-16 15:13 | PC.SS ---
PRICING COORDINATOR contacted [facility] hospice staff, Terrie Neely. PRICING COORDINATOR confirmed that [facility] hospice can accept the patient with BI-PAP and PEG tube. PRICING COORDINATOR informed [facility] hospice that patient possesses home BI-PAP. PRICING COORDINATOR informed [facility] that family relayed that home BI-PAP might need to be replaced. [facility] to follow up with patient's family. Hospice referral to be submitted.
--- NOTE | 2025-08-16 15:16 | PC.SS ---
DIESEL LOCOMOTIVE CRANE OPERATOR confirmed with help desk rep that patient's feeds can be decreased to either 16 or 22 hours. Weight Engineer informed DIESEL LOCOMOTIVE CRANE OPERATOR that family had been advised of discretion to decrease duration of feeds as they deemed appropriate. DIESEL LOCOMOTIVE CRANE OPERATOR confirmed with respiratory that patient will need to transport home with BI-PAP. Patient's family will need to bring home BI-PAP for patient to be transitioned to and the home BI-PAP to be utilized for transport home. DIESEL LOCOMOTIVE CRANE OPERATOR to update [facility].
--- NOTE | 2025-08-16 15:34 | PC.RT ---
Upon NIV assessment, NIV mask was removed to assess nose or any redness. Breakdown was noted on left side of patients nose with dry blood. RN Bianca aware of breakdown.
--- NOTE | 2025-08-16 16:23 | ESPR_ITS ---
Documentation for date of: 08/16/25 Subjective Subjective Interval history: patient evaluated PEG site looks good Exam Vital Signs Temp Pulse Resp BP Pulse Ox O2 Del Method O2 Flow Rate 97.7 F 104 H 36 H 142/75 H 92 L BiPAP 94 08/16/25 12:00 08/16/25 15:26 08/16/25 15:26 08/16/25 12:00 08/16/25 15:26 08/16/25 12:00 08/16/25 12:00 FiO2 80 08/16/25 15:26 Objective Labs 08/16/25 05:45 08/16/25 05:45 Labs: Laboratory Results - last 24 hr 08/16/25 08/16/25 08/16/25 05:45 08:27 12:01 WBC 13.4 H RBC 2.64 L Hgb 7.8 L Hct 26.6 L MCV 101 H MCH 29.5 MCHC 29.3 L RDW Std Deviation 63.4 H Plt Count 170 Neut % (Auto) 84 H Lymph % (Auto) [address] [place] % (Auto) 7 Eos % (Auto) 1 Baso % (Auto) 1 Neut # (Auto) 11.3 H Lymph # (Auto) 0.[address] # (Auto) 0.9 H Eos # (Auto) 0.1 Baso # (Auto) 0.1 Immature Gran # (Auto) 0.69 H Absolute Nucleated RBC 0.15 H Immature Gran % 5 H Nucleated RBC % 1 H Puncture Site Right Radial Left Radial ABG pH 7.31 L 7.32 L ABG pCO2 90 H* D 90 H* ABG pO2 73 L 65 L ABG HCO3 45 H 46 H ABG O2 Saturation 95 93 ABG Base Excess 16 H 18 H FiO2 45 45 Sodium 134 L Potassium 4.7 Chloride 90 L Carbon Dioxide > 40.0 H Anion Gap 4 L BUN 29 H Creatinine 1.0 Estim Creat Clear Calc 46.6 L eGFR 54 L BUN/Creatinine Ratio 29 H Glucose 343 H D Calculated Osmolality 288 Calcium 11.1 H Phosphorus 3.2 Magnesium 2.3 Impressions Impression: Dysphagia failure to thrive Status post PEG placement continue current management ABG Interpretation ABG results: 08/01/25 08/01/25 08/02/25 02:15 09:05 12:15 ABG pH 7.25 L 7.30 L ABG pCO2 74 H* 66 H ABG pO2 62 L 84 D ABG HCO3 33 H 32 H ABG O2 Saturation 95 95 ABG Base Excess 4 H 4 H VBG pH 7.27 L VBG pCO2 63 H VBG pO2 Not Performed. VBG Base Excess 0 08/03/25 08/04/25 08/08/25 10:44 12:13 22:13 ABG pH 7.33 L 7.33 L 7.48 H ABG pCO2 64 H 69 H 53 H ABG pO2 88 85 259 H ABG HCO3 34 H 36 H 40 H ABG O2 Saturation 95 95 99 H ABG Base Excess 6 H 8 H 14 H VBG pH VBG pCO2 VBG pO2 VBG Base Excess 08/09/25 08/09/25 08/10/25 01:48 04:15 05:00 ABG pH 7.47 H 7.42 7.41 ABG pCO2 55 H 64 H 63 H ABG pO2 189 H D 97 D 64 L D ABG HCO3 40 H 41 H 40 H ABG O2 Saturation 100 H 100 H 96 ABG Base Excess 15 H 15 H 13 H VBG pH VBG pCO2 VBG pO2 VBG Base Excess 08/13/25 08/15/25 08/15/25 09:28 10:00 12:19 ABG pH 7.35 7.31 L ABG pCO2 80 H* 87 H* ABG pO2 132 H 72 L D ABG HCO3 44 H 44 H ABG O2 Saturation 100 H 95 ABG Base Excess 17 H 16 H VBG pH 7.55 VBG pCO2 53 VBG pO2 60 H VBG Base Excess 22 H 08/15/25 08/16/25 08/16/25 15:50 08:27 12:01 ABG pH 7.32 L 7.31 L 7.32 L ABG pCO2 70 H D 90 H* D 90 H* ABG pO2 64 L 73 L 65 L ABG HCO3 44 H 45 H 46 H ABG O2 Saturation 93 95 93 ABG Base Excess 16 H 16 H 18 H VBG pH VBG pCO2 VBG pO2 VBG Base Excess Assessment & Plan A&P Narrative dnr status seems to be at baseline wbc may be steroid related multiple listed allergies. prior id eval in may noted. abn ua in an 89 y/o lady with pos cx noted. not clear if she followed advice for vaginal estrogen in may. ild hx noted with hypercapnea. confounding things a bit. is in house frequently on steroids. at most low grade temps soon after arrival. wbc may be related to steroids but is done popularly on a daily basis. nasal mrsa neg. so mrsa an unlikely player in pneumonia bc with coag neg and repeats appear to be neg for any staph. line placed rt chest approx 08/03 so is fast for yeast. echo neg. no objection to restarting micafungin but ok to leave her off as well no cough noted. no notable fever but is on steriods. best fever reducers on the planet but have other se's will see again prn Time Spent With Patient Time: Total time spent is greater than 50% in coordination of care (as documented) at patient's floor/unit and/or counseling patient:
[2025-08-16] MEDS: MORPHINE SULF INJ 4 MG/ML VIAL 1 MG IVP (18:06)
[2025-08-16] MEDS: Morphine IV Drip 100mg/100ml 100 ML IV (18:36)
--- NOTE | 2025-08-16 18:38 | PD.RESEVENT ---
Documentation for date of: 08/16/25 Event Note Event Note: Got called by ICU charge nurse at 5:30 PM notifying that patient is clinically deteriorating, oxygen saturation dropped to 83% despite maximum BiPAP support. Per respiratory therapy at bedside, patient would not be able to make it home given her respiratory decompensation. Family member Celine was at bedside, spoke to nephew Jg over phone and updated him on patient's rapid deterioration. Had lengthy discussion regarding comfort care and what it entails in comparison to hospice. Given current condition, he was agreeable to transitioning patient to comfort care. was called. Nephew will try to come to bedside but would like to have comfort care initiated. IV morphine drip was started, all other life sustaining treatments were discontinued. Patient plan of care was discussed with the attending physician, Dr. Schmidt. Sunni Gallagher DO, PGY-1
--- NOTE | 2025-08-16 19:01 | PC.NURSE ---
Patient pronounced at [address] Gallagher. Family at bedside.
--- NOTE | 2025-08-16 19:04 | PD.DPN ---
Documentation for date of: 08/16/25 Pronouncement Note Date and Time of Date of : 08/16/25 Time of : 19:01 PCOD Preliminary cause of : Cardiopulmonary arrest Summary Additional details: I was called to patient's bedside to pronounce that Adelaida Coffman, 89-year-old female, had . No spontaneous movements present. No response to verbal or tactile stimuli. Pupils mid-dilated, fixed, and unresponsive to light. No breath sounds appreciated over either lung chandra. No heart sounds auscultated over entire precordium. Patient pronounced at 1901 on 08/16/2025. Confirmed and witnessed by nurse. Family was present at bedside when patient passed, and condolences were given. Additional Data Confirmation of : no pulse, no respirations, no heart sounds and pupils fixed and dilated Family: at bedside and contacted Additional persons at bedside: other (RN) Attending/PCP notified?: Yes Attending physician: Allan Schmidt MD Was code activated?: No
--- NOTE | 2025-08-16 19:09 | PC.NURSE ---
1730- patient oxygen saturation sustaing to 84% on 100% fio2, called dr pickering and made aware, dr. pickering here and talk to family, family decided to change status to comfort measure now, gave 1mg morphine now for patient comfort.
--- NOTE | 2025-08-16 19:26 | PC.NURSE ---
[facility] called at , spoke to Luz who released the patient for organ donation. [facility]# [phone].
--- NOTE | 2025-08-16 19:59 | DES_ITS ---
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 Throughout admission, patient's oxygen demand increased daily despite IV steroids and transition to NPO status early into her admission. Her ground operations supervisor Dr. Jerez was consulted. In the setting of esophageal stenosis with severe dysphagia, discussion was held regarding [facility] nutrition. GI was consulted. On 08/08/25, patient and family opted for PEG tube placement despite risk of inability to extubate after sedation, she was subsequently transferred to ICU for 3 days due to this reason until she was successfully extubated. Eventually she had such limited respiratory reserve and was unable to tolerate sustained wean from BiPAP and transitioned to permanant NPO status due to recurrent aspirations. Hospital course was further complicated by sepsis from Pseudomonas UTI. Blood cu ltures at different points in time grew Staph epidermidis and Cheyenne glabrata, completed 7 day course of vancomycin, 7 day course of Zosyn, and 3 days of micafungin. ID was consulted. She also developed new-onset atrial fibrillation with RVR. Attempted digoxin at one point but was later discontinued, was later controlled on amiodarone and diltiazem per cardiology recommendations. Today at 11:30AM, had goals of care discussion with patient's nephew Jg, and other family members regarding patient's poor prognosis and treatment options at this time, either pursuing further treatment with intubation and likely requiring tracheostomy versus home with hospice. Explanation of risks and benefits for each were provided. After lengthy discussion and taking into consideration patient's wishes, nephew and family decided to pursue home with hospice. At 5:30 PM, was notified by ICU charge nurse that patient was clinically deteriorating, oxygen saturation dropped to 83% despite maximum BiPAP support. Per respiratory therapy at bedside, patient would not be able to make it home given her respiratory decompensation. Family member Celine was at bedside, spoke to nephew Gj over phone and updated him on patient's rapid deterioration. Had lengthy discussion regarding comfort care and what it entails in comparison to hospice. Given current condition, he was agreeable to transitioning patient to comfort care. was called. Nephew will try to come to bedside but would like to have comfort care initiated. IV morphine drip was started, all other life sustaining treatments were discontinued. At 7:01 PM, patient with family at bedside. 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 Cloud, and the attending physician, Dr. Schmidt. Sunni Gallagher DO, PGY-1 Additional Data Confirmation of as documented by pronouncing clinician: no pulse, no respirations, no heart sounds and pupils fixed and dilated Family: at bedside and contacted Additional persons at bedside: other (RN) Attending/PCP notified?: Yes Attending physician: Allan Schmidt MD Was code activated?: No Visit Providers Provider Primary care physician: Physician No Primary/Family Consults: 08/01/25 06:26 Referral Speech Therapy Routine Comment: 08/09/25 18:19 Referral Speech Therapy Routine Comment: 08/16/25 17:59 Referral Haley Stat Comment: Diagnosis PCOD Cause of : Cardiopulmonary arrest Discharge Plan Plan Patient Disposition: Prescriptions/Referrals Referrals: No Primary/Family,Physician [Primary Care Provider] Patient/Caregiver Discharge Instructions Print Language: Wallisian Stand Alone Forms: Ysabel Award Info., Patient Portal Info Letter Discharge Order Discharge Orders: Discharge (Routine); Ordered 08/16/25 Ordered By: Sunni Gallagher
== END 2025-08-16 19:01 | disposition expired | DRG 177 ==
LOC: SERX 04:35 → SERHOLD 05:22 → S2NX 14:00 → S2SX 08-08 15:34 → S3NX 08-10 16:52 → S2NX 08-14 17:26
PROVIDERS: Specialist; Student in an Organized Health Care Education/Training Program; Urology; Admitting Provider Student in an Organized Health Care Education/Training Program; Emergency Provider Emergency Medicine; Visit Provider Internal Medicine
PROC: 0DH63UZ Insertion of Feeding Device into Stomach, Percutaneous Approach (ICD-10-PCS; CPT 43246; principal; 2025-08-08 15:00)
DX: J69.0 Pneumonitis due to inhalation of food and vomit (principal); A41.52 Sepsis due to Pseudomonas; J96.22 Acute and chronic respiratory failure with hypercapnia; I21.A1 Myocardial infarction type 2; J96.21 Acute and chronic respiratory failure with hypoxia; I50.32 Chronic diastolic (congestive) heart failure; E87.29 Other acidosis; E87.0 Hyperosmolality and hypernatremia; N30.01 Acute cystitis with hematuria; K92.2 Gastrointestinal hemorrhage, unspecified; E87.1 Hypo-osmolality and hyponatremia; E87.4 Mixed disorder of acid-base balance; J84.10 Pulmonary fibrosis, unspecified; E78.5 Hyperlipidemia, unspecified; E03.9 Hypothyroidism, unspecified; Z79.890 Hormone replacement therapy; I11.0 Hypertensive heart disease with heart failure; K59.09 Other constipation; F32.A Depression, unspecified; E87.5 Hyperkalemia; Z99.81 Dependence on supplemental oxygen; Z79.4 Long term (current) use of insulin; I27.21 Secondary pulmonary arterial hypertension; K21.9 Gastro-esophageal reflux disease without esophagitis; Z74.01 Bed confinement status; E11.9 Type 2 diabetes mellitus without complications; Z85.3 Personal history of malignant neoplasm of breast; R62.7 Adult failure to thrive; B95.7 Other staphylococcus as the cause of diseases classified elsewhere; I46.9 Cardiac arrest, cause unspecified; K22.2 Esophageal obstruction; I48.91 Unspecified atrial fibrillation; I45.10 Unspecified right bundle-branch block; Z66 Do not resuscitate; Z51.5 Encounter for palliative care; Z79.01 Long term (current) use of anticoagulants; E86.1 Hypovolemia; Z79.52 Long term (current) use of systemic steroids; Z79.82 Long term (current) use of aspirin; Z79.899 Other long term (current) drug therapy; Z87.440 Personal history of urinary (tract) infections; I35.8 Other nonrheumatic aortic valve disorders
CPT/HCPCS: 36415; 36600; 51702; 71045; 71250; 74018; 77001; 80048; 80053; 80069; 80162; 80202; 81001; 82140; 82270; 82803; 82947; 83036; 83540; 83550; 83605; 83735; 83880; 84100; 84145; 84295; 84436; 84439; 84443; 84481; 84484; 85014; 85018; 85025; 85610; 85730; 86850; 86900; 86901; 86923; 87040; 87077; 87081; 87086; 87106; 87186; 87205; 87502; 87635; 92526; 92610; 93005; 93225; 93306; 94002; 94003; 94640; 94644; 94660; 94762; 96361; 96365; 99291; 99292; A4314; A4649; A9270; C1769; C1894; J0283; J1120; J1160; J1642; J1644; J1815; J1938; J2247; J2270; J2371; J2470; J2543; J2704; J2919; J3010; J3373; J3375; J3475; J3490; J7042; J7050; J7120; J7512; J7644; J7999; P9016; J7611